=== PATIENT | female | born 1950 | race Caucasian/White ===

== ENCOUNTER 2021-09-09 12:19 | Inpatient (IN) | payer MEDICARE, SELFPAY ==
--- NOTE | 2021-09-09 | ECG_ITS ---
Test Reason : MED CLEARANCE Blood Pressure : / mmHG Vent. Rate : 082 BPM Atrial Rate : 082 BPM P-R Int : 132 ms QRS Dur : 092 ms QT Int : 386 ms P-R-T Axes : 053 055 029 degrees QTc Int : 450 ms Normal sinus rhythm Normal ECG No significant changes seen Referred By: Emmy Euceda Electronically Signed By:LÓPEZ NARVAEZ MD
--- NOTE | ~2021-09-09 | XR_ITS ---
EXAMINATION: XR CHEST CLINICAL INFORMATION: Leukocytosis. COMPARISON: None available. TECHNIQUE: PA view of the chest was obtained. FINDINGS: Normal appearance of the cardiomediastinal silhouette. Clear lungs. There is blunting of the right costophrenic angle which may be due to pleural thickening or trace pleural effusion. No pneumothorax. No acute osseous abnormalities. XR/XR chest 1V IMPRESSION: There is blunting of the right costophrenic angle which may be due to pleural thickening or trace pleural effusion with otherwise clear lungs.
--- NOTE | ~2021-09-09 | CT_ITS ---
EXAMINATION: CT SINUS WITHOUT CONTRAST CLINICAL INFORMATION: Sinus pain. Rule out infection. COMPARISON: None TECHNIQUE: Axial images through the paranasal sinuses. Sagittal and coronal reconstructions on the technologist workstation were performed. This CT examination was performed using dose optimization techniques as appropriate, variously including the following: *Automated exposure control *Adjustment of mA and/or kV according to patient size (this includes techniques or standardized protocols for targeted exams where dose is matched to indication/reason for exam; i.e. extremities or head) *Use of iterative reconstruction technique DLP: 94 mGy-cm FINDINGS: The paranasal sinuses are well aerated and clear. No soft tissue opacification or air-fluid level to suggest sinusitis is seen. The ostiomeatal complexes are patent bilaterally. The nasal septum is deviated to the left. There are mild degenerative changes at the temporomandibular joints. The mastoid air cells and middle ears are clear. The orbits are normal appearing. Visualized intracranial structures are normal. CT/CT sinus wo con IMPRESSION: Clear paranasal sinuses. No evidence of sinusitis.
[2021-09-09 12:23] VITALS: BP 186/106; PULSE 87; RESP 16; TEMP 36.6; O2SAT 100; BMI 23.6
--- NOTE | 2021-09-09 14:03 | ED_ITS ---
HPI - Psych General Chief Complaint: Psychiatric Symptoms Stated Complaint: Crisis Time Seen by Provider: 09/09/21 13:48 Source: patient Mode of arrival: ambulatory History of Present Illness HPI Narrative: 70-year-old female with a past medical history of bipolar, presenting to the ED with increased anxiety and depression with suicidal id eations, increasing thoughts of not wanting to live x1 month. Reports about 1 month ago psychiatrist decrease lithium, denies other medication changes. Last inpatient psychiatric admission 12 years ago. Denies suicidal plan or homicidal ideations. Reports diarrhea/shakiness and decreased appetite. Denies fever, chills, cough, chest pain, shortness of breath, abdominal pain, nausea/vomiting Related Data Home Medications Medication Instructions Recorded Confirmed diazepam 2 mg tablet 1 tab PO BID 09/09/21 estradiol 10 mcg vaginal tablet 1 tab VAGINAL 2XW 09/09/21 (Yuvafem) fluticasone propionate 50 2 spray INTRANASAL DAILY 09/09/21 mcg/actuation nasal spray,suspension lisinopril 10 mg tablet 1 tab PO DAILY 09/09/21 lithium carbonate 150 mg capsule 150 mg PO BEDTIME 09/09/21 lithium carbonate 300 mg capsule 300 mg PO BEDTIME 09/09/21 methylphenidate HCl 10 mg tablet 1 tab PO TID 09/09/21 quetiapine 25 mg tablet 1 tab PO BEDTIME 09/09/21 trazodone 50 mg tablet 1 tab PO BEDTIME 09/09/21 Allergies Allergy/AdvReac Type Severity Reaction Status Date / Time No Known Allergies Allergy Unverified 08/02/20 16:46 Review of Systems Review of Systems: Constitutional: No Fever, + Chills, No Night Sweats, No Fatigue, No Malaise ENT/Mouth: No Ear Pain, No Nasal Congestion, No sore throat, No Swallowing Difficulty Eyes: No Eye Pain Cardiovascular: No Chest Pain, No SOB Respiratory: No Cough, No Dyspnea Gastrointestinal: No Nausea, No Vomiting, + Diarrhea, No Constipation, No Abdominal pain Genitourinary: No Dysuria, No Urinary Frequency, No Hematuria Musculoskeletal: No joint pain, No Myalgias, No Joint Swelling Skin: No Skin Lesions, No rash Neuro: No Weakness, No Numbness, No Headache Psych: + Anxiety, + Depression, + SI, No HI/AH/VH, No Social Issues Yes all other systems are reviewed and are negative [facility] Past Medical History Attestation statement: The following information was validated with the patient. Social History Social History Advance Directives: No Advance Directives Information Provided: Yes Physical Exam Vital Signs: Vital Signs: Last Vital Signs Temp 98.6 F 09/09/21 17:24 Pulse 89 09/09/21 17:24 Resp 19 09/09/21 17:24 BP 198/110 H 09/09/21 17:24 Pulse Ox 96 09/09/21 17:24 Body Mass Index 23.6 Const: Other: Tearful General: cooperative, healthy appearing, no acute distress and anxious Orientation/consciousness: patient oriented x3 Limitations: no limitations HENMT: Head: Yes normal to inspection and Yes atraumatic Ears: hearing grossly normal bilaterally General nose exam: Normal external nose present Face and sinus: Yes normal facial exam Eyes: General: appearance normal, both eyes and all related structures EOM: EOMs intact bilaterally Neck: Neck: Yes normal visual inspection and Yes no meningeal signs Resp: Effort & Inspection: normal respiratory effort Auscultation: clear to auscultation bilaterally, no crackles, no rales, no rhonchi and no wheezes Cardio: Rate: regular rate Heart sounds: S1 normal heart sound present and S2 normal heart sound present GI: Inspection: Yes normal to inspection Palpation (GI): Soft to palpation, nontender, no guarding and not rigid Skin: Rashes: no rashes Wounds: no wounds Neuro: General: patient oriented x3, tone normal and no meningeal signs Gait exam (Neuro): Normal gait present Extrem: General: Yes normal to inspection Psych: Affect: Sad affect present Attitude: cooperative Thought content: Suicidality present and no homicidality Insight: Good insight present (Psych) Judgement: Good judgement present (Psych) Course Course Course Narrative: -1715--leukocytosis of 17.1 likely reactive. Labs otherwise unremarkable, COVID-19 negative > will obtain CXR/UA to rule out infectious etiology -1737--esterase and 5-9 wbc's, will give Ceftin p.o. and obtain lactic/blood c ultures. Low suspicion for severe sepsis. Patient notably hypertensive, med reconciliation to be completed, also reports history of white coat syndrome XR chest 1V IMPRESSION: There is blunting of the right costophrenic angle which may be due to pleural thickening or trace pleural effusion with otherwise clear lungs. > will obtain dry CT chest for further eval -1800--ED care transferred to [facility] pending lactic/blood cultures, BP monitoring and Care team evaluation MDM - Psych MDM Narrative Medical decision making narrative: 70-year-old female with a past medical his tory of bipolar, presenting to the ED with increased anxiety and depression with suicidal ideations, increasing thoughts of not wanting to live x1 month. Reports about 1 month ago psychiatrist decrease lithium, denies other medication changes. On exam hypertensive, anxious, tearful, expressing passive suicidal ideations, exam otherwise nonfocal. Plan: Labs, LINDA, Care Team consult, anticipated admission Medical Records Attestation: I reviewed the patient's medical records. Lab Data Attestation: I reviewed the patient's lab results. Result diagrams: 09/09/21 14:45 09/09/21 14:45 Labs: Lab Results 09/09/21 09/09/21 09/09/21 Range/Units 14:45 14:45 14:45 WBC 17.1 H (4.8-10.8) X10*3/uL RBC 5.42 (4.20-5.50) X10*6/uL Hgb 16.1 H (12.0-16.0) g/dl Hct 50.0 H (37-47) % MCV 92.3 (80-98) fL MCH 29.7 (27.0-33.0) pg MCHC 32.2 (31.0-35.0) g/dl RDW 12.7 (11.0-16.0) % Plt Count 355 (160-400) X10*3/uL MPV 9.8 (9.4-12.3) fL Immature Gran % (Auto) 0.5 H (0.0-0.4) % Neut % (Auto) 88.9 H (45-73) % Lymph % (Auto) 6.2 L (20-40) % [place]ner % (Auto) 4.0 (2-11) % Eos % (Auto) 0.2 (0-4) % Baso % (Auto) 0.2 (0-2) % Lymph # (Auto) 1.1 L (1.2-4.9) X10*3/uL Bonner # (Auto) 0.7 (0.1-1.2) X10*3/uL Eos # (Auto) 0.0 (0.0-0.4) X10*3/uL Baso # (Auto) 0.0 (0.0-0.2) X10*3/uL Abs Immat Gran (auto) 0.09 H (0.00-0.03) X10*3/uL Absolute Neuts (auto) 15.2 H (2.0-8.3) X10*3/uL Absolute Nucleated RBC 0.000 (0.0-0.012) X10*3/uL Nucleated RBC % (auto) 0.0 (0.0-0.2) /100WBC Sodium 141 (135-145) mmol/L Potassium 4.8 (3.3-5.1) mmol/L Chloride 107 (96-108) mmol/L Carbon Dioxide 26 (22-29) mmol/L Anion Gap 13 (12-20) BUN 12 (9-16) mg/dL Creatinine 0.83 (0.5-1.4) mg/dL Estim Creat Clear Calc 46.8 Estimated GFR > 60 Random Glucose 119 H (60-115) mg/dL Calcium 10.5 H (8.4-10.2) mg/dL Magnesium 2.4 (1.6-2.6) mg/dL Total Bilirubin 0.3 (0.0-1.0) mg/dL Direct Bilirubin < 0.2 (0.0-0.5) mg/dL AST 19 (5-31) U/L ALT 21 (0-31) U/L Alkaline Phosphatase 119 H (39-117) U/L Total Protein 6.9 (6.5-8.0) g/dL Albumin 4.3 (3.5-5.0) g/dL Urine Color Urine Appearance Urine pH (5.0-8.0) Ur Specific [place] (1.005-1.025) Urine Protein (NEG-TRACE) MG/DL Urine Glucose (UA) (NEG) MG/DL Urine Ketones (NEG) MG/DL Urine Blood (NEG) Urine Nitrite (NEG) Ur Leukocyte Esterase (NEG) Urine RBC (0) /HPF Urine WBC (0-4) /HPF Ur Squamous Epith Cells /LPF Urine Bacteria /LPF Urine Opiates Screen (Not Detect) Urine Fentanyl Screen (Not Detect) Ur Barbiturates Screen (Not Detect) Ur Phencyclidine Scrn (Not Detect) Ur Amphetamines Screen (Not Detect) U Benzodiazepines Scrn (Not Detect) [place] 0.52 L (0.60-1.20) mmol/L Urine Cocaine Screen (Not Detect) U Marijuana (THC) Screen (Not Detect) COVID-19 (REE) (Negative) COVID-19 Clin Com 09/09/21 09/09/21 09/09/21 Range/Units 14:45 16:56 16:56 WBC (4.8-10.8) X10*3/uL RBC (4.20-5.50) X10*6/uL Hgb (12.0-16.0) g/dl Hct (37-47) % MCV (80-98) fL MCH (27.0-33.0) pg MCHC (31.0-35.0) g/dl RDW (11.0-16.0) % Plt Count (160-400) X10*3/uL MPV (9.4-12.3) fL Immature Gran % (Auto) (0.0-0.4) % Neut % (Auto) (45-73) % Lymph % (Auto) (20-40) % [place]ner % (Auto) (2-11) % Eos % (Auto) (0-4) % Baso % (Auto) (0-2) % Lymph # (Auto) (1.2-4.9) X10*3/uL [place]ner # (Auto) (0.1-1.2) X10*3/uL Eos # (Auto) (0.0-0.4) X10*3/uL Baso # (Auto) (0.0-0.2) X10*3/uL Abs Immat Gran (auto) (0.00-0.03) X10*3/uL Absolute Neuts (auto) (2.0-8.3) X10*3/uL Absolute Nucleated RBC (0.0-0.012) X10*3/uL Nucleated RBC % (auto) (0.0-0.2) /100WBC Sodium (135-145) mmol/L Potassium (3.3-5.1) mmol/L Chloride (96-108) mmol/L Carbon Dioxide (22-29) mmol/L Anion Gap (12-20) BUN (9-16) mg/dL Creatinine (0.5-1.4) mg/dL Estim Creat Clear Calc Estimated GFR Random Glucose (60-115) mg/dL Calcium (8.4-10.2) mg/dL Magnesium (1.6-2.6) mg/dL Total Bilirubin (0.0-1.0) mg/dL Direct Bilirubin (0.0-0.5) mg/dL AST (5-31) U/L ALT (0-31) U/L Alkaline Phosphatase (39-117) U/L Total Protein (6.5-8.0) g/dL Albumin (3.5-5.0) g/dL Urine Color YELLOW Urine Appearance CLEAR Urine pH 6.0 (5.0-8.0) Ur Specific [place] 1.015 (1.005-1.025) Urine Protein NEG (NEG-TRACE) MG/DL Urine Glucose (UA) NEG (NEG) MG/DL Urine Ketones NEG (NEG) MG/DL Urine Blood NEG (NEG) Urine Nitrite NEG (NEG) Ur Leukocyte Esterase TRACE H (NEG) Urine RBC 1-4 (0) /HPF Urine WBC 5-9 H (0-4) /HPF Ur Squamous Epith Cells 1+ /LPF Urine Bacteria 1+ /LPF Urine Opiates Screen Not Detected (Not Detect) Urine Fentanyl Screen Not Detected (Not Detect) Ur Barbiturates Screen Not Detected (Not Detect) Ur Phencyclidine Scrn Not Detected (Not Detect) Ur Amphetamines Screen Not Detected (Not Detect) U Benzodiazepines Scrn POSITIVE H (Not Detect) [place] (0.60-1.20) mmol/L Urine Cocaine Screen Not Detected (Not Detect) U Marijuana (THC) Screen POSITIVE H (Not Detect) COVID-19 (REE) Negative (Negative) COVID-19 Clin Com See Note Discharge Plan Discharge Clinical Impression: Suicidal ideation, Acute anxiety Depression Qualifiers: Depression Type: unspecified Qualified Code(s): F32.A - Depression, unspecified Prescriptions: No Action quetiapine 25 mg tablet 1 tab PO BEDTIME RF: 0 trazodone 50 mg tablet 1 tab PO BEDTIME RF: 0 methylphenidate HCl 10 mg tablet 1 tab PO TID RF: 0 lithium carbonate 150 mg capsule 150 mg PO BEDTIME RF: 0 diazepam 2 mg tablet 1 tab PO BID RF: 0 lithium carbonate 300 mg capsule 300 mg PO BEDTIME RF: 0 lisinopril 10 mg tablet 1 tab PO DAILY RF: 0 fluticasone propionate 50 mcg/actuation spray,suspension 2 spray intranasal DAILY RF: 0 estradiol [Yuvafem] 10 mcg tablet 1 tab vaginal 2XW RF: 0
--- NOTE | 2021-09-09 14:19 | PC.NURSE ---
patient reports an agitated depression which she first encountered 12 years ago. states consistent on current meds, says this change occurred about a month ago when she also had her lithium decreased. reports poor sleep during that time. reports thoughts of passive SI (no plan/method) states uses [facility] on [facility] patient stated stopped/reduced taking ritalin. reports racing thoughts.
[2021-09-09 14:50] LABS: MANUAL DIFF FLAG NO
[2021-09-09 14:54] LABS: Basophils Percent Auto 0.2 % (0-2); Eosinophils Percent Auto 0.2 % (0-4); Hemoglobin 16.1 g/dl (12.0-16.0); Imm Gran Abs Auto 0.09 X10*3/uL (0.00-0.03); Imm Gran Pct Auto 0.5 % (0.0-0.4); Lymphocytes Absolute Auto 1.1 X10*3/uL (1.2-4.9); Lymphocytes Percent Auto 6.2 % (20-40); Mean Corpuscular HGB Conc 32.2 g/dl (31.0-35.0); Mean Corpuscular Hemoglobin 29.7 pg (27.0-33.0); Mean Corpuscular Volume 92.3 fL (80-98); Mean Platelet Volume 9.8 fL (9.4-12.3); Monocytes Absolute Auto 0.7 X10*3/uL (0.1-1.2); Neutrophils Absolute Auto 15.2 X10*3/uL (2.0-8.3); Neutrophils Percent Auto 88.9 % (45-73); Platelet Count 355 X10*3/uL (160-400); Red Blood Count 5.42 X10*6/uL (4.20-5.50); Red Cell Distribution Width 12.7 % (11.0-16.0); White Blood Count 17.1 X10*3/uL (4.8-10.8)
[2021-09-09 15:02] LABS: Lithium 0.52 mmol/L (0.60-1.20)
[2021-09-09 15:09] LABS: COVID-19 Test Negative (Negative); IDNOW Serial# 9DD0AD1C
[2021-09-09 15:10] LABS: Alanine Aminotransferase 21 U/L (0-31); Albumin Level 4.3 g/dL (3.5-5.0); Alkaline Phosphatase 119 U/L (39-117); Anion Gap 13 (12-20); Aspartate Amino Transferase 19 U/L (5-31); Bilirubin Direct < 0.2 mg/dL (0.0-0.5); Bilirubin Total 0.3 mg/dL (0.0-1.0); Blood Urea Nitrogen 12 mg/dL (9-16); Calcium 10.5 mg/dL (8.4-10.2); Carbon Dioxide 26 mmol/L (22-29); Chloride 107 mmol/L (96-108); Creatinine Clr Calc Pharmacy 46.8; Estimated Glomerular Filt Rate > 60; Glucose Random 119 mg/dL (60-115); Magnesium 2.4 mg/dL (1.6-2.6); Potassium 4.8 mmol/L (3.3-5.1); Sodium 141 mmol/L (135-145); Total Protein 6.9 g/dL (6.5-8.0)
[2021-09-09 17:17] LABS: Amphetamine Screen Urine Not Detected (Not Detect); Appearance Urine CLEAR; Barbiturates, Urine Not Detected (Not Detect); Benzodiazepines Screen Urine POSITIVE (Not Detect); Cannabinoid Screen Urine POSITIVE (Not Detect); Cocaine Screen Urine Not Detected (Not Detect); Color Urine YELLOW; Fentanyl, urine Not Detected (Not Detect); Glucose Urine UA NEG (NEG); Leukocyte Esterase Urine TRACE (NEG); Nitrite Urine NEG (NEG); Opiate Screen Urine Not Detected (Not Detect); Phencyclidine Screen Urine Not Detected (Not Detect); Specific Gravity - Urine 1.015 (1.005-1.025); UACC Culture Trigger YES; Urine Blood NEG (NEG); Urine Ketones NEG (NEG); Urine Protein NEG (NEG-TRACE)
[2021-09-09 17:24] VITALS: BP 198/110; PULSE 89; RESP 19; TEMP 37; O2SAT 96
[2021-09-09 17:25] LABS: UACC CULT YES
[2021-09-09 17:26] LABS: Bacteria Urine 1+ /LPF; Squamous Epithelial Cell Urine 1+ /LPF
--- NOTE | 2021-09-09 18:24 | PHA.MEDREC ---
Pharmacy Consult ? Medication Reconciliation Pharmacy has completed the medication reconciliation. Patient reports no longer taking methylphedinate because it was making her have anxiety depression. She reports she stopped taking trazodone because it caused bad dreams. Her dose of lithium was increase from 300 mg to 450 mg. She reports taking Prosac. It was last filled in 10/2020 for 3 tablets a day. If she was only take one tab it is possible for her to still have the medications therefore she is no aderent. Maggie Marrero, PharmD
[2021-09-09 18:26] VITALS: BP 198/110; PULSE 97
[2021-09-09] MEDS: lisinopriL 10 MG TABLET PO (18:26)
[2021-09-09] MEDS: Acetaminophen 325 MG TABLET 975 MG PO (18:35)
[2021-09-09] MEDS: diazePAM 2 MG TABLET PO (18:35)
[2021-09-09 18:40] LABS: Lactic Acid 1.1 mmol/L (0.5-2.0)
--- NOTE | 2021-09-09 21:16 | HO.PSYADMNOT ---
Documented by User: Aileen Villareal NP 09/10/21 05:53 HPI Date of Service: 09/09/21 Chief Complaint: Crisis Sources of Information: patient interviewed, chart reviewed and crisis/core team assessment reviewed HPI Subjective Notes: [place] Warning and Conditional Voluntary Healthcare Proxy: No Guardianship: No Medical Problems Affecting Mental Status: No Narrative: Pt is a 70 year old female who carries a diagnosis of bipolar II disorder, ADHD, presenting to the ED on 09/10/21 with increased anxiety and depression, SI x 1 month, low appetite, and hyposomnia. Precipitating factors include that her lithium was decreased about a month ago in context of CKD and HTN, on lisinopril (may increase blood levels of lithium). Per U/A, pt found to have UTI, started on ceftin. [place] level 0.52.? I evaluated the pt this evening and upon inquiry she reports poor sleep and increased anxiety, feels ?nick shaky.? Says she was recently started on seroquel, prior to that was using trazodone but reports it stopped working due to exacerbation in sx. She was also taking methylphenidate but says she felt agitated and ?I wasn?t feeling good, it was not holding me up,? felt jittery and stopped taking it.?Pt reports she currently feels safe on the unit and denies SI or urges to self harm upon inquiry. Past Psychiatric History: Past meds: trazodone, methylphenidate -Remote hx of IPLOC 12 yrs ago. Medical Evaluation Reviewed: Yes [facility] Narrative: -Pt reports hx of hypertension, chronic kidney disease Social History: -Lives with her . Volunteers at [employer]. Substance History: -Cannabis: uses 3-4 nights a week, uses edibles or vapes from dispensary. Diagnostics Vital Signs (24Hr): Vital Signs - 24 hr 09/09/21 12:23 09/09/21 17:24 09/09/21 18:26 Temperature 98 F 98.6 F Pulse Rate 87 89 97 Respiratory Rate 16 19 Blood Pressure 186/106 H 198/110 H 198/110 H Pulse Oximetry 100 96 Body Mass Index 23.6 Labs Results: 09/09/21 14:45 09/09/21 14:45 Labs: Laboratory Results - last 48 hr 09/09/21 09/09/21 09/09/21 14:45 14:45 14:45 WBC 17.1 H RBC 5.42 Hgb 16.1 H Hct 50.0 H MCV 92.3 MCH 29.7 MCHC 32.2 RDW 12.7 Plt Count 355 MPV 9.8 Immature Gran % (Auto) 0.5 H Neut % (Auto) 88.9 H Lymph % (Auto) 6.2 L [place] % (Auto) 4.0 Eos % (Auto) 0.2 Baso % (Auto) 0.2 Lymph # (Auto) 1.1 L [place] # (Auto) 0.7 Eos # (Auto) 0.0 Baso # (Auto) 0.0 Abs Immat Gran (auto) 0.09 H Absolute Neuts (auto) 15.2 H Absolute Nucleated RBC 0.000 Nucleated RBC % (auto) 0.0 Sodium 141 Potassium 4.8 Chloride 107 Carbon Dioxide 26 Anion Gap 13 BUN 12 Creatinine 0.83 Estim Creat Clear Calc 46.8 Estimated GFR > 60 Random Glucose 119 H Lactic Acid Calcium 10.5 H Magnesium 2.4 Total Bilirubin 0.3 Direct Bilirubin < 0.2 AST 19 ALT 21 Alkaline Phosphatase 119 H Total Protein 6.9 Albumin 4.3 Urine Color Urine Appearance Urine pH Ur Specific [place] Urine Protein Urine Glucose (UA) Urine Ketones Urine Blood Urine Nitrite Ur Leukocyte Esterase Urine RBC Urine WBC Ur Squamous Epith Cells Urine Bacteria Urine Opiates Screen Urine Fentanyl Screen Ur Barbiturates Screen Ur Phencyclidine Scrn Ur Amphetamines Screen U Benzodiazepines Scrn [place] 0.52 L Urine Cocaine Screen U Marijuana (THC) Screen COVID-19 (REE) COVID-19 Clin Com 09/09/21 09/09/21 09/09/21 14:45 16:56 16:56 WBC RBC Hgb Hct MCV MCH MCHC RDW Plt Count MPV Immature Gran % (Auto) Neut % (Auto) Lymph % (Auto) [place] % (Auto) Eos % (Auto) Baso % (Auto) Lymph # (Auto) [place] # (Auto) Eos # (Auto) Baso # (Auto) Abs Immat Gran (auto) Absolute Neuts (auto) Absolute Nucleated RBC Nucleated RBC % (auto) Sodium Potassium Chloride Carbon Dioxide Anion Gap BUN Creatinine Estim Creat Clear Calc Estimated GFR Random Glucose Lactic Acid Calcium Magnesium Total Bilirubin Direct Bilirubin AST ALT Alkaline Phosphatase Total Protein Albumin Urine Color YELLOW Urine Appearance CLEAR Urine pH 6.0 Ur Specific [place] 1.015 Urine Protein NEG Urine Glucose (UA) NEG Urine Ketones NEG Urine Blood NEG Urine Nitrite NEG Ur Leukocyte Esterase TRACE H Urine RBC 1-4 Urine WBC 5-9 H Ur Squamous Epith Cells 1+ Urine Bacteria 1+ Urine Opiates Screen Not Detected Urine Fentanyl Screen Not Detected Ur Barbiturates Screen Not Detected Ur Phencyclidine Scrn Not Detected Ur Amphetamines Screen Not Detected U Benzodiazepines Scrn POSITIVE H [place] Urine Cocaine Screen Not Detected U Marijuana (THC) Screen POSITIVE H COVID-19 (REE) Negative COVID-19 Clin Com See Note 09/09/21 18:23 WBC RBC Hgb Hct MCV MCH MCHC RDW Plt Count MPV Immature Gran % (Auto) Neut % (Auto) Lymph % (Auto) [place] % (Auto) Eos % (Auto) Baso % (Auto) Lymph # (Auto) [place] # (Auto) Eos # (Auto) Baso # (Auto) Abs Immat Gran (auto) Absolute Neuts (auto) Absolute Nucleated RBC Nucleated RBC % (auto) Sodium Potassium Chloride Carbon Dioxide Anion Gap BUN Creatinine Estim Creat Clear Calc Estimated GFR Random Glucose Lactic Acid 1.1 Calcium Magnesium Total Bilirubin Direct Bilirubin AST ALT Alkaline Phosphatase Total Protein Albumin Urine Color Urine Appearance Urine pH Ur Specific [place] Urine Protein Urine Glucose (UA) Urine Ketones Urine Blood Urine Nitrite Ur Leukocyte Esterase Urine RBC Urine WBC Ur Squamous Epith Cells Urine Bacteria Urine Opiates Screen Urine Fentanyl Screen Ur Barbiturates Screen Ur Phencyclidine Scrn Ur Amphetamines Screen U Benzodiazepines Scrn [place] Urine Cocaine Screen U Marijuana (THC) Screen COVID-19 (REE) COVID-19 Clin Com Imaging Radiology Impressions: ITS Impressions Chest X-Ray 09/09/21 17:15 IMPRESSION: There is blunting of the right costophrenic angle which may be due to pleural thickening or trace pleural effusion with otherwise clear lungs. Meds/Allergies Meds Home Medications Acetaminophen (Acetaminophen 325 Mg Tablet) 650 mg PO Q6H PRN PRN Reason: Headache/Pain Mild Scale (1-3) Al Hydroxide/Mg Hydroxide (Magnesium Hydrox/Alum Hydrox 30 Ml Oral.Susp) 30 ml PO Q6H PRN PRN Reason: Heartburn/Nausea Ascorbic Acid (Ascorbic Acid 500 Mg Tablet) 2,000 mg PO DAILY [facility] Last Admin: 09/10/21 08:30 Dose: 2,000 mg Documented by: Benzocaine (Throat Lozenge, Medicated Lozenge) 1 lozenge MUCOUS MEM Q2H PRN PRN Reason: Sore Throat Calcium Carbonate (Calcium Carbonate 500 Mg Tablet) 1,000 mg PO DAILY [facility] Last Admin: 09/10/21 08:31 Dose: 1,000 mg Documented by: Cefuroxime Axetil (Cefuroxime Axetil 250 Mg Tablet) 250 mg PO Q12H [facility] Stop: 09/16/21 17:59 Last Admin: 09/10/21 06:15 Dose: 250 mg Documented by: Diazepam (Diazepam 2 Mg Tablet) 2 mg PO Q6H PRN PRN Reason: anxiety Last Admin: 09/10/21 14:05 Dose: 2 mg Documented by: Diazepam (Diazepam 2 Mg Tablet) 2 mg PO BID PRN PRN Reason: Anxiety Last Admin: 09/10/21 08:29 Dose: 2 mg Documented by: Fluoxetine HCl (Fluoxetine Hcl 20 Mg Capsule) 40 mg PO DAILY [facility] Last Admin: 09/10/21 08:29 Dose: 40 mg Documented by: Fluticasone Propionate (Fluticasone Propionate Nasal 16 Gm [place]) 1 spray NOSTRIL-B BID [facility] Last Admin: 09/10/21 11:26 Dose: 1 spray Documented by: Hydroxyzine HCl (Hydroxyzine Hcl 25 Mg Tablet) 25 mg PO Q6H PRN PRN Reason: Anxiety Last Admin: 09/10/21 11:26 Dose: 25 mg Documented by: Lisinopril (Lisinopril 10 Mg Tablet) 10 mg PO DAILY [facility]; Protocol Last Admin: 09/10/21 08:31 Dose: 10 mg Documented by: [place] Carbonate ([place] Carbonate 300 Mg Tablet) 150 mg PO BEDTIME [facility] [place] Carbonate ([place] Carbonate 300 Mg Capsule) 300 mg PO BEDTIME [facility] Last Admin: 09/09/21 23:48 Dose: 300 mg Documented by: Magnesium Hydroxide (Milk Of Magnesia 30 Ml Oral.Susp) 30 ml PO DAILY PRN PRN Reason: Constipation Non-Formulary Medication (Estradiol [Yuvafem]) 1 tab VAGINAL WESA [facility] Quetiapine Fumarate (Quetiapine Fumarate 25 Mg Tablet) 25 mg PO BEDTIME [facility] Last Admin: 09/09/21 23:48 Dose: 25 mg Documented by: Trazodone HCl (Trazodone Hcl 50 Mg Tablet) 50 mg PO BEDTIME PRN PRN Reason: Insomnia Vitamin E (Vitamin E (Dl,Tocopheryl Acet) 180 Mg (400 Unit) Capsule) 180 mg PO DAILY [facility] Last Admin: 09/10/21 08:30 Dose: 180 mg Documented by: Allergies Allergies Allergy/AdvReac Type Severity Reaction Status Date / Time No Known Allergies Allergy Unverified 08/02/20 16:46 Mental Status Exam Mental Status Exam Narrative: A&O. Casual dress, good hygiene, normal body habitus. Good eye contact, attentive. No Tics or Tremors. No abnormal involuntary movements. Calm, somewhat guarded and difficulty engaging due to increased anxiety. Non-pressured speech, spontaneous with regular rate and rhythm, normal volume and prosody. No prolonged speech latency or dysarthria. Mood is ?anxious, tired,? affect is tired, nervous. Denies SI/SIB/HI upon inquiry. Denies A/VH or delusional thought content. Thoughts are coherent, organized. No known cognitive or memory impairment. Insight/ Judgment fair and adequate. Assessment & Plan Assessment & Plan (1) Bipolar II disorder: Status: Acute Code(s): F31.81 - Bipolar II disorder (2) ADHD (attention deficit hyperactivity disorder): Status: Acute Code(s): F90.9 - Attention-deficit hyperactivity disorder, unspecified type Assessment and Plan: Pt is a 70 year old female who carries a diagnosis of bipolar II disorder, ADHD, presenting to the ED on 09/10/21 with increased anxiety and depression, SI x 1 month, low appetite, and hyposomnia. Precipitating factors include that her lithium was decreased about a month ago. Pt is currently presenting with sx of hyposomnia, anxious affect, agitation, low appetite, perseverative thought content, and feelings of hopelessness. Plan: Pt does not want medication changes this evening, utilized her PRN diazepam and is hoping to fall asleep. She expressed interest in increasing lithium to target sx of agitated depression, will defer to primary psych team in the morning. Monitor response to medications. Monitor for safety in the milieu. Discharge on stabilization. Patient seen. Chart reviewed. Discussed with team. Obtain collateral contact info?as needed Reason for continued inpatient stay Substantial Risk for: harm to self, rapid decompensation and med/psych decompensation Documented by User: Yovany Shearer MD 09/10/21 15:26 HPI Chief Complaint: Crisis Diagnostics Labs Results: 09/09/21 14:45 09/09/21 14:45 Meds/Allergies Meds Home Medications Acetaminophen (Acetaminophen 325 Mg Tablet) 650 mg PO Q6H PRN PRN Reason: Headache/Pain Mild Scale (1-3) Al Hydroxide/Mg Hydroxide (Magnesium Hydrox/Alum Hydrox 30 Ml Oral.Susp) 30 ml PO Q6H PRN PRN Reason: Heartburn/Nausea Ascorbic Acid (Ascorbic Acid 500 Mg Tablet) 2,000 mg PO DAILY [facility] Last Admin: 09/10/21 08:30 Dose: 2,000 mg Documented by: Benzocaine (Throat Lozenge, Medicated Lozenge) 1 lozenge MUCOUS MEM Q2H PRN PRN Reason: Sore Throat Calcium Carbonate (Calcium Carbonate 500 Mg Tablet) 1,000 mg PO DAILY [facility] Last Admin: 09/10/21 08:31 Dose: 1,000 mg Documented by: Cefuroxime Axetil (Cefuroxime Axetil 250 Mg Tablet) 250 mg PO Q12H [facility] Stop: 09/16/21 17:59 Last Admin: 09/10/21 06:15 Dose: 250 mg Documented by: Diazepam (Diazepam 2 Mg Tablet) 2 mg PO Q6H PRN PRN Reason: anxiety Last Admin: 09/10/21 14:05 Dose: 2 mg Documented by: Diazepam (Diazepam 2 Mg Tablet) 2 mg PO BID PRN PRN Reason: Anxiety Last Admin: 09/10/21 08:29 Dose: 2 mg Documented by: Fluoxetine HCl (Fluoxetine Hcl 20 Mg Capsule) 40 mg PO DAILY [facility] Last Admin: 09/10/21 08:29 Dose: 40 mg Documented by: Fluticasone Propionate (Fluticasone Propionate Nasal 16 Gm [place]) 1 spray NOSTRIL-B BID [facility] Last Admin: 09/10/21 11:26 Dose: 1 spray Documented by: Hydroxyzine HCl (Hydroxyzine Hcl 25 Mg Tablet) 25 mg PO Q6H PRN PRN Reason: Anxiety Last Admin: 09/10/21 11:26 Dose: 25 mg Documented by: Lisinopril (Lisinopril 10 Mg Tablet) 10 mg PO DAILY [facility]; Protocol Last Admin: 09/10/21 08:31 Dose: 10 mg Documented by: [place] Carbonate ([place] Carbonate 300 Mg Tablet) 150 mg PO BEDTIME [facility] [place] Carbonate ([place] Carbonate 300 Mg Capsule) 300 mg PO BEDTIME [facility] Last Admin: 09/09/21 23:48 Dose: 300 mg Documented by: Magnesium Hydroxide (Milk Of Magnesia 30 Ml Oral.Susp) 30 ml PO DAILY PRN PRN Reason: Constipation Non-Formulary Medication (Estradiol [Yuvafem]) 1 tab VAGINAL WESA [facility] Quetiapine Fumarate (Quetiapine Fumarate 25 Mg Tablet) 25 mg PO BEDTIME [facility] Last Admin: 09/09/21 23:48 Dose: 25 mg Documented by: Trazodone HCl (Trazodone Hcl 50 Mg Tablet) 50 mg PO BEDTIME PRN PRN Reason: Insomnia Vitamin E (Vitamin E (Dl,Tocopheryl Acet) 180 Mg (400 Unit) Capsule) 180 mg PO DAILY [facility] Last Admin: 09/10/21 08:30 Dose: 180 mg Documented by: Allergies Allergies Allergy/AdvReac Type Severity Reaction Status Date / Time No Known Allergies Allergy Unverified 08/02/20 16:46 Assessment & Plan Assessment & Plan (1) Bipolar II disorder: Status: Acute Code(s): F31.81 - Bipolar II disorder (2) ADHD (attention deficit hyperactivity disorder): Status: Acute Code(s): F90.9 - Attention-deficit hyperactivity disorder, unspecified type Patient educated on: diagnosis and medication risk/benefits Informed Consent: understands
[2021-09-09 22:56] VITALS: BMI 21.3
[2021-09-09 23:44] VITALS: BP 227/105; PULSE 75; RESP 18; TEMP 37.3; O2SAT 93
[2021-09-09] MEDS: QUEtiapine Fumarate 25 MG TABLET PO (23:48)
[2021-09-09] MEDS: Lithium Carbonate 300 MG CAPSULE PO (23:48)
[2021-09-10 06:00] VITALS: BP 219/93; PULSE 92; RESP 14; TEMP 36.4; O2SAT 96
[2021-09-10] MEDS: FLUoxetine HCl 20 MG CAPSULE 40 MG PO (08:29)
[2021-09-10] MEDS: diazePAM 2 MG TABLET PO ×3 (08:29→19:06)
[2021-09-10] MEDS: Ascorbic Acid 500 MG TABLET 2000 MG PO (08:30)
[2021-09-10] MEDS: Vitamin E (Dl,Tocopheryl Acet) 180 MG (400 UNIT) CAPSULE PO (08:30)
[2021-09-10 08:31] VITALS: BP 219/93; PULSE 92
[2021-09-10] MEDS: lisinopriL 10 MG TABLET PO (08:31)
[2021-09-10] MEDS: Fluticasone Propionate Nasal 16 GM SPRAY 1 SPRAY NOSTRIL-B ×2 (11:26→21:28)
[2021-09-10] MEDS: hydrOXYzine HCL 25 MG TABLET PO (11:26)
--- NOTE | 2021-09-10 15:26 | HO.PSYCHPN ---
Subjective Subjective Date of Service: 09/10/21 Reason For Visit: severe depression and agitation Subjective Notes: Conditional Voluntary Guardianship: No Medical Problems Affecting Mental Status: Yes Interim History: pt with severe anxiety irritability and racing thoughts has been preoccupied with physical symptoms Medication Compliance: Yes Side effects from medications: No Review of Systems Review of Systems increase mucous throat clearing Constitutional: Reports as per HPI, Reports difficulty sleeping and Reports excessive sweating Comments: Endocrine: Reports excessive sweating Mental Status Exam Mental Status Exam Narrative: The patient is casually dressed somewhat diaphoretic anxious in appearance. She is ruminating that she cannot stand has she is feeling at times wishes she were denies plan or intent in this setting. No hallucinations or delusional material but constant feeling that something is wrong with her constant throat clearing and somatic preoccupation. Mood is severely depressed anxious periods of restlessness. Poor sleep impulse control intact in this setting but quite distraught impaired of not in lock setting periods of intense hopelessness and helplessness she is asking for help impaired concentration Diagnostics Vital Signs (24Hr): Vital Signs - 24 hr 09/09/21 17:24 09/09/21 18:26 09/09/21 23:44 Temperature 98.6 F 99.2 F Pulse Rate 89 97 75 Respiratory Rate 19 18 Blood Pressure 198/110 H 198/110 H 227/105 H Pulse Oximetry 96 93 09/10/21 06:00 09/10/21 08:31 Temperature 97.6 F Pulse Rate 92 92 Respiratory Rate 14 Blood Pressure 219/93 H 219/93 H Pulse Oximetry 96 Body Mass Index 21.3 Labs Results: 09/09/21 14:45 09/09/21 14:45 Labs: Laboratory Results - last 48 hr 09/09/21 09/09/21 09/09/21 14:45 14:45 14:45 WBC 17.1 H RBC 5.42 Hgb 16.1 H Hct 50.0 H MCV 92.3 MCH 29.7 MCHC 32.2 RDW 12.7 Plt Count 355 MPV 9.8 Immature Gran % (Auto) 0.5 H Neut % (Auto) 88.9 H Lymph % (Auto) 6.2 L [place] % (Auto) 4.0 Eos % (Auto) 0.2 Baso % (Auto) 0.2 Lymph # (Auto) 1.1 L [place] # (Auto) 0.7 Eos # (Auto) 0.0 Baso # (Auto) 0.0 Abs Immat Gran (auto) 0.09 H Absolute Neuts (auto) 15.2 H Absolute Nucleated RBC 0.000 Nucleated RBC % (auto) 0.0 Sodium 141 Potassium 4.8 Chloride 107 Carbon Dioxide 26 Anion Gap 13 BUN 12 Creatinine 0.83 Estim Creat Clear Calc 46.8 Estimated GFR > 60 Random Glucose 119 H Lactic Acid Calcium 10.5 H Magnesium 2.4 Total Bilirubin 0.3 Direct Bilirubin < 0.2 AST 19 ALT 21 Alkaline Phosphatase 119 H Total Protein 6.9 Albumin 4.3 Urine Color Urine Appearance Urine pH Ur Specific [place] Urine Protein Urine Glucose (UA) Urine Ketones Urine Blood Urine Nitrite Ur Leukocyte Esterase Urine RBC Urine WBC Ur Squamous Epith Cells Urine Bacteria Urine Opiates Screen Urine Fentanyl Screen Ur Barbiturates Screen Ur Phencyclidine Scrn Ur Amphetamines Screen U Benzodiazepines Scrn [place] 0.52 L Urine Cocaine Screen U Marijuana (THC) Screen COVID-19 (REE) COVID-19 [employer] Com 09/09/21 09/09/21 09/09/21 14:45 16:56 16:56 WBC RBC Hgb Hct MCV MCH MCHC RDW Plt Count MPV Immature Gran % (Auto) Neut % (Auto) Lymph % (Auto) [place] % (Auto) Eos % (Auto) Baso % (Auto) Lymph # (Auto) [place] # (Auto) Eos # (Auto) Baso # (Auto) Abs Immat Gran (auto) Absolute Neuts (auto) Absolute Nucleated RBC Nucleated RBC % (auto) Sodium Potassium Chloride Carbon Dioxide Anion Gap BUN Creatinine Estim Creat Clear Calc Estimated GFR Random Glucose Lactic Acid Calcium Magnesium Total Bilirubin Direct Bilirubin AST ALT Alkaline Phosphatase Total Protein Albumin Urine Color YELLOW Urine Appearance CLEAR Urine pH 6.0 Ur Specific [place] 1.015 Urine Protein NEG Urine Glucose (UA) NEG Urine Ketones NEG Urine Blood NEG Urine Nitrite NEG Ur Leukocyte Esterase TRACE H Urine RBC 1-4 Urine WBC 5-9 H Ur Squamous Epith Cells 1+ Urine Bacteria 1+ Urine Opiates Screen Not Detected Urine Fentanyl Screen Not Detected Ur Barbiturates Screen Not Detected Ur Phencyclidine Scrn Not Detected Ur Amphetamines Screen Not Detected U Benzodiazepines Scrn POSITIVE H [place] Urine Cocaine Screen Not Detected U Marijuana (THC) Screen POSITIVE H COVID-19 (REE) Negative COVID-19 Clin Com See Note 09/09/21 18:23 WBC RBC Hgb Hct MCV MCH MCHC RDW Plt Count MPV Immature Gran % (Auto) Neut % (Auto) Lymph % (Auto) [place] % (Auto) Eos % (Auto) Baso % (Auto) Lymph # (Auto) [place] # (Auto) Eos # (Auto) Baso # (Auto) Abs Immat Gran (auto) Absolute Neuts (auto) Absolute Nucleated RBC Nucleated RBC % (auto) Sodium Potassium Chloride Carbon Dioxide Anion Gap BUN Creatinine Estim Creat Clear Calc Estimated GFR Random Glucose Lactic Acid 1.1 Calcium Magnesium Total Bilirubin Direct Bilirubin AST ALT Alkaline Phosphatase Total Protein Albumin Urine Color Urine Appearance Urine pH Ur Specific [place] Urine Protein Urine Glucose (UA) Urine Ketones Urine Blood Urine Nitrite Ur Leukocyte Esterase Urine RBC Urine WBC Ur Squamous Epith Cells Urine Bacteria Urine Opiates Screen Urine Fentanyl Screen Ur Barbiturates Screen Ur Phencyclidine Scrn Ur Amphetamines Screen U Benzodiazepines Scrn [place] Urine Cocaine Screen U Marijuana (THC) Screen COVID-19 (REE) COVID-19 Clin Com Imaging Radiology Impressions: ITS Impressions Chest X-Ray 09/09/21 17:15 IMPRESSION: There is blunting of the right costophrenic angle which may be due to pleural thickening or trace pleural effusion with otherwise clear lungs. Medications Medications Current Medications Acetaminophen (Acetaminophen 325 Mg Tablet) 650 mg PO Q6H PRN PRN Reason: Headache/Pain Mild Scale (1-3) Al Hydroxide/Mg Hydroxide (Magnesium Hydrox/Alum Hydrox 30 Ml Oral.Susp) 30 ml PO Q6H PRN PRN Reason: Heartburn/Nausea Ascorbic Acid (Ascorbic Acid 500 Mg Tablet) 2,000 mg PO DAILY [facility] Last Admin: 09/10/21 08:30 Dose: 2,000 mg Documented by: Benzocaine (Throat Lozenge, Medicated Lozenge) 1 lozenge MUCOUS MEM Q2H PRN PRN Reason: Sore Throat Calcium Carbonate (Calcium Carbonate 500 Mg Tablet) 1,000 mg PO DAILY [facility] Last Admin: 09/10/21 08:31 Dose: 1,000 mg Documented by: Cefuroxime Axetil (Cefuroxime Axetil 250 Mg Tablet) 250 mg PO Q12H [facility] Stop: 09/16/21 17:59 Last Admin: 09/10/21 06:15 Dose: 250 mg Documented by: Diazepam (Diazepam 2 Mg Tablet) 2 mg PO Q6H PRN PRN Reason: anxiety Last Admin: 09/10/21 14:05 Dose: 2 mg Documented by: Diazepam (Diazepam 2 Mg Tablet) 2 mg PO BID PRN PRN Reason: Anxiety Last Admin: 09/10/21 08:29 Dose: 2 mg Documented by: Fluoxetine HCl (Fluoxetine Hcl 20 Mg Capsule) 40 mg PO DAILY [facility] Last Admin: 09/10/21 08:29 Dose: 40 mg Documented by: Fluticasone Propionate (Fluticasone Propionate Nasal 16 Gm [place]) 1 spray NOSTRIL-B BID [facility] Last Admin: 09/10/21 11:26 Dose: 1 spray Documented by: Hydroxyzine HCl (Hydroxyzine Hcl 25 Mg Tablet) 25 mg PO Q6H PRN PRN Reason: Anxiety Last Admin: 09/10/21 11:26 Dose: 25 mg Documented by: Lisinopril (Lisinopril 10 Mg Tablet) 10 mg PO DAILY [facility]; Protocol Last Admin: 09/10/21 08:31 Dose: 10 mg Documented by: [place] Carbonate ([place] Carbonate 300 Mg Tablet) 150 mg PO BEDTIME [facility] [place] Carbonate ([place] Carbonate 300 Mg Capsule) 300 mg PO BEDTIME [facility] Last Admin: 09/09/21 23:48 Dose: 300 mg Documented by: Magnesium Hydroxide (Milk Of Magnesia 30 Ml Oral.Susp) 30 ml PO DAILY PRN PRN Reason: Constipation Non-Formulary Medication (Estradiol [Yuvafem]) 1 tab VAGINAL WESA [facility] Quetiapine Fumarate (Quetiapine Fumarate 25 Mg Tablet) 25 mg PO BEDTIME [facility] Last Admin: 09/09/21 23:48 Dose: 25 mg Documented by: Trazodone HCl (Trazodone Hcl 50 Mg Tablet) 50 mg PO BEDTIME PRN PRN Reason: Insomnia Vitamin E (Vitamin E (Dl,Tocopheryl Acet) 180 Mg (400 Unit) Capsule) 180 mg PO DAILY [facility] Last Admin: 09/10/21 08:30 Dose: 180 mg Documented by: Allergies Allergies Allergy/AdvReac Type Severity Reaction Status Date / Time No Known Allergies Allergy Unverified 08/02/20 16:46 Assessment & Plan Assessment & Plan (1) Bipolar II disorder: Status: Acute Code(s): F31.81 - Bipolar II disorder (2) Hypertension: Status: Acute Code(s): I10 - Essential (primary) hypertension Assessment and Plan: Monitor blood pressure lisinopril increased given amlodipine monitor lithium on lisinopril (3) Leukocytosis: Status: Acute Code(s): D72.829 - Elevated white blood cell count, unspecified Assessment and Plan: Monitor white count medical consult chest CT scan ordered patient on antibiotics awaiting result of urine. Also check sinus CT patient has had ongoing mucus constant throat clearing patient's PCP has suggested sinus films Assessment and Plan: Pt is a 70 year old female who carries a diagnosis of bipolar II disorder, ADHD, presenting to the ED on 09/10/21 with increased anxiety and depression, SI x 1 month, low appetite, and hyposomnia. Precipitating factors include that her lithium was decreased about a month ago. Pt is currently presenting with sx of hyposomnia, anxious affect, agitation, low appetite, perseverative thought content, and feelings of hopelessness. Intense somatic preoccupation Plan: increase lithium but ck levels on increased lisinopril seromial inc as tolerated ritalin held I spent minutes with the patient and/or on the patient floor today, greater than?50% of which was spent counseling/coordinating care. Reason for contiued inpatient stay Substantial Risk for: harm to self and rapid decompensation
[2021-09-10 16:31] VITALS: BP 192/104; PULSE 82; RESP 14; TEMP 36.2; O2SAT 97
[2021-09-10 17:25] VITALS: BP 160/86
[2021-09-10] MEDS: QUEtiapine Fumarate 25 MG TABLET 12.5 MG PO (17:29)
[2021-09-10 17:57] VITALS: BP 192/104; PULSE 82
[2021-09-10] MEDS: amLODIPine Besylate 2.5 MG TABLET PO ×2 (17:57→18:41)
[2021-09-10 18:20] VITALS: BP 197/95; PULSE 89; TEMP 36.8; O2SAT 95
[2021-09-10] MEDS: Lithium Carbonate 300 MG TABLET 150 MG PO (21:29)
[2021-09-10] MEDS: Lithium Carbonate 300 MG CAPSULE PO (21:29)
[2021-09-10] MEDS: QUEtiapine Fumarate 50 MG TABLET PO (21:47)
[2021-09-11 07:27] LABS: Baso%MD 0.3 %; Eos%MD 2.2 %; Hematocrit 44.9 % (37-47); Hemoglobin 14.7 g/dl (12.0-16.0); IG%MD 0.4 %; Lymph%MD 12.8 %; Mean Corpuscular HGB Conc 32.7 g/dl (31.0-35.0); Mean Corpuscular Hemoglobin 30.1 pg (27.0-33.0); Mean Corpuscular Volume 91.8 fL (80-98); Mono%MD 6.5 %; Neut%MD 77.8 %; Platelet Count 315 X10*3/uL (160-400); Red Blood Count 4.89 X10*6/uL (4.20-5.50); Red Cell Distribution Width 13.1 % (11.0-16.0); White Blood Count 13.5 X10*3/uL (4.8-10.8)
[2021-09-11 07:36] LABS: Estimated Average Glucose 108 mg/dL; Hemoglobin A1c % 5.4 %
[2021-09-11 07:51] LABS: Alanine Aminotransferase 18 U/L (0-31); Albumin Level 3.7 g/dL (3.5-5.0); Alkaline Phosphatase 103 U/L (39-117); Anion Gap 10 (12-20); Aspartate Amino Transferase 17 U/L (5-31); Bilirubin Total 0.5 mg/dL (0.0-1.0); Blood Urea Nitrogen 19 mg/dL (9-16); Calcium 10.2 mg/dL (8.4-10.2); Carbon Dioxide 27 mmol/L (22-29); Chloride 107 mmol/L (96-108); Estimated Glomerular Filt Rate 58; Glucose Fasting 98 mg/dL (60-99); Potassium 4.7 mmol/L (3.3-5.1); Sodium 139 mmol/L (135-145)
[2021-09-11] MEDS: Ascorbic Acid 500 MG TABLET 2000 MG PO (08:05)
[2021-09-11 08:06] VITALS: BP 160/80; PULSE 100
[2021-09-11] MEDS: lisinopriL 10 MG TABLET PO (08:06)
[2021-09-11] MEDS: FLUoxetine HCl 20 MG CAPSULE 40 MG PO (08:06)
[2021-09-11] MEDS: Vitamin E (Dl,Tocopheryl Acet) 180 MG (400 UNIT) CAPSULE PO (08:08)
[2021-09-11] MEDS: Fluticasone Propionate Nasal 16 GM SPRAY 1 SPRAY NOSTRIL-B ×2 (08:11→20:42)
[2021-09-11] MEDS: diazePAM 2 MG TABLET PO ×3 (08:11→20:45)
[2021-09-11 08:15] LABS: Band Neutrophils Percent 0 % (3-5); Eosinophils Absolute Manual 0.3 X10*3/UL (0.0-0.8); Eosinophils Percent Manual 2 % (0-4); Lymphocytes Percent Manual 15 % (20-40); Monocytes Absolute Manual 1.4 X10*3/uL (0.0-1.2); Monocytes Percent Manual 10 % (2-11); Neutrophils Absolute Manual 9.9 X10*3/uL (2.2-7.9); Neutrophils Percent Manual 73 % (45-73); Platelet Estimate NORMAL (NORMAL); Platelet Morphology Comment NORMAL; RBC Morphology NORMAL
--- NOTE | 2021-09-11 08:56 | HO.PSYCHPN ---
Subjective Subjective Date of Service: 09/11/21 Reason For Visit: severe depression and agitation Subjective Notes: Conditional Voluntary Guardianship: No Medical Problems Affecting Mental Status: Yes Interim History: pt severely anxious depressed ruminating c/o ongoing throat clearing Medication Compliance: Yes Side effects from medications: No Mental Status Exam Mental Status Exam Narrative: The patient is casually dressed somewhat diaphoretic anxious in appearance. She is ruminating that she cannot stand has she is feeling at times wishes she were denies plan or intent in this setting. No hallucinations or delusional material but constant feeling that something is wrong with her constant throat clearing and somatic preoccupation. Mood is severely depressed anxious periods of restlessness perhaps some improvement no active si impaired concentration Diagnostics Vital Signs (24Hr): Vital Signs - 24 hr 09/10/21 16:31 09/10/21 17:25 09/10/21 17:57 Temperature 97.1 F Pulse Rate 82 82 Respiratory Rate 14 Blood Pressure 192/104 H 160/86 H 192/104 H Pulse Oximetry 97 09/10/21 18:20 09/11/21 08:06 Temperature 98.2 F Pulse Rate 89 100 Respiratory Rate Blood Pressure 197/95 H 160/80 H Pulse Oximetry 95 Body Mass Index 21.3 Labs Results: 09/11/21 07:15 09/11/21 07:15 Labs: Laboratory Results - last 48 hr 09/09/21 09/09/21 09/09/21 14:45 14:45 14:45 WBC 17.1 H RBC 5.42 Hgb 16.1 H Hct 50.0 H MCV 92.3 MCH 29.7 MCHC 32.2 RDW 12.7 Plt Count 355 MPV 9.8 Immature Gran % (Auto) 0.5 H Neut % (Auto) 88.9 H Lymph % (Auto) 6.2 L [place] % (Auto) 4.0 Eos % (Auto) 0.2 Baso % (Auto) 0.2 Lymph # (Auto) 1.1 L [place] # (Auto) 0.7 Eos # (Auto) 0.0 Baso # (Auto) 0.0 Abs Immat Gran (auto) 0.09 H Absolute Neuts (auto) 15.2 H Absolute Nucleated RBC 0.000 Nucleated RBC % (auto) 0.0 Neutrophils % (Manual) Band Neutrophils % Lymphocytes % (Manual) Monocytes % (Manual) Eosinophils % (Manual) Abs Neuts (Manual) Lymphocytes # (Manual) Monocytes # (Manual) Eosinophils # (Manual) Platelet Estimate Plt Morphology Comment RBC Morphology Sodium 141 Potassium 4.8 Chloride 107 Carbon Dioxide 26 Anion Gap 13 BUN 12 Creatinine 0.83 Estim Creat Clear Calc 46.8 Estimated GFR > 60 Random Glucose 119 H Fasting Glucose Estimat Average Glucose Hemoglobin A1c % Lactic Acid Calcium 10.5 H Magnesium 2.4 Total Bilirubin 0.3 Direct Bilirubin < 0.2 AST 19 ALT 21 Alkaline Phosphatase 119 H Total Protein 6.9 Albumin 4.3 Urine Color Urine Appearance Urine pH Ur Specific [place] Urine Protein Urine Glucose (UA) Urine Ketones Urine Blood Urine Nitrite Ur Leukocyte Esterase Urine RBC Urine WBC Ur Squamous Epith Cells Urine Bacteria Urine Opiates Screen Urine Fentanyl Screen Ur Barbiturates Screen Ur Phencyclidine Scrn Ur Amphetamines Screen U Benzodiazepines Scrn [place] 0.52 L Urine Cocaine Screen U Marijuana (THC) Screen COVID-19 (REE) COVID-19 Clin Com 09/09/21 09/09/21 09/09/21 14:45 16:56 16:56 WBC RBC Hgb Hct MCV MCH MCHC RDW Plt Count MPV Immature Gran % (Auto) Neut % (Auto) Lymph % (Auto) [place] % (Auto) Eos % (Auto) Baso % (Auto) Lymph # (Auto) [place] # (Auto) Eos # (Auto) Baso # (Auto) Abs Immat Gran (auto) Absolute Neuts (auto) Absolute Nucleated RBC Nucleated RBC % (auto) Neutrophils % (Manual) Band Neutrophils % Lymphocytes % (Manual) Monocytes % (Manual) Eosinophils % (Manual) Abs Neuts (Manual) Lymphocytes # (Manual) Monocytes # (Manual) Eosinophils # (Manual) Platelet Estimate Plt Morphology Comment RBC Morphology Sodium Potassium Chloride Carbon Dioxide Anion Gap BUN Creatinine Estim Creat Clear Calc Estimated GFR Random Glucose Fasting Glucose Estimat Average Glucose Hemoglobin A1c % Lactic Acid Calcium Magnesium Total Bilirubin Direct Bilirubin AST ALT Alkaline Phosphatase Total Protein Albumin Urine Color YELLOW Urine Appearance CLEAR Urine pH 6.0 Ur Specific [place] 1.015 Urine Protein NEG Urine Glucose (UA) NEG Urine Ketones NEG Urine Blood NEG Urine Nitrite NEG Ur Leukocyte Esterase TRACE H Urine RBC 1-4 Urine WBC 5-9 H Ur Squamous Epith Cells 1+ Urine Bacteria 1+ Urine Opiates Screen Not Detected Urine Fentanyl Screen Not Detected Ur Barbiturates Screen Not Detected Ur Phencyclidine Scrn Not Detected Ur Amphetamines Screen Not Detected U Benzodiazepines Scrn POSITIVE H [place] Urine Cocaine Screen Not Detected U Marijuana (THC) Screen POSITIVE H COVID-19 (REE) Negative COVID-19 Clin Com See Note 09/09/21 09/11/21 09/11/21 18:23 07:15 07:15 WBC 13.5 H RBC 4.89 Hgb 14.7 Hct 44.9 MCV 91.8 MCH 30.1 MCHC 32.7 RDW 13.1 Plt Count 315 MPV 10.0 Immature Gran % (Auto) Neut % (Auto) Lymph % (Auto) [place] % (Auto) Eos % (Auto) Baso % (Auto) Lymph # (Auto) [place] # (Auto) Eos # (Auto) Baso # (Auto) Abs Immat Gran (auto) Absolute Neuts (auto) Absolute Nucleated RBC 0.000 Nucleated RBC % (auto) 0.0 Neutrophils % (Manual) 73 Band Neutrophils % 0 L Lymphocytes % (Manual) 15 L Monocytes % (Manual) 10 Eosinophils % (Manual) 2 Abs Neuts (Manual) 9.9 H Lymphocytes # (Manual) 2.0 Monocytes # (Manual) 1.4 H Eosinophils # (Manual) 0.3 Platelet Estimate NORMAL Plt Morphology Comment NORMAL RBC Morphology NORMAL Sodium 139 Potassium 4.7 Chloride 107 Carbon Dioxide 27 Anion Gap 10 L BUN 19 H D Creatinine 0.95 Estim Creat Clear Calc 41.0 Estimated GFR 58 Random Glucose Fasting Glucose 98 Estimat Average Glucose Hemoglobin A1c % Lactic Acid 1.1 Calcium 10.2 Magnesium Total Bilirubin 0.5 Direct Bilirubin AST 17 ALT 18 Alkaline Phosphatase 103 Total Protein 6.0 L Albumin 3.7 Urine Color Urine Appearance Urine pH Ur Specific [place] Urine Protein Urine Glucose (UA) Urine Ketones Urine Blood Urine Nitrite Ur Leukocyte Esterase Urine RBC Urine WBC Ur Squamous Epith Cells Urine Bacteria Urine Opiates Screen Urine Fentanyl Screen Ur Barbiturates Screen Ur Phencyclidine Scrn Ur Amphetamines Screen U Benzodiazepines Scrn [place] Urine Cocaine Screen U Marijuana (THC) Screen COVID-19 (REE) COVID-19 Clin Com 09/11/21 09/11/21 07:15 07:15 WBC RBC Hgb Hct MCV MCH MCHC RDW Plt Count MPV Immature Gran % (Auto) Neut % (Auto) Lymph % (Auto) [place] % (Auto) Eos % (Auto) Baso % (Auto) Lymph # (Auto) [place] # (Auto) Eos # (Auto) Baso # (Auto) Abs Immat Gran (auto) Absolute Neuts (auto) Absolute Nucleated RBC Nucleated RBC % (auto) Neutrophils % (Manual) Band Neutrophils % Lymphocytes % (Manual) Monocytes % (Manual) Eosinophils % (Manual) Abs Neuts (Manual) Lymphocytes # (Manual) Monocytes # (Manual) Eosinophils # (Manual) Platelet Estimate Plt Morphology Comment RBC Morphology Sodium Potassium Chloride Carbon Dioxide Anion Gap BUN Creatinine Estim Creat Clear Calc Estimated GFR Random Glucose Fasting Glucose Estimat Average Glucose 108 Hemoglobin A1c % 5.4 Lactic Acid Calcium Magnesium Total Bilirubin Direct Bilirubin AST ALT Alkaline Phosphatase Total Protein Albumin Urine Color Urine Appearance Urine pH Ur Specific [place] Urine Protein Urine Glucose (UA) Urine Ketones Urine Blood Urine Nitrite Ur Leukocyte Esterase Urine RBC Urine WBC Ur Squamous Epith Cells Urine Bacteria Urine Opiates Screen Urine Fentanyl Screen Ur Barbiturates Screen Ur Phencyclidine Scrn Ur Amphetamines Screen U Benzodiazepines Scrn [place] 0.80 Urine Cocaine Screen U Marijuana (THC) Screen COVID-19 (REE) COVID-19 Clin Com Imaging Radiology Impressions: ITS Impressions Chest X-Ray 09/09/21 17:15 IMPRESSION: There is blunting of the right costophrenic angle which may be due to pleural thickening or trace pleural effusion with otherwise clear lungs. Medications Medications Current Medications Acetaminophen (Acetaminophen 325 Mg Tablet) 650 mg PO Q6H PRN PRN Reason: Headache/Pain Mild Scale (1-3) Al Hydroxide/Mg Hydroxide (Magnesium Hydrox/Alum Hydrox 30 Ml Oral.Susp) 30 ml PO Q6H PRN PRN Reason: Heartburn/Nausea Ascorbic Acid (Ascorbic Acid 500 Mg Tablet) 2,000 mg PO DAILY [facility] Last Admin: 09/11/21 08:05 Dose: 2,000 mg Documented by: Benzocaine (Throat Lozenge, Medicated Lozenge) 1 lozenge MUCOUS MEM Q2H PRN PRN Reason: Sore Throat Calcium Carbonate (Calcium Carbonate 500 Mg Tablet) 1,000 mg PO DAILY [facility] Last Admin: 09/11/21 08:05 Dose: 1,000 mg Documented by: Cefuroxime Axetil (Cefuroxime Axetil 250 Mg Tablet) 250 mg PO Q12H [facility] Stop: 09/16/21 17:59 Last Admin: 09/11/21 08:05 Dose: 250 mg Documented by: Diazepam (Diazepam 2 Mg Tablet) 2 mg PO Q6H PRN PRN Reason: anxiety Last Admin: 09/11/21 08:11 Dose: 2 mg Documented by: Fluoxetine HCl (Fluoxetine Hcl 20 Mg Capsule) 40 mg PO DAILY [facility] Last Admin: 09/11/21 08:06 Dose: 40 mg Documented by: Fluticasone Propionate (Fluticasone Propionate Nasal 16 Gm [place]) 1 spray NOSTRIL-B BID [facility] Last Admin: 09/11/21 08:11 Dose: 1 spray Documented by: Hydroxyzine HCl (Hydroxyzine Hcl 25 Mg Tablet) 25 mg PO Q6H PRN PRN Reason: Anxiety Last Admin: 09/10/21 11:26 Dose: 25 mg Documented by: Lisinopril (Lisinopril 10 Mg Tablet) 10 mg PO DAILY [facility]; Protocol Last Admin: 09/11/21 08:06 Dose: 10 mg Documented by: [place] Carbonate ([place] Carbonate 300 Mg Tablet) 150 mg PO BEDTIME [facility] Last Admin: 09/10/21 21:29 Dose: 150 mg Documented by: [place] Carbonate ([place] Carbonate 300 Mg Capsule) 300 mg PO BEDTIME [facility] Last Admin: 09/10/21 21:29 Dose: 300 mg Documented by: Magnesium Hydroxide (Milk Of Magnesia 30 Ml Oral.Susp) 30 ml PO DAILY PRN PRN Reason: Constipation Non-Formulary Medication (Estradiol [Yuvafem]) 1 tab VAGINAL WESA [facility] Quetiapine Fumarate (Quetiapine Fumarate 25 Mg Tablet) 12.5 mg PO Q4H PRN PRN Reason: anxiety/restlessness Last Admin: 09/10/21 17:29 Dose: 12.5 mg Documented by: Quetiapine Fumarate (Quetiapine Fumarate 50 Mg Tablet) 50 mg PO BEDTIME [facility] Last Admin: 09/10/21 21:47 Dose: 50 mg Documented by: Quetiapine Fumarate (Quetiapine Fumarate 25 Mg Tablet) 12.5 mg PO BID@0830,1330 [facility] Vitamin E (Vitamin E (Dl,Tocopheryl Acet) 180 Mg (400 Unit) Capsule) 180 mg PO DAILY [facility] Last Admin: 09/11/21 08:08 Dose: 180 mg Documented by: Allergies Allergies Allergy/AdvReac Type Severity Reaction Status Date / Time No Known Allergies Allergy Unverified 08/02/20 16:46 Assessment & Plan Assessment & Plan (1) Bipolar II disorder: Status: Acute Code(s): F31.81 - Bipolar II disorder (2) Hypertension: Status: Acute Code(s): I10 - Essential (primary) hypertension Assessment and Plan: Monitor blood pressure stop lisinopril given amlodipine 2.5 daily (3) Leukocytosis: Status: Acute Code(s): D72.829 - Elevated white blood cell count, unspecified Assessment and Plan: Monitor white count medical consult chest CT scan ordered patient on antibiotics awaiting result of urine. Also check sinus CT patient has had ongoing mucus constant throat clearing patient's PCP has suggested sinus films Assessment and Plan: Pt is a 70 year old female who carries a diagnosis of bipolar II disorder, ADHD, presenting to the ED on 09/10/21 with increased anxiety and depression, SI x 1 month, low appetite, and hyposomnia. Precipitating factors include that her lithium was decreased about a month ago. Pt is currently presenting with sx of hyposomnia, anxious affect, agitation, low appetite, perseverative thought content, and feelings of hopelessness. Intense somatic preoccupation Plan: increase lithium but ck levels on increased lisinopril [employer] as tolerated ritalin held I spent minutes with the patient and/or on the patient floor today, greater than?50% of which was spent counseling/coordinating care. Reason for contiued inpatient stay Substantial Risk for: harm to self, inability to function and med/psych decompensation
[2021-09-11 10:32] VITALS: BP 132/73; PULSE 72
[2021-09-11 10:33] VITALS: BP 132/73; PULSE 72
[2021-09-11] MEDS: amLODIPine Besylate 2.5 MG TABLET PO (10:33)
[2021-09-11] MEDS: QUEtiapine Fumarate 25 MG TABLET 12.5 MG PO ×3 (10:34→17:41)
[2021-09-11] MEDS: Acetaminophen 325 MG TABLET 650 MG PO (10:36)
--- NOTE | 2021-09-11 11:49 | PM.IMCN ---
History of Present Illness Data of Consult Service Date: 09/11/21 Primary Care Provider: Unknown Physician HPI Reason for consult: Elevated blood pressure. This is a 70 yo F with a PMH of HTN (on lisinopril 10mg for the last 1 year or so), Depression who is admitted to the inpatient psychiatric unit. Medical services consulted for management of her HTN. Patients chart reviwed and cause discussed with her attending psychiatrist. Patient seen and examined in her room. She reports that normally her blood pressure is well controlled and has been on the same dose of lisinopril for about 1 year. She reports that for the last two days she was extremely anxious because she could feel herself going into agitated depression and that is what was effecting her blood pressure. She was given 2.5mg of Norvasc x 2 yesterday and also medications for her mental health. Her blood pressure is now improved. Patient also complains of chronic sore throat / irritation. She has a difficult time explaining it but tells me that it feels as if there is something in the back. She then states that when she goes to bed, she can feel a sensation of it moving to the right side. She reports thick sputum production. She reports that she had seen an ENT about 3 years ago and was told that this was due to her meds and getting old. She reports this feeling since before she started her lisinopril. She denies any rhinorrhea or sinus tenderness. PMH HTN PSH no major surgery FH skin cancer - father mohter - htn SH no current tobacco, alcohol + for marijuana Review of Systems Review of Systems: negative except HPI [facility] Medical History (Updated 09/10/21 @ 21:14 by Yovany Shearer MD) Hypertension Pertinent family history: mother had depression and anxiety, htn father had skin cancer Social History Household Members: Spouse Household Members Other:: And two cats. Housing: House Do you presently have visiting nurse or other home services: No Patient Tobacco Use Status: Former Tobacco user Quit Date: 2013 Tobacco use type: Cigarette Smoked in Last 30 Days: No e-Cigarette/Vaping Use: Never Used Patient Interested in Nicotine Replacement: No Patient Given Instructions on How to Stop Smoking: No (not applicable, pt. quit smoking long time ago.) Second Hand Smoke Exposure: No Use of substances other than those prescribed or required for medical reasons: Yes Substance Use Type: Marijuana Substance Use Frequency: Weekly Last Used Substance Other:: mid Jul. Currently Displaying Signs/Symptoms of Drug Intoxication Withdrawal: No Any prior treatment program specific to substance use: No Have you been hit, kicked, punched, or otherwise hurt by someone within the past year? If so, by whom?: No Do you feel safe in your current relationship?: Yes Is there a partner from a previous relationship who is making you feel unsafe now?: No Are you made to feel afraid or neglected: No Advance Directives: No Advance Directives Information Provided: Yes Guardian: No Do you have thoughts of harming others: None Do you have a plan to hurt others: No Plan Recently lost weight without trying: Yes How much weight loss: 2-13 pounds Eating poorly because of decreased appetite: Yes Nutrition screen score: 4 Patient : No : No Poor oral hygiene: No service: No Sexual orientation: Straight/Heterosexual Meds Allergies Allergy/AdvReac Type Severity Reaction Status Date / Time No Known Allergies Allergy Unverified 08/02/20 16:46 Active Medications: Current Medications Acetaminophen (Acetaminophen 325 Mg Tablet) 650 mg PO Q6H PRN PRN Reason: Headache/Pain Mild Scale (1-3) Last Admin: 09/11/21 10:36 Dose: 650 mg Documented by: Al Hydroxide/Mg Hydroxide (Magnesium Hydrox/Alum Hydrox 30 Ml Oral.Susp) 30 ml PO Q6H PRN PRN Reason: Heartburn/Nausea Amlodipine Besylate (Amlodipine Besylate 2.5 Mg Tablet) 2.5 mg PO DAILY [facility]; Protocol Last Admin: 09/11/21 10:33 Dose: 2.5 mg Documented by: Artificial Tears (Artificial Tears 15 Ml Drops) 2 drop EYE-BOTH Q4H PRN PRN Reason: Dry Eyes Ascorbic Acid (Ascorbic Acid 500 Mg Tablet) 2,000 mg PO DAILY [place] Last Admin: 09/11/21 08:05 Dose: 2,000 mg Documented by: Benzocaine (Throat Lozenge, Medicated Lozenge) 1 lozenge MUCOUS MEM Q2H PRN PRN Reason: Sore Throat Calcium Carbonate (Calcium Carbonate 500 Mg Tablet) 1,000 mg PO DAILY [facility] Last Admin: 09/11/21 08:05 Dose: 1,000 mg Documented by: Cefuroxime Axetil (Cefuroxime Axetil 250 Mg Tablet) 250 mg PO Q12H [facility] Stop: 09/16/21 17:59 Last Admin: 09/11/21 08:05 Dose: 250 mg Documented by: Diazepam (Diazepam 2 Mg Tablet) 2 mg PO Q6H PRN PRN Reason: anxiety Last Admin: 09/11/21 08:11 Dose: 2 mg Documented by: Fluoxetine HCl (Fluoxetine Hcl 20 Mg Capsule) 40 mg PO DAILY [facility] Last Admin: 09/11/21 08:06 Dose: 40 mg Documented by: Fluticasone Propionate (Fluticasone Propionate Nasal 16 Gm [place]) 1 spray NOSTRIL-B BID [facility] Last Admin: 09/11/21 08:11 Dose: 1 spray Documented by: Hydroxyzine HCl (Hydroxyzine Hcl 25 Mg Tablet) 25 mg PO Q6H PRN PRN Reason: Anxiety Last Admin: 09/10/21 11:26 Dose: 25 mg Documented by: Lisinopril (Lisinopril 10 Mg Tablet) 10 mg PO DAILY [facility]; Protocol Last Admin: 09/11/21 08:06 Dose: 10 mg Documented by: [place] Carbonate ([place] Carbonate 300 Mg Tablet) 150 mg PO BEDTIME [facility] Last Admin: 09/10/21 21:29 Dose: 150 mg Documented by: [place] Carbonate ([place] Carbonate 300 Mg Capsule) 300 mg PO BEDTIME [facility] Last Admin: 09/10/21 21:29 Dose: 300 mg Documented by: Magnesium Hydroxide (Milk Of Magnesia 30 Ml Oral.Susp) 30 ml PO DAILY PRN PRN Reason: Constipation Quetiapine Fumarate (Quetiapine Fumarate 25 Mg Tablet) 12.5 mg PO Q4H PRN PRN Reason: anxiety/restlessness Last Admin: 09/10/21 17:29 Dose: 12.5 mg Documented by: Quetiapine Fumarate (Quetiapine Fumarate 50 Mg Tablet) 50 mg PO BEDTIME [facility] Last Admin: 09/10/21 21:47 Dose: 50 mg Documented by: Quetiapine Fumarate (Quetiapine Fumarate 25 Mg Tablet) 12.5 mg PO BID@0830,1330 [facility] Last Admin: 09/11/21 10:34 Dose: 12.5 mg Documented by: Vitamin E (Vitamin E (Dl,Tocopheryl Acet) 180 Mg (400 Unit) Capsule) 180 mg PO DAILY [facility] Last Admin: 09/11/21 08:08 Dose: 180 mg Documented by: Home Medications Medication Instructions Recorded Confirmed Last Taken Type ascorbic acid (vitamin C) 2,000 mg 2,000 mg PO DAILY 09/09/21 09/09/21 09/08/21 History tablet,extended release calcium carbonate 600 mg calcium 1,200 mg PO DAILY 09/09/21 09/09/21 09/09/21 History (1,500 mg) tablet (Calcium) diazepam 2 mg tablet 1 tab PO BID PRN 09/09/21 09/09/21 Unknown History estradiol 10 mcg vaginal tablet 1 tab VAGINAL WESA 09/09/21 09/09/21 08/31/21 History (Yuvafem) fluoxetine 40 mg capsule 40 mg PO DAILY 09/09/21 09/09/21 09/09/21 History fluticasone propionate 50 1 spray INTRANASAL BID 09/09/21 09/09/21 Unknown History mcg/actuation nasal spray,suspension lisinopril 10 mg tablet 1 tab PO DAILY 09/09/21 09/09/21 09/09/21 History lithium carbonate 150 mg capsule 150 mg PO BEDTIME 09/09/21 09/09/21 09/08/21 History lithium carbonate 300 mg capsule 300 mg PO BEDTIME 09/09/21 09/09/21 09/08/21 History menthol-herbal drugs lozenges 1 leonela MUCOUS MEMBRANE Q2H 09/09/21 09/09/21 Unknown History (Ricola) quetiapine 25 mg tablet 25 mg PO BEDTIME 09/09/21 09/09/21 09/08/21 History vitamin E 400 unit capsule 400 unit PO DAILY 09/09/21 09/09/21 09/09/21 History Physical Exam Vital Signs and Narrative: Vital Signs: Last Vital Signs Temp 98.2 F 09/10/21 18:20 Pulse 72 09/11/21 10:33 Resp 14 09/10/21 16:31 BP 132/73 09/11/21 10:33 Pulse Ox 95 09/10/21 18:20 Body Mass Index 21.3 Const: Other: General - no acute distress, appears comfortable HEENT - bilateral tonsillar hyperthrophy; no sinus tenderness, no palpable lymphadenopathy in the head / cervical region Cardiovascular - regular rate and rhythm, S1-S2 Lungs - normal respiratory effort, clear to auscultation bilaterally, no wheezing Abdomen - soft, nontender, no rebound or guarding Extremities - no edema bilaterally Neuro - awake and alert, no focal deficits Results Labs CBC and Chem 7: 09/11/21 07:15 09/11/21 07:15 Labs: Laboratory Results - last 24 hr 09/11/21 09/11/21 09/11/21 07:15 07:15 07:15 MCV 91.8 MCH 30.1 MCHC 32.7 RDW 13.1 Plt Count 315 MPV 10.0 Absolute Nucleated RBC 0.000 Nucleated RBC % (auto) 0.0 Neutrophils % (Manual) 73 Band Neutrophils % 0 L Lymphocytes % (Manual) 15 L Monocytes % (Manual) 10 Eosinophils % (Manual) 2 Abs Neuts (Manual) 9.9 H Lymphocytes # (Manual) 2.0 Monocytes # (Manual) 1.4 H Eosinophils # (Manual) 0.3 Platelet Estimate NORMAL Plt Morphology Comment NORMAL RBC Morphology NORMAL Anion Gap 10 L Estim Creat Clear Calc 41.0 Estimated GFR 58 Fasting Glucose 98 Estimat Average Glucose 108 Hemoglobin A1c % 5.4 Calcium 10.2 Total Bilirubin 0.5 AST 17 ALT 18 Alkaline Phosphatase 103 Total Protein 6.[address] [place] 09/11/21 07:15 MCV MCH MCHC RDW Plt Count MPV Absolute Nucleated RBC Nucleated RBC % (auto) Neutrophils % (Manual) Band Neutrophils % Lymphocytes % (Manual) Monocytes % (Manual) Eosinophils % (Manual) Abs Neuts (Manual) Lymphocytes # (Manual) Monocytes # (Manual) Eosinophils # (Manual) Platelet Estimate Plt Morphology Comment RBC Morphology Anion Gap Estim Creat Clear Calc Estimated GFR Fasting Glucose Estimat Average Glucose Hemoglobin A1c % Calcium Total Bilirubin AST ALT Alkaline Phosphatase Total Protein Albumin [place] 0.80 Assessment and Plan (1) Hypertension: Status: Acute 70 yo F admitted to the Geripsychiatric unit. Medical consult sought for management of HTN. 1. HTN d/w attending psychiatrist -- would like to give alternative to Lisinopril as this can have some interaction with her psychiatric medications. Furthermore, the patient feels that her throat symptoms (see details below) may be attributed this this. Patients Uncontrolled BP yesterday likely worsened by anxiety. She received her Lisinopril this AM, will d/c it starting tomorrow. Continue Norvasc 2.5mg tomorrow AM, but anticipate she will likely need at least 5mg. 2. ? sore throat / sensation of something there posterior pharynx visualization limited, but she does have bilateral tonsilar adenopathy -- without exudates it appears that these symptoms have been on going for sometime and she is quiet fixated about this. She does not have any sinus tenderness to suggest acute sinusitis. ENT eval (can be done as outpatient). 3. Leukocytosis Probably reactive, her CXR findings do no seem acute. She denies any respiratory symptoms. Additionally -- UA may suggest UTI, but she does not endorse any urinary symptoms. Urine C&S contminated. She probably does not need any antibiotics. Would discontinue Will check in on her BP tomorrow and adjust Norvasc as needed.
[2021-09-11 13:00] VITALS: BP 129/78; PULSE 72
[2021-09-11 20:00] VITALS: BP 134/77; PULSE 91; RESP 18; TEMP 36.8; O2SAT 95
[2021-09-11] MEDS: Lithium Carbonate 300 MG CAPSULE PO (20:40)
[2021-09-11] MEDS: Lithium Carbonate 300 MG TABLET 150 MG PO (20:41)
[2021-09-11] MEDS: QUEtiapine Fumarate 50 MG TABLET PO (20:42)
[2021-09-11 21:30] VITALS: BP 134/77; PULSE 91; RESP 17; TEMP 36.8; O2SAT 94
[2021-09-12 07:00] VITALS: BMI 21.5
[2021-09-12 08:23] VITALS: BP 142/79; PULSE 91; RESP 16; TEMP 37.2; O2SAT 92
[2021-09-12] MEDS: Ascorbic Acid 500 MG TABLET 2000 MG PO (08:34)
[2021-09-12] MEDS: QUEtiapine Fumarate 25 MG TABLET 12.5 MG PO ×2 (08:37→13:19)
[2021-09-12] MEDS: Vitamin E (Dl,Tocopheryl Acet) 180 MG (400 UNIT) CAPSULE PO (08:38)
[2021-09-12] MEDS: FLUoxetine HCl 20 MG CAPSULE 40 MG PO (08:39)
[2021-09-12 08:40] VITALS: BP 142/79; PULSE 91
[2021-09-12] MEDS: amLODIPine Besylate 2.5 MG TABLET PO (08:40)
[2021-09-12] MEDS: Fluticasone Propionate Nasal 16 GM SPRAY 1 SPRAY NOSTRIL-B ×2 (08:43→21:22)
[2021-09-12] MEDS: diazePAM 2 MG TABLET PO ×2 (10:06→17:39)
[2021-09-12 16:00] VITALS: BP 199/89; PULSE 83
[2021-09-12] MEDS: guaiFENesin LA 600 MG TAB.ER.12H PO ×2 (17:05→21:23)
[2021-09-12 20:00] VITALS: BP 156/82; PULSE 81; RESP 18; TEMP 37.2; O2SAT 95
[2021-09-12] MEDS: OLANZapine 2.5 MG TABLET PO (21:23)
[2021-09-12] MEDS: Lithium Carbonate 300 MG CAPSULE 600 MG PO (21:23)
[2021-09-12] MEDS: Famotidine 20 MG TABLET PO (21:23)
[2021-09-13] VITALS: BP 154/80; PULSE 87
[2021-09-13 08:31] VITALS: BP 146/76; PULSE 81; RESP 16; TEMP 36.5; O2SAT 94
[2021-09-13] MEDS: Ascorbic Acid 500 MG TABLET 2000 MG PO (08:32)
[2021-09-13] MEDS: Fluticasone Propionate Nasal 16 GM SPRAY 1 SPRAY NOSTRIL-B (08:32)
[2021-09-13] MEDS: FLUoxetine HCl 20 MG CAPSULE 40 MG PO (08:32)
[2021-09-13] MEDS: guaiFENesin LA 600 MG TAB.ER.12H PO ×2 (08:32→22:15)
[2021-09-13] MEDS: buPROPion HCL 75 MG TABLET PO (08:33)
[2021-09-13 08:36] VITALS: BP 146/76; PULSE 81
[2021-09-13] MEDS: Vitamin E (Dl,Tocopheryl Acet) 180 MG (400 UNIT) CAPSULE PO (08:36)
[2021-09-13] MEDS: amLODIPine Besylate 2.5 MG TABLET PO (08:36)
--- NOTE | 2021-09-13 08:51 | HO.PSYCHPN ---
Subjective Subjective Date of Service: 09/13/21 Reason For Visit: severe depression and agitation Subjective Notes: Conditional Voluntary Guardianship: No Medical Problems Affecting Mental Status: No Interim History: Pt with improved mood anxiety still severely depressed anxious seen by hospitatlist for htn tolerating lithium low dose wellbutrin seroquel d/c olanzapine 2.5 bedtime slept well Medication Compliance: Yes Mental Status Exam Mental Status Exam Narrative: pt casually dressed cooperative anxious and depressed with lability denies active si somewhat less somatically preoccupied denies active si but hopekless helpless easily agitated overwhelmed Diagnostics Vital Signs (24Hr): Vital Signs - 24 hr 09/12/21 16:00 09/12/21 20:00 09/13/21 00:00 Temperature 98.9 F Pulse Rate 83 81 87 Respiratory Rate 18 Blood Pressure 199/89 H 156/82 H 154/80 H Pulse Oximetry 95 09/13/21 08:31 09/13/21 08:36 Temperature 97.7 F Pulse Rate 81 81 Respiratory Rate 16 Blood Pressure 146/76 H 146/76 H Pulse Oximetry 94 Body Mass Index 21.5 Labs Results: 09/11/21 07:15 09/11/21 07:15 Imaging Radiology Impressions: ITS Impressions Chest X-Ray 09/09/21 17:15 IMPRESSION: There is blunting of the right costophrenic angle which may be due to pleural thickening or trace pleural effusion with otherwise clear lungs. Sinuses CT 09/12/21 09:52 IMPRESSION: Clear paranasal sinuses. No evidence of sinusitis. Medications Medications Current Medications Acetaminophen (Acetaminophen 325 Mg Tablet) 650 mg PO Q6H PRN PRN Reason: Headache/Pain Mild Scale (1-3) Last Admin: 09/11/21 10:36 Dose: 650 mg Documented by: Al Hydroxide/Mg Hydroxide (Magnesium Hydrox/Alum Hydrox 30 Ml Oral.Susp) 30 ml PO Q6H PRN PRN Reason: Heartburn/Nausea Amlodipine Besylate (Amlodipine Besylate 2.5 Mg Tablet) 2.5 mg PO DAILY [facility]; Protocol Last Admin: 09/13/21 08:36 Dose: 2.5 mg Documented by: Artificial Tears (Artificial Tears 15 Ml Drops) 2 drop EYE-BOTH Q4H PRN PRN Reason: Dry Eyes Ascorbic Acid (Ascorbic Acid 500 Mg Tablet) 2,000 mg PO DAILY [facility] Last Admin: 09/13/21 08:32 Dose: 2,000 mg Documented by: Benzocaine (Throat Lozenge, Medicated Lozenge) 1 lozenge MUCOUS MEM Q2H PRN PRN Reason: Sore Throat Bupropion HCl (Bupropion Hcl 75 Mg Tablet) 75 mg PO DAILY [facility] Last Admin: 09/13/21 08:33 Dose: 75 mg Documented by: Calcium Carbonate (Calcium Carbonate 500 Mg Tablet) 1,000 mg PO DAILY [facility] Last Admin: 09/13/21 08:32 Dose: 1,000 mg Documented by: Cefuroxime Axetil (Cefuroxime Axetil 250 Mg Tablet) 250 mg PO Q12H [facility] Stop: 09/16/21 17:59 Last Admin: 09/13/21 06:08 Dose: 250 mg Documented by: Diazepam (Diazepam 2 Mg Tablet) 2 mg PO Q6H PRN PRN Reason: anxiety Last Admin: 09/12/21 17:39 Dose: 2 mg Documented by: Famotidine (Famotidine 20 Mg Tablet) 20 mg PO BEDTIME [facility] Last Admin: 09/12/21 21:23 Dose: 20 mg Documented by: Fluoxetine HCl (Fluoxetine Hcl 20 Mg Capsule) 40 mg PO DAILY [facility] Last Admin: 09/13/21 08:32 Dose: 40 mg Documented by: Fluticasone Propionate (Fluticasone Propionate Nasal 16 Gm [place]) 1 spray NOSTRIL-B BID [facility] Last Admin: 09/13/21 08:32 Dose: 1 spray Documented by: Guaifenesin (Guaifenesin La 600 Mg Tab.Er.12h) 600 mg PO BID [facility] Last Admin: 09/13/21 08:32 Dose: 600 mg Documented by: Hydroxyzine HCl (Hydroxyzine Hcl 25 Mg Tablet) 25 mg PO Q6H PRN PRN Reason: Anxiety Last Admin: 09/10/21 11:26 Dose: 25 mg Documented by: [place] Carbonate ([place] Carbonate 300 Mg Capsule) 600 mg PO BEDTIME [facility] Last Admin: 09/12/21 21:23 Dose: 600 mg Documented by: Magnesium Hydroxide (Milk Of Magnesia 30 Ml Oral.Susp) 30 ml PO DAILY PRN PRN Reason: Constipation Olanzapine (Olanzapine 2.5 Mg Tablet) 2.5 mg PO BEDTIME [facility] Last Admin: 09/12/21 21:23 Dose: 2.5 mg Documented by: Olanzapine (Olanzapine 2.5 Mg Tablet) 2.5 mg PO BID PRN PRN Reason: anxiety/restlessness Vitamin E (Vitamin E (Dl,Tocopheryl Acet) 180 Mg (400 Unit) Capsule) 180 mg PO DAILY [facility] Last Admin: 09/13/21 08:36 Dose: 180 mg Documented by: Allergies Allergies Allergy/AdvReac Type Severity Reaction Status Date / Time No Known Allergies Allergy Unverified 08/02/20 16:46 Assessment & Plan Assessment & Plan (1) Bipolar II disorder: Status: Acute Code(s): F31.81 - Bipolar II disorder (2) Hypertension: Status: Acute Code(s): I10 - Essential (primary) hypertension Assessment and Plan: Monitor blood pressure stop lisinopril given amlodipine 2.5 daily (3) Leukocytosis: Status: Acute Code(s): D72.829 - Elevated white blood cell count, unspecified Assessment and Plan: sinus films neg staarted on mucinex Assessment and Plan: Pt is a 70 year old female who carries a diagnosis of bipolar II disorder, ADHD, presenting to the ED on 09/10/21 with increased anxiety and depression, SI x 1 month, low appetite, and hyposomnia. Precipitating factors include that her lithium was decreased about a month ago. Pt is currently presenting with sx of hyposomnia, anxious affect, agitation, low appetite, perseverative thought content, and feelings of hopelessness. Intense somatic preoccupation case reviewed with dr dukes and dr leary ent Plan: increase lithium but ck lev cont ssri wellbutrin added monitor lithium levels and adjust ck safety inc amlodipine for htn lisinopril d/c I spent minutes with the patient and/or on the patient floor today, greater than?50% of which was spent counseling/coordinating care. Reason for contiued inpatient stay Substantial Risk for: inability to function, rapid decompensation and med/psych decompensation
[2021-09-13 13:10] VITALS: BP 162/95; PULSE 78; RESP 16; O2SAT 96
[2021-09-13] MEDS: diazePAM 2 MG TABLET PO (13:16)
[2021-09-13] MEDS: Tetrahydrozoline HCl 0.05% Oph 15 ML DRPBTL 2 DROP EYE-BOTH (13:16)
[2021-09-13 13:28] VITALS: BP 173/77; PULSE 78
--- NOTE | 2021-09-13 15:38 | P.PNIM_ITS ---
Subjective Subjective Date of Service: 09/13/21 Interval History: Patient seen and examined in her room. She reports no dizziness. Denies orthostatic symptoms. She denies any urinary symptoms. Review of Systems negative except HPI Physical Exam Vital Signs: Vital Signs: Last Vital Signs Temp 97.7 F 09/13/21 08:31 Pulse 78 09/13/21 13:28 Resp 16 09/13/21 13:10 BP 173/77 H 09/13/21 13:28 Pulse Ox 96 09/13/21 13:10 Body Mass Index 21.5 Const: Other: Awake and Alert; NAD S1S2, RRR Lungs Clear Abd soft Ambulating in the [address] Objective Data Active Medications Acetaminophen (Acetaminophen 325 Mg Tablet) 650 mg PO Q6H PRN PRN Reason: Headache/Pain Mild Scale (1-3) Last Admin: 09/11/21 10:36 Dose: 650 mg Documented by: [place] Al Hydroxide/Mg Hydroxide (Magnesium Hydrox/Alum Hydrox 30 Ml Oral.Susp) 30 ml PO Q6H PRN PRN Reason: Heartburn/Nausea Amlodipine Besylate (Amlodipine Besylate 5 Mg Tablet) 5 mg PO DAILY [facility]; Protocol Artificial Tears (Artificial Tears 15 Ml Drops) 2 drop EYE-BOTH Q4H PRN PRN Reason: Dry Eyes Ascorbic Acid (Ascorbic Acid 500 Mg Tablet) 2,000 mg PO DAILY [facility] Last Admin: 09/13/21 08:32 Dose: 2,000 mg Documented by: [place] Benzocaine (Throat Lozenge, Medicated Lozenge) 1 lozenge MUCOUS MEM Q2H PRN PRN Reason: Sore Throat Bupropion HCl (Bupropion Hcl 75 Mg Tablet) 75 mg PO DAILY [facility] Last Admin: 09/13/21 08:33 Dose: 75 mg Documented by: [place] Calcium Carbonate (Calcium Carbonate 500 Mg Tablet) 1,000 mg PO DAILY [facility] Last Admin: 09/13/21 08:32 Dose: 1,000 mg Documented by: [place] Cefuroxime Axetil (Cefuroxime Axetil 250 Mg Tablet) 250 mg PO Q12H [facility] Stop: 09/16/21 17:59 Last Admin: 09/13/21 06:08 Dose: 250 mg Documented by: [place] Diazepam (Diazepam 2 Mg Tablet) 2 mg PO Q6H PRN PRN Reason: anxiety Last Admin: 09/13/21 13:16 Dose: 2 mg Documented by: [place] Famotidine (Famotidine 20 Mg Tablet) 20 mg PO BEDTIME [facility] Last Admin: 09/12/21 21:23 Dose: 20 mg Documented by: [place] Fluoxetine HCl (Fluoxetine Hcl 20 Mg Capsule) 40 mg PO DAILY [facility] Last Admin: 09/13/21 08:32 Dose: 40 mg Documented by: [place] Fluticasone Propionate (Fluticasone Propionate Nasal 16 Gm [place]) 1 spray NOSTRIL-B BID [facility] Last Admin: 09/13/21 08:32 Dose: 1 spray Documented by: [place] Guaifenesin (Guaifenesin [place] 600 Mg Tab.Er.12h) 600 mg PO BID [facility] Last Admin: 09/13/21 08:32 Dose: 600 mg Documented by: [place] Hydroxyzine HCl (Hydroxyzine Hcl 25 Mg Tablet) 25 mg PO Q6H PRN PRN Reason: Anxiety Last Admin: 09/10/21 11:26 Dose: 25 mg Documented by: [place] Ucon Carbonate (Ucon Carbonate 300 Mg Capsule) 600 mg PO BEDTIME [facility] Last Admin: 09/12/21 21:23 Dose: 600 mg Documented by: [place] Magnesium Hydroxide (Milk Of Magnesia 30 Ml Oral.Susp) 30 ml PO DAILY PRN PRN Reason: Constipation Olanzapine (Olanzapine 2.5 Mg Tablet) 2.5 mg PO BEDTIME [facility] Last Admin: 09/12/21 21:23 Dose: 2.5 mg Documented by: [place] Olanzapine (Olanzapine 2.5 Mg Tablet) 2.5 mg PO BID PRN PRN Reason: anxiety/restlessness Tetrahydrozoline HCl (Tetrahydrozoline Hcl 0.05% Oph 15 Ml Drpbtl) 2 drop EYE- BOTH QID PRN PRN Reason: Dry Eyes Last Admin: 09/13/21 13:16 Dose: 2 drop Documented by: [place] Vitamin E (Vitamin E (Dl,Tocopheryl Acet) 180 Mg (400 Unit) Capsule) 180 mg PO DAILY [facility] Last Admin: 09/13/21 08:36 Dose: 180 mg Documented by: [place] Labs CBC & Chem 7: 09/11/21 07:15 09/11/21 07:15 Assessment and Plan (1) Hypertension: Status: Acute Assessment and Plan: 70 yo F admitted to the [facility]. Patient seen in follow up for blood pressure issues. 1. HTN BP increasing slowly -- will increase norvasc to 5mg daily. Discontinue checking routine orthostatic vitals -- can check if patient symptomatic. Although she does have a drop in the BP from supine to standing, she has no symptoms and furthermore BP still remains elevated. This should not cause her to syncopize. Furthermore, this patient perseverates on her BP, which may elevated it further. Additionally will discontinue antibiotics (patient denies any symptoms of UTI) and her cultures are negative. Will sign off at this time. Please reconsult if any questions. Quality Stroke Does the patient have a stroke diagnosis?: No VTE Prior VTE?: No VTE Risk Level:: Medical - low (she ambulates on the psychatric unit) VTE Device Contraindication: Treatment Not Indicated VTE Drug Contraindication: Treatment Not Indicated
[2021-09-13 17:30] VITALS: BP 160/90; PULSE 80; RESP 16; TEMP 36.9; O2SAT 94
[2021-09-13] MEDS: Omeprazole 20 MG CAPSULE.DR PO (22:15)
[2021-09-13] MEDS: Lithium Carbonate 300 MG CAPSULE 600 MG PO (22:15)
[2021-09-13] MEDS: OLANZapine 2.5 MG TABLET PO (22:21)
[2021-09-14 10:43] VITALS: BP 164/81; PULSE 87; RESP 17; TEMP 36.7; O2SAT 95
[2021-09-14] MEDS: Tetrahydrozoline HCl 0.05% Oph 15 ML DRPBTL 2 DROP EYE-BOTH (10:43)
[2021-09-14] MEDS: Fluticasone Propionate Nasal 16 GM SPRAY 1 SPRAY NOSTRIL-B ×2 (10:43→21:57)
[2021-09-14] MEDS: FLUoxetine HCl 20 MG CAPSULE 40 MG PO (10:44)
[2021-09-14] MEDS: Vitamin E (Dl,Tocopheryl Acet) 180 MG (400 UNIT) CAPSULE PO (10:44)
[2021-09-14] MEDS: Ascorbic Acid 500 MG TABLET 2000 MG PO (10:44)
[2021-09-14 10:46] VITALS: BP 164/81; PULSE 87
[2021-09-14] MEDS: buPROPion HCL 75 MG TABLET PO (10:46)
[2021-09-14] MEDS: guaiFENesin LA 600 MG TAB.ER.12H PO ×2 (10:46→21:56)
[2021-09-14] MEDS: amLODIPine Besylate 5 MG TABLET PO (10:46)
--- NOTE | 2021-09-14 17:01 | P.PNPSI_ITS ---
Subjective Subjective Date of Service: 09/14/21 Reason For Visit: severe depression and agitation Interim History: pt reports she had a nightmare last night which has really thrown her off. she states she switched from seroquel to zyprexa last night. informs her zyprexa is not known for causing nightmares and to give the medication a few nights to get used to. she agrees. per staff, was hypertensive yesterday. c/o post-nasla drip and is now on mucinex. nightmares last night. no other notable events or behaviors. Mental Status Exam Mental Status Exam Narrative: The patient is casually dressed somewhat anxious in appearance. she expresses no SI/HI/AVH. cooperative with interview, PMA of frequent positional changes and gesticulations. speech incr in amount, rate, and loudness. thoughts linear and logical. affect full range normo-intense, min-labile. mood depressed. Diagnostics Vital Signs (24Hr): Vital Signs - 24 hr 09/13/21 17:30 09/14/21 10:43 09/14/21 10:46 Temperature 98.4 F 98.0 F Pulse Rate 80 87 87 Respiratory Rate 16 17 Blood Pressure 160/90 H 164/81 H 164/81 H Pulse Oximetry 94 95 Body Mass Index 21.5 Labs Results: 09/11/21 07:15 09/11/21 07:15 Imaging Radiology Impressions: ITS Impressions Chest X-Ray 09/09/21 17:15 IMPRESSION: There is blunting of the right costophrenic angle which may be due to pleural thickening or trace pleural effusion with otherwise clear lungs. Sinuses CT 09/12/21 09:52 IMPRESSION: Clear paranasal sinuses. No evidence of sinusitis. Medications Medications Current Medications Acetaminophen (Acetaminophen 325 Mg Tablet) 650 mg PO Q6H PRN PRN Reason: Headache/Pain Mild Scale (1-3) Last Admin: 09/11/21 10:36 Dose: 650 mg Documented by: Al Hydroxide/Mg Hydroxide (Magnesium Hydrox/Alum Hydrox 30 Ml Oral.Susp) 30 ml PO Q6H PRN PRN Reason: Heartburn/Nausea Amlodipine Besylate (Amlodipine Besylate 5 Mg Tablet) 5 mg PO DAILY [facility]; Protocol Last Admin: 09/14/21 10:46 Dose: 5 mg Documented by: Artificial Tears (Artificial Tears 15 Ml Drops) 2 drop EYE-BOTH Q4H PRN PRN Reason: Dry Eyes Ascorbic Acid (Ascorbic Acid 500 Mg Tablet) 2,000 mg PO DAILY [facility] Last Admin: 09/14/21 10:44 Dose: 2,000 mg Documented by: Benzocaine (Throat Lozenge, Medicated Lozenge) 1 lozenge MUCOUS MEM Q2H PRN PRN Reason: Sore Throat Bupropion HCl (Bupropion Hcl 75 Mg Tablet) 75 mg PO DAILY [facility] Last Admin: 09/14/21 10:46 Dose: 75 mg Documented by: Calcium Carbonate (Calcium Carbonate 500 Mg Tablet) 1,000 mg PO DAILY [facility] Last Admin: 09/14/21 10:46 Dose: 1,000 mg Documented by: Diazepam (Diazepam 2 Mg Tablet) 2 mg PO Q6H PRN PRN Reason: anxiety Last Admin: 09/13/21 13:16 Dose: 2 mg Documented by: Fluoxetine HCl (Fluoxetine Hcl 20 Mg Capsule) 40 mg PO DAILY [facility] Last Admin: 09/14/21 10:44 Dose: 40 mg Documented by: Fluticasone Propionate (Fluticasone Propionate Nasal 16 Gm [place]) 1 spray NOSTRIL-B BID [facility] Last Admin: 09/14/21 10:43 Dose: 1 spray Documented by: Guaifenesin (Guaifenesin La 600 Mg Tab.Er.12h) 600 mg PO BID [facility] Last Admin: 09/14/21 10:46 Dose: 600 mg Documented by: Hydroxyzine HCl (Hydroxyzine Hcl 25 Mg Tablet) 25 mg PO Q6H PRN PRN Reason: Anxiety Last Admin: 09/10/21 11:26 Dose: 25 mg Documented by: [place] Carbonate (Re[place]beck Carbonate 300 Mg Capsule) 600 mg PO BEDTIME [facility] Last Admin: 09/13/21 22:15 Dose: 600 mg Documented by: Magnesium Hydroxide (Milk Of Magnesia 30 Ml Oral.Susp) 30 ml PO DAILY PRN PRN Reason: Constipation Olanzapine (Olanzapine 2.5 Mg Tablet) 2.5 mg PO BEDTIME [facility] Last Admin: 09/13/21 22:21 Dose: 2.5 mg Documented by: Olanzapine (Olanzapine 2.5 Mg Tablet) 2.5 mg PO BID PRN PRN Reason: anxiety/restlessness Omeprazole (Omeprazole 20 Mg Capsule.Dr) 20 mg PO BEDTIME [facility] Last Admin: 09/13/21 22:15 Dose: 20 mg Documented by: Tetrahydrozoline HCl (Tetrahydrozoline Hcl 0.05% Oph 15 Ml Drpbtl) 2 drop EYE- BOTH QID PRN PRN Reason: Dry Eyes Last Admin: 09/14/21 10:43 Dose: 2 drop Documented by: Vitamin E (Vitamin E (Dl,Tocopheryl Acet) 180 Mg (400 Unit) Capsule) 180 mg PO DAILY [facility] Last Admin: 09/14/21 10:44 Dose: 180 mg Documented by: Allergies Allergies Allergy/AdvReac Type Severity Reaction Status Date / Time No Known Allergies Allergy Unverified 08/02/20 16:46 Assessment & Plan Assessment & Plan (1) Hypertension: Status: Acute Code(s): I10 - Essential (primary) hypertension Assessment and Plan: Pt is a 70 year old female who carries a diagnosis of bipolar II disorder, ADHD, presenting to the ED on 09/10/21 with increased anxiety and depression, SI x 1 month, low appetite, and hyposomnia. Precipitating factors include that her lithium was decreased about a month ago. Pt is currently presenting with sx of hyposomnia, anxious affect, agitation, low appetite, perseverative thought content, and feelings of hopelessness. Intense somatic preoccupation Plan: increase lithium but ck levels on increased lisinopril seroquel inc as tolerated ritalin held norvasc increased to 5 mg daily seroquel DCed in favor of zyprexa I spent minutes with the patient and/or on the patient floor today, greater than?50% of which was spent counseling/coordinating care. Reason for contiued inpatient stay Substantial Risk for: harm to self
[2021-09-14 18:00] VITALS: BP 141/70; PULSE 74; RESP 17; TEMP 36.9; O2SAT 95
[2021-09-14] MEDS: OLANZapine 2.5 MG TABLET PO (21:56)
[2021-09-14] MEDS: Omeprazole 20 MG CAPSULE.DR PO (21:56)
[2021-09-14] MEDS: Lithium Carbonate 300 MG CAPSULE 600 MG PO (21:56)
[2021-09-15 08:37] LABS: Lithium 1.18 mmol/L (0.60-1.20)
[2021-09-15 08:40] VITALS: BP 153/92; PULSE 85; RESP 16; TEMP 36.2; O2SAT 94
[2021-09-15 08:41] VITALS: BP 153/92; PULSE 85
[2021-09-15] MEDS: amLODIPine Besylate 5 MG TABLET PO (08:41)
[2021-09-15] MEDS: Vitamin E (Dl,Tocopheryl Acet) 180 MG (400 UNIT) CAPSULE PO (08:41)
[2021-09-15] MEDS: buPROPion HCL 75 MG TABLET PO (08:41)
[2021-09-15] MEDS: FLUoxetine HCl 20 MG CAPSULE 40 MG PO (08:42)
[2021-09-15] MEDS: guaiFENesin LA 600 MG TAB.ER.12H PO ×2 (08:42→20:49)
[2021-09-15] MEDS: Ascorbic Acid 500 MG TABLET 2000 MG PO (08:42)
[2021-09-15] MEDS: Fluticasone Propionate Nasal 16 GM SPRAY 1 SPRAY NOSTRIL-B ×2 (08:49→20:49)
--- NOTE | 2021-09-15 14:52 | HO.PSYCHPN ---
Subjective Subjective Date of Service: 09/15/21 Reason For Visit: severe depression and agitation Interim History: pt reports she did not have any nightmares last night and slept well. she had a visitor as well, which she appreciated. she feels a bit jittery today, which she attributes to her increased lithium dose. no complaints or requests. states she is through the worst of her depression and feels she is starting to come out the other side. per staff, pt is eating and sleeping well, med-compliant. Mental Status Exam Mental Status Exam Narrative: The patient is casually dressed and relaxed in appearance. she expresses no SI/HI/AVH. cooperative with interview, no PMA/PMR. speech nml in amount, incr in rate, and nml in loudness. thoughts linear and logical. affect full range normo-intense, non-labile. mood less depressed. Diagnostics Vital Signs (24Hr): Vital Signs - 24 hr 09/14/21 18:00 09/15/21 08:40 09/15/21 08:41 Temperature 98.4 F 97.2 F Pulse Rate 74 85 85 Respiratory Rate 17 16 Blood Pressure 141/70 H 153/92 H 153/92 H Pulse Oximetry 95 94 Body Mass Index 21.5 Labs Results: 09/11/21 07:15 09/11/21 07:15 Labs: Laboratory Results - last 48 hr 09/15/21 07:58 Gross 1.18 Imaging Radiology Impressions: ITS Impressions Chest X-Ray 09/09/21 17:15 IMPRESSION: There is blunting of the right costophrenic angle which may be due to pleural thickening or trace pleural effusion with otherwise clear lungs. Sinuses CT 09/12/21 09:52 IMPRESSION: Clear paranasal sinuses. No evidence of sinusitis. Medications Medications Current Medications Acetaminophen (Acetaminophen 325 Mg Tablet) 650 mg PO Q6H PRN PRN Reason: Headache/Pain Mild Scale (1-3) Last Admin: 09/11/21 10:36 Dose: 650 mg Documented by: Al Hydroxide/Mg Hydroxide (Magnesium Hydrox/Alum Hydrox 30 Ml Oral.Susp) 30 ml PO Q6H PRN PRN Reason: Heartburn/Nausea Amlodipine Besylate (Amlodipine Besylate 5 Mg Tablet) 5 mg PO DAILY [facility]; Protocol Last Admin: 09/15/21 08:41 Dose: 5 mg Documented by: Artificial Tears (Artificial Tears 15 Ml Drops) 2 drop EYE-BOTH Q4H PRN PRN Reason: Dry Eyes Ascorbic Acid (Ascorbic Acid 500 Mg Tablet) 2,000 mg PO DAILY [facility] Last Admin: 09/15/21 08:42 Dose: 2,000 mg Documented by: Benzocaine (Throat Lozenge, Medicated Lozenge) 1 lozenge MUCOUS MEM Q2H PRN PRN Reason: Sore Throat Bupropion HCl (Bupropion Hcl 75 Mg Tablet) 75 mg PO DAILY [facility] Last Admin: 09/15/21 08:41 Dose: 75 mg Documented by: Calcium Carbonate (Calcium Carbonate 500 Mg Tablet) 1,000 mg PO DAILY [facility] Last Admin: 09/15/21 08:42 Dose: 1,000 mg Documented by: Fluoxetine HCl (Fluoxetine Hcl 20 Mg Capsule) 40 mg PO DAILY [facility] Last Admin: 09/15/21 08:42 Dose: 40 mg Documented by: Fluticasone Propionate (Fluticasone Propionate Nasal 16 Gm [place]) 1 spray NOSTRIL-B BID [facility] Last Admin: 09/15/21 08:49 Dose: 1 spray Documented by: Guaifenesin (Guaifenesin La 600 Mg Tab.Er.12h) 600 mg PO BID [facility] Last Admin: 09/15/21 08:42 Dose: 600 mg Documented by: Hydroxyzine HCl (Hydroxyzine Hcl 25 Mg Tablet) 25 mg PO Q6H PRN PRN Reason: Anxiety Last Admin: 09/10/21 11:26 Dose: 25 mg Documented by: Gross Carbonate (Gross Carbonate 300 Mg Capsule) 600 mg PO BEDTIME [facility] Last Admin: 09/14/21 21:56 Dose: 600 mg Documented by: Magnesium Hydroxide (Milk Of Magnesia 30 Ml Oral.Susp) 30 ml PO DAILY PRN PRN Reason: Constipation Olanzapine (Olanzapine 2.5 Mg Tablet) 2.5 mg PO BEDTIME [facility] Last Admin: 09/14/21 21:56 Dose: 2.5 mg Documented by: Olanzapine (Olanzapine 2.5 Mg Tablet) 2.5 mg PO BID PRN PRN Reason: anxiety/restlessness Omeprazole (Omeprazole 20 Mg Capsule.Dr) 20 mg PO BEDTIME [facility] Last Admin: 09/14/21 21:56 Dose: 20 mg Documented by: Tetrahydrozoline HCl (Tetrahydrozoline Hcl 0.05% Oph 15 Ml Drpbtl) 2 drop EYE-BOTH QID PRN PRN Reason: Dry Eyes Last Admin: 09/14/21 10:43 Dose: 2 drop Documented by: Vitamin E (Vitamin E (Dl,Tocopheryl Acet) 180 Mg (400 Unit) Capsule) 180 mg PO DAILY [facility] Last Admin: 09/15/21 08:41 Dose: 180 mg Documented by: Allergies Allergies Allergy/AdvReac Type Severity Reaction Status Date / Time No Known Allergies Allergy Unverified 08/02/20 16:46 Assessment & Plan Assessment & Plan (1) Bipolar II disorder: Status: Acute Code(s): F31.81 - Bipolar II disorder (2) Hypertension: Status: Acute Code(s): I10 - Essential (primary) hypertension Assessment and Plan: Monitor blood pressure stop lisinopril given amlodipine 2.5 daily (3) Leukocytosis: Status: Acute Code(s): D72.829 - Elevated white blood cell count, unspecified Assessment and Plan: sinus films neg staarted on mucinex Assessment and Plan: Pt is a 70 year old female who carries a diagnosis of bipolar II disorder, ADHD, presenting to the ED on 09/10/21 with increased anxiety and depression, SI x 1 month, low appetite, and hyposomnia. Precipitating factors include that her lithium was decreased about a month ago. Pt is currently presenting with sx of hyposomnia, anxious affect, agitation, low appetite, perseverative thought content, and feelings of hopelessness. Intense somatic preoccupation case reviewed with dr dukes and dr leary ent Plan: increase lithium but ck lev cont ssri wellbutrin added monitor lithium levels and adjust ck safety inc amlodipine for htn lisinopril d/c seroqurl DCed in favor of zyprexa. I spent minutes with the patient and/or on the patient floor today, greater than?50% of which was spent counseling/coordinating care. Reason for contiued inpatient stay Substantial Risk for: harm to self
[2021-09-15 20:18] VITALS: BP 134/70; PULSE 77; RESP 19; TEMP 37.2; O2SAT 95
[2021-09-15] MEDS: Omeprazole 20 MG CAPSULE.DR PO (20:49)
[2021-09-15] MEDS: OLANZapine 2.5 MG TABLET PO (20:49)
[2021-09-15] MEDS: Lithium Carbonate 300 MG CAPSULE 600 MG PO (20:49)
[2021-09-16] MEDS: amLODIPine Besylate 5 MG TABLET PO (09:02)
[2021-09-16] MEDS: FLUoxetine HCl 20 MG CAPSULE 40 MG PO (09:02)
[2021-09-16] MEDS: buPROPion HCL 75 MG TABLET PO (09:02)
[2021-09-16] MEDS: guaiFENesin LA 600 MG TAB.ER.12H PO ×2 (09:02→21:10)
[2021-09-16] MEDS: Ascorbic Acid 500 MG TABLET 2000 MG PO (09:02)
[2021-09-16] MEDS: Fluticasone Propionate Nasal 16 GM SPRAY 1 SPRAY NOSTRIL-B ×2 (09:02→21:10)
[2021-09-16] MEDS: Vitamin E (Dl,Tocopheryl Acet) 180 MG (400 UNIT) CAPSULE PO (09:02)
[2021-09-16] MEDS: diazePAM 2 MG TABLET PO (09:24)
[2021-09-16] MEDS: Tetrahydrozoline HCl 0.05% Oph 15 ML DRPBTL 2 DROP EYE-BOTH (09:31)
[2021-09-16 10:02] LABS: Lithium 0.93 mmol/L (0.60-1.20)
--- NOTE | 2021-09-16 12:01 | HO.PSYCHPN ---
Subjective Subjective Date of Service: 09/16/21 Reason For Visit: severe depression and agitation Subjective Notes: Conditional Voluntary Guardianship: No Medical Problems Affecting Mental Status: No Interim History: Pt seen in f/u mood anxious still somatic but less so Medication Compliance: Yes Attending Groups: Yes Review of Systems Medical Review of Systems: unchanged Mental Status Exam Mental Status Exam Narrative: Pt anxious depressed some improvement logical goal directed denies active si no reyes anxious in appearance Diagnostics Vital Signs (24Hr): Vital Signs - 24 hr 09/15/21 20:18 Temperature 99.0 F Pulse Rate 77 Respiratory Rate 19 Blood Pressure 134/70 Pulse Oximetry 95 Body Mass Index 21.5 Labs Results: 09/11/21 07:15 09/11/21 07:15 Labs: Laboratory Results - last 48 hr 09/15/21 09/16/21 07:58 09:37 Ginger Blue 1.18 0.93 Imaging Radiology Impressions: ITS Impressions Chest X-Ray 09/09/21 17:15 IMPRESSION: There is blunting of the right costophrenic angle which may be due to pleural thickening or trace pleural effusion with otherwise clear lungs. Sinuses CT 09/12/21 09:52 IMPRESSION: Clear paranasal sinuses. No evidence of sinusitis. Medications Medications Current Medications Acetaminophen (Acetaminophen 325 Mg Tablet) 650 mg PO Q6H PRN PRN Reason: Headache/Pain Mild Scale (1-3) Last Admin: 09/11/21 10:36 Dose: 650 mg Documented by: Al Hydroxide/Mg Hydroxide (Magnesium Hydrox/Alum Hydrox 30 Ml Oral.Susp) 30 ml PO Q6H PRN PRN Reason: Heartburn/Nausea Amlodipine Besylate (Amlodipine Besylate 5 Mg Tablet) 5 mg PO DAILY [facility]; Protocol Last Admin: 09/16/21 09:02 Dose: 5 mg Documented by: Artificial Tears (Artificial Tears 15 Ml Drops) 2 drop EYE-BOTH Q4H PRN PRN Reason: Dry Eyes Ascorbic Acid (Ascorbic Acid 500 Mg Tablet) 2,000 mg PO DAILY [facility] Last Admin: 09/16/21 09:02 Dose: 2,000 mg Documented by: Benzocaine (Throat Lozenge, Medicated Lozenge) 1 lozenge MUCOUS MEM Q2H PRN PRN Reason: Sore Throat Bupropion HCl (Bupropion Hcl 75 Mg Tablet) 75 mg PO DAILY [facility] Last Admin: 09/16/21 09:02 Dose: 75 mg Documented by: Calcium Carbonate (Calcium Carbonate 500 Mg Tablet) 1,000 mg PO DAILY [facility] Last Admin: 09/16/21 09:02 Dose: 1,000 mg Documented by: Diazepam (Diazepam 2 Mg Tablet) 2 mg PO Q6H PRN PRN Reason: anxiety/restlessness Last Admin: 09/16/21 09:24 Dose: 1 mg Documented by: Fluoxetine HCl (Fluoxetine Hcl 20 Mg Capsule) 40 mg PO DAILY [facility] Last Admin: 09/16/21 09:02 Dose: 40 mg Documented by: Fluticasone Propionate (Fluticasone Propionate Nasal 16 Gm [place]) 1 spray NOSTRIL-B BID [facility] Last Admin: 09/16/21 09:02 Dose: 1 spray Documented by: Guaifenesin (Guaifenesin La 600 Mg Tab.Er.12h) 600 mg PO BID [facility] Last Admin: 09/16/21 09:02 Dose: 600 mg Documented by: Hydroxyzine HCl (Hydroxyzine Hcl 25 Mg Tablet) 25 mg PO Q6H PRN PRN Reason: Anxiety Last Admin: 09/10/21 11:26 Dose: 25 mg Documented by: Ginger Blue Carbonate (Ginger Blue Carbonate 300 Mg Capsule) 450 mg PO BEDTIME [facility] Magnesium Hydroxide (Milk Of Magnesia 30 Ml Oral.Susp) 30 ml PO DAILY PRN PRN Reason: Constipation Olanzapine (Olanzapine 2.5 Mg Tablet) 2.5 mg PO BID PRN PRN Reason: anxiety/restlessness Olanzapine (Olanzapine 5 Mg Tablet) 5 mg PO BEDTIME [facility] Omeprazole (Omeprazole 20 Mg Capsule.Dr) 20 mg PO BEDTIME [facility] Last Admin: 09/15/21 20:49 Dose: 20 mg Documented by: Tetrahydrozoline HCl (Tetrahydrozoline Hcl 0.05% Oph 15 Ml Drpbtl) 2 drop EYE-BOTH QID PRN PRN Reason: Dry Eyes Last Admin: 09/16/21 09:31 Dose: 2 drop Documented by: Vitamin E (Vitamin E (Dl,Tocopheryl Acet) 180 Mg (400 Unit) Capsule) 180 mg PO DAILY [facility] Last Admin: 09/16/21 09:02 Dose: 180 mg Documented by: Allergies Allergies Allergy/AdvReac Type Severity Reaction Status Date / Time No Known Allergies Allergy Unverified 08/02/20 16:46 Assessment & Plan Assessment & Plan (1) Bipolar II disorder: Status: Acute Code(s): F31.81 - Bipolar II disorder (2) Hypertension: Status: Acute Code(s): I10 - Essential (primary) hypertension Assessment and Plan: Monitor blood pressure stop lisinopril given amlodipine 5 mg daily (3) Leukocytosis: Status: Acute Code(s): D72.829 - Elevated white blood cell count, unspecified Assessment and Plan: sinus films neg staarted on mucinex Assessment and Plan: Pt is a 70 year old female who carries a diagnosis of bipolar II disorder, ADHD, presenting to the ED on 09/10/21 with increased anxiety and depression, SI x 1 month, low appetite, and hyposomnia. Precipitating factors include that her lithium was decreased about a month ago. Pt is currently presenting with sx of hyposomnia, anxious affect, agitation, low appetite, perseverative thought content, and feelings of hopelessness. Intense somatic preoccupation case reviewed with dr dukes and dr leary ent Plan: increase lithium but ck lev cont ssri wellbutrin added monitor lithium levels and adjust ck safety inc amlodipine for htn lisinopril d/c inc zyprexa 5 mg hs . I spent minutes with the patient and/or on the patient floor today, greater than?50% of which was spent counseling/coordinating care. Reason for contiued inpatient stay Substantial Risk for: inability to function, rapid decompensation and med/psych decompensation
[2021-09-16 17:56] VITALS: BP 168/89; PULSE 83; RESP 18; TEMP 37.2; O2SAT 97
[2021-09-16] MEDS: Lithium Carbonate 300 MG TABLET 450 MG PO (21:08)
[2021-09-16] MEDS: Omeprazole 20 MG CAPSULE.DR PO (21:10)
[2021-09-16] MEDS: OLANZapine 5 MG TABLET PO (21:10)
[2021-09-17] MEDS: Ascorbic Acid 500 MG TABLET 2000 MG PO (08:47)
[2021-09-17] MEDS: buPROPion HCL 75 MG TABLET PO (08:49)
[2021-09-17] MEDS: FLUoxetine HCl 20 MG CAPSULE 40 MG PO (08:49)
[2021-09-17 08:50] VITALS: BP 178/85; PULSE 87
[2021-09-17] MEDS: Vitamin E (Dl,Tocopheryl Acet) 180 MG (400 UNIT) CAPSULE PO (08:50)
[2021-09-17] MEDS: amLODIPine Besylate 5 MG TABLET PO (08:50)
[2021-09-17] MEDS: guaiFENesin LA 600 MG TAB.ER.12H PO ×2 (08:51→22:13)
[2021-09-17] MEDS: Fluticasone Propionate Nasal 16 GM SPRAY 1 SPRAY NOSTRIL-B ×2 (08:52→22:14)
[2021-09-17 09:00] VITALS: BP 178/85; PULSE 87; RESP 18; TEMP 37; O2SAT 94
--- NOTE | 2021-09-17 09:55 | P.PNPSI_ITS ---
Subjective Subjective Date of Service: 10/17/21 Reason For Visit: severe depression and agitation Subjective Notes: Conditional Voluntary Guardianship: No Medical Problems Affecting Mental Status: No Interim History: Patient remains anxious and depressed ruminating overwhelmed and fearful frequently. Able to take in information Medication Compliance: Yes Side effects from medications: Yes Attending Groups: Yes Review of Systems Acute medical concerns: Yes Hypertension Review of Systems: Improved throat congestion Mental Status Exam Mental Status Exam Narrative: Patient appropriately groomed sad and anxious looking in appearance with tremor noted. Speech clear thinking goal-directed and logical. Still with catastrophic thinking intermittent helplessness and hopelessness denies active self-harm no hallucinations or delusional thinking insight generally improving Diagnostics Vital Signs (24Hr): Vital Signs - 24 hr 09/16/21 17:56 09/17/21 08:50 Temperature 99.0 F Pulse Rate 83 87 Respiratory Rate 18 Blood Pressure 168/89 H 178/85 H Pulse Oximetry 97 Body Mass Index 21.5 Labs Results: 09/11/21 07:15 09/11/21 07:15 Labs: Laboratory Results - last 48 hr 09/16/21 09:37 Dat[place] 0.93 Imaging Radiology Impressions: ITS Impressions Chest X-Ray 09/09/21 17:15 IMPRESSION: There is blunting of the right costophrenic angle which may be due to pleural thickening or trace pleural effusion with otherwise clear lungs. Sinuses CT 09/12/21 09:52 IMPRESSION: Clear paranasal sinuses. No evidence of sinusitis. Medications Medications Current Medications Acetaminophen (Acetaminophen 325 Mg Tablet) 650 mg PO Q6H PRN PRN Reason: Headache/Pain Mild Scale (1-3) Last Admin: 09/11/21 10:36 Dose: 650 mg Documented by: Al Hydroxide/Mg Hydroxide (Magnesium Hydrox/Alum Hydrox 30 Ml Oral.Susp) 30 ml PO Q6H PRN PRN Reason: Heartburn/Nausea Amlodipine Besylate (Amlodipine Besylate 5 Mg Tablet) 5 mg PO DAILY [facility]; Protocol Last Admin: 09/17/21 08:50 Dose: 5 mg Documented by: Artificial Tears (Artificial Tears 15 Ml Drops) 2 drop EYE-BOTH Q4H PRN PRN Reason: Dry Eyes Ascorbic Acid (Ascorbic Acid 500 Mg Tablet) 2,000 mg PO DAILY [facility] Last Admin: 09/17/21 08:47 Dose: 2,000 mg Documented by: Benzocaine (Throat Lozenge, Medicated Lozenge) 1 lozenge MUCOUS MEM Q2H PRN PRN Reason: Sore Throat Bupropion HCl (Bupropion Hcl 75 Mg Tablet) 75 mg PO DAILY [facility] Last Admin: 09/17/21 08:49 Dose: 75 mg Documented by: Calcium Carbonate (Calcium Carbonate 500 Mg Tablet) 1,000 mg PO DAILY [facility] Last Admin: 09/17/21 08:48 Dose: 1,000 mg Documented by: Diazepam (Diazepam 2 Mg Tablet) 2 mg PO Q6H PRN PRN Reason: anxiety/restlessness Last Admin: 09/16/21 09:24 Dose: 1 mg Documented by: Fluoxetine HCl (Fluoxetine Hcl 20 Mg Capsule) 40 mg PO DAILY [facility] Last Admin: 09/17/21 08:49 Dose: 40 mg Documented by: Fluticasone Propionate (Fluticasone Propionate Nasal 16 Gm [place]) 1 spray NOSTRIL-B BID [facility] Last Admin: 09/17/21 08:52 Dose: 1 spray Documented by: Guaifenesin (Guaifenesin La 600 Mg Tab.Er.12h) 600 mg PO BID [facility] Last Admin: 09/17/21 08:51 Dose: 600 mg Documented by: Hydroxyzine HCl (Hydroxyzine Hcl 25 Mg Tablet) 25 mg PO Q6H PRN PRN Reason: Anxiety Last Admin: 09/10/21 11:26 Dose: 25 mg Documented by: Datil Carbonate (Datil Carbonate 300 Mg Tablet) 450 mg PO BEDTIME [facility] Last Admin: 09/16/21 21:08 Dose: 450 mg Documented by: Magnesium Hydroxide (Milk Of Magnesia 30 Ml Oral.Susp) 30 ml PO DAILY PRN PRN Reason: Constipation Olanzapine (Olanzapine 2.5 Mg Tablet) 2.5 mg PO BID PRN PRN Reason: anxiety/restlessness Olanzapine (Olanzapine 5 Mg Tablet) 5 mg PO BEDTIME [facility] Last Admin: 09/16/21 21:10 Dose: 5 mg Documented by: Omeprazole (Omeprazole 20 Mg Capsule.Dr) 20 mg PO BEDTIME [facility] Last Admin: 09/16/21 21:10 Dose: 20 mg Documented by: Tetrahydrozoline HCl (Tetrahydrozoline Hcl 0.05% Oph 15 Ml Drpbtl) 2 drop EYE- BOTH QID PRN PRN Reason: Dry Eyes Last Admin: 09/16/21 09:31 Dose: 2 drop Documented by: Vitamin E (Vitamin E (Dl,Tocopheryl Acet) 180 Mg (400 Unit) Capsule) 180 mg PO DAILY [facility] Last Admin: 09/17/21 08:50 Dose: 180 mg Documented by: Allergies Allergies Allergy/AdvReac Type Severity Reaction Status Date / Time No Known Allergies Allergy Unverified 08/02/20 16:46 Assessment & Plan Assessment & Plan (1) Bipolar II disorder: Status: Acute Code(s): F31.81 - Bipolar II disorder (2) Hypertension: Status: Acute Code(s): I10 - Essential (primary) hypertension Assessment and Plan: Monitor blood pressure stop lisinopril given amlodipine 5 mg daily (3) Leukocytosis: Status: Acute Code(s): D72.829 - Elevated white blood cell count, unspecified Assessment and Plan: sinus films neg staarted on mucinex Assessment and Plan: Pt is a 70 year old female who carries a diagnosis of bipolar II disorder, ADHD, presenting to the ED on 09/10/21 with increased anxiety and depression Patient showing some improvement but continued with significant tremor may not c ontinue to tolerate lithium level should be pending down with discontinuation of lisinopril patient agrees to start Lamictal risks benefits reviewed Plan: Continue Zyprexa Check lithium level Start Lamictal 25 at bedtime Increase amlodipine . I spent __30____ minutes with the patient and/or on the patient floor today, greater than?50% of which was spent counseling/coordinating care. Reason for contiued inpatient stay Substantial Risk for: inability to function and rapid decompensation
[2021-09-17 18:00] VITALS: BP 163/87; PULSE 72; RESP 16; TEMP 36.8; O2SAT 97
[2021-09-17] MEDS: lamoTRIgine 25 MG TABLET PO (22:13)
[2021-09-17] MEDS: OLANZapine 5 MG TABLET PO (22:13)
[2021-09-17] MEDS: Omeprazole 20 MG CAPSULE.DR PO (22:14)
[2021-09-17] MEDS: Lithium Carbonate 300 MG TABLET 450 MG PO (22:14)
[2021-09-18 07:51] LABS: Lithium 0.79 mmol/L (0.60-1.20)
[2021-09-18 07:58] LABS: Cholesterol 156 mg/dL; HDL Cholesterol 46 mg/dL; LDL Cholesterol Calculated 81 mg/dl; Triglycerides 149 mg/dL
[2021-09-18] MEDS: buPROPion HCL 100 MG TABLET PO (08:23)
[2021-09-18] MEDS: FLUoxetine HCl 20 MG CAPSULE 40 MG PO (08:23)
[2021-09-18] MEDS: Vitamin E (Dl,Tocopheryl Acet) 180 MG (400 UNIT) CAPSULE PO (08:23)
[2021-09-18] MEDS: Ascorbic Acid 500 MG TABLET 2000 MG PO (08:23)
[2021-09-18 08:24] VITALS: BP 205/93; PULSE 72
[2021-09-18] MEDS: guaiFENesin LA 600 MG TAB.ER.12H PO ×2 (08:24→21:57)
[2021-09-18] MEDS: amLODIPine Besylate 5 MG TABLET PO (08:24)
[2021-09-18] MEDS: Fluticasone Propionate Nasal 16 GM SPRAY 1 SPRAY NOSTRIL-B (08:58)
[2021-09-18 09:00] VITALS: BP 205/93; PULSE 72; TEMP 34.8; O2SAT 98
[2021-09-18 09:39] VITALS: BP 143/82; PULSE 94
--- NOTE | 2021-09-18 10:16 | P.PNPSI_ITS ---
Subjective Subjective Date of Service: 09/18/21 Reason For Visit: severe depression and agitation Subjective Notes: Conditional Voluntary Guardianship: No Medical Problems Affecting Mental Status: No Interim History: Pt has periods of severe anxiety dysphoria but continues to generally trend better sleep ok has periods severe overwhelming somatic anxiety Medication Compliance: Yes Mental Status Exam Mental Status Exam Narrative: Patient appropriately groomed sad and anxious looking in appearance with tremor noted. Speech clear thinking goal-directed and logical. Still with catastrophic thinking intermittent helplessness and hopelessness denies active self-harm no hallucinations or delusional thinking insight generally improving tremor noted but improved still quite ferarful she will not get better Diagnostics Vital Signs (24Hr): Vital Signs - 24 hr 09/17/21 18:00 09/18/21 08:24 09/18/21 09:00 Temperature 98.3 F 94.7 F L Pulse Rate 72 72 72 Respiratory Rate 16 Blood Pressure 163/87 H 205/93 H 205/93 H Pulse Oximetry 97 98 09/18/21 09:39 Temperature Pulse Rate 94 Respiratory Rate Blood Pressure 143/82 H Pulse Oximetry Body Mass Index 21.5 Labs Results: 09/11/21 07:15 09/11/21 07:15 Labs: Laboratory Results - last 48 hr 09/18/21 09/18/21 07:33 07:33 Triglycerides 149 Cholesterol 156 LDL Cholesterol, Calc 81 HDL Cholesterol 46 [place] 0.79 Imaging Radiology Impressions: ITS Impressions Chest X-Ray 09/09/21 17:15 IMPRESSION: There is blunting of the right costophrenic angle which may be due to pleural thickening or trace pleural effusion with otherwise clear lungs. Sinuses CT 09/12/21 09:52 IMPRESSION: Clear paranasal sinuses. No evidence of sinusitis. Medications Medications Current Medications Acetaminophen (Acetaminophen 325 Mg Tablet) 650 mg PO Q6H PRN PRN Reason: Headache/Pain Mild Scale (1-3) Last Admin: 09/11/21 10:36 Dose: 650 mg Documented by: Al Hydroxide/Mg Hydroxide (Magnesium Hydrox/Alum Hydrox 30 Ml Oral.Susp) 30 ml PO Q6H PRN PRN Reason: Heartburn/Nausea Amlodipine Besylate (Amlodipine Besylate 5 Mg Tablet) 5 mg PO DAILY [facility]; Protocol Last Admin: 09/18/21 08:24 Dose: 5 mg Documented by: Artificial Tears (Artificial Tears 15 Ml Drops) 2 drop EYE-BOTH Q4H PRN PRN Reason: Dry Eyes Ascorbic Acid (Ascorbic Acid 500 Mg Tablet) 2,000 mg PO DAILY [facility] Last Admin: 09/18/21 08:23 Dose: 2,000 mg Documented by: Benzocaine (Throat Lozenge, Medicated Lozenge) 1 lozenge MUCOUS MEM Q2H PRN PRN Reason: Sore Throat Bupropion HCl (Bupropion Hcl 100 Mg Tablet) 100 mg PO DAILY [facility] Last Admin: 09/18/21 08:23 Dose: 100 mg Documented by: Calcium Carbonate (Calcium Carbonate 500 Mg Tablet) 1,000 mg PO DAILY [facility] Last Admin: 09/18/21 08:23 Dose: 1,000 mg Documented by: Diazepam (Diazepam 2 Mg Tablet) 2 mg PO Q6H PRN PRN Reason: anxiety/restlessness Last Admin: 09/16/21 09:24 Dose: 1 mg Documented by: Fluoxetine HCl (Fluoxetine Hcl 20 Mg Capsule) 40 mg PO DAILY [facility] Last Admin: 09/18/21 08:23 Dose: 40 mg Documented by: Fluticasone Propionate (Fluticasone Propionate Nasal 16 Gm [place]) 1 spray NOSTRIL-B BID [facility] Last Admin: 09/18/21 08:58 Dose: 1 spray Documented by: Guaifenesin (Guaifenesin La 600 Mg Tab.Er.12h) 600 mg PO BID [facility] Last Admin: 09/18/21 08:24 Dose: 600 mg Documented by: Hydroxyzine HCl (Hydroxyzine Hcl 25 Mg Tablet) 25 mg PO Q6H PRN PRN Reason: Anxiety Last Admin: 09/10/21 11:26 Dose: 25 mg Documented by: Lamotrigine (Lamotrigine 25 Mg Tablet) 25 mg PO BEDTIME [facility] Last Admin: 09/17/21 22:13 Dose: 25 mg Documented by: [place] Carbonate ([place] Carbonate 300 Mg Tablet) 450 mg PO BEDTIME [facility] Last Admin: 09/17/21 22:14 Dose: 450 mg Documented by: Magnesium Hydroxide (Milk Of Magnesia 30 Ml Oral.Susp) 30 ml PO DAILY PRN PRN Reason: Constipation Olanzapine (Olanzapine 2.5 Mg Tablet) 2.5 mg PO BID PRN PRN Reason: anxiety/restlessness Olanzapine (Olanzapine 5 Mg Tablet) 5 mg PO BEDTIME [facility] Last Admin: 09/17/21 22:13 Dose: 5 mg Documented by: Omeprazole (Omeprazole 20 Mg Capsule.Dr) 20 mg PO BEDTIME [facility] Last Admin: 09/17/21 22:14 Dose: 20 mg Documented by: Tetrahydrozoline HCl (Tetrahydrozoline Hcl 0.05% Oph 15 Ml Drpbtl) 2 drop EYE- BOTH QID PRN PRN Reason: Dry Eyes Last Admin: 09/16/21 09:31 Dose: 2 drop Documented by: Vitamin E (Vitamin E (Dl,Tocopheryl Acet) 180 Mg (400 Unit) Capsule) 180 mg PO DAILY [facility] Last Admin: 09/18/21 08:23 Dose: 180 mg Documented by: Allergies Allergies Allergy/AdvReac Type Severity Reaction Status Date / Time No Known Allergies Allergy Unverified 08/02/20 16:46 Assessment & Plan Assessment & Plan (1) Bipolar II disorder: Status: Acute Code(s): F31.81 - Bipolar II disorder (2) Hypertension: Status: Acute Code(s): I10 - Essential (primary) hypertension Assessment and Plan: Monitor blood pressure inc amlodipine 7.5 am (3) Leukocytosis: Status: Acute Code(s): D72.829 - Elevated white blood cell count, unspecified Assessment and Plan: sinus films neg staarted on mucinex Assessment and Plan: Pt is a 70 year old female who carries a diagnosis of bipolar II disorder, ADHD, presenting to the ED on 09/10/21 with increased anxiety and depression Patient showing some improvement but continued with significant tremor may not continue to tolerate lithium level should be pending down with discontinuation of lisinopril patient agrees to start Lamictal risks benefits reviewed Plan: Continue Zyprexa lith level 0.78 cont Lamictal 25 at bedtime wellbutrin 100 daily . I spent minutes with the patient and/or on the patient floor today, gr eater than?50% of which was spent counseling/coordinating care. Reason for contiued inpatient stay Substantial Risk for: inability to function, rapid decompensation and med/psych decompensation
[2021-09-18 10:53] VITALS: BP 170/76; PULSE 80
[2021-09-18] MEDS: amLODIPine Besylate 2.5 MG TABLET PO (10:53)
[2021-09-18 13:00] VITALS: BP 162/82; PULSE 74; TEMP 35.5; O2SAT 97
[2021-09-18 18:00] VITALS: BP 166/78; PULSE 74; RESP 18; TEMP 36.9; O2SAT 98
[2021-09-18] MEDS: diazePAM 2 MG TABLET PO (20:29)
[2021-09-18] MEDS: Lithium Carbonate 300 MG TABLET 450 MG PO (21:55)
[2021-09-18] MEDS: OLANZapine 5 MG TABLET PO (21:55)
[2021-09-18] MEDS: lamoTRIgine 25 MG TABLET PO (21:57)
[2021-09-18] MEDS: Omeprazole 20 MG CAPSULE.DR PO (21:58)
[2021-09-19 09:00] VITALS: BP 164/83; PULSE 92; TEMP 36.9; O2SAT 94
[2021-09-19 09:22] VITALS: BP 164/83; PULSE 92
[2021-09-19] MEDS: amLODIPine Besylate 2.5 MG TABLET 7.5 MG PO (09:22)
[2021-09-19] MEDS: Vitamin E (Dl,Tocopheryl Acet) 180 MG (400 UNIT) CAPSULE PO (09:22)
[2021-09-19] MEDS: Ascorbic Acid 500 MG TABLET 2000 MG PO (09:23)
[2021-09-19] MEDS: buPROPion HCL 100 MG TABLET PO (09:23)
[2021-09-19] MEDS: guaiFENesin LA 600 MG TAB.ER.12H PO ×2 (09:23→20:53)
[2021-09-19] MEDS: FLUoxetine HCl 20 MG CAPSULE 40 MG PO (09:23)
[2021-09-19] MEDS: Fluticasone Propionate Nasal 16 GM SPRAY 1 SPRAY NOSTRIL-B ×2 (09:24→20:53)
[2021-09-19 13:00] VITALS: BP 162/84; PULSE 90; TEMP 36.9; O2SAT 94
--- NOTE | 2021-09-19 17:26 | HO.PSYCHPN ---
Subjective Subjective Date of Service: 09/19/21 Reason For Visit: severe depression and agitation Subjective Notes: Conditional Voluntary Guardianship: No Medical Problems Affecting Mental Status: No Interim History: Patient less ruminating future oriented much decrease somatic concerns and preoccupation. Patient feels stable for for discharge tomorrow patient feeling better and encouraged Medication Compliance: Yes Side effects from medications: Yes Attending Groups: Yes Mental Status Exam Mental Status Exam Narrative: Patient appropriately groomed sad and anxious looking in appearance with tremor noted. Speech clear thinking goal-directed and logical. improved thinking intermittent helplessness and hopelessness much improved no hallucinations or delusional thinking insight generally improving tremor noted but improved still quite ferarful she will not get better Diagnostics Vital Signs (24Hr): Vital Signs - 24 hr 09/18/21 18:00 09/19/21 09:00 09/19/21 09:22 Temperature 98.4 F 98.4 F Pulse Rate 74 92 92 Respiratory Rate 18 Blood Pressure 166/78 H 164/83 H 164/83 H Pulse Oximetry 98 94 09/19/21 13:00 Temperature 98.4 F Pulse Rate 90 Respiratory Rate Blood Pressure 162/84 H Pulse Oximetry 94 Body Mass Index 21.5 Labs Results: 09/11/21 07:15 09/11/21 07:15 Labs: Laboratory Results - last 48 hr 09/18/21 09/18/21 07:33 07:33 Triglycerides 149 Cholesterol 156 LDL Cholesterol, Calc 81 HDL Cholesterol 46 [place] 0.79 Imaging Radiology Impressions: ITS Impressions Chest X-Ray 09/09/21 17:15 IMPRESSION: There is blunting of the right costophrenic angle which may be due to pleural thickening or trace pleural effusion with otherwise clear lungs. Sinuses CT 09/12/21 09:52 IMPRESSION: Clear paranasal sinuses. No evidence of sinusitis. Medications Medications Current Medications Acetaminophen (Acetaminophen 325 Mg Tablet) 650 mg PO Q6H PRN PRN Reason: Headache/Pain Mild Scale (1-3) Last Admin: 09/11/21 10:36 Dose: 650 mg Documented by: Al Hydroxide/Mg Hydroxide (Magnesium Hydrox/Alum Hydrox 30 Ml Oral.Susp) 30 ml PO Q6H PRN PRN Reason: Heartburn/Nausea Amlodipine Besylate (Amlodipine Besylate 2.5 Mg Tablet) 7.5 mg PO DAILY [facility]; Protocol Last Admin: 09/19/21 09:22 Dose: 7.5 mg Documented by: Artificial Tears (Artificial Tears 15 Ml Drops) 2 drop EYE-BOTH Q4H PRN PRN Reason: Dry Eyes Ascorbic Acid (Ascorbic Acid 500 Mg Tablet) 2,000 mg PO DAILY [facility] Last Admin: 09/19/21 09:23 Dose: 2,000 mg Documented by: Benzocaine (Throat Lozenge, Medicated Lozenge) 1 lozenge MUCOUS MEM Q2H PRN PRN Reason: Sore Throat Bupropion HCl (Bupropion Hcl 100 Mg Tablet) 100 mg PO DAILY [facility] Last Admin: 09/19/21 09:23 Dose: 100 mg Documented by: Calcium Carbonate (Calcium Carbonate 500 Mg Tablet) 1,000 mg PO DAILY [facility] Last Admin: 09/19/21 09:23 Dose: 1,000 mg Documented by: Diazepam (Diazepam 2 Mg Tablet) 2 mg PO Q6H PRN PRN Reason: anxiety/restlessness Last Admin: 09/18/21 20:29 Dose: 2 mg Documented by: Fluoxetine HCl (Fluoxetine Hcl 20 Mg Capsule) 40 mg PO DAILY [facility] Last Admin: 09/19/21 09:23 Dose: 40 mg Documented by: Fluticasone Propionate (Fluticasone Propionate Nasal 16 Gm [employer]) 1 spray NOSTRIL-B BID [facility] Last Admin: 09/19/21 09:24 Dose: 1 spray Documented by: Guaifenesin (Guaifenesin La 600 Mg Tab.Er.12h) 600 mg PO BID [facility] Last Admin: 09/19/21 09:23 Dose: 600 mg Documented by: Hydroxyzine HCl (Hydroxyzine Hcl 25 Mg Tablet) 25 mg PO Q6H PRN PRN Reason: Anxiety Last Admin: 09/10/21 11:26 Dose: 25 mg Documented by: Lamotrigine (Lamotrigine 25 Mg Tablet) 25 mg PO BEDTIME [facility] Last Admin: 09/18/21 21:57 Dose: 25 mg Documented by: [place] Carbonate ([place] Carbonate 300 Mg Tablet) 450 mg PO BEDTIME [facility] Last Admin: 09/18/21 21:55 Dose: 450 mg Documented by: Magnesium Hydroxide (Milk Of Magnesia 30 Ml Oral.Susp) 30 ml PO DAILY PRN PRN Reason: Constipation Olanzapine (Olanzapine 2.5 Mg Tablet) 2.5 mg PO BID PRN PRN Reason: anxiety/restlessness Olanzapine (Olanzapine 5 Mg Tablet) 5 mg PO BEDTIME [facility] Last Admin: 09/18/21 21:55 Dose: 5 mg Documented by: Omeprazole (Omeprazole 20 Mg Capsule.Dr) 20 mg PO BEDTIME [facility] Last Admin: 09/18/21 21:58 Dose: 20 mg Documented by: Tetrahydrozoline HCl (Tetrahydrozoline Hcl 0.05% Oph 15 Ml Drpbtl) 2 drop EYE-BOTH QID PRN PRN Reason: Dry Eyes Last Admin: 09/16/21 09:31 Dose: 2 drop Documented by: Vitamin E (Vitamin E (Dl,Tocopheryl Acet) 180 Mg (400 Unit) Capsule) 180 mg PO DAILY [facility] Last Admin: 09/19/21 09:22 Dose: 180 mg Documented by: Allergies Allergies Allergy/AdvReac Type Severity Reaction Status Date / Time No Known Allergies Allergy Unverified 08/02/20 16:46 Assessment & Plan Assessment & Plan (1) Bipolar II disorder: Status: Acute Code(s): F31.81 - Bipolar II disorder (2) Hypertension: Status: Acute Code(s): I10 - Essential (primary) hypertension Assessment and Plan: Monitor blood pressure inc amlodipine 7.5 am (3) Leukocytosis: Status: Acute Code(s): D72.829 - Elevated white blood cell count, unspecified Assessment and Plan: sinus films neg staarted on mucinex Assessment and Plan: Pt is a 70 year old female who carries a diagnosis of bipolar II disorder, ADHD, presenting to the ED on 09/10/21 with increased anxiety and depression Patient showing some improvement but continued with significant tremor may not continue to tolerate lithium level should be pending down with discontinuation of lisinopril patient agrees to start Lamictal risks benefits reviewed Plan: Continue Zyprexa 5 mg bedtime Check lithium level in the morning cont Lamictal 25 at bedtime Increase wellbutrin 150 mg daily . I spent __25____ minutes with the patient and/or on the patient floor today, greater than?50% of which was spent counseling/coordinating care. Reason for contiued inpatient stay Substantial Risk for: inability to function and rapid decompensation
[2021-09-19] MEDS: Lithium Carbonate 300 MG TABLET 450 MG PO (20:54)
[2021-09-19] MEDS: lamoTRIgine 25 MG TABLET PO (20:54)
[2021-09-19] MEDS: OLANZapine 5 MG TABLET PO (20:55)
[2021-09-19] MEDS: Omeprazole 20 MG CAPSULE.DR PO (20:55)
[2021-09-19 21:33] VITALS: BP 168/93; PULSE 74; RESP 17; TEMP 36.8; O2SAT 97
[2021-09-20 07:07] LABS: Lithium 0.89 mmol/L (0.60-1.20)
[2021-09-20 08:20] VITALS: BP 158/79; PULSE 91
[2021-09-20] MEDS: FLUoxetine HCl 20 MG CAPSULE 40 MG PO (08:20)
[2021-09-20] MEDS: amLODIPine Besylate 2.5 MG TABLET 7.5 MG PO (08:20)
[2021-09-20] MEDS: Vitamin E (Dl,Tocopheryl Acet) 180 MG (400 UNIT) CAPSULE PO (08:20)
[2021-09-20] MEDS: buPROPion HCL 100 MG TABLET PO (08:21)
[2021-09-20] MEDS: Ascorbic Acid 500 MG TABLET 2000 MG PO (08:21)
[2021-09-20] MEDS: guaiFENesin LA 600 MG TAB.ER.12H PO (08:22)
[2021-09-20] MEDS: Fluticasone Propionate Nasal 16 GM SPRAY 1 SPRAY NOSTRIL-B (08:27)
[2021-09-20 08:48] VITALS: BP 158/79; PULSE 91; TEMP 35.2; O2SAT 97
--- NOTE | 2021-09-20 08:52 | P.DS_ITS ---
DS: Providers Provider Date of Service: 09/20/21 Date of admission: 09/09/21 21:14 Primary care physician: Unknown Physician Consults: 09/10/21 16:56 Consult to Hospitalist Routine Consulting Provider: Hospitalist Reason For Exam: hypertension inc cbc ? need chest ct DS: Diagnosis Discharge Diagnosis (1) Bipolar II disorder: Status: Acute (2) Hypertension: Status: Acute (3) Leukocytosis: Status: Acute DS: Medications Discharge Medications Home Medications: Home Medications Medication Instructions Recorded Confirmed ascorbic acid (vitamin C) 2,000 mg 2,000 mg PO DAILY 09/09/21 09/09/21 tablet,extended release calcium carbonate 600 mg calcium 1,200 mg PO DAILY 09/09/21 09/09/21 (1,500 mg) tablet (Calcium) estradiol 10 mcg vaginal tablet 1 tab VAGINAL WESA 09/09/21 09/09/21 (Yuvafem) fluticasone propionate 50 1 spray INTRANASAL BID 09/09/21 09/09/21 mcg/actuation nasal spray,suspension menthol-herbal drugs lozenges 1 leonela MUCOUS MEMBRANE Q2H 09/09/21 09/09/21 (Ricola) vitamin E 400 unit capsule 400 unit PO DAILY 09/09/21 09/09/21 Previous Rx's Medication Instructions Recorded amlodipine 2.5 mg tablet 7.5 mg PO DAILY 30 Days #90 tab 09/19/21 bupropion HCl 150 mg tablet,12 hr 150 mg PO QAM 30 Days #30 tab 09/19/21 sustained-release diazepam 2 mg tablet 1 tab PO BID PRN 30 Days #60 tab 09/19/21 fluoxetine 40 mg capsule 40 mg PO DAILY 30 Days #30 cap 09/19/21 guaifenesin 600 mg tablet, 600 mg PO BID 30 Days #60 tab 09/19/21 extended release 12 hr (Mucinex) lamotrigine 25 mg chewable 25 mg PO BID 30 Days #60 ea 09/19/21 dispersible tablet lithium carbonate 300 mg tablet 450 mg PO BEDTIME 30 Days #45 tab 09/19/21 olanzapine 5 mg tablet 5 mg PO BEDTIME 30 Days #30 tab 09/19/21 Mental Status Exam Mental Status Exam Narrative: Patient appropriately groomed mildly anxious looking in appearance with tremor noted. Speech clear thinking goal-directed and logical. improved thinking much improved no hallucinations or delusional thinking insight generally improving tremor noted but improved still needs much reassurance mood remains anxious and somewhat depressed restricted affect but significantly improved no self-harming thoughts feels stable for discharge Data Data Completed and Pending Completed studies during hospitalization [Text1]: 09/15/21 09/16/21 09/18/21 07:58 09:37 07:33 Triglycerides Cholesterol LDL Cholesterol, Calc HDL Cholesterol [place] 1.18 0.93 0.79 09/18/21 09/20/21 07:33 06:47 Triglycerides 149 Cholesterol 156 LDL Cholesterol, Calc 81 HDL Cholesterol 46 [place] 0.89 09/09/21 18:22 Blood - Venous Blood Culture - Final No growth after 5 days. 09/09/21 18:22 Blood - Venous Blood Culture - Final No growth after 5 days. 09/09/21 16:56 Urine clean catch - Clean Catch Midstream Urine Culture - Final Imaging Diagnostic Imaging Impressions Chest X-Ray 09/09/21 17:15 IMPRESSION: There is blunting of the right costophrenic angle which may be due to pleural thickening or trace pleural effusion with otherwise clear lungs. Sinuses CT 09/12/21 09:52 IMPRESSION: Clear paranasal sinuses. No evidence of sinusitis. DS: Summary Hospital Course Hospital Course: [place] [address] Psychiatry Admission Note (In)Signed Patient: Sheba Valencia#: [id number]: 9Acct:[id number]/Sex: 70 / FLoc:[id number]: Yovany Sheraer MD cc: ~ HPI Date of Service: 09/09/21 Chief Complaint: Crisis Sources of Information: patient interviewed, chart reviewed and crisis/core team assessment reviewed HPI Subjective Notes: [place] Warning and Conditional Voluntary Healthcare Proxy: No Guardianship: No Medical Problems Affecting Mental Status: No Narrative: Pt is a 70 year old female who carries a diagnosis of bipolar II disorder, ADHD, presenting to the ED on 09/10/21 with increased anxiety and depression, SI x 1 month, low appetite, and hyposomnia. Precipitating factors include that her lithium was decreased about a month ago in context of CKD and HTN, on lisinopril (may increase blood levels of lithium). Per U/A, pt found to have UTI, started on ceftin. [place] level 0.52. I evaluated the pt this evening and upon inquiry she reports poor sleep and increased anxiety, feels ?nick shaky.? Says she was recently started on seroquel, prior to that was using trazodone but reports it stopped working due to exacerbation in sx. She was also taking methylphenidate but says she felt agitated and ?I wasn?t feeling good, it was not holding me up,? felt jittery and stopped taking it. Pt reports she currently feels safe on the unit and denies SI or urges to self harm upon inquiry. Past Psychiatric History: Past meds: trazodone, methylphenidate -Remote hx of IPLOC 12 yrs ago. Medical Evaluation Reviewed: Yes PMF Narrative: -Pt reports hx of hypertension, chronic kidney disease Social History: -Lives with her . Volunteers at [employer] [place]. Substance History: -Cannabis: uses 3-4 nights a week, uses edibles or vapes from dispensary. Diagnostics Vital Signs (24Hr):Vital Signs - 24 hr 09/09/21 12:23 09/09/21 17:24 09/09/21 18:26 Temperature 98 F 98.6 F Pulse Rate 87 89 97 Respiratory Rate 16 19 Blood Pressure 186/106 H 198/110 H 198/110 H Pulse Oximetry 100 96 Body Mass Index 23.6 Labs Results: 09/09/21 14:45 document embedded image 09/09/21 14:45 document embedded image Labs:Laboratory Results - last 48 hr 09/09/21 09/09/21 09/09/21 14:45 14:45 14:45 WBC 17.1 H RBC 5.42 Hgb 16.1 H Hct 50.0 H MCV 92.3 MCH 29.7 MCHC 32.2 RDW 12.7 Plt Count 355 MPV 9.8 Immature Gran % (Auto) 0.5 H Neut % (Auto) 88.9 H Lymph % (Auto) 6.2 L [place] % (Auto) 4.0 Eos % (Auto) 0.2 Baso % (Auto) 0.2 Lymph # (Auto) 1.1 L [place] # (Auto) 0.7 Eos # (Auto) 0.0 Baso # (Auto) 0.0 Abs Immat Gran (auto) 0.09 H Absolute Neuts (auto) 15.2 H Absolute Nucleated RBC 0.000 Nucleated RBC % (auto) 0.0 Sodium 141 Potassium 4.8 Chloride 107 Carbon Dioxide 26 Anion Gap 13 BUN 12 Creatinine 0.83 Estim Creat Clear Calc 46.8 Estimated GFR > 60 Random Glucose 119 H Lactic Acid Calcium 10.5 H Magnesium 2.4 Total Bilirubin 0.3 Direct Bilirubin < 0.2 AST 19 ALT 21 Alkaline Phosphatase 119 H Total Protein 6.9 Albumin 4.3 Urine Color Urine Appearance Urine pH Ur Specific [place] Urine Protein Urine Glucose (UA) Urine Ketones Urine Blood Urine Nitrite Ur Leukocyte Esterase Urine RBC Urine WBC Ur Squamous Epith Cells Urine Bacteria Urine Opiates Screen Urine Fentanyl Screen Ur Barbiturates Screen Ur Phencyclidine Scrn Ur Amphetamines Screen U Benzodiazepines Scrn [place] 0.52 L Urine Cocaine Screen U Marijuana (THC) Screen COVID-19 (REE) COVID-[employer] 09/09/21 09/09/21 09/09/21 14:45 16:56 16:56 WBC RBC Hgb Hct MCV MCH MCHC RDW Plt Count MPV Immature Gran % (Auto) Neut % (Auto) Lymph % (Auto) [place] % (Auto) Eos % (Auto) Baso % (Auto) Lymph # (Auto) [place] # (Auto) Eos # (Auto) Baso # (Auto) Abs Immat Gran (auto) Absolute Neuts (auto) Absolute Nucleated RBC Nucleated RBC % (auto) Sodium Potassium Chloride Carbon Dioxide Anion Gap BUN Creatinine Estim Creat Clear Calc Estimated GFR Random Glucose Lactic Acid Calcium Magnesium Total Bilirubin Direct Bilirubin AST ALT Alkaline Phosphatase Total Protein Albumin Urine Color YELLOW Urine Appearance CLEAR Urine pH 6.0 Ur Specific [place] 1.015 Urine Protein NEG Urine Glucose (UA) NEG Urine Ketones NEG Urine Blood NEG Urine Nitrite NEG Ur Leukocyte Esterase TRACE H Urine RBC 1-4 Urine WBC 5-9 H Ur Squamous Epith Cells 1+ Urine Bacteria 1+ Urine Opiates Screen Not Detected Urine Fentanyl Screen Not Detected Ur Barbiturates Screen Not Detected Ur Phencyclidine Scrn Not Detected Ur Amphetamines Screen Not Detected U Benzodiazepines Scrn POSITIVE H [place] Urine Cocaine Screen Not Detected U Marijuana (THC) Screen POSITIVE H COVID-19 (REE) Negative COVID-[employer] See Note 09/09/21 18:23 WBC RBC Hgb Hct MCV MCH MCHC RDW Plt Count MPV Immature Gran % (Auto) Neut % (Auto) Lymph % (Auto) [place] % (Auto) Eos % (Auto) Baso % (Auto) Lymph # (Auto) [place] # (Auto) Eos # (Auto) Baso # (Auto) Abs Immat Gran (auto) Absolute Neuts (auto) Absolute Nucleated RBC Nucleated RBC % (auto) Sodium Potassium Chloride Carbon Dioxide Anion Gap BUN Creatinine Estim Creat Clear Calc Estimated GFR Random Glucose Lactic Acid 1.1 Calcium Magnesium Total Bilirubin Direct Bilirubin AST ALT Alkaline Phosphatase Total Protein Albumin Urine Color Urine Appearance Urine pH Ur Specific [place] Urine Protein Urine Glucose (UA) Urine Ketones Urine Blood Urine Nitrite Ur Leukocyte Esterase Urine RBC Urine WBC Ur Squamous Epith Cells Urine Bacteria Urine Opiates Screen Urine Fentanyl Screen Ur Barbiturates Screen Ur Phencyclidine Scrn Ur Amphetamines Screen U Benzodiazepines Scrn [place] Urine Cocaine Screen U Marijuana (THC) Screen COVID-19 (REE) COVID-19 Clin Com Imaging Radiology Impressions: ITS Impressions Chest X-Ray 09/09/21 17:15 IMPRESSION: There is blunting of the right costophrenic angle which may be due to pleural thickening or trace pleural effusion with otherwise clear lungs. Meds/Allergies Meds Home Medications Acetaminophen (Acetaminophen 325 Mg Tablet) 650 mg PO Q6H PRN PRN Reason: Headache/Pain Mild Scale (1-3) Al Hydroxide/Mg Hydroxide (Magnesium Hydrox/Alum Hydrox 30 Ml Oral.Susp) 30 ml PO Q6H PRN PRN Reason: Heartburn/Nausea Ascorbic Acid (Ascorbic Acid 500 Mg Tablet) 2,000 mg PO DAILY [facility] Last Admin: 09/10/21 08:30 Dose: 2,000 mg Documented by: Benzocaine (Throat Lozenge, Medicated Lozenge) 1 lozenge MUCOUS MEM Q2H PRN PRN Reason: Sore Throat Calcium Carbonate (Calcium Carbonate 500 Mg Tablet) 1,000 mg PO DAILY [facility] Last Admin: 09/10/21 08:31 Dose: 1,000 mg Documented by: Cefuroxime Axetil (Cefuroxime Axetil 250 Mg Tablet) 250 mg PO Q12H [facility] Stop: 09/16/21 17:59 Last Admin: 09/10/21 06:15 Dose: 250 mg Documented by: Diazepam (Diazepam 2 Mg Tablet) 2 mg PO Q6H PRN PRN Reason: anxiety Last Admin: 09/10/21 14:05 Dose: 2 mg Documented by: Diazepam (Diazepam 2 Mg Tablet) 2 mg PO BID PRN PRN Reason: Anxiety Last Admin: 09/10/21 08:29 Dose: 2 mg Documented by: Fluoxetine HCl (Fluoxetine Hcl 20 Mg Capsule) 40 mg PO DAILY [facility] Last Admin: 09/10/21 08:29 Dose: 40 mg Documented by: Fluticasone Propionate (Fluticasone Propionate Nasal 16 Gm [place]) 1 spray NOSTRIL-B BID [facility] Last Admin: 09/10/21 11:26 Dose: 1 spray Documented by: Hydroxyzine HCl (Hydroxyzine Hcl 25 Mg Tablet) 25 mg PO Q6H PRN PRN Reason: Anxiety Last Admin: 09/10/21 11:26 Dose: 25 mg Documented by: Lisinopril (Lisinopril 10 Mg Tablet) 10 mg PO DAILY [facility]; Protocol Last Admin: 09/10/21 08:31 Dose: 10 mg Documented by: [place] Carbonate ([place] Carbonate 300 Mg Tablet) 150 mg PO BEDTIME [facility] [place] Carbonate ([place] Carbonate 300 Mg Capsule) 300 mg PO BEDTIME [facility] Last Admin: 09/09/21 23:48 Dose: 300 mg Documented by: Magnesium Hydroxide (Milk Of Magnesia 30 Ml Oral.Susp) 30 ml PO DAILY PRN PRN Reason: Constipation Non-Formulary Medication (Estradiol [Yuvafem]) 1 tab VAGINAL WESA [facility] Quetiapine Fumarate (Quetiapine Fumarate 25 Mg Tablet) 25 mg PO BEDTIME [facility] Last Admin: 09/09/21 23:48 Dose: 25 mg Documented by: Trazodone HCl (Trazodone Hcl 50 Mg Tablet) 50 mg PO BEDTIME PRN PRN Reason: Insomnia Vitamin E (Vitamin E (Dl,Tocopheryl Acet) 180 Mg (400 Unit) Capsule) 180 mg PO DAILY [facility] Last Admin: 09/10/21 08:30 Dose: 180 mg Documented by: Allergies Allergies Allergy/AdvReac Type Severity Reaction Status Date / Time No Known Allergies Allergy Unverified 08/02/20 16:46 Mental Status Exam Mental Status Exam Narrative: A&O. Casual dress, good hygiene, normal body habitus. Good eye contact, attentive. No Tics or Tremors. No abnormal involuntary movements. Calm, somewhat guarded and difficulty engaging due to increased anxiety. Non- pressured speech, spontaneous with regular rate and rhythm, normal volume and prosody. No prolonged speech latency or dysarthria. Mood is ?anxious, tired,? affect is tired, nervous. Denies SI/SIB/HI upon inquiry. Denies A/VH or delusional thought content. Thoughts are coherent, organized. No known cognitive or memory impairment. Insight/ Judgment fair and adequate. Assessment & Plan Assessment & Plan (1) Bipolar II disorder: Status: Acute Code(s): F31.81 - Bipolar II disorder (2) ADHD (attention deficit hyperactivity disorder): Status: Acute Code(s): F90.9 - Attention-deficit hyperactivity disorder, unspecified type Assessment and Plan: Pt is a 70 year old female who carries a diagnosis of bipolar II disorder, ADHD, presenting to the ED on 09/10/21 with increased anxiety and depression, SI x 1 month, low appetite, and hyposomnia. Precipitating factors include that her lithium was decreased about a month ago. Pt is currently presenting with sx of hyposomnia, anxious affect, agitation, low appetite, perseverative thought content, and feelings of hopelessness. Plan: Pt does not want medication changes this evening, utilized her PRN diazepam and is hoping to fall asleep. She expressed interest in increasing lithium to target sx of agitated depression, will defer to primary psych team in the morning. Monitor response to medications. Monitor for safety in the milieu. Discharge on stabilization. Patient seen. Chart reviewed. Discussed with team. Obtain collateral contact info as needed HOSPITAL COURSE The [facility] in and anxious agitated state in either in agitated depression with sub syndrome will mixed depressive and manic features questionable history of bipolar 2 versus agitated depression. The patient was ruminating agitated passively suicidal hopeless helpless and despondent. She had significant insomnia. Patient did have significant hypertension lisinopril was increased to 10 mg initially her blood pressure could be be between 180 and 200 she is noted to have significant white coat syndrome. Lisinopril had been increased up to 10 mg a day but after consult with ENT doctor Devon He felt some of the patient's somatic concerns regarding her throat mucous an unsettling feeling in her throat could be contributed to inflammatory wasserman by lisinopril and recommended consideration of discontinuation. The patient was quite preoccupied regarding her throat and her blood pressure and physical concerns or an ongoing great fear for hers when she is ill with racing thoughts insomnia tearfulness hopelessness. The patient did have of visual exam by ENT and noted some mild inflammation and they recommended Mucinex and Prilosec . The patient had been on 300 mg of lithium as an outpatient initially because of a lisinopril lithium interaction lithium levels went up to 1.18 and patient stress tremor significantly increased in the patient does have an essential tremor ongoing. Lisinopril was discontinue the amlodipine was started and eventually increased to 7.5 mg in the morning. [place] was changed to 450 mg at bedtime after lisinopril was discontinued and Lamictal was started with individual consideration of tapering and discontinuing of lithium very gradually as an outpatient. Patient needed much reassurance and support she did use Valium 2 mg p.r.n. which was quite helpful and Seroquel was eventually changed to olanzapine 5 mg at bedtime which was quite helpful in reducing the level of racing thoughts agitation insomnia the patient was able to eventually feel more secure and stable. Wellbutrin was restarted added to fluoxetine 40 mg which the patient had been on as an outpatient but did breakthrough and Wellbutrin had been discontinued a number of months ago and this was also restarted. Patient had stabilized in the past on a combination of fluoxetine lithium and Wellbutrin. [place] level was 0.89Should be noted laboratory wasserman that the patient's white count which had been 17 on 09/09/2021 was 8.9 on the day of discharge hematocrit 44.2 her sodium was 139 potassium 4.7 estimated GFR range between greater than 60 and 58 this should be followed as an outpatient hemoglobin A1c was 5.4 calcium 10.2 LFTs within normal limits triglycerides 149 cholesterol 156 LDL 81 TSH should be followed patient was markedly more stable by the time of discharge on September 20 not ruminating still had some anxiety and depressive symptoms but much improved no self-harming thoughts. Lamictal a been increased to 25 b.i.d. patient was referred to the partial hospital program Status at Discharge Functional status at discharge: independent ambulation Time Spent with Patient Time attestation: Total time spent providing and/or coordinating discharge services: Discharge Plan Discharge Patient Disposition: Home, Self-Care Discharge Diagnosis: BIPOLAR 2 Referrals: [facility] Partial Hospitalization Program [Other] - 09/23/21 12:00 pm (PHP is virtual/telehealth at this time. Your intake for PHP is scheduled for 09/23/21 at 12PM. PHP will contact you prior to appointment. ) Yovany Shearer MD [Other] - 10/24/21 2:00 pm (You next appointment is scheduled in person for 10/24/21 at 2:00PM. If you need to schedule as virtual/telehealth please call office prior to appointment. ) Tami Francis [Other] - 1 Week Tami Francis. [Other] - 09/27/21 11:15 am Physician,Unknown J [Primary Care Provider] - 1 Week Discharge Medications: New guaifenesin [Mucinex] 600 mg Tablet Extended Release 12hr 600 mg PO BID 30 Days Qty: 60 RF: 0 lithium carbonate 300 mg Tablet 450 mg PO BEDTIME 30 Days Qty: 45 RF: 0 bupropion HCl 150 mg tablet sustained-release 12 hr 150 mg PO QAM 30 Days Qty: 30 RF: 2 olanzapine 5 mg Tablet 5 mg PO BEDTIME 30 Days Qty: 30 RF: 2 lamotrigine 25 mg tablet, chewable dispersible 25 mg PO BID 30 Days Qty: 60 RF: 1 amlodipine 2.5 mg tablet 7.5 mg PO DAILY 30 Days Qty: 90 RF: 0 Continued fluticasone propionate 50 mcg/actuation spray,suspension 1 spray intranasal BID RF: 0 estradiol [Yuvafem] 10 mcg tablet 1 tab vaginal WESA RF: 0 ascorbic acid (vitamin C) 2,000 mg Tablet Extended Release 2,000 mg PO DAILY RF: 0 calcium carbonate [Calcium 600] 600 mg calcium (1,500 mg) Tablet 1,200 mg PO DAILY RF: 0 vitamin E 400 unit Capsule 400 unit PO DAILY RF: 0 [place] Lozenge 1 leonela MUCOUS MEMBRANE Q2H RF: 0 fluoxetine 40 mg capsule 40 mg PO DAILY 30 Days Qty: 30 RF: 2 diazepam 2 mg tablet 1 tab PO BID PRN (Reason: Anxiety) 30 Days Qty: 60 RF: 1 Discontinued quetiapine 25 mg tablet 25 mg PO BEDTIME RF: 0 lithium carbonate 150 mg capsule 150 mg PO BEDTIME RF: 0 lithium carbonate 300 mg capsule 300 mg PO BEDTIME RF: 0 lisinopril 10 mg tablet 1 tab PO DAILY RF: 0 Discharge Orders: Discharge Order (Routine); Ordered 09/20/21 Ordered By: Yovany Shearer Diet: advance to usual diet Activity on Discharge: As tolerated Stand Alone Forms: Patient Portal Discharge page, Community Support Care Plan Goals: STABLE MOOD DECREASED ANXIETY NO SI LESS PREOCCUPATION WITH PHYSICAL HEALTH STABLE BP Health Concerns: DEPRESSION WITH ANXIETY HYPERTENSION Plan of Treatment: MEDICATION MEDICAL FOLLOW UP PCP PSYCH F/U PHP Assessment: MUCH IMPROVED Discharge Date/Time: 09/20/21 11:15
[2021-09-20 09:31] LABS: MANUAL DIFF FLAG NO
[2021-09-20 09:34] LABS: Basophils Absolute Auto 0.1 X10*3/uL (0.0-0.2); Basophils Percent Auto 0.6 % (0-2); Eosinophils Absolute Auto 0.3 X10*3/uL (0.0-0.4); Eosinophils Percent Auto 2.9 % (0-4); Hematocrit 44.2 % (37.0-47.0); Hemoglobin 14.2 g/dl (12.0-16.0); Imm Gran Abs Auto 0.04 X10*3/uL (0.00-0.03); Imm Gran Pct Auto 0.4 % (0.0-0.4); Lymphocytes Absolute Auto 1.3 X10*3/uL (1.2-4.9); Lymphocytes Percent Auto 14.4 % (20-40); Mean Corpuscular HGB Conc 32.1 g/dl (31.0-35.0); Mean Corpuscular Hemoglobin 29.8 pg (27.0-33.0); Mean Corpuscular Volume 92.9 fL (80.0-98.0); Mean Platelet Volume 10.3 fL (9.4-12.3); Monocytes Absolute Auto 0.7 X10*3/uL (0.1-1.2); Monocytes Percent Auto 7.3 % (2-11); Neutrophils Absolute Auto 6.6 x10*3/uL (2.0-8.3); Neutrophils Percent Auto 74.4 % (45-73); Platelet Count 333 X10*3/uL (160-400); Red Blood Count 4.76 X10*6/uL (4.20-5.50); White Blood Count 8.9 X10*3/uL (4.8-10.8)
[2021-09-20] MEDS: Tetrahydrozoline HCl 0.05% Oph 15 ML DRPBTL 2 DROP EYE-BOTH (10:07)
--- NOTE | 2021-09-20 11:35 | PC.NURSE ---
Patient well aware and was ready for discharge. Paperwork reviewed with patient .Appointment follow up and next dose Meds explained to patient. Patient verbalized understanding. Patient was pleasant , Denied SI/HI. Patient accompanied with belongings in front of the building per hospital policy.
[2021-09-20 16:56] LABS: TSH reflex Free T4 0.13 uIU/mL (0.32-4.0)
[2021-09-20 17:54] LABS: Free T4 (Free Thyroxine) 0.86 ng/dL (0.71-1.85)
== END 2021-09-20 11:15 | disposition home or self-care (01) | DRG 885 ==
LOC: HO.ED 21:23 → HO.PGERI 21:33
PROVIDERS: Physician Assistant; Admitting Provider Registered Nurse; Emergency Provider Emergency Medicine; Visit Provider Psychiatry & Neurology Psychiatry
DX: F31.81 Bipolar II disorder (principal); R45.851 Suicidal ideations; J31.2 Chronic pharyngitis; F90.9 Attention-deficit hyperactivity disorder, unspecified type; I10 Essential (primary) hypertension; D72.829 Elevated white blood cell count, unspecified; Z20.822 Contact with and (suspected) exposure to COVID-19; Z87.891 Personal history of nicotine dependence; Z79.51 Long term (current) use of inhaled steroids; Z79.899 Other long term (current) drug therapy
CPT/HCPCS: 36415; 70486; 71045; 80048; 80053; 80061; 80076; 80178; 80307; 81001; 83036; 83605; 83735; 84439; 84443; 85007; 85025; 85027; 87040; 87086; 87635; 93005; 99285

== ENCOUNTER 2021-10-07 09:30 | Outpatient (RCR) | payer MEDICARE, SELFPAY ==
--- NOTE | 2021-09-24 14:29 | P.HPPSP_ITS ---
HPI Date of Service: 09/24/21 Chief Complaint: Bipolar II, Depression, Anxiety Sources of Information: patient interviewed, chart reviewed and crisis/core team assessment reviewed HPI Narrative: Pt is a 70 year old female who carries a diagnosis of bipolar II disorder, ADHD. She is admitted to [facility] as a step-down from [place] [facility], discharged on 09/20/21. She was admitted to the unit due to increased anxiety and depression, SI x 1 month, low appetite, and hyposomnia. Precipitating factors included recent med adjustments and she was found to have UTI. Over the course of hospitalization, pt?s HTN was addressed with discontinuation of lisinopril, put on amlodipine 7.5 mg. She also had visual exam by ENT and noted some mild inflammation and they recommended Mucinex and Prilosec. [place] was changed to 450 mg at bedtime after lisinopril was discontinued and Lamictal was started at 25. Mg BID x 30 days. She continued on Valium 2 mg p.r.n. And olanzapine 5 mg QHS for anxiety, racing thoughts, agitation, and insomnia. Wellbutrin was restarted to adjunct fluoxetine 40 mg. On discharge, pt?s [place] level was 0.89. Of note, she had low TSH of 0.13, labs were faxed to OP PCP.?? I evaluated the pt this morning and upon interview she reports ?I actually feel like i have gotten my life back.? Her somatic sx have improved, no longer has a cough or mucus. Notes that she has a fine bilateral hand tremor, discussed that this is a SE of lithium but pt states her mother had a benign tremor, may be genetic. Says she feels she is ?in a good place,? doesnt want med changes. Says ?my sleep has been excellent,? getting 8-8.5 hours. Hasnt had to take diazepam s [place] [facility], feels her anxiety is at baseline. Appetite is better, no nausea.? Past Psychiatric History: Past meds: trazodone, methylphenidate -Remote hx of IPLOC 12 yrs ago. Medical Evaluation Reviewed: Yes [facility] Medical History (Updated 09/10/21 @ 21:14 by Yovany Shearer MD) Hypertension Narrative: Pt reports hx of hypertension, chronic kidney disease. Also has remote hx of multinodular goiter (benign). Social History: -Lives with her . 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 Substance History: -Cannabis: uses 3-4 nights a week, uses edibles or vapes from dispensary. Meds/Allergies Allergies Allergies Allergy/AdvReac Type Severity Reaction Status Date / Time No Known Allergies Allergy Verified 09/24/21 12:18 Mental Status Exam Mental Status Exam Narrative: Telehealth: A&O. Casual dress,well kempt, normal body habitus. Good eye contact, attentive. No Tics or Tremors. No abnormal involuntary movements. Calm, cooperative, engaged. Non-pressured speech, spontaneous with regular rate and rhythm, normal volume and prosody. No prolonged speech latency or dysarthria. Mood is ?better, affect is appropriate, congruent. Denies SI/SIB/HI upon inquiry. Denies A/VH or delusional thought content. Thoughts are coherent, organized. No known cognitive or memory impairment. Insight/ Judgment fair and adequate. Assessment & Plan Assessment & Plan (1) Bipolar II disorder: Status: Acute Code(s): F31.81 - Bipolar II disorder (2) ADHD (attention deficit hyperactivity disorder): Status: Acute Code(s): F90.9 - Attention-deficit hyperactivity disorder, unspecified type Assessment and Plan: Pt is a 70 year old female who carries a diagnosis of bipolar II disorder, ADHD, recently stepped down to [facility] from [facility] [place] due to agitated depression, anxiety, and hyposomnia. Plan: Pt does not want medication changes. Reviewed labs from [facility], TSH was 0.13, has hx of multinodular goiter. I called the PCP, discharge summary was faxed with labs and they agreed to f/u with pt for thyroid workup. Will continue on medications from discharge. Will f/u per program protocol. Patient educated on: medication risk/benefits and therapeutic strategies Certification I certify that partial hospital treatment is medically necessary due to the symptoms and problems resulting from the patient's mental illness and the failure to treat the patient at the partial hospital level of care would likely result in the patient requiring inpatient psychiatric care which could not be prevented at a less intensive level of care.
--- NOTE | 2021-09-26 14:16 | PC.NURSE ---
Case opened in tx team
--- NOTE | 2021-10-01 14:18 | P.PNPSP_ITS ---
Subjective Subjective Date of Service: 10/01/21 Reason For Visit: Bipolar II, Depression, Anxiety Interim History: Patient seen and discussed with team. Patient evaluated this morning and upon interview she reports Im actually doing quite well. Says I started feeling much better after I got out the hospital and its just been staying. Says she is so happy about the med change from trazodone to olanzapine, sleep is improved and overall anxiety sx are better. Says having better sleep has made a difference. Has appointment at the beginning of next week to follow up with PCP regarding thyroid (low TSH during prev admission). Says she notices if I get nervous about something she has a worse tremor, however no other complaints today. Does not need refills. Medication Compliance: Yes Side effects from medications: No Attending Groups: Yes Review of Systems Acute medical concerns: No Medical Review of Systems: unchanged Mental Status Exam Mental Status Exam Narrative: Telehealth: A&O. Casual dress,well kempt, normal body habitus. Good eye contact, attentive. No Tics or Tremors. No abnormal involuntary movements. Calm, cooperative, engaged. Non-pressured speech, spontaneous with regular rate and rhythm, normal volume and prosody. No prolonged speech latency or dysarthria. Mood is ?good, affect is appropriate, congruent. Denies SI/SIB/HI upon inquiry. Denies A/VH or delusional thought content. Thoughts are coherent, organized. No known cognitive or memory impairment. Insight/ Judgment fair and adequate. Assessment & Plan Assessment & Plan (1) Bipolar II disorder: Status: Acute Code(s): F31.81 - Bipolar II disorder Assessment and Plan: Pt is a 70 year old female who carries a diagnosis of bipolar II disorder, ADHD, recently stepped down to [facility] from [facility] due to agitated depression, anxiety, and hyposomnia. Pt is currently stable, denies SI/SIB upon inquiry today. Plan: Pt does not want medication changes. Reviewed labs from [facility], TSH was 0.13, has hx of multinodular goiter. Has PCP coming up for f/u. Will continue on medications from discharge. Will f/u per program protocol. Certification I certify that partial hospital treatment is medically necessary due to the symptoms and problems resulting from the patient's mental illness and the failure to treat the patient at the partial hospital level of care would likely result in the patient requiring inpatient psychiatric care which could not be prevented at a less intensive level of care. I spent minutes with the patient and/or on the patient floor today, greater than?50% of which was spent counseling/coordinating care. Discharge Plan Discharge Attending provider: Sean Hoffman Primary Care Provider: Tami Francis Medications: No Action fluticasone propionate 50 mcg/actuation spray,suspension 1 spray intranasal BID RF: 0 estradiol [Yuvafem] 10 mcg tablet 1 tab vaginal WESA RF: 0 ascorbic acid (vitamin C) 2,000 mg Tablet Extended Release 2,000 mg PO BEDTIME RF: 0 calcium carbonate [Calcium 600] 600 mg calcium (1,500 mg) Tablet 1,200 mg PO BEDTIME RF: 0 vitamin E 400 unit Capsule 400 unit PO DAILY RF: 0 Ricola Lozenge 1 leonela MUCOUS MEMBRANE Q2H RF: 0 guaifenesin [Mucinex] 600 mg Tablet Extended Release 12hr 600 mg PO BID 30 Days Qty: 60 RF: 0 lithium carbonate 300 mg Tablet 450 mg PO BEDTIME 30 Days Qty: 45 RF: 0 bupropion HCl 150 mg tablet sustained-release 12 hr 150 mg PO QAM 30 Days Qty: 30 RF: 2 olanzapine 5 mg Tablet 5 mg PO BEDTIME 30 Days Qty: 30 RF: 2 lamotrigine 25 mg tablet, chewable dispersible 25 mg PO BID 30 Days Qty: 60 RF: 1 amlodipine 2.5 mg tablet 7.5 mg PO DAILY 30 Days Qty: 90 RF: 0 fluoxetine 40 mg capsule 40 mg PO DAILY 30 Days Qty: 30 RF: 2 diazepam 2 mg tablet 1 tab PO BID PRN (Reason: Anxiety) 30 Days Qty: 60 RF: 1 Referrals: Tami Francis MD [Primary Care Provider] - 1 Week Stand Alone Forms: Patient Portal Discharge page
--- NOTE | 2021-10-02 12:36 | PC.NURSE ---
I called [facility] and [facility] to make a referral for a therapist. None would accept the clients medicare/ [employer] insurance.
--- NOTE | 2021-10-07 15:47 | HO.PHPPROGNO ---
Subjective Subjective Date of Service: 10/07/21 Reason For Visit: Bipolar II, Depression, Anxiety Guardianship: No Medical Problems Affecting Mental Status: No Interim History: Miriam reports that she feels she is doing ?quite well today ?. She reports that she has a much improved mood since beginning PHP. Today is her last day, and she feels ready to complete program. 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 She feels that these activities, helping her to stay out of the house and remain engaged, will help with her depressive symptoms, along with her medication change she had had recently. Medication Compliance: Yes Side effects from medications: No Attending Groups: Yes Review of Systems Acute medical concerns: No Medical Review of Systems: unchanged Mental Status Exam Mental Status Exam Narrative: Well-developed, well-nourished female, in NAD. Alert and oriented x4. Eye contact within normal limits. Grooming and appearance appropriate. No involuntary movements noted, motor activity calm, posture within normal limits. Manner and behavior calm, cooperative. Speech fluent, unimpaired, normal rate and volume. Mood and affect stable, full range. Thought process and associations linear, goal directed. Thought content normal, future oriented. Cognition and memory grossly intact. Attention appropriate to situation. No evidence of any type of delusional thoughts or hallucinations noted. No evidence of any type of SI, HI observed, and client denies. She reports feeling safe. Reliability good. Judgment and insight appear intact at this time. Ambulation not observed. Assessment & Plan Assessment & Plan (1) Bipolar II disorder: Status: Acute Code(s): F31.81 - Bipolar II disorder Assessment and Plan: Client presents with stable mood and affect. Denies any thought of harm to self or others, no safety concern at this time. that she feels safe to complete program at this time, and to resume her daily functions. 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 She reports that she feels stable with her current medication regimen. Denies any concerns at this time, appears stable for discharge. (2) Depression: Qualifiers: Depression Type: unspecified Qualified Code(s): F32.A - Depression, unspecified Status: Acute Code(s): F32.A - Depression, unspecified Assessment and Plan: 1. Client to continue medications as prescribed by outpatient psychiatrist. 2. Plan is to follow up with her outpatient provider going forward. 3. Appears stable for discharge from [facility] at this time. Patient educated on: diagnosis, medication risk/benefits and therapeutic strategies Informed Consent: understands Reason for contiued partial hosp. stay Substantial Risk for: stable for discharge Certification I certify that partial hospital treatment is medically necessary due to the symptoms and problems resulting from the patient's mental illness and the failure to treat the patient at the partial hospital level of care would likely result in the patient requiring inpatient psychiatric care which could not be prevented at a less intensive level of care. I spent minutes with the patient and/or on the patient floor today, greater than?50% of which was spent counseling/coordinating care. Discharge Plan Discharge Attending provider: Sean Hoffman Primary Care Provider: Tami Francis Medications: No Action fluticasone propionate 50 mcg/actuation spray,suspension 1 spray intranasal BID RF: 0 estradiol [Yuvafem] 10 mcg tablet 1 tab vaginal WESA RF: 0 ascorbic acid (vitamin C) 2,000 mg Tablet Extended Release 2,000 mg PO BEDTIME RF: 0 calcium carbonate [Calcium 600] 600 mg calcium (1,500 mg) Tablet 1,200 mg PO BEDTIME RF: 0 vitamin E 400 unit Capsule 400 unit PO DAILY RF: 0 Ricola Lozenge 1 leonela MUCOUS MEMBRANE Q2H RF: 0 guaifenesin [Mucinex] 600 mg Tablet Extended Release 12hr 600 mg PO BID 30 Days Qty: 60 RF: 0 lithium carbonate 300 mg Tablet 450 mg PO BEDTIME 30 Days Qty: 45 RF: 0 bupropion HCl 150 mg tablet sustained-release 12 hr 150 mg PO QAM 30 Days Qty: 30 RF: 2 olanzapine 5 mg Tablet 5 mg PO BEDTIME 30 Days Qty: 30 RF: 2 lamotrigine 25 mg tablet, chewable dispersible 25 mg PO BID 30 Days Qty: 60 RF: 1 amlodipine 2.5 mg tablet 7.5 mg PO DAILY 30 Days Qty: 90 RF: 0 fluoxetine 40 mg capsule 40 mg PO DAILY 30 Days Qty: 30 RF: 2 diazepam 2 mg tablet 1 tab PO BID PRN (Reason: Anxiety) 30 Days Qty: 60 RF: 1 Referrals: Tami Francis MD [Primary Care Provider] - 1 Week Stand Alone Forms: Patient Portal Discharge page Telehealth Telehealth Location of provider rendering services: practice address Location of patient: address on file Patient Identification confirmed using: Name, : Yes Telehealth method: video Patient verbally consented to treatment: Yes Patient verbally consented to billing insurance company: Yes Patient informed of any privacy concerns related to visit: Yes Time spent with patient (mins): 15
--- NOTE | 2021-10-08 11:31 | PC.NURSE ---
Discharge Note: Patient discharged from [facility] on 10/07/2021. Patient completed 9 days of treatment. Patient states understanding of discharge plan including discharge medications. This is a routine discharge . Patient denies SI. Patient states she is ready for discharge.
== END 2021-10-08 07:13 | disposition home or self-care (01) ==
LOC: HO.PHPA 09:30
PROVIDERS: PCP Internal Medicine; Visit Provider Psychiatry & Neurology Psychiatry
DX: F31.81 Bipolar II disorder (principal); F90.9 Attention-deficit hyperactivity disorder, unspecified type
CPT/HCPCS: 90791; 90853

== ENCOUNTER 2021-12-10 09:42 | Outpatient (REF) | payer MEDICARE, SELFPAY ==
[2021-12-10 10:38] LABS: Estimated Average Glucose 97 mg/dL
[2021-12-10 10:44] LABS: Lithium 0.75 mmol/L (0.60-1.20)
[2021-12-10 10:55] LABS: Alanine Aminotransferase 29 U/L (0-31); Alkaline Phosphatase 111 U/L (39-117); Anion Gap 10 (12-20); Aspartate Amino Transferase 28 U/L (5-31); Bilirubin Total 0.3 mg/dL (0.0-1.0); Blood Urea Nitrogen 13 mg/dL (9-16); Calcium 10.3 mg/dL (8.4-10.2); Carbon Dioxide 28 mmol/L (22-29); Chloride 109 mmol/L (96-108); Estimated Glomerular Filt Rate > 60; Glucose Random 97 mg/dL (60-115); Potassium 5.2 mmol/L (3.3-5.1); Sodium 142 mmol/L (135-145); Total Protein 6.9 g/dL (6.5-8.0)
[2021-12-10 11:12] LABS: Free T4 (Free Thyroxine) 0.81 ng/dL (0.71-1.85)
[2021-12-14 15:32] LABS: Lamotrigine Lamictal 1.2 mcg/mL (4.0-18.0)
[2021-12-16 15:36] LABS: Thyroid Stimulating Immunoglob <89 % baseline (<140)
== END 2021-12-10 09:43 | disposition home or self-care (01) ==
LOC: HO.LAB 09:42
PROVIDERS: PCP Internal Medicine; Visit Provider Psychiatry & Neurology Psychiatry
DX: F33.9 Major depressive disorder, recurrent, unspecified (principal); Z79.899 Other long term (current) drug therapy
CPT/HCPCS: 36415; 80053; 80175; 80178; 83036; 84439; 84445

== ENCOUNTER 2022-04-17 11:32 | Emergency (ER) | payer MEDICARE, SELFPAY ==
[2022-04-17 11:41] VITALS: BP 153/81; PULSE 86; RESP 16; TEMP 36.9; O2SAT 94; BMI 21.9
--- NOTE | 2022-04-17 11:45 | ECG_ITS ---
Test Reason : cp Blood Pressure : / mmHG Vent. Rate : 080 BPM Atrial Rate : 080 BPM P-R Int : 146 ms QRS Dur : 080 ms QT Int : 362 ms P-R-T Axes : 038 046 025 degrees QTc Int : 417 ms Normal sinus rhythm Normal ECG When compared with ECG of 09-SEP-2021 16:44, No significant change was found Referred By: Generic ED Physician Electronically Signed By:DAVION VUONG MD
[2022-04-17 12:09] LABS: Hematocrit 47.4 % (37.0-47.0); Mean Corpuscular HGB Conc 31.6 g/dl (31.0-35.0); Mean Corpuscular Hemoglobin 29.7 pg (27.0-33.0); Mean Corpuscular Volume 93.9 fL (80.0-98.0); Mean Platelet Volume 9.5 fL (9.4-12.3); Platelet Count 361 X10*3/uL (160-400); Red Blood Count 5.05 X10*6/uL (4.20-5.50); Red Cell Distribution Width 13.4 % (11.0-16.0); White Blood Count 11.9 X10*3/uL (4.8-10.8)
[2022-04-17 12:25] LABS: COVID-19 Test Negative (Negative); IDNOW Serial# 55D5AD1C
[2022-04-17 12:32] LABS: Anion Gap 12 (12-20); Blood Urea Nitrogen 12 mg/dL (9-16); Calcium 10.3 mg/dL (8.4-10.2); Carbon Dioxide 24 mmol/L (22-29); Chloride 109 mmol/L (96-108); Creatinine Clr Calc Pharmacy 37.9; Estimated Glomerular Filt Rate 54; Glucose Random 125 mg/dL (60-115); Potassium 4.4 mmol/L (3.3-5.1); Sodium 141 mmol/L (135-145)
--- NOTE | 2022-04-17 14:22 | ED.PSYCH ---
HPI - Psych General Chief Complaint: Psychiatric Symptoms Stated Complaint: aggitated depression Time Seen by Provider: 04/17/22 14:06 Source: patient Mode of arrival: ambulatory Limitations: no limitations History of Present Illness HPI Narrative: Patient presents emergency department for evaluation of increased agitation and depression. Patient reports that she was recently admitted inpatient, uncertain of exact dates. Today she was on the phone with her psychiatrist Dr. Shearer, and was discussing her symptoms. She has vague thoughts of wanting to ?end it all?. Denies any homicidal ideations. Has no specific plan. Patient was under the impression when speaking with Dr. Shearer that there was an inpatient bed available for her therefore she came to the emergency department. She states that she has been compliant with her medications. Denies any fevers, chills, headache, dizziness, lightheadedness, upper respiratory symptoms, chest pain, shortness of breath, difficulty breathing, vomiting, nausea, diarrhea, abdominal pain, dysuria, urinary frequency, generalized weakness, fatigue, falls. MD complaint: suicidal ideation and feels depressed Onset (ago): week(s) Related Data Home Medications Medication Instructions Recorded Confirmed ascorbic acid (vitamin C) 2,000 mg 2,000 mg PO BEDTIME 09/09/21 04/17/22 tablet,extended release calcium carbonate 600 mg calcium 1,200 mg PO BEDTIME 09/09/21 04/17/22 (1,500 mg) tablet (Calcium) estradiol 10 mcg vaginal tablet 1 tab VAGINAL MOTH@1000 09/09/21 04/17/22 (Yuvafem) menthol-herbal drugs lozenges 1 leonela MUCOUS MEMBRANE Q2H 09/09/21 04/17/22 (Ricola) vitamin E 400 unit capsule 400 unit PO DAILY 09/09/21 04/17/22 bupropion HCl 100 mg tablet,12 hr 100 mg PO DAILY 04/17/22 04/17/22 sustained-release dietary supplement 1 cap PO DAILY 04/17/22 04/17/22 lamotrigine 100 mg tablet 100 mg PO BEDTIME 04/17/22 04/17/22 (Lamictal) lithium carbonate 300 mg tablet 300 mg PO BEDTIME 04/17/22 04/17/22 methylphenidate HCl 5 mg tablet 5 mg PO BID PRN 04/17/22 04/17/22 Previous Rx's Medication Instructions Recorded amlodipine 2.5 mg tablet 7.5 mg PO DAILY 30 Days #90 tab 09/19/21 diazepam 2 mg tablet 1 tab PO BID PRN 30 Days #60 tab 09/19/21 fluoxetine 40 mg capsule 40 mg PO DAILY 30 Days #30 cap 09/19/21 guaifenesin 600 mg tablet, 600 mg PO BID 30 Days #60 tab 09/19/21 extended release 12 hr (Mucinex) olanzapine 5 mg tablet 5 mg PO BEDTIME 30 Days #30 tab 09/19/21 cefuroxime axetil 250 mg tablet 250 mg PO Q12H 7 Days #14 tab 04/17/22 Allergies Allergy/AdvReac Type Severity Reaction Status Date / Time No Known Allergies Allergy Verified 09/24/21 12:18 Review of Systems Review of Systems: Constitutional : No Fever, No Chills ENT/Mouth : No Ear Pain, No Nasal Congestion, No sore throat Eyes: No Eye Pain, No Swelling, No Redness Cardiovascular : No Chest Pain, No SOB Respiratory : No Cough, No Sputum, No Dyspnea Gastrointestinal : No Nausea, No Vomiting, No Diarrhea, No Hematochezia, No Melena Genitourinary : No Dysuria, No Urinary Frequency, No Hematuria Musculoskeletal : No Myalgias Skin : No Skin Lesions, No rash Neuro : No Weakness, No Numbness, No Paresthesias, No Dizziness, No Headache Psych : positive agitation, positive Depression, positive SI no HI Heme/Lymph: No Lymphadenopathy Endocrine : No Polyuria, No Polydipsia Yes all other systems are reviewed and are negative [facility] Past Medical History Attestation statement: The following information was validated with the patient. Source: old records reviewed Medical History Hypertension Social History Social History Household Members: Spouse Household Members Other:: And two cats. Housing: House Do you presently have visiting nurse or other home services: No Alcohol intake: never Patient Tobacco Use Status: Former Tobacco user Quit Date: 2013 Tobacco use type: Cigarette e-Cigarette/Vaping Use: Never Used Second Hand Smoke Exposure: No Use of substances other than those prescribed or required for medical reasons: Yes Substance Use Type: Marijuana Advance Directives: Yes Advance Directives Information Provided: No Advance Directives on File: No service: No Sexual orientation: Straight/Heterosexual Physical Exam Vital Signs: Vital Signs: Last Vital Signs Temp 98.4 F 04/17/22 11:41 Pulse 86 04/17/22 11:41 Resp 16 04/17/22 11:41 BP 153/81 H 04/17/22 11:41 Pulse Ox 94 04/17/22 11:41 BMI result Body Mass Index 21.9 Appearance: Alert.?Oriented to person, place and time. No acute distress.?Normal affect. Eyes: Pupils equal, round and reactive to light.? ENT: Pharynx normal.?? Neck: Normal inspection.? Neck supple.?? CVS: Heart sounds normal. Normal heart rate and rhythm.? Pulses normal.?? Respiratory: No respiratory distress.? Lung sounds clear to auscultation bilaterally?? Abdomen: Soft and non-tender. ? Skin: Skin warm and dry.? Normal skin color.? Extremities: No lower extremity edema.? Neuro: Moves all extremities spontaneously. Sensation intact bilaterally. CN II-XII intact. No focal neuro deficits. Ambulates with normal steady gait. Course Course Course Narrative: Patient is a 71-year-old female with a past medical history of hypertension, ADHD, bipolar disorder, depression. Presenting to the emergency department with increasing agitation depression and vague suicidal ideations. No specific plan. Basic labs ordered including CBC, BMP, COVID-19 testing, EKG, drug of abuse screen. Will refer patient for evaluation by care team. Reevaluation(s) Reevaluation #1: Spoke with patient as urinalysis is positive for esterase and nitrates. Denies any urinary frequency, dysuria, or urinary urgency. However given her age and presence of nitrates will treat for urinary tract infection at this time, discussed with patient, used shared decision making and she is agreeable, will treat with cefuroxime 250 mg PO b.i.d. for 7 days. Time: 17:06 Reevaluation #2: Dr. Shearer at bedside and spoke with patient. Patient is requesting to leave at this time. Dr. Shearer agrees with this plan of care, spoke with her and feels that she is safe for discharge. Patient is denying suicidal ideations. She states that earlier she just wants her depressive thoughts to stop but does not want to end her life. Patient's is at bedside who also feels safe with plan of care for her to be discharged home. She is actively engaged with Psychiatry, and is med compliant. Time: 17:15 [facility] - Psych Lab Data Result diagrams: 04/17/22 12:02 04/17/22 12:02 Labs: Lab Results 04/17/22 04/17/22 04/17/22 Range/Units 12:02 12:02 12:02 WBC 11.9 H (4.8-10.8) X10*3/uL RBC 5.05 (4.20-5.50) X10*6/uL Hgb 15.0 (12.0-16.0) g/dl Hct 47.4 H (37.0-47.0) % MCV 93.9 (80.0-98.0) fL MCH 29.7 (27.0-33.0) pg MCHC 31.6 (31.0-35.0) g/dl RDW 13.4 (11.0-16.0) % Plt Count 361 (160-400) X10*3/uL MPV 9.5 (9.4-12.3) fL Absolute Nucleated RBC 0.000 (0.0-0.012) X10*3/uL Nucleated RBC % (auto) 0.0 (0.0-0.2) /100WBC Sodium 141 (135-145) mmol/L Potassium 4.4 (3.3-5.1) mmol/L Chloride 109 H (96-108) mmol/L Carbon Dioxide 24 (22-29) mmol/L Anion Gap 12 (12-20) BUN 12 (9-16) mg/dL Creatinine 1.01 (0.5-1.4) mg/dL Estim Creat Clear Calc 37.9 Estimated GFR 54 Random Glucose 125 H (60-115) mg/dL Calcium 10.3 H (8.4-10.2) mg/dL Urine Color Urine Appearance Urine pH (5.0-8.0) Ur Specific [place] (1.005-1.025) Urine Protein (NEG-TRACE) MG/DL Urine Glucose (UA) (NEG) MG/DL Urine Ketones (NEG) MG/DL Urine Blood (NEG) Urine Nitrite (NEG) Ur Leukocyte Esterase (NEG) Urine RBC (0) /HPF Urine WBC (0-4) /HPF Ur Squamous Epith Cells /LPF Urine Bacteria /LPF Urine Opiates Screen (Not Detect) Urine Fentanyl Screen (Not Detect) Ur Barbiturates Screen (Not Detect) Ur Phencyclidine Scrn (Not Detect) Ur Amphetamines Screen (Not Detect) U Benzodiazepines Scrn (Not Detect) Urine Cocaine Screen (Not Detect) U Marijuana (THC) Screen (Not Detect) COVID-19 (REE) Negative (Negative) COVID-19 Clin Com See Note 04/17/22 04/17/22 Range/Units 15:10 15:11 WBC (4.8-10.8) X10*3/uL RBC (4.20-5.50) X10*6/uL Hgb (12.0-16.0) g/dl Hct (37.0-47.0) % MCV (80.0-98.0) fL MCH (27.0-33.0) pg MCHC (31.0-35.0) g/dl RDW (11.0-16.0) % Plt Count (160-400) X10*3/uL MPV (9.4-12.3) fL Absolute Nucleated RBC (0.0-0.012) X10*3/uL Nucleated RBC % (auto) (0.0-0.2) /100WBC Sodium (135-145) mmol/L Potassium (3.3-5.1) mmol/L Chloride (96-108) mmol/L Carbon Dioxide (22-29) mmol/L Anion Gap (12-20) BUN (9-16) mg/dL Creatinine (0.5-1.4) mg/dL Estim Creat Clear Calc Estimated GFR Random Glucose (60-115) mg/dL Calcium (8.4-10.2) mg/dL Urine Color YELLOW Urine Appearance HAZY Urine pH 6.0 (5.0-8.0) Ur Specific [place] 1.025 (1.005-1.025) Urine Protein NEG (NEG-TRACE) MG/DL Urine Glucose (UA) NEG (NEG) MG/DL Urine Ketones 5 (NEG) MG/DL Urine Blood NEG (NEG) Urine Nitrite POS H (NEG) Ur Leukocyte Esterase TRACE H (NEG) Urine RBC 0 (0) /HPF Urine WBC 1-4 (0-4) /HPF Ur Squamous Epith Cells 1+ /LPF Urine Bacteria 2+ /LPF Urine Opiates Screen Not Detected (Not Detect) Urine Fentanyl Screen Not Detected (Not Detect) Ur Barbiturates Screen Not Detected (Not Detect) Ur Phencyclidine Scrn Not Detected (Not Detect) Ur Amphetamines Screen Not Detected (Not Detect) U Benzodiazepines Scrn POSITIVE H (Not Detect) Urine Cocaine Screen Not Detected (Not Detect) U Marijuana (THC) Screen POSITIVE H (Not Detect) COVID-19 (REE) (Negative) COVID-19 Clin Com Discharge Plan Discharge Clinical Impression: Depression, Urinary tract infection Patient Disposition: Home, Self-Care Instructions: Depression (ED), Urinary Tract Infection in Older Adults (ED) Additional Instructions: Please continue taking all your medications as prescribed. Follow-up with psychiatry. You may return to the emergency department with any new or worsening symptoms or concerns. As we discussed your urine sample is concerning for an infection, you have been given a new prescription for an antibiotic to take twice a day for 7 days, please complete this entire course. Should you develop any fevers, chills, nausea, vomiting, abdominal pain, back pain, blood in your urine, significant pain with urination, or any additional concerning symptoms please return back to the emergency department for evaluation. Additionally should follow-up with your primary care provider within 1 week. Prescriptions: New cefuroxime axetil 250 mg tablet 250 mg PO Q12H 7 Days Qty: 14 0RF No Action Mature Women's Capsule 1 cap PO DAILY 0RF lithium carbonate 300 mg tablet 300 mg PO BEDTIME 0RF lamotrigine [Lamictal] 100 mg Tablet 100 mg PO BEDTIME 0RF methylphenidate HCl 5 mg Tablet 5 mg PO BID PRN (Reason: focus) 0RF bupropion HCl 100 mg Tablet Sustained-Release 12 Hr 100 mg PO DAILY 0RF estradiol [Yuvafem] 10 mcg tablet 1 tab vaginal MOTH@1000 0RF ascorbic acid (vitamin C) 2,000 mg Tablet Extended Release 2,000 mg PO BEDTIME 0RF calcium carbonate [Calcium 600] 600 mg calcium (1,500 mg) Tablet 1,200 mg PO BEDTIME 0RF vitamin E 400 unit Capsule 400 unit PO DAILY 0RF Ricola Lozenge 1 leonela MUCOUS MEMBRANE Q2H 0RF guaifenesin [Mucinex] 600 mg Tablet Extended Release 12hr 600 mg PO BID 30 Days Qty: 60 0RF olanzapine 5 mg Tablet 5 mg PO BEDTIME 30 Days Qty: 30 2RF amlodipine 2.5 mg tablet 7.5 mg PO DAILY 30 Days Qty: 90 0RF fluoxetine 40 mg capsule 40 mg PO DAILY 30 Days Qty: 30 2RF diazepam 2 mg tablet 1 tab PO BID PRN (Reason: Anxiety) 30 Days Qty: 60 1RF
[2022-04-17] MEDS: diazePAM 2 MG TABLET PO (14:40)
[2022-04-17 15:22] LABS: Appearance Urine HAZY; Color Urine YELLOW; Glucose Urine UA NEG (NEG); Leukocyte Esterase Urine TRACE (NEG); Nitrite Urine POS (NEG); Specific Gravity - Urine 1.025 (1.005-1.025); UACC Culture Trigger YES; Urine Blood NEG (NEG); Urine Ketones 5 MG/DL (NEG); Urine Protein NEG (NEG-TRACE)
[2022-04-17 15:31] LABS: Bacteria Urine 2+ /LPF; RBC Urine 0 /HPF (0); Squamous Epithelial Cell Urine 1+ /LPF
[2022-04-17 15:35] LABS: Amphetamine Screen Urine Not Detected (Not Detect); Barbiturates, Urine Not Detected (Not Detect); Benzodiazepines Screen Urine POSITIVE (Not Detect); Cannabinoid Screen Urine POSITIVE (Not Detect); Cocaine Screen Urine Not Detected (Not Detect); Fentanyl, urine Not Detected (Not Detect); Opiate Screen Urine Not Detected (Not Detect); Phencyclidine Screen Urine Not Detected (Not Detect)
--- NOTE | 2022-04-17 16:27 | PHA.MEDREC ---
med rec complete, no issues Pharmacy Consult ? Medication Reconciliation Pharmacy has completed the medication reconciliation.
--- NOTE | 2022-04-17 17:28 | PM.EVENT ---
Event Note Date of Service: 04/17/22 Event Note: The patient is a 71-year-old female who is an outpatient of this policy writer sales has a history of agitated depression, generalized anxiety reported history of ADD who came to the emergency room with the hope of being admitted to the psychiatric unit and being treated by this policy writer sales. Patient had been hospitalized on the Geriatric Psychiatry Unit on number of months ago. She has been quite stable most recently but unfortunately recently her son who has bipolar disorder recently broke his femur and required care at their house and he was being a somewhat D stabilizing influence. 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 The patient is on a combination Lamictal lithium Wellbutrin fluoxetine olanzapine was recently increased back to 5 mg at bedtime I recommend the patient take 2.5 mg in the morning and an extra 2.5 mg in addition as needed. We discussed the patient's having primary response ability for care taking their son at this time who does have the traumatic femoral injury Above plan reviewed with patient and her they are both in agreement and I do not believe it is in the patient's best interest to remain in the psychiatric pod but can be treated at home
--- NOTE | 2022-04-17 17:47 | MHC.CARE ---
CARE Team was going to meet with pt for evaluation, however, pt tested positive for a UTI and pt's outpatient psychiatric provider, Dr. Shearer, checked in with pt and feels that she should be discharged at this time. If pt re-presents to the ED with similar symptoms, CARE Team will evaluated her when she is medically cleared.
== END 2022-04-17 17:34 | disposition home or self-care (01) ==
PROVIDERS: Nurse Practitioner Family; Emergency Provider Emergency Medicine; PCP Internal Medicine
DX: F33.9 Major depressive disorder, recurrent, unspecified (principal); N39.0 Urinary tract infection, site not specified; F90.9 Attention-deficit hyperactivity disorder, unspecified type; F31.9 Bipolar disorder, unspecified; I10 Essential (primary) hypertension; Z79.899 Other long term (current) drug therapy; Z20.822 Contact with and (suspected) exposure to COVID-19
CPT/HCPCS: 80048; 80307; 81001; 85027; 87086; 87088; 87186; 87635; 93005; 99284

== ENCOUNTER 2022-04-29 10:59 | Inpatient (IN) | payer MEDICARE, SELFPAY ==
--- NOTE | 2022-04-29 | ECG_ITS ---
Test Reason : MED CLEARANCE Blood Pressure : / mmHG Vent. Rate : 076 BPM Atrial Rate : 076 BPM P-R Int : 138 ms QRS Dur : 080 ms QT Int : 382 ms P-R-T Axes : 054 052 030 degrees QTc Int : 429 ms + Normal sinus rhythm Normal ECG When compared with ECG of 17-APR-2022 11:51, No significant change was found Referred By: Kaycee Salazar Electronically Signed By:DAVION VUONG MD
[2022-04-29 11:28] VITALS: BP 142/91; PULSE 98; RESP 18; TEMP 37.3; O2SAT 98; BMI 21.7
--- NOTE | 2022-04-29 11:42 | ED_ITS ---
HPI - General Adult General Chief complaint: Psychiatric Symptoms <NEMO Montague - Last Filed: 04/29/22 17:10> Stated complaint: agitated depression, anxiety <NEMO Montague - Last Filed: 04/29/22 17:10> Time Seen by Provider: 04/29/22 11:42 <NEMO Montague Last Filed: 04/29/22 17:10> Source: patient <NEMO Montague - Last Filed: 04/29/22 17:10> Mode of arrival: ambulatory <NEMO Montague - Last Filed: 04/29/22 17:10> Limitations: no limitations <NEMO Montague - Last Filed: 04/29/22 17:10> History of Present Illness HPI narrative: Patient is a 71 year old male presenting to the emergency department today with depression and racing thoughts. Patient declines any SI or HI. Patient denies any dizziness, lightheadedness, abdominal pain, nausea, vomiting, fever, chills, blurry vision, double vision, loss of vision, chest pain, difficulty breathing, shortness of breath, back pain, night sweats, pain with urination, increased urinary frequency, increased urinary urgency, blood in her urine or stool, sy ncope or a near syncopal episode, recent trauma or falls, bowel incontinence, bladder incontinence, bowel retention, bladder retention, or any other complaints at this time. <NEMO Montague - Last Filed: 04/29/22 17:10> Onset (ago): day(s) <NEMO Montague - Last Filed: 04/29/22 17:10> Severity: mild <NEMO Montague - Last Filed: 04/29/22 17:10> Severity scale (1-10): 2 <NEMO Montague - Last Filed: 04/29/22 17:10> Relieving factors: none <NEMO Montague - Last Filed: 04/29/22 17:10> Exacerbating factors: none <NEMO Montague Last Filed: 04/29/22 17:10> Associated symptoms: denies other symptoms <NEMO Montague - Last Filed: 04/29/22 17:10> Treatments prior to arrival: none <NEMO Montague - Last Filed: 04/29/22 17:10> Related Data Home medications: Home Medications Medication Instructions Recorded Confirmed ascorbic acid (vitamin C) 2,000 mg 2,000 mg PO BEDTIME 09/09/21 04/29/22 tablet,extended release calcium carbonate 600 mg calcium 1,200 mg PO BEDTIME 09/09/21 04/29/22 (1,500 mg) tablet (Calcium) estradiol 10 mcg vaginal tablet 1 tab vaginal MOTH@1000 09/09/21 04/29/22 (Yuvafem) menthol-herbal drugs lozenges 1 leonela mucous membrane Q2H 09/09/21 04/29/22 (Ricola) bupropion HCl 100 mg tablet,12 hr 100 mg PO DAILY 04/17/22 04/29/22 sustained-release dietary supplement 1 cap PO DAILY 04/17/22 04/29/22 lamotrigine 100 mg tablet 100 mg PO BEDTIME 04/17/22 04/29/22 (Lamictal) lithium carbonate 300 mg tablet 300 mg PO BEDTIME 04/17/22 04/29/22 methylphenidate HCl 5 mg tablet 5 mg PO BID PRN focus 04/17/22 04/29/22 Previous Rx's Medication Instructions Recorded amlodipine 2.5 mg tablet 7.5 mg PO DAILY 30 days #90 tabs 09/19/21 diazepam 2 mg tablet 1 tab PO BID PRN Anxiety 30 days 09/19/21 #60 tabs fluoxetine 40 mg capsule 40 mg PO DAILY 30 days #30 caps 09/19/21 olanzapine 5 mg tablet 5 mg PO BEDTIME 30 days #30 tabs 09/19/21 <NEMO Montague - Last Filed: 04/29/22 17:10> Allergies/adverse reactions: Allergies Allergy/AdvReac Type Severity Reaction Status Date / Time No Known Allergies Allergy Verified 09/24/21 12:18 <NEMO Montague - Last Filed: 04/29/22 17:10> Review of Systems Constitutional: Constitutional: Reports no additional constitutional complaints, Denies chills, Denies fever(s) and Denies night sweats <NEMO Montague - Last Filed: 04/29/22 17:10> Eyes: Eyes: Reports no additional eye complaints, Denies blurry vision, Denies change in vision, Denies diplopia, Denies eye discharge, Denies loss of vision and Denies eye pain <NEMO Montague - Last Filed: 04/29/22 17:10> ENT: Denies dizziness <NEMO Montague - Last Filed: 04/29/22 17:10> Cardiovascular: Cardiovascular: Reports no additional cardiovascular complaints, Denies chest pain, Denies lightheadedness, Denies Loss of Consciousness and Denies dyspnea <NEMO Montague - Last Filed: 04/29/22 17:10> Respiratory: Respiratory: Reports no additional respiratory complaints and Denies dyspnea <NEMO Montague - Last Filed: 04/29/22 17:10> Gastrointestinal: Gastrointestinal: Reports no additional gastrointestinal complaints, Denies abdominal pain, Denies melena, Denies hematochezia, Denies change in bowel habits and Denies change in stool character <NEMO Montague - Last Filed: 04/29/22 17:10> Genitourinary: Genitourinary: Denies hematuria, Denies urinary frequency, Denies dysuria, Denies urinary incontinence, Denies urinary hesitancy and Denies urinary urgency <NEMO Montague - Last Filed: 04/29/22 17:10> Musculoskeletal: Musculoskeletal: Reports no additional musculoskeletal complaints, Denies numbness and Denies tingling <NEMO Montague - Last Filed: 04/29/22 17:10> Neurologic: Denies dizziness, Denies loss of vision, Denies numbness and Denies tingling <NEMO Montague - Last Filed: 04/29/22 17:10> Psychiatric: Psychiatric: Reports no additional psychiatric complaints, Reports depression and Denies suicidal ideation <NEMO Montague - Last Filed: 04/29/22 17:10> Endocrine: Endocrine: Reports no additional endocrine complaints <NEMO Montague - Last Filed: 04/29/22 17:10> Hematologic/Lymphatic: Hematologic/Lymphatic: Reports no additional hematologic/lymphatic complaints <NEMO Montague - Last Filed: 04/29/22 17:10> Allergic/Immunologic: Allergic/Immunologic: Reports no additional allergic/im munologic complaints <NEMO Montague - Last Filed: 04/29/22 17:10> [facility] Past Medical History Attestation statement: The following information was validated with the patient. <NEMO Montague - Last Filed: 04/29/22 17:10> Source: old records reviewed <NEMO Montague - Last Filed: 04/29/22 17:10> Social History Social History: Social History Household Members: Spouse Household Members Other:: And two cats. Housing: House Do you presently have visiting nurse or other home services: No Alcohol intake: never Patient Tobacco Use Status: Former Tobacco user Quit Date: 2013 Tobacco use type: Cigarette e-Cigarette/Vaping Use: Never Used Second Hand Smoke Exposure: No Substance Use Type: Marijuana Advance Directives: Yes Advance Directives Information Provided: No Advance Directives on File: No Healthcare Proxy: No Guardian: No service: No Sexual orientation: Straight/Heterosexual <NEMO Montague - Last Filed: 04/29/22 17:10> Physical Exam ED Vital Signs: Vital Signs - 24 hr 04/29/22 11:28 04/29/22 17:25 Temperature 99.1 F 98.9 F Pulse Rate 98 82 Respiratory Rate 18 20 Blood Pressure 142/91 H 141/80 H Pulse Oximetry 98 95 Oxygen Delivery Method Room Air Room Air BMI result Body Mass Index 21.7 <NEMO Montague - Last Filed: 04/29/22 17:10> Vital Signs - 24 hr 04/29/22 11:28 04/29/22 17:25 Temperature 99.1 F 98.9 F Pulse Rate 98 82 Respiratory Rate 18 20 Blood Pressure 142/91 H 141/80 H Pulse Oximetry 98 95 Oxygen Delivery Method Room Air Room Air BMI result Body Mass Index 21.7 <NEMO Knox - Last Filed: 04/29/22 17:53> Const General: cooperative, no acute distress, alert and awake <NEMO Montague - Last Filed: 04/29/22 17:10> Nutritional Appearance: well nourished <NEMO Montague - Last Filed: 04/29/22 17:10> Orientation/consciousness: patient oriented x3 <NEMO Montague - Last Filed: 04/29/22 17:10> Limitations: no limitations <Kaycee Martin PA - Last Filed: 04/29/22 17:10> HENMT Head: Yes normal to inspection and Yes atraumatic <Kaycee Martin PA - Last Filed: 04/29/22 17:10> Ears: hearing grossly normal bilaterally and external ears normal <Kaycee Martin PA - Last Filed: 04/29/22 17:10> General nose exam: Normal external nose present, no nasal discharge noted and no epistaxis <Kaycee Salazar PA - Last Filed: 04/29/22 17:10> Face and sinus: Yes normal facial exam, No abrasion and No laceration <Hetal Montague A - Last Filed: 04/29/22 17:10> Mouth: Normal oral and palatal mucosa present, no drooling and no muffled voice <Kaycee Salazar PA - Last Filed: 04/29/22 17:10> Eyes General: appearance normal, both eyes and all related structures <Kaycee Salazar PA - Last Filed: 04/29/22 17:10> Periorbital: periorbital findings normal <Kaycee Salazar PA - Last Filed: 04/29/22 17:10> Eyelids: Yes eyelids normal <Kaycee Salazar PA - Last Filed: 04/29/22 17:10> Conjunctivae: conjunctivae normal <Kaycee Martin PA - Last Filed: 04/29/22 17:10> Pupils: Equal, round and reactive pupils present <NEMO Montague - Last Filed: 04/29/22 17:10> EOM: EOMs intact bilaterally <Kaycee Salazar PA - Last Filed: 04/29/22 17:10> Neck Neck: Yes normal visual inspection, Yes full ROM and Yes no lymphadenopathy <Kaycee Salazar PA - Last Filed: 04/29/22 17:10> Chest Chest palpation & inspection: normal inspection of the chest <NEMO Montague - Last Filed: 04/29/22 17:10> Resp Effort & Inspection: normal respiratory effort and able to speak in complete sentences <NEMO Montague - Last Filed: 04/29/22 17:10> Auscultation: clear to auscultation bilaterally <Kaycee Salazar PA - Last Filed: 04/29/22 17:10> Cardio Rate: regular rate <Kaycee Salazar PA - Last Filed: 04/29/22 17:10> Rhythm: regular rhythm <Kaycee Salazar PA - Last Filed: 04/29/22 17:10> GI Inspection: Yes normal to inspection <Kaycee Salazar PA - Last Filed: 04/29/22 17:10> Neuro General: patient oriented x3 and moves all extremities <Kaycee Salazar PA - Last Filed: 04/29/22 17:10> Cranial nerves: Yes Equal, round and reactive pupils present <Kaycee Salazar PA - Last Filed: 04/29/22 17:10> Cognition (Neuro): normal cognition <Kaycee Salazar PA - Last Filed: 04/29/22 17:10> Motor exam (neuro): 5/5 motor strength present throughout <Kaycee Burlesonjorge PA - Last Filed: 04/29/22 17:10> Sensory Exam: Normal double simultaneous stimulation for sensation <Kaycee Salazar PA - Last Filed: 04/29/22 17:10> Coordination: iduklo-gt-syho test normal <Kaycee Burlesonjorge PA - Last Filed: 04/29/22 17:10> Extrem General: Yes normal to inspection, Yes full ROM and Yes capillary refill normal <Kaycee Salazar PA - Last Filed: 04/29/22 17:10> Psych Appearance: grossly normal <Kaycee Burlesonjorge PA - Last Filed: 04/29/22 17:10> Mental Status: mental status grossly normal <Kaycee Burlesonjorge PA - Last Filed: 04/29/22 17:10> Affect: normal affect <Kaycee Burlesonjorge PA - Last Filed: 04/29/22 17:10> Attitude: cooperative <Kaycee Martin PA - Last Filed: 04/29/22 17:10> Thought process: Racing thoughts present <Kayceekash BurlesonNEMO patel - Last Filed: 04/29/22 17:10> Thought content: Normal thought content present <Kaycee NEMO Salazar - Last Filed: 04/29/22 17:10> Insight: Good insight present (Psych) <Kaycee Salazar, PA - Last Filed: 04/29/22 17:10> Course Reevaluation(s) Reevaluation #1: Patient will go to [facility], major depression. <NEMO Knox - Last Filed: 04/29/22 17:53> Medical Decision Making MDM Narrative Medical decision making narrative: Patient is a 71 year old female presenting to the emergency department today with racing thoughts and depression. Patient's physical exam was unremarkable. Patient's blood work showed an elevated white blood cell count but was otherwise unremarkable. 1245 patient determined not to have sepsis or to be in septic shock. I explained my physical exam findings as well as all test results to the patient. I answered all questions asked by the patient. Patient is awaiting behavioral health evaluation. Physician observation began at 1708. <NEMO Montague - Last Filed: 04/29/22 17:10> Differential Diagnosis Differential Diagnosis: depression, agitation <NEMO Montague - Last Filed: 04/29/22 17:10> Medical Records Medical records reviewed: Yes I reviewed the patient's medical records. <NEMO Montague - Last Filed: 04/29/22 17:10> Lab Data Lab results reviewed: Yes I reviewed the patient's lab results. <NEMO Montague - Last Filed: 04/29/22 17:10> Result diagrams: : 04/29/22 12:18 04/29/22 12:18 <NEMO Montague - Last Filed: 04/29/22 17:10> Labs: Lab Results 04/29/22 04/29/22 04/29/22 Range/Units 12:13 12:13 12:14 WBC (4.8-10.8) X10*3/uL RBC (4.20-5.50) X10*6/uL Hgb (12.0-16.0) g/dl Hct (37.0-47.0) % MCV (80.0-98.0) fL MCH (27.0-33.0) pg MCHC (31.0-35.0) g/dl RDW (11.0-16.0) % Plt Count (160-400) X10*3/uL MPV (9.4-12.3) fL Immature Gran % (Auto) (0.0-0.4) % Neut % (Auto) (45-73) % Lymph % (Auto) (20-40) % [place] % (Auto) (2-11) % Eos % (Auto) (0-4) % Baso % (Auto) (0-2) % Lymph # (Auto) (1.2-4.9) X10*3/uL [place] # (Auto) (0.1-1.2) X10*3/uL Eos # (Auto) (0.0-0.4) X10*3/uL Baso # (Auto) (0.0-0.2) X10*3/uL Abs Immat Gran (auto) (0.00-0.03) X10*3/uL Absolute Neuts (auto) (2.0-8.3) x10*3/uL Absolute Nucleated RBC (0.0-0.012) X10*3/uL Nucleated RBC % (auto) (0.0-0.2) /100WBC Sodium (135-145) mmol/L Potassium (3.3-5.1) mmol/L Chloride (96-108) mmol/L Carbon Dioxide (22-29) mmol/L Anion Gap (12-20) BUN (9-16) mg/dL Creatinine (0.5-1.4) mg/dL Estim Creat Clear Calc Estimated GFR Random Glucose (60-115) mg/dL Calcium (8.4-10.2) mg/dL Total Bilirubin (0.0-1.0) mg/dL AST (5-31) U/L ALT (0-31) U/L Alkaline Phosphatase (39-117) U/L Total Protein (6.5-8.0) g/dL Albumin (3.5-5.0) g/dL Urine Color YELLOW Urine Appearance CLEAR Urine pH 6.5 (5.0-8.0) Ur Specific [place] <= 1.005 (1.005-1.025) Urine Protein NEG (NEG-TRACE) MG/DL Urine Glucose (UA) NEG (NEG) MG/DL Urine Ketones NEG (NEG) MG/DL Urine Blood NEG (NEG) Urine Nitrite NEG (NEG) Ur Leukocyte Esterase NEG (NEG) Urine Opiates Screen Not Detected (Not Detect) Urine Fentanyl Screen Not Detected (Not Detect) Ur Barbiturates Screen Not Detected (Not Detect) Ur Phencyclidine Scrn Not Detected (Not Detect) Ur Amphetamines Screen Not Detected (Not Detect) U Benzodiazepines Scrn POSITIVE H (Not Detect) [place] (0.60-1.20) mmol/L Urine Cocaine Screen Not Detected (Not Detect) U Marijuana (THC) Screen POSITIVE H (Not Detect) COVID-19 (REE) Negative (Negative) COVID-19 Clin Com See Note 04/29/22 04/29/22 04/29/22 Range/Units 12:18 12:18 12:18 WBC 13.0 H (4.8-10.8) X10*3/uL RBC 5.22 (4.20-5.50) X10*6/uL Hgb 15.5 (12.0-16.0) g/dl Hct 48.3 H (37.0-47.0) % MCV 92.5 (80.0-98.0) fL MCH 29.7 (27.0-33.0) pg MCHC 32.1 (31.0-35.0) g/dl RDW 13.1 (11.0-16.0) % Plt Count 362 (160-400) X10*3/uL MPV 10.0 (9.4-12.3) fL Immature Gran % (Auto) 0.6 H (0.0-0.4) % Neut % (Auto) 86.8 H (45-73) % Lymph % (Auto) 5.4 L (20-40) % [place] % (Auto) 5.7 (2-11) % Eos % (Auto) 1.2 (0-4) % Baso % (Auto) 0.3 (0-2) % Lymph # (Auto) 0.7 L (1.2-4.9) X10*3/uL [place] # (Auto) 0.7 (0.1-1.2) X10*3/uL Eos # (Auto) 0.2 (0.0-0.4) X10*3/uL Baso # (Auto) 0.0 (0.0-0.2) X10*3/uL Abs Immat Gran (auto) 0.08 H (0.00-0.03) X10*3/uL Absolute Neuts (auto) 11.3 H (2.0-8.3) x10*3/uL Absolute Nucleated RBC 0.000 (0.0-0.012) X10*3/uL Nucleated RBC % (auto) 0.0 (0.0-0.2) /100WBC Sodium 141 (135-145) mmol/L Potassium 4.6 (3.3-5.1) mmol/L Chloride 107 (96-108) mmol/L Carbon Dioxide 25 (22-29) mmol/L Anion Gap 14 (12-20) BUN 13 (9-16) mg/dL Creatinine 0.94 (0.5-1.4) mg/dL Estim Creat Clear Calc 40.8 Estimated GFR 59 Random Glucose 94 (60-115) mg/dL Calcium 10.2 (8.4-10.2) mg/dL Total Bilirubin 0.2 (0.0-1.0) mg/dL AST 20 (5-31) U/L ALT 30 (0-31) U/L Alkaline Phosphatase 128 H (39-117) U/L Total Protein 6.9 (6.5-8.0) g/dL Albumin 4.3 (3.5-5.0) g/dL Urine Color Urine Appearance Urine pH (5.0-8.0) Ur Specific [place] (1.005-1.025) Urine Protein (NEG-TRACE) MG/DL Urine Glucose (UA) (NEG) MG/DL Urine Ketones (NEG) MG/DL Urine Blood (NEG) Urine Nitrite (NEG) Ur Leukocyte Esterase (NEG) Urine Opiates Screen (Not Detect) Urine Fentanyl Screen (Not Detect) Ur Barbiturates Screen (Not Detect) Ur Phencyclidine Scrn (Not Detect) Ur Amphetamines Screen (Not Detect) U Benzodiazepines Scrn (Not Detect) [place] < 0.10 L (0.60-1.20) mmol/L Urine Cocaine Screen (Not Detect) U Marijuana (THC) Screen (Not Detect) COVID-19 (REE) (Negative) COVID-19 Clin Com <NEMO Montague - Last Filed: 04/29/22 17:10> Lab Results 04/29/22 04/29/22 04/29/22 Range/Units 12:13 12:13 12:14 WBC (4.8-10.8) X10*3/uL RBC (4.20-5.50) X10*6/uL Hgb (12.0-16.0) g/dl Hct (37.0-47.0) % MCV (80.0-98.0) fL MCH (27.0-33.0) pg MCHC (31.0-35.0) g/dl RDW (11.0-16.0) % Plt Count (160-400) X10*3/uL MPV (9.4-12.3) fL Immature Gran % (Auto) (0.0-0.4) % Neut % (Auto) (45-73) % Lymph % (Auto) (20-40) % [place] % (Auto) (2-11) % Eos % (Auto) (0-4) % Baso % (Auto) (0-2) % Lymph # (Auto) (1.2-4.9) X10*3/uL [place] # (Auto) (0.1-1.2) X10*3/uL Eos # (Auto) (0.0-0.4) X10*3/uL Baso # (Auto) (0.0-0.2) X10*3/uL Abs Immat Gran (auto) (0.00-0.03) X10*3/uL Absolute Neuts (auto) (2.0-8.3) x10*3/uL Absolute Nucleated RBC (0.0-0.012) X10*3/uL Nucleated RBC % (auto) (0.0-0.2) /100WBC Sodium (135-145) mmol/L Potassium (3.3-5.1) mmol/L Chloride (96-108) mmol/L Carbon Dioxide (22-29) mmol/L Anion Gap (12-20) BUN (9-16) mg/dL Creatinine (0.5-1.4) mg/dL Estim Creat Clear Calc Estimated GFR Random Glucose (60-115) mg/dL Calcium (8.4-10.2) mg/dL Total Bilirubin (0.0-1.0) mg/dL AST (5-31) U/L ALT (0-31) U/L Alkaline Phosphatase (39-117) U/L Total Protein (6.5-8.0) g/dL Albumin (3.5-5.0) g/dL Urine Color YELLOW Urine Appearance CLEAR Urine pH 6.5 (5.0-8.0) Ur Specific [place] <= 1.005 (1.005-1.025) Urine Protein NEG (NEG-TRACE) MG/DL Urine Glucose (UA) NEG (NEG) MG/DL Urine Ketones NEG (NEG) MG/DL Urine Blood NEG (NEG) Urine Nitrite NEG (NEG) Ur Leukocyte Esterase NEG (NEG) Urine Opiates Screen Not Detected (Not Detect) Urine Fentanyl Screen Not Detected (Not Detect) Ur Barbiturates Screen Not Detected (Not Detect) Ur Phencyclidine Scrn Not Detected (Not Detect) Ur Amphetamines Screen Not Detected (Not Detect) U Benzodiazepines Scrn POSITIVE H (Not Detect) [place] (0.60-1.20) mmol/L Urine Cocaine Screen Not Detected (Not Detect) U Marijuana (THC) Screen POSITIVE H (Not Detect) COVID-19 (REE) Negative (Negative) COVID-19 Clin Com See Note 04/29/22 04/29/22 04/29/22 Range/Units 12:18 12:18 12:18 WBC 13.0 H (4.8-10.8) X10*3/uL RBC 5.22 (4.20-5.50) X10*6/uL Hgb 15.5 (12.0-16.0) g/dl Hct 48.3 H (37.0-47.0) % MCV 92.5 (80.0-98.0) fL MCH 29.7 (27.0-33.0) pg MCHC 32.1 (31.0-35.0) g/dl RDW 13.1 (11.0-16.0) % Plt Count 362 (160-400) X10*3/uL MPV 10.0 (9.4-12.3) fL Immature Gran % (Auto) 0.6 H (0.0-0.4) % Neut % (Auto) 86.8 H (45-73) % Lymph % (Auto) 5.4 L (20-40) % [place] % (Auto) 5.7 (2-11) % Eos % (Auto) 1.2 (0-4) % Baso % (Auto) 0.3 (0-2) % Lymph # (Auto) 0.7 L (1.2-4.9) X10*3/uL [place] # (Auto) 0.7 (0.1-1.2) X10*3/uL Eos # (Auto) 0.2 (0.0-0.4) X10*3/uL Baso # (Auto) 0.0 (0.0-0.2) X10*3/uL Abs Immat Gran (auto) 0.08 H (0.00-0.03) X10*3/uL Absolute Neuts (auto) 11.3 H (2.0-8.3) x10*3/uL Absolute Nucleated RBC 0.000 (0.0-0.012) X10*3/uL Nucleated RBC % (auto) 0.0 (0.0-0.2) /100WBC Sodium 141 (135-145) mmol/L Potassium 4.6 (3.3-5.1) mmol/L Chloride 107 (96-108) mmol/L Carbon Dioxide 25 (22-29) mmol/L Anion Gap 14 (12-20) BUN 13 (9-16) mg/dL Creatinine 0.94 (0.5-1.4) mg/dL Estim Creat Clear Calc 40.8 Estimated GFR 59 Random Glucose 94 (60-115) mg/dL Calcium 10.2 (8.4-10.2) mg/dL Total Bilirubin 0.2 (0.0-1.0) mg/dL AST 20 (5-31) U/L ALT 30 (0-31) U/L Alkaline Phosphatase 128 H (39-117) U/L Total Protein 6.9 (6.5-8.0) g/dL Albumin 4.3 (3.5-5.0) g/dL Urine Color Urine Appearance Urine pH (5.0-8.0) Ur Specific [place] (1.005-1.025) Urine Protein (NEG-TRACE) MG/DL Urine Glucose (UA) (NEG) MG/DL Urine Ketones (NEG) MG/DL Urine Blood (NEG) Urine Nitrite (NEG) Ur Leukocyte Esterase (NEG) Urine Opiates Screen (Not Detect) Urine Fentanyl Screen (Not Detect) Ur Barbiturates Screen (Not Detect) Ur Phencyclidine Scrn (Not Detect) Ur Amphetamines Screen (Not Detect) U Benzodiazepines Scrn (Not Detect) [place] < 0.10 L (0.60-1.20) mmol/L Urine Cocaine Screen (Not Detect) U Marijuana (THC) Screen (Not Detect) COVID-19 (REE) (Negative) COVID-19 Clin Com <NEMO Knox - Last Filed: 04/29/22 17:53> Discharge Plan Discharge Clinical Impression: Depression <NEMO Montague - Last Filed: 04/29/22 17:10> Patient Disposition: Still a Patient <NEMO Montague - Last Filed: 04/29/22 17:10> Prescriptions: No Action Mature Women's Capsule 1 cap PO DAILY lithium carbonate 300 mg tablet 300 mg PO BEDTIME lamotrigine [Lamictal] 100 mg Tablet 100 mg PO BEDTIME methylphenidate HCl 5 mg Tablet 5 mg PO BID PRN (Reason: focus) bupropion HCl 100 mg Tablet Sustained-Release 12 Hr 100 mg PO DAILY estradiol [Yuvafem] 10 mcg tablet 1 tab vaginal MOTH@1000 ascorbic acid (vitamin C) 2,000 mg Tablet Extended Release 2,000 mg PO BEDTIME calcium carbonate [Calcium 600] 600 mg calcium (1,500 mg) Tablet 1,200 mg PO BEDTIME Ricola Lozenge 1 leonela MUCOUS MEMBRANE Q2H olanzapine 5 mg Tablet 5 mg PO BEDTIME 30 Days Qty: 30 2RF amlodipine 2.5 mg tablet 7.5 mg PO DAILY 30 Days Qty: 90 0RF fluoxetine 40 mg capsule 40 mg PO DAILY 30 Days Qty: 30 2RF diazepam 2 mg tablet 1 tab PO BID PRN (Reason: Anxiety) 30 Days Qty: 60 1RF <NEMO Montague - Last Filed: 04/29/22 17:10> Print Language: Belarusian <NEMO Montague - Last Filed: 04/29/22 17:10>
[2022-04-29 12:34] LABS: MANUAL DIFF FLAG NO
[2022-04-29 12:39] LABS: Basophils Percent Auto 0.3 % (0-2); Eosinophils Absolute Auto 0.2 X10*3/uL (0.0-0.4); Eosinophils Percent Auto 1.2 % (0-4); Hematocrit 48.3 % (37.0-47.0); Hemoglobin 15.5 g/dl (12.0-16.0); Imm Gran Abs Auto 0.08 X10*3/uL (0.00-0.03); Imm Gran Pct Auto 0.6 % (0.0-0.4); Lymphocytes Absolute Auto 0.7 X10*3/uL (1.2-4.9); Lymphocytes Percent Auto 5.4 % (20-40); Mean Corpuscular HGB Conc 32.1 g/dl (31.0-35.0); Mean Corpuscular Hemoglobin 29.7 pg (27.0-33.0); Mean Corpuscular Volume 92.5 fL (80.0-98.0); Monocytes Absolute Auto 0.7 X10*3/uL (0.1-1.2); Monocytes Percent Auto 5.7 % (2-11); Neutrophils Absolute Auto 11.3 x10*3/uL (2.0-8.3); Neutrophils Percent Auto 86.8 % (45-73); Platelet Count 362 X10*3/uL (160-400); Red Blood Count 5.22 X10*6/uL (4.20-5.50); Red Cell Distribution Width 13.1 % (11.0-16.0)
[2022-04-29 12:44] LABS: Appearance Urine CLEAR; Color Urine YELLOW; Glucose Urine UA NEG (NEG); Leukocyte Esterase Urine NEG (NEG); Nitrite Urine NEG (NEG); PH 6.5 (5.0-8.0); Specific Gravity - Urine <= 1.005 (1.005-1.025); Urine Blood NEG (NEG); Urine Ketones NEG (NEG); Urine Protein NEG (NEG-TRACE)
[2022-04-29 12:56] LABS: Alanine Aminotransferase 30 U/L (0-31); Albumin Level 4.3 g/dL (3.5-5.0); Alkaline Phosphatase 128 U/L (39-117); Anion Gap 14 (12-20); Aspartate Amino Transferase 20 U/L (5-31); Bilirubin Total 0.2 mg/dL (0.0-1.0); Blood Urea Nitrogen 13 mg/dL (9-16); Calcium 10.2 mg/dL (8.4-10.2); Carbon Dioxide 25 mmol/L (22-29); Chloride 107 mmol/L (96-108); Creatinine Clr Calc Pharmacy 40.8; Estimated Glomerular Filt Rate 59; Glucose Random 94 mg/dL (60-115); Potassium 4.6 mmol/L (3.3-5.1); Sodium 141 mmol/L (135-145); Total Protein 6.9 g/dL (6.5-8.0)
[2022-04-29 13:00] LABS: Amphetamine Screen Urine Not Detected (Not Detect); Barbiturates, Urine Not Detected (Not Detect); Benzodiazepines Screen Urine POSITIVE (Not Detect); Cannabinoid Screen Urine POSITIVE (Not Detect); Cocaine Screen Urine Not Detected (Not Detect); Fentanyl, urine Not Detected (Not Detect); Opiate Screen Urine Not Detected (Not Detect); Phencyclidine Screen Urine Not Detected (Not Detect)
[2022-04-29 13:05] LABS: COVID-19 Test Negative (Negative)
--- NOTE | 2022-04-29 13:28 | PC.NURSE ---
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
[2022-04-29] MEDS: diazePAM 2 MG TABLET PO (14:57)
[2022-04-29 17:25] VITALS: BP 141/80; PULSE 82; RESP 20; TEMP 37.2; O2SAT 95
[2022-04-29 19:01] VITALS: BP 174/82; PULSE 85; RESP 16; O2SAT 95
--- NOTE | 2022-04-29 19:53 | HO.PSYADMNOT ---
HPI Date of Service: 04/29/22 Chief Complaint: agitated depression, anxiety Sources of Information: patient interviewed, chart reviewed and crisis/core team assessment reviewed HPI Subjective Notes: Pollack Warning and Conditional Voluntary Healthcare Proxy: No Guardianship: No Medical Problems Affecting Mental Status: No Narrative: Miriam is a 71 y.o. Female who carries a dx of ZAC, Bipolar II DO, and ADHD. She presented to [facility] ED on 04/29/22 due to worsening depression and anxiety x 3-4 weeks, agitated mood, and feeling out of control.? 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 Recent CARE team eval at [facility] ED on 04/17/22 for similar presentation but dispo was to follow up with OP providers. Pt reports she has been adherent with her medications, sees Dr. Shearer in the OP setting. However, Li level <0.10 on admission. Utox positive for benzodiazepines, cannabis. Denies alcohol abuse. I evaluated the pt this evening and upon interview she reports she is ?anxious.? She is very adamant that she wants placement on the [facility] psych floor. She is shaking, tearful, declined to participate in interview.? Past Psychiatric History: -Pt sees Dr. Shearer in OP setting -Remote hx of [facility] 12 yrs ago, recent admission at [facility] S1 08/2021. 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 She and her live in their home in [place]. Substance History: -Cannabis: uses three times a week Diagnostics Vital Signs (24Hr): Vital Signs - 24 hr 04/29/22 11:28 04/29/22 17:25 04/29/22 19:01 Temperature 99.1 F 98.9 F Pulse Rate 98 82 85 Respiratory Rate 18 20 16 Blood Pressure 142/91 H 141/80 H 174/82 H Pulse Oximetry 98 95 95 Oxygen Delivery Method Room Air Room Air Room Air BMI result Body Mass Index 21.7 Labs Results: 04/29/22 12:18 05/05/22 07:00 Labs: Laboratory Results - last 48 hr 04/29/22 04/29/22 04/29/22 12:13 12:13 12:14 WBC RBC Hgb Hct MCV MCH MCHC RDW Plt Count MPV Immature Gran % (Auto) Neut % (Auto) Lymph % (Auto) [place] % (Auto) Eos % (Auto) Baso % (Auto) Lymph # (Auto) [place] # (Auto) Eos # (Auto) Baso # (Auto) Abs Immat Gran (auto) Absolute Neuts (auto) Absolute Nucleated RBC Nucleated RBC % (auto) Sodium Potassium Chloride Carbon Dioxide Anion Gap BUN Creatinine Estim Creat Clear Calc Estimated GFR Random Glucose Calcium Total Bilirubin AST ALT Alkaline Phosphatase Total Protein Albumin Urine Color YELLOW Urine Appearance CLEAR Urine pH 6.5 Ur Specific [place] <= 1.005 Urine Protein NEG Urine Glucose (UA) NEG Urine Ketones NEG Urine Blood NEG Urine Nitrite NEG Ur Leukocyte Esterase NEG Urine Opiates Screen Not Detected Urine Fentanyl Screen Not Detected Ur Barbiturates Screen Not Detected Ur Phencyclidine Scrn Not Detected Ur Amphetamines Screen Not Detected U Benzodiazepines Scrn POSITIVE H [place] Urine Cocaine Screen Not Detected U Marijuana (THC) Screen POSITIVE H COVID-19 (REE) Negative COVID-19 Clin Com See Note 04/29/22 04/29/22 04/29/22 12:18 12:18 12:18 WBC 13.0 H RBC 5.22 Hgb 15.5 Hct 48.3 H MCV 92.5 MCH 29.7 MCHC 32.1 RDW 13.1 Plt Count 362 MPV 10.0 Immature Gran % (Auto) 0.6 H Neut % (Auto) 86.8 H Lymph % (Auto) 5.4 L [place] % (Auto) 5.7 Eos % (Auto) 1.2 Baso % (Auto) 0.3 Lymph # (Auto) 0.7 L [place] # (Auto) 0.7 Eos # (Auto) 0.2 Baso # (Auto) 0.0 Abs Immat Gran (auto) 0.08 H Absolute Neuts (auto) 11.3 H Absolute Nucleated RBC 0.000 Nucleated RBC % (auto) 0.0 Sodium 141 Potassium 4.6 Chloride 107 Carbon Dioxide 25 Anion Gap 14 BUN 13 Creatinine 0.94 Estim Creat Clear Calc 40.8 Estimated GFR 59 Random Glucose 94 Calcium 10.2 Total Bilirubin 0.2 AST 20 ALT 30 Alkaline Phosphatase 128 H Total Protein 6.9 Albumin 4.3 Urine Color Urine Appearance Urine pH Ur Specific [place] Urine Protein Urine Glucose (UA) Urine Ketones Urine Blood Urine Nitrite Ur Leukocyte Esterase Urine Opiates Screen Urine Fentanyl Screen Ur Barbiturates Screen Ur Phencyclidine Scrn Ur Amphetamines Screen U Benzodiazepines Scrn [place] < 0.10 L Urine Cocaine Screen U Marijuana (THC) Screen COVID-19 (ERE) COVID-19 Clin Com Meds/Allergies Meds Home Medications Medication Instructions Recorded Confirmed Type ascorbic acid (vitamin C) 2,000 mg 2,000 mg PO BEDTIME 09/09/21 04/29/22 History tablet,extended release calcium carbonate 600 mg calcium 1,200 mg PO BEDTIME 09/09/21 04/29/22 History (1,500 mg) tablet (Calcium) estradiol 10 mcg vaginal tablet 1 tab vaginal MOTH@1000 09/09/21 04/29/22 History (Yuvafem) menthol-herbal drugs lozenges 1 leonela mucous membrane Q2H 09/09/21 04/29/22 History (Ricola) bupropion HCl 100 mg tablet,12 hr 100 mg PO DAILY 04/17/22 04/29/22 History sustained-release dietary supplement 1 cap PO DAILY 04/17/22 04/29/22 History lamotrigine 100 mg tablet 100 mg PO BEDTIME 04/17/22 04/29/22 History (Lamictal) lithium carbonate 300 mg tablet 300 mg PO BEDTIME 04/17/22 04/29/22 History methylphenidate HCl 5 mg tablet 5 mg PO BID PRN focus 04/17/22 04/29/22 History Allergies Allergies Allergy/AdvReac Type Severity Reaction Status Date / Time No Known Allergies Allergy Verified 09/24/21 12:18 Mental Status Exam Mental Status Exam Narrative: A&O. In hospital attire, good hygiene, normal body habitus. Good eye contact, attentive. No Tics or Tremors. No abnormal involuntary movements. Anxious, guarded and difficulty engaging due to increased anxiety. Non-pressured speech, spontaneous with regular rate and rhythm, normal volume and prosody. No prolonged speech latency or dysarthria. Mood is ?anxious, affect is nervous. Denies SI/SIB/HI upon inquiry. Denies A/VH or delusional thought content. Thoughts are coherent, organized. No known cognitive or memory impairment. Insight/ Judgment fair and adequate. Assessment & Plan Assessment & Plan (1) Bipolar II disorder: Status: Acute Code(s): F31.81 - Bipolar II disorder (2) ADHD (attention deficit hyperactivity disorder): Status: Acute Code(s): F90.9 - Attention-deficit hyperactivity disorder, unspecified type (3) ZAC (generalized anxiety disorder): Status: Acute Code(s): F41.1 - Generalized anxiety disorder Plan Miriam is a 71 y.o. Female who carries a dx of ZAC, Bipolar II DO, and ADHD. She presented to [facility] ED on 04/29/22 due to worsening depression and anxiety x 3-4 weeks, agitated mood, and feeling out of control.? 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 Recent CARE team eval at [facility] ED on 04/17/22 for similar presentation but dispo was to follow up with OP providers. Pt reports she has been adherent with her medications, sees Dr. Shearer in the OP setting. However, Li level <0.10 on admission. Utox positive for benzodiazepines, cannabis. Denies alcohol abuse. Plan: Pt reports she has been med-adherent, however Li level <0.10. She is adamant that she does not want med changes, willing to trial clonidine 0.1 mg TID PRN for hyperarousal and anxiety. Q15 min safety checks, CV Monitor response to medications. Monitor for safety in the milieu. Discharge on stabilization. Patient seen. Chart reviewed. Discussed with team. Obtain collateral contact info?as needed Patient educated on: medication risk/benefits Reason for continued inpatient stay Substantial Risk for: med/psych decompensation
[2022-04-29] MEDS: Ascorbic Acid 500 MG TABLET 2000 MG PO (20:13)
[2022-04-29] MEDS: Lithium Carbonate 300 MG CAPSULE PO (20:14)
[2022-04-29] MEDS: OLANZapine 5 MG TABLET PO (20:14)
[2022-04-29] MEDS: cloNIDine HCL 0.1 MG TABLET PO (20:15)
[2022-04-29] MEDS: lamoTRIgine 100 MG TABLET PO (20:15)
[2022-04-29 20:57] VITALS: BP 165/83; PULSE 83; RESP 18; TEMP 36.8; O2SAT 98
[2022-04-29] MEDS: guaiFENesin DM 600/30 1 TAB TAB.ER.12H PO (21:08)
--- NOTE | 2022-04-29 21:46 | PC.ADMIT ---
71 y.o female with a hx of MDD recurrent, unspecified, by hx of ADHD and Bipolar II, self presented to [facility] seeking inpatient psych admission. The Pt reported that she had come to the ED the previous week looking to be admitted on S1 but decided to D/C when no bed was available. She presented with increasing agitation, anxiety and depressive symptoms, no psychosis. Pt currently denies SI/HI/AH/VH. She reported appetite and sleep disturbances. She arrived on the unit via wheelchair at approx. 1915. Vital signs WNL except BP at 165/83. Pt appeared with an anxious affect and mood. Anxiety level at 10/10 on arrival to unit, kept asking whether there was a possibility of transfer to S1, she reported that she did not feel safe on the M5. Pt was cooperative with the admission process, HS medications plus prn Clonidine received with good effect- Pt's anxiety decreased. Pt signed a CV, admitted to feeling safe after reassurance of safety. Prior to arrival on unit,Nurse to nurse was done, was notified and admission orders were entered.
[2022-04-30 09:00] VITALS: BP 127/86; PULSE 87; TEMP 37.1
[2022-04-30] MEDS: FLUoxetine HCl 20 MG CAPSULE 40 MG PO (09:10)
[2022-04-30] MEDS: amLODIPine Besylate 2.5 MG TABLET 7.5 MG PO (09:10)
[2022-04-30] MEDS: diazePAM 2 MG TABLET PO ×2 (10:27→19:50)
[2022-04-30] MEDS: guaiFENesin DM 600/30 1 TAB TAB.ER.12H PO ×2 (11:15→21:17)
--- NOTE | 2022-04-30 13:37 | HO.PSYADMNOT ---
HPI Date of Service: 04/30/22 Chief Complaint: agitated depression, anxiety Sources of Information: patient interviewed, chart reviewed and crisis/core team assessment reviewed HPI Subjective Notes: Pollack Warning and Conditional Voluntary Healthcare Proxy: No Guardianship: No Medical Problems Affecting Mental Status: No Narrative: 71 yo female, reported history of Bipolar disorder, type 2; ZAC, ADHD presents with reports of symptom exacerbation in the context of several stressors. 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 The responsibility was greater than she expected, there were many more plants to manage than expected and she became overwhelmed. Simultaneously, her 36 yo son fractured his femur at the [facility], requiring rods, mesh and his return to the family home with pt and . He is healing very well, but she reports is irritable. Along with that pt and out patient psychiatrist decided to make some changes in her regime and tapered Olanzapine. I think it was the entire cluster of these issues that had effect. States the combination of the above made her feel out of control, with an increase in depressive and anxious sx. Her son's needs and the intensity of his personality over the past several weeks was too much for her. Past Psychiatric History: -Pt sees Dr. Shearer in OP setting -Remote hx of [facility] 12 yrs ago, recent admission at [facility] S1 08/2021. 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 She and her live in their home in [place]. Substance History: Cannabis ~2-3 times per week Diagnostics Vital Signs (24Hr): Vital Signs - 24 hr 04/29/22 17:25 04/29/22 19:01 04/29/22 20:57 Temperature 98.9 F 98.2 F Pulse Rate 82 85 83 Respiratory Rate 20 16 18 Blood Pressure 141/80 H 174/82 H 165/83 H Pulse Oximetry 95 95 98 Oxygen Delivery Method Room Air Room Air Room Air BMI result Body Mass Index 21.7 Labs Results: 04/29/22 12:18 05/05/22 07:00 Labs: Laboratory Results - last 48 hr 04/29/22 04/29/22 04/29/22 12:13 12:13 12:14 WBC RBC Hgb Hct MCV MCH MCHC RDW Plt Count MPV Immature Gran % (Auto) Neut % (Auto) Lymph % (Auto) [place] % (Auto) Eos % (Auto) Baso % (Auto) Lymph # (Auto) [place] # (Auto) Eos # (Auto) Baso # (Auto) Abs Immat Gran (auto) Absolute Neuts (auto) Absolute Nucleated RBC Nucleated RBC % (auto) Sodium Potassium Chloride Carbon Dioxide Anion Gap BUN Creatinine Estim Creat Clear Calc Estimated GFR Random Glucose Calcium Total Bilirubin AST ALT Alkaline Phosphatase Total Protein Albumin Urine Color YELLOW Urine Appearance CLEAR Urine pH 6.5 Ur Specific [place] <= 1.005 Urine Protein NEG Urine Glucose (UA) NEG Urine Ketones NEG Urine Blood NEG Urine Nitrite NEG Ur Leukocyte Esterase NEG Urine Opiates Screen Not Detected Urine Fentanyl Screen Not Detected Ur Barbiturates Screen Not Detected Ur Phencyclidine Scrn Not Detected Ur Amphetamines Screen Not Detected U Benzodiazepines Scrn POSITIVE H [place] Urine Cocaine Screen Not Detected U Marijuana (THC) Screen POSITIVE H COVID-19 (REE) Negative COVID-19 Clin Com See Note 04/29/22 04/29/22 04/29/22 12:18 12:18 12:18 WBC 13.0 H RBC 5.22 Hgb 15.5 Hct 48.3 H MCV 92.5 MCH 29.7 MCHC 32.1 RDW 13.1 Plt Count 362 MPV 10.0 Immature Gran % (Auto) 0.6 H Neut % (Auto) 86.8 H Lymph % (Auto) 5.4 L [place] % (Auto) 5.7 Eos % (Auto) 1.2 Baso % (Auto) 0.3 Lymph # (Auto) 0.7 L [place] # (Auto) 0.7 Eos # (Auto) 0.2 Baso # (Auto) 0.0 Abs Immat Gran (auto) 0.08 H Absolute Neuts (auto) 11.3 H Absolute Nucleated RBC 0.000 Nucleated RBC % (auto) 0.0 Sodium 141 Potassium 4.6 Chloride 107 Carbon Dioxide 25 Anion Gap 14 BUN 13 Creatinine 0.94 Estim Creat Clear Calc 40.8 Estimated GFR 59 Random Glucose 94 Calcium 10.2 Total Bilirubin 0.2 AST 20 ALT 30 Alkaline Phosphatase 128 H Total Protein 6.9 Albumin 4.3 Urine Color Urine Appearance Urine pH Ur Specific [place] Urine Protein Urine Glucose (UA) Urine Ketones Urine Blood Urine Nitrite Ur Leukocyte Esterase Urine Opiates Screen Urine Fentanyl Screen Ur Barbiturates Screen Ur Phencyclidine Scrn Ur Amphetamines Screen U Benzodiazepines Scrn [place] < 0.10 L Urine Cocaine Screen U Marijuana (THC) Screen COVID-19 (REE) COVID-19 Clin Com Meds/Allergies Meds Home Medications Medication Instructions Recorded Confirmed Type ascorbic acid (vitamin C) 2,000 mg 2,000 mg PO BEDTIME 09/09/21 04/29/22 History tablet,extended release calcium carbonate 600 mg calcium 1,200 mg PO BEDTIME 09/09/21 04/29/22 History (1,500 mg) tablet (Calcium) estradiol 10 mcg vaginal tablet 1 tab vaginal MOTH@1000 09/09/21 04/29/22 History (Yuvafem) menthol-herbal drugs lozenges 1 leonela mucous membrane Q2H 09/09/21 04/29/22 History (Ricola) bupropion HCl 100 mg tablet,12 hr 100 mg PO DAILY 04/17/22 04/29/22 History sustained-release dietary supplement 1 cap PO DAILY 04/17/22 04/29/22 History lamotrigine 100 mg tablet 100 mg PO BEDTIME 04/17/22 04/29/22 History (Lamictal) lithium carbonate 300 mg tablet 300 mg PO BEDTIME 04/17/22 04/29/22 History methylphenidate HCl 5 mg tablet 5 mg PO BID PRN focus 04/17/22 04/29/22 History Allergies Allergies Allergy/AdvReac Type Severity Reaction Status Date / Time No Known Allergies Allergy Verified 09/24/21 12:18 Mental Status Exam Mental Status Exam Patient Appearance: Appropriate Patient Orientation: Person, Place, Time and Situation Level of Consciousness: Alert Patient Behavior: Talkative, Cooperative, Anxious and Good Eye Contact Mood Description: Anxious Affect Description: Anxious Patient Cognition Impaired: No Ability to Follow Directions: Good Speech Pattern: Spontaneous Speech Memory Description: Intact Hallucinations: None Delusions: Not Present Thought Process: Distracted and Goal Oriented Thought Content: positive for Goal Oriented Depressive Symptoms: Increased Anxiety, Hopelessness, Unhappiness and Thoughts of /Suicide (denies) Abnormal Motor Activity Signs and Symptoms: Restlessness Judgement: Fair Assessment & Plan Assessment & Plan (1) Bipolar II disorder: Status: Acute Code(s): F31.81 - Bipolar II disorder (2) ZAC (generalized anxiety disorder): Status: Acute Code(s): F41.1 - Generalized anxiety disorder (3) ADHD (attention deficit hyperactivity disorder): Status: Acute Code(s): F90.9 - Attention-deficit hyperactivity disorder, unspecified type Plan 71 yo female, hx of bipolar II, ZAC, ADHD with several recent stressors precipitating sx exacerbation. Pt to be transferred to [facility] today. Olanzapine restarted Stimulant to be held. Patient educated on: medication risk/benefits and therapeutic strategies Informed Consent: understands and further education needed Reason for continued inpatient stay Substantial Risk for: inability to function and rapid decompensation
--- NOTE | 2022-04-30 16:49 | PC.ADMIT ---
Addendum entered by Amy Fraire RN 04/30/22 16:52: as she felt unsafe on . Original Note: Patient transferred to unit from at approximately 1500. Patient presented as pleasant and cooperative. Anxiety/depression were rated at 6-7/10. Patient declined prn Valium. Oriented to unit and shown to room. Observed in the tv area with other patients and states she is starting to relax a little bit as she felt [id number]
[2022-04-30 18:00] VITALS: BP 164/78; PULSE 74; RESP 14; TEMP 36.3; O2SAT 97
[2022-04-30] MEDS: Ascorbic Acid 500 MG TABLET 2000 MG PO (21:13)
[2022-04-30] MEDS: buPROPion HCL 100 MG TABLET 50 MG PO (21:15)
[2022-04-30] MEDS: lamoTRIgine 100 MG TABLET PO (21:18)
[2022-04-30] MEDS: Lithium Carbonate 300 MG CAPSULE PO (21:19)
[2022-04-30] MEDS: OLANZapine 5 MG TABLET PO (21:22)
[2022-05-01 07:00] VITALS: BMI 21.9
[2022-05-01 07:30] VITALS: BP 144/69; PULSE 71; RESP 14; TEMP 36.2; O2SAT 95
[2022-05-01] MEDS: amLODIPine Besylate 2.5 MG TABLET 7.5 MG PO (08:30)
[2022-05-01] MEDS: FLUoxetine HCl 20 MG CAPSULE 40 MG PO (08:31)
[2022-05-01] MEDS: guaiFENesin DM 600/30 1 TAB TAB.ER.12H PO ×2 (08:31→21:06)
[2022-05-01] MEDS: buPROPion HCL 100 MG TABLET 50 MG PO ×2 (08:31→21:05)
[2022-05-01] MEDS: cloNIDine HCL 0.1 MG TABLET PO ×2 (08:37→19:33)
[2022-05-01] MEDS: Milk of Magnesia 30 ML ORAL.SUSP PO (10:35)
[2022-05-01] MEDS: diazePAM 2 MG TABLET PO (12:42)
--- NOTE | 2022-05-01 15:13 | HO.PSYCHPN ---
Subjective Subjective Date of Service: 05/01/22 Reason For Visit: agitated depression, anxiety Subjective Notes: Conditional Voluntary Interim History: The nursing staff reported the patient has been pleasant and cooperative, fully compliant with her treatment. She took Valium last night as a p.r.n. and she slept well last night. On interview the patient reports that she has been overwhelmed several stressors but she is able to contract for safety in this facility. She was very anxious since her came to visit her and she did not feel supported by him. We discussed about treatment options and she agreed to continue on her medications. Mental Status Exam Mental Status Exam Patient Appearance: Well Grooomed Patient Orientation: Person and Situation Level of Consciousness: Awake Patient Behavior: Cooperative Mood Description: Labile Affect Description: Calm Patient Cognition Impaired: No Ability to Follow Directions: Good Speech Pattern: Clear Hallucinations: None Delusions: Not Present Thought Content: positive for Circumstantial and positive for Poverty of Content Judgement: Fair Diagnostics Vital Signs (24Hr): Vital Signs - 24 hr 04/30/22 18:00 05/01/22 07:30 Temperature 97.3 F 97.1 F Pulse Rate 74 71 Respiratory Rate 14 14 Blood Pressure 164/78 H 144/69 H Pulse Oximetry 97 95 Oxygen Delivery Method Room Air Room Air BMI result Body Mass Index 21.9 Labs Results: 04/29/22 12:18 04/29/22 12:18 Medications Medications Current Medications Acetaminophen (Acetaminophen 325 Mg Tablet) 650 mg PO Q6H PRN PRN Reason: Headache/Pain Mild Scale (1-3) Al Hydroxide/Mg Hydroxide (Magnesium Hydrox/Alum Hydrox 30 Ml Oral.Susp) 30 ml PO Q6H PRN PRN Reason: Heartburn/Nausea Amlodipine Besylate (Amlodipine Besylate 2.5 Mg Tablet) 7.5 mg PO DAILY NORBERTO; Protocol Last Admin: 05/01/22 08:30 Dose: 7.5 mg Ascorbic Acid (Ascorbic Acid 500 Mg Tablet) 2,000 mg PO BEDTIME [facility] Last Admin: 04/30/22 21:13 Dose: 2,000 mg Benzocaine (Throat Lozenge, Medicated Lozenge) 1 lozenge MUCOUS MEM Q2H PRN PRN Reason: Sore Throat Bupropion HCl (Bupropion Hcl 100 Mg Tablet) 50 mg PO BID [facility] Last Admin: 05/01/22 08:31 Dose: 50 mg Calcium Carbonate (Calcium Carbonate 500 Mg Tablet) 1,000 mg PO BEDTIME NORBERTO Last Admin: 04/30/22 21:20 Dose: 1,000 mg Clonidine HCl (Clonidine Hcl 0.1 Mg Tablet) 0.1 mg PO TID PRN; Protocol PRN Reason: anxiety, hyperarousal Last Admin: 05/01/22 08:37 Dose: 0.1 mg Diazepam (Diazepam 2 Mg Tablet) 2 mg PO BID PRN PRN Reason: Anxiety Last Admin: 05/01/22 12:42 Dose: 2 mg Fluoxetine HCl (Fluoxetine Hcl 20 Mg Capsule) 40 mg PO DAILY NORBERTO Last Admin: 05/01/22 08:31 Dose: 40 mg Guaifenesin/Dextromethorphan (Guaifenesin Dm 600/30 1 Tab Tab.Er.12h) 1 tab PO BID NORBERTO Last Admin: 05/01/22 08:31 Dose: 1 tab Lamotrigine (Lamotrigine 100 Mg Tablet) 100 mg PO BEDTIME NORBERTO Last Admin: 04/30/22 21:18 Dose: 100 mg [place] Carbonate ([place] Carbonate 300 Mg Capsule) 300 mg PO BEDTIME NORBERTO Last Admin: 04/30/22 21:19 Dose: 300 mg Magnesium Hydroxide (Milk Of Magnesia 30 Ml Oral.Susp) 30 ml PO DAILY PRN PRN Reason: Constipation Last Admin: 05/01/22 10:35 Dose: 30 ml Olanzapine (Olanzapine 5 Mg Tablet) 5 mg PO BEDTIME NORBERTO Last Admin: 04/30/22 21:22 Dose: 5 mg Allergies Allergies Allergy/AdvReac Type Severity Reaction Status Date / Time No Known Allergies Allergy Verified 09/24/21 12:18 Assessment & Plan Assessment & Plan (1) Bipolar II disorder: Status: Acute Code(s): F31.81 - Bipolar II disorder (2) ZAC (generalized anxiety disorder): Status: Acute Code(s): F41.1 - Generalized anxiety disorder (3) ADHD (attention deficit hyperactivity disorder): Status: Acute Code(s): F90.9 - Attention-deficit hyperactivity disorder, unspecified type Plan 71 yo female, hx of bipolar II, ZAC, ADHD with several recent stressors precipitating sx exacerbation. Pt to be transferred to [facility] today. Olanzapine restarted Stimulant to be held. I spent __20____ minutes with the patient and/or on the patient floor today, greater than?50% of which was spent counseling/coordinating care. Reason for contiued inpatient stay Substantial Risk for: inability to function, rapid decompensation and med/psych decompensation
[2022-05-01 18:00] VITALS: BP 153/71; PULSE 68; TEMP 36.3; O2SAT 97
[2022-05-01] MEDS: lamoTRIgine 100 MG TABLET PO (21:05)
[2022-05-01] MEDS: OLANZapine 5 MG TABLET PO (21:06)
[2022-05-01] MEDS: Lithium Carbonate 300 MG CAPSULE PO (21:08)
[2022-05-01] MEDS: Ascorbic Acid 500 MG TABLET 2000 MG PO (21:08)
[2022-05-02 06:00] VITALS: BP 141/71; RESP 17; TEMP 36.3; O2SAT 95
[2022-05-02] MEDS: guaiFENesin DM 600/30 1 TAB TAB.ER.12H PO ×2 (09:17→20:46)
[2022-05-02] MEDS: FLUoxetine HCl 20 MG CAPSULE 40 MG PO (09:17)
[2022-05-02] MEDS: amLODIPine Besylate 2.5 MG TABLET 7.5 MG PO (09:17)
[2022-05-02] MEDS: buPROPion HCL 100 MG TABLET 50 MG PO ×2 (09:17→20:45)
--- NOTE | 2022-05-02 13:20 | HO.PSYCHPN ---
Subjective Subjective Date of Service: 05/02/22 Reason For Visit: agitated depression, anxiety Subjective Notes: Conditional Voluntary Interim History: the nursing staff reported the patient has been compliant with treatment, anxious at times she took her p.r.n. Valium with some activity. On interview the patient denies psychotic symptoms but she reports that she is anxious and dysphoric, overwhelmed with stressors outside. She still upset with her and stated that there was no recent for her to be here. We will have a family meeting next week. Mental Status Exam Mental Status Exam Patient Appearance: Well Grooomed Patient Orientation: Person, Place and Situation Level of Consciousness: Awake Patient Behavior: Cooperative Mood Description: Constricted Affect Description: Labile Patient Cognition Impaired: No Ability to Follow Directions: Good Speech Pattern: Clear Hallucinations: None Delusions: Not Present Thought Process: Linear Thought Content: positive for [place] and positive for Circumstantial Judgement: Fair Diagnostics Vital Signs (24Hr): Vital Signs - 24 hr 05/01/22 18:00 05/02/22 06:00 Temperature 97.3 F 97.4 F Pulse Rate 68 Respiratory Rate 17 Blood Pressure 153/71 H 141/71 H Pulse Oximetry 97 95 Oxygen Delivery Method Room Air Room Air BMI result Body Mass Index 21.9 Labs Results: 04/29/22 12:18 04/29/22 12:18 Medications Medications Current Medications Acetaminophen (Acetaminophen 325 Mg Tablet) 650 mg PO Q6H PRN PRN Reason: Headache/Pain Mild Scale (1-3) Al Hydroxide/Mg Hydroxide (Magnesium Hydrox/Alum Hydrox 30 Ml Oral.Susp) 30 ml PO Q6H PRN PRN Reason: Heartburn/Nausea Amlodipine Besylate (Amlodipine Besylate 2.5 Mg Tablet) 7.5 mg PO DAILY [facility]; Protocol Last Admin: 05/02/22 09:17 Dose: 7.5 mg Ascorbic Acid (Ascorbic Acid 500 Mg Tablet) 2,000 mg PO BEDTIME [facility] Last Admin: 05/01/22 21:08 Dose: 2,000 mg Benzocaine (Throat Lozenge, Medicated Lozenge) 1 lozenge MUCOUS MEM Q2H PRN PRN Reason: Sore Throat Bupropion HCl (Bupropion Hcl 100 Mg Tablet) 50 mg PO BID [facility] Last Admin: 05/02/22 09:17 Dose: 50 mg Calcium Carbonate (Calcium Carbonate 500 Mg Tablet) 1,000 mg PO BEDTIME [facility] Last Admin: 05/01/22 21:08 Dose: 1,000 mg Clonidine HCl (Clonidine Hcl 0.1 Mg Tablet) 0.1 mg PO TID PRN; Protocol PRN Reason: anxiety, hyperarousal Last Admin: 05/01/22 19:33 Dose: 0.1 mg Diazepam (Diazepam 2 Mg Tablet) 2 mg PO BID PRN PRN Reason: Anxiety Last Admin: 05/01/22 12:42 Dose: 2 mg Fluoxetine HCl (Fluoxetine Hcl 20 Mg Capsule) 40 mg PO DAILY [facility] Last Admin: 05/02/22 09:17 Dose: 40 mg Guaifenesin/Dextromethorphan (Guaifenesin Dm 600/30 1 Tab Tab.Er.12h) 1 tab PO BID [facility] Last Admin: 05/02/22 09:17 Dose: 1 tab Lamotrigine (Lamotrigine 100 Mg Tablet) 100 mg PO BEDTIME [facility] Last Admin: 05/01/22 21:05 Dose: 100 mg [place] Carbonate ([place] Carbonate 300 Mg Capsule) 300 mg PO BEDTIME [facility] Last Admin: 05/01/22 21:08 Dose: 300 mg Magnesium Hydroxide (Milk Of Magnesia 30 Ml Oral.Susp) 30 ml PO DAILY PRN PRN Reason: Constipation Last Admin: 05/01/22 10:35 Dose: 30 ml Olanzapine (Olanzapine 5 Mg Tablet) 5 mg PO BEDTIME [facility] Last Admin: 05/01/22 21:06 Dose: 5 mg Allergies Allergies Allergy/AdvReac Type Severity Reaction Status Date / Time No Known Allergies Allergy Verified 09/24/21 12:18 Assessment & Plan Assessment & Plan (1) Bipolar II disorder: Status: Acute Code(s): F31.81 - Bipolar II disorder (2) ZAC (generalized anxiety disorder): Status: Acute Code(s): F41.1 - Generalized anxiety disorder (3) ADHD (attention deficit hyperactivity disorder): Status: Acute Code(s): F90.9 - Attention-deficit hyperactivity disorder, unspecified type Plan 71 yo female, hx of bipolar II, ZAC, ADHD with several recent stressors precipitating sx exacerbation. Pt to be transferred to [facility] today. Olanzapine restarted Stimulant to be held. Blood work for Thursday I spent ___20___ minutes with the patient and/or on the patient floor today, greater than?50% of which was spent counseling/coordinating care. Reason for contiued inpatient stay Substantial Risk for: inability to function, rapid decompensation and med/psych decompensation
[2022-05-02 18:00] VITALS: BP 148/73; PULSE 82; RESP 18; TEMP 37; O2SAT 96
[2022-05-02] MEDS: Ascorbic Acid 500 MG TABLET 2000 MG PO (20:44)
[2022-05-02] MEDS: lamoTRIgine 100 MG TABLET PO (20:47)
[2022-05-02] MEDS: Lithium Carbonate 300 MG CAPSULE PO (20:47)
[2022-05-02] MEDS: OLANZapine 5 MG TABLET PO (20:48)
[2022-05-02] MEDS: diazePAM 2 MG TABLET PO (23:32)
[2022-05-03 08:00] VITALS: BP 165/72; PULSE 82; RESP 16; TEMP 36.2; O2SAT 95
[2022-05-03] MEDS: buPROPion HCL 100 MG TABLET 50 MG PO ×2 (08:06→20:14)
[2022-05-03] MEDS: FLUoxetine HCl 20 MG CAPSULE 40 MG PO (08:06)
[2022-05-03] MEDS: guaiFENesin DM 600/30 1 TAB TAB.ER.12H PO ×2 (08:06→20:16)
[2022-05-03] MEDS: amLODIPine Besylate 2.5 MG TABLET 7.5 MG PO (08:07)
[2022-05-03 18:00] VITALS: BP 143/70; PULSE 69; RESP 18; TEMP 37.2; O2SAT 96
--- NOTE | 2022-05-03 18:02 | P.PNPSI_ITS ---
Subjective Subjective Date of Service: 05/03/22 Reason For Visit: agitated depression, anxiety Interim History: met with patient and discussed with Nursing. Overall reports that she was over exerting herself outside trying to do things for other people at the expense of her own well-being. Reports the tipping point was her son fracturing his femur and therefore having to live with her and the environment being claustrophobic emotionally due to his bipolar disorder. Reports not getting as much benefit from the hospital this time regarding mood and anxiety and coping skills and has therefore been spending more time in her room and reading. Would like the to be more groups and advocating for same. Denies medication concerns. Sleep okay. Energy and appetite okay. No SI. No psychosis Medication Compliance: Yes Side effects from medications: No Attending Groups: Yes Review of Systems Acute medical concerns: No Review of Systems Review of Systems unremarkable Mental Status Exam Mental Status Exam Narrative: pleasant. Engaged. Organized. No cognitive issues. Some depression and affect some irritability. No SI. No HI. No psychosis. Insight and judgment okay Diagnostics Vital Signs (24Hr): Vital Signs - 24 hr 05/03/22 08:00 Temperature 97.1 F Pulse Rate 82 Respiratory Rate 16 Blood Pressure 165/72 H Pulse Oximetry 95 Oxygen Delivery Method Room Air BMI result Body Mass Index 21.9 Labs Results: 04/29/22 12:18 04/29/22 12:18 Medications Medications Current Medications Acetaminophen (Acetaminophen 325 Mg Tablet) 650 mg PO Q6H PRN PRN Reason: Headache/Pain Mild Scale (1-3) Al Hydroxide/Mg Hydroxide (Magnesium Hydrox/Alum Hydrox 30 Ml Oral.Susp) 30 ml PO Q6H PRN PRN Reason: Heartburn/Nausea Amlodipine Besylate (Amlodipine Besylate 2.5 Mg Tablet) 7.5 mg PO DAILY [facility]; Protocol Last Admin: 05/03/22 08:07 Dose: 7.5 mg Ascorbic Acid (Ascorbic Acid 500 Mg Tablet) 2,000 mg PO BEDTIME [facility] Last Admin: 05/02/22 20:44 Dose: 2,000 mg Benzocaine (Throat Lozenge, Medicated Lozenge) 1 lozenge MUCOUS MEM Q2H PRN PRN Reason: Sore Throat Bupropion HCl (Bupropion Hcl 100 Mg Tablet) 50 mg PO BID [facility] Last Admin: 05/03/22 08:06 Dose: 50 mg Calcium Carbonate (Calcium Carbonate 500 Mg Tablet) 1,000 mg PO BEDTIME [facility] Last Admin: 05/02/22 20:46 Dose: 1,000 mg Clonidine HCl (Clonidine Hcl 0.1 Mg Tablet) 0.1 mg PO TID PRN; Protocol PRN Reason: anxiety, hyperarousal Last Admin: 05/01/22 19:33 Dose: 0.1 mg Diazepam (Diazepam 2 Mg Tablet) 2 mg PO BID PRN PRN Reason: Anxiety Last Admin: 05/02/22 23:32 Dose: 2 mg Fluoxetine HCl (Fluoxetine Hcl 20 Mg Capsule) 40 mg PO DAILY [facility] Last Admin: 05/03/22 08:06 Dose: 40 mg Guaifenesin/Dextromethorphan (Guaifenesin Dm 600/30 1 Tab Tab.Er.12h) 1 tab PO BID [facility] Last Admin: 05/03/22 08:06 Dose: 1 tab Lamotrigine (Lamotrigine 100 Mg Tablet) 100 mg PO BEDTIME [facility] Last Admin: 05/02/22 20:47 Dose: 100 mg [place] Carbonate ([place] Carbonate 300 Mg Capsule) 300 mg PO BEDTIME [facility] Last Admin: 05/02/22 20:47 Dose: 300 mg Magnesium Hydroxide (Milk Of Magnesia 30 Ml Oral.Susp) 30 ml PO DAILY PRN PRN Reason: Constipation Last Admin: 05/01/22 10:35 Dose: 30 ml Olanzapine (Olanzapine 5 Mg Tablet) 5 mg PO BEDTIME [facility] Last Admin: 05/02/22 20:48 Dose: 5 mg Allergies Allergies Allergy/AdvReac Type Severity Reaction Status Date / Time No Known Allergies Allergy Verified 09/24/21 12:18 Assessment & Plan Assessment & Plan (1) Bipolar II disorder: Status: Acute Code(s): F31.81 - Bipolar II disorder (2) ZAC (generalized anxiety disorder): Status: Acute Code(s): F41.1 - Generalized anxiety disorder (3) ADHD (attention deficit hyperactivity disorder): Status: Acute Code(s): F90.9 - Attention-deficit hyperactivity disorder, unspecified type Plan 71 yo female, hx of bipolar II, ZAC, ADHD with several recent stressors precipitating sx exacerbation. Pt to be transferred to [facility] today. Olanzapine restarted Stimulant to be held. Blood work for Thursday05/03/2022: No changes to treatment plan I spent minutes with the patient and/or on the patient floor today, greater than?50% of which was spent counseling/coordinating care. Reason for contiued inpatient stay Substantial Risk for: inability to function
[2022-05-03] MEDS: diazePAM 2 MG TABLET PO (19:38)
[2022-05-03] MEDS: Ascorbic Acid 500 MG TABLET 2000 MG PO (20:14)
[2022-05-03] MEDS: lamoTRIgine 100 MG TABLET PO (20:16)
[2022-05-03] MEDS: Lithium Carbonate 300 MG CAPSULE PO (20:17)
[2022-05-03] MEDS: OLANZapine 5 MG TABLET PO (20:17)
[2022-05-04 08:45] VITALS: BP 161/77; PULSE 82; RESP 16; TEMP 36.2; O2SAT 95
[2022-05-04] MEDS: amLODIPine Besylate 2.5 MG TABLET 7.5 MG PO (09:02)
[2022-05-04] MEDS: guaiFENesin DM 600/30 1 TAB TAB.ER.12H PO ×2 (09:02→21:02)
[2022-05-04] MEDS: FLUoxetine HCl 20 MG CAPSULE 40 MG PO (09:05)
[2022-05-04] MEDS: buPROPion HCL 100 MG TABLET 50 MG PO ×2 (09:05→20:56)
[2022-05-04] MEDS: cloNIDine HCL 0.1 MG TABLET PO (09:05)
--- NOTE | 2022-05-04 11:10 | HO.PSYCHPN ---
Subjective Subjective Date of Service: 05/04/22 Reason For Visit: agitated depression, anxiety Interim History: Patient seen and discussed with team. Patient evaluated today and upon interview she reports she feels less shaky, less depressed. However says she feels more isolated and dismayed as there are few people I can carry a conversation with. Her visited. Discussed PHP, OP therapy. Says her lithium is ultimately supposed to be titrated down and she was recently started on lamictal. Denies SE, no rash. Discusses situational stress. In the milieu, patient is safe and appropriate in behavior. Denies SI/SIB/HI upon inquiry. Denies irritability or assaultive ideation. Says she feels safe. Medication Compliance: Yes Side effects from medications: No Attending Groups: Yes Review of Systems Acute medical concerns: No Medical Review of Systems: unchanged Mental Status Exam Mental Status Exam Narrative: Patient Appearance: Well Groomed Patient Orientation: Person, Place and Situation Level of Consciousness: Awake Patient Behavior: Cooperative Mood Description: Constricted Affect Description: Labile Patient Cognition Impaired: No Ability to Follow Directions: Good Speech Pattern: Clear Hallucinations: None Delusions: Not Present Thought Process: Linear Thought Content: positive for [place] and positive for Circumstantial Judgment: Fair Diagnostics Vital Signs (24Hr): Vital Signs - 24 hr 05/03/22 18:00 05/04/22 08:45 Temperature 98.9 F 97.1 F Pulse Rate 69 82 Respiratory Rate 18 16 Blood Pressure 143/70 H 161/77 H Pulse Oximetry 96 95 Oxygen Delivery Method Room Air Room Air BMI result Body Mass Index 21.9 Labs Results: 04/29/22 12:18 05/05/22 07:00 Medications Medications Current Medications Acetaminophen (Acetaminophen 325 Mg Tablet) 650 mg PO Q6H PRN PRN Reason: Headache/Pain Mild Scale (1-3) Al Hydroxide/Mg Hydroxide (Magnesium Hydrox/Alum Hydrox 30 Ml Oral.Susp) 30 ml PO Q6H PRN PRN Reason: Heartburn/Nausea Amlodipine Besylate (Amlodipine Besylate 2.5 Mg Tablet) 7.5 mg PO DAILY [facility]O; Protocol Last Admin: 05/04/22 09:02 Dose: 7.5 mg Ascorbic Acid (Ascorbic Acid 500 Mg Tablet) 2,000 mg PO BEDTIME [facility] Last Admin: 05/03/22 20:14 Dose: 2,000 mg Benzocaine (Throat Lozenge, Medicated Lozenge) 1 lozenge MUCOUS MEM Q2H PRN PRN Reason: Sore Throat Bupropion HCl (Bupropion Hcl 100 Mg Tablet) 50 mg PO BID [facility] Last Admin: 05/04/22 09:05 Dose: 50 mg Calcium Carbonate (Calcium Carbonate 500 Mg Tablet) 1,000 mg PO BEDTIME [facility] Last Admin: 05/03/22 20:16 Dose: 1,000 mg Clonidine HCl (Clonidine Hcl 0.1 Mg Tablet) 0.1 mg PO TID PRN; Protocol PRN Reason: anxiety, hyperarousal Last Admin: 05/04/22 09:05 Dose: 0.1 mg Diazepam (Diazepam 2 Mg Tablet) 2 mg PO BID PRN PRN Reason: Anxiety Last Admin: 05/03/22 19:38 Dose: 2 mg Fluoxetine HCl (Fluoxetine Hcl 20 Mg Capsule) 40 mg PO DAILY [facility] Last Admin: 05/04/22 09:05 Dose: 40 mg Guaifenesin/Dextromethorphan (Guaifenesin Dm 600/30 1 Tab Tab.Er.12h) 1 tab PO BID [facility] Last Admin: 05/04/22 09:02 Dose: 1 tab Lamotrigine (Lamotrigine 100 Mg Tablet) 100 mg PO BEDTIME [facility] Last Admin: 05/03/22 20:16 Dose: 100 mg [place] Carbonate ([place] Carbonate 300 Mg Capsule) 300 mg PO BEDTIME [facility] Last Admin: 05/03/22 20:17 Dose: 300 mg Magnesium Hydroxide (Milk Of Magnesia 30 Ml Oral.Susp) 30 ml PO DAILY PRN PRN Reason: Constipation Last Admin: 05/01/22 10:35 Dose: 30 ml Olanzapine (Olanzapine 5 Mg Tablet) 5 mg PO BEDTIME [facility] Last Admin: 05/03/22 20:17 Dose: 5 mg Allergies Allergies Allergy/AdvReac Type Severity Reaction Status Date / Time No Known Allergies Allergy Verified 09/24/21 12:18 Assessment & Plan Assessment & Plan (1) Bipolar II disorder: Status: Acute Code(s): F31.81 - Bipolar II disorder (2) ZAC (generalized anxiety disorder): Status: Acute Code(s): F41.1 - Generalized anxiety disorder (3) ADHD (attention deficit hyperactivity disorder): Status: Acute Code(s): F90.9 - Attention-deficit hyperactivity disorder, unspecified type Plan 71 yo female, hx of bipolar II, ZAC, ADHD with several recent stressors precipitating sx exacerbation. Pt to be transferred to [facility] today. Olanzapine restarted Stimulant to be held. Blood work for Thursday05/03/2022: No changes to treatment plan 05/04/2022: No changes I spent minutes with the patient and/or on the patient floor today, greater than?50% of which was spent counseling/coordinating care. Patient educated on: medication risk/benefits and therapeutic strategies Reason for contiued inpatient stay Substantial Risk for: rapid decompensation and med/psych decompensation
[2022-05-04 18:00] VITALS: BP 154/72; PULSE 60; RESP 16; TEMP 36.9; O2SAT 97
[2022-05-04] MEDS: diazePAM 2 MG TABLET PO (19:56)
[2022-05-04] MEDS: Ascorbic Acid 500 MG TABLET 2000 MG PO (20:58)
[2022-05-04] MEDS: OLANZapine 5 MG TABLET PO (20:58)
[2022-05-04] MEDS: lamoTRIgine 100 MG TABLET PO (21:01)
[2022-05-04] MEDS: Lithium Carbonate 300 MG CAPSULE PO (21:03)
[2022-05-05 06:00] VITALS: BP 151/77; PULSE 74; RESP 17; TEMP 36.4; O2SAT 96
[2022-05-05 07:54] LABS: Anion Gap 9 (12-20); Blood Urea Nitrogen 17 mg/dL (9-16); Carbon Dioxide 28 mmol/L (22-29); Chloride 110 mmol/L (96-108); Cholesterol 176 mg/dL; Creatinine Clr Calc Pharmacy 37.2; Estimated Glomerular Filt Rate 53; Glucose Random 94 mg/dL (60-115); HDL Cholesterol 52 mg/dL; LDL Cholesterol Calculated 96 mg/dl; Potassium 5.2 mmol/L (3.3-5.1); Sodium 142 mmol/L (135-145); Triglycerides 144 mg/dL
[2022-05-05 07:58] LABS: Thyroid Stimulating Hormone 0.29 uIU/mL (0.32-4.0)
[2022-05-05 08:22] LABS: Estimated Average Glucose 105 mg/dL; Hemoglobin A1c % 5.3 %
[2022-05-05] MEDS: amLODIPine Besylate 2.5 MG TABLET 7.5 MG PO (08:43)
[2022-05-05] MEDS: guaiFENesin DM 600/30 1 TAB TAB.ER.12H PO ×2 (08:44→21:20)
[2022-05-05] MEDS: FLUoxetine HCl 20 MG CAPSULE 40 MG PO (08:44)
[2022-05-05] MEDS: buPROPion HCL 100 MG TABLET 50 MG PO ×2 (08:44→21:19)
--- NOTE | 2022-05-05 09:11 | PC.NURSE ---
Lab called to advise that pt's lithium drawn on 04-29 was never run and mistakenly (due to system error) auto entered as a low level. CC Lela advised of situation.
[2022-05-05] MEDS: diazePAM 2 MG TABLET PO (17:32)
[2022-05-05 18:00] VITALS: BP 151/86; PULSE 73; RESP 18; TEMP 37; O2SAT 95
[2022-05-05] MEDS: Ascorbic Acid 500 MG TABLET 2000 MG PO (21:19)
[2022-05-05] MEDS: lamoTRIgine 100 MG TABLET PO (21:21)
[2022-05-05] MEDS: OLANZapine 7.5 MG TABLET PO (21:21)
[2022-05-05] MEDS: Lithium Carbonate 300 MG CAPSULE PO (21:21)
--- NOTE | 2022-05-05 22:40 | P.PNPSI_ITS ---
Subjective Subjective Date of Service: 05/05/22 Reason For Visit: agitated depression, anxiety Subjective Notes: Conditional Voluntary Guardianship: No Interim History: pt depressed anxious agitated Mental Status Exam Mental Status Exam Patient Orientation: Person, Place, Time and Situation Patient Behavior: Anxious Mood Description: Anxious, Labile, Sad, Nervous and Apprehensive Affect Description: Depressed, Labile, Nervous and Apprehensive Delusions: Not Present Thought Process: Racing and Rumination Depressive Symptoms: Increased Anxiety, Insomnia, Crying Spells, Hopelessness and Difficulty Concentrating Judgement: Fair Diagnostics Vital Signs (24Hr): Vital Signs - 24 hr 05/05/22 06:00 05/05/22 18:00 Temperature 97.6 F 98.6 F Pulse Rate 74 73 Respiratory Rate 17 18 Blood Pressure 151/77 H 151/86 H Pulse Oximetry 96 95 Oxygen Delivery Method Room Air Room Air BMI result Body Mass Index 21.9 Labs Results: 04/29/22 12:18 05/05/22 07:00 Labs: Laboratory Results - last 48 hr 04/29/22 05/05/22 05/05/22 12:18 07:00 07:00 Sodium 142 Potassium 5.2 H Chloride 110 H Carbon Dioxide 28 Anion Gap 9 L BUN 17 H Creatinine 1.03 Estim Creat Clear Calc 37.2 Estimated GFR 53 Random Glucose 94 Estimat Average Glucose 105 Hemoglobin A1c % 5.3 Calcium 10.0 Triglycerides 144 Cholesterol 176 LDL Cholesterol, Calc 96 HDL Cholesterol 52 TSH 0.29 L [place] TNP Medications Medications Current Medications Acetaminophen (Acetaminophen 325 Mg Tablet) 650 mg PO Q6H PRN PRN Reason: Headache/Pain Mild Scale (1-3) Al Hydroxide/Mg Hydroxide (Magnesium Hydrox/Alum Hydrox 30 Ml Oral.Susp) 30 ml PO Q6H PRN PRN Reason: Heartburn/Nausea Amlodipine Besylate (Amlodipine Besylate 2.5 Mg Tablet) 7.5 mg PO DAILY [facility]; Protocol Last Admin: 05/05/22 08:43 Dose: 7.5 mg Ascorbic Acid (Ascorbic Acid 500 Mg Tablet) 2,000 mg PO BEDTIME [facility] Last Admin: 05/05/22 21:19 Dose: 2,000 mg Benzocaine (Throat Lozenge, Medicated Lozenge) 1 lozenge MUCOUS MEM Q2H PRN PRN Reason: Sore Throat Bupropion HCl (Bupropion Hcl 100 Mg Tablet) 50 mg PO BID [facility] Last Admin: 05/05/22 21:19 Dose: 50 mg Calcium Carbonate (Calcium Carbonate 500 Mg Tablet) 1,000 mg PO BEDTIME [facility] Last Admin: 05/05/22 21:20 Dose: 1,000 mg Clonidine HCl (Clonidine Hcl 0.1 Mg Tablet) 0.1 mg PO TID PRN; Protocol PRN Reason: anxiety, hyperarousal Last Admin: 05/04/22 09:05 Dose: 0.1 mg Diazepam (Diazepam 2 Mg Tablet) 2 mg PO BID PRN PRN Reason: Anxiety Last Admin: 05/05/22 17:32 Dose: 2 mg Fluoxetine HCl (Fluoxetine Hcl 20 Mg Capsule) 40 mg PO DAILY [facility] Last Admin: 05/05/22 08:44 Dose: 40 mg Guaifenesin/Dextromethorphan (Guaifenesin Dm 600/30 1 Tab Tab.Er.12h) 1 tab PO BID [facility] Last Admin: 05/05/22 21:20 Dose: 1 tab Lamotrigine (Lamotrigine 25 Mg Tablet) 150 mg PO BEDTIME [facility]ERTO [place] Carbonate ([place] Carbonate 300 Mg Capsule) 450 mg PO BEDTIME [facility]ERTO [place] Carbonate ([place] Carbonate 300 Mg Tablet) 150 mg PO ONCE ONE Stop: 05/05/22 22:35 Magnesium Hydroxide (Milk Of Magnesia 30 Ml Oral.Susp) 30 ml PO DAILY PRN PRN Reason: Constipation Last Admin: 05/01/22 10:35 Dose: 30 ml Olanzapine (Olanzapine 2.5 Mg Tablet) 2.5 mg PO Q6H PRN PRN Reason: anxiety/restlessness Olanzapine (Olanzapine 7.5 Mg Tablet) 7.5 mg PO BEDTIME [facility] Last Admin: 05/05/22 21:21 Dose: 7.5 mg Allergies Allergies Allergy/AdvReac Type Severity Reaction Status Date / Time No Known Allergies Allergy Verified 09/24/21 12:18 Assessment & Plan Assessment & Plan (1) Bipolar II disorder: Status: Acute Code(s): F31.81 - Bipolar II disorder (2) ADHD (attention deficit hyperactivity disorder): Status: Acute Code(s): F90.9 - Attention-deficit hyperactivity disorder, unspecified type (3) ZAC (generalized anxiety disorder): Status: Acute Code(s): F41.1 - Generalized anxiety disorder Plan Miriam is a 71 y.o. Female who carries a dx of ZAC, Bipolar II DO, and ADHD. She presented to [facility] on 04/29/22 due to worsening depression and anxiety x 3- 4 weeks, agitated mood, and feeling out of control.? 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 Recent CARE team eval at [facility] on 04/17/22 for similar presentation but dispo was to follow up with OP providers. Pt reports she has been adherent with her medications, sees Dr. Shearer in the OP setting. However, Li level <0.10 on admission. Utox positive for benzodiazepines, cannabis. Denies alcohol abuse. Patient agitated with racing thoughts depressed hopeless helpless overwhelmed that she is not feeling better. Triggered by the hospital yet be a full she is not stable to tolerate being at home low lithium level was reportedly a false negative check lithium level in Lamictal level in the morning increase olanzapine agitated depression needs much reassurance and support recheck potassium Obtain collateral contact info?as needed I spent minutes with the patient and/or on the patient floor today, greater than?50% of which was spent counseling/coordinating care. Patient educated on: diagnosis, medication risk/benefits and therapeutic strategies Reason for contiued inpatient stay Substantial Risk for: inability to function and rapid decompensation
[2022-05-05] MEDS: Lithium Carbonate 300 MG TABLET 150 MG PO (23:17)
[2022-05-06 07:34] LABS: Lithium 0.66 mmol/L (0.60-1.20)
[2022-05-06 07:35] LABS: Potassium 4.6 mmol/L (3.3-5.1)
[2022-05-06 08:00] VITALS: BP 149/65; PULSE 79; RESP 18; TEMP 37; O2SAT 96
[2022-05-06] MEDS: FLUoxetine HCl 20 MG CAPSULE 40 MG PO (08:02)
[2022-05-06] MEDS: amLODIPine Besylate 2.5 MG TABLET 7.5 MG PO (08:04)
[2022-05-06] MEDS: buPROPion HCL 100 MG TABLET 50 MG PO ×2 (08:05→21:28)
[2022-05-06] MEDS: guaiFENesin DM 600/30 1 TAB TAB.ER.12H PO ×2 (08:06→21:25)
--- NOTE | 2022-05-06 17:35 | HO.PSYCHPN ---
Subjective Subjective Date of Service: 05/06/22 Reason For Visit: agitated depression, anxiety Subjective Notes: Conditional Voluntary Guardianship: No Medication Compliance: Yes Attending Groups: Yes Review of Systems Medical Review of Systems: unchanged Mental Status Exam Mental Status Exam Patient Appearance: Well Grooomed Patient Orientation: Person, Place, Time and Situation Patient Behavior: Appropriate and Anxious Behavior Comments: Resting tremors noted Mood Description: Anxious, Labile, Sad, Nervous and Apprehensive Affect Description: Depressed, Labile, Nervous and Apprehensive Delusions: Not Present Thought Process: Racing and Rumination Depressive Symptoms: Increased Anxiety, Insomnia, Crying Spells, Hopelessness and Difficulty Concentrating Judgement: Fair Diagnostics Vital Signs (24Hr): Vital Signs - 24 hr 05/05/22 18:00 05/06/22 08:00 Temperature 98.6 F 98.6 F Pulse Rate 73 79 Respiratory Rate 18 18 Blood Pressure 151/86 H 149/65 H Pulse Oximetry 95 96 Oxygen Delivery Method Room Air Room Air BMI result Body Mass Index 21.9 Labs Results: 04/29/22 12:18 05/06/22 07:12 Labs: Laboratory Results - last 48 hr 04/29/22 05/05/22 05/05/22 12:18 07:00 07:00 Sodium 142 Potassium 5.2 H Chloride 110 H Carbon Dioxide 28 Anion Gap 9 L BUN 17 H Creatinine 1.03 Estim Creat Clear Calc 37.2 Estimated GFR 53 Random Glucose 94 Estimat Average Glucose 105 Hemoglobin A1c % 5.3 Calcium 10.0 Triglycerides 144 Cholesterol 176 LDL Cholesterol, Calc 96 HDL Cholesterol 52 TSH 0.29 L [place] TNP 05/06/22 05/06/22 07:12 07:12 Sodium Potassium 4.6 Chloride Carbon Dioxide Anion Gap BUN Creatinine Estim Creat Clear Calc Estimated GFR Random Glucose Estimat Average Glucose Hemoglobin A1c % Calcium Triglycerides Cholesterol LDL Cholesterol, Calc HDL Cholesterol TSH [place] 0.66 Medications Medications Current Medications Acetaminophen (Acetaminophen 325 Mg Tablet) 650 mg PO Q6H PRN PRN Reason: Headache/Pain Mild Scale (1-3) Al Hydroxide/Mg Hydroxide (Magnesium Hydrox/Alum Hydrox 30 Ml Oral.Susp) 30 ml PO Q6H PRN PRN Reason: Heartburn/Nausea Amlodipine Besylate (Amlodipine Besylate 2.5 Mg Tablet) 7.5 mg PO DAILY NORBERTO; Protocol Last Admin: 05/06/22 08:04 Dose: 7.5 mg Ascorbic Acid (Ascorbic Acid 500 Mg Tablet) 2,000 mg PO BEDTIME NORBERTO Last Admin: 05/05/22 21:19 Dose: 2,000 mg Benzocaine (Throat Lozenge, Medicated Lozenge) 1 lozenge MUCOUS MEM Q2H PRN PRN Reason: Sore Throat Bupropion HCl (Bupropion Hcl 100 Mg Tablet) 50 mg PO BID REPLACED BY [facility] Last Admin: 05/06/22 08:05 Dose: 50 mg Calcium Carbonate (Calcium Carbonate 500 Mg Tablet) 1,000 mg PO BEDTIME NORBERTO Last Admin: 05/05/22 21:20 Dose: 1,000 mg Clonidine HCl (Clonidine Hcl 0.1 Mg Tablet) 0.1 mg PO TID PRN; Protocol PRN Reason: anxiety, hyperarousal Last Admin: 05/04/22 09:05 Dose: 0.1 mg Fluoxetine HCl (Fluoxetine Hcl 20 Mg Capsule) 40 mg PO DAILY REPLACED BY [facility] Last Admin: 05/06/22 08:02 Dose: 40 mg Guaifenesin/Dextromethorphan (Guaifenesin Dm 600/30 1 Tab Tab.Er.12h) 1 tab PO BID REPLACED BY [facility] Last Admin: 05/06/22 08:06 Dose: 1 tab Lamotrigine (Lamotrigine 100 Mg Tablet) 150 mg PO BEDTIME NORBERTO [place] Carbonate ([place] Carbonate 300 Mg Tablet) 450 mg PO BEDTIME NORBERTO Magnesium Hydroxide (Milk Of Magnesia 30 Ml Oral.Susp) 30 ml PO DAILY PRN PRN Reason: Constipation Last Admin: 05/01/22 10:35 Dose: 30 ml Olanzapine (Olanzapine 2.5 Mg Tablet) 2.5 mg PO Q6H PRN PRN Reason: anxiety/restlessness Olanzapine (Olanzapine 7.5 Mg Tablet) 7.5 mg PO BEDTIME REPLACED BY [facility] Last Admin: 05/05/22 21:21 Dose: 7.5 mg Allergies Allergies Allergy/AdvReac Type Severity Reaction Status Date / Time No Known Allergies Allergy Verified 09/24/21 12:18 Assessment & Plan Assessment & Plan (1) Bipolar II disorder: Status: Acute Code(s): F31.81 - Bipolar II disorder (2) ZAC (generalized anxiety disorder): Status: Acute Code(s): F41.1 - Generalized anxiety disorder (3) ADHD (attention deficit hyperactivity disorder): Status: Acute Code(s): F90.9 - Attention-deficit hyperactivity disorder, unspecified type Plan Patient seen with her current treatment plan diagnosis reviewed. Patient anxious depression responded previously to lithium and olanzapine. Olanzapine increased to 7.5 bedtime 2.5 p.r.n. monitor blood sugar. [place] increased to 450 mg at bedtime patient does have some degree of renal dysfunction we had been tapering off on lithium and trying to replace with Lamictal. Given patient's current agitated depression will temporarily increase lithium back to 450 mg lithium level today 0.66 increase lamotrigine to 150 mg consider Trileptal. Patient needs much reassurance and support overwhelmed with anxiety hopelessness helplessness needs much help with perspective and reassurance. Step down to partial hospital when more stable I spent minutes with the patient and/or on the patient floor today, greater than?50% of which was spent counseling/coordinating care. Reason for contiued inpatient stay Substantial Risk for: inability to function and rapid decompensation
[2022-05-06] MEDS: Ascorbic Acid 500 MG TABLET 2000 MG PO (21:25)
[2022-05-06] MEDS: OLANZapine 7.5 MG TABLET PO (21:25)
[2022-05-06] MEDS: Lithium Carbonate 300 MG TABLET 450 MG PO (21:26)
[2022-05-06] MEDS: lamoTRIgine 100 MG TABLET 150 MG PO (21:28)
[2022-05-06 21:41] VITALS: BP 142/78; PULSE 69; RESP 18; TEMP 36.2; O2SAT 98
[2022-05-07 07:30] VITALS: BP 182/84; PULSE 73; RESP 16; TEMP 36.8; O2SAT 96
[2022-05-07] MEDS: FLUoxetine HCl 20 MG CAPSULE 40 MG PO (08:38)
[2022-05-07] MEDS: amLODIPine Besylate 2.5 MG TABLET 7.5 MG PO (08:38)
[2022-05-07] MEDS: buPROPion HCL 100 MG TABLET 50 MG PO ×2 (08:39→20:38)
[2022-05-07] MEDS: guaiFENesin DM 600/30 1 TAB TAB.ER.12H PO ×2 (08:44→20:39)
[2022-05-07] MEDS: Acetaminophen 325 MG TABLET 650 MG PO (11:05)
[2022-05-07] MEDS: LORazepam 0.5 MG TABLET PO (15:34)
[2022-05-07 18:00] VITALS: BP 148/74; PULSE 71; RESP 14; TEMP 36.2; O2SAT 94
[2022-05-07] MEDS: Ascorbic Acid 500 MG TABLET 2000 MG PO (20:37)
[2022-05-07] MEDS: lamoTRIgine 100 MG TABLET 150 MG PO (20:39)
[2022-05-07] MEDS: Lithium Carbonate 300 MG TABLET 450 MG PO (20:40)
[2022-05-07] MEDS: OLANZapine 7.5 MG TABLET PO (20:42)
--- NOTE | 2022-05-07 23:21 | HO.PSYCHPN ---
Subjective Subjective Date of Service: 05/07/22 Reason For Visit: agitated depression, anxiety Subjective Notes: Conditional Voluntary Interim History: Patient less agitated less depressed with increase lithium and olanzapine. Somewhat better able to put things in perspective reviewed long-term issues with medication patient states she is feeling safe for discharge xin Mental Status Exam Mental Status Exam Patient Appearance: Well Grooomed Patient Orientation: Person, Place, Time and Situation Patient Behavior: Appropriate Behavior Comments: Resting tremors noted Mood Description: Anxious and Blunted Affect Description: Labile, Nervous and Apprehensive Speech Pattern: Clear Hallucinations: None Delusions: Not Present Thought Process: Racing and Rumination Depressive Symptoms: Increased Anxiety, Insomnia, Crying Spells, Hopelessness and Difficulty Concentrating Judgement: Good Diagnostics Vital Signs (24Hr): Vital Signs - 24 hr 05/07/22 07:30 05/07/22 18:00 Temperature 98.2 F 97.1 F Pulse Rate 73 71 Respiratory Rate 16 14 Blood Pressure 182/84 H 148/74 H Pulse Oximetry 96 94 Oxygen Delivery Method Room Air Room Air BMI result Body Mass Index 21.9 Labs Results: 04/29/22 12:18 05/06/22 07:12 Labs: Laboratory Results - last 48 hr 05/06/22 05/06/22 07:12 07:12 Potassium 4.6 [place] 0.66 Medications Medications Current Medications Acetaminophen (Acetaminophen 325 Mg Tablet) 650 mg PO Q6H PRN PRN Reason: Headache/Pain Mild Scale (1-3) Last Admin: 05/07/22 11:05 Dose: 650 mg Al Hydroxide/Mg Hydroxide (Magnesium Hydrox/Alum Hydrox 30 Ml Oral.Susp) 30 ml PO Q6H PRN PRN Reason: Heartburn/Nausea Amlodipine Besylate (Amlodipine Besylate 2.5 Mg Tablet) 7.5 mg PO DAILY NORBERTO; Protocol Last Admin: 05/07/22 08:38 Dose: 7.5 mg Ascorbic Acid (Ascorbic Acid 500 Mg Tablet) 2,000 mg PO BEDTIME [facility] Last Admin: 05/07/22 20:37 Dose: 2,000 mg Benzocaine (Throat Lozenge, Medicated Lozenge) 1 lozenge MUCOUS MEM Q2H PRN PRN Reason: Sore Throat Bupropion HCl (Bupropion Hcl 100 Mg Tablet) 50 mg PO BID [facility] Last Admin: 05/07/22 20:38 Dose: 50 mg Calcium Carbonate (Calcium Carbonate 500 Mg Tablet) 1,000 mg PO BEDTIME ONRBERTO Last Admin: 05/07/22 20:38 Dose: 1,000 mg Clonidine HCl (Clonidine Hcl 0.1 Mg Tablet) 0.1 mg PO TID PRN; Protocol PRN Reason: anxiety, hyperarousal Last Admin: 05/04/22 09:05 Dose: 0.1 mg Fluoxetine HCl (Fluoxetine Hcl 20 Mg Capsule) 40 mg PO DAILY [facility] Last Admin: 05/07/22 08:38 Dose: 40 mg Guaifenesin/Dextromethorphan (Guaifenesin Dm 600/30 1 Tab Tab.Er.12h) 1 tab PO BID NORBERTO Last Admin: 05/07/22 20:39 Dose: 1 tab Lamotrigine (Lamotrigine 100 Mg Tablet) 150 mg PO BEDTIME NORBERTO Last Admin: 05/07/22 20:39 Dose: 150 mg [place] Carbonate ([place] Carbonate 300 Mg Tablet) 450 mg PO BEDTIME NORBERTO Last Admin: 05/07/22 20:40 Dose: 450 mg Lorazepam (Lorazepam 0.5 Mg Tablet) 0.5 mg PO Q6H PRN PRN Reason: anxiety/restlessness Last Admin: 05/07/22 15:34 Dose: 0.5 mg Magnesium Hydroxide (Milk Of Magnesia 30 Ml Oral.Susp) 30 ml PO DAILY PRN PRN Reason: Constipation Last Admin: 05/01/22 10:35 Dose: 30 ml Olanzapine (Olanzapine 2.5 Mg Tablet) 2.5 mg PO Q6H PRN PRN Reason: anxiety/restlessness Olanzapine (Olanzapine 7.5 Mg Tablet) 7.5 mg PO BEDTIME [facility] Last Admin: 05/07/22 20:42 Dose: 7.5 mg Allergies Allergies Allergy/AdvReac Type Severity Reaction Status Date / Time No Known Allergies Allergy Verified 09/24/21 12:18 Assessment & Plan Assessment & Plan (1) Bipolar II disorder: Status: Acute Code(s): F31.81 - Bipolar II disorder (2) ZAC (generalized anxiety disorder): Status: Acute Code(s): F41.1 - Generalized anxiety disorder (3) ADHD (attention deficit hyperactivity disorder): Status: Acute Code(s): F90.9 - Attention-deficit hyperactivity disorder, unspecified type Plan The patient appears to be improving from the acute mixed agitated depressive state. Temporarily on increase lithium and olanzapine patient will continue to see Nephrology on an outpatient basis. Lamictal increased to 150 mg Valium changed to Ativan seems safe for discharge tomorrow referral to PHP Discussed therapeutic strategies to deal with stressors prior to returning home lithium electrolytes for the morning I spent minutes with the patient and/or on the patient floor today, greater than?50% of which was spent counseling/coordinating care. Patient educated on: medication risk/benefits and therapeutic strategies Reason for contiued inpatient stay Substantial Risk for: inability to function and rapid decompensation
[2022-05-08] MEDS: buPROPion HCL 100 MG TABLET 50 MG PO (08:24)
[2022-05-08] MEDS: amLODIPine Besylate 2.5 MG TABLET 7.5 MG PO (08:24)
[2022-05-08] MEDS: FLUoxetine HCl 20 MG CAPSULE 40 MG PO (08:24)
[2022-05-08] MEDS: guaiFENesin DM 600/30 1 TAB TAB.ER.12H PO (08:24)
[2022-05-08 08:46] LABS: Lithium 0.67 mmol/L (0.60-1.20)
[2022-05-08 08:47] LABS: Anion Gap 13 (12-20); Carbon Dioxide 28 mmol/L (22-29); Chloride 105 mmol/L (96-108); Potassium 4.5 mmol/L (3.3-5.1); Sodium 141 mmol/L (135-145)
--- NOTE | 2022-05-08 22:36 | P.DS_ITS ---
DS: Providers Provider Date of Service: 05/08/22 Date of admission: 04/29/22 18:36 Date of discharge: 05/08/22 Primary care physician: Tami Francis MD Admitting clinician: Aileen Villareal Attending physician on discharge: Yovany Shearer DS: Diagnosis Discharge Diagnosis (1) Bipolar II disorder: Status: Acute (2) ZAC (generalized anxiety disorder): Status: Acute (3) ADHD (attention deficit hyperactivity disorder): Status: Acute DS: Medications Discharge Medications Home Medications: Home Medications Medication Instructions Recorded Confirmed ascorbic acid (vitamin C) 2,000 mg 2,000 mg PO BEDTIME 09/09/21 04/29/22 tablet,extended release calcium carbonate 600 mg calcium 1,200 mg PO BEDTIME 09/09/21 04/29/22 (1,500 mg) tablet (Calcium) estradiol 10 mcg vaginal tablet 1 tab vaginal MOTH@1000 09/09/21 04/29/22 (Yuvafem) menthol-herbal drugs lozenges 1 leonela mucous membrane Q2H 09/09/21 04/29/22 (Ricola) bupropion HCl 100 mg tablet,12 hr 100 mg PO DAILY 04/17/22 04/29/22 sustained-release dietary supplement 1 cap PO DAILY 04/17/22 04/29/22 methylphenidate HCl 5 mg tablet 5 mg PO BID PRN focus 04/17/22 04/29/22 Previous Rx's Medication Instructions Recorded amlodipine 2.5 mg tablet 7.5 mg PO DAILY 30 days #90 tabs 09/19/21 fluoxetine 40 mg capsule 40 mg PO DAILY 30 days #30 caps 09/19/21 lamotrigine 100 mg tablet 150 mg PO BEDTIME 30 days #45 tabs 05/08/22 lithium carbonate 300 mg tablet 450 mg PO BEDTIME 30 days #45 tabs 05/08/22 lorazepam 0.5 mg tablet 0.5 mg PO Q6H PRN 05/08/22 Anxiety/Restlessness 30 days #60 tabs olanzapine 5 mg tablet 2.5 mg PO BID PRN Anxiety 30 days 05/08/22 #30 tabs olanzapine 7.5 mg tablet 7.5 mg PO BEDTIME 30 days #30 tabs 05/08/22 Mental Status Exam Mental Status Exam Patient Appearance: Well Grooomed Patient Orientation: Person, Place, Time and Situation Patient Behavior: Appropriate Behavior Comments: Resting tremors noted Mood Description: Anxious and Blunted Affect Description: Apprehensive Speech Pattern: Clear Memory Description: Intact Hallucinations: None Delusions: Not Present Thought Process: Rumination Depressive Symptoms: Increased Anxiety and Difficulty Concentrating Judgement: Good Judgement and Insight: Improved concentration and judgment much less emotionally labile Data Data Completed and Pending Completed studies during hospitalization [Text1]: 04/29/22 05/05/22 05/05/22 12:18 07:00 07:00 Sodium 142 Potassium 5.2 H Chloride 110 H Carbon Dioxide 28 Anion Gap 9 L BUN 17 H Creatinine 1.03 Estim Creat Clear Calc 37.2 Estimated GFR 53 Random Glucose 94 Estimat Average Glucose 105 Hemoglobin A1c % 5.3 Calcium 10.0 Triglycerides 144 Cholesterol 176 LDL Cholesterol, Calc 96 HDL Cholesterol 52 TSH 0.29 L Lamotrigine [place] TNP 05/06/22 05/06/22 05/06/22 07:12 07:12 07:12 Sodium Potassium 4.6 Chloride Carbon Dioxide Anion Gap BUN Creatinine Estim Creat Clear Calc Estimated GFR Random Glucose Estimat Average Glucose Hemoglobin A1c % Calcium Triglycerides Cholesterol LDL Cholesterol, Calc HDL Cholesterol TSH Lamotrigine Pending [place] 0.66 05/08/22 05/08/22 07:57 07:57 Sodium 141 Potassium 4.5 Chloride 105 Carbon Dioxide 28 Anion Gap 13 BUN Creatinine Estim Creat Clear Calc Estimated GFR Random Glucose Estimat Average Glucose Hemoglobin A1c % Calcium Triglycerides Cholesterol LDL Cholesterol, Calc HDL Cholesterol TSH Lamotrigine [place] 0.67 DS: Summary Hospital Course Hospital Course: [place] [address] Psychiatry Admission Note (In)Signed Patient: Sheba Valencia#: [id number]: 9Acct:[id number]/Sex: 71 / FLoc:[id number]: Yovany Shearer MD cc: ~ HPI Date of Service: 04/29/22 Chief Complaint: agitated depression, anxiety Sources of Information: patient interviewed, chart reviewed and crisis/core team assessment reviewed HPI Subjective Notes: [place] Warning and Conditional Voluntary Healthcare Proxy: No Guardianship: No Medical Problems Affecting Mental Status: No Narrative: Miriam is a 71 y.o. Female who carries a dx of ZAC, Bipolar II DO, and ADHD. She presented to [facility] on 04/29/22 due to worsening depression and anxiety x 3- 4 weeks, agitated mood, and feeling out of control.? 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 Recent CARE team eval at [facility] on 04/17/22 for similar present ation but dispo was to follow up with OP providers. Pt reports she has been adherent with her medications, sees Dr. Shearer in the OP setting. However, Li level <0.10 on admission. Utox positive for benzodiazepines, cannabis. Denies alcohol abuse. I evaluated the pt this evening and upon interview she reports she is ?anxious.? She is very adamant that she wants placement on the [facility] floor. She is shaking, tearful, declined to participate in interview. Past Psychiatric History: -Pt sees Dr. Shearer in OP setting -Remote hx of IPL 12 yrs ago, recent admission at [facility] S1 08/2021. 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 -Pt is , and her is a Clinical [employer] Body Repair Chief, and they have a 36 yro son. She and her live in their home in [place]. Substance History: -Cannabis: uses three times a week Diagnostics Vital Signs (24Hr): Vital Signs - 24 hr 04/29/22 11:28 04/29/22 17:25 04/29/22 19:01 Temperature 99.1 F 98.9 F Pulse Rate 98 82 85 Respiratory Rate 18 20 16 Blood Pressure 142/91 H 141/80 H 174/82 H Pulse Oximetry 98 95 95 Oxygen Delivery Method Room Air Room Air Room Air BMI result Body Mass Index 21.7 Labs Results: 04/29/22 12:18 document embedded image 05/05/22 07:00 document embedded image Labs: Laboratory Results - last 48 hr 04/29/22 04/29/22 04/29/22 12:13 12:13 12:14 WBC RBC Hgb Hct MCV MCH MCHC RDW Plt Count MPV Immature Gran % (Auto) Neut % (Auto) Lymph % (Auto) [place] % (Auto) Eos % (Auto) Baso % (Auto) Lymph # (Auto) [place] # (Auto) Eos # (Auto) Baso # (Auto) Abs Immat Gran (auto) Absolute Neuts (auto) Absolute Nucleated RBC Nucleated RBC % (auto) Sodium Potassium Chloride Carbon Dioxide Anion Gap BUN Creatinine Estim Creat Clear Calc Estimated GFR Random Glucose Calcium Total Bilirubin AST ALT Alkaline Phosphatase Total Protein Albumin Urine Color YELLOW Urine Appearance CLEAR Urine pH 6.5 Ur Specific Desha <= 1.005 Urine Protein NEG Urine Glucose (UA) NEG Urine Ketones NEG Urine Blood NEG Urine Nitrite NEG Ur Leukocyte Esterase NEG Urine Opiates Screen Not Detected Urine Fentanyl Screen Not Detected Ur Barbiturates Screen Not Detected Ur Phencyclidine Scrn Not Detected Ur Amphetamines Screen Not Detected U Benzodiazepines Scrn POSITIVE H [place] Urine Cocaine Screen Not Detected U Marijuana (THC) Screen POSITIVE H COVID-19 (REE) Negative COVID-19 Clin Com See Note 04/29/22 04/29/22 04/29/22 12:18 12:18 12:18 WBC 13.0 H RBC 5.22 Hgb 15.5 Hct 48.3 H MCV 92.5 MCH 29.7 MCHC 32.1 RDW 13.1 Plt Count 362 MPV 10.0 Immature Gran % (Auto) 0.6 H Neut % (Auto) 86.8 H Lymph % (Auto) 5.4 L [place] % (Auto) 5.7 Eos % (Auto) 1.2 Baso % (Auto) 0.3 Lymph # (Auto) 0.7 L [place] # (Auto) 0.7 Eos # (Auto) 0.2 Baso # (Auto) 0.0 Abs Immat Gran (auto) 0.08 H Absolute Neuts (auto) 11.3 H Absolute Nucleated RBC 0.000 Nucleated RBC % (auto) 0.0 Sodium 141 Potassium 4.6 Chloride 107 Carbon Dioxide 25 Anion Gap 14 BUN 13 Creatinine 0.94 Estim Creat Clear Calc 40.8 Estimated GFR 59 Random Glucose 94 Calcium 10.2 Total Bilirubin 0.2 AST 20 ALT 30 Alkaline Phosphatase 128 H Total Protein 6.9 Albumin 4.3 Urine Color Urine Appearance Urine pH Ur Specific Desha Urine Protein Urine Glucose (UA) Urine Ketones Urine Blood Urine Nitrite Ur Leukocyte Esterase Urine Opiates Screen Urine Fentanyl Screen Ur Barbiturates Screen Ur Phencyclidine Scrn Ur Amphetamines Screen U Benzodiazepines Scrn [place] < 0.10 L Urine Cocaine Screen U Marijuana (THC) Screen COVID-19 (REE) COVID-19 Clin Com Meds/Allergies Meds Home Medications Medication Instructions Recorded Confirmed Type ascorbic acid (vitamin C) 2,000 mg 2,000 mg PO BEDTIME 09/09/21 04/29/22 History tablet,extended release calcium carbonate 600 mg calcium 1,200 mg PO BEDTIME 09/09/21 04/29/22 History (1,500 mg) tablet (Calcium) estradiol 10 mcg vaginal tablet 1 tab vaginal MOTH@1000 09/09/21 04/29/22 History (Yuvafem) menthol-herbal drugs lozenges 1 leonela mucous membrane Q2H 09/09/21 04/29/22 History (Ricola) bupropion HCl 100 mg tablet,12 hr 100 mg PO DAILY 04/17/22 04/29/22 History sustained-release dietary supplement 1 cap PO DAILY 04/17/22 04/29/22 History lamotrigine 100 mg tablet 100 mg PO BEDTIME 04/17/22 04/29/22 History (Lamictal) lithium carbonate 300 mg tablet 300 mg PO BEDTIME 04/17/22 04/29/22 History methylphenidate HCl 5 mg tablet 5 mg PO BID PRN focus 04/17/22 04/29/22 History Allergies Allergies Allergy/AdvReac Type Severity Reaction Status Date / Time No Known Allergies Allergy Verified 09/24/21 12:18 Mental Status Exam Mental Status Exam Narrative: A&O. In hospital attire, good hygiene, normal body habitus. Good eye contact, attentive. No Tics or Tremors. No abnormal involuntary movements. Anxious, guarded and difficulty engaging due to increased anxiety. Non-pressured speech, spontaneous with regular rate and rhythm, normal volume and prosody. No prolonged speech latency or dysarthria. Mood is ?anxious, affect is nervous. Denies SI/SIB/HI upon inquiry. Denies A/VH or delusional thought content. Thoughts are coherent, organized. No known cognitive or memory impairment. Insight/ Judgment fair and adequate. Assessment & Plan Assessment & Plan (1) Bipolar II disorder: Status: Acute Code(s): F31.81 - Bipolar II disorder (2) ADHD (attention deficit hyperactivity disorder): Status: Acute Code(s): F90.9 - Attention-deficit hyperactivity disorder, unspecified type (3) ZAC (generalized anxiety disorder): Status: Acute Code(s): F41.1 - Generalized anxiety disorder Plan Miriam is a 71 y.o. Female who carries a dx of ZAC, Bipolar II DO, and ADHD. She presented to [facility] ED on 04/29/22 due to worsening depression and anxiety x 3- 4 weeks, agitated mood, and feeling out of control.? 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 Recent CARE team eval at [facility] on 04/17/22 for similar presentation but dispo was to follow up with OP providers. Pt reports she has been adherent with her medications, sees Dr. Shearer in the OP setting. However, Li level <0.10 on admission. Utox positive for benzodiazepines, cannabis. Denies alcohol abuse. Plan: Pt reports she has been med-adherent, however Li level <0.10. She is adamant that she does not want med changes, willing to trial clonidine 0.1 mg TID PRN for hyperarousal and anxiety. Q15 min safety checks, CV Monitor response to medications. Monitor for safety in the milieu. Discharge on stabilization. Patient seen. Chart reviewed. Discussed with team. Obtain collateral contact info as needed Patient educated on: medication risk/benefits Reason for continued inpatient stay Substantial Risk for: med/psych decompensation Hospital course Patient was admitted to [facility] on a conditional voluntary initially she was admitted to the adult psychiatric unit and transferred to the [facility] patient had racing thoughts irritability agitation depression despair when admitted. [place] had recently been lowered and olanzapine. Patient does have a history of agitated depression generalized anxiety mixed bipolar state. She was stable for many years. Recent trigger was her son staying at home with her who has bipolar disorder he had recently injured himself and needed nursing care. She had also become overwhelmed with volunteer job she was doing. The patient had a lot of anxiety rumination during the hospital stay worried how she was going to manage feeling triggered by her son at home had recently been involved in an accident and had a leg repair that required family care at home while he was recuperating. For patient had racing thoughts intermittently hopeless helpless despondent agitated which she ever get better. [place] had been lower dose in the outpatient 300 mg S was increased back to 450 mg during her hospital stay this will need to most likely be tapered over time Lamictal was increased to 100 mg during the hospitalization olanzapine was also increased in seem to be quite helpful and moderating the patient's mood anxiety periods of despair. She gradually became more thoughtful logical able to think things through in a less catastrophic manner. Although the patient is normally a worrier she is normally quite highly functioning capacity for organization and engagement. Treatment was reviewed with the patient and her she was referred to [facility] prior to discharge with intention of individual therapy. Patient normally is quite stable but there has been some degree of family discord and patient's son has bipolar and has been a trigger for de stabilization at times Time Spent with Patient Time attestation: Total time spent providing and/or coordinating discharge services: Discharge Plan Discharge Patient Disposition: Home, Self-Care Discharge Diagnosis: bipolar 2 generalized anxiety hypertension chronic kidney disease Referrals: Dr. Ben Shearer (psychiatrist) [Other] - 05/29/22 11:30 am (Appointment scheduled for , May 29, 2022 @ 11:30 AM IN-OFFICE.) [facility] [Other] - 05/20/22 8:00 am (Referral made to [facility] on 05/07/22, appt scheduled for May 20, 2022 @ 8 AM.) [facility] - [facility] (Walk IN. call your pcp to schedule follow up) Tami Francis MD [Primary Care Provider] - 1 Week Discharge Medications: New olanzapine 7.5 mg Tablet 7.5 mg PO BEDTIME 30 Days Qty: 30 0RF lorazepam 0.5 mg Tablet 0.5 mg PO Q6H PRN (Reason: Anxiety/Restlessness) 30 Days Qty: 60 0RF lamotrigine 100 mg Tablet 150 mg PO BEDTIME 30 Days Qty: 45 0RF lithium carbonate 300 mg Tablet 450 mg PO BEDTIME 30 Days Qty: 45 0RF Continued dietary supplement Capsule 1 cap PO DAILY methylphenidate HCl 5 mg Tablet 5 mg PO BID PRN (Reason: focus) bupropion HCl 100 mg Tablet Sustained-Release 12 Hr 100 mg PO DAILY estradiol [Yuvafem] 10 mcg tablet 1 tab vaginal MOTH@1000 ascorbic acid (vitamin C) 2,000 mg Tablet Extended Release 2,000 mg PO BEDTIME calcium carbonate [Calcium 600] 600 mg calcium (1,500 mg) Tablet 1,200 mg PO BEDTIME Ricola Lozenge 1 leonela MUCOUS MEMBRANE Q2H amlodipine 2.5 mg tablet 7.5 mg PO DAILY 30 Days Qty: 90 0RF fluoxetine 40 mg capsule 40 mg PO DAILY 30 Days Qty: 30 2RF Changed olanzapine 5 mg Tablet 2.5 mg PO BID PRN (Reason: Anxiety) 30 Days Qty: 30 2RF Discontinued lithium carbonate 300 mg tablet 300 mg PO BEDTIME lamotrigine [Lamictal] 100 mg Tablet 100 mg PO BEDTIME diazepam 2 mg tablet 1 tab PO BID PRN (Reason: Anxiety) 30 Days Qty: 60 1RF Discharge Orders: Discharge Order (Routine); Ordered 05/08/22 Ordered By: Yovany Shearer Diet: advance to usual diet and low salt diet Activity on Discharge: As tolerated Stand Alone Forms: Patient Portal Discharge page Print Language: Taiwanese Other Ambulatory Orders: Comprehensive Lee. Panel Fast (Routine) Timeframe: 1 Week Facility: [facility] - Location: Laboratory Ordered By: Yovany Shearer [place] (Routine) Timeframe: 1 Week Facility: [facility] - Location: Laboratory Ordered By: Yovany Shearer Activity Restrictions/Additional Instructions: Pt and ready for discharge instructions. All medications reviewed with prescription awareness. Pt's belongings received and given to her and her . FU appts reviewed-pt may walkin to [facility] or they can call her own pcp due to no phone calls taken till this afternoon. pt states will call to make her own appt. Pt calm, receptive, in good spirits although states a little nervous. Pt walked to door with and belongings in hand. states no further questions Care Plan Goals: stable mood no self harm better strtess tolerance Health Concerns: depression severe anxiety mood instability bipolar 2 htn medication renal insufficiencey follow up nephrology avoid aspirion eleazar family of meds stay hydrated Plan of Treatment: php medication Assessment: pt much more stable less agitated Discharge Date/Time: 05/08/22 11:35
[2022-05-12 06:07] LABS: Lamotrigine Lamictal 3.2 mcg/mL (4.0-18.0)
== END 2022-05-08 11:35 | disposition home or self-care (01) | DRG 885 ==
LOC: HO.ED 17:10 → HO.PM5 18:45 → HO.PGERI 04-30 14:13
PROVIDERS: Physician Assistant Medical; Psychiatry & Neurology Psychiatry; Admitting Provider Psychiatry & Neurology Psychiatry; Emergency Provider Emergency Medicine; PCP Internal Medicine; Visit Provider Psychiatry & Neurology Psychiatry
DX: F31.81 Bipolar II disorder (principal); I10 Essential (primary) hypertension; F41.1 Generalized anxiety disorder; F90.9 Attention-deficit hyperactivity disorder, unspecified type; Z20.822 Contact with and (suspected) exposure to COVID-19; Z87.891 Personal history of nicotine dependence; Z79.899 Other long term (current) drug therapy
CPT/HCPCS: 36415; 80048; 80051; 80053; 80061; 80175; 80178; 80307; 81003; 83036; 84132; 84443; 85025; 87635; 93005; 99285

== ENCOUNTER 2022-08-14 12:15 | Outpatient (REF) | payer MEDICARE, SELFPAY ==
[2022-08-14 12:55] LABS: Lithium 0.55 mmol/L (0.60-1.20)
--- NOTE | 2022-08-14 13:15 | ECG_ITS ---
Test Reason : bipolar Blood Pressure : / mmHG Vent. Rate : 073 BPM Atrial Rate : 073 BPM P-R Int : 146 ms QRS Dur : 080 ms QT Int : 394 ms P-R-T Axes : 044 050 033 degrees QTc Int : 434 ms Normal sinus rhythm Normal ECG When compared with ECG of 29-APR-2022 17:15, No significant change was found Referred By: Yovany Shearer Electronically Signed By:MARQUISE AGUILERA
[2022-08-14 13:16] LABS: TSH reflex Free T4 0.87 uIU/mL (0.32-4.0)
[2022-08-14 13:25] LABS: Alanine Aminotransferase 20 U/L (0-31); Albumin Level 4.6 g/dL (3.5-5.0); Alkaline Phosphatase 110 U/L (39-117); Anion Gap 12 (12-20); Aspartate Amino Transferase 16 U/L (5-31); Bilirubin Total 0.2 mg/dL (0.0-1.0); Blood Urea Nitrogen 17 mg/dL (9-16); Carbon Dioxide 26 mmol/L (22-29); Chloride 108 mmol/L (96-108); Estimated Glomerular Filt Rate 52; Glucose Random 66 mg/dL (60-115); Potassium 4.4 mmol/L (3.3-5.1); Sodium 142 mmol/L (135-145)
[2022-08-14 14:03] LABS: Calcium 10.9 mg/dL (8.4-10.2)
[2022-08-19 07:13] LABS: Lamotrigine Lamictal 4.5 mcg/mL (4.0-18.0)
== END 2022-08-14 12:16 | disposition home or self-care (01) ==
LOC: HO.LAB 12:15
PROVIDERS: Visit Provider Psychiatry & Neurology Psychiatry
DX: F31.81 Bipolar II disorder (principal); F90.9 Attention-deficit hyperactivity disorder, unspecified type; F41.1 Generalized anxiety disorder; I10 Essential (primary) hypertension; E03.9 Hypothyroidism, unspecified; Z13.30 Encounter for screening examination for mental health and behavioral disorders, unspecified; Z71.89 Other specified counseling; Z79.899 Other long term (current) drug therapy
CPT/HCPCS: 36415; 80053; 80175; 80178; 84443; 90833; 93005; 99212

== ENCOUNTER 2022-08-18 12:02 | Outpatient (REF) | payer MEDICARE, SELFPAY ==
[2022-08-18 12:46] LABS: Estimated Average Glucose 97 mg/dL
[2022-08-18 12:49] LABS: Calcium 10.9 mg/dL (8.4-10.2); Magnesium 2.2 mg/dL (1.6-2.6)
[2022-08-21 16:02] LABS: Calcium, Ionized 5.6 mg/dL (4.8-5.6)
[2022-08-22 17:36] LABS: Parathyroid Hormone Related Pr 13 pg/mL (11-20)
== END 2022-08-18 12:03 | disposition home or self-care (01) ==
LOC: HO.LAB 12:02
PROVIDERS: PCP Internal Medicine; Visit Provider Psychiatry & Neurology Psychiatry
DX: F31.81 Bipolar II disorder (principal); E83.52 Hypercalcemia
CPT/HCPCS: 36415; 82310; 82330; 83036; 83519; 83735; 90833; 99212

== ENCOUNTER 2022-08-20 11:29 | Inpatient (IN) | payer MEDICARE, SELFPAY ==
[2022-08-20 12:00] VITALS: BP 164/86; PULSE 116; RESP 20; TEMP 36.7; O2SAT 98; BMI 21.9
--- NOTE | 2022-08-20 12:07 | ED_ITS ---
HPI - Psych General Chief Complaint: Psychiatric Symptoms Stated Complaint: DEPRESSION CRISIS Time Seen by Provider: 08/20/22 11:49 Source: patient Mode of arrival: ambulatory Limitations: no limitations History of Present Illness HPI Narrative: 71-year-old female history of depression presents to ED for worsening depression. Patient denies any suicidal or homicidal thoughts. Patient denies any auditory/visual hallucinations. Patient states her psychiatrist decrease the dosage over prozac and since than She has been feeling sad. Patient denies any new traumatic events or memory. Patient denies any physical complaints. Patient will likely be evaluated by crisis. Related Data Home Medications Medication Instructions Recorded Confirmed ascorbic acid (vitamin C) 2,000 mg 2,000 mg PO BEDTIME 09/09/21 08/14/22 tablet,extended release calcium carbonate 600 mg calcium 1,200 mg PO BEDTIME 09/09/21 04/29/22 (1,500 mg) tablet (Calcium) estradiol 10 mcg vaginal tablet 1 tab vaginal MOTH@1000 09/09/21 04/29/22 (Yuvafem) menthol-herbal drugs lozenges 1 leonela mucous membrane Q2H 09/09/21 04/29/22 (Ricola lozenges) dietary supplement 1 cap PO DAILY 04/17/22 04/29/22 methylphenidate HCl 5 mg tablet 5 mg PO BID PRN focus 04/17/22 04/29/22 Previous Rx's Medication Instructions Recorded amlodipine 2.5 mg tablet 7.5 mg PO DAILY 30 days #90 tabs 09/19/21 lithium carbonate 300 mg tablet 450 mg PO BEDTIME 30 days #45 tabs 05/08/22 olanzapine 5 mg tablet 2.5 mg PO BID PRN Anxiety 30 days 05/08/22 #30 tabs olanzapine 7.5 mg tablet 7.5 mg PO BEDTIME 30 days #30 tabs 05/08/22 lorazepam 0.5 mg tablet 0.5 mg PO Q6H PRN 08/12/22 Anxiety/Restlessness 30 days #60 tabs fluoxetine 20 mg capsule 20 mg PO DAILY 30 days #30 caps 08/14/22 lamotrigine 200 mg tablet 200 mg PO DAILY #30 tabs 08/18/22 mirtazapine 15 mg tablet 22.5 mg PO BEDTIME #30 tabs 08/18/22 Allergies Allergy/AdvReac Type Severity Reaction Status Date / Time No Known Allergies Allergy Verified 09/24/21 12:18 Review of Systems Review of Systems: Depression Yes all other systems are reviewed and are negative [facility] Past Medical History Medical History (Updated 08/20/22 @ 17:25 by NEMO Ma) Hypertension Hypothyroidism Social History Social History Household Members: Spouse Household Members Other:: And two cats. Housing: House Do you presently have visiting nurse or other home services: No Unable to assess alcohol history related to: Unknown Alcohol intake: never Patient Tobacco Use Status: Former Tobacco user Quit Date: 2013 Tobacco use type: Cigarette e-Cigarette/Vaping Use: Never Used Second Hand Smoke Exposure: No Use of substances other than those prescribed or required for medical reasons: Yes Substance Use Type: Marijuana Substance Use Frequency: Occasionally Last Used Substance: Days (ago) Advance Directives: No Advance Directives Information Provided: Yes Guardian: No service: No Sexual orientation: Straight/Heterosexual Physical Exam Vital Signs: Vital Signs: Last Vital Signs Temp 98.1 F 08/20/22 12:00 Pulse 116 H 08/20/22 12:00 Resp 20 08/20/22 12:00 BP 164/86 H 08/20/22 12:00 Pulse Ox 98 08/20/22 12:00 O2 Del Method 08/20/22 12:00 BMI result Body Mass Index 21.9 Const: General: cooperative, healthy appearing, comfortable, no acute distress, well developed, alert, awake and Physically active Orientation/consciousness: oriented to person, oriented to place, oriented to time and patient oriented x3 HEENT: Head: Yes normal to inspection, Yes No palpable skull fracture present, Yes normocephalic, Yes atraumatic and No abrasion Eyes: General: appearance normal, both eyes and all related structures Neck: Neck: Yes normal visual inspection, Yes full ROM, Yes no lymphadenopathy, Yes no meningeal signs, Yes trachea midline, Yes supple, No anterior neck swelling and No tender Chest: Chest palpation & inspection: normal inspection of the chest and normal palpation of entire chest wall Resp: Effort & Inspection: normal respiratory effort and able to speak in complete sentences Auscultation: clear to auscultation bilaterally Cardio: Jugular venous distension: no JVD Heart sounds: S1 normal heart sound present and S2 normal heart sound present GI: Inspection: Yes normal to inspection and No abdominal wall ecchymosis Palpation (GI): Soft to palpation, not firm, nontender, no guarding and not rigid : General: No CVA tenderness and Yes no CVA tenderness Back/Spine/Pelvis: Back: no CVA tenderness, No CVA tenderness and No back tenderness Skin: General skin exam: no rashes or lesions noted and elasticity normal Neuro: General: oriented to person, oriented to place, oriented to time, patient oriented x3, gait normal, tone normal, no meningeal signs and CN's II-XI intact bilaterally Cranial nerves: Yes CN's II-XII intact bilaterally Extrem: General: Yes normal to inspection and Yes full ROM Psych: Appearance: grossly normal, well kempt and not disheveled Course Course Course Narrative: Will do labs and crisis evaluation Reevaluation(s) Reevaluation #1: Labs are normal. EKG pending for possible admission. Crisis consult placed. Time: 17:21 MDM - Psych MDM Narrative Medical decision making narrative: Depression Lab Data Result diagrams: 08/20/22 12:30 08/20/22 12:30 Labs: Lab Results 08/20/22 08/20/22 08/20/22 Range/Units 12:30 12:30 13:50 WBC 12.4 H (4.8-10.8) X10*3/uL RBC 4.78 (4.20-5.50) X10*6/uL Hgb 14.2 (12.0-16.0) g/dl Hct 44.4 (37.0-47.0) % MCV 92.9 (80.0-98.0) fL MCH 29.7 (27.0-33.0) pg MCHC 32.0 (31.0-35.0) g/dl RDW 12.8 (11.0-16.0) % Plt Count 373 (160-400) X10*3/uL MPV 9.6 (9.4-12.3) fL Immature Gran % (Auto) 0.6 H (0.0-0.4) % Neut % (Auto) 83.3 H (45-73) % Lymph % (Auto) 8.3 L (20-40) % [place] % (Auto) 6.7 (2-11) % Eos % (Auto) 0.7 (0-4) % Baso % (Auto) 0.4 (0-2) % Lymph # (Auto) 1.0 L (1.2-4.9) X10*3/uL [place] # (Auto) 0.8 (0.1-1.2) X10*3/uL Eos # (Auto) 0.1 (0.0-0.4) X10*3/uL Baso # (Auto) 0.1 (0.0-0.2) X10*3/uL Abs Immat Gran (auto) 0.07 H (0.00-0.03) X10*3/uL Absolute Neuts (auto) 10.4 H (2.0-8.3) x10*3/uL Absolute Nucleated RBC 0.000 (0.0-0.012) X10*3/uL Nucleated RBC % (auto) 0.0 (0.0-0.2) /100WBC Sodium 139 (135-145) mmol/L Potassium 4.8 (3.3-5.1) mmol/L Chloride 107 (96-108) mmol/L Carbon Dioxide 26 (22-29) mmol/L Anion Gap 11 L (12-20) BUN 20 H (9-16) mg/dL Creatinine 0.94 (0.5-1.4) mg/dL Estim Creat Clear Calc 40.8 Estimated GFR 59 Random Glucose 106 (60-115) mg/dL Calcium 10.4 H (8.4-10.2) mg/dL Total Bilirubin 0.2 (0.0-1.0) mg/dL AST 16 (5-31) U/L ALT 15 (0-31) U/L Alkaline Phosphatase 102 (39-117) U/L Total Protein 6.8 (6.5-8.0) g/dL Albumin 4.3 (3.5-5.0) g/dL Urine Color Yellow Urine Appearance Clear Urine pH 6.5 (5.0-9.0) Ur Specific [place] 1.010 (1.005-1.025) Urine Protein Negative (Neg-Trace) mg/dL Urine Glucose (UA) Negative (Negative) mg/dL Urine Ketones Negative (Negative) mg/dL Urine Blood Negative (Negative) Urine Nitrite Negative (Negative) Ur Leukocyte Esterase Trace H (Negative) Urine RBC 0-2 (0-2) /HPF Urine WBC 0-5 (0-5) /HPF Ur Squamous Epith Cells 3-5 (0-2) /HPF Urine Bacteria None Seen (None Seen) Hyaline Casts 0-2 (0-2) /LPF Urine Opiates Screen (Not Detect) Urine Fentanyl Screen (Not Detect) Ur Barbiturates Screen (Not Detect) Ur Phencyclidine Scrn (Not Detect) Ur Amphetamines Screen (Not Detect) U Benzodiazepines Scrn (Not Detect) Urine Cocaine Screen (Not Detect) U Marijuana (THC) Screen (Not Detect) Ethyl Alcohol < 10 mg/dL 08/20/22 Range/Units 13:50 WBC (4.8-10.8) X10*3/uL RBC (4.20-5.50) X10*6/uL Hgb (12.0-16.0) g/dl Hct (37.0-47.0) % MCV (80.0-98.0) fL MCH (27.0-33.0) pg MCHC (31.0-35.0) g/dl RDW (11.0-16.0) % Plt Count (160-400) X10*3/uL MPV (9.4-12.3) fL Immature Gran % (Auto) (0.0-0.4) % Neut % (Auto) (45-73) % Lymph % (Auto) (20-40) % [place] % (Auto) (2-11) % Eos % (Auto) (0-4) % Baso % (Auto) (0-2) % Lymph # (Auto) (1.2-4.9) X10*3/uL [place] # (Auto) (0.1-1.2) X10*3/uL Eos # (Auto) (0.0-0.4) X10*3/uL Baso # (Auto) (0.0-0.2) X10*3/uL Abs Immat Gran (auto) (0.00-0.03) X10*3/uL Absolute Neuts (auto) (2.0-8.3) x10*3/uL Absolute Nucleated RBC (0.0-0.012) X10*3/uL Nucleated RBC % (auto) (0.0-0.2) /100WBC Sodium (135-145) mmol/L Potassium (3.3-5.1) mmol/L Chloride (96-108) mmol/L Carbon Dioxide (22-29) mmol/L Anion Gap (12-20) BUN (9-16) mg/dL Creatinine (0.5-1.4) mg/dL Estim Creat Clear Calc Estimated GFR Random Glucose (60-115) mg/dL Calcium (8.4-10.2) mg/dL Total Bilirubin (0.0-1.0) mg/dL AST (5-31) U/L ALT (0-31) U/L Alkaline Phosphatase (39-117) U/L Total Protein (6.5-8.0) g/dL Albumin (3.5-5.0) g/dL Urine Color Urine Appearance Urine pH (5.0-9.0) Ur Specific [place] (1.005-1.025) Urine Protein (Neg-Trace) mg/dL Urine Glucose (UA) (Negative) mg/dL Urine Ketones (Negative) mg/dL Urine Blood (Negative) Urine Nitrite (Negative) Ur Leukocyte Esterase (Negative) Urine RBC (0-2) /HPF Urine WBC (0-5) /HPF Ur Squamous Epith Cells (0-2) /HPF Urine Bacteria (None Seen) Hyaline Casts (0-2) /LPF Urine Opiates Screen Not Detected (Not Detect) Urine Fentanyl Screen Not Detected (Not Detect) Ur Barbiturates Screen Not Detected (Not Detect) Ur Phencyclidine Scrn Not Detected (Not Detect) Ur Amphetamines Screen Not Detected (Not Detect) U Benzodiazepines Scrn POSITIVE H (Not Detect) Urine Cocaine Screen Not Detected (Not Detect) U Marijuana (THC) Screen POSITIVE H (Not Detect) Ethyl Alcohol mg/dL Discharge Plan Discharge Clinical Impression: Depression Patient Disposition: Still a Patient Prescriptions: No Action lorazepam 0.5 mg tablet 0.5 mg PO Q6H PRN (Reason: Anxiety/Restlessness) 30 Days Qty: 60 2RF dietary supplement Capsule 1 cap PO DAILY methylphenidate HCl 5 mg Tablet 5 mg PO BID PRN (Reason: focus) olanzapine 7.5 mg Tablet 7.5 mg PO BEDTIME 30 Days Qty: 30 0RF olanzapine 5 mg Tablet 2.5 mg PO BID PRN (Reason: Anxiety) 30 Days Qty: 30 2RF lithium carbonate 300 mg Tablet 450 mg PO BEDTIME 30 Days Qty: 45 0RF estradiol [Yuvafem] 10 mcg tablet 1 tab vaginal MOTH@1000 ascorbic acid (vitamin C) 2,000 mg Tablet Extended Release 2,000 mg PO BEDTIME calcium carbonate [Calcium 600] 600 mg calcium (1,500 mg) Tablet 1,200 mg PO BEDTIME Ricola Lozenge 1 leonela MUCOUS MEMBRANE Q2H amlodipine 2.5 mg tablet 7.5 mg PO DAILY 30 Days Qty: 90 0RF lamotrigine 200 mg tablet 200 mg PO DAILY Qty: 30 2RF mirtazapine 15 mg tablet 22.5 mg PO BEDTIME Qty: 30 2RF fluoxetine 20 mg capsule 20 mg PO DAILY 30 Days Qty: 30 2RF
[2022-08-20 12:35] LABS: MANUAL DIFF FLAG NO
[2022-08-20 12:43] LABS: Basophils Absolute Auto 0.1 X10*3/uL (0.0-0.2); Basophils Percent Auto 0.4 % (0-2); Eosinophils Absolute Auto 0.1 X10*3/uL (0.0-0.4); Eosinophils Percent Auto 0.7 % (0-4); Hematocrit 44.4 % (37.0-47.0); Hemoglobin 14.2 g/dl (12.0-16.0); Imm Gran Abs Auto 0.07 X10*3/uL (0.00-0.03); Imm Gran Pct Auto 0.6 % (0.0-0.4); Lymphocytes Percent Auto 8.3 % (20-40); Mean Corpuscular Hemoglobin 29.7 pg (27.0-33.0); Mean Corpuscular Volume 92.9 fL (80.0-98.0); Mean Platelet Volume 9.6 fL (9.4-12.3); Monocytes Absolute Auto 0.8 X10*3/uL (0.1-1.2); Monocytes Percent Auto 6.7 % (2-11); Neutrophils Absolute Auto 10.4 x10*3/uL (2.0-8.3); Neutrophils Percent Auto 83.3 % (45-73); Platelet Count 373 X10*3/uL (160-400); Red Blood Count 4.78 X10*6/uL (4.20-5.50); Red Cell Distribution Width 12.8 % (11.0-16.0); White Blood Count 12.4 X10*3/uL (4.8-10.8)
[2022-08-20 12:56] LABS: Alanine Aminotransferase 15 U/L (0-31); Albumin Level 4.3 g/dL (3.5-5.0); Alkaline Phosphatase 102 U/L (39-117); Anion Gap 11 (12-20); Aspartate Amino Transferase 16 U/L (5-31); Bilirubin Total 0.2 mg/dL (0.0-1.0); Blood Urea Nitrogen 20 mg/dL (9-16); Calcium 10.4 mg/dL (8.4-10.2); Carbon Dioxide 26 mmol/L (22-29); Chloride 107 mmol/L (96-108); Creatinine Clr Calc Pharmacy 40.8; Estimated Glomerular Filt Rate 59; Ethanol < 10 mg/dL; Glucose Random 106 mg/dL (60-115); Potassium 4.8 mmol/L (3.3-5.1); Sodium 139 mmol/L (135-145); Total Protein 6.8 g/dL (6.5-8.0)
[2022-08-20 13:58] LABS: Appearance Urine Clear; Color Urine Yellow; Glucose Urine UA Negative (Negative); Leukocyte Esterase Urine Trace (Negative); Nitrite Urine Negative (Negative); PH 6.5 (5.0-9.0); UMIC TRIGGER UACC YES; Urine Blood Negative (Negative); Urine Ketones Negative (Negative); Urine Protein Negative (Neg-Trace)
[2022-08-20 14:02] LABS: Bacteria Urine None Seen (None Seen); Hyaline Casts Urine 0-2 /LPF (0-2); RBC Urine 0-2 /HPF (0-2); WBC Urine 0-5 /HPF (0-5)
--- OUTSIDE RECORDS SUMMARY | 2022-08-20 14:06 | XMS_ITS | Continuity of Care Document ---
:1950 Author Organization [facility] Address [address], [address] [place] [address]- Care Team Providers Name Role Phone Tami Francis MD Primary Care Physician Encounter 07/04/22 - 07/11/22 [facility] [address], [address] [place] [address]- us Attending Physician: Valorie Luu MD Admitting Physician: Valorie Luu MD Referring Physician: Valorie Luu MD Allergies, Adverse Reactions, Alerts No Known Allergies Care Team PersonnelName: Tami Francis MD Address: [address] [place] [address] [address] [place], [place] [address]
--- OUTSIDE RECORDS SUMMARY | 2022-08-20 14:06 | XMS_ITS | Continuity of Care Document ---
:1950 Author Organization [facility] Address [address] [place] [address], [address] [address]- Care Team Providers Name Role Phone Tray FONSECA, Janiya White Primary Care Physician Encounter 09/13/20 - 09/20/20 [facility] [address], [address] [place] [address]- Attending Physician: Valorie Luu MD Admitting Physician: Valorie Luu MD Referring Physician: Valorie Luu MD Allergies, Adverse Reactions, Alerts Substance Reaction Severity Status NKA Active
--- OUTSIDE RECORDS SUMMARY | 2022-08-20 14:06 | XMS_ITS | Continuity of Care Document ---
:1950 Author Organization [facility] Address [address] [place] [id number]- Care Team Providers Name Role Phone Tray FONSECA, Janiya White Primary Care Physician Encounter [facility] Date(s): 12/17/20 - 03/11/21 [facility] [address] [id number] Discharge Disposition: A-D/C Home Attending Physician: Cinthya Baker MD Admitting Physician: Cinthya Baker MD Referring Physician: Tami Francis MD Allergies, Adverse Reactions, Alerts Substance Reaction Severity Status NKA Active
--- OUTSIDE RECORDS SUMMARY | 2022-08-20 14:06 | XMS_ITS | Continuity of Care Document ---
:1950 Author Organization [facility] Address [address] [place] [address], [address] [address]- Care Team Providers Name Role Phone Tray FONSECA, Janiya White Primary Care Physician Encounter 07/08/21 - 10/16/21 [facility] [address], [address] [place] [id number]- Attending Physician: Valorie Luu MD Admitting Physician: Valorie Luu MD Referring Physician: Valorie Luu MD Allergies, Adverse Reactions, Alerts Substance Reaction Severity Status NKA Active
--- OUTSIDE RECORDS SUMMARY | 2022-08-20 14:06 | XMS_ITS | Continuity of Care Document ---
:1950 Author Organization [facility] Address [address] [place] [phone]- Care Team Providers Name Role Phone Tray FONSECA, Janiya White Primary Care Physician Encounter [facility] Date(s): 12/17/20 - 01/16/21 [facility] [address] [address] Attending Physician: Admtr, Ar8 Admitting Physician: Admtr, Ar8 Referring Physician: Admtr, Ar8 Allergies, Adverse Reactions, Alerts Substance Reaction Severity Status NKA Active
[2022-08-20 14:23] LABS: Amphetamine Screen Urine Not Detected (Not Detect); Barbiturates, Urine Not Detected (Not Detect); Benzodiazepines Screen Urine POSITIVE (Not Detect); Cannabinoid Screen Urine POSITIVE (Not Detect); Cocaine Screen Urine Not Detected (Not Detect); Fentanyl, urine Not Detected (Not Detect); Opiate Screen Urine Not Detected (Not Detect); Phencyclidine Screen Urine Not Detected (Not Detect)
--- NOTE | 2022-08-20 16:51 | ECG_ITS ---
Test Reason : MED CLEARANCE Blood Pressure : / mmHG Vent. Rate : 073 BPM Atrial Rate : 073 BPM P-R Int : 140 ms QRS Dur : 082 ms QT Int : 388 ms P-R-T Axes : 067 062 047 degrees QTc Int : 427 ms Normal sinus rhythm Normal ECG When compared with ECG of 14-AUG-2022 13:12, No significant change was found Referred By: Randall Acosta Electronically Signed By:MARQUISE AGUILERA
[2022-08-20 17:58] LABS: COVID-19 Test Negative (Negative)
--- NOTE | 2022-08-20 18:45 | PHA.MEDREC ---
Pharmacy Consult ? Medication Reconciliation Pharmacy has completed the medication reconciliation. PATIENT STATES PRN ORDER OF OLANZAPINE REPLACED WES Urena
[2022-08-20 19:21] VITALS: BP 150/77; PULSE 87; RESP 16; TEMP 36.8; O2SAT 96
[2022-08-20] MEDS: Ascorbic Acid 500 MG TABLET 2000 MG PO (23:00)
[2022-08-20] MEDS: Mirtazapine 7.5 MG TABLET 22.5 MG PO (23:02)
[2022-08-20] MEDS: lamoTRIgine 100 MG TABLET 200 MG PO (23:05)
[2022-08-20] MEDS: OLANZapine 7.5 MG TABLET PO (23:06)
[2022-08-20 23:07] VITALS: BP 128/79; PULSE 88; RESP 16; TEMP 36.8; O2SAT 96; BMI 22.1
[2022-08-20] MEDS: Lithium Carbonate 300 MG CAPSULE 450 MG PO (23:07)
--- NOTE | 2022-08-20 23:42 | PC.ADMIT ---
Admitted these 71 yrs. old Faroese speaking female per wheelchair accompanied by the security checker from ED with presenting problem of debilitating anxiety, agitation, hopelessness and impaired functioning on the recommendation of her long time psychiatrist. Patient is well known to [facility] through prior admissions, of which she has three in the last year. Patient reported that she has been having severe symptoms for the last 3 weeks and medications adjustments have not been effective. Patient arrived in the unit at 20:10h, oriented to the unit,room, staff and roommate. Patient is alert and oriented x4, memory appears to be intact. skin intact, w/ a small fading bruise on the Left AC from post blood draws,No edema noted.Pt. wears eyeglasses for reading,independent w/ care and ambulation w/ steady gait.Patient pleasant and cooperative w/ admission process.Patient said she is depressed but denies SI/HI/AVH/Anxiety/Pain and feels safe in the unit.Pt. said she is using a R.knee brace at times at home.Patient signed the CV and all papers to release information. Patient denies any medical history.
[2022-08-21 06:00] VITALS: BP 159/78; PULSE 93; RESP 18; TEMP 36.3; O2SAT 96
[2022-08-21 07:00] VITALS: BMI 22.1
[2022-08-21 08:12] LABS: Alanine Aminotransferase 14 U/L (0-31); Alkaline Phosphatase 93 U/L (39-117); Anion Gap 11 (12-20); Aspartate Amino Transferase 16 U/L (5-31); Bilirubin Total 0.3 mg/dL (0.0-1.0); Blood Urea Nitrogen 20 mg/dL (9-16); Calcium 10.5 mg/dL (8.4-10.2); Carbon Dioxide 27 mmol/L (22-29); Chloride 108 mmol/L (96-108); Cholesterol 169 mg/dL; Creatinine Clr Calc Pharmacy 37.9; Estimated Glomerular Filt Rate 54; Glucose Fasting 95 mg/dL (60-99); HDL Cholesterol 53 mg/dL; LDL Cholesterol Calculated 89 mg/dl; Potassium 4.7 mmol/L (3.3-5.1); Sodium 141 mmol/L (135-145); Total Protein 6.1 g/dL (6.5-8.0); Triglycerides 137 mg/dL
[2022-08-21] MEDS: amLODIPine Besylate 2.5 MG TABLET 7.5 MG PO (10:17)
[2022-08-21] MEDS: Multivitamin TABLET 1 TAB PO (10:17)
[2022-08-21] MEDS: FLUoxetine HCl 20 MG CAPSULE PO (10:17)
--- NOTE | 2022-08-21 15:47 | P.HPPS_ITS ---
HPI Date of Service: 08/21/22 Chief Complaint: Mood Sources of Information: patient interviewed, chart reviewed and crisis/core team assessment reviewed HPI Subjective Notes: [place] Warning and Conditional Voluntary Narrative: The patient is a 71-year-old female, with adult children, with good social support diagnosed with bipolar type 2 admitted from outpatient services since she reported exacerbation of depression in the last 3 weeks elicited by depressed mood, anhedonia, lack of energy increased anxiety and poor sleep. She was assessed by crisis sings her functionality worsen it dramatically in the last days and she was unable to take care of herself. On interview the patient reported that recently there were medication changes in order to avoid admission but she felt overwhelmed and unsafe so she agreed to get admitted into the unit for stabilization. We discussed options and she agreed to increase Prozac up to 30 mg po qhs. She was able to contract for safety. Past Psychiatric History: -Pt sees Dr. Shearer in OP setting -Remote hx of [facility] 12 yrs ago, recent admissions at [facility] since 2020 with at least 4 admissions in the last 2 years Medical Evaluation Reviewed: Yes [facility] Medical History Hypertension Hypothyroidism Family History: Bipolar disorder Social History: Patient is retired she and her have a stable relationship. She has 1 son who has bipolar disorder the paper patient is active social enjoys being physically active Substance History: Denies Trauma History: NA Diagnostics Vital Signs (24Hr): Vital Signs - 24 hr 08/20/22 19:21 08/20/22 23:07 08/21/22 06:00 Temperature 98.3 F 98.2 F 97.3 F Pulse Rate 87 88 93 Respiratory Rate 16 16 18 Blood Pressure 150/77 H 128/79 159/78 H Pulse Oximetry 96 96 96 Oxygen Delivery Method Room Air Room Air Room Air BMI result Body Mass Index 22.1 Labs Results: 08/20/22 12:30 08/21/22 07:42 Labs: Laboratory Results - last 48 hr 08/20/22 08/20/22 08/20/22 12:30 12:30 13:50 WBC 12.4 H RBC 4.78 Hgb 14.2 Hct 44.4 MCV 92.9 MCH 29.7 MCHC 32.0 RDW 12.8 Plt Count 373 MPV 9.6 Immature Gran % (Auto) 0.6 H Neut % (Auto) 83.3 H Lymph % (Auto) 8.3 L [place] % (Auto) 6.7 Eos % (Auto) 0.7 Baso % (Auto) 0.4 Lymph # (Auto) 1.0 L [place] # (Auto) 0.8 Eos # (Auto) 0.1 Baso # (Auto) 0.1 Abs Immat Gran (auto) 0.07 H Absolute Neuts (auto) 10.4 H Absolute Nucleated RBC 0.000 Nucleated RBC % (auto) 0.0 Sodium 139 Potassium 4.8 Chloride 107 Carbon Dioxide 26 Anion Gap 11 L BUN 20 H Creatinine 0.94 Estim Creat Clear Calc 40.8 Estimated GFR 59 Random Glucose 106 Fasting Glucose Calcium 10.4 H Total Bilirubin 0.2 AST 16 ALT 15 Alkaline Phosphatase 102 Total Protein 6.8 Albumin 4.3 Triglycerides Cholesterol LDL Cholesterol, Calc HDL Cholesterol Urine Color Yellow Urine Appearance Clear Urine pH 6.5 Ur Specific [place] 1.010 Urine Protein Negative Urine Glucose (UA) Negative Urine Ketones Negative Urine Blood Negative Urine Nitrite Negative Ur Leukocyte Esterase Trace H Urine RBC 0-2 Urine WBC 0-5 Ur Squamous Epith Cells 3-5 Urine Bacteria None Seen Hyaline Casts 0-2 Urine Opiates Screen Urine Fentanyl Screen Ur Barbiturates Screen Ur Phencyclidine Scrn Ur Amphetamines Screen U Benzodiazepines Scrn Urine Cocaine Screen U Marijuana (THC) Screen Ethyl Alcohol < 10 COVID-19 (REE) COVID-19 Clin Com 08/20/22 08/20/22 08/21/22 13:50 17:29 07:42 WBC RBC Hgb Hct MCV MCH MCHC RDW Plt Count MPV Immature Gran % (Auto) Neut % (Auto) Lymph % (Auto) [place] % (Auto) Eos % (Auto) Baso % (Auto) Lymph # (Auto) [place] # (Auto) Eos # (Auto) Baso # (Auto) Abs Immat Gran (auto) Absolute Neuts (auto) Absolute Nucleated RBC Nucleated RBC % (auto) Sodium 141 Potassium 4.7 Chloride 108 Carbon Dioxide 27 Anion Gap 11 L BUN 20 H Creatinine 1.01 Estim Creat Clear Calc 37.9 Estimated GFR 54 Random Glucose Fasting Glucose 95 Calcium 10.5 H Total Bilirubin 0.3 AST 16 ALT 14 Alkaline Phosphatase 93 Total Protein 6.1 L Albumin 4.0 Triglycerides 137 Cholesterol 169 LDL Cholesterol, Calc 89 HDL Cholesterol 53 Urine Color Urine Appearance Urine pH Ur Specific [place] Urine Protein Urine Glucose (UA) Urine Ketones Urine Blood Urine Nitrite Ur Leukocyte Esterase Urine RBC Urine WBC Ur Squamous Epith Cells Urine Bacteria Hyaline Casts Urine Opiates Screen Not Detected Urine Fentanyl Screen Not Detected Ur Barbiturates Screen Not Detected Ur Phencyclidine Scrn Not Detected Ur Amphetamines Screen Not Detected U Benzodiazepines Scrn POSITIVE H Urine Cocaine Screen Not Detected U Marijuana (THC) Screen POSITIVE H Ethyl Alcohol COVID-19 (REE) Negative COVID-19 Clin Com See Note Meds/Allergies Meds Home Medications Medication Instructions Recorded Confirmed Type ascorbic acid (vitamin C) 2,000 mg 2,000 mg PO BEDTIME 09/09/21 08/20/22 History tablet,extended release calcium carbonate 600 mg calcium 1,200 mg PO BEDTIME 09/09/21 08/20/22 History (1,500 mg) tablet (Calcium) estradiol 10 mcg vaginal tablet 1 tab vaginal MOTH@1000 09/09/21 08/20/22 History (Yuvafem) dietary supplement 1 cap PO DAILY 04/17/22 08/20/22 History methylphenidate HCl 5 mg tablet 5 mg PO BID PRN focus 04/17/22 08/20/22 History lamotrigine 200 mg tablet 200 mg PO BEDTIME 08/20/22 08/20/22 History Allergies Allergies Allergy/AdvReac Type Severity Reaction Status Date / Time No Known Allergies Allergy Verified 09/24/21 12:18 Mental Status Exam Mental Status Exam Patient Appearance: Well Grooomed Patient Orientation: Person and Situation Level of Consciousness: Awake Patient Behavior: Cooperative Mood Description: Withdrawn and Constricted Affect Description: Labile Patient Cognition Impaired: No Ability to Follow Directions: Good Speech Pattern: Clear Hallucinations: None Delusions: Not Present Thought Process: Distracted Thought Content: positive for [place] and positive for Poverty of Content Judgement: Fair Assessment & Plan Assessment & Plan (1) Bipolar II disorder: Status: Acute Code(s): F31.81 - Bipolar II disorder (2) ADHD (attention deficit hyperactivity disorder): Status: Acute Code(s): F90.9 - Attention-deficit hyperactivity disorder, unspecified type (3) Hypertension: Status: Chronic Code(s): I10 - Essential (primary) hypertension (4) Hypothyroidism: Status: Acute Code(s): E03.9 - Hypothyroidism, unspecified Plan The patient is a 71-year-old female with bipolar type 2 admitted several times for exacerbation of depression, currently with more depressive symptoms for the last 3 weeks even though that as an outpatient we tried to increase her antidepressants. Plan 1. Gather collateral information. 2. Increased Prozac up to 30 mg p.o. q.h.s.. 3. Keep all other mood stabilizers and Remeron Patient educated on: diagnosis and therapeutic strategies Informed Consent: understands Reason for continued inpatient stay Substantial Risk for: harm to self, inability to function, rapid decompensation and med/psych decompensation
[2022-08-21 19:30] VITALS: BP 164/72; PULSE 69; RESP 16; TEMP 36.8; O2SAT 95
[2022-08-21 20:53] LABS: Glucose, Whole Blood 147 mg/dL (60-115)
[2022-08-21] MEDS: Mirtazapine 7.5 MG TABLET 22.5 MG PO (22:08)
[2022-08-21] MEDS: lamoTRIgine 100 MG TABLET 200 MG PO (22:08)
[2022-08-21] MEDS: OLANZapine 7.5 MG TABLET PO (22:08)
[2022-08-21] MEDS: Lithium Carbonate 300 MG TABLET 450 MG PO (22:08)
[2022-08-21] MEDS: Ascorbic Acid 500 MG TABLET 2000 MG PO (22:10)
[2022-08-22 06:00] VITALS: PULSE 70; RESP 16; TEMP 36.9
[2022-08-22] MEDS: Multivitamin TABLET 1 TAB PO (09:32)
[2022-08-22] MEDS: FLUoxetine HCl 10 MG CAPSULE 30 MG PO (09:32)
[2022-08-22] MEDS: amLODIPine Besylate 2.5 MG TABLET 7.5 MG PO (09:32)
--- NOTE | 2022-08-22 11:27 | HO.PSYCHPN ---
Subjective Subjective Date of Service: 08/22/22 Reason For Visit: Mood Subjective Notes: Conditional Voluntary Interim History: Pt presents as tremoulous. She reports feeling less anxious, less depressed. She reports sleep is good, which is confirmed by nuring. Pt denies SI/HI. Pt reports congestion- s/s to chronic dryness and medication which she states ENT doc has recommended musinex- ordered 600mg po BID. Seen by hospitalist for pink eye- ordered tobramycin. Medication Compliance: Yes Side effects from medications: No Diagnostics Vital Signs (24Hr): Vital Signs - 24 hr 08/22/22 18:00 Temperature 98.3 F Pulse Rate 72 Respiratory Rate 18 Blood Pressure 139/69 Pulse Oximetry 95 Oxygen Delivery Method Room Air BMI result Body Mass Index 22.1 Labs Results: 08/20/22 12:30 08/21/22 07:42 Labs: Laboratory Results - last 48 hr 08/21/22 20:48 POC Glucose 147 H Medications Medications Current Medications Acetaminophen (Acetaminophen 325 Mg Tablet) 650 mg PO Q6H PRN PRN Reason: Headache/Pain Mild Scale (1-3) Al Hydroxide/Mg Hydroxide (Magnesium Hydrox/Alum Hydrox 30 Ml Oral.Susp) 30 ml PO Q6H PRN PRN Reason: Heartburn/Nausea Amlodipine Besylate (Amlodipine Besylate 2.5 Mg Tablet) 7.5 mg PO DAILY [facility]; Protocol Last Admin: 08/22/22 09:32 Dose: 7.5 mg Ascorbic Acid (Ascorbic Acid 500 Mg Tablet) 2,000 mg PO BEDTIME [facility] Last Admin: 08/22/22 21:37 Dose: 2,000 mg Calcium Carbonate (Calcium Carbonate 500 Mg Tablet) 1,000 mg PO BEDTIME [facility] Last Admin: 08/22/22 21:37 Dose: 1,000 mg Fluoxetine HCl (Fluoxetine Hcl 10 Mg Capsule) 30 mg PO DAILY [facility] Last Admin: 08/22/22 09:32 Dose: 30 mg Guaifenesin (Guaifenesin La 600 Mg Tab.Er.12h) 600 mg PO BID [facility] Last Admin: 08/22/22 21:37 Dose: 600 mg Hydroxyzine HCl (Hydroxyzine Hcl 25 Mg Tablet) 25 mg PO Q6H PRN PRN Reason: Anxiety Lamotrigine (Lamotrigine 100 Mg Tablet) 200 mg PO BEDTIME [facility] Last Admin: 08/22/22 21:38 Dose: 200 mg [place] Carbonate ([place] Carbonate 300 Mg Tablet) 450 mg PO BEDTIME [facility] Last Admin: 08/22/22 21:37 Dose: 450 mg Magnesium Hydroxide (Milk Of Magnesia 30 Ml Oral.Susp) 30 ml PO DAILY PRN PRN Reason: Constipation Methylphenidate HCl (Methylphenidate Hcl 5 Mg Tablet) 5 mg PO BID PRN PRN Reason: focus Mirtazapine (Mirtazapine 7.5 Mg Tablet) 22.5 mg PO BEDTIME [facility] Last Admin: 08/22/22 21:37 Dose: 22.5 mg Multivitamins/Vitamin C (Multivitamin Tablet) 1 tab PO DAILY [facility] Last Admin: 08/22/22 09:32 Dose: 1 tab Non-Formulary Medication (Estradiol [Yuvafem]) 1 tab VAGINAL MOTH@1000 [facility] Olanzapine (Olanzapine 2.5 Mg Tablet) 2.5 mg PO BID PRN PRN Reason: Anxiety Olanzapine (Olanzapine 7.5 Mg Tablet) 7.5 mg PO BEDTIME [facility] Last Admin: 08/22/22 21:37 Dose: 7.5 mg Pharmacy Consult (Consult Rx Perform Med Rec) 1 each MISCELLANE ONCE PRN PRN Reason: Consult order Tobramycin Sulfate (Tobramycin Sulfate 0.3% Reina Op 5 Ml Btl) 1 drop EYE-BOTH RQ4H WHILE AWAKE [facility] Last Admin: 08/22/22 21:50 Dose: 1 drop Trazodone HCl (Trazodone Hcl 50 Mg Tablet) 50 mg PO BEDTIME PRN PRN Reason: Insomnia Allergies Allergies Allergy/AdvReac Type Severity Reaction Status Date / Time No Known Allergies Allergy Verified 09/24/21 12:18 Assessment & Plan Assessment & Plan (1) Depression: Status: Acute Code(s): F32.A - Depression, unspecified (2) Acute bacterial conjunctivitis of both eyes: Status: Acute Code(s): H10.33 - Unspecified acute conjunctivitis, bilateral Plan 08/22 continue current meds, only added musinex 600mg po BID. I spent minutes with the patient and/or on the patient floor today, greater than?50% of which was spent counseling/coordinating care. Reason for contiued inpatient stay Substantial Risk for: inability to function
--- NOTE | 2022-08-22 14:05 | HO.PM.IMCN ---
History of Present Illness Data of Consult Service Date: 08/22/22 Requesting physician: Sean Hoffman Primary Care Provider: Tami Francis MD [facility] Reason for consult: pink eye 71 year female admitted to psychiatry complaining of redness and drainage from the eyes b/l x 1 week. States this started in the left, now present b/l. Reports eyes stuck shut and crusty upon waking. Draining sticky clear/yellow discharge bilaterally. Does not wear contacts. No blurred vision, eye pain, or diplopia. Review of Systems Review of Systems: General: No fevers, malaise, unintentional weight loss HEENT: +eye redness and drainage. No blurred vision, diplopia Skin: No rashes or lesions PMFSH Medical History Hypertension Hypothyroidism Family History Other No pertinent family history Social History Household Members: Spouse Household Members Other:: And two cats. Housing: House Do you presently have visiting nurse or other home services: No Unable to assess alcohol history related to: Unknown Alcohol intake: never Patient Tobacco Use Status: Former Tobacco user Quit Date: 2013 Tobacco use type: Cigarette Smoked in Last 30 Days: No e-Cigarette/Vaping Use: Never Used Patient Interested in Nicotine Replacement: No (Pt have not been smoking for more than 15 yrs.) Second Hand Smoke Exposure: No Use of substances other than those prescribed or required for medical reasons: No Substance Use Type: Marijuana Substance Use Frequency: Occasionally Last Used Substance: Days (ago) Currently Displaying Signs/Symptoms of Drug Intoxication Withdrawal: No Any prior treatment program specific to substance use: No Have you been hit, kicked, punched, or otherwise hurt by someone within the past year? If so, by whom?: No Do you feel safe in your current relationship?: Yes Is there a partner from a previous relationship who is making you feel unsafe now?: No Are you made to feel afraid or neglected: No Advance Directives: No Advance Directives Information Provided: Yes Guardian: No Do you have thoughts of harming others: None Do you have a plan to hurt others: No Plan Recently lost weight without trying: No Eating poorly because of decreased appetite: No Nutrition Risks: No Nutritional Risk Patient : No : No Poor oral hygiene: No service: No Sexual orientation: Straight/Heterosexual Meds Allergies Allergy/AdvReac Type Severity Reaction Status Date / Time No Known Allergies Allergy Verified 09/24/21 12:18 Active Medications: Current Medications Acetaminophen (Acetaminophen 325 Mg Tablet) 650 mg PO Q6H PRN PRN Reason: Headache/Pain Mild Scale (1-3) Al Hydroxide/Mg Hydroxide (Magnesium Hydrox/Alum Hydrox 30 Ml Oral.Susp) 30 ml PO Q6H PRN PRN Reason: Heartburn/Nausea Amlodipine Besylate (Amlodipine Besylate 2.5 Mg Tablet) 7.5 mg PO DAILY [facility]; Protocol Last Admin: 08/22/22 09:32 Dose: 7.5 mg Ascorbic Acid (Ascorbic Acid 500 Mg Tablet) 2,000 mg PO BEDTIME [facility] Last Admin: 08/21/22 22:10 Dose: 2,000 mg Calcium Carbonate (Calcium Carbonate 500 Mg Tablet) 1,000 mg PO BEDTIME [facility] Last Admin: 08/21/22 22:10 Dose: 1,000 mg Fluoxetine HCl (Fluoxetine Hcl 10 Mg Capsule) 30 mg PO DAILY [facility] Last Admin: 08/22/22 09:32 Dose: 30 mg Guaifenesin (Guaifenesin La 600 Mg Tab.Er.12h) 600 mg PO BID [facility] Hydroxyzine HCl (Hydroxyzine Hcl 25 Mg Tablet) 25 mg PO Q6H PRN PRN Reason: Anxiety Lamotrigine (Lamotrigine 100 Mg Tablet) 200 mg PO BEDTIME [facility] Last Admin: 08/21/22 22:08 Dose: 200 mg [place] Carbonate ([place] Carbonate 300 Mg Tablet) 450 mg PO BEDTIME [facility] Last Admin: 08/21/22 22:08 Dose: 450 mg Magnesium Hydroxide (Milk Of Magnesia 30 Ml Oral.Susp) 30 ml PO DAILY PRN PRN Reason: Constipation Methylphenidate HCl (Methylphenidate Hcl 5 Mg Tablet) 5 mg PO BID PRN PRN Reason: focus Mirtazapine (Mirtazapine 7.5 Mg Tablet) 22.5 mg PO BEDTIME [facility] Last Admin: 08/21/22 22:08 Dose: 22.5 mg Multivitamins/Vitamin C (Multivitamin Tablet) 1 tab PO DAILY [facility] Last Admin: 08/22/22 09:32 Dose: 1 tab Non-Formulary Medication (Estradiol [Yuvafem]) 1 tab VAGINAL MOTH@1000 [facility] Olanzapine (Olanzapine 2.5 Mg Tablet) 2.5 mg PO BID PRN PRN Reason: Anxiety Olanzapine (Olanzapine 7.5 Mg Tablet) 7.5 mg PO BEDTIME [facility] Last Admin: 08/21/22 22:08 Dose: 7.5 mg Pharmacy Consult (Consult Rx Perform Med Rec) 1 each MISCELLANE ONCE PRN PRN Reason: Consult order Trazodone HCl (Trazodone Hcl 50 Mg Tablet) 50 mg PO BEDTIME PRN PRN Reason: Insomnia Home Medications Medication Instructions Recorded Confirmed Last Taken Type ascorbic acid (vitamin C) 2,000 mg 2,000 mg PO BEDTIME 09/09/21 08/20/22 08/19/22 History tablet,extended release calcium carbonate 600 mg calcium 1,200 mg PO BEDTIME 09/09/21 08/20/22 08/19/22 History (1,500 mg) tablet (Calcium) estradiol 10 mcg vaginal tablet 1 tab vaginal MOTH@1000 09/09/21 08/20/22 08/18/22 History (Yuvafem) dietary supplement 1 cap PO DAILY 04/17/22 08/20/22 08/20/22 History methylphenidate HCl 5 mg tablet 5 mg PO BID PRN focus 04/17/22 08/20/22 Unknown History lamotrigine 200 mg tablet 200 mg PO BEDTIME 08/20/22 08/20/22 08/19/22 History Physical Exam Vital Signs and Narrative: Vital Signs: Last Vital Signs Temp 98.3 F 08/21/22 19:30 Pulse 69 08/21/22 19:30 Resp 16 08/21/22 19:30 BP 164/72 H 08/21/22 19:30 Pulse Ox 95 08/21/22 19:30 O2 Del Method 08/21/22 19:30 BMI result Body Mass Index 22.1 Constitutional - Awake and Alert, No apparent distress Eyes - PERRLA, EOMI, scleara and conjunictiva injected b/l with thick clear/white drainage Cardiovascular - S1S2, RRR, No edema Respiratory - Normal lung expansion, Normal respiratory effort, No respiratory distress, CTA bilaterally Skin - Warm/Dry Neurological - Alert & oriented x3, CN II-XII in tact Results Labs CBC and Chem 7: 10/05/22 12:30 08/21/22 07:42 Labs: Laboratory Results - last 24 hr 08/21/22 20:48 POC Glucose 147 H Assessment and Plan (1) Depression: Status: Acute (2) Acute bacterial conjunctivitis of both eyes: Status: Acute Plan 71 year old female admitted to psychiatry with consult placed for b/l eye redness and drainage 1-Acute bilateral bacterial conjunctivitis -Tobramycin drops ordered 1-2 drops b/l q4h while awake. To complete 7 day course (discharge on medication if needed) -Recommend disposable warm compresses throughout the day (eg paper towels that can be discarded) -Pt educated on contagious nature of conjunctivitis. Advised to wash hands frequently and avoid touching eyes -No visual disturbance and does not wear contacts. Thank you for allowing me to participate in this consult. Signing off at this time. Please do not hesitate to call for further questions.
[2022-08-22 18:00] VITALS: BP 139/69; PULSE 72; RESP 18; TEMP 36.8; O2SAT 95
[2022-08-22] MEDS: Mirtazapine 7.5 MG TABLET 22.5 MG PO (21:37)
[2022-08-22] MEDS: Lithium Carbonate 300 MG TABLET 450 MG PO (21:37)
[2022-08-22] MEDS: OLANZapine 7.5 MG TABLET PO (21:37)
[2022-08-22] MEDS: Ascorbic Acid 500 MG TABLET 2000 MG PO (21:37)
[2022-08-22] MEDS: guaiFENesin LA 600 MG TAB.ER.12H PO (21:37)
[2022-08-22] MEDS: lamoTRIgine 100 MG TABLET 200 MG PO (21:38)
[2022-08-22] MEDS: Tobramycin Sulfate 0.3% Sol Op 5 ML BTL 1 DROP EYE-BOTH (21:50)
[2022-08-23] MEDS: FLUoxetine HCl 10 MG CAPSULE 30 MG PO (09:01)
[2022-08-23] MEDS: guaiFENesin LA 600 MG TAB.ER.12H PO ×2 (09:02→20:37)
[2022-08-23] MEDS: Multivitamin TABLET 1 TAB PO (09:02)
[2022-08-23] MEDS: amLODIPine Besylate 2.5 MG TABLET 7.5 MG PO (09:02)
[2022-08-23] MEDS: Tobramycin Sulfate 0.3% Sol Op 5 ML BTL 1 DROP EYE-BOTH ×4 (09:45→20:36)
[2022-08-23 18:00] VITALS: BP 139/65; PULSE 76; RESP 18; TEMP 37.2; O2SAT 93
[2022-08-23] MEDS: Mirtazapine 7.5 MG TABLET 22.5 MG PO (20:37)
[2022-08-23] MEDS: Lithium Carbonate 300 MG TABLET 450 MG PO (20:37)
[2022-08-23] MEDS: lamoTRIgine 100 MG TABLET 200 MG PO (20:38)
[2022-08-23] MEDS: Ascorbic Acid 500 MG TABLET 2000 MG PO (20:38)
[2022-08-23] MEDS: OLANZapine 7.5 MG TABLET PO (20:38)
--- NOTE | 2022-08-23 22:53 | HO.PSYCHPN ---
Subjective Subjective Date of Service: 08/23/22 Reason For Visit: Mood Interim History: Patient reports that she is feeling much better. She reports that depression and panic have resolved. Patient reports intermittent bilateral hand tremor which she says is chronic for her and comes and goes. Says it is familial and her mother had it as well. Patient denies any SI. Says that she was recently started on some new medications which she thinks is helping. Eating and sleeping well Mental Status Exam Mental Status Exam Patient Appearance: Well Grooomed Patient Orientation: Person and Situation Level of Consciousness: Awake and Appropriate Patient Behavior: Appropriate and Cooperative Mood Description: Calm ( better ) Affect Description: Calm and Appropriate Patient Cognition Impaired: No Ability to Follow Directions: Good Speech Pattern: Clear Hallucinations: None Delusions: Not Present Thought Process: Goal Oriented and Linear Thought Content: positive for [place], positive for Suicidal Ideation (DENIES) and positive for Homicidal Ideation (DENIES) Judgement: Fair Judgement and Insight: fair Diagnostics Vital Signs (24Hr): Vital Signs - 24 hr 08/23/22 18:00 Temperature 99 F Pulse Rate 76 Respiratory Rate 18 Blood Pressure 139/65 Pulse Oximetry 93 Oxygen Delivery Method Room Air BMI result Body Mass Index 22.1 Labs Results: 08/20/22 12:30 08/21/22 07:42 Medications Medications Current Medications Acetaminophen (Acetaminophen 325 Mg Tablet) 650 mg PO Q6H PRN PRN Reason: Headache/Pain Mild Scale (1-3) Al Hydroxide/Mg Hydroxide (Magnesium Hydrox/Alum Hydrox 30 Ml Oral.Susp) 30 ml PO Q6H PRN PRN Reason: Heartburn/Nausea Amlodipine Besylate (Amlodipine Besylate 2.5 Mg Tablet) 7.5 mg PO DAILY [facility]; Protocol Last Admin: 08/23/22 09:02 Dose: 7.5 mg Ascorbic Acid (Ascorbic Acid 500 Mg Tablet) 2,000 mg PO BEDTIME [facility] Last Admin: 08/23/22 20:38 Dose: 2,000 mg Calcium Carbonate (Calcium Carbonate 500 Mg Tablet) 1,000 mg PO BEDTIME [facility] Last Admin: 08/23/22 20:39 Dose: 1,000 mg Fluoxetine HCl (Fluoxetine Hcl 10 Mg Capsule) 30 mg PO DAILY [facility] Last Admin: 08/23/22 09:01 Dose: 30 mg Guaifenesin (Guaifenesin La 600 Mg Tab.Er.12h) 600 mg PO BID [facility] Last Admin: 10/08/22 20:37 Dose: 600 mg Hydroxyzine HCl (Hydroxyzine Hcl 25 Mg Tablet) 25 mg PO Q6H PRN PRN Reason: Anxiety Lamotrigine (Lamotrigine 100 Mg Tablet) 200 mg PO BEDTIME [facility] Last Admin: 08/23/22 20:38 Dose: 200 mg [place] Carbonate ([place] Carbonate 300 Mg Tablet) 450 mg PO BEDTIME [facility] Last Admin: 08/23/22 20:37 Dose: 450 mg Magnesium Hydroxide (Milk Of Magnesia 30 Ml Oral.Susp) 30 ml PO DAILY PRN PRN Reason: Constipation Methylphenidate HCl (Methylphenidate Hcl 5 Mg Tablet) 5 mg PO BID PRN PRN Reason: focus Mirtazapine (Mirtazapine 7.5 Mg Tablet) 22.5 mg PO BEDTIME [facility] Last Admin: 08/23/22 20:37 Dose: 22.5 mg Multivitamins/Vitamin C (Multivitamin Tablet) 1 tab PO DAILY [facility] Last Admin: 08/23/22 09:02 Dose: 1 tab Non-Formulary Medication (Estradiol [Yuvafem]) 1 tab VAGINAL MOTH@1000 [facility] Olanzapine (Olanzapine 2.5 Mg Tablet) 2.5 mg PO BID PRN PRN Reason: Anxiety Olanzapine (Olanzapine 7.5 Mg Tablet) 7.5 mg PO BEDTIME [facility] Last Admin: 08/23/22 20:38 Dose: 7.5 mg Pharmacy Consult (Consult Rx Perform Med Rec) 1 each MISCELLANE ONCE PRN PRN Reason: Consult order Tobramycin Sulfate (Tobramycin Sulfate 0.3% Reina Op 5 Ml Btl) 1 drop EYE-BOTH RQ4H WHILE AWAKE [facility] Last Admin: 08/23/22 20:36 Dose: 1 drop Trazodone HCl (Trazodone Hcl 50 Mg Tablet) 50 mg PO BEDTIME PRN PRN Reason: Insomnia Allergies Allergies Allergy/AdvReac Type Severity Reaction Status Date / Time No Known Allergies Allergy Verified 09/24/21 12:18 Assessment & Plan Assessment & Plan (1) Depression: Status: Acute Code(s): F32.A - Depression, unspecified (2) Acute bacterial conjunctivitis of both eyes: Status: Acute Code(s): H10.33 - Unspecified acute conjunctivitis, bilateral Plan 08/22 continue current meds, only added musinex 600mg po BID. 08/23 continue current treatment regimen I spent minutes with the patient and/or on the patient floor today, greater than?50% of which was spent counseling/coordinating care. Patient educated on: diagnosis and medication risk/benefits Informed Consent: understands Reason for contiued inpatient stay Substantial Risk for: stable for discharge
[2022-08-24 07:30] VITALS: BP 150/78; PULSE 87; RESP 16; TEMP 37.1; O2SAT 93
[2022-08-24] MEDS: guaiFENesin LA 600 MG TAB.ER.12H PO ×2 (09:10→20:08)
[2022-08-24] MEDS: FLUoxetine HCl 10 MG CAPSULE 30 MG PO (09:10)
[2022-08-24] MEDS: Multivitamin TABLET 1 TAB PO (09:10)
[2022-08-24] MEDS: amLODIPine Besylate 2.5 MG TABLET 7.5 MG PO (09:11)
[2022-08-24] MEDS: Tobramycin Sulfate 0.3% Sol Op 5 ML BTL 1 DROP EYE-BOTH ×4 (09:14→20:54)
[2022-08-24 18:00] VITALS: BP 152/76; PULSE 74; RESP 16; TEMP 37.1; O2SAT 16
--- NOTE | 2022-08-24 18:39 | HO.PSYCHPN ---
Subjective Subjective Date of Service: 08/24/22 Reason For Visit: Mood Interim History: Patient reports that she remains doing very well. No complaints, no requests. Staff concurs patient is in good mood appropriate with peers and staff Mental Status Exam Mental Status Exam Patient Appearance: Well Grooomed Patient Orientation: Person and Situation Level of Consciousness: Awake and Appropriate Patient Behavior: Appropriate and Cooperative Mood Description: Calm ( well ) Affect Description: Calm and Appropriate Patient Cognition Impaired: No Ability to Follow Directions: Good Speech Pattern: Clear Hallucinations: None Delusions: Not Present Thought Process: Goal Oriented and Linear Thought Content: positive for [place], positive for Suicidal Ideation (DENIES) and positive for Homicidal Ideation (DENIES) Judgement: Fair Judgement and Insight: fair Diagnostics Vital Signs (24Hr): Vital Signs - 24 hr 08/24/22 07:30 Temperature 98.7 F Pulse Rate 87 Respiratory Rate 16 Blood Pressure 150/78 H Pulse Oximetry 93 Oxygen Delivery Method Room Air BMI result Body Mass Index 22.1 Labs Results: 08/20/22 12:30 08/21/22 07:42 Medications Medications Current Medications Acetaminophen (Acetaminophen 325 Mg Tablet) 650 mg PO Q6H PRN PRN Reason: Headache/Pain Mild Scale (1-3) Al Hydroxide/Mg Hydroxide (Magnesium Hydrox/Alum Hydrox 30 Ml Oral.Susp) 30 ml PO Q6H PRN PRN Reason: Heartburn/Nausea Amlodipine Besylate (Amlodipine Besylate 2.5 Mg Tablet) 7.5 mg PO DAILY [facility]; Protocol Last Admin: 08/24/22 09:11 Dose: 7.5 mg Ascorbic Acid (Ascorbic Acid 500 Mg Tablet) 2,000 mg PO BEDTIME [facility] Last Admin: 08/23/22 20:38 Dose: 2,000 mg Calcium Carbonate (Calcium Carbonate 500 Mg Tablet) 1,000 mg PO BEDTIME [facility] Last Admin: 08/23/22 20:39 Dose: 1,000 mg Fluoxetine HCl (Fluoxetine Hcl 10 Mg Capsule) 30 mg PO DAILY [facility] Last Admin: 08/24/22 09:10 Dose: 30 mg Guaifenesin (Guaifenesin La 600 Mg Tab.Er.12h) 600 mg PO BID [facility] Last Admin: 08/24/22 09:10 Dose: 600 mg Hydroxyzine HCl (Hydroxyzine Hcl 25 Mg Tablet) 25 mg PO Q6H PRN PRN Reason: Anxiety Lamotrigine (Lamotrigine 100 Mg Tablet) 200 mg PO BEDTIME [facility] Last Admin: 08/23/22 20:38 Dose: 200 mg [place] Carbonate ([place] Carbonate 300 Mg Tablet) 450 mg PO BEDTIME [facility] Last Admin: 08/23/22 20:37 Dose: 450 mg Magnesium Hydroxide (Milk Of Magnesia 30 Ml Oral.Susp) 30 ml PO DAILY PRN PRN Reason: Constipation Methylphenidate HCl (Methylphenidate Hcl 5 Mg Tablet) 5 mg PO BID PRN PRN Reason: focus Mirtazapine (Mirtazapine 7.5 Mg Tablet) 22.5 mg PO BEDTIME [facility] Last Admin: 08/23/22 20:37 Dose: 22.5 mg Multivitamins/Vitamin C (Multivitamin Tablet) 1 tab PO DAILY [facility] Last Admin: 08/24/22 09:10 Dose: 1 tab Non-Formulary Medication (Estradiol [Yuvafem]) 1 tab VAGINAL MOTH@1000 [facility] Olanzapine (Olanzapine 2.5 Mg Tablet) 2.5 mg PO BID PRN PRN Reason: Anxiety Olanzapine (Olanzapine 7.5 Mg Tablet) 7.5 mg PO BEDTIME [facility] Last Admin: 08/23/22 20:38 Dose: 7.5 mg Pharmacy Consult (Consult Rx Perform Med Rec) 1 each MISCELLANE ONCE PRN PRN Reason: Consult order Tobramycin Sulfate (Tobramycin Sulfate 0.3% Reina Op 5 Ml Btl) 1 drop EYE-BOTH RQ4H WHILE AWAKE [facility] Last Admin: 08/24/22 17:12 Dose: 1 drop Trazodone HCl (Trazodone Hcl 50 Mg Tablet) 50 mg PO BEDTIME PRN PRN Reason: Insomnia Allergies Allergies Allergy/AdvReac Type Severity Reaction Status Date / Time No Known Allergies Allergy Verified 09/24/21 12:18 Assessment & Plan Assessment & Plan (1) Depression: Status: Acute Code(s): F32.A - Depression, unspecified (2) Acute bacterial conjunctivitis of both eyes: Status: Acute Code(s): H10.33 - Unspecified acute conjunctivitis, bilateral Plan 08/22 continue current meds, only added musinex 600mg po BID. 08/23 continue current treatment regimen 08/24 continue current treatment regimen I spent minutes with the patient and/or on the patient floor today, greater than?50% of which was spent counseling/coordinating care. Patient educated on: diagnosis Informed Consent: understands Reason for contiued inpatient stay Substantial Risk for: stable for discharge
[2022-08-24] MEDS: Ascorbic Acid 500 MG TABLET 2000 MG PO (20:08)
[2022-08-24] MEDS: Mirtazapine 7.5 MG TABLET 22.5 MG PO (20:09)
[2022-08-24] MEDS: lamoTRIgine 100 MG TABLET 200 MG PO (20:11)
[2022-08-24] MEDS: Lithium Carbonate 300 MG TABLET 450 MG PO (20:11)
[2022-08-24] MEDS: OLANZapine 7.5 MG TABLET PO (20:55)
[2022-08-25 07:30] VITALS: BP 184/88; PULSE 76; RESP 15; TEMP 36.8; O2SAT 96
[2022-08-25] MEDS: Tobramycin Sulfate 0.3% Sol Op 5 ML BTL 1 DROP EYE-BOTH ×4 (08:36→19:44)
[2022-08-25] MEDS: guaiFENesin LA 600 MG TAB.ER.12H PO ×2 (08:36→19:51)
[2022-08-25] MEDS: FLUoxetine HCl 10 MG CAPSULE 30 MG PO (08:36)
[2022-08-25] MEDS: Multivitamin TABLET 1 TAB PO (08:36)
[2022-08-25] MEDS: amLODIPine Besylate 2.5 MG TABLET 7.5 MG PO (08:36)
[2022-08-25 18:00] VITALS: BP 105/60; PULSE 66; RESP 12; TEMP 36.6; O2SAT 93
--- NOTE | 2022-08-25 18:36 | P.PNPSI_ITS ---
Subjective Subjective Date of Service: 08/25/22 Reason For Visit: Mood Interim History: Patient doing well, good mood, no complaints, no requests looking forward to going home Mental Status Exam Mental Status Exam Patient Appearance: Well Grooomed Patient Orientation: Person and Situation Level of Consciousness: Awake and Appropriate Patient Behavior: Appropriate and Cooperative Mood Description: Calm ( well ) Affect Description: Calm and Appropriate Patient Cognition Impaired: No Ability to Follow Directions: Good Speech Pattern: Clear Hallucinations: None Delusions: Not Present Thought Process: Goal Oriented and Linear Thought Content: positive for [place], positive for Suicidal Ideation (DENIES) and positive for Homicidal Ideation (DENIES) Judgement: Fair Judgement and Insight: fair Diagnostics Vital Signs (24Hr): Vital Signs - 24 hr 08/25/22 07:30 Temperature 98.3 F Pulse Rate 76 Respiratory Rate 15 Blood Pressure 184/88 H Pulse Oximetry 96 Oxygen Delivery Method Room Air BMI result Body Mass Index 22.1 Labs Results: 08/20/22 12:30 08/21/22 07:42 Medications Medications Current Medications Acetaminophen (Acetaminophen 325 Mg Tablet) 650 mg PO Q6H PRN PRN Reason: Headache/Pain Mild Scale (1-3) Al Hydroxide/Mg Hydroxide (Magnesium Hydrox/Alum Hydrox 30 Ml Oral.Susp) 30 ml PO Q6H PRN PRN Reason: Heartburn/Nausea Amlodipine Besylate (Amlodipine Besylate 2.5 Mg Tablet) 7.5 mg PO DAILY [facility]; Protocol Last Admin: 08/25/22 08:36 Dose: 7.5 mg Ascorbic Acid (Ascorbic Acid 500 Mg Tablet) 2,000 mg PO BEDTIME [facility] Last Admin: 08/24/22 20:08 Dose: 2,000 mg Calcium Carbonate (Calcium Carbonate 500 Mg Tablet) 1,000 mg PO BEDTIME [facility] Last Admin: 08/24/22 20:08 Dose: 1,000 mg Fluoxetine HCl (Fluoxetine Hcl 10 Mg Capsule) 30 mg PO DAILY [facility] Last Admin: 08/25/22 08:36 Dose: 30 mg Guaifenesin (Guaifenesin [place] 600 Mg Tab.Er.12h) 600 mg PO BID [facility] Last Admin: 08/25/22 08:36 Dose: 600 mg Hydroxyzine HCl (Hydroxyzine Hcl 25 Mg Tablet) 25 mg PO Q6H PRN PRN Reason: Anxiety Lamotrigine (Lamotrigine 100 Mg Tablet) 200 mg PO BEDTIME [facility] Last Admin: 08/24/22 20:11 Dose: 200 mg [place] Carbonate ([place] Carbonate 300 Mg Tablet) 450 mg PO BEDTIME [facility] Last Admin: 08/24/22 20:11 Dose: 450 mg Magnesium Hydroxide (Milk Of Magnesia 30 Ml Oral.Susp) 30 ml PO DAILY PRN PRN Reason: Constipation Methylphenidate HCl (Methylphenidate Hcl 5 Mg Tablet) 5 mg PO BID PRN PRN Reason: focus Mirtazapine (Mirtazapine 7.5 Mg Tablet) 22.5 mg PO BEDTIME [facility] Last Admin: 08/24/22 20:09 Dose: 22.5 mg Multivitamins/Vitamin C (Multivitamin Tablet) 1 tab PO DAILY [facility] Last Admin: 08/25/22 08:36 Dose: 1 tab Non-Formulary Medication (Estradiol [Yuvafem]) 1 tab VAGINAL MOTH@1000 [facility] Olanzapine (Olanzapine 2.5 Mg Tablet) 2.5 mg PO BID PRN PRN Reason: Anxiety Olanzapine (Olanzapine 7.5 Mg Tablet) 7.5 mg PO BEDTIME [facility] Last Admin: 08/24/22 20:55 Dose: 7.5 mg Pharmacy Consult (Consult Rx Perform Med Rec) 1 each MISCELLANE ONCE PRN PRN Reason: Consult order Tobramycin Sulfate (Tobramycin Sulfate 0.3% Reina Op 5 Ml Btl) 1 drop EYE-BOTH R Q4H WHILE AWAKE [facility] Last Admin: 08/25/22 15:37 Dose: 1 drop Trazodone HCl (Trazodone Hcl 50 Mg Tablet) 50 mg PO BEDTIME PRN PRN Reason: Insomnia Allergies Allergies Allergy/AdvReac Type Severity Reaction Status Date / Time No Known Allergies Allergy Verified 09/24/21 12:18 Assessment & Plan Assessment & Plan (1) Depression: Status: Acute Code(s): F32.A - Depression, unspecified (2) Acute bacterial conjunctivitis of both eyes: Status: Acute Code(s): H10.33 - Unspecified acute conjunctivitis, bilateral Plan 08/22 continue current meds, only added musinex 600mg po BID. 08/23 continue current treatment regimen 08/24 continue current treatment regimen 08/25 continue current treatment regimen; patient looking forward to discharge I spent minutes with the patient and/or on the patient floor today, greater than?50% of which was spent counseling/coordinating care. Patient educated on: diagnosis Informed Consent: understands Reason for contiued inpatient stay Substantial Risk for: stable for discharge
[2022-08-25] MEDS: Milk of Magnesia 30 ML ORAL.SUSP PO (19:43)
[2022-08-25] MEDS: Mirtazapine 7.5 MG TABLET 22.5 MG PO (19:45)
[2022-08-25] MEDS: Ascorbic Acid 500 MG TABLET 2000 MG PO (19:48)
[2022-08-25] MEDS: lamoTRIgine 100 MG TABLET 200 MG PO (19:50)
[2022-08-25] MEDS: Lithium Carbonate 300 MG TABLET 450 MG PO (19:51)
[2022-08-25] MEDS: OLANZapine 7.5 MG TABLET PO (22:55)
[2022-08-26 06:00] VITALS: BP 143/66; PULSE 75; RESP 17; TEMP 36.3; O2SAT 94
[2022-08-26] MEDS: guaiFENesin LA 600 MG TAB.ER.12H PO (08:24)
[2022-08-26] MEDS: amLODIPine Besylate 2.5 MG TABLET 7.5 MG PO (08:24)
[2022-08-26] MEDS: Multivitamin TABLET 1 TAB PO (08:24)
[2022-08-26] MEDS: FLUoxetine HCl 10 MG CAPSULE 30 MG PO (08:24)
[2022-08-26] MEDS: Tobramycin Sulfate 0.3% Sol Op 5 ML BTL 1 DROP EYE-BOTH (10:16)
--- NOTE | 2022-08-26 11:05 | PM.PSYDC ---
DS: Providers Provider Date of Service: 08/26/22 Date of admission: 08/20/22 19:22 Date of discharge: 08/26/22 Primary care physician: Tami Francis MD Consults: 08/21/22 10:58 Consult to Hospitalist Routine Consulting Provider: Hospitalist Reason For Exam: R/O pink eye? DS: Diagnosis Discharge Diagnosis (1) Depression: Status: Acute (2) Acute bacterial conjunctivitis of both eyes: Status: Acute DS: Medications Discharge Medications Home Medications: Home Medications Medication Instructions Recorded Confirmed ascorbic acid (vitamin C) 2,000 mg 2,000 mg PO BEDTIME 09/09/21 08/20/22 tablet,extended release calcium carbonate 600 mg calcium 1,200 mg PO BEDTIME 09/09/21 08/20/22 (1,500 mg) tablet (Calcium) estradiol 10 mcg vaginal tablet 1 tab vaginal MOTH@1000 09/09/21 08/20/22 (Yuvafem) dietary supplement 1 cap PO DAILY 04/17/22 08/20/22 methylphenidate HCl 5 mg tablet 5 mg PO BID PRN focus 04/17/22 08/20/22 lamotrigine 200 mg tablet 200 mg PO BEDTIME 08/20/22 08/20/22 Previous Rx's Medication Instructions Recorded amlodipine 2.5 mg tablet 7.5 mg PO DAILY 30 days #90 tabs 09/19/21 lithium carbonate 300 mg tablet 450 mg PO BEDTIME 30 days #45 tabs 05/08/22 olanzapine 5 mg tablet 2.5 mg PO BID PRN Anxiety 30 days 05/08/22 #30 tabs olanzapine 7.5 mg tablet 7.5 mg PO BEDTIME 30 days #30 tabs 05/08/22 fluoxetine 20 mg capsule 20 mg PO DAILY 30 days #30 caps 08/14/22 mirtazapine 15 mg tablet 22.5 mg PO BEDTIME #30 tabs 08/18/22 Mental Status Exam Mental Status Exam Patient Appearance: Well Grooomed Patient Orientation: Person, Place, Time and Situation Level of Consciousness: Awake Patient Behavior: Cooperative Mood Description: Calm Affect Description: Constricted Patient Cognition Impaired: No Ability to Follow Directions: Good Speech Pattern: Clear Memory Description: Intact Hallucinations: None Delusions: Not Present Thought Process: Linear Thought Content: positive for Circumstantial Judgement: Fair Data Data Completed and Pending Completed studies during hospitalization [Text1]: 10/05/22 10/05/22 10/05/22 12:30 12:30 13:50 WBC 12.4 H RBC 4.78 Hgb 14.2 Hct 44.4 MCV 92.9 MCH 29.7 MCHC 32.0 RDW 12.8 Plt Count 373 MPV 9.6 Immature Gran % (Auto) 0.6 H Neut % (Auto) 83.3 H Lymph % (Auto) 8.3 L Jackson % (Auto) 6.7 Eos % (Auto) 0.7 Baso % (Auto) 0.4 Lymph # (Auto) 1.0 L Jackson # (Auto) 0.8 Eos # (Auto) 0.1 Baso # (Auto) 0.1 Abs Immat Gran (auto) 0.07 H Absolute Neuts (auto) 10.4 H Absolute Nucleated RBC 0.000 Nucleated RBC % (auto) 0.0 Sodium 139 Potassium 4.8 Chloride 107 Carbon Dioxide 26 Anion Gap 11 L BUN 20 H Creatinine 0.94 Estim Creat Clear Calc 40.8 Estimated GFR 59 POC Glucose Random Glucose 106 Fasting Glucose Calcium 10.4 H Total Bilirubin 0.2 AST 16 ALT 15 Alkaline Phosphatase 102 Total Protein 6.8 Albumin 4.3 Triglycerides Cholesterol LDL Cholesterol, Calc HDL Cholesterol Urine Color Yellow Urine Appearance Clear Urine pH 6.5 Ur Specific Empire 1.010 Urine Protein Negative Urine Glucose (UA) Negative Urine Ketones Negative Urine Blood Negative Urine Nitrite Negative Ur Leukocyte Esterase Trace H Urine RBC 0-2 Urine WBC 0-5 Ur Squamous Epith Cells 3-5 Urine Bacteria None Seen Hyaline Casts 0-2 Urine Opiates Screen Urine Fentanyl Screen Ur Barbiturates Screen Ur Phencyclidine Scrn Ur Amphetamines Screen U Benzodiazepines Scrn Urine Cocaine Screen U Marijuana (THC) Screen Ethyl Alcohol < 10 COVID-19 (REE) COVID-19 Clin Com 08/20/22 08/20/22 08/21/22 13:50 17:29 07:42 WBC RBC Hgb Hct MCV MCH MCHC RDW Plt Count MPV Immature Gran % (Auto) Neut % (Auto) Lymph % (Auto) Jackson % (Auto) Eos % (Auto) Baso % (Auto) Lymph # (Auto) Jackson # (Auto) Eos # (Auto) Baso # (Auto) Abs Immat Gran (auto) Absolute Neuts (auto) Absolute Nucleated RBC Nucleated RBC % (auto) Sodium 141 Potassium 4.7 Chloride 108 Carbon Dioxide 27 Anion Gap 11 L BUN 20 H Creatinine 1.01 Estim Creat Clear Calc 37.9 Estimated GFR 54 POC Glucose Random Glucose Fasting Glucose 95 Calcium 10.5 H Total Bilirubin 0.3 AST 16 ALT 14 Alkaline Phosphatase 93 Total Protein 6.1 L Albumin 4.0 Triglycerides 137 Cholesterol 169 LDL Cholesterol, Calc 89 HDL Cholesterol 53 Urine Color Urine Appearance Urine pH Ur Specific Empire Urine Protein Urine Glucose (UA) Urine Ketones Urine Blood Urine Nitrite Ur Leukocyte Esterase Urine RBC Urine WBC Ur Squamous Epith Cells Urine Bacteria Hyaline Casts Urine Opiates Screen Not Detected Urine Fentanyl Screen Not Detected Ur Barbiturates Screen Not Detected Ur Phencyclidine Scrn Not Detected Ur Amphetamines Screen Not Detected U Benzodiazepines Scrn POSITIVE H Urine Cocaine Screen Not Detected U Marijuana (THC) Screen POSITIVE H Ethyl Alcohol COVID-19 (REE) Negative COVID-19 [facility] Com See Note 08/21/22 20:48 WBC RBC Hgb Hct MCV MCH MCHC RDW Plt Count MPV Immature Gran % (Auto) Neut % (Auto) Lymph % (Auto) Jackson % (Auto) Eos % (Auto) Baso % (Auto) Lymph # (Auto) Jackson # (Auto) Eos # (Auto) Baso # (Auto) Abs Immat Gran (auto) Absolute Neuts (auto) Absolute Nucleated RBC Nucleated RBC % (auto) Sodium Potassium Chloride Carbon Dioxide Anion Gap BUN Creatinine Estim Creat Clear Calc Estimated GFR POC Glucose 147 H Random Glucose Fasting Glucose Calcium Total Bilirubin AST ALT Alkaline Phosphatase Total Protein Albumin Triglycerides Cholesterol LDL Cholesterol, Calc HDL Cholesterol Urine Color Urine Appearance Urine pH Ur Specific Empire Urine Protein Urine Glucose (UA) Urine Ketones Urine Blood Urine Nitrite Ur Leukocyte Esterase Urine RBC Urine WBC Ur Squamous Epith Cells Urine Bacteria Hyaline Casts Urine Opiates Screen Urine Fentanyl Screen Ur Barbiturates Screen Ur Phencyclidine Scrn Ur Amphetamines Screen U Benzodiazepines Scrn Urine Cocaine Screen U Marijuana (THC) Screen Ethyl Alcohol COVID-19 (REE) COVID-19 [facility] [place] Com DS: Summary Hospital Course Hospital Course: The patient is a 71-year-old female very well known by the service who carries a diagnosis of mood disorder, with several admissions into the facility for exacerbation of depression in the context of social stressors. Please see the HPI of the current admission for further details. On admission, we assessed her medications and we discussed risks, benefits, side-effects and alternatives and she agreed to increase Prozac up to 30 mg p.o. daily to target depression. The patient tolerated fairly well the medication, she was future oriented that she participate in all the therapeutic activities in the facility. Since there were no safety concerns discharge planning was discussed. Time spent discussing smoking cessation with patient: 3 to 10 minutes Status at Discharge Cognitive/behavioral status at discharge: At baseline Functional status at discharge: independent ambulation Overall status at discharge: patient is back to baseline Time Spent with Patient Time attestation: Total time spent providing and/or coordinating discharge services: Time spent: Less than 30 minutes Discharge Plan Discharge Anticipated Discharge Date/Time: 08/26/22 11:07 Patient Disposition: Home, Self-Care Discharge Diagnosis: Bipolar disorder most recent episode depressed Referrals: DAMON Ndiaye [Other] - 08/26/22 Dr Yovany Shearer [Other] - 09/01/22 3:30 pm (Your next psychiatry appointment is scheduled for 09/01/22 at 3:30pm) Tami Francis MD [Primary Care Provider] - 09/08/22 2:45 pm Discharge Medications: New tobramycin 0.3 % Drops 1 drp ophthalmic (eye) RQ4H WHILE AWAKE 15 Days Qty: 5 0RF fluoxetine 10 mg Capsule 30 mg PO DAILY 30 Days Qty: 90 0RF multivitamin [Daily-Dara] Tablet 1 tab PO DAILY 30 Days Qty: 30 0RF ascorbic acid (vitamin C) [Vitamin C] 500 mg Tablet 2,000 mg PO BEDTIME 30 Days Qty: 120 0RF Continued methylphenidate HCl 5 mg Tablet 5 mg PO BID PRN (Reason: focus) 30 Days Qty: 60 0RF olanzapine 5 mg Tablet 2.5 mg PO BID PRN (Reason: Anxiety) 30 Days Qty: 30 2RF amlodipine 2.5 mg tablet 7.5 mg PO DAILY 30 Days Qty: 90 0RF olanzapine 7.5 mg Tablet 7.5 mg PO BEDTIME 30 Days Qty: 30 0RF calcium carbonate [Calcium 600] 600 mg calcium (1,500 mg) Tablet 1,200 mg PO BEDTIME Qty: 30 0RF mirtazapine 15 mg tablet 22.5 mg PO BEDTIME 30 Days Qty: 45 2RF lithium carbonate 300 mg Tablet 450 mg PO BEDTIME 30 Days Qty: 45 0RF Changed lamotrigine 200 mg tablet 200 mg PO BEDTIME 30 Days Qty: 30 0RF estradiol [Yuvafem] 10 mcg tablet 10 mcg vaginal MOTH@1000 Qty: 30 0RF Discontinued dietary supplement Capsule 1 cap PO DAILY ascorbic acid (vitamin C) 2,000 mg Tablet Extended Release 2,000 mg PO BEDTIME fluoxetine 20 mg capsule 20 mg PO DAILY 30 Days Qty: 30 2RF Discharge Orders: Discharge Order (Routine); Ordered 08/26/22 Ordered By: Sean Hoffman Diet: Advance to usual diet Activity on Discharge: As tolerated Stand Alone Forms: Patient Portal Discharge page Care Plan Goals: Care plan goals achieved in this admission Health Concerns: Continue treatment with primary care physician Plan of Treatment: Continue medication management as an outpatient Assessment: Elderly female with a diagnosis of bipolar readmitted for exacerbation of depression in the context of social stressors. Currently safe to be discharged
--- NOTE | 2022-08-26 11:16 | PC.NURSE ---
Patient alert and oriented in all spheres. Expresses readiness for d/c. Denies Anxiety/Depression. No SI/HI. all instructions reviewed with patient. Patient verbalizes understanding. Escorted to front of hospital by staff and .
== END 2022-08-26 11:30 | disposition home or self-care (01) | DRG 885 ==
LOC: HO.ED 17:27 → HO.PGERI 19:38
PROVIDERS: Physician Assistant; Admitting Provider Psychiatry & Neurology Psychiatry; Emergency Provider Emergency Medicine; PCP Internal Medicine; Visit Provider Psychiatry & Neurology Psychiatry
DX: F31.30 Bipolar disorder, current episode depressed, mild or moderate severity, unspecified (principal); E03.9 Hypothyroidism, unspecified; F90.9 Attention-deficit hyperactivity disorder, unspecified type; H10.33 Unspecified acute conjunctivitis, bilateral; I10 Essential (primary) hypertension; Z20.822 Contact with and (suspected) exposure to COVID-19; Z87.891 Personal history of nicotine dependence; Z79.899 Other long term (current) drug therapy
CPT/HCPCS: 36415; 80053; 80061; 80307; 81001; 81003; 82077; 82310; 82330; 82947; 83036; 83519; 83735; 85025; 87635; 90833; 93005; 99212; 99285

== ENCOUNTER → 2022-09-01 15:42 | Outpatient (BNVA) | payer MEDICARE, SELFPAY | PROVIDERS: PCP Internal Medicine; Visit Provider Psychiatry & Neurology Psychiatry | DX: F41.1 Generalized anxiety disorder (principal); F31.81 Bipolar II disorder; Z79.899 Other long term (current) drug therapy | CPT/HCPCS: 90833; 99212 ==

== ENCOUNTER → 2022-09-11 12:46 | Outpatient (BNVA) | payer MEDICARE, SELFPAY | PROVIDERS: PCP Internal Medicine; Visit Provider Psychiatry & Neurology Psychiatry | DX: F31.81 Bipolar II disorder (principal); F41.1 Generalized anxiety disorder; Z79.899 Other long term (current) drug therapy | CPT/HCPCS: 90833; 99212 ==

== ENCOUNTER → 2022-09-19 12:08 | Outpatient (BNVA) | payer MEDICARE, SELFPAY | PROVIDERS: PCP Internal Medicine; Visit Provider Psychiatry & Neurology Psychiatry | DX: F32.A Depression, unspecified (principal) | CPT/HCPCS: 90833; 99212 ==

== ENCOUNTER → 2022-09-25 15:46 | Outpatient (BNVA) | payer MEDICARE, SELFPAY | PROVIDERS: PCP Internal Medicine; Visit Provider Psychiatry & Neurology Psychiatry | DX: F31.81 Bipolar II disorder (principal); F90.9 Attention-deficit hyperactivity disorder, unspecified type | CPT/HCPCS: 99212 ==

== ENCOUNTER 2022-09-26 10:30 | Outpatient (REF) | payer MEDICARE, SELFPAY ==
--- NOTE | 2022-09-26 10:37 | ECG_ITS ---
Test Reason : preop Blood Pressure : / mmHG Vent. Rate : 089 BPM Atrial Rate : 089 BPM P-R Int : 144 ms QRS Dur : 086 ms QT Int : 358 ms P-R-T Axes : 057 061 053 degrees QTc Int : 435 ms Normal sinus rhythm Normal ECG When compared with ECG of 20-AUG-2022 17:17, No significant change was found Referred By: Yovany Shearer Electronically Signed By:LÓPEZ NARVAEZ MD
[2022-09-26 11:06] LABS: MANUAL DIFF FLAG NO
[2022-09-26 11:53] LABS: Basophils Absolute Auto 0.1 X10*3/uL (0.0-0.2); Basophils Percent Auto 0.6 % (0-2); Eosinophils Absolute Auto 0.2 X10*3/uL (0.0-0.4); Eosinophils Percent Auto 1.9 % (0-4); Hematocrit 44.1 % (37.0-47.0); Hemoglobin 13.9 g/dl (12.0-16.0); Imm Gran Abs Auto 0.02 X10*3/uL (0.00-0.03); Imm Gran Pct Auto 0.3 % (0.0-0.4); Lymphocytes Absolute Auto 0.9 X10*3/uL (1.2-4.9); Lymphocytes Percent Auto 11.5 % (20-40); Mean Corpuscular HGB Conc 31.5 g/dl (31.0-35.0); Mean Corpuscular Hemoglobin 29.7 pg (27.0-33.0); Mean Corpuscular Volume 94.2 fL (80.0-98.0); Monocytes Absolute Auto 0.4 X10*3/uL (0.1-1.2); Monocytes Percent Auto 5.3 % (2-11); Neutrophils Absolute Auto 6.4 x10*3/uL (2.0-8.3); Neutrophils Percent Auto 80.4 % (45-73); Platelet Count 357 X10*3/uL (160-400); Red Blood Count 4.68 X10*6/uL (4.20-5.50); Red Cell Distribution Width 13.1 % (11.0-16.0)
[2022-09-26 12:19] LABS: Alanine Aminotransferase 17 U/L (0-31); Alkaline Phosphatase 93 U/L (39-117); Anion Gap 16 (12-20); Aspartate Amino Transferase 16 U/L (5-31); Bilirubin Total 0.3 mg/dL (0.0-1.0); Blood Urea Nitrogen 13 mg/dL (9-16); Calcium 9.7 mg/dL (8.4-10.2); Carbon Dioxide 20 mmol/L (22-29); Chloride 108 mmol/L (96-108); Estimated Glomerular Filt Rate 56; Glucose Fasting 188 mg/dL (60-99); Potassium 4.4 mmol/L (3.3-5.1); Sodium 140 mmol/L (135-145); Total Protein 6.3 g/dL (6.5-8.0)
== END 2022-09-26 10:31 | disposition home or self-care (01) ==
LOC: HO.LAB 10:30
PROVIDERS: PCP Radiology Diagnostic Radiology; Visit Provider Psychiatry & Neurology Psychiatry
DX: Z01.818 Encounter for other preprocedural examination (principal); F31.81 Bipolar II disorder
CPT/HCPCS: 36415; 80053; 85025; 93005

== ENCOUNTER → 2022-10-17 13:48 | Outpatient (BNVA) | payer MEDICARE, SELFPAY | PROVIDERS: PCP Internal Medicine; Visit Provider Psychiatry & Neurology Psychiatry | DX: F31.81 Bipolar II disorder (principal); E03.9 Hypothyroidism, unspecified; Z79.899 Other long term (current) drug therapy | CPT/HCPCS: 90833; 99212 ==

== ENCOUNTER → 2022-10-23 11:30 | Outpatient (BNVA) | payer MEDICARE, SELFPAY | PROVIDERS: PCP Internal Medicine; Visit Provider Psychiatry & Neurology Psychiatry | DX: F31.81 Bipolar II disorder (principal); I10 Essential (primary) hypertension; E03.9 Hypothyroidism, unspecified | CPT/HCPCS: 99212 ==

== ENCOUNTER 2022-10-24 05:56 | Day surgery (SDC) | payer MEDICARE, SELFPAY ==
--- NOTE | 2022-10-23 13:04 | PM.ANESCN ---
History of Present Illness Consult details Consult date: 10/23/22 Requesting physician: Yovany Shearer Narrative: Patient presents for medical clearance for ECT. She has not had ECT before. Patient reports increased depressive symptoms, but otherwise no change in health status. Review of Systems Review of Systems: Denies any changes to health except for psychiatric issues as mentioned in HPI. Right knee limited mobility. Yes all other systems are reviewed and are negative Psychiatric: Psychiatric: Reports as per HPI [facility] Past Medical History Medical History (Updated 10/23/22 @ 13:09 by Marilyn Barriga NP) ADHD (attention deficit hyperactivity disorder) Bipolar II disorder Depression ZAC (generalized anxiety disorder) Hypertension Hypothyroidism Family History Family History Other No pertinent family history Surgical History Surgical History (Updated 10/23/22 @ 13:09 by Marilyn Barriga NP) H/O cone biopsy of cervix H/O thumb surgery History of Problems with Anesthesia: No Social History Social History Household Members: Spouse Household Members Other:: And two cats. Housing: House Do you presently have visiting nurse or other home services: No Unable to assess alcohol history related to: Unknown Alcohol intake: never Patient Tobacco Use Status: Former Tobacco user Quit Date: 2013 Tobacco use type: Cigarette e-Cigarette/Vaping Use: Never Used Second Hand Smoke Exposure: No Substance Use Type: Marijuana Advance Directives: No Advance Directives Information Provided: Yes service: No Sexual orientation: Straight/Heterosexual Meds Allergies Allergy/AdvReac Type Severity Reaction Status Date / Time No Known Allergies Allergy Verified 09/24/21 12:18 Home Medications Medication Instructions Recorded Confirmed Last Taken Type amlodipine 5 mg tablet 1.5 tab PO DAILY 10/23/22 10/23/22 10/23/22 History bupropion HCl 150 mg 24 hr tablet, 1 tab PO DAILY 10/23/22 10/23/22 Unknown History extended release fluoxetine 10 mg capsule 40 mg PO DAILY 10/23/22 10/23/22 History mirtazapine 30 mg tablet 1 tab PO BEDTIME 10/23/22 10/23/22 10/23/22 History olanzapine 5 mg tablet 1 tab PO BEDTIME 10/23/22 10/23/22 10/23/22 History Physical Exam Vital Signs: Vital Signs: 149/76 88bpm 96% RA Resp 20 Const: General: cooperative, healthy appearing, no acute distress, well developed, alert and awake Nutritional Appearance: thin Orientation/consciousness: patient oriented x3 HEENT: Head: Yes normal to inspection Eyes: General: appearance normal, both eyes and all related structures Pupils: Equal, round and reactive pupils present Neck: Neck: Yes normal visual inspection and Yes full ROM Resp: Effort & Inspection: normal respiratory effort and able to speak in complete sentences Auscultation: clear to auscultation bilaterally Cardio: Palpation: normal PMI Rate: regular rate Rhythm: regular rhythm Neuro: General: patient oriented x3 and moves all extremities Cranial nerves: Yes Equal, round and reactive pupils present Extrem: General: Yes normal to inspection and Yes no pedal edema Results Labs Labs: All other labs normal. Imaging EKG: report reviewed (NSR) Additional studies: CBC and BMP reviewed and WNL Assessment and Plan (1) Depression: Status: Acute Plan ROS and Exam grossly nml. Labs and EKG reviewed and WNL. No contraindication to ECT. Patient will f/u with PCP ThursdayOct 28. Procedures Date of Service Date of Service: 10/23/22
[2022-10-23 14:35] VITALS: BMI 22.1
[2022-10-24] VITALS (7 sets, daily range): BP systolic 134–161; BP diastolic 61–81; PULSE 64–78; RESP 12–24; TEMP 36.7–37.2; O2SAT 93–96; BMI 21.9
[2022-10-24 06:54] LABS: COVID-19 Test Negative (Negative); IDNOW Serial# BCCEAD1C
--- NOTE | 2022-10-24 07:05 | P.CONAN_ITS ---
[facility] Active Problems Active Problems: All Active Problems (Updated 10/23/22 @ 13:09 by Marilyn Barriga NP) Bipolar II disorder (Acute) ADHD (attention deficit hyperactivity disorder) (Acute) ZAC (generalized anxiety disorder) (Acute) Depression (Acute) Pre-op evaluation (Acute) Acute bacterial conjunctivitis of both eyes (Acute) Hypercalcemia (Acute) Hypothyroidism (Acute) Leukocytosis (Acute) Hypertension (Chronic) Past Medical History Medical History (Updated 10/23/22 @ 13:09 by Marilyn Barriga NP) ADHD (attention deficit hyperactivity disorder) Bipolar II disorder Depression ZAC (generalized anxiety disorder) Hypertension Hypothyroidism Family History Family History Other No pertinent family history Family history of problems with anesthesia: No Surgical History Surgical History (Updated 10/23/22 @ 13:09 by Marilyn Barriga NP) H/O cone biopsy of cervix H/O thumb surgery History of Problems with Anesthesia: No Social History Social History Household Members: Spouse Household Members Other:: And two cats. Housing: House Do you presently have visiting nurse or other home services: No Unable to assess alcohol history related to: Unknown Alcohol intake: never Patient Tobacco Use Status: Former Tobacco user Quit Date: 2013 Tobacco use type: Cigarette e-Cigarette/Vaping Use: Never Used Second Hand Smoke Exposure: No Substance Use Type: Marijuana Advance Directives: No Advance Directives Information Provided: Yes service: No Sexual orientation: Straight/Heterosexual Meds Allergies Allergy/AdvReac Type Severity Reaction Status Date / Time No Known Allergies Allergy Verified 09/24/21 12:18 Active Medications: Current Medications Lactated Ringer's (Lr) 1,000 mls @ 50 mls/hr IVCONT .Q20H [facility] Home Medications Medication Instructions Recorded Confirmed Last Taken Type amlodipine 5 mg tablet 1.5 tab PO DAILY 10/23/22 10/23/22 10/23/22 History bupropion HCl 150 mg 24 hr tablet, 1 tab PO DAILY 10/23/22 10/23/22 Unknown History extended release fluoxetine 10 mg capsule 40 mg PO DAILY 10/23/22 10/23/22 History mirtazapine 30 mg tablet 1 tab PO BEDTIME 10/23/22 10/23/22 10/23/22 History olanzapine 5 mg tablet 1 tab PO BEDTIME 10/23/22 10/23/22 10/23/22 History Exam Exam Date and Time: October 24, 2022704 Height,Weight and Vital Signs: Height 5 ft 1 in Weight 52.617 kg Last Vital Signs Temp 99 F 10/24/22 06:45 Pulse 70 10/24/22 06:45 Resp 18 10/24/22 06:45 BP 151/62 H 10/24/22 06:45 Pulse Ox 93 10/24/22 06:45 O2 Del Method 10/24/22 06:45 Pertinent Lab Results Pertinent Lab Results: Laboratory Tests 10/24/22 06:14 COVID-19 (REE) Negative COVID-19 Clin Com See Note Airway Mallampati Class: II (One cap bottom lateral) TM Dist: >3cm Neck ROM: Full Heart: rrr Lungs: cta Assessment and Plan Assessment Anesthesia Assessment: Anesthesia Plan Discussed and Chart Reviewed Final Anesthetic Review Family History of Problems with Anesthesia: No History of Problems with Anesthesia: No NPO: Yes ASA Class: III Final Preanesthetic Review: No Changes in Pt Med Stat, Meds/Allgs Chart Reviewed and Consent Obtained/Reviewed Patient Risk: Intermediate Procedure Risk: Intermediate Anesthetic Plan Anesthetic Plan: GA Disposition: Standard PACU
--- NOTE | 2022-10-24 07:53 | MHC.SHP ---
Pre-Procedural Eval Section A Date of Service: 10/24/22 The patient is an INPATIENT: No Changes since office visit: Yes Changes in Medication and Yes Patient answered all questions; No Cold of Flu in the past 2 weeks and No New Medical Problems The History & Physical has been completed within 30 days and I have reviewed it.: Yes Section B Chief Complaint: Major depressive disorder, recurrent, Allergies: Allergies Allergy/AdvReac Type Severity Reaction Status Date / Time No Known Allergies Allergy Verified 09/24/21 12:18 Plan I have reviewed the history and physical and performed a pertinent physical examination on my patient. No changes have occurred unless specified.
--- NOTE | 2022-10-24 07:53 | HO.ECTPROC ---
ECT Procedure Note Diagnosis/Treatment Date of Service: 10/24/22 Diagnosis: Bipolar disorder Current Treatment Number: 1 Treatment: Series Interval Clinical Notes: pt depressed withdrawn ECT Settings Device: THYMATRON DGx Electrode Placement: Right Unilateral Program/Pulse Width: 0.25 Energy Percent: 75 Seizure Duration By EEG (in seconds): 22 Medications Administration General Anesthetic: Etomidate (14) Muscle Relaxant: Succinylcholine (80) Ancillary Medications Anti-emetics: Zofran - Pre ECT Miscillaneous Medications: Propofol (30) Airway Management Airway Management: Bag Mask Ventilation Treatment Recommendations Electrode Placement: Right Unilateral Program/Pulse Width: 0.50 Notes: pt sedated post ect avoid propofol change to 0.5 pukse width rul
== END 2022-10-24 09:12 | disposition home or self-care (01) ==
PROVIDERS: PCP Internal Medicine; Visit Provider Psychiatry & Neurology Psychiatry
PROC: (CPT 90870; principal; 2022-10-24 08:00)
DX: F31.81 Bipolar II disorder (principal); I10 Essential (primary) hypertension; Z79.899 Other long term (current) drug therapy; Z20.822 Contact with and (suspected) exposure to COVID-19
CPT/HCPCS: 87635; 90870; J0330; J1885; J2250; J2405

== ENCOUNTER 2022-10-27 05:54 | Day surgery (SDC) | payer MEDICARE, SELFPAY ==
[2022-10-27] VITALS (8 sets, daily range): BP systolic 121–177; BP diastolic 56–78; PULSE 65–75; RESP 17–23; TEMP 36.3–37.2; O2SAT 92–99; BMI 21.9
[2022-10-27 06:47] LABS: COVID-19 Test Negative (Negative); IDNOW Serial# 16C4AD1C
--- NOTE | 2022-10-27 07:07 | MHC.SHP ---
Pre-Procedural Eval Section A Date of Service: 10/27/22 The patient is an INPATIENT: No Changes since office visit: No Cold of Flu in the past 2 weeks, No New Medical Problems, No Changes in Medication and No Patient answered all questions The History & Physical has been completed within 30 days and I have reviewed it.: Yes Section B Chief Complaint: Major depressive disorder, recurrent, severe with Allergies: Allergies Allergy/AdvReac Type Severity Reaction Status Date / Time No Known Allergies Allergy Verified 09/24/21 12:18 Plan I have reviewed the history and physical and performed a pertinent physical examination on my patient. No changes have occurred unless specified.
--- NOTE | 2022-10-27 07:08 | HO.ECTPROC ---
ECT Procedure Note Diagnosis/Treatment Date of Service: 10/27/22 Diagnosis: Major Depressive Disorder Previous ECT Date: 10/24/22 Current Treatment Number: 2 Treatment: Series Interval Clinical Notes: Still dysphoric, no evidence of improvement with the first ECT. She complained of nausea and headaches after first treatment. Changed parameters as per suggestion, still short seizure of 20 s motor and EEG. Time: Total time managing care of this patient today _30___ minutes. ECT Settings Device: THYMATRON DGx Electrode Placement: Right Unilateral Program/Pulse Width: 0.50 Energy Percent: 75 Seizure Duration By EEG (in seconds): 20 By Motor Observation (in seconds): 20 Medications Administration General Anesthetic: Etomidate (15) Muscle Relaxant: Succinylcholine (80) Ancillary Medications Anti-emetics: Zofran - Pre ECT Miscillaneous Medications: Propofol (15 and later 15 more) Airway Management Airway Management: Bag Mask Ventilation Treatment Recommendations Electrode Placement: Right Unilateral Program/Pulse Width: 0.50 Energy Percent: 80 Pt Tolerated Procedure w/o Issue: Yes
--- NOTE | 2022-10-27 07:30 | HO.ANESPROP2 ---
[facility] Active Problems Active Problems: All Active Problems (Updated 10/23/22 @ 13:09 by Marilyn Barriga NP) Bipolar II disorder (Acute) ADHD (attention deficit hyperactivity disorder) (Acute) ZAC (generalized anxiety disorder) (Acute) Depression (Acute) Pre-op evaluation (Acute) Acute bacterial conjunctivitis of both eyes (Acute) Hypercalcemia (Acute) Hypothyroidism (Acute) Leukocytosis (Acute) Hypertension (Chronic) Past Medical History Medical History (Updated 10/23/22 @ 13:09 by Marilyn Barriga NP) ADHD (attention deficit hyperactivity disorder) Bipolar II disorder Depression ZAC (generalized anxiety disorder) Hypertension Hypothyroidism Family History Family History Other No pertinent family history Family history of problems with anesthesia: No Surgical History Surgical History (Updated 10/23/22 @ 13:09 by Marilyn Barriga NP) H/O cone biopsy of cervix H/O thumb surgery History of Problems with Anesthesia: No Social History Social History Household Members: Spouse Household Members Other:: And two cats. Housing: House Do you presently have visiting nurse or other home services: No Unable to assess alcohol history related to: Unknown Alcohol intake: never Patient Tobacco Use Status: Former Tobacco user Quit Date: 2013 Tobacco use type: Cigarette e-Cigarette/Vaping Use: Never Used Second Hand Smoke Exposure: No Substance Use Type: Marijuana Advance Directives: No Advance Directives Information Provided: Yes service: No Sexual orientation: Straight/Heterosexual Meds Allergies Allergy/AdvReac Type Severity Reaction Status Date / Time No Known Allergies Allergy Verified 09/24/21 12:18 Home Medications Medication Instructions Recorded Confirmed Last Taken Type amlodipine 5 mg tablet 1.5 tab PO DAILY 10/23/22 10/23/22 10/23/22 History bupropion HCl 150 mg 24 hr tablet, 1 tab PO DAILY 10/23/22 10/23/22 Unknown History extended release fluoxetine 10 mg capsule 40 mg PO DAILY 10/23/22 10/23/22 History mirtazapine 30 mg tablet 1 tab PO BEDTIME 10/23/22 10/23/22 10/23/22 History olanzapine 5 mg tablet 1 tab PO BEDTIME 10/23/22 10/23/22 10/23/22 History Exam Exam Date and Time: October 27, 2022 0730 Height,Weight and Vital Signs: Height 5 ft 1 in Weight 52.617 kg Last Vital Signs Temp 98.9 F 10/27/22 06:37 Pulse 69 10/27/22 06:37 Resp 18 10/27/22 06:37 BP 150/73 H 10/27/22 06:37 Pulse Ox 94 10/27/22 06:37 O2 Del Method 10/27/22 06:37 Pertinent Lab Results Pertinent Lab Results: Laboratory Tests 10/27/22 06:17 COVID-19 (REE) Negative COVID-19 Clin Com See Note Airway Mallampati Class: III TM Dist: >3cm Neck ROM: Full Assessment and Plan Assessment Anesthesia Assessment: Anesthesia Plan Discussed and Chart Reviewed Final Anesthetic Review Family History of Problems with Anesthesia: No History of Problems with Anesthesia: No NPO: Yes ASA Class: III Final Preanesthetic Review: No Changes in Pt Med Stat, Meds/Allgs Chart Reviewed, Consent Obtained/Reviewed and Anes Risks/Benef Reviewed Patient Risk: Intermediate Procedure Risk: Low Anesthetic Plan Anesthetic Plan: GA Disposition: Standard PACU
== END 2022-10-27 08:56 | disposition home or self-care (01) ==
PROVIDERS: PCP Internal Medicine; Visit Provider Psychiatry & Neurology Psychiatry
PROC: (CPT 90870; principal; 2022-10-27 08:00)
DX: F33.3 Major depressive disorder, recurrent, severe with psychotic symptoms (principal); I10 Essential (primary) hypertension; Z79.899 Other long term (current) drug therapy; Z20.822 Contact with and (suspected) exposure to COVID-19
CPT/HCPCS: 87635; 90870; J0330; J2405

== ENCOUNTER 2022-10-29 05:51 | Day surgery (SDC) | payer MEDICARE, SELFPAY ==
[2022-10-29] VITALS (8 sets, daily range): BP systolic 138–186; BP diastolic 80–95; PULSE 68–101; RESP 16–24; TEMP 36.6–37.3; O2SAT 92–98; BMI 21.9
[2022-10-29 06:33] LABS: COVID-19 Test Negative (Negative); IDNOW Serial# BCCEAD1C
--- NOTE | 2022-10-29 07:30 | MHC.SHP ---
Pre-Procedural Eval Section A Date of Service: 10/29/22 The patient is an INPATIENT: No Changes since office visit: Yes Patient answered all questions; No Cold of Flu in the past 2 weeks, No New Medical Problems and No Changes in Medication The History & Physical has been completed within 30 days and I have reviewed it.: Yes Section B Chief Complaint: Major depressive disorder, recurrent, Allergies: Allergies Allergy/AdvReac Type Severity Reaction Status Date / Time No Known Allergies Allergy Verified 09/24/21 12:18 Plan I have reviewed the history and physical and performed a pertinent physical examination on my patient. No changes have occurred unless specified. Time Spent With Patient Time: Total time managing care of this patient today ____ minutes.
--- NOTE | 2022-10-29 07:31 | HO.PSYCHPN ---
Subjective Subjective Reason For Visit: Major depressive disorder, recurrent, Diagnostics Vital Signs (24Hr): Vital Signs - 24 hr 10/29/22 06:40 Temperature 98.7 F Pulse Rate 74 Respiratory Rate 16 Blood Pressure 181/83 H Pulse Oximetry 94 Oxygen Delivery Method Room Air BMI result Body Mass Index 21.9 Labs Labs: Laboratory Results - last 48 hr 10/29/22 06:12 COVID-19 (REE) Negative COVID-19 Clin Com See Note Medications Allergies Allergies Allergy/AdvReac Type Severity Reaction Status Date / Time No Known Allergies Allergy Verified 09/24/21 12:18 Assessment & Plan I spent minutes with the patient and/or on the patient floor today, greater than?50% of which was spent counseling/coordinating care. Time Spent With Patient Time: Total time managing care of this patient today ____ minutes.
--- NOTE | 2022-10-29 07:39 | HO.ECTPROC ---
ECT Procedure Note Diagnosis/Treatment Date of Service: 10/29/22 Diagnosis: Bipolar disorder Previous ECT Date: 10/27/22 Current Treatment Number: 3 Treatment: Series Interval Clinical Notes: ? some improvement no cognitivbe side effects Time: Total time managing care of this patient today ____ minutes. ECT Settings Device: THYMATRON DGx Electrode Placement: Right Unilateral Program/Pulse Width: 0.50 Energy Percent: 100 Seizure Duration By EEG (in seconds): 26 Medications Administration General Anesthetic: Etomidate (14) Muscle Relaxant: Succinylcholine (80) Ancillary Medications Anti-emetics: Zofran - Pre ECT Miscillaneous Medications: Propofol Airway Management Airway Management: Bag Mask Ventilation Treatment Recommendations Program/Pulse Width: 0.50 Notes: consider bifrontal lower etomidate zofran sent to pharmacy Pt Tolerated Procedure w/o Issue: Yes
--- NOTE | 2022-10-29 08:19 | HO.ANESPROP2 ---
[facility] Active Problems Active Problems: All Active Problems (Updated 10/23/22 @ 13:09 by Marilyn Barriga NP) Bipolar II disorder (Acute) ADHD (attention deficit hyperactivity disorder) (Acute) ZAC (generalized anxiety disorder) (Acute) Depression (Acute) Pre-op evaluation (Acute) Acute bacterial conjunctivitis of both eyes (Acute) Hypercalcemia (Acute) Hypothyroidism (Acute) Leukocytosis (Acute) Hypertension (Chronic) Past Medical History Medical History ADHD (attention deficit hyperactivity disorder) Bipolar II disorder Depression ZAC (generalized anxiety disorder) Hypertension Hypothyroidism Functional capacity: independent ambulation Patient : No Family History Family History Other No pertinent family history Family history of problems with anesthesia: No Surgical History Surgical History H/O cone biopsy of cervix H/O thumb surgery History of Problems with Anesthesia: No Social History Social History Household Members: Spouse Household Members Other:: And two cats. Housing: House Do you presently have visiting nurse or other home services: No Unable to assess alcohol history related to: Unknown Alcohol intake: never Patient Tobacco Use Status: Former Tobacco user Quit Date: 2013 Tobacco use type: Cigarette e-Cigarette/Vaping Use: Never Used Second Hand Smoke Exposure: No Substance Use Type: Marijuana Advance Directives: No Advance Directives Information Provided: Yes service: No Sexual orientation: Straight/Heterosexual Meds Allergies Allergy/AdvReac Type Severity Reaction Status Date / Time No Known Allergies Allergy Verified 09/24/21 12:18 Home Medications Medication Instructions Recorded Confirmed Last Taken Type amlodipine 5 mg tablet 1.5 tab PO DAILY 10/23/22 10/23/22 10/23/22 History bupropion HCl 150 mg 24 hr tablet, 1 tab PO DAILY 10/23/22 10/23/22 Unknown History extended release fluoxetine 10 mg capsule 40 mg PO DAILY 10/23/22 10/23/22 History mirtazapine 30 mg tablet 1 tab PO BEDTIME 10/23/22 10/23/22 10/23/22 History olanzapine 5 mg tablet 1 tab PO BEDTIME 10/23/22 10/23/22 10/23/22 History Exam Exam Date and Time: October 29, 2022818 Height,Weight and Vital Signs: Height 5 ft 1 in Weight 52.617 kg Last Vital Signs Temp 97.9 F 10/29/22 07:55 Pulse 92 10/29/22 08:10 Resp 22 H 10/29/22 08:10 BP 185/90 H 10/29/22 08:10 Pulse Ox 96 10/29/22 08:10 O2 Del Method 10/29/22 08:10 O2 Flow Rate 2 10/29/22 08:10 Pertinent Lab Results Pertinent Lab Results: Laboratory Tests 10/29/22 06:12 COVID-19 (REE) Negative COVID-19 Clin Com See Note Airway Mallampati Class: II TM Dist: >3cm Neck ROM: Full Heart: RRR Lungs: CTA Assessment and Plan Final Anesthetic Review Family History of Problems with Anesthesia: No History of Problems with Anesthesia: No ASA Class: III Final Preanesthetic Review: No Changes in Pt Med Stat, Meds/Allgs Chart Reviewed, Consent Obtained/Reviewed and Anes Risks/Benef Reviewed Patient Risk: Low Anesthetic Plan Anesthetic Plan: GA Disposition: Standard PACU
--- NOTE | 2022-10-29 08:20 | HO.POSTANES ---
Post Anesthesia Evaluation Post Anesthesia Evaluation Vital Signs: Vital Signs Temp Pulse Resp BP Pulse Ox O2 Del Method O2 Flow Rate 10/29/22 08:10 92 22 H 185/90 H 96 Nasal Cannula with ETCO2 2 10/29/22 08:05 90 24 H 186/95 H 96 Nasal Cannula with ETCO2 2 10/29/22 08:00 85 22 H 138/80 96 Nasal Cannula with ETCO2 2 10/29/22 07:55 97.9 F 68 17 160/80 H 98 Nasal Cannula with ETCO2 3 10/29/22 06:40 98.7 F 74 16 181/83 H 94 Room Air Anesthesia: General Mental Status: Awake Pain Control: Satisfactory Nausea/Vomiting: None Hydration: Adequate Anesthesia-Related Issues: No Anes. Related Issues
--- NOTE | 2022-10-29 09:34 | PC.NURSE ---
PATIENT CONFUSED AFTER PROCEDURE. DR. KELLY ASSESSED PATIENT PRIOR TO DISCHARGE. AFTER DR. KELLY LEFT PATIENT REPORTED NAUSEA. REQUESTED ORDER FOR ZOFRAN PRIOR TO PATIENT'S DISCHARGE.
[2022-10-29] MEDS: Ondansetron ODT 4 MG TAB.RAPDIS TRANSLINGU (09:43)
--- NOTE | 2022-10-29 09:44 | PC.NURSE ---
PT GIVEN ZOFRAN PER ORDER PRIOR TO DISCHARGE FOR COMPLAINT OF NAUSEA.
--- NOTE | 2022-10-29 10:08 | PC.NURSE ---
PATIENT REPORTS NO NAUSEA AFTER ZOFRAN GIVEN. PATIENT DISCHARGED.
== END 2022-10-29 10:10 | disposition home or self-care (01) ==
PROVIDERS: PCP Internal Medicine; Visit Provider Psychiatry & Neurology Psychiatry
PROC: (CPT 90870; principal; 2022-10-29 07:30)
DX: F31.81 Bipolar II disorder (principal); F90.9 Attention-deficit hyperactivity disorder, unspecified type; F41.1 Generalized anxiety disorder; I10 Essential (primary) hypertension; E03.9 Hypothyroidism, unspecified; Z20.822 Contact with and (suspected) exposure to COVID-19; F12.90 Cannabis use, unspecified, uncomplicated; Z87.891 Personal history of nicotine dependence
CPT/HCPCS: 87635; 90870; J0330; J2405

== ENCOUNTER 2022-11-03 | Outpatient (REF) | payer MEDICARE, SELFPAY ==
--- NOTE | 2022-11-03 14:03 | HO.PSYCHPN ---
Subjective Subjective Reason For Visit: Major depressive disorder, recurrent, Medications Allergies Allergies Allergy/AdvReac Type Severity Reaction Status Date / Time No Known Allergies Allergy Verified 09/24/21 12:18 Assessment & Plan I spent minutes with the patient and/or on the patient floor today, greater than?50% of which was spent counseling/coordinating care. Time Spent With Patient Time: Total time managing care of this patient today ____ minutes.
== END 2022-11-03 00:01 | disposition home or self-care (01) ==
LOC: CF
PROVIDERS: PCP Internal Medicine; Visit Provider Psychiatry & Neurology Psychiatry
DX: F33.3 Major depressive disorder, recurrent, severe with psychotic symptoms (principal); F41.1 Generalized anxiety disorder; R41.3 Other amnesia
CPT/HCPCS: 90833; 99212

== ENCOUNTER 2022-11-07 | Outpatient (REF) | payer MEDICARE, SELFPAY | END 2022-11-07 00:01 | disposition home or self-care (01) | LOC: CF | PROVIDERS: PCP Internal Medicine; Visit Provider Psychiatry & Neurology Psychiatry | DX: F33.3 Major depressive disorder, recurrent, severe with psychotic symptoms (principal); F90.9 Attention-deficit hyperactivity disorder, unspecified type; F41.1 Generalized anxiety disorder | CPT/HCPCS: 99212 ==

== ENCOUNTER → 2022-11-18 15:58 | Outpatient (BNVA) | payer MEDICARE, SELFPAY | PROVIDERS: PCP Internal Medicine; Visit Provider Psychiatry & Neurology Psychiatry | DX: F31.81 Bipolar II disorder (principal); F90.9 Attention-deficit hyperactivity disorder, unspecified type; F41.1 Generalized anxiety disorder; I10 Essential (primary) hypertension; E03.9 Hypothyroidism, unspecified | CPT/HCPCS: 99212 ==

== ENCOUNTER → 2022-12-02 13:47 | Outpatient (BNVA) | payer MEDICARE, SELFPAY | PROVIDERS: PCP Internal Medicine; Visit Provider Psychiatry & Neurology Psychiatry | DX: F31.81 Bipolar II disorder (principal); E03.9 Hypothyroidism, unspecified; I10 Essential (primary) hypertension | CPT/HCPCS: 99212 ==

== ENCOUNTER → 2022-12-25 14:17 | Outpatient (REF) | payer MEDICARE, SELFPAY ==
--- NOTE | 2022-12-25 15:34 | ECG_ITS ---
Test Reason : gen. anxiety dis Blood Pressure : / mmHG Vent. Rate : 091 BPM Atrial Rate : 091 BPM P-R Int : 130 ms QRS Dur : 082 ms QT Int : 364 ms P-R-T Axes : 063 056 050 degrees QTc Int : 447 ms Normal sinus rhythm Normal ECG When compared with ECG of 26-SEP-2022 10:44, No significant change was found Referred By: Yovany Shearer Electronically Signed By:DAVION VUONG MD
== END ==
LOC: HO.CARD 14:17
PROVIDERS: PCP Internal Medicine; Visit Provider Psychiatry & Neurology Psychiatry
DX: F41.1 Generalized anxiety disorder (principal); I10 Essential (primary) hypertension
CPT/HCPCS: 93005

== ENCOUNTER → 2022-12-31 12:52 | Outpatient (BNVA) | payer MEDICARE, SELFPAY | PROVIDERS: PCP Internal Medicine; Visit Provider Psychiatry & Neurology Psychiatry | DX: F32.A Depression, unspecified (principal); F41.1 Generalized anxiety disorder; Z79.899 Other long term (current) drug therapy | CPT/HCPCS: 90833; 99212 ==

== ENCOUNTER 2023-01-12 11:29 | Outpatient (REF) | payer MEDICARE, SELFPAY ==
[2023-01-12 13:06] LABS: Estimated Average Glucose 114 mg/dL; Hemoglobin A1c % 5.6 %
[2023-01-12 13:28] LABS: Alanine Aminotransferase 20 U/L (0-31); Albumin Level 4.1 g/dL (3.5-5.0); Alkaline Phosphatase 104 U/L (39-117); Anion Gap 12 (12-20); Aspartate Amino Transferase 21 U/L (5-31); Bilirubin Total 0.2 mg/dL (0.0-1.0); Blood Urea Nitrogen 13 mg/dL (9-16); Carbon Dioxide 25 mmol/L (22-29); Chloride 108 mmol/L (96-108); Estimated Glomerular Filt Rate > 60; Glucose Fasting 78 mg/dL (60-99); Potassium 4.3 mmol/L (3.3-5.1); Sodium 141 mmol/L (135-145); Total Protein 6.5 g/dL (6.5-8.0)
[2023-01-12 13:37] LABS: TSH reflex Free T4 0.34 uIU/mL (0.32-4.0)
[2023-01-12 14:06] LABS: Appearance Urine Cloudy; Color Urine Yellow; Glucose Urine UA Negative (Negative); Leukocyte Esterase Urine Large (3+) (Negative); Nitrite Urine Negative (Negative); PH 6.5 (5.0-9.0); UMIC TRIGGER UA YES; Urine Blood Negative (Negative); Urine Ketones Negative (Negative); Urine Protein Negative (Neg-Trace)
[2023-01-12 14:22] LABS: Bacteria Urine 2+ (None Seen); Hyaline Casts Urine 0-2 /LPF (0-2); RBC Urine 0-2 /HPF (0-2); WBC Urine 21-50 /HPF (0-5)
[2023-01-16 23:15] LABS: Nortriptyline 140 mcg/L (50-150)
== END 2023-01-12 11:30 | disposition home or self-care (01) ==
LOC: HO.LAB 11:29
PROVIDERS: PCP Internal Medicine; Visit Provider Psychiatry & Neurology Psychiatry
DX: F31.81 Bipolar II disorder (principal); F90.9 Attention-deficit hyperactivity disorder, unspecified type; F41.1 Generalized anxiety disorder; E03.9 Hypothyroidism, unspecified; I10 Essential (primary) hypertension; Z79.899 Other long term (current) drug therapy
CPT/HCPCS: 36415; 80053; 80178; 80335; 81001; 81003; 83036; 84443; 90833; 99212

== ENCOUNTER → 2023-01-22 13:47 | Outpatient (BNVA) | payer MEDICARE, SELFPAY | PROVIDERS: PCP Internal Medicine; Visit Provider Psychiatry & Neurology Psychiatry ==

== ENCOUNTER → 2023-02-05 14:21 | Outpatient (BNVA) | payer MEDICARE, SELFPAY | PROVIDERS: PCP Internal Medicine; Visit Provider Psychiatry & Neurology Psychiatry | DX: F33.2 Major depressive disorder, recurrent severe without psychotic features (principal); R41.3 Other amnesia; F90.9 Attention-deficit hyperactivity disorder, unspecified type | CPT/HCPCS: 90833; 99212 ==

== ENCOUNTER → 2023-03-26 16:41 | Outpatient (BNVA) | payer MEDICARE, SELFPAY | PROVIDERS: PCP Internal Medicine; Visit Provider Psychiatry & Neurology Psychiatry | DX: F32.5 Major depressive disorder, single episode, in full remission (principal); F41.1 Generalized anxiety disorder | CPT/HCPCS: 99212 ==

== ENCOUNTER 2023-06-15 13:43 | Outpatient (REF) | payer MEDICARE, SELFPAY ==
[2023-06-15 15:03] LABS: Alanine Aminotransferase 26 U/L (0-31); Albumin Level 3.9 g/dL (3.5-5.0); Alkaline Phosphatase 113 U/L (39-117); Anion Gap 14 (12-20); Aspartate Amino Transferase 19 U/L (5-31); Bilirubin Total 0.1 mg/dL (0.0-1.0); Blood Urea Nitrogen 16 mg/dL (9-16); Calcium 9.6 mg/dL (8.4-10.2); Carbon Dioxide 24 mmol/L (22-29); Chloride 106 mmol/L (96-108); Estimated Glomerular Filt Rate > 60; Glucose Random 98 mg/dL (60-115); Potassium 3.9 mmol/L (3.3-5.1); Sodium 140 mmol/L (135-145); Total Protein 6.7 g/dL (6.5-8.0)
== END 2023-06-15 13:44 | disposition home or self-care (01) ==
LOC: HO.LAB 13:43
PROVIDERS: Visit Provider Psychiatry & Neurology Psychiatry
DX: F32.5 Major depressive disorder, single episode, in full remission (principal); F41.1 Generalized anxiety disorder; F90.9 Attention-deficit hyperactivity disorder, unspecified type; Z79.899 Other long term (current) drug therapy
CPT/HCPCS: 36415; 80053; 80178; 84443; 99212

== ENCOUNTER 2023-06-15 21:04 | Outpatient (AMB) | payer MEDICARE, SELFPAY ==
--- NOTE | 2023-06-15 13:49 | A.OFFPSYCH_ITS ---
Intake Intake Visit Reasons: Depression Allergies No Known Allergies Allergy (Verified 09/24/21 12:18) Medication List - Last Reconciled 06/15/23 by Yovany Shearer MD amlodipine 1.5 tabs PO DAILY ascorbic acid (vitamin C) (Vitamin C) 2,000 mg (4 x 500 mg) PO BEDTIME 30 days brexpiprazole (Rexulti) 0.5 mg PO DAILY estradiol (Yuvafem) 10 mcg vaginal MOTH@1000 fluoxetine 80 mg (2 x 40 mg) PO DAILY 90 days lithium carbonate 300 mg PO BEDTIME 90 days lorazepam 0.5 mg PO TID-QID PRN multivitamin (Daily-Dara tablet) 1 tab PO DAILY 30 days nortriptyline 30 mg (3 x 10 mg) PO BEDTIME ondansetron HCl 4 mg PO BID PRN 5 days propranolol 20 mg PO BID 90 days HPI- Psychiatric Chief Complaint: Depression Intake Note: Patient seen with her has been doing quite well HPI Narrative: Patient status post knee replacement has been doing quite well has been on nortriptyline 30 mg Rexulti 0.5 mg fluoxetine 80 mg and has been quite stable. Patient feeling back to herself no breakthrough symptoms generally except recently had some anxiety regarding the condition of her teeth and fears that she was going to require a large amount of oral surgery that would cost a lot of money . Patient's sleep appetite concentration ability to tolerate stress generally good. Has been again running car came at the [employer] feels much more like herself. Past Psychiatric History: -Pt sees Dr. Shearer in OP setting recent hospitalization at [facility] Has had often on relapses over the past year and half -Remote hx of [facility] 12 yrs ago, [place] [facility] [place] with at least 4 admissions in the last 2 years Mental Status Exam Mental Status Exam Narrative: Mental Status Exam Narrative: Appearance: Casually dressed Behavior: Cooperative appropriate psychomotor: Within normal limits Speech: Normal volume and prosody Thought proccess logical and goal-directed Thought content: Future oriented no self-harming thoughts some mild preoccupation with potential need for oral surgery and condition of her mouth Mood: Euthymic generally minimal anxiety Affect: Appropriate to mood full affect some anxiety SI:denies HI:denies VH/AH:none Delusions: None Insight/judgment: Good insight and judgment cannot really explain why relatively small triggers can have her become obsessional E ruminating Memory/cog: Intact Assessment and Plan Assessment & Plan (1) Major depression in full remission: Status: Acute Code(s): F32.5 - Major depressive disorder, single episode, in full remission (2) ADHD (attention deficit hyperactivity disorder): Status: Acute Code(s): F90.9 - Attention-deficit hyperactivity disorder, unspecified type (3) ZAC (generalized anxiety disorder): Status: Acute Code(s): F41.1 - Generalized anxiety disorder Plan Patient quite stable some minimal anxiety rumination have asked her to work with her therapist to try to keep her small periods of anxiety from accelerating continue current medications appear to be stabilizing check labs lithium TSH Orders: Orders Comprehensive Met. Panel 06/15/23 F32.5 - Major depressive disorder, single episode, in full remission, F90.9 - Attention-deficit hyperactivity disorder, unspecified type, F41.1 - Generalized anxiety disorder TSH reflex Free T4 06/15/23 F32.5 - Major depressive disorder, single episode, in full remission, F90.9 - Attention-deficit hyperactivity disorder, unspecified type, F41.1 - Generalized anxiety disorder Claude 06/15/23 F32.5 - Major depressive disorder, single episode, in full remission, F90.9 - Attention-deficit hyperactivity disorder, unspecified type, F41.1 - Generalized anxiety disorder Counseling and coordination of Care Pt. Self Management counseling: Cognitive restructuring Medication management counseling: Effectiveness Diagnosis and Prognosis Counseling: Problematic behaviors secondary to diagnosis and Adequacy of current interventions Details: I spent [30] minutes reviewing the record, seeing the patient and documenting in the medical record. Counseling provided to the patient/caregiver as outlined below. Addressed patient/caregiver concerns regarding current medication regime including effective adherence. Addressed patient/caregiver concerns regarding diagnosis and prognosis including accuracy of diagnosis, prognosis over time, impact of diagnosis. Addressed patient/caregiver concerns regarding impact of recent stressors. [facility] Medical History (Updated 05/18/23 @ 23:07 by Yovany Shearer MD) ADHD (attention deficit hyperactivity disorder) Depression ZAC (generalized anxiety disorder) Hypertension Hypothyroidism Surgical History H/O cone biopsy of cervix H/O thumb surgery Family History Other No pertinent family history Social History Household Members: Spouse Household Members Other:: And two cats. 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
== END 2023-06-15 21:04 | disposition home or self-care (01) ==
LOC: HO.HOP 21:04
PROVIDERS: PCP Internal Medicine; Visit Provider Psychiatry & Neurology Psychiatry
DX: F32.5 Major depressive disorder, single episode, in full remission (principal); F90.9 Attention-deficit hyperactivity disorder, unspecified type; F41.1 Generalized anxiety disorder
CPT/HCPCS: 99214

== ENCOUNTER 2023-07-01 11:25 | Outpatient (AMB) | payer MEDICARE, SELFPAY ==
--- NOTE | 2023-07-13 03:42 | A.OFFPSYCH_ITS ---
Intake Intake Visit Reasons: depression Allergies No Known Allergies Allergy (Verified 09/24/21 12:18) Medication List - Last Reconciled 07/13/23 by Yovany Shearer MD alprazolam 0.25 mg PO TID PRN amlodipine 1.5 tabs PO DAILY ascorbic acid (vitamin C) (Vitamin C) 2,000 mg (4 x 500 mg) PO BEDTIME 30 days brexpiprazole 1 mg PO BID estradiol (Yuvafem) 10 mcg vaginal MOTH@1000 fluoxetine 80 mg (2 x 40 mg) PO DAILY 90 days lithium carbonate 300 mg PO BEDTIME 90 days lorazepam 0.5 mg PO TID-QID PRN multivitamin (Daily-Dara tablet) 1 tab PO DAILY 30 days nortriptyline 30 mg (3 x 10 mg) PO BEDTIME ondansetron HCl 4 mg PO BID PRN 5 days propranolol 20 mg PO BID 90 days HPI- Psychiatric Chief Complaint: depression Intake Note: 07/01/23 Patient has relapsed with depressive symptoms and anxiety HPI Narrative: The patient was recently seen and appear to have stabilized for an extended period of time unfortunately had been obsessing about dental work that she needed done fearful that it would require extensive work throughout her home male with and costs large sums of money and this apparently was enough to trigger a new episode with significant symptoms . Patient has been depressed ruminating often spending time in bed having difficulty with sleep at night. No psychotic symptoms no nallely no longer ruminating about the dentist able to put that in perspective but feels like she has suffered a full-blown sudden relapse with lethargy poor concentration attention motivation significant depressed and anxious mood and has stopped her regular functioning PHQ-9 22 no SI no psychosis she ADD significantly elevated. Past Psychiatric History: -Pt sees Dr. Shearer in OP setting recent hospitalization at the [facility] Has had often on relapses over the past year and half -Remote hx of [facility] 12 yrs ago, recent admissions at [facility] since 2020 with at least 4 admissions in the last 2 years Mental Status Exam Mental Status Exam Narrative: Sad looking Patient Appearance: Appropriate Patient Orientation: Person, Place, Time and Situation Level of Consciousness: Awake and Appropriate Mood Description: Depressed and Blunted Affect Description: Constricted, Anxious and Apprehensive Patient Cognition Impaired: No Ability to Follow Directions: Fair (Difficulty with concentration) Speech Pattern: Clear Memory Description: Working Impaired Hallucinations: None Delusions: Not Present Thought Process: Intact and Rumination Thought Content: positive for Goal Oriented, positive for Preoccupation, negative for Suicidal Ideation or negative for Homicidal Ideation Depressive Symptoms: Increased Anxiety, Increased Irritability, Hopelessness, Increased Fatigue, Loss of Energy and Difficulty Concentrating Judgement: Fair Assessment and Plan Assessment & Plan (1) Depression, major, severe recurrence: Status: Acute Code(s): F33.2 - Major depressive disorder, recurrent severe without psychotic features Plan The patient has again suffered a fairly sudden relapse with minimal stressors unfortunately. We discussed increasing Rexulti up to 2 mg as tolerated had been up to 1 mg increased to 1.5 mg then 2 mg as tolerated. Severe anxiety hopelessness helplessness and despair no SI. Discussed with patient and her and call placed to Dr. Bustillo to see if patient can get in fairly quickly for spravato she had had a previous consultation and she and her had reviewed literature nortriptyline is at the high end of normal with not be able to increase Prozac 80 mg Medications: Changed From brexpiprazole 0.5 mg PO DAILY 90 tabs 1RF To brexpiprazole 1 mg PO BID 60 tabs 2RF Counseling and coordination of Care Pt. Self Management counseling: Breathing, Mindfulness, Sleep hygiene, Behavior activation and Cognitive restructuring Details-Self Mgmt counseling: Encourage staying out of bed during the day daily walk reviewed option of hospitalization if needed Medication management counseling: Effectiveness and Side effects Diagnosis and Prognosis Counseling: Impact of family relationship, Problematic behaviors secondary to diagnosis and Adequacy of current interventions Details-Diagnosis/Prognosis counseling: Reviewed treatment options had responded previously it seems the combination of Prozac nortriptyline and Rexulti. Increase Rexulti as tolerated. Also reviewed risks of orthostatic changes stay hydrated get up slowly Referral for spravato consider inpatient if needed Details: I spent [40] minutes reviewing the record, seeing the patient and documenting in the medical record. Counseling provided to the patient/caregiver as outlined below. Addressed patient/caregiver concerns regarding current medication regime including effective adherence. Addressed patient/caregiver concerns regarding diagnosis and prognosis including accuracy of diagnosis, prognosis over time, impact of diagnosis. Addressed patient/caregiver concerns regarding impact of recent stressors. [facility] Medical History (Updated 05/18/23 @ 23:07 by Yovany Shearer MD) ADHD (attention deficit hyperactivity disorder) Depression ZAC (generalized anxiety disorder) Hypertension Hypothyroidism Surgical History H/O cone biopsy of cervix H/O thumb surgery Family History Other No pertinent family history Social History Household Members: Spouse Household Members Other:: And two cats. 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
== END 2023-07-01 16:19 | disposition home or self-care (01) ==
LOC: HO.HOP 11:25
PROVIDERS: PCP Internal Medicine; Visit Provider Psychiatry & Neurology Psychiatry
DX: F33.2 Major depressive disorder, recurrent severe without psychotic features (principal)
CPT/HCPCS: 90833; 99213

== ENCOUNTER → 2023-07-01 11:25 | Outpatient (BNVA) | payer MEDICARE, SELFPAY | PROVIDERS: PCP Internal Medicine; Visit Provider Psychiatry & Neurology Psychiatry | DX: F33.2 Major depressive disorder, recurrent severe without psychotic features (principal); F41.9 Anxiety disorder, unspecified | CPT/HCPCS: 90833; 99212 ==

== ENCOUNTER 2023-07-14 15:17 | Outpatient (AMB) | payer MEDICARE, SELFPAY ==
--- NOTE | 2023-07-14 15:49 | A.OFFPSYCH_ITS ---
Intake Intake Visit Reasons: depression Intake Note: Pt seen with her Allergies No Known Allergies Allergy (Verified 09/24/21 12:18) HPI- Psychiatric Chief Complaint: depression HPI Narrative: The patient is a 72-year-old female history of recurrent depression seen with her . Patient's mood continues to be depressed anxious ruminating only getting out of bed as for periods of time. The patient has not responded to combination nortriptyline Rexulti fluoxetine 80 mg. Patient is tremulous with rigidity bradykinesia Past Psychiatric History: -Pt sees Dr. Shearer in OP setting recent hospitalization at the [facility] Has had often on relapses over the past year and half -Remote hx of [facility] 12 yrs ago, recent admissions at [facility] since 2020 with at least 4 admissions in the last 2 years Mental Status Exam Mental Status Exam Narrative: Sad looking tremulous Patient Appearance: Appropriate Patient Orientation: Person, Place, Time and Situation Level of Consciousness: Awake and Restless Patient Behavior: Passive Mood Description: Depressed and Blunted Affect Description: Constricted, Anxious and Apprehensive Patient Cognition Impaired: No Ability to Follow Directions: Fair (Difficulty with concentration) Speech Pattern: Clear Memory Description: Working Impaired Hallucinations: None Delusions: Not Present Thought Process: Intact, Rumination and Slowed Thinking Thought Content: negative for Flight of Ideas, positive for Goal Oriented, positive for Preoccupation, negative for Suicidal Ideation or negative for Homicidal Ideation Depressive Symptoms: Increased Anxiety, Increased Irritability, Hopelessness, Increased Fatigue, Loss of Energy and Difficulty Concentrating Judgement: Fair Judgement and Insight: Tremulous low energy some orthostasis on exam Assessment and Plan Assessment & Plan (1) Depression, major, severe recurrence: Status: Acute Code(s): F33.2 - Major depressive disorder, recurrent severe without psychotic features (2) ADHD (attention deficit hyperactivity disorder): Status: Acute Code(s): F90.9 - Attention-deficit hyperactivity disorder, unspecified type (3) ZAC (generalized anxiety disorder): Status: Acute Code(s): F41.1 - Generalized anxiety disorder Plan Patient tremulous mild rigidity no improvement on 2 mg of Rexulti having some significant side effects will decrease to 0.5 mg twice a day lower nortriptyline to 20 mg a day. Encourage staying out of bed as much as possible time in the garden daily walk as safe in possible. Patient was referred to [facility] and [place] Medications: Changed From brexpiprazole 1 mg PO BID 60 tabs 2RF To brexpiprazole 0.5 mg (1/2 x 1 mg) PO BID 60 tabs 2RF Counseling and coordination of Care Pt. Self Management counseling: Breathing and Behavior activation Medication management counseling: Effectiveness Diagnosis and Prognosis Counseling: Problematic behaviors secondary to diagnosis and Adequacy of current interventions Details: I spent [39] minutes reviewing the record, seeing the patient and documenting in the medical record. Counseling provided to the patient/caregiver as outlined below. Addressed patient/caregiver concerns regarding current medication regime including effective adherence. Addressed patient/caregiver concerns regarding diagnosis and prognosis including accuracy of diagnosis, prognosis over time, impact of diagnosis. Addressed patient/caregiver concerns regarding impact of recent stressors. [facility] Medical History (Updated 05/18/23 @ 23:07 by Yovany Shearer MD) Depression Hypothyroidism ZAC (generalized anxiety disorder) Hypertension ADHD (attention deficit hyperactivity disorder) Surgical History H/O thumb surgery H/O cone biopsy of cervix Family History Other No pertinent family history Social History Household Members: Spouse Household Members Other:: And two cats. 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
== END 2023-07-14 16:29 | disposition home or self-care (01) ==
LOC: HO.HOP 15:17
PROVIDERS: PCP Internal Medicine; Visit Provider Psychiatry & Neurology Psychiatry
DX: F33.2 Major depressive disorder, recurrent severe without psychotic features (principal); F90.9 Attention-deficit hyperactivity disorder, unspecified type; F41.1 Generalized anxiety disorder
CPT/HCPCS: 90833; 99213

== ENCOUNTER → 2023-07-14 15:17 | Outpatient (BNVA) | payer MEDICARE, SELFPAY | PROVIDERS: PCP Internal Medicine; Visit Provider Psychiatry & Neurology Psychiatry | DX: F33.2 Major depressive disorder, recurrent severe without psychotic features (principal); F90.9 Attention-deficit hyperactivity disorder, unspecified type; F41.1 Generalized anxiety disorder; Z79.899 Other long term (current) drug therapy | CPT/HCPCS: 90833; 99212 ==

== ENCOUNTER 2023-07-22 17:32 | Outpatient (AMB) | payer MEDICARE, SELFPAY ==
--- NOTE | 2023-07-22 17:15 | A.OFFPSYCH_ITS ---
Intake Intake Visit Reasons: depression Allergies No Known Allergies Allergy (Verified 09/24/21 12:18) HPI- Psychiatric Chief Complaint: depression HPI Narrative: Patient seen with her no clear improvement with clomipramine hopefully will be starting spravato with Dr. Rodríguez referral to [facility]. Pt remains quite anxious and ddepressed lethargic amotivational Past Psychiatric History: -Pt sees Dr. Shearer in OP setting recent Assessment and Plan Assessment & Plan Mental Status Exam Mental Status Exam Narrative: Sad looking anxipous tremor noted Patient Appearance: Appropriate Level of Consciousness: Awake and Restless Patient Behavior: Passive Mood Description: Depressed, Blunted and Apprehensive Affect Description: Constricted, Anxious and Apprehensive Counseling and coordination of Care Speech Pattern: Clear Memory Description: Working Impaired Hallucinations: None Delusions: Not Present Thought Process: Intact, Rumination and Slowed Thinking Thought Content: negative for Flight of Ideas, positive for Goal Oriented, positive for Preoccupation, negative for Suicidal Ideation or negative for Homicidal Ideation Depressive Symptoms: Increased Anxiety, Increased Irritability, Hopelessness, Increased Fatigue, Loss of Energy and Difficulty Concentrating Judgement: Fair Judgement and Insight: [facility] Assessment and Plan Assessment & Plan (1) Depression, major, severe recurrence: Status: Acute Code(s): ADHD (attention deficit hyperactivity disorder) Status: Acute Code(s): (3) ZAC (generalized anxiety disorder): Status: Acute Code(s): Plan Taper nortriptyline not effective clomipramine 25 mg at bedtime fluoxetine 80 mg daily low-dose Rexulti Medications: New clomipramine 25 mg PO BEDTIME 30 caps 1RF F33.2 - Major depressive disorder, recurrent severe without psychotic features, F41.1 - Generalized anxiety disorder Counseling and coordination of Care Pt. Self Management counseling: Sleep hygiene and Behavior activation Diagnosis and Prognosis Counseling: Impact of diagnosis on life functions, Problematic behaviors secondary to diagnosis and Adequacy of current interventions Details: I spent [38] minutes reviewing the record, seeing the patient and documenting in the medical record. Counseling provided to the patient/caregiver as outlined below. Addressed patient/caregiver concerns regarding current medication regime including effective adherence. Addressed patient/caregiver concerns regarding diagnosis and prognosis including accuracy of diagnosis, prognosis over time, impact of diagnosis. Addressed patient/caregiver concerns regarding impact of recent stressors. [facility] Medical History (Updated 07/03/23 @ 23:07 by Yovany Shearer MD) Depression Hypothyroidism ZAC (generalized anxiety disorder) Hypertension
--- NOTE | 2023-07-22 17:15 | MHC.OFFVISPS ---
Intake Intake Visit Reasons: depression Allergies No Known Allergies Allergy (Verified 09/24/21 12:18) HPI- Psychiatric Chief Complaint: depression HPI Narrative: Patient seen with her no clear improvement with clomipramine hopefully will be starting spravato with Dr. Rodríguez referral to [facility]. Pt remains quite anxious and ddepressed lethargic amotivational Past Psychiatric History: -Pt sees Dr. Shearer in OP setting recent hospitalization at the [place] [facility] Has had often on relapses over the past year and half -Remote hx of IPLOC 12 yrs ago, recent admissions at [facility] [place] since 2020 with at least 4 admissions in the last 2 years Mental Status Exam Mental Status Exam Narrative: Sad looking anxipous tremor noted Patient Appearance: Appropriate Patient Orientation: Person, Place, Time and Situation Level of Consciousness: Awake and Restless Patient Behavior: Passive Mood Description: Depressed, Blunted and Apprehensive Affect Description: Constricted, Anxious and Apprehensive Patient Cognition Impaired: No Ability to Follow Directions: Fair (Difficulty with concentration) Speech Pattern: Clear Memory Description: Working Impaired Hallucinations: None Delusions: Not Present Thought Process: Intact, Rumination and Slowed Thinking Thought Content: negative for Flight of Ideas, positive for Goal Oriented, positive for Preoccupation, negative for Suicidal Ideation or negative for Homicidal Ideation Depressive Symptoms: Increased Anxiety, Increased Irritability, Hopelessness, Increased Fatigue, Loss of Energy and Difficulty Concentrating Judgement: Fair Judgement and Insight: Tremulous low energy some orthostasis on exam Assessment and Plan Assessment & Plan (1) Depression, major, severe recurrence: Status: Acute Code(s): F33.2 - Major depressive disorder, recurrent severe without psychotic features (2) ADHD (attention deficit hyperactivity disorder): Status: Acute Code(s): F90.9 - Attention-deficit hyperactivity disorder, unspecified type (3) ZAC (generalized anxiety disorder): Status: Acute Code(s): F41.1 - Generalized anxiety disorder Plan Taper nortriptyline not effective clomipramine 25 mg at bedtime fluoxetine 80 mg daily low-dose Rexulti Medications: New clomipramine 25 mg PO BEDTIME 30 caps 1RF F33.2 - Major depressive disorder, recurrent severe without psychotic features, F41.1 - Generalized anxiety disorder Counseling and coordination of Care Pt. Self Management counseling: Sleep hygiene and Behavior activation Diagnosis and Prognosis Counseling: Impact of diagnosis on life functions, Problematic behaviors secondary to diagnosis and Adequacy of current interventions Details: I spent [38] minutes reviewing the record, seeing the patient and documenting in the medical record. Counseling provided to the patient/caregiver as outlined below. Addressed patient/caregiver concerns regarding current medication regime including effective adherence. Addressed patient/caregiver concerns regarding diagnosis and prognosis including accuracy of diagnosis, prognosis over time, impact of diagnosis. Addressed patient/caregiver concerns regarding impact of recent stressors. [facility] Medical History (Updated 05/18/23 @ 23:07 by Yovany Shearer MD) Depression Hypothyroidism ZAC (generalized anxiety disorder) Hypertension ADHD (attention deficit hyperactivity disorder) Surgical History H/O thumb surgery H/O cone biopsy of cervix Family History Other No pertinent family history Social History Household Members: Spouse Household Members Other:: And two cats. 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
== END 2023-07-22 17:32 | disposition home or self-care (01) ==
LOC: HO.HOP 17:32
PROVIDERS: PCP Internal Medicine; Visit Provider Psychiatry & Neurology Psychiatry
DX: F33.2 Major depressive disorder, recurrent severe without psychotic features (principal); F90.9 Attention-deficit hyperactivity disorder, unspecified type; F41.1 Generalized anxiety disorder
CPT/HCPCS: 99214

== ENCOUNTER → 2023-07-22 17:32 | Outpatient (BNVA) | payer MEDICARE, SELFPAY | PROVIDERS: PCP Internal Medicine; Visit Provider Psychiatry & Neurology Psychiatry | DX: F33.2 Major depressive disorder, recurrent severe without psychotic features (principal); F41.1 Generalized anxiety disorder; F90.9 Attention-deficit hyperactivity disorder, unspecified type | CPT/HCPCS: 99212 ==

== ENCOUNTER 2023-08-07 11:59 | Outpatient (AMB) | payer MEDICARE, SELFPAY ==
--- NOTE | 2023-08-07 12:22 | MHC.OFFVISPS ---
Intake Intake Visit Reasons: depression Allergies No Known Allergies Allergy (Verified 09/24/21 12:18) HPI- Psychiatric Chief Complaint: depression HPI Narrative: Patient seen psychiatric follow-up with her telehealth appointment patient has started spravato case reviewed with Dr. Snyder treating provider for spravato in [place]. Patient remains significantly depressed and anxious ruminating. Has difficulty with balance tremor continues worsened Clomipramine was not helpful at 25mg denies active suicidal thoughts Past Psychiatric History: -Pt sees Dr. Shearer in OP setting recent hospitalization at the [place] [facility] Has had often on relapses over the past year and half -Remote hx of IPLOC 12 yrs ago, recent admissions at [facility] since 2020 with at least 4 admissions in the last 2 years Mental Status Exam Mental Status Exam Narrative: Sad looking anxipous tremor noted Patient Appearance: Appropriate Patient Orientation: Person, Place, Time and Situation Level of Consciousness: Awake and Lethargic Patient Behavior: Passive and Fatigued Mood Description: Depressed, Blunted and Apprehensive Affect Description: Constricted, Anxious and Apprehensive Patient Cognition Impaired: No Ability to Follow Directions: Fair (Difficulty with concentration) Speech Pattern: Clear Memory Description: Working Impaired Hallucinations: None Delusions: Not Present Thought Process: Intact, Rumination and Slowed Thinking Thought Content: positive for Goal Oriented, positive for Preoccupation, positive for Slowed Thinking, negative for Suicidal Ideation or negative for Homicidal Ideation Depressive Symptoms: Increased Anxiety, Increased Irritability, Hopelessness, Increased Fatigue, Loss of Energy and Difficulty Concentrating Judgement: Fair Judgement and Insight: Tremulous low energy continues Assessment and Plan Assessment & Plan (1) Depression, major, severe recurrence: Status: Acute Code(s): F33.2 - Major depressive disorder, recurrent severe without psychotic features (2) ZAC (generalized anxiety disorder): Status: Acute Code(s): F41.1 - Generalized anxiety disorder Plan Patient has not responded 25 mg dosing increased to 50 mg 1 regarding side effects over sedation orthostasis patient is on spravato initially at the lowest dose did not tolerated initially continue Edgarulti had a half a mg patient to call if problematic side effects again urged light exposure daily walk as tolerated Medications: Changed From brexpiprazole 0.5 mg (1/2 x 1 mg) PO BID 60 tabs 2RF To brexpiprazole 0.5 mg (1/2 x 1 mg) PO DAILY 30 tabs 2RF From clomipramine 25 mg PO BEDTIME 30 caps 1RF F33.2 - Major depressive disorder, recurrent severe without psychotic features, F41.1 - Generalized anxiety disorder To clomipramine 50 mg (2 x 25 mg) PO BEDTIME 30 caps 1RF F33.2 - Major depressive disorder, recurrent severe without psychotic features, F41.1 - Generalized anxiety disorder Counseling and coordination of Care Medication management counseling: Effectiveness, Side effects and Dosing range Diagnosis and Prognosis Counseling: Impact of diagnosis on life functions, Problematic behaviors secondary to diagnosis and Adequacy of current interventions Details: I spent [27] minutes reviewing the record, seeing the patient and documenting in the medical record. Counseling provided to the patient/caregiver as outlined below. Addressed patient/caregiver concerns regarding current medication regime including effective adherence. Addressed patient/caregiver concerns regarding diagnosis and prognosis including accuracy of diagnosis, prognosis over time, impact of diagnosis. Addressed patient/caregiver concerns regarding impact of recent stressors. [facility] Medical History (Updated 05/18/23 @ 23:07 by Yovany Shearer MD) Depression Hypothyroidism ZAC (generalized anxiety disorder) Hypertension ADHD (attention deficit hyperactivity disorder) Surgical History H/O thumb surgery H/O cone biopsy of cervix Family History Other No pertinent family history Social History Household Members: Spouse Household Members Other:: And two cats. 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
== END 2023-08-07 12:52 | disposition home or self-care (01) ==
LOC: HO.HOP 11:59
PROVIDERS: PCP Internal Medicine; Visit Provider Psychiatry & Neurology Psychiatry
DX: F33.2 Major depressive disorder, recurrent severe without psychotic features (principal); F41.1 Generalized anxiety disorder
CPT/HCPCS: 99214

== ENCOUNTER → 2023-08-07 11:59 | Outpatient (BNVA) | payer MEDICARE, SELFPAY | PROVIDERS: PCP Internal Medicine; Visit Provider Psychiatry & Neurology Psychiatry ==

== ENCOUNTER 2023-08-27 09:58 | Inpatient (IN) | payer MEDICARE, SELFPAY ==
--- NOTE | ~2023-08-27 | CT_ITS ---
EXAMINATION: CT HEAD WITHOUT CONTRAST CLINICAL INFORMATION: Acute mental status change COMPARISON: None available. TECHNIQUE: Contiguous axial imaging was performed from the skull base to vertex without intravenous administration of contrast. This CT examination was performed using dose optimization techniques as appropriate, variously including the following: *Automated exposure control *Adjustment of mA and/or kV according to patient size (this includes techniques or standardized protocols for targeted exams where dose is matched to indication/reason for exam; i.e. extremities or head) *Use of iterative reconstruction technique DLP: 692 mGy-cm FINDINGS: There is no evidence of acute intracranial hemorrhage masses or ischemic or hemorrhagic stroke. Ventricles are appropriate for age. Sulci nondilated. There are mild patchy periventricular white matter changes as a sequela of microangiopathy. Osseous structures unremarkable. Visualized paranasal sinuses and mastoids are well aerated. CT/CT head/brain wo IV con IMPRESSION : No acute intracranial pathology.
--- NOTE | ~2023-08-27 | MR_ITS ---
EXAMINATION: MR BRAIN WITHOUT CONTRAST CLINICAL INFORMATION: Ataxia COMPARISON: None TECHNIQUE: Multiplanar multisequence MR imaging of the brain was obtained without intravenous contrast. FINDINGS: There is no acute infarct on diffusion-weighted imaging. There is no intracranial hemorrhage on iron-sensitive imaging. No extra-axial collection or mass effect/herniation. Patchy periventricular and deep white matter T2 FLAIR hyperintensities consistent with moderate underlying microangiopathy. No hydrocephalus. The ventricles are normal in morphology and size. The major flow voids at the skull base are preserved. The midline structures are normal. The cerebellar tonsils are normally positioned. The craniocervical junction is normal. Marrow signal is within normal limits. The visualized soft tissues are without significant abnormality. No signal abnormality within the paranasal sinuses or within the mastoid air cells. MR/MR head/brain wo con IMPRESSION: 1. No acute infarct or other acute intracranial abnormality 2. Moderate chronic microangiopathy
--- NOTE | ~2023-08-27 | XR_ITS ---
EXAMINATION: XR CHEST CLINICAL INFORMATION: Tube placement COMPARISON: None available. TECHNIQUE: Frontal view of the chest was obtained. FINDINGS: NGT tip project in left upper quadrant of abdomen with sideport at or just below expected level of GE junction. No pneumothorax. Heart size is normal. Left basilar opacity may represent atelectasis and/or pneumonia. XR/XR chest 1V IMPRESSION: NGT tip project in left upper quadrant of abdomen with sideport at or just below expected level of GE junction. Left basilar opacity may represent atelectasis and/or pneumonia.
--- NOTE | ~2023-08-27 | FL_ITS ---
EXAMINATION: XR BARIUM SWALLOW CLINICAL INFORMATION: Dysphagia. COMPARISON: None available. TECHNIQUE: Modified barium swallow was performed in lateral fluoroscopy projection with patient sitting on a wheelchair. FINDINGS: On oral administration of thin barium, thick barium, nectar consistency barium and solid food-coated barium there is normal propagation of bolus from the oral cavity through the pharynx into the esophagus without laryngeal penetration or aspiration. No retention of barium seen in the valleculae or piriform sinuses. FLUOROSCOPY TIME: 2 minutes and 5 seconds. Dose area product: 1240 uGy-m2 (microgray-meter squared). FL/FL barium swallow modified IMPRESSION: Unremarkable modified barium swallow. Correlate with speech therapy report.
--- NOTE | ~2023-08-27 | XR_ITS ---
EXAMINATION: XR CHEST CLINICAL INFORMATION: Hypoxia COMPARISON: 09/07/2023 TECHNIQUE: Frontal view of the chest was obtained. FINDINGS: Again seen is a left basilar opacity consistent with atelectasis/infiltrate. There is been no interval change when compared to 09/07/2023. Degenerative changes present in the spine with scoliosis. Dense barium is present in the colon. No other abnormality is noted involving the heart, lungs, mediastinum, bony thorax or soft tissues. XR/XR chest 1V IMPRESSION: Left basilar atelectasis/infiltrate.
--- NOTE | ~2023-08-27 | FL_ITS ---
EXAMINATION: FLUOROSCOPY BARIUM SWALLOW CLINICAL INFORMATION: Dysphasia COMPARISON: None TECHNIQUE: Fluoroscopic air contrast upper GI examination was performed utilizing standard techniques with thin and thick barium and effervescent granules. Numerous spot images were obtained, as well as fluoroscopic image hold runs. FINDINGS: Examination is significantly limited due to patient inability to tolerate positioning for the examination and also follow instructions. The lateral cine of the hypopharynx was significantly obliqued. The patient could not position for optimal visualization of the stomach and duodenum. 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 A small amount of tracheal penetration, and ultimately subglottic aspiration is identified with thick barium. Cannot well evaluate the hypopharyngeal structures due to the obliquity. No obvious large mass. Consistent consistently pooling in the piriform sinuses and vallecula noted. Dual and single contrast images of the superior esophagus demonstrate a dilated esophagus with irregular mucosal patterns with small ulcerations, suggesting erosive esophagitis. No evidence of stricture or mass. Marked esophageal dysmotility was evident with abundant tertiary nonpropulsive contractions. The lower esophageal sphincter was delayed in opening, and a component of achalasia cannot be excluded. The bolus of contrast in the esophagus demonstrated to-and-fro movement, with eventual progression into the stomach through a mildly narrowed LES. A small hiatus hernia identified. No significant gastroesophageal reflux was seen during the course of the examination, however the examination was attenuated and limited due to patient condition. FLUOROSCOPY TIME: 2 minutes 59 seconds Number of Spot Images: 4 Number of Cine captures: 7 DOSE AREA PRODUCT: 877.9 uGy-m2 (microgray-meter squared) FL/FL barium swallow with air IMPRESSION: Somewhat limited exam as discussed. 1) Small amount of subglottic aspiration of thick barium noted on first swallow. 2) Irregular mucosal pattern of the superior esophagus suggestive of erosive esophagitis. Given preference of the superior one third of the esophagus, Ann esophagitis (thrush) should be strongly considered. Direct visualization with endoscopy is recommended. Would also recommend direct visualization of the posterior oropharynx to assess for classic plaques of Ann. 3) Marked esophageal dysmotility. Small type I hiatus hernia. Cannot well assess for reflux. 4. Somewhat delayed opening of the LES, suggesting a mild component of achalasia. This procedures performed by French Wheeler PA-C, and supervised by Dr. Webster. The care team was made aware of the findings by French Wheeler PA-C.
--- NOTE | ~2023-08-27 | US_ITS ---
EXAMINATION: US ABDOMEN COMPLETE CLINICAL INFORMATION: Increased liver function tests. COMPARISON: None available. TECHNIQUE: Real-time imaging of the abdominal viscera. FINDINGS: PANCREAS: Normal. ABDOMINAL AORTA: The proximal, mid, and distal segments are normal in caliber. There is mild atherosclerotic INFERIOR VENA CAVA: Visualized portions are normal. LIVER: Normal. The liver is normal in size. The liver contour is normal. Parenchymal echogenicity is normal. No focal hepatic lesion. There is no intrahepatic biliary duct dilatation seen. GALLBLADDER: Gallbladder is contracted. There are 2 echogenic against the gallbladder wall but do not or shadow suggestive of gallbladder wall polyps. These measure 5 x 4 x 4 mm and 2 x 2 x 2 mm. No definite gallstones. COMMON BILE DUCT: Normal in caliber measuring 0.3, 0.5 cm in diameter. RIGHT KIDNEY: 2 cysts measuring 1.2 x 0.9 x 1.1 cm 9 x 3.8 x 1 cm. No imaging follow-up recommended. No hydronephrosis. No renal calculi. The kidney measures 10 cm in maximum dimension. LEFT KIDNEY: 1 cm cyst in the midpole. No imaging follow-up recommended. No hydronephrosis. No renal calculi. The kidney measures 10 cm in maximum dimension. SPLEEN: Normal. The spleen measures 8 cm in maximum dimension. FREE FLUID: None. US/US abdomen complete IMPRESSION: Normal-appearing liver. Contracted gallbladder and probable small gallbladder wall polyps.
--- NOTE | ~2023-08-27 | XR_ITS ---
EXAMINATION: XR CHEST CLINICAL INFORMATION: Shortness of breath COMPARISON: Previous chest x-ray August 2021 TECHNIQUE: Frontal view of the chest was obtained. FINDINGS: No significant abnormality is noted involving the heart, lungs, mediastinum, bony thorax or soft tissues. XR/XR chest 1V IMPRESSION: Unremarkable examination.
[2023-08-27 10:27] VITALS: BP 136/79; PULSE 100; RESP 19; TEMP 36.1; O2SAT 100; BMI 20.8
[2023-08-27 10:47] LABS: Glucose, Whole Blood 182 mg/dL (60-115)
[2023-08-27 10:48] LABS: MANUAL DIFF FLAG NO
[2023-08-27 10:50] LABS: Basophils Absolute Auto 0.1 X10*3/uL (0.0-0.2); Basophils Percent Auto 0.4 % (0-2); Eosinophils Absolute Auto 0.2 X10*3/uL (0.0-0.4); Eosinophils Percent Auto 1.7 % (0-4); Hematocrit 49.1 % (37.0-47.0); Hemoglobin 16.3 g/dl (12.0-16.0); Imm Gran Abs Auto 0.08 X10*3/uL (0.00-0.03); Imm Gran Pct Auto 0.6 % (0.0-0.4); Lymphocytes Absolute Auto 0.7 X10*3/uL (1.2-4.9); Lymphocytes Percent Auto 5.3 % (20-40); Mean Corpuscular HGB Conc 33.2 g/dl (31.0-35.0); Mean Corpuscular Hemoglobin 29.5 pg (27.0-33.0); Mean Corpuscular Volume 88.9 fL (80.0-98.0); Mean Platelet Volume 9.6 fL (9.4-12.3); Monocytes Percent Auto 6.9 % (2-11); Neutrophils Absolute Auto 11.8 x10*3/uL (2.0-8.3); Neutrophils Percent Auto 85.1 % (45-73); Platelet Count 398 X10*3/uL (160-400); Red Blood Count 5.52 X10*6/uL (4.20-5.50); Red Cell Distribution Width 13.1 % (11.0-16.0); White Blood Count 13.9 X10*3/uL (4.8-10.8)
[2023-08-27 11:07] LABS: Alanine Aminotransferase 179 U/L (0-31); Albumin Level 4.3 g/dL (3.5-5.0); Alkaline Phosphatase 108 U/L (39-117); Anion Gap 14 (12-20); Aspartate Amino Transferase 66 U/L (5-31); Bilirubin Direct 0.1 mg/dL (0.0-0.5); Bilirubin Total 0.4 mg/dL (0.0-1.0); Blood Urea Nitrogen 18 mg/dL (9-16); Calcium 11.2 mg/dL (8.4-10.2); Carbon Dioxide 24 mmol/L (22-29); Chloride 100 mmol/L (96-108); Creatinine Clr Calc Pharmacy 39.8; Estimated Glomerular Filt Rate 58; Glucose Random 179 mg/dL (60-115); Lipase 19 U/L (8-78); Magnesium 2.3 mg/dL (1.6-2.6); Potassium 4.4 mmol/L (3.3-5.1); Sodium 134 mmol/L (135-145); Total Protein 7.3 g/dL (6.5-8.0)
[2023-08-27 11:27] LABS: Lithium 0.36 mmol/L (0.60-1.20)
--- NOTE | 2023-08-27 18:12 | ECG_ITS ---
Test Reason : drug monitoring Blood Pressure : / mmHG Vent. Rate : 098 BPM Atrial Rate : 098 BPM P-R Int : 116 ms QRS Dur : 080 ms QT Int : 372 ms P-R-T Axes : 040 055 042 degrees QTc Int : 474 ms Normal sinus rhythm Normal ECG When compared with ECG of 25-DEC-2022 15:38, No significant change was found Referred By: Therese Palomino Electronically Signed By:LÓPEZ NARVAEZ MD
--- NOTE | 2023-08-27 18:34 | ED_ITS ---
HPI - General Adult General Chief complaint: General Medical Stated complaint: not eating, can't walk, suffering depression Time Seen by Provider: 08/27/23 18:33 Source: patient, family (), RN notes reviewed and old records reviewed Mode of arrival: ambulatory Limitations: no limitations History of Present Illness HPI narrative: 72 year old female with pmhx significant for depression, ZAC, ADHD, HTN, hypothyroidism presents to the ED today with increased agitation and depression x days. Patient has significant psychiatric history followed by Dr. Shearer who recently adjusted her medications including the addition of rexulti and clomipramine. She also recently completed 7 doses of spravato (last dose 2 days ago). Patient endorses chronic resting tremor to her UE however this has worsened over the last week, now extending to her b/l hands and LE making it difficult for her to walk. She admits to agitation, depressive thoughts, and decreased PO intake over the last few days. Patient sent to ED this afternoon by Dr. Shearer for further evaluation. Patient's at bedside states she is not at her baseline. Related Data Home Medications Medication Instructions Recorded Confirmed amlodipine 5 mg tablet 10 mg PO DAILY 10/23/22 08/27/23 alprazolam 0.25 mg tablet 0.5 mg PO TID PRN anxiety 08/27/23 08/27/23 esketamine 56 mg (28 mg x 2) nasal 84 mg intranasal TUTH 08/27/23 08/27/23 spray (Spravato) fluticasone propionate 50 1 spray intranasal BID 08/27/23 08/27/23 mcg/actuation nasal spray,suspension propranolol 20 mg tablet 20 mg PO BID 08/27/23 08/27/23 Previous Rx's Medication Instructions Recorded ascorbic acid (vitamin C) 500 mg 2,000 mg (4 x 500 mg) PO BEDTIME 08/26/22 tablet (Vitamin C) 30 days #120 tabs multivitamin (Daily-Dara tablet) 1 tab PO DAILY 30 days #30 tabs 08/26/22 fluoxetine 40 mg capsule 80 mg (2 x 40 mg) PO DAILY 90 days 03/27/23 #180 caps lithium carbonate 300 mg tablet 300 mg PO BEDTIME 90 days #90 tabs 06/12/23 brexpiprazole 1 mg tablet 0.5 mg (1/2 x 1 mg) PO DAILY #30 08/07/23 tabs clomipramine 25 mg capsule 50 mg (2 x 25 mg) PO BEDTIME #60 08/15/23 caps Allergies Allergy/AdvReac Type Severity Reaction Status Date / Time No Known Allergies Allergy Verified 08/27/23 10:27 Review of Systems 2 Review of Systems: Constitutional: No fever, chills, fatigue, night sweats, weight changes, +dec PO intake ENT/Mouth: No ear pain, hearing loss, nasal congestion, sinus pain, rhinorrhea, sore throat Eyes: No eye pain, swelling, redness, vision changes, discharge Cardio: No chest pain, palpitations, SAUER, orthopnea, peripheral edema Pulm: No SOB, cough, sputum, wheezing, dyspnea, hemoptysis GI: No nausea, vomiting, hematemesis, abdominal pain, diarrhea, constipation, hematochezia, melena : No irregular bleeding, dysuria, frequency, urgency, hesitancy, hematuria, flank pain, urinary flow changes, urinary incontinence or retention MSK: No back pain, neck pain, joint pain, +myalgias Skin: No lesions, rashes Neuro: No weakness, numbness, paresthesias, LOC, dizziness, headache, +tremor Psych: No anxiety/panic, depression, SI/HI, AH/VH, +agitation All other systems reviewed and are negative. Neurologic: Reports confusion Psychiatric: Psychiatric: Reports confusion PMFSH Past Medical History Attestation statement: The following information was validated with the patient. Source: old records reviewed and nursing notes reviewed Medical History Depression Hypothyroidism ZAC (generalized anxiety disorder) Hypertension ADHD (attention deficit hyperactivity disorder) Surgical History H/O thumb surgery H/O cone biopsy of cervix Family History Family History Other No pertinent family history Social History Social History Household Members: Spouse Household Members Other:: And two cats. Housing: House Do you presently have visiting nurse or other home services: No Unable to assess alcohol history related to: Unknown Alcohol intake: never Patient Tobacco Use Status: Tobacco use Unknown Tobacco use type: Cigarette Smoked in Last 30 Days: No e-Cigarette/Vaping Use: Never Used Second Hand Smoke Exposure: No Use of substances other than those prescribed or required for medical reasons: No Substance Use Type: Marijuana Currently Displaying Signs/Symptoms of Drug Intoxication Withdrawal: No Advance Directives: No Advance Directives Information Provided: Yes Do you have thoughts of harming others: None Do you have a plan to hurt others: No Plan Recently lost weight without trying: Unsure Nutrition Risks: No Nutritional Risk Patient : No service: No Sexual orientation: Straight/Heterosexual Physical Exam ED Vital Signs: Vital Signs - 24 hr 08/28/23 15:35 08/28/23 18:53 08/28/23 23:45 Temperature 97.7 F 97.8 F Pulse Rate 83 99 Respiratory Rate 18 20 Blood Pressure 149/72 H 162/74 H 148/62 H Pulse Oximetry 94 96 Oxygen Delivery Method Room Air Room Air 08/29/23 00:00 08/29/23 04:00 08/29/23 07:10 Temperature 98.7 F 98.2 F 97.7 F Pulse Rate 85 104 H 93 Respiratory Rate 18 20 18 Blood Pressure 148/62 H 128/83 153/75 H Pulse Oximetry 93 93 95 Oxygen Delivery Method Room Air Room Air Room Air 08/29/23 10:49 Temperature 97.6 F Pulse Rate 92 Respiratory Rate 17 Blood Pressure 152/74 H Pulse Oximetry 95 Oxygen Delivery Method Room Air BMI result Body Mass Index 20.8 VS notable for tachycardia, otherwise within normal limits. Const Other: + significant resting tremor General: cooperative, alert, awake and confusion Orientation/consciousness: confusion Limitations: no limitations [facility] Head: Yes normal to inspection Ears: hearing grossly normal bilaterally General nose exam: Normal external nose present Eyes General: appearance normal, both eyes and all related structures Neck Neck: Yes normal visual inspection Chest Chest palpation & inspection: normal inspection of the chest Resp Effort & Inspection: normal respiratory effort Auscultation: clear to auscultation bilaterally Cardio Rate: regular rate Rhythm: regular rhythm Heart sounds: S1 normal heart sound present and S2 normal heart sound present Peripheral pulses: Peripheral pulses 2+ throughout GI Inspection: Yes normal to inspection Palpation (GI): Soft to palpation, nontender, no guarding and hepatosplenomegaly present General: Yes no CVA tenderness Back/Spine/Pelvis Back: no CVA tenderness Skin General skin exam: no rashes or lesions noted Neuro Other: + Tongue fasciculations. Patellar tendon reflexes hyperreflexive b/l. Bilateral clonus. Rigid muscle tone throughout. General: confusion and Unable to assess gait Gait exam (Neuro): Unable to assess gait Motor exam (neuro): Tremors during motor activity present, Abnormal muscle tone present and Motor abnormalites present Deep tendon reflexes (DTR's): Right patellar reflex intensity grade: 4+ and Left patellar reflex intensity grade: 4+ Course Course Course Narrative: [facility] > advised that the patient's current treatment of Ativan and IVF is sufficient for treatment of serotonin syndrome. Initiation of Ciproheptadine not warranted at this time. They will call back later to re-evaluate patient's status. CBC with leukocytosis to 13.9 with left shift. There is no anion gap. BUN elevated to 18, sodium 134 > IVF running. Calcium 11.2 [place] 0.36. EKG with NSR, QT 372, QRS 80, no ischemic changes. 2026-- on repeat vital signs, patient is now normotensive, no longer tachycardic, still afebrile. > Will present to hospital for admission for observation and continued treatment/ observation 2044-- discussed admission with the hospitalist (Dr. Field) who accepts and will put in admission orders. Medications Administered Generic Name Dose Route Start Last Admin Trade Name Freq PRN Reason Stop Dose Admin Amlodipine Besylate 10 mg 08/28/23 09:00 08/29/23 08:25 Amlodipine Besylate 10 Mg Tablet PO 10 mg DAILY NORBERTO Administration Protocol Ascorbic Acid 2,000 mg 08/28/23 21:00 08/28/23 19:55 Ascorbic Acid 500 Mg Tablet PO 2,000 mg BEDTIME NORBERTO Administration Cyproheptadine HCl 2 mg 08/28/23 10:55 08/29/23 08:19 Cyproheptadine Hcl 4 Mg Tablet PO 2 mg TID NORBERTO Administration Enoxaparin Sodium 40 mg 08/27/23 21:00 08/28/23 19:55 Enoxaparin Sodium 40 Mg/0.4 Ml Syringe SUBCUT 40 mg Q24H NORBERTO Administration Fluticasone Propionate 1 spray 08/28/23 09:00 08/29/23 08:27 Fluticasone Propionate Nasal 16 Gm [place] NOSTRIL-B 1 spray BID NORBERTO Administration Sodium Chloride 1,000 mls @ 100 mls/hr 08/27/23 22:15 08/29/23 05:05 Ns IVCONT 100 mls/hr .Q10H NORBERTO Administration Lorazepam 2 mg 08/27/23 22:12 08/29/23 11:13 Lorazepam 2 Mg/Ml Vial IVPUSH 2 mg Q2H PRN Administration Anxiety Multivitamins/Vitamin C 1 tab 08/28/23 09:00 08/29/23 08:19 Multivitamin Tablet PO 1 tab DAILY NORBERTO Administration Primidone 25 mg 08/29/23 10:30 08/29/23 11:13 Primidone 50 Mg Tablet PO 25 mg BID NORBERTO Administration Propranolol HCl 20 mg 08/27/23 22:15 08/29/23 08:19 Propranolol Hcl 20 Mg Tablet PO 20 mg BID NORBERTO Administration Protocol Sodium Chloride 3 ml 08/28/23 00:00 08/29/23 08:21 0.9 % Sodium Chloride Flush 3 Ml Syringe IVFLUSH Not Given QSHIFT NORBERTO Discontinued Medications Generic Name Dose Route Start Last Admin Trade Name Freq PRN Reason Stop Dose Admin Sodium Chloride 1,000 mls @ 999 mls/hr 08/27/23 19:00 08/27/23 21:22 Ns IV 08/27/23 20:00 Infused .Q1H1M NORBERTO Infusion Lorazepam 2 mg 08/27/23 18:50 08/27/23 19:00 Lorazepam 2 Mg/Ml Vial IVPUSH 08/27/23 18:51 2 mg STAT STA Administration Medical Decision Making Medical Decision Making [facility] Narrative: 72 year old female with pmhx significant for depression, ZAC, ADHD, HTN, hypothyroidism presents to the ED today with increased agitation and depression x days. VS initially notable for hypertension and tachycardia, now normalized. She has a flat affect. AOX3. PERRLA. There is tongue fasciculation. There is resting tremor noted to upper and lower extremities b/l. Patellar DTRs are hyperreflexive b/l. Clonus b/l. Increased muscle rigidity throughout. Lungs are CTA b/l. RRR. Exam otherwise unremarkable. Given that the patient meets [place] Criteria, serotonin syndrome is suspected. Plan at this time is to obtain basic labs, toxicology, poison control consultation, 2g ativan, IVF, hospitalist consultation, and re-evaluation. Differential Diagnosis Differential Diagnoses: The differential diagnosis associated with the presentation includes As above. Admission/Observation Consideration of admission/observation: Escalation of care including admission/observation considered Patient to be admitted to medicine for treatment and further evaluation of serotonin syndrome. Consult Healthcare Provider Management of the patient was discussed with: Hospitalist (Dr. Field), Continuing Education Instructor ([place] poison control) and Behavioral Health Provider (Dr. Shearer) Lab Data MDM Lab Attestation statement: I reviewed the patient's lab results. As above. 08/29/23 06:55 08/29/23 06:55 Labs: Lab Results 08/27/23 08/27/23 08/27/23 Range/Units 10:39 10:43 19:18 WBC 13.9 H (4.8-10.8) X10*3/uL RBC 5.52 H (4.20-5.50) X10*6/uL Hgb 16.3 H (12.0-16.0) g/dl Hct 49.1 H (37.0-47.0) % MCV 88.9 (80.0-98.0) fL MCH 29.5 (27.0-33.0) pg MCHC 33.2 (31.0-35.0) g/dl RDW 13.1 (11.0-16.0) % Plt Count 398 (160-400) X10*3/uL MPV 9.6 (9.4-12.3) fL Immature Gran % (Auto) 0.6 H (0.0-0.4) % Neut % (Auto) 85.1 H (45-73) % Lymph % (Auto) 5.3 L (20-40) % [place] % (Auto) 6.9 (2-11) % Eos % (Auto) 1.7 (0-4) % Baso % (Auto) 0.4 (0-2) % Lymph # (Auto) 0.7 L (1.2-4.9) X10*3/uL [place] # (Auto) 1.0 (0.1-1.2) X10*3/uL Eos # (Auto) 0.2 (0.0-0.4) X10*3/uL Baso # (Auto) 0.1 (0.0-0.2) X10*3/uL Abs Immat Gran (auto) 0.08 H (0.00-0.03) X10*3/uL Absolute Neuts (auto) 11.8 H (2.0-8.3) x10*3/uL Absolute Nucleated RBC 0.000 (0.0-0.012) X10*3/uL Nucleated RBC % (auto) 0.0 (0.0-0.2) /100WBC PT (11.1-13.3) SEC INR (0.9-1.1) Sodium 134 L (135-145) mmol/L Potassium 4.4 (3.3-5.1) mmol/L Chloride 100 (96-108) mmol/L Carbon Dioxide 24 (22-29) mmol/L Anion Gap 14 (12-20) BUN 18 H (9-16) mg/dL Creatinine 0.95 (0.5-1.4) mg/dL Estim Creat Clear Calc 39.8 Estimated GFR 58 POC Glucose 182 H 111 (60-115) mg/dL Random Glucose 179 H (60-115) mg/dL Fasting Glucose (60-99) mg/dL Calcium 11.2 H D (8.4-10.2) mg/dL Magnesium 2.3 (1.6-2.6) mg/dL Total Bilirubin 0.4 (0.0-1.0) mg/dL Direct Bilirubin 0.1 (0.0-0.5) mg/dL AST 66 H (5-31) U/L ALT 179 H (0-31) U/L Alkaline Phosphatase 108 (39-117) U/L Total Protein 7.3 (6.5-8.0) g/dL Albumin 4.3 (3.5-5.0) g/dL Lipase 19 (8-78) U/L Hold Yellow Top Urine Color Urine Appearance Urine pH (5.0-9.0) Ur Specific [place] (1.005-1.025) Urine Protein (Neg-Trace) mg/dL Urine Glucose (UA) (Negative) mg/dL Urine Ketones (Negative) mg/dL Urine Blood (Negative) Urine Nitrite (Negative) Ur Leukocyte Esterase (Negative) Urine RBC (0-2) /HPF Urine WBC (0-5) /HPF Ur Squamous Epith Cells (0-2) /HPF Urine Bacteria (None Seen) Hyaline Casts (0-2) /LPF Salicylates (15-30) mg/dL Acetaminophen (<30) mcg/mL [place] 0.36 L (0.60-1.20) mmol/L 08/28/23 08/28/23 08/28/23 Range/Units 00:29 05:27 18:55 WBC 10.5 (4.8-10.8) X10*3/uL RBC 4.67 (4.20-5.50) X10*6/uL Hgb 13.6 (12.0-16.0) g/dl Hct 41.6 (37.0-47.0) % MCV 89.1 (80.0-98.0) fL MCH 29.1 (27.0-33.0) pg MCHC 32.7 (31.0-35.0) g/dl RDW 13.2 (11.0-16.0) % Plt Count 334 (160-400) X10*3/uL MPV 9.5 (9.4-12.3) fL Immature Gran % (Auto) 0.7 H (0.0-0.4) % Neut % (Auto) 78.6 H (45-73) % Lymph % (Auto) 8.7 L (20-40) % [place] % (Auto) 9.8 (2-11) % Eos % (Auto) 1.7 (0-4) % Baso % (Auto) 0.5 (0-2) % Lymph # (Auto) 0.9 L (1.2-4.9) X10*3/uL [place] # (Auto) 1.0 (0.1-1.2) X10*3/uL Eos # (Auto) 0.2 (0.0-0.4) X10*3/uL Baso # (Auto) 0.1 (0.0-0.2) X10*3/uL Abs Immat Gran (auto) 0.07 H (0.00-0.03) X10*3/uL Absolute Neuts (auto) 8.3 (2.0-8.3) x10*3/uL Absolute Nucleated RBC 0.000 (0.0-0.012) X10*3/uL Nucleated RBC % (auto) 0.0 (0.0-0.2) /100WBC PT 12.3 (11.1-13.3) SEC INR 1.0 (0.9-1.1) Sodium 139 (135-145) mmol/L Potassium 4.0 (3.3-5.1) mmol/L Chloride 108 (96-108) mmol/L Carbon Dioxide 20 L (22-29) mmol/L Anion Gap 15 (12-20) BUN 19 H (9-16) mg/dL Creatinine 0.81 (0.5-1.4) mg/dL Estim Creat Clear Calc 46.7 Estimated GFR > 60 POC Glucose (60-115) mg/dL Random Glucose 79 (60-115) mg/dL Fasting Glucose (60-99) mg/dL Calcium 9.5 D (8.4-10.2) mg/dL Magnesium (1.6-2.6) mg/dL Total Bilirubin 0.3 (0.0-1.0) mg/dL Direct Bilirubin 0.1 (0.0-0.5) mg/dL AST 60 H (5-31) U/L ALT 148 H (0-31) U/L Alkaline Phosphatase 87 (39-117) U/L Total Protein 5.5 L (6.5-8.0) g/dL Albumin 3.3 L (3.5-5.0) g/dL Lipase (8-78) U/L Hold Yellow Top Urine Color Yellow Urine Appearance Clear Urine pH 5.5 (5.0-9.0) Ur Specific [place] 1.010 (1.005-1.025) Urine Protein Negative (Neg-Trace) mg/dL Urine Glucose (UA) Negative (Negative) mg/dL Urine Ketones Trace (Negative) mg/dL Urine Blood Negative (Negative) Urine Nitrite Negative (Negative) Ur Leukocyte Esterase Moderate (2+) H (Negative) Urine RBC 0-2 (0-2) /HPF Urine WBC 6-10 H (0-5) /HPF Ur Squamous Epith Cells 3-5 (0-2) /HPF Urine Bacteria None Seen (None Seen) Hyaline Casts 3-5 (0-2) /LPF Salicylates < 5.0 L (15-30) mg/dL Acetaminophen < 17 (<30) mcg/mL [place] (0.60-1.20) mmol/L 08/29/23 Range/Units 06:55 WBC 9.0 (4.8-10.8) X10*3/uL RBC 4.48 (4.20-5.50) X10*6/uL Hgb 12.9 (12.0-16.0) g/dl Hct 39.6 (37.0-47.0) % MCV 88.4 (80.0-98.0) fL MCH 28.8 (27.0-33.0) pg MCHC 32.6 (31.0-35.0) g/dl RDW 13.1 (11.0-16.0) % Plt Count 314 (160-400) X10*3/uL MPV 9.9 (9.4-12.3) fL Immature Gran % (Auto) (0.0-0.4) % Neut % (Auto) (45-73) % Lymph % (Auto) (20-40) % [place] % (Auto) (2-11) % Eos % (Auto) (0-4) % Baso % (Auto) (0-2) % Lymph # (Auto) (1.2-4.9) X10*3/uL [place] # (Auto) (0.1-1.2) X10*3/uL Eos # (Auto) (0.0-0.4) X10*3/uL Baso # (Auto) (0.0-0.2) X10*3/uL Abs Immat Gran (auto) (0.00-0.03) X10*3/uL Absolute Neuts (auto) (2.0-8.3) x10*3/uL Absolute Nucleated RBC 0.000 (0.0-0.012) X10*3/uL Nucleated RBC % (auto) 0.0 (0.0-0.2) /100WBC PT (11.1-13.3) SEC INR (0.9-1.1) Sodium 140 (135-145) mmol/L Potassium 3.6 (3.3-5.1) mmol/L Chloride 109 H (96-108) mmol/L Carbon Dioxide 20 L (22-29) mmol/L Anion Gap 15 (12-20) BUN 11 (9-16) mg/dL Creatinine 0.69 (0.5-1.4) mg/dL Estim Creat Clear Calc 54.7 Estimated GFR > 60 POC Glucose (60-115) mg/dL Random Glucose (60-115) mg/dL Fasting Glucose 79 (60-99) mg/dL Calcium 9.6 (8.4-10.2) mg/dL Magnesium (1.6-2.6) mg/dL Total Bilirubin 0.4 (0.0-1.0) mg/dL Direct Bilirubin 0.2 (0.0-0.5) mg/dL AST 59 H (5-31) U/L ALT 143 H (0-31) U/L Alkaline Phosphatase 89 (39-117) U/L Total Protein 5.7 L (6.5-8.0) g/dL Albumin 3.4 L (3.5-5.0) g/dL Lipase (8-78) U/L Hold Yellow Top See Note Urine Color Urine Appearance Urine pH (5.0-9.0) Ur Specific [place] (1.005-1.025) Urine Protein (Neg-Trace) mg/dL Urine Glucose (UA) (Negative) mg/dL Urine Ketones (Negative) mg/dL Urine Blood (Negative) Urine Nitrite (Negative) Ur Leukocyte Esterase (Negative) Urine RBC (0-2) /HPF Urine WBC (0-5) /HPF Ur Squamous Epith Cells (0-2) /HPF Urine Bacteria (None Seen) Hyaline Casts (0-2) /LPF Salicylates (15-30) mg/dL Acetaminophen (<30) mcg/mL [place] (0.60-1.20) mmol/L Independent Interpretation I performed an independent interpretation of an: EKG Interpretation: EKG with NSR, QT 372, QRS 80, no ischemic changes. Independent Historian Clinical information obtained from an independent historian. History obtained from or confirmed by: Spouse and Other (Dr. Shearer) External Record Review External record reviewed: Inpatient record, Office record, Outpatient record, Prior outpatient labs, Prior outpatient radiology, Primary care record and Outside ED record Prescription Management I considered prescription management with: Other (benzo) Chronic Conditions Patient?s care impacted by: Other (Severe MDD, ZAC) Social Determinants Patient?s care significantly limited by Social Determinants of Health including: Other Social Determinant of Health Critical Care Time Critical Care Time Critical Care Time: Yes Total Critical Care Time: 45 Attestation: Critical care time in the amount of 45 minutes has been provided to the patient in terms of direct patient care, frequent reevaluation, consultation with poison control, psych provider, and hospitalist, review and interpretation of medical data and results, and management of potentially life-threatening conditions. This is all outside of any medical procedures. Discharge Plan Discharge Clinical Impression: Serotonin syndrome Patient Disposition: Admitted As Inpatient Interventions: Admission Worksheet (ED) Last Done: 08/28/23 06:45 Discharge Date/Time: 08/28/23 07:26
[2023-08-27 18:45] VITALS: BP 170/122; PULSE 111; RESP 18; O2SAT 100
[2023-08-27] MEDS: LORazepam 2 MG/ML VIAL IVPUSH (19:00)
[2023-08-27] MEDS: 0.9 % Sodium Chloride 1,000 ML 999 ML IV (19:09)
[2023-08-27 19:29] LABS: Glucose, Whole Blood 111 mg/dL (60-115)
--- NOTE | 2023-08-27 19:30 | PC.NURSE ---
Spoke with [place] [facility], advised that pt was given ativan and fluids for treatment. States that would be the treatment for serotonin syndrome and will call back with further recommendations is needed.
[2023-08-27 19:32] VITALS: BP 131/95; PULSE 97; RESP 15; O2SAT 95
[2023-08-27 19:56] VITALS: BP 125/75; PULSE 93; RESP 16; TEMP 36.5; O2SAT 95
[2023-08-27] MEDS: Enoxaparin Sodium 40 MG/0.4 ML SYRINGE SUBCUT (21:20)
--- NOTE | 2023-08-27 21:28 | PM.IMHP ---
History of Present Illness Date of Service: 08/27/23 Attending physician on admission: Donny Field Chief Complaint: Ataxia, tremors, agitation Pt is a 72-year-old female with a PMH significant for?HTN, ADHD, GED, and depression who presents to the ED for evaluation of increased agitation, depression, tremors, and inability to walk. Patient with extensive psychiatric history and admissions for inpatient psychiatric care, followed by Dr. Shearer who has made recent changes to her psychiatric medications including addition of brexpiprazole and clomipramine. Patient reports a previous history of upper extremity tremors, but states that over the past week has noticed worsening tremors in her hands and the development of tremors in her feet which has made it difficult to walk. Has also been experiencing difficulty speaking, and increased agitation and depression over the past few days. States she has not been eating or drinking adequately. Denies any SI. Patient also denies any other acute medical complaints. No chest pain/pressure, palpitations. Denies fever, chills, nausea, vomiting, abdominal pain. No difficulty breathing, shortness of breath. In the ED patient was afebrile, but tachycardic to 111 and initially hypertensive up to 170/122. Labs were significant for leukocytosis of 13.9, H&H 16.3/49.1, sodium 134, AST 66, ALT 179, otherwise grossly unremarkable. EKG demonstrated normal sinus rhythm without ST elevations or depressions. Pt was treated with IV Ativan and IVF. Pt will be admitted to the hospital for treatment and further evaluation of increased agitation, tremors, and ataxia concerning for serotonin syndrome. Review of Systems Review of Systems: Agitation Resting tremors of upper and lower extremities Difficulty speaking Ataxia Depression Reduced p.o. intake No chest pain/pressure, palpitations Denies fever, chills, nausea, vomiting [facility] Medical History Depression Hypothyroidism ZAC (generalized anxiety disorder) Hypertension ADHD (attention deficit hyperactivity disorder) Family History Other No pertinent family history Surgical History H/O thumb surgery H/O cone biopsy of cervix Social History Household Members: Spouse Household Members Other:: And two cats. Housing: House Do you presently have visiting nurse or other home services: No Unable to assess alcohol history related to: Unknown Alcohol intake: never Patient Tobacco Use Status: Former Tobacco user Quit Date: 2013 Tobacco use type: Cigarette e-Cigarette/Vaping Use: Never Used Second Hand Smoke Exposure: No Substance Use Type: Marijuana Advance Directives: No Advance Directives Information Provided: Yes service: No Sexual orientation: Straight/Heterosexual Meds Allergies Allergy/AdvReac Type Severity Reaction Status Date / Time No Known Allergies Allergy Verified 08/27/23 10:27 Active Medications: Current Medications Acetaminophen (Acetaminophen 325 Mg Tablet) 650 mg PO Q6H PRN PRN Reason: Pain, Mild (Pain Scale 1-3) Acetaminophen (Acetaminophen Supp 650 Mg Supp.Rect) 650 mg [place] Q6H PRN PRN Reason: Pain, Mild (Pain Scale 1-3) Enoxaparin Sodium (Enoxaparin Sodium 40 Mg/0.4 Ml Syringe) 40 mg SUBCUT Q24H [facility] Last Admin: 08/27/23 21:20 Dose: 40 mg Melatonin (Melatonin 3 Mg Tablet) 6 mg PO BEDTIME PRN PRN Reason: Insomnia Ondansetron HCl (Ondansetron Hcl 4 Mg/2 Ml Vial) 4 mg IVPUSH Q8H PRN PRN Reason: Nausea and Vomiting Sodium Chloride (0.9 % Sodium Chloride Flush 3 Ml Syringe) 3 ml IVFLUSH QSHIFT [facility] Home Medications Medication Instructions Recorded Confirmed Last Taken Type amlodipine 5 mg tablet 10 mg PO DAILY 10/23/22 08/27/23 10/23/22 History alprazolam 0.25 mg tablet 0.5 mg PO TID PRN anxiety 08/27/23 08/27/23 Unknown History esketamine 56 mg (28 mg x 2) nasal 84 mg intranasal TUTH 08/27/23 08/27/23 08/27/23 History spray (Spravato) fluticasone propionate 50 1 spray intranasal BID 08/27/23 08/27/23 Unknown History mcg/actuation nasal spray,suspension propranolol 20 mg tablet 20 mg PO BID 08/27/23 08/27/23 Unknown History Physical Exam Vital Signs and Narrative: Vital Signs: Last Vital Signs Temp 97.7 F 08/27/23 19:56 Pulse 93 08/27/23 19:56 Resp 16 08/27/23 19:56 BP 125/75 08/27/23 19:56 Pulse Ox 95 08/27/23 19:56 O2 Del Method Room Air 08/27/23 19:32 BMI result Body Mass Index 20.8 Constitutional: Alert, in no acute distress. Mental Status: Oriented to person, place and time. Eyes: Pupils are equal, round, and reactive to light. Ear, Nose, and Throat: Oropharynx clear, mucous membranes moist. Ears and nose without deformities. Trachea midline. Tongue fasciculations Respiratory: Clear to auscultation bilaterally. No wheezing, rales, or rhonchi. Cardiovascular: S1, S2 regular. No murmurs, rubs, or gallops. Gastrointestinal: Abdomen soft, non-tender, non-distended. Normal bowel sounds. Neurologic: Cranial nerves II-XII are grossly intact bilaterally. Moves all extremities spontaneously. Resting tremor of upper and lower extremities. Clonus bilaterally. Tongue fasciculations. Increased muscle rigidity throughout. Skin: No rashes or lesions noted. Musculoskeletal: No cyanosis or clubbing. Extremities: No edema. Psychiatric: Flat affect Results Labs 08/27/23 10:43 08/27/23 10:43 Labs: Laboratory Results - last 24 hr 08/27/23 08/27/23 08/27/23 10:39 10:43 19:18 MCV 88.9 MCH 29.5 MCHC 33.2 RDW 13.1 Plt Count 398 MPV 9.6 Immature Gran % (Auto) 0.6 H Neut % (Auto) 85.1 H Lymph % (Auto) 5.3 L [place] % (Auto) 6.9 Eos % (Auto) 1.7 Baso % (Auto) 0.4 Lymph # (Auto) 0.7 L [place] # (Auto) 1.0 Eos # (Auto) 0.2 Baso # (Auto) 0.1 Abs Immat Gran (auto) 0.08 H Absolute Neuts (auto) 11.8 H Absolute Nucleated RBC 0.000 Nucleated RBC % (auto) 0.0 Anion Gap 14 Estim Creat Clear Calc 39.8 Estimated GFR 58 POC Glucose 182 H 111 Random Glucose 179 H Calcium 11.2 H D Magnesium 2.3 Total Bilirubin 0.4 Direct Bilirubin 0.1 AST 66 H ALT 179 H Alkaline Phosphatase 108 Total Protein 7.3 Albumin 4.3 Lipase 19 [place] 0.36 L Assessment and Plan (1) Tremors of nervous system: Status: Acute (2) Ataxia: Status: Acute Plan Pt is a 72-year-old female with a PMH significant for?HTN, ADHD, GED, and depression who presents to the ED for evaluation of increased agitation, depression, tremors, and inability to walk. Pt will be admitted to the hospital for treatment and further evaluation of increased agitation, tremors, and ataxia concerning for serotonin syndrome. Agitation, tremors Pt with increased upper extremity tremors, clonus, ataxia, difficulty speaking, tongue fasciculations Concerning for serotonin syndrome Patient with recent changes to psychiatric medications Will treat with supportive care: Ativan p.r.n. and IVF Will hold clomipramine, esketamine, fluoxetine, brexpiprazole, and lithium If symptoms persist will consider cyproheptadine Psychiatry consult Mild transaminitis AST 66, ALT 179 Patient asymptomatic: denies abdominal pain Possibly secondary to serotonin syndrome Treat as above HTN Continue amlodipine, propanolol Full Code Attending:?Dr. Field DVT Prophylaxis: Lovenox Pt will require a hospitalization of at least two nights for treatment and further evaluation of increased agitation, tremors, and ataxia concerning for serotonin syndrome. Time Spent With Patient Time: Total time managing care of this patient today ____ minutes. Quality Stroke Does the patient have a stroke diagnosis?: No VTE Prior VTE?: No VTE Risk Level:: Medical - moderate - high VTE Device Contraindication: Treatment Not Indicated VTE Drug Contraindication: N/A - Med Ordered
--- NOTE | 2023-08-27 21:50 | PC.NURSE ---
Marilyn with Poison control given update on pt.
--- NOTE | 2023-08-27 21:50 | PHA.MEDREC ---
Pharmacy Consult ? Medication Reconciliation Pharmacy has completed the medication reconciliation. Patient reports taking propranolol BID instead of q8h. Patient reported no longer taking nortriptyline. Patient said that she does not have anyone to bring in the [place]rav[place] nasal spray. Maggie Marrero, PharmD
[2023-08-27 22:31] VITALS: BP 147/71; PULSE 99; RESP 16; TEMP 36.5; O2SAT 95
[2023-08-27] MEDS: Propranolol HCL 20 MG TABLET PO (23:09)
[2023-08-27] MEDS: 0.9 % Sodium Chloride Flush 3 ML SYRINGE IVFLUSH (23:10)
[2023-08-27] MEDS: 0.9 % Sodium Chloride 1,000 ML 100 ML IVCONT (23:10)
--- NOTE | 2023-08-27 23:46 | PC.NURSE ---
Addendum entered by Norma Moran 08/27/23 23:47: *plan for straight cath if unable to urinate. Original Note: Pt with bladder scan of >605 ml. Placed on bedpan at this time. Plan for bladder scan if unable to urinate. Dr. Field made aware and agrees with plan.
[2023-08-28] VITALS (8 sets, daily range): BP systolic 135–162; BP diastolic 62–79; PULSE 83–99; RESP 17–24; TEMP 36.3–37; O2SAT 94–98
[2023-08-28 00:34] LABS: Appearance Urine Clear; Color Urine Yellow; Glucose Urine UA Negative (Negative); Leukocyte Esterase Urine Moderate (2+) (Negative); Nitrite Urine Negative (Negative); PH 5.5 (5.0-9.0); UMIC TRIGGER UACC YES; Urine Blood Negative (Negative); Urine Ketones Trace mg/dL (Negative); Urine Protein Negative (Neg-Trace)
[2023-08-28 00:38] LABS: Bacteria Urine None Seen (None Seen); RBC Urine 0-2 /HPF (0-2); UACC Culture Trigger YES
[2023-08-28 05:44] LABS: MANUAL DIFF FLAG NO
[2023-08-28 05:48] LABS: Basophils Absolute Auto 0.1 X10*3/uL (0.0-0.2); Basophils Percent Auto 0.5 % (0-2); Eosinophils Absolute Auto 0.2 X10*3/uL (0.0-0.4); Eosinophils Percent Auto 1.7 % (0-4); Hematocrit 41.6 % (37.0-47.0); Hemoglobin 13.6 g/dl (12.0-16.0); Imm Gran Abs Auto 0.07 X10*3/uL (0.00-0.03); Imm Gran Pct Auto 0.7 % (0.0-0.4); Lymphocytes Absolute Auto 0.9 X10*3/uL (1.2-4.9); Lymphocytes Percent Auto 8.7 % (20-40); Mean Corpuscular HGB Conc 32.7 g/dl (31.0-35.0); Mean Corpuscular Hemoglobin 29.1 pg (27.0-33.0); Mean Corpuscular Volume 89.1 fL (80.0-98.0); Mean Platelet Volume 9.5 fL (9.4-12.3); Monocytes Percent Auto 9.8 % (2-11); Neutrophils Absolute Auto 8.3 x10*3/uL (2.0-8.3); Neutrophils Percent Auto 78.6 % (45-73); Platelet Count 334 X10*3/uL (160-400); Red Blood Count 4.67 X10*6/uL (4.20-5.50); Red Cell Distribution Width 13.2 % (11.0-16.0); White Blood Count 10.5 X10*3/uL (4.8-10.8)
[2023-08-28 06:09] LABS: Anion Gap 15 (12-20); Blood Urea Nitrogen 19 mg/dL (9-16); Calcium 9.5 mg/dL (8.4-10.2); Carbon Dioxide 20 mmol/L (22-29); Chloride 108 mmol/L (96-108); Creatinine Clr Calc Pharmacy 46.7; Estimated Glomerular Filt Rate > 60; Glucose Random 79 mg/dL (60-115); Sodium 139 mmol/L (135-145)
--- NOTE | 2023-08-28 06:14 | PC.NURSE ---
16 [place] placed, notified KATHRINE Green
--- NOTE | 2023-08-28 06:20 | PC.NURSE ---
Pt stating she needs to use the restroom, assisted to try and use bedside commode and still unable to void. Bladder scan brought to bedside and shows 812 ml. South catheter inserted per Dr. Field verbal order and 750 ml initial output removed from collection bag. Pt reports relief.
[2023-08-28] MEDS: Multivitamin TABLET 1 TAB PO (08:55)
[2023-08-28] MEDS: amLODIPine Besylate 10 MG TABLET PO (08:55)
[2023-08-28] MEDS: Propranolol HCL 20 MG TABLET PO ×2 (08:55→19:56)
[2023-08-28] MEDS: 0.9 % Sodium Chloride 1,000 ML 100 ML IVCONT ×2 (08:57→19:56)
--- NOTE | 2023-08-28 10:25 | MHC.CM.PN ---
CM met with Patient at bedside and addressed CARRILLO with her, providing Patient with the original and placing a copy on the chart. Patient lives in a house with her /HCP and per ROUNDS discussion, dc plan is pending Psych & Neuro clearance. CM has initiated and will follow for dc planning. PCP is Dr. Tami Francis.
--- NOTE | 2023-08-28 10:30 | PM.NEUROCN ---
History of Present Illness Data of Consult Service Date: 08/28/23 Primary Care Provider: Tami Francis MD [facility] Reason for consult: Tremor 72 years old woman with significant past psychiatric history taking antipsychotic medicines came to hospital with worsening of tremor unsteadiness and problem with balance. She said that she had tremor all her life and her mother also had tremor. There was no recent cold or flu-like illness. Some adjustment to her medications have been made recently with addition of some psychiatric medicines. Review of Systems Review of Systems: No recent cold or flu-like illness PMFSH Past Medical History Medical History Depression Hypothyroidism ZAC (generalized anxiety disorder) Hypertension ADHD (attention deficit hyperactivity disorder) Family History Family History Other No pertinent family history Surgical History Surgical History H/O thumb surgery H/O cone biopsy of cervix Social History Social History Household Members: Spouse Household Members Other:: And two cats. Housing: House Do you presently have visiting nurse or other home services: No Unable to assess alcohol history related to: Unknown Alcohol intake: never Patient Tobacco Use Status: Tobacco use Unknown Tobacco use type: Cigarette e-Cigarette/Vaping Use: Never Used Second Hand Smoke Exposure: No Substance Use Type: Marijuana service: No Sexual orientation: Straight/Heterosexual Meds Allergies Allergy/AdvReac Type Severity Reaction Status Date / Time No Known Allergies Allergy Verified 08/27/23 10:27 Active Medications: Current Medications Acetaminophen (Acetaminophen 325 Mg Tablet) 650 mg PO Q6H PRN PRN Reason: Pain, Mild (Pain Scale 1-3) Acetaminophen (Acetaminophen Supp 650 Mg Supp.Rect) 650 mg [place] Q6H PRN PRN Reason: Pain, Mild (Pain Scale 1-3) Amlodipine Besylate (Amlodipine Besylate 10 Mg Tablet) 10 mg PO DAILY [facility]; Protocol Last Admin: 08/28/23 08:55 Dose: 10 mg Ascorbic Acid (Ascorbic Acid 500 Mg Tablet) 2,000 mg PO BEDTIME [facility] Enoxaparin Sodium (Enoxaparin Sodium 40 Mg/0.4 Ml Syringe) 40 mg SUBCUT Q24H [facility] Last Admin: 08/27/23 21:20 Dose: 40 mg Fluticasone Propionate (Fluticasone Propionate Nasal 16 Gm [place]) 1 spray NOSTRIL-B BID [facility] Last Admin: 08/28/23 10:17 Dose: Not Given Sodium Chloride (Ns) 1,000 mls @ 100 mls/hr IVCONT .Q10H [facility] Last Admin: 08/28/23 08:57 Dose: 100 mls/hr Lorazepam (Lorazepam 2 Mg/Ml Vial) 2 mg IVPUSH Q2H PRN PRN Reason: Anxiety Melatonin (Melatonin 3 Mg Tablet) 6 mg PO BEDTIME PRN PRN Reason: Insomnia Multivitamins/Vitamin C (Multivitamin Tablet) 1 tab PO DAILY [facility] Last Admin: 08/28/23 08:55 Dose: 1 tab Ondansetron HCl (Ondansetron Hcl 4 Mg/2 Ml Vial) 4 mg IVPUSH Q8H PRN PRN Reason: Nausea and Vomiting Propranolol HCl (Propranolol Hcl 20 Mg Tablet) 20 mg PO BID [facility]; Protocol Last Admin: 08/28/23 08:55 Dose: 20 mg Sodium Chloride (0.9 % Sodium Chloride Flush 3 Ml Syringe) 3 ml IVFLUSH QSHIFT [facility] Last Admin: 08/28/23 07:24 Dose: Not Given Home Medications Medication Instructions Recorded Confirmed Last Taken Type amlodipine 5 mg tablet 10 mg PO DAILY 10/23/22 08/27/23 10/23/22 History alprazolam 0.25 mg tablet 0.5 mg PO TID PRN anxiety 08/27/23 08/27/23 Unknown History esketamine 56 mg (28 mg x 2) nasal 84 mg intranasal TUTH 08/27/23 08/27/23 08/27/23 History spray ([place]) fluticasone propionate 50 1 spray intranasal BID 08/27/23 08/27/23 Unknown History mcg/actuation nasal spray,suspension propranolol 20 mg tablet 20 mg PO BID 08/27/23 08/27/23 Unknown History Physical Exam Vital Signs: Vital Signs: Last Vital Signs Temp 97.4 F 08/28/23 07:50 Pulse 86 08/28/23 07:50 Resp 20 08/28/23 07:50 BP 147/71 H 08/28/23 07:50 Pulse Ox 96 08/28/23 07:50 O2 Del Method Room Air 10/13/23 07:50 BMI result Body Mass Index 20.8 Neuro: Other: She is alert and awake with normal spontaneity of speech fluency comprehension and anxious affect. Face is symmetrical. Visual damian are full. There is moderate mixed tremor in both upper extremities. Deep tendon reflexes are absent with flexor plantars. Speech is normal. No definite dyskinesia as noted. Results Labs 08/28/23 05:27 08/28/23 05:27 Labs: Short CBC 08/27/23 08/28/23 Range/Units 10:43 05:27 WBC 13.9 H 10.5 (4.8-10.8) X10*3/uL Hgb 16.3 H 13.6 (12.0-16.0) g/dl Hct 49.1 H 41.6 (37.0-47.0) % Plt Count 398 334 (160-400) X10*3/uL BMP 08/27/23 08/28/23 10:43 05:27 Sodium 134 L 139 Potassium 4.4 4.0 Chloride 100 108 Carbon Dioxide 24 20 L BUN 18 H 19 H Creatinine 0.95 0.81 Calcium 11.2 H D 9.5 D Liver Function 08/27/23 Range/Units 10:43 Total Bilirubin 0.4 (0.0-1.0) mg/dL Direct Bilirubin 0.1 (0.0-0.5) mg/dL AST 66 H (5-31) U/L ALT 179 H (0-31) U/L Alkaline Phosphatase 108 (39-117) U/L Albumin 4.3 (3.5-5.0) g/dL Urine 08/28/23 Range/Units 00:29 Urine Color Yellow Urine Appearance Clear Urine pH 5.5 (5.0-9.0) Ur Specific [place] 1.010 (1.005-1.025) Urine Protein Negative (Neg-Trace) mg/dL Urine Glucose (UA) Negative (Negative) mg/dL Assessment and Plan (1) Tremors of nervous system: Status: Acute 72 years old woman with underlying complicated depression manage with multiple meds including antipsychotics. She also reported having tremor most of her life and stating that her mother also suffered from tremor. Tremor might have gotten worse due to exposure to some medications but I do not see any overt signs of tardive dyskinesia. Serotonin syndrome is a possibility. In any case, adjustment of medications is recommended. As far as tremor is concerned, I had noticed that she is taking propanolol, which might have been given to her for tremor or anxiety or both. If feasible, try primidone 50 mg half twice a day or 1 twice a day to see if that would help with tremor. Time Spent With Patient Time: Total time managing care of this patient today ____ minutes. Procedures Date of Service Date of Service: 08/28/23
--- NOTE | 2023-08-28 10:58 | P.PNIM_ITS ---
Subjective Subjective Date of Service: 08/28/23 Interval History: tremor improving Physical Exam 2 Vital Signs: Vital Signs: Last Vital Signs Temp 97.4 F 08/28/23 10:46 Pulse 83 08/28/23 10:46 Resp 20 08/28/23 10:46 BP 147/77 H 08/28/23 10:46 Pulse Ox 94 08/28/23 10:46 O2 Del Method Room Air 08/28/23 10:46 BMI result Body Mass Index 20.8 resting tremor, diffuse Objective Data Active Medications Acetaminophen (Acetaminophen 325 Mg Tablet) 650 mg PO Q6H PRN PRN Reason: Pain, Mild (Pain Scale 1-3) Acetaminophen (Acetaminophen Supp 650 Mg Supp.Rect) 650 mg [place] Q6H PRN PRN Reason: Pain, Mild (Pain Scale 1-3) Amlodipine Besylate (Amlodipine Besylate 10 Mg Tablet) 10 mg PO DAILY [facility]; Protocol Last Admin: 08/28/23 08:55 Dose: 10 mg Documented By: MIGUELINA Ascorbic Acid (Ascorbic Acid 500 Mg Tablet) 2,000 mg PO BEDTIME [facility] Cyproheptadine HCl (Cyproheptadine Hcl 4 Mg Tablet) 2 mg PO TID [facility] Enoxaparin Sodium (Enoxaparin Sodium 40 Mg/0.4 Ml Syringe) 40 mg SUBCUT Q24H [facility] Last Admin: 08/27/23 21:20 Dose: 40 mg Documented By: ADIN Fluticasone Propionate (Fluticasone Propionate Nasal 16 Gm [place]) 1 spray NOSTRIL-B BID [facility] Last Admin: 08/28/23 10:17 Dose: Not Given Documented By: MIGUELINA Non-Admin Reason: Med Not Available Sodium Chloride (Ns) 1,000 mls @ 100 mls/hr IVCONT .Q10H [facility] Last Admin: 08/28/23 08:57 Dose: 100 mls/hr Documented By: MIGUELINA Lorazepam (Lorazepam 2 Mg/Ml Vial) 2 mg IVPUSH Q2H PRN PRN Reason: Anxiety Melatonin (Melatonin 3 Mg Tablet) 6 mg PO BEDTIME PRN PRN Reason: Insomnia Multivitamins/Vitamin C (Multivitamin Tablet) 1 tab PO DAILY [facility] Last Admin: 08/28/23 08:55 Dose: 1 tab Documented By: MIGUELINA Ondansetron HCl (Ondansetron Hcl 4 Mg/2 Ml Vial) 4 mg IVPUSH Q8H PRN PRN Reason: Nausea and Vomiting Propranolol HCl (Propranolol Hcl 20 Mg Tablet) 20 mg PO BID [facility]; Protocol Last Admin: 08/28/23 08:55 Dose: 20 mg Documented By: MIGUELINA Sodium Chloride (0.9 % Sodium Chloride Flush 3 Ml Syringe) 3 ml IVFLUSH QSHIFT [facility] Last Admin: 08/28/23 07:24 Dose: Not Given Documented By: MIGUELINA Non-Admin Reason: See Note Labs 08/28/23 05:27 08/28/23 05:27 Labs: Laboratory Results - last 24 hr 08/27/23 08/27/23 08/27/23 10:39 10:43 19:18 MCV MCH MCHC RDW Plt Count MPV Immature Gran % (Auto) Neut % (Auto) Lymph % (Auto) [place] % (Auto) Eos % (Auto) Baso % (Auto) Lymph # (Auto) [place] # (Auto) Eos # (Auto) Baso # (Auto) Abs Immat Gran (auto) Absolute Neuts (auto) Absolute Nucleated RBC Nucleated RBC % (auto) Anion Gap 14 Estim Creat Clear Calc 39.8 Estimated GFR 58 POC Glucose 182 H 111 Random Glucose 179 H Calcium 11.2 H D Magnesium 2.3 Total Bilirubin 0.4 Direct Bilirubin 0.1 AST 66 H ALT 179 H Alkaline Phosphatase 108 Total Protein 7.3 Albumin 4.3 Lipase 19 Urine Color Urine Appearance Urine pH Ur Specific [place] Urine Protein Urine Glucose (UA) Urine Ketones Urine Blood Urine Nitrite Ur Leukocyte Esterase Urine RBC Urine WBC Ur Squamous Epith Cells Urine Bacteria Hyaline Casts [place] 0.36 L 08/28/23 08/28/23 00:29 05:27 MCV 89.1 MCH 29.1 MCHC 32.7 RDW 13.2 Plt Count 334 MPV 9.5 Immature Gran % (Auto) 0.7 H Neut % (Auto) 78.6 H Lymph % (Auto) 8.7 L [place] % (Auto) 9.8 Eos % (Auto) 1.7 Baso % (Auto) 0.5 Lymph # (Auto) 0.9 L [place] # (Auto) 1.0 Eos # (Auto) 0.2 Baso # (Auto) 0.1 Abs Immat Gran (auto) 0.07 H Absolute Neuts (auto) 8.3 Absolute Nucleated RBC 0.000 Nucleated RBC % (auto) 0.0 Anion Gap 15 Estim Creat Clear Calc 46.7 Estimated GFR > 60 POC Glucose Random Glucose 79 Calcium 9.5 D Magnesium Total Bilirubin Direct Bilirubin AST ALT Alkaline Phosphatase Total Protein Albumin Lipase Urine Color Yellow Urine Appearance Clear Urine pH 5.5 Ur Specific [place] 1.010 Urine Protein Negative Urine Glucose (UA) Negative Urine Ketones Trace Urine Blood Negative Urine Nitrite Negative Ur Leukocyte Esterase Moderate (2+) H Urine RBC 0-2 Urine WBC 6-10 H Ur Squamous Epith Cells 3-5 Urine Bacteria None Seen Hyaline Casts 3-5 [place] Assessment and Plan (1) Ataxia: Status: Acute Plan 72F PMH htn, adhd, anxiety, depression, presented with afitation, tremors, ataxia agitation and tremors, concern for seritonin syndrome will start periactin and hold other meds psych and neuro following htn propanolo, amlodipine dvt prophlyaxis - lovenox full cdoe reason for continued hospitalization:still with tremor and ataxia Time Spent With Patient Time: Total time managing care of this patient today ____ minutes. Quality Stroke Does the patient have a stroke diagnosis?: No VTE Prior VTE?: No VTE Risk Level:: Medical - moderate - high VTE Device Contraindication: Treatment Not Indicated VTE Drug Contraindication: N/A - Med Ordered
[2023-08-28] MEDS: Cyproheptadine HCl 4 MG TABLET 2 MG PO ×3 (11:13→19:55)
--- NOTE | 2023-08-28 13:11 | PC.NURSE ---
Poison control called and spoke with RN. information was given and all recommendations were sent to MD Yanes.
[2023-08-28 19:50] LABS: Prothrombin Time 12.3 SEC (11.1-13.3)
[2023-08-28 19:55] LABS: Alanine Aminotransferase 148 U/L (0-31); Albumin Level 3.3 g/dL (3.5-5.0); Alkaline Phosphatase 87 U/L (39-117); Aspartate Amino Transferase 60 U/L (5-31); Bilirubin Direct 0.1 mg/dL (0.0-0.5); Bilirubin Total 0.3 mg/dL (0.0-1.0); Total Protein 5.5 g/dL (6.5-8.0)
[2023-08-28] MEDS: Enoxaparin Sodium 40 MG/0.4 ML SYRINGE SUBCUT (19:55)
[2023-08-28] MEDS: Ascorbic Acid 500 MG TABLET 2000 MG PO (19:55)
[2023-08-28 19:56] LABS: Acetaminophen LAB < 17 mcg/mL (<30); Salicylate < 5.0 mg/dL (15-30)
[2023-08-28] MEDS: 0.9 % Sodium Chloride Flush 3 ML SYRINGE IVFLUSH (19:56)
[2023-08-28] MEDS: Fluticasone Propionate Nasal 16 GM SPRAY 1 SPRAY NOSTRIL-B (19:56)
[2023-08-29] VITALS: BP 148/62; PULSE 85; RESP 18; TEMP 37.1; O2SAT 93
[2023-08-29 04:00] VITALS: BP 128/83; PULSE 104; RESP 20; TEMP 36.8; O2SAT 93
[2023-08-29] MEDS: 0.9 % Sodium Chloride 1,000 ML 100 ML IVCONT ×2 (05:05→15:20)
[2023-08-29 07:10] VITALS: BP 153/75; PULSE 93; RESP 18; TEMP 36.5; O2SAT 95
[2023-08-29 07:33] LABS: Hematocrit 39.6 % (37.0-47.0); Hemoglobin 12.9 g/dl (12.0-16.0); Mean Corpuscular HGB Conc 32.6 g/dl (31.0-35.0); Mean Corpuscular Hemoglobin 28.8 pg (27.0-33.0); Mean Corpuscular Volume 88.4 fL (80.0-98.0); Mean Platelet Volume 9.9 fL (9.4-12.3); Platelet Count 314 X10*3/uL (160-400); Red Blood Count 4.48 X10*6/uL (4.20-5.50); Red Cell Distribution Width 13.1 % (11.0-16.0)
[2023-08-29 07:52] LABS: Alanine Aminotransferase 143 U/L (0-31); Albumin Level 3.4 g/dL (3.5-5.0); Alkaline Phosphatase 89 U/L (39-117); Anion Gap 15 (12-20); Aspartate Amino Transferase 59 U/L (5-31); Bilirubin Direct 0.2 mg/dL (0.0-0.5); Bilirubin Total 0.4 mg/dL (0.0-1.0); Blood Urea Nitrogen 11 mg/dL (9-16); Calcium 9.6 mg/dL (8.4-10.2); Carbon Dioxide 20 mmol/L (22-29); Chloride 109 mmol/L (96-108); Creatinine Clr Calc Pharmacy 54.7; Estimated Glomerular Filt Rate > 60; Glucose Fasting 79 mg/dL (60-99); Potassium 3.6 mmol/L (3.3-5.1); Sodium 140 mmol/L (135-145); Total Protein 5.7 g/dL (6.5-8.0)
[2023-08-29] MEDS: Cyproheptadine HCl 4 MG TABLET 2 MG PO ×2 (08:19→21:28)
[2023-08-29] MEDS: Multivitamin TABLET 1 TAB PO (08:19)
[2023-08-29] MEDS: Propranolol HCL 20 MG TABLET PO ×2 (08:19→21:31)
[2023-08-29] MEDS: LORazepam 2 MG/ML VIAL IVPUSH ×2 (08:23→11:13)
[2023-08-29] MEDS: amLODIPine Besylate 10 MG TABLET PO (08:25)
[2023-08-29] MEDS: Fluticasone Propionate Nasal 16 GM SPRAY 1 SPRAY NOSTRIL-B (08:27)
[2023-08-29 10:49] VITALS: BP 152/74; PULSE 92; RESP 17; TEMP 36.4; O2SAT 95
[2023-08-29] MEDS: Primidone 50 MG TABLET 25 MG PO ×2 (11:13→21:30)
--- NOTE | 2023-08-29 12:15 | MHC.CM.PN ---
IMM given 08/29.
--- NOTE | 2023-08-29 13:14 | HO.PM.IMPN ---
Subjective Subjective Date of Service: 08/29/23 Interval History: tremor improving Physical Exam Vital Signs: Vital Signs: Last Vital Signs Temp 97.6 F 08/29/23 10:49 Pulse 92 08/29/23 10:49 Resp 17 08/29/23 10:49 BP 152/74 H 08/29/23 10:49 Pulse Ox 95 08/29/23 10:49 O2 Del Method Room Air 08/29/23 10:49 BMI result Body Mass Index 20.8 resting tremor, diffuse Objective Data Active Medications Acetaminophen (Acetaminophen 325 Mg Tablet) 650 mg PO Q6H PRN PRN Reason: Pain, Mild (Pain Scale 1-3) Acetaminophen (Acetaminophen Supp 650 Mg Supp.Rect) 650 mg [place] Q6H PRN PRN Reason: Pain, Mild (Pain Scale 1-3) Amlodipine Besylate (Amlodipine Besylate 10 Mg Tablet) 10 mg PO DAILY [facility]; Protocol Last Admin: 08/29/23 08:25 Dose: 10 mg Documented By: ASHWINI Ascorbic Acid (Ascorbic Acid 500 Mg Tablet) 2,000 mg PO BEDTIME ON [facility] OF [facility] Last Admin: 08/28/23 19:55 Dose: 2,000 mg Documented By: BERENICE Cyproheptadine HCl (Cyproheptadine Hcl 4 Mg Tablet) 2 mg PO TID ON [facility] OF [facility] Last Admin: 08/29/23 08:19 Dose: 2 mg Documented By: ASHWINI Enoxaparin Sodium (Enoxaparin Sodium 40 Mg/0.4 Ml Syringe) 40 mg SUBCUT Q24H ON [facility] Last Admin: 08/28/23 19:55 Dose: 40 mg Documented By: BERENICE Fluticasone Propionate (Fluticasone Propionate Nasal 16 Gm [place]) 1 spray NOSTRIL-B BID ON [facility] OF [facility] Last Admin: 08/29/23 08:27 Dose: 1 spray Documented By: ASHWINI Sodium Chloride (Ns) 1,000 mls @ 100 mls/hr IVCONT .Q10H ON [facility] OF [facility] Last Admin: 08/29/23 05:05 Dose: 100 mls/hr Documented By: BERENICE Lorazepam (Lorazepam 2 Mg/Ml Vial) 2 mg IVPUSH Q2H PRN PRN Reason: Anxiety Last Admin: 08/29/23 11:13 Dose: 2 mg Documented By: ASHWINI Melatonin (Melatonin 3 Mg Tablet) 6 mg PO BEDTIME PRN PRN Reason: Insomnia Multivitamins/Vitamin C (Multivitamin Tablet) 1 tab PO DAILY [facility] Last Admin: 08/29/23 08:19 Dose: 1 tab Documented By: ASHWINI Ondansetron HCl (Ondansetron Hcl 4 Mg/2 Ml Vial) 4 mg IVPUSH Q8H PRN PRN Reason: Nausea and Vomiting Primidone (Primidone 50 Mg Tablet) 25 mg PO BID [facility] Last Admin: 08/29/23 11:13 Dose: 25 mg Documented By: ASHWINI Propranolol HCl (Propranolol Hcl 20 Mg Tablet) 20 mg PO BID [facility]; Protocol Last Admin: 08/29/23 08:19 Dose: 20 mg Documented By: ASHWINI Sodium Chloride (0.9 % Sodium Chloride Flush 3 Ml Syringe) 3 ml IVFLUSH QSHIFT ON [facility] Last Admin: 08/29/23 08:21 Dose: Not Given Documented By: ASHWINI Non-Admin Reason: IV Running Labs 08/29/23 06:55 08/29/23 06:55 Labs: Laboratory Results - last 24 hr 08/28/23 08/29/23 18:55 06:55 MCV 88.4 MCH 28.8 MCHC 32.6 RDW 13.1 Plt Count 314 MPV 9.9 Absolute Nucleated RBC 0.000 Nucleated RBC % (auto) 0.0 PT 12.3 INR 1.0 Anion Gap 15 Estim Creat Clear Calc 54.7 Estimated GFR > 60 Fasting Glucose 79 Calcium 9.6 Total Bilirubin 0.3 0.4 Direct Bilirubin 0.1 0.2 AST 60 H 59 H ALT 148 H 143 H Alkaline Phosphatase 87 89 Total Protein 5.5 L 5.7 L Albumin 3.3 L 3.4 L Hold Yellow Top See Note Salicylates < 5.0 L Acetaminophen < 17 Microbiology Microbiology Results: Microbiology 08/28/23 Unknown Urine Culture - Final Urine Catheterized - Straight Catheter Assessment and Plan (1) Ataxia: Status: Acute Plan 72F PMH htn, adhd, anxiety, depression, presented with afitation, tremors, ataxia agitation and tremors, concern for seritonin syndrome will start periactin and hold other meds psych and neuro following will start primidone 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 Quality Stroke Does the patient have a stroke diagnosis?: No VTE Prior VTE?: No VTE Risk Level:: Medical - moderate - high VTE Device Contraindication: Treatment Not Indicated VTE Drug Contraindication: N/A - Med Ordered
[2023-08-29 16:00] VITALS: BP 143/70; PULSE 86; RESP 18; TEMP 36.1; O2SAT 92
--- NOTE | 2023-08-29 17:18 | PC.NURSE ---
Patient is A&OX3 soft spoken. Very anxious this am 2MG IV Ativan given this am with some effect although continues to pull at lines and tubes and trying to get out of bed second dose given at lunchtime with effect. Per pt did not sleep last night resting in bed in afternoon. Camera placed in room for safety. South cath with clear yellow urine. Denies pain/discomfort. Repos in bed for comfort. Refuses breakfast per pt doesn't have appetite. IV fluids infusing per order. at bedside in afternoon updated by Dr Yanes. Will continue to monitor and report changes
[2023-08-29 19:17] VITALS: BP 151/74; PULSE 81; RESP 19; TEMP 36.8; O2SAT 93
[2023-08-29] MEDS: Enoxaparin Sodium 40 MG/0.4 ML SYRINGE SUBCUT (21:27)
[2023-08-29] MEDS: Ascorbic Acid 500 MG TABLET 2000 MG PO (21:29)
[2023-08-29] MEDS: Acetaminophen 325 MG TABLET 650 MG PO (21:42)
[2023-08-29] MEDS: 0.9 % Sodium Chloride Flush 3 ML SYRINGE IVFLUSH (21:45)
[2023-08-30] VITALS (7 sets, daily range): BP systolic 149–186; BP diastolic 70–91; PULSE 78–97; RESP 17–20; TEMP 36.1–36.8; O2SAT 94–96
[2023-08-30] MEDS: Cyproheptadine HCl 4 MG TABLET 2 MG PO ×3 (09:50→20:41)
[2023-08-30] MEDS: Propranolol HCL 20 MG TABLET PO ×2 (09:50→20:30)
[2023-08-30] MEDS: amLODIPine Besylate 10 MG TABLET PO (09:50)
[2023-08-30] MEDS: Primidone 50 MG TABLET 25 MG PO ×2 (09:51→20:30)
[2023-08-30] MEDS: 0.9 % Sodium Chloride Flush 3 ML SYRINGE IVFLUSH ×3 (09:52→20:42)
[2023-08-30] MEDS: Fluticasone Propionate Nasal 16 GM SPRAY 1 SPRAY NOSTRIL-B (09:52)
--- NOTE | 2023-08-30 11:20 | HO.PM.IMPN ---
Subjective Subjective Date of Service: 08/30/23 Interval History: tremor imprvoed but very confused Physical Exam Vital Signs: Vital Signs: Last Vital Signs Temp 97.2 F 08/30/23 07:33 Pulse 87 08/30/23 07:33 Resp 18 08/30/23 07:33 BP 180/88 H 08/30/23 07:33 Pulse Ox 94 08/30/23 07:33 O2 Del Method Room Air 08/30/23 07:33 BMI result Body Mass Index 20.8 very confused today, but less tremor Objective Data Active Medications Acetaminophen (Acetaminophen 325 Mg Tablet) 650 mg PO Q6H PRN PRN Reason: Pain, Mild (Pain Scale 1-3) Last Admin: 08/29/23 21:42 Dose: 650 mg Documented By: FRANCOIS Acetaminophen (Acetaminophen Supp 650 Mg Supp.Rect) 650 mg [place] Q6H PRN PRN Reason: Pain, Mild (Pain Scale 1-3) Amlodipine Besylate (Amlodipine Besylate 10 Mg Tablet) 10 mg PO DAILY [facility]; Protocol Last Admin: 08/30/23 09:50 Dose: 10 mg Documented By: ZAN Ascorbic Acid (Ascorbic Acid 500 Mg Tablet) 2,000 mg PO BEDTIME [facility] Last Admin: 08/29/23 21:29 Dose: 2,000 mg Documented By: FRANCOIS Cyproheptadine HCl (Cyproheptadine Hcl 4 Mg Tablet) 2 mg PO TID [facility] Last Admin: 08/30/23 09:50 Dose: 2 mg Documented By: ZAN Enoxaparin Sodium (Enoxaparin Sodium 40 Mg/0.4 Ml Syringe) 40 mg SUBCUT Q24H [facility] Last Admin: 08/29/23 21:27 Dose: 40 mg Documented By: FRANCOIS Fluticasone Propionate (Fluticasone Propionate Nasal 16 Gm [place]) 1 spray NOSTRIL-B BID [facility] Last Admin: 08/30/23 09:52 Dose: 1 spray Documented By: ZAN Lorazepam (Lorazepam 2 Mg/Ml Vial) 2 mg IVPUSH Q2H PRN PRN Reason: Anxiety Last Admin: 08/29/23 11:13 Dose: 2 mg Documented By: ASHWINI Melatonin (Melatonin 3 Mg Tablet) 6 mg PO BEDTIME PRN PRN Reason: Insomnia Multivitamins/Vitamin C (Multivitamin Tablet) 1 tab PO DAILY [facility] Last Admin: 08/30/23 10:02 Dose: Not Given Documented By: ZAN Non-Admin Reason: Patient Refused Ondansetron HCl (Ondansetron Hcl 4 Mg/2 Ml Vial) 4 mg IVPUSH Q8H PRN PRN Reason: Nausea and Vomiting Primidone (Primidone 50 Mg Tablet) 25 mg PO BID [facility] Last Admin: 08/30/23 09:51 Dose: 25 mg Documented By: ZAN Propranolol HCl (Propranolol Hcl 20 Mg Tablet) 20 mg PO BID [facility]; Protocol Last Admin: 08/30/23 09:50 Dose: 20 mg Documented By: ZAN Sodium Chloride (0.9 % Sodium Chloride Flush 3 Ml Syringe) 3 ml IVFLUSH QSHIFT [facility] Last Admin: 08/30/23 09:52 Dose: 3 ml Documented By: ZAN Labs 08/29/23 06:55 08/29/23 06:55 Microbiology Microbiology Results: Microbiology 08/28/23 Unknown Urine Culture - Final Urine Catheterized - Straight Catheter Assessment and Plan (1) Ataxia: Status: Acute Plan 72F PMH htn, adhd, anxiety, depression, presented with afitation, tremors, ataxia agitation and tremors, concern for seritonin syndrome periactin and hold other meds psych and neuro following started primidone with improvement in essential tremor dysphagia 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 Quality Stroke Does the patient have a stroke diagnosis?: No VTE Prior VTE?: No VTE Risk Level:: Medical - moderate - high VTE Device Contraindication: Treatment Not Indicated VTE Drug Contraindication: N/A - Med Ordered
[2023-08-30] MEDS: Enoxaparin Sodium 40 MG/0.4 ML SYRINGE SUBCUT (20:30)
[2023-08-30] MEDS: Ascorbic Acid 500 MG TABLET 2000 MG PO (20:41)
[2023-08-31] VITALS (7 sets, daily range): BP systolic 152–172; BP diastolic 70–92; PULSE 80–103; RESP 17–18; TEMP 36–37.3; O2SAT 93–96
[2023-08-31 06:34] LABS: Hematocrit 40.6 % (37.0-47.0); Hemoglobin 13.6 g/dl (12.0-16.0); Mean Corpuscular HGB Conc 33.5 g/dl (31.0-35.0); Mean Corpuscular Hemoglobin 29.4 pg (27.0-33.0); Mean Corpuscular Volume 87.9 fL (80.0-98.0); Mean Platelet Volume 9.9 fL (9.4-12.3); Platelet Count 328 X10*3/uL (160-400); Red Blood Count 4.62 X10*6/uL (4.20-5.50); Red Cell Distribution Width 12.7 % (11.0-16.0); White Blood Count 8.8 X10*3/uL (4.8-10.8)
[2023-08-31 06:51] LABS: Alanine Aminotransferase 144 U/L (0-31); Albumin Level 3.5 g/dL (3.5-5.0); Alkaline Phosphatase 91 U/L (39-117); Anion Gap 19 (12-20); Aspartate Amino Transferase 59 U/L (5-31); Bilirubin Direct 0.2 mg/dL (0.0-0.5); Bilirubin Total 0.3 mg/dL (0.0-1.0); Blood Urea Nitrogen 9 mg/dL (9-16); Calcium 9.6 mg/dL (8.4-10.2); Carbon Dioxide 20 mmol/L (22-29); Chloride 101 mmol/L (96-108); Estimated Glomerular Filt Rate > 60; Glucose Fasting 67 mg/dL (60-99); Potassium 3.6 mmol/L (3.3-5.1); Sodium 136 mmol/L (135-145); Total Protein 6.1 g/dL (6.5-8.0)
[2023-08-31] MEDS: Cyproheptadine HCl 4 MG TABLET 2 MG PO ×2 (08:06→22:05)
[2023-08-31] MEDS: amLODIPine Besylate 10 MG TABLET PO (08:06)
[2023-08-31] MEDS: Propranolol HCL 20 MG TABLET PO ×2 (08:06→22:04)
[2023-08-31] MEDS: Multivitamin TABLET 1 TAB PO (08:06)
[2023-08-31] MEDS: Primidone 50 MG TABLET 25 MG PO ×2 (08:07→22:04)
[2023-08-31] MEDS: 0.9 % Sodium Chloride Flush 3 ML SYRINGE IVFLUSH ×2 (08:10→22:07)
--- NOTE | 2023-08-31 08:53 | HO.PM.IMPN ---
Subjective Subjective Date of Service: 08/31/23 Interval History: less confused, tremor improved Physical Exam Vital Signs: Vital Signs: Last Vital Signs Temp 96.8 F 08/31/23 07:01 Pulse 101 H 08/31/23 07:01 Resp 18 08/31/23 07:01 BP 152/70 H 08/31/23 07:03 Pulse Ox 94 08/31/23 03:33 O2 Del Method Room Air 08/31/23 03:33 BMI result Body Mass Index 20.8 resting tremor Objective Data Active Medications Acetaminophen (Acetaminophen 325 Mg Tablet) 650 mg PO Q6H PRN PRN Reason: Pain, Mild (Pain Scale 1-3) Last Admin: 08/29/23 21:42 Dose: 650 mg Documented By: FRANCOIS Acetaminophen (Acetaminophen Supp 650 Mg Supp.Rect) 650 mg [place] Q6H PRN PRN Reason: Pain, Mild (Pain Scale 1-3) Amlodipine Besylate (Amlodipine Besylate 10 Mg Tablet) 10 mg PO DAILY [facility]; Protocol Last Admin: 08/31/23 08:06 Dose: 10 mg Documented By: FANNIE Ascorbic Acid (Ascorbic Acid 500 Mg Tablet) 2,000 mg PO BEDTIME [facility] Last Admin: 08/30/23 20:41 Dose: 1,000 mg Documented By: BETH Comments: pt refuses to take the rest of the medication Cyproheptadine HCl (Cyproheptadine Hcl 4 Mg Tablet) 2 mg PO TID [facility] Last Admin: 08/31/23 08:06 Dose: 2 mg Documented By: FANNIE Enoxaparin Sodium (Enoxaparin Sodium 40 Mg/0.4 Ml Syringe) 40 mg SUBCUT Q24H [facility] Last Admin: 08/30/23 20:30 Dose: 40 mg Documented By: BETH Fluticasone Propionate (Fluticasone Propionate Nasal 16 Gm [place]) 1 spray NOSTRIL-B BID [facility] Last Admin: 08/31/23 08:15 Dose: Not Given Documented By: FANNIE Non-Admin Reason: Patient Refused Lorazepam (Lorazepam 2 Mg/Ml Vial) 2 mg IVPUSH Q2H PRN PRN Reason: Anxiety Last Admin: 08/29/23 11:13 Dose: 2 mg Documented By: ASHWINI Melatonin (Melatonin 3 Mg Tablet) 6 mg PO BEDTIME PRN PRN Reason: Insomnia Multivitamins/Vitamin C (Multivitamin Tablet) 1 tab PO DAILY [facility] Last Admin: 08/31/23 08:06 Dose: 1 tab Documented By: FANNIE Ondansetron HCl (Ondansetron Hcl 4 Mg/2 Ml Vial) 4 mg IVPUSH Q8H PRN PRN Reason: Nausea and Vomiting Primidone (Primidone 50 Mg Tablet) 25 mg PO BID [facility] Last Admin: 08/31/23 08:07 Dose: 25 mg Documented By: FANNIE Propranolol HCl (Propranolol Hcl 20 Mg Tablet) 20 mg PO BID [facility]; Protocol Last Admin: 08/31/23 08:06 Dose: 20 mg Documented By: FANNIE Sodium Chloride (0.9 % Sodium Chloride Flush 3 Ml Syringe) 3 ml IVFLUSH QSHIFT [facility] Last Admin: 08/31/23 08:10 Dose: 3 ml Documented By: FANNIE Labs 08/31/23 05:50 08/31/23 05:50 Labs: Laboratory Results - last 24 hr 08/31/23 05:50 MCV 87.9 MCH 29.4 MCHC 33.5 RDW 12.7 Plt Count 328 MPV 9.9 Absolute Nucleated RBC 0.000 Nucleated RBC % (auto) 0.0 Anion Gap 19 Estim Creat Clear Calc 62.0 Estimated GFR > 60 Fasting Glucose 67 Calcium 9.6 Total Bilirubin 0.3 Direct Bilirubin 0.2 AST 59 H ALT 144 H Alkaline Phosphatase 91 Total Protein 6.1 L Albumin 3.5 Assessment and Plan (1) Ataxia: Status: Acute Plan 72F PMH htn, adhd, anxiety, depression, presented with agitation, tremors, ataxia agitation and tremors, concern for seritonin syndrome periactin and hold other meds psych and neuro following started primidone with improvement in essential tremor 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 Quality Stroke Does the patient have a stroke diagnosis?: No VTE Prior VTE?: No VTE Risk Level:: Medical - moderate - high VTE Device Contraindication: Treatment Not Indicated VTE Drug Contraindication: N/A - Med Ordered
--- NOTE | 2023-08-31 12:02 | MHC.CLN ---
NUTRITION PER [employer] MACHINE OPERATOR COMMUNICATION, DIET CHANGED TO PUREE CONSISTENCY PER PATIENT PREFERENCE. ADDING FORTIFIED ICE CREAM TID TO INCREASE NUTRITIONAL INTAKE. PROVIDES [address], [address] TO MONITOR WEEKLY.
--- NOTE | 2023-08-31 15:12 | MHC.SL.SWA ---
Risk of Aspiration Due to: Neurological Condition Poor PO Intake Weak Cough Weak Voice Dysphasia Diet Status: DOWNGRADE to NDD1 d/t patient preference Liquid Consistency and Strategies for Safe Swallow: Liquid Intake Recommendation: Thin Solid Food Consistency: Dietary Recommendations: NDD1 per patient request Additional Modifications to Solid Foods: Foods to be moistened in sauce/gravy Oral Medication Intake: Crushed with Puree Please contact the pharmacy regarding appropriate crushable or liquid drug formulations that are available whenever modified delivery is recommended. Compensatory Strategies and Precautions to be Taken for Safe Swallow: Sitting Upright (90 deg) Small Bites and Sips Alternate Liquids/Solids Oral Check Supervision While Eating and Drinking for Safe Swallow: Intermittent Supervision Recommendation for Speech: Further Testing Needed Inpatient Speech Therapy Comment: Patient presents w/ lingual tremor and reduced speed/ control of tongue. Patient seemingly describing congestion & thick phlegm production exacerbated by sensation of PO intake. Reported symptoms may be characteristic of post-nasal drip. Pt's reports hx of benign nodules. Recommend ENT referral; patient reports upcoming ENT appointment on September 29. Recommend PUREE solids (NDD1) d/t patient's reported preference and refusal to trial more advanced solids. Recommend thin liquids and pills crushed in puree. Recommend supplemental nutrition (Ensure/Thrive/Magic Cup) d/t limited PO intake and preference for puree solids. MD, RD, RN notified via [place]. FACULTY NEUROPSYCHOLOGIST to continue to follow. Photoengraving Sketch Maker Clinican/Clinical Fellow: No Supervisory Statement: I have reviewed and agree with the student/clinical fellow's documentation: N/A Speech Language Pathologist: Keiko Powell M.A., CCC-FACULTY NEUROPSYCHOLOGIST
--- NOTE | 2023-08-31 15:17 | PC.NURSE ---
Savage dcd this am at 0800. Pt assisted to BR but unable to void. Bladder scanned for [address] Yanes notified, order to replace savage. #16F placed with 500ml pale yellow urine out
--- NOTE | 2023-08-31 18:35 | PC.NURSE ---
Pt with increasing suspicion of care as the shift progresses. Dr Shearer in to see pt. this evening. No new orders at this time
[2023-08-31] MEDS: Melatonin 3 MG TABLET 6 MG PO (22:04)
[2023-08-31] MEDS: Enoxaparin Sodium 40 MG/0.4 ML SYRINGE SUBCUT (22:04)
[2023-08-31] MEDS: Ascorbic Acid 500 MG TABLET 2000 MG PO (22:04)
--- NOTE | 2023-08-31 22:46 | P.CNPS_ITS ---
History of Present Illness Date of Service: 08/31/23 Chief Complaint: agitation Reason for Consult: Pt adm from er secondary to serotonin syndrome Requesting physician: Nam Yanes Sources of Information: patient interviewed and chart reviewed HPI Narrative: Pt is a 72 yo female with a hx of depression tx resistant. She was referred to er secondary to weakness tremor dec appetite worsening confusion . Pt has had multiple medication trials, short course of ect , has most recently been on proxac 60,clomipramine 50 hs , rexulti propranolol 20 bid. pt has hx htn , and essential tremor. Hx psych hosp IOL rocío psych No clear trigger to dep episodes . Had recently had tx with spravato x 7 tx Past Psychiatric History: -Pt sees Dr. Shearer in OP setting recent hospitalization at the [facility] Has had often on relapses over the past year and half -Remote hx of IPLOC 12 yrs ago, recent admissions at [facility] since [place] with at least 4 admissions in the last 2 years [facility] Medical History Depression Hypothyroidism ZAC (generalized anxiety disorder) Hypertension ADHD (attention deficit hyperactivity disorder) Surgical History H/O thumb surgery H/O cone biopsy of cervix Family History: Bipolar disorder Social History: The patient is 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 she does occasionally smoke marijuana Trauma History: NA Diagnostics Vital Signs (24Hr): Vital Signs - 24 hr 08/30/23 23:16 08/31/23 03:33 08/31/23 03:56 Temperature 97.8 F 97.6 F Pulse Rate 89 80 Respiratory Rate 18 18 Blood Pressure 172/70 H 162/84 H Pulse Oximetry 94 94 Oxygen Delivery Method Room Air Room Air 08/31/23 07:01 08/31/23 07:03 08/31/23 11:23 Temperature 96.8 F 98 F Pulse Rate 101 H 89 Respiratory Rate 18 17 Blood Pressure 172/79 H 152/70 H 168/92 H Pulse Oximetry 96 Oxygen Delivery Method Room Air 08/31/23 15:24 08/31/23 19:46 Temperature 99.2 F 97.7 F Pulse Rate 103 H 101 H Respiratory Rate 18 18 Blood Pressure 158/78 H 172/82 H Pulse Oximetry 93 93 Oxygen Delivery Method Room Air Room Air BMI result Body Mass Index 20.8 Labs 08/31/23 05:50 08/31/23 05:50 Labs: Laboratory Results - last 48 hr 08/31/23 05:50 WBC 8.8 RBC 4.62 Hgb 13.6 Hct 40.6 MCV 87.9 MCH 29.4 MCHC 33.5 RDW 12.7 Plt Count 328 MPV 9.9 Absolute Nucleated RBC 0.000 Nucleated RBC % (auto) 0.0 Sodium 136 Potassium 3.6 Chloride 101 Carbon Dioxide 20 L Anion Gap 19 BUN 9 Creatinine 0.61 Estim Creat Clear Calc 62.0 Estimated GFR > 60 Fasting Glucose 67 Calcium 9.6 Total Bilirubin 0.3 Direct Bilirubin 0.2 AST 59 H ALT 144 H Alkaline Phosphatase 91 Total Protein 6.1 L Albumin 3.5 Mental Status Exam Mental Status Exam Narrative: Sad looking anxipous tremor noted Patient Appearance: Fatigued and Disheveled Patient Orientation: Person, Place and Situation Level of Consciousness: Disoriented and Lethargic Patient Behavior: Passive and Fatigued Mood Description: Suspicious, Depressed, Blunted and Apprehensive Affect Description: Constricted, Anxious and Apprehensive Patient Cognition Impaired: No Ability to Follow Directions: Fair (Difficulty with concentration) Speech Pattern: Slurred and Rambling Memory Description: Recent Impaired and Working Impaired Hallucinations: None Delusions: Not Present Thought Process: Slowed Thinking Thought Content: positive for Preoccupation, positive for Slowed Thinking, negative for Suicidal Ideation or negative for Homicidal Ideation Depressive Symptoms: Increased Anxiety, Increased Irritability, Hopelessness, Increased Fatigue, Loss of Energy and Difficulty Concentrating Judgement: Fair Judgement and Insight: Tremulous distracted variable attention Medications Medications Current Medications Acetaminophen (Acetaminophen 325 Mg Tablet) 650 mg PO Q6H PRN PRN Reason: Pain, Mild (Pain Scale 1-3) Last Admin: 08/29/23 21:42 Dose: 650 mg Acetaminophen (Acetaminophen Supp 650 Mg Supp.Rect) 650 mg PA Q6H PRN PRN Reason: Pain, Mild (Pain Scale 1-3) Amlodipine Besylate (Amlodipine Besylate 10 Mg Tablet) 10 mg PO DAILY [facility]; Protocol Last Admin: 08/31/23 08:06 Dose: 10 mg Ascorbic Acid (Ascorbic Acid 500 Mg Tablet) 2,000 mg PO BEDTIME [facility] Last Admin: 08/31/23 22:04 Dose: 2,000 mg Cyproheptadine HCl (Cyproheptadine Hcl 4 Mg Tablet) 2 mg PO TID [facility] Last Admin: 08/31/23 22:05 Dose: 2 mg Enoxaparin Sodium (Enoxaparin Sodium 40 Mg/0.4 Ml Syringe) 40 mg SUBCUT Q24H [facility] Last Admin: 08/31/23 22:04 Dose: 40 mg Fluticasone Propionate (Fluticasone Propionate Nasal 16 Gm [place]) 1 spray NOSTRIL-B BID [facility] Last Admin: 08/31/23 22:15 Dose: Not Given Lorazepam (Lorazepam 2 Mg/Ml Vial) 2 mg IVPUSH Q2H PRN PRN Reason: Anxiety Last Admin: 08/29/23 11:13 Dose: 2 mg Melatonin (Melatonin 3 Mg Tablet) 6 mg PO BEDTIME PRN PRN Reason: Insomnia Last Admin: 08/31/23 22:04 Dose: 6 mg Multivitamins/Vitamin C (Multivitamin Tablet) 1 tab PO DAILY [facility] Last Admin: 08/31/23 08:06 Dose: 1 tab Ondansetron HCl (Ondansetron Hcl 4 Mg/2 Ml Vial) 4 mg IVPUSH Q8H PRN PRN Reason: Nausea and Vomiting Primidone (Primidone 50 Mg Tablet) 25 mg PO BID [facility] Last Admin: 08/31/23 22:04 Dose: 25 mg Propranolol HCl (Propranolol Hcl 20 Mg Tablet) 20 mg PO BID [facility]; Protocol Last Admin: 08/31/23 22:04 Dose: 20 mg Sodium Chloride (0.9 % Sodium Chloride Flush 3 Ml Syringe) 3 ml IVFLUSH QSHIFT [facility] Last Admin: 08/31/23 22:07 Dose: 3 ml Allergies Allergies Allergy/AdvReac Type Severity Reaction Status Date / Time No Known Allergies Allergy Verified 08/27/23 10:27 Assessment & Plan Assessment & Plan (1) Serotonin syndrome: Status: Acute Code(s): G25.79 - Other drug induced movement disorders (2) Depression, major, severe recurrence: Status: Acute Code(s): F33.2 - Major depressive disorder, recurrent severe without psychotic features Assessment and Plan: pt has been adm with serotonin syndrome hold psych meds periactin for tx lorazepam prn some PI case reviewed with hospitalist and will need psych adm post Plan periactin Total time managing care of this patient today ____ minutes.
[2023-08-31] MEDS: LORazepam 2 MG/ML VIAL IVPUSH (23:56)
[2023-09-01] VITALS (7 sets, daily range): BP systolic 114–134; BP diastolic 59–78; PULSE 89–106; RESP 16–20; TEMP 36–36.7; O2SAT 91–96
[2023-09-01] MEDS: Cyproheptadine HCl 4 MG TABLET 2 MG PO ×3 (07:40→20:56)
[2023-09-01] MEDS: Multivitamin TABLET 1 TAB PO (07:40)
[2023-09-01] MEDS: Propranolol HCL 20 MG TABLET PO ×2 (07:41→20:57)
[2023-09-01] MEDS: amLODIPine Besylate 10 MG TABLET PO (07:41)
[2023-09-01] MEDS: Primidone 50 MG TABLET 25 MG PO ×2 (07:41→20:55)
[2023-09-01] MEDS: 0.9 % Sodium Chloride Flush 3 ML SYRINGE IVFLUSH (07:42)
[2023-09-01] MEDS: Fluticasone Propionate Nasal 16 GM SPRAY 1 SPRAY NOSTRIL-B ×2 (08:56→20:58)
--- NOTE | 2023-09-01 09:31 | P.PNIM_ITS ---
Subjective Subjective Date of Service: 09/01/23 Interval History: feel lousy tremor back to baseline Physical Exam 2 Vital Signs: Vital Signs: Last Vital Signs Temp 97.9 F 09/01/23 07:22 Pulse 93 09/01/23 07:22 Resp 16 09/01/23 07:22 BP 131/73 09/01/23 07:22 Pulse Ox 92 09/01/23 07:22 O2 Del Method Room Air 09/01/23 07:22 BMI result Body Mass Index 20.8 resting tremor Objective Data Active Medications Acetaminophen (Acetaminophen 325 Mg Tablet) 650 mg PO Q6H PRN PRN Reason: Pain, Mild (Pain Scale 1-3) Last Admin: 08/29/23 21:42 Dose: 650 mg Documented By: FRANCOIS Acetaminophen (Acetaminophen Supp 650 Mg Supp.Rect) 650 mg RI Q6H PRN PRN Reason: Pain, Mild (Pain Scale 1-3) Amlodipine Besylate (Amlodipine Besylate 10 Mg Tablet) 10 mg PO DAILY [facility]; Protocol Last Admin: 09/01/23 07:41 Dose: 10 mg Documented By: FANNIE Ascorbic Acid (Ascorbic Acid 500 Mg Tablet) 2,000 mg PO BEDTIME [facility] Last Admin: 08/31/23 22:04 Dose: 2,000 mg Documented By: THUY Cyproheptadine HCl (Cyproheptadine Hcl 4 Mg Tablet) 2 mg PO TID [facility] Last Admin: 09/01/23 07:40 Dose: 2 mg Documented By: FANNIE Enoxaparin Sodium (Enoxaparin Sodium 40 Mg/0.4 Ml Syringe) 40 mg SUBCUT Q24H [facility] Last Admin: 08/31/23 22:04 Dose: 40 mg Documented By: THUY Fluticasone Propionate (Fluticasone Propionate Nasal 16 Gm [place]) 1 spray NOSTRIL-B BID [facility] Last Admin: 09/01/23 08:56 Dose: 1 spray Documented By: FANNIE Lorazepam (Lorazepam 2 Mg/Ml Vial) 2 mg IVPUSH Q2H PRN PRN Reason: Anxiety Last Admin: 08/31/23 23:56 Dose: 2 mg Documented By: THUY Melatonin (Melatonin 3 Mg Tablet) 6 mg PO BEDTIME PRN PRN Reason: Insomnia Last Admin: 08/31/23 22:04 Dose: 6 mg Documented By: THUY Multivitamins/Vitamin C (Multivitamin Tablet) 1 tab PO DAILY [facility] Last Admin: 09/01/23 07:40 Dose: 1 tab Documented By: FANNIE Ondansetron HCl (Ondansetron Hcl 4 Mg/2 Ml Vial) 4 mg IVPUSH Q8H PRN PRN Reason: Nausea and Vomiting Primidone (Primidone 50 Mg Tablet) 25 mg PO BID [facility] Last Admin: 09/01/23 07:41 Dose: 25 mg Documented By: FANNIE Propranolol HCl (Propranolol Hcl 20 Mg Tablet) 20 mg PO BID [facility]; Protocol Last Admin: 09/01/23 07:41 Dose: 20 mg Documented By: FANNIE Sodium Chloride (0.9 % Sodium Chloride Flush 3 Ml Syringe) 3 ml IVFLUSH QSHIFT [facility] Last Admin: 09/01/23 07:42 Dose: 3 ml Documented By: FANNIE Labs 08/31/23 05:50 08/31/23 05:50 Assessment and Plan (1) Ataxia: Status: Acute Plan 72F PMH htn, adhd, anxiety, depression, presented with agitation, tremors, ataxia agitation and tremors, concern for seritonin syndrome periactin and hold other meds psych and neuro following started primidone with improvement in essential tremor appears to be close to baseline mentally and in regards to tremor, still much less ambulatory, plan for sTR at SNF dysphagia store person appreciated - pureed with thins urinary retention failed voiding trial 08/31/23 savage replaced, repeat trial when more ambulatory htn propanolol, amlodipine dvt prophlyaxis - lovenox full cdoe reason for continued hospitalization: snf bed Time Spent With Patient Time: Total time managing care of this patient today ____ minutes. Quality Stroke Does the patient have a stroke diagnosis?: No VTE Prior VTE?: No VTE Risk Level:: Medical - moderate - high VTE Device Contraindication: Treatment Not Indicated VTE Drug Contraindication: N/A - Med Ordered
[2023-09-01 13:50] LABS: Ammonia 46 umol/L (13-55)
--- NOTE | 2023-09-01 14:42 | MHC.SL.SWA ---
Speech Pathologist Impression: Risk of aspiration, oral phase dysphagia Risk of Aspiration Due to: Neurological Condition Poor PO Intake Weak Cough Weak Voice Dysphasia Diet Status: Recommend UPGRADE to GROUND SOLIDS (NDD2), continue w/ THIN liquids Liquid Consistency and Strategies for Safe Swallow: Liquid Intake Recommendation: Thin Liquid Intake Strategies: Small Sips Solid Food Consistency: Dietary Recommendations: Grnd/Mech Altered (NDD2) Additional Modifications to Solid Foods: Foods to be moistened in sauce/gravy Oral Medication Intake: Crushed with Puree Please contact the pharmacy regarding appropriate crushable or liquid drug formulations that are available whenever modified delivery is recommended. Compensatory Strategies and Precautions to be Taken for Safe Swallow: Sitting Upright (90 deg) Double Swallow Small Bites and Sips Alternate Liquids/Solids Rate of Ingestion Change Oral Check Supervision While Eating and Drinking for Safe Swallow: Intermittent Supervision Swallowing Recommended Treatments: Compens. Strategy Educat. Recommendation for Speech: Inpatient Speech Therapy Communication And Outreach Manager Clinican/Clinical Fellow: Yes: Brielle Kong Supervisory Statement: I have reviewed and agree with the student/clinical fellow's documentation: Yes Speech Language Pathologist: Jeannine Almaguer M.A., CCC-LEAF TINNER
[2023-09-01] MEDS: 0.9 % Sodium Chloride 1,000 ML 75 ML IVCONT (16:03)
[2023-09-01] MEDS: Enoxaparin Sodium 40 MG/0.4 ML SYRINGE SUBCUT (20:55)
[2023-09-01] MEDS: Ascorbic Acid 500 MG TABLET 2000 MG PO (20:55)
[2023-09-02] MEDS: Acetaminophen 325 MG TABLET 650 MG PO (02:03)
[2023-09-02] MEDS: Melatonin 3 MG TABLET 6 MG PO (02:03)
[2023-09-02 04:00] VITALS: BP 150/72; PULSE 90; RESP 16; TEMP 36.3; O2SAT 94
[2023-09-02] MEDS: 0.9 % Sodium Chloride 1,000 ML 75 ML IVCONT ×2 (06:12→14:20)
[2023-09-02 07:38] VITALS: BP 135/76; PULSE 91; RESP 18; TEMP 36.1; O2SAT 94
[2023-09-02] MEDS: Cyproheptadine HCl 4 MG TABLET 2 MG PO ×3 (08:12→20:23)
[2023-09-02] MEDS: Multivitamin TABLET 1 TAB PO (08:12)
[2023-09-02] MEDS: Primidone 50 MG TABLET 25 MG PO ×2 (08:13→20:25)
[2023-09-02] MEDS: Propranolol HCL 20 MG TABLET PO ×2 (08:13→20:25)
[2023-09-02] MEDS: amLODIPine Besylate 10 MG TABLET PO (08:13)
[2023-09-02] MEDS: Fluticasone Propionate Nasal 16 GM SPRAY 1 SPRAY NOSTRIL-B ×2 (08:17→22:55)
--- NOTE | 2023-09-02 09:45 | HO.PM.IMPN ---
Subjective Subjective Date of Service: 09/02/23 Interval History: feeling lousy, sob Physical Exam Vital Signs: Vital Signs: Last Vital Signs Temp 96.9 F 09/02/23 07:38 Pulse 91 09/02/23 07:38 Resp 18 09/02/23 07:38 BP 135/76 09/02/23 07:38 Pulse Ox 94 09/02/23 07:38 O2 Del Method Room Air 09/02/23 07:38 BMI result Body Mass Index 20.8 resting tremor improved flat affect lungs clear, no accessory msucles or resp distress Objective Data Active Medications Acetaminophen (Acetaminophen 325 Mg Tablet) 650 mg PO Q6H PRN PRN Reason: Pain, Mild (Pain Scale 1-3) Last Admin: 09/02/23 02:03 Dose: 650 mg Documented By: MARQUIS Acetaminophen (Acetaminophen Supp 650 Mg Supp.Rect) 650 mg NM Q6H PRN PRN Reason: Pain, Mild (Pain Scale 1-3) Amlodipine Besylate (Amlodipine Besylate 10 Mg Tablet) 10 mg PO DAILY [facility]; Protocol Last Admin: 09/02/23 08:13 Dose: 10 mg Documented By: IRON Ascorbic Acid (Ascorbic Acid 500 Mg Tablet) 2,000 mg PO BEDTIME [facility] Last Admin: 09/01/23 20:55 Dose: 2,000 mg Documented By: MARQUIS Cyproheptadine HCl (Cyproheptadine Hcl 4 Mg Tablet) 2 mg PO TID [facility] Last Admin: 09/02/23 08:12 Dose: 2 mg Documented By: IRON Enoxaparin Sodium (Enoxaparin Sodium 40 Mg/0.4 Ml Syringe) 40 mg SUBCUT Q24H [facility] Last Admin: 09/01/23 20:55 Dose: 40 mg Documented By: MARQUIS Fluticasone Propionate (Fluticasone Propionate Nasal 16 Gm [place]) 1 spray NOSTRIL-B BID [facility] Last Admin: 09/02/23 08:17 Dose: 1 spray Documented By: IRON Sodium Chloride (Ns) 1,000 mls @ 75 mls/hr IVCONT .[id number] [facility] Last Admin: 09/02/23 06:12 Dose: 75 mls/hr Documented By: MARQUIS Melatonin (Melatonin 3 Mg Tablet) 6 mg PO BEDTIME PRN PRN Reason: Insomnia Last Admin: 09/02/23 02:03 Dose: 6 mg Documented By: MARQUIS Multivitamins/Vitamin C (Multivitamin Tablet) 1 tab PO DAILY [facility] Last Admin: 09/02/23 08:12 Dose: 1 tab Documented By: IRON Ondansetron HCl (Ondansetron Hcl 4 Mg/2 Ml Vial) 4 mg IVPUSH Q8H PRN PRN Reason: Nausea and Vomiting Primidone (Primidone 50 Mg Tablet) 25 mg PO BID [facility] Last Admin: 09/02/23 08:13 Dose: 25 mg Documented By: IRON Propranolol HCl (Propranolol Hcl 20 Mg Tablet) 20 mg PO BID [facility]; Protocol Last Admin: 09/02/23 08:13 Dose: 20 mg Documented By: IRON Sodium Chloride (0.9 % Sodium Chloride Flush 3 Ml Syringe) 3 ml IVFLUSH QSHIFT [facility] Last Admin: 09/02/23 07:17 Dose: Not Given Documented By: IRON Non-Admin Reason: IV Running Labs 08/31/23 05:50 08/31/23 05:50 Labs: Laboratory Results - last 24 hr 09/01/23 13:37 Ammonia 46 Assessment and Plan (1) Ataxia: Status: Acute Plan 72F PMH htn, adhd, anxiety, depression, presented with agitation, tremors, ataxia agitation and tremors, concern for seritonin syndrome periactin and hold other meds psych and neuro following started primidone with improvement in essential tremor appears to be close to baseline mentally and in regards to tremor, still much less ambulatory, plan for sTR at SNF dysphagia service desk director appreciated - NDD2 with thins SOB saturation 94% on room air, check CXR urinary retention failed voiding trial 08/31/23 savage replaced, repeat trial when more ambulatory htn propanolol, amlodipine dvt prophlyaxis - lovenox full cdoe reason for continued hospitalization: sob Time Spent With Patient Time: Total time managing care of this patient today ____ minutes. Quality Stroke Does the patient have a stroke diagnosis?: No VTE Prior VTE?: No VTE Risk Level:: Medical - moderate - high VTE Device Contraindication: Treatment Not Indicated VTE Drug Contraindication: N/A - Med Ordered
[2023-09-02 11:41] VITALS: BP 134/67; PULSE 87; RESP 16; TEMP 36.9; O2SAT 94
--- NOTE | 2023-09-02 12:47 | MHC.SL.SWA ---
Risk of Aspiration Due to: Neurological Condition Poor PO Intake Weak Cough Weak Voice Dysphasia Diet Status: Recommend DOWNGRADE to PUREE SOLIDS (NDD1) d/t patient preference. Patient OK to have more advanced ground solids if desired. Continue w/ THIN liquids and pills CRUSHED in PUREE. Liquid Consistency and Strategies for Safe Swallow: Liquid Intake Recommendation: Thin Liquid Intake Strategies: Small Sips Solid Food Consistency: Dietary Recommendations: NDD1 Additional Modifications to Solid Foods: Foods to be moistened in sauce/gravy Oral Medication Intake: Crushed with Puree Please contact the pharmacy regarding appropriate crushable or liquid drug formulations that are available whenever modified delivery is recommended. Compensatory Strategies and Precautions to be Taken for Safe Swallow: Sitting Upright (90 deg) Double Swallow Small Bites and Sips Alternate Liquids/Solids Rate of Ingestion Change Oral Check Supervision While Eating and Drinking for Safe Swallow: Intermittent Supervision Swallowing Recommended Treatments: Compens. Strategy Educat. Recommendation for Speech: Further Testing Needed Inpatient Speech Therapy Comment: Patient presents w/ lingual tremor and reduced speed/ control of tongue. Patient seemingly describing congestion & thick phlegm production exacerbated by sensation of PO intake. Reported symptoms may be characteristic of post-nasal drip. Pt's reports hx of benign nodules. Recommend ENT referral; patient reports upcoming ENT appointment on September 29. Nutrition Professor Clinican/Clinical Fellow: No Supervisory Statement: I have reviewed and agree with the student/clinical fellow's documentation: N/A Speech Language Pathologist: Keiko Powell M.A., CCC-BUSINESS SYSTEMS ADVISOR
--- NOTE | 2023-09-02 15:21 | MHC.CM.PN ---
per rounds pt not ready for dc but will need rehab when stable
[2023-09-02 15:30] VITALS: BP 118/73; PULSE 93; RESP 16; TEMP 36.1; O2SAT 94
[2023-09-02 20:00] VITALS: BP 152/74; PULSE 101; RESP 18; TEMP 36.4; O2SAT 95
[2023-09-02] MEDS: Enoxaparin Sodium 40 MG/0.4 ML SYRINGE SUBCUT (20:23)
[2023-09-02] MEDS: Ascorbic Acid 500 MG TABLET 2000 MG PO (20:24)
[2023-09-02] MEDS: HaloperidoL 0.5 MG TABLET 0.25 MG PO (22:52)
[2023-09-02 23:28] VITALS: BP 146/70; PULSE 80; RESP 17; TEMP 36.6; O2SAT 95
[2023-09-03] MEDS: 0.9 % Sodium Chloride 1,000 ML 75 ML IVCONT ×2 (02:07→17:29)
[2023-09-03 03:04] VITALS: BP 135/70; PULSE 84; RESP 17; TEMP 36.7; O2SAT 95
[2023-09-03 05:53] LABS: Hematocrit 35.8 % (37.0-47.0); Hemoglobin 11.8 g/dl (12.0-16.0); Mean Corpuscular Hemoglobin 29.3 pg (27.0-33.0); Mean Corpuscular Volume 88.8 fL (80.0-98.0); Mean Platelet Volume 10.3 fL (9.4-12.3); Platelet Count 261 X10*3/uL (160-400); Red Blood Count 4.03 X10*6/uL (4.20-5.50); Red Cell Distribution Width 13.2 % (11.0-16.0); White Blood Count 8.7 X10*3/uL (4.8-10.8)
[2023-09-03 06:09] LABS: Anion Gap 10 (12-20); Blood Urea Nitrogen 11 mg/dL (9-16); Calcium 9.2 mg/dL (8.4-10.2); Carbon Dioxide 23 mmol/L (22-29); Chloride 107 mmol/L (96-108); Estimated Glomerular Filt Rate > 60; Glucose Fasting 99 mg/dL (60-99); Potassium 3.1 mmol/L (3.3-5.1); Sodium 137 mmol/L (135-145)
[2023-09-03 07:41] VITALS: BP 189/86; PULSE 93; RESP 21; TEMP 36.7; O2SAT 98
[2023-09-03] MEDS: HaloperidoL 0.5 MG TABLET 0.25 MG PO (07:49)
[2023-09-03] MEDS: Cyproheptadine HCl 4 MG TABLET 2 MG PO ×2 (07:49→14:27)
[2023-09-03] MEDS: amLODIPine Besylate 10 MG TABLET PO (07:49)
[2023-09-03] MEDS: Multivitamin TABLET 1 TAB PO (07:49)
[2023-09-03] MEDS: Primidone 50 MG TABLET 25 MG PO (07:50)
[2023-09-03] MEDS: Propranolol HCL 20 MG TABLET PO ×2 (07:50→14:28)
--- NOTE | 2023-09-03 12:59 | MHC.SPEECHCO ---
Pt NPO for Barium Swallow today. MBS ordered, pending scheduling with Radiology.
[2023-09-03] MEDS: Potassium Chloride ER 20 MEQ TAB.ER.PRT 40 MEQ PO (14:27)
[2023-09-03 14:35] VITALS: BP 179/95; PULSE 76; RESP 18; TEMP 36.4; O2SAT 93
--- NOTE | 2023-09-03 16:21 | P.PNIM_ITS ---
Subjective Subjective Date of Service: 09/03/23 Interval History: seen and examined this morning follow up for suspected serotonin syndrome minimal answers to questions, defers physical exam states tremor is improving Review of Systems Review of Systems: Yes all other systems are reviewed and are negative Cardiovascular Cardiovascular: Denies chest pain Gastrointestinal Gastrointestinal: Denies abdominal pain Physical Exam 2 Vital Signs: Vital Signs: Last Vital Signs Temp 97.6 F 09/03/23 14:35 Pulse 76 09/03/23 14:35 Resp 18 09/03/23 14:35 BP 179/95 H 09/03/23 14:35 Pulse Ox 93 09/03/23 14:35 O2 Del Method Room Air 09/03/23 14:35 BMI result Body Mass Index 20.8 Const: Other: resting in bed appears comfortable breathing easy and without distress mild b/l upper extremity present moving all extremities remainder of exam declined by patient Objective Data Active Medications Acetaminophen (Acetaminophen 325 Mg Tablet) 650 mg PO Q6H PRN PRN Reason: Pain, Mild (Pain Scale 1-3) Last Admin: 09/02/23 02:03 Dose: 650 mg Documented By: MARQUIS Acetaminophen (Acetaminophen Supp 650 Mg Supp.Rect) 650 mg [place] Q6H PRN PRN Reason: Pain, Mild (Pain Scale 1-3) Amlodipine Besylate (Amlodipine Besylate 10 Mg Tablet) 10 mg PO DAILY [facility]; Protocol Last Admin: 09/03/23 07:49 Dose: 10 mg Documented By: DAGMAR Ascorbic Acid (Ascorbic Acid 500 Mg Tablet) 2,000 mg PO BEDTIME [facility] Last Admin: 09/02/23 20:24 Dose: 2,000 mg Documented By: PENELOPE Cyproheptadine HCl (Cyproheptadine Hcl 4 Mg Tablet) 2 mg PO TID [facility] Last Admin: 09/03/23 14:27 Dose: 2 mg Documented By: DAGMAR Enoxaparin Sodium (Enoxaparin Sodium 40 Mg/0.4 Ml Syringe) 40 mg SUBCUT Q24H [facility] Last Admin: 09/02/23 20:23 Dose: 40 mg Documented By: PENELOPE Fluticasone Propionate (Fluticasone Propionate Nasal 16 Gm [place]) 1 spray NOSTRIL-B BID [facility] Last Admin: 09/03/23 08:35 Dose: Not Given Documented By: DAGMAR Non-Admin Reason: Patient Refused Haloperidol (Haloperidol 0.5 Mg Tablet) 0.25 mg PO BID [facility] Last Admin: 09/03/23 07:49 Dose: 0.25 mg Documented By: DAGMAR Sodium Chloride (Ns) 1,000 mls @ 75 mls/hr IVCONT .[id number] [facility] Lorazepam (Lorazepam 1 Mg Tablet) 1 mg PO BEDTIME [facility] Melatonin (Melatonin 3 Mg Tablet) 6 mg PO BEDTIME PRN PRN Reason: Insomnia Last Admin: 09/02/23 02:03 Dose: 6 mg Documented By: MARQUIS Multivitamins/Vitamin C (Multivitamin Tablet) 1 tab PO DAILY [facility] Last Admin: 09/03/23 07:49 Dose: 1 tab Documented By: DAGMAR Ondansetron HCl (Ondansetron Hcl 4 Mg/2 Ml Vial) 4 mg IVPUSH Q8H PRN PRN Reason: Nausea and Vomiting Primidone (Primidone 50 Mg Tablet) 25 mg PO BID [facility] Last Admin: 09/03/23 07:50 Dose: 25 mg Documented By: DAGMAR Propranolol HCl (Propranolol Hcl 20 Mg Tablet) 20 mg PO TID [facility]; Protocol Last Admin: 09/03/23 14:28 Dose: 20 mg Documented By: DAGMAR Sodium Chloride (0.9 % Sodium Chloride Flush 3 Ml Syringe) 3 ml IVFLUSH QSHIFT [facility] Last Admin: 09/03/23 07:48 Dose: Not Given Documented By: DAGMAR Non-Admin Reason: IV Running Labs 09/03/23 05:10 09/03/23 05:10 Labs: Laboratory Results - last 24 hr 09/03/23 05:10 MCV 88.8 MCH 29.3 MCHC 33.0 RDW 13.2 Plt Count 261 MPV 10.3 Absolute Nucleated RBC 0.000 Nucleated RBC % (auto) 0.0 Anion Gap 10 L Estim Creat Clear Calc 63.0 Estimated GFR > 60 Fasting Glucose 99 Calcium 9.2 Assessment and Plan (1) Serotonin syndrome: Status: Acute Plan 72F PMH htn, adhd, anxiety, depression, presented with agitation, tremors, ataxia agitation and tremors, concern for seritonin syndrome continue periactin and hold other meds psych following seen by neuro, agree with med adjustment, no further recs started primidone with improvement in essential tremor plan for inpatient psych when medically cleared dysphagia enrichment assistant appreciated - due to patient preference changed to NDD1 diet s/p barium swallow today MBSS planned for tomorrow hypokalemia k 3.1 replace and follow levels SOB saturation 94% on room air, CXR negative urinary retention failed voiding trial 08/31/23 savage replaced, repeat trial when more ambulatory htn propanolol, amlodipine dvt prophlyaxis - lovenox full code attending - dr. dkues reason for continued hospitalization: dysphagia, electrolyte replacement/monitoring Time Spent With Patient Time: Total time managing care of this patient today ____ minutes. Quality Stroke Does the patient have a stroke diagnosis?: No VTE Prior VTE?: No VTE Risk Level:: Medical - moderate - high VTE Device Contraindication: Treatment Not Indicated VTE Drug Contraindication: N/A - Med Ordered
[2023-09-03] MEDS: 0.9 % Sodium Chloride Flush 3 ML SYRINGE IVFLUSH ×2 (17:32→21:04)
[2023-09-03 19:56] VITALS: BP 160/75; PULSE 70; RESP 17; TEMP 36.3; O2SAT 95
--- NOTE | 2023-09-03 22:46 | P.CNPS_ITS ---
History of Present Illness Date of Service: 09/03/23 Chief Complaint: agitation Reason for Consult: follow up Depression, ond delirium, status post question serotonin syndrome Requesting physician: Nam Yanes Sources of Information: patient interviewed and chart reviewed HPI Narrative: Patient seen chart reviewed case reviewed with hospitalist staff. Patient alert depressed constricted nose place year date very preoccupied with [place] catheter denies any self-harming thoughts has paranoid preoccupation to some degree regarding nursing staff continue low-dose Haldol Past Psychiatric History: -Pt sees Dr. Shearer in OP setting recent hospitalization at the [facility] Has had often on relapses over the past year and half -Remote hx of IPLOC 12 yrs ago, recent admissions at [facility] since 2020 with at least 4 admissions in the last 2 years Medical Evaluation Reviewed: Yes Personal & Social History: Patient lives with the has 1 son with bipolar disorder [facility] Medical History Depression Hypothyroidism ZAC (generalized anxiety disorder) Hypertension ADHD (attention deficit hyperactivity disorder) Surgical History H/O thumb surgery H/O cone biopsy of cervix Family History: Bipolar disorder Social History: The patient is 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 she does occasionally smoke marijuana Substance History: Occasional marijuana use Trauma History: NA Diagnostics Vital Signs (24Hr): Vital Signs - 24 hr 09/02/23 23:28 09/03/23 03:04 09/03/23 07:41 Temperature 98 F 98.1 F 98.1 F Pulse Rate 80 84 93 Respiratory Rate 17 17 21 H Blood Pressure 146/70 H 135/70 189/86 H Pulse Oximetry 95 95 98 Oxygen Delivery Method Room Air Room Air Room Air 09/03/23 14:35 09/03/23 19:56 Temperature 97.6 F 97.3 F Pulse Rate 76 70 Respiratory Rate 18 17 Blood Pressure 179/95 H 160/75 H Pulse Oximetry 93 95 Oxygen Delivery Method Room Air Room Air BMI result Body Mass Index 20.8 Labs 09/03/23 05:10 09/03/23 05:10 Labs: Laboratory Results - last 48 hr 09/03/23 05:10 WBC 8.7 RBC 4.03 L Hgb 11.8 L Hct 35.8 L MCV 88.8 MCH 29.3 MCHC 33.0 RDW 13.2 Plt Count 261 MPV 10.3 Absolute Nucleated RBC 0.000 Nucleated RBC % (auto) 0.0 Sodium 137 Potassium 3.1 L Chloride 107 Carbon Dioxide 23 Anion Gap 10 L BUN 11 Creatinine 0.60 Estim Creat Clear Calc 63.0 Estimated GFR > 60 Fasting Glucose 99 Calcium 9.2 Imaging Radiology Impressions: ITS Impressions Brain MRI 09/01/23 12:35 IMPRESSION: 1. No acute infarct or other acute intracranial abnormality 2. Moderate chronic microangiopathy Chest X-Ray 09/02/23 10:20 IMPRESSION: Unremarkable examination. Mental Status Exam Mental Status Exam Narrative: Sad looking anxipous tremor noted Patient Appearance: Fatigued and Disheveled Patient Orientation: Person, Place and Situation Level of Consciousness: Lethargic Patient Behavior: Guarded, Passive, Anxious, Fearful and Distractible Mood Description: Suspicious, Depressed, Blunted and Apprehensive Affect Description: Constricted, Anxious and Apprehensive Patient Cognition Impaired: No Ability to Follow Directions: Fair (Difficulty with concentration) Speech Pattern: Slurred and Rambling Memory Description: Recent Impaired and Working Impaired Hallucinations: None Delusions: Not Present Thought Process: Slowed Thinking Thought Content: positive for Preoccupation, positive for Slowed Thinking, negative for Suicidal Ideation or negative for Homicidal Ideation Depressive Symptoms: Increased Anxiety, Increased Irritability, Hopelessness, Increased Fatigue, Loss of Energy and Difficulty Concentrating Judgement: Fair Judgement and Insight: Tremulous distracted variable attention Medications Medications Current Medications Acetaminophen (Acetaminophen 325 Mg Tablet) 650 mg PO Q6H PRN PRN Reason: Pain, Mild (Pain Scale 1-3) Last Admin: 09/02/23 02:03 Dose: 650 mg Acetaminophen (Acetaminophen Supp 650 Mg Supp.Rect) 650 mg [place] Q6H PRN PRN Reason: Pain, Mild (Pain Scale 1-3) Amlodipine Besylate (Amlodipine Besylate 10 Mg Tablet) 10 mg PO DAILY [facility]; Protocol Last Admin: 09/03/23 07:49 Dose: 10 mg Ascorbic Acid (Ascorbic Acid 500 Mg Tablet) 2,000 mg PO BEDTIME [facility] Last Admin: 09/03/23 21:01 Dose: Not Given Cyproheptadine HCl (Cyproheptadine Hcl 4 Mg Tablet) 2 mg PO TID [facility] Last Admin: 09/03/23 21:03 Dose: Not Given Enoxaparin Sodium (Enoxaparin Sodium 40 Mg/0.4 Ml Syringe) 40 mg SUBCUT Q24H [facility] Last Admin: 09/03/23 21:02 Dose: Not Given Fluticasone Propionate (Fluticasone Propionate Nasal 16 Gm [place]) 1 spray NOSTRIL-B BID [facility] Last Admin: 09/03/23 21:02 Dose: Not Given Haloperidol (Haloperidol 0.5 Mg Tablet) 0.25 mg PO BID [facility] Last Admin: 09/03/23 21:03 Dose: Not Given Sodium Chloride (Ns) 1,000 mls @ 75 mls/hr IVCONT .[id number] [facility] Last Admin: 09/03/23 17:29 Dose: 75 mls/hr Lorazepam (Lorazepam 1 Mg Tablet) 1 mg PO BEDTIME [facility] Last Admin: 09/03/23 21:02 Dose: Not Given Melatonin (Melatonin 3 Mg Tablet) 6 mg PO BEDTIME PRN PRN Reason: Insomnia Last Admin: 09/02/23 02:03 Dose: 6 mg Multivitamins/Vitamin C (Multivitamin Tablet) 1 tab PO DAILY [facility] Last Admin: 09/03/23 07:49 Dose: 1 tab Ondansetron HCl (Ondansetron Hcl 4 Mg/2 Ml Vial) 4 mg IVPUSH Q8H PRN PRN Reason: Nausea and Vomiting Primidone (Primidone 50 Mg Tablet) 25 mg PO BID [facility] Last Admin: 09/03/23 21:02 Dose: Not Given Propranolol HCl (Propranolol Hcl 20 Mg Tablet) 20 mg PO TID [facility]; Protocol Last Admin: 09/03/23 21:02 Dose: Not Given Sodium Chloride (0.9 % Sodium Chloride Flush 3 Ml Syringe) 3 ml IVFLUSH QSHIFT [facility] Last Admin: 09/03/23 21:04 Dose: 3 ml Allergies Allergies Allergy/AdvReac Type Severity Reaction Status Date / Time No Known Allergies Allergy Verified 08/27/23 10:27 Assessment & Plan Assessment & Plan (1) Serotonin syndrome: Status: Acute Code(s): G25.79 - Other drug induced movement disorders (2) Depression, major, severe recurrence: Status: Acute Code(s): F33.2 - Major depressive disorder, recurrent severe without psychotic features (3) ZAC (generalized anxiety disorder): Status: Acute Code(s): F41.1 - Generalized anxiety disorder Plan Case reviewed with hospitalist staff some elevated blood pressure patient flat dysphoric with denies self-harming thoughts some suspiciousness and guardedness low-dose Haldol which has minimal serotonergic properties continue Periactin trying to transfer to [facility] psych as appropriate Total time managing care of this patient today ____ minutes. Patient educated on: diagnosis, medication risk/benefits and medical condition Informed Consent: further education needed
[2023-09-03 23:42] VITALS: BP 150/71; PULSE 96; RESP 16; TEMP 36.6; O2SAT 94
--- NOTE | 2023-09-04 | ECG_ITS ---
Test Reason : check qtc Blood Pressure : / mmHG Vent. Rate : 091 BPM Atrial Rate : 091 BPM P-R Int : 120 ms QRS Dur : 084 ms QT Int : 366 ms P-R-T Axes : 040 047 204 degrees QTc Int : 450 ms Normal sinus rhythm RSR' or QR pattern in V1 suggests right ventricular conduction delay T-wave inversion in Inferior leads Lateral leads Abnormal ECG When compared with ECG of 27-AUG-2023 19:22, T wave inversion now evident in Inferior leads T wave inversion now evident in Anterolateral leads Referred By: Nae Pinon Electronically Signed By:LÓPEZ NARVAEZ MD
[2023-09-04 03:27] VITALS: BP 167/76; PULSE 97; RESP 17; TEMP 36.4; O2SAT 94
[2023-09-04 06:12] LABS: Anion Gap 16 (12-20); Blood Urea Nitrogen 9 mg/dL (9-16); Calcium 10.1 mg/dL (8.4-10.2); Carbon Dioxide 24 mmol/L (22-29); Chloride 102 mmol/L (96-108); Creatinine Clr Calc Pharmacy 65.1; Estimated Glomerular Filt Rate > 60; Glucose Random 95 mg/dL (60-115); Potassium 3.8 mmol/L (3.3-5.1); Sodium 138 mmol/L (135-145)
[2023-09-04 08:00] VITALS: BP 159/73; PULSE 107; RESP 18; TEMP 36.9; O2SAT 95
[2023-09-04 10:50] VITALS: BP 159/73; PULSE 107; O2SAT 95
[2023-09-04 12:00] VITALS: BP 142/81; PULSE 100; RESP 18; TEMP 36.9; O2SAT 95
[2023-09-04] MEDS: HaloperidoL 0.5 MG TABLET 0.25 MG PO ×2 (12:11→20:12)
[2023-09-04] MEDS: Omeprazole 20 MG CAPSULE.DR PO (12:11)
[2023-09-04] MEDS: Primidone 50 MG TABLET 25 MG PO ×2 (12:12→20:10)
[2023-09-04] MEDS: amLODIPine Besylate 10 MG TABLET PO (12:12)
[2023-09-04] MEDS: Multivitamin TABLET 1 TAB PO (12:12)
[2023-09-04] MEDS: Propranolol HCL 20 MG TABLET PO ×3 (12:12→20:09)
[2023-09-04] MEDS: Cyproheptadine HCl 4 MG TABLET 2 MG PO ×3 (12:12→20:11)
--- NOTE | 2023-09-04 12:43 | HO.PM.IMPN ---
Subjective Subjective Date of Service: 09/04/23 Interval History: seen and examined this morning follow up for suspected serotonin syndrome, dysphagia difficult to obtain history; patient closes her eyes shut and pretends to be asleep seen again early afternoon with present, patient more engaged Review of Systems Review of Systems: Yes all other systems are reviewed and are negative Constitutional Constitutional: Denies chills and Denies fever(s) Cardiovascular Cardiovascular: Denies chest pain, Denies palpitations and Denies dyspnea Respiratory Respiratory: Denies dyspnea Gastrointestinal Gastrointestinal: Denies abdominal pain Endocrine Endocrine: Denies palpitations Physical Exam Vital Signs: Vital Signs: Last Vital Signs Temp 98.4 F 09/04/23 12:00 Pulse 100 09/04/23 12:00 Resp 18 09/04/23 12:00 BP 142/81 H 09/04/23 12:00 Pulse Ox 95 09/04/23 12:00 O2 Del Method Room Air 09/04/23 12:00 BMI result Body Mass Index 20.8 Const: General: no acute distress, alert and awake Nutritional Appearance: thin Resp: Effort & Inspection: normal respiratory effort, able to speak in complete sentences, no respiratory distress and no use of accessory muscles Cardio: Rate: tachycardic GI: Inspection: No distended Palpation (GI): Soft to palpation Neuro: Other: mild tremor b/l upper extremities; grossly nonfocal Extrem: General: Yes no pedal edema Psych: Other: flat affect Objective Data Active Medications Acetaminophen (Acetaminophen 325 Mg Tablet) 650 mg PO Q6H PRN PRN Reason: Pain, Mild (Pain Scale 1-3) Last Admin: 09/02/23 02:03 Dose: 650 mg Documented By: MARQUIS Acetaminophen (Acetaminophen Supp 650 Mg Supp.Rect) 650 mg [place] Q6H PRN PRN Reason: Pain, Mild (Pain Scale 1-3) Amlodipine Besylate (Amlodipine Besylate 10 Mg Tablet) 10 mg PO DAILY [facility]; Protocol Last Admin: 09/04/23 12:12 Dose: 10 mg Documented By: DAGMAR Ascorbic Acid (Ascorbic Acid 500 Mg Tablet) 2,000 mg PO BEDTIME [facility] Last Admin: 09/03/23 21:01 Dose: Not Given Documented By: PENELOPE Non-Admin Reason: Patient Refused Cyproheptadine HCl (Cyproheptadine Hcl 4 Mg Tablet) 2 mg PO TID [facility] Last Admin: 09/04/23 12:12 Dose: 2 mg Documented By: DAGMAR Enoxaparin Sodium (Enoxaparin Sodium 40 Mg/0.4 Ml Syringe) 40 mg SUBCUT Q24H [facility] Last Admin: 09/03/23 21:02 Dose: Not Given Documented By: PENELOPE Non-Admin Reason: Patient Refused Fluticasone Propionate (Fluticasone Propionate Nasal 16 Gm [place]) 1 spray NOSTRIL-B BID [facility] Last Admin: 09/04/23 12:20 Dose: Not Given Documented By: DAGMAR Non-Admin Reason: Patient Refused Haloperidol (Haloperidol 0.5 Mg Tablet) 0.25 mg PO BID [facility] Last Admin: 09/04/23 12:11 Dose: 0.25 mg Documented By: DAGMAR Lorazepam (Lorazepam 1 Mg Tablet) 1 mg PO BEDTIME [facility] Last Admin: 09/03/23 21:02 Dose: Not Given Documented By: PENELOPE Non-Admin Reason: Patient Refused Melatonin (Melatonin 3 Mg Tablet) 6 mg PO BEDTIME PRN PRN Reason: Insomnia Last Admin: 09/02/23 02:03 Dose: 6 mg Documented By: MARQUIS Multivitamins/Vitamin C (Multivitamin Tablet) 1 tab PO DAILY [facility] Last Admin: 09/04/23 12:12 Dose: 1 tab Documented By: DAGMAR Omeprazole (Omeprazole 20 Mg Capsule.Dr) 20 mg PO DAILY@0630 [facility] Last Admin: 09/04/23 12:11 Dose: 20 mg Documented By: DAGMAR Ondansetron HCl (Ondansetron Hcl 4 Mg/2 Ml Vial) 4 mg IVPUSH Q8H PRN PRN Reason: Nausea and Vomiting Primidone (Primidone 50 Mg Tablet) 25 mg PO BID [facility] Last Admin: 09/04/23 12:12 Dose: 25 mg Documented By: DAGMAR Propranolol HCl (Propranolol Hcl 20 Mg Tablet) 20 mg PO TID [facility]; Protocol Last Admin: 09/04/23 12:12 Dose: 20 mg Documented By: DAGMAR Sodium Chloride (0.9 % Sodium Chloride Flush 3 Ml Syringe) 3 ml IVFLUSH QSHIFT [facility] Last Admin: 09/04/23 12:05 Dose: Not Given Documented By: DAGMAR Non-Admin Reason: Patient Refused Labs 09/03/23 05:10 09/04/23 05:19 Labs: Laboratory Results - last 24 hr 09/04/23 05:19 Anion Gap 16 Estim Creat Clear Calc 65.1 Estimated GFR > 60 Random Glucose 95 Calcium 10.1 D Assessment and Plan (1) Dysphagia: Status: Acute Plan 72F PMH htn, adhd, anxiety, depression, presented with agitation, tremors, ataxia agitation and tremors, concern for seritonin syndrome continue periactin and hold other meds psych following seen by neuro, agree with med adjustment, no further recs started primidone with improvement in essential tremor plan for inpatient psych when medically cleared dysphagia scrubber 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 Goss reason for continued hospitalization: dysphagia, electrolyte replacement/monitoring Time Spent With Patient Time: Total time managing care of this patient today ____ minutes. Quality Stroke Does the patient have a stroke diagnosis?: No VTE Prior VTE?: No VTE Risk Level:: Medical - moderate - high VTE Device Contraindication: Treatment Not Indicated VTE Drug Contraindication: N/A - Med Ordered
--- NOTE | 2023-09-04 15:24 | MHC.SL.IMP ---
Date of Plan of Treatment: 09/04/23 Onset of Symptoms/Illness: 09/03/23 Date Treatment Started: 09/04/23 Admitting Diagnosis: Oropharyngeal dysphagia Primary Speech & Language Diagnosis: R13.12 Oropharyngeal Phase Dysphagia Reason for Today's Visit: 14296 Modified Barium Swallow Study Comments: Patient's reports patient presenting w/ voice weaker than typical baseline. Pre-evaluation Dietary Consistencies: Pureed (NDD1) Pre-evaluation Liquid Consistency: Thin [facility] Fall Risk Assessment Score: Oral Motor Exam Facial Symmetry: Normal for Patient Symmetrical Facial Movement: Controlled Oral-Facial Facial Miscellaneous Observations: Mouth Occlusion: Normal Oral-Facial Teeth Characteristics: Intact/Normal Broken Spaces Oral-Facial Teeth Miscellaneous Observation: Oral-Facial Lip Pucker Description: Oral-Facial Smile (Lips) Description: Normal Oral-Facial Puff Cheeks Description: Normal Oral-Facial Lip Miscellaneous Comment: Tongue Size: Normal Tongue Frenum Length: Tongue Excursion Description: Incomplete w/o max prompting Tongue Range of Movement Description: Normal Tongue Speed of Movement Description: Reduced Tongue Strength of Movement (against opposing pressure): Normal Tongue Movement Characteristics: Tongue Movement Miscellaneous Observation: Oral Expression Ability: Mild Impairment Is patient able to manage secretions?: Yes Is patient able to produce volitional cough?: Yes Food and Liquid Trials: Oral Impairment: Lip Closure: 1=Interlabial escape; no progression to anterior tip Oral Impairment: Tongue Control During Bolus Hold: 0=Cohesive bolus between tongue to palatal seal Oral Impairment: Bolus Preparation/Mastication: 3=Minimal chewing/mashing with majority of bolus unchewed Oral Impairment: Bolus Transport/Lingual Motion: 0=Brisk tongue motion Oral Impairment: Oral Residue: 2=Residue collection on oral structures Oral Impairment:Initiation of Pharyngeal Swallow: 1=Bolus head in valleculae Pharyngeal Impairment: Soft Palate Elevation: 0=No bolus between soft palate (SP)/pharyngeal wall (PW) Pharyngeal Impairment: Laryngeal Elevation: 1=Partial thyroid cartilage/arytenoids to epiglottic petiole movement Pharyngeal Impairment: Anterior Hyoid Excursion: 1=Partial anterior movement Pharyngeal Impairment: Epiglottic Movement: 1=Partial inversion Pharyngeal Impairment: Laryngeal Vestibular Closure:: 1=Incomplete: narrow column air/contrast in laryngeal vestibule Pharyngeal Impairment: Pharyngeal Stripping Wave: 0=Present: complete Pharyngeal Impairment: Pharyngeal Contraction: Did not test Pharyngeal Impairment: Pharyngoesophageal Segment Openin=Complete distension and complete duration: no obstruction of flow Pharyngeal Impairment: Tongue Base (TB) Retraction: 1=Trace column of contrast/air between TB and posterior PW Pharyngeal Impairment: Pharyngeal Residue: 1=Trace residue within or on pharyngeal structures Pharyngeal Impairment: Esophageal Clearance Upright Position: Did not test Impressions and Recommendations Clinical Observations: MBSImP Results: Lip closure for intraoral bolus containment resulted in interlabial escape, without progression to the anterior lip. Tongue control during bolus hold maintained a cohesive bolus held between tongue to palate seal. Bolus preparation and mastication received the highest impairment score; solid not given due to patient safety concerns related to oral impairment. Bolus transport/lingual motion was with brisk tongue motion. Oral residue was a collection on oral structures. Initiation of the pharyngeal swallow occurred when the bolus head was in the valleculae. Soft palate elevation resulted in no bolus between the soft palate and the pharyngeal wall. Laryngeal elevation was decreased, with partial superior movement of the thyroid cartilage/partial approximation of the arytenoids to the epiglottic petiole. Anterior hyoid excursion demonstrated partial anterior movement. Epiglottic movement resulted in partial inversion. Laryngeal vestibular closure was incomplete, with a narrow column of air/contrast noted within the laryngeal vestibule at the height of the swallow. Pharyngeal stripping wave was present and complete. Pharyngeal contraction could not be determined due to logistical reasons not related to physiologic impairment. Pharyngoesophageal segment opening was completely distended for complete duration with no obstruction of bolus flow. Tongue base retraction allowed a trace column of contrast or air between the retracted tongue base and the posterior pharyngeal wall. Pharyngeal residue was a trace within or on pharyngeal structures. Esophageal clearance in the upright position could not be assessed due to logistical reasons not related to physiologic impairment. Oral Impairment Score: 6 Pharyngeal Impairment Score: 4 (absence of score, component 13) Esophageal Impairment Score: --- (absence of score, component 17) Laryngeal Penetration and Aspiration: Penetration was observed in today's study. Thin Contrast entered the airway, remained above the vocal folds, and was ejected from the airway. Summary: Pt was administered Thin, Puree and Regular Solids coated in barium. Flash penetration that was spontaneously ejected with large uncontrolled sips of Thin Liquids. Puree medium resulted in oral and pharyngeal residue on the base of the tongue and in the vallecular space. No significant contrast present on the posterior pharyngeal wall or pyriforms. She was cue to swallow again, but stated that she physiologically could not. She was then given thin liquids which greatly reduced the residue. She initially declined a Regular Solid (Turner Cracker) coated in Barium, but agreed when she accepted it was for the test. She had disorganized chewing patterns with a large piece ending up in the valecular space. Cues for a double swallow were once again unsuccessful, however the remainder of the bolus was removed with a thin liquid wash. Liquid Intake Recommendation: Thin Liquid Intake Strategies: Small Sips Dietary Recommendations: Pureed (NDD1) Medication Administration: Crushed with Puree Please contact the pharmacy regarding appropriate crushable or liquid drug formulations that are available whenever modified delivery is recommended. Compensatory Strategies Recommended: Sitting Upright (90 deg) Double Swallow Small Bites and Sips Alternate Liquids/Solids Supervision during eating and or drinking: Intermittent Supervision Recommended Treatments: Compens. Strategy Educat. Recommendation for Speech Therapy: Speech Therapy through Rehab Facility Text Comment: ADVISOR CONSULTANT reviewed results with Pt and present. ADVISOR CONSULTANT recommended diet upgrade, however they are not ready at this time. If amenable I would recommend up to a Chopped/Advanced Solid (NDD3) and Thin Liquid diet. In the meantime, cues to alternate bites with sips may provide symptom relief. Results conferred to NEMO, RN, and MD. Frequency/Duration: Date Range for Service Requested: Timeline to reassess: PRN Apiarist Clinician/Clinical Fellow: No Supervisory Statement: N/A Speech Language Pathologist: Abelardo Stevens M.A., [facility]-ADVISOR CONSULTANT
[2023-09-04 15:36] VITALS: BP 154/95; PULSE 92; RESP 18; TEMP 36.9; O2SAT 92
--- NOTE | 2023-09-04 15:58 | P.CNGI_ITS ---
History of Present Illness Data of Consult Service Date: 09/04/23 Requesting physician: Nae Pinon Primary Care Provider: Tami Francis MD [facility] Reason for consult: Abnormal barium esophagogram This is a 72y.o F with PMH of depression, anxiety, ADHD who is currently admitted to the hospital for possible serotonin syndrome which gastroenterology has been consulted for abnormal barium swallow. Pt initially admitted on 08/27 with confusion and increased tremors. Also noted to have difficulty tolerating solid foods during the course of admission for which speech therapy evaluated her. Pt was noted to have slow movement of her tongue and reported sensation of thick phlegm in the back of her tongue while swallowing. This prompted barium swallow and MBS. Barium swallow completed yest that showed possible mucosa irregularity of upper esophagus as well esophageal dysmotility. On bedside evaluation of the pt, she does report difficulty swallowing and attributes it mostly to discomfort and pain on swallowing dana with solid foods. Does not report any choking or sensation of food getting stuck. However, pt unable to report when this started and could not recall if she has been evaluated for this in the past. Also unable to verbalise why shes in the hospital. Review of Systems 2 Review of Systems: Limited ROS obtained due to mental status PMFSH Past Medical History Medical History Depression Hypothyroidism ZAC (generalized anxiety disorder) Hypertension ADHD (attention deficit hyperactivity disorder) Family History Family History Other No pertinent family history Surgical History Surgical History H/O thumb surgery H/O cone biopsy of cervix Social History Social History Household Members: Spouse Household Members Other:: And two cats. Housing: House Do you presently have visiting nurse or other home services: No Unable to assess alcohol history related to: Unknown Alcohol intake: never Patient Tobacco Use Status: Tobacco use Unknown Tobacco use type: Cigarette Smoked in Last 30 Days: No e-Cigarette/Vaping Use: Never Used Second Hand Smoke Exposure: No Use of substances other than those prescribed or required for medical reasons: No Substance Use Type: Marijuana Currently Displaying Signs/Symptoms of Drug Intoxication Withdrawal: No Advance Directives: No Advance Directives Information Provided: Yes Do you have thoughts of harming others: None Do you have a plan to hurt others: No Plan Recently lost weight without trying: Unsure Nutrition Risks: No Nutritional Risk Patient : No service: No Sexual orientation: Straight/Heterosexual Meds Allergies Allergy/AdvReac Type Severity Reaction Status Date / Time No Known Allergies Allergy Verified 08/27/23 10:27 Active Medications: Current Medications Acetaminophen (Acetaminophen 325 Mg Tablet) 650 mg PO Q6H PRN PRN Reason: Pain, Mild (Pain Scale 1-3) Last Admin: 09/04/23 20:09 Dose: 650 mg Acetaminophen (Acetaminophen Supp 650 Mg Supp.Rect) [address] Q6H PRN PRN Reason: Pain, Mild (Pain Scale 1-3) Amlodipine Besylate (Amlodipine Besylate 10 Mg Tablet) 10 mg PO DAILY [facility]; Protocol Last Admin: 09/04/23 12:12 Dose: 10 mg Ascorbic Acid (Ascorbic Acid 500 Mg Tablet) 2,000 mg PO BEDTIME [facility] Last Admin: 09/04/23 20:09 Dose: 2,000 mg Cyproheptadine HCl (Cyproheptadine Hcl 4 Mg Tablet) 2 mg PO TID [facility] Last Admin: 09/04/23 20:11 Dose: 2 mg Enoxaparin Sodium (Enoxaparin Sodium 40 Mg/0.4 Ml Syringe) 40 mg SUBCUT Q24H [facility] Last Admin: 09/04/23 20:08 Dose: 40 mg Fluticasone Propionate (Fluticasone Propionate Nasal 16 Gm [place]) 1 spray NOSTRIL-B BID [facility] Last Admin: 09/04/23 20:15 Dose: 1 spray Haloperidol (Haloperidol 0.5 Mg Tablet) 0.25 mg PO BID [facility] Last Admin: 09/04/23 20:12 Dose: 0.25 mg Lorazepam (Lorazepam 1 Mg Tablet) 1 mg PO BEDTIME [facility] Last Admin: 09/04/23 20:09 Dose: 1 mg Melatonin (Melatonin 3 Mg Tablet) 6 mg PO BEDTIME PRN PRN Reason: Insomnia Last Admin: 09/04/23 20:09 Dose: 6 mg Multivitamins/Vitamin C (Multivitamin Tablet) 1 tab PO DAILY [facility] Last Admin: 09/04/23 12:12 Dose: 1 tab Omeprazole (Omeprazole 20 Mg Capsule.Dr) 20 mg PO DAILY@0630 [facility] Last Admin: 09/04/23 12:11 Dose: 20 mg Primidone (Primidone 50 Mg Tablet) 25 mg PO BID [facility] Last Admin: 09/04/23 20:10 Dose: 25 mg Propranolol HCl (Propranolol Hcl 20 Mg Tablet) 20 mg PO TID [facility]; Protocol Last Admin: 09/04/23 20:09 Dose: 20 mg Sodium Chloride (0.9 % Sodium Chloride Flush 3 Ml Syringe) 3 ml IVFLUSH QSHIFT [facility] Last Admin: 09/04/23 20:13 Dose: 3 ml Home Medications Medication Instructions Recorded Confirmed Last Taken Type amlodipine 5 mg tablet 10 mg PO DAILY 10/23/22 08/27/23 10/23/22 History alprazolam 0.25 mg tablet 0.5 mg PO TID PRN anxiety 08/27/23 08/27/23 Unknown History esketamine 56 mg (28 mg x 2) nasal 84 mg intranasal TUTH 08/27/23 08/27/23 08/27/23 History spray ([place]) fluticasone propionate 50 1 spray intranasal BID 08/27/23 08/27/23 Unknown History mcg/actuation nasal spray,suspension propranolol 20 mg tablet 20 mg PO BID 08/27/23 08/27/23 Unknown History Physical Exam 2 Vital Signs: Vital Signs: Last Vital Signs Temp 98.1 F 09/04/23 19:33 Pulse 90 09/04/23 19:33 Resp 18 09/04/23 19:33 BP 157/81 H 09/04/23 19:33 Pulse Ox 95 09/04/23 19:33 O2 Del Method Room Air 09/04/23 19:33 BMI result Body Mass Index 20.8 Frail elderly female Tongue with marked edema, erythema and fissuring No cervical lymphadenopathy No abd distention or tenderness minimal ABENA Awake Ox1, no focal deficits Results Labs 09/03/23 05:10 09/04/23 05:19 Labs: BMP 09/04/23 05:19 Sodium 138 Potassium 3.8 D Chloride 102 Carbon Dioxide 24 BUN 9 Creatinine 0.58 Calcium 10.1 D Microbiology Microbiology Results: Microbiology 08/28/23 Unknown Urine Catheterized - Straight Catheter Urine Culture - Final Assessment and Plan (1) Dysphagia: Status: Acute (2) Odynophagia: Status: Acute Plan Likely due to candidiasis as noted on exam, although no plaques or pseudomembranes noted in the posterior oropharynx, strong suspicion for esophageal candidiasis as well. Risk factors include poor oral hygiene and inh steroid use. Recommendations: - Start fluconazole 400 PO today followed by 200mg PO daily for total 14 days. - EGD for luminal evaluation tentatively jeremie for Thursday - Consider cueing for gargling and rinsing mouth after using fluticasone spray - Diet as per INFORMATION SYSTEMS MANAGER recommendations Thank you for allowing me to participate in her care. Please do not hesitate to reach out for questions or concerns. Time Spent With Patient Time: Total time managing care of this patient today ____ minutes. Procedures Date of Service Date of Service: 09/04/23
[2023-09-04] MEDS: 0.9 % Sodium Chloride Flush 3 ML SYRINGE IVFLUSH ×2 (16:01→20:13)
[2023-09-04] MEDS: Fluconazole 100 MG TABLET 400 MG PO (17:17)
[2023-09-04 19:33] VITALS: BP 157/81; PULSE 90; RESP 18; TEMP 36.7; O2SAT 95
[2023-09-04 19:40] LABS: Troponin-I High Sensitivity < 2.7 ng/L (<3.5-17.0)
[2023-09-04] MEDS: Enoxaparin Sodium 40 MG/0.4 ML SYRINGE SUBCUT (20:08)
[2023-09-04] MEDS: LORazepam 1 MG TABLET PO (20:09)
[2023-09-04] MEDS: Melatonin 3 MG TABLET 6 MG PO (20:09)
[2023-09-04] MEDS: Acetaminophen 325 MG TABLET 650 MG PO (20:09)
[2023-09-04] MEDS: Ascorbic Acid 500 MG TABLET 2000 MG PO (20:09)
[2023-09-04] MEDS: Fluticasone Propionate Nasal 16 GM SPRAY 1 SPRAY NOSTRIL-B (20:15)
--- NOTE | 2023-09-04 21:42 | P.CNPS_ITS ---
History of Present Illness Date of Service: 09/04/2023 Chief Complaint: agitation HPI Narrative: Patient seen psychiatric follow-up case reviewed extensively with hospitalist service. Patient noted to have esophagitis after barium swallow question Ann. The patient seemed to be eating better remains flat constricted withdrawn depressed. Patient with noted esophagitis has GI consult. At times withdrawn paranoid suspicious noted to have a olivo affect somewhat better able to concentrate Past Psychiatric History: -Pt sees Dr. Shearer in OP setting recent hospitalization at the [place] [facility] Has had often on relapses over the past year and half -Remote hx of IPLOC 12 yrs ago, recent admissions at [facility] since 2020 with at least 4 admissions in the last 2 years Esophagitis noted [facility] Medical History Depression Hypothyroidism ZAC (generalized anxiety disorder) Hypertension ADHD (attention deficit hyperactivity disorder) Surgical History H/O thumb surgery H/O cone biopsy of cervix Family History: Bipolar disorder Social History: The patient is 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 she does occasionally smoke marijuana Trauma History: NA Diagnostics Vital Signs (24Hr): Vital Signs - 24 hr 09/03/23 23:42 09/04/23 03:27 09/04/23 08:00 Temperature 98 F 97.5 F 98.5 F Pulse Rate 96 97 107 H Respiratory Rate 16 17 18 Blood Pressure 150/71 H 167/76 H 159/73 H Pulse Oximetry 94 94 95 Oxygen Delivery Method Room Air Room Air Room Air 09/04/23 10:50 09/04/23 12:00 09/04/23 15:36 Temperature 98.4 F 98.4 F Pulse Rate 107 H 100 92 Respiratory Rate 18 18 Blood Pressure 159/73 H 142/81 H 154/95 H Pulse Oximetry 95 95 92 Oxygen Delivery Method Room Air Room Air 09/04/23 19:33 Temperature 98.1 F Pulse Rate 90 Respiratory Rate 18 Blood Pressure 157/81 H Pulse Oximetry 95 Oxygen Delivery Method Room Air BMI result Body Mass Index 20.8 Labs 09/03/23 05:10 09/04/23 05:19 Labs: Laboratory Results - last 48 hr 09/03/23 09/04/23 09/04/23 05:10 05:19 18:50 WBC 8.7 RBC 4.03 L Hgb 11.8 L Hct 35.8 L MCV 88.8 MCH 29.3 MCHC 33.0 RDW 13.2 Plt Count 261 MPV 10.3 Absolute Nucleated RBC 0.000 Nucleated RBC % (auto) 0.0 Sodium 137 138 Potassium 3.1 L 3.8 D Chloride 107 102 Carbon Dioxide 23 24 Anion Gap 10 L 16 BUN 11 9 Creatinine 0.60 0.58 Estim Creat Clear Calc 63.0 65.1 Estimated GFR > 60 > 60 Random Glucose 95 Fasting Glucose 99 Calcium 9.2 10.1 D Troponin I High Sens < 2.7 Imaging Radiology Impressions: ITS Impressions Brain MRI 09/01/23 12:35 IMPRESSION: 1. No acute infarct or other acute intracranial abnormality 2. Moderate chronic microangiopathy Chest X-Ray 09/02/23 10:20 IMPRESSION: Unremarkable examination. Barium Swallow X-Ray 09/03/23 13:56 IMPRESSION: Somewhat limited exam as discussed. 1) Small amount of subglottic aspiration of thick barium noted on first swallow. 2) Irregular mucosal pattern of the superior esophagus suggestive of erosive esophagitis. Given preference of the superior one third of the esophagus, Ann esophagitis (thrush) should be strongly considered. Direct visualization with endoscopy is recommended. Would also recommend direct visualization of the posterior oropharynx to assess for classic plaques of Ann. 3) Marked esophageal dysmotility. Small type I hiatus hernia. Cannot well assess for reflux. 4. Somewhat delayed opening of the LES, suggesting a mild component of achalasia. This procedures performed by French Wheeler PA-C, and supervised by Dr. Webster. The care team was made aware of the findings by French Wheeler PA-C. Mental Status Exam Mental Status Exam Narrative: Sad looking anxipous tremor noted Patient Appearance: Fatigued and Disheveled Patient Orientation: Person, Place and Situation Level of Consciousness: Lethargic Patient Behavior: Guarded, Passive, Anxious, Fearful and Distractible Mood Description: Suspicious, Depressed, Blunted and Apprehensive Affect Description: Constricted, Anxious and Apprehensive Patient Cognition Impaired: No Ability to Follow Directions: Fair (Difficulty with concentration) Speech Pattern: Slurred and Rambling Memory Description: Recent Impaired and Working Impaired Hallucinations: None Delusions: Not Present Thought Process: Slowed Thinking Thought Content: positive for Preoccupation, positive for Slowed Thinking, negative for Suicidal Ideation or negative for Homicidal Ideation Depressive Symptoms: Increased Anxiety, Increased Irritability, Hopelessness, Increased Fatigue, Loss of Energy and Difficulty Concentrating Judgement: Fair Judgement and Insight: Tremulous distracted variable attention Medications Medications Current Medications Acetaminophen (Acetaminophen 325 Mg Tablet) 650 mg PO Q6H PRN PRN Reason: Pain, Mild (Pain Scale 1-3) Last Admin: 09/04/23 20:09 Dose: 650 mg Acetaminophen (Acetaminophen Supp 650 Mg Supp.Rect) 650 mg [place] Q6H PRN PRN Reason: Pain, Mild (Pain Scale 1-3) Amlodipine Besylate (Amlodipine Besylate 10 Mg Tablet) 10 mg PO DAILY [facility]; Protocol Last Admin: 09/04/23 12:12 Dose: 10 mg Ascorbic Acid (Ascorbic Acid 500 Mg Tablet) 2,000 mg PO BEDTIME [facility] Last Admin: 09/04/23 20:09 Dose: 2,000 mg Cyproheptadine HCl (Cyproheptadine Hcl 4 Mg Tablet) 2 mg PO TID [facility] Last Admin: 09/04/23 20:11 Dose: 2 mg Enoxaparin Sodium (Enoxaparin Sodium 40 Mg/0.4 Ml Syringe) 40 mg SUBCUT Q24H [facility] Last Admin: 09/04/23 20:08 Dose: 40 mg Fluticasone Propionate (Fluticasone Propionate Nasal 16 Gm [place]) 1 spray NOSTRIL-B BID [facility] Last Admin: 09/04/23 20:15 Dose: 1 spray Haloperidol (Haloperidol 0.5 Mg Tablet) 0.25 mg PO BID [facility] Last Admin: 09/04/23 20:12 Dose: 0.25 mg Lorazepam (Lorazepam 1 Mg Tablet) 1 mg PO BEDTIME [facility] Last Admin: 09/04/23 20:09 Dose: 1 mg Melatonin (Melatonin 3 Mg Tablet) 6 mg PO BEDTIME PRN PRN Reason: Insomnia Last Admin: 09/04/23 20:09 Dose: 6 mg Multivitamins/Vitamin C (Multivitamin Tablet) 1 tab PO DAILY [facility] Last Admin: 09/04/23 12:12 Dose: 1 tab Omeprazole (Omeprazole 20 Mg Capsule.Dr) 20 mg PO DAILY@0630 [facility] Last Admin: 09/04/23 12:11 Dose: 20 mg Primidone (Primidone 50 Mg Tablet) 25 mg PO BID [facility] Last Admin: 09/04/23 20:10 Dose: 25 mg Propranolol HCl (Propranolol Hcl 20 Mg Tablet) 20 mg PO TID [facility]; Protocol Last Admin: 09/04/23 20:09 Dose: 20 mg Sodium Chloride (0.9 % Sodium Chloride Flush 3 Ml Syringe) 3 ml IVFLUSH QSHIFT [facility] Last Admin: 09/04/23 20:13 Dose: 3 ml Allergies Allergies Allergy/AdvReac Type Severity Reaction Status Date / Time No Known Allergies Allergy Verified 08/27/23 10:27 Assessment & Plan Assessment & Plan (1) Dysphagia: Status: Acute Code(s): R13.10 - Dysphagia, unspecified (2) Serotonin syndrome: Status: Acute Code(s): G25.79 - Other drug induced movement disorders (3) Depression, major, severe recurrence: Status: Acute Code(s): F33.2 - Major depressive disorder, recurrent severe without psychotic features (4) Paranoia: Status: Acute Code(s): F22 - Delusional disorders Plan Continue Haldo very low-dose lorazepam as needed encourage food and fluid transfer to Psychiatry min medically stable l Total time managing care of this patient today ____ minutes. Patient educated on: diagnosis and medical condition Informed Consent: further education needed
[2023-09-05] VITALS (7 sets, daily range): BP systolic 107–167; BP diastolic 56–84; PULSE 78–94; RESP 15–18; TEMP 36.1–36.7; O2SAT 92–94
--- NOTE | 2023-09-05 | ECG_ITS ---
Test Reason : dr khan Blood Pressure : / mmHG Vent. Rate : 080 BPM Atrial Rate : 080 BPM P-R Int : 122 ms QRS Dur : 084 ms QT Int : 408 ms P-R-T Axes : 022 044 037 degrees QTc Int : 470 ms Poor data quality, interpretation may be adversely affected Normal sinus rhythm Normal ECG When compared with ECG of 04-SEP-2023 16:41, Criteria for Anterolateral infarct are no longer Present Criteria for Inferior infarct are no longer Present T wave inversion no longer evident in Inferior leads T wave inversion no longer evident in Anterolateral leads Referred By: Nae Pinon Electronically Signed By:
[2023-09-05] MEDS: LORazepam 2 MG/ML VIAL 1 MG IVPUSH (01:48)
--- NOTE | 2023-09-05 07:00 | ECG_ITS ---
Test Reason : follow QTc Blood Pressure : / mmHG Vent. Rate : 092 BPM Atrial Rate : 092 BPM P-R Int : 118 ms QRS Dur : 082 ms QT Int : 374 ms P-R-T Axes : 023 046 209 degrees QTc Int : 462 ms Normal sinus rhythm RSR' or QR pattern in V1 suggests right ventricular conduction delay T-wave inversion in Inferior leads Lateral leads Abnormal ECG When compared with ECG of 04-SEP-2023 16:39, No significant changes seen Referred By: Nae Pinon Electronically Signed By:LÓPEZ NARVAEZ MD
[2023-09-05] MEDS: Multivitamin TABLET 1 TAB PO (07:51)
[2023-09-05] MEDS: Propranolol HCL 20 MG TABLET PO ×2 (07:51→15:39)
[2023-09-05] MEDS: Primidone 50 MG TABLET 25 MG PO (07:52)
[2023-09-05] MEDS: HaloperidoL 0.5 MG TABLET 0.25 MG PO (07:52)
[2023-09-05] MEDS: amLODIPine Besylate 10 MG TABLET PO (07:52)
[2023-09-05] MEDS: Cyproheptadine HCl 4 MG TABLET 2 MG PO ×2 (07:53→15:38)
[2023-09-05] MEDS: Fluticasone Propionate Nasal 16 GM SPRAY 1 SPRAY NOSTRIL-B (07:53)
[2023-09-05] MEDS: 0.9 % Sodium Chloride Flush 3 ML SYRINGE IVFLUSH (07:54)
--- NOTE | 2023-09-05 09:35 | CA_ITS ---
Transthoracic Echocardiogram Patient (Last, First, Middle): Miriam Valencia, Gender: Female Date of : 1950 Age: 72 Procedure Date: 09/05/2023 Procedure Type: Transthoracic Echocardiogram Location: S3E Height: 154.94 cm Weight: 49.9 kg BSA: 1.47 m2 Heart Rate: bpm BP: 167 / 84 mmHg [employer] Lecturer: GUILLE Referring MD: Marshall Grewal MD Symptoms: abnormal EKG Study Quality: Adequate ECG Rhythm: Sinus Conclusions: - The left ventricular systolic function is normal. The calculated ejection fraction is 62% by biplane method. - No obvious valvular pathology seen on this study. Findings Left Ventricle Normal left ventricular cavity size. There is normal left ventricular wall thickness. The left ventricular systolic function is normal. The calculated ejection fraction is 62% by biplane method. There is no evidence of regional wall motion abnormalities. Evidence suggests grade I (mild) diastolic dysfunction. Right Ventricle Normal right ventricular cavity size. There is low normal right ventricular systolic function. Atria Both atria are normal in size. Aortic Valve There is a normal trileaflet aortic valve. There is no aortic valve stenosis. There is trace (trivial) aortic valve regurgitation. Mitral Valve The mitral valve appears normal. There is no mitral valve regurgitation. There is no mitral valve stenosis. Pulmonic Valve The pulmonic valve is likely normal. Tricuspid Valve There is trace tricuspid valve regurgitation. There is no evidence of pulmonary hypertension. Great Vessels The asc aorta is normal in size. Venous The inferior vena cava is normal in size and collapses greater than 50% with inspiration. Pericardium/Pleural There is no evidence of pericardial effusion. Prior Study Comparison No prior study available for comparison. Recommendations, Care & Conclusions No obvious valvular pathology seen on this study. Measurements 2D Linear Measurements IVSd: 1.00 0.6-0.9/0.6-1.0 cm LVIDd: 3.76 3.9-5.3/4.2-5.9 cm LVIDd Index: 2.56 2.4-3.2/2.2-3.1 cm/m2 LVIDs: 2.41 2.0-3.6 cm LVPWd: 1.11 0.7-1.1 cm LA Diam: 2.80 2.7-3.8/3.0-4.0 cm LAIDs Index: 1.90 1.5-2.3 cm/m2 LV Mass: 155.07 67-162/88-224 g LV Mass Index: 105.49 43-95/49-115 g/m2 LVOT Diam: 2.00 3.0+(-)1.3 cm 2D Systolic Function EF 4C: 59.00 >55% EF 2C: 63.40 >55% EF BiP: 62.30 >55% Mitral Valve MV Pk E: 0.34 MV PK A: 0.69 MV Decel Time: 289.00 E/A: 0.50 E'Lateral: 7.40 E'Medial: 5.11 E/E' Med: 6.70 E/E' Lat: 4.60 PHT: 85.00 MVA PHT: 2.59 Decel Pine: 1.19 Aortic Valve AoV Pk Brian: 0.87 AoV Mn Brian: 0.60 AoV VTI: 0.15 AoV Pk Grad: 3.00 Aov Mn Grad: 2.00 MARISA Cont.VTI: 2.40 LVOT LVOT Pk Brian: 0.76 LVOT Mn Brian: 0.43 LVOT VTI: 0.12 LVOT Pk Grad: 2.00 LVOT Mn Grad: 1.00 LVOT Diam: 2.00 LVOT Area: 3.14 Diastolic Function MV Pk E: 0.34 MV Pk A: 0.69 E/A: 0.50 E'Medial: 5.11 E/E' Med: 6.70 E' Laterial: 7.40 E/E' Lat: 4.60 Right Ventricle TAPSE (mm): 16.70 TVS' Brian: 10.40 Tricuspid Valve TR Pk Brian: 1.94 TR Pk Grad: 15.00 RA Press: 3.00 RVSP: 18.00 Great Vessels Aorta Sinus of Valsalva: 3.13 2.0-3.[address] [place]: 2.51 1.7-3.4 cm Ao Asc: 3.00 2.1-3.4 cm Updated in Other Vendor System with Status of Final Marshall Grewal MD electronically signed on 09/06/2023 8:58:09 AM with status of Final
--- NOTE | 2023-09-05 10:47 | P.CONCA_ITS ---
History of Present Illness History of Present Illness Date of Service: 09/05/23 Chief complaint: agitation Narrative: This is a cardiology consultation regarding elevated troponins. Discussed with Nae Pinon. According to her, patient was admitted for agitation and tremors and there was a concern for serotonin syndrome. In that context, it seems that meds have been adjusted. EKG was routinely done to evaluate for QT and in that context, found to have T inversions in the precordial leads and hence we have been asked to see her. Patient herself does not have any cardiac symptoms. She denies any chest pain. No history of any coronary disease. Review of Systems 2 Review of Systems: Yes all other systems are reviewed and are negative Constitutional: Constitutional: Reports as per HPI and Reports no additional constitutional complaints Eyes: Eyes: Reports as per HPI and Denies no additional eye complaints ENT: Denies system reviewed and no additional complaints, except as documented and Reports as per HPI Cardiovascular: Cardiovascular: Reports as per HPI, Reports no additional cardiovascular complaints, Denies acrocyanosis, Denies cool extremities, Denies chest pain, Denies leg edema, Denies lightheadedness, Denies palpitations and Denies dyspnea Respiratory: Respiratory: Reports as per HPI, Denies no additional respiratory complaints and Denies dyspnea Gastrointestinal: Gastrointestinal: Reports as per HPI and Denies no additional gastrointestinal complaints Genitourinary: Genitourinary: Reports as per HPI Musculoskeletal: Musculoskeletal: Reports no additional musculoskeletal complaints and Reports as per HPI Integumentary/Breasts: Skin/Breast: Reports system reviewed and no additional complaints, except as docu Neurologic: Reports system reviewed and no additional complaints, except as documented and Reports as per HPI Psychiatric: Psychiatric: Reports no additional psychiatric complaints and Reports as per HPI Endocrine: Endocrine: Reports no additional endocrine complaints, Reports as per HPI and Denies palpitations Hematologic/Lymphatic: Hematologic/Lymphatic: Reports no additional hematologic/lymphatic complaints and Reports as per HPI Allergic/Immunologic: Allergic/Immunologic: Reports no additional allergic/immunologic complaints and Reports as per HPI PMF Past Medical History Medical History Depression Hypothyroidism ZAC (generalized anxiety disorder) Hypertension ADHD (attention deficit hyperactivity disorder) Family History Family History Other No pertinent family history Surgical History Surgical History H/O thumb surgery H/O cone biopsy of cervix Social History Social History Household Members: Spouse Household Members Other:: And two cats. Housing: House Do you presently have visiting nurse or other home services: No Unable to assess alcohol history related to: Unknown Alcohol intake: never Patient Tobacco Use Status: Tobacco use Unknown Tobacco use type: Cigarette Smoked in Last 30 Days: No e-Cigarette/Vaping Use: Never Used Second Hand Smoke Exposure: No Use of substances other than those prescribed or required for medical reasons: No Substance Use Type: Marijuana Currently Displaying Signs/Symptoms of Drug Intoxication Withdrawal: No Advance Directives: No Advance Directives Information Provided: Yes Do you have thoughts of harming others: None Do you have a plan to hurt others: No Plan Recently lost weight without trying: Unsure Nutrition Risks: No Nutritional Risk Patient : No service: No Sexual orientation: Straight/Heterosexual Meds Allergies Allergy/AdvReac Type Severity Reaction Status Date / Time No Known Allergies Allergy Verified 08/27/23 10:27 Active Medications: Current Medications Acetaminophen (Acetaminophen 325 Mg Tablet) 650 mg PO Q6H PRN PRN Reason: Pain, Mild (Pain Scale 1-3) Last Admin: 09/04/23 20:09 Dose: 650 mg Acetaminophen (Acetaminophen Supp 650 Mg Supp.Rect) 650 mg DE Q6H PRN PRN Reason: Pain, Mild (Pain Scale 1-3) Amlodipine Besylate (Amlodipine Besylate 10 Mg Tablet) 10 mg PO DAILY [facility]; Protocol Last Admin: 09/05/23 07:52 Dose: 10 mg Ascorbic Acid (Ascorbic Acid 500 Mg Tablet) 2,000 mg PO BEDTIME [facility] Last Admin: 09/04/23 20:09 Dose: 2,000 mg Cyproheptadine HCl (Cyproheptadine Hcl 4 Mg Tablet) 2 mg PO TID [facility] Last Admin: 09/05/23 07:53 Dose: 2 mg Enoxaparin Sodium (Enoxaparin Sodium 40 Mg/0.4 Ml Syringe) 40 mg SUBCUT Q24H [facility] Last Admin: 09/04/23 20:08 Dose: 40 mg Fluticasone Propionate (Fluticasone Propionate Nasal 16 Gm [place]) 1 spray NOSTRIL-B BID REPLACED BY [facility] Last Admin: 09/05/23 07:53 Dose: 1 spray Haloperidol (Haloperidol 0.5 Mg Tablet) 0.25 mg PO BID REPLACED BY [facility] Last Admin: 09/05/23 07:52 Dose: 0.25 mg Lorazepam (Lorazepam 1 Mg Tablet) 1 mg PO BEDTIME REPLACED BY [facility] Last Admin: 09/04/23 20:09 Dose: 1 mg Melatonin (Melatonin 3 Mg Tablet) 6 mg PO BEDTIME PRN PRN Reason: Insomnia Last Admin: 09/04/23 20:09 Dose: 6 mg Multivitamins/Vitamin C (Multivitamin Tablet) 1 tab PO DAILY [facility]PLACED BY [facility] Last Admin: 09/05/23 07:51 Dose: 1 tab Omeprazole (Omeprazole 20 Mg Capsule.Dr) 20 mg PO DAILY@0630 REPLACED BY [facility] Last Admin: 09/05/23 06:19 Dose: Not Given Primidone (Primidone 50 Mg Tablet) 25 mg PO BID REPLACED BY [facility] Last Admin: 09/05/23 07:52 Dose: 25 mg Propranolol HCl (Propranolol Hcl 20 Mg Tablet) 20 mg PO TID [facility]PLACED BY [facility]; Protocol Last Admin: 09/05/23 07:51 Dose: 20 mg Sodium Chloride (0.9 % Sodium Chloride Flush 3 Ml Syringe) 3 ml IVFLUSH QSHIFT REPLACED BY [facility] Last Admin: 09/05/23 07:54 Dose: 3 ml Home Medications Medication Instructions Recorded Confirmed Last Taken Type amlodipine 5 mg tablet 10 mg PO DAILY 10/23/22 08/27/23 10/23/22 History alprazolam 0.25 mg tablet 0.5 mg PO TID PRN anxiety 08/27/23 08/27/23 Unknown History esketamine 56 mg (28 mg x 2) nasal 84 mg intranasal TUTH 08/27/23 08/27/23 08/27/23 History spray ([place]) fluticasone propionate 50 1 spray intranasal BID 08/27/23 08/27/23 Unknown History mcg/actuation nasal spray,suspension propranolol 20 mg tablet 20 mg PO BID 08/27/23 08/27/23 Unknown History Physical Exam 2 Vital Signs: Vital Signs: Last Vital Signs Temp 97.7 F 09/05/23 07:38 Pulse 94 09/05/23 07:38 Resp 18 09/05/23 07:38 BP 167/84 H 09/05/23 07:38 Pulse Ox 93 09/05/23 07:38 O2 Del Method Room Air 09/05/23 07:38 BMI result Body Mass Index 20.8 Const: General: comfortable and no acute distress O rientation/consciousness: patient oriented x3 HEENT: Other: Unremarkable Head: Yes normal to inspection Neck: Neck: Yes normal visual inspection Chest: Chest palpation & inspection: normal inspection of the chest Resp: Auscultation: clear to auscultation bilaterally Cardio: Palpation: normal PMI Heart sounds: S1 normal heart sound present, S2 normal heart sound present, no gallops, no murmurs and no rubs GI: Palpation (GI): Soft to palpation Back/Spine/Pelvis: Other: unremarkable Skin: General skin exam: no rashes or lesions noted Neuro: General: patient oriented x3 Extrem: General: Yes normal to inspection Psych: Mental Status: mental status grossly normal Objective Labs and Meds 09/03/23 05:10 09/04/23 05:19 Lab results: Laboratory Results - last 24 hr 09/04/23 18:50 Troponin I High Sens < 2.7 ECG Interpretation: EKG was repeated today and that is completely normal. No T inversions. In the EKG from yesterday, there is 2 inversions in the anterior leads as well as lead 1, aVL and in the inferior leads. Going back to the 27 of August, EKG was normal. Imaging Radiologist's impression: Impressions Barium Swallow X-Ray 09/03/23 13:56 IMPRESSION: Somewhat limited exam as discussed. 1) Small amount of subglottic aspiration of thick barium noted on first swallow. 2) Irregular mucosal pattern of the superior esophagus suggestive of erosive esophagitis. Given preference of the superior one third of the esophagus, Ann esophagitis (thrush) should be strongly considered. Direct visualization with endoscopy is recommended. Would also recommend direct visualization of the posterior oropharynx to assess for classic plaques of Ann. 3) Marked esophageal dysmotility. Small type I hiatus hernia. Cannot well assess for reflux. 4. Somewhat delayed opening of the LES, suggesting a mild component of achalasia. This procedures performed by French Wheeler PA-C, and supervised by Dr. Webster. The care team was made aware of the findings by French Wheeler PA-C. Assessment and Plan (1) Abnormal EKG: Status: Acute Plan Troponin level was unremarkable yesterday. Repeat level is pending. As above, inverted T-waves seen in EKG yesterday but resolved back to normal today. Seems to be a nonspecific finding. Patient has no chest pain or cardiac symptoms. Will evaluate for any wall motion on the echocardiogram. Discussed with hospitalist. Time Spent With Patient Time: Total time managing care of this patient today ____ minutes. Procedures Date of Service Date of Service: 09/05/23
[2023-09-05 11:27] LABS: Troponin-I High Sensitivity 2.8 ng/L (<3.5-17.0)
[2023-09-05] MEDS: Fluconazole 100 MG TABLET PO (14:39)
--- NOTE | 2023-09-05 14:45 | HO.PM.IMPN ---
Subjective Subjective Date of Service: 09/05/23 Interval History: seen and examined this morning more talkative no overnight events noted no chest pain or sob Review of Systems Review of Systems: Yes all other systems are reviewed and are negative Constitutional Constitutional: Denies chills and Denies fever(s) Cardiovascular Cardiovascular: Denies chest pain and Denies dyspnea Respiratory Respiratory: Denies dyspnea Gastrointestinal Gastrointestinal: Denies abdominal pain Physical Exam Vital Signs: Vital Signs: Last Vital Signs Temp 97.9 F 09/05/23 11:51 Pulse 82 09/05/23 11:51 Resp 16 09/05/23 11:51 BP 127/69 09/05/23 11:51 Pulse Ox 94 09/05/23 11:51 O2 Del Method Room Air 09/05/23 11:51 BMI result Body Mass Index 20.8 Const: General: comfortable, no acute distress, alert and awake Nutritional Appearance: thin Resp: Effort & Inspection: normal respiratory effort, able to speak in complete sentences, no respiratory distress and no use of accessory muscles Cardio: Rate: regular rate GI: Inspection: No distended Palpation (GI): Soft to palpation Neuro: Other: mild tremor b/l upper extremities; grossly nonfocal General: moves all extremities Extrem: General: Yes no pedal edema Psych: Other: flat affect Objective Data Active Medications Acetaminophen (Acetaminophen 325 Mg Tablet) 650 mg PO Q6H PRN PRN Reason: Pain, Mild (Pain Scale 1-3) Last Admin: 09/04/23 20:09 Dose: 650 mg Documented By: LACEY Acetaminophen (Acetaminophen Supp 650 Mg Supp.Rect) 650 mg [place] Q6H PRN PRN Reason: Pain, Mild (Pain Scale 1-3) Amlodipine Besylate (Amlodipine Besylate 10 Mg Tablet) 10 mg PO DAILY [facility]; Protocol Last Admin: 09/05/23 07:52 Dose: 10 mg Documented By: HARIKA Ascorbic Acid (Ascorbic Acid 500 Mg Tablet) 2,000 mg PO BEDTIME [facility] Last Admin: 09/04/23 20:09 Dose: 2,000 mg Documented By: LACEY Cyproheptadine HCl (Cyproheptadine Hcl 4 Mg Tablet) 2 mg PO TID [facility] Last Admin: 09/05/23 07:53 Dose: 2 mg Documented By: HARIKA Enoxaparin Sodium (Enoxaparin Sodium 40 Mg/0.4 Ml Syringe) 40 mg SUBCUT Q24H [facility] Last Admin: 09/04/23 20:08 Dose: 40 mg Documented By: LACEY Fluconazole (Fluconazole 100 Mg Tablet) 100 mg PO DAILY [facility] Stop: 09/18/23 13:29 Last Admin: 09/05/23 14:39 Dose: 100 mg Documented By: HARIKA Fluticasone Propionate (Fluticasone Propionate Nasal 16 Gm [place]) 1 spray NOSTRIL-B BID [facility] Last Admin: 09/05/23 07:53 Dose: 1 spray Documented By: HARIKA Haloperidol (Haloperidol 0.5 Mg Tablet) 0.25 mg PO BID [facility] Last Admin: 09/05/23 07:52 Dose: 0.25 mg Documented By: HARIKA Lorazepam (Lorazepam 1 Mg Tablet) 1 mg PO BEDTIME [facility] Last Admin: 09/04/23 20:09 Dose: 1 mg Documented By: LACEY Melatonin (Melatonin 3 Mg Tablet) 6 mg PO BEDTIME PRN PRN Reason: Insomnia Last Admin: 09/04/23 20:09 Dose: 6 mg Documented By: LACEY Multivitamins/Vitamin C (Multivitamin Tablet) 1 tab PO DAILY [facility] Last Admin: 09/05/23 07:51 Dose: 1 tab Documented By: HARIKA Omeprazole (Omeprazole 20 Mg Capsule.Dr) 20 mg PO DAILY@0630 [facility] Last Admin: 09/05/23 06:19 Dose: Not Given Documented By: LACEY Non-Admin Reason: Patient Refused Primidone (Primidone 50 Mg Tablet) 25 mg PO BID [facility] Last Admin: 09/05/23 07:52 Dose: 25 mg Documented By: HARIKA Propranolol HCl (Propranolol Hcl 20 Mg Tablet) 20 mg PO TID [facility]; Protocol Last Admin: 09/05/23 07:51 Dose: 20 mg Documented By: HARIKA Sodium Chloride (0.9 % Sodium Chloride Flush 3 Ml Syringe) 3 ml IVFLUSH QSHIFT [facility] Last Admin: 09/05/23 07:54 Dose: 3 ml Documented By: HARIKA Labs 09/03/23 05:10 09/04/23 05:19 Assessment and Plan (1) Odynophagia: Status: Acute (2) Abnormal EKG: Status: Acute Plan 72F PMH htn, adhd, anxiety, depression, presented with agitation, tremors, ataxia agitation and tremors, concern for seritonin syndrome continue periactin and hold other meds psych following seen by neuro, agree with med adjustment, no further recs started primidone with improvement in essential tremor plan for inpatient psych when medically cleared dysphagia micromatic hone operator appreciated - due to patient preference diet changed to NDD1 s/p barium swallow 09/03 showing changes concerning for erosive esophagitis seen by GI, plan to treat with po fluconazole (Qtc checked and under 500) and tentative EGD scheduled for Thursday po PPI MBSS with no overt signs of aspiration but pt does not want diet advanced EKG changes EKG obtained to assess Qtc, incidentally noted to have new twave inversions trop negative x 2 no chest pain seen by cardiology, plan for echo hypokalemia improved with replacement SOB saturation 94% on room air, CXR negative urinary retention failed voiding trial 08/31/23 savage replaced, repeat trial today htn some high readings - will d/c IVF continue propanolol, amlodipine dvt prophlyaxis - lovenox code status - full code attending - Dr. Field reason for continued hospitalization: dysphagia, electrolyte replacement/monitoring Time Spent With Patient Time: Total time managing care of this patient today ____ minutes. Quality Stroke Does the patient have a stroke diagnosis?: No VTE Prior VTE?: No VTE Risk Level:: Medical - moderate - high VTE Device Contraindication: Treatment Not Indicated VTE Drug Contraindication: N/A - Med Ordered
[2023-09-06] MEDS: 0.9 % Sodium Chloride Flush 3 ML SYRINGE IVFLUSH ×3 (00:27→19:58)
[2023-09-06 04:00] VITALS: BP 133/67; PULSE 91; RESP 18; TEMP 36.4; O2SAT 92
[2023-09-06 05:59] LABS: Alanine Aminotransferase 471 U/L (0-31); Albumin Level 3.3 g/dL (3.5-5.0); Alkaline Phosphatase 111 U/L (39-117); Anion Gap 15 (12-20); Aspartate Amino Transferase 172 U/L (5-31); Bilirubin Direct < 0.2 mg/dL (0.0-0.5); Bilirubin Total 0.2 mg/dL (0.0-1.0); Blood Urea Nitrogen 22 mg/dL (9-16); Calcium 9.8 mg/dL (8.4-10.2); Carbon Dioxide 25 mmol/L (22-29); Chloride 103 mmol/L (96-108); Creatinine Clr Calc Pharmacy 51.1; Estimated Glomerular Filt Rate > 60; Glucose Random 97 mg/dL (60-115); Potassium 3.7 mmol/L (3.3-5.1); Sodium 139 mmol/L (135-145); Total Protein 5.8 g/dL (6.5-8.0)
[2023-09-06 07:48] VITALS: BP 136/70; PULSE 74; RESP 16; TEMP 36.6; O2SAT 96
--- NOTE | 2023-09-06 08:26 | HO.PM.IMPN ---
Subjective Subjective Date of Service: 09/06/23 Interval History: Seem comfortable, not saying anything, no agiation Physical Exam Vital Signs: Vital Signs: Last Vital Signs Temp 97.8 F 09/06/23 07:48 Pulse 74 09/06/23 07:48 Resp 16 09/06/23 07:48 BP 136/70 09/06/23 07:48 Pulse Ox 96 09/06/23 07:48 O2 Del Method Room Air 09/06/23 07:48 BMI result Body Mass Index 20.8 Const: Other: resting in bed appears comfortable breathing easy and without distress mild b/l upper extremity present moving all extremities remainder of exam declined by patient Objective Data Active Medications Acetaminophen (Acetaminophen 325 Mg Tablet) 650 mg PO Q6H PRN PRN Reason: Pain, Mild (Pain Scale 1-3) Last Admin: 09/04/23 20:09 Dose: 650 mg Documented By: LACEY Acetaminophen (Acetaminophen Supp 650 Mg Supp.Rect) 650 mg ID Q6H PRN PRN Reason: Pain, Mild (Pain Scale 1-3) Amlodipine Besylate (Amlodipine Besylate 10 Mg Tablet) 10 mg PO DAILY [facility]; Protocol Last Admin: 09/05/23 07:52 Dose: 10 mg Documented By: HARIKA Ascorbic Acid (Ascorbic Acid 500 Mg Tablet) 2,000 mg PO BEDTIME [facility] Last Admin: 09/05/23 22:03 Dose: Not Given Documented By: LACEY Non-Admin Reason: Patient Refused Cyproheptadine HCl (Cyproheptadine Hcl 4 Mg Tablet) 2 mg PO TID [facility] Last Admin: 09/05/23 22:03 Dose: Not Given Documented By: LACEY Non-Admin Reason: Patient Refused Enoxaparin Sodium (Enoxaparin Sodium 40 Mg/0.4 Ml Syringe) 40 mg SUBCUT Q24H [facility] Last Admin: 09/05/23 22:04 Dose: Not Given Documented By: LACEY Non-Admin Reason: Patient Refused Fluconazole (Fluconazole 100 Mg Tablet) 100 mg PO DAILY [facility] Stop: 09/18/23 13:29 Last Admin: 09/05/23 14:39 Dose: 100 mg Documented By: HARIKA Fluticasone Propionate (Fluticasone Propionate Nasal 16 Gm [place]) 1 spray NOSTRIL-B BID [facility] Last Admin: 09/05/23 22:04 Dose: Not Given Documented By: LACEY Non-Admin Reason: Patient Refused Haloperidol (Haloperidol 0.5 Mg Tablet) 0.25 mg PO BID [facility] Last Admin: 09/05/23 22:04 Dose: Not Given Documented By: LACEY Non-Admin Reason: Patient Refused Lorazepam (Lorazepam 1 Mg Tablet) 1 mg PO BEDTIME [facility] Last Admin: 09/05/23 22:04 Dose: Not Given Documented By: LACEY Non-Admin Reason: Patient Refused Melatonin (Melatonin 3 Mg Tablet) 6 mg PO BEDTIME PRN PRN Reason: Insomnia Last Admin: 09/04/23 20:09 Dose: 6 mg Documented By: LACEY Multivitamins/Vitamin C (Multivitamin Tablet) 1 tab PO DAILY [facility] Last Admin: 09/05/23 07:51 Dose: 1 tab Documented By: HARIKA Omeprazole (Omeprazole 20 Mg Capsule.) 20 mg PO DAILY@0630 [facility] Last Admin: 09/06/23 05:49 Dose: Not Given Documented By: LACEY Non-Admin Reason: Patient Refused Primidone (Primidone 50 Mg Tablet) 25 mg PO BID [facility] Last Admin: 09/05/23 22:04 Dose: Not Given Documented By: LACEY Non-Admin Reason: Patient Refused Propranolol HCl (Propranolol Hcl 20 Mg Tablet) 20 mg PO TID [facility]; Protocol Last Admin: 09/05/23 22:16 Dose: Not Given Documented By: LACEY Non-Admin Reason: Patient Refused Sodium Chloride (0.9 % Sodium Chloride Flush 3 Ml Syringe) 3 ml IVFLUSH QSHIFT [facility] Last Admin: 09/06/23 08:23 Dose: 3 ml Documented By: COTEMA Labs 09/03/23 05:10 09/06/23 05:10 Labs: Laboratory Results - last 24 hr 09/06/23 05:10 Hold Purple Top SEE NOTE Anion Gap 15 Estim Creat Clear Calc 51.1 Estimated GFR > 60 Random Glucose 97 Calcium 9.8 Total Bilirubin 0.2 Direct Bilirubin < 0.2 AST 172 H ALT 471 H Alkaline Phosphatase 111 Total Protein 5.8 L Albumin 3.3 L Assessment and Plan (1) Odynophagia: Status: Acute (2) Abnormal EKG: Status: Acute Plan 72F PMH htn, adhd, anxiety, depression, presented with agitation, tremors, ataxia agitation and tremors, concern for seritonin syndrome continue periactin and hold other meds psych following seen by neuro, agree with med adjustment, no further recs started primidone with improvement in essential tremor plan for inpatient psych when medically cleared dysphagia teacher instrumental appreciated - due to patient preference diet changed to NDD1 s/p barium swallow 09/03 showing changes concerning for erosive esophagitis seen by GI, plan to treat with po fluconazole (Qtc checked and under 500) and tentative EGD scheduled for Thursday po PPI MBSS with no overt signs of aspiration but pt does not want diet advanced EKG changes EKG obtained to assess Qtc, incidentally noted to have new twave inversions trop negative x 2 no chest pain seen by cardiology, plan for echo tomorrow. No further testing at this time hypOkalemia, corrected w/ supplement SOB saturation 94% on room air, CXR negative--resolved urinary retention failed voiding trial 08/31/23 savage replaced, voding trial and remove savage htn--controlled on proparanolol and Norvasc dvt prophlyaxis - lovenox code status - full code reason for continued hospitalization: dysphagia, electrolyte replacement/monitoring and awaiting Psych placement Time Spent With Patient Time: Total time managing care of this patient today ____ minutes. Quality Stroke Does the patient have a stroke diagnosis?: No VTE Prior VTE?: No VTE Risk Level:: Medical - moderate - high VTE Device Contraindication: Treatment Not Indicated VTE Drug Contraindication: N/A - Med Ordered
[2023-09-06 12:00] VITALS: BP 123/67; PULSE 100; RESP 16; TEMP 36.2; O2SAT 92
[2023-09-06] MEDS: LORazepam 2 MG/ML VIAL 1 MG IVPUSH ×3 (13:24→19:57)
[2023-09-06] MEDS: Lactated Ringers 1,000 ML 100 ML IVCONT ×2 (13:24→23:40)
[2023-09-06 15:43] VITALS: BP 136/75; PULSE 100; RESP 16; TEMP 36.3; O2SAT 92
--- NOTE | 2023-09-06 18:37 | PC.NURSE ---
pt bladder scan 412mls. order to straight cath if bladder scan greater than 400mls. pt straight cathed at 1830 for 400mls. patient due to void at 0030.
[2023-09-06 19:38] VITALS: BP 120/70; PULSE 100; RESP 16; TEMP 36.1; O2SAT 93
--- NOTE | 2023-09-06 23:53 | PM.PSYCN ---
History of Present Illness Date of Service: 09/06/2023 Chief Complaint: agitation Reason for Consult: Ongoing management history of recurrent depression now with eyes closed mute not taking in fluids HPI Narrative: Patient's case reviewed extensively with Dr. Jj patient seen on multiple occasions throughout the day. Patient has been lying mostly with her eyes closed generally not responding not febrile electrolytes unremarkable white count not elevated recent MRI unremarkable there has been LFT increase Discussed with Dr. Jj above concerns regarding catatonia and to consider IV Ativan trial patient tremulous no rigidity Past Psychiatric History: -Pt sees Dr. 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 she does occasionally smoke marijuana Substance History: Occasional marijuana use Trauma History: NA Diagnostics Vital Signs (24Hr): Vital Signs - 24 hr 09/06/23 04:00 09/06/23 07:48 09/06/23 12:00 Temperature 97.6 F 97.8 F 97.2 F Pulse Rate 91 74 100 Respiratory Rate 18 16 16 Blood Pressure 133/67 136/70 123/67 Pulse Oximetry 92 96 92 Oxygen Delivery Method Room Air Room Air Room Air 09/06/23 15:43 09/06/23 19:38 Temperature 97.4 F 97.0 F Pulse Rate 100 100 Respiratory Rate 16 16 Blood Pressure 136/75 120/70 Pulse Oximetry 92 93 Oxygen Delivery Method Room Air BMI result Body Mass Index 20.8 Labs 09/03/23 05:10 09/06/23 05:10 Labs: Laboratory Results - last 48 hr 09/05/23 09/06/23 10:29 05:10 Hold Purple Top SEE NOTE Sodium 139 Potassium 3.7 Chloride 103 Carbon Dioxide 25 Anion Gap 15 BUN 22 H Creatinine 0.74 Estim Creat Clear Calc 51.1 Estimated GFR > 60 Random Glucose 97 Calcium 9.8 Total Bilirubin 0.2 Direct Bilirubin < 0.2 AST 172 H ALT 471 H Alkaline Phosphatase 111 Troponin I High Sens 2.8 Total Protein 5.8 L Albumin 3.3 L Imaging Radiology Impressions: ITS Impressions Brain MRI 09/01/23 12:35 IMPRESSION: 1. No acute infarct or other acute intracranial abnormality 2. Moderate chronic microangiopathy Chest X-Ray 09/02/23 10:20 IMPRESSION: Unremarkable examination. Barium Swallow X-Ray 09/03/23 13:56 IMPRESSION: Somewhat limited exam as discussed. 1) Small amount of subglottic aspiration of thick barium noted on first swallow. 2) Irregular mucosal pattern of the superior esophagus suggestive of erosive esophagitis. Given preference of the superior one third of the esophagus, Ann esophagitis (thrush) should be strongly considered. Direct visualization with endoscopy is recommended. Would also recommend direct visualization of the posterior oropharynx to assess for classic plaques of Ann. 3) Marked esophageal dysmotility. Small type I hiatus hernia. Cannot well assess for reflux. 4. Somewhat delayed opening of the LES, suggesting a mild component of achalasia. This procedures performed by French Wheeler PA-C, and supervised by Dr. Webster. The care team was made aware of the findings by French Wheeler PA-C. Mental Status Exam Mental Status Exam Narrative: Patient seen lying in bed in hospital garb. Patient generally not responding to verbal questioning will occasionally open her I have very [place] minimally for brief period of time bilateral tremors noted no rigidity afebrile not speaking patient appears to be in no respiratory distress no waxy flexibility noted Medications Medications Current Medications Acetaminophen (Acetaminophen 325 Mg Tablet) 650 mg PO Q6H PRN PRN Reason: Pain, Mild (Pain Scale 1-3) Last Admin: 09/04/23 20:09 Dose: 650 mg Acetaminophen (Acetaminophen Supp 650 Mg Supp.Rect) 650 mg [place] Q6H PRN PRN Reason: Pain, Mild (Pain Scale 1-3) Amlodipine Besylate (Amlodipine Besylate 10 Mg Tablet) 10 mg PO DAILY [facility]; Protocol Last Admin: 09/06/23 09:59 Dose: Not Given Ascorbic Acid (Ascorbic Acid 500 Mg Tablet) 2,000 mg PO BEDTIME [facility] Last Admin: 09/06/23 20:01 Dose: Not Given Cyproheptadine HCl (Cyproheptadine Hcl 4 Mg Tablet) 2 mg PO TID [facility] Last Admin: 09/06/23 20:01 Dose: Not Given Enoxaparin Sodium (Enoxaparin Sodium 40 Mg/0.4 Ml Syringe) 40 mg SUBCUT Q24H [facility] Last Admin: 09/06/23 20:02 Dose: Not Given Fluconazole (Fluconazole 100 Mg Tablet) 100 mg PO DAILY [facility] Stop: 09/18/23 13:29 Last Admin: 09/06/23 09:59 Dose: Not Given Fluticasone Propionate (Fluticasone Propionate Nasal 16 Gm [place]) 1 spray NOSTRIL-B BID [facility] Last Admin: 09/06/23 20:01 Dose: Not Given Haloperidol (Haloperidol 0.5 Mg Tablet) 0.25 mg PO BID [facility] Last Admin: 09/06/23 20:01 Dose: Not Given Lactated Ringer's (Lr) 1,000 mls @ 100 mls/hr IVCONT .Q10H [facility] Last Admin: 09/06/23 23:40 Dose: 100 mls/hr Lorazepam (Lorazepam 1 Mg Tablet) 1 mg PO BEDTIME [facility] Last Admin: 09/06/23 20:01 Dose: Not Given Lorazepam (Lorazepam 2 Mg/Ml Vial) 1 mg IVPUSH Q6H [facility] Stop: 09/07/23 02:01 Last Admin: 09/06/23 19:57 Dose: 1 mg Melatonin (Melatonin 3 Mg Tablet) 6 mg PO BEDTIME PRN PRN Reason: Insomnia Last Admin: 09/04/23 20:09 Dose: 6 mg Multivitamins/Vitamin C (Multivitamin Tablet) 1 tab PO DAILY [facility] Last Admin: 09/06/23 10:00 Dose: Not Given Omeprazole (Omeprazole 20 Mg Capsule.Dr) 20 mg PO DAILY@0630 [facility] Last Admin: 09/06/23 05:49 Dose: Not Given Primidone (Primidone 50 Mg Tablet) 25 mg PO BID [facility] Last Admin: 09/06/23 20:02 Dose: Not Given Propranolol HCl (Propranolol Hcl 20 Mg Tablet) 20 mg PO TID [facility]; Protocol Last Admin: 09/06/23 20:02 Dose: Not Given Sodium Chloride (0.9 % Sodium Chloride Flush 3 Ml Syringe) 3 ml IVFLUSH QSHIFT [facility] Last Admin: 09/06/23 19:58 Dose: 3 ml Allergies Allergies Allergy/AdvReac Type Severity Reaction Status Date / Time No Known Allergies Allergy Verified 08/27/23 10:27 Assessment & Plan Assessment & Plan (1) Organic catatonia: Status: Acute Code(s): F06.1 - Catatonic disorder due to known physiological condition (2) Odynophagia: Status: Acute Code(s): R13.10 - Dysphagia, unspecified (3) Serotonin syndrome: Status: Acute Code(s): G25.79 - Other drug induced movement disorders (4) Tremors of nervous system: Status: Acute Code(s): R25.1 - Tremor, unspecified (5) Depression, major, severe recurrence: Status: Acute Code(s): F33.2 - Major depressive disorder, recurrent severe without psychotic features Plan Patient appears to be in their hypoactive delirium question catatonia case reviewed extensively with Internal Medicine we discussed a trial of IV push Ativan discussed need to maintain hydration patient on IV fluid white count unremarkable LFTs some increase chemistries unremarkable Patient not verbal outside of opening her eye minimally no involuntary movement noted does appear to be responding to voices at times when people were speaking will trying get additional inferred input from Dr. alvarez also discussed need for questionable ways to maintain nutrition rule out other causes for current symptoms Patient does not have history of catatonia Total time managing care of this patient today ____ minutes. Informed Consent: does not understand
[2023-09-07] MEDS: LORazepam 2 MG/ML VIAL 1 MG IVPUSH ×2 (02:39→10:16)
[2023-09-07 03:35] VITALS: BP 124/74; PULSE 84; RESP 18; TEMP 37.1; O2SAT 96
[2023-09-07 07:38] VITALS: BP 137/66; PULSE 99; RESP 16; TEMP 36.2; O2SAT 93
[2023-09-07] MEDS: Lactated Ringers 1,000 ML 100 ML IVCONT ×2 (10:16→20:19)
--- NOTE | 2023-09-07 10:35 | MHC.SLORD ---
Speech Language Pathology Order Status: Pt's reports pt was supposed to have EGD, but he's not sure if that's still going to happen today because pt has been out of it and catatonic. 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 No PO trials administered. Pt is currently on a pureed diet and thin liquids, had MBSS 10/20 showing flash penetration, but no aspiration.
--- NOTE | 2023-09-07 11:18 | HO.PM.IMPN ---
Subjective Subjective Date of Service: 09/07/23 Interval History: She is catatonic Physical Exam Vital Signs: Vital Signs: Last Vital Signs Temp 97.1 F 09/07/23 07:38 Pulse 99 09/07/23 07:38 Resp 16 09/07/23 07:38 BP 137/66 09/07/23 07:38 Pulse Ox 93 09/07/23 07:38 O2 Del Method Room Air 09/07/23 07:38 BMI result Body Mass Index 20.8 Const: Other: General: Catatonic, not saying anything Resp: CTA bilateral CVS: S1,S2,RRR GI: +BS, NT, no distention Skin: No rash Neuro: motor grossly intact Psych: appropriate affect Objective Data Active Medications Acetaminophen (Acetaminophen 325 Mg Tablet) 650 mg PO Q6H PRN PRN Reason: Pain, Mild (Pain Scale 1-3) Last Admin: 09/04/23 20:09 Dose: 650 mg Documented By: LACEY Acetaminophen (Acetaminophen Supp 650 Mg Supp.Rect) 650 mg [place] Q6H PRN PRN Reason: Pain, Mild (Pain Scale 1-3) Amlodipine Besylate (Amlodipine Besylate 10 Mg Tablet) 10 mg PO DAILY [facility]; Protocol Last Admin: 09/07/23 09:53 Dose: Not Given Documented By: RAMBO Non-Admin Reason: patient unable to swallow Ascorbic Acid (Ascorbic Acid 500 Mg Tablet) 2,000 mg PO BEDTIME [facility] Last Admin: 09/06/23 20:01 Dose: Not Given Documented By: MADELINE Non-Admin Reason: Patient Refused Cyproheptadine HCl (Cyproheptadine Hcl 4 Mg Tablet) 2 mg PO TID [facility] Last Admin: 09/07/23 09:54 Dose: Not Given Documented By: RAMBO Non-Admin Reason: patient unable to swallow Enoxaparin Sodium (Enoxaparin Sodium 40 Mg/0.4 Ml Syringe) 40 mg SUBCUT Q24H [facility] Last Admin: 09/06/23 20:02 Dose: Not Given Documented By: MADELINE Non-Admin Reason: Patient Refused Fluconazole (Fluconazole 100 Mg Tablet) 100 mg PO DAILY [facility] Stop: 09/18/23 13:29 Last Admin: 09/07/23 09:54 Dose: Not Given Documented By: RAMBO Non-Admin Reason: patient unable to swallow Fluticasone Propionate (Fluticasone Propionate Nasal 16 Gm [place]) 1 spray NOSTRIL-B BID [facility] Last Admin: 09/07/23 10:19 Dose: Not Given Documented By: RAMBO Non-Admin Reason: Patient Asleep Haloperidol (Haloperidol 0.5 Mg Tablet) 0.25 mg PO BID [facility] Last Admin: 09/07/23 09:54 Dose: Not Given Documented By: RAMBO Non-Admin Reason: patient unable to swallow Lactated Ringer's (Lr) 1,000 mls @ 100 mls/hr IVCONT .Q10H [facility] Last Admin: 09/07/23 10:16 Dose: 100 mls/hr Documented By: RAMBO Lorazepam (Lorazepam 1 Mg Tablet) 1 mg PO BEDTIME [facility] Last Admin: 09/06/23 20:01 Dose: Not Given Documented By: MADELINE Non-Admin Reason: Patient Refused Melatonin (Melatonin 3 Mg Tablet) 6 mg PO BEDTIME PRN PRN Reason: Insomnia Last Admin: 09/04/23 20:09 Dose: 6 mg Documented By: LACEY Multivitamins/Vitamin C (Multivitamin Tablet) 1 tab PO DAILY [facility] Last Admin: 09/07/23 09:55 Dose: Not Given Documented By: RAMBO Non-Admin Reason: patient unable to swallow Omeprazole (Omeprazole 20 Mg Capsule.Dr) 20 mg PO DAILY@0630 [facility] Last Admin: 09/07/23 05:51 Dose: Not Given Documented By: MADELINE Non-Admin Reason: Patient Refused Primidone (Primidone 50 Mg Tablet) 25 mg PO BID [facility] Last Admin: 09/07/23 09:55 Dose: Not Given Documented By: RAMBO Non-Admin Reason: patient unable to swallow Propranolol HCl (Propranolol Hcl 20 Mg Tablet) 20 mg PO TID [facility]; Protocol Last Admin: 09/07/23 09:55 Dose: Not Given Documented By: RAMBO Non-Admin Reason: patient unable to swallow Sodium Chloride (0.9 % Sodium Chloride Flush 3 Ml Syringe) 3 ml IVFLUSH QSHIFT [facility] Last Admin: 09/07/23 09:49 Dose: Not Given Documented By: RAMBO Non-Admin Reason: IV Running Labs 09/03/23 05:10 09/06/23 05:10 Assessment and Plan (1) Odynophagia: Status: Acute (2) Abnormal EKG: Status: Acute Plan 72F PMH htn, adhd, anxiety, depression, presented with agitation, tremors, ataxia agitation and tremors, concern for seritonin syndrome intialy but seems to have resolved. She is now catatonic which is being managed by [facility] continue periactin and hold other meds psych following seen by neuro, agree with med adjustment, no further recs started primidone with improvement in essential tremor plan for inpatient psych when medically cleared dysphagia profile trimmer appreciated - due to patient preference diet changed to NDD1 s/p barium swallow 09/03 showing changes concerning for erosive esophagitis seen by GI, plan to treat with po fluconazole (Qtc checked and under 500) and tentative EGD scheduled for Thursday po PPI MBSS with no overt signs of aspiration but pt does not want diet advanced EKG changes EKG obtained to assess Qtc, incidentally noted to have new twave inversions trop negative x 2 no chest pain seen by cardiology, plan for echo tomorrow. No further testing at this time hypOkalemia, corrected w/ supplement SOB saturation 94% on room air, CXR negative--resolved urinary retention failed voiding trial 08/31/23 savage replaced, voding trial and remove savage htn--controlled on proparanolol and Norvasc dvt prophlyaxis - lovenox code status - full code reason for continued hospitalization: dysphagia, electrolyte replacement/monitoring and awaiting Psych placement Time Spent With Patient Time: Total time managing care of this patient today ____ minutes. Quality Stroke Does the patient have a stroke diagnosis?: No VTE Prior VTE?: No VTE Risk Level:: Medical - moderate - high VTE Device Contraindication: Treatment Not Indicated VTE Drug Contraindication: N/A - Med Ordered
[2023-09-07 12:00] VITALS: BP 119/64; PULSE 107; RESP 18; TEMP 36.8; O2SAT 91
--- NOTE | 2023-09-07 13:25 | MHC.CM.PN ---
per rounds pt awaitmg [facility] annalise
--- NOTE | 2023-09-07 13:26 | MHC.CM.PN ---
per rounds pt awaitng psyh placement
[2023-09-07 15:01] VITALS: BP 139/66; PULSE 108; RESP 20; TEMP 37.3; O2SAT 92
[2023-09-07] MEDS: LORazepam 2 MG/ML VIAL IVPUSH (15:35)
[2023-09-07 16:15] LABS: Ammonia 21 umol/L (13-55)
[2023-09-07 16:22] LABS: Alanine Aminotransferase 356 U/L (0-31); Albumin Level 2.9 g/dL (3.5-5.0); Alkaline Phosphatase 105 U/L (39-117); Aspartate Amino Transferase 136 U/L (5-31); Bilirubin Direct < 0.2 mg/dL (0.0-0.5); Bilirubin Total 0.2 mg/dL (0.0-1.0); Total Protein 5.2 g/dL (6.5-8.0)
--- NOTE | 2023-09-07 16:34 | P.PNGI_ITS ---
Subjective Subjective Date of Service: 09/07/23 Interval History: Seen at bedside. Laying down with eyes shut. Occasionally opens to name but does not engage in conversation. Critical Care Time (minutes): 0 Physical Exam 2 Vital Signs: Vital Signs: Last Vital Signs Temp 99.1 F 09/07/23 15:01 Pulse 108 H 09/07/23 15:01 Resp 20 09/07/23 15:01 BP 139/66 09/07/23 15:01 Pulse Ox 92 09/07/23 15:01 O2 Del Method Room Air 09/07/23 15:01 BMI result Body Mass Index 20.8 Gen appear: somnolent HEENT: Greenish discharge from both conjunctiva Abd: no wincing to palpation Objective Data Labs 09/03/23 05:10 09/06/23 05:10 Labs: Laboratory Results - last 24 hr 09/07/23 09/07/23 15:56 15:57 Total Bilirubin 0.2 Direct Bilirubin < 0.2 AST 136 H ALT 356 H Alkaline Phosphatase 105 Ammonia 21 Total Creatine Kinase 33 Total Protein 5.2 L Albumin 2.9 L Microbiology Microbiology Results: Microbiology 08/28/23 Unknown Urine Catheterized - Straight Catheter Urine Culture - Final Procedures Date of Service Date of Service: 09/07/23 Progress Note: A&P Assessment and plan (1) Odynophagia: Status: Acute (2) Dysphagia: Status: Acute Plan Unable to clinically assess pt's response to fluconazole given significant decline in mental/behavorial status. EGD initially planned for today which is also being deferred in favor of management of her psych illness which seems to have progressed significantly since pt was last seen on 09/04. Time Spent With Patient Time: Total time managing care of this patient today ____ minutes. Quality Stroke Does the patient have a stroke diagnosis?: No VTE Prior VTE?: No VTE Risk Level:: Medical - moderate - high VTE Device Contraindication: Treatment Not Indicated VTE Drug Contraindication: N/A - Med Ordered
[2023-09-07 19:57] VITALS: BP 141/71; PULSE 104; RESP 20; TEMP 36.6; O2SAT 94
[2023-09-07] MEDS: Propranolol HCL 20 MG TABLET PO (20:19)
[2023-09-07] MEDS: Cyproheptadine HCl 4 MG TABLET 2 MG PO (20:20)
[2023-09-07] MEDS: Ascorbic Acid 500 MG TABLET 2000 MG PO (20:20)
[2023-09-07] MEDS: Enoxaparin Sodium 40 MG/0.4 ML SYRINGE SUBCUT (20:20)
[2023-09-07] MEDS: LORazepam 1 MG TABLET PO (20:21)
[2023-09-07 23:44] VITALS: BP 161/69; PULSE 93; RESP 18; TEMP 36.3; O2SAT 90
--- NOTE | 2023-09-08 | EEG_ITS ---
FINDINGS: Awaking background activity consists of a moderate voltage diffuse beta of 18 to 20 hertz, superimposed on a background of low-voltage theta of 6 to 7 hertz, sometimes getting up to 8 hertz. Photic stimulation is without activation. Hyperventilation was omitted. IMPRESSION: This EEG is considered mildly abnormal due to mild background slowing. Excessive beta could be a medication effect. No paroxysmal discharges are seen, and there are no focal abnormalities. MD TILA Juan/JOSETTE / [phone]
--- NOTE | 2023-09-08 00:39 | PC.NURSE ---
0040, BLADDER SCAN AMOUNT =241ML, NO ST CATH NEEDED AT THIS TIME, MD ORDERS FOR ST CATHERIZATION > 400ML, WILL CONTINUE TO MONITOR. PT DENIES PAIN OR PRESSURE.
[2023-09-08 03:34] VITALS: BP 177/79; PULSE 99; RESP 18; TEMP 36.7; O2SAT 97
[2023-09-08] MEDS: Lactated Ringers 1,000 ML 100 ML IVCONT (05:58)
[2023-09-08 08:01] VITALS: BP 150/71; PULSE 92; RESP 20; TEMP 36.6; O2SAT 92
[2023-09-08] MEDS: Propranolol HCL 20 MG TABLET PO ×3 (08:04→21:30)
[2023-09-08] MEDS: Cyproheptadine HCl 4 MG TABLET 2 MG PO ×3 (08:04→21:30)
[2023-09-08] MEDS: Multivitamin TABLET 1 TAB PO (08:04)
[2023-09-08] MEDS: Fluconazole 100 MG TABLET PO (08:04)
[2023-09-08] MEDS: amLODIPine Besylate 10 MG TABLET PO (08:06)
--- NOTE | 2023-09-08 10:08 | MHC.SL.DTX ---
Dysphagia Diet modifications: Last documented Solid diet consistencies: Pureed (NDD1) Last documented Liquid consistency: Thin Last documented Medication Administration: Changes made to current diet?: Yes Liquid Consistency and Strategies: Liquid Intake Recommendation: Thin Compensatory Strategies for Safe Swallow: Small Sips Compensatory Strategies for Safe Swallow(b): Sitting Upright (90 deg) Double Swallow Small Bites and Sips Alternate Liquids/Solids Solid Food Consistency: Dietary Recommendations: Pureed (NDD1) Additional Modifications to Solids: Foods to be moistened in sauce/gravy Oral Medication Intake: Crushed with Puree Strategies and Precautions to be Taken for Safe Swallow: Sitting Upright (90 deg) Double Swallow Small Bites and Sips Alternate Liquids/Solids Supervision While Eating and/Drinking: Intermittent Supervision Foods to Avoid: Swallowing Recommended Treatments: Compens. Strategy Educat. Level of Impact on: Daily activities: Interpersonal interactions: Education: Employment: Community: Prognosis for Improvement: Recommendation for Speech: Speech Therapy through Rehab Facility Comment: DIRECTOR INSTRUMENTATION reviewed results with Pt and present. DIRECTOR INSTRUMENTATION recommended diet upgrade, however they are not ready at this time. If amenable I would recommend up to a Chopped/Advanced Solid (NDD3) and Thin Liquid diet. In the meantime, cues to alternate bites with sips may provide symptom relief. Results conferred to NEMO, RN, and MD. Frequency/Duration: Date Range for Service Req: Timeline to reassess: PRN Additional Comments: Brain MRI 09/01 w/ no acute infarct or other acute intracranial abnormality. MD also documented pt's tremor was back to baseline. Oral mech exam performed, generally weakness noted on all tasks with reduced ROM on lateral tongue movement. DIRECTOR INSTRUMENTATION recommended NDD1 d/t patient preference on 08/31, patient agreeable to upgrade to NDD2 on 09/01, downgraded to NDD1 d/t patient reported difficulty with NDD2. Treatment: Pt was catatonic yesterday. Today she is alert in bed and eating Puree Solids and Thin Liquids. This can go down . When asked if she would like bread or crackers, she declined, I can't eat that stuff . She passed her MBSS demonstrating ability swallow up to advanced solids with adequate oral and pharyngeal clearance. She declines further upgrade due to Pt preference. She is scheduled for EGD which she was not able to participate in yesterday and awaiting psych placement. No further DIRECTOR INSTRUMENTATION intervention required at this time. Pt is stable on her current diet and is taking Ensure supplements. Please re-refer if status changes, or Pt would prefer further upgrade. Assessment: Front Desk Team Member Clinican/Clinical Fellow: No Supervisory Statement: I have reviewed and agree with the student/clinical fellow's documentation: N/A Speech Language Pathologist: Abelardo Stevens M.A., CCC-DIRECTOR INSTRUMENTATION
--- NOTE | 2023-09-08 11:14 | HO.PM.IMPN ---
Subjective Subjective Date of Service: 09/08/23 Interval History: Patient is more awake and alert today, answering question apropriately Physical Exam Vital Signs: Vital Signs: Last Vital Signs Temp 97.8 F 09/08/23 08:01 Pulse 92 09/08/23 08:01 Resp 20 09/08/23 08:01 BP 150/71 H 09/08/23 08:01 Pulse Ox 92 09/08/23 08:01 O2 Del Method Room Air 09/08/23 08:01 BMI result Body Mass Index 20.8 Const: Other: General: oriented to self and place Resp: CTA bilateral CVS: S1,S2,RRR GI: +BS, NT, no distention Skin: No rash Neuro: motor grossly intact Psych: appropriate affect Objective Data Active Medications Amlodipine Besylate (Amlodipine Besylate 10 Mg Tablet) 10 mg PO DAILY [facility]; Protocol Last Admin: 09/08/23 08:06 Dose: 10 mg Documented By: RAMBO Ascorbic Acid (Ascorbic Acid 500 Mg Tablet) 2,000 mg PO BEDTIME [facility] Last Admin: 09/07/23 20:20 Dose: 2,000 mg Documented By: JANETT Cyproheptadine HCl (Cyproheptadine Hcl 4 Mg Tablet) 2 mg PO TID [facility] Last Admin: 09/08/23 08:04 Dose: 2 mg Documented By: RAMBO Enoxaparin Sodium (Enoxaparin Sodium 40 Mg/0.4 Ml Syringe) 40 mg SUBCUT Q24H [facility] Last Admin: 09/07/23 20:20 Dose: 40 mg Documented By: JANETT Fluconazole (Fluconazole 100 Mg Tablet) 100 mg PO DAILY [facility] Stop: 09/18/23 13:29 Last Admin: 09/08/23 08:04 Dose: 100 mg Documented By: RAMBO Fluticasone Propionate (Fluticasone Propionate Nasal 16 Gm [place]) 1 spray NOSTRIL-B BID [facility] Last Admin: 09/08/23 08:15 Dose: Not Given Documented By: RAMBO Non-Admin Reason: NG tube on nares Lactated Ringer's (Lr) 1,000 mls @ 100 mls/hr IVCONT .Q10H [facility] Last Infusion: 09/08/23 09:57 Dose: 0 mls/hr Documented By: RAMBO Lorazepam (Lorazepam 1 Mg Tablet) 1 mg PO BEDTIME [facility] Last Admin: 09/07/23 20:21 Dose: 1 mg Documented By: JANETT Melatonin (Melatonin 3 Mg Tablet) 6 mg PO BEDTIME PRN PRN Reason: Insomnia Last Admin: 09/04/23 20:09 Dose: 6 mg Documented By: KARMAORALB Multivitamins/Vitamin C (Multivitamin Tablet) 1 tab PO DAILY [facility] Last Admin: 09/08/23 08:04 Dose: 1 tab Documented By: RAMBO Omeprazole (Omeprazole 20 Mg Capsule.) 20 mg PO DAILY@0630 [facility] Last Admin: 09/08/23 05:57 Dose: Not Given Documented By: ABDELRAHMAN Non-Admin Reason: Patient Refused Propranolol HCl (Propranolol Hcl 20 Mg Tablet) 20 mg PO TID [facility]; Protocol Last Admin: 09/08/23 08:04 Dose: 20 mg Documented By: RAMBO Sodium Chloride (0.9 % Sodium Chloride Flush 3 Ml Syringe) 3 ml IVFLUSH QSHIFT [facility] Last Admin: 09/08/23 08:06 Dose: Not Given Documented By: RAMBO Non-Admin Reason: No Access Labs 09/03/23 05:10 09/06/23 05:10 Labs: Laboratory Results - last 24 hr 09/07/23 09/07/23 15:56 15:57 Total Bilirubin 0.2 Direct Bilirubin < 0.2 AST 136 H ALT 356 H Alkaline Phosphatase 105 Ammonia 21 Total Creatine Kinase 33 Total Protein 5.2 L Albumin 2.9 L Assessment and Plan (1) Odynophagia: Status: Acute (2) Abnormal EKG: Status: Acute Plan 72F PMH htn, adhd, anxiety, depression, presented with agitation, tremors, ataxia agitation and tremors, concern for seritonin syndrome intialy but seems to have resolved. She has been subsequently appear to be in catatonic state which was treated with Ativan and appears better now. Psych is being following her continue periactin, primidone, and Ativan PRN, on ce medically clear should be assess for inpatient geripsych dysphagia systems designer appreciated - due to patient preference diet changed to NDD1 s/p barium swallow 09/03 showing changes concerning for erosive esophagitis seen by GI, plan to treat with po fluconazole (Qtc checked and under 500) and tentative EGD scheduled sheduled for later MBSS with no overt signs of aspiration but pt does not want diet advanced EKG changes EKG obtained to assess Qtc, incidentally noted to have new twave inversions trop negative x 2 no chest pain seen by cardiology, echo not yet available hypOkalemia, corrected w/ supplement SOB saturation ok on room air, CXR negative, presently resolved. urinary retention, streaight cath PRN htn--controlled on proparanolol and Norvasc dvt prophlyaxis - lovenox code status - full code reason for continued hospitalization: dysphagia, electrolyte replacement/monitoring and awaiting Psych placement Time Spent With Patient Time: Total time managing care of this patient today ____ minutes. Quality Stroke Does the patient have a stroke diagnosis?: No VTE Prior VTE?: No VTE Risk Level:: Medical - moderate - high VTE Device Contraindication: Treatment Not Indicated VTE Drug Contraindication: N/A - Med Ordered
[2023-09-08 12:58] VITALS: BP 137/64; PULSE 94; RESP 20; TEMP 36.2; O2SAT 94
[2023-09-08 16:00] VITALS: BP 148/69; PULSE 94; RESP 20; TEMP 37.2; O2SAT 94
[2023-09-08 19:19] VITALS: BP 135/61; PULSE 83; RESP 15; TEMP 36.5; O2SAT 92
[2023-09-08] MEDS: Ascorbic Acid 500 MG TABLET 2000 MG PO (21:29)
[2023-09-08] MEDS: Enoxaparin Sodium 40 MG/0.4 ML SYRINGE SUBCUT (21:30)
[2023-09-08] MEDS: Fluticasone Propionate Nasal 16 GM SPRAY 1 SPRAY NOSTRIL-B (21:32)
--- NOTE | 2023-09-08 22:05 | PM.PSYCN ---
History of Present Illness Date of Service: 09/08/23 Chief Complaint: agitation Discussed with referring provider: Yes Sources of Information: patient interviewed HPI Narrative: Patient had shown clear response consistent with catatonia seems to be more withdrawn case reviewed with Dr. Lopez by and with . Discussed options of potential for physical rehab versus psychiatric admission. Haldol discontinued which was at only 0.25 b.i.d. continue lorazepam try to change to p.o. monitor response trying to avoid over sedation and fall risk maintain hydration patient quite physically deconditioned Past Psychiatric History: -Pt sees Dr. Shearer in OP setting recent hospitalization at the [place] [facility] Has had often on relapses over the past year and half -Remote hx of IPLOC 12 yrs ago, recent admissions at [facility] since 2020 with at least 4 admissions in the last 2 years Medical Evaluation Reviewed: Yes [facility] Medical History Depression Hypothyroidism ZAC (generalized anxiety disorder) Hypertension ADHD (attention deficit hyperactivity disorder) Surgical History H/O thumb surgery H/O cone biopsy of cervix Family History: Bipolar disorder Social History: The patient is 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 she does occasionally smoke marijuana Trauma History: NA Diagnostics Vital Signs (24Hr): Vital Signs - 24 hr 09/07/23 23:44 09/08/23 03:34 09/08/23 08:01 Temperature 97.4 F 98.1 F 97.8 F Pulse Rate 93 99 92 Respiratory Rate 18 18 20 Blood Pressure 161/69 H 177/79 H 150/71 H Pulse Oximetry 90 L 97 92 Oxygen Delivery Method Room Air Room Air Room Air 09/08/23 12:58 09/08/23 16:00 09/08/23 19:19 Temperature 97.2 F 98.9 F 97.7 F Pulse Rate 94 94 83 Respiratory Rate 20 20 15 Blood Pressure 137/64 148/69 H 135/61 Pulse Oximetry 94 94 92 Oxygen Delivery Method Room Air Room Air Room Air BMI result Body Mass Index 20.8 Labs 09/03/23 05:10 09/06/23 05:10 Labs: Laboratory Results - last 48 hr 09/07/23 09/07/23 15:56 15:57 Total Bilirubin 0.2 Direct Bilirubin < 0.2 AST 136 H ALT 356 H Alkaline Phosphatase 105 Ammonia 21 Total Creatine Kinase 33 Total Protein 5.2 L Albumin 2.9 L Imaging Radiology Impressions: ITS Impressions Brain MRI 09/01/23 12:35 IMPRESSION: 1. No acute infarct or other acute intracranial abnormality 2. Moderate chronic microangiopathy Chest X-Ray 09/02/23 10:20 IMPRESSION: Unremarkable examination. Barium Swallow X-Ray 09/03/23 13:56 IMPRESSION: Somewhat limited exam as discussed. 1) Small amount of subglottic aspiration of thick barium noted on first swallow. 2) Irregular mucosal pattern of the superior esophagus suggestive of erosive esophagitis. Given preference of the superior one third of the esophagus, Ann esophagitis (thrush) should be strongly considered. Direct visualization with endoscopy is recommended. Would also recommend direct visualization of the posterior oropharynx to assess for classic plaques of Ann. 3) Marked esophageal dysmotility. Small type I hiatus hernia. Cannot well assess for reflux. 4. Somewhat delayed opening of the LES, suggesting a mild component of achalasia. This procedures performed by French Wheeler PA-C, and supervised by Dr. Webster. The care team was made aware of the findings by French Wheeler PA-C. Modified Barium Swallow 09/04/23 14:25 IMPRESSION: Unremarkable modified barium swallow. Correlate with speech therapy report. Mental Status Exam Mental Status Exam Narrative: Patient seen sitting in chair seems more withdrawn and internally preoccupied less spontaneous poverty of content slowed meditate mentation no hallucinations or delusional material flat dysphoric Medications Medications Current Medications Amlodipine Besylate (Amlodipine Besylate 10 Mg Tablet) 10 mg PO DAILY [facility]; Protocol Last Admin: 09/08/23 08:06 Dose: 10 mg Ascorbic Acid (Ascorbic Acid 500 Mg Tablet) 2,000 mg PO BEDTIME [facility] Last Admin: 09/08/23 21:29 Dose: 2,000 mg Cyproheptadine HCl (Cyproheptadine Hcl 4 Mg Tablet) 2 mg PO TID [facility] Last Admin: 09/08/23 21:30 Dose: 2 mg Enoxaparin Sodium (Enoxaparin Sodium 40 Mg/0.4 Ml Syringe) 40 mg SUBCUT Q24H [facility] Last Admin: 09/08/23 21:30 Dose: 40 mg Fluconazole (Fluconazole 100 Mg Tablet) 100 mg PO DAILY [facility] Stop: 09/18/23 13:29 Last Admin: 09/08/23 08:04 Dose: 100 mg Fluticasone Propionate (Fluticasone Propionate Nasal 16 Gm [place]) 1 spray NOSTRIL-B BID [facility] Last Admin: 09/08/23 21:32 Dose: 1 spray Melatonin (Melatonin 3 Mg Tablet) 6 mg PO BEDTIME PRN PRN Reason: Insomnia Last Admin: 09/04/23 20:09 Dose: 6 mg Multivitamins/Vitamin C (Multivitamin Tablet) 1 tab PO DAILY [facility] Last Admin: 09/08/23 08:04 Dose: 1 tab Omeprazole (Omeprazole 20 Mg Capsule.Dr) 20 mg PO DAILY@0630 [facility] Last Admin: 09/08/23 05:57 Dose: Not Given Propranolol HCl (Propranolol Hcl 20 Mg Tablet) 20 mg PO TID [facility]; Protocol Last Admin: 09/08/23 21:30 Dose: 20 mg Sodium Chloride (0.9 % Sodium Chloride Flush 3 Ml Syringe) 3 ml IVFLUSH QSHIFT [facility] Last Admin: 09/08/23 16:29 Dose: Not Given Allergies Allergies Allergy/AdvReac Type Severity Reaction Status Date / Time No Known Allergies Allergy Verified 08/27/23 10:27 Assessment & Plan Assessment & Plan (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 Continue lorazepam Periactin trying to figure out discharge plan between psychiatric unit and rehab setting Case reviewed extensively with Dr. Jj patient seen on multiple occasions Total time managing care of this patient today ____ minutes. Patient educated on: diagnosis and medical condition Guardian/Caregiver educated on: diagnosis and medical condition
[2023-09-08] MEDS: LORazepam 1 MG TABLET PO (22:19)
[2023-09-08 23:08] VITALS: BP 139/67; PULSE 91; RESP 18; TEMP 36.4; O2SAT 96
[2023-09-08] MEDS: 0.9 % Sodium Chloride Flush 3 ML SYRINGE IVFLUSH (23:52)
[2023-09-09] VITALS (8 sets, daily range): BP systolic 117–154; BP diastolic 65–78; PULSE 74–93; RESP 17–20; TEMP 36.1–36.8; O2SAT 91–97
--- NOTE | 2023-09-09 08:34 | HO.PM.IMPN ---
Subjective Subjective Date of Service: 09/10/23 Interval History: She is awake this morning, c/o thirst, I agave her some water Physical Exam Vital Signs: Vital Signs: Last Vital Signs Temp 97 F 09/09/23 06:53 Pulse 92 09/09/23 06:53 Resp 18 09/09/23 06:53 BP 154/72 H 09/09/23 06:53 Pulse Ox 91 L 09/09/23 06:53 O2 Del Method Room Air 09/09/23 06:53 O2 Flow Rate 96 09/08/23 23:08 BMI result Body Mass Index 20.8 Const: Other: General: oriented to self and place Resp: CTA bilateral CVS: S1,S2,RRR GI: +BS, NT, no distention Skin: No rash Neuro: motor grossly intact Psych: appropriate affect Objective Data Active Medications Amlodipine Besylate (Amlodipine Besylate 10 Mg Tablet) 10 mg PO DAILY [facility]; Protocol Last Admin: 09/08/23 08:06 Dose: 10 mg Documented By: RAMBO Ascorbic Acid (Ascorbic Acid 500 Mg Tablet) 2,000 mg PO BEDTIME [facility] Last Admin: 09/08/23 21:29 Dose: 2,000 mg Documented By: KASANDRA Cyproheptadine HCl (Cyproheptadine Hcl 4 Mg Tablet) 2 mg PO TID [facility] Last Admin: 09/08/23 21:30 Dose: 2 mg Documented By: KASANDRA Enoxaparin Sodium (Enoxaparin Sodium 40 Mg/0.4 Ml Syringe) 40 mg SUBCUT Q24H [facility] Last Admin: 09/08/23 21:30 Dose: 40 mg Documented By: KASANDRA Fluconazole (Fluconazole 100 Mg Tablet) 100 mg PO DAILY [facility] Stop: 09/18/23 13:29 Last Admin: 09/08/23 08:04 Dose: 100 mg Documented By: RAMBO Fluticasone Propionate (Fluticasone Propionate Nasal 16 Gm [place]) 1 spray NOSTRIL-B BID [facility] Last Admin: 09/08/23 21:32 Dose: 1 spray Documented By: KASANDRA Lorazepam (Lorazepam 1 Mg Tablet) 1 mg PO TID [facility] Last Admin: 09/08/23 22:19 Dose: 1 mg Documented By: KASANDRA Melatonin (Melatonin 3 Mg Tablet) 6 mg PO BEDTIME PRN PRN Reason: Insomnia Last Admin: 09/04/23 20:09 Dose: 6 mg Documented By: LACEY Multivitamins/Vitamin C (Multivitamin Tablet) 1 tab PO DAILY [facility] Last Admin: 09/08/23 08:04 Dose: 1 tab Documented By: RAMBO Omeprazole (Omeprazole 20 Mg Capsule.) 20 mg PO DAILY@0630 [facility] Last Admin: 09/09/23 05:53 Dose: Not Given Documented By: ABDELRAHMAN Non-Admin Reason: Patient Refused Propranolol HCl (Propranolol Hcl 20 Mg Tablet) 20 mg PO TID [facility]; Protocol Last Admin: 09/08/23 21:30 Dose: 20 mg Documented By: TUMASY Sodium Chloride (0.9 % Sodium Chloride Flush 3 Ml Syringe) 3 ml IVFLUSH QSHIFT [facility] Last Admin: 09/08/23 23:52 Dose: 3 ml Documented By: ABDELRAHMAN Labs 09/03/23 05:10 09/06/23 05:10 Assessment and Plan (1) Odynophagia: Status: Acute (2) Abnormal EKG: Status: Acute Plan 72F PMH htn, adhd, anxiety, depression, presented with agitation, tremors, ataxia agitation and tremors, concern for seritonin syndrome intialy but seems to have resolved. She has been subsequently appear to be in catatonic state which is being treated with Ativan with help Psych, continue periactin, primidone, and Ativan PRN, on ce medically clear should be assess for inpatient geripsych. continue ativan dysphagia speech recommends NND1 + thin liquid GI to reschedule EGD EKG changes EKG obtained to assess Qtc, incidentally noted to have new twave inversions trop negative x 2 no chest pain seen by cardiology, echo not yet available hypOkalemia, corrected w/ supplement SOB saturation ok on room air, CXR negative, presently resolved. urinary retention, streaight cath PRN Elevated LFTs, etiology unclear ? meds, trending down htn--controlled on proparanolol and Norvasc dvt prophlyaxis - lovenox code status - full code PT is recommending short term rehab reason for continued hospitalization: dysphagia, electrolyte replacement/monitoring and awaiting Psych placement Time Spent With Patient Time: Total time managing care of this patient today ____ minutes. Quality Stroke Does the patient have a stroke diagnosis?: No VTE Prior VTE?: No VTE Risk Level:: Medical - moderate - high VTE Device Contraindication: Treatment Not Indicated VTE Drug Contraindication: N/A - Med Ordered
[2023-09-09] MEDS: Propranolol HCL 20 MG TABLET PO ×3 (09:00→22:10)
[2023-09-09] MEDS: Cyproheptadine HCl 4 MG TABLET 2 MG PO ×3 (09:00→22:10)
[2023-09-09] MEDS: Omeprazole 20 MG CAPSULE.DR PO (09:00)
[2023-09-09] MEDS: amLODIPine Besylate 10 MG TABLET PO (09:01)
[2023-09-09] MEDS: Multivitamin TABLET 1 TAB PO (09:01)
[2023-09-09] MEDS: 0.9 % Sodium Chloride Flush 3 ML SYRINGE IVFLUSH ×2 (09:01→15:07)
[2023-09-09] MEDS: Fluconazole 100 MG TABLET PO (09:01)
[2023-09-09] MEDS: LORazepam 1 MG TABLET PO ×2 (09:01→22:10)
[2023-09-09] MEDS: Fluticasone Propionate Nasal 16 GM SPRAY 1 SPRAY NOSTRIL-B ×2 (09:04→22:12)
--- NOTE | 2023-09-09 14:00 | MHC.CM.PN ---
per dc plan remains rehab
[2023-09-09] MEDS: LORazepam 2 MG/ML VIAL 1 MG IVPUSH ×2 (14:01→17:25)
--- NOTE | 2023-09-09 17:07 | PC.NURSE ---
Sat 92% on RA,dose of IV Lorazepam is ordered for catatonia,Dr. Jj notifed ,questioned need for Oxygen
--- NOTE | 2023-09-09 19:02 | PC.NURSE ---
Patient woke up,alert and oriented to name and place,had cranberry juice
[2023-09-09] MEDS: Enoxaparin Sodium 40 MG/0.4 ML SYRINGE SUBCUT (22:11)
[2023-09-09] MEDS: Ascorbic Acid 500 MG TABLET 2000 MG PO (22:11)
--- NOTE | 2023-09-09 22:45 | PC.NURSE ---
Patient voided this shift 400 ml ,bladder scanned at 2245 for 302 ml,will monitor
[2023-09-10] MEDS: 0.9 % Sodium Chloride Flush 3 ML SYRINGE IVFLUSH ×4 (01:14→23:42)
[2023-09-10 04:00] VITALS: BP 129/67; PULSE 84; RESP 17; TEMP 36.7; O2SAT 93
--- NOTE | 2023-09-10 05:21 | MHC.EVENTN ---
Patient incontinent of large amount of urine at 0500; cleansed and skin care provided, repositioned. pt offers no complaints of pain or discomforts, quiet and only responding softly with one word or a nod. Bladder scan revealed 306ml shortly after, bed [place] and commode offered and pt declined. stated no to bladder pressure and will continue to monitor. orders st cath >400ml.
[2023-09-10 06:53] VITALS: BP 130/64; PULSE 85; RESP 17; TEMP 36.6; O2SAT 98
[2023-09-10] MEDS: Cyproheptadine HCl 4 MG TABLET 2 MG PO ×3 (08:26→20:14)
[2023-09-10] MEDS: Omeprazole 20 MG CAPSULE.DR PO (08:26)
[2023-09-10] MEDS: Propranolol HCL 20 MG TABLET PO ×3 (08:27→20:14)
[2023-09-10] MEDS: Multivitamin TABLET 1 TAB PO (08:27)
[2023-09-10] MEDS: amLODIPine Besylate 10 MG TABLET PO (08:27)
[2023-09-10] MEDS: LORazepam 1 MG TABLET PO (08:28)
[2023-09-10] MEDS: Fluconazole 100 MG TABLET PO (08:28)
[2023-09-10] MEDS: Fluticasone Propionate Nasal 16 GM SPRAY 1 SPRAY NOSTRIL-B ×2 (08:28→20:15)
[2023-09-10 09:59] LABS: Alanine Aminotransferase 244 U/L (0-31); Alkaline Phosphatase 122 U/L (39-117); Anion Gap 12 (12-20); Aspartate Amino Transferase 101 U/L (5-31); Bilirubin Direct < 0.2 mg/dL (0.0-0.5); Bilirubin Total 0.2 mg/dL (0.0-1.0); Blood Urea Nitrogen 14 mg/dL (9-16); Calcium 9.5 mg/dL (8.4-10.2); Carbon Dioxide 26 mmol/L (22-29); Chloride 105 mmol/L (96-108); Creatinine Clr Calc Pharmacy 55.6; Estimated Glomerular Filt Rate > 60; Glucose Random 139 mg/dL (60-115); Potassium 3.9 mmol/L (3.3-5.1); Sodium 139 mmol/L (135-145); Total Protein 5.6 g/dL (6.5-8.0)
--- NOTE | 2023-09-10 13:01 | P.CNPS_ITS ---
History of Present Illness Date of Service: 09/10/23 Chief Complaint: agitation Sources of Information: patient interviewed HPI Narrative: Patient seen this morning with her . She was awake and eating but flat dysphoric slowed mentation. The patient is somewhat hopeless helpless despondent and appears to grossly fluctuated in her energy level. Was given to test doses of intravenous lorazepam and did not seem energized but seem more lethargic EEG reviewed which showed some slowing no seizure activity Patient walking for limited distances with assistintermittent straight catheterization Past Psychiatric History: -Pt sees Dr. Shearer in OP setting recent hospitalization at the [facility] Has had often on relapses over the past year and half -Remote hx of IPLOC 12 yrs ago, recent admissions at [facility] since 2020 with at least 4 admissions in the last 2 years Case reviewed with hospitalist service Personal & Social History: Patient and has 1 son with bipolar disorder [facility] Medical History Depression Hypothyroidism ZAC (generalized anxiety disorder) Hypertension ADHD (attention deficit hyperactivity disorder) Surgical History H/O thumb surgery H/O cone biopsy of cervix Family History: Bipolar disorder Social History: 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1 F 98 F Pulse Rate 84 85 Respiratory Rate 17 17 Blood Pressure 129/67 130/64 Pulse Oximetry 93 98 Oxygen Delivery Method Room Air Room Air BMI result Body Mass Index 20.8 Labs 09/03/23 05:10 09/10/23 09:01 Labs: Laboratory Results - last 48 hr 09/10/23 09:01 Sodium 139 Potassium 3.9 Chloride 105 Carbon Dioxide 26 Anion Gap 12 BUN 14 Creatinine 0.68 Estim Creat Clear Calc 55.6 Estimated GFR > 60 Random Glucose 139 H Calcium 9.5 Total Bilirubin 0.2 Direct Bilirubin < 0.2 AST 101 H ALT 244 H Alkaline Phosphatase 122 H Total Protein 5.6 L Albumin 3.0 L Imaging Radiology Impressions: ITS Impressions Brain MRI 09/01/23 12:35 IMPRESSION: 1. No acute infarct or other acute intracranial abnormality 2. Moderate chronic microangiopathy Chest X-Ray 09/02/23 10:20 IMPRESSION: Unremarkable examination. Barium Swallow X-Ray 09/03/23 13:56 IMPRESSION: Somewhat limited exam as discussed. 1) Small amount of subglottic aspiration of thick barium noted on first swallow. 2) Irregular mucosal pattern of the superior esophagus suggestive of erosive esophagitis. Given preference of the superior one third of the esophagus, Ann esophagitis (thrush) should be strongly considered. Direct visualization with endoscopy is recommended. Would also recommend direct visualization of the posterior oropharynx to assess for classic plaques of Ann. 3) Marked esophageal dysmotility. Small type I hiatus hernia. Cannot well assess for reflux. 4. Somewhat delayed opening of the LES, suggesting a mild component of achalasia. This procedures performed by French Wheeler PA-C, and supervised by Dr. Webster. The care team was made aware of the findings by French Wheeler PA-C. Modified Barium Swallow 09/04/23 14:25 IMPRESSION: Unremarkable modified barium swallow. Correlate with speech therapy report. Chest X-Ray 09/07/23 18:32 IMPRESSION: NGT tip project in left upper quadrant of abdomen with sideport at or just below expected level of GE junction. Left basilar opacity may represent atelectasis and/or pneumonia. Mental Status Exam Mental Status Exam Narrative: Patient seen sitting chair wearing hospital garb not overly tremulous when seen or rigid. She looks said and voices soft and hoarse difficulty with articulation. Her mood is depressed she does describe hopelessness helplessness who also describes paranoia and that somehow staff is doing something against her shoe she is fearful that she will not get out of this Medications Medications Current Medications Amlodipine Besylate (Amlodipine Besylate 10 Mg Tablet) 10 mg PO DAILY [facility]; Protocol Last Admin: 09/10/23 08:27 Dose: 10 mg Ascorbic Acid (Ascorbic Acid 500 Mg Tablet) 2,000 mg PO BEDTIME [facility] Last Admin: 09/09/23 22:11 Dose: 2,000 mg Cyproheptadine HCl (Cyproheptadine Hcl 4 Mg Tablet) 2 mg PO TID [facility] Last Admin: 09/10/23 08:26 Dose: 2 mg Enoxaparin Sodium (Enoxaparin Sodium 40 Mg/0.4 Ml Syringe) 40 mg SUBCUT Q24H [facility] Last Admin: 09/09/23 22:11 Dose: 40 mg Fluconazole (Fluconazole 100 Mg Tablet) 100 mg PO DAILY [facility] Stop: 09/18/23 13:29 Last Admin: 09/10/23 08:28 Dose: 100 mg Fluticasone Propionate (Fluticasone Propionate Nasal 16 Gm [place]) 1 spray NOSTRIL-B BID [facility] Last Admin: 09/10/23 08:28 Dose: 1 spray Lorazepam (Lorazepam 2 Mg/Ml Vial) 1 mg IVPUSH ONCE ONE Stop: 09/10/23 13:00 Melatonin (Melatonin 3 Mg Tablet) 6 mg PO BEDTIME PRN PRN Reason: Insomnia Last Admin: 09/04/23 20:09 Dose: 6 mg Multivitamins/Vitamin C (Multivitamin Tablet) 1 tab PO DAILY [facility] Last Admin: 09/10/23 08:27 Dose: 1 tab Omeprazole (Omeprazole 20 Mg Capsule.Dr) 20 mg PO DAILY@0630 [facility] Last Admin: 09/10/23 08:26 Dose: 20 mg Propranolol HCl (Propranolol Hcl 20 Mg Tablet) 20 mg PO TID [facility]; Protocol Last Admin: 09/10/23 08:27 Dose: 20 mg Sodium Chloride (0.9 % Sodium Chloride Flush 3 Ml Syringe) 3 ml IVFLUSH QSHIFT [facility] Last Admin: 09/10/23 08:52 Dose: 3 ml Allergies Allergies Allergy/AdvReac Type Severity Reaction Status Date / Time No Known Allergies Allergy Verified 08/27/23 10:27 Assessment & Plan Assessment & Plan (1) Depression, major, severe recurrence: Status: Acute Code(s): F33.2 - Major depressive disorder, recurrent severe without psychotic features (2) Odynophagia: Status: Acute Code(s): R13.10 - Dysphagia, unspecified (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 consider start Effexor 37.5 mg vs low-dose Wellbutrin Will recheck CBC patient complicated well require treatment for significant depression and rehabilitation Have asked dr alvarez to see the pt Total time managing care of this patient today ____ minutes. Guardian/Caregiver educated on: diagnosis and medical condition Informed Consent: further education needed
[2023-09-10 13:36] VITALS: BP 122/67; PULSE 72; RESP 16; TEMP 36.6; O2SAT 98
[2023-09-10] MEDS: LORazepam 2 MG/ML VIAL 1 MG IVPUSH (13:42)
[2023-09-10 16:00] VITALS: BP 124/86; PULSE 91; RESP 18; TEMP 36.4; O2SAT 95
[2023-09-10 20:00] VITALS: BP 134/86; PULSE 89; RESP 18; TEMP 36.2; O2SAT 93
[2023-09-10] MEDS: Enoxaparin Sodium 40 MG/0.4 ML SYRINGE SUBCUT (20:13)
[2023-09-10] MEDS: Ascorbic Acid 500 MG TABLET 2000 MG PO (20:15)
--- NOTE | 2023-09-10 20:58 | PC.NURSE ---
OOB to commode ,unable to urinate,bladder scanned for 540 ml,str cath at 2100 for 500 ml
[2023-09-10 23:36] VITALS: BP 133/74; PULSE 88; RESP 18; TEMP 36.4; O2SAT 94
[2023-09-11 03:29] VITALS: BP 130/64; PULSE 90; RESP 18; TEMP 36.7; O2SAT 91
--- NOTE | 2023-09-11 04:21 | PC.NURSE ---
0350, PATIENT CONTINUES TO REST WELL WITH NO S/SX RESP DISTRESS, NO STATED PAIN, CARDIAC RHYTHM SR, VSS. PT DECLINED OOB TO COMMODE OR BEDPAN USE, BLADDER SCANNED ORDERED AND RESULTS 293ML. NO ST CATHERIZATION AT THIS TIME PER MD PARAMETERS, WILL CONTINUE TO MONITOR.
[2023-09-11 07:01] VITALS: BP 131/74; PULSE 89; RESP 16; TEMP 36.4; O2SAT 91
[2023-09-11] MEDS: Multivitamin TABLET 1 TAB PO (07:46)
[2023-09-11] MEDS: Propranolol HCL 20 MG TABLET PO (07:46)
[2023-09-11] MEDS: amLODIPine Besylate 10 MG TABLET PO (07:46)
[2023-09-11] MEDS: Fluticasone Propionate Nasal 16 GM SPRAY 1 SPRAY NOSTRIL-B ×2 (07:47→20:43)
[2023-09-11] MEDS: 0.9 % Sodium Chloride Flush 3 ML SYRINGE IVFLUSH ×2 (07:47→20:42)
[2023-09-11] MEDS: Fluconazole 100 MG TABLET PO (07:47)
--- NOTE | 2023-09-11 08:59 | P.PNIM_ITS ---
Subjective Subjective Date of Service: 09/11/23 Interval History: Her state continues to be very labile, Awake and sleeping and not specific corelation with Ativan She just seems very depressed right now, teary and sometimes stating I am sick and i am dying Physical Exam 2 Vital Signs: Vital Signs: Last Vital Signs Temp 97.6 F 09/11/23 07:01 Pulse 89 09/11/23 07:01 Resp 16 09/11/23 07:01 BP 131/74 09/11/23 07:01 Pulse Ox 91 L 09/11/23 07:01 O2 Del Method Room Air 09/11/23 07:01 O2 Flow Rate 96 09/08/23 23:08 BMI result Body Mass Index 20.8 Const: Other: General: awake and alert, stoic not saying much, very low voice Resp: CTA bilateral CVS: S1,S2,RRR GI: +BS, NT, no distention Skin: No rash Neuro: motor grossly intact Psych: appropriate affect Objective Data Active Medications Amlodipine Besylate (Amlodipine Besylate 10 Mg Tablet) 10 mg PO DAILY [facility]; Protocol Last Admin: 09/11/23 07:46 Dose: 10 mg Documented By: YENNY Ascorbic Acid (Ascorbic Acid 500 Mg Tablet) 2,000 mg PO BEDTIME [facility] Last Admin: 09/10/23 20:15 Dose: 2,000 mg Documented By: ANDREA Enoxaparin Sodium (Enoxaparin Sodium 40 Mg/0.4 Ml Syringe) 40 mg SUBCUT Q24H [facility] Last Admin: 09/10/23 20:13 Dose: 40 mg Documented By: ANDREA Fluconazole (Fluconazole 100 Mg Tablet) 100 mg PO DAILY [facility] Stop: 09/18/23 13:29 Last Admin: 09/11/23 07:47 Dose: 100 mg Documented By: YENNY Fluticasone Propionate (Fluticasone Propionate Nasal 16 Gm [place]) 1 spray NOSTRIL-B BID [facility] Last Admin: 09/11/23 07:47 Dose: 1 spray Documented By: YENNY Melatonin (Melatonin 3 Mg Tablet) 6 mg PO BEDTIME PRN PRN Reason: Insomnia Last Admin: 09/04/23 20:09 Dose: 6 mg Documented By: LACEY Multivitamins/Vitamin C (Multivitamin Tablet) 1 tab PO DAILY [facility] Last Admin: 09/11/23 07:46 Dose: 1 tab Documented By: YENNY Omeprazole (Omeprazole 20 Mg Capsule.) 20 mg PO DAILY@0630 [facility] Last Admin: 09/10/23 08:26 Dose: 20 mg Documented By: YENNY Propranolol HCl (Propranolol Hcl 20 Mg Tablet) 20 mg PO TID [facility]; Protocol Last Admin: 09/11/23 07:46 Dose: 20 mg Documented By: YENNY Sodium Chloride (0.9 % Sodium Chloride Flush 3 Ml Syringe) 3 ml IVFLUSH QSHIFT [facility] Last Admin: 09/11/23 07:47 Dose: 3 ml Documented By: YENNY Labs 09/03/23 05:10 09/10/23 09:01 Labs: Laboratory Results - last 24 hr 09/10/23 09:01 Anion Gap 12 Estim Creat Clear Calc 55.6 Estimated GFR > 60 Random Glucose 139 H Calcium 9.5 Total Bilirubin 0.2 Direct Bilirubin < 0.2 AST 101 H ALT 244 H Alkaline Phosphatase 122 H Total Protein 5.6 L Albumin 3.0 L Assessment and Plan (1) Odynophagia: Status: Acute (2) Abnormal EKG: Status: Acute Plan 72F PMH htn, adhd, anxiety, depression, presented with agitation, tremors, ataxia agitation and tremors, initial concern for seritonin syndrome, has resolved. Periods of unresponsivenesss not very characteristic of catatonia, with variable response to Ativan, in fact Ativan maybe causing over sedation at this point; i will discus it with Psych dysphagia speech recommends NND1 + thin liquid GI to reschedule EGD EKG changes EKG obtained to assess Qtc, incidentally noted to have new twave inversions trop negative x 2 no chest pain seen by cardiology, echo not yet available hypOkalemia, corrected w/ supplement SOB saturation ok on room air, CXR negative, presently resolved. urinary retention, streaight cath PRN Elevated LFTs, etiology unclear ? meds, trending down htn--controlled on proparanolol and Norvasc dvt prophlyaxis - lovenox code status - full code PT is recommending short term rehab reason for continued hospitalization: dysphagia, electrolyte replacement/monitoring and awaiting Psych placement Time Spent With Patient Time: Total time managing care of this patient today ____ minutes. Quality Stroke Does the patient have a stroke diagnosis?: No VTE Prior VTE?: No VTE Risk Level:: Medical - moderate - high VTE Device Contraindication: Treatment Not Indicated VTE Drug Contraindication: N/A - Med Ordered
[2023-09-11 09:14] LABS: MANUAL DIFF FLAG NO
[2023-09-11 09:20] LABS: Basophils Percent Auto 0.4 % (0-2); Eosinophils Absolute Auto 0.1 X10*3/uL (0.0-0.4); Eosinophils Percent Auto 1.9 % (0-4); Hematocrit 40.6 % (37.0-47.0); Hemoglobin 13.3 g/dl (12.0-16.0); Imm Gran Abs Auto 0.03 X10*3/uL (0.00-0.03); Imm Gran Pct Auto 0.4 % (0.0-0.4); Lymphocytes Absolute Auto 1.8 X10*3/uL (1.2-4.9); Lymphocytes Percent Auto 24.9 % (20-40); Mean Corpuscular HGB Conc 32.8 g/dl (31.0-35.0); Mean Corpuscular Hemoglobin 28.9 pg (27.0-33.0); Mean Corpuscular Volume 88.1 fL (80.0-98.0); Mean Platelet Volume 9.7 fL (9.4-12.3); Monocytes Absolute Auto 0.7 X10*3/uL (0.1-1.2); Neutrophils Absolute Auto 4.6 x10*3/uL (2.0-8.3); Neutrophils Percent Auto 62.4 % (45-73); Platelet Count 390 X10*3/uL (160-400); Red Blood Count 4.61 X10*6/uL (4.20-5.50); Red Cell Distribution Width 13.6 % (11.0-16.0); White Blood Count 7.3 X10*3/uL (4.8-10.8)
[2023-09-11 10:22] LABS: Folate 14.8 ng/mL (> or = 4.0); Vitamin B12 > 2000 pg/mL (200-900)
[2023-09-11 11:13] VITALS: BP 136/74; PULSE 98; RESP 17; TEMP 36.6; O2SAT 92
[2023-09-11] MEDS: Acetaminophen 325 MG TABLET 650 MG PO (13:14)
[2023-09-11 15:05] VITALS: BP 121/69; PULSE 85; RESP 18; TEMP 36.2; O2SAT 91
--- NOTE | 2023-09-11 15:24 | MHC.CM.PN ---
Pt not yet ready for DC, psych to be involved. CM to follow and assist with DC plan.
--- NOTE | 2023-09-11 15:56 | HO.HSGERICON ---
History of Present Illness Data of Consult Service Date: 09/11/23 Primary Care Provider: Tami Francis MD [facility] Reason for consult: Reassessment of mental status The patient is a 72-year-old female, very well known by this provider since she was been admitted into the hospital for exacerbation of depression, she carries a diagnosis of bipolar type 2 and personality disorder. She was initially admitted into the medical floor due to serotonergic syndrome and altered mental status. A few days ago, she presented with altered mental status and initially was suspected that she was having CAD a Shelly but she has never responded to IV Ativan. At this moment she is off Ativan. The present consult was requested to follow-up her mental status. The patient was assessed at bedside, the chart was review, the case was discussed with the regular medical team and her nurse reported some information. Apparently the patient had been hypoactive, awake and alert, aware that she is in the hospital, unable to perform her ADL less, she needs help with feeding and going to the bathroom. On interview, the patient was minimally engaged, I explained her that she was medically sick and she is getting better, her vital signs have been stable. She stated that she slept poorly and she does not have appetite. She adamantly denies psychotic symptoms at this moment. We discussed the case with Dr. Zaidi and I agree that she should not be on more benzodiazepine since it is unlikely that she had had catatonia, she never had an improvement of her mental status with IV push of Ativan.. The change in mental status is more on correlation with the delirium that she was coming off. At this moment, now that the patient is coming off serotonergic syndrome and washing out of Prozac and other antidepressants and neuroleptics, I do not advised to start any medications. We will reassess next Thursday for a possible transfer to the geriatric psychiatric unit. Review of Systems Review of Systems: Yes Unobtainable due to mental condition PMFSH Medical History Depression Hypothyroidism ZAC (generalized anxiety disorder) Hypertension ADHD (attention deficit hyperactivity disorder) Functional capacity: independent ambulation (With help) Family History Other No pertinent family history Surgical History H/O thumb surgery H/O cone biopsy of cervix Social History Household Members: Spouse Household Members Other:: And two cats. Housing: House Do you presently have visiting nurse or other home services: No Unable to assess alcohol history related to: Unknown Alcohol intake: never Patient Tobacco Use Status: Tobacco use Unknown Tobacco use type: Cigarette Smoked in Last 30 Days: No e-Cigarette/Vaping Use: Never Used Second Hand Smoke Exposure: No Use of substances other than those prescribed or required for medical reasons: No Substance Use Type: Marijuana Currently Displaying Signs/Symptoms of Drug Intoxication Withdrawal: No Advance Directives: No Advance Directives Information Provided: Yes Do you have thoughts of harming others: None Do you have a plan to hurt others: No Plan Recently lost weight without trying: Unsure Nutrition Risks: No Nutritional Risk Patient : No service: No Sexual orientation: Straight/Heterosexual Meds Allergies Allergy/AdvReac Type Severity Reaction Status Date / Time No Known Allergies Allergy Verified 08/27/23 10:27 Active Medications: Current Medications Acetaminophen (Acetaminophen 325 Mg Tablet) 650 mg PO Q4H PRN PRN Reason: Pain, Severe (Pain Scale 7-10) Last Admin: 09/11/23 13:14 Dose: 650 mg Amlodipine Besylate (Amlodipine Besylate 10 Mg Tablet) 10 mg PO DAILY [facility]; Protocol Last Admin: 09/11/23 07:46 Dose: 10 mg Ascorbic Acid (Ascorbic Acid 500 Mg Tablet) 2,000 mg PO BEDTIME [facility] Last Admin: 09/10/23 20:15 Dose: 2,000 mg Enoxaparin Sodium (Enoxaparin Sodium 40 Mg/0.4 Ml Syringe) 40 mg SUBCUT Q24H [facility] Last Admin: 09/10/23 20:13 Dose: 40 mg Fluconazole (Fluconazole 100 Mg Tablet) 100 mg PO DAILY [facility] Stop: 09/18/23 13:29 Last Admin: 09/11/23 07:47 Dose: 100 mg Fluticasone Propionate (Fluticasone Propionate Nasal 16 Gm [place]) 1 spray NOSTRIL-B BID [facility] Last Admin: 09/11/23 07:47 Dose: 1 spray Melatonin (Melatonin 3 Mg Tablet) 6 mg PO BEDTIME PRN PRN Reason: Insomnia Last Admin: 09/04/23 20:09 Dose: 6 mg Multivitamins/Vitamin C (Multivitamin Tablet) 1 tab PO DAILY [facility] Last Admin: 09/11/23 07:46 Dose: 1 tab Omeprazole (Omeprazole 20 Mg Capsule.Dr) 20 mg PO DAILY@0630 [facility] Last Admin: 09/10/23 08:26 Dose: 20 mg Propranolol HCl (Propranolol Hcl 20 Mg Tablet) 20 mg PO TID [facility]; Protocol Last Admin: 09/11/23 15:12 Dose: Not Given Sodium Chloride (0.9 % Sodium Chloride Flush 3 Ml Syringe) 3 ml IVFLUSH QSHIFT [facility] Last Admin: 09/11/23 07:47 Dose: 3 ml Home Medications Medication Instructions Recorded Confirmed Last Taken Type amlodipine 5 mg tablet 10 mg PO DAILY 10/23/22 08/27/23 10/23/22 History alprazolam 0.25 mg tablet 0.5 mg PO TID PRN anxiety 08/27/23 08/27/23 Unknown History esketamine 56 mg (28 mg x 2) nasal 84 mg intranasal TUTH 08/27/23 08/27/23 08/27/23 History spray ([place]) fluticasone propionate 50 1 spray intranasal BID 08/27/23 08/27/23 Unknown History mcg/actuation nasal spray,suspension propranolol 20 mg tablet 20 mg PO BID 08/27/23 08/27/23 Unknown History Results Labs 09/11/23 08:43 09/10/23 09:01 Labs: Laboratory Results - last 24 hr 09/11/23 09/11/23 08:43 08:44 MCV 88.1 MCH 28.9 MCHC 32.8 RDW 13.6 Plt Count 390 D MPV 9.7 Immature Gran % (Auto) 0.4 Neut % (Auto) 62.4 Lymph % (Auto) 24.9 [place] % (Auto) 10.0 Eos % (Auto) 1.9 Baso % (Auto) 0.4 Lymph # (Auto) 1.8 [place] # (Auto) 0.7 Eos # (Auto) 0.1 Baso # (Auto) 0.0 Abs Immat Gran (auto) 0.03 Absolute Neuts (auto) 4.6 Absolute Nucleated RBC 0.000 Nucleated RBC % (auto) 0.0 Vitamin B12 > 2000 H Folate 14.8 Assessment and Plan (1) Serotonin syndrome: Status: Acute (2) Bipolar II disorder: Status: Inactive (3) Personality disorder: Status: Acute Plan The patient is an elderly female with a past history of bipolar day 2, personality disorder NOS and other several medical comorbidities admitted initially for altered mental status in the context of serotonergic syndrome. The patient before being admitted, she had a short course of S provide of for depression and she become delirious. She developed serotonergic syndrome that needed inpatient level of care. She had a change in her mental status initially suspected of catatonic but it was clear that he was delirium clearing up. Plan 1. At this moment we do not advise to start any antidepressants or neuroleptics. 2. Continue discontinuation of lorazepam. 3. We will reassess the case early next week for transfer to the psychiatric unit. 4. Reassessment as demand Time Spent With Patient Time: Total time managing care of this patient today __30__ minutes. Physical Exam Vital Signs: Last Vital Signs Temp 97.1 F 09/11/23 15:05 Pulse 85 09/11/23 15:05 Resp 18 09/11/23 15:05 BP 121/69 09/11/23 15:05 Pulse Ox 91 L 09/11/23 15:05 O2 Del Method Room Air 09/11/23 15:05 O2 Flow Rate 96 09/08/23 23:08 BMI result Body Mass Index 20.8 Neuro Cranial nerves: Yes CN's II-XII intact bilaterally Psych Appearance: disheveled Speech and movement: Slowed speech present (Psych) Affect: Anxious affect present and Blunted affect present Attitude: Guarded attititude/behavior present and Avoids eye contact (attititude/behavior) Thought process: Impoverished thought process present Thought content: Ideas of reference present (thought content) (Poverty of content) Insight: Limited insight present (Psych) Judgement: Poor judgement present (Psych)
[2023-09-11 19:24] VITALS: BP 154/81; PULSE 100; RESP 18; TEMP 37.1; O2SAT 92
[2023-09-11] MEDS: Enoxaparin Sodium 40 MG/0.4 ML SYRINGE SUBCUT (20:42)
[2023-09-11 23:44] VITALS: BP 159/87; PULSE 106; RESP 19; TEMP 36.2; O2SAT 94
--- NOTE | 2023-09-12 00:49 | PC.NURSE ---
Pt oob to commode with 2 assist unable to void bladder scanned for 492ml st.cath for 400 ml cloudy yellow urine.DTV #1 at [id number].
[2023-09-12 03:22] VITALS: BP 152/82; PULSE 113; RESP 18; TEMP 36.3; O2SAT 93
[2023-09-12 07:23] VITALS: BP 144/83; PULSE 112; RESP 20; TEMP 36.4; O2SAT 93
--- NOTE | 2023-09-12 08:17 | HO.PM.IMPN ---
Subjective Subjective Date of Service: 09/12/23 Interval History: Awake but not interacting this morning Physical Exam Vital Signs: Vital Signs: Last Vital Signs Temp 97.6 F 09/12/23 07:23 Pulse 112 H 09/12/23 07:23 Resp 20 09/12/23 07:23 BP 144/83 H 09/12/23 07:23 Pulse Ox 93 09/12/23 07:23 O2 Del Method Room Air 09/12/23 07:23 O2 Flow Rate 96 09/08/23 23:08 BMI result Body Mass Index 20.8 Const: Other: General:awake, not interacting at all Resp: CTA bilateral CVS: S1,S2,RRR GI: +BS, NT, no distention Skin: No rash Neuro: motor grossly intact Psych: appropriate affect Objective Data Active Medications Acetaminophen (Acetaminophen 325 Mg Tablet) 650 mg PO Q4H PRN PRN Reason: Pain, Severe (Pain Scale 7-10) Last Admin: 09/11/23 13:14 Dose: 650 mg Documented By: YENNY Amlodipine Besylate (Amlodipine Besylate 10 Mg Tablet) 10 mg PO DAILY [facility]; Protocol Last Admin: 09/11/23 07:46 Dose: 10 mg Documented By: YENNY Ascorbic Acid (Ascorbic Acid 500 Mg Tablet) 2,000 mg PO BEDTIME [facility] Last Admin: 09/11/23 20:49 Dose: Not Given Documented By: SANJEEV Non-Admin Reason: Patient Refused Enoxaparin Sodium (Enoxaparin Sodium 40 Mg/0.4 Ml Syringe) 40 mg SUBCUT Q24H [facility] Last Admin: 09/11/23 20:42 Dose: 40 mg Documented By: SANJEEV Fluconazole (Fluconazole 100 Mg Tablet) 100 mg PO DAILY [facility] Stop: 09/18/23 13:29 Last Admin: 09/11/23 07:47 Dose: 100 mg Documented By: YENNY Fluticasone Propionate (Fluticasone Propionate Nasal 16 Gm [place]) 1 spray NOSTRIL-B BID [facility] Last Admin: 09/11/23 20:43 Dose: 1 spray Documented By: SANJEEV Melatonin (Melatonin 3 Mg Tablet) 6 mg PO BEDTIME PRN PRN Reason: Insomnia Last Admin: 09/04/23 20:09 Dose: 6 mg Documented By: LACEY Multivitamins/Vitamin C (Multivitamin Tablet) 1 tab PO DAILY [facility] Last Admin: 09/11/23 07:46 Dose: 1 tab Documented By: YENNY Omeprazole (Omeprazole 20 Mg Capsule.) 20 mg PO DAILY@0630 [facility] Last Admin: 09/12/23 05:49 Dose: Not Given Documented By: SANJEEV Non-Admin Reason: Patient Refused Propranolol HCl (Propranolol Hcl 20 Mg Tablet) 20 mg PO TID [facility]; Protocol Last Admin: 09/11/23 20:49 Dose: Not Given Documented By: SANJEEV Non-Admin Reason: Patient Refused Sodium Chloride (0.9 % Sodium Chloride Flush 3 Ml Syringe) 3 ml IVFLUSH QSHIFT [facility] Last Admin: 09/11/23 20:42 Dose: 3 ml Documented By: SANJEEV Labs 09/11/23 08:43 09/10/23 09:01 Labs: Laboratory Results - last 24 hr 09/11/23 09/11/23 08:43 08:44 MCV 88.1 MCH 28.9 MCHC 32.8 RDW 13.6 Plt Count 390 D MPV 9.7 Immature Gran % (Auto) 0.4 Neut % (Auto) 62.4 Lymph % (Auto) 24.9 [place] % (Auto) 10.0 Eos % (Auto) 1.9 Baso % (Auto) 0.4 Lymph # (Auto) 1.8 [place] # (Auto) 0.7 Eos # (Auto) 0.1 Baso # (Auto) 0.0 Abs Immat Gran (auto) 0.03 Absolute Neuts (auto) 4.6 Absolute Nucleated RBC 0.000 Nucleated RBC % (auto) 0.0 Vitamin B12 > 2000 H Folate 14.8 Assessment and Plan (1) Odynophagia: Status: Acute (2) Abnormal EKG: Status: Acute Plan 72F PMH htn, adhd, anxiety, depression, presented with agitation, tremors, ataxia agitation and tremors, initial concern for seritonin syndrome, has resolved. Periods of unresponsivenesss not characteristic of catatonia, with variable response to Ativan, in fact Ativan maybe causing over sedation at this point; I rather think this is all a manifestation of depression. Psych to continue to advise dysphagia speech recommends NND1 + thin liquid GI to reschedule EGD when medically stable TWI noted on ECG to check for QTC, no other symptoms, trops negative x 2, seen by cardioloty Echo nl LVEF, no WMA. No further testing at this time hypOkalemia, corrected w/ supplement SOB saturation ok on room air, CXR negative, presently resolved. urinary retention, streaight cath PRN Elevated LFTs, etiology unclear ? meds, trending down htn--controlled on proparanolol and Norvasc dvt prophlyaxis - lovenox code status - full code PT is recommending short term rehab reason for continued hospitalization: dysphagia, electrolyte replacement/monitoring and awaiting Psych placement Time Spent With Patient Time: Total time managing care of this patient today ____ minutes. Quality Stroke Does the patient have a stroke diagnosis?: No VTE Prior VTE?: No VTE Risk Level:: Medical - moderate - high VTE Device Contraindication: Treatment Not Indicated VTE Drug Contraindication: N/A - Med Ordered
--- NOTE | 2023-09-12 08:43 | ECG_ITS ---
Test Reason : sustained tachycardia Blood Pressure : / mmHG Vent. Rate : 122 BPM Atrial Rate : 122 BPM P-R Int : 122 ms QRS Dur : 080 ms QT Int : 326 ms P-R-T Axes : 055 042 022 degrees QTc Int : 464 ms Poor data quality Sinus tachycardia RSR' or QR pattern in V1 suggests right ventricular conduction delay Nonspecific ST abnormality Abnormal ECG When compared with ECG of 05-SEP-2023 10:03, Vent. rate has increased BY 42 BPM Referred By: Jb Jj Electronically Signed By:LÓPEZ NARVAEZ MD
--- NOTE | 2023-09-12 10:45 | PC.NURSE ---
pt refusing all medications. Laying in bed with eyes closed, breathing even and unlabored. Refusing to respond. Dr. Jj aware
[2023-09-12 11:56] VITALS: BP 137/78; PULSE 116; RESP 20; TEMP 36.6; O2SAT 92
--- NOTE | 2023-09-12 13:00 | PC.NURSE ---
Pt retaining urine overnight. Bladder scanned at 0743 for 159. Rechecked at 1203, 250mL. Dr Jj made aware, per MD no straight cath until over 400mL.
[2023-09-12] MEDS: Lactated Ringers 1,000 ML 100 ML IVCONT ×2 (14:21→23:46)
[2023-09-12 15:06] VITALS: BP 140/80; PULSE 118; RESP 20; TEMP 36.6; O2SAT 94
[2023-09-12 19:20] VITALS: BP 134/85; PULSE 111; RESP 16; TEMP 36.1; O2SAT 92
[2023-09-12] MEDS: Enoxaparin Sodium 40 MG/0.4 ML SYRINGE SUBCUT (20:21)
[2023-09-12] MEDS: Fluticasone Propionate Nasal 16 GM SPRAY 1 SPRAY NOSTRIL-B (20:23)
[2023-09-12 23:46] VITALS: BP 120/65; PULSE 110; RESP 17; TEMP 36.6; O2SAT 95
--- NOTE | 2023-09-13 00:53 | PC.NURSE ---
Pt has not voided bladder scanned for 217 ml.
--- NOTE | 2023-09-13 02:14 | PC.NURSE ---
Heart rate running in the 120's notified.No new orders at this time.
[2023-09-13 02:40] VITALS: BP 130/75; PULSE 122; RESP 17; TEMP 36.1; O2SAT 95
--- NOTE | 2023-09-13 05:57 | PC.NURSE ---
Pt inc of large amt of urine bladder scanned for 263 ml.
[2023-09-13 07:23] VITALS: BP 146/76; PULSE 120; RESP 20; TEMP 36.8; O2SAT 89
--- NOTE | 2023-09-13 07:52 | P.PNIM_ITS ---
Subjective Subjective Date of Service: 09/13/23 Interval History: Patient remains unresponsive, tachycardia, O2 sat trending down Physical Exam 2 Vital Signs: Vital Signs: Last Vital Signs Temp 98.2 F 09/13/23 07:23 Pulse 120 H 09/13/23 07:23 Resp 20 09/13/23 07:23 BP 146/76 H 09/13/23 07:23 Pulse Ox 89 L 09/13/23 07:23 O2 Del Method Room Air 09/13/23 07:23 O2 Flow Rate 96 09/08/23 23:08 BMI result Body Mass Index 20.8 Const: Other: General:Not responding at all, won't open eye or follow any commands Resp: CTA bilateral CVS: S1,S2,RRR (tachcy) GI: +BS, NT, no distention Skin: No rash Neuro: motor grossly intact Psych: appropriate affect Objective Data Active Medications Acetaminophen (Acetaminophen 325 Mg Tablet) 650 mg PO Q4H PRN PRN Reason: Pain, Severe (Pain Scale 7-10) Last Admin: 09/11/23 13:14 Dose: 650 mg Documented By: YENNY Amlodipine Besylate (Amlodipine Besylate 10 Mg Tablet) 10 mg PO DAILY [facility]; Protocol Last Admin: 09/12/23 10:46 Dose: Not Given Documented By: DAGMAR Non-Admin Reason: Patient Refused Ascorbic Acid (Ascorbic Acid 500 Mg Tablet) 2,000 mg PO BEDTIME [facility] Last Admin: 09/12/23 20:23 Dose: Not Given Documented By: SANJEEV Non-Admin Reason: Patient Refused Enoxaparin Sodium (Enoxaparin Sodium 40 Mg/0.4 Ml Syringe) 40 mg SUBCUT Q24H [facility] Last Admin: 09/12/23 20:21 Dose: 40 mg Documented By: SANJEEV Fluconazole (Fluconazole 100 Mg Tablet) 100 mg PO DAILY [facility] Stop: 09/18/23 13:29 Last Admin: 09/12/23 10:46 Dose: Not Given Documented By: DAGMAR Non-Admin Reason: Patient Refused Fluticasone Propionate (Fluticasone Propionate Nasal 16 Gm [place]) 1 spray NOSTRIL-B BID [facility] Last Admin: 09/12/23 20:23 Dose: 1 spray Documented By: SANJEEV Lactated Ringer's (Lr) 1,000 mls @ 100 mls/hr IVCONT .Q10H [facility] Last Admin: 09/12/23 23:46 Dose: 100 mls/hr Documented By: SANJEEV Metoprolol Tartrate 2.5 mg/ (Sodium Chloride) 52.5 mls @ 210 mls/hr IV Q6H [facility] Melatonin (Melatonin 3 Mg Tablet) 6 mg PO BEDTIME PRN PRN Reason: Insomnia Last Admin: 09/04/23 20:09 Dose: 6 mg Documented By: KARMAORALB Multivitamins/Vitamin C (Multivitamin Tablet) 1 tab PO DAILY [facility] Last Admin: 09/12/23 10:46 Dose: Not Given Documented By: DAGMAR Non-Admin Reason: Patient Refused Omeprazole (Omeprazole 20 Mg Capsule.) 20 mg PO DAILY@0630 [facility] Last Admin: 09/13/23 05:26 Dose: Not Given Documented By: SANJEEV Non-Admin Reason: Patient Refused Propranolol HCl (Propranolol Hcl 20 Mg Tablet) 20 mg PO TID [facility]; Protocol Last Admin: 09/12/23 20:23 Dose: Not Given Documented By: SANJEEV Non-Admin Reason: Patient Refused Sodium Chloride (0.9 % Sodium Chloride Flush 3 Ml Syringe) 3 ml IVFLUSH QSHIFT [facility] Last Admin: 09/12/23 20:31 Dose: Not Given Documented By: SANJEEV Non-Admin Reason: IV Running Labs 09/11/23 08:43 09/10/23 09:01 Assessment and Plan (1) Odynophagia: Status: Acute (2) Abnormal EKG: Status: Acute Plan 72F PMH htn, adhd, anxiety, depression, presented with agitation, tremors, ataxia agitation and tremors, initial concern for seritonin syndrome but probably just delirium. Agitation resolved Periods of unresponsivenesss not characteristic of catatonia, with variable response to Ativan, in fact Ativan maybe causing over sedation at this point; I rather think this is all a manifestation of depression and likely delirium. Psych to continue to advise dysphagia speech recommends NND1 + thin liquid. Presently NPO as she won' take anything by mouth, so IVF hydration GI to reschedule EGD when medically stable TWI noted on ECG to check for QTC, no other symptoms, trops negative x 2, seen by cardioloty Echo nl LVEF, no WMA. No further testing at this time hypOkalemia, corrected w/ supplement, check labs today Decrease O2, no fever, CXR to further assess urinary retention, streaight cath PRN Elevated LFTs, etiology unclear ? meds, trending down htn--controlled on proparanolol and Norvasc, but presently not taking meds by mouth. Adding IV Metoprolol Tachycardia--d/t withdrawal from Propranolol, IV Metoprolol as above dvt prophlyaxis - lovenox code status - full code PT is recommending short term rehab reason for continued hospitalization: dysphagia, electrolyte replacement/monitoring and awaiting Psych placement Time Spent With Patient Time: Total time managing care of this patient today ____ minutes. Quality Stroke Does the patient have a stroke diagnosis?: No VTE Prior VTE?: No VTE Risk Level:: Medical - moderate - high VTE Device Contraindication: Treatment Not Indicated VTE Drug Contraindication: N/A - Med Ordered
[2023-09-13] MEDS: Metoprolol Tartrate 2.5 MG in 0.9 % Sodium Chloride 50 ML 210 MG IV ×3 (08:03→20:26)
[2023-09-13 08:38] LABS: Hemoglobin 13.8 g/dl (12.0-16.0); Mean Corpuscular HGB Conc 32.1 g/dl (31.0-35.0); Mean Corpuscular Hemoglobin 29.1 pg (27.0-33.0); Mean Corpuscular Volume 90.5 fL (80.0-98.0); Mean Platelet Volume 9.8 fL (9.4-12.3); Platelet Count 455 X10*3/uL (160-400); Red Blood Count 4.75 X10*6/uL (4.20-5.50); Red Cell Distribution Width 13.7 % (11.0-16.0); White Blood Count 17.9 X10*3/uL (4.8-10.8)
[2023-09-13 08:43] LABS: Ammonia 31 umol/L (13-55)
[2023-09-13 08:56] LABS: Alanine Aminotransferase 251 U/L (0-31); Albumin Level 3.3 g/dL (3.5-5.0); Alkaline Phosphatase 130 U/L (39-117); Anion Gap 19 (12-20); Aspartate Amino Transferase 118 U/L (5-31); Bilirubin Direct < 0.2 mg/dL (0.0-0.5); Bilirubin Total 0.1 mg/dL (0.0-1.0); Blood Urea Nitrogen 27 mg/dL (9-16); Calcium 10.1 mg/dL (8.4-10.2); Carbon Dioxide 18 mmol/L (22-29); Chloride 112 mmol/L (96-108); Creatinine Clr Calc Pharmacy 52.4; Estimated Glomerular Filt Rate > 60; Glucose Random 133 mg/dL (60-115); Potassium 4.3 mmol/L (3.3-5.1); Sodium 145 mmol/L (135-145); Total Protein 6.1 g/dL (6.5-8.0)
[2023-09-13] MEDS: Lactated Ringers 1,000 ML 100 ML IVCONT ×2 (09:53→20:30)
[2023-09-13 11:42] VITALS: BP 148/74; PULSE 116; RESP 20; TEMP 36.6; O2SAT 93
[2023-09-13 13:50] LABS: Appearance Urine Cloudy; Color Urine Yellow; Glucose Urine UA Negative (Negative); Leukocyte Esterase Urine Large (3+) (Negative); Nitrite Urine Positive (Negative); PH 5.5 (5.0-9.0); Specific Gravity - Urine 1.015 (1.005-1.025); UMIC TRIGGER UACC YES; Urine Blood Negative (Negative); Urine Ketones 80 mg/dL (Negative); Urine Protein Trace mg/dL (Neg-Trace)
[2023-09-13 14:02] LABS: Bacteria Urine 4+ (None Seen); RBC Urine 0-2 /HPF (0-2); Squamous Epithelial Cell Urine 0-2 /HPF (0-2); UACC Culture Trigger YES; WBC Urine >50 /HPF (0-5)
[2023-09-13 14:49] VITALS: BP 148/76; PULSE 110; RESP 20; TEMP 36.6; O2SAT 92
[2023-09-13 19:37] VITALS: BP 163/84; PULSE 115; RESP 14; TEMP 36.8; O2SAT 92
[2023-09-13] MEDS: Enoxaparin Sodium 40 MG/0.4 ML SYRINGE SUBCUT (20:31)
[2023-09-13 23:23] VITALS: BP 178/64; PULSE 102; RESP 18; TEMP 36.7; O2SAT 92
[2023-09-14 03:07] VITALS: BP 163/76; PULSE 101; RESP 18; TEMP 36.8; O2SAT 92
[2023-09-14] MEDS: Metoprolol Tartrate 2.5 MG in 0.9 % Sodium Chloride 50 ML 210 MG IV (03:07)
[2023-09-14] MEDS: Propranolol HCL 20 MG TABLET PO ×3 (08:06→21:36)
[2023-09-14] MEDS: Fluconazole 100 MG TABLET PO (08:06)
[2023-09-14] MEDS: cefTRIAXone sodium 1 GM in 0.9 % Sodium Chloride 50 ML IV (08:06)
[2023-09-14] MEDS: Multivitamin TABLET 1 TAB PO (08:06)
[2023-09-14] MEDS: amLODIPine Besylate 10 MG TABLET PO (08:06)
[2023-09-14 08:15] VITALS: BP 180/80; PULSE 101; RESP 19; TEMP 36.6; O2SAT 92
--- NOTE | 2023-09-14 08:33 | P.PNIM_ITS ---
Subjective Subjective Date of Service: 09/14/23 Interval History: She is more alert this morning, awake, talking in low voice and responding apropriate Physical Exam 2 Vital Signs: Vital Signs: Last Vital Signs Temp 97.9 F 09/14/23 08:15 Pulse 101 H 09/14/23 08:15 Resp 19 09/14/23 08:15 BP 180/80 H 09/14/23 08:15 Pulse Ox 92 09/14/23 08:15 O2 Del Method Nasal Cannula 09/14/23 08:15 O2 Flow Rate 2 09/14/23 08:15 BMI result Body Mass Index 20.8 Const: Other: General:Awake this morning, responding to question Resp: CTA bilateral CVS: S1,S2,RRR (tachcy) GI: +BS, NT, no distention Skin: No rash Neuro: motor grossly intact Psych: appropriate affect Objective Data Active Medications Acetaminophen (Acetaminophen 325 Mg Tablet) 650 mg PO Q4H PRN PRN Reason: Pain, Severe (Pain Scale 7-10) Last Admin: 09/11/23 13:14 Dose: 650 mg Documented By: YENNY Amlodipine Besylate (Amlodipine Besylate 10 Mg Tablet) 10 mg PO DAILY [facility]; Protocol Last Admin: 09/14/23 08:06 Dose: 10 mg Documented By: YARITZA Ascorbic Acid (Ascorbic Acid 500 Mg Tablet) 2,000 mg PO BEDTIME [facility] Last Admin: 09/13/23 20:31 Dose: Not Given Documented By: THUY Non-Admin Reason: Patient Refused Enoxaparin Sodium (Enoxaparin Sodium 40 Mg/0.4 Ml Syringe) 40 mg SUBCUT Q24H [facility] Last Admin: 09/13/23 20:31 Dose: 40 mg Documented By: THUY Fluconazole (Fluconazole 100 Mg Tablet) 100 mg PO DAILY [facility] Stop: 09/18/23 13:29 Last Admin: 09/14/23 08:06 Dose: 100 mg Documented By: YARITZA Fluticasone Propionate (Fluticasone Propionate Nasal 16 Gm [place]) 1 spray NOSTRIL-B BID [facility] Last Admin: 09/14/23 08:26 Dose: Not Given Documented By: YARITZA Non-Admin Reason: Patient Refused Lactated Ringer's (Lr) 1,000 mls @ 100 mls/hr IVCONT .Q10H [facility] Last Admin: 09/14/23 05:57 Dose: Not Given Documented By: KASANDRA Non-Admin Reason: IV Running Metoprolol Tartrate 2.5 mg/ (Sodium Chloride) 52.5 mls @ 210 mls/hr IV Q6H [facility] Last Admin: 09/14/23 08:14 Dose: Not Given Documented By: COTEMA Non-Admin Reason: Physician Held Med Ceftriaxone Sodium 1 gm/ (Sodium Chloride) 50 mls @ 100 mls/hr IV Q24H [facility] Last Admin: 09/14/23 08:06 Dose: 100 mls/hr Documented By: YARITZA Melatonin (Melatonin 3 Mg Tablet) 6 mg PO BEDTIME PRN PRN Reason: Insomnia Last Admin: 09/04/23 20:09 Dose: 6 mg Documented By: OZORALB Multivitamins/Vitamin C (Multivitamin Tablet) 1 tab PO DAILY [facility] Last Admin: 09/14/23 08:06 Dose: 1 tab Documented By: YARITZA Omeprazole (Omeprazole 20 Mg Capsule.Dr) 20 mg PO DAILY@0630 [facility] Last Admin: 09/14/23 05:58 Dose: Not Given Documented By: KASANDRA Non-Admin Reason: cannot follow commands; cannot swallow safely Propranolol HCl (Propranolol Hcl 20 Mg Tablet) 20 mg PO TID [facility]; Protocol Last Admin: 09/14/23 08:06 Dose: 20 mg Documented By: YARITZA Sodium Chloride (0.9 % Sodium Chloride Flush 3 Ml Syringe) 3 ml IVFLUSH QSHIFT [facility] Last Admin: 09/14/23 07:35 Dose: Not Given Documented By: YARITZA Non-Admin Reason: IV Running Labs 09/13/23 08:27 09/13/23 08:27 Labs: Laboratory Results - last 24 hr 09/13/23 09/13/23 08:27 13:36 MCV 90.5 MCH 29.1 MCHC 32.1 RDW 13.7 Plt Count 455 H MPV 9.8 Absolute Nucleated RBC 0.000 Nucleated RBC % (auto) 0.0 Anion Gap 19 Estim Creat Clear Calc 52.4 Estimated GFR > 60 Random Glucose 133 H Calcium 10.1 D Total Bilirubin 0.1 Direct Bilirubin < 0.2 AST 118 H ALT 251 H Alkaline Phosphatase 130 H Ammonia 31 Total Protein 6.1 L Albumin 3.3 L Urine Color Yellow Urine Appearance Cloudy Urine pH 5.5 Ur Specific [place] 1.015 Urine Protein Trace Urine Glucose (UA) Negative Urine Ketones 80 Urine Blood Negative Urine Nitrite Positive H Ur Leukocyte Esterase Large (3+) H Urine RBC 0-2 Urine WBC >50 H Ur Squamous Epith Cells 0-2 Urine Bacteria 4+ Hyaline Casts 3-5 Assessment and Plan (1) Odynophagia: Status: Acute (2) Abnormal EKG: Status: Acute Plan 72F PMH htn, adhd, anxiety, depression, presented with agitation, tremors, ataxia Agitation and tremors, initial concern for seritonin syndrome but probably was just delirium. Agitation resolved Periods of unresponsivenesss/Hypoactive state not characteristic of catatonia, with variable response to Ativan, in fact Ativan maybe causing over sedation at this poin. She probably has hypoactive delirium, she's more awake this morning. Psych to follow up dysphagia speech recommends NND1 + thin liquid. Presently NPO as she won' take anything by mouth, so IVF hydration GI to reschedule EGD when medically stable TWI noted on ECG to check for QTC, no other symptoms, trops negative x 2, seen by cardioloty Echo nl LVEF, no WMA. No further testing at this time hypOkalemia, corrected w/ supplement, check labs today Decrease O2, no fever, CXR per my review atelectatis urinary retention, streaight cath PRN UTI--started Ceftriaxone 09/14 Elevated LFTs, etiology unclear ? meds, trending down htn--controlled on proparanolol and Norvasc, but presently not taking meds by mouth. Adding IV Metoprolol Tachycardia--d/t withdrawal from Propranolol while NPO, IV Metoprolol if not taking things by mouth Purulent discharge from right eye and redness--Abx drop dvt prophlyaxis - lovenox code status - full code PT is recommending short term rehab reason for continued hospitalization: dysphagia, electrolyte replacement/monitoring and awaiting Psych placement Time Spent With Patient Time: Total time managing care of this patient today ____ minutes. Quality Stroke Does the patient have a stroke diagnosis?: No VTE Prior VTE?: No VTE Risk Level:: Medical - moderate - high VTE Device Contraindication: Treatment Not Indicated VTE Drug Contraindication: N/A - Med Ordered
[2023-09-14] MEDS: Lactated Ringers 1,000 ML 100 ML IVCONT ×2 (08:59→18:28)
[2023-09-14] MEDS: Acetaminophen 325 MG TABLET 650 MG PO (09:10)
[2023-09-14 11:51] VITALS: BP 147/73; PULSE 85; RESP 19; TEMP 36.3; O2SAT 95
[2023-09-14] MEDS: Moxifloxacin HCl 0.5 % Oph Sol 3 ML DRPBTL 1 DROP EYE-BOTH (12:23)
[2023-09-14 15:07] VITALS: BP 169/79; PULSE 88; RESP 20; TEMP 36.5; O2SAT 92
--- NOTE | 2023-09-14 16:02 | MHC.CM.PN ---
EMR reviewed and per MD rounds, pt is not medically cleared for D/C due to awaiting rocío-psych placement. CM will continue to follow.
[2023-09-14 19:14] VITALS: BP 134/79; PULSE 94; RESP 20; TEMP 36.1; O2SAT 92
[2023-09-14] MEDS: Ascorbic Acid 500 MG TABLET 2000 MG PO (21:35)
[2023-09-14] MEDS: Melatonin 3 MG TABLET 6 MG PO (21:35)
[2023-09-14] MEDS: Enoxaparin Sodium 40 MG/0.4 ML SYRINGE SUBCUT (21:36)
[2023-09-14 23:13] VITALS: BP 133/72; PULSE 85; RESP 18; TEMP 37.5; O2SAT 92
[2023-09-15 03:24] VITALS: BP 146/72; PULSE 79; RESP 16; TEMP 37.1; O2SAT 94
[2023-09-15] MEDS: Omeprazole 20 MG CAPSULE.DR PO (06:51)
[2023-09-15] MEDS: cefTRIAXone sodium 1 GM in 0.9 % Sodium Chloride 50 ML IV (06:52)
[2023-09-15 07:03] VITALS: BP 175/79; PULSE 84; RESP 19; TEMP 36.7; O2SAT 93
[2023-09-15] MEDS: Multivitamin TABLET 1 TAB PO (08:21)
[2023-09-15] MEDS: Moxifloxacin HCl 0.5 % Oph Sol 3 ML DRPBTL 1 DROP EYE-BOTH ×2 (08:21→20:58)
[2023-09-15] MEDS: Fluconazole 100 MG TABLET PO (08:21)
[2023-09-15] MEDS: Propranolol HCL 20 MG TABLET PO ×3 (08:21→20:56)
[2023-09-15] MEDS: amLODIPine Besylate 10 MG TABLET PO (08:21)
[2023-09-15] MEDS: 0.9 % Sodium Chloride Flush 3 ML SYRINGE IVFLUSH ×3 (08:21→20:57)
[2023-09-15] MEDS: Lactated Ringers 1,000 ML 100 ML IVCONT (08:23)
[2023-09-15 11:46] VITALS: BP 136/75; PULSE 85; TEMP 36.7; O2SAT 96
[2023-09-15] MEDS: buPROPion HCL 75 MG TABLET PO (13:54)
[2023-09-15 15:06] VITALS: BP 153/70; PULSE 90; RESP 18; TEMP 36.1; O2SAT 93
--- NOTE | 2023-09-15 17:03 | HO.PM.IMPN ---
Subjective Subjective Date of Service: 09/15/23 Interval History: follow up Review of Systems She is more alert this morning, awake, talking in low voice and responding apropriate no fevers as per she ate in morning Physical Exam Vital Signs: Vital Signs: Last Vital Signs Temp 97.0 F 09/15/23 15:06 Pulse 90 09/15/23 15:06 Resp 18 09/15/23 15:06 BP 153/70 H 09/15/23 15:06 Pulse Ox 93 09/15/23 15:06 O2 Del Method Room Air 09/15/23 15:06 O2 Flow Rate 2 09/14/23 11:51 BMI result Body Mass Index 20.8 General:Awake this morning, responding to question Resp: CTA bilateral CVS: S1,S2,RRR GI: +BS, NT, no distention Skin: No rash Neuro: motor grossly intact Psych: appropriate affect Objective Data Active Medications Acetaminophen (Acetaminophen 325 Mg Tablet) 650 mg PO Q4H PRN PRN Reason: Pain, Severe (Pain Scale 7-10) Last Admin: 09/14/23 09:10 Dose: 650 mg Documented By: YARITZA Amlodipine Besylate (Amlodipine Besylate 10 Mg Tablet) 10 mg PO DAILY [facility]; Protocol Last Admin: 09/15/23 08:21 Dose: 10 mg Documented By: SHENG Ascorbic Acid (Ascorbic Acid 500 Mg Tablet) 2,000 mg PO BEDTIME [facility] Last Admin: 09/14/23 21:35 Dose: 2,000 mg Documented By: KEITH Enoxaparin Sodium (Enoxaparin Sodium 40 Mg/0.4 Ml Syringe) 40 mg SUBCUT Q24H [facility] Last Admin: 09/14/23 21:36 Dose: 40 mg Documented By: KEITH Fluticasone Propionate (Fluticasone Propionate Nasal 16 Gm [place]) 1 spray NOSTRIL-B BID [facility] Last Admin: 09/15/23 08:22 Dose: Not Given Documented By: SHENG Non-Admin Reason: Patient Refused Ceftriaxone Sodium 1 gm/ (Sodium Chloride) 50 mls @ 100 mls/hr IV Q24H [facility] Last Infusion: 09/15/23 08:29 Dose: Infused Documented By: SHENG Melatonin (Melatonin 3 Mg Tablet) 6 mg PO BEDTIME PRN PRN Reason: Insomnia Last Admin: 09/14/23 21:35 Dose: 6 mg Documented By: KEITH Moxifloxacin HCl (Moxifloxacin Hcl 0.5 % Oph Reina 3 Ml Drpbtl) 1 drop EYE-BOTH BID [facility] Stop: 09/19/23 08:59 Last Admin: 09/15/23 08:21 Dose: 1 drop Documented By: SHENG Multivitamins/Vitamin C (Multivitamin Tablet) 1 tab PO DAILY [facility] Last Admin: 09/15/23 08:21 Dose: 1 tab Documented By: SHENG Omeprazole (Omeprazole 20 Mg Capsule.Dr) 20 mg PO DAILY@0630 [facility] Last Admin: 09/15/23 06:51 Dose: 20 mg Documented By: KEITH Propranolol HCl (Propranolol Hcl 20 Mg Tablet) 20 mg PO TID [facility]; Protocol Last Admin: 09/15/23 16:49 Dose: 20 mg Documented By: SHENG Sodium Chloride (0.9 % Sodium Chloride Flush 3 Ml Syringe) 3 ml IVFLUSH QSHIFT [facility] Last Admin: 09/15/23 16:50 Dose: 3 ml Documented By: SHENG Labs 09/13/23 08:27 09/13/23 08:27 Microbiology Microbiology Results: Microbiology 09/13/23 Unknown Urine Culture - Preliminary Urine Catheterized - Straight Catheter Escherichia coli Assessment and Plan (1) Odynophagia: Status: Acute Assessment and Plan: 72F PMH htn, adhd, anxiety, depression, presented with agitation, tremors, ataxia Agitation and tremors, initial concern for seritonin syndrome but probably was just delirium. Agitation resolved Periods of unresponsivenesss/Hypoactive state not characteristic of catatonia, with variable response to Ativan, in fact Ativan maybe causing over sedation at this poin. She probably has hypoactive delirium, she's more awake this morning. Psych to follow up dysphagia speech recommends NND1 + thin liquid. Presently NPO as she won' take anything by mouth, so IVF hydration GI to reschedule EGD when medically stable TWI noted on ECG to check for QTC, no other symptoms, trops negative x 2, seen by cardioloty Echo nl LVEF, no WMA. No further testing at this time hypOkalemia, corrected w/ supplement, check labs today Decrease O2, no fever, CXR per my review atelectatis urinary retention, streaight cath PRN UTI--started Ceftriaxone 09/14 Elevated LFTs, etiology unclear ? meds, trending down htn--controlled on proparanolol and Norvasc, but presently not taking meds by mouth. Adding IV Metoprolol Tachycardia--d/t withdrawal from Propranolol while NPO, IV Metoprolol if not taking things by mouth Purulent discharge from right eye and redness--Abx drop dvt prophlyaxis - lovenox code status - full code PT is recommending short term rehab reason for continued hospitalization: awaiting Psych placement Time Spent With Patient Time: Total time managing care of this patient today ____ minutes. Quality Stroke Does the patient have a stroke diagnosis?: No VTE Prior VTE?: No VTE Risk Level:: Medical - moderate - high VTE Device Contraindication: Treatment Not Indicated VTE Drug Contraindication: N/A - Med Ordered
[2023-09-15 19:45] VITALS: BP 144/70; PULSE 85; RESP 18; TEMP 36.3; O2SAT 95
[2023-09-15] MEDS: Ascorbic Acid 500 MG TABLET 2000 MG PO (20:57)
[2023-09-15] MEDS: Enoxaparin Sodium 40 MG/0.4 ML SYRINGE SUBCUT (20:57)
[2023-09-15] MEDS: Fluticasone Propionate Nasal 16 GM SPRAY 1 SPRAY NOSTRIL-B (20:58)
[2023-09-15 23:20] VITALS: BP 134/74; PULSE 74; RESP 18; TEMP 36.4; O2SAT 94
[2023-09-16 04:00] VITALS: BP 156/76; PULSE 80; RESP 18; TEMP 36.4; O2SAT 94
[2023-09-16] MEDS: Omeprazole 20 MG CAPSULE.DR PO (05:54)
[2023-09-16] MEDS: cefTRIAXone sodium 1 GM in 0.9 % Sodium Chloride 50 ML IV (06:00)
[2023-09-16 07:17] VITALS: BP 165/76; PULSE 85; RESP 20; TEMP 36.9; O2SAT 92
[2023-09-16] MEDS: 0.9 % Sodium Chloride Flush 3 ML SYRINGE IVFLUSH ×3 (08:42→20:44)
[2023-09-16] MEDS: Propranolol HCL 20 MG TABLET PO ×3 (08:43→20:43)
[2023-09-16] MEDS: Fluticasone Propionate Nasal 16 GM SPRAY 1 SPRAY NOSTRIL-B (08:43)
[2023-09-16] MEDS: Moxifloxacin HCl 0.5 % Oph Sol 3 ML DRPBTL 1 DROP EYE-BOTH ×2 (08:43→20:44)
[2023-09-16] MEDS: amLODIPine Besylate 10 MG TABLET PO (08:43)
[2023-09-16] MEDS: Multivitamin TABLET 1 TAB PO (08:43)
[2023-09-16 11:06] VITALS: BP 135/74; PULSE 77; RESP 20; TEMP 36.9; O2SAT 93
[2023-09-16] MEDS: Nitrofurantoin Monohyd/M-Cryst 100 MG CAPSULE PO (11:46)
[2023-09-16] MEDS: buPROPion HCL 75 MG TABLET PO (13:20)
[2023-09-16] MEDS: Sulfamethox/Trimeth 800/160 TABLET 1 TAB PO (13:20)
[2023-09-16 14:26] LABS: HBc Num1 0.08 S/CO (0.00-0.79); HBsAGNum1 0.37 S/CO (0.00-0.99); Hepatitis A Antibody IgM 0.19 Index (0-0.79); Hepatitis B Core Antibody Nonreactive (Nonreactive); Hepatitis B Surface Antigen Negative (Negative); ~HepC Num1 0.08 S/CO (0.00-0.79); ~Hepatitis A Antibody IgM Nonreactive (Nonreactive); ~Hepatitis B Surface Antibody NONREACTIVE (Nonreactive); ~Hepatitis C Antibody Nonreactive (Nonreactive)
--- NOTE | 2023-09-16 15:14 | MHC.CM.PN ---
EMR reviewed and per MD rounds, pt is medically cleared for D/C pending rocío-psych bed placement, tentatively today. CM will continue to follow.
--- NOTE | 2023-09-16 15:22 | HO.PM.IMPN ---
Subjective Subjective Date of Service: 09/17/23 Interval History: psych placement Review of Systems denies new c/o Physical Exam Vital Signs: Vital Signs: Last Vital Signs Temp 98.4 F 09/16/23 11:06 Pulse 77 09/16/23 11:06 Resp 20 09/16/23 11:06 BP 135/74 09/16/23 11:06 Pulse Ox 93 09/16/23 11:06 O2 Del Method Room Air 09/16/23 11:06 O2 Flow Rate 2 09/14/23 11:51 BMI result Body Mass Index 20.8 General:Awake this morning, responding to question Resp: CTA bilateral CVS: S1,S2,RRR GI: +BS, NT, no distention Skin: No rash Neuro: motor grossly intact Psych: appropriate affect Objective Data Active Medications Acetaminophen (Acetaminophen 325 Mg Tablet) 650 mg PO Q4H PRN PRN Reason: Pain, Severe (Pain Scale 7-10) Last Admin: 09/14/23 09:10 Dose: 650 mg Documented By: YARITZA Amlodipine Besylate (Amlodipine Besylate 10 Mg Tablet) 10 mg PO DAILY [facility] [place]; Protocol Last Admin: 09/16/23 08:43 Dose: 10 mg Documented By: MIN Ascorbic Acid (Ascorbic Acid 500 Mg Tablet) 2,000 mg PO BEDTIME [facility] [place] Last Admin: 09/15/23 20:57 Dose: 2,000 mg Documented By: CECIL Bupropion HCl (Bupropion Hcl 75 Mg Tablet) 75 mg PO DAILY [facility] [place] Last Admin: 09/16/23 13:20 Dose: 75 mg Documented By: MIN Enoxaparin Sodium (Enoxaparin Sodium 40 Mg/0.4 Ml Syringe) 40 mg SUBCUT Q24H [facility] [place] Last Admin: 09/15/23 20:57 Dose: 40 mg Documented By: CECIL Fluticasone Propionate (Fluticasone Propionate Nasal 16 Gm [place]) 1 spray NOSTRIL-B BID [facility] [place] Last Admin: 09/16/23 08:43 Dose: 1 spray Documented By: MIN Melatonin (Melatonin 3 Mg Tablet) 6 mg PO BEDTIME PRN PRN Reason: Insomnia Last Admin: 09/14/23 21:35 Dose: 6 mg Documented By: KEITH Moxifloxacin HCl (Moxifloxacin Hcl 0.5 % Oph Reina 3 Ml Drpbtl) 1 drop EYE-BOTH BID [facility] [place] Stop: 09/19/23 08:59 Last Admin: 09/16/23 08:43 Dose: 1 drop Documented By: MIN Multivitamins/Vitamin C (Multivitamin Tablet) 1 tab PO DAILY [facility] [place] Last Admin: 09/16/23 08:43 Dose: 1 tab Documented By: MIN Omeprazole (Omeprazole 20 Mg Capsule.Dr) 20 mg PO DAILY@0630 [facility] [place] Last Admin: 09/16/23 05:54 Dose: 20 mg Documented By: TATIANNA Propranolol HCl (Propranolol Hcl 20 Mg Tablet) 20 mg PO TID [facility] [place]; Protocol Last Admin: 09/16/23 08:43 Dose: 20 mg Documented By: MIN Sodium Chloride (0.9 % Sodium Chloride Flush 3 Ml Syringe) 3 ml IVFLUSH QSHIFT [facility] [place] Last Admin: 09/16/23 08:42 Dose: 3 ml Documented By: MIN Trimethoprim/Sulfamethoxazole (Sulfamethox/Trimeth 800/160 Tablet) 1 tab PO Q12H [facility] [place] Last Admin: 09/16/23 13:20 Dose: 1 tab Documented By: MIN Labs 09/17/23 07:09 09/17/23 07:09 Labs: Laboratory Results - last 24 hr 09/16/23 13:05 Hepatitis A IgM Ab Nonreactive Hep Bs Antigen Negative Hep Bs Antibody NONREACTIVE Hep B Core Total Ab Nonreactive Hepatitis C Ab (EIA) Nonreactive Microbiology Microbiology Results: Microbiology 09/13/23 Unknown Urine Culture - Final Urine Catheterized - Straight Catheter Escherichia coli Assessment and Plan (1) Odynophagia: Status: Acute Assessment and Plan: 72F PMH htn, adhd, anxiety, depression, presented with agitation, tremors, ataxia Agitation and tremors, initial concern for seritonin syndrome but probably was just delirium. Agitation resolved Periods of unresponsivenesss/Hypoactive state not characteristic of catatonia, with variable response to Ativan, in fact Ativan maybe causing over sedation at this poin. She probably has hypoactive delirium, she's more awake this morning. Psych to follow up dysphagia speech recommends NND1 + thin liquid. elevated lfts's: lft's seems improving ,abd us [id number] liver. Contracted gallbladder and probable small gallbladder wall polyps. hepatitis a,b,c nonreactive GI to reschedule EGD when medically stable. Gi follow outaptient. TWI noted on ECG to check for QTC, no other symptoms, trops negative x 2, seen by cardioloty Echo nl LVEF, no WMA. No further testing at this time hypOkalemia, corrected . Decrease O2, no fever, CXR per my review atelectatis urinary retention, streaight cath PRN UTI--started Ceftriaxone 09/14 Elevated LFTs, etiology unclear ? meds, trending down added heaptitis profile ,abd us. htn--controlled on proparanolol and Norvasc, but presently not taking meds by mouth. Tachycardia--d/t withdrawal from Propranolol while NPO, IV Metoprolol if not taking things by mouth Purulent discharge from right eye and redness--Abx drop dvt prophlyaxis - lovenox code status - full code PT is recommending short term rehab reason for continued hospitalization: awaiting Psych placement Quality Stroke Does the patient have a stroke diagnosis?: No VTE Prior VTE?: No VTE Risk Level:: Medical - moderate - high VTE Device Contraindication: Treatment Not Indicated VTE Drug Contraindication: N/A - Med Ordered
[2023-09-16 15:47] VITALS: BP 120/70; PULSE 88; RESP 18; TEMP 37.1; O2SAT 92
--- NOTE | 2023-09-16 16:56 | PM.DS ---
DS: Providers Provider Date of Service: 09/16/23 Date of admission: 08/29/23 12:12 Date of discharge: 09/16/23 Primary care physician: Tami Francis MD Admitting clinician: Valentine Mcclendon Attending physician on admission: Valentine Mcclendon Consults: 08/27/23 23:02 Consult to Psychiatry Routine Consulting Provider: Psych Covering Reason for consultation: Mood disorder, anti psych optimization 08/28/23 08:34 Consult to Neurology Routine Consulting Provider: [facility] Reason for consultation: Possible serotonin syndrome 09/04/23 11:02 Consult to Gastroenterology Routine Consulting Provider: Corinne Rivas Reason for consultation: abnormal barium swallow Has provider been notified: No 09/04/23 17:00 Consult to Cardiology Routine Consulting Provider: [facility] Reason for consultation: ekg changes Has provider been notified: No 09/06/23 15:29 Consult for Sitter Routine Reason for consultation: not to hurt self DS: Diagnosis Discharge Diagnosis (1) Odynophagia: Status: Acute DS: Summary Hospital Course Hospital Course: 72-year-old female with a PMH significant for?HTN, ADHD, GED, and depression who presents to the ED for evaluation of increased agitation, depression, tremors, and inability to walk. Patient with extensive psychiatric history and admissions for inpatient psychiatric care, followed by Dr. Shearer who has made recent changes to her psychiatric medications including addition of brexpiprazole and clomipramine. Patient reports a previous history of upper extremity tremors, but states that over the past week has noticed worsening tremors in her hands and the development of tremors in her feet which has made it difficult to walk. Has also been experiencing difficulty speaking, and increased agitation and depression over the past few days. States she has not been eating or drinking adequately. Denies any SI. Patient also denies any other acute medical complaints. No chest pain/pressure, palpitations. Denies fever, chills, nausea, vomiting, abdominal pain. No difficulty breathing, shortness of breath. In the ED patient was afebrile, but tachycardic to 111 and initially hypertensive up to 170/122. Labs were significant for leukocytosis of 13.9, H&H 16.3/49.1, sodium 134, AST 66, ALT 179, otherwise grossly unremarkable. EKG demonstrated normal sinus rhythm without ST elevations or depressions. Pt was treated with IV Ativan and IVF. Pt will be admitted to the hospital for treatment and further evaluation of increased agitation, tremors, and ataxia concerning for serotonin syndrome. Hospital course: Patient was initially admitted for agitation and tremors-patient had variable response with ativan and also has hypoactive delirium which seems to be improving. Agitation and tremors, initial concern for seritonin syndrome but probably was just delirium. Agitation resolved. patient variable response to Ativan, in fact Ativan maybe causing over sedation so stopped. She possibly had component of hypoactive delirium which seems to be improved significantly with supportive care. Yesterday patient was started on Wellbutrin- Psych to follow up for further management and further readjustments of psych medications. dysphagia speech recommends NND1 + thin liquid. Presently NPO as she won' take anything by mouth, so IVF hydration GI to reschedule EGD outpatient . TWI noted on ECG to check for QTC, no other symptoms, trops negative x 2, seen by cardioloty Echo nl LVEF, no WMA. No further testing at this time. hypOkalemia, corrected w/ supplement, improved. Decrease O2, no fever, CXR per my review atelectatis,now sats 92 % air. talking in full sentences. urinary retention, streaight cath PRN. UTI--started Ceftriaxone 09/14-switch to bactrim upon discharge(d/w ID). Elevated LFTs, etiology unclear ? meds, trending down heaptitis profile seems fine,abd us pending . d/w GI Rob -can be followed on psych service. htn--controlled on proparanolol and Norvasc. Purulent discharge from right eye and redness-seems improving--Abx drop. moniter cbc ,lft's in 1- 2 days Time Attestation Discharge coordination time: Greater than 30 minutes Quality: Safe Use of Opioids Does Pt have an Active Cancer Diagnosis on the Problem List?: No Quality: Stroke Does the patient have a stroke diagnosis?: No Physical Exam Vital Signs: Vital Signs: Last Vital Signs Temp 98.7 F 09/16/23 15:47 Pulse 88 09/16/23 15:47 Resp 18 09/16/23 15:47 BP 120/70 09/16/23 15:47 Pulse Ox 92 09/16/23 15:47 O2 Del Method Room Air 09/16/23 15:47 O2 Flow Rate 2 09/14/23 11:51 BMI result Body Mass Index 20.8 Appearance: Alert.? Oriented X3.? not in distress.? Eyes: Pupils equal, round and reactive to light.? Sclera nonicteric.? ENT: Pharynx normal.? Moist mucous membranes. cvs: rrr, [id number] , no murmur res: clear to auscultation ,no rhonchii or wheezing abd: no rebound or guarding ,nt, bs present. ext pulses present , no cyanosis ,Gait well balanced well coordinated. neuro: axo3 , nonfocal. DS: Data Data Completed and Pending Labs on day of discharge: Laboratory Results - last 24 hr 09/16/23 13:05 Hepatitis A IgM Ab Nonreactive Hep Bs Antigen Negative Hep Bs Antibody NONREACTIVE Hep B Core Total Ab Nonreactive Hepatitis C Ab (EIA) Nonreactive Imaging Chest x-ray: Radiologist's impression: ITS Impressions Brain MRI 09/01/23 12:35 IMPRESSION: 1. No acute infarct or other acute intracranial abnormality 2. Moderate chronic microangiopathy Chest X-Ray 09/02/23 10:20 IMPRESSION: Unremarkable examination. Barium Swallow X-Ray 09/03/23 13:56 IMPRESSION: Somewhat limited exam as discussed. 1) Small amount of subglottic aspiration of thick barium noted on first swallow. 2) Irregular mucosal pattern of the superior esophagus suggestive of erosive esophagitis. Given preference of the superior one third of the esophagus, Ann esophagitis (thrush) should be strongly considered. Direct visualization with endoscopy is recommended. Would also recommend direct visualization of the posterior oropharynx to assess for classic plaques of Ann. 3) Marked esophageal dysmotility. Small type I hiatus hernia. Cannot well assess for reflux. 4. Somewhat delayed opening of the LES, suggesting a mild component of achalasia. This procedures performed by French Wheeler PA-C, and supervised by Dr. Webster. The care team was made aware of the findings by Fernch Wheeler PA-C. Modified Barium Swallow 09/04/23 14:25 IMPRESSION: Unremarkable modified barium swallow. Correlate with speech therapy report. Chest X-Ray 09/07/23 18:32 IMPRESSION: NGT tip project in left upper quadrant of abdomen with sideport at or just below expected level of GE junction. Left basilar opacity may represent atelectasis and/or pneumonia. Chest X-Ray 09/13/23 09:25 IMPRESSION: Left basilar atelectasis/infiltrate. Discharge Plan Discharge Anticipated Discharge Date/Time: 09/16/23 11:21 Discharge Diagnosis: hypoactive delirum, elevated lft's Referrals: Tami Francis MD [Primary Care Provider] - 1 Week Discharge Medications: New omeprazole 20 mg Capsule,Delayed Release(Dr/Ec) 20 mg PO DAILY@0630 Qty: 30 0RF sulfamethoxazole-trimethoprim 800-160 mg Tablet 1 tab PO Q12H Qty: 12 0RF moxifloxacin 0.5 % Drops 1 drp ophthalmic (eye) BID Qty: 3 0RF bupropion HCl 75 mg Tablet 75 mg PO DAILY Qty: 1 0RF Continued multivitamin [Daily-Dara] Tablet 1 tab PO DAILY 30 Days Qty: 30 0RF ascorbic acid (vitamin C) [Vitamin C] 500 mg Tablet 2,000 mg PO BEDTIME 30 Days Qty: 120 0RF amlodipine 5 mg tablet 10 mg PO DAILY fluticasone propionate 50 mcg/actuation spray,suspension 1 spray intranasal BID propranolol 20 mg tablet 20 mg PO BID Discontinued lithium carbonate 300 mg tablet 300 mg PO BEDTIME 90 Days Qty: 90 1RF clomipramine 25 mg capsule 50 mg PO BEDTIME Qty: 60 1RF alprazolam 0.25 mg tablet 0.5 mg PO TID PRN (Reason: anxiety) Spravato 56 mg (28 mg x 2) spray,non-aerosol 84 mg intranasal TUTH fluoxetine 40 mg capsule 80 mg PO DAILY 90 Days Qty: 180 1RF brexpiprazole 1 mg tablet 0.5 mg PO DAILY Qty: 30 2RF Discharge Orders: Discharge Order (Routine); Ordered 09/16/23 Ordered By: Valentine Mcclendon Diet: Advance to usual diet Activity on Discharge: As tolerated Stand Alone Forms: Patient Portal Discharge page Health Concerns: Patient was initially admitted for agitation and tremors-patient had variable response with ativan and also has hypoactive delirium which seems to be improving. Agitation and tremors, initial concern for seritonin syndrome but probably was just delirium. Agitation resolved. patient variable response to Ativan, in fact Ativan maybe causing over sedation so stopped. She possibly had component of hypoactive delirium which seems to be improved significantly with supportive care. Yesterday patient was started on Wellbutrin- Psych to follow up for further management and further readjustments of psych medications. dysphagia speech recommends NND1 ( perfers pureed diet for now). consider speech follow up. GI to reschedule EGD outpatient . TWI noted on ECG to check for QTC, no other symptoms, trops negative x 2, seen by cardioloty Echo nl LVEF, no WMA. No further testing at this time. hypOkalemia, corrected w/ supplement, improved. Decrease O2, no fever, CXR per my review atelectatis,now sats 92 % air. talking in full sentences. urinary retention, streaight cath PRN. UTI--started Ceftriaxone 09/14-switch to bactrim upon discharge(d/w ID). Elevated LFTs, etiology unclear ? meds, trending down heaptitis profile seems fine,abd us pending . d/w GI Rob -can be followed on psych service. htn--controlled on proparanolol and Norvasc. Purulent discharge from right eye and redness-seems improving--Abx drop. moniter cbc ,lft's , 1-2 days Plan of Treatment: as above. Assessment: as above.
[2023-09-16 19:01] VITALS: BP 134/74; PULSE 76; RESP 16; TEMP 36.7; O2SAT 91
[2023-09-16] MEDS: Ascorbic Acid 500 MG TABLET 2000 MG PO (20:43)
[2023-09-16] MEDS: Enoxaparin Sodium 40 MG/0.4 ML SYRINGE SUBCUT (20:44)
[2023-09-16 23:33] VITALS: BP 146/68; PULSE 76; RESP 18; TEMP 36.4; O2SAT 96
[2023-09-17] VITALS (7 sets, daily range): BP systolic 130–158; BP diastolic 62–79; PULSE 78–88; RESP 17–20; TEMP 36.1–37; O2SAT 92–95
--- NOTE | 2023-09-17 00:13 | PC.NURSE ---
Assumed care 0:00 midnight 09/17.
--- NOTE | 2023-09-17 05:53 | PC.NURSE ---
Pt incontinent with brief in place, voiding moderate amounts; unable to use purewick due to frequent pt movement/repositioning, causing displacement. Orders for straight cath q.shift in place. Bladder scanned prior for 279ml. Covering Dr. Emil Yanes notified of bladder scan with written orders to defer straight cath at this time.
[2023-09-17 07:19] LABS: MANUAL DIFF FLAG NO
[2023-09-17 07:23] LABS: Basophils Percent Auto 0.5 % (0-2); Eosinophils Absolute Auto 0.2 X10*3/uL (0.0-0.4); Hematocrit 41.2 % (37.0-47.0); Hemoglobin 13.7 g/dl (12.0-16.0); Imm Gran Abs Auto 0.09 X10*3/uL (0.00-0.03); Imm Gran Pct Auto 1.1 % (0.0-0.4); Lymphocytes Absolute Auto 1.5 X10*3/uL (1.2-4.9); Lymphocytes Percent Auto 17.9 % (20-40); Mean Corpuscular HGB Conc 33.3 g/dl (31.0-35.0); Mean Corpuscular Volume 87.1 fL (80.0-98.0); Monocytes Absolute Auto 0.8 X10*3/uL (0.1-1.2); Neutrophils Absolute Auto 5.6 x10*3/uL (2.0-8.3); Neutrophils Percent Auto 68.5 % (45-73); Platelet Count 397 X10*3/uL (160-400); Red Blood Count 4.73 X10*6/uL (4.20-5.50); Red Cell Distribution Width 13.6 % (11.0-16.0); White Blood Count 8.2 X10*3/uL (4.8-10.8)
[2023-09-17 07:36] LABS: Alanine Aminotransferase 136 U/L (0-31); Alkaline Phosphatase 125 U/L (39-117); Anion Gap 12 (12-20); Aspartate Amino Transferase 78 U/L (5-31); Bilirubin Direct < 0.2 mg/dL (0.0-0.5); Bilirubin Total 0.2 mg/dL (0.0-1.0); Blood Urea Nitrogen 20 mg/dL (9-16); Calcium 9.4 mg/dL (8.4-10.2); Carbon Dioxide 23 mmol/L (22-29); Chloride 112 mmol/L (96-108); Creatinine Clr Calc Pharmacy 65.1; Estimated Glomerular Filt Rate > 60; Glucose Random 114 mg/dL (60-115); Potassium 3.3 mmol/L (3.3-5.1); Sodium 144 mmol/L (135-145); Total Protein 5.6 g/dL (6.5-8.0)
[2023-09-17] MEDS: Multivitamin TABLET 1 TAB PO (08:28)
[2023-09-17] MEDS: buPROPion HCL 75 MG TABLET PO (08:28)
[2023-09-17] MEDS: amLODIPine Besylate 10 MG TABLET PO (08:28)
[2023-09-17] MEDS: Fluticasone Propionate Nasal 16 GM SPRAY 1 SPRAY NOSTRIL-B ×2 (08:29→20:08)
[2023-09-17] MEDS: 0.9 % Sodium Chloride Flush 3 ML SYRINGE IVFLUSH (08:29)
[2023-09-17] MEDS: Moxifloxacin HCl 0.5 % Oph Sol 3 ML DRPBTL 1 DROP EYE-BOTH ×2 (08:29→20:08)
[2023-09-17] MEDS: Propranolol HCL 20 MG TABLET PO ×3 (08:29→20:08)
[2023-09-17] MEDS: Sulfamethox/Trimeth 800/160 TABLET 1 TAB PO ×2 (12:54→23:45)
--- NOTE | 2023-09-17 15:33 | P.PNIM_ITS ---
Subjective Subjective Date of Service: 09/17/23 Interval History: psych placement Review of Systems denies new c/o Physical Exam 2 Vital Signs: Vital Signs: Last Vital Signs Temp 98.6 F 09/17/23 11:05 Pulse 80 09/17/23 14:50 Resp 20 09/17/23 11:05 BP 133/74 09/17/23 14:50 Pulse Ox 93 09/17/23 11:05 O2 Del Method Room Air 09/17/23 11:05 O2 Flow Rate 2 09/14/23 11:51 BMI result Body Mass Index 20.8 General:Awake this morning, responding to question Resp: CTA bilateral CVS: S1,S2,RRR GI: +BS, NT, no distention Skin: No rash Neuro: motor grossly intact Psych: appropriate affect Objective Data Active Medications Acetaminophen (Acetaminophen 325 Mg Tablet) 650 mg PO Q4H PRN PRN Reason: Pain, Severe (Pain Scale 7-10) Last Admin: 09/14/23 09:10 Dose: 650 mg Documented By: YRAITZA Amlodipine Besylate (Amlodipine Besylate 10 Mg Tablet) 10 mg PO DAILY [facility]; Protocol Last Admin: 09/17/23 08:28 Dose: 10 mg Documented By: REN Ascorbic Acid (Ascorbic Acid 500 Mg Tablet) 2,000 mg PO BEDTIME [facility] Last Admin: 09/16/23 20:43 Dose: 2,000 mg Documented By: LORENZO Bupropion HCl (Bupropion Hcl 75 Mg Tablet) 75 mg PO DAILY [facility] Last Admin: 09/17/23 08:28 Dose: 75 mg Documented By: REN Enoxaparin Sodium (Enoxaparin Sodium 40 Mg/0.4 Ml Syringe) 40 mg SUBCUT Q24H [facility] Last Admin: 09/16/23 20:44 Dose: 40 mg Documented By: LORENZO Fluticasone Propionate (Fluticasone Propionate Nasal 16 Gm [place]) 1 spray NOSTRIL-B BID [facility] Last Admin: 09/17/23 08:29 Dose: 1 spray Documented By: REN Melatonin (Melatonin 3 Mg Tablet) 6 mg PO BEDTIME PRN PRN Reason: Insomnia Last Admin: 09/14/23 21:35 Dose: 6 mg Documented By: KEITH Moxifloxacin HCl (Moxifloxacin Hcl 0.5 % Oph Reina 3 Ml Drpbtl) 1 drop EYE-BOTH BID [facility] Stop: 09/19/23 08:59 Last Admin: 09/17/23 08:29 Dose: 1 drop Documented By: REN Multivitamins/Vitamin C (Multivitamin Tablet) 1 tab PO DAILY [facility] Last Admin: 09/17/23 08:28 Dose: 1 tab Documented By: REN Omeprazole (Omeprazole 20 Mg Capsule.Dr) 20 mg PO DAILY@0630 [facility] Last Admin: 09/17/23 05:35 Dose: Not Given Documented By: CHARLENE Non-Admin Reason: NPO Propranolol HCl (Propranolol Hcl 20 Mg Tablet) 20 mg PO TID [facility]; Protocol Last Admin: 09/17/23 14:50 Dose: 20 mg Documented By: REN Sodium Chloride (0.9 % Sodium Chloride Flush 3 Ml Syringe) 3 ml IVFLUSH QSHIFT [facility] Last Admin: 09/17/23 08:29 Dose: 3 ml Documented By: REN Trimethoprim/Sulfamethoxazole (Sulfamethox/Trimeth 800/160 Tablet) 1 tab PO Q12H [facility] Last Admin: 09/17/23 12:54 Dose: 1 tab Documented By: VONDATEKR Labs 09/17/23 07:09 09/17/23 07:09 Labs: Laboratory Results - last 24 hr 09/17/23 07:09 MCV 87.1 MCH 29.0 MCHC 33.3 RDW 13.6 Plt Count 397 MPV 10.0 Immature Gran % (Auto) 1.1 H Neut % (Auto) 68.5 Lymph % (Auto) 17.9 L [place] % (Auto) 10.0 Eos % (Auto) 2.0 Baso % (Auto) 0.5 Lymph # (Auto) 1.5 [place] # (Auto) 0.8 Eos # (Auto) 0.2 Baso # (Auto) 0.0 Abs Immat Gran (auto) 0.09 H Absolute Neuts (auto) 5.6 Absolute Nucleated RBC 0.000 Nucleated RBC % (auto) 0.0 Anion Gap 12 Estim Creat Clear Calc 65.1 Estimated GFR > 60 Random Glucose 114 Calcium 9.4 D Total Bilirubin 0.2 Direct Bilirubin < 0.2 AST 78 H ALT 136 H Alkaline Phosphatase 125 H Total Protein 5.6 L Albumin 3.0 L Assessment and Plan (1) Odynophagia: Status: Acute Assessment and Plan: 72F PMH htn, adhd, anxiety, depression, presented with agitation, tremors, ataxia Agitation and tremors, initial concern for seritonin syndrome but probably was just delirium. Agitation resolved Periods of unresponsivenesss/Hypoactive state not characteristic of catatonia, with variable response to Ativan, in fact Ativan maybe causing over sedation at this poin. She probably has hypoactive delirium, she's more awake this morning. Psych to follow up dysphagia speech recommends NND1 + thin liquid. elevated lfts's: lft's seems improving ,abd us gyps-Azsowx-lkpqqxmcm liver. Contracted gallbladder and probable small gallbladder wall polyps. hepatitis a,b,c nonreactive GI to reschedule EGD when medically stable. Gi follow outaptient. TWI noted on ECG to check for QTC, no other symptoms, trops negative x 2, seen by cardioloty Echo nl LVEF, no WMA. No further testing at this time hypOkalemia, corrected . Decrease O2, no fever, CXR per my review atelectatis urinary retention, streaight cath PRN UTI--started Ceftriaxone 09/14 Elevated LFTs, etiology unclear ? meds, trending down added heaptitis profile ,abd us. htn--controlled on proparanolol and Norvasc, but presently not taking meds by mouth. Tachycardia--d/t withdrawal from Propranolol while NPO, IV Metoprolol if not taking things by mouth Purulent discharge from right eye and redness--Abx drop dvt prophlyaxis - lovenox code status - full code PT is recommending short term rehab reason for continued hospitalization: awaiting Psych placement Quality Stroke Does the patient have a stroke diagnosis?: No VTE Prior VTE?: No VTE Risk Level:: Medical - moderate - high VTE Device Contraindication: Treatment Not Indicated VTE Drug Contraindication: N/A - Med Ordered
--- NOTE | 2023-09-17 15:36 | P.CNHOSGPS_ITS ---
History of Present Illness Data of Consult Service Date: 09/17/23 Primary Care Provider: Tami Francis MD [facility] Reason for consult: F/U for transfer to [facility] The patient is 72-year-old female with a past history of bipolar type 2, personality disorder NOS and other medical comorbidities admitted for serotonergic syndrome and consequent delirium. The patient was severely seek after antidepressants have to be discontinue, a certain point she was unresponsive, nearly catatonic. Currently, the patient is out of delirium, she is awake and alert but very depressed, despondent with minimal interaction. Also she is medically day condition it since she had been bed bounded for several days. She adamantly denies psychosis, confusion or nallely. At this point, the patient could be transfer to the psychiatric unit for continuation of care. Review of Systems 2 Review of Systems: Yes Unobtainable due to mental status PMFSH Medical History Depression Hypothyroidism ZAC (generalized anxiety disorder) Hypertension ADHD (attention deficit hyperactivity disorder) Functional capacity: independent ambulation (With help) Family History Other No pertinent family history Surgical History H/O thumb surgery H/O cone biopsy of cervix Social History Household Members: Spouse Household Members Other:: And two cats. Housing: House Do you presently have visiting nurse or other home services: No Unable to assess alcohol history related to: Unknown Alcohol intake: never Patient Tobacco Use Status: Tobacco use Unknown Tobacco use type: Cigarette e-Cigarette/Vaping Use: Never Used Second Hand Smoke Exposure: No Substance Use Type: Marijuana Advance Directives: No Advance Directives on File: No service: No Sexual orientation: Straight/Heterosexual Meds Allergies Allergy/AdvReac Type Severity Reaction Status Date / Time No Known Allergies Allergy Verified 08/27/23 10:27 Active Medications: Current Medications Acetaminophen (Acetaminophen 325 Mg Tablet) 650 mg PO Q4H PRN PRN Reason: Pain, Severe (Pain Scale 7-10) Last Admin: 09/14/23 09:10 Dose: 650 mg Amlodipine Besylate (Amlodipine Besylate 10 Mg Tablet) 10 mg PO DAILY [facility]; Protocol Last Admin: 09/17/23 08:28 Dose: 10 mg Ascorbic Acid (Ascorbic Acid 500 Mg Tablet) 2,000 mg PO BEDTIME [facility] Last Admin: 09/16/23 20:43 Dose: 2,000 mg Bupropion HCl (Bupropion Hcl 75 Mg Tablet) 75 mg PO DAILY [facility] Last Admin: 09/17/23 08:28 Dose: 75 mg Enoxaparin Sodium (Enoxaparin Sodium 40 Mg/0.4 Ml Syringe) 40 mg SUBCUT Q24H [facility] Last Admin: 09/16/23 20:44 Dose: 40 mg Fluticasone Propionate (Fluticasone Propionate Nasal 16 Gm [place]) 1 spray NOSTRIL-B BID [facility] Last Admin: 09/17/23 08:29 Dose: 1 spray Melatonin (Melatonin 3 Mg Tablet) 6 mg PO BEDTIME PRN PRN Reason: Insomnia Last Admin: 09/14/23 21:35 Dose: 6 mg Moxifloxacin HCl (Moxifloxacin Hcl 0.5 % Oph Reina 3 Ml Drpbtl) 1 drop EYE-BOTH BID [facility] Stop: 09/19/23 08:59 Last Admin: 09/17/23 08:29 Dose: 1 drop Multivitamins/Vitamin C (Multivitamin Tablet) 1 tab PO DAILY [facility] Last Admin: 09/17/23 08:28 Dose: 1 tab Omeprazole (Omeprazole 20 Mg Capsule.Dr) 20 mg PO DAILY@0630 [facility] Last Admin: 09/17/23 05:35 Dose: Not Given Propranolol HCl (Propranolol Hcl 20 Mg Tablet) 20 mg PO TID [facility]; Protocol Last Admin: 09/17/23 14:50 Dose: 20 mg Sodium Chloride (0.9 % Sodium Chloride Flush 3 Ml Syringe) 3 ml IVFLUSH QSHIFT [facility] Last Admin: 09/17/23 08:29 Dose: 3 ml Trimethoprim/Sulfamethoxazole (Sulfamethox/Trimeth 800/160 Tablet) 1 tab PO Q12H [facility] Last Admin: 09/17/23 12:54 Dose: 1 tab Home Medications Medication Instructions Recorded Confirmed Last Taken Type amlodipine 5 mg tablet 10 mg PO DAILY 10/23/22 08/27/23 10/23/22 History fluticasone propionate 50 1 spray intranasal BID 08/27/23 08/27/23 Unknown History mcg/actuation nasal spray,suspension propranolol 20 mg tablet 20 mg PO BID 08/27/23 08/27/23 Unknown History Results Labs 09/17/23 07:09 09/17/23 07:09 Labs: Laboratory Results - last 24 hr 09/17/23 07:09 MCV 87.1 MCH 29.0 MCHC 33.3 RDW 13.6 Plt Count 397 MPV 10.0 Immature Gran % (Auto) 1.1 H Neut % (Auto) 68.5 Lymph % (Auto) 17.9 L [place] % (Auto) 10.0 Eos % (Auto) 2.0 Baso % (Auto) 0.5 Lymph # (Auto) 1.5 [place] # (Auto) 0.8 Eos # (Auto) 0.2 Baso # (Auto) 0.0 Abs Immat Gran (auto) 0.09 H Absolute Neuts (auto) 5.6 Absolute Nucleated RBC 0.000 Nucleated RBC % (auto) 0.0 Anion Gap 12 Estim Creat Clear Calc 65.1 Estimated GFR > 60 Random Glucose 114 Calcium 9.4 D Total Bilirubin 0.2 Direct Bilirubin < 0.2 AST 78 H ALT 136 H Alkaline Phosphatase 125 H Total Protein 5.6 L Albumin 3.0 L Imaging Radiologist's Impressions: Impressions Abdomen Ultrasound 09/16/23 17:59 IMPRESSION: Normal-appearing liver. Contracted gallbladder and probable small gallbladder wall polyps. 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 She was been medically treated, antidepressants were discontinue and a few days ago it was started on a low dose of Wellbutrin. Plan 1. If patient is medically clear can be transferred to the geriatric psychiatric unit. 2. Continue with Wellbutrin. 3. Reassessment with results. Total time managing care of this patient today: 30 minutes. Physical Exam Vital Signs: Last Vital Signs Temp 98.6 F 09/17/23 11:05 Pulse 80 09/17/23 14:50 Resp 20 09/17/23 11:05 BP 133/74 09/17/23 14:50 Pulse Ox 93 09/17/23 11:05 O2 Del Method Room Air 09/17/23 11:05 O2 Flow Rate 2 09/14/23 11:51 BMI result Body Mass Index 20.8 Neuro Cranial nerves: Yes CN's II-XII intact bilaterally Psych Other: The patient is on hospital gowns, selectively mute, very tired, no evidence of confusion. Her speech is slow minimal, responds to verbal stimuli. Her mood is depressed and her affect is very constricted, newly blunted. Thought process concrete but logical. Thought content denies hallucinations delusions or suicidal ideation. Insight judgment and impulse control currently impaired
[2023-09-17] MEDS: Ascorbic Acid 500 MG TABLET 2000 MG PO (20:08)
[2023-09-17] MEDS: Enoxaparin Sodium 40 MG/0.4 ML SYRINGE SUBCUT (20:08)
--- NOTE | 2023-09-17 23:56 | PC.NURSE ---
PT OOB TO COMMODE WITH 2 ASSIST TO TRY AND VOID UNABLE TO.PT BLADDER SCANNED FOR 578.PT ST.CATHED FOR 550 CC YELLOW URINE.
[2023-09-18 03:26] VITALS: BP 120/61; PULSE 89; RESP 17; TEMP 36.1; O2SAT 95
[2023-09-18] MEDS: Omeprazole 20 MG CAPSULE.DR PO (06:06)
[2023-09-18 07:15] VITALS: BP 150/79; PULSE 81; RESP 18; TEMP 36.2; O2SAT 93
[2023-09-18 11:41] VITALS: BP 145/73; PULSE 87; RESP 18; TEMP 36.3; O2SAT 94
[2023-09-18] MEDS: Dextrose 5 % and 0.9 % NaCl 1,000 ML 100 ML IVCONT ×2 (13:14→22:56)
[2023-09-18] MEDS: Moxifloxacin HCl 0.5 % Oph Sol 3 ML DRPBTL 1 DROP EYE-BOTH (15:23)
[2023-09-18] MEDS: LORazepam 2 MG/ML VIAL 1 MG IVPUSH (15:24)
[2023-09-18 15:32] LABS: Anion Gap 9 (12-20); Blood Urea Nitrogen 22 mg/dL (9-16); Calcium 9.3 mg/dL (8.4-10.2); Carbon Dioxide 27 mmol/L (22-29); Chloride 111 mmol/L (96-108); Creatinine Clr Calc Pharmacy 59.1; Estimated Glomerular Filt Rate > 60; Glucose Random 147 mg/dL (60-115); Potassium 4.1 mmol/L (3.3-5.1); Sodium 143 mmol/L (135-145)
--- NOTE | 2023-09-18 15:37 | HO.PM.IMPN ---
Subjective Subjective Date of Service: 09/18/23 Interval History: possible hypoactive delirum Review of Systems awake but does not answer questions no fever or chills Physical Exam Vital Signs: Vital Signs: Last Vital Signs Temp 97.3 F 09/18/23 11:41 Pulse 87 09/18/23 11:41 Resp 18 09/18/23 11:41 BP 145/73 H 09/18/23 11:41 Pulse Ox 94 09/18/23 11:41 O2 Del Method Room Air 09/18/23 11:41 O2 Flow Rate 2 09/14/23 11:51 BMI result Body Mass Index 20.8 General:Awake this morning, responding to question Resp: CTA bilateral CVS: S1,S2,RRR GI: +BS, NT, no distention Skin: No rash Neuro: motor grossly intact Psych: appropriate affect Objective Data Active Medications Acetaminophen (Acetaminophen 325 Mg Tablet) 650 mg PO Q4H PRN PRN Reason: Pain, Severe (Pain Scale 7-10) Last Admin: 09/14/23 09:10 Dose: 650 mg Documented By: FELICEEMA Amlodipine Besylate (Amlodipine Besylate 10 Mg Tablet) 10 mg PO DAILY [facility]; Protocol Last Admin: 09/18/23 10:58 Dose: Not Given Documented By: ROLDAN Non-Admin Reason: pt catatonic Ascorbic Acid (Ascorbic Acid 500 Mg Tablet) 2,000 mg PO BEDTIME [facility] Last Admin: 09/17/23 20:08 Dose: 2,000 mg Documented By: PENELOPE Bupropion HCl (Bupropion Hcl 75 Mg Tablet) 75 mg PO DAILY [facility] Last Admin: 09/18/23 10:59 Dose: Not Given Documented By: ROLDAN Non-Admin Reason: pt catotonic Enoxaparin Sodium (Enoxaparin Sodium 40 Mg/0.4 Ml Syringe) 40 mg SUBCUT Q24H [facility] Last Admin: 09/17/23 20:08 Dose: 40 mg Documented By: PENELOPE Fluticasone Propionate (Fluticasone Propionate Nasal 16 Gm [place]) 1 spray NOSTRIL-B BID [facility] Last Admin: 09/18/23 11:01 Dose: Not Given Documented By: ROLDAN Non-Admin Reason: pt is not willing Dextrose/Sodium Chloride (D5ns) 1,000 mls @ 100 mls/hr IVCONT .Q10H [facility] Last Admin: 09/18/23 13:14 Dose: 100 mls/hr Documented By: MARCUS Meropenem 1 gm/ Sodium (Chloride) 100 mls @ 200 mls/hr IV Q8H [facility] Last Admin: 09/18/23 15:24 Dose: 200 mls/hr Documented By: ROLDAN Melatonin (Melatonin 3 Mg Tablet) 6 mg PO BEDTIME PRN PRN Reason: Insomnia Last Admin: 09/14/23 21:35 Dose: 6 mg Documented By: KEITH Moxifloxacin HCl (Moxifloxacin Hcl 0.5 % Oph Reina 3 Ml Drpbtl) 1 drop EYE-BOTH BID [facility] Stop: 09/19/23 08:59 Last Admin: 09/18/23 15:23 Dose: 1 drop Documented By: ROLDAN Multivitamins/Vitamin C (Multivitamin Tablet) 1 tab PO DAILY [facility] Last Admin: 09/18/23 10:59 Dose: Not Given Documented By: ROLDAN Non-Admin Reason: pt catatonic Omeprazole (Omeprazole 20 Mg Capsule.Dr) 20 mg PO DAILY@0630 [facility] Last Admin: 09/18/23 06:06 Dose: 20 mg Documented By: PENELOPE Propranolol HCl (Propranolol Hcl 20 Mg Tablet) 20 mg PO TID [facility]; Protocol Last Admin: 09/18/23 15:29 Dose: Not Given Documented By: ROLDAN Non-Admin Reason: catatonic Sodium Chloride (0.9 % Sodium Chloride Flush 3 Ml Syringe) 3 ml IVFLUSH QSHIFT [facility] Last Admin: 09/18/23 15:30 Dose: Not Given Documented By: ROLDAN Non-Estefani Reason: IV Running Labs 09/17/23 07:09 09/18/23 14:23 Labs: Laboratory Results - last 24 hr 09/18/23 14:23 Anion Gap 9 L Estim Creat Clear Calc 59.1 Estimated GFR > 60 Random Glucose 147 H Calcium 9.3 Assessment and Plan (1) Urinary tract infection: Status: Inactive Plan 72F PMH htn, adhd, anxiety, depression, presented with agitation, tremors, ataxia Agitation and tremors, initial concern for seritonin syndrome but probably was just delirium. Agitation resolved Periods of unresponsivenesss/Hypoactive state not characteristic of catatonia, with variable response to Ativan, in fact Ativan maybe causing over sedation at this point. She probably has hypoactive delirium. she is awake but seems like had similar episodes before . bmp seems fine ct head -grossly seems fine ,official reading pending psych suggested to add ativan and neurology eval. dysphagia speech recommends NND1 + thin liquid. elevated lfts's: lft's seems improving ,abd us sciw-[id number]-[id number] liver. Contracted gallbladder and probable small gallbladder wall polyps. hepatitis a,b,c nonreactive . GI to reschedule EGD when medically stable. Gi follow outaptient. TWI noted on ECG to check for QTC, no other symptoms, trops negative x 2, seen by cardioloty Echo nl LVEF, no WMA. No further testing at this time hypOkalemia, corrected . Decrease O2, no fever, CXR per my review atelectatis urinary retention, streaight cath PRN UTI-- urine culture esbl Ceftriaxone 09/14-chnaged to bactrim on 09/16/23 -will change to meropenem since can not take po added Id eval. Elevated LFTs, etiology unclear ? meds, trending down added heaptitis profile ,abd us. htn--controlled on proparanolol and Norvasc, but presently not taking meds by mouth. Tachycardia--d/t withdrawal from Propranolol while NPO, IV Metoprolol if not taking things by mouth Purulent discharge from right eye and redness--Abx drop dvt prophlyaxis - lovenox code status - full code PT is recommending short term rehab reason for continued hospitalization: awaiting Psych placement Quality Stroke Does the patient have a stroke diagnosis?: No VTE Prior VTE?: No VTE Risk Level:: Medical - moderate - high VTE Device Contraindication: Treatment Not Indicated VTE Drug Contraindication: N/A - Med Ordered
[2023-09-18 16:00] VITALS: BP 152/78; PULSE 94; RESP 18; TEMP 36.1; O2SAT 92
--- NOTE | 2023-09-18 16:03 | W.PM.IDCN ---
History of Present Illness Data of Consult Service Date: 09/18/23 Requesting physician: Valentine Mcclendon Primary Care Provider: Tami Francis MD HPI Reason for consult: UTI concern over resistance She presents with delirium and thought to have serotonin syndrome She has had ESBL urine. Urine sensitive to Bactrim. Review of Systems Review of Systems: Yes all other systems are reviewed and are negative PMFSH Past Medical History Medical History (Updated 09/18/23 @ 16:07 by Margot Villegas MD) Urinary tract infection Depression Hypothyroidism ZAC (generalized anxiety disorder) Hypertension ADHD (attention deficit hyperactivity disorder) Functional capacity: independent ambulation (With help) Family History Family History Other No pertinent family history Family history: reviewed and not pertinent Surgical History Surgical History H/O thumb surgery H/O cone biopsy of cervix Social History Social History Household Members: Spouse Household Members Other:: And two cats. Housing: House Do you presently have visiting nurse or other home services: No Unable to assess alcohol history related to: Unknown Alcohol intake: never Patient Tobacco Use Status: Tobacco use Unknown Tobacco use type: Cigarette e-Cigarette/Vaping Use: Never Used Second Hand Smoke Exposure: No Substance Use Type: Marijuana Advance Directives: No Advance Directives on File: No service: No Sexual orientation: Straight/Heterosexual Meds Allergies Allergy/AdvReac Type Severity Reaction Status Date / Time No Known Allergies Allergy Verified 08/27/23 10:27 Active Medications: Current Medications Acetaminophen (Acetaminophen 325 Mg Tablet) 650 mg PO Q4H PRN PRN Reason: Pain, Severe (Pain Scale 7-10) Last Admin: 09/14/23 09:10 Dose: 650 mg Amlodipine Besylate (Amlodipine Besylate 10 Mg Tablet) 10 mg PO DAILY [facility]; Protocol Last Admin: 09/18/23 10:58 Dose: Not Given Ascorbic Acid (Ascorbic Acid 500 Mg Tablet) 2,000 mg PO BEDTIME [facility] Last Admin: 09/17/23 20:08 Dose: 2,000 mg Bupropion HCl (Bupropion Hcl 75 Mg Tablet) 75 mg PO DAILY [facility] Last Admin: 09/18/23 10:59 Dose: Not Given Enoxaparin Sodium (Enoxaparin Sodium 40 Mg/0.4 Ml Syringe) 40 mg SUBCUT Q24H [facility] Last Admin: 09/17/23 20:08 Dose: 40 mg Fluticasone Propionate (Fluticasone Propionate Nasal 16 Gm [place]) 1 spray NOSTRIL-B BID [facility] Last Admin: 09/18/23 11:01 Dose: Not Given Dextrose/Sodium Chloride (D5ns) 1,000 mls @ 100 mls/hr IVCONT .Q10H [facility] Last Admin: 09/18/23 13:14 Dose: 100 mls/hr Meropenem 1 gm/ Sodium (Chloride) 100 mls @ 200 mls/hr IV Q8H [facility] Last Infusion: 09/18/23 15:56 Dose: Infused Melatonin (Melatonin 3 Mg Tablet) 6 mg PO BEDTIME PRN PRN Reason: Insomnia Last Admin: 09/14/23 21:35 Dose: 6 mg Moxifloxacin HCl (Moxifloxacin Hcl 0.5 % Oph Reina 3 Ml Drpbtl) 1 drop EYE-BOTH BID [facility] Stop: 09/19/23 08:59 Last Admin: 09/18/23 15:23 Dose: 1 drop Multivitamins/Vitamin C (Multivitamin Tablet) 1 tab PO DAILY [facility] Last Admin: 09/18/23 10:59 Dose: Not Given Omeprazole (Omeprazole 20 Mg Capsule.Dr) 20 mg PO DAILY@0630 [facility] Last Admin: 09/18/23 06:06 Dose: 20 mg Propranolol HCl (Propranolol Hcl 20 Mg Tablet) 20 mg PO TID [facility]; Protocol Last Admin: 09/18/23 15:29 Dose: Not Given Sodium Chloride (0.9 % Sodium Chloride Flush 3 Ml Syringe) 3 ml IVFLUSH QSHIFT [facility] Last Admin: 09/18/23 15:30 Dose: Not Given Home Medications Medication Instructions Recorded Confirmed Last Taken Type amlodipine 5 mg tablet 10 mg PO DAILY 10/23/22 08/27/23 10/23/22 History fluticasone propionate 50 1 spray intranasal BID 08/27/23 08/27/23 Unknown History mcg/actuation nasal spray,suspension propranolol 20 mg tablet 20 mg PO BID 08/27/23 08/27/23 Unknown History Physical Exam Vital Signs: Vital Signs: Last Vital Signs Temp 97.3 F 09/18/23 11:41 Pulse 87 09/18/23 11:41 Resp 18 09/18/23 11:41 BP 145/73 H 09/18/23 11:41 Pulse Ox 94 09/18/23 11:41 O2 Del Method Room Air 09/18/23 11:41 O2 Flow Rate 2 09/14/23 11:51 BMI result Body Mass Index 20.8 Const: General: cooperative HEENT: Head: Yes normal to inspection Face and sinus: Yes normal facial exam Mouth: Normal oral and palatal mucosa present Teeth and gingiva: dentition normal Eyes: General: appearance normal, both eyes and all related structures Pupils: Equal, round and reactive pupils present Resp: Effort & Inspection: normal respiratory effort Cardio: Rate: regular rate Rhythm: regular rhythm GI: Palpation (GI): Soft to palpation and nontender : General: Yes no CVA tenderness Back/Spine/Pelvis: Back: no CVA tenderness Skin: General skin exam: no rashes or lesions noted Neuro: General: moves all extremities Cranial nerves: Yes Equal, round and reactive pupils present Extrem: General: Yes normal to inspection Psych: Appearance: grossly normal Results Labs 09/17/23 07:09 09/18/23 14:23 Labs: BMP 09/18/23 14:23 Sodium 143 Potassium 4.1 D Chloride 111 H Carbon Dioxide 27 BUN 22 H Creatinine 0.64 Calcium 9.3 Microbiology Microbiology Results: Microbiology 09/13/23 Unknown Urine Catheterized - Straight Catheter Urine Culture - Final Escherichia coli 08/28/23 Unknown Urine Catheterized - Straight Catheter Urine Culture - Final Assessment and Plan (1) Serotonin syndrome: Status: Acute She has probable UTI as well It is ESBL E coli Plan 10 days Bactrim DS bid
--- NOTE | 2023-09-18 16:18 | PM.EVENT ---
Event Note Date of Service: 09/18/23 Event Note: patient still sedated after arrival back from CT so cant take po Bactrim agree IV Merem for now ? 5 days Time Spent With Patient Time: Total time managing care of this patient today ____ minutes.
[2023-09-18 19:48] VITALS: BP 140/71; PULSE 100; RESP 17; TEMP 36.1; O2SAT 95
[2023-09-18] MEDS: Enoxaparin Sodium 40 MG/0.4 ML SYRINGE SUBCUT (20:39)
[2023-09-18 23:29] VITALS: BP 149/74; PULSE 97; RESP 18; TEMP 36.3; O2SAT 94
[2023-09-19] VITALS (7 sets, daily range): BP systolic 91–164; BP diastolic 61–88; PULSE 93–115; RESP 16–19; TEMP 36.1–36.8; O2SAT 92–94
[2023-09-19] MEDS: Dextrose 5 % and 0.9 % NaCl 1,000 ML 100 ML IVCONT ×2 (09:37→18:01)
--- NOTE | 2023-09-19 09:37 | MHC.CM.PN ---
PT MEDICALLY CLEARED TO DC PER BEHAVIORAL HEALTH NOTES, PT WILL RETURN TO S1 TO CONTINUE MH TREATMENT
--- NOTE | 2023-09-19 12:07 | P.CNNE_ITS ---
History of Present Illness Data of Consult Service Date: 09/19/23 Primary Care Provider: Tami Francis MD HPI Reason for consult: Encephalopathy 72 years old woman admitted hospital with multiple symptoms was diagnosed with probably UTI related encephalopathy. At the same time she had significant underlying psychiatric disease with major depression and recently some of her medicines were changed. There was initial concern of serotonin syndrome. At this time she was not communicating of this consultation was requested. There was no evidence of any visible seizure. Review of Systems 2 Review of Systems: Not communicating [facility] Past Medical History Medical History (Updated 09/18/23 @ 16:07 by Margot Villegas MD) Urinary tract infection Depression Hypothyroidism ZAC (generalized anxiety disorder) Hypertension ADHD (attention deficit hyperactivity disorder) Functional capacity: independent ambulation (With help) Family History Family History Other No pertinent family history Family history: reviewed and not pertinent Surgical History Surgical History H/O thumb surgery H/O cone biopsy of cervix Social History Social History Household Members: Spouse Household Members Other:: And two cats. Housing: House Do you presently have visiting nurse or other home services: No Unable to assess alcohol history related to: Unknown Alcohol intake: never Patient Tobacco Use Status: Tobacco use Unknown Tobacco use type: Cigarette e-Cigarette/Vaping Use: Never Used Second Hand Smoke Exposure: No Substance Use Type: Marijuana Advance Directives: No Advance Directives on File: No service: No Sexual orientation: Straight/Heterosexual Meds Allergies Allergy/AdvReac Type Severity Reaction Status Date / Time No Known Allergies Allergy Verified 08/27/23 10:27 Active Medications: Current Medications Acetaminophen (Acetaminophen 325 Mg Tablet) 650 mg PO Q4H PRN PRN Reason: Pain, Severe (Pain Scale 7-10) Last Admin: 09/14/23 09:10 Dose: 650 mg Amlodipine Besylate (Amlodipine Besylate 10 Mg Tablet) 10 mg PO DAILY [facility]; Protocol Last Admin: 09/19/23 10:43 Dose: Not Given Ascorbic Acid (Ascorbic Acid 500 Mg Tablet) 2,000 mg PO BEDTIME [facility] Last Admin: 09/18/23 20:42 Dose: Not Given Bupropion HCl (Bupropion Hcl 75 Mg Tablet) 75 mg PO DAILY [facility] Last Admin: 09/19/23 10:43 Dose: Not Given Enoxaparin Sodium (Enoxaparin Sodium 40 Mg/0.4 Ml Syringe) 40 mg SUBCUT Q24H [facility] Last Admin: 09/18/23 20:39 Dose: 40 mg Fluticasone Propionate (Fluticasone Propionate Nasal 16 Gm [place]) 1 spray NOSTRIL-B BID [facility] Last Admin: 09/19/23 09:36 Dose: Not Given Dextrose/Sodium Chloride (D5ns) 1,000 mls @ 100 mls/hr IVCONT .Q10H [facility] Last Admin: 09/19/23 09:37 Dose: 100 mls/hr Meropenem 1 gm/ Sodium (Chloride) 100 mls @ 200 mls/hr IV Q8H [facility] Last Infusion: 09/19/23 05:27 Dose: Infused Melatonin (Melatonin 3 Mg Tablet) 6 mg PO BEDTIME PRN PRN Reason: Insomnia Last Admin: 09/14/23 21:35 Dose: 6 mg Multivitamins/Vitamin C (Multivitamin Tablet) 1 tab PO DAILY [facility] Last Admin: 09/19/23 10:43 Dose: Not Given Omeprazole (Omeprazole 20 Mg Capsule.Dr) 20 mg PO DAILY@0630 [facility] Last Admin: 09/19/23 04:55 Dose: Not Given Propranolol HCl (Propranolol Hcl 20 Mg Tablet) 20 mg PO TID [facility]; Protocol Last Admin: 09/19/23 10:43 Dose: Not Given Sodium Chloride (0.9 % Sodium Chloride Flush 3 Ml Syringe) 3 ml IVFLUSH QSHIFT [facility] Last Admin: 09/19/23 09:05 Dose: Not Given Home Medications Medication Instructions Recorded Confirmed Last Taken Type amlodipine 5 mg tablet 10 mg PO DAILY 10/23/22 08/27/23 10/23/22 History fluticasone propionate 50 1 spray intranasal BID 08/27/23 08/27/23 Unknown History mcg/actuation nasal spray,suspension propranolol 20 mg tablet 20 mg PO BID 08/27/23 08/27/23 Unknown History Physical Exam 2 Vital Signs: Vital Signs: Last Vital Signs Temp 97.6 F 09/19/23 07:26 Pulse 93 09/19/23 07:26 Resp 16 09/19/23 07:26 BP 137/80 09/19/23 07:26 Pulse Ox 93 09/19/23 07:26 O2 Del Method Room Air 09/19/23 07:26 O2 Flow Rate 2 09/14/23 11:51 BMI result Body Mass Index 20.8 Neuro: Other: Alert and awake eyes widely open staring in space without any movement of eyes or pupil or any other twitches. When I blue some air on her eyes she blinked probably. Face was symmetrical. There was no abnormal movement other than sustained extended posture. Deep tendon revealed reflexes were trace with flexor plantars. Results Labs 09/17/23 07:09 09/18/23 14:23 Labs: BMP 09/18/23 14:23 Sodium 143 Potassium 4.1 D Chloride 111 H Carbon Dioxide 27 BUN 22 H Creatinine 0.[address] did not reveal any significant abnormality. Microbiology Microbiology Results: Microbiology 09/13/23 Unknown Urine Catheterized - Straight Catheter Urine Culture - Final Escherichia coli 08/28/23 Unknown Urine Catheterized - Straight Catheter Urine Culture - Final Assessment and Plan (1) Organic catatonia: Status: Acute 72 years old woman with underlying significant psychiatric history exposure to multiple psychotropic medicines recent UTI and encephalopathy presently is in a catatonic state. This is a somewhat difficult condition to treat. I recommend trial of benzodiazepine and if that would not work, ECT. Procedures Date of Service Date of Service: 09/19/23
--- NOTE | 2023-09-19 12:08 | P.PNIM_ITS ---
Subjective Subjective Date of Service: 09/19/23 Interval History: possible hypoactive delirum Review of Systems as per staff talk few words this franklinnin seems swake , at bedside -he said he could able to give some po earlier . does not answer any question currently Physical Exam 2 Vital Signs: Vital Signs: Last Vital Signs Temp 97.6 F 09/19/23 07:26 Pulse 93 09/19/23 07:26 Resp 16 09/19/23 07:26 BP 137/80 09/19/23 07:26 Pulse Ox 93 09/19/23 07:26 O2 Del Method Room Air 09/19/23 07:26 O2 Flow Rate 2 09/14/23 11:51 BMI result Body Mass Index 20.8 General:Awake this morning, responding to question Resp: CTA bilateral CVS: S1,S2,RRR GI: +BS, NT, no distention Skin: No rash Neuro: motor grossly intact Psych: appropriate affect Objective Data Active Medications Acetaminophen (Acetaminophen 325 Mg Tablet) 650 mg PO Q4H PRN PRN Reason: Pain, Severe (Pain Scale 7-10) Last Admin: 09/14/23 09:10 Dose: 650 mg Documented By: YARITZA Amlodipine Besylate (Amlodipine Besylate 10 Mg Tablet) 10 mg PO DAILY [facility]; Protocol Last Admin: 09/19/23 10:43 Dose: Not Given Documented By: JEFFERSON Non-Admin Reason: Patient Condition Contraindication Ascorbic Acid (Ascorbic Acid 500 Mg Tablet) 2,000 mg PO BEDTIME [facility] Last Admin: 09/18/23 20:42 Dose: Not Given Documented By: THUY Non-Admin Reason: Patient Refused Bupropion HCl (Bupropion Hcl 75 Mg Tablet) 75 mg PO DAILY [facility] Last Admin: 09/19/23 10:43 Dose: Not Given Documented By: JEFFERSON Non-Admin Reason: Patient Condition Contraindication Enoxaparin Sodium (Enoxaparin Sodium 40 Mg/0.4 Ml Syringe) 40 mg SUBCUT Q24H [facility] Last Admin: 09/18/23 20:39 Dose: 40 mg Documented By: THUY Fluticasone Propionate (Fluticasone Propionate Nasal 16 Gm [place]) 1 spray NOSTRIL-B BID [facility] Last Admin: 09/19/23 09:36 Dose: Not Given Documented By: HARIKA Non-Admin Reason: Patient Refused Dextrose/Sodium Chloride (D5ns) 1,000 mls @ 100 mls/hr IVCONT .Q10H [facility] Last Admin: 09/19/23 09:37 Dose: 100 mls/hr Documented By: HARIKA Meropenem 1 gm/ Sodium (Chloride) 100 mls @ 200 mls/hr IV Q8H [facility] Last Infusion: 09/19/23 05:27 Dose: Infused Documented By: THUY Melatonin (Melatonin 3 Mg Tablet) 6 mg PO BEDTIME PRN PRN Reason: Insomnia Last Admin: 09/14/23 21:35 Dose: 6 mg Documented By: KEITH Multivitamins/Vitamin C (Multivitamin Tablet) 1 tab PO DAILY [facility] Last Admin: 09/19/23 10:43 Dose: Not Given Documented By: JEFFERSON Non-Admin Reason: Patient Condition Contraindication Omeprazole (Omeprazole 20 Mg Capsule.) 20 mg PO DAILY@0630 [facility] Last Admin: 09/19/23 04:55 Dose: Not Given Documented By: THUY Non-Admin Reason: Patient Refused Propranolol HCl (Propranolol Hcl 20 Mg Tablet) 20 mg PO TID [facility]; Protocol Last Admin: 09/19/23 10:43 Dose: Not Given Documented By: JEFFERSON Non-Admin Reason: Patient Condition Contraindication Sodium Chloride (0.9 % Sodium Chloride Flush 3 Ml Syringe) 3 ml IVFLUSH QSHIFT [facility] Last Admin: 09/19/23 09:05 Dose: Not Given Documented By: HARIKA Non-Admin Reason: IV Running Labs 09/17/23 07:09 09/18/23 14:23 Labs: Laboratory Results - last 24 hr 09/18/23 14:23 Anion Gap 9 L Estim Creat Clear Calc 59.1 Estimated GFR > 60 Random Glucose 147 H Calcium 9.3 Assessment and Plan (1) Odynophagia: Status: Acute Plan 72F PMH htn, adhd, anxiety, depression, presented with agitation, tremors, ataxia Agitation and tremors, initial concern for seritonin syndrome but probably was just delirium. Agitation resolved Periods of unresponsivenesss/Hypoactive state not characteristic of catatonia, with variable response to Ativan, in fact Ativan maybe causing over sedation at this point. She probably has hypoactive delirium. she is awake ct head -grossly seems fine. d/w psych -unclear if above is related to psych meds , requested neurology eval-noted and psych discussed above with patient's . dysphagia speech recommends NND1 + thin liquid. elevated lfts's: lft's seems improving ,abd us onqh-Kcmpzj-fqwpjtutu liver. Contracted gallbladder and probable small gallbladder wall polyps. hepatitis a,b,c nonreactive . GI to reschedule EGD when medically stable. Gi follow outaptient. TWI noted on ECG to check for QTC, no other symptoms, trops negative x 2, seen by cardioloty Echo nl LVEF, no WMA. No further testing at this time hypOkalemia, corrected . Decrease O2, no fever, CXR per my review atelectatis urinary retention, streaight cath PRN UTI-- urine culture esbl Ceftriaxone 09/14-chnaged to bactrim on 09/16/23 -will change to meropenem since can not take po Id eval noted -suggested meropenem for 5 days . htn--controlled on proparanolol and Norvasc, but presently not taking meds by mouth. Purulent discharge from right eye and redness--improved ,Abx drop. dvt prophlyaxis - lovenox code status - full code PT is recommending short term rehab reason for continued hospitalization: awaiting Psych placement Quality Stroke Does the patient have a stroke diagnosis?: No VTE Prior VTE?: No VTE Risk Level:: Medical - moderate - high VTE Device Contraindication: Treatment Not Indicated VTE Drug Contraindication: N/A - Med Ordered
--- NOTE | 2023-09-19 14:20 | HO.HSGERICON ---
History of Present Illness Data of Consult Service Date: 09/19/23 Primary Care Provider: Tami Francis MD [facility] Reason for consult: Follow-up, assessment of catatonic symptoms The patient is a 72-year-old male with history of bipolar type 2, presently disorder and more Psychiatry except admitted for certain areas syndrome who was on delirium for several days. Currently she remains with intermittent status, catatonic like symptoms. Neurology has seen him and it seems that it is catatonia. The patient was completed responsive on treatment. The case was discussed with the primary team and her . At this moment the patient has failed for benzodiazepines and most likely we need to do ECT. We will discuss the case with Anesthesiology since she had a bad reaction of ECT last time that she had it. [facility] Medical History (Updated 09/18/23 @ 16:07 by Margot Villegas MD) Urinary tract infection Depression Hypothyroidism ZAC (generalized anxiety disorder) Hypertension ADHD (attention deficit hyperactivity disorder) Functional capacity: independent ambulation (With help) Family History Other No pertinent family history Surgical History H/O thumb surgery H/O cone biopsy of cervix Social History Household Members: Spouse Household Members Other:: And two cats. Housing: House Do you presently have visiting nurse or other home services: No Unable to assess alcohol history related to: Unknown Alcohol intake: never Patient Tobacco Use Status: Tobacco use Unknown Tobacco use type: Cigarette e-Cigarette/Vaping Use: Never Used Second Hand Smoke Exposure: No Substance Use Type: Marijuana Advance Directives: No Advance Directives on File: No service: No Sexual orientation: Straight/Heterosexual Meds Allergies Allergy/AdvReac Type Severity Reaction Status Date / Time No Known Allergies Allergy Verified 08/27/23 10:27 Active Medications: Current Medications Acetaminophen (Acetaminophen 325 Mg Tablet) 650 mg PO Q4H PRN PRN Reason: Pain, Severe (Pain Scale 7-10) Last Admin: 09/14/23 09:10 Dose: 650 mg Amlodipine Besylate (Amlodipine Besylate 10 Mg Tablet) 10 mg PO DAILY [facility]; Protocol Last Admin: 09/19/23 10:43 Dose: Not Given Ascorbic Acid (Ascorbic Acid 500 Mg Tablet) 2,000 mg PO BEDTIME [facility] Last Admin: 09/18/23 20:42 Dose: Not Given Bupropion HCl (Bupropion Hcl 75 Mg Tablet) 75 mg PO DAILY [facility] Last Admin: 09/19/23 10:43 Dose: Not Given Enoxaparin Sodium (Enoxaparin Sodium 40 Mg/0.4 Ml Syringe) 40 mg SUBCUT Q24H [facility] Last Admin: 09/18/23 20:39 Dose: 40 mg Fluticasone Propionate (Fluticasone Propionate Nasal 16 Gm [place]) 1 spray NOSTRIL-B BID [facility] Last Admin: 09/19/23 09:36 Dose: Not Given Dextrose/Sodium Chloride (D5ns) 1,000 mls @ 100 mls/hr IVCONT .Q10H [facility] Last Admin: 09/19/23 09:37 Dose: 100 mls/hr Meropenem 1 gm/ Sodium (Chloride) 100 mls @ 200 mls/hr IV Q8H [facility] Last Infusion: 09/19/23 14:07 Dose: Infused Melatonin (Melatonin 3 Mg Tablet) 6 mg PO BEDTIME PRN PRN Reason: Insomnia Last Admin: 09/14/23 21:35 Dose: 6 mg Multivitamins/Vitamin C (Multivitamin Tablet) 1 tab PO DAILY [facility] Last Admin: 09/19/23 10:43 Dose: Not Given Omeprazole (Omeprazole 20 Mg Capsule.Dr) 20 mg PO DAILY@0630 [facility] Last Admin: 09/19/23 04:55 Dose: Not Given Propranolol HCl (Propranolol Hcl 20 Mg Tablet) 20 mg PO TID [facility]; Protocol Last Admin: 09/19/23 10:43 Dose: Not Given Sodium Chloride (0.9 % Sodium Chloride Flush 3 Ml Syringe) 3 ml IVFLUSH QSHIFT [facility] Last Admin: 09/19/23 09:05 Dose: Not Given Home Medications Medication Instructions Recorded Confirmed Last Taken Type amlodipine 5 mg tablet 10 mg PO DAILY 10/23/22 08/27/23 10/23/22 History fluticasone propionate 50 1 spray intranasal BID 08/27/23 08/27/23 Unknown History mcg/actuation nasal spray,suspension propranolol 20 mg tablet 20 mg PO BID 08/27/23 08/27/23 Unknown History Results Labs 09/17/23 07:09 11/03/23 14:23 Labs: Laboratory Results - last 24 hr 09/18/23 14:23 Anion Gap 9 L Estim Creat Clear Calc 59.1 Estimated GFR > 60 Random Glucose 147 H Calcium 9.3 Imaging Radiologist's Impressions: Impressions Head CT 09/18/23 15:18 IMPRESSION : No acute intracranial pathology. Assessment and Plan (1) Personality disorder: Status: Acute (2) Organic catatonia: Status: Acute Plan Elderly female, , with a long history of mood symptoms, personality disorder, with several trials of antidepressant admitted for certain in early stone altered mental status currently with catatonic symptoms, reassess by Urology. Plan 1. Case discussed with primary team and her at this moment the only option that we have for catatonic like symptoms is ECT even though that she had a bad reaction. 2. We will discuss the case with Anesthesiology and come up with a treatment plan. 3. The case was also discussed with Dr. Ben reyes who is the primary psychiatrist we discussed López on weekdays. 4. Reassessment as demand Total time managing care of this patient today: 30 minutes. Physical Exam Vital Signs: Last Vital Signs Temp 97.2 F 09/19/23 11:48 Pulse 98 09/19/23 11:48 Resp 18 09/19/23 11:48 BP 164/88 H 09/19/23 11:48 Pulse Ox 92 09/19/23 11:48 O2 Del Method Room Air 09/19/23 11:48 O2 Flow Rate 2 09/14/23 11:51 BMI result Body Mass Index 20.8 Neuro Cranial nerves: Yes CN's II-XII intact bilaterally Psych Other: The patient is on hospital gowns, lying on her bed, completely unresponsive. Her eyes remains open and she is unable to respond to verbal stimuli. There is no evidence of waxy flexibility but she was reassessed by Neurology. Moods unable to assess, affect blunted, currently unresponsive insight judgment impulse control unable to assess
--- NOTE | 2023-09-19 15:45 | PC.NURSE ---
Assumed care of pt at 06:45. Pt was responsive to voice with morning assessment. Pt was able to briefly answer questions with one word yes or no replies. Pt refused all AM medication, aware. Since approximately 0845 pt opens eyes to voice but has flat affect and will not answer questions when prompted. Pt was able to stand pivot to chair this AM with 2A. Pt refused breakfast and lunch, takes sips of water when encouraged. At noon pt was helped to bedside commode with 2A pt was unable to void, pt was bladder scanned for 522, MD Anderson made aware, pt was straight cathed for 600ML using sterile technique, pt tolerated well. All safety measures in place, pt being turned and repositioned in bed Q2 hours and as needed.
[2023-09-19] MEDS: Enoxaparin Sodium 40 MG/0.4 ML SYRINGE SUBCUT (19:29)
[2023-09-20] VITALS (10 sets, daily range): BP systolic 135–186; BP diastolic 70–90; PULSE 90–99; RESP 16–18; TEMP 36–36.7; O2SAT 92–96
[2023-09-20] MEDS: Dextrose 5 % and 0.9 % NaCl 1,000 ML 100 ML IVCONT ×2 (00:14→09:56)
--- NOTE | 2023-09-20 12:25 | HO.PM.IMPN ---
Subjective Subjective Date of Service: 09/20/23 Interval History: possible hypoactive delirum possible catatonia Review of Systems awake but does not answer questions no fever or chills Physical Exam Vital Signs: Vital Signs: Last Vital Signs Temp 97.0 F 09/20/23 11:25 Pulse 94 09/20/23 11:25 Resp 18 09/20/23 11:25 BP 170/85 H 09/20/23 11:25 Pulse Ox 93 09/20/23 11:25 O2 Del Method Room Air 09/20/23 11:25 O2 Flow Rate 2 09/14/23 11:51 BMI result Body Mass Index 20.8 General:Awake this morning, responding to question Resp: CTA bilateral CVS: S1,S2,RRR GI: +BS, NT, no distention Skin: No rash Neuro: motor grossly intact Psych: appropriate affect Objective Data Active Medications Acetaminophen (Acetaminophen 325 Mg Tablet) 650 mg PO Q4H PRN PRN Reason: Pain, Severe (Pain Scale 7-10) Last Admin: 09/14/23 09:10 Dose: 650 mg Documented By: YARITZA Amlodipine Besylate (Amlodipine Besylate 10 Mg Tablet) 10 mg PO DAILY [facility]; Protocol Last Admin: 09/20/23 08:58 Dose: Not Given Documented By: HARIKA Non-Admin Reason: Patient Refused Ascorbic Acid (Ascorbic Acid 500 Mg Tablet) 2,000 mg PO BEDTIME ON [facility] OF [facility] Last Admin: 09/19/23 19:30 Dose: Not Given Documented By: THUY Non-Admin Reason: Patient Refused Bupropion HCl (Bupropion Hcl 75 Mg Tablet) 75 mg PO DAILY [facility] Last Admin: 09/20/23 08:58 Dose: Not Given Documented By: HARIKA Non-Admin Reason: Patient Refused Enoxaparin Sodium (Enoxaparin Sodium 40 Mg/0.4 Ml Syringe) 40 mg SUBCUT Q24H [facility] Last Admin: 09/19/23 19:29 Dose: 40 mg Documented By: THUY Fluticasone Propionate (Fluticasone Propionate Nasal 16 Gm [place]) 1 spray NOSTRIL-B BID ON [facility] Last Admin: 09/20/23 08:58 Dose: Not Given Documented By: HARIKA Non-Admin Reason: Patient Refused Meropenem 1 gm/ Sodium (Chloride) 100 mls @ 200 mls/hr IV Q8H [facility] Last Infusion: 09/20/23 06:05 Dose: Infused Documented By: THUY Melatonin (Melatonin 3 Mg Tablet) 6 mg PO BEDTIME PRN PRN Reason: Insomnia Last Admin: 09/14/23 21:35 Dose: 6 mg Documented By: KEITH Multivitamins/Vitamin C (Multivitamin Tablet) 1 tab PO DAILY [facility] Last Admin: 09/20/23 08:59 Dose: Not Given Documented By: HARIKA Non-Admin Reason: Patient Refused Omeprazole (Omeprazole 20 Mg Capsule.) 20 mg PO DAILY@0630 [facility] Last Admin: 09/20/23 05:32 Dose: Not Given Documented By: THUY Non-Admin Reason: Patient Refused Propranolol HCl (Propranolol Hcl 20 Mg Tablet) 20 mg PO TID ON [facility]; Protocol Last Admin: 09/20/23 08:59 Dose: Not Given Documented By: HARIKA Non-Admin Reason: Patient Refused Sodium Chloride (0.9 % Sodium Chloride Flush 3 Ml Syringe) 3 ml IVFLUSH QSHIFT ON [facility] Last Admin: 09/20/23 08:12 Dose: Not Given Documented By: HARIKA Non-Admin Reason: IV Running Labs 09/17/23 07:09 09/18/23 14:23 Assessment and Plan (1) Odynophagia: Status: Acute Plan 72F PMH htn, adhd, anxiety, depression, presented with agitation, tremors, ataxia Agitation and tremors, initial concern for seritonin syndrome but probably was just delirium. Agitation resolved Periods of unresponsivenesss/Hypoactive state not characteristic of catatonia, with variable response to Ativan, in fact Ativan maybe causing over sedation at this point. She probably has hypoactive delirium. she is awake but seems like had similar episodes before . bmp seems fine ct head -grossly seems fine ,official reading pending psych suggested to add ativan and neurology eval-possible catatonia symptoms -psych will d/w her further plan. dysphagia speech recommends NND1 + thin liquid. elevated lfts's: lft's seems improving ,abd us nsfw-Bzotnc-zefwohiva liver. Contracted gallbladder and probable small gallbladder wall polyps. hepatitis a,b,c nonreactive . GI to reschedule EGD when medically stable. Gi follow outaptient. TWI noted on ECG to check for QTC, no other symptoms, trops negative x 2, seen by cardioloty Echo nl LVEF, no WMA. No further testing at this time hypOkalemia, corrected . Decrease O2, no fever, CXR per my review atelectatis urinary retention, streaight cath PRN UTI-- urine culture esbl Ceftriaxone 09/14-chnaged to bactrim on 09/16/23 -will change to meropenem since can not take po added Id eval. Elevated LFTs, etiology unclear ? meds, trending down added heaptitis profile ,abd us. htn--controlled on proparanolol and Norvasc, but presently not taking meds by mouth. Tachycardia--d/t withdrawal from Propranolol while NPO, IV Metoprolol if not taking things by mouth Purulent discharge from right eye and redness--Abx drop dvt prophlyaxis - lovenox code status - full code PT is recommending short term rehab reason for continued hospitalization: awaiting Psych placement Quality Stroke Does the patient have a stroke diagnosis?: No VTE Prior VTE?: No VTE Risk Level:: Medical - moderate - high VTE Device Contraindication: Treatment Not Indicated VTE Drug Contraindication: N/A - Med Ordered
[2023-09-20] MEDS: hydrALAZINE HCl 20 MG/ML VIAL 10 MG IVPUSH (12:41)
--- NOTE | 2023-09-20 12:46 | PC.NURSE ---
Addendum entered by Shagufta Sorto RN 09/20/23 13:44: BP recheck at 1345 162/70, MD Mcclendon aware. Original Note: Pt hypertensive, new orders for PRN hydralazine IVP ordered by MD Mcclendon. BP 186/90 before dose given.
[2023-09-20] MEDS: Dextrose 5 % and 0.9 % NaCl 1,000 ML 80 ML IVCONT (12:50)
[2023-09-20] MEDS: Dextrose 5 % and Lactated Ring 1,000 ML 80 ML IVCONT (14:52)
[2023-09-20] MEDS: ondansetron HCL 4 MG/2 ML VIAL IVPUSH (20:26)
[2023-09-20] MEDS: Enoxaparin Sodium 40 MG/0.4 ML SYRINGE SUBCUT (20:29)
[2023-09-21 03:15] VITALS: BP 169/85; PULSE 95; RESP 18; TEMP 36.8; O2SAT 95
[2023-09-21] MEDS: Dextrose 5 % and Lactated Ring 1,000 ML 80 ML IVCONT ×2 (04:04→17:58)
[2023-09-21 06:03] LABS: Anion Gap 9 (12-20); Blood Urea Nitrogen 7 mg/dL (9-16); Calcium 9.9 mg/dL (8.4-10.2); Carbon Dioxide 27 mmol/L (22-29); Chloride 109 mmol/L (96-108); Estimated Glomerular Filt Rate > 60; Glucose Random 132 mg/dL (60-115); Potassium 3.4 mmol/L (3.3-5.1); Sodium 142 mmol/L (135-145)
[2023-09-21 07:09] VITALS: BP 160/69; PULSE 74; RESP 18; TEMP 36.5; O2SAT 93
--- NOTE | 2023-09-21 10:30 | P.CNPS_ITS ---
History of Present Illness Date of Service: Chief Complaint: severe depression Sources of Information: patient interviewed Additional Sources of Information: Case reviewed with and hospitalist HPI Narrative: Patient is a 72-year-old female currently being treated for UTI with recent diagnosis of serotonin syndrome periods of delirium and the what appeared to be catatonia. Neurology did not see any cause for further workup. MRI and EEG completed. Patient today became more alert with much clear sensorium. She quite depressed experiencing hopelessness helplessness fears that she will never get better. She did express thoughts that time she wishes she were could not state that she would not try to hurt herself although she has history of severe depression she is not made a suicide attempt Past Psychiatric History: -Pt sees Dr. Shearer in OP setting recent hospitalization at the [facility] Has had often on relapses over the past year and half -Remote hx of IPLOC 12 yrs ago, recent admissions at [facility] since 2020 with at least 4 admissions in the last 2 years Patient is placed on pureed diet Personal & Social History: Lives with her son [facility] Medical History (Updated 09/21/23 @ 21:27 by Yovany Shearer MD) Urinary tract infection Depression Hypothyroidism ZAC (generalized anxiety disorder) Hypertension ADHD (attention deficit hyperactivity disorder) Surgical History H/O thumb surgery H/O cone biopsy of cervix Family History: Bipolar disorder Social History: The patient is 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 she does occasionally smoke marijuana Trauma History: NA Diagnostics Vital Signs (24Hr): Vital Signs - 24 hr 09/20/23 11:25 09/20/23 12:45 09/20/23 13:42 Temperature 97.0 F Pulse Rate 94 90 Respiratory Rate 18 Blood Pressure 170/85 H 186/90 H 162/70 H Pulse Oximetry 93 Oxygen Delivery Method Room Air 09/20/23 15:12 09/20/23 20:00 09/20/23 23:28 Temperature 98.1 F 96.8 F 98 F Pulse Rate 99 90 90 Respiratory Rate 16 16 17 Blood Pressure 135/70 154/78 H 170/82 H Pulse Oximetry 93 96 95 Oxygen Delivery Method Room Air Room Air Room Air 09/21/23 03:15 09/21/23 07:09 Temperature 98.3 F 97.7 F Pulse Rate 95 74 Respiratory Rate 18 18 Blood Pressure 169/85 H 160/69 H Pulse Oximetry 95 93 Oxygen Delivery Method Room Air Room Air BMI result Body Mass Index 20.8 Labs 09/17/23 07:09 09/21/23 05:27 Labs: Laboratory Results - last 48 hr 09/21/23 05:27 Hold Purple Top SEE NOTE Sodium 142 Potassium 3.4 Chloride 109 H Carbon Dioxide 27 Anion Gap 9 L BUN 7 L Creatinine 0.60 Estim Creat Clear Calc 63.0 Estimated GFR > 60 Random Glucose 132 H Calcium 9.9 D Imaging Radiology Impressions: ITS Impressions Brain MRI 09/01/23 12:35 IMPRESSION: 1. No acute infarct or other acute intracranial abnormality 2. Moderate chronic microangiopathy Chest X-Ray 09/02/23 10:20 IMPRESSION: Unremarkable examination. Barium Swallow X-Ray 09/03/23 13:56 IMPRESSION: Somewhat limited exam as discussed. 1) Small amount of subglottic aspiration of thick barium noted on first swallow. 2) Irregular mucosal pattern of the superior esophagus suggestive of erosive esophagitis. Given preference of the superior one third of the esophagus, Ann esophagitis (thrush) should be strongly considered. Direct visualization with endoscopy is recommended. Would also recommend direct visualization of the posterior oropharynx to assess for classic plaques of Ann. 3) Marked esophageal dysmotility. Small type I hiatus hernia. Cannot well assess for reflux. 4. Somewhat delayed opening of the LES, suggesting a mild component of achalasia. This procedures performed by French Wheeler PA-C, and supervised by Dr. Webster. The care team was made aware of the findings by French Wheeler PA-C. Modified Barium Swallow 09/04/23 14:25 IMPRESSION: Unremarkable modified barium swallow. Correlate with speech therapy report. Chest X-Ray 09/07/23 18:32 IMPRESSION: NGT tip project in left upper quadrant of abdomen with sideport at or just below expected level of GE junction. Left basilar opacity may represent atelectasis and/or pneumonia. Chest X-Ray 09/13/23 09:25 IMPRESSION: Left basilar atelectasis/infiltrate. Abdomen Ultrasound 09/16/23 17:59 IMPRESSION: Normal-appearing liver. Contracted gallbladder and probable small gallbladder wall polyps. Head CT 09/18/23 15:18 IMPRESSION : No acute intracranial pathology. Mental Status Exam Mental Status Exam Narrative: Patient's is seen in her hospital room with her . Her mood is depressed she is hopeless helpless thoughts she would be better off unable to clearly state she would not try and harm herself. No hallucinations or delusional material patient is alert knows where she is year month she did have a panic attack with anxiety increase tremor no HI quite fearful of future and her medical status Medications Medications Current Medications Acetaminophen (Acetaminophen 325 Mg Tablet) 650 mg PO Q4H PRN PRN Reason: Pain, Severe (Pain Scale 7-10) Last Admin: 09/14/23 09:10 Dose: 650 mg Amlodipine Besylate (Amlodipine Besylate 10 Mg Tablet) 10 mg PO DAILY [facility]; Protocol Last Admin: 09/20/23 08:58 Dose: Not Given Ascorbic Acid (Ascorbic Acid 500 Mg Tablet) 2,000 mg PO BEDTIME [facility] Last Admin: 09/20/23 20:17 Dose: Not Given Bupropion HCl (Bupropion Hcl 75 Mg Tablet) 75 mg PO DAILY [facility] Last Admin: 09/20/23 08:58 Dose: Not Given Enoxaparin Sodium (Enoxaparin Sodium 40 Mg/0.4 Ml Syringe) 40 mg SUBCUT Q24H [facility] Last Admin: 09/20/23 20:29 Dose: 40 mg Fluticasone Propionate (Fluticasone Propionate Nasal 16 Gm [place]) 1 spray NOSTRIL-B BID [facility] Last Admin: 09/20/23 20:18 Dose: Not Given Hydralazine HCl (Hydralazine Hcl 20 Mg/Ml Vial) 10 mg IVPUSH Q6H PRN; Protocol PRN Reason: htn Last Admin: 09/20/23 12:41 Dose: 10 mg Meropenem 1 gm/ Sodium (Chloride) 100 mls @ 200 mls/hr IV Q8H [facility] Last Infusion: 09/21/23 06:05 Dose: Infused Dextrose/Lactated Ringer's (D5lr) 1,000 mls @ 80 mls/hr IVCONT .[id number] [facility] Last Admin: 09/21/23 04:04 Dose: 80 mls/hr Melatonin (Melatonin 3 Mg Tablet) 6 mg PO BEDTIME PRN PRN Reason: Insomnia Last Admin: 09/14/23 21:35 Dose: 6 mg Multivitamins/Vitamin C (Multivitamin Tablet) 1 tab PO DAILY [facility] Last Admin: 09/20/23 08:59 Dose: Not Given Omeprazole (Omeprazole 20 Mg Capsule.Dr) 20 mg PO DAILY@0630 [facility] Last Admin: 09/21/23 05:34 Dose: Not Given Ondansetron HCl (Ondansetron Hcl 4 Mg/2 Ml Vial) 4 mg IVPUSH Q8H PRN PRN Reason: Nausea and Vomiting Last Admin: 09/20/23 20:26 Dose: 4 mg Propranolol HCl (Propranolol Hcl 20 Mg Tablet) 20 mg PO TID [facility]; Protocol Last Admin: 09/20/23 20:18 Dose: Not Given Sodium Chloride (0.9 % Sodium Chloride Flush 3 Ml Syringe) 3 ml IVFLUSH QSHIFT [facility] Last Admin: 09/21/23 09:46 Dose: Not Given Tamsulosin HCl (Tamsulosin Hcl 0.4 Mg Capsule) 0.4 mg PO DAILY [facility] Allergies Allergies Allergy/AdvReac Type Severity Reaction Status Date / Time No Known Allergies Allergy Verified 08/27/23 10:27 Assessment & Plan Assessment & Plan (1) Major depressive disorder, recurrent severe without psychotic features: Status: Acute Code(s): F33.2 - Major depressive disorder, recurrent severe without psychotic features Plan Patient needs much reassurance and support. Hopefully patient will remain cognitively clear tomorrow has been varied in her response. His unfortunately require sitter at this time has intrusive suicidal thoughts with anxiety was unable states she can not maintain her safety. Start trintellix reviewed risks benefits consider ect Total time managing care of this patient today ____ minutes. Patient educated on: medication risk/benefits and medical condition Informed Consent: further education needed
--- NOTE | 2023-09-21 10:51 | MHC.CLN ---
F/U POOR PO NOTED X 4 DAYS. DIET=PUREE CONSISTENCY. SUPPLEMENT ENSURE CLEAR TID AND FORTIFIED ICE CREAM BID. SUPPLEMENT PROVIDE ADDITIONAL 1300 KCALS, 42 G PROTEIN. CONTINUE TO ENCOURAGE INTAKE AT MEALS AND OF SUPPLEMENTS ABLE.
[2023-09-21] MEDS: ondansetron HCL 4 MG/2 ML VIAL IVPUSH (10:55)
[2023-09-21] MEDS: Vortioxetine Hydrobromide 5 MG TABLET PO (13:32)
--- NOTE | 2023-09-21 14:08 | HO.PM.IMPN ---
Subjective Subjective Date of Service: 09/21/23 Interval History: possible hypoactive delirum and catatonia Review of Systems awake but does not answer questions no fever or chills Physical Exam Vital Signs: Vital Signs: Last Vital Signs Temp 97.7 F 09/21/23 07:09 Pulse 74 09/21/23 07:09 Resp 18 09/21/23 07:09 BP 160/69 H 09/21/23 07:09 Pulse Ox 93 09/21/23 07:09 O2 Del Method Room Air 09/21/23 07:09 O2 Flow Rate 2 09/14/23 11:51 BMI result Body Mass Index 20.8 General:Awake this morning, responding to question Resp: CTA bilateral CVS: S1,S2,RRR GI: +BS, NT, no distention Skin: No rash Neuro: motor grossly intact Psych: appropriate affect Objective Data Active Medications Acetaminophen (Acetaminophen 325 Mg Tablet) 650 mg PO Q4H PRN PRN Reason: Pain, Severe (Pain Scale 7-10) Last Admin: 09/14/23 09:10 Dose: 650 mg Documented By: YARITZA Amlodipine Besylate (Amlodipine Besylate 10 Mg Tablet) 10 mg PO DAILY [facility]; Protocol Last Admin: 09/21/23 10:37 Dose: Not Given Documented By: JOSÉ Non-Admin Reason: Patient Refused Ascorbic Acid (Ascorbic Acid 500 Mg Tablet) 2,000 mg PO BEDTIME [facility] Last Admin: 09/20/23 20:17 Dose: Not Given Documented By: MADELINE Non-Admin Reason: Patient Refused Enoxaparin Sodium (Enoxaparin Sodium 40 Mg/0.4 Ml Syringe) 40 mg SUBCUT Q24H [facility] Last Admin: 09/20/23 20:29 Dose: 40 mg Documented By: MADELINE Fluticasone Propionate (Fluticasone Propionate Nasal 16 Gm [place]) 1 spray NOSTRIL-B BID [facility] Last Admin: 09/21/23 10:38 Dose: Not Given Documented By: JOSÉ Non-Admin Reason: Patient Refused Hydralazine HCl (Hydralazine Hcl 20 Mg/Ml Vial) 10 mg IVPUSH Q6H PRN; Protocol PRN Reason: htn Last Admin: 09/20/23 12:41 Dose: 10 mg Documented By: HARIKA Meropenem 1 gm/ Sodium (Chloride) 100 mls @ 200 mls/hr IV Q8H [facility] Last Admin: 09/21/23 13:32 Dose: 200 mls/hr Documented By: JOSÉ Dextrose/Lactated Ringer's (D5lr) 1,000 mls @ 80 mls/hr IVCONT .[id number] [facility] Last Admin: 09/21/23 04:04 Dose: 80 mls/hr Documented By: MADELINE Melatonin (Melatonin 3 Mg Tablet) 6 mg PO BEDTIME PRN PRN Reason: Insomnia Last Admin: 09/14/23 21:35 Dose: 6 mg Documented By: KEITH Multivitamins/Vitamin C (Multivitamin Tablet) 1 tab PO DAILY [facility] Last Admin: 09/21/23 10:38 Dose: Not Given Documented By: JOSÉ Non-Admin Reason: Patient Refused Omeprazole (Omeprazole 20 Mg Capsule.) 20 mg PO DAILY@0630 [facility] Last Admin: 09/21/23 05:34 Dose: Not Given Documented By: MADELINE Non-Admin Reason: Patient Refused Ondansetron HCl (Ondansetron Hcl 4 Mg/2 Ml Vial) 4 mg IVPUSH Q8H PRN PRN Reason: Nausea and Vomiting Last Admin: 09/21/23 10:55 Dose: 4 mg Documented By: FANNIE Propranolol HCl (Propranolol Hcl 20 Mg Tablet) 20 mg PO TID [facility]; Protocol Last Admin: 09/21/23 10:38 Dose: Not Given Documented By: JOSÉ Non-Admin Reason: Patient Refused Sodium Chloride (0.9 % Sodium Chloride Flush 3 Ml Syringe) 3 ml IVFLUSH QSHIFT [facility] Last Admin: 09/21/23 09:46 Dose: Not Given Documented By: JOSÉ Non-Admin Reason: IV Running Tamsulosin HCl (Tamsulosin Hcl 0.4 Mg Capsule) 0.4 mg PO DAILY [facility] Last Admin: 09/21/23 10:39 Dose: Not Given Documented By: JOSÉ Non-Admin Reason: Patient Refused Vortioxetine (Vortioxetine Hydrobromide 5 Mg Tablet) 5 mg PO DAILY [facility] Last Admin: 09/21/23 13:32 Dose: 5 mg Documented By: JOSÉ Labs 09/17/23 07:09 11/06/23 05:27 Labs: Laboratory Results - last 24 hr 09/21/23 05:27 Hold Purple Top SEE NOTE Anion Gap 9 L Estim Creat Clear Calc 63.0 Estimated GFR > 60 Random Glucose 132 H Calcium 9.9 D Assessment and Plan (1) Odynophagia: Status: Acute Plan 72F PMH htn, adhd, anxiety, depression, presented with agitation, tremors, ataxia Agitation and tremors, initial concern for seritonin syndrome but probably was just delirium. Agitation resolved Periods of unresponsivenesss/Hypoactive state not characteristic of catatonia, with variable response to Ativan, in fact Ativan maybe causing over sedation at this point. She probably has hypoactive delirium. she is awake but seems like had similar episodes before . bmp seems fine ct head -grossly seems fine ,official reading pending psych suggested to add ativan and neurology eval-possible catatonia symptoms -psych will d/w her further plan. psych follow up today dysphagia speech recommends NND1 + thin liquid. elevated lfts's: lft's seems improving ,abd us kyds-Fdojuq-pqokfbbbw liver. Contracted gallbladder and probable small gallbladder wall polyps. hepatitis a,b,c nonreactive . GI to reschedule EGD when medically stable. Gi follow outaptient. TWI noted on ECG to check for QTC, no other symptoms, trops negative x 2, seen by cardioloty Echo nl LVEF, no WMA. No further testing at this time hypOkalemia, corrected . Decrease O2, no fever, CXR per my review atelectatis urinary retention, streaight cath PRN UTI-- urine culture esbl Ceftriaxone 09/14-chnaged to bactrim on 09/16/23 -will change to meropenem since can not take po added Id eval. Elevated LFTs, etiology unclear ? meds, trending down added heaptitis profile ,abd us. htn--controlled on proparanolol and Norvasc, but presently not taking meds by mouth. Tachycardia--d/t withdrawal from Propranolol while NPO, IV Metoprolol if not taking things by mouth Purulent discharge from right eye and redness--Abx drop dvt prophlyaxis - lovenox code status - full code PT is recommending short term rehab reason for continued hospitalization: awaiting Psych placement Quality Stroke Does the patient have a stroke diagnosis?: No VTE Prior VTE?: No VTE Risk Level:: Medical - moderate - high VTE Device Contraindication: Treatment Not Indicated VTE Drug Contraindication: N/A - Med Ordered
[2023-09-21 16:27] VITALS: BP 158/77; PULSE 98; RESP 20; TEMP 36.6; O2SAT 96
[2023-09-21] MEDS: LORazepam 2 MG/ML VIAL 0.5 MG IVPUSH (17:57)
[2023-09-21 19:26] VITALS: BP 130/70; PULSE 110; RESP 20; TEMP 36.6; O2SAT 95
[2023-09-21] MEDS: Calcium Carbonate 750 MG TAB.CHEW PO (20:49)
[2023-09-21] MEDS: Propranolol HCL 20 MG TABLET PO (20:49)
[2023-09-21] MEDS: Enoxaparin Sodium 40 MG/0.4 ML SYRINGE SUBCUT (20:53)
[2023-09-21 23:56] VITALS: BP 132/81; PULSE 87; RESP 18; TEMP 36.7; O2SAT 95
[2023-09-22] VITALS (7 sets, daily range): BP systolic 130–180; BP diastolic 62–87; PULSE 64–89; RESP 16–18; TEMP 36.4–36.9; O2SAT 93–96
[2023-09-22] MEDS: Dextrose 5 % and Lactated Ring 1,000 ML 80 ML IVCONT (01:49)
[2023-09-22] MEDS: Omeprazole 20 MG CAPSULE.DR PO (06:01)
[2023-09-22] MEDS: Vortioxetine Hydrobromide 5 MG TABLET PO (10:33)
[2023-09-22] MEDS: amLODIPine Besylate 10 MG TABLET PO (10:33)
[2023-09-22] MEDS: Multivitamin TABLET 1 TAB PO (10:34)
[2023-09-22] MEDS: Tamsulosin HCL 0.4 MG CAPSULE PO (10:34)
[2023-09-22] MEDS: Propranolol HCL 20 MG TABLET PO ×3 (10:34→20:43)
[2023-09-22] MEDS: Fluticasone Propionate Nasal 16 GM SPRAY 1 SPRAY NOSTRIL-B ×2 (10:35→20:42)
--- NOTE | 2023-09-22 14:22 | HO.PM.IMPN ---
Subjective Subjective Date of Service: 09/22/23 Interval History: possible hypoactive delirum Review of Systems awake but does not answer questions no fever or chills Physical Exam Vital Signs: Vital Signs: Last Vital Signs Temp 97.6 F 09/22/23 12:00 Pulse 64 09/22/23 12:00 Resp 16 09/22/23 12:00 BP 130/62 09/22/23 12:00 Pulse Ox 96 09/22/23 12:00 O2 Del Method Room Air 09/22/23 12:00 O2 Flow Rate 2 09/14/23 11:51 BMI result Body Mass Index 20.8 General:Awake this morning, responding to question Resp: CTA bilateral CVS: S1,S2,RRR GI: +BS, NT, no distention Skin: No rash Neuro: motor grossly intact Psych: appropriate affect Objective Data Active Medications Acetaminophen (Acetaminophen 325 Mg Tablet) 650 mg PO Q4H PRN PRN Reason: Pain, Severe (Pain Scale 7-10) Last Admin: 09/14/23 09:10 Dose: 650 mg Documented By: YARITZA Amlodipine Besylate (Amlodipine Besylate 10 Mg Tablet) 10 mg PO DAILY [facility]; Protocol Last Admin: 09/22/23 10:33 Dose: 10 mg Documented By: JOSÉ Ascorbic Acid (Ascorbic Acid 500 Mg Tablet) 2,000 mg PO BEDTIME [facility] Last Admin: 09/21/23 20:32 Dose: Not Given Documented By: MADELINE Non-Admin Reason: Patient Refused Enoxaparin Sodium (Enoxaparin Sodium 40 Mg/0.4 Ml Syringe) 40 mg SUBCUT Q24H [facility] Last Admin: 09/21/23 20:53 Dose: 40 mg Documented By: MADELINE Fluticasone Propionate (Fluticasone Propionate Nasal 16 Gm [place]) 1 spray NOSTRIL-B BID [facility] Last Admin: 09/22/23 10:35 Dose: 1 spray Documented By: JOSÉ Hydralazine HCl (Hydralazine Hcl 20 Mg/Ml Vial) 10 mg IVPUSH Q6H PRN; Protocol PRN Reason: htn Last Admin: 09/20/23 12:41 Dose: 10 mg Documented By: HARIKA Meropenem 1 gm/ Sodium (Chloride) 100 mls @ 200 mls/hr IV Q8H [facility] Last Admin: 09/22/23 13:56 Dose: 200 mls/hr Documented By: JOSÉ Dextrose/Lactated Ringer's (D5lr) 1,000 mls @ 80 mls/hr IVCONT .[id number] [facility] Last Infusion: 09/22/23 14:02 Dose: 0 mls/hr Documented By: JOSÉ Lorazepam (Lorazepam 0.5 Mg Tablet) 0.5 mg PO Q4H PRN PRN Reason: anxiety/restlessness Melatonin (Melatonin 3 Mg Tablet) 6 mg PO BEDTIME PRN PRN Reason: Insomnia Last Admin: 09/14/23 21:35 Dose: 6 mg Documented By: KEITH Multivitamins/Vitamin C (Multivitamin Tablet) 1 tab PO DAILY [facility] Last Admin: 09/22/23 10:34 Dose: 1 tab Documented By: JOSÉ Omeprazole (Omeprazole 20 Mg Capsule.Dr) 20 mg PO DAILY@0630 [facility] Last Admin: 09/22/23 06:01 Dose: 20 mg Documented By: MADELINE Ondansetron HCl (Ondansetron Hcl 4 Mg/2 Ml Vial) 4 mg IVPUSH Q8H PRN PRN Reason: Nausea and Vomiting Last Admin: 09/21/23 10:55 Dose: 4 mg Documented By: FANNIE Propranolol HCl (Propranolol Hcl 20 Mg Tablet) 20 mg PO TID [facility]; Protocol Last Admin: 09/22/23 10:34 Dose: 20 mg Documented By: JOSÉ Sodium Chloride (0.9 % Sodium Chloride Flush 3 Ml Syringe) [facility] Last Admin: 09/22/23 10:33 Dose: Not Given Documented By: JOSÉ Non-Admin Reason: IV Running Tamsulosin HCl (Tamsulosin Hcl 0.4 Mg Capsule) 0.4 mg PO DAILY [facility] Last Admin: 09/22/23 10:34 Dose: 0.4 mg Documented By: JOSÉ Vortioxetine (Vortioxetine Hydrobromide 5 Mg Tablet) 5 mg PO DAILY [facility] Last Admin: 09/22/23 10:33 Dose: 5 mg Documented By: JOSÉ Labs 09/17/23 07:09 09/21/23 05:27 Assessment and Plan (1) Major depressive disorder, recurrent severe without psychotic features: Status: Acute (2) Delirium: Status: Acute Plan 72F PMH htn, adhd, anxiety, depression, presented with agitation, tremors, ataxia Agitation and tremors, initial concern for seritonin syndrome but probably was just delirium. Agitation resolved Periods of unresponsivenesss/Hypoactive state not characteristic of catatonia, with variable response to Ativan, in fact Ativan maybe causing over sedation at this point. She probably has hypoactive delirium.patient did not respond to ativan ,seems waking up slowly , will avoid ativan. she is awake -waking up, eating somwhat today bmp seems fine ct head -grossly seems fine . psych suggested to add ativan and neurology eval-psych will d/w her further plan. dysphagia speech recommends NND1 + thin liquid. elevated lfts's: lft's seems improving ,abd us dote-Alvfol-fcbvqbshg liver. Contracted gallbladder and probable small gallbladder wall polyps. hepatitis a,b,c nonreactive . GI to reschedule EGD when medically stable. Gi follow outaptient. TWI noted on ECG to check for QTC, no other symptoms, trops negative x 2, seen by cardioloty Echo nl LVEF, no WMA. No further testing at this time hypOkalemia, corrected . Decrease O2, no fever, CXR per my review atelectatis urinary retention, streaight cath PRN UTI-- urine culture esbl Ceftriaxone 09/14-chnaged to bactrim on 09/16/23 -will change to meropenem since can not take po added Id eval. Elevated LFTs, etiology unclear ? meds, trending down added heaptitis profile ,abd us. htn--controlled on proparanolol and Norvasc, but presently not taking meds by mouth. Tachycardia--d/t withdrawal from Propranolol while NPO, IV Metoprolol if not taking things by mouth Purulent discharge from right eye and redness--Abx drop dvt prophlyaxis - lovenox code status - full code PT is recommending short term rehab reason for continued hospitalization: perisistent Hypoactive delirium, decreased p.o. intake-need IV hydration, mental status monitoring as well as may need psych placement. Quality Stroke Does the patient have a stroke diagnosis?: No VTE Prior VTE?: No VTE Risk Level:: Medical - moderate - high VTE Device Contraindication: Treatment Not Indicated VTE Drug Contraindication: N/A - Med Ordered
[2023-09-22] MEDS: LORazepam 2 MG/ML VIAL 0.5 MG IVPUSH (15:18)
[2023-09-22] MEDS: Dextrose 5 % and 0.9 % NaCl 1,000 ML 80 ML IVCONT (16:37)
--- NOTE | 2023-09-22 16:50 | P.CNPS_ITS ---
History of Present Illness Date of Service: 09/22/2023 Chief Complaint: severe depression Reason for Consult: Ongoing depression HPI Narrative: Patient seen in psychiatric follow-up. Id patient flat dysphoric with intermittent panic attacks did seem helped by low-dose intravenous lorazepam 0.5 mg while having a panic attack. The patient remains quite constricted depressed she is eating somewhat better seen with her has started on Trintellix 5 mg daily she is referral to [facility] but has been on infection precautions Past Psychiatric History: -Pt sees Dr. Shearer in OP setting recent hospitalization at [facility] Has had often on relapses over the past year and half -Remote hx of IPLOC 12 yrs ago, recent admissions at [facility] since 2020 with at least 4 admissions in the last 2 years [facility] Medical History (Updated 09/22/23 @ 14:28 by Valentine Mcclendon MD) Urinary tract infection Depression Hypothyroidism ZAC (generalized anxiety disorder) Hypertension ADHD (attention deficit hyperactivity disorder) Surgical History H/O thumb surgery H/O cone biopsy of cervix Family History: Bipolar disorder Social History: The patient is 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 she does occasionally smoke marijuana Trauma History: NA Diagnostics Vital Signs (24Hr): Vital Signs - 24 hr 09/21/23 19:26 09/21/23 23:56 09/22/23 04:00 Temperature 97.9 F 98.1 F 98.5 F Pulse Rate 110 H 87 85 Respiratory Rate 20 18 18 Blood Pressure 130/70 132/81 166/82 H Pulse Oximetry 95 95 93 Oxygen Delivery Method Room Air Room Air Room Air 09/22/23 07:24 09/22/23 12:00 09/22/23 15:55 Temperature 97.6 F 97.6 F Pulse Rate 89 64 64 Respiratory Rate 18 16 Blood Pressure 180/87 H 130/62 130/62 Pulse Oximetry 93 96 96 Oxygen Delivery Method Room Air Room Air 09/22/23 16:00 Temperature 98.1 F Pulse Rate 81 Respiratory Rate 18 Blood Pressure 141/73 H Pulse Oximetry 94 Oxygen Delivery Method Room Air BMI result Body Mass Index 20.8 Labs 09/17/23 07:09 09/21/23 05:27 Labs: Laboratory Results - last 48 hr 09/21/23 05:27 Hold Purple Top SEE NOTE Sodium 142 Potassium 3.4 Chloride 109 H Carbon Dioxide 27 Anion Gap 9 L BUN 7 L Creatinine 0.60 Estim Creat Clear Calc 63.0 Estimated GFR > 60 Random Glucose 132 H Calcium 9.9 D Imaging Radiology Impressions: ITS Impressions Brain MRI 09/01/23 12:35 IMPRESSION: 1. No acute infarct or other acute intracranial abnormality 2. Moderate chronic microangiopathy Chest X-Ray 09/02/23 10:20 IMPRESSION: Unremarkable examination. Barium Swallow X-Ray 09/03/23 13:56 IMPRESSION: Somewhat limited exam as discussed. 1) Small amount of subglottic aspiration of thick barium noted on first swallow. 2) Irregular mucosal pattern of the superior esophagus suggestive of erosive esophagitis. Given preference of the superior one third of the esophagus, Ann esophagitis (thrush) should be strongly considered. Direct visualization with endoscopy is recommended. Would also recommend direct visualization of the posterior oropharynx to assess for classic plaques of Ann. 3) Marked esophageal dysmotility. Small type I hiatus hernia. Cannot well assess for reflux. 4. Somewhat delayed opening of the LES, suggesting a mild component of achalasia. This procedures performed by French Wheeler PA-C, and supervised by Dr. Webster. The care team was made aware of the findings by French Wheeler PA-C. Modified Barium Swallow 09/04/23 14:25 IMPRESSION: Unremarkable modified barium swallow. Correlate with speech therapy report. Chest X-Ray 09/07/23 18:32 IMPRESSION: NGT tip project in left upper quadrant of abdomen with sideport at or just below expected level of GE junction. Left basilar opacity may represent atelectasis and/or pneumonia. Chest X-Ray 09/13/23 09:25 IMPRESSION: Left basilar atelectasis/infiltrate. Abdomen Ultrasound 09/16/23 17:59 IMPRESSION: Normal-appearing liver. Contracted gallbladder and probable small gallbladder wall polyps. Head CT 09/18/23 15:18 IMPRESSION : No acute intracranial pathology. Mental Status Exam Mental Status Exam Narrative: Patient's is seen in her hospital room with her . Her mood is depressed she is hopeless helpless denies thoughts of self-harm material patient is alert knows where she is year month she did have a panic attack with anxiety increase tremor quite fearful of future and her medical status ongoing. Patient still with residual paranoia from when she was delirious trying to integrate the past 2 weeks and process what is real and what is not real having a difficult time accepting that no current hallucinations cognitively somewhat slowed impulse control intact Medications Medications Current Medications Acetaminophen (Acetaminophen 325 Mg Tablet) 650 mg PO Q4H PRN PRN Reason: Pain, Severe (Pain Scale 7-10) Last Admin: 09/14/23 09:10 Dose: 650 mg Amlodipine Besylate (Amlodipine Besylate 10 Mg Tablet) 10 mg PO DAILY [facility]; Protocol Last Admin: 09/22/23 10:33 Dose: 10 mg Ascorbic Acid (Ascorbic Acid 500 Mg Tablet) 2,000 mg PO BEDTIME [facility] Last Admin: 09/21/23 20:32 Dose: Not Given Enoxaparin Sodium (Enoxaparin Sodium 40 Mg/0.4 Ml Syringe) 40 mg SUBCUT Q24H [facility] Last Admin: 09/21/23 20:53 Dose: 40 mg Fluticasone Propionate (Fluticasone Propionate Nasal 16 Gm [place]) 1 spray NOSTRIL-B BID [facility] Last Admin: 09/22/23 10:35 Dose: 1 spray Hydralazine HCl (Hydralazine Hcl 20 Mg/Ml Vial) 10 mg IVPUSH Q6H PRN; Protocol PRN Reason: htn Last Admin: 09/20/23 12:41 Dose: 10 mg Meropenem 1 gm/ Sodium (Chloride) 100 mls @ 200 mls/hr IV Q8H [facility] Last Infusion: 09/22/23 14:37 Dose: Infused Dextrose/Sodium Chloride (D5ns) 1,000 mls @ 80 mls/hr IVCONT .[id number] [facility] Last Admin: 09/22/23 16:37 Dose: 80 mls/hr Lorazepam (Lorazepam 0.5 Mg Tablet) 0.5 mg PO Q4H PRN PRN Reason: anxiety/restlessness Melatonin (Melatonin 3 Mg Tablet) 6 mg PO BEDTIME PRN PRN Reason: Insomnia Last Admin: 09/14/23 21:35 Dose: 6 mg Multivitamins/Vitamin C (Multivitamin Tablet) 1 tab PO DAILY [facility] Last Admin: 09/22/23 10:34 Dose: 1 tab Omeprazole (Omeprazole 20 Mg Capsule.Dr) 20 mg PO DAILY@0630 [facility] Last Admin: 09/22/23 06:01 Dose: 20 mg Ondansetron HCl (Ondansetron Hcl 4 Mg/2 Ml Vial) 4 mg IVPUSH Q8H PRN PRN Reason: Nausea and Vomiting Last Admin: 09/21/23 10:55 Dose: 4 mg Propranolol HCl (Propranolol Hcl 20 Mg Tablet) 20 mg PO TID [facility]; Protocol Last Admin: 09/22/23 16:32 Dose: 20 mg Sodium Chloride (0.9 % Sodium Chloride Flush 3 Ml Syringe) 3 ml IVFLUSH QSHIFT [facility] Last Admin: 09/22/23 10:33 Dose: Not Given Tamsulosin HCl (Tamsulosin Hcl 0.4 Mg Capsule) 0.4 mg PO DAILY [facility] Last Admin: 09/22/23 10:34 Dose: 0.4 mg Vortioxetine (Vortioxetine Hydrobromide 5 Mg Tablet) 5 mg PO DAILY [facility] Last Admin: 09/22/23 10:33 Dose: 5 mg Allergies Allergies Allergy/AdvReac Type Severity Reaction Status Date / Time No Known Allergies Allergy Verified 08/27/23 10:27 Assessment & Plan Assessment & Plan (1) Major depressive disorder, recurrent severe without psychotic features: Status: Acute Code(s): F33.2 - Major depressive disorder, recurrent severe without psychotic features Plan Patient improving resolving delirium questionable multifocal etiology neurology felt catatonia holding off on ECT for now patient does appear to be eating better Trintellix started monitor for adverse effects serotonergic symptoms case reviewed with patient and her offered option of [facility] versus physical rehab setting still being treated for for with IV antibiotics requires help for ambulation Total time managing care of this patient today ____ minutes.
[2023-09-22] MEDS: Ascorbic Acid 500 MG TABLET 2000 MG PO (20:42)
[2023-09-22] MEDS: Enoxaparin Sodium 40 MG/0.4 ML SYRINGE SUBCUT (20:43)
[2023-09-23 03:44] VITALS: BP 142/73; PULSE 77; RESP 18; TEMP 36.6; O2SAT 95
[2023-09-23] MEDS: Omeprazole 20 MG CAPSULE.DR PO (05:26)
[2023-09-23] MEDS: Dextrose 5 % and 0.9 % NaCl 1,000 ML 80 ML IVCONT ×2 (05:28→16:02)
[2023-09-23 06:44] VITALS: BP 148/76; PULSE 84; RESP 17; TEMP 36.6; O2SAT 94
[2023-09-23] MEDS: ondansetron HCL 4 MG/2 ML VIAL IVPUSH (07:45)
--- NOTE | 2023-09-23 07:47 | HO.PM.IMPN ---
Subjective Subjective Date of Service: 09/23/23 Interval History: hypoactive delirum Review of Systems awke more conversive denies new c/o Physical Exam Vital Signs: Vital Signs: Last Vital Signs Temp 97.8 F 09/23/23 06:44 Pulse 84 09/23/23 06:44 Resp 17 09/23/23 06:44 BP 148/76 H 09/23/23 06:44 Pulse Ox 94 09/23/23 06:44 O2 Del Method Room Air 09/23/23 06:44 O2 Flow Rate 2 09/14/23 11:51 BMI result Body Mass Index 20.8 General:Awake this morning,able to answer simple questions and follow s commands Resp: CTA bilateral CVS: S1,S2,RRR GI: +BS, NT, no distention Skin: No rash Neuro: motor grossly intact Psych: appropriate affect Objective Data Active Medications Acetaminophen (Acetaminophen 325 Mg Tablet) 650 mg PO Q4H PRN PRN Reason: Pain, Severe (Pain Scale 7-10) Last Admin: 09/14/23 09:10 Dose: 650 mg Documented By: YARITZA Amlodipine Besylate (Amlodipine Besylate 10 Mg Tablet) 10 mg PO DAILY [facility]; Protocol Last Admin: 09/22/23 10:33 Dose: 10 mg Documented By: JOSÉ Ascorbic Acid (Ascorbic Acid 500 Mg Tablet) 2,000 mg PO BEDTIME [facility] Last Admin: 09/22/23 20:42 Dose: 2,000 mg Documented By: SANJEEV Enoxaparin Sodium (Enoxaparin Sodium 40 Mg/0.4 Ml Syringe) 40 mg SUBCUT Q24H [facility] Last Admin: 09/22/23 20:43 Dose: 40 mg Documented By: SANJEEV Fluticasone Propionate (Fluticasone Propionate Nasal 16 Gm [place]) 1 spray NOSTRIL-B BID [facility] Last Admin: 09/22/23 20:42 Dose: 1 spray Documented By: SANJEEV Hydralazine HCl (Hydralazine Hcl 20 Mg/Ml Vial) 10 mg IVPUSH Q6H PRN; Protocol PRN Reason: htn Last Admin: 09/20/23 12:41 Dose: 10 mg Documented By: HARIKA Dextrose/Sodium Chloride (D5ns) 1,000 mls @ 80 mls/hr IVCONT .[id number] [facility] Last Admin: 09/23/23 05:28 Dose: 80 mls/hr Documented By: SANJEEV Lorazepam (Lorazepam 0.5 Mg Tablet) 0.5 mg PO Q4H PRN PRN Reason: anxiety/restlessness Melatonin (Melatonin 3 Mg Tablet) 6 mg PO BEDTIME PRN PRN Reason: Insomnia Last Admin: 09/14/23 21:35 Dose: 6 mg Documented By: KEITH Multivitamins/Vitamin C (Multivitamin Tablet) 1 tab PO DAILY [facility] Last Admin: 09/22/23 10:34 Dose: 1 tab Documented By: JOSÉ Omeprazole (Omeprazole 20 Mg Capsule.Dr) 20 mg PO DAILY@0630 [facility] Last Admin: 09/23/23 05:26 Dose: 20 mg Documented By: SANJEEV Ondansetron HCl (Ondansetron Hcl 4 Mg/2 Ml Vial) 4 mg IVPUSH Q8H PRN PRN Reason: Nausea and Vomiting Last Admin: 09/21/23 10:55 Dose: 4 mg Documented By: FANNIE Propranolol HCl (Propranolol Hcl 20 Mg Tablet) 20 mg PO TID [facility]; Protocol Last Admin: 09/22/23 20:43 Dose: 20 mg Documented By: SANJEEV Sodium Chloride (0.9 % Sodium Chloride Flush 3 Ml Syringe) 3 ml IVFLUSH QSHIFT [facility] Last Admin: 09/22/23 22:18 Dose: Not Given Documented By: SANJEEV Non-Admin Reason: IV Running Tamsulosin HCl (Tamsulosin Hcl 0.4 Mg Capsule) 0.4 mg PO DAILY [facility] Last Admin: 09/22/23 10:34 Dose: 0.4 mg Documented By: JOSÉ Vortioxetine (Vortioxetine Hydrobromide 5 Mg Tablet) 5 mg PO DAILY [facility] Last Admin: 09/22/23 10:33 Dose: 5 mg Documented By: JOSÉ Labs 09/17/23 07:09 09/21/23 05:27 Assessment and Plan (1) Major depressive disorder, recurrent severe without psychotic features: Status: Acute (2) Delirium: Status: Acute Plan 72F PMH htn, adhd, anxiety, depression, presented with agitation, tremors, ataxia Agitation and tremors, initial concern for seritonin syndrome but probably was just delirium. Agitation resolved Periods of unresponsivenesss/Hypoactive state not characteristic of catatonia, with variable response to Ativan, in fact Ativan maybe causing over sedation at this point. She probably has hypoactive delirium.patient did not respond to ativan ,seems waking up slowly , will avoid ativan. she is awake -waking up, eating somwhat today bmp seems fine ct head -grossly seems fine . psych suggested to add ativan and neurology eval-psych will d/w her further plan. dysphagia speech recommends NND1 + thin liquid.po intake improving. elevated lfts's: lft's seems improving ,abd us nsbo-Meazdk-bwhobmtzu liver. Contracted gallbladder and probable small gallbladder wall polyps. hepatitis a,b,c nonreactive . moniter lft's GI to reschedule EGD when medically stable.Gi follow outaptient Dr Rivas . TWI noted on ECG to check for QTC, no other symptoms, trops negative x 2, seen by cardioloty Echo nl LVEF, no WMA. No further testing at this time hypOkalemia, corrected . Decrease O2, no fever, CXR per my review atelectatis urinary retention, streaight cath PRN UTI--urine culture esbl. Ceftriaxone 09/14-chnaged to bactrim on 09/16/23 -will change to meropenem since can not take po Id eval noted- completed total 7 days ( including 2 days bactrim and 5 days meropenem) htn--controlled on proparanolol and Norvasc, but presently not taking meds by mouth. Tachycardia--improved,d/t withdrawal from Propranolol . Purulent discharge from right eye and redness--Abx drop dvt prophlyaxis - lovenox. code status - full code PT is recommending short term rehab reason for continued hospitalization: perisistent Hypoactive delirium- may need psych placement. Quality Stroke Does the patient have a stroke diagnosis?: No VTE Prior VTE?: No VTE Risk Level:: Medical - moderate - high VTE Device Contraindication: Treatment Not Indicated VTE Drug Contraindication: N/A - Med Ordered
[2023-09-23] MEDS: Vortioxetine Hydrobromide 5 MG TABLET PO (07:48)
[2023-09-23] MEDS: Propranolol HCL 20 MG TABLET PO ×3 (07:48→20:51)
[2023-09-23] MEDS: Multivitamin TABLET 1 TAB PO (07:49)
[2023-09-23] MEDS: Tamsulosin HCL 0.4 MG CAPSULE PO (07:49)
[2023-09-23] MEDS: Fluticasone Propionate Nasal 16 GM SPRAY 1 SPRAY NOSTRIL-B ×2 (07:49→20:57)
[2023-09-23] MEDS: amLODIPine Besylate 10 MG TABLET PO (07:49)
--- NOTE | 2023-09-23 08:34 | MHC.CM.PN ---
Addendum entered by Suzanne Remy RN 09/23/23 12:56: [facility] OFFERING STR BED AND WILL CONT TO FOLLOW. Original Note: EMR REVIEWED, PT W/HYPOACTIVE DELERIUM, P.T. RECOMMENDING STR, CNF REFERRAL, INTEREST ONLY FROM [facility] M[facility]ALLUM WHO HVE BEEN UPDATED VIA [employer] INCLUDING PSYCH CONSULTS HOWEVER CONSULT FROM YESTERDAY 09/22 NOT COMPLETED AND CM WILL SEND ONCE AVAILABLE, CM UNSURE IF PSYCH WOULD TAKE PT BACK AT THIS TIME, CM WILL CONT TO FOLLOW DC NEEDS.
[2023-09-23] MEDS: LORazepam 0.5 MG TABLET PO (09:42)
[2023-09-23 11:00] VITALS: BMI 20.8
--- NOTE | 2023-09-23 11:10 | MHC.CLN ---
NUTRITION DIET=PUREE. SUPPLEMENTS IN PLACE: ENSURE CLEAR TID (MAY SUBSTITUTE BOOST BREEZE); FORTIFIED ICE CREAM BID. PATIENT STATED TO THIS PRINCIPAL CLERK TYPIST THAT TAKES SUPPLEMENTS. NUTRITION DX NON SEVERE MALNUTRITION IN THE CONTEXT OF ACUTE ILLNESS (DELIRIUM). PO INTAKE APPEARS POOR GREATER THAN 5 DAYS. NO SKIN ISSUES NOTED. CONTINUE CURRENT DIET AND SUPPLEMENTS.
[2023-09-23 12:00] VITALS: BP 144/74; PULSE 82; RESP 16; TEMP 36.6; O2SAT 94
[2023-09-23 15:04] VITALS: BP 129/62; PULSE 78; RESP 17; TEMP 36.6; O2SAT 95
[2023-09-23 18:59] VITALS: BP 120/62; PULSE 86; RESP 17; TEMP 36.6; O2SAT 95
[2023-09-23] MEDS: Enoxaparin Sodium 40 MG/0.4 ML SYRINGE SUBCUT (20:50)
[2023-09-23] MEDS: Ascorbic Acid 500 MG TABLET 2000 MG PO (20:51)
[2023-09-24] MEDS: Dextrose 5 % and 0.9 % NaCl 1,000 ML 80 ML IVCONT ×3 (02:09→22:57)
[2023-09-24] MEDS: Omeprazole 20 MG CAPSULE.DR PO (05:46)
[2023-09-24 06:45] VITALS: BP 144/68; PULSE 77; RESP 16; TEMP 36; O2SAT 94
[2023-09-24] MEDS: Tamsulosin HCL 0.4 MG CAPSULE PO (08:27)
[2023-09-24] MEDS: Multivitamin TABLET 1 TAB PO (08:27)
[2023-09-24] MEDS: Propranolol HCL 20 MG TABLET PO ×3 (08:27→20:16)
[2023-09-24] MEDS: amLODIPine Besylate 10 MG TABLET PO (08:27)
[2023-09-24] MEDS: Vortioxetine Hydrobromide 5 MG TABLET PO (08:27)
[2023-09-24] MEDS: Fluticasone Propionate Nasal 16 GM SPRAY 1 SPRAY NOSTRIL-B ×2 (08:27→20:17)
--- NOTE | 2023-09-24 10:35 | P.PNIM_ITS ---
Subjective Subjective Date of Service: 09/24/23 Interval History: Compare to my last interaction with her over a week ago, she's doing very, awake, alert and interactive, but seem deconditioned Physical Exam 2 Vital Signs: Vital Signs: Last Vital Signs Temp 96.8 F 09/24/23 06:45 Pulse 77 09/24/23 06:45 Resp 16 09/24/23 06:45 BP 144/68 H 09/24/23 06:45 Pulse Ox 94 09/24/23 06:45 O2 Del Method Room Air 09/24/23 06:45 O2 Flow Rate 2 09/14/23 11:51 BMI result Body Mass Index 20.8 Const: Other: General: AO X 3, no acute distress Resp: CTA bilateral CVS: S1,S2,RRR GI: +BS, NT, no distention Skin: No rash Neuro: motor grossly intact Psych: flat affect Objective Data Active Medications Acetaminophen (Acetaminophen 325 Mg Tablet) 650 mg PO Q4H PRN PRN Reason: Pain, Severe (Pain Scale 7-10) Last Admin: 09/14/23 09:10 Dose: 650 mg Documented By: YARITZA Amlodipine Besylate (Amlodipine Besylate 10 Mg Tablet) 10 mg PO DAILY [facility]; Protocol Last Admin: 09/24/23 08:27 Dose: 10 mg Documented By: IRON Ascorbic Acid (Ascorbic Acid 500 Mg Tablet) 2,000 mg PO BEDTIME [facility] Last Admin: 09/23/23 20:51 Dose: 2,000 mg Documented By: THUY Enoxaparin Sodium (Enoxaparin Sodium 40 Mg/0.4 Ml Syringe) 40 mg SUBCUT Q24H [facility] Last Admin: 09/23/23 20:50 Dose: 40 mg Documented By: THUY Fluticasone Propionate (Fluticasone Propionate Nasal 16 Gm [place]) 1 spray NOSTRIL-B BID [facility] Last Admin: 09/24/23 08:27 Dose: 1 spray Documented By: IRON Hydralazine HCl (Hydralazine Hcl 20 Mg/Ml Vial) 10 mg IVPUSH Q6H PRN; Protocol PRN Reason: htn Last Admin: 09/20/23 12:41 Dose: 10 mg Documented By: HARIKA Dextrose/Sodium Chloride (D5ns) 1,000 mls @ 80 mls/hr IVCONT .[id number] [facility] Last Admin: 09/24/23 02:09 Dose: 80 mls/hr Documented By: THUY Lorazepam (Lorazepam 0.5 Mg Tablet) 0.5 mg PO Q4H PRN PRN Reason: anxiety/restlessness Last Admin: 09/23/23 09:42 Dose: 0.5 mg Documented By: FANNIE Melatonin (Melatonin 3 Mg Tablet) 6 mg PO BEDTIME PRN PRN Reason: Insomnia Last Admin: 09/14/23 21:35 Dose: 6 mg Documented By: KEITH Multivitamins/Vitamin C (Multivitamin Tablet) 1 tab PO DAILY [facility] Last Admin: 09/24/23 08:27 Dose: 1 tab Documented By: IRON Omeprazole (Omeprazole 20 Mg Capsule.Dr) 20 mg PO DAILY@0630 [facility] Last Admin: 09/24/23 05:46 Dose: 20 mg Documented By: THUY Ondansetron HCl (Ondansetron Hcl 4 Mg/2 Ml Vial) 4 mg IVPUSH Q8H PRN PRN Reason: Nausea and Vomiting Last Admin: 09/23/23 07:45 Dose: 4 mg Documented By: FANNIE Propranolol HCl (Propranolol Hcl 20 Mg Tablet) 20 mg PO TID [facility]; Protocol Last Admin: 09/24/23 08:27 Dose: 20 mg Documented By: IRON Sodium Chloride (0.9 % Sodium Chloride Flush 3 Ml Syringe) 3 ml IVFLUSH QSHIFT [facility] Last Admin: 09/24/23 07:07 Dose: Not Given Documented By: IRON Non-Admin Reason: IV Running Tamsulosin HCl (Tamsulosin Hcl 0.4 Mg Capsule) 0.4 mg PO DAILY [facility] Last Admin: 09/24/23 08:27 Dose: 0.4 mg Documented By: IRON Vortioxetine (Vortioxetine Hydrobromide 5 Mg Tablet) 5 mg PO DAILY [facility] Last Admin: 09/24/23 08:27 Dose: 5 mg Documented By: IRON Labs 09/17/23 07:09 09/21/23 05:27 Assessment and Plan (1) Major depressive disorder, recurrent severe without psychotic features: Status: Acute (2) Delirium: Status: Acute Plan 72F PMH htn, adhd, anxiety, depression, presented with agitation, tremors, ataxia Agitation and tremors, initial concern for seretonin syndrome but probably was just delirium. Agitation resolved Periods of unresponsivenesss/Hypoactive state not characteristic of catatonia, with variable response to Ativan, in fact Ativan caused more sedation. Her condition is more suggestive of hypoactive delirium. She is awake, alert and more interactive. Avoid ativan at this, except for severe anxiety. Testing has included CT and MRI of head which were unremarkable. She is been followed by Psych and was seen by Neurology during this stay Dysphagia speech recommends NND1 + thin liquid. She was to have EGD but will be rescheduled at later time by Dr. Rivas Elevated lfts's: US of abdomen--Normal-appearing liver. Contracted gallbladder and probable small gallbladder wall polyps. Hep a, b, c negative TWI noted on ECG to check for QTC, no other symptoms, trops negative x 2, seen by cardioloty Echo nl LVEF, no WMA. No further testing at this time hypOkalemia, corrected . Decrease O2, no fever, CXR showed atelectasis, resolved urinary retention, streaight cath PRN UTI--urine culture esbl. Ceftriaxone 09/14-chnaged to bactrim on 09/16/23 -will change to meropenem since can not take po Id eval noted- completed total 7 days ( including 2 days bactrim and 5 days meropenem) HTN--controlled on proparanolol and Norvasc Tachycardia-- d/t not taking Propranolol, resolved. Purulent discharge from right eye and redness--Abx drop, resolved. dvt prophlyaxis - lovenox. code status - full code PT is recommending short term rehab reason for continued hospitalization: awaiting safe dispo Quality Stroke Does the patient have a stroke diagnosis?: No VTE Prior VTE?: No VTE Risk Level:: Medical - moderate - high VTE Device Contraindication: Treatment Not Indicated VTE Drug Contraindication: N/A - Med Ordered
[2023-09-24 14:13] VITALS: BP 170/72; PULSE 70; RESP 18; TEMP 36.6
[2023-09-24] MEDS: ondansetron HCL 4 MG/2 ML VIAL IVPUSH (14:19)
[2023-09-24 15:18] VITALS: BP 160/77; PULSE 74; RESP 16; TEMP 36.2; O2SAT 96
--- NOTE | 2023-09-24 15:58 | MHC.SL.SWA ---
Speech Pathologist Impression: Risk of Aspiration Due to: Neurological Condition Poor PO Intake Weak Cough Weak Voice Dysphasia Diet Status: Recommend continue on Pureed (NDD1) with thin liquids, pills crushed in puree, per patient's request/preference. Liquid Consistency and Strategies for Safe Swallow: Liquid Intake Recommendation: Thin Liquid Intake Strategies: Small Sips Solid Food Consistency: Dietary Recommendations: Pureed (NDD1) Additional Modifications to Solid Foods: Foods to be moistened in sauce/gravy Oral Medication Intake: Crushed with Puree Please contact the pharmacy regarding appropriate crushable or liquid drug formulations that are available whenever modified delivery is recommended. Compensatory Strategies and Precautions to be Taken for Safe Swallow: Sitting Upright (90 deg) Small Bites and Sips Alternate Liquids/Solids Supervision While Eating and Drinking for Safe Swallow: None Needed Foods to Avoid: Swallowing Recommended Treatments: Compens. Strategy Educat. Recommendation for Speech: Speech Therapy through Rehab Facility Comment: [facility] recalled by Dr. Jj to re-assess swallow as patient complaining about only being allowed to eat purees. MA[facility]GER [facility] discharged patient from speech services on 09/08/23, as patient had repeatedly self selected eating puree over other consistencies despite frequent encouragement to attempt other consistencies. MBSS completed on 09/04 demonstrated ability swallow up to advanced solids with adequate oral and pharyngeal clearance. Patient has continued as an inpatient after discharge speech services on diet of Puree with Thin Liquids, again, at request of patient. Today, patient was awake and alert, seated in chair in room, with present. encouraged patient to try more advanced textures that had been brought by MA[facility] MED[facility]FFAIRS with Patient protesting that she will choke and can't eat that stuff. Patient was offered small piece of chicken salad sandwich, with patient biting a trace amount of chicken salad, briefly chewing then becoming distressed, saying both I am going to choke and I am going to throw up , and then assisted with spitting out trace amount of chicken salad. Patient took sip of liquid from straw with timely swallow. Patient continued to appear upset, refused all other offers of food/liquid. MBSS study discussed again with , with note that patient can manage advanced textures, with chopped/advanced recommended, however patient refused. [facility] advised MD, Career Manager of history of swallow treatment, recommendations, patient self selecting purees which continues to this date. Recommend re-attempt X1 by [facility] to determine if patient will attempt/accept advancement of diet. Recommend continue on Pureed (NDD1) with thin liquids, pills crushed in puree, per patient's request/preference. Frequency/Duration: Date Range for Service Req: Timeline to reassess: PRN Outpatient Services Director Clinican/Clinical Fellow: No Supervisory Statement: I have reviewed and agree with the student/clinical fellow's documentation: N/A Speech Language Pathologist: Suzanne Lin M.A., CCC-[facility]NA[facility]AIRS
[2023-09-24] MEDS: Acetaminophen 325 MG TABLET 650 MG PO (17:18)
--- NOTE | 2023-09-24 17:48 | P.CNPS_ITS ---
History of Present Illness Date of Service: 09/24/23 Chief Complaint: severe depression Requesting physician: Jb Jj HPI Narrative: Patient is seen on 2 occasions she is quite depressed ruminating hopeless helpless not convince she will ever get better. She also appears somewhat fearful difficulty trusting others feels that staff may somehow be conspiring against her doing things to harm her quite suspicious withdrawn has stated that she wants this to the and has been suffering. Patient does seem to have some response to lorazepam 0.5 mg intravenous has started on Trintellix 5 mg case reviewed with patient's Past Psychiatric History: -Pt sees Dr. Shearer in OP setting recent hospitalization at the [place] [facility] Has had often on relapses over the past year and half -Remote hx of IPLOC 12 yrs ago, recent admissions at [facility] [place] with at least 4 admissions in the last 2 years [facility] Medical History (Updated 09/22/23 @ 14:28 by Valentine Mcclendon MD) Urinary tract infection Depression Hypothyroidism ZAC (generalized anxiety disorder) Hypertension ADHD (attention deficit hyperactivity disorder) Surgical History H/O thumb surgery H/O cone biopsy of cervix Family History: Bipolar disorder Social History: The patient is 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 she does occasionally smoke marijuana Trauma History: NA Diagnostics Vital Signs (24Hr): Vital Signs - 24 hr 09/23/23 18:59 09/24/23 06:45 09/24/23 14:13 Temperature 97.8 F 96.8 F 98 F Pulse Rate 86 77 70 Respiratory Rate 17 16 18 Blood Pressure 120/62 144/68 H 170/72 H Pulse Oximetry 95 94 Oxygen Delivery Method Room Air Room Air 09/24/23 15:18 Temperature 97.2 F Pulse Rate 74 Respiratory Rate 16 Blood Pressure 160/77 H Pulse Oximetry 96 Oxygen Delivery Method Room Air BMI result Body Mass Index 20.8 Labs 09/25/23 09:52 09/25/23 09:52 Imaging Radiology Impressions: ITS Impressions Brain MRI 09/01/23 12:35 IMPRESSION: 1. No acute infarct or other acute intracranial abnormality 2. Moderate chronic microangiopathy Chest X-Ray 09/02/23 10:20 IMPRESSION: Unremarkable examination. Barium Swallow X-Ray 09/03/23 13:56 IMPRESSION: Somewhat limited exam as discussed. 1) Small amount of subglottic aspiration of thick barium noted on first swallow. 2) Irregular mucosal pattern of the superior esophagus suggestive of erosive esophagitis. Given preference of the superior one third of the esophagus, Ann esophagitis (thrush) should be strongly considered. Direct visualization with endoscopy is recommended. Would also recommend direct visualization of the posterior oropharynx to assess for classic plaques of Ann. 3) Marked esophageal dysmotility. Small type I hiatus hernia. Cannot well assess for reflux. 4. Somewhat delayed opening of the LES, suggesting a mild component of achalasia. This procedures performed by French Wheeler PA-C, and supervised by Dr. Webster. The care team was made aware of the findings by French Wheeler PA-C. Modified Barium Swallow 09/04/23 14:25 IMPRESSION: Unremarkable modified barium swallow. Correlate with speech therapy report. Chest X-Ray 09/07/23 18:32 IMPRESSION: NGT tip project in left upper quadrant of abdomen with sideport at or just below expected level of GE junction. Left basilar opacity may represent atelectasis and/or pneumonia. Chest X-Ray 09/13/23 09:25 IMPRESSION: Left basilar atelectasis/infiltrate. Abdomen Ultrasound 09/16/23 17:59 IMPRESSION: Normal-appearing liver. Contracted gallbladder and probable small gallbladder wall polyps. Head CT 09/18/23 15:18 IMPRESSION : No acute intracranial pathology. Mental Status Exam Mental Status Exam Narrative: Patient is seen with her in her room she is sad looking clear weight loss apprehensive look on her face. There are some degree of slowed mentation and she describes fearfulness suspicious of others motives guarded thoughts that she would be better off denies clear plan pos PI ? reyes Medications Medications Current Medications Acetaminophen (Acetaminophen 325 Mg Tablet) 650 mg PO Q4H PRN PRN Reason: Pain, Severe (Pain Scale 7-10) Last Admin: 09/24/23 17:18 Dose: 650 mg Amlodipine Besylate (Amlodipine Besylate 10 Mg Tablet) 10 mg PO DAILY [facility]; Protocol Last Admin: 09/24/23 08:27 Dose: 10 mg Ascorbic Acid (Ascorbic Acid 500 Mg Tablet) 2,000 mg PO BEDTIME [facility] Last Admin: 09/23/23 20:51 Dose: 2,000 mg Enoxaparin Sodium (Enoxaparin Sodium 40 Mg/0.4 Ml Syringe) 40 mg SUBCUT Q24H [facility] Last Admin: 09/23/23 20:50 Dose: 40 mg Fluticasone Propionate (Fluticasone Propionate Nasal 16 Gm [place]) 1 spray NOSTRIL-B BID [facility] Last Admin: 09/24/23 08:27 Dose: 1 spray Hydralazine HCl (Hydralazine Hcl 20 Mg/Ml Vial) 10 mg IVPUSH Q6H PRN; Protocol PRN Reason: htn Last Admin: 09/20/23 12:41 Dose: 10 mg Lorazepam (Lorazepam 0.5 Mg Tablet) 0.5 mg PO Q4H PRN PRN Reason: anxiety/restlessness Last Admin: 09/23/23 09:42 Dose: 0.5 mg Melatonin (Melatonin 3 Mg Tablet) 6 mg PO BEDTIME PRN PRN Reason: Insomnia Last Admin: 09/14/23 21:35 Dose: 6 mg Multivitamins/Vitamin C (Multivitamin Tablet) 1 tab PO DAILY [facility] Last Admin: 09/24/23 08:27 Dose: 1 tab Omeprazole (Omeprazole 20 Mg Capsule.Dr) 20 mg PO DAILY@0630 [facility] Last Admin: 09/24/23 05:46 Dose: 20 mg Ondansetron HCl (Ondansetron Hcl 4 Mg/2 Ml Vial) 4 mg IVPUSH Q8H PRN PRN Reason: Nausea and Vomiting Last Admin: 09/24/23 14:19 Dose: 4 mg Propranolol HCl (Propranolol Hcl 20 Mg Tablet) 20 mg PO TID [facility]; Protocol Last Admin: 09/24/23 14:19 Dose: 20 mg Risperidone (Risperidone 0.25 Mg Tablet) 0.25 mg PO BEDTIME [facility] Sodium Chloride (0.9 % Sodium Chloride Flush 3 Ml Syringe) 3 ml IVFLUSH QSHIFT [facility] Last Admin: 09/24/23 14:08 Dose: Not Given Tamsulosin HCl (Tamsulosin Hcl 0.4 Mg Capsule) 0.4 mg PO DAILY [facility] Last Admin: 09/24/23 08:27 Dose: 0.4 mg Vortioxetine (Vortioxetine Hydrobromide 5 Mg Tablet) 5 mg PO DAILY [facility] Last Admin: 09/24/23 08:27 Dose: 5 mg Allergies Allergies Allergy/AdvReac Type Severity Reaction Status Date / Time No Known Allergies Allergy Verified 08/27/23 10:27 Assessment & Plan Assessment & Plan (1) Major depressive disorder, recurrent severe without psychotic features: Status: Acute Code(s): F33.2 - Major depressive disorder, recurrent severe without psychotic features (2) Odynophagia: Status: Acute Code(s): R13.10 - Dysphagia, unspecified (3) Paranoia: Status: Acute Code(s): F22 - Delusional disorders (4) Dysphagia: Status: Acute Code(s): R13.10 - Dysphagia, unspecified Plan Referral to [facility] Risperdal 0.25 mg at bedtime says one-to-one sitter for safety continue Trintellix transfer to [facility] when possible Total time managing care of this patient today ____ minutes. Guardian/Caregiver educated on: diagnosis and medication risk/benefits Informed Consent: further education needed
[2023-09-24] MEDS: LORazepam 2 MG/ML VIAL 0.5 MG IVPUSH (17:59)
[2023-09-24 19:06] VITALS: BP 144/61; PULSE 77; RESP 17; TEMP 36.4; O2SAT 95
[2023-09-24] MEDS: risperiDONE 0.25 MG TABLET PO (20:16)
[2023-09-24] MEDS: Ascorbic Acid 500 MG TABLET 2000 MG PO (20:16)
[2023-09-24] MEDS: Enoxaparin Sodium 40 MG/0.4 ML SYRINGE SUBCUT (20:16)
[2023-09-25 04:00] VITALS: BP 176/78; PULSE 74; RESP 14; TEMP 36.9; O2SAT 94
[2023-09-25] MEDS: Omeprazole 20 MG CAPSULE.DR PO (06:09)
[2023-09-25 07:14] LABS: Folate 9.8 ng/mL (> or = 4.0); Vitamin B12 1167 pg/mL (200-900)
[2023-09-25 07:19] VITALS: BP 165/72; PULSE 80; RESP 16; TEMP 36.2; O2SAT 95
[2023-09-25] MEDS: Tamsulosin HCL 0.4 MG CAPSULE PO (08:32)
[2023-09-25] MEDS: Multivitamin TABLET 1 TAB PO (08:32)
[2023-09-25] MEDS: amLODIPine Besylate 10 MG TABLET PO (08:32)
[2023-09-25] MEDS: Fluticasone Propionate Nasal 16 GM SPRAY 1 SPRAY NOSTRIL-B ×2 (08:32→21:00)
[2023-09-25] MEDS: Vortioxetine Hydrobromide 5 MG TABLET PO (08:32)
[2023-09-25] MEDS: Propranolol HCL 20 MG TABLET PO ×3 (08:32→21:57)
[2023-09-25 10:13] LABS: Hematocrit 35.9 % (37.0-47.0); Hemoglobin 11.7 g/dl (12.0-16.0); Mean Corpuscular HGB Conc 32.6 g/dl (31.0-35.0); Mean Corpuscular Volume 89.1 fL (80.0-98.0); Mean Platelet Volume 10.2 fL (9.4-12.3); Platelet Count 334 X10*3/uL (160-400); Red Blood Count 4.03 X10*6/uL (4.20-5.50); Red Cell Distribution Width 13.6 % (11.0-16.0); White Blood Count 5.9 X10*3/uL (4.8-10.8)
[2023-09-25 10:25] LABS: Anion Gap 9 (12-20); Blood Urea Nitrogen 6 mg/dL (9-16); Calcium 8.7 mg/dL (8.4-10.2); Carbon Dioxide 26 mmol/L (22-29); Chloride 108 mmol/L (96-108); Creatinine Clr Calc Pharmacy 66.3; Estimated Glomerular Filt Rate > 60; Glucose Random 212 mg/dL (60-115); Potassium 3.1 mmol/L (3.3-5.1); Sodium 140 mmol/L (135-145)
--- NOTE | 2023-09-25 10:39 | P.PNIM_ITS ---
Subjective Subjective Date of Service: 09/25/23 Interval History: Has very depressed mood this morning but interactive, didn't sleep due to noise Physical Exam 2 Vital Signs: Vital Signs: Last Vital Signs Temp 97.1 F 09/25/23 07:19 Pulse 80 09/25/23 07:19 Resp 16 09/25/23 07:19 BP 165/72 H 09/25/23 07:19 Pulse Ox 95 09/25/23 07:19 O2 Del Method Room Air 09/25/23 07:19 O2 Flow Rate 2 09/14/23 11:51 BMI result Body Mass Index 20.8 Const: Other: General: AO X 3, no acute distress Resp: CTA bilateral CVS: S1,S2,RRR GI: +BS, NT, no distention Skin: No rash Neuro: motor grossly intact Psych: flat affect Objective Data Active Medications Acetaminophen (Acetaminophen 325 Mg Tablet) 650 mg PO Q4H PRN PRN Reason: Pain, Severe (Pain Scale 7-10) Last Admin: 09/24/23 17:18 Dose: 650 mg Documented By: IRON Amlodipine Besylate (Amlodipine Besylate 10 Mg Tablet) 10 mg PO DAILY [facility]; Protocol Last Admin: 09/25/23 08:32 Dose: 10 mg Documented By: IRON Ascorbic Acid (Ascorbic Acid 500 Mg Tablet) 2,000 mg PO BEDTIME [facility] Last Admin: 09/24/23 20:16 Dose: 2,000 mg Documented By: THUY Enoxaparin Sodium (Enoxaparin Sodium 40 Mg/0.4 Ml Syringe) 40 mg SUBCUT Q24H [facility] Last Admin: 09/24/23 20:16 Dose: 40 mg Documented By: THUY Fluticasone Propionate (Fluticasone Propionate Nasal 16 Gm [place]) 1 spray NOSTRIL-B BID [facility] Last Admin: 09/25/23 08:32 Dose: 1 spray Documented By: IRON Hydralazine HCl (Hydralazine Hcl 20 Mg/Ml Vial) 10 mg IVPUSH Q6H PRN; Protocol PRN Reason: htn Last Admin: 09/20/23 12:41 Dose: 10 mg Documented By: HARIKA Dextrose/Sodium Chloride (D5ns) 1,000 mls @ 80 mls/hr IVCONT .[id number] [facility] Last Admin: 09/24/23 22:57 Dose: 80 mls/hr Documented By: THUY Lorazepam (Lorazepam 0.5 Mg Tablet) 0.5 mg PO Q4H PRN PRN Reason: anxiety/restlessness Last Admin: 09/23/23 09:42 Dose: 0.5 mg Documented By: FANNIE Melatonin (Melatonin 3 Mg Tablet) 6 mg PO BEDTIME PRN PRN Reason: Insomnia Last Admin: 09/14/23 21:35 Dose: 6 mg Documented By: KEITH Multivitamins/Vitamin C (Multivitamin Tablet) 1 tab PO DAILY [facility] Last Admin: 09/25/23 08:32 Dose: 1 tab Documented By: IRON Omeprazole (Omeprazole 20 Mg Capsule.) 20 mg PO DAILY@0630 [facility] Last Admin: 09/25/23 06:09 Dose: 20 mg Documented By: THUY Ondansetron HCl (Ondansetron Hcl 4 Mg/2 Ml Vial) 4 mg IVPUSH Q8H PRN PRN Reason: Nausea and Vomiting Last Admin: 09/24/23 14:19 Dose: 4 mg Documented By: IRON Propranolol HCl (Propranolol Hcl 20 Mg Tablet) 20 mg PO TID [facility]; Protocol Last Admin: 09/25/23 08:32 Dose: 20 mg Documented By: IRON Risperidone (Risperidone 0.25 Mg Tablet) 0.25 mg PO BEDTIME [facility] Last Admin: 09/24/23 20:16 Dose: 0.25 mg Documented By: THUY Sodium Chloride (0.9 % Sodium Chloride Flush 3 Ml Syringe) [facility] Last Admin: 09/25/23 07:09 Dose: Not Given Documented By: IRON Non-Admin Reason: IV Running Tamsulosin HCl (Tamsulosin Hcl 0.4 Mg Capsule) 0.4 mg PO DAILY [facility] Last Admin: 09/25/23 08:32 Dose: 0.4 mg Documented By: IRON Vortioxetine (Vortioxetine Hydrobromide 5 Mg Tablet) 5 mg PO DAILY [facility] Last Admin: 09/25/23 08:32 Dose: 5 mg Documented By: IRON Labs 09/25/23 09:52 09/25/23 09:52 Labs: Laboratory Results - last 24 hr 09/25/23 09/25/23 09/25/23 05:06 05:53 09:52 MCV 89.1 MCH 29.0 MCHC 32.6 RDW 13.6 Plt Count 334 MPV 10.2 Absolute Nucleated RBC 0.000 Nucleated RBC % (auto) 0.0 Hold Purple Top SEE NOTE Anion Gap 9 L Estim Creat Clear Calc 66.3 Estimated GFR > 60 Random Glucose 212 H Calcium 8.7 D Vitamin B12 1167 H Folate 9.8 Assessment and Plan (1) Major depressive disorder, recurrent severe without psychotic features: Status: Acute (2) Delirium: Status: Acute Plan 72F PMH htn, adhd, anxiety, depression, presented with agitation, tremors, ataxia Initial Agitation and tremors, initial concern for seretonin syndrome but probably was just delirium. Agitation resolved Periods of unresponsivenesss/Hypoactive state not characteristic of catatonia, with variable response to Ativan, in fact Ativan caused more sedation. Her condition is more suggestive of hypoactive delirium. She is awake, alert and more interactive. Avoid ativan at this, except for severe anxiety. Testing has included CT and MRI of head which were unremarkable. She is been followed by Psych and was seen by Neurology during this stay. Ongoing discussing with Psych about possible [facility] transfer next week Dysphagia speech recommends NND1 + thin liquid. She was to have EGD but will be rescheduled at later time by Dr. Rivas Elevated lfts's: US of abdomen--Normal-appearing liver. Contracted gallbladder and probable small gallbladder wall polyps. Hep a, b, c negative TWI noted on ECG to check for QTC, no other symptoms, trops negative x 2, seen by cardioloty Echo nl LVEF, no WMA. No further testing at this time hypOkalemia, corrected, K low will correct Decrease O2, no fever, CXR showed atelectasis, resolved urinary retention, streaight cath PRN UTI--urine culture, ESBL E.coli Ceftriaxone 09/14-chnaged to bactrim on 09/16/23 -will change to meropenem since can not take po Id eval noted- completed total 7 days ( including 2 days bactrim and 5 days meropenem) HTN--controlled on proparanolol and Norvasc Tachycardia-- d/t not taking Propranolol, resolved. Purulent discharge from right eye and redness--Abx drop, resolved. dvt prophlyaxis - lovenox. code status - full code PT is recommending short term rehab reason for continued hospitalization: awaiting safe dispo Quality Stroke Does the patient have a stroke diagnosis?: No VTE Prior VTE?: No VTE Risk Level:: Medical - moderate - high VTE Device Contraindication: Treatment Not Indicated VTE Drug Contraindication: N/A - Med Ordered
--- NOTE | 2023-09-25 10:55 | MHC.CLN ---
F/U DIET=PUREE. SUPPLEMENTS IN PLACE: ENSURE CLEAR TID (MAY SUBSTITUTE BOOST BREEZE); FORTIFIED ICE CREAM BID. PATIENT STATED TO THIS GORE SEAMER THAT TAKES SUPPLEMENTS. INTAKE X 2 DAYS IMPROVED. 2 MEALS X 75%; 3 MEALS X 100%. CONTINUE CURRENT DIET AND SUPPLEMENTS.
[2023-09-25] MEDS: Potassium Chloride Packet 20 MEQ PACKET 40 MEQ PO (10:57)
[2023-09-25] MEDS: Dextrose 5 % and 0.9 % NaCl 1,000 ML 80 ML IVCONT ×2 (10:57→21:56)
[2023-09-25] MEDS: ondansetron HCL 4 MG/2 ML VIAL IVPUSH (11:25)
[2023-09-25 12:00] VITALS: O2SAT 96
--- NOTE | 2023-09-25 12:46 | MHC.SL.SWA ---
Speech Pathologist Impression: Dysphagia Risk of Aspiration Due to: Neurological Condition Poor PO Intake Weak Cough Weak Voice Dysphasia Diet Status: No change at this time Liquid Consistency and Strategies for Safe Swallow: Liquid Intake Recommendation: Thin Liquid Intake Strategies: Small Sips Solid Food Consistency: Dietary Recommendations: Pureed (NDD1) Additional Modifications to Solid Foods: [facility] advised MD, Cissp of history of swallow treatment, recommendations, patient self selecting purees which continues to this date. Per Dr. Jj's request, [employer] to re-attempt PO trials on Thursday to determine if patient will attempt/accept advancement of diet. Recommend continue on Pureed (NDD1) with thin liquids, pills crushed in puree, per patient's request/preference. Oral Medication Intake: Crushed with Puree Please contact the pharmacy regarding appropriate crushable or liquid drug formulations that are available whenever modified delivery is recommended. Compensatory Strategies and Precautions to be Taken for Safe Swallow: Sitting Upright (90 deg) Small Bites and Sips Alternate Liquids/Solids Supervision While Eating and Drinking for Safe Swallow: None Needed Swallowing Recommended Treatments: Compens. Strategy Educat. Recommendation for Speech: Speech Therapy through Rehab Facility Healthcare Applications Analyst Clinican/Clinical Fellow: No Supervisory Statement: I have reviewed and agree with the student/clinical fellow's documentation: N/A Speech Language Pathologist: Jeannine Almaguer M.A., [facility]
[2023-09-25 15:01] VITALS: BP 143/70; PULSE 73; RESP 18; TEMP 37; O2SAT 95
--- NOTE | 2023-09-25 15:09 | MHC.CM.PN ---
PER MD ROUNDS, PT MEDICALLY CLEARED AND AWAITING TRANSFER TO [facility]
[2023-09-25] MEDS: LORazepam 2 MG/ML VIAL 0.5 MG IVPUSH (15:28)
[2023-09-25] MEDS: risperiDONE 0.25 MG TABLET PO ×2 (15:28→21:57)
[2023-09-25] MEDS: 0.9 % Sodium Chloride Flush 3 ML SYRINGE IVFLUSH ×2 (15:31→21:58)
[2023-09-25 19:23] VITALS: BP 153/70; PULSE 70; RESP 18; TEMP 36.8; O2SAT 95
[2023-09-25] MEDS: Ascorbic Acid 500 MG TABLET 2000 MG PO (21:57)
[2023-09-25] MEDS: Enoxaparin Sodium 40 MG/0.4 ML SYRINGE SUBCUT (21:57)
--- NOTE | 2023-09-25 22:02 | HO.PSYCHPN ---
Subjective Subjective Date of Service: 09/25/23 Reason For Visit: severe depression Interim History: Patient remains on the medical floor she experience hypokalemia elevated blood sugar The case was reviewed with dr ugarte seen with and son mood depressed with passive si paranoai transfer to [facility] when stable Mental Status Exam Mental Status Exam Narrative: flat fdepressed guarded hopeless helpless pi fearful wishes she were slowed mentation anxious suffering ? reyes Diagnostics Vital Signs (24Hr): Vital Signs - 24 hr 09/25/23 04:00 09/25/23 07:19 09/25/23 12:00 Temperature 98.4 F 97.1 F Pulse Rate 74 80 Respiratory Rate 14 16 Blood Pressure 176/78 H 165/72 H Pulse Oximetry 94 95 96 Oxygen Delivery Method Room Air Room Air Room Air 09/25/23 15:01 09/25/23 19:23 Temperature 98.6 F 98.3 F Pulse Rate 73 70 Respiratory Rate 18 18 Blood Pressure 143/70 H 153/70 H Pulse Oximetry 95 95 Oxygen Delivery Method Room Air Room Air BMI result Body Mass Index 20.8 Labs 09/25/23 09:52 09/25/23 09:52 Labs: Laboratory Results - last 48 hr 09/25/23 09/25/23 09/25/23 05:06 05:53 09:52 WBC 5.9 RBC 4.03 L Hgb 11.7 L Hct 35.9 L MCV 89.1 MCH 29.0 MCHC 32.6 RDW 13.6 Plt Count 334 MPV 10.2 Absolute Nucleated RBC 0.000 Nucleated RBC % (auto) 0.0 Hold Purple Top SEE NOTE Sodium 140 Potassium 3.1 L Chloride 108 Carbon Dioxide 26 Anion Gap 9 L BUN 6 L Creatinine 0.57 Estim Creat Clear Calc 66.3 Estimated GFR > 60 Random Glucose 212 H Calcium 8.7 D Vitamin B12 1167 H Folate 9.8 Imaging Radiology Impressions: ITS Impressions Brain MRI 09/01/23 12:35 IMPRESSION: 1. No acute infarct or other acute intracranial abnormality 2. Moderate chronic microangiopathy Chest X-Ray 09/02/23 10:20 IMPRESSION: Unremarkable examination. Barium Swallow X-Ray 09/03/23 13:56 IMPRESSION: Somewhat limited exam as discussed. 1) Small amount of subglottic aspiration of thick barium noted on first swallow. 2) Irregular mucosal pattern of the superior esophagus suggestive of erosive esophagitis. Given preference of the superior one third of the esophagus, Ann esophagitis (thrush) should be strongly considered. Direct visualization with endoscopy is recommended. Would also recommend direct visualization of the posterior oropharynx to assess for classic plaques of Ann. 3) Marked esophageal dysmotility. Small type I hiatus hernia. Cannot well assess for reflux. 4. Somewhat delayed opening of the LES, suggesting a mild component of achalasia. This procedures performed by French Wheeler PA-C, and supervised by Dr. Webster. The care team was made aware of the findings by French Wheeler PA-C. Modified Barium Swallow 09/04/23 14:25 IMPRESSION: Unremarkable modified barium swallow. Correlate with speech therapy report. Chest X-Ray 09/07/23 18:32 IMPRESSION: NGT tip project in left upper quadrant of abdomen with sideport at or just below expected level of GE junction. Left basilar opacity may represent atelectasis and/or pneumonia. Chest X-Ray 09/13/23 09:25 IMPRESSION: Left basilar atelectasis/infiltrate. Abdomen Ultrasound 09/16/23 17:59 IMPRESSION: Normal-appearing liver. Contracted gallbladder and probable small gallbladder wall polyps. Head CT 09/18/23 15:18 IMPRESSION : No acute intracranial pathology. Medications Medications Current Medications Acetaminophen (Acetaminophen 325 Mg Tablet) 650 mg PO Q4H PRN PRN Reason: Pain, Severe (Pain Scale 7-10) Last Admin: 09/24/23 17:18 Dose: 650 mg Amlodipine Besylate (Amlodipine Besylate 10 Mg Tablet) 10 mg PO DAILY [facility]; Protocol Last Admin: 09/25/23 08:32 Dose: 10 mg Ascorbic Acid (Ascorbic Acid 500 Mg Tablet) 2,000 mg PO BEDTIME [facility] Last Admin: 09/25/23 21:57 Dose: 2,000 mg Enoxaparin Sodium (Enoxaparin Sodium 40 Mg/0.4 Ml Syringe) 40 mg SUBCUT Q24H [facility] Last Admin: 09/25/23 21:57 Dose: 40 mg Fluticasone Propionate (Fluticasone Propionate Nasal 16 Gm [place]) 1 spray NOSTRIL-B BID [facility] Last Admin: 09/25/23 08:32 Dose: 1 spray Hydralazine HCl (Hydralazine Hcl 20 Mg/Ml Vial) 10 mg IVPUSH Q6H PRN; Protocol PRN Reason: htn Last Admin: 09/20/23 12:41 Dose: 10 mg Dextrose/Sodium Chloride (D5ns) 1,000 mls @ 80 mls/hr IVCONT .[id number] [facility] Last Admin: 09/25/23 21:56 Dose: 80 mls/hr Lorazepam (Lorazepam 2 Mg/Ml Vial) 0.5 mg IVPUSH Q6H PRN PRN Reason: Anxiety Last Admin: 09/25/23 15:28 Dose: 0.5 mg Melatonin (Melatonin 3 Mg Tablet) 6 mg PO BEDTIME PRN PRN Reason: Insomnia Last Admin: 09/14/23 21:35 Dose: 6 mg Multivitamins/Vitamin C (Multivitamin Tablet) 1 tab PO DAILY [facility] Last Admin: 09/25/23 08:32 Dose: 1 tab Omeprazole (Omeprazole 20 Mg Capsule.Dr) 20 mg PO DAILY@0630 [facility] Last Admin: 09/25/23 06:09 Dose: 20 mg Ondansetron HCl (Ondansetron Hcl 4 Mg/2 Ml Vial) 4 mg IVPUSH Q8H PRN PRN Reason: Nausea and Vomiting Last Admin: 09/25/23 11:25 Dose: 4 mg Propranolol HCl (Propranolol Hcl 20 Mg Tablet) 20 mg PO TID [facility]; Protocol Last Admin: 09/25/23 21:57 Dose: 20 mg Risperidone (Risperidone 0.25 Mg Tablet) 0.25 mg PO BID [facility] Last Admin: 09/25/23 21:57 Dose: 0.25 mg Sodium Chloride (0.9 % Sodium Chloride Flush 3 Ml Syringe) [facility] Last Admin: 09/25/23 21:58 Dose: 3 ml Tamsulosin HCl (Tamsulosin Hcl 0.4 Mg Capsule) 0.4 mg PO DAILY [facility] Last Admin: 09/25/23 08:32 Dose: 0.4 mg Vortioxetine (Vortioxetine Hydrobromide 5 Mg Tablet) 5 mg PO DAILY [facility] Last Admin: 09/25/23 08:32 Dose: 5 mg Allergies Allergies Allergy/AdvReac Type Severity Reaction Status Date / Time No Known Allergies Allergy Verified 08/27/23 10:27 Assessment & Plan Assessment & Plan (1) Major depressive disorder, recurrent severe without psychotic features: Status: Acute Code(s): F33.2 - Major depressive disorder, recurrent severe without psychotic features (2) Odynophagia: Status: Acute Code(s): R13.10 - Dysphagia, unspecified (3) Paranoia: Status: Acute Code(s): F22 - Delusional disorders (4) Dysphagia: Status: Acute Code(s): R13.10 - Dysphagia, unspecified Plan Referral to [facility] Risperdal 0.25 mg at bedtime 0.25 am one-to-one sitter for safety continue [facility] transfer to [facility] when possible strong consideration for ect get medical clearance Guardian/Caregiver educated on: diagnosis, medication risk/benefits and ECT Reason for continued inpatient stay Substantial Risk for: harm to self and inability to function Time Spent With Patient Time: Total time managing care of this patient today __45__ minutes.
[2023-09-25 23:45] VITALS: BP 159/82; PULSE 83; RESP 16; TEMP 36.8; O2SAT 95
[2023-09-26 03:10] VITALS: BP 158/72; PULSE 72; RESP 16; TEMP 37; O2SAT 94
[2023-09-26] MEDS: Omeprazole 20 MG CAPSULE.DR PO (05:51)
[2023-09-26 07:18] VITALS: BP 172/81; PULSE 77; RESP 18; TEMP 36.7; O2SAT 93
[2023-09-26 07:30] LABS: Anion Gap 8 (12-20); Blood Urea Nitrogen 9 mg/dL (9-16); Calcium 9.1 mg/dL (8.4-10.2); Carbon Dioxide 29 mmol/L (22-29); Chloride 108 mmol/L (96-108); Creatinine Clr Calc Pharmacy 67.5; Estimated Glomerular Filt Rate > 60; Glucose Random 127 mg/dL (60-115); Potassium 3.8 mmol/L (3.3-5.1); Sodium 141 mmol/L (135-145)
[2023-09-26] MEDS: Propranolol HCL 20 MG TABLET PO ×3 (08:19→20:11)
[2023-09-26] MEDS: Vortioxetine Hydrobromide 5 MG TABLET PO (08:19)
[2023-09-26] MEDS: Tamsulosin HCL 0.4 MG CAPSULE PO (08:19)
[2023-09-26] MEDS: Multivitamin TABLET 1 TAB PO (08:19)
[2023-09-26] MEDS: amLODIPine Besylate 10 MG TABLET PO (08:20)
[2023-09-26] MEDS: risperiDONE 0.25 MG TABLET PO ×2 (08:20→20:12)
[2023-09-26] MEDS: 0.9 % Sodium Chloride Flush 3 ML SYRINGE IVFLUSH (08:29)
[2023-09-26] MEDS: Fluticasone Propionate Nasal 16 GM SPRAY 1 SPRAY NOSTRIL-B ×2 (08:31→20:18)
--- NOTE | 2023-09-26 09:02 | HO.PM.IMPN ---
Subjective Subjective Date of Service: 09/26/23 Interval History: remains depressed and hypoactve, Physical Exam Vital Signs: Vital Signs: Last Vital Signs Temp 98.0 F 09/26/23 07:18 Pulse 77 09/26/23 07:18 Resp 18 09/26/23 07:18 BP 172/81 H 09/26/23 07:18 Pulse Ox 93 09/26/23 07:18 O2 Del Method Room Air 09/26/23 07:18 O2 Flow Rate 2 09/14/23 11:51 BMI result Body Mass Index 20.8 Const: Other: General: AO X 3, no acute distress Resp: CTA bilateral CVS: S1,S2,RRR GI: +BS, NT, no distention Skin: No rash Neuro: motor grossly intact Psych: flat affect Objective Data Active Medications Acetaminophen (Acetaminophen 325 Mg Tablet) 650 mg PO Q4H PRN PRN Reason: Pain, Severe (Pain Scale 7-10) Last Admin: 09/24/23 17:18 Dose: 650 mg Documented By: IRON Amlodipine Besylate (Amlodipine Besylate 10 Mg Tablet) 10 mg PO DAILY [facility]; Protocol Last Admin: 09/26/23 08:20 Dose: 10 mg Documented By: RAMBO Ascorbic Acid (Ascorbic Acid 500 Mg Tablet) 2,000 mg PO BEDTIME [facility] Last Admin: 09/25/23 21:57 Dose: 2,000 mg Documented By: RAGINI Enoxaparin Sodium (Enoxaparin Sodium 40 Mg/0.4 Ml Syringe) 40 mg SUBCUT Q24H [facility] Last Admin: 09/25/23 21:57 Dose: 40 mg Documented By: RAGINI Fluticasone Propionate (Fluticasone Propionate Nasal 16 Gm [place]) 1 spray NOSTRIL-B BID [facility] Last Admin: 09/26/23 08:31 Dose: 1 spray Documented By: RAMBO Hydralazine HCl (Hydralazine Hcl 20 Mg/Ml Vial) 10 mg IVPUSH Q6H PRN; Protocol PRN Reason: htn Last Admin: 09/20/23 12:41 Dose: 10 mg Documented By: HARIKA Dextrose/Sodium Chloride (D5ns) 1,000 mls @ 80 mls/hr IVCONT .[id number] [facility] Last Admin: 09/25/23 21:56 Dose: 80 mls/hr Documented By: RAGINI Lorazepam (Lorazepam 2 Mg/Ml Vial) 0.5 mg IVPUSH Q6H PRN PRN Reason: Anxiety Last Admin: 09/25/23 15:28 Dose: 0.5 mg Documented By: IRON Melatonin (Melatonin 3 Mg Tablet) 6 mg PO BEDTIME PRN PRN Reason: Insomnia Last Admin: 09/14/23 21:35 Dose: 6 mg Documented By: KEITH Multivitamins/Vitamin C (Multivitamin Tablet) 1 tab PO DAILY [facility] Last Admin: 09/26/23 08:19 Dose: 1 tab Documented By: RAMBO Omeprazole (Omeprazole 20 Mg Capsule.Dr) 20 mg PO DAILY@0630 [facility] Last Admin: 09/26/23 05:51 Dose: 20 mg Documented By: RAGINI Ondansetron HCl (Ondansetron Hcl 4 Mg/2 Ml Vial) 4 mg IVPUSH Q8H PRN PRN Reason: Nausea and Vomiting Last Admin: 09/25/23 11:25 Dose: 4 mg Documented By: IRON Propranolol HCl (Propranolol Hcl 20 Mg Tablet) 20 mg PO TID [facility]; Protocol Last Admin: 09/26/23 08:19 Dose: 20 mg Documented By: RAMBO Risperidone (Risperidone 0.25 Mg Tablet) 0.25 mg PO BID [facility] Last Admin: 09/26/23 08:20 Dose: 0.25 mg Documented By: RAMBO Sodium Chloride (0.9 % Sodium Chloride Flush 3 Ml Syringe) [facility] Last Admin: 09/26/23 08:29 Dose: 3 ml Documented By: RAMBO Tamsulosin HCl (Tamsulosin Hcl 0.4 Mg Capsule) 0.4 mg PO DAILY [facility] Last Admin: 09/26/23 08:19 Dose: 0.4 mg Documented By: RAMBO Vortioxetine (Vortioxetine Hydrobromide 5 Mg Tablet) 5 mg PO DAILY [facility] Last Admin: 09/26/23 08:19 Dose: 5 mg Documented By: RAMBO Labs 09/25/23 09:52 09/26/23 06:14 Labs: Laboratory Results - last 24 hr 09/25/23 09/26/23 09:52 06:14 MCV 89.1 MCH 29.0 MCHC 32.6 RDW 13.6 Plt Count 334 MPV 10.2 Absolute Nucleated RBC 0.000 Nucleated RBC % (auto) 0.0 Hold Purple Top SEE NOTE Anion Gap 9 L 8 L Estim Creat Clear Calc 66.3 67.5 Estimated GFR > 60 > 60 Random Glucose 212 H 127 H Calcium 8.7 D 9.1 Assessment and Plan (1) Major depressive disorder, recurrent severe without psychotic features: Status: Acute (2) Delirium: Status: Acute Plan 72F PMH HTN, ADHD, anxiety, depression, presented with agitation, tremors, ataxia Initial Agitation and tremors were thought to be related to serotonin syndrome but clinically didn't prove to be. Agitation resolved Periods of unresponsiveness/Hypoactive state not characteristic of catatonia, with variable response to Ativan; in fact, Ativan caused more sedation. Her condition is more suggestive of hypoactive delirium. She has improved; she is awake, alert, and more interactive. Avoid ativan at this, except for severe anxiety. Testing has included CT and MRI of the head, which were unremarkable. She has been followed by Psych and was seen by Neurology during this stay. Ongoing discussion with Psych about possible [facility] transfer next week Dysphagia speech recommends NND1 + thin liquid. She was to have EGD but will be rescheduled at a later time by Dr. Rivas Elevated lfts's US of the abdomen--Normal-appearing liver. Contracted gallbladder and probable small gallbladder wall polyps. Hep a, b, c negative TWI noted on ECG to check for QTC, no other symptoms, trops negative x 2, seen by cardiology Echo nl LVEF, no WMA. No further testing at this time hypOkalemia, corrected, K low will correct Decrease O2, no fever, CXR showed atelectasis, resolved. urinary retention, straight cath PRN UTI--urine culture, ESBL E.coli Ceftriaxone 09/14 changed to bactrim on 09/16/23 -will change to meropenem since can not take po Id eval noted- completed total 7 days ( including 2 days bactrim and 5 days meropenem) HTN--BP high on propranolol and Norvasc, addded Lisinopril 5 on 09/26 Tachycardia-- d/t not taking Propranolol, resolved. Purulent discharge from right eye and redness--Abx drop, resolved. DVT prophylaxis - lovenox. code status - full code PT is recommending short-term rehab. reason for continued hospitalization: awaiting safe dispo Quality Stroke Does the patient have a stroke diagnosis?: No VTE Prior VTE?: No VTE Risk Level:: Medical - moderate - high VTE Device Contraindication: Treatment Not Indicated VTE Drug Contraindication: N/A - Med Ordered
[2023-09-26] MEDS: lisinopriL 5 MG TABLET PO (09:50)
[2023-09-26] MEDS: Dextrose 5 % and 0.9 % NaCl 1,000 ML 80 ML IVCONT (10:45)
[2023-09-26 12:00] VITALS: BP 126/65; PULSE 67; RESP 18; TEMP 36.7; O2SAT 94
[2023-09-26] MEDS: LORazepam 2 MG/ML VIAL 0.5 MG IVPUSH (14:32)
[2023-09-26 16:00] VITALS: BP 149/72; PULSE 78; RESP 18; TEMP 36.4; O2SAT 95
[2023-09-26 20:00] VITALS: BP 137/65; PULSE 81; RESP 18; TEMP 36.6; O2SAT 95
[2023-09-26] MEDS: Ascorbic Acid 500 MG TABLET 2000 MG PO (20:11)
[2023-09-26] MEDS: Enoxaparin Sodium 40 MG/0.4 ML SYRINGE SUBCUT (20:12)
[2023-09-27] VITALS: BP 143/68; PULSE 67; RESP 16; TEMP 37; O2SAT 95
[2023-09-27] MEDS: Omeprazole 20 MG CAPSULE.DR PO (06:42)
[2023-09-27 07:31] VITALS: BP 166/77; PULSE 75; RESP 16; TEMP 36.5; O2SAT 93
--- NOTE | 2023-09-27 09:43 | P.PNIM_ITS ---
Subjective Subjective Date of Service: 09/27/23 Interval History: She seems more awake today, more interactive Physical Exam 2 Vital Signs: Vital Signs: Last Vital Signs Temp 97.7 F 09/27/23 07:31 Pulse 75 09/27/23 07:31 Resp 16 09/27/23 07:31 BP 166/77 H 09/27/23 07:31 Pulse Ox 93 09/27/23 07:31 O2 Del Method Room Air 09/27/23 07:31 O2 Flow Rate 2 09/14/23 11:51 BMI result Body Mass Index 20.8 Const: Other: General: alert and oriented x 3 today Resp: CTA bilateral CVS: S1,S2,RRR GI: +BS, NT, no distention Skin: No rash Neuro: motor grossly intact Psych: flat affect Objective Data Active Medications Acetaminophen (Acetaminophen 325 Mg Tablet) 650 mg PO Q4H PRN PRN Reason: Pain, Severe (Pain Scale 7-10) Last Admin: 09/24/23 17:18 Dose: 650 mg Documented By: IRON Amlodipine Besylate (Amlodipine Besylate 10 Mg Tablet) 10 mg PO DAILY [facility]; Protocol Last Admin: 09/26/23 08:20 Dose: 10 mg Documented By: RAMBO Ascorbic Acid (Ascorbic Acid 500 Mg Tablet) 2,000 mg PO BEDTIME [facility] Last Admin: 09/26/23 20:11 Dose: 2,000 mg Documented By: MADELINE Enoxaparin Sodium (Enoxaparin Sodium 40 Mg/0.4 Ml Syringe) 40 mg SUBCUT Q24H [facility] Last Admin: 09/26/23 20:12 Dose: 40 mg Documented By: MADELINE Fluticasone Propionate (Fluticasone Propionate Nasal 16 Gm [place]) 1 spray NOSTRIL-B BID [facility] Last Admin: 09/26/23 20:18 Dose: 1 spray Documented By: MADELINE Hydralazine HCl (Hydralazine Hcl 20 Mg/Ml Vial) 10 mg IVPUSH Q6H PRN; Protocol PRN Reason: htn Last Admin: 09/20/23 12:41 Dose: 10 mg Documented By: HARIKA Lisinopril (Lisinopril 5 Mg Tablet) 5 mg PO DAILY [facility]; Protocol Last Admin: 09/26/23 09:50 Dose: 5 mg Documented By: RAMBO Lorazepam (Lorazepam 2 Mg/Ml Vial) 0.5 mg IVPUSH Q6H PRN PRN Reason: Anxiety Last Admin: 09/26/23 14:32 Dose: 0.5 mg Documented By: MARCUS Melatonin (Melatonin 3 Mg Tablet) 6 mg PO BEDTIME PRN PRN Reason: Insomnia Last Admin: 09/14/23 21:35 Dose: 6 mg Documented By: KEITH Multivitamins/Vitamin C (Multivitamin Tablet) 1 tab PO DAILY [facility] Last Admin: 09/26/23 08:19 Dose: 1 tab Documented By: RAMBO Omeprazole (Omeprazole 20 Mg Capsule.Dr) 20 mg PO DAILY@0630 [facility] Last Admin: 09/27/23 06:42 Dose: 20 mg Documented By: KAYA Ondansetron HCl (Ondansetron Hcl 4 Mg/2 Ml Vial) 4 mg IVPUSH Q8H PRN PRN Reason: Nausea and Vomiting Last Admin: 09/25/23 11:25 Dose: 4 mg Documented By: IRON Propranolol HCl (Propranolol Hcl 20 Mg Tablet) 20 mg PO TID [facility]; Protocol Last Admin: 09/26/23 20:11 Dose: 20 mg Documented By: MADELINE Risperidone (Risperidone 0.25 Mg Tablet) 0.25 mg PO BID [facility] Last Admin: 09/26/23 20:12 Dose: 0.25 mg Documented By: MADELINE Sodium Chloride (0.9 % Sodium Chloride Flush 3 Ml Syringe) [address] [facility] Last Admin: 09/27/23 09:07 Dose: Not Given Documented By: JOSÉ Non-Admin Reason: Previously Administered Tamsulosin HCl (Tamsulosin Hcl 0.4 Mg Capsule) 0.4 mg PO DAILY [facility] Last Admin: 09/26/23 08:19 Dose: 0.4 mg Documented By: RAMBO Vortioxetine (Vortioxetine Hydrobromide 5 Mg Tablet) 5 mg PO DAILY [facility] Last Admin: 09/26/23 08:19 Dose: 5 mg Documented By: RAMBO Labs 09/25/23 09:52 09/26/23 06:14 Assessment and Plan (1) Major depressive disorder, recurrent severe without psychotic features: Status: Acute (2) Delirium: Status: Acute Plan 72F PMH HTN, ADHD, anxiety, depression, presented with agitation, tremors, ataxia Initial Agitation and tremors were thought to be related to serotonin syndrome but clinically didn't prove to be the case. Agitation resolved Periods of unresponsiveness/Hypoactive state not characteristic of catatonia, with variable response to Ativan; in fact, Ativan caused more sedation. Her condition is more suggestive of hypoactive delirium. She has improved; she is awake, alert, and more interactive. Avoid ativan at this, except for severe anxiety. Testing has included CT and MRI of the head, which were unremarkable. She is followed by Psych and was seen by Neurology during this stay. Ongoing discussion with Psych about possible [facility] transfer next week Dysphagia speech recommends NND1 + thin liquid. She was to have EGD but will be rescheduled at a later time by Dr. Rivas Elevated lfts's US of the abdomen--Normal-appearing liver. Contracted gallbladder and probable small gallbladder wall polyps. Hep a, b, c negative TWI noted on ECG to check for QTC, no other symptoms, trops negative x 2, seen by cardiology Echo nl LVEF, no WMA. No further testing at this time hypOkalemia, corrected, K low will correct Decrease O2, no fever, CXR showed atelectasis, resolved. urinary retention, straight cath PRN UTI--urine culture, ESBL E.coli Ceftriaxone 09/14 changed to bactrim on 09/16/23 -will change to meropenem since can not take po Id eval noted- completed total 7 days ( including 2 days bactrim and 5 days meropenem) HTN--BP high on propranolol and Norvasc, addded Lisinopril 5 on 09/26, increase to 10 Tachycardia-- d/t not taking Propranolol, resolved. Purulent discharge from right eye and redness--Abx drop, resolved. DVT prophylaxis - lovenox. code status - full code PT is recommending short-term rehab. reason for continued hospitalization: awaiting safe dispo Quality Stroke Does the patient have a stroke diagnosis?: No VTE Prior VTE?: No VTE Risk Level:: Medical - moderate - high VTE Device Contraindication: Treatment Not Indicated VTE Drug Contraindication: N/A - Med Ordered
[2023-09-27] MEDS: Tamsulosin HCL 0.4 MG CAPSULE PO (10:09)
[2023-09-27] MEDS: Multivitamin TABLET 1 TAB PO (10:09)
[2023-09-27] MEDS: lisinopriL 5 MG TABLET PO (10:09)
[2023-09-27] MEDS: risperiDONE 0.25 MG TABLET PO ×2 (10:09→20:02)
[2023-09-27] MEDS: Propranolol HCL 20 MG TABLET PO ×3 (10:09→20:02)
[2023-09-27] MEDS: amLODIPine Besylate 10 MG TABLET PO (10:09)
[2023-09-27] MEDS: Fluticasone Propionate Nasal 16 GM SPRAY 1 SPRAY NOSTRIL-B (10:10)
[2023-09-27] MEDS: Vortioxetine Hydrobromide 5 MG TABLET PO (10:10)
[2023-09-27 10:11] VITALS: BP 139/65; PULSE 73; O2SAT 93
[2023-09-27 10:43] LABS: Anion Gap 12 (12-20); Blood Urea Nitrogen 10 mg/dL (9-16); Calcium 9.4 mg/dL (8.4-10.2); Carbon Dioxide 27 mmol/L (22-29); Chloride 105 mmol/L (96-108); Estimated Glomerular Filt Rate > 60; Glucose Random 176 mg/dL (60-115); Potassium 3.5 mmol/L (3.3-5.1); Sodium 140 mmol/L (135-145)
[2023-09-27] MEDS: Acetaminophen 325 MG TABLET 650 MG PO (11:21)
[2023-09-27 15:44] VITALS: BP 145/70; PULSE 68; RESP 17; TEMP 36.8; O2SAT 95
[2023-09-27] MEDS: Ascorbic Acid 500 MG TABLET 2000 MG PO (20:02)
[2023-09-27] MEDS: Enoxaparin Sodium 40 MG/0.4 ML SYRINGE SUBCUT (20:03)
[2023-09-27 23:54] VITALS: BP 168/73; PULSE 63; RESP 18; TEMP 36.3; O2SAT 95
[2023-09-28] MEDS: Omeprazole 20 MG CAPSULE.DR PO (06:00)
[2023-09-28 07:14] VITALS: BP 148/72; PULSE 66; RESP 18; TEMP 36.5; O2SAT 94
[2023-09-28] MEDS: lisinopriL 5 MG TABLET 15 MG PO (08:25)
[2023-09-28] MEDS: Multivitamin TABLET 1 TAB PO (08:26)
[2023-09-28] MEDS: Vortioxetine Hydrobromide 5 MG TABLET PO (08:26)
[2023-09-28] MEDS: Tamsulosin HCL 0.4 MG CAPSULE PO (08:26)
[2023-09-28] MEDS: amLODIPine Besylate 10 MG TABLET PO (08:26)
[2023-09-28] MEDS: risperiDONE 0.25 MG TABLET PO (08:26)
[2023-09-28] MEDS: Propranolol HCL 20 MG TABLET PO (08:26)
--- NOTE | 2023-09-28 09:54 | HO.PM.IMPN ---
Subjective Subjective Date of Service: 09/28/23 Interval History: Awake and interactive Physical Exam Vital Signs: Vital Signs: Last Vital Signs Temp 97.7 F 09/28/23 07:14 Pulse 66 09/28/23 07:14 Resp 18 09/28/23 07:14 BP 148/72 H 09/28/23 07:14 Pulse Ox 94 09/28/23 07:14 O2 Del Method Room Air 09/28/23 07:14 O2 Flow Rate 2 09/14/23 11:51 BMI result Body Mass Index 20.8 Const: Other: General: alert and oriented x 3 today Resp: CTA bilateral CVS: S1,S2,RRR GI: +BS, NT, no distention Skin: No rash Neuro: motor grossly intact Psych: flat affect Objective Data Active Medications Acetaminophen (Acetaminophen 325 Mg Tablet) 650 mg PO Q4H PRN PRN Reason: Pain, Severe (Pain Scale 7-10) Last Admin: 09/27/23 11:21 Dose: 650 mg Documented By: JOSÉ Amlodipine Besylate (Amlodipine Besylate 10 Mg Tablet) 10 mg PO DAILY [facility]; Protocol Last Admin: 09/28/23 08:26 Dose: 10 mg Documented By: YENNY Ascorbic Acid (Ascorbic Acid 500 Mg Tablet) 2,000 mg PO BEDTIME [facility] Last Admin: 09/27/23 20:02 Dose: 2,000 mg Documented By: THUY Enoxaparin Sodium (Enoxaparin Sodium 40 Mg/0.4 Ml Syringe) 40 mg SUBCUT Q24H [facility] Last Admin: 09/27/23 20:03 Dose: 40 mg Documented By: THUY Fluticasone Propionate (Fluticasone Propionate Nasal 16 Gm [place]) 1 spray NOSTRIL-B BID [facility] Last Admin: 09/28/23 08:36 Dose: Not Given Documented By: YENNY Non-Admin Reason: Med Not Available Lisinopril (Lisinopril 5 Mg Tablet) 15 mg PO DAILY [facility]; Protocol Last Admin: 09/28/23 08:25 Dose: 15 mg Documented By: YENNY Lorazepam (Lorazepam 2 Mg/Ml Vial) 0.5 mg IVPUSH Q6H PRN PRN Reason: Anxiety Last Admin: 09/26/23 14:32 Dose: 0.5 mg Documented By: MARCUS Lorazepam (Lorazepam 0.5 Mg Tablet) 0.5 mg PO Q4H PRN PRN Reason: Anxiety Melatonin (Melatonin 3 Mg Tablet) 6 mg PO BEDTIME PRN PRN Reason: Insomnia Last Admin: 09/14/23 21:35 Dose: 6 mg Documented By: KEITH Multivitamins/Vitamin C (Multivitamin Tablet) 1 tab PO DAILY [facility] Last Admin: 09/28/23 08:26 Dose: 1 tab Documented By: YENNY Omeprazole (Omeprazole 20 Mg Capsule.Dr) 20 mg PO DAILY@0630 [facility] Last Admin: 09/28/23 06:00 Dose: 20 mg Documented By: THUY Ondansetron HCl (Ondansetron Hcl 4 Mg/2 Ml Vial) 4 mg IVPUSH Q8H PRN PRN Reason: Nausea and Vomiting Last Admin: 09/25/23 11:25 Dose: 4 mg Documented By: IRON Propranolol HCl (Propranolol Hcl 20 Mg Tablet) 20 mg PO TID [facility]; Protocol Last Admin: 09/28/23 08:26 Dose: 20 mg Documented By: YENNY Risperidone (Risperidone 0.25 Mg Tablet) 0.25 mg PO BID [facility] Last Admin: 09/28/23 08:26 Dose: 0.25 mg Documented By: YENNY Sodium Chloride (0.9 % Sodium Chloride Flush 3 Ml Syringe) 3 ml IVFLUSH QSHIFT [facility] Last Admin: 09/28/23 08:25 Dose: Not Given Documented By: YENNY Non-Admin Reason: No Access Tamsulosin HCl (Tamsulosin Hcl 0.4 Mg Capsule) 0.4 mg PO DAILY [facility] Last Admin: 09/28/23 08:26 Dose: 0.4 mg Documented By: YENNY Vortioxetine (Vortioxetine Hydrobromide 5 Mg Tablet) 5 mg PO DAILY [facility] Last Admin: 09/28/23 08:26 Dose: 5 mg Documented By: YENNY Labs 09/25/23 09:52 09/27/23 10:03 Labs: Laboratory Results - last 24 hr 09/27/23 10:03 Hold Purple Top SEE NOTE Anion Gap 12 Estim Creat Clear Calc 64.0 Estimated GFR > 60 Random Glucose 176 H Calcium 9.4 Assessment and Plan (1) Major depressive disorder, recurrent severe without psychotic features: Status: Acute (2) Delirium: Status: Acute Plan 72F PMH HTN, ADHD, anxiety, depression, presented with agitation, tremors, ataxia Initial Agitation and tremors were thought to be related to serotonin syndrome but clinically didn't prove to be the case. Agitation resolved Periods of unresponsiveness/Hypoactive state not characteristic of catatonia, with variable response to Ativan; in fact, Ativan caused more sedation. Her condition was more suggestive of hypoactive delirium. She has improved; she is awake, alert, and more interactive. Avoid ativan at this, except for severe anxiety. Testing has included CT and MRI of the head, which were unremarkable. She is followed by Psych and was seen by Neurology during this stay. Ongoing discussion with Psych about possible [facility] transfer next week Dysphagia speech recommends NND1 + thin liquid. She was to have EGD but will be rescheduled at a later time by Dr. Rivas Elevated LFTs US of the abdomen--Normal-appearing liver. Contracted gallbladder and probable small gallbladder wall polyps. Hep a, b, c negative TWI noted on ECG to check for QTC, no other symptoms, trops were negative x 2, seen by cardiology Echo nl LVEF, no WMA. No further testing at this time hypOkalemia, corrected, Decrease O2 at some point, no fever, CXR showed atelectasis, resolved. urinary retention, straight cath PRN UTI--urine culture, ESBL E.coli Ceftriaxone 09/14 changed to bactrim on 09/16/23 -will change to meropenem since can not take po Id eval noted- completed total 7 days ( including 2 days bactrim and 5 days meropenem) HTN--BP high on propranolol and Norvasc, addded Lisinopril 5 on 09/26, increase to 15 Tachycardia-- d/t not taking Propranolol, resolved. Purulent discharge from right eye and redness--Abx drop, resolved. DVT prophylaxis - lovenox. code status - full code PT is recommending short-term rehab vs geripsych admission, will discuss with Psych provider if able to go to [facility] reason for continued hospitalization: awaiting safe dispo Quality Stroke Does the patient have a stroke diagnosis?: No VTE Prior VTE?: No VTE Risk Level:: Medical - moderate - high VTE Device Contraindication: Treatment Not Indicated VTE Drug Contraindication: N/A - Med Ordered
--- NOTE | 2023-09-28 10:36 | MHC.SL.SWA ---
Speech Pathologist Impression: Risk of aspiration, oral phase dysphagia Risk of Aspiration Due to: Neurological Condition Poor PO Intake Weak Cough Weak Voice Dysphasia Diet Status: Recommend continue on Pureed (NDD1) with thin liquids, pills crushed in puree, per patient's request/preference. Liquid Consistency and Strategies for Safe Swallow: Liquid Intake Recommendation: Thin Liquid Intake Strategies: Small Sips Solid Food Consistency: Dietary Recommendations: Pureed (NDD1) Additional Modifications to Solid Foods: Pt refusing all offerings of solid foods and insisting she must have all foods pureed. Continue on Pureed (NDD1) with thin liquids, pills crushed in puree, per patient's request/preference. ST to be d/c per MD as this was PARTS SALES MANAGER's third attempt to evaluate pt. Please re-refer with any changes or further concern. Oral Medication Intake: Crushed with Puree Please contact the pharmacy regarding appropriate crushable or liquid drug formulations that are available whenever modified delivery is recommended. Compensatory Strategies and Precautions to be Taken for Safe Swallow: Sitting Upright (90 deg) Small Bites and Sips Alternate Liquids/Solids Supervision While Eating and Drinking for Safe Swallow: Intermittent Supervision Swallowing Recommended Treatments: Compens. Strategy Educat. Recommendation for Speech: D/C Product Manager Clinican/Clinical Fellow: No Supervisory Statement: I have reviewed and agree with the student/clinical fellow's documentation: N/A Speech Language Pathologist: Jeannine Almaguer M.A., [facility]-[employer] SALES MANAGER
--- NOTE | 2023-09-28 10:40 | P.DS_ITS ---
DS: Providers Provider Date of Service: 09/28/23 Date of admission: 08/29/23 12:12 Primary care physician: Tami Francis MD Consults: 08/27/23 23:02 Consult to Psychiatry Routine Consulting Provider: [facility] Reason for consultation: Mood disorder, anti psych optimization 08/28/23 08:34 Consult to Neurology Routine Consulting Provider: [facility] Reason for consultation: Possible serotonin syndrome 09/04/23 11:02 Consult to Gastroenterology Routine Consulting Provider: Corinne Rivas Reason for consultation: abnormal barium swallow Has provider been notified: No 09/04/23 17:00 Consult to Cardiology Routine Consulting Provider: [facility] Cardiovascular Services Reason for consultation: ekg changes Has provider been notified: No 09/06/23 15:29 Consult for Sitter Routine Reason for consultation: not to hurt self 09/18/23 09:05 Consult to Infectious Diseases Routine Consulting Provider: [facility] Infectious Disease Reason for consultation: esbl uti-psych need clearnece Has provider been notified: No 09/18/23 13:41 Consult to Neurology Routine Consulting Provider: [facility] Reason for consultation: delirum Has provider been notified: No 09/18/23 13:53 Consult to Infectious Diseases Stat Consulting Provider: [facility] Infectious Disease Reason for consultation: meropenem 09/21/23 17:48 Consult for Sitter Routine Reason for consultation: pt with si dr jj notified Has provider been notified: Yes DS: Diagnosis Discharge Diagnosis (1) Major depressive disorder, recurrent severe without psychotic features: Status: Acute (2) Delirium: Status: Acute DS: Summary Hospital Course Hospital Course: 72-year-old female with a PMH significant for?HTN, ADHD, GED, and depression who presents to the ED for evaluation of increased agitation, depression, tremors, and inability to walk. Patient with extensive psychiatric history and admissions for inpatient psychiatric care, followed by Dr. Shearer who has made recent changes to her psychiatric medications including addition of brexpiprazole and clomipramine. Patient reports a previous history of upper extremity tremors, but states that over the past week has noticed worsening tremors in her hands and the development of tremors in her feet which has made it difficult to walk. Has also been experiencing difficulty speaking, and increased agitation and depression over the past few days. States she has not been eating or drinking adequately. Denies any SI. Patient also denies any other acute medical complaints. No chest pain/pressure, palpitations. Denies fever, chills, nausea, vomiting, abdominal pain. No difficulty breathing, shortness of breath. In the ED patient was afebrile, but tachycardic to 111 and initially hypertensive up to 170/122. Labs were significant for leukocytosis of 13.9, H&H 16.3/49.1, sodium 134, AST 66, ALT 179, otherwise grossly unremarkable. EKG demonstrated normal sinus rhythm without ST elevations or depressions. Pt was treated with IV Ativan and IVF. Pt will be admitted to the hospital for treatment and further evaluation of increased agitation, tremors, and ataxia concerning for serotonin syndrome. Hospital course: The patient initially presented with agitation and tremors, and there was concern that she may have been having serotonin syndrome. She was treated accordingly, but her clinical course ultimately did not fit serotonin syndrome. Her agitation resolved, but she was followed by periods of hyporesponsiveness, as discussed below. The patient's periods of unresponsiveness and hypoactive state were not characteristic of catatonia. She was treated for possible catatonia with Ativan, but this had variable effect and may have contributed to oversedation. She would go days without waking up, but her vitals remained stable. Her condition was more suggestive of hypoactive delirium. She has since improved and is now awake, alert, and more interactive. She is taking Ativan on an as-needed basis for anxiety. Further testing, including a CT and MRI of the head, was unremarkable. The patient was evaluated by Neurology, who recommended BZD and ECT. Psychiatry has been following her diligently to help with her medication management. At this point, she will be transitioned to Geriatric Psychiatry for further treatment of what appears to be major depression with severe anxiety. No further cardiac testing is indicating before ECT before should obtain routine ECG Dysphagia: This was evaluated by GI (Dr. Rivas). An EGD was planned, but the patient was never medically stable enough to undergo the procedure. Speech therapy recommends a NND1 + thin liquid diet. The patient has resisted attempts by speech therapy to upgrade her diet. She should follow up with GI and Speech. Elevated LFTs: An ultrasound of the abdomen showed a normal-appearing liver, a contracted gallbladder, and probable small gallbladder wall polyps. Hep A, B, an d C are negative. LFTs have been trending down. TWI noted on ECG: The patient's ECG showed TWI, which was monitored for QTc. The patient had no other symptoms, and troponins were negative twice. She was seen by Cardiology, who performed an echo, which showed normal LVEF and no WMA. No further testing was recommended. Hypokalemia: This was corrected. Decrease in O2: The patient had decreased O2 at some point during her hospitalization, but she had no fever. CXR showed atelectasis. Hypoxia resolved. The patient is now breathing comfortably on room air. Urinary retention: The patient had urinary retention and required a straight cath PRN, but she no longer needs it. UTI: The patient had a UTI with ESBL E. coli. She was treated with ceftriaxone from 09/14 to 09/16/23, then switched to bactrim. Because she cannot take PO medications, she will be switched to meropenem. ID tabitha noted: The patient completed a total of 7 days of antibiotics, including 2 days of bactrim and 5 days of meropenem. HTN: The patient's blood pressure was high on propranolol and Norvasc. Lisinopril 5 was added on 09/26, and the dose was increased to 15 on 09/28. The dose may be further increased to 20 daily as needed. Tachycardia: The patient had tachycardia earlier during her hospitalization due to not taking propranolol. This resolved once propranolol was reinstated. Purulent discharge from right eye and redness: The patient had purulent discharge from her right eye and redness. She was treated with antibiotic eye drops, and the discharge and redness resolved. Time Attestation Discharge coordination time: Greater than 30 minutes Quality: Safe Use of Opioids Does Pt have an Active Cancer Diagnosis on the Problem List?: No Quality: Stroke Does the patient have a stroke diagnosis?: No Physical Exam Vital Signs: Vital Signs: Last Vital Signs Temp 97.7 F 09/28/23 07:14 Pulse 66 09/28/23 07:14 Resp 18 09/28/23 07:14 BP 148/72 H 09/28/23 07:14 Pulse Ox 94 09/28/23 07:14 O2 Del Method Room Air 09/28/23 07:14 O2 Flow Rate 2 09/14/23 11:51 BMI result Body Mass Index 20.8 DS: Data Data Completed and Pending Labs on day of discharge: Laboratory Results - last 24 hr 09/27/23 10:03 Sodium 140 Potassium 3.5 Chloride 105 Carbon Dioxide 27 Anion Gap 12 BUN 10 Creatinine 0.59 Estim Creat Clear Calc 64.0 Estimated GFR > 60 Random Glucose 176 H Calcium 9.4 Discharge Plan Discharge Anticipated Discharge Date/Time: 09/16/23 11:21 Patient Disposition: Xfer Psychiatric Hosp Discharge Diagnosis: hypoactive delirum, elevated lft's Referrals: Tami Francis MD [Primary Care Provider] - 1 Week Discharge Medications: New omeprazole 20 mg Capsule,Delayed Release(Dr/Ec) 20 mg PO DAILY@0630 Qty: 30 0RF sulfamethoxazole-trimethoprim 800-160 mg Tablet 1 tab PO Q12H Qty: 12 0RF moxifloxacin 0.5 % Drops 1 drp ophthalmic (eye) BID Qty: 3 0RF bupropion HCl 75 mg Tablet 75 mg PO DAILY Qty: 1 0RF risperidone 0.25 mg Tablet 0.25 mg PO BID Qty: 30 0RF tamsulosin 0.4 mg Capsule 0.4 mg PO DAILY Qty: 30 0RF lisinopril 5 mg Tablet 15 mg PO DAILY Qty: 30 0RF Protocol: Hold for SBP< HOLD for SBP < : 90 Trintellix 5 mg Tablet 5 mg PO DAILY Qty: 7 0RF melatonin 3 mg Tablet 6 mg PO BEDTIME PRN (Reason: Insomnia) Qty: 20 0RF Continued multivitamin [Daily-Dara] Tablet 1 tab PO DAILY 30 Days Qty: 30 0RF ascorbic acid (vitamin C) [Vitamin C] 500 mg Tablet 2,000 mg PO BEDTIME 30 Days Qty: 120 0RF amlodipine 5 mg tablet 10 mg PO DAILY fluticasone propionate 50 mcg/actuation spray,suspension 1 spray intranasal BID propranolol 20 mg tablet 20 mg PO BID Discontinued lithium carbonate 300 mg tablet 300 mg PO BEDTIME 90 Days Qty: 90 1RF clomipramine 25 mg capsule 50 mg PO BEDTIME Qty: 60 1RF alprazolam 0.25 mg tablet 0.5 mg PO TID PRN (Reason: anxiety) Spravato 56 mg (28 mg x 2) spray,non-aerosol 84 mg intranasal TUTH fluoxetine 40 mg capsule 80 mg PO DAILY 90 Days Qty: 180 1RF brexpiprazole 1 mg tablet 0.5 mg PO DAILY Qty: 30 2RF Discharge Orders: Discharge Order (Routine); Ordered 09/28/23 Ordered By: Jb Jj Diet: Advance to usual diet Activity on Discharge: As tolerated Stand Alone Forms: Patient Portal Discharge page Care Plan Goals: Resolution of dpression, and hypoactive delirium Health Concerns: Major depression, Hypoactive dlirium Plan of Treatment: Patient is to be addmitted to [facility] for further management of Major Depression that is persistent
--- NOTE | 2023-09-28 11:00 | MHC.CM.PN ---
PER MD ROUNDS, PT TO TRANFER TO [facility] TODAY
--- NOTE | 2023-09-28 11:43 | MHC.CLN ---
F/U PATIENT WITH IMPROVED INTAKE. PO 88=888% X 5 DAYS. CONTINUE MAGIC CUP SUPPLEMENT BID (580 KCALS, 18 G PROTEIN). DISCONTINUE ENSURE CLEAR DUE TO USUALLY GOOD PO INTAKE. DIET=REGULAR, PUREE. PREFERS PUREE CONSISTENCY. PLAN IS TO TRANSFER TO [facility] TODAY. RD WILL FOLLOW UP WEEKLY WITH PATIENT.
[2023-09-30 11:59] LABS: Vitamin D 25-OH, D2 <4 ng/mL; Vitamin D 25-OH, D3 31 ng/mL; Vitamin D 25-OH, Total 31 ng/mL (30-100)
== END 2023-09-28 12:41 | DRG 91 ==
LOC: HO.ED 18:57 → HO.EDOVER 21:12 → HO.IMC 08-28 05:59 → HO.S3 08-30 22:15 → HO.IMC 09-14 01:00 → HO.S3 09-17 18:41
PROVIDERS: Internal Medicine; Physician Assistant Medical; Psychiatry & Neurology Psychiatry; Social Worker; Admitting Provider Student in an Organized Health Care Education/Training Program; Emergency Provider Emergency Medicine; PCP Internal Medicine; Visit Provider Internal Medicine
DX: G25.2 Other specified forms of tremor (principal); G92.8 Other toxic encephalopathy; B37.81 Candidal esophagitis; F33.2 Major depressive disorder, recurrent severe without psychotic features; F05 Delirium due to known physiological condition; N39.0 Urinary tract infection, site not specified; Z16.12 Extended spectrum beta lactamase (ESBL) resistance; R13.10 Dysphagia, unspecified; I10 Essential (primary) hypertension; R33.9 Retention of urine, unspecified; F41.1 Generalized anxiety disorder; B96.20 Unspecified Escherichia coli [E. coli] as the cause of diseases classified elsewhere; F22 Delusional disorders; K22.0 Achalasia of cardia; F90.9 Attention-deficit hyperactivity disorder, unspecified type; E87.6 Hypokalemia; R27.0 Ataxia, unspecified; Z23 Encounter for immunization; Z87.891 Personal history of nicotine dependence; Z79.51 Long term (current) use of inhaled steroids; Z79.899 Other long term (current) drug therapy
CPT/HCPCS: 36415; 70450; 70551; 71045; 74221; 74230; 76700; 80048; 80053; 80076; 80143; 80178; 80179; 81001; 82140; 82306; 82550; 82607; 82746; 82947; 83690; 83735; 84484; 85025; 85027; 85610; 86704; 86706; 86709; 86803; 87086; 87088; 87186; 87340; 92526; 92610; 92611; 93005; 93306; 95816; 97110; 97116; 97162; 97530; 99221; 99285; C1758; J0360; J0696; J1650; J2060; J2185; J2405; Q9957; S9485

== ENCOUNTER → 2023-08-27 20:46 | Outpatient (BNV) | payer MEDICARE, SELFPAY | PROVIDERS: Admitting Provider Student in an Organized Health Care Education/Training Program; Emergency Provider Emergency Medicine; PCP Internal Medicine; Visit Provider Student in an Organized Health Care Education/Training Program | DX: R41.0 Disorientation, unspecified (principal); F33.2 Major depressive disorder, recurrent severe without psychotic features | CPT/HCPCS: 99223; 99231; 99232; 99233; 99239 ==

== ENCOUNTER 2023-08-29 12:12 | Outpatient (BNV) | payer MEDICARE, SELFPAY | END 2023-09-04 11:13 | PROVIDERS: Admitting Provider Student in an Organized Health Care Education/Training Program; Emergency Provider Emergency Medicine; PCP Internal Medicine; Visit Provider Radiology Diagnostic Radiology | DX: R13.10 Dysphagia, unspecified (principal) | CPT/HCPCS: 74230 ==

== ENCOUNTER 2023-08-29 12:12 | Outpatient (BNV) | payer MEDICARE, SELFPAY | END 2023-09-03 13:56 | PROVIDERS: Admitting Provider Student in an Organized Health Care Education/Training Program; Emergency Provider Emergency Medicine; PCP Internal Medicine; Visit Provider Radiology Diagnostic Radiology | DX: R13.10 Dysphagia, unspecified (principal) | CPT/HCPCS: 74221 ==

== ENCOUNTER 2023-08-29 12:12 | Outpatient (BNV) | payer MEDICARE, SELFPAY | END 2023-09-05 09:35 | PROVIDERS: Admitting Provider Student in an Organized Health Care Education/Training Program; Emergency Provider Emergency Medicine; PCP Internal Medicine; Visit Provider Internal Medicine | DX: R07.9 Chest pain, unspecified (principal); R94.31 Abnormal electrocardiogram [ECG] [EKG] | CPT/HCPCS: 93306 ==

== ENCOUNTER → 2023-08-29 12:12 | Outpatient (BNV) | payer MEDICARE, SELFPAY | PROVIDERS: Admitting Provider Student in an Organized Health Care Education/Training Program; Emergency Provider Emergency Medicine; PCP Internal Medicine; Visit Provider Internal Medicine | DX: R13.10 Dysphagia, unspecified (principal) | CPT/HCPCS: 99222; 99232 ==

== ENCOUNTER → 2023-08-29 12:12 | Outpatient (BNV) | payer MEDICARE, SELFPAY | PROVIDERS: Admitting Provider Student in an Organized Health Care Education/Training Program; Emergency Provider Emergency Medicine; PCP Internal Medicine; Visit Provider Internal Medicine | DX: R94.31 Abnormal electrocardiogram [ECG] [EKG] (principal) | CPT/HCPCS: 99222 ==

== ENCOUNTER → 2023-08-29 12:12 | Outpatient (BNV) | payer MEDICARE, SELFPAY | PROVIDERS: Admitting Provider Student in an Organized Health Care Education/Training Program; Emergency Provider Emergency Medicine; PCP Internal Medicine; Visit Provider Psychiatry & Neurology Psychiatry | DX: F33.2 Major depressive disorder, recurrent severe without psychotic features (principal); F22 Delusional disorders; R13.10 Dysphagia, unspecified | CPT/HCPCS: 99222; 99231; 99232 ==

== ENCOUNTER → 2023-08-29 12:12 | Outpatient (BNV) | payer MEDICARE, SELFPAY | PROVIDERS: Admitting Provider Student in an Organized Health Care Education/Training Program; Emergency Provider Emergency Medicine; PCP Internal Medicine; Visit Provider Internal Medicine | DX: G25.79 Other drug induced movement disorders (principal) | CPT/HCPCS: 99221; 99499 ==

== ENCOUNTER → 2023-08-29 12:12 | Outpatient (BNV) | payer MEDICARE, SELFPAY | PROVIDERS: Admitting Provider Student in an Organized Health Care Education/Training Program; Emergency Provider Emergency Medicine; PCP Internal Medicine; Visit Provider Psychiatry & Neurology Psychiatry | DX: F60.9 Personality disorder, unspecified (principal); F06.1 Catatonic disorder due to known physiological condition | CPT/HCPCS: 99222; 99232 ==

== ENCOUNTER 2023-09-28 13:04 | Inpatient (IN) | payer MEDICARE, SELFPAY ==
--- NOTE | ~2023-09-28 | CT_ITS ---
EXAMINATION: CT HEAD WITHOUT CONTRAST CLINICAL INFORMATION: Fall COMPARISON: None available. TECHNIQUE: Contiguous axial imaging was performed from the skull base to vertex without intravenous administration of contrast. This CT examination was performed using dose optimization techniques as appropriate, variously including the following: *Automated exposure control *Adjustment of mA and/or kV according to patient size (this includes techniques or standardized protocols for targeted exams where dose is matched to indication/reason for exam; i.e. extremities or head) *Use of iterative reconstruction technique DLP: 577 mGy-cm FINDINGS: There is no acute intra-axial, extra-axial bleed, masses or midline shift. There is no acute infarction evolution. There is no edema. The valencia to white matter differentiation is maintained normal. The lateral ventricles are symmetrical in size and configuration without enlargement. Bone windows reveal no calvarial abnormality. Bilateral paranasal sinuses and mastoid air cells are well-aerated. Mild degenerative changes bilateral TM joints. CT/CT head/brain wo IV con IMPRESSION: No acute intracranial process seen.
--- NOTE | ~2023-09-28 | XR_ITS ---
EXAMINATION: Left foot and ankle x-ray CLINICAL INFORMATION: Swelling, pain and decreased range of motion COMPARISON: None. TECHNIQUE: 3 views of the left foot. 3 views of the left ankle. FINDINGS: Left foot: Bone alignment is normal. No fracture or dislocation. Joint spaces are normal. Soft tissues are normal. Left ankle: Bone alignment is normal. No fracture or dislocation. Normal ankle mortise. Normal soft tissues. XR/XR ankle LT 2V IMPRESSION: Unremarkable examination.
--- NOTE | ~2023-09-28 | XR_ITS ---
EXAMINATION: Left foot and ankle x-ray CLINICAL INFORMATION: Swelling, pain and decreased range of motion COMPARISON: None. TECHNIQUE: 3 views of the left foot. 3 views of the left ankle. FINDINGS: Left foot: Bone alignment is normal. No fracture or dislocation. Joint spaces are normal. Soft tissues are normal. Left ankle: Bone alignment is normal. No fracture or dislocation. Normal ankle mortise. Normal soft tissues. XR/XR foot LT 2V IMPRESSION: Unremarkable examination.
--- NOTE | ~2023-09-28 | CT_ITS ---
EXAMINATION: CT HEAD WITHOUT CONTRAST (STROKE PROTOCOL) CLINICAL INFORMATION: Stroke protocol. Unsteady gait. COMPARISON: 10/08/2023 TECHNIQUE: Contiguous axial imaging was performed from the skull base to vertex without intravenous administration of contrast. This CT examination was performed using dose optimization techniques as appropriate, variously including the following: *Automated exposure control *Adjustment of mA and/or kV according to patient size (this includes techniques or standardized protocols for targeted exams where dose is matched to indication/reason for exam; i.e. extremities or head) *Use of iterative reconstruction technique DLP: 557 mGy-cm FINDINGS: The lateral, third and fourth ventricles are normally outlined. The cortical sulci and basal cisterns are normally outlined as well. There is no acute territorial defect, hemorrhage or midline shift. The extra-axial spaces are unremarkable. Calvarium: Intact. Maxilla facial sinuses and mastoids: Clear as visualized. CT/CT head for stroke IMPRESSION: No acute intracranial pathology. This critical result was discussed with Dr. tyler Arce at 8:20 PM hours on 10/27/2023. It was ascertained that the content and urgency of the report was understood at the time of direct communication.
--- NOTE | ~2023-09-28 | US_ITS ---
EXAMINATION: US VENOUS ULTRASOUND WITH DOPPLER LOWER EXTREMITY, BILATERAL CLINICAL INFORMATION: Bilateral lower extremity edema. COMPARISON: None available. TECHNIQUE: Ultrasound of the deep veins is performed from the hip to the calf with compression sonography and color and pulse Doppler assessment. Spectral analysis with color-flow imaging is performed. FINDINGS: RIGHT: There is normal venous compression and respiratory variation and augmented flow. The visualized common femoral vein, superficial femoral vein, profunda femoral vein, popliteal vein, and the trifurcation region shows no evidence of deep venous thrombosis. There is no significant popliteal fossa cyst. LEFT: There is normal venous compression and respiratory variation and augmented flow. The visualized common femoral vein, superficial femoral vein, profunda femoral vein, popliteal vein, and the trifurcation region shows no evidence of deep venous thrombosis. There is no significant popliteal fossa cyst. If the patient's symptoms persist, followup ultrasound in 5 days 7 days might be of value to exclude proximal propagation from a non-visualized calf vein. US/US venous duplex LE BI IMPRESSION: No DVT demonstrated in the bilateral lower extremities.
--- OUTSIDE RECORDS SUMMARY | 2023-09-28 13:07 | XMS_ITS | Continuity of Care Document ---
Author Name Unknown Organization [facility] ter Address [address] [place] [address]- Care Team Providers Care Competitive Athlete Name Role Phone Not on Staff, PCP Primary Care Physician Unavail able Encounter [facility] Date(s): 04/02/23 - 05/02/[address] [address]- Attending Physician: Alaina Sequeira Admitting Physician: Alaina Sequeira Referring Physician: AdmtrAlaina Allergies, Adverse Reactions, Alerts No Known Allergies Medications acetaminophen 325 mg oral tablet 650 mg, By Mouth, Every 6 hours, May take OTC not to exceed 3000 mg/day, Refills 0, Maintenance, 04/28/23 7:27:00 EDT, Partial fill upon patient request if the prescription is for a schedule II opioid drug. Start Date: 04/28/23 Status: Ordered Amlodipine = 10 mg, By Mouth, Daily, 0 Refills, Maintenance, 04/24/23 7:45:00 EDT, Partial fill upon patient request if the prescription is for a schedule II opioid drug. Start Date: 04/24/23 Status: Ordered apixaban 2.5 mg oral tablet 1 tablet = 2.5 mg, By Mouth, 2 times a day, # 60 tablet, 0 Refills, Maintenance, 04/28/23 7:26:00 EDT, Tablet, [facility], Partial fill upon patient request if the prescription is for aschedule II opioid drug., 155, cm, 04/28/23 7:11:00... Start Date: 04/28/23 Stop Date: 05/28/23 Status: Ordered Colace Capsule 100 mg, 1, capsule, By Mouth, 2 times a day, PRN, Refills 0, Maintenance, as needed for constipation, 04/28/23 7:27:00 EDT, Partial fill upon patient request if the prescription is for a schedule II opioid drug. Start Date: 04/28/23 Status: Ordered fluticasone 50 mcg/inh nasal spray 1 sprays, Nares, Both, 2 times a day, 0 Refills, Maintenance, 04/24/23 7:45:00 EDT, [place], Partial fill upon patient request if the prescription is for a schedule II opioid drug. Start Date: 04/24/23 Status: Ordered lithium carbonate = 300 mg, By Mouth, Daily at bedtime, 0 Refills, Maintenance, 04/24/23 7:46:00 EDT, Partial fill upon patient request if the prescription is for a schedule II opioid drug. Start Date: 04/24/23 Status: Ordered LORazepam 1 mg oral tablet 1 tablet = 1 mg, By Mouth, 2 times a day, PRN as needed for anxiety, 0 Refills, Maintenance, 04/24/23 7:46:00 EDT, Tablet, Partial fill upon patient request if the prescription is for a schedule II opioid drug. Start Date: 04/24/23 Status: Ordered Maalox Plus Liquid 30 mL, By Mouth, Every 4 hours, PRN Other, Heartburn, 0 Refills, Maintenance, 04/28/23 7:27:00 EDT,[place]usp[place], Partial fill upon patient request if the prescription is for a schedule II opioid drug. Start Date: 04/28/23 Status: Ordered Nortriptyline = 30 mg, By Mouth, Daily at bedtime, 0 Refills, Maintenance, 04/24/23 7:47:00 EDT, Partial fill upon patient request if the prescription is for a schedule II opioid drug. Start Date: 04/24/23 Status: Ordered oxyCODONE 5 mg oral tablet See Instructions, PRN, Take 1-2 tablets every 4 hours as needed for moderate to severe pain., # 84 tablet, Refills 0, Tot. Refills 0, Acute 05/05/23 8:00:00 EDT, Pain , Mild, 04/28/23 7:25:00 EDT, Instructions Replace Required Details, Route to Pharma... Start Date: 04/28/23 Stop Date: 05/05/23 Status: Ordered pantoprazole 40 mg oral delayed release tablet = 40 mg, By Mouth, Daily, 0 Refills, Maintenance, 04/28/23 7:27:00 EDT, EC Tablet Start Date: 04/28/23 Status: Ordered propranolol 20 mg oral tablet 20 mg, 1, tablet, By Mouth, 2 times a day, # 60 tablet, Refills 5, Maintenance, 04/24/23 7:47:00 EDT, Partial fill upon patient request if the prescription is for a schedule II opioid drug. Start Date: 04/24/23 Status: Ordered PROzac 40 mg oral capsule 1 capsule = 40 mg, By Mouth, Daily, 0 Refills, Maintenance, 04/24/23 7:47:00 EDT, Partial fill uponpatient request if the prescription is for a schedule II opioid drug. Start Date: 04/24/23 Status: Ordered Rexulti 0.5 mg oral tablet 1 tablet = 0.5 mg, By Mouth, Daily, # 30 tablet, 0 Refills, Maintenance, 04/27/23 14:34:00 EDT, Tablet, Partial fill upon patient request if the prescription is for a schedule II opioid drug. Start Date: 04/27/23 Status: Ordered tiZANidine 2 mg oral tablet 2 mg, 1, tablet, By Mouth, 3 times a day, # 21 tablet, Refills 0, Tot. Refills 0, Maintenance, 04/28/23 7:25:00 EDT, Route to Pharmacy Electronically, [facility], Partial fill upon patient request if the prescription is for a schedule II... Start Date: 04/28/23 Stop Date: 05/05/23 Status: Ordered Patient Care team information Care Team Personnel Name: Manjit Horne RN Position: S RN Member Role: Primary Care Nurse Name: Deanne Agrawal RN Position: S RN Member Role: Primary Care Nurse Name: Not on Staff, PCP Position: S Physician (General Medicine) Member Role: PCP Name: Yamilex Bashir RN Position: S RN Member Role: Primary Care Nurse Care Team Related Persons Name: JAMIE DENNISON Address: home [address] [place] [address] Name: NICOLE STALEY Address: home [address] [place] [id number]
--- OUTSIDE RECORDS SUMMARY | 2023-09-28 13:07 | XMS_ITS | Continuity of Care Document ---
Author Name Unknown Organization [facility] ter Address [address] [place] [id number]- Care Team Providers Care Heat Curer Name Role Phone Tami Francis MD Primary Care Physician Encounter [facility] [id number] Date(s): 05/05/23 - 05/06/[address] [address]- Discharge Disposition: A-D/C Home Attending Physician: Juan Miguel Khan DO Admitting Physician: Juan Miguel Khan DO Referring Physician: Not on Staff, Referring MD Allergies, Adverse Reactions, Alerts No Known [...] opioid drug. Start Date: 04/24/23 Status: Ordered amLODIPine 10 mg oral tablet 10 mg, Tablet, By Mouth, 05/06/23 9:00:00 EDT Start Date: 05/06/23 Stop Date: 05/06/23 Status: Completed apixaban 2.5 mg oral tablet 1 tablet = 2.5 mg, By Mouth, 2 times a day, # 60 tablet, 0 Refills, Maintenance, 04/28/23 7:26:00 EDT, Tablet, [facility], Partial fill upon patient request [...] opioid drug. Start Date: 04/28/23 Status: Ordered docusate sodium 100 mg oral capsule TAKE 1 CAPSULE BY MOUTH TWICE A DAY . MEDICATION TO BE STARTED AFTER SURGERY DIRECTED Start Date: 05/06/23 Status: Ordered Eliquis 2.5 mg oral tablet 1 tablet = 2.5 mg, By Mouth, 2 times a day, # 60 tablet, 0 Refills, Maintenance, 05/06/23 0:55:00 EDT, Tablet, Partial fill upon patient request if the prescription is for a schedule II opioid drug. Start Date: 05/06/23 Status: Ordered FLUoxetine 40 mg oral capsule 1 capsule = 40 mg, By Mouth, Daily, # 30 capsule, 0 Refills, Maintenance, 05/06/23 0:56:00 EDT, Capsule, Partial fill upon patient request if the prescription is for a schedule II opioid drug. Start Date: 05/06/23 Status: Ordered fluticasone 50 mcg/inh nasal spray 1 sprays, Nares, Both, 2 times a day, 0 Refills, Maintenance, 04/24/23 7:45:00 EDT, [place], Partial fill upon patient request if the prescription is for a schedule II opioid drug. Start Date: 04/24/23 Status: Ordered lithium 300 mg oral tablet 1 tablet = 300 mg, By Mouth, 3 times a day, # 270 tablet, 0 Refills, Maintenance, 05/06/23 0:56:00 EDT, Tablet, Partial fill upon patient request if the prescription is for a schedule II opioid drug. Start Date: 05/06/23 Status: Ordered lithium carbonate = 300 mg, By Mouth, Daily at bedtime, 0 Refills, Maintenance, 04/24/23 7:46:00 EDT, Partial fill upon patient request if the prescription is for a schedule II opioid drug. Start Date: 04/24/23 Status: Ordered LORazepam 0.5 mg oral tablet TAKE 1 TABLET BY MOUTH 3-4 TIMES A DAY NEEDED FOR ANXIETY Start Date: 05/06/23 Status: Ordered LORazepam 1 mg oral tablet [...] opioid drug. Start Date: 04/28/23 Status: Ordered mupirocin 2% topical ointment APPLY TWICE DAILY TOP AFFECTED AREA FOR ONE WEEK Start Date: 05/06/23 Status: Ordered Nortriptyline = 30 mg, By Mouth, Daily at bedtime, 0 Refills, Maintenance, 04/24/23 7:47:00 EDT, Partial fill upon patient request if the prescription is for a schedule II opioid drug. Start Date: 04/24/23 Status: Ordered nortriptyline 10 mg oral capsule 10 mg, 1, capsule, By Mouth, 3 times a day, # 270 capsule, Refills 0, Maintenance, 05/06/23 0:56:00EDT, Partial fill upon patient request if the prescription is for a schedule II opioid drug. Start Date: 05/06/23 Status: Ordered oxyCODONE 5 mg oral tablet TAKE 1 TO 2 TABLETS BY MOUTH EVERY 4 HOURS NEEDED FOR MODERATE TO SEVERE PAIN Start Date: 05/06/23 Status: Ordered pantoprazole 40 mg oral delayed release tablet = 40 mg, By Mouth, Daily, 0 Refills, Maintenance, 04/28/23 7:27:00 EDT, EC Tablet Start Date: 04/28/23 Status: Ordered pantoprazole 40 mg oral delayed release tablet 1 tablet = 40 mg, By Mouth, 2 times a day, # 60 tablet, 0 Refills, Maintenance, 05/06/23 0:56:00 EDT, CR Tablet Start Date: 05/06/23 Status: Ordered propranolol 20 mg oral tablet 20 mg, 1, tablet, By Mouth, 2 times a day, # 60 tablet, Refills 5, Maintenance, 04/24/23 7:47:00 EDT, Partial fill upon patient request if the prescription is for a schedule II opioid drug. Start Date: 04/24/23 Status: Ordered propranolol 20 mg oral tablet TAKE 1 TABLET BY MOUTH TWICE A DAY Start Date: 05/06/23 Status: Ordered propranolol 20 mg oral tablet 20 mg, Tablet, By Mouth, 05/06/23 9:00:00 EDT Start Date: 05/06/23 Stop Date: 05/06/23 Status: Completed PROzac 40 mg oral capsule 1 capsule = 40 mg, By Mouth, Daily, 0 Refills, Maintenance, 04/24/23 7:47:00 EDT, Partial fill uponpatient request if the prescription is for a schedule II opioid drug. Start Date: 04/24/23 Status: Ordered Rexulti 0.5 mg oral tablet TAKE 1 TABLET BY MOUTH EVERY DAY Start Date: 05/06/23 Status: Ordered Rexulti 0.5 mg oral tablet [...] 04/28/23 7:25:00 EDT, Route to Pharmacy Electronically, [facility], Partial fill upon patient request if the prescription is for a schedule II... Start Date: 04/28/23 Stop Date: 05/05/23 Status: Ordered tiZANidine 2 mg oral tablet 2 mg, 1, tablet, By Mouth, Every 8 hours, PRN, # 90 tablet, Refills 0, Maintenance, as needed for muscle spasm, 05/06/23 0:55:00 EDT, Partial fill upon patient request if the prescription is for a schedule II opioid drug. Start Date: 05/06/23 Status: Ordered traMADol 50 mg oral tablet TAKE 1 TAB BY MOUTH EVERY 4 - 6 HOURS NEEDED FOR PAIN DO NOT DRIVE WHILE TAKING THIS MEDICATION Start Date: 05/06/23 Status: Ordered Yuvafem 10 mcg vaginal tablet INSERT 1 TABLET VAGINALLY TWICE A WEEK X90 DAYS Start Date: 05/06/23 Status: Ordered Results Radiology Reports * Exam Date Time Procedure Performing Provider Status 05/05/23 4:[address] Head/Brain W/O Contrast Christina Joaquin (Verified) Notes: (CT Head/Brain W/O Contrast) Reason For Exam: Neuro deficit, acute, stroke suspected;Other: RESULT: CT Head/Brain W/O Contrast CT Head/Brain W/O Contrast Reason: Neuro deficit, acute, stroke suspected; TECHNIQUE: Incremental CT without contrast through the head was formatted in axial and coronal plane. Weight-based protocol using automatic tube modulation was performed to optimize scan parameters. CTDIvol Head: 47.40 mGy, DLP Head: 773 mGy*cm. COMPARISON: None on record at the time of interpretation. FINDINGS: BRAIN and EXTRA-AXIAL SPACES: No parenchymal hemorrhage, midline shift or mass effect. Patricia-white matter differentiation is well preserved. No acute infarct. Ventricles, sulci and basilar cisterns are age appropriate. Moderate low-density white matter changes. No subarachnoid hemorrhage, subdural or epidural collections. CALVARIUM, SKULL BASE AND SOFT TISSUES: No fractures or suspicious bony lesions. The paranasal sinuses and mastoid air cells are clear. Visualized orbits and globes are intact. The extracranial soft tissues are unremarkable. IMPRESSION: No acute process. WSN: [id number] Ordering Physician: Avelina Barahona Dictated By: Volodymyr Mann MD Dictated Date/Time: 05/05/23 4:19 pm Reviewed By: Volodymyr Mann MD Signed By: Volodymyr Mann MD Signed Date/Time: 05/05/23 4:19 pm Transcribed By: RUBY Transcribed Date/Time: 05/05/23 4:16 pm * Exam Date Time Procedure Performing Provider Status 05/05/23 4:[address] Angio Neck Christina Joaquin [facility] (Verified) Notes: (CT Angio Neck) Reason For Exam: Aneurysm, neck vessel(s);Other: RESULT: CT Angio Neck CT Angio Head, CT Angio Neck Reason: Other:; Neuro deficit, acute, stroke suspected; Clinical Question(s): Other:; Hematoma Aneurysm; Order Comment: / Other: Per EMR, right-sided weakness, recent right knee arthroplasty. TECHNIQUE: CT angiogram of the head and neck was performed after bolus administration of intravenous contrast. Coronal and sagittal MIP reformatted images were obtained. Additional 3-D images were created on a separate workstation under concurrent supervision by the attending radiologist. All stenoses are measured using NASCET criteria. Weight-based protocol using automatic tube modulation was used to optimize exposure parameters. RADIATION DOSE PARAMETERS: CTDIvol Body: 6.77 mGy, DLP Body: 267 mGy*cm. COMPARISON: Noncontrast CT head performed concurrently. FINDINGS: CTA OF THE NECK: Arch: There is a three vessel aortic arch. There is mild atherosclerotic plaque of the aortic arch,but origins of the supra aortic vessels are patent. Right carotid system: The common carotid and cervical internal carotid arteries are patent. There is calcified atherosclerotic plaque at the carotid bifurcation, but no ICA stenosis (0%) by NASCET criteria. Left carotid system: The common carotid and cervical internal carotid arteries are patent. There isnoncalcified atherosclerotic plaque at the carotid bifurcation and there is a possible web at the carotid bifurcation, but no ICA stenosis (0%) by NASCET criteria. There is a co-dominant vertebral artery system. Right vertebral: No significant stenosis. No evidence of dissection or aneurysm. Left vertebral: No significant stenosis. No evidence of dissection or aneurysm. Other: Soft tissues and bones: No evidence of lymphadenopathy or mass. Multinodular goiter, with one of the largest nodules measuring up to approximately 1.5 cm. The lungs are blurred by motion, with centrilobular emphysema noted. Multilevel degenerative changes of the spine are noted, without acute osseous abnormality. CTA OF THE HEAD: Anterior circulation: Bilateral intracranial ICAs demonstrate atherosclerotic calcification, without stenosis. Bilateral TALIB and MCA branches are patent. There is no significant stenosis, proximal cutoff, aneurysm, or vascular malformation. Posterior circulation: Bilateral intracranial vertebral arteries, the basilar artery, and bilateralsuperior cerebellar and posterior cerebral branches are patent. There is no significant stenosis, proximal cutoff, aneurysm, or vascular malformation. Veins: Major dural venous sinuses are patent. Other: Soft tissues and bones: No midline shift or effacement of the basal cisterns. No space-occupying hemorrhage. No territorial loss of patricia-white matter differentiation. Orbits are unremarkable. No significant opacification in the paranasal sinuses or mastoid air cells. IMPRESSION: No proximal occlusion or high grade stenosis in the major arteries of the head and neck. There is noncalcified plaque at the left carotid bifurcation with either plaque protruding into the lumen or possibly a web at the carotid bifurcation. Multinodular goiter, although the largest nodules measuring up to 1.5 cm. If this has not been previously assessed, given size of the nodules, follow-up nonemergent thyroid ultrasound could be considered. WSN: [id number] Ordering Physician: Avelina Barahona Dictated By: Janiya Hoskins MD Dictated Date/Time: 05/05/23 5:01 pm Reviewed By: Janiya Hoskins MD Signed By: Janiya Hoskins MD Signed Date/Time: 05/05/23 5:01 pm Transcribed By: RUBY Transcribed Date/Time: 05/05/23 4:23 pm * Exam Date Time Procedure Performing Provider Status 05/05/23 4:[address] Angio Head Christina Joaquin [facility] (Verified) Notes: (CT Angio Head) Reason For Exam: Neuro deficit, acute, stroke suspected;Other: RESULT: CT Angio Head CT Angio Head, CT Angio Neck Reason: Other:; Neuro deficit, acute, stroke suspected; Clinical Question(s): Other:; Hematoma Aneurysm; Order Comment: / Other: Per EMR, right-sided weakness, recent right knee arthroplasty. TECHNIQUE: CT angiogram of the head and neck was performed after bolus administration of intravenous contrast. Coronal and sagittal MIP reformatted images were obtained. Additional 3-D images were created on a separate workstation under concurrent supervision by the attending radiologist. All stenoses are measured using NASCET criteria. Weight-based protocol using automatic tube modulation was used to optimize exposure parameters. RADIATION DOSE PARAMETERS: CTDIvol Body: 6.77 mGy, DLP Body: 267 mGy*cm. COMPARISON: Noncontrast CT head performed concurrently. FINDINGS: CTA OF THE NECK: Arch: There is a three vessel aortic arch. There is mild atherosclerotic plaque of the aortic arch,but origins of the supra aortic vessels are patent. Right carotid system: The common carotid and cervical internal carotid arteries are patent. There is calcified atherosclerotic plaque at the carotid bifurcation, but no ICA stenosis (0%) by NASCET criteria. Left carotid system: The common carotid and cervical internal carotid arteries are patent. There isnoncalcified atherosclerotic plaque at the carotid bifurcation and there is a possible web at the carotid bifurcation, but no ICA stenosis (0%) by NASCET criteria. There is a co-dominant vertebral artery system. Right vertebral: No significant stenosis. No evidence of dissection or aneurysm. Left vertebral: No significant stenosis. No evidence of dissection or aneurysm. Other: Soft tissues and bones: No evidence of lymphadenopathy or mass. Multinodular goiter, with one of the largest nodules measuring up to approximately 1.5 cm. The lungs are blurred by motion, with centrilobular emphysema noted. Multilevel degenerative changes of the spine are noted, without acute osseous abnormality. CTA OF THE HEAD: Anterior circulation: Bilateral intracranial ICAs demonstrate atherosclerotic calcification, without stenosis. Bilateral TALIB and MCA branches are patent. There is no significant stenosis, proximal cutoff, aneurysm, or vascular malformation. Posterior circulation: Bilateral intracranial vertebral arteries, the basilar artery, and bilateralsuperior cerebellar and posterior cerebral branches are patent. There is no significant stenosis, proximal cutoff, aneurysm, or vascular malformation. Veins: Major dural venous sinuses are patent. Other: Soft tissues and bones: No midline shift or effacement of the basal cisterns. No space-occupying hemorrhage. No territorial loss of patricia-white matter differentiation. Orbits are unremarkable. No significant opacification in the paranasal sinuses or mastoid air cells. IMPRESSION: No proximal occlusion or high grade stenosis in the major arteries of the head and neck. There is noncalcified plaque at the left carotid bifurcation with either plaque protruding into the lumen or possibly a web at the carotid bifurcation. Multinodular goiter, although the largest nodules measuring up to 1.5 cm. If this has not been previously assessed, given size of the nodules, follow-up nonemergent thyroid ultrasound could be considered. WSN: [id number] Ordering Physician: Avelina Barahona Dictated By: Janiya Hoskins MD Dictated Date/Time: 05/05/23 5:01 pm Reviewed By: Janiya Hoskins MD Signed By: Janiya Hoskins MD Signed Date/Time: 05/05/23 5:01 pm Transcribed By: RUBY Transcribed Date/Time: 05/05/23 4:23 pm Vital Signs Most recent to oldest [Reference Range]: 1 2 3 Height 155 cm (05/06/23 8:40 AM) 155 cm (05/06/23 6:24 AM) 155 cm (6/21/23 4:02 AM) Weight 52.5 kg (05/06/23 8:40 AM) 52.5 kg (05/06/23 6:24 AM) 52.5 kg (05/06/23 4:02 AM) Oxygen Saturation [94-100 %] 96 % (05/06/23 10:14 AM) 100 % (05/06/23 8:40 AM) 96 % (05/06/23 6:24 AM) Pulse Rate [55-90 bpm] 94 bpm *H* (05/06/23 10:14 AM) 92 bpm *H* (05/06/23 8:40 AM) 76 bpm (05/06/23 6:24 AM) Body Mass Index [18.5-24.99 kg/m2] 21.85 kg/m2 (05/06/23 8:40 AM) 21.85 kg/m2 (05/06/23 6:24 AM) 21.85 kg/m2 (05/06/23 4:02 AM) Blood Pressure [90-138/55-84 mm Hg] 155/108mm Hg *H* (05/06/23 10:14 AM) 155/108mm Hg *H* (05/06/23 10:14 AM) 182/89mm Hg *H* (05/06/23 8:40 AM) Respiratory Rate [16-30 br/min] 18 br/min (05/06/23 10:14 AM) 23 br/min (05/06/23 6:24 AM) 18 br/min (05/06/23 4:02 AM) Temperature [96.8-100.4 DegF] 97.5 DegF (05/06/23 4:02 AM) 97.5 DegF (05/05/23 11:22 PM) 97.3 DegF (05/05/23 11:20 PM) Liters per Minute 2 L/min (05/05/23 11:20 PM) Mode of Delivery (Oxygen) Room air (05/06/23 10:14 AM) Room air (05/06/23 8:40 AM) Room air (05/06/23 6:24 AM) Blood pressure sites Arm, left (05/06/23 10:14 AM) Arm, right (05/06/23 8:40 AM) Arm, left (05/06/23 6:24 AM) Temperature Route Oral (05/06/23 8:40 AM) Oral (05/06/23 4:02 AM) Oral (05/05/23 11:22 PM) Dry Weight 52.5 kg (05/06/23 8:40 AM) 52.5 kg (05/06/23 6:24 AM) 52.5 kg (05/06/23 4:02 AM) Weight Obtained Via Patient/family state d (05/05/23 12:05 PM) Patient Care team information Care Team Personnel Name: Manjit Horne RN Position: [facility] RN Member Role: Primary Care Nurse Name: Tami Francis MD Position: [facility] Outreach Member Role: PCP Address: Address: [address] [place] [address] [place] [id number]- Name: Deanne Agrawal RN Position: [facility] RN Member Role: Primary Care Nurse Name: Yamilex Bashir RN Position: [facility] RN Member Role: Primary Care Nurse [facility] Attending Position: [facility] ED Attendings Patient Name: Juan Miguel Khan DO Position: [facility] Resident Member Role: Admitting Physician Address: Address: [address] [place] [address] [place] [address]- Name: Deya Yi Position: [facility] ED TA [facility] Member Role: Patient Care Provider Name: Lawrence Whitehead RN Position: [facility] ED RN W/OE and Tasks Member Role: Patient Care Provider Name: Nancy Roberts RN Position: [facility] ED RN W/OE and Tasks Member Role: Patient Care Provider Care Team Related Persons Name: JAMIE DENNISON Address: home [address] [place] [address] Name: NICOLE STALEY Address: [address] [place] [address]
--- OUTSIDE RECORDS SUMMARY | 2023-09-28 13:07 | XMS_ITS | Continuity of Care Document ---
Author Name Unknown Organization [facility] Address [address] [place] [id number]- Care Team Providers Care Technical Sme Name Role Phone Tray FONSECA, Janiya White Primary Care Physician Unavaila ble Encounter [facility] Date(s): 02/03/23 - 03/05/[address] [address] Attending Physician: Admtr, Ar8 Admitting Physician: Admtr, Ar8 Referring Physician: Admtr, Ar8 Allergies, Adverse Reactions, Alerts No Known Allergies Patient Care team information Care Team Related Persons Name: JAMIE DENNISON Address: [address] [place] [address] Name: NICOLE STALEY Address: home [address] [place] [address]
--- OUTSIDE RECORDS SUMMARY | 2023-09-28 13:07 | XMS_ITS | Continuity of Care Document ---
Author Name Unknown Organization [facility] Address [address] [place] [address]- Care Team Providers Care Die Holder Name Role Phone Tami Francis MD Primary Care Physician Encounter [facility] Date(s): 08/21/23 - 08/21/[address] [address]- Encounter Diagnosis Throat pain(Final) - 08/21/23 Discharge Disposition: A-D/C Home Attending Physician: Nazario Laurent MD Admitting Physician: Nazario Laurent MD Referring Physician: Not on Staff, Referring MD [...] 0 Refills, Maintenance, 04/28/23 7:26:00 EDT, Tablet, [facility], Partial fill upon patient request [...] day, 0 Refills, Maintenance, 04/24/23 7:45:00 EDT, [place], Partial fill upon patient request if the [...] A DAY Start Date: 05/06/23 Status: Ordered PROzac 40 mg oral capsule 2 capsule = 80 mg, By Mouth, Daily, 0 Refills, Maintenance, [...] 04/28/23 7:25:00 EDT, Route to Pharmacy Electronically, [facility], Partial fill upon patient request [...] DAYS Start Date: 05/06/23 Status: Ordered Results Orders for Microbiology Reports Name Date Group A Strep Screen and Culture 08/21/23 Microbiology Reports TEST:Group A Strep Screen and Culture STATUS:Unauthenticated BODY SITE: SOURCE:THROAT COLLECTED DATE/TIME:08/21/23 10:57 AM Group A Strep Screen and Culture SPECIMEN DESCRIPTION : THROAT SWAB SPECIAL REQUESTS : NONE DIRECT EXAM : RAPID GROUP A RESULT IS NEGATIVE, REFER TO CULTURE RESULT. REPORT STATUS : PRELIMINARY REPORT Vital Signs Most recent to oldest [Reference Range]: 1 2 3 Height 155 cm (08/21/23 12:24 PM) 155 cm (08/21/23 10:51 AM) Weight 50.1 kg (08/21/23 12:24 PM) 50.1 kg (08/21/23 10:51 AM) Oxygen Saturation [94-100 %] 97 % (08/21/23 12:24 PM) 94 % (08/21/23 10:51 AM) 96 % (08/21/23 10:49 AM) Pulse Rate [55-90 bpm] 84 bpm (08/21/23 12:24 PM) 90 bpm (08/21/23 10:51 AM) 105 bpm *H* (08/21/23 10:49 AM) Body Mass Index [18.5-24.99 kg/m2] 20.85 kg/m2 (08/21/23 12:24 PM) Blood Pressure [90-138/55-84 mm Hg] 111/71mm Hg (08/21/23 12:24 PM) 129/92mm Hg (08/21/23 10:51 AM) Respiratory Rate [16-30 br/min] 18 br/min (08/21/23 12:24 PM) 18 br/min (08/21/23 10:51 AM) Temperature [96.8-100.4 DegF] 98.4 DegF (08/21/23 12:24 PM) 98.7 DegF (08/21/23 10:51 AM) Mode of Delivery (Oxygen) Room air (08/21/23 12:24 PM) Room air (08/21/23 10:51 AM) Blood pressure sites Arm, left (08/21/23 12:24 PM) Temperature Route Oral (08/21/23 12:24 PM) Temporal (08/21/23 10:51 AM) Dry Weight 50.1 kg (08/21/23 12:24 PM) 50.1 kg (08/21/23 10:51 AM) Note * Mehran FONSECANazario: PERFORM Event Display: Patient Education Leaflets Authored Date: [id number] When You Have a Sore Throat ?? [address] When You Have a Sore Throat A sore throat can be painful. There are many reasons why you may have a sore throat. Your healthcare provider will work with you to find the cause of your sore throat. They'll also find the best treatment for you. What causes a sore throat? Sore throats can be caused or made worse by: ??? Cold or flu viruses ??? Bacteria ??? Irritants such as tobacco smoke or air pollution ??? Acid reflux ?? A healthy throat The tonsils are on the sides of the throat near the base of the tongue. They are part of the immunesystem and collect viruses and bacteria and help fight infection. The throat (pharynx) is the passage for air. Mucus from the nasal cavity also moves down the passage. ?? An inflamed throat The tonsils and pharynx can become inflamed due to a cold or flu virus. Postnasal drip (excess mucus draining from the nasal cavity) can irritate the throat. It can also make the throat or tonsils more likely to be infected by bacteria. Severe, untreated tonsillitis in children or adults can cause a pocket of pus (abscess) to form near the tonsil. ?? Your evaluation A health evaluation can help find the cause of your sore throat. It can also help your healthcare provider??choose the best treatment for you. The evaluation may include a health history, physical exam, and diagnostic tests. Health history Your healthcare provider may ask you: ??? How long has the sore throat lasted and how have you been treating it? Do you have any other symptoms, such as body aches, fever, or cough? Does your sore throat keep coming back (recur)?If so, how often? How many days of school or work have you missed because of a sore throat? Do you have trouble eating or swallowing? Have you been told that you snore or have other sleep problems? Do you have bad breath? Do you cough up bad-tasting mucus? Physical exam During the exam, your healthcare provider checks your ears, nose, and throat for problems. They also check for swelling in the neck, and may listen to your chest. Possible tests Other tests you may have include: ??? A throat swab to check for bacteria such as??streptococcus (the bacteria that causes strep throat) ??? A blood test to check for certain infections. These may include mononucleosis (a viral infection). ??? A chest X-ray to rule out pneumonia, especially if you have a cough ?? Treating a sore throat Treatment depends on many factors. What's the likely cause? Is the problem recent? Does it keep coming back? In many cases, the best thing to do is to treat the symptoms, rest, and let the problem heal itself. Antibiotics may help clear up some bacterial infections. For cases of severe or recurringtonsillitis, the tonsils may need to be removed. ?? Easing your symptoms ??? Don???t smoke, and stay away from secondhand smoke. ??? For children, try throat sprays or frozen ice pops. Adults and older children may try lozenges. ??? Drink warm liquidsto soothe the throat and help thin mucus. Stay away from alcohol, spicy foods, and acidic drinks such as orange juice. These can irritate the throat. ??? Gargle with warm saltwater ( 1??teaspoon of salt to?? 8??ounces of warm water). ??? Use a humidifier to keep air moist and ease throat dryness. ??? Try [id number] pain relievers such as acetaminophen or ibuprofen. Use as directed, and don???t take more than the advised dose. Don???t give aspirin to a child younger than age 19 unless direc reanna by the child???s provider. Taking aspirin can put your child at risk for Iam syndrome. This mila rare but very serious disorder. It most often affects the brain and the liver. ?? Are antibiotics needed? If your sore throat is due to a bacterial infection, antibiotics may speed healing and prevent complications. Strep throat (group A streptococcus) is the major treatable infection for a sore throat. But strep throat causes only 5% to 15% of sore throats in adults who get medical care. Most sore throats are caused by cold or flu viruses. And antibiotics don???t treat viral illness. In fact, using antibiotics when they???re not needed may lead to bacteria that are harder to kill. Your healthcare provider will prescribe antibiotics only if they think they're likely to help. ?? If antibiotics are prescribed Take the medicine exactly as directed. Be sure to finish your prescription even if you???re feelingbetter. Ask your healthcare provider or pharmacist what side effects are common and what to do about them. ?? Is surgery needed? In some cases, tonsils need to be removed. This is often done as same-day (outpatient) surgery. Your healthcare provider may advise removing the tonsils in cases of: ??? Several severe bouts of tonsillitis in a year. Severe episodes include those that lead to missed days of school or work, or that need to be treated with antibiotics. ??? Tonsillitis that causes breathing problems during sleep ???Tonsillitis caused by food particles collecting in pouches in the tonsils (cryptic tonsillitis) ?? When to call your healthcare provider Call your healthcare provider right away if any of these occur: ??? Problems swallowing ??? Symptoms get worse, or you have new symptoms ??? Swollen tonsils make it hard to breathe ??? The pain is severe enough to keep you from drinking liquids ??? You have a skin rash or hives, which could be an allergic reaction to antibiotics ??? Symptoms don???t get better within a week ??? Symptoms don???t get better within?? 2 to 3 ??days of starting antibiotics ?? Call 911 Call 911 right away if any of these occur: ??? Trouble breathing or problems catching your breath ??? Skin is blue, purple, or valencia in color ??? Trouble talking ??? Feeling dizzy or faint ??? Feelingof doom ?? Last Reviewed Date: 2021 ?? [employer]. All rights reserved. This information is not intended as a substitute for professional medical care. Always follow your healthcare professional's instructions. ?? Patient Care team information Care Team Personnel Name: Manjit Horne RN Position: S RN Member Role: Primary Care Nurse Name: Tami Francis MD Position: S Outreach Member Role: PCP Address: Address: [address] [place] [address] Name: Deanne Agrawal RN Position: [facility] RN Member Role: Primary Care Nurse Name: Yamilex Bashir RN Position: [facility] RN Member Role: Primary Care Nurse Name: Nazario Laurent MD Position: [facility] Resident Member Role: Admitting Physician Address: Address: [address] [place] [id number]- Name: Jessica Aguilera RN Position: [facility] ED RN W/OE and Tasks Member Role: Patient Care Provider Name: Lavern Wallace Position: [facility] ED TA [facility] Member Role: Analyst [employer] Care Team Related Persons Name: JAMIE DENNISON Address: home [address] [place] [address] Name: NICOLE STALEY Address: home [address] [place] [address]
--- OUTSIDE RECORDS SUMMARY | 2023-09-28 13:08 | XMS_ITS | Continuity of Care Document ---
Author Name Unknown Organization [facility] ter Address [address] [place] [address]- Care Team Providers Care Finance Specialist Name Role Phone Not on Staff, PCP Primary Care Physician Unavail able Encounter [facility] Date(s): 05/04/23 - 05/04/[address] [address]- Discharge Disposition: A-D/C Walkout Attending Physician: Not on Staff, Attending MD Admitting Physician: Not on Staff, Admitting MD Referring Physician: Not on Staff, Referring [...] 0 Refills, Maintenance, 04/28/23 7:26:00 EDT, Tablet, [facility], Partial fill upon patient [...] day, 0 Refills, Maintenance, 04/24/23 7:45:00 EDT, [place], Partial fill upon patient request if the [...] 04/28/23 7:25:00 EDT, Route to Pharmacy Electronically, [facility], Partial fill upon patient request if the prescription is for a schedule II... Start Date: 04/28/23 Stop Date: 05/05/23 Status: Ordered Vital Signs Most recent to oldest [Reference Range]: 1 2 3 Weight 52.7 kg (05/04/23 2:48 PM) 52.7 kg (05/04/23 1:49 PM) Oxygen Saturation [94-100 %] 93 % *L* (05/04/23 5:31 PM) 95 % (05/04/23 3:58 PM) 94 % (05/04/23 1:49 PM) Pulse Rate [55-90 bpm] 95 bpm *H* (05/04/23 5:31 PM) 93 bpm *H* (05/04/23 3:58 PM) 95 bpm *H* (05/04/23 1:49 PM) Blood Pressure [90-138/55-84 mm Hg] 132/65mm Hg (05/04/23 5:31 PM) 138/82mm Hg (05/04/23 3:58 PM) 133/62mm Hg (05/04/23 1:49 PM) Respiratory Rate [16-30 br/min] 18 br/min (05/04/23 5:31 PM) 18 br/min (05/04/23 3:58 PM) 16 br/min (05/04/23 1:49 PM) Temperature [96.8-100.4 DegF] 97.7 DegF (05/04/23 5:31 PM) 97.7 DegF (05/04/23 3:58 PM) 97.7 DegF (05/04/23 1:49 PM) Mode of Delivery (Oxygen) Room air (05/04/23 5:31 PM) Room air (05/04/23 3:58 PM) Room air (05/04/23 1:49 PM) Blood pressure sites Arm, left (05/04/23 5:31 PM) Arm, left (05/04/23 3:58 PM) Arm, right (05/04/23 1:49 PM) Temperature Route Oral (05/04/23 5:31 PM) Oral (05/04/23 3:58 PM) Oral (05/04/23 1:49 PM) Weight Obtained Via Patient/family state d (05/04/23 1:49 PM) Patient Care team information Care Team Personnel Name: Manjit Horne RN Position: S RN Member Role: Primary Care Nurse Name: Deanne Agrawal RN Position: S RN Member Role: Primary Care Nurse Name: Not on Staff, PCP Position: S Physician (General Medicine) Member Role: PCP Name: Yamilex Bashir RN Position: S RN Member Role: Primary Care Nurse Care Team Related Persons Name: DENNISONJAMIE Address: [address] [place] [address] Name: NICOLE STALEY Address: home [address] [place] [id number]
--- OUTSIDE RECORDS SUMMARY | 2023-09-28 13:08 | XMS_ITS | Continuity of Care Document ---
Author Name Unknown Organization [facility] ter Address [address] [place] [address]- Care Team Providers Care Semiconductor Processing Group Leader Name Role Phone Not on Staff, PCP Primary Care Physician Unavail able En[place] [facility]s): 03/25/23 - 05/02/[address] [address] Attending Physician: Jericho Christy MD Admitting Physician: Jericho Christy MD Referring Physician: Jericho Christy MD Allergies, Adverse Reactions, Alerts No Known [...] 0 Refills, Maintenance, 04/28/23 7:26:00 EDT, Tablet, [facility], Partial fill upon [...] day, 0 Refills, Maintenance, 04/24/23 7:45:00 EDT, [place], Partial fill upon patient request if the [...] 04/28/23 7:25:00 EDT, Route to Pharmacy Electronically, [facility], Partial fill upon patient request [...] Persons Name: JAMIE DENNISON Address: [address] [place] [address] Name: NICOLE STALEY Address: home [address] [place] [id number]
--- OUTSIDE RECORDS SUMMARY | 2023-09-28 13:08 | XMS_ITS | Continuity of Care Document ---
Author Name Unknown Organization [facility] Address [address] [place] [address]- Care Team Providers Care Boiler Assistant Operator Name Role Phone Tray FONSECA, Janiya White Primary Care Physician Unavaila ble Encounter [facility] Date(s): 12/26/22 - 03/14/[address] [address] Attending Physician: Jericho Christy MD Referring Physician: Jericho Christy MD Allergies, Adverse Reactions, Alerts No Known Allergies Patient Care team information Care Team Related Persons Name: JAMIE DENNISON Address: [address] [place] [address] Name: NICOLE STALEY Address: home [address] [place] [address]
--- OUTSIDE RECORDS SUMMARY | 2023-09-28 13:08 | XMS_ITS | Continuity of Care Document ---
Author Name Unknown Organization [facility] ter Address [address] [place] [address]- Care Team Providers Care Drapery Operator Name Role Phone Not on Staff, PCP Primary Care Physician Unavail able Encounter [facility] Date(s): 04/28/23 - 04/29/[address] [id number] Discharge Disposition: A-Transfer VNA/Home Health Attending Physician: Jericho Christy MD Admitting Physician: [...] opioid drug. Start Date: 04/28/23 Status: Ordered Acetaminophen Tablet 650 mg, Tablet, By Mouth, 04/29/23 8:00:00 EDT Start Date: 04/29/23 Stop Date: 04/29/23 Status: Completed Amlodipine = 10 mg, By Mouth, Daily, 0 Refills, Maintenance, 04/24/23 7:45:00 EDT, Partial fill upon patient request if the prescription is for a schedule II opioid drug. Start Date: 04/24/23 Status: Ordered apixaban 2.5 mg oral tablet 1 tablet = 2.5 mg, By Mouth, 2 times a day, # 60 tablet, 0 Refills, Maintenance, 04/28/23 7:26:00 EDT, Tablet, [facility], Partial fill upon [...] day, 0 Refills, Maintenance, 04/24/23 7:45:00 EDT, [place], Partial fill upon patient request if the [...] oral tablet 20 mg, Tablet, By Mouth, 04/29/23 7:00:00 EDT Start Date: 04/29/23 Stop Date: 04/29/23 Status: Completed PROzac 40 mg oral capsule [...] 04/28/23 7:25:00 EDT, Route to Pharmacy Electronically, [facility], Partial fill upon patient request if the prescription is for a schedule II... Start Date: 04/28/23 Stop Date: 05/05/23 Status: Ordered Toradol Inj 15 mg, Injection, Intramuscular, Once, Routine, 04/29/23 8:00:00 EDT, Stop date 04/29/23 8:00:00 EDT Start Date: 04/29/23 Stop Date: 04/29/23 Status: Completed Results Radiology Reports * Exam Date Time Procedure Performing Provider Status 04/27/23 11:57 AM Knee 1 or 2 Views Right Jose Martin Christina Cindy; Auth (Verified) Notes: (Knee 1 or 2 Views Right) Reason For Exam: Postop RESULT: Knee 1 or 2 Views Right Knee 1 or 2 Views Right, 2 views Reason: Postop; Clinical Question(s): Other:; Implant Position; Special Instructions: To be done inPACU, No flexed knee in the lateral position. Keep leg straight; 2 Views COMPARISON: None. FINDINGS: Immediate postoperative changes following right total knee arthroplasty. No acute fracture. Prosthesis components are in anatomic alignment. Postoperative soft tissue gas is appreciated. External immobilizing device projects over the knee. IMPRESSION: Immediate postsurgical changes following right total knee arthroplasty. WSN: [id number] Ordering Physician: Nathaniel Ramirez Dictated By: Romie Glez MD Dictated Date/Time: 04/27/23 1:17 pm Reviewed By: Romie Glez MD Signed By: Romie Glez MD Signed Date/Time: 04/27/23 1:17 pm Transcribed By: RUBY Transcribed Date/Time: 04/27/23 1:15 pm Vital Signs Most recent to oldest [Reference Range]: 1 2 3 Height 155 cm (04/29/23 7:10 AM) 155 cm (04/29/23 3:31 AM) 155 cm (04/28/23 11:24 PM) Weight 52.8 kg (04/27/23 1:12 PM) 52.8 kg (04/27/23 7:26 AM) Oxygen Saturation [94-100 %] 95 % (04/29/23 7:10 AM) 94 % (04/29/23 3:31 AM) 95 % (04/28/23 11:24 PM) Pulse Rate [55-90 bpm] 76 bpm (04/29/23 7:10 AM) 76 bpm (04/29/23 7:04 AM) 74 bpm (04/29/23 3:31 AM) Body Mass Index [18.5-24.99 kg/m2] 21.98 kg/m2 (04/27/23 1:12 PM) 21.98 kg/m2 (04/27/23 7:26 AM) Blood Pressure [90-138/55-84 mm Hg] 115/92mm Hg (04/29/23 7:10 AM) 115/92mm Hg (04/29/23 7:04 AM) 125/61mm Hg (04/29/23 3:31 AM) Respiratory Rate [16-30 br/min] 16 br/min (04/29/23 12:55 PM) 16 br/min (04/29/23 7:49 AM) 16 br/min (04/29/23 7:10 AM) Temperature [96.8-100.4 DegF] 98.2 DegF (04/29/23 7:10 AM) 98.7 DegF (04/29/23 3:31 AM) 98.3 DegF (04/28/23 11:24 PM) Liters per Minute 2 L/min (04/27/23 12:15 PM) 2 L/min (04/27/23 12:00 PM) 2 L/min (04/27/23 11:45 AM) Mode of Delivery (Oxygen) Room air (04/29/23 7:10 AM) Room air (04/29/23 3:31 AM) Room air (04/28/23 11:24 PM) Blood pressure sites Arm, right (04/29/23 7:10 AM) Arm, left (04/29/23 3:31 AM) Arm, left (04/28/23 11:24 PM) Temperature Route Oral (04/29/23 7:10 AM) Oral (04/29/23 3:31 AM) Oral (04/28/23 11:24 PM) Dry Weight 52.8 kg (04/27/23 1:12 PM) 52.8 kg (04/27/23 7:26 AM) Weight Obtained Via Standing scale (04/27/23 7:26 AM) Dry Weight Obtained Via Standing scale (04/27/23 7:26 AM) History and physical note * Event Display: History and Physical Hospital Authored Date: * Reema Calvillo NP: MODIFY Event Display: History and Physical Hospital Authored Date: [id number] SURGICAL HISTORY AND PHYSICAL DATE: 04/27/2023 PRIMARY DIAGNOSIS: Osteoarthritis of the right knee. REASON FOR ADMISSION: The patient is being admitted for right total knee arthroplasty by Dr. Christy on 04/27/2023. HISTORY OF PRESENT ILLNESS: Ms. Valencia is a very pleasant 72-year-old female with complaints of right sided knee pain. She has a known longstanding history of right knee osteoarthritis, which has undergone a lengthy course of conservative management with generalized failure of nonsurgical options.Her pain is severe and is worsened with activity, has gotten to the point where it significantly interfering with her ability to perform activities of daily living as well as daily social tasks and she is now interested in pursuing a total knee replacement for definite relief of pain from her osteoarthritis. PAST MEDICAL HISTORY: 1. Osteoarthritis of the right knee. 2. Hypertension. 3. Depression. She sees a psychiatrist, which currently reports she is currently well maintained onProzac, lithium, lorazepam, Rexulti and nortriptyline. 4. ADD. PAST SURGICAL HISTORY: Thumb surgery. MEDICATIONS: Current list of medications includes: 1. Amlodipine 10 mg daily in the a.m., which she was instructed to take prior to arrival to the hospital. 2. Fluticasone. She uses 1 spray in each nostril 2 times per day. 3. [place] carbonate 300 mg at bedtime. 4. Lorazepam 1 mg daily at bedtime or throughout the day as needed for anxiety. She was instructed that she may use this medication prior to arrival to the hospital. 5. Nortriptyline 10 mg, she uses 3 capsules for a total of 30 mg daily at bedtime. 6. Propranolol 20 mg, she uses twice a day. [facility] 7. Prozac 40 mg, she takes 2 capsules for a total of 80 mg. She was instructed to take this prior to arrival to the hospital. 8. Rexulti 2 mg, she uses daily. She was instructed to take this prior to arrival to the hospital as well as bring with her to the hospital. ALLERGIES: No known drug allergies. SOCIAL HISTORY: She denies any alcohol or tobacco use. She does smoke marijuana occasionally. She is and her is here with her today. PHYSICIANS: The patient's primary care physician is Dr. Francis. REVIEW OF SYSTEMS: The patient denies headache, dizziness or syncope. Denies fever, chills, unexplained weight loss or fatigue. Denies rash or lesions. Denies rhinorrhea, earache, sore throat or swollen glands. Denies cough, shortness of breath or wheezing. Denies chest pain, pressure, palpitationsor edema. Denies nausea, vomiting, diarrhea, constipation, or abdominal pain. Denies dysuria, urinary urgency or frequency. Denies calf pain or history of blood clots to the legs. The patient denies any bruising or bleeding tendencies. Denies any active dental issues at this time. PHYSICAL EXAMINATION: VITAL SIGNS: Height 61 inches tall, weight is 116 pounds. Temperature is 97.3, blood pressure 106/73 and pulse is 60. GENERAL: Alert and oriented. Normal insight, affect, and grooming. SKIN: Intact without rash or lesions. Nails without clubbing or cyanosis. HEENT: Normocephalic. Conjunctivae pink. Sclerae are anicteric. NECK: Supple. Trachea midline. No lymphadenopathy. CHEST: Lungs are clear to auscultation bilaterally and breathing is unlabored. CARDIOVASCULAR: Heart has a regular rate and rhythm with normal S1, S2. No murmurs, rubs or gallopsappreciated. ABDOMEN: Soft, nontender with normal bowel sounds. EXTREMITIES: Lower extremities: Negative straight leg raise test bilaterally. Right knee without erythema, abrasion or edema noted. Skin temperature is normal and swelling is not present. Alignment is varus. The patient is experiencing tenderness to palpation located along the medial joint line. Patellar crepitus is absent. Range of motion is 0-125. There is no flexion contracture or extensor lag. Calves are supple and nontender. Ankle motion is satisfactory. Pedal pulses palpable bilaterally and skin about the feet is intact. PREOPERATIVE DIAGNOSTIC DATA: 4 views of the right knee were obtained including AP, Arredondo, sunrise and lateral views, severe DJD is present. Changes are consistent with osteoarthritis including joint space narrowing, subchondral sclerosis and osteophyte formation. Arthrosis primarily affects the medial compartment. EKG reads normal sinus rhythm at 95 beats per minute. LABORATORY DATA: CBC demonstrates a white blood cell count of 11.2 with an H and H of 13.7 and 44.1. Chemistry panel demonstrates a glucose of 103. Coags within normal limits. Hemoglobin A1c is 5.6. ASSESSMENT AND PLAN: The patient has advanced osteoarthritis of right knee and is now scheduled forright total knee arthroplasty by Dr. Christy on 04/27/2023. The patient was seen by her primary care physician, who stated she was medically cleared for surgery. She was also seen by her psychologist, who states that the patient is quite stable without any significant psychiatric symptoms. There is no psychiatric reason for not to have her knee surgery and participate in rehabilitation and physical therapy afterwards. The patient will receive IV TXA and be placed on eliquis postoperatively forDVT prophylaxis due to the interaction between ASA and [place], she will also not take any NSAIDS due to that reason She will not receive tramadol due to interactions with her psych meds. Discharge plans will be to home with services. The patient wishes to stay overnight. She has been counseled regarding the risks and benefits of the proposed procedure. Her questions have been answered and she acknowledges understanding. The patient wishes to proceed with surgery and has signed the consents, CONTACTS: Her , Jamie, with a phone number [phone], which is his home phone. His cell is [phone]. Prescriptions given at time of the H and P include pantoprazole, and Colace. She will require prescription for pain medicine upon discharge from the hospital as well as Eliquis. Dictated by: Reema Calvillo N.P. Signing Clinician: Jericho Christy M.D. Dictated: 04/21/2023 11:45:38 Transcribed: 07:20:41 AM Transcribed by: CK DocID: [id number] PRELIMINARY REPORT UNLESS MANUALLY/ELECTRONICALLY SIGNED Note * Yamilex Bashir RN: PERFORM Event Display: Discharge/Transfer Note Hospital Authored Date: [id number] Nursing Discharge Note Entered On: 04/29/2023 14:01 EDT Performed On: 04/29/2023 14:01 EDT by Yamilex Bashir RN Nursing Discharge Note 2 Discharge Time : 04/29/2023 14:00 EDT Discharge Level of Care at Discharge : Homehealth/VNA Discharge VNA/Hospice/Home Care(v001) : [facility] [phone] Patient Left Unit Via : Wheelchair Patient Accompanied Off Unit with : Responsible adult DC Instructions Provided & Signed by Pt : Yes Patient Understands D/C Instructions : Yes Verbalized Understanding of D/C Plan By : Patient Patient Instructions Discharge Signed : Yes Did Pt have Specialty Bed or Wound Vac : No Yamilex Bashir RN - 04/29/2023 14:01 EDT * Yamilex Bashir RN: PERFORM Event Display: Patient Education/Instruction Authored Date: [id number] Inpatient Adult Discharge Instructions [address] [address] Name: TEDDY VALENCIA : 1950 Visit: 04/28/2023 15:55:00 Current Date: 04/29/2023 13:26 Account: [id number] Inpatient Adult Discharge Instructions We would like to thank you for allowing us to assist you with your healthcare needs. The following includes patient education materials and information regarding your injury/illness. Our entire staffstrives to provide an excellent experience for our patients and their families. PLEASE ENSURE YOU FOLLOW-UP PER THE INSTRUCTIONS BELOW! ?? YOUR OPINION IS IMPORTANT TO US! Please complete the survey you may receive by mail or email. Your feedback will be used to make improvements to the healthcare experiences of our patients and their families. Surveys are administered by [employer] ?? If further treatment with your primary care physician or another doctor is recommended, it is important for you to keep the appointment. Call your primary care physician or return to the Emergency Department immediately if your condition worsens, fails to improve, or new symptoms develop. If you need to find a doctor, you can call [facility] for a referral at [phone] or toll free at [phone] or log in to [email or web address].. ?? You can view and manage your care through the patient portal or by using a health care jackie of your choosing. [employer] is a website that allows you to securely view your medical information including your hospital discharge summary, office visit summaries, medications and follow-up visits. You can also request appointments, renew medications, and request access to your medical information using a health care jackie of your choosing, or just ask a question. You can enroll at [email or web address] or register during your next office visit. You have been discharged from [facility], Patient Care Unit: SW7. If you have any questions regarding these instructions after you leave, please call us and we will be happy to assist you. [facility] Your Care Team Attending Physician Jericho Christy MD Discharging Providers Rajinder MCCABE, Reema Reason for Admission OA RIGHT IKNEE HOMERO Your Diagnosis Osteoarthritis of right knee Tests Performed Below is a partial list of the tests performed during your hospitalization. You may have had other tests and procedures not included in this list. Please discuss all test results with your provider. BUN CBC Creatinine Electrolytes XR Knee 1 or 2 Views Right Primary Care Provider Not on Staff, PCP Advance Directive Health Care Proxy on File Yes - Health Care Proxy Discharge Vitals Temperature: 98.2 DegF Height: 155 cm Pulse Rate: 76 bpm Weight: 52.8 kg Respiratory Rate: 16 br/min Body Mass Index: 21.98 kg/m2 Systolic Blood Pressure: 115 mm Hg Body surface area: 1.51 Diastolic Blood Pressure:??92 mm Hg??High ?? Oxygen Saturation: 95 % ?? Studies Pending All tests and labs ordered during this hospital stay have been completed unless listed below. Please discuss all pending results with your provider listed above in these instructions. ?? BUN CBC COVID-19 (2019 Novel Coronavirus) PCR Creatinine Electrolytes What to do next Instructions From Your Doctor Discharge Orders You Need to Schedule the Following Appointments Follow Up with??Jerihco Christy MD Why: Please keep all follow- ups as arranged with Dr. Christy Where: [address] [facility] [address] [facility] [place] [address]- Discharge Medications TEDDY VALENCIA :1950 Visit Date:04/28/2023 Medications: Please continue your medications until treatment is completed or stopped by your provider. Medications not listed below should be discontinued. Discuss any questions related to medications with your provider. What How Much When Instructions Next Dose Unchanged Acetaminophen (acetaminophen 325 mg oral tablet) 650 Milligram Oral Every 6 hours May take OTC not to exceed 3000 mg/ day ?? 04/29 @ 6pm Unchanged Al Hydroxide/ Mg Hydroxide/ Simethicone (Maalox Plus Liquid) 30 Milliliter Oral Every 4 hours as needed for Other Heartburn ?? As needed OTC for heartburn Unchanged Amlodipine 10 Milligram Oral Daily 04/30 @ 9am Unchanged apixaban (apixaban 2.5 mg oral tablet) 1 tab(s) Oral Twice a day Duration: 30 Days Pickup at [facility] 3 04/29 @ 9pm *Prevents a blood clot Unchanged brexpiprazole (Rexulti 0.5 mg oral tablet) 1 tab(s) Oral Daily 04/30 @ 9am Unchanged Docusate (Colace Capsule) 100 Milligram Oral Twice a day as needed for as needed for constipation If having loose, watery stools you may cut down to once a day 04/29 @ 4pm *Stool softener Unchanged Fluoxetine (PROzac 40 mg oral capsule) 1 capsule Oral Daily 04/30 @ 9am Unchanged Fluticasone Nasal (fluticasone 50 mcg/ inh nasal spray) 1 spray(s) Nares, Both Twice a day 04/29 @ 9pm Unchanged [place] (lithium carbonate) 300 Milligram Oral Daily at Bedtime 04/29 @ 9pm Unchanged Lorazepam (LORazepam 1 mg oral tablet) 1 tab(s) Oral Twice a day as needed for as needed for anxiety As needed for anxiety/ Per home regimen Unchanged Nortriptyline 30 Milligram Oral Daily at Bedtime 04/29 @ 9pm Unchanged Oxycodone (oxyCODONE 5 mg oral tablet) See instructions Take 1-2 tablets every 4 hours as needed for moderate to severe pain., As needed for Pain , Mild ?? Pickup at [place] [address] As needed for pain relief *STRONG NARCOTIC Unchanged Pantoprazole (pantoprazole 40 mg oral delayed release tablet) 40 Milligram Oral Daily 04/30 @ 9am Unchanged Propranolol (propranolol 20 mg oral tablet) 1 tab(s) Oral Twice a day 04/29 @ 9pm Unchanged Tizanidine (tiZANidine 2 mg oral tablet) 1 tab(s) Oral 3 times a day Duration: 7 Days Pickup at [facility] 3 As needed for muscle spasms Pharmacy Information [place] [address]: [address] [place], [place] [id number] [phone] Test Results Below is a partial list of the most recent Laboratory test results done prior to this discharge. You may have had other tests and procedures not included in this list. Please discuss all test resultswith your provider. Est Creatinine Clearance - 37.85 mL/min (04/29/2023) BUN (04/29/2023) ???BUN - 17 mg/dL CBC (04/29/2023) ???WBC - 10.8 k/mm3???RBC - 3.64 m/mm3???Hgb - 10.7 Gm/dL???Hct - 34.3 %???MCV - 94.2 femtoliters???MCH - 29.4 pg???MCHC - 31.2 g/dL???Platelet Count - 266 k/mm3???RDW-SD - 45.4 femtoliters???MPV - 10.3 femtoliters???Nucleated RBC (Automated) - 0.0 #/100 WBC'S???Abs. NRBC - 0.0 k/mm3 Creatinine (04/29/2023) ???Creatinine-Blood - 1.0 mg/dL???Estimated GFR Creatinine - 63 ML/MIN/1.73 M2 Electrolytes (04/29/2023) ???Sodium - 138 mmol/L???Potassium - 4.6 mmol/L???Chloride - 103 mmol/L???Bicarbonate Level - 29 mmol/L???Anion Gap - 6 Allergies (NKA means No Known Allergies) NKA Problems No qualifying data available Education Materials Below is the list of Educational Leaflet Providered with your Discharge Instructions. Oxycodone Oral Tablet?? Total Knee Replacement Discharge Instructions?? Valuables and Belongings I fully understand and agree that [facility] accepts no responsibility for all my personal property including clothing, toilet articles, radios, jewelry, dentures, hearing aids, rings, money, or any other property that is in my possession or is brought to me after admission. I understand certain valuables may be placed in a hospital safe for a short period of time. I understand that the hospital is not liable for loss or damage due to accident, fire, or other natural occurrence while said property is in the safe. I accept full responsibility for any personal property that I keep with me, and will not hold the hospital responsible in case of loss or disappearance. I acknowledge that i have been encouraged to send valuables and belongings home. ?? Review of Valuable and Belonging List: With patient, With family Possessions released to: pacu Date for Pt to Sign Valuables/Belongings: 04/27/23 13:26:00 ?? Other Discharge Information ? Case Management Discharge Plan?? Discharge Plan?? Discharge Agency Information?? Discharge Level of Care at Discharge: Homehealth/VNA Service Categories #1: Physical Therapy Discharge Rx Program: Discharge Prescription Program Service Comments #1: The VNA will call you the day after you are discharged to set up a visit time.If you do not hear from them, please call them at [facility] [phone] Discharge VNA/Hospice/Home Care: [facility] [phone] ? Pulmonary Rehab Status?? Pulmonary Rehab Discharge Status?? Respiratory Rate: 16 br/min ? Common Emergency Awareness Tips IS IT A STROKE? Act FAST and Check for these signs: FACE Does the face look uneven? ARM Does one arm drift down? SPEECH Does their speech sound strange? TIME Call at any sign of stroke ?? Heart Attack Signs Chest discomfort: Most heart attacks involve discomfort in the center of the chest and lasts more than a few minutes, or goes away and comes back. It can feel like uncomfortable pressure, squeezing, fullness or pain. Discomfort in upper body: Symptoms can include pain or discomfort in one or both arms, back, neck, jaw or stomach. Shortness of breath: With or without discomfort. Other signs: Breaking out in a cold sweat, nausea, or lightheaded. Remember, MINUTES DO MATTER. If you experience any of these heart attack warning signs, call to get immediate medical attention! ?? Smoking can increase your chances of developing chronic health problems and can cause harmful effects to other family members in your house. If you smoke, you are strongly encouraged to quit. Please call [facility] at [phone] or [phone] or log in to [email or web address] for referrals to smoking cessation programs. ?? 916 Suicide & Crisis Lifeline is available 08/06 if you or someone you know needs to find a reason to keep living. By calling 424 you'll be connected to a skilled, trained counselor at a crisis center in your area. INPATIENT DISCHARGE INSTRUCTIONS SIGNATURE PAGE TEDDY VALENCIA Location:[facility] Registration Date and Time:04/28/2023 15:55 EDT Primary Care Physician: Not on Staff, PCP Attending Physician: Westley FONSECA, Jericho Orozco, I TEDDY VALENCIA, have received the above patient education materials/instructions and have verbalized understanding. If ambulance or transport services are being used I further acknowledge being given a choice of service. ?? If you need to contact me, please call me at this number: . Patient/Monument Mason Name: Patient/Monument Mason Signature: Relationship to Patient: Witness Name/Signature: Date: * Yamilex Bashir RN: PERFORM Event Display: Patient Education Leaflets Authored Date: [id number] Oxycodone Oral Tablet ?? [id number] Oxycodone Oral Tablet Brands: Roxicodone Uses For pain. ?? Instructions This medicine may be taken with or without food. Swallow with a full glass (8 oz) of water unless your doctor gives you different instructions. Store at room temperature away from heat, light, and moisture. Do not keep in the bathroom. Please ask your doctor, nurse, or pharmacist how to discard unused medicines safely. To reduce constipation, eat high fiber foods, drink plenty of water and exercise. Avoid grapefruit juice while on this medicine. Drug interactions can change how medicines work or increase risk for side effects. Tell your healthcare providers about all medicines taken. Include prescription and [id number] medicines, vitamins, and herbal medicines. Speak with your doctor or pharmacist before starting or stopping any medicine. Tell your doctor if symptoms do not get better or if they get worse. ?? Cautions This medicine has an opioid. Opioids help many people but may cause addiction, especially if used for a long time. The addiction risk is higher if you have a substance use disorder (overuse of or addiction to drugs or alcohol). Ask your doctor about the benefits and risks. Ask your doctor or pharmacist if you should have naloxone on hand to treat opioid overdose. Teach your family or household members about the signs of an opioid overdose and how to treat it. If you stop this medicine suddenly after using it for a long time, you may have withdrawal. Your doctor may slowly lower your dose before stopping it. Tell your doctor right away if you have symptoms, such as unusual sweating, watering eyes, runny nose, chills, diarrhea, yawning, muscle aches, restlessness, anxiety, trouble sleeping, or thoughts of suicide. Tell your doctor and pharmacist if you ever had an allergic reaction to a medicine. Do not use the medication any more than instructed. This medicine may cause dizziness or fainting, especially after exercising or in hot weather. Be very careful when standing or sitting up quickly. If possible, avoid using with alcohol, marijuana, or other medicines that can cause dizziness or drowsiness. These include allergy/cold products, muscle relaxers, sleep aids, and pain relievers. Your ability to stay alert or to react quickly may be impaired by this medicine. Do not drive or operate machinery until you know how this medicine will affect you. This medicine passes into breast milk. Ask your doctor before . This medicine can hurt a new baby in the womb. If you become while on this medicine, tell your doctor immediately. Your doctor may switch you to a different medicine. This medicine should be used with caution in patients with breathing difficulties. Call your doctor right away if you notice slow or shallow breathing. Do not share this medicine with anyone who has not been prescribed this medicine. Some patients have serious side effects from this medicine. Ask your pharmacist to show you the information from the Food and Drug Administration (FDA) and discuss it with you. ?? Side Effects The following is a list of some common side effects from this medicine. Please speak with your doctor about what you should do if you experience these or other side effects. ??? decreased appetite ??? constipation ??? dizziness or drowsiness ??? lightheadedness ??? nausea and vomiting If you have any of the following side effects, you may be getting too much medicine. Please contactyour doctor to let them know about these side effects. ??? confusion ??? fainting ??? unusual or unexplained tiredness or weakness ??? difficulty or discomfort urinating Call your doctor or get medical help right away if you notice any of these more serious side effects: ??? agitated feeling or trouble sleeping ??? decreased awareness or responsiveness ??? breathing interruption during sleep ??? shallow, irregular breathing ??? hallucinations (unusual thoughts, seeing or hearing things that are not real) ??? seizures ??? severe stomach or bowel pain ??? weight loss A few people may have an allergic reaction to this medicine. Symptoms can include difficulty breathing, skin rash, itching, swelling, or severe dizziness. If you notice any of these symptoms, seek medical help quickly. ?? Extra Please speak with your doctor, nurse, or pharmacist if you have any questions about this medicine. ?? [email or web address] IMPORTANT NOTE: This document tells you briefly how to take your medicine, but it does not tell youall there is to know about it. Your doctor or pharmacist may give you other documents about your medicine. Please talk to them if you have any questions. Always follow their advice. There is a more complete description of this medicine available in Georgian. Scan this code on your smartphone or tablet or use the web address below. You can also ask your pharmacist for a printout. If you have any questions, please ask your pharmacist. The display and use of this drug information is subject to Terms of Use. Copyright(c) 2022 [employer]. ?? The [employer]. All rights reserved. This information is not intended as a substitute for professional medical care. Always follow your healthcare professional's instructions. ?? * Yamilex Bashir RN: PERFORM Event Display: Patient Education Leaflets Authored Date: [id number] Total Knee Replacement Discharge Instructions ?? 667 Total Knee Replacement Discharge Instructions ??? Please read and review your Total Knee Replacement Book for detailed information ??? Your appetite may be decreased but try to maintain a good balanced diet ?? Ice and elevation ?Ice is important to help keep swelling down. ?Keep elevated as much as possible. ?Ice the knee 4 times a day for 20 minutes each time. Be sure not to put the ice/ice pack directly on your skin. Use a dish towel or something similar between the ice and your skin. ??? Moving ? Get up and walk frequently. ??? Do 20 ankle pumps every hour. ??? Complete your exercises 4times a day, bending and straightening your knee ??? Begin exercises the evening you go home ??? Moving is especially important. This helps to prevent blood clots. Take short frequent walks. ? Wear your knee brace when walking until your surgeon or physical therapist tells you to stop. ??? You may sleep with or without the brace and sleep anyway you are comfortable. ??? Place a pillow underthe ankle/lower leg when lying down to help with extension of your knee. ??? Do not put a pillow under your knee ??? Continue to move your foot up and down, this exercise helps to prevent blood clotsand to help reduce swelling in your knee ??? No driving until approved by your surgeon ?? Incision ?Your incision is closed with absorbable stitches and surgical glue. ?The dressing iswaterproof. You may shower the next day. ??? You may develop some discoloration around your incision (yellowish or bruising) ??? Your dressing will stay on for 1-2 weeks ?You cannot go in a bath, pool, ocean, pond, ceja or jacuzzi for 6 weeks. This is to reduce your risk of infection ? You may have some numbness around the incision. This is normal and will improve with time. Some patients have numbness that does not completely go away. ?? When to call the Surgeon?CALL [phone] ?If you have shortness of breath or chest pain, call 911 or go to the nearest emergency department. ??? If you have drainage and/or redness around your wound. ?If you have a fever greater than 101.5 (38.5 degrees Celsius). ?If you have persistent calf pain or swelling (This couldbe a blood clot). ??? If your pain is worsening. ? If you have any difficulty with urination or burning with urination ? * Event Display: Adult Preadmission Health Questionnaire Authored Date: * Reema Calvillo NP: MODIFY, SIGN, PERFORM, SIGN, VERIFY Event Display: Discharge/Transfer Note Hospital Authored Date: Patient: TEDDY VALENCIA Age: 72 years Sex: Female : 1950 Associated Diagnoses: None Author: Reema Calvillo NP Discharge Summary Admission Date: April 27, 2023 Discharge Date: April 29, 2023 Admitting Diagnosis: Right knee osteoarthritis Discharge Diagnosis: Right knee osteoarthritis Final Diagnosis : Right knee osteoarthritis Procedure: Right total knee arthroplasty Surgeon: Dr. Jericho Christy Past Medical History: 1. Osteoarthritis of the right knee. 2. Hypertension. 3. Depression. She sees a psychiatrist, which currently reports she is currently well maintained onProzac, lithium, lorazepam, Rexulti and nortriptyline. 4. ADD. PAST SURGICAL HISTORY: Thumb surgery. Orthopedics: The patient is status post right total knee arthroplasty. It is anticipated that they will be discharged home today pending PT, OT clearance. The patient is doing well from a surgical standpoint. Their incision is healing well. Neurovascular status is intact. Calves are supple and nontender. Making good progress with Physical Therapy and Occupational therapy. Supervision with ambulation walking 30 feet , ambulating with a walker WBAT. ROM 0-90. Pain is well controlled on their current regimen, Acetaminophen 650 mg every 6 hours, and Oxycodone as needed for moderate to severe pain. Patient is tolerating this well. They will be sent home with a prescription for this medication. Prescription: Oxycodone IR 5mg tablet. Take 1-2 tablets every 4 hours as needed for pain x 7 days. # 84 tablet. Hospital course: Relatively uneventful medically. The patient denies any nausea or vomiting and has been able to tolerate their diet. The patient required an extra day stay as she did not pass PT on POD # 1. Pain is controlled now. Patient is voiding spontaneously. + bowel sounds. Bowels medications given with anticipation of a BM. No other issues. No calf tenderness. Current Medication List: Acetaminophen (acetaminophen 325 mg oral tablet) 650 Milligram By Mouth Every 6 hours May take OTC not to exceed 3000 mg/day Al Hydroxide/Mg Hydroxide/Simethicone (Maalox Plus Liquid) 30 Milliliter By Mouth Every 4 hours as needed Other Heartburn Amlodipine 10 Milligram By Mouth Daily apixaban (apixaban 2.5 mg oral tablet) 1 tab(s) 2.5 Milligram By Mouth 2 times a day for 30 Days brexpiprazole (Rexulti 0.5 mg oral tablet) 1 tab(s) 0.5 Milligram By Mouth Daily Docusate (Colace Capsule) 100 Milligram 1 capsule By Mouth 2 times a day as needed as needed for constipation Fluoxetine (PROzac 40 mg oral capsule) 1 capsule 40 Milligram By Mouth Daily Fluticasone Nasal (fluticasone 50 mcg/inh nasal spray) 1 spray(s) Nares, Both 2 times a day [place] (lithium carbonate) 300 Milligram By Mouth Daily at bedtime Lorazepam (LORazepam 1 mg oral tablet) 1 tab(s) 1 Milligram By Mouth 2 times a day as needed as needed for anxiety Nortriptyline 30 Milligram By Mouth Daily at bedtime Oxycodone (oxyCODONE 5 mg oral tablet) See Instructions as needed Take 1-2 tablets every 4 hours asneeded for moderate to severe pain. Pain , Mild Pantoprazole (pantoprazole 40 mg oral delayed release tablet) 40 Milligram By Mouth Daily Propranolol (propranolol 20 mg oral tablet) 20 Milligram 1 tablet By Mouth 2 times a day Tizanidine (tiZANidine 2 mg oral tablet) 2 Milligram 1 tablet By Mouth 3 times a day for 7 Days Allergies: Allergies (Active and Proposed Allergies Only) NKA (Severity: Unknown severity, Onset: Unknown) Current Labs: Basic Metabolic Panel: Hematology: Sodium: 140 mmol/L (04/28/23) Hgb: 11.3 Gm/dL (04/28/23) Potassium (POC): 4.3 mmol/L (04/28/23) Hemoglobin A1C (Monitoring): ------ Phosphorus: ------ WBC: 16.1 k/mm3 (04/28/23) Magnesium: ------ Platelets: 274 k/mm3 (04/28/23) BUN (POC) POC Cartridge: 18 mg/dL (04/28/23) INR Level: ------ Creatinine-Blood: 0.8 mg/dL (04/28/23) Creatinine Clearance: ------ Additional - Last 24 Hours Abs. NRBC: 0.0 k/mm3 (04/28/23) Anion Gap: 7 (04/28/23) Bicarbonate Level: 27 mmol/L (04/28/23) BUN: BUN (04/28/23) Chloride: 106 mmol/L (04/28/23) Creatinine, Blood: Creatinine, Blood (04/28/23) Est Creatinine Clearance: 47.31 (04/28/23) Estimated GFR Creatinine: 74 ML/MIN/1.73 M2 (04/28/23) Hct: 35.5 % (04/28/23) MCH: 29.4 pg (04/28/23) MCHC: 31.8 g/dL (04/28/23) MCV: 92.4 femtoliters (04/28/23) MPV: 9.7 femtoliters (04/28/23) Nucleated RBC (Automated): 0.0 #/100 WBC'S (04/28/23) RBC: 3.84 m/mm3 (04/28/23) RDW-SD: 43.4 femtoliters (04/28/23) DVT prophylaxis Eliquis 2.5 mg p o bid x 30 days Disposition: Anticipates being discharged today to home. Follow up at [facility] in two weeks , patient is aware of this. The patient has a Silverlon dressing in place. They may shower with it and the dressing can be discontinued on POD 14. Discharge Information Admission Date: 04/27/2023 Principal Discharge Diagnosis Discharge Plan Discharge Disposition Discharge: home with VNA. Home Health Face to Face I certify that this patient is under my care and that I or an allowed non- physician practitioner working with me, had a [id number] encounter with the patient on this date: 04/28/2023. The encounter with the patient was in whole, or in part, for the following medical condition, whichis the primary reason for home health care: Osteoarthritis of right knee. Physical Therapy: Functional mobility training, Home exercise program to strengthen, increase ROM, Falls prevention training. Homebound due to: Inability to leave home without assistance/supervision, Inability to ambulate without assistance, Pain, decreased strength, and endurance. Physician Signature: Westley FONSECA, [facility] * Event Display: Cardiac Rhythm Strips Authored Date: Hospital Progress note * Yamilex Bashir RN: SIGN, MODIFY, VERIFY, PERFORM, SIGN Event Display: Progress Note Hospital Authored Date: [id number] Patient: TEDDY VALENCIA Age: 72 years Sex: Female : 1950 Associated Diagnoses: None Author: Yamilex Bashir RN Findings Problem Related to Alteration in Musculoskeletal : Alteration in Musculoskeletal Func/new 04/29/2023 6:00 EDT Alteration in Musculoskeletal Related to Mobility, Orthopedic Procedure, Total joint replacement, Other: Right TKR POD #1 Goals & Outcomes, Musculoskeletal Affected extremity will maintain color/motion/sensation, Pt able to perform ADL's to best of ability, Pt demonstrates precautions/exercise/ transfers per protocol, Pt will ambulate safely with assistive device, Pt will be free from complications of immobility, Pt will demonstrate ability to participate in ADL's, Pt will report acceptable level of comfort/painrelief Interventions, Musculoskeletal Monitor patients ambulation status, monitor Color/Motion/Sensation, Assist with repositioning, Encourage deep breathing & coughing exercises, Notify MD immediately if tissue perfusion deteriorates, Obtain assistive devices as needed, Teach & Encourage use of Incentive spirometer, Teach Pt/caregiver on exercises, Teach pt/caregiver on use of pain scale, TeachPt/caregiver on safety precautions, Instruct pt on gait training, [place] Pt/caregiver to Total KneeReplacement protocol Goals/Interventions, Musculoskeletal Yes Musculoskeletal, Problem Start 04/27/2023 13:28 Reviewed Plan with, Musculoskeletal Patient Patient Progression, Musculoskeletal Pt progressing according to plan . Nursing Data Vital Signs : VITAL SIGNS SECTION 04/29/2023 7:10 EDT Early Warning Score 2.00 04/29/2023 7:10 EDT Temperature 98.2 DegF Temperature Route Oral Pulse Rate 76 bpm Respiratory Rate 16 br/min Systolic Blood Pressure 115 mm Hg Diastolic Blood Pressure 92 mm Hg H Blood pressure sites Arm, right Mean Arterial Pressure 100 mm Hg Pulse Pressure 23 mm Hg Oxygen Saturation 95 % Mode of Delivery (Oxygen) Room air . Narrative/Incidental POD #2 RTK. Patient is alert and oriented x3, tremors noted at baseline. Lungs are clear upon auscultation. IS at bedside, patient educated on proper use and encouraged to use 10x/ hour. Denies any SOB, denies any CP. +BSx4, abdomen soft, nontender/ nondistended. Last BM was 04/26. Reporting +flatus. Regular diet in place, tolerating well. Reporting +nausea this AM- refusing PO Zofran. Voiding clear, yellow urine in bathroom. Able to get OOB with 1a with walker, safety reinforcements in need while OOB. Patient found to be impulsive/ ambulating in room without assistance. +PP, +D/P flex, +CMS. R knee Silverlon dressing, C/D/I. Ice applied to knee for comfort. Reporting pain /10, given scheduled Tylenol and IM Toradol this AM and PRN Tizanidine. Patient found to be very impulsive this AM soheld PRN Oxycodone. PT will see patient again this afternoon prior to discharge home d/t impulsiveness, patient aware and tearful but in agreement, at bedside. Cboots on bilaterally. Eliquis for DVT prophlyaxis. No further concerns at this time, call quigley within reach at bedside.. . Evaluation P: Alteration in musculoskeletal I: See interventions listed in care plan above E: POD #2 RTK. +PP, +D/P flex, +CMS. R knee Silverlon dressing, C/D/I. Ice applied to knee for comfort. Reporting pain 6/10, given scheduled Tylenol and IM Toradol this AM. Patient found to be very impulsive this AM so held PRN Oxycodone. Able to get OOB with 1a with walker, patient in need of safety reinforcements. PT will see patient again this afternoon prior to discharge home, patient aware and tearful but in agreement, at bedside. . Discharge Information Case Management Discharge Plan : Case Management Discharge Plan Data 04/28/2023 14:25 EDT Discharge Level of Care at Discharge Not Done: Order Discontinued (Not Done) 04/27/2023 19:32 EDT Discharge Level of Care at Discharge Homehealth/VNA Discharge VNA/Hospice/Home Care [facility] [phone] Name of Agency #1 In Error (In Error) Service Categories #1 Physical Therapy Service Comments #1 The VNA will call you the day after you are discharged to set up a visit time. If you do not hear from them, please call them at [facility] [phone] Rehabilitation Discharge : Rehab Discharge Index 04/28/2023 15:20 EDT Walker: distance >50 04/28/2023 11:04 EDT Walker: distance 20-50 04/28/2023 10:54 EDT Transfer tub/shower OT Plan Supervision 04/27/2023 15:00 EDT Comments on treatment indicated 72 yo F s/p R TKA on 04/[address] Christy. WBAT R LE, KI only if pt unable to SLR. Skilled PT for therex, transfers, amb with RW, stairs. Rec home with services. Walker: distance 20-50 Distance pt will ambulate 100 ft with RW Full chart review completed Yes Hospital course Hospital course Other findings see comment Plan of care PT Gait training, Transfer training, Therapeutic exercise, Functional Activities, Balance training, Neuromuscular education 04/27/2023 14:51 EDT Comments on treatment indicated OT to address ADL's, transfers, safety. Full chart review completed Yes Hospital course PROCEDURE: Pt s/p right total knee arthroplasty by Dr. Christy on 04/27/2023. Transfer tub/shower OT Plan Supervision * Yamilex Bashir RN: PERFORM Event Display: Progress Note Hospital Authored Date: Patient cleared for discharge this afternoon. No IV present. Discharge instructions reviewed in great detail with patient and at bedside. All questions answered... * Reema Calvillo NP: PERFORM, SIGN, VERIFY Event Display: Progress Note Hospital Authored Date: Patient: TEDDY VALENCIA Age: 72 years Sex: Female : 1950 Associated Diagnoses: None Author: Reema Calvillo NP Ortho POD 2 s/p right TKA S: The patient denies any SOB/CP, N/V. Voiding spontaneously. Pain well controlled on current regimen. The patient had an episode of dizziness and shakiness on postoperative day 1 she was unable to complete the stairs. The patient is hopeful for discharge home after passing physical therapy today. R nan of motion 0-90 O: Vitals Temperature 98.2 (07:11) Systolic Blood Pressure 115 (07:11) Diastolic Blood Pressure 92 (07:11) Pulse 76 (07:11) SpO2 95 (07:11) Respiratory Rate 16 (07:11) Last 24 Hours Basic Metabolic Panel: Hematology: Sodium: 138 mmol/L (04/29/23) Hgb: 10.7 Gm/dL (04/29/23) Potassium (POC): 4.6 mmol/L (04/29/23) Hemoglobin A1C (Monitoring): ------ Phosphorus: ------ WBC: 10.8 k/mm3 (04/29/23) Magnesium: ------ Platelets: 266 k/mm3 (04/29/23) BUN (POC) POC Cartridge: 17 mg/dL (04/29/23) INR Level: ------ Creatinine-Blood: 1.0 mg/dL (04/29/23) Creatinine Clearance: ------ Additional - Last 24 Hours Abs. NRBC: 0.0 k/mm3 (04/29/23) Anion Gap: 6 (04/29/23) Bicarbonate Level: 29 mmol/L (04/29/23) BUN: BUN (04/29/23) Chloride: 103 mmol/L (04/29/23) Creatinine, Blood: Creatinine, Blood (04/29/23) Est Creatinine Clearance: 37.85 (04/29/23) Estimated GFR Creatinine: 63 ML/MIN/1.73 M2 (04/29/23) Hct: 34.3 % (04/29/23) MCH: 29.4 pg (04/29/23) MCHC: 31.2 g/dL (04/29/23) MCV: 94.2 femtoliters (04/29/23) MPV: 10.3 femtoliters (04/29/23) Nucleated RBC (Automated): 0.0 #/100 WBC'S (04/29/23) RBC: 3.64 m/mm3 (04/29/23) RDW-SD: 45.4 femtoliters (04/29/23) General: alert, lucid, in NAD Heart: RRR, normal S1S2 Lungs: CTAB Abdomen: soft NT BS active Neurovascular: calves soft NT, +DF/+PF Dressing: CDI A/P: 72 year old female with history of hypertension, depression, ADD, now s/p right TKA POD 2 HTN: Currently well controlled continue amlodipine Depression: Continue psych meds. Pain: Acetaminophen 650 mg every 6 hours, oxycodone as needed for severe pain. Toradol added IM x 1. DVT prophylaxis: Eliquis 2.5 mg PO BID WBAT/ PT/OT Discharge home pending PT/OT clearance Case discussed with Dr. Christy * Manjit Horne RN: PERFORM, SIGN, VERIFY Event Display: Progress Note Hospital Authored Date: Patient: TEDDY VALENCIA Age: 72 years Sex: Female : 1950 Associated Diagnoses: None Author: Manjit Horne RN Findings Problem Related to Alteration in Musculoskeletal : Alteration in Musculoskeletal Func/new 04/28/2023 19:00 EDT Alteration in Musculoskeletal Related to Mobility, Orthopedic Procedure, Total joint replacement, Other: Right TKR Goals & Outcomes, Musculoskeletal Affected extremity will maintain color/motion/sensation, Pt able to perform ADL's to best of ability, Pt demonstrates precautions/exercise/ transfers per protocol, Pt will ambulate safely with assistive device, Pt will be free from complications of immobility, Pt will demonstrate ability to participate in ADL's, Pt will report acceptable level of comfort/painrelief Interventions, Musculoskeletal Monitor patients ambulation status, monitor Color/Motion/Sensation, Assist with repositioning, Obtain assistive devices as needed, Teach Pt/caregiver on ADL's & adaptive equipment, Teach Pt/caregiver complications of immobility, Teach Pt/caregiver on safety precautions BH Goals/Interventions, Musculoskeletal Yes Musculoskeletal, Problem Start 04/27/2023 13:28 Reviewed Plan with, Musculoskeletal Patient Patient Progression, Musculoskeletal Pt progressing according to plan . Evaluation Pt A/O. LS clear. BUE tremors at baseline. Abd SNT. LBM 04/26. c/o pain 03/25 to R knee. Silverlon dsg c/d/i. Ice applied and pt medicated with prn oxy with good effect. RLE +CSM. +D/P flex. +2pp. Pt oob with one assist and walker. CBoots on bilat. pt resting comfortably in bed. Safety maintained. Call button within reach. . Discharge Information Case Management Discharge Plan : Case Management Discharge Plan Data 04/28/2023 14:25 EDT Discharge Level of Care at Discharge Not Done: Order Discontinued (Not Done) 04/27/2023 19:32 EDT Discharge Level of Care at Discharge Homehealth/VNA Discharge VNA/Hospice/Home Care [facility] [phone] Name of Agency #1 In Error (In Error) Service Categories #1 Physical Therapy Service Comments #1 The VNA will call you the day after you are discharged to set up a visit time. If you do not hear from them, please call them at [facility] [phone] Rehabilitation Discharge : Rehab Discharge Index 04/28/2023 15:20 EDT Walker: distance >50 04/28/2023 11:04 EDT Walker: distance 20-50 04/28/2023 10:54 EDT Transfer tub/shower OT Plan Supervision 04/27/2023 15:00 EDT Comments on treatment indicated 72 yo F s/p R TKA on 04/[address] Christy. WBAT R LE, KI only if pt unable to SLR. Skilled PT for therex, transfers, amb with RW, stairs. Rec home with services. Walker: distance 20-50 Distance pt will ambulate 100 ft with RW Full chart review completed Yes Hospital course Hospital course Other findings see comment Plan of care PT Gait training, Transfer training, Therapeutic exercise, Functional Activities, Balance training, Neuromuscular education 04/27/2023 14:51 EDT Comments on treatment indicated OT to address ADL's, transfers, safety. Full chart review completed Yes Hospital course PROCEDURE: Pt s/p right total knee arthroplasty by Dr. Christy on 04/27/2023. Transfer tub/shower OT Plan Supervision Patient Care team information Care Team Personnel Name: Manjit Horne RN Position: S RN Member Role: Primary Care Nurse Name: Deanne Agrawal RN Position: S RN Member Role: Primary Care Nurse Name: Not on Staff, PCP Position: [facility] Physician (General Medicine) Member Role: PCP Name: Yamilex Bashir RN Position: [facility] RN Member Role: Primary Care Nurse Care Team Related Persons Name: JAMIE VALENCIA Address: [address] [place] [address] Name: NICOLE STALEY Address: home [address] [place] [id number]
[2023-09-28 13:20] VITALS: BP 120/57; PULSE 88; RESP 16; TEMP 36.7; O2SAT 98
--- NOTE | 2023-09-28 14:15 | MHC.CLN ---
Addendum entered by Aida Moran RD 09/28/23 14:21: RECEIVED NUTRITION CONSULT FOR POOR APPETITE. SEE ORIGINAL NOTE 09/28/23. Original Note: NUTRITION PATIENT ADMITTED TO [facility] FROM MED/SURG UNIT. RD HAD BEEN FOLLOWING PATIENT ON THAT UNIT. PO 75-100% X 5 DAYS. RECENT HX POOR PO INTAKE. CONTINUE MAGIC CUP SUPPLEMENT BID (580 KCALS, 18 G PROTEIN). DIET=REGULAR, PUREE. PREFERS PUREE CONSISTENCY. RD WILL FOLLOW UP WEEKLY PATIENT.
[2023-09-28 14:26] LABS: Estimated Glomerular Filt Rate > 60
[2023-09-28 14:56] VITALS: BMI 19.4
--- NOTE | 2023-09-28 15:03 | PC.NURSE ---
Pt. escorted onto unit from [facility] medical unit via WC by this RN at 13:20. Pt.'s escorted pt. as far as unit entrance and is aware of admission. Pt. 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 Pt. alert and oriented X 4. She is weak and deconditioned and walking with a walker and staff assist. She has had recent weight loss due to poor appetite and swallowing issues and is eating a pureed diet and having her meds crushed. Pt. reports that her anxiety is 9/10 related to her admission to unit and her depression is 8/10. She is pleasant and cooperative. Her affect is flat and inexpressive, but she made eye contact during the admission process and offered one weak smile. She denies SI/HI/perceptual disturbances.
[2023-09-28 17:59] VITALS: BMI 19.4
[2023-09-28 18:00] VITALS: BP 123/67; PULSE 74; RESP 18; TEMP 36.4; O2SAT 94
[2023-09-28] MEDS: Ascorbic Acid 500 MG TABLET 2000 MG PO (21:15)
[2023-09-28] MEDS: Melatonin 3 MG TABLET 6 MG PO (21:16)
[2023-09-28] MEDS: risperiDONE 0.25 MG TABLET PO (21:16)
[2023-09-28] MEDS: Propranolol HCL 20 MG TABLET PO (21:16)
[2023-09-28] MEDS: Fluticasone Propionate Nasal 16 GM SPRAY 1 SPRAY NOSTRIL-B (21:22)
[2023-09-28] MEDS: hydrOXYzine HCL 25 MG TABLET PO (23:49)
[2023-09-28] MEDS: Acetaminophen 325 MG TABLET 650 MG PO (23:49)
[2023-09-29] MEDS: Omeprazole 20 MG CAPSULE.DR PO (06:28)
[2023-09-29 08:11] LABS: Alanine Aminotransferase 178 U/L (0-31); Albumin Level 3.4 g/dL (3.5-5.0); Alkaline Phosphatase 129 U/L (39-117); Anion Gap 12 (12-20); Aspartate Amino Transferase 96 U/L (5-31); Bilirubin Total 0.3 mg/dL (0.0-1.0); Blood Urea Nitrogen 14 mg/dL (9-16); Calcium 10.6 mg/dL (8.4-10.2); Carbon Dioxide 31 mmol/L (22-29); Chloride 105 mmol/L (96-108); Cholesterol 208 mg/dL (<200); Creatinine Clr Calc Pharmacy 48.5; Estimated Glomerular Filt Rate > 60; Glucose Fasting 133 mg/dL (60-99); HDL Cholesterol 42 mg/dL (>40); LDL Cholesterol Calculated 140 mg/dL (<100); Sodium 144 mmol/L (135-145); Total Protein 6.2 g/dL (6.5-8.0); Triglycerides 131 mg/dL (<150)
[2023-09-29 09:06] VITALS: BP 109/66; PULSE 99; RESP 18; TEMP 36.7; O2SAT 94
[2023-09-29] MEDS: Multivitamin TABLET 1 TAB PO (09:17)
[2023-09-29] MEDS: Tamsulosin HCL 0.4 MG CAPSULE PO (09:17)
[2023-09-29] MEDS: risperiDONE 0.25 MG TABLET PO ×2 (09:17→20:05)
[2023-09-29] MEDS: Vortioxetine Hydrobromide 5 MG TABLET PO (09:18)
[2023-09-29] MEDS: Fluticasone Propionate Nasal 16 GM SPRAY 1 SPRAY NOSTRIL-B (09:21)
--- NOTE | 2023-09-29 12:56 | HO.PSYADMNOT ---
HPI Date of Service: 09/29/23 Chief Complaint: Severe depression Sources of Information: patient interviewed, chart reviewed and crisis/core team assessment reviewed Additional Sources of Information: Dr. Shearer [facility] Subjective Notes: [place] Warning and Conditional Voluntary Narrative: The patient is a 72-year-old female, , transfer from the medical unit with a past history of bipolar type 2, personality disorder NOS and anxiety. The patient was initially admitted into the hospital for altered mental status. She recently had a course of Spravatto for depression in the community that probably could have triggered the serotonergic syndrome. 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 She had been delirious on and off for several days a certain point she will look catatonic. After being medically cleared the patient was transferred to the geriatric unit Psychiatry for continuation of care. On admission, the patient was extremely tired, with depressed mood, anhedonia, lack of energy, psychomotor retardation, limited eye contact and slow responses. While she was in the unit on Medicine, the patient was grossly paranoid and elusive so we decided to keep on a low dose of Risperdal. She was also was started on antidepressants upstairs. At this moment, the patient denies active suicidal ideation but her lack of energy is remarkable. No evidence of psychotic symptoms at this moment, she denies manic symptoms. Will gather more collateral information we are going to discuss the case with Dr. Shearer her regular psychiatrist and start working on the possibility of even ECT for depression. Past Psychiatric History: -Pt sees Dr. Shearer in OP setting recent hospitalization at the [place] [facility] Has had often on relapses over the past year and half -Remote hx of [facility] 12 yrs ago, recent admissions at [facility] since 2020 with at least 4 admissions in the last 2 years Medical Evaluation Reviewed: Yes [facility] Medical History Urinary tract infection Depression Hypothyroidism ZAC (generalized anxiety disorder) Hypertension ADHD (attention deficit hyperactivity disorder) Surgical History H/O thumb surgery H/O cone biopsy of cervix Family History: Bipolar disorder Social History: The patient is 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 she does occasionally smoke marijuana Substance History: Denies Trauma History: NA Diagnostics Vital Signs (24Hr): Vital Signs - 24 hr 09/28/23 13:20 09/28/23 18:00 09/29/23 09:06 Temperature 98.1 F 97.5 F 98.1 F Pulse Rate 88 74 99 Respiratory Rate 16 18 18 Blood Pressure 120/57 L 123/67 109/66 Pulse Oximetry 98 94 94 Oxygen Delivery Method Room Air Room Air Room Air BMI result Body Mass Index 19.4 Labs 09/29/23 07:53 Labs: Laboratory Results - last 48 hr 09/28/23 09/29/23 14:09 07:53 Sodium 144 Potassium 4.0 Chloride 105 Carbon Dioxide 31 H Anion Gap 12 BUN 14 Creatinine 0.82 0.76 Estim Creat Clear Calc TNP 48.5 Estimated GFR > 60 > 60 Fasting Glucose 133 H Calcium 10.6 H D Total Bilirubin 0.3 AST 96 H ALT 178 H Alkaline Phosphatase 129 H Total Protein 6.2 L Albumin 3.4 L Triglycerides 131 Cholesterol 208 H LDL Cholesterol, Calc 140 H HDL Cholesterol 42 Meds/Allergies Meds Home Medications Medication Instructions Recorded Confirmed Type amlodipine 5 mg tablet 10 mg PO DAILY 10/23/22 08/27/23 History fluticasone propionate 50 1 spray intranasal BID 08/27/23 08/27/23 History mcg/actuation nasal spray,suspension propranolol 20 mg tablet 20 mg PO BID 08/27/23 08/27/23 History Allergies Allergies Allergy/AdvReac Type Severity Reaction Status Date / Time No Known Allergies Allergy Verified 08/27/23 10:27 Mental Status Exam Mental Status Exam Patient Appearance: Appropriate Patient Orientation: Person and Situation Level of Consciousness: Awake and Appropriate Patient Behavior: Guarded and Passive Mood Description: Withdrawn Affect Description: Constricted Patient Cognition Impaired: Yes Ability to Follow Directions: Good Speech Pattern: Clear Hallucinations: None Delusions: Not Present Thought Process: Distracted, Evasive and Slowed Thinking Thought Content: positive for [place] and positive for Poverty of Content Judgement: Fair Assessment & Plan Assessment & Plan (1) Bipolar II disorder: Status: Inactive Code(s): F31.81 - Bipolar II disorder (2) Delirium: Status: Acute Code(s): R41.0 - Disorientation, unspecified Plan The patient is an elderly female with a past history of mood disorder, anxiety personality disorder NOS who was brought into the hospital for altered mental status after a short course of as provide of for depression. 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 After being medically cleared she was transferring to this facility for psychiatric stabilization. Plan 1. Gather collateral information. 2. Continue Risperdal and antidepressants as started the medicine. 3. Regular blood work and reassessment with results. 4. 15 minute checks. 5. Speech and swallow evaluation for possible change of diet. Patient educated on: diagnosis Informed Consent: further education needed Reason for continued inpatient stay Substantial Risk for: inability to function, rapid decompensation and med/psych decompensation Statement Statement: I have reviewed the history and physical and performed a pertinent examination on my patient. No changes have occurred unless specified. If the History and Physical was not performed prior to admission, the Hospitalist's service will be consulted for completing the admission physical. Time Spent With Patient Time: Total time managing care of this patient today __45__ minutes.
[2023-09-29 15:05] VITALS: BP 106/60; PULSE 89
[2023-09-29 18:00] VITALS: BP 148/64; PULSE 77; RESP 17; TEMP 36.4; O2SAT 96
[2023-09-29] MEDS: Acetaminophen 325 MG TABLET 650 MG PO (20:05)
[2023-09-29] MEDS: Propranolol HCL 20 MG TABLET PO (20:05)
[2023-09-29] MEDS: Ascorbic Acid 500 MG TABLET 2000 MG PO (20:05)
[2023-09-30] MEDS: Omeprazole 20 MG CAPSULE.DR PO (05:54)
[2023-09-30 09:30] VITALS: BP 140/70; PULSE 74; RESP 18; TEMP 36.6; O2SAT 96
[2023-09-30] MEDS: Tamsulosin HCL 0.4 MG CAPSULE PO (09:58)
[2023-09-30] MEDS: Vortioxetine Hydrobromide 5 MG TABLET PO (09:58)
[2023-09-30] MEDS: amLODIPine Besylate 10 MG TABLET PO (09:58)
[2023-09-30] MEDS: Propranolol HCL 20 MG TABLET PO ×3 (09:58→20:10)
[2023-09-30] MEDS: risperiDONE 0.25 MG TABLET PO ×2 (09:58→20:11)
[2023-09-30] MEDS: lisinopriL 5 MG TABLET 15 MG PO (09:58)
[2023-09-30] MEDS: Multivitamin TABLET 1 TAB PO (09:58)
[2023-09-30] MEDS: Fluticasone Propionate Nasal 16 GM SPRAY 1 SPRAY NOSTRIL-B ×2 (10:00→20:19)
[2023-09-30 14:20] VITALS: BP 140/72; PULSE 74
--- NOTE | 2023-09-30 16:14 | P.PNPSI_ITS ---
Subjective Subjective Date of Service: 09/30/23 Reason For Visit: Severe depression Subjective Notes: Conditional Voluntary Guardianship: No Medical Problems Affecting Mental Status: Yes (recent wt loss weakness protein wasting ) Interim History: The patient is sad anxious somewhat ruminating. She has been less paranoid since moving to the geriatric psychiatric unit. She is fatigued has been leaving her room eating meals still complains of difficulty with swallowing has been tolerating Trintellix Patient aware she needs physical rehabilitation Patient seen seen case reviewed with Dr. alvarez Medication Compliance: Yes Mental Status Exam Mental Status Exam Patient Appearance: Appropriate Patient Orientation: Person and Situation Level of Consciousness: Awake and Appropriate Patient Behavior: Guarded and Passive Mood Description: Withdrawn Affect Description: Constricted Patient Cognition Impaired: Yes Ability to Follow Directions: Good Speech Pattern: Clear Hallucinations: None Delusions: Not Present Thought Process: Distracted, Evasive and Slowed Thinking Thought Content: positive for [place] and positive for Poverty of Content Judgement: Fair Diagnostics Vital Signs (24Hr): Vital Signs - 24 hr 09/29/23 18:00 09/30/23 09:30 09/30/23 14:20 Temperature 97.6 F 97.9 F Pulse Rate 77 74 74 Respiratory Rate 17 18 Blood Pressure 148/64 H 140/70 H 140/72 H Pulse Oximetry 96 96 Oxygen Delivery Method Room Air Room Air BMI result Body Mass Index 19.4 Labs 09/29/23 07:53 Labs: Laboratory Results - last 48 hr 09/29/23 07:53 Sodium 144 Potassium 4.0 Chloride 105 Carbon Dioxide 31 H Anion Gap 12 BUN 14 Creatinine 0.76 Estim Creat Clear Calc 48.5 Estimated GFR > 60 Fasting Glucose 133 H Calcium 10.6 H D Total Bilirubin 0.3 AST 96 H ALT 178 H Alkaline Phosphatase 129 H Total Protein 6.2 L Albumin 3.4 L Triglycerides 131 Cholesterol 208 H LDL Cholesterol, Calc 140 H HDL Cholesterol 42 Medications Medications Current Medications Acetaminophen (Acetaminophen 325 Mg Tablet) 650 mg PO Q4H PRN PRN Reason: Pain, Severe (Pain Scale 7-10) Last Admin: 09/29/23 20:05 Dose: 650 mg Al Hydroxide/Mg Hydroxide (Magnesium Hydrox/Alum Hydrox 30 Ml Oral.Susp) 30 ml PO Q6H PRN PRN Reason: Heartburn/Nausea Al Hydroxide/Mg Hydroxide (Magnesium Hydrox/Alum Hydrox 30 Ml Oral.Susp) 30 ml PO Q6H PRN PRN Reason: Heartburn/Nausea Amlodipine Besylate (Amlodipine Besylate 10 Mg Tablet) 10 mg PO DAILY [facility]; Protocol Last Admin: 09/30/23 09:58 Dose: 10 mg Ascorbic Acid (Ascorbic Acid 500 Mg Tablet) 2,000 mg PO BEDTIME [facility] Last Admin: 09/29/23 20:05 Dose: 2,000 mg Fluticasone Propionate (Fluticasone Propionate Nasal 16 Gm Mayflower) 1 spray NOSTRIL-B BID [facility] Last Admin: 09/30/23 10:00 Dose: 1 spray Hydroxyzine HCl (Hydroxyzine Hcl 25 Mg Tablet) 25 mg PO Q6H PRN PRN Reason: Anxiety Last Admin: 09/28/23 23:49 Dose: 25 mg Lisinopril (Lisinopril 5 Mg Tablet) 15 mg PO DAILY [facility]; Protocol Last Admin: 09/30/23 09:58 Dose: 15 mg Lorazepam (Lorazepam 0.5 Mg Tablet) 0.5 mg PO Q4H PRN PRN Reason: Anxiety Magnesium Hydroxide (Milk Of Magnesia 30 Ml Oral.Susp) 30 ml PO DAILY PRN PRN Reason: Constipation Magnesium Hydroxide (Milk Of Magnesia 30 Ml Oral.Susp) 30 ml PO DAILY PRN PRN Reason: Constipation Melatonin (Melatonin 3 Mg Tablet) 6 mg PO BEDTIME PRN PRN Reason: Insomnia Last Admin: 09/28/23 21:16 Dose: 6 mg Multivitamins/Vitamin C (Multivitamin Tablet) 1 tab PO DAILY [facility] Last Admin: 09/30/23 09:58 Dose: 1 tab Omeprazole (Omeprazole 20 Mg Capsule.Dr) 20 mg PO DAILY@0630 [facility] Last Admin: 09/30/23 05:54 Dose: 20 mg Ondansetron HCl (Ondansetron Hcl 4 Mg/2 Ml Vial) 4 mg IVPUSH Q8H PRN PRN Reason: Nausea and Vomiting Propranolol HCl (Propranolol Hcl 20 Mg Tablet) 20 mg PO TID [facility]; Protocol Last Admin: 09/30/23 14:31 Dose: 20 mg Risperidone (Risperidone 0.25 Mg Tablet) 0.25 mg PO BID [facility] Last Admin: 09/30/23 09:58 Dose: 0.25 mg Tamsulosin HCl (Tamsulosin Hcl 0.4 Mg Capsule) 0.4 mg PO DAILY [facility] Last Admin: 09/30/23 09:58 Dose: 0.4 mg Vortioxetine (Vortioxetine Hydrobromide 5 Mg Tablet) 5 mg PO DAILY [facility] Last Admin: 09/30/23 09:58 Dose: 5 mg Allergies Allergies Allergy/AdvReac Type Severity Reaction Status Date / Time No Known Allergies Allergy Verified 08/27/23 10:27 Assessment & Plan Assessment & Plan (1) Bipolar II disorder: Status: Inactive Code(s): F31.81 - Bipolar II disorder (2) Delirium: Status: Acute Code(s): R41.0 - Disorientation, unspecified Plan The patient is an elderly female with a past history of mood disorder, anxiety personality disorder NOS who was brought into the hospital for altered mental status after a short course of as provide of for depression. 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 After being medically cleared she was transferring to this facility for psychiatric stabilization. Plan 1. Gather collateral information. 2. Continue Risperdal and antidepressants as started the medicine. 3. Regular blood work and reassessment with results. 4. 15 minute checks. 5. Speech and swallow evaluation for possible change of diet. 09/30/23 add wellbutrin 75 mg non serotonergic trintellix 5 mg remains with some PI but improved encourage phys rehab Patient educated on: diagnosis and medication risk/benefits Informed Consent: further education needed Reason for continued inpatient stay Substantial Risk for: harm to self, inability to function and rapid decompensation Time Spent With Patient Time: Total time managing care of this patient today _30___ minutes.
[2023-09-30 18:00] VITALS: BP 145/68; PULSE 66; RESP 17; TEMP 36.5; O2SAT 94
[2023-09-30] MEDS: Ascorbic Acid 500 MG TABLET 2000 MG PO (20:10)
[2023-09-30] MEDS: buPROPion HCL 75 MG TABLET PO (20:11)
[2023-10-01 02:30] VITALS: BP 137/92; PULSE 88
[2023-10-01] MEDS: Omeprazole 20 MG CAPSULE.DR PO (05:36)
[2023-10-01 07:00] VITALS: BMI 19.3
[2023-10-01 08:00] VITALS: BP 104/58; PULSE 78; RESP 18; TEMP 36.7; O2SAT 98
[2023-10-01] MEDS: Fluticasone Propionate Nasal 16 GM SPRAY 1 SPRAY NOSTRIL-B ×2 (09:05→20:37)
[2023-10-01] MEDS: risperiDONE 0.25 MG TABLET PO ×2 (09:05→20:46)
[2023-10-01] MEDS: Multivitamin TABLET 1 TAB PO (09:08)
[2023-10-01] MEDS: Vortioxetine Hydrobromide 5 MG TABLET PO (09:08)
[2023-10-01] MEDS: Tamsulosin HCL 0.4 MG CAPSULE PO (09:08)
[2023-10-01 11:20] VITALS: BP 104/58; PULSE 78; O2SAT 98
--- NOTE | 2023-10-01 14:01 | MHC.SLORD ---
Speech Language Pathology Order Status: Patient now in [facility]. Attempted to see patient today after lunch, patient was sleeping. Per [employer] TEACHER ASSISTANT who works with patient, patient is eating, often very slowly and carefully, although at time protests occasionally that she can't. Noted to staff that MBSS study completed by ATHLETIC EVENTS SCORER approximately 1 month ago documented patient can safely swallow up to advanced consistencies, however continues to elect purees. MD has requested ATHLETIC EVENTS SCORER continue with patient, ATHLETIC EVENTS SCORER will periodically check in with staff re-patient toleration of diet and any indication of willingness to advance.
[2023-10-01] MEDS: Propranolol HCL 20 MG TABLET PO (14:49)
[2023-10-01 18:00] VITALS: BP 149/69; PULSE 67; RESP 18; TEMP 36.1; O2SAT 95
--- NOTE | 2023-10-01 20:07 | HO.PSYCHPN ---
Subjective Subjective Date of Service: 10/01/23 Reason For Visit: Severe depression Subjective Notes: Conditional Voluntary Interim History: pt has been less flat today more active olivo range of affect no si anxiety about weakness in her hands some st memory problems Medication Compliance: Yes Attending Groups: Yes Review of Systems weakness fatigue eating better improved ambulation Mental Status Exam Mental Status Exam Patient Appearance: Appropriate Patient Orientation: Person, Place and Situation Level of Consciousness: Awake and Appropriate Patient Behavior: Appropriate Mood Description: Withdrawn Affect Description: Constricted Ability to Follow Directions: Good Speech Pattern: Clear Hallucinations: None Delusions: Not Present Thought Process: Rumination Thought Content: positive for [place], positive for Preoccupation, positive for Logical, negative for Suicidal Ideation or negative for Homicidal Ideation Depressive Symptoms: Increased Anxiety Judgement: Fair Judgement and Insight: concerns re her physical health needs much reassurance no current pi Diagnostics Vital Signs (24Hr): Vital Signs - 24 hr 10/01/23 02:30 10/01/23 08:00 10/01/23 11:20 Temperature 98.1 F Pulse Rate 88 78 78 Respiratory Rate 18 Blood Pressure 137/92 H 104/58 L 104/58 L Pulse Oximetry 98 98 Oxygen Delivery Method Room Air BMI result Body Mass Index 19.3 Labs 09/29/23 07:53 Imaging Radiology Impressions: Medications Medications Current Medications Acetaminophen (Acetaminophen 325 Mg Tablet) 650 mg PO Q4H PRN PRN Reason: Pain, Severe (Pain Scale 7-10) Last Admin: 09/29/23 20:05 Dose: 650 mg Al Hydroxide/Mg Hydroxide (Magnesium Hydrox/Alum Hydrox 30 Ml Oral.Susp) 30 ml PO Q6H PRN PRN Reason: Heartburn/Nausea Amlodipine Besylate (Amlodipine Besylate 10 Mg Tablet) 10 mg PO DAILY [facility]; Protocol Last Admin: 10/01/23 09:09 Dose: Not Given Ascorbic Acid (Ascorbic Acid 500 Mg Tablet) 2,000 mg PO BEDTIME [facility] Last Admin: 09/30/23 20:10 Dose: 2,000 mg Bupropion HCl (Bupropion Hcl 75 Mg Tablet) 75 mg PO DAILY [facility] Last Admin: 09/30/23 20:11 Dose: 75 mg Fluticasone Propionate (Fluticasone Propionate Nasal 16 Gm [place]) 1 spray NOSTRIL-B BID [facility] Last Admin: 10/01/23 09:05 Dose: 1 spray Hydroxyzine HCl (Hydroxyzine Hcl 25 Mg Tablet) 25 mg PO Q6H PRN PRN Reason: Anxiety Last Admin: 09/28/23 23:49 Dose: 25 mg Lisinopril (Lisinopril 5 Mg Tablet) 15 mg PO DAILY [facility]; Protocol Last Admin: 10/01/23 09:09 Dose: Not Given Lorazepam (Lorazepam 0.5 Mg Tablet) 0.5 mg PO Q4H PRN PRN Reason: Anxiety Magnesium Hydroxide (Milk Of Magnesia 30 Ml Oral.Susp) 30 ml PO DAILY PRN PRN Reason: Constipation Magnesium Hydroxide (Milk Of Magnesia 30 Ml Oral.Susp) 30 ml PO DAILY PRN PRN Reason: Constipation Melatonin (Melatonin 3 Mg Tablet) 6 mg PO BEDTIME PRN PRN Reason: Insomnia Last Admin: 09/28/23 21:16 Dose: 6 mg Multivitamins/Vitamin C (Multivitamin Tablet) 1 tab PO DAILY [facility] Last Admin: 10/01/23 09:08 Dose: 1 tab Omeprazole (Omeprazole 20 Mg Capsule.Dr) 20 mg PO DAILY@0630 [facility] Last Admin: 10/01/23 05:36 Dose: 20 mg Ondansetron HCl (Ondansetron Hcl 4 Mg/2 Ml Vial) 4 mg IVPUSH Q8H PRN PRN Reason: Nausea and Vomiting Propranolol HCl (Propranolol Hcl 10 Mg Tablet) 10 mg PO TID [facility]; Protocol Risperidone (Risperidone 0.25 Mg Tablet) 0.25 mg PO BID [facility] Last Admin: 10/01/23 09:05 Dose: 0.25 mg Tamsulosin HCl (Tamsulosin Hcl 0.4 Mg Capsule) 0.4 mg PO DAILY [facility] Last Admin: 10/01/23 09:08 Dose: 0.4 mg Vortioxetine (Vortioxetine Hydrobromide 5 Mg Tablet) 5 mg PO DAILY [facility] Last Admin: 10/01/23 09:08 Dose: 5 mg Allergies Allergies Allergy/AdvReac Type Severity Reaction Status Date / Time No Known Allergies Allergy Verified 08/27/23 10:27 Assessment & Plan Assessment & Plan (1) Bipolar II disorder: Status: Inactive Code(s): F31.81 - Bipolar II disorder (2) Delirium: Status: Acute Code(s): R41.0 - Disorientation, unspecified Plan The patient is an elderly female with a past history of mood disorder, anxiety personality disorder NOS who was brought into the hospital for altered mental status after a short course of as provide of for depression. 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 After being medically cleared she was transferring to this facility for psychiatric stabilization. Plan 1. Gather collateral information. 2. Continue Risperdal and antidepressants as started the medicine. 3. Regular blood work and reassessment with results. 4. 15 minute checks. 5. Speech and swallow evaluation for possible change of diet. 09/30/23 add wellbutrin 75 mg non serotonergic trintellix 5 mg remains with some PI but improved encourage phys rehab 10/01/23 Patient shows improved mood and energy ambulating better more active. Concerns regarding her short-term memory remembering names and fears regarding strength in her has which do seem somewhat bilaterally diminished and some numbness tingling seems to be improving cont trintellix wellbutrin Reason for continued inpatient stay Substantial Risk for: inability to function and rapid decompensation Time Spent With Patient Time: Total time managing care of this patient today ____ minutes.
[2023-10-01] MEDS: Ascorbic Acid 500 MG TABLET 2000 MG PO (20:37)
[2023-10-01] MEDS: Propranolol HCL 10 MG TABLET PO (20:38)
[2023-10-01] MEDS: LORazepam 0.5 MG TABLET PO (20:39)
[2023-10-01] MEDS: Melatonin 3 MG TABLET 6 MG PO (20:39)
[2023-10-02] MEDS: Omeprazole 20 MG CAPSULE.DR PO (05:55)
[2023-10-02 08:00] VITALS: BP 129/77; PULSE 97; RESP 18; TEMP 36.2; O2SAT 94
[2023-10-02] MEDS: Propranolol HCL 10 MG TABLET PO ×3 (08:15→20:18)
[2023-10-02] MEDS: lisinopriL 5 MG TABLET 15 MG PO (08:15)
[2023-10-02] MEDS: Vortioxetine Hydrobromide 5 MG TABLET PO (08:16)
[2023-10-02] MEDS: Multivitamin TABLET 1 TAB PO (08:16)
[2023-10-02] MEDS: amLODIPine Besylate 10 MG TABLET PO (08:16)
[2023-10-02] MEDS: buPROPion HCL 75 MG TABLET PO (08:16)
[2023-10-02] MEDS: risperiDONE 0.25 MG TABLET PO ×2 (08:16→20:18)
[2023-10-02] MEDS: Tamsulosin HCL 0.4 MG CAPSULE PO (08:16)
[2023-10-02] MEDS: Fluticasone Propionate Nasal 16 GM SPRAY 1 SPRAY NOSTRIL-B (08:20)
[2023-10-02] MEDS: Acetaminophen 325 MG TABLET 650 MG PO (13:23)
[2023-10-02 13:30] VITALS: BP 128/62; PULSE 71; RESP 16; TEMP 36.6; O2SAT 98
--- NOTE | 2023-10-02 13:39 | PC.NURSE ---
pt reports she slid out of chair onto the floor in milieu at 10:00 AM. VSS, neuro's wnl, provider and notified, no injurys noted. At 1330 pt slid onto floor in her room near bed. no injuries noted, neuros WNL, VSS, and provider notified.
[2023-10-02 13:40] VITALS: BP 121/57; PULSE 88
--- NOTE | 2023-10-02 13:51 | PC.NURSE ---
pt slid out of bed onto floor at 1330, neuro q4hr until tommorow, not while sleeping. provider, and notified. no injures noted. orthos wnl, will continue to monitor and assess.
[2023-10-02 14:38] VITALS: BP 168/69; PULSE 76; RESP 18
[2023-10-02 18:00] VITALS: BP 113/73; PULSE 92; RESP 18; TEMP 36.4; O2SAT 95
[2023-10-02] MEDS: Melatonin 3 MG TABLET 6 MG PO (20:18)
[2023-10-02] MEDS: LORazepam 0.5 MG TABLET PO (20:18)
[2023-10-02] MEDS: Ascorbic Acid 500 MG TABLET 2000 MG PO (20:18)
--- NOTE | 2023-10-02 22:52 | P.PNPSI_ITS ---
Subjective Subjective Date of Service: 10/02/23 Reason For Visit: Severe depression Subjective Notes: Conditional Voluntary Guardianship: No Medical Problems Affecting Mental Status: Yes (Recent delirium) Interim History: Patient seen psychiatric follow-up. Seen less depressed reportedly this morning more active had question behavioral event in which she slid out of a chair may been related to wearing socks which were slippery no vital signs changes no orthostatic changes. Patient has again become suspicious of staff thinking they are trying to mess with her in someway and deprive her Difficulty with change in rooms Medication Compliance: Yes Attending Groups: Yes Mental Status Exam Mental Status Exam Narrative: Anxious looking in appearance looking away Patient Orientation: Person, Place and Situation Level of Consciousness: Awake and Appropriate Patient Behavior: Appropriate and Poor Eye Contact Mood Description: Withdrawn and Depressed Affect Description: Constricted, Depressed and Apprehensive Ability to Follow Directions: Fair Speech Pattern: Clear Memory Description: Recent Impaired and Working Impaired Hallucinations: None Delusions: Paranoid Ideation Thought Process: Rumination Thought Content: positive for [place], positive for Preoccupation, negative for Suicidal Ideation or negative for Homicidal Ideation Depressive Symptoms: Increased Anxiety and Hopelessness Judgement: Fair Judgement and Insight: concerns that staff is somehow intentionally messing with her. Difficulty with trust some slowed mentation difficulty processing material earlier in the day reportedly had been doing better Diagnostics Vital Signs (24Hr): Vital Signs - 24 hr 10/02/23 08:00 10/02/23 13:30 10/02/23 13:40 Temperature 97.1 F 98 F Pulse Rate 97 71 88 Respiratory Rate 18 16 Blood Pressure 129/77 128/62 121/57 L Pulse Oximetry 94 98 Oxygen Delivery Method Room Air Room Air 10/02/23 14:38 Temperature Pulse Rate 76 Respiratory Rate 18 Blood Pressure 168/69 H Pulse Oximetry Oxygen Delivery Method BMI result Body Mass Index 19.3 Labs 09/29/23 07:53 Medications Medications Current Medications Acetaminophen (Acetaminophen 325 Mg Tablet) 650 mg PO Q4H PRN PRN Reason: Pain, Severe (Pain Scale 7-10) Last Admin: 10/02/23 13:23 Dose: 650 mg Al Hydroxide/Mg Hydroxide (Magnesium Hydrox/Alum Hydrox 30 Ml Oral.Susp) 30 ml PO Q6H PRN PRN Reason: Heartburn/Nausea Amlodipine Besylate (Amlodipine Besylate 10 Mg Tablet) 10 mg PO DAILY [facility]; Protocol Last Admin: 10/02/23 08:16 Dose: 10 mg Ascorbic Acid (Ascorbic Acid 500 Mg Tablet) 2,000 mg PO BEDTIME [facility] Last Admin: 10/02/23 20:18 Dose: 2,000 mg Bupropion HCl (Bupropion Hcl 75 Mg Tablet) 75 mg PO DAILY [facility] Last Admin: 10/02/23 08:16 Dose: 75 mg Fluticasone Propionate (Fluticasone Propionate Nasal 16 Gm [place]) 1 spray NOSTRIL-B BID [facility] Last Admin: 10/02/23 20:19 Dose: Not Given Hydroxyzine HCl (Hydroxyzine Hcl 25 Mg Tablet) 25 mg PO Q6H PRN PRN Reason: Anxiety Last Admin: 09/28/23 23:49 Dose: 25 mg Lisinopril (Lisinopril 5 Mg Tablet) 15 mg PO DAILY [facility]; Protocol Last Admin: 10/02/23 08:15 Dose: 15 mg Lorazepam (Lorazepam 0.5 Mg Tablet) 0.5 mg PO Q4H PRN PRN Reason: Anxiety Last Admin: 10/02/23 20:18 Dose: 0.5 mg Magnesium Hydroxide (Milk Of Magnesia 30 Ml Oral.Susp) 30 ml PO DAILY PRN PRN Reason: Constipation Magnesium Hydroxide (Milk Of Magnesia 30 Ml Oral.Susp) 30 ml PO DAILY PRN PRN Reason: Constipation Melatonin (Melatonin 3 Mg Tablet) 6 mg PO BEDTIME PRN PRN Reason: Insomnia Last Admin: 10/02/23 20:18 Dose: 6 mg Multivitamins/Vitamin C (Multivitamin Tablet) 1 tab PO DAILY [facility] Last Admin: 10/02/23 08:16 Dose: 1 tab Omeprazole (Omeprazole 20 Mg Capsule.Dr) 20 mg PO DAILY@0630 [facility] Last Admin: 10/02/23 05:55 Dose: 20 mg Ondansetron HCl (Ondansetron Hcl 4 Mg/2 Ml Vial) 4 mg IVPUSH Q8H PRN PRN Reason: Nausea and Vomiting Propranolol HCl (Propranolol Hcl 10 Mg Tablet) 10 mg PO TID [facility]; Protocol Last Admin: 10/02/23 20:18 Dose: 10 mg Risperidone (Risperidone 0.25 Mg Tablet) 0.5 mg PO BEDTIME [facility] Risperidone (Risperidone 0.25 Mg Tablet) 0.25 mg PO DAILY [facility] Tamsulosin HCl (Tamsulosin Hcl 0.4 Mg Capsule) 0.4 mg PO DAILY [facility] Last Admin: 10/02/23 08:16 Dose: 0.4 mg Vortioxetine (Vortioxetine Hydrobromide 5 Mg Tablet) 5 mg PO DAILY [facility] Last Admin: 10/02/23 08:16 Dose: 5 mg Allergies Allergies Allergy/AdvReac Type Severity Reaction Status Date / Time No Known Allergies Allergy Verified 08/27/23 10:27 Assessment & Plan Assessment & Plan (1) Bipolar II disorder: Status: Inactive Code(s): F31.81 - Bipolar II disorder (2) Delirium: Status: Acute Code(s): R41.0 - Disorientation, unspecified Plan The patient is an elderly female with a past history of mood disorder, anxiety personality disorder NOS who was brought into the hospital for altered mental status after a short course of as provide of for depression. 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 After being medically cleared she was transferring to this facility for psychiatric stabilization. Plan 1. Gather collateral information. 2. Continue Risperdal and antidepressants as started the medicine. 3. Regular blood work and reassessment with results. 4. 15 minute checks. 5. Speech and swallow evaluation for possible change of diet. 09/30/23 add wellbutrin 75 mg non serotonergic trintellix 5 mg remains with some PI but improved encourage phys rehab 10/01/23 Patient shows improved mood and energy ambulating better more active. Concerns regarding her short-term memory remembering names and fears regarding strength in her has which do seem somewhat bilaterally diminished and some numbness tingling seems to be improving cont trintellix wellbutrin 10/02/2023 Patient generally trending upwards generally less depressed but complicated by periods of paranoia and then apprehension depression and despair feels like she can trust staff and somehow they are intentionally playing with her in some way denies self-harm Recent confusional episode lasting a number of weeks question all serotonergic syndrome delirium question related to S ketamine Encourage out of bed ambulation PT consult increase in Risperdal had recently been on Latuda Vraylar and Rexulti without clear benefit would maintain current low-dose Trintellix 5 mg Wellbutrin recently started 75 mg Reason for continued inpatient stay Substantial Risk for: harm to self, inability to function and rapid decompensation Time Spent With Patient Time: Total time managing care of this patient today ____ minutes.
[2023-10-03] MEDS: Omeprazole 20 MG CAPSULE.DR PO (06:14)
[2023-10-03 08:05] VITALS: BP 126/62; PULSE 84; RESP 16; TEMP 36.5; O2SAT 96
[2023-10-03] MEDS: buPROPion HCL 75 MG TABLET PO (08:59)
[2023-10-03] MEDS: Multivitamin TABLET 1 TAB PO (08:59)
[2023-10-03] MEDS: Vortioxetine Hydrobromide 5 MG TABLET PO (08:59)
[2023-10-03] MEDS: lisinopriL 5 MG TABLET 15 MG PO (08:59)
[2023-10-03] MEDS: risperiDONE 0.25 MG TABLET PO (08:59)
[2023-10-03] MEDS: amLODIPine Besylate 10 MG TABLET PO (09:00)
[2023-10-03] MEDS: Fluticasone Propionate Nasal 16 GM SPRAY 1 SPRAY NOSTRIL-B ×2 (09:00→20:37)
[2023-10-03] MEDS: Tamsulosin HCL 0.4 MG CAPSULE PO (09:00)
[2023-10-03] MEDS: Propranolol HCL 10 MG TABLET PO ×3 (09:00→20:35)
[2023-10-03 15:19] VITALS: BP 125/62; PULSE 90
--- NOTE | 2023-10-03 17:08 | HO.PSYCHPN ---
Subjective Subjective Date of Service: 10/03/23 Reason For Visit: Severe depression Interim History: Patient seen psychiatric follow-up.She reports she is feeling depressed. She is somewhat anxious. She denies SI. She is sleeping well. Review of Systems Review of Systems Yes all other systems are reviewed and are negative Mental Status Exam Mental Status Exam Narrative: Anxious looking in appearance looking away Patient Appearance: Appropriate Patient Orientation: Person, Place and Situation Level of Consciousness: Awake and Appropriate Patient Behavior: Appropriate and Poor Eye Contact Mood Description: Withdrawn and Depressed Affect Description: Constricted, Depressed and Apprehensive Patient Cognition Impaired: Yes Ability to Follow Directions: Fair Speech Pattern: Clear Memory Description: Recent Impaired and Working Impaired Diagnostics Vital Signs (24Hr): Vital Signs - 24 hr 10/02/23 18:00 10/03/23 08:05 10/03/23 15:19 Temperature 97.6 F 97.7 F Pulse Rate 92 84 90 Respiratory Rate 18 16 Blood Pressure 113/73 126/62 125/62 Pulse Oximetry 95 96 Oxygen Delivery Method Room Air Room Air BMI result Body Mass Index 19.3 Labs 09/29/23 07:53 Medications Medications Current Medications Acetaminophen (Acetaminophen 325 Mg Tablet) 650 mg PO Q4H PRN PRN Reason: Pain, Severe (Pain Scale 7-10) Last Admin: 10/02/23 13:23 Dose: 650 mg Al Hydroxide/Mg Hydroxide (Magnesium Hydrox/Alum Hydrox 30 Ml Oral.Susp) 30 ml PO Q6H PRN PRN Reason: Heartburn/Nausea Amlodipine Besylate (Amlodipine Besylate 10 Mg Tablet) 10 mg PO DAILY [facility]; Protocol Last Admin: 10/03/23 09:00 Dose: 10 mg Ascorbic Acid (Ascorbic Acid 500 Mg Tablet) 2,000 mg PO BEDTIME [facility] Last Admin: 10/02/23 20:18 Dose: 2,000 mg Bupropion HCl (Bupropion Hcl 75 Mg Tablet) 75 mg PO DAILY [facility] Last Admin: 10/03/23 08:59 Dose: 75 mg Fluticasone Propionate (Fluticasone Propionate Nasal 16 Gm [place]) 1 spray NOSTRIL-B BID [facility] Last Admin: 10/03/23 09:00 Dose: 1 spray Hydroxyzine HCl (Hydroxyzine Hcl 25 Mg Tablet) 25 mg PO Q6H PRN PRN Reason: Anxiety Last Admin: 09/28/23 23:49 Dose: 25 mg Lisinopril (Lisinopril 5 Mg Tablet) 15 mg PO DAILY [facility]; Protocol Last Admin: 10/03/23 08:59 Dose: 15 mg Magnesium Hydroxide (Milk Of Magnesia 30 Ml Oral.Susp) 30 ml PO DAILY PRN PRN Reason: Constipation Magnesium Hydroxide (Milk Of Magnesia 30 Ml Oral.Susp) 30 ml PO DAILY PRN PRN Reason: Constipation Melatonin (Melatonin 3 Mg Tablet) 6 mg PO BEDTIME PRN PRN Reason: Insomnia Last Admin: 10/02/23 20:18 Dose: 6 mg Multivitamins/Vitamin C (Multivitamin Tablet) 1 tab PO DAILY [facility] Last Admin: 10/03/23 08:59 Dose: 1 tab Omeprazole (Omeprazole 20 Mg Capsule.Dr) 20 mg PO DAILY@0630 [facility] Last Admin: 10/03/23 06:14 Dose: 20 mg Ondansetron HCl (Ondansetron Hcl 4 Mg/2 Ml Vial) 4 mg IVPUSH Q8H PRN PRN Reason: Nausea and Vomiting Propranolol HCl (Propranolol Hcl 10 Mg Tablet) 10 mg PO TID [facility]; Protocol Last Admin: 10/03/23 14:50 Dose: 10 mg Risperidone (Risperidone 0.25 Mg Tablet) 0.5 mg PO BEDTIME [facility] Risperidone (Risperidone 0.25 Mg Tablet) 0.25 mg PO DAILY [facility] Last Admin: 10/03/23 08:59 Dose: 0.25 mg Tamsulosin HCl (Tamsulosin Hcl 0.4 Mg Capsule) 0.4 mg PO DAILY [facility] Last Admin: 10/03/23 09:00 Dose: 0.4 mg Vortioxetine (Vortioxetine Hydrobromide 5 Mg Tablet) 5 mg PO DAILY [facility] Last Admin: 10/03/23 08:59 Dose: 5 mg Allergies Allergies Allergy/AdvReac Type Severity Reaction Status Date / Time No Known Allergies Allergy Verified 08/27/23 10:27 Assessment & Plan Assessment & Plan (1) Bipolar II disorder: Status: Inactive Code(s): F31.81 - Bipolar II disorder (2) Delirium: Status: Acute Code(s): R41.0 - Disorientation, unspecified Plan The patient is an elderly female with a past history of mood disorder, anxiety personality disorder NOS who was brought into the hospital for altered mental status after a short course of as provide of for depression. 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 After being medically cleared she was transferring to this facility for psychiatric stabilization. Plan 1. Gather collateral information. 2. Continue Risperdal and antidepressants as started the medicine. 3. Regular blood work and reassessment with results. 4. 15 minute checks. 5. Speech and swallow evaluation for possible change of diet. 09/30/23 add wellbutrin 75 mg non serotonergic trintellix 5 mg remains with some PI but improved encourage phys rehab 10/01/23 Patient shows improved mood and energy ambulating better more active. Concerns regarding her short-term memory remembering names and fears regarding strength in her has which do seem somewhat bilaterally diminished and some numbness tingling seems to be improving cont trintellix wellbutrin 10/02/2023 Patient generally trending upwards generally less depressed but complicated by periods of paranoia and then apprehension depression and despair feels like she can trust staff and somehow they are intentionally playing with her in some way denies self-harm Recent confusional episode lasting a number of weeks question all serotonergic syndrome delirium question related to S ketamine Encourage out of bed ambulation PT consult increase in Risperdal had recently been on Latuda Vraylar and Rexulti without clear benefit would maintain current low-dose Trintellix 5 mg Wellbutrin recently started 75 mg 10/03: Continue current management and treatment plan. Reason for continued inpatient stay Substantial Risk for: harm to self, inability to function and rapid decompensation Time Spent With Patient Time: Total time managing care of this patient today ____ minutes.
[2023-10-03 19:35] VITALS: BP 115/56; PULSE 73; RESP 16; TEMP 36.4; O2SAT 93
[2023-10-03] MEDS: risperiDONE 0.25 MG TABLET 0.5 MG PO (20:35)
[2023-10-03] MEDS: Ascorbic Acid 500 MG TABLET 2000 MG PO (20:35)
[2023-10-04 06:00] VITALS: BP 123/60; PULSE 84; RESP 16; TEMP 36.3; O2SAT 95
[2023-10-04] MEDS: Omeprazole 20 MG CAPSULE.DR PO (06:06)
[2023-10-04] MEDS: Multivitamin TABLET 1 TAB PO (08:48)
[2023-10-04] MEDS: buPROPion HCL 75 MG TABLET PO (08:48)
[2023-10-04] MEDS: Propranolol HCL 10 MG TABLET PO ×3 (08:48→20:40)
[2023-10-04] MEDS: amLODIPine Besylate 10 MG TABLET PO (08:48)
[2023-10-04] MEDS: risperiDONE 0.25 MG TABLET PO (08:48)
[2023-10-04] MEDS: lisinopriL 5 MG TABLET 15 MG PO (08:48)
[2023-10-04] MEDS: hydrOXYzine HCL 25 MG TABLET PO (08:48)
[2023-10-04] MEDS: Tamsulosin HCL 0.4 MG CAPSULE PO (08:49)
[2023-10-04] MEDS: Vortioxetine Hydrobromide 5 MG TABLET PO (08:49)
[2023-10-04 15:48] VITALS: BP 152/70; PULSE 65
--- NOTE | 2023-10-04 16:00 | HO.PSYCHPN ---
Subjective Subjective Date of Service: 10/04/23 Reason For Visit: Severe depression Interim History: Patient seen psychiatric follow-up.She reports she is feeling depressed. She is anxious. She denies SI. She is sleeping well. She is alert and not confused. She is tolerating Trintellix well. Review of Systems Review of Systems Yes all other systems are reviewed and are negative Mental Status Exam Mental Status Exam Narrative: Anxious looking in appearance looking away Patient Appearance: Appropriate Patient Orientation: Person, Place and Situation Level of Consciousness: Awake and Appropriate Patient Behavior: Appropriate and Poor Eye Contact Mood Description: Withdrawn and Depressed Affect Description: Constricted, Depressed and Apprehensive Patient Cognition Impaired: Yes Ability to Follow Directions: Fair Speech Pattern: Clear Memory Description: Recent Impaired and Working Impaired Diagnostics Vital Signs (24Hr): Vital Signs - 24 hr 10/03/23 19:35 10/04/23 06:00 Temperature 97.5 F 97.3 F Pulse Rate 73 84 Respiratory Rate 16 16 Blood Pressure 115/56 L 123/60 Pulse Oximetry 93 95 Oxygen Delivery Method Room Air Room Air BMI result Body Mass Index 19.3 Labs 09/29/23 07:53 Medications Medications Current Medications Acetaminophen (Acetaminophen 325 Mg Tablet) 650 mg PO Q4H PRN PRN Reason: Pain, Severe (Pain Scale 7-10) Last Admin: 10/02/23 13:23 Dose: 650 mg Al Hydroxide/Mg Hydroxide (Magnesium Hydrox/Alum Hydrox 30 Ml Oral.Susp) 30 ml PO Q6H PRN PRN Reason: Heartburn/Nausea Amlodipine Besylate (Amlodipine Besylate 10 Mg Tablet) 10 mg PO DAILY [facility]; Protocol Last Admin: 10/04/23 08:48 Dose: 10 mg Ascorbic Acid (Ascorbic Acid 500 Mg Tablet) 2,000 mg PO BEDTIME [facility] Last Admin: 10/03/23 20:35 Dose: 2,000 mg Bupropion HCl (Bupropion Hcl 75 Mg Tablet) 75 mg PO DAILY [facility] Last Admin: 10/04/23 08:48 Dose: 75 mg Fluticasone Propionate (Fluticasone Propionate Nasal 16 Gm [place]) 1 spray NOSTRIL-B BID [facility] Last Admin: 10/04/23 08:52 Dose: Not Given Hydroxyzine HCl (Hydroxyzine Hcl 25 Mg Tablet) 25 mg PO Q6H PRN PRN Reason: Anxiety Last Admin: 10/04/23 08:48 Dose: 25 mg Lisinopril (Lisinopril 5 Mg Tablet) 15 mg PO DAILY [facility]; Protocol Last Admin: 10/04/23 08:48 Dose: 15 mg Lorazepam (Lorazepam 0.5 Mg Tablet) 0.5 mg PO Q4H PRN PRN Reason: Anxiety Magnesium Hydroxide (Milk Of Magnesia 30 Ml Oral.Susp) 30 ml PO DAILY PRN PRN Reason: Constipation Magnesium Hydroxide (Milk Of Magnesia 30 Ml Oral.Susp) 30 ml PO DAILY PRN PRN Reason: Constipation Melatonin (Melatonin 3 Mg Tablet) 6 mg PO BEDTIME PRN PRN Reason: Insomnia Last Admin: 10/02/23 20:18 Dose: 6 mg Multivitamins/Vitamin C (Multivitamin Tablet) 1 tab PO DAILY [facility] Last Admin: 10/04/23 08:48 Dose: 1 tab Omeprazole (Omeprazole 20 Mg Capsule.Dr) 20 mg PO DAILY@0630 [facility] Last Admin: 10/04/23 06:06 Dose: 20 mg Ondansetron HCl (Ondansetron Hcl 4 Mg/2 Ml Vial) 4 mg IVPUSH Q8H PRN PRN Reason: Nausea and Vomiting Propranolol HCl (Propranolol Hcl 10 Mg Tablet) 10 mg PO TID [facility]; Protocol Last Admin: 10/04/23 15:54 Dose: 10 mg Risperidone (Risperidone 0.25 Mg Tablet) 0.5 mg PO BEDTIME [facility] Last Admin: 10/03/23 20:35 Dose: 0.5 mg Risperidone (Risperidone 0.25 Mg Tablet) 0.25 mg PO DAILY [facility] Last Admin: 10/04/23 08:48 Dose: 0.25 mg Tamsulosin HCl (Tamsulosin Hcl 0.4 Mg Capsule) 0.4 mg PO DAILY [facility] Last Admin: 10/04/23 08:49 Dose: 0.4 mg Vortioxetine (Vortioxetine Hydrobromide 5 Mg Tablet) 5 mg PO DAILY [facility] Last Admin: 10/04/23 08:49 Dose: 5 mg Allergies Allergies Allergy/AdvReac Type Severity Reaction Status Date / Time No Known Allergies Allergy Verified 08/27/23 10:27 Assessment & Plan Assessment & Plan (1) Bipolar II disorder: Status: Inactive Code(s): F31.81 - Bipolar II disorder (2) Delirium: Status: Acute Code(s): R41.0 - Disorientation, unspecified Plan The patient is an elderly female with a past history of mood disorder, anxiety personality disorder NOS who was brought into the hospital for altered mental status after a short course of as provide of for depression. 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 After being medically cleared she was transferring to this facility for psychiatric stabilization. Plan 1. Gather collateral information. 2. Continue Risperdal and antidepressants as started the medicine. 3. Regular blood work and reassessment with results. 4. 15 minute checks. 5. Speech and swallow evaluation for possible change of diet. 09/30/23 add wellbutrin 75 mg non serotonergic trintellix 5 mg remains with some PI but improved encourage phys rehab 10/01/23 Patient shows improved mood and energy ambulating better more active. Concerns regarding her short-term memory remembering names and fears regarding strength in her has which do seem somewhat bilaterally diminished and some numbness tingling seems to be improving cont trintellix wellbutrin 10/02/2023 Patient generally trending upwards generally less depressed but complicated by periods of paranoia and then apprehension depression and despair feels like she can trust staff and somehow they are intentionally playing with her in some way denies self-harm Recent confusional episode lasting a number of weeks question all serotonergic syndrome delirium question related to S ketamine Encourage out of bed ambulation PT consult increase in Risperdal had recently been on Latuda Vraylar and Rexulti without clear benefit would maintain current low-dose Trintellix 5 mg Wellbutrin recently started 75 mg 10/03: Continue current management and treatment plan. 10/04: Continue current management and treatment plan. Medication changes per primary team Dr. Shearer that knows the patient well. Reason for continued inpatient stay Substantial Risk for: inability to function, rapid decompensation and med/psych decompensation Time Spent With Patient Time: Total time managing care of this patient today ____ minutes.
[2023-10-04 18:00] VITALS: BP 125/61; PULSE 68; RESP 17; TEMP 36.3; O2SAT 94
[2023-10-04] MEDS: Ascorbic Acid 500 MG TABLET 2000 MG PO (20:39)
[2023-10-04] MEDS: Fluticasone Propionate Nasal 16 GM SPRAY 1 SPRAY NOSTRIL-B (20:39)
[2023-10-04] MEDS: risperiDONE 0.25 MG TABLET 0.5 MG PO (20:40)
[2023-10-05 06:00] VITALS: BP 152/71; PULSE 74; RESP 16; TEMP 36.2; O2SAT 94
[2023-10-05] MEDS: Omeprazole 20 MG CAPSULE.DR PO (06:18)
[2023-10-05] MEDS: buPROPion HCL 75 MG TABLET PO (09:05)
[2023-10-05] MEDS: Propranolol HCL 10 MG TABLET PO ×3 (09:05→20:05)
[2023-10-05] MEDS: risperiDONE 0.25 MG TABLET PO (09:05)
[2023-10-05] MEDS: Multivitamin TABLET 1 TAB PO (09:05)
[2023-10-05] MEDS: Vortioxetine Hydrobromide 5 MG TABLET PO (09:05)
[2023-10-05] MEDS: lisinopriL 5 MG TABLET 15 MG PO (09:05)
[2023-10-05] MEDS: amLODIPine Besylate 10 MG TABLET PO (09:05)
[2023-10-05] MEDS: Tamsulosin HCL 0.4 MG CAPSULE PO (09:05)
[2023-10-05 14:55] VITALS: BP 118/58; PULSE 70
[2023-10-05 18:00] VITALS: BP 137/65; PULSE 62; RESP 18; O2SAT 96
[2023-10-05] MEDS: risperiDONE 0.25 MG TABLET 0.5 MG PO (20:05)
[2023-10-05] MEDS: Ascorbic Acid 500 MG TABLET 2000 MG PO (20:05)
--- NOTE | 2023-10-05 22:22 | HO.PSYCHPN ---
Subjective Subjective Date of Service: 10/05/23 Reason For Visit: Severe depression Subjective Notes: Conditional Voluntary Interim History: Patient seen psychiatric follow-up patient is depressed hopeless helpless despondent difficulty tolerating how she is feeling remains depressed patient complains of numbness tingling in her hands feels out of sorts not right suspicious of others Medication Compliance: Yes Mental Status Exam Mental Status Exam Narrative: Anxious looking in appearance looking away Patient Appearance: Appropriate Patient Orientation: Person, Place and Situation Level of Consciousness: Awake and Appropriate Patient Behavior: Appropriate and Poor Eye Contact Mood Description: Withdrawn and Depressed Affect Description: Constricted, Depressed and Apprehensive Patient Cognition Impaired: Yes Ability to Follow Directions: Fair Speech Pattern: Clear Memory Description: Recent Impaired and Working Impaired Diagnostics Vital Signs (24Hr): Vital Signs - 24 hr 10/05/23 06:00 10/05/23 14:55 10/05/23 18:00 Temperature 97.2 F Pulse Rate 74 70 62 Respiratory Rate 16 18 Blood Pressure 152/71 H 118/58 L 137/65 Pulse Oximetry 94 96 Oxygen Delivery Method Room Air Room Air BMI result Body Mass Index 19.3 Labs 09/29/23 07:53 Medications Medications Current Medications Acetaminophen (Acetaminophen 325 Mg Tablet) 650 mg PO Q4H PRN PRN Reason: Pain, Severe (Pain Scale 7-10) Last Admin: 10/02/23 13:23 Dose: 650 mg Al Hydroxide/Mg Hydroxide (Magnesium Hydrox/Alum Hydrox 30 Ml Oral.Susp) 30 ml PO Q6H PRN PRN Reason: Heartburn/Nausea Amlodipine Besylate (Amlodipine Besylate 10 Mg Tablet) 10 mg PO DAILY [facility]; Protocol Last Admin: 10/05/23 09:05 Dose: 10 mg Ascorbic Acid (Ascorbic Acid 500 Mg Tablet) 2,000 mg PO BEDTIME [facility] Last Admin: 10/05/23 20:05 Dose: 2,000 mg Bupropion HCl (Bupropion Hcl 100 Mg Tablet) 100 mg PO DAILY [facility] Fluticasone Propionate (Fluticasone Propionate Nasal 16 Gm [place]) 1 spray NOSTRIL-B BID [facility] Last Admin: 10/05/23 20:06 Dose: Not Given Hydroxyzine HCl (Hydroxyzine Hcl 25 Mg Tablet) 25 mg PO Q6H PRN PRN Reason: Anxiety Last Admin: 10/04/23 08:48 Dose: 25 mg Lisinopril (Lisinopril 5 Mg Tablet) 15 mg PO DAILY [facility]; Protocol Last Admin: 10/05/23 09:05 Dose: 15 mg Lorazepam (Lorazepam 0.5 Mg Tablet) 0.5 mg PO Q4H PRN PRN Reason: Anxiety Magnesium Hydroxide (Milk Of Magnesia 30 Ml Oral.Susp) 30 ml PO DAILY PRN PRN Reason: Constipation Magnesium Hydroxide (Milk Of Magnesia 30 Ml Oral.Susp) 30 ml PO DAILY PRN PRN Reason: Constipation Melatonin (Melatonin 3 Mg Tablet) 6 mg PO BEDTIME PRN PRN Reason: Insomnia Last Admin: 10/02/23 20:18 Dose: 6 mg Multivitamins/Vitamin C (Multivitamin Tablet) 1 tab PO DAILY [facility] Last Admin: 10/05/23 09:05 Dose: 1 tab Omeprazole (Omeprazole 20 Mg Capsule.Dr) 20 mg PO DAILY@0630 [facility] Last Admin: 10/05/23 06:18 Dose: 20 mg Ondansetron HCl (Ondansetron Hcl 4 Mg/2 Ml Vial) 4 mg IVPUSH Q8H PRN PRN Reason: Nausea and Vomiting Propranolol HCl (Propranolol Hcl 10 Mg Tablet) 10 mg PO TID [facility]; Protocol Last Admin: 10/05/23 20:05 Dose: 10 mg Risperidone (Risperidone 0.25 Mg Tablet) 0.5 mg PO BEDTIME [facility] Last Admin: 10/05/23 20:05 Dose: 0.5 mg Risperidone (Risperidone 0.25 Mg Tablet) 0.5 mg PO DAILY [facility] Tamsulosin HCl (Tamsulosin Hcl 0.4 Mg Capsule) 0.4 mg PO DAILY [facility] Last Admin: 10/05/23 09:05 Dose: 0.4 mg Vortioxetine (Vortioxetine Hydrobromide 10 Mg Tablet) 10 mg PO DAILY [facility] Allergies Allergies Allergy/AdvReac Type Severity Reaction Status Date / Time No Known Allergies Allergy Verified 08/27/23 10:27 Assessment & Plan Assessment & Plan (1) Bipolar II disorder: Status: Inactive Code(s): F31.81 - Bipolar II disorder (2) Delirium: Status: Acute Code(s): R41.0 - Disorientation, unspecified Plan The patient is an elderly female with a past history of mood disorder, anxiety personality disorder NOS who was brought into the hospital for altered mental status after a short course of as provide of for depression. 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 After being medically cleared she was transferring to this facility for psychiatric stabilization. Plan 1. Gather collateral information. 2. Continue Risperdal and antidepressants as started the medicine. 3. Regular blood work and reassessment with results. 4. 15 minute checks. 5. Speech and swallow evaluation for possible change of diet. 09/30/23 add wellbutrin 75 mg non serotonergic trintellix 5 mg remains with some PI but improved encourage phys rehab 10/01/23 Patient shows improved mood and energy ambulating better more active. Concerns regarding her short-term memory remembering names and fears regarding strength in her has which do seem somewhat bilaterally diminished and some numbness tingling seems to be improving cont trintellix wellbutrin 10/02/2023 Patient generally trending upwards generally less depressed but complicated by periods of paranoia and then apprehension depression and despair feels like she can trust staff and somehow they are intentionally playing with her in some way denies self-harm Recent confusional episode lasting a number of weeks question all serotonergic syndrome delirium question related to S ketamine Encourage out of bed ambulation PT consult increase in Risperdal had recently been on Latuda Vraylar and Rexulti without clear benefit would maintain current low-dose Trintellix 5 mg Wellbutrin recently started 75 mg 10/03: Continue current management and treatment plan. 10/04: Continue current management and treatment plan. Medication changes per primary team Dr. Shearer that knows the patient well. 10/05/2023 Increase Trintellix to 10 mg increase Wellbutrin to 100 mg consider change Risperdal to olanzapine or Seroquel strongly consider ECT patient having difficulty with trust Reason for continued inpatient stay Substantial Risk for: harm to self, inability to function and rapid decompensation Time Spent With Patient Time: Total time managing care of this patient today ____ minutes.
[2023-10-06] MEDS: Omeprazole 20 MG CAPSULE.DR PO (06:03)
[2023-10-06 08:00] VITALS: BP 121/68; PULSE 104; RESP 18; TEMP 36.6; O2SAT 94
[2023-10-06] MEDS: Fluticasone Propionate Nasal 16 GM SPRAY 1 SPRAY NOSTRIL-B ×2 (08:32→21:21)
[2023-10-06] MEDS: buPROPion HCL 100 MG TABLET PO (08:33)
[2023-10-06] MEDS: lisinopriL 5 MG TABLET 15 MG PO (08:33)
[2023-10-06] MEDS: Vortioxetine Hydrobromide 10 MG TABLET PO (08:33)
[2023-10-06] MEDS: risperiDONE 0.25 MG TABLET 0.5 MG PO (08:35)
[2023-10-06] MEDS: amLODIPine Besylate 10 MG TABLET PO (08:35)
[2023-10-06] MEDS: Propranolol HCL 10 MG TABLET PO ×2 (08:36→14:13)
[2023-10-06] MEDS: Multivitamin TABLET 1 TAB PO (08:36)
[2023-10-06] MEDS: Tamsulosin HCL 0.4 MG CAPSULE PO (08:36)
[2023-10-06 14:10] VITALS: BP 132/72; PULSE 77
--- NOTE | 2023-10-06 15:42 | MHC.SLORD ---
Speech Language Pathology Order Status: Per RN Pt still not requesting upgrade. 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 Please re-consult when Pt expresses interest in trying new food, or advance as tolerated.
--- NOTE | 2023-10-06 17:11 | P.PNPSI_ITS ---
Subjective Subjective Date of Service: 10/06/23 Reason For Visit: Severe depression Subjective Notes: Conditional Voluntary Healthcare Proxy: Yes Interim History: 72 yo female inc depressed hopeless anxious somatically preoccupied Medication Compliance: Yes Mental Status Exam Mental Status Exam Narrative: Anxious looking in appearance looking away Patient Appearance: Appropriate Patient Orientation: Person, Place and Situation Level of Consciousness: Awake and Appropriate Patient Behavior: Appropriate and Poor Eye Contact Mood Description: Withdrawn, Depressed, Flat and Apprehensive Affect Description: Constricted, Depressed and Apprehensive Patient Cognition Impaired: Yes Ability to Follow Directions: Fair Speech Pattern: Clear Memory Description: Recent Impaired and Working Impaired Thought Process: Rumination Thought Content: positive for [place] and positive for Hypochondriasis Judgement: Fair Judgement and Insight: hopeless helpless Diagnostics Vital Signs (24Hr): Vital Signs - 24 hr 10/05/23 18:00 10/06/23 08:00 10/06/23 14:10 Temperature 98 F Pulse Rate 62 104 H 77 Respiratory Rate 18 18 Blood Pressure 137/65 121/68 132/72 Pulse Oximetry 96 94 Oxygen Delivery Method Room Air Room Air BMI result Body Mass Index 19.3 Labs 09/29/23 07:53 Medications Medications Current Medications Acetaminophen (Acetaminophen 325 Mg Tablet) 650 mg PO Q4H PRN PRN Reason: Pain, Severe (Pain Scale 7-10) Last Admin: 10/02/23 13:23 Dose: 650 mg Al Hydroxide/Mg Hydroxide (Magnesium Hydrox/Alum Hydrox 30 Ml Oral.Susp) 30 ml PO Q6H PRN PRN Reason: Heartburn/Nausea Amlodipine Besylate (Amlodipine Besylate 10 Mg Tablet) 10 mg PO DAILY [facility]; Protocol Last Admin: 10/06/23 08:35 Dose: 10 mg Ascorbic Acid (Ascorbic Acid 500 Mg Tablet) 2,000 mg PO BEDTIME [facility] Last Admin: 10/05/23 20:05 Dose: 2,000 mg Bupropion HCl (Bupropion Hcl 100 Mg Tablet) 100 mg PO DAILY [facility] Last Admin: 10/06/23 08:33 Dose: 100 mg Fluticasone Propionate (Fluticasone Propionate Nasal 16 Gm [place]) 1 spray NOSTRIL-B BID [facility] Last Admin: 10/06/23 08:32 Dose: 1 spray Hydroxyzine HCl (Hydroxyzine Hcl 25 Mg Tablet) 25 mg PO Q6H PRN PRN Reason: Anxiety Last Admin: 10/04/23 08:48 Dose: 25 mg Lisinopril (Lisinopril 5 Mg Tablet) 15 mg PO DAILY [facility]; Protocol Last Admin: 10/06/23 08:33 Dose: 15 mg Lorazepam (Lorazepam 0.5 Mg Tablet) 0.5 mg PO Q4H PRN PRN Reason: Anxiety Magnesium Hydroxide (Milk Of Magnesia 30 Ml Oral.Susp) 30 ml PO DAILY PRN PRN Reason: Constipation Magnesium Hydroxide (Milk Of Magnesia 30 Ml Oral.Susp) 30 ml PO DAILY PRN PRN Reason: Constipation Melatonin (Melatonin 3 Mg Tablet) 6 mg PO BEDTIME PRN PRN Reason: Insomnia Last Admin: 10/02/23 20:18 Dose: 6 mg Multivitamins/Vitamin C (Multivitamin Tablet) 1 tab PO DAILY [facility] Last Admin: 10/06/23 08:36 Dose: 1 tab Omeprazole (Omeprazole 20 Mg Capsule.Dr) 20 mg PO DAILY@0630 [facility] Last Admin: 10/06/23 06:03 Dose: 20 mg Ondansetron HCl (Ondansetron Hcl 4 Mg/2 Ml Vial) 4 mg IVPUSH Q8H PRN PRN Reason: Nausea and Vomiting Risperidone (Risperidone 0.25 Mg Tablet) 0.5 mg PO BEDTIME [facility] Last Admin: 10/05/23 20:05 Dose: 0.5 mg Risperidone (Risperidone 0.25 Mg Tablet) 0.5 mg PO DAILY [facility] Last Admin: 10/06/23 08:35 Dose: 0.5 mg Tamsulosin HCl (Tamsulosin Hcl 0.4 Mg Capsule) 0.4 mg PO DAILY [facility] Last Admin: 10/06/23 08:36 Dose: 0.4 mg Vortioxetine (Vortioxetine Hydrobromide 10 Mg Tablet) 10 mg PO DAILY [facility] Last Admin: 10/06/23 08:33 Dose: 10 mg Allergies Allergies Allergy/AdvReac Type Severity Reaction Status Date / Time No Known Allergies Allergy Verified 08/27/23 10:27 Assessment & Plan Assessment & Plan (1) Bipolar II disorder: Status: Inactive Code(s): F31.81 - Bipolar II disorder (2) Delirium: Status: Resolved Code(s): R41.0 - Disorientation, unspecified Plan The patient is an elderly female with a past history of mood disorder, anxiety personality disorder NOS who was brought into the hospital for altered mental status after a short course of as provide of for depression. 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 After being medically cleared she was transferring to this facility for psychiatric stabilization. Plan 1. Gather collateral information. 2. Continue Risperdal and antidepressants as started the medicine. 3. Regular blood work and reassessment with results. 4. 15 minute checks. 5. Speech and swallow evaluation for possible change of diet. 09/30/23 add wellbutrin 75 mg non serotonergic trintellix 5 mg remains with some PI but improved encourage phys rehab 10/01/23 Patient shows improved mood and energy ambulating better more active. Concerns regarding her short-term memory remembering names and fears regarding strength in her has which do seem somewhat bilaterally diminished and some numbness tingling seems to be improving cont trintellix wellbutrin 10/02/2023 Patient generally trending upwards generally less depressed but complicated by periods of paranoia and then apprehension depression and despair feels like she can trust staff and somehow they are intentionally playing with her in some way denies self-harm Recent confusional episode lasting a number of weeks question all serotonergic syndrome delirium question related to S ketamine Encourage out of bed ambulation PT consult increase in Risperdal had recently been on Latuda Vraylar and Rexulti without clear benefit would maintain current low-dose Trintellix 5 mg Wellbutrin recently started 75 mg 10/03: Continue current management and treatment plan. 10/04: Continue current management and treatment plan. Medication changes per primary team Dr. Shearer that knows the patient well. 10/05/2023 Increase Trintellix to 10 mg increase Wellbutrin to 100 mg consider change Risperdal to olanzapine or Seroquel strongly consider ECT patient having difficulty with trust 10/06/23 stop risperadol olanzapine hs and prn Reason for continued inpatient stay Substantial Risk for: harm to self, inability to function and rapid decompensation Time Spent With Patient Time: Total time managing care of this patient today ____ minutes.
[2023-10-06 18:00] VITALS: BP 133/63; PULSE 65; RESP 17; TEMP 36.1; O2SAT 94
--- NOTE | 2023-10-06 18:16 | PC.NURSE ---
Patient up out of bed for supper, ate 100%. New orders for Olanzapine 2.5mg PO at HS and BID prn obtained.
[2023-10-06] MEDS: Ascorbic Acid 500 MG TABLET 2000 MG PO (21:20)
[2023-10-06] MEDS: OLANZapine 2.5 MG TABLET PO (21:21)
[2023-10-06] MEDS: Milk of Magnesia 30 ML ORAL.SUSP PO (21:25)
[2023-10-07] MEDS: Omeprazole 20 MG CAPSULE.DR PO (06:00)
[2023-10-07 07:53] VITALS: BP 120/68; PULSE 93; RESP 16; TEMP 36.7; O2SAT 95
[2023-10-07] MEDS: Multivitamin TABLET 1 TAB PO (09:02)
[2023-10-07] MEDS: Vortioxetine Hydrobromide 10 MG TABLET PO (09:02)
[2023-10-07] MEDS: buPROPion HCL 100 MG TABLET PO (09:02)
[2023-10-07] MEDS: lisinopriL 5 MG TABLET 15 MG PO (09:02)
[2023-10-07] MEDS: Tamsulosin HCL 0.4 MG CAPSULE PO (09:02)
[2023-10-07] MEDS: Fluticasone Propionate Nasal 16 GM SPRAY 1 SPRAY NOSTRIL-B (09:02)
[2023-10-07] MEDS: amLODIPine Besylate 10 MG TABLET PO (09:03)
[2023-10-07 20:05] VITALS: BP 119/57; PULSE 82; RESP 18; TEMP 36.9; O2SAT 99
[2023-10-07] MEDS: Ascorbic Acid 500 MG TABLET 2000 MG PO (20:34)
[2023-10-07] MEDS: OLANZapine 2.5 MG TABLET PO (20:37)
[2023-10-07] MEDS: LORazepam 0.5 MG TABLET PO (21:05)
--- NOTE | 2023-10-07 21:43 | P.PNPSI_ITS ---
Subjective Subjective Date of Service: 10/07/23 Reason For Visit: Severe depression Subjective Notes: Conditional Voluntary Guardianship: No Interim History: Patient seen with her and her son mood depressed fatigued sensorium clearer periods of derealization hopeless discussed with patient and family option of ECT Having difficulty with her roomate that is anxiety provoking for her Medication Compliance: Yes Attending Groups: Intermittent Review of Systems fatigue weakness Mental Status Exam Mental Status Exam Patient Appearance: Appropriate Patient Orientation: Person, Place and Situation Level of Consciousness: Awake and Appropriate Patient Behavior: Appropriate Mood Description: Withdrawn, Depressed, Anxious, Flat and Apprehensive Affect Description: Constricted, Depressed, Anxious and Apprehensive Patient Cognition Impaired: Yes Ability to Follow Directions: Fair Speech Pattern: Clear Memory Description: Recent Impaired and Working Impaired Thought Process: Rumination Thought Content: positive for [place] and positive for Hypochondriasis Judgement: Fair Judgement and Insight: hopeless helpless Diagnostics Vital Signs (24Hr): Vital Signs - 24 hr 10/07/23 07:53 Temperature 98.1 F Pulse Rate 93 Respiratory Rate 16 Blood Pressure 120/68 Pulse Oximetry 95 Oxygen Delivery Method Room Air BMI result Body Mass Index 19.3 Labs 09/29/23 07:53 Medications Medications Current Medications Acetaminophen (Acetaminophen 325 Mg Tablet) 650 mg PO Q4H PRN PRN Reason: Pain, Severe (Pain Scale 7-10) Last Admin: 10/02/23 13:23 Dose: 650 mg Al Hydroxide/Mg Hydroxide (Magnesium Hydrox/Alum Hydrox 30 Ml Oral.Susp) 30 ml PO Q6H PRN PRN Reason: Heartburn/Nausea Amlodipine Besylate (Amlodipine Besylate 10 Mg Tablet) 10 mg PO DAILY [facility]; Protocol Last Admin: 10/07/23 09:03 Dose: 10 mg Ascorbic Acid (Ascorbic Acid 500 Mg Tablet) 2,000 mg PO BEDTIME [facility] Last Admin: 10/07/23 20:34 Dose: 2,000 mg Bupropion HCl (Bupropion Hcl 100 Mg Tablet) 100 mg PO DAILY [facility] Last Admin: 10/07/23 09:02 Dose: 100 mg Fluticasone Propionate (Fluticasone Propionate Nasal 16 Gm [place]) 1 spray NOSTRIL-B BID [facility] Last Admin: 10/07/23 21:06 Dose: Not Given Hydroxyzine HCl (Hydroxyzine Hcl 25 Mg Tablet) 25 mg PO Q6H PRN PRN Reason: Anxiety Last Admin: 10/04/23 08:48 Dose: 25 mg Lisinopril (Lisinopril 5 Mg Tablet) 15 mg PO DAILY [facility]; Protocol Last Admin: 10/07/23 09:02 Dose: 15 mg Lorazepam (Lorazepam 0.5 Mg Tablet) 0.5 mg PO Q4H PRN PRN Reason: Anxiety Last Admin: 10/07/23 21:05 Dose: 0.5 mg Magnesium Hydroxide (Milk Of Magnesia 30 Ml Oral.Susp) 30 ml PO DAILY PRN PRN Reason: Constipation Last Admin: 10/06/23 21:25 Dose: 30 ml Magnesium Hydroxide (Milk Of Magnesia 30 Ml Oral.Susp) 30 ml PO DAILY PRN PRN Reason: Constipation Melatonin (Melatonin 3 Mg Tablet) 6 mg PO BEDTIME PRN PRN Reason: Insomnia Last Admin: 10/02/23 20:18 Dose: 6 mg Multivitamins/Vitamin C (Multivitamin Tablet) 1 tab PO DAILY [facility] Last Admin: 10/07/23 09:02 Dose: 1 tab Olanzapine (Olanzapine 2.5 Mg Tablet) 2.5 mg PO BEDTIME [facility] Last Admin: 10/07/23 20:37 Dose: 2.5 mg Olanzapine (Olanzapine 2.5 Mg Tablet) 2.5 mg PO BID PRN PRN Reason: anxiety/restlessness Omeprazole (Omeprazole 20 Mg Capsule.Dr) 20 mg PO DAILY@0630 [facility] Last Admin: 10/07/23 06:00 Dose: 20 mg Ondansetron HCl (Ondansetron Hcl 4 Mg/2 Ml Vial) 4 mg IVPUSH Q8H PRN PRN Reason: Nausea and Vomiting Tamsulosin HCl (Tamsulosin Hcl 0.4 Mg Capsule) 0.4 mg PO DAILY [facility] Last Admin: 10/07/23 09:02 Dose: 0.4 mg Vortioxetine (Vortioxetine Hydrobromide 10 Mg Tablet) 10 mg PO DAILY [facility] Last Admin: 10/07/23 09:02 Dose: 10 mg Allergies Allergies Allergy/AdvReac Type Severity Reaction Status Date / Time No Known Allergies Allergy Verified 08/27/23 10:27 Assessment & Plan Assessment & Plan (1) Bipolar II disorder: Status: Inactive Code(s): F31.81 - Bipolar II disorder (2) Delirium: Status: Resolved Code(s): R41.0 - Disorientation, unspecified Plan The patient is an elderly female with a past history of mood disorder, anxiety personality disorder NOS who was brought into the hospital for altered mental status after a short course of as provide of for depression. 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 After being medically cleared she was transferring to this facility for psychiatric stabilization. Plan 1. Gather collateral information. 2. Continue Risperdal and antidepressants as started the medicine. 3. Regular blood work and reassessment with results. 4. 15 minute checks. 5. Speech and swallow evaluation for possible change of diet. 09/30/23 add wellbutrin 75 mg non serotonergic trintellix 5 mg remains with some PI but improved encourage phys rehab 10/01/23 Patient shows improved mood and energy ambulating better more active. Concerns regarding her short-term memory remembering names and fears regarding strength in her has which do seem somewhat bilaterally diminished and some numbness tingling seems to be improving cont trintellix wellbutrin 10/02/2023 Patient generally trending upwards generally less depressed but complicated by periods of paranoia and then apprehension depression and despair feels like she can trust staff and somehow they are intentionally playing with her in some way denies self-harm Recent confusional episode lasting a number of weeks question all serotonergic syndrome delirium question related to S ketamine Encourage out of bed ambulation PT consult increase in Risperdal had recently been on Latuda Vraylar and Rexulti without clear benefit would maintain current low-dose Trintellix 5 mg Wellbutrin recently started 75 mg 10/03: Continue current management and treatment plan. 10/04: Continue current management and treatment plan. Medication changes per primary team Dr. Shearer that knows the patient well. 10/05/2023 Increase Trintellix to 10 mg increase Wellbutrin to 100 mg consider change Risperdal to olanzapine or Seroquel strongly consider ECT patient having difficulty with trust 10/06/23 stop risperadol olanzapine hs and prn 10/07/23 Pt anxious depressed inc trintellix 10 mg inc olanzapine 2.5 am 5 hs wellbutrin 100 mg am Reason for continued inpatient stay Substantial Risk for: harm to self, inability to function and rapid decompensation Time Spent With Patient Time: Total time managing care of this patient today ____ minutes.
[2023-10-08] MEDS: Omeprazole 20 MG CAPSULE.DR PO (06:19)
[2023-10-08 07:00] VITALS: BMI 19.9
[2023-10-08 07:55] VITALS: BP 144/72; PULSE 128; RESP 18; TEMP 37.7; O2SAT 95
[2023-10-08] MEDS: Fluticasone Propionate Nasal 16 GM SPRAY 1 SPRAY NOSTRIL-B ×2 (08:20→20:30)
[2023-10-08] MEDS: Vortioxetine Hydrobromide 10 MG TABLET PO (08:21)
[2023-10-08] MEDS: lisinopriL 5 MG TABLET 15 MG PO (08:21)
[2023-10-08] MEDS: Tamsulosin HCL 0.4 MG CAPSULE PO (08:21)
[2023-10-08] MEDS: Multivitamin TABLET 1 TAB PO (08:22)
[2023-10-08] MEDS: buPROPion HCL 100 MG TABLET PO (08:22)
[2023-10-08] MEDS: amLODIPine Besylate 10 MG TABLET PO (08:22)
--- NOTE | 2023-10-08 11:23 | HO.PSYCHPN ---
Subjective Subjective Date of Service: 10/08/23 Reason For Visit: Severe depression Subjective Notes: Conditional Voluntary Interim History: The nursing staff reported the patient had been withdrawn, she slept well. On interview the patient reports that she feels depressed, no evidence of altered mental status or psychosis. She was complaining of involuntary tremors, the patient has benign tremor. We discussed options and she agreed to lower Zyprexa up to 2.5 p.o. q.h.s.. Mental Status Exam Mental Status Exam Patient Appearance: Well Grooomed and Appropriate Patient Orientation: Person, Place and Situation Level of Consciousness: Awake and Appropriate Patient Behavior: Guarded and Passive Mood Description: Withdrawn and Constricted Affect Description: Calm Ability to Follow Directions: Good Speech Pattern: Clear Hallucinations: None Delusions: Paranoid Ideation Thought Process: Distracted and Slowed Thinking Thought Content: positive for [place] and positive for Circumstantial Judgement: Fair Diagnostics Vital Signs (24Hr): Vital Signs - 24 hr 10/07/23 20:05 10/08/23 07:55 Temperature 98.4 F 99.8 F Pulse Rate 82 128 H Respiratory Rate 18 18 Blood Pressure 119/57 L 144/72 H Pulse Oximetry 99 95 Oxygen Delivery Method Room Air Room Air BMI result Body Mass Index 19.9 Labs 09/29/23 07:53 Medications Medications Current Medications Acetaminophen (Acetaminophen 325 Mg Tablet) 650 mg PO Q4H PRN PRN Reason: Pain, Severe (Pain Scale 7-10) Last Admin: 10/02/23 13:23 Dose: 650 mg Al Hydroxide/Mg Hydroxide (Magnesium Hydrox/Alum Hydrox 30 Ml Oral.Susp) 30 ml PO Q6H PRN PRN Reason: Heartburn/Nausea Amlodipine Besylate (Amlodipine Besylate 10 Mg Tablet) 10 mg PO DAILY [facility]; Protocol Last Admin: 10/08/23 08:22 Dose: 10 mg Ascorbic Acid (Ascorbic Acid 500 Mg Tablet) 2,000 mg PO BEDTIME [facility] Last Admin: 10/07/23 20:34 Dose: 2,000 mg Bupropion HCl (Bupropion Hcl 100 Mg Tablet) 100 mg PO DAILY [facility] Last Admin: 10/08/23 08:22 Dose: 100 mg Fluticasone Propionate (Fluticasone Propionate Nasal 16 Gm [place]) 1 spray NOSTRIL-B BID [facility] Last Admin: 10/08/23 08:20 Dose: 1 spray Hydroxyzine HCl (Hydroxyzine Hcl 25 Mg Tablet) 25 mg PO Q6H PRN PRN Reason: Anxiety Last Admin: 10/04/23 08:48 Dose: 25 mg Lisinopril (Lisinopril 5 Mg Tablet) 15 mg PO DAILY [facility]; Protocol Last Admin: 10/08/23 08:21 Dose: 15 mg Lorazepam (Lorazepam 0.5 Mg Tablet) 0.5 mg PO Q4H PRN PRN Reason: Anxiety Last Admin: 10/07/23 21:05 Dose: 0.5 mg Lorazepam (Lorazepam 0.5 Mg Tablet) 0.5 mg PO BEDTIME [facility] Last Admin: 10/07/23 22:54 Dose: Not Given Magnesium Hydroxide (Milk Of Magnesia 30 Ml Oral.Susp) 30 ml PO DAILY PRN PRN Reason: Constipation Last Admin: 10/06/23 21:25 Dose: 30 ml Magnesium Hydroxide (Milk Of Magnesia 30 Ml Oral.Susp) 30 ml PO DAILY PRN PRN Reason: Constipation Melatonin (Melatonin 3 Mg Tablet) 6 mg PO BEDTIME PRN PRN Reason: Insomnia Last Admin: 10/02/23 20:18 Dose: 6 mg Multivitamins/Vitamin C (Multivitamin Tablet) 1 tab PO DAILY [facility] Last Admin: 10/08/23 08:22 Dose: 1 tab Olanzapine (Olanzapine 2.5 Mg Tablet) 2.5 mg PO BID PRN PRN Reason: anxiety/restlessness Olanzapine (Olanzapine 2.5 Mg Tablet) 2.5 mg PO BEDTIME [facility] Omeprazole (Omeprazole 20 Mg Capsule.Dr) 20 mg PO DAILY@0630 [facility] Last Admin: 10/08/23 06:19 Dose: 20 mg Ondansetron HCl (Ondansetron Hcl 4 Mg/2 Ml Vial) 4 mg IVPUSH Q8H PRN PRN Reason: Nausea and Vomiting Tamsulosin HCl (Tamsulosin Hcl 0.4 Mg Capsule) 0.4 mg PO DAILY [facility] Last Admin: 10/08/23 08:21 Dose: 0.4 mg Vortioxetine (Vortioxetine Hydrobromide 10 Mg Tablet) 10 mg PO DAILY [facility] Last Admin: 10/08/23 08:21 Dose: 10 mg Allergies Allergies Allergy/AdvReac Type Severity Reaction Status Date / Time No Known Allergies Allergy Verified 08/27/23 10:27 Assessment & Plan Assessment & Plan (1) Bipolar II disorder: Status: Inactive Code(s): F31.81 - Bipolar II disorder (2) Delirium: Status: Resolved Code(s): R41.0 - Disorientation, unspecified Plan The patient is an elderly female with a past history of mood disorder, anxiety personality disorder NOS who was brought into the hospital for altered mental status after a short course of as provide of for depression. 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 After being medically cleared she was transferring to this facility for psychiatric stabilization. Plan 1. Gather collateral information. 2. Continue Risperdal and antidepressants as started the medicine. 3. Regular blood work and reassessment with results. 4. 15 minute checks. 5. Speech and swallow evaluation for possible change of diet. 09/30/23 add wellbutrin 75 mg non serotonergic trintellix 5 mg remains with some PI but improved encourage phys rehab 10/01/23 Patient shows improved mood and energy ambulating better more active. Concerns regarding her short-term memory remembering names and fears regarding strength in her has which do seem somewhat bilaterally diminished and some numbness tingling seems to be improving cont trintellix wellbutrin 10/02/2023 Patient generally trending upwards generally less depressed but complicated by periods of paranoia and then apprehension depression and despair feels like she can trust staff and somehow they are intentionally playing with her in some way denies self-harm Recent confusional episode lasting a number of weeks question all serotonergic syndrome delirium question related to S ketamine Encourage out of bed ambulation PT consult increase in Risperdal had recently been on Latuda Vraylar and Rexulti without clear benefit would maintain current low-dose Trintellix 5 mg Wellbutrin recently started 75 mg 10/03: Continue current management and treatment plan. 10/04: Continue current management and treatment plan. Medication changes per primary team Dr. Shearer that knows the patient well. 10/05/2023 Increase Trintellix to 10 mg increase Wellbutrin to 100 mg consider change Risperdal to olanzapine or Seroquel strongly consider ECT patient having difficulty with trust 10/06/23 stop risperadol olanzapine hs and prn 10/07/23 Pt anxious depressed inc trintellix 10 mg inc olanzapine 2.5 am 5 hs wellbutrin 100 mg am 10/08/2023 The patient reports depression, we will continue with Trintellix and we will lower Zyprexa up to 2.5 p.o. q.h.s. and keep p.r.n. 2.5 Zyprexa as needed for psychosis. Reason for continued inpatient stay Substantial Risk for: inability to function, rapid decompensation and med/psych decompensation Time Spent With Patient Time: Total time managing care of this patient today __20__ minutes.
[2023-10-08 15:49] VITALS: BP 128/67; PULSE 113; RESP 18; O2SAT 95
--- NOTE | 2023-10-08 16:16 | P.EN_ITS ---
Event Note Date of Service: 10/08/23 Event Note: Pt is a 72-year-old female with a PMH significant for?HTN, essential tremor, GED, depression, and bipolar 2 disorder who had an unwitnessed fall on the [facility] earlier this afternoon. Patient was attempting to sit down shortly before 16:00 in a chair when she misjudged her positioning and fell to the floor, striking the right side of her head on the corner of a chair. Patient had a small 2 mm laceration to her right eyebrow which was covered with a Band- Aid. Vital signs stable. Patient has been experiencing chronic, occasional lightheadedness and dizziness as well as chronic upper extremity essential tremor, though this appears to be a mechanical fall. Patient complains of mild headache. No changes to vision. Denies any other musculoskeletal pain: No pain or reduced ROM in shoulders, elbows, hands or hips, knees, feet. Upon physical examination no tenderness to palpation or reduction in active ROM noted to both upper and lower extremities bilaterally. Patient's laceration mild and non bleeding, no need for any kind of repair. Patient not on blood thinners. Will get CT of head and brain to rule out any acute intracranial abnormalities. Time Spent With Patient Time: Total time managing care of this patient today ____ minutes.
[2023-10-08] MEDS: LORazepam 0.5 MG TABLET PO ×2 (16:25→20:30)
[2023-10-08] MEDS: Acetaminophen 325 MG TABLET 650 MG PO (16:25)
--- NOTE | 2023-10-08 16:48 | PC.NURSE ---
Patient had an unwitnessed fall in milieu at 15:55. Patient reported she went to sit and missed the chair. Patient has a laceration 0.2 cm on R forehead. Patient taken for head CT. Provider, hospitalist, and sales clerk supervisor aware. Left message for on voicemail.
[2023-10-08 19:35] VITALS: BP 116/63; PULSE 90; RESP 16; TEMP 36.6; O2SAT 94
[2023-10-08] MEDS: OLANZapine 2.5 MG TABLET PO (20:30)
[2023-10-08] MEDS: Ascorbic Acid 500 MG TABLET 2000 MG PO (20:30)
[2023-10-09] MEDS: Omeprazole 20 MG CAPSULE.DR PO (05:55)
[2023-10-09 07:56] VITALS: BP 153/77; PULSE 91; RESP 18; TEMP 36.8; O2SAT 96
[2023-10-09] MEDS: Tamsulosin HCL 0.4 MG CAPSULE PO (09:15)
[2023-10-09] MEDS: buPROPion HCL 100 MG TABLET PO (09:15)
[2023-10-09] MEDS: lisinopriL 5 MG TABLET 15 MG PO (09:15)
[2023-10-09] MEDS: Vortioxetine Hydrobromide 10 MG TABLET PO (09:15)
[2023-10-09] MEDS: amLODIPine Besylate 10 MG TABLET PO (09:15)
[2023-10-09] MEDS: Multivitamin TABLET 1 TAB PO (09:15)
[2023-10-09] MEDS: Fluticasone Propionate Nasal 16 GM SPRAY 1 SPRAY NOSTRIL-B (09:15)
--- NOTE | 2023-10-09 13:38 | P.PNPSI_ITS ---
Subjective Subjective Date of Service: 10/09/23 Reason For Visit: Severe depression Subjective Notes: Conditional Voluntary Interim History: the nursing staff reported that yesterday the patient fell and hurt her face she was medically workout and her CT scan came back normal. Last night she slept 6 hours. On interview the patient reported that she is not feeling well that she is feeling depressed, she denies new symptoms still dysphoric. Very hypoactive,. Mental Status Exam Mental Status Exam Patient Appearance: Well Grooomed and Appropriate Patient Orientation: Person and Situation Level of Consciousness: Awake and Appropriate Patient Behavior: Guarded and Passive Mood Description: Withdrawn Affect Description: Constricted Patient Cognition Impaired: Yes Ability to Follow Directions: Good Speech Pattern: Clear Hallucinations: None Delusions: Ideas of Reference Thought Process: Distracted and Evasive Thought Content: positive for [place] and positive for [place] of Content Judgement: Fair Diagnostics Vital Signs (24Hr): Vital Signs - 24 hr 10/08/23 15:49 10/08/23 19:35 10/09/23 07:56 Temperature 97.8 F 98.3 F Pulse Rate 113 H 90 91 Respiratory Rate 18 16 18 Blood Pressure 128/67 116/63 153/77 H Pulse Oximetry 95 94 96 Oxygen Delivery Method Room Air Room Air Room Air BMI result Body Mass Index 19.9 Labs 09/29/23 07:53 Imaging Radiology Impressions: ITS Impressions Head CT 10/08/23 16:26 IMPRESSION: No acute intracranial process seen. Medications Medications Current Medications Acetaminophen (Acetaminophen 325 Mg Tablet) 650 mg PO Q4H PRN PRN Reason: Pain, Severe (Pain Scale 7-10) Last Admin: 10/08/23 16:25 Dose: 650 mg Al Hydroxide/Mg Hydroxide (Magnesium Hydrox/Alum Hydrox 30 Ml Oral.Susp) 30 ml PO Q6H PRN PRN Reason: Heartburn/Nausea Amlodipine Besylate (Amlodipine Besylate 10 Mg Tablet) 10 mg PO DAILY [facility]; Protocol Last Admin: 10/09/23 09:15 Dose: 10 mg Ascorbic Acid (Ascorbic Acid 500 Mg Tablet) 2,000 mg PO BEDTIME [facility] Last Admin: 10/08/23 20:30 Dose: 2,000 mg Bupropion HCl (Bupropion Hcl 100 Mg Tablet) 100 mg PO DAILY [facility] Last Admin: 10/09/23 09:15 Dose: 100 mg Fluticasone Propionate (Fluticasone Propionate Nasal 16 Gm [place]) 1 spray NOSTRIL-B BID [facility] Last Admin: 10/09/23 09:15 Dose: 1 spray Hydroxyzine HCl (Hydroxyzine Hcl 25 Mg Tablet) 25 mg PO Q6H PRN PRN Reason: Anxiety Last Admin: 10/04/23 08:48 Dose: 25 mg Lisinopril (Lisinopril 5 Mg Tablet) 15 mg PO DAILY [facility]; Protocol Last Admin: 10/09/23 09:15 Dose: 15 mg Lorazepam (Lorazepam 0.5 Mg Tablet) 0.5 mg PO Q4H PRN PRN Reason: Anxiety Last Admin: 10/08/23 16:25 Dose: 0.5 mg Lorazepam (Lorazepam 0.5 Mg Tablet) 0.5 mg PO BEDTIME [facility] Last Admin: 10/08/23 20:30 Dose: 0.5 mg Magnesium Hydroxide (Milk Of Magnesia 30 Ml Oral.Susp) 30 ml PO DAILY PRN PRN Reason: Constipation Last Admin: 10/06/23 21:25 Dose: 30 ml Magnesium Hydroxide (Milk Of Magnesia 30 Ml Oral.Susp) 30 ml PO DAILY PRN PRN Reason: Constipation Melatonin (Melatonin 3 Mg Tablet) 6 mg PO BEDTIME PRN PRN Reason: Insomnia Last Admin: 10/02/23 20:18 Dose: 6 mg Multivitamins/Vitamin C (Multivitamin Tablet) 1 tab PO DAILY [facility] Last Admin: 10/09/23 09:15 Dose: 1 tab Olanzapine (Olanzapine 2.5 Mg Tablet) 2.5 mg PO BID PRN PRN Reason: anxiety/restlessness Olanzapine (Olanzapine 2.5 Mg Tablet) 2.5 mg PO BEDTIME [facility] Last Admin: 10/08/23 20:30 Dose: 2.5 mg Omeprazole (Omeprazole 20 Mg Capsule.Dr) 20 mg PO DAILY@0630 [facility] Last Admin: 10/09/23 05:55 Dose: 20 mg Ondansetron HCl (Ondansetron Hcl 4 Mg/2 Ml Vial) 4 mg IVPUSH Q8H PRN PRN Reason: Nausea and Vomiting Tamsulosin HCl (Tamsulosin Hcl 0.4 Mg Capsule) 0.4 mg PO DAILY [facility] Last Admin: 10/09/23 09:15 Dose: 0.4 mg Vortioxetine (Vortioxetine Hydrobromide 10 Mg Tablet) 10 mg PO DAILY [facility] Last Admin: 10/09/23 09:15 Dose: 10 mg Allergies Allergies Allergy/AdvReac Type Severity Reaction Status Date / Time No Known Allergies Allergy Verified 08/27/23 10:27 Assessment & Plan Assessment & Plan (1) Bipolar II disorder: Status: Inactive Code(s): F31.81 - Bipolar II disorder (2) Delirium: Status: Resolved Code(s): R41.0 - Disorientation, unspecified Plan The patient is an elderly female with a past history of mood disorder, anxiety personality disorder NOS who was brought into the hospital for altered mental status after a short course of as provide of for depression. 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 After being medically cleared she was transferring to this facility for psychiatric stabilization. Plan 1. Gather collateral information. 2. Continue Risperdal and antidepressants as started the medicine. 3. Regular blood work and reassessment with results. 4. 15 minute checks. 5. Speech and swallow evaluation for possible change of diet. 09/30/23 add wellbutrin 75 mg non serotonergic trintellix 5 mg remains with some PI but improved encourage phys rehab 10/01/23 Patient shows improved mood and energy ambulating better more active. Concerns regarding her short-term memory remembering names and fears regarding strength in her has which do seem somewhat bilaterally diminished and some numbness tingling seems to be improving cont trintellix wellbutrin 10/02/2023 Patient generally trending upwards generally less depressed but complicated by periods of paranoia and then apprehension depression and despair feels like she can trust staff and somehow they are intentionally playing with her in some way denies self-harm Recent confusional episode lasting a number of weeks question all serotonergic syndrome delirium question related to S ketamine Encourage out of bed ambulation PT consult increase in Risperdal had recently been on Latuda Vraylar and Rexulti without clear benefit would maintain current low-dose Trintellix 5 mg Wellbutrin recently started 75 mg 10/03: Continue current management and treatment plan. 10/04: Continue current management and treatment plan. Medication changes per primary team Dr. Shearer that knows the patient well. 10/05/2023 Increase Trintellix to 10 mg increase Wellbutrin to 100 mg consider change Risperdal to olanzapine or Seroquel strongly consider ECT patient having difficulty with trust 10/06/23 stop risperadol olanzapine hs and prn 10/07/23 Pt anxious depressed inc trintellix 10 mg inc olanzapine 2.5 am 5 hs wellbutrin 100 mg am 10/08/2023 The patient reports depression, we will continue with Trintellix and we will lower Zyprexa up to 2.5 p.o. q.h.s. and keep p.r.n. 2.5 Zyprexa as needed for psychosis. 10/09 keep same treatment Reason for continued inpatient stay Substantial Risk for: inability to function, rapid decompensation and med/psych decompensation Time Spent With Patient Time: Total time managing care of this patient today __20__ minutes.
[2023-10-09 18:00] VITALS: BP 122/56; PULSE 92; RESP 16; TEMP 36.8; O2SAT 93
[2023-10-09] MEDS: Ascorbic Acid 500 MG TABLET 2000 MG PO (21:23)
[2023-10-09] MEDS: LORazepam 0.5 MG TABLET PO (21:24)
[2023-10-09] MEDS: OLANZapine 2.5 MG TABLET PO (21:24)
[2023-10-10 06:00] VITALS: BP 137/65; PULSE 94; RESP 16; TEMP 36.3; O2SAT 94
[2023-10-10] MEDS: lisinopriL 5 MG TABLET 15 MG PO (09:23)
[2023-10-10] MEDS: Omeprazole 20 MG CAPSULE.DR PO (09:23)
[2023-10-10] MEDS: Fluticasone Propionate Nasal 16 GM SPRAY 1 SPRAY NOSTRIL-B (09:23)
[2023-10-10] MEDS: Vortioxetine Hydrobromide 10 MG TABLET PO (09:23)
[2023-10-10] MEDS: Tamsulosin HCL 0.4 MG CAPSULE PO (09:23)
[2023-10-10] MEDS: amLODIPine Besylate 10 MG TABLET PO (09:23)
[2023-10-10] MEDS: buPROPion HCL 100 MG TABLET PO (09:23)
[2023-10-10] MEDS: Multivitamin TABLET 1 TAB PO (09:23)
--- NOTE | 2023-10-10 14:40 | HO.PSYCHPN ---
Subjective Subjective Date of Service: 10/10/23 Reason For Visit: Severe depression Subjective Notes: Conditional Voluntary Interim History: Pt in her room, somewhat anxious and suspicious. She initially told this medical technical writer she can't move. She reported that when she tried to move her legs not able to do so, however, when this medical technical writer asked her to sit up and move legs she was able to do it quickly without problem. She then reported feeling weak to stood up. She denied SI/HI. She appeared internally preoccupied and fearful. She reported feeling scared when this medical technical writer asking questions about her walking and mood. Also, increase bilat actions tremors affecting her ability to eat and hold spoon. Discussed with Dr. Shearer who had stopped propanolol to restart- improvement noted after first dose. Review of Systems Review of Systems Yes all other systems are reviewed and are negative Mental Status Exam Mental Status Exam Narrative: Appearance: wearing hospital gown, in NAD but fearful and guarded No SI/HI. Pt reports feeling weak. Appears internally preoccupied although denies VH/AH. Bilat action tremors. Diagnostics Vital Signs (24Hr): Vital Signs - 24 hr 10/09/23 18:00 10/10/23 06:00 Temperature 98.2 F 97.4 F Pulse Rate 92 94 Respiratory Rate 16 16 Blood Pressure 122/56 L 137/65 Pulse Oximetry 93 94 Oxygen Delivery Method Room Air Room Air BMI result Body Mass Index 19.9 Labs 09/29/23 07:53 Imaging Radiology Impressions: ITS Impressions Head CT 10/08/23 16:26 IMPRESSION: No acute intracranial process seen. Medications Medications Current Medications Acetaminophen (Acetaminophen 325 Mg Tablet) 650 mg PO Q4H PRN PRN Reason: Pain, Severe (Pain Scale 7-10) Last Admin: 10/08/23 16:25 Dose: 650 mg Al Hydroxide/Mg Hydroxide (Magnesium Hydrox/Alum Hydrox 30 Ml Oral.Susp) 30 ml PO Q6H PRN PRN Reason: Heartburn/Nausea Amlodipine Besylate (Amlodipine Besylate 10 Mg Tablet) 10 mg PO DAILY [facility]; Protocol Last Admin: 10/10/23 09:23 Dose: 10 mg Ascorbic Acid (Ascorbic Acid 500 Mg Tablet) 2,000 mg PO BEDTIME [facility] Last Admin: 10/09/23 21:23 Dose: 2,000 mg Bupropion HCl (Bupropion Hcl 100 Mg Tablet) 100 mg PO DAILY [facility] Last Admin: 10/10/23 09:23 Dose: 100 mg Fluticasone Propionate (Fluticasone Propionate Nasal 16 Gm [place]) 1 spray NOSTRIL-B BID [facility] Last Admin: 10/10/23 09:23 Dose: 1 spray Hydroxyzine HCl (Hydroxyzine Hcl 25 Mg Tablet) 25 mg PO Q6H PRN PRN Reason: Anxiety Last Admin: 10/04/23 08:48 Dose: 25 mg Lisinopril (Lisinopril 5 Mg Tablet) 15 mg PO DAILY [facility]; Protocol Last Admin: 10/10/23 09:23 Dose: 15 mg Lorazepam (Lorazepam 0.5 Mg Tablet) 0.5 mg PO Q4H PRN PRN Reason: Anxiety Last Admin: 10/08/23 16:25 Dose: 0.5 mg Lorazepam (Lorazepam 0.5 Mg Tablet) 0.5 mg PO BEDTIME [facility] Last Admin: 10/09/23 21:24 Dose: 0.5 mg Magnesium Hydroxide (Milk Of Magnesia 30 Ml Oral.Susp) 30 ml PO DAILY PRN PRN Reason: Constipation Last Admin: 10/06/23 21:25 Dose: 30 ml Magnesium Hydroxide (Milk Of Magnesia 30 Ml Oral.Susp) 30 ml PO DAILY PRN PRN Reason: Constipation Melatonin (Melatonin 3 Mg Tablet) 6 mg PO BEDTIME PRN PRN Reason: Insomnia Last Admin: 10/02/23 20:18 Dose: 6 mg Multivitamins/Vitamin C (Multivitamin Tablet) 1 tab PO DAILY [facility] Last Admin: 10/10/23 09:23 Dose: 1 tab Olanzapine (Olanzapine 2.5 Mg Tablet) 2.5 mg PO BID PRN PRN Reason: anxiety/restlessness Olanzapine (Olanzapine 2.5 Mg Tablet) 2.5 mg PO BEDTIME [facility] Last Admin: 10/09/23 21:24 Dose: 2.5 mg Omeprazole (Omeprazole 20 Mg Capsule.Dr) 20 mg PO DAILY@0630 [facility] Last Admin: 10/10/23 09:23 Dose: 20 mg Ondansetron HCl (Ondansetron Hcl 4 Mg/2 Ml Vial) 4 mg IVPUSH Q8H PRN PRN Reason: Nausea and Vomiting Tamsulosin HCl (Tamsulosin Hcl 0.4 Mg Capsule) 0.4 mg PO DAILY [facility] Last Admin: 10/10/23 09:23 Dose: 0.4 mg Vortioxetine (Vortioxetine Hydrobromide 10 Mg Tablet) 10 mg PO DAILY [facility] Last Admin: 10/10/23 09:23 Dose: 10 mg Allergies Allergies Allergy/AdvReac Type Severity Reaction Status Date / Time No Known Allergies Allergy Verified 08/27/23 10:27 Assessment & Plan Assessment & Plan (1) Bipolar II disorder: Status: Inactive Code(s): F31.81 - Bipolar II disorder (2) Delirium: Status: Resolved Code(s): R41.0 - Disorientation, unspecified Plan The patient is an elderly female with a past history of mood disorder, anxiety personality disorder NOS who was brought into the hospital for altered mental status after a short course of as provide of for depression. 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 After being medically cleared she was transferring to this facility for psychiatric stabilization. Plan 1. Gather collateral information. 2. Continue Risperdal and antidepressants as started the medicine. 3. Regular blood work and reassessment with results. 4. 15 minute checks. 5. Speech and swallow evaluation for possible change of diet. 09/30/23 add wellbutrin 75 mg non serotonergic trintellix 5 mg remains with some PI but improved encourage phys rehab 10/01/23 Patient shows improved mood and energy ambulating better more active. Concerns regarding her short-term memory remembering names and fears regarding strength in her has which do seem somewhat bilaterally diminished and some numbness tingling seems to be improving cont trintellix wellbutrin 10/02/2023 Patient generally trending upwards generally less depressed but complicated by periods of paranoia and then apprehension depression and despair feels like she can trust staff and somehow they are intentionally playing with her in some way denies self-harm Recent confusional episode lasting a number of weeks question all serotonergic syndrome delirium question related to S ketamine Encourage out of bed ambulation PT consult increase in Risperdal had recently been on Latuda Vraylar and Rexulti without clear benefit would maintain current low-dose Trintellix 5 mg Wellbutrin recently started 75 mg 10/03: Continue current management and treatment plan. 10/04: Continue current management and treatment plan. Medication changes per primary team Dr. Shearer that knows the patient well. 10/05/2023 Increase Trintellix to 10 mg increase Wellbutrin to 100 mg consider change Risperdal to olanzapine or Seroquel strongly consider ECT patient having difficulty with trust 10/06/23 stop risperadol olanzapine hs and prn 10/07/23 Pt anxious depressed inc trintellix 10 mg inc olanzapine 2.5 am 5 hs wellbutrin 100 mg am 10/08/2023 The patient reports depression, we will continue with Trintellix and we will lower Zyprexa up to 2.5 p.o. q.h.s. and keep p.r.n. 2.5 Zyprexa as needed for psychosis. 10/09 keep same treatment 10/10 restart propanolol 10mg po TID for essential tremors. Reason for continued inpatient stay Substantial Risk for: inability to function Time Spent With Patient Time: Total time managing care of this patient today ____ minutes.
[2023-10-10 16:44] VITALS: BP 132/63; PULSE 105
[2023-10-10] MEDS: Propranolol HCL 10 MG TABLET PO ×2 (16:48→20:41)
[2023-10-10 19:53] VITALS: BP 105/57; PULSE 78; RESP 20; TEMP 36.3; O2SAT 93
[2023-10-10] MEDS: Ascorbic Acid 500 MG TABLET 2000 MG PO (20:40)
[2023-10-10] MEDS: Melatonin 3 MG TABLET 6 MG PO (20:41)
[2023-10-10] MEDS: OLANZapine 2.5 MG TABLET PO (20:41)
[2023-10-10] MEDS: LORazepam 0.5 MG TABLET PO (20:41)
[2023-10-11] MEDS: Omeprazole 20 MG CAPSULE.DR PO (05:26)
[2023-10-11 07:35] VITALS: BP 126/65; PULSE 80; RESP 18; TEMP 36.2; O2SAT 96
[2023-10-11] MEDS: Acetaminophen 325 MG TABLET 650 MG PO (08:48)
[2023-10-11] MEDS: amLODIPine Besylate 10 MG TABLET PO (08:49)
[2023-10-11] MEDS: Vortioxetine Hydrobromide 10 MG TABLET PO (08:49)
[2023-10-11] MEDS: Propranolol HCL 10 MG TABLET PO ×3 (08:50→20:38)
[2023-10-11] MEDS: Tamsulosin HCL 0.4 MG CAPSULE PO (08:50)
[2023-10-11] MEDS: Multivitamin TABLET 1 TAB PO (08:50)
[2023-10-11] MEDS: buPROPion HCL 100 MG TABLET PO (08:51)
[2023-10-11] MEDS: Fluticasone Propionate Nasal 16 GM SPRAY 1 SPRAY NOSTRIL-B ×2 (08:51→20:49)
[2023-10-11] MEDS: lisinopriL 5 MG TABLET 15 MG PO (08:51)
[2023-10-11 14:28] VITALS: BP 107/59; PULSE 72
--- NOTE | 2023-10-11 15:30 | P.PNPSI_ITS ---
Subjective Subjective Date of Service: 10/11/23 Reason For Visit: Severe depression Subjective Notes: Conditional Voluntary Interim History: Pt reports tremors are better. She denies SI/HI. She did not speak much and ask this credit underwriter to be quiet. She again appears overly fearful as in internally preoccupied. She has been visible for meals but quickly returns to her room. Medication Compliance: Yes Side effects from medications: No Review of Systems Review of Systems Yes all other systems are reviewed and are negative Mental Status Exam Mental Status Exam Narrative: Appearance: wearing hospital gown, in NAD but fearful and guarded No SI/HI. Pt reports feeling weak. Appears internally preoccupied although denies VH/AH. Bilat action tremors. Diagnostics Vital Signs (24Hr): Vital Signs - 24 hr 10/10/23 16:44 10/10/23 19:53 10/11/23 07:35 Temperature 97.4 F 97.2 F Pulse Rate 105 H 78 80 Respiratory Rate 20 18 Blood Pressure 132/63 105/57 L 126/65 Pulse Oximetry 93 96 Oxygen Delivery Method Room Air Room Air 10/11/23 14:28 Temperature Pulse Rate 72 Respiratory Rate Blood Pressure 107/59 L Pulse Oximetry Oxygen Delivery Method BMI result Body Mass Index 19.9 Labs 09/29/23 07:53 Imaging Radiology Impressions: ITS Impressions Head CT 10/08/23 16:26 IMPRESSION: No acute intracranial process seen. Medications Medications Current Medications Acetaminophen (Acetaminophen 325 Mg Tablet) 650 mg PO Q4H PRN PRN Reason: Pain, Severe (Pain Scale 7-10) Last Admin: 10/11/23 08:48 Dose: 650 mg Al Hydroxide/Mg Hydroxide (Magnesium Hydrox/Alum Hydrox 30 Ml Oral.Susp) 30 ml PO Q6H PRN PRN Reason: Heartburn/Nausea Amlodipine Besylate (Amlodipine Besylate 10 Mg Tablet) 10 mg PO DAILY [facility]; Protocol Last Admin: 10/11/23 08:49 Dose: 10 mg Ascorbic Acid (Ascorbic Acid 500 Mg Tablet) 2,000 mg PO BEDTIME [facility] Last Admin: 10/10/23 20:40 Dose: 2,000 mg Brimonidine Tartrate (Brimonidine Tartrate 0.2% Oph 5 Ml Bottle) 1 drop EYE- BOTH BID [facility] Bupropion HCl (Bupropion Hcl 100 Mg Tablet) 100 mg PO DAILY [facility] Last Admin: 10/11/23 08:51 Dose: 100 mg Fluticasone Propionate (Fluticasone Propionate Nasal 16 Gm [place]) 1 spray NOSTRIL-B BID [facility] Last Admin: 10/11/23 08:51 Dose: 1 spray Hydroxyzine HCl (Hydroxyzine Hcl 25 Mg Tablet) 25 mg PO Q6H PRN PRN Reason: Anxiety Last Admin: 10/04/23 08:48 Dose: 25 mg Lisinopril (Lisinopril 5 Mg Tablet) 15 mg PO DAILY [facility]; Protocol Last Admin: 10/11/23 08:51 Dose: 15 mg Lorazepam (Lorazepam 0.5 Mg Tablet) 0.5 mg PO Q4H PRN PRN Reason: Anxiety Last Admin: 10/08/23 16:25 Dose: 0.5 mg Lorazepam (Lorazepam 0.5 Mg Tablet) 0.5 mg PO BEDTIME [facility] Last Admin: 10/10/23 20:41 Dose: 0.5 mg Magnesium Hydroxide (Milk Of Magnesia 30 Ml Oral.Susp) 30 ml PO DAILY PRN PRN Reason: Constipation Last Admin: 10/06/23 21:25 Dose: 30 ml Magnesium Hydroxide (Milk Of Magnesia 30 Ml Oral.Susp) 30 ml PO DAILY PRN PRN Reason: Constipation Melatonin (Melatonin 3 Mg Tablet) 6 mg PO BEDTIME PRN PRN Reason: Insomnia Last Admin: 10/10/23 20:41 Dose: 6 mg Multivitamins/Vitamin C (Multivitamin Tablet) 1 tab PO DAILY [facility] Last Admin: 10/11/23 08:50 Dose: 1 tab Olanzapine (Olanzapine 2.5 Mg Tablet) 2.5 mg PO BID PRN PRN Reason: anxiety/restlessness Olanzapine (Olanzapine 2.5 Mg Tablet) 2.5 mg PO BEDTIME [facility] Last Admin: 10/10/23 20:41 Dose: 2.5 mg Omeprazole (Omeprazole 20 Mg Capsule.Dr) 20 mg PO DAILY@0630 [facility] Last Admin: 10/11/23 05:26 Dose: 20 mg Ondansetron HCl (Ondansetron Hcl 4 Mg/2 Ml Vial) 4 mg IVPUSH Q8H PRN PRN Reason: Nausea and Vomiting Propranolol HCl (Propranolol Hcl 10 Mg Tablet) 10 mg PO TID [facility]; Protocol Last Admin: 10/11/23 14:45 Dose: 10 mg Tamsulosin HCl (Tamsulosin Hcl 0.4 Mg Capsule) 0.4 mg PO DAILY [facility] Last Admin: 10/11/23 08:50 Dose: 0.4 mg Vortioxetine (Vortioxetine Hydrobromide 10 Mg Tablet) 10 mg PO DAILY [facility] Last Admin: 10/11/23 08:49 Dose: 10 mg Allergies Allergies Allergy/AdvReac Type Severity Reaction Status Date / Time No Known Allergies Allergy Verified 08/27/23 10:27 Assessment & Plan Assessment & Plan (1) Bipolar II disorder: Status: Inactive Code(s): F31.81 - Bipolar II disorder (2) Delirium: Status: Resolved Code(s): R41.0 - Disorientation, unspecified Plan The patient is an elderly female with a past history of mood disorder, anxiety personality disorder NOS who was brought into the hospital for altered mental status after a short course of as provide of for depression. 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 After being medically cleared she was transferring to this facility for psychiatric stabilization. Plan 1. Gather collateral information. 2. Continue Risperdal and antidepressants as started the medicine. 3. Regular blood work and reassessment with results. 4. 15 minute checks. 5. Speech and swallow evaluation for possible change of diet. 09/30/23 add wellbutrin 75 mg non serotonergic trintellix 5 mg remains with some PI but improved encourage phys rehab 10/01/23 Patient shows improved mood and energy ambulating better more active. Concerns regarding her short-term memory remembering names and fears regarding strength in her has which do seem somewhat bilaterally diminished and some numbness tingling seems to be improving cont trintellix wellbutrin 10/02/2023 Patient generally trending upwards generally less depressed but complicated by periods of paranoia and then apprehension depression and despair feels like she can trust staff and somehow they are intentionally playing with her in some way denies self-harm Recent confusional episode lasting a number of weeks question all serotonergic syndrome delirium question related to S ketamine Encourage out of bed ambulation PT consult increase in Risperdal had recently been on Latuda Vraylar and Rexulti without clear benefit would maintain current low-dose Trintellix 5 mg Wellbutrin recently started 75 mg 10/03: Continue current management and treatment plan. 10/04: Continue current management and treatment plan. Medication changes per primary team Dr. Shearer that knows the patient well. 10/05/2023 Increase Trintellix to 10 mg increase Wellbutrin to 100 mg consider change Risperdal to olanzapine or Seroquel strongly consider ECT patient having difficulty with trust 10/06/23 stop risperadol olanzapine hs and prn 10/07/23 Pt anxious depressed inc trintellix 10 mg inc olanzapine 2.5 am 5 hs wellbutrin 100 mg am 10/08/2023 The patient reports depression, we will continue with Trintellix and we will lower Zyprexa up to 2.5 p.o. q.h.s. and keep p.r.n. 2.5 Zyprexa as needed for psychosis. 10/09 keep same treatment 10/10 restart propanolol 10mg po TID for essential tremors. 10/11 continue tx. Reason for continued inpatient stay Substantial Risk for: inability to function Time Spent With Patient Time: Total time managing care of this patient today ____ minutes.
[2023-10-11 20:00] VITALS: BP 112/57; PULSE 69; RESP 18; TEMP 36.8; O2SAT 95
[2023-10-11] MEDS: Brimonidine Tartrate 0.2% Oph 5 ML BOTTLE 1 DROP EYE-BOTH (20:37)
[2023-10-11] MEDS: OLANZapine 2.5 MG TABLET PO (20:38)
[2023-10-11] MEDS: hydrOXYzine HCL 25 MG TABLET PO (20:38)
[2023-10-11] MEDS: Melatonin 3 MG TABLET 6 MG PO (20:38)
[2023-10-11] MEDS: Ascorbic Acid 500 MG TABLET 2000 MG PO (20:38)
[2023-10-11] MEDS: LORazepam 0.5 MG TABLET PO (20:38)
[2023-10-12] MEDS: Omeprazole 20 MG CAPSULE.DR PO (05:11)
[2023-10-12 07:51] VITALS: BP 123/70; PULSE 87; RESP 18; TEMP 36.7; O2SAT 97
[2023-10-12] MEDS: Multivitamin TABLET 1 TAB PO (08:34)
[2023-10-12] MEDS: lisinopriL 5 MG TABLET 15 MG PO (08:34)
[2023-10-12] MEDS: Tamsulosin HCL 0.4 MG CAPSULE PO (08:34)
[2023-10-12] MEDS: Fluticasone Propionate Nasal 16 GM SPRAY 1 SPRAY NOSTRIL-B (08:35)
[2023-10-12] MEDS: Vortioxetine Hydrobromide 10 MG TABLET PO (08:35)
[2023-10-12] MEDS: buPROPion HCL 100 MG TABLET PO (08:35)
[2023-10-12] MEDS: Propranolol HCL 10 MG TABLET PO ×3 (08:35→22:05)
[2023-10-12] MEDS: amLODIPine Besylate 10 MG TABLET PO (08:35)
[2023-10-12] MEDS: Brimonidine Tartrate 0.2% Oph 5 ML BOTTLE 1 DROP EYE-BOTH (08:35)
[2023-10-12 15:03] VITALS: BP 102/62; PULSE 82
--- NOTE | 2023-10-12 16:37 | P.PNPSI_ITS ---
Subjective Subjective Date of Service: 10/12/23 Reason For Visit: Severe depression Subjective Notes: Conditional Voluntary Interim History: pt seen remains severely depressed withdrawn hopeless helpless pos PI Medication Compliance: Yes Mental Status Exam Mental Status Exam Narrative: Appearance: wearing hospital gown, anxious withdrawn but fearful and guarded passive si /no HI. Pt reports feeling weak. Appears internally preoccupied feels people avoiding her pos pi Bilat action tremors. Diagnostics Vital Signs (24Hr): Vital Signs - 24 hr 10/11/23 20:00 10/12/23 07:51 10/12/23 15:03 Temperature 98.2 F 98.1 F Pulse Rate 69 87 82 Respiratory Rate 18 18 Blood Pressure 112/57 L 123/70 102/62 Pulse Oximetry 95 97 Oxygen Delivery Method Room Air Room Air BMI result Body Mass Index 19.9 Labs 09/29/23 07:53 Imaging Radiology Impressions: ITS Impressions Head CT 10/08/23 16:26 IMPRESSION: No acute intracranial process seen. Medications Medications Current Medications Acetaminophen (Acetaminophen 325 Mg Tablet) 650 mg PO Q4H PRN PRN Reason: Pain, Severe (Pain Scale 7-10) Last Admin: 10/11/23 08:48 Dose: 650 mg Al Hydroxide/Mg Hydroxide (Magnesium Hydrox/Alum Hydrox 30 Ml Oral.Susp) 30 ml PO Q6H PRN PRN Reason: Heartburn/Nausea Amlodipine Besylate (Amlodipine Besylate 10 Mg Tablet) 10 mg PO DAILY [facility]; Protocol Last Admin: 10/12/23 08:35 Dose: 10 mg Ascorbic Acid (Ascorbic Acid 500 Mg Tablet) 2,000 mg PO BEDTIME [facility] Last Admin: 10/11/23 20:38 Dose: 2,000 mg Brimonidine Tartrate (Brimonidine Tartrate 0.2% Oph 5 Ml Bottle) 1 drop EYE- BOTH BID [facility] Last Admin: 10/12/23 08:35 Dose: 1 drop Bupropion HCl (Bupropion Hcl 100 Mg Tablet) 100 mg PO DAILY [facility] Last Admin: 10/12/23 08:35 Dose: 100 mg Fluticasone Propionate (Fluticasone Propionate Nasal 16 Gm [place]) 1 spray NOSTRIL-B BID [facility] Last Admin: 10/12/23 08:35 Dose: 1 spray Hydroxyzine HCl (Hydroxyzine Hcl 25 Mg Tablet) 25 mg PO Q6H PRN PRN Reason: Anxiety Last Admin: 10/11/23 20:38 Dose: 25 mg Lisinopril (Lisinopril 5 Mg Tablet) 15 mg PO DAILY [facility]; Protocol Last Admin: 10/12/23 08:34 Dose: 15 mg Lorazepam (Lorazepam 0.5 Mg Tablet) 0.5 mg PO Q4H PRN PRN Reason: Anxiety Last Admin: 10/08/23 16:25 Dose: 0.5 mg Lorazepam (Lorazepam 0.5 Mg Tablet) 0.5 mg PO BEDTIME [facility] Last Admin: 10/11/23 20:38 Dose: 0.5 mg Magnesium Hydroxide (Milk Of Magnesia 30 Ml Oral.Susp) 30 ml PO DAILY PRN PRN Reason: Constipation Last Admin: 10/06/23 21:25 Dose: 30 ml Magnesium Hydroxide (Milk Of Magnesia 30 Ml Oral.Susp) 30 ml PO DAILY PRN PRN Reason: Constipation Melatonin (Melatonin 3 Mg Tablet) 6 mg PO BEDTIME PRN PRN Reason: Insomnia Last Admin: 10/11/23 20:38 Dose: 6 mg Multivitamins/Vitamin C (Multivitamin Tablet) 1 tab PO DAILY [facility] Last Admin: 10/12/23 08:34 Dose: 1 tab Olanzapine (Olanzapine 2.5 Mg Tablet) 2.5 mg PO BID PRN PRN Reason: anxiety/restlessness Olanzapine (Olanzapine 2.5 Mg Tablet) 2.5 mg PO BEDTIME [facility] Last Admin: 10/11/23 20:38 Dose: 2.5 mg Omeprazole (Omeprazole 20 Mg Capsule.Dr) 20 mg PO DAILY@0630 [facility] Last Admin: 10/12/23 05:11 Dose: 20 mg Ondansetron HCl (Ondansetron Odt 4 Mg Tab.Rapdis) 4 mg TRANSLINGU Q8H PRN PRN Reason: Nausea and Vomiting Propranolol HCl (Propranolol Hcl 10 Mg Tablet) 10 mg PO TID [facility]; Protocol Last Admin: 10/12/23 15:05 Dose: 10 mg Tamsulosin HCl (Tamsulosin Hcl 0.4 Mg Capsule) 0.4 mg PO DAILY [facility] Last Admin: 10/12/23 08:34 Dose: 0.4 mg Vortioxetine (Vortioxetine Hydrobromide 10 Mg Tablet) 10 mg PO DAILY [facility] Last Admin: 10/12/23 08:35 Dose: 10 mg Allergies Allergies Allergy/AdvReac Type Severity Reaction Status Date / Time No Known Allergies Allergy Verified 08/27/23 10:27 Assessment & Plan Assessment & Plan (1) Bipolar II disorder: Status: Inactive Code(s): F31.81 - Bipolar II disorder (2) Delirium: Status: Resolved Code(s): R41.0 - Disorientation, unspecified Plan The patient is an elderly female with a past history of mood disorder, anxiety personality disorder NOS who was brought into the hospital for altered mental status after a short course of as provide of for depression. 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 After being medically cleared she was transferring to this facility for psychiatric stabilization. Plan 1. Gather collateral information. 2. Continue Risperdal and antidepressants as started the medicine. 3. Regular blood work and reassessment with results. 4. 15 minute checks. 5. Speech and swallow evaluation for possible change of diet. 09/30/23 add wellbutrin 75 mg non serotonergic trintellix 5 mg remains with some PI but improved encourage phys rehab 10/01/23 Patient shows improved mood and energy ambulating better more active. Concerns regarding her short-term memory remembering names and fears regarding strength in her has which do seem somewhat bilaterally diminished and some numbness tingling seems to be improving cont trintellix wellbutrin 10/02/2023 Patient generally trending upwards generally less depressed but complicated by periods of paranoia and then apprehension depression and despair feels like she can trust staff and somehow they are intentionally playing with her in some way denies self-harm Recent confusional episode lasting a number of weeks question all serotonergic syndrome delirium question related to S ketamine Encourage out of bed ambulation PT consult increase in Risperdal had recently been on Latuda Vraylar and Rexulti without clear benefit would maintain current low-dose Trintellix 5 mg Wellbutrin recently started 75 mg 10/03: Continue current management and treatment plan. 10/04: Continue current management and treatment plan. Medication changes per primary team Dr. Shearer that knows the patient well. 10/05/2023 Increase Trintellix to 10 mg increase Wellbutrin to 100 mg consider change Risperdal to olanzapine or Seroquel strongly consider ECT patient having difficulty with trust 10/06/23 stop risperadol olanzapine hs and prn 10/07/23 Pt anxious depressed inc trintellix 10 mg inc olanzapine 2.5 am 5 hs wellbutrin 100 mg am 10/08/2023 The patient reports depression, we will continue with Trintellix and we will lower Zyprexa up to 2.5 p.o. q.h.s. and keep p.r.n. 2.5 Zyprexa as needed for psychosis. 10/09 keep same treatment 10/10 restart propanolol 10mg po TID for essential tremors. 10/11 continue tx. 10/12/23 hopeless helpless pos pi inc olanzapine suspicious anxious ? ect Reason for continued inpatient stay Substantial Risk for: harm to self, inability to function, rapid decompensation and med/psych decompensation Time Spent With Patient Time: Total time managing care of this patient today ____ minutes.
[2023-10-12] MEDS: OLANZapine 2.5 MG TABLET PO ×2 (17:19→22:05)
[2023-10-12 18:00] VITALS: BP 126/60; PULSE 67; RESP 20; TEMP 36.6; O2SAT 95
[2023-10-12] MEDS: LORazepam 0.5 MG TABLET PO (22:04)
[2023-10-12] MEDS: Ascorbic Acid 500 MG TABLET 2000 MG PO (22:04)
[2023-10-12] MEDS: Sennosides/Docusate Sodium TABLET 1 TAB PO (22:04)
--- NOTE | 2023-10-13 | ECG_ITS ---
Test Reason : CP Blood Pressure : / mmHG Vent. Rate : 069 BPM Atrial Rate : 069 BPM P-R Int : 150 ms QRS Dur : 078 ms QT Int : 394 ms P-R-T Axes : 018 057 050 degrees QTc Int : 422 ms Normal sinus rhythm Normal ECG When compared with ECG of 12-SEP-2023 08:51, Vent. rate has decreased BY [address] no longer depressed in Inferior leads T wave amplitude has increased in Inferior leads Referred By: Arnold Reza Electronically Signed By:LÓPEZ NARVAEZ MD
[2023-10-13] MEDS: Omeprazole 20 MG CAPSULE.DR PO (05:53)
[2023-10-13 08:32] VITALS: BP 103/56; PULSE 76; RESP 16; TEMP 36.6; O2SAT 96
[2023-10-13] MEDS: amLODIPine Besylate 10 MG TABLET PO (08:36)
[2023-10-13] MEDS: Multivitamin TABLET 1 TAB PO (08:36)
[2023-10-13] MEDS: Sennosides/Docusate Sodium TABLET 1 TAB PO ×2 (08:37→21:27)
[2023-10-13] MEDS: Vortioxetine Hydrobromide 10 MG TABLET PO (08:37)
[2023-10-13] MEDS: Propranolol HCL 10 MG TABLET PO ×3 (08:37→21:27)
[2023-10-13] MEDS: lisinopriL 5 MG TABLET 15 MG PO (08:38)
[2023-10-13] MEDS: buPROPion HCL 100 MG TABLET PO (08:38)
[2023-10-13] MEDS: Tamsulosin HCL 0.4 MG CAPSULE PO (08:38)
[2023-10-13] MEDS: Brimonidine Tartrate 0.2% Oph 5 ML BOTTLE 1 DROP EYE-BOTH ×2 (08:39→21:28)
--- NOTE | 2023-10-13 10:40 | P.PNPSI_ITS ---
Subjective Subjective Date of Service: 10/13/23 Reason For Visit: Severe depression Subjective Notes: Conditional Voluntary Guardianship: No Interim History: The patient is seen in psychiatric follow-up literature reviewed regarding ECT with patient's son and and patient. Patient has not responded to multiple is medical treatments including antidepressants from multiple categories antipsychotic augmentation and mood stabilizer augmentation. Patient also had a confusional event question of serous syndrome or other delirium question related to use of spravato unclear. The patient did have some significant memory dysfunction with previous ECT however she was on low-dose lithium at that time have reviewed risks benefits alternatives with patient and family. Patient remains severely depressed with paranoia thinking people are treating her differently a are giving her her medication her Kerr was 24 Medication Compliance: Yes Attending Groups: Intermittent Review of Systems Fall risk fatigue Mental Status Exam Mental Status Exam Narrative: Appearance: wearing hospital gown, anxious withdrawn but fearful and guarded she is alert and oriented passive si /no HI. Pt reports feeling weak. Appears internally preoccupied feels people avoiding her pos pi Bilat action tremors. Patient in deep despair hopeless helpless despondent she is asking for ECT she does appear to understand risks benefits alternatives which have been reviewed Diagnostics Vital Signs (24Hr): Vital Signs - 24 hr 10/12/23 15:03 10/12/23 18:00 10/13/23 08:32 Temperature 98 F 97.9 F Pulse Rate 82 67 76 Respiratory Rate 20 16 Blood Pressure 102/62 126/60 103/56 L Pulse Oximetry 95 96 Oxygen Delivery Method Room Air Room Air BMI result Body Mass Index 19.9 Labs 10/13/23 13:22 10/13/23 13:22 Imaging Radiology Impressions: ITS Impressions Head CT 10/08/23 16:26 IMPRESSION: No acute intracranial process seen. Medications Medications Current Medications Acetaminophen (Acetaminophen 325 Mg Tablet) 650 mg PO Q4H PRN PRN Reason: Pain, Severe (Pain Scale 7-10) Last Admin: 10/11/23 08:48 Dose: 650 mg Al Hydroxide/Mg Hydroxide (Magnesium Hydrox/Alum Hydrox 30 Ml Oral.Susp) 30 ml PO Q6H PRN PRN Reason: Heartburn/Nausea Amlodipine Besylate (Amlodipine Besylate 10 Mg Tablet) 10 mg PO DAILY [facility]; Protocol Last Admin: 10/13/23 08:36 Dose: 10 mg Ascorbic Acid (Ascorbic Acid 500 Mg Tablet) 2,000 mg PO BEDTIME [facility] Last Admin: 10/12/23 22:04 Dose: 2,000 mg Brimonidine Tartrate (Brimonidine Tartrate 0.2% Oph 5 Ml Bottle) 1 drop EYE- BOTH BID [facility] Last Admin: 10/13/23 08:39 Dose: 1 drop Bupropion HCl (Bupropion Hcl 100 Mg Tablet) 100 mg PO DAILY [facility] Last Admin: 10/13/23 08:38 Dose: 100 mg Fluticasone Propionate (Fluticasone Propionate Nasal 16 Gm [place]) 1 spray NOSTRIL-B BID [facility] Last Admin: 10/13/23 09:01 Dose: Not Given Hydroxyzine HCl (Hydroxyzine Hcl 25 Mg Tablet) 25 mg PO Q6H PRN PRN Reason: Anxiety Last Admin: 10/11/23 20:38 Dose: 25 mg Lisinopril (Lisinopril 5 Mg Tablet) 15 mg PO DAILY [facility]; Protocol Last Admin: 10/13/23 08:38 Dose: 15 mg Lorazepam (Lorazepam 0.5 Mg Tablet) 0.5 mg PO Q4H PRN PRN Reason: Anxiety Last Admin: 10/08/23 16:25 Dose: 0.5 mg Magnesium Hydroxide (Milk Of Magnesia 30 Ml Oral.Susp) 30 ml PO DAILY PRN PRN Reason: Constipation Last Admin: 10/06/23 21:25 Dose: 30 ml Magnesium Hydroxide (Milk Of Magnesia 30 Ml Oral.Susp) 30 ml PO DAILY PRN PRN Reason: Constipation Melatonin (Melatonin 3 Mg Tablet) 6 mg PO BEDTIME PRN PRN Reason: Insomnia Last Admin: 10/11/23 20:38 Dose: 6 mg Multivitamins/Vitamin C (Multivitamin Tablet) 1 tab PO DAILY [facility] Last Admin: 10/13/23 08:36 Dose: 1 tab Olanzapine (Olanzapine 2.5 Mg Tablet) 2.5 mg PO BID PRN PRN Reason: anxiety/restlessness Last Admin: 10/12/23 17:19 Dose: 2.5 mg Olanzapine (Olanzapine 2.5 Mg Tablet) 2.5 mg PO BEDTIME [facility] Last Admin: 10/12/23 22:05 Dose: 2.5 mg Olanzapine (Olanzapine 2.5 Mg Tablet) 2.5 mg PO DAILY [facility] Omeprazole (Omeprazole 20 Mg Capsule.Dr) 20 mg PO DAILY@0630 [facility] Last Admin: 10/13/23 05:53 Dose: 20 mg Ondansetron HCl (Ondansetron Odt 4 Mg Tab.Rapdis) 4 mg TRANSLINGU Q8H PRN PRN Reason: Nausea and Vomiting Propranolol HCl (Propranolol Hcl 10 Mg Tablet) 10 mg PO TID [facility]; Protocol Last Admin: 10/13/23 08:37 Dose: 10 mg Senna/Docusate Sodium (Sennosides/Docusate Sodium Tablet) 1 tab PO BID [facility] Last Admin: 10/13/23 08:37 Dose: 1 tab Tamsulosin HCl (Tamsulosin Hcl 0.4 Mg Capsule) 0.4 mg PO DAILY [facility] Last Admin: 10/13/23 08:38 Dose: 0.4 mg Vortioxetine (Vortioxetine Hydrobromide 10 Mg Tablet) 10 mg PO DAILY [facility] Last Admin: 10/13/23 08:37 Dose: 10 mg Allergies Allergies Allergy/AdvReac Type Severity Reaction Status Date / Time No Known Allergies Allergy Verified 08/27/23 10:27 Assessment & Plan Assessment & Plan (1) Bipolar II disorder: Status: Inactive Code(s): F31.81 - Bipolar II disorder (2) Delirium: Status: Resolved Code(s): R41.0 - Disorientation, unspecified Plan The patient is an elderly female with a past history of mood disorder, anxiety personality disorder NOS who was brought into the hospital for altered mental status after a short course of as provide of for depression. 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 After being medically cleared she was transferring to this facility for psychiatric stabilization. Plan 1. Gather collateral information. 2. Continue Risperdal and antidepressants as started the medicine. 3. Regular blood work and reassessment with results. 4. 15 minute checks. 5. Speech and swallow evaluation for possible change of diet. 09/30/23 add wellbutrin 75 mg non serotonergic trintellix 5 mg remains with some PI but improved encourage phys rehab 10/01/23 Patient shows improved mood and energy ambulating better more active. Concerns regarding her short-term memory remembering names and fears regarding strength in her has which do seem somewhat bilaterally diminished and some numbness tingling seems to be improving cont trintellix wellbutrin 10/02/2023 Patient generally trending upwards generally less depressed but complicated by periods of paranoia and then apprehension depression and despair feels like she can trust staff and somehow they are intentionally playing with her in some way denies self-harm Recent confusional episode lasting a number of weeks question all serotonergic syndrome delirium question related to S ketamine Encourage out of bed ambulation PT consult increase in Risperdal had recently been on Latuda Vraylar and Rexulti without clear benefit would maintain current low-dose Trintellix 5 mg Wellbutrin recently started 75 mg 10/03: Continue current management and treatment plan. 10/04: Continue current management and treatment plan. Medication changes per primary team Dr. Shearer that knows the patient well. 10/05/2023 Increase Trintellix to 10 mg increase Wellbutrin to 100 mg consider change Risperdal to olanzapine or Seroquel strongly consider ECT patient having difficulty with trust 10/06/23 stop risperadol olanzapine hs and prn 10/07/23 Pt anxious depressed inc trintellix 10 mg inc olanzapine 2.5 am 5 hs wellbutrin 100 mg am 10/08/2023 The patient reports depression, we will continue with Trintellix and we will lower Zyprexa up to 2.5 p.o. q.h.s. and keep p.r.n. 2.5 Zyprexa as needed for psychosis. 10/09 keep same treatment 10/10 restart propanolol 10mg po TID for essential tremors. 10/11 continue tx. 10/12/23 hopeless helpless pos pi inc olanzapine suspicious anxious ? ect 10/13/2023 Patient hopeless helpless despondent severely depressed has not responded to multiple antidepressant trials and augmentation strategies. She appears delusional the depressed hopeless helpless with thoughts that she would be better off denies current plan or intent reviewed risks benefits alternatives with patient son and patient is asking for ECT no medical contraindications. She did has some significant amnesia will maintain right unilateral no more than 2 times a week try and maintain at 0.25 pulse width there seemed to be few alternatives at this point EKG unremarkable Reason for continued inpatient stay Substantial Risk for: harm to self, rapid decompensation and med/psych decompensation Time Spent With Patient Time: Total time managing care of this patient today ____ minutes.
[2023-10-13] MEDS: OLANZapine 2.5 MG TABLET PO ×2 (11:51→21:27)
--- NOTE | 2023-10-13 12:15 | HO.PM.IMCN ---
History of Present Illness Data of Consult Service Date: 10/13/23 Primary Care Provider: Unknown Physician HPI Reason for consult: ECT clearance Pt is a 72-year-old female with a PMH significant for?HTN, essential tremor, GED, depression, and bipolar 2 disorder admitted to [facility] psych for worsening depression after an initial prolonged hospital stay for serotonin syndrome likely triggered by medication changes in the community. Medical evaluation for ECT clearance. Pt states that she previously underwent ECT many years ago, and is unable to specify exactly when. Reports she had retrograde amnesia from the treatments and did not think it was very helpful then, but is willing to try it again. Denies a PMH of cerebral hemorrhage or stroke, CAD, space-occupying intracranial lesion, bleeding or otherwise unstable vascular aneurysm. No history of seizure disorder, TBI, or severe pulmonary condition. Pt denies any past problems with anesthesia. ?Pt denies chest pain/pressure, SOB, dizziness or lightheadedness. No abdominal pain, hematochezia, melena. EKG negative for acute ischemia and prolonged QTc. Received CT of head 5 days prior on 10/08, negative for any acute intracranial process. Labs reviewed, grossly unremarkable. Review of Systems Review of Systems: Pt has no acute medical complaints at this time [facility] Medical History Urinary tract infection Depression Hypothyroidism ZAC (generalized anxiety disorder) Hypertension ADHD (attention deficit hyperactivity disorder) Family History Other No pertinent family history Surgical History H/O thumb surgery H/O cone biopsy of cervix Social History Household Members: Spouse Household Members Other:: And two cats. Housing: House Do you presently have visiting nurse or other home services: No Unable to assess alcohol history related to: Unknown Alcohol intake: never Comment: 1:1 sitter Patient Tobacco Use Status: Former Tobacco user Quit Date: 20 years [facility] Tobacco use type: Cigarette Years Smoked: 20 Smoked in Last 30 Days: No e-Cigarette/Vaping Use: Never Used Patient Interested in Nicotine Replacement: No (n/a) Patient Given Instructions on How to Stop Smoking: No (n/a) Second Hand Smoke Exposure: No Use of substances other than those prescribed or required for medical reasons: No Substance Use Type: Former Substance User and Marijuana Last Used Substance Other:: 2 years Currently Displaying Signs/Symptoms of Drug Intoxication Withdrawal: No Any prior treatment program specific to substance use: No Have you been hit, kicked, punched, or otherwise hurt by someone within the past year? If so, by whom?: No Do you feel safe in your current relationship?: Yes Is there a partner from a previous relationship who is making you feel unsafe now?: No Are you made to feel afraid or neglected: No Spiritual Healthcare Practices: no Episcopalian Healthcare Practices: no Cultural Healthcare Practices: no Advance Directives: No Advance Directives Information Provided: No (declined) Advance Directives on File: No Do you have thoughts of harming others: None Do you have a plan to hurt others: No Plan Recently lost weight without trying: Yes How much weight loss: Unsure Eating poorly because of decreased appetite: Yes Nutrition screen score: 5 Patient : No : No Poor oral hygiene: No service: No Sexual orientation: Straight/Heterosexual Meds Allergies Allergy/AdvReac Type Severity Reaction Status Date / Time No Known Allergies Allergy Verified 08/27/23 10:27 Active Medications: Current Medications Acetaminophen (Acetaminophen 325 Mg Tablet) 650 mg PO Q4H PRN PRN Reason: Pain, Severe (Pain Scale 7-10) Last Admin: 10/11/23 08:48 Dose: 650 mg Al Hydroxide/Mg Hydroxide (Magnesium Hydrox/Alum Hydrox 30 Ml Oral.Susp) 30 ml PO Q6H PRN PRN Reason: Heartburn/Nausea Amlodipine Besylate (Amlodipine Besylate 10 Mg Tablet) 10 mg PO DAILY [facility]; Protocol Last Admin: 10/13/23 08:36 Dose: 10 mg Ascorbic Acid (Ascorbic Acid 500 Mg Tablet) 2,000 mg PO BEDTIME [facility] Last Admin: 10/12/23 22:04 Dose: 2,000 mg Brimonidine Tartrate (Brimonidine Tartrate 0.2% Oph 5 Ml Bottle) 1 drop EYE-BOTH BID [facility] Last Admin: 10/13/23 08:39 Dose: 1 drop Bupropion HCl (Bupropion Hcl 100 Mg Tablet) 100 mg PO DAILY [facility] Last Admin: 10/13/23 08:38 Dose: 100 mg Fluticasone Propionate (Fluticasone Propionate Nasal 16 Gm [place]) 1 spray NOSTRIL-B BID [facility] Last Admin: 10/13/23 09:01 Dose: Not Given Hydroxyzine HCl (Hydroxyzine Hcl 25 Mg Tablet) 25 mg PO Q6H PRN PRN Reason: Anxiety Last Admin: 10/11/23 20:38 Dose: 25 mg Lisinopril (Lisinopril 5 Mg Tablet) 15 mg PO DAILY [facility]; Protocol Last Admin: 10/13/23 08:38 Dose: 15 mg Lorazepam (Lorazepam 0.5 Mg Tablet) 0.5 mg PO Q4H PRN PRN Reason: Anxiety Last Admin: 10/08/23 16:25 Dose: 0.5 mg Magnesium Hydroxide (Milk Of Magnesia 30 Ml Oral.Susp) 30 ml PO DAILY PRN PRN Reason: Constipation Last Admin: 10/06/23 21:25 Dose: 30 ml Magnesium Hydroxide (Milk Of Magnesia 30 Ml Oral.Susp) 30 ml PO DAILY PRN PRN Reason: Constipation Melatonin (Melatonin 3 Mg Tablet) 6 mg PO BEDTIME PRN PRN Reason: Insomnia Last Admin: 10/11/23 20:38 Dose: 6 mg Multivitamins/Vitamin C (Multivitamin Tablet) 1 tab PO DAILY [facility] Last Admin: 10/13/23 08:36 Dose: 1 tab Olanzapine (Olanzapine 2.5 Mg Tablet) 2.5 mg PO BID PRN PRN Reason: anxiety/restlessness Last Admin: 10/12/23 17:19 Dose: 2.5 mg Olanzapine (Olanzapine 2.5 Mg Tablet) 2.5 mg PO BEDTIME [facility] Last Admin: 10/12/23 22:05 Dose: 2.5 mg Olanzapine (Olanzapine 2.5 Mg Tablet) 2.5 mg PO DAILY [facility] Last Admin: 10/13/23 11:51 Dose: 2.5 mg Omeprazole (Omeprazole 20 Mg Capsule.Dr) 20 mg PO DAILY@0630 [facility] Last Admin: 10/13/23 05:53 Dose: 20 mg Ondansetron HCl (Ondansetron Odt 4 Mg Tab.Rapdis) 4 mg TRANSLINGU Q8H PRN PRN Reason: Nausea and Vomiting Propranolol HCl (Propranolol Hcl 10 Mg Tablet) 10 mg PO TID [facility]; Protocol Last Admin: 10/13/23 08:37 Dose: 10 mg Senna/Docusate Sodium (Sennosides/Docusate Sodium Tablet) 1 tab PO BID [facility] Last Admin: 10/13/23 08:37 Dose: 1 tab Tamsulosin HCl (Tamsulosin Hcl 0.4 Mg Capsule) 0.4 mg PO DAILY [facility] Last Admin: 10/13/23 08:38 Dose: 0.4 mg Thiamine HCl (Thiamine Hcl 100 Mg Tablet) 100 mg PO DAILY [facility] Vortioxetine (Vortioxetine Hydrobromide 10 Mg Tablet) 10 mg PO DAILY [facility] Last Admin: 10/13/23 08:37 Dose: 10 mg Home Medications Medication Instructions Recorded Confirmed Last Taken Type amlodipine 5 mg tablet 10 mg PO DAILY 10/23/22 08/27/23 10/23/22 History fluticasone propionate 50 1 spray intranasal BID 08/27/23 08/27/23 Unknown History mcg/actuation nasal spray,suspension propranolol 20 mg tablet 20 mg PO BID 08/27/23 08/27/23 Unknown History Physical Exam Vital Signs and Narrative: Vital Signs: Last Vital Signs Temp 97.9 F 10/13/23 08:32 Pulse 76 10/13/23 08:32 Resp 16 10/13/23 08:32 BP 103/56 L 10/13/23 08:32 Pulse Ox 96 10/13/23 08:32 O2 Del Method Room Air 10/13/23 08:32 BMI result Body Mass Index 19.9 General: AOx3, no acute distress Resp: CTA bilaterally CVS: S1, S2, RRR GI: +BS, NT, no distention Skin: Warm, dry Neuro: Cranial nerves II-XII grossly intact bilaterally. Motor grossly intact bilaterally Extremities: No edema Psych: Flat affect Results Labs 10/13/23 13:22 10/13/23 13:22 Assessment and Plan (1) Pre-op evaluation: Status: Acute Plan Pt is a 72-year-old female with a PMH significant for?HTN, essential tremor, GED, depression, and bipolar 2 disorder admitted to [facility] psych for worsening depression after an initial prolonged hospital stay for serotonin syndrome likely triggered by medication changes in the community. Medical evaluation for ECT clearance. Mood disorder/ECT clearance Plan as per psychiatry No medical contraindication to patient undergoing ECT based on exam and patient history Thank you for allowing us to participate in the care of this patient. Signing off at this time. Please re-consult if any acute complaints or issues arise.
[2023-10-13] MEDS: Thiamine HCL 100 MG TABLET PO (13:08)
[2023-10-13 13:29] LABS: MANUAL DIFF FLAG NO
[2023-10-13 13:33] LABS: Basophils Percent Auto 0.4 % (0-2); Eosinophils Absolute Auto 0.2 X10*3/uL (0.0-0.4); Eosinophils Percent Auto 2.4 % (0-4); Hemoglobin 11.4 g/dl (12.0-16.0); Imm Gran Abs Auto 0.04 X10*3/uL (0.00-0.03); Imm Gran Pct Auto 0.5 % (0.0-0.4); Lymphocytes Absolute Auto 1.1 X10*3/uL (1.2-4.9); Lymphocytes Percent Auto 14.1 % (20-40); Mean Corpuscular HGB Conc 31.7 g/dl (31.0-35.0); Mean Corpuscular Hemoglobin 29.1 pg (27.0-33.0); Mean Corpuscular Volume 91.8 fL (80.0-98.0); Mean Platelet Volume 9.5 fL (9.4-12.3); Monocytes Absolute Auto 0.7 X10*3/uL (0.1-1.2); Monocytes Percent Auto 8.4 % (2-11); Neutrophils Absolute Auto 5.9 x10*3/uL (2.0-8.3); Neutrophils Percent Auto 74.2 % (45-73); Platelet Count 290 X10*3/uL (160-400); Red Blood Count 3.92 X10*6/uL (4.20-5.50); Red Cell Distribution Width 14.1 % (11.0-16.0)
[2023-10-13 13:55] LABS: Alanine Aminotransferase 35 U/L (0-31); Albumin Level 3.1 g/dL (3.5-5.0); Alkaline Phosphatase 86 U/L (39-117); Anion Gap 9 (12-20); Aspartate Amino Transferase 21 U/L (5-31); Bilirubin Total 0.2 mg/dL (0.0-1.0); Blood Urea Nitrogen 16 mg/dL (9-16); Calcium 9.6 mg/dL (8.4-10.2); Carbon Dioxide 30 mmol/L (22-29); Chloride 105 mmol/L (96-108); Creatinine Clr Calc Pharmacy 36.6; Estimated Glomerular Filt Rate 53; Glucose Random 115 mg/dL (60-115); Potassium 4.9 mmol/L (3.3-5.1); Sodium 139 mmol/L (135-145); Total Protein 5.5 g/dL (6.5-8.0)
[2023-10-13 15:36] VITALS: BP 126/60; PULSE 71
[2023-10-13 18:00] VITALS: BP 124/60; PULSE 66; RESP 16; TEMP 36.1; O2SAT 96
[2023-10-13] MEDS: Ascorbic Acid 500 MG TABLET 2000 MG PO (21:21)
[2023-10-13] MEDS: Melatonin 3 MG TABLET 6 MG PO (21:26)
[2023-10-13] MEDS: Fluticasone Propionate Nasal 16 GM SPRAY 1 SPRAY NOSTRIL-B (21:28)
[2023-10-14] VITALS (12 sets, daily range): BP systolic 111–149; BP diastolic 55–74; PULSE 60–79; RESP 12–18; TEMP 36.3–36.7; O2SAT 93–98
--- NOTE | 2023-10-14 06:57 | P.CONAN_ITS ---
[facility] Active Problems Active Problems: All Active Problems (Updated 10/06/23 @ 00:04 by Juliana German) Major depressive disorder, recurrent severe without psychotic features (Acute) Personality disorder (Acute) Organic catatonia (Acute) Abnormal EKG (Acute) Odynophagia (Acute) Paranoia (Acute) Dysphagia (Acute) Serotonin syndrome (Acute) Ataxia (Acute) Tremors of nervous system (Acute) Major depression in full remission (Acute) Depression, major, severe recurrence (Acute) Memory deficit (Acute) ADHD (attention deficit hyperactivity disorder) (Acute) ZAC (generalized anxiety disorder) (Acute) Depression (Acute) Pre-op evaluation (Acute) Acute bacterial conjunctivitis of both eyes (Acute) Hypercalcemia (Acute) Hypothyroidism (Acute) Leukocytosis (Acute) Hypertension (Chronic) Past Medical History Medical History Urinary tract infection Depression Hypothyroidism ZAC (generalized anxiety disorder) Hypertension ADHD (attention deficit hyperactivity disorder) Family History Family History Other No pertinent family history Family history of problems with anesthesia: No Surgical History Surgical History H/O thumb surgery H/O cone biopsy of cervix History of Problems with Anesthesia: No Social History Social History Household Members: Spouse Household Members Other:: And two cats. Housing: House Do you presently have visiting nurse or other home services: No Unable to assess alcohol history related to: Unknown Alcohol intake: never Comment: 1:1 sitter Patient Tobacco Use Status: Former Tobacco user Quit Date: 20 years [facility] Tobacco use type: Cigarette Years Smoked: 20 Smoked in Last 30 Days: No e-Cigarette/Vaping Use: Never Used Patient Interested in Nicotine Replacement: No (n/a) Patient Given Instructions on How to Stop Smoking: No (n/a) Second Hand Smoke Exposure: No Use of substances other than those prescribed or required for medical reasons: No Substance Use Type: Former Substance User and Marijuana Last Used Substance Other:: 2 years Currently Displaying Signs/Symptoms of Drug Intoxication Withdrawal: No Any prior treatment program specific to substance use: No Have you been hit, kicked, punched, or otherwise hurt by someone within the past year? If so, by whom?: No Do you feel safe in your current relationship?: Yes Is there a partner from a previous relationship who is making you feel unsafe now?: No Are you made to feel afraid or neglected: No Spiritual Healthcare Practices: no L[employer] Day Healthcare Practices: no Cultural Healthcare Practices: no Advance Directives: No Advance Directives Information Provided: No (declined) Advance Directives on File: No Do you have thoughts of harming others: None Do you have a plan to hurt others: No Plan Recently lost weight without trying: Yes How much weight loss: Unsure Eating poorly because of decreased appetite: Yes Nutrition screen score: 5 Patient : No : No Poor oral hygiene: No service: No Sexual orientation: Straight/Heterosexual Meds Allergies Allergy/AdvReac Type Severity Reaction Status Date / Time No Known Allergies Allergy Verified 08/27/23 10:27 Active Medications: Current Medications Acetaminophen (Acetaminophen 325 Mg Tablet) 650 mg PO Q4H PRN PRN Reason: Pain, Severe (Pain Scale 7-10) Last Admin: 10/11/23 08:48 Dose: 650 mg Al Hydroxide/Mg Hydroxide (Magnesium Hydrox/Alum Hydrox 30 Ml Oral.Susp) 30 ml PO Q6H PRN PRN Reason: Heartburn/Nausea Amlodipine Besylate (Amlodipine Besylate 10 Mg Tablet) 10 mg PO DAILY [facility]; Protocol Last Admin: 10/13/23 08:36 Dose: 10 mg Ascorbic Acid (Ascorbic Acid 500 Mg Tablet) 2,000 mg PO BEDTIME [facility] Last Admin: 10/13/23 21:21 Dose: 2,000 mg Brimonidine Tartrate (Brimonidine Tartrate 0.2% Oph 5 Ml Bottle) 1 drop EYE- BOTH BID [facility] Last Admin: 10/13/23 21:28 Dose: 1 drop Bupropion HCl (Bupropion Hcl 100 Mg Tablet) 100 mg PO DAILY [facility] Last Admin: 10/13/23 08:38 Dose: 100 mg Fluticasone Propionate (Fluticasone Propionate Nasal 16 Gm [place]) 1 spray NOSTRIL-B BID [facility] Last Admin: 10/13/23 21:28 Dose: 1 spray Hydroxyzine HCl (Hydroxyzine Hcl 25 Mg Tablet) 25 mg PO Q6H PRN PRN Reason: Anxiety Last Admin: 10/11/23 20:38 Dose: 25 mg Lisinopril (Lisinopril 5 Mg Tablet) 15 mg PO DAILY [facility]; Protocol Last Admin: 10/13/23 08:38 Dose: 15 mg Lorazepam (Lorazepam 0.5 Mg Tablet) 0.5 mg PO Q4H PRN PRN Reason: Anxiety Last Admin: 10/08/23 16:25 Dose: 0.5 mg Magnesium Hydroxide (Milk Of Magnesia 30 Ml Oral.Susp) 30 ml PO DAILY PRN PRN Reason: Constipation Last Admin: 10/06/23 21:25 Dose: 30 ml Magnesium Hydroxide (Milk Of Magnesia 30 Ml Oral.Susp) 30 ml PO DAILY PRN PRN Reason: Constipation Melatonin (Melatonin 3 Mg Tablet) 6 mg PO BEDTIME PRN PRN Reason: Insomnia Last Admin: 10/13/23 21:26 Dose: 6 mg Multivitamins/Vitamin C (Multivitamin Tablet) 1 tab PO DAILY [facility] Last Admin: 10/13/23 08:36 Dose: 1 tab Olanzapine (Olanzapine 2.5 Mg Tablet) 2.5 mg PO BID PRN PRN Reason: anxiety/restlessness Last Admin: 10/12/23 17:19 Dose: 2.5 mg Olanzapine (Olanzapine 2.5 Mg Tablet) 2.5 mg PO BEDTIME [facility] Last Admin: 10/13/23 21:27 Dose: 2.5 mg Olanzapine (Olanzapine 2.5 Mg Tablet) 2.5 mg PO DAILY [facility] Last Admin: 10/13/23 11:51 Dose: 2.5 mg Omeprazole (Omeprazole 20 Mg Capsule.Dr) 20 mg PO DAILY@0630 [facility] Last Admin: 10/13/23 05:53 Dose: 20 mg Ondansetron HCl (Ondansetron Odt 4 Mg Tab.Rapdis) 4 mg TRANSLINGU Q8H PRN PRN Reason: Nausea and Vomiting Propranolol HCl (Propranolol Hcl 10 Mg Tablet) 10 mg PO TID [facility]; Protocol Last Admin: 10/13/23 21:27 Dose: 10 mg Senna/Docusate Sodium (Sennosides/Docusate Sodium Tablet) 1 tab PO BID [facility] Last Admin: 10/13/23 21:27 Dose: 1 tab Tamsulosin HCl (Tamsulosin Hcl 0.4 Mg Capsule) 0.4 mg PO DAILY [facility] Last Admin: 10/13/23 08:38 Dose: 0.4 mg Thiamine HCl (Thiamine Hcl 100 Mg Tablet) 100 mg PO DAILY [facility] Last Admin: 10/13/23 13:08 Dose: 100 mg Vortioxetine (Vortioxetine Hydrobromide 10 Mg Tablet) 10 mg PO DAILY [facility] Last Admin: 10/13/23 08:37 Dose: 10 mg Home Medications Medication Instructions Recorded Confirmed Last Taken Type amlodipine 5 mg tablet 10 mg PO DAILY 10/23/22 08/27/23 10/23/22 History fluticasone propionate 50 1 spray intranasal BID 08/27/23 08/27/23 Unknown History mcg/actuation nasal spray,suspension propranolol 20 mg tablet 20 mg PO BID 08/27/23 08/27/23 Unknown History Exam Height,Weight and Vital Signs: Height 5 ft 1 in Weight 47.7 kg Last Vital Signs Temp 97.9 F 10/14/23 06:52 Pulse 60 10/14/23 06:52 Resp 12 10/14/23 06:52 BP 134/63 10/14/23 06:52 Pulse Ox 94 10/14/23 06:52 O2 Del Method Room Air 10/14/23 06:52 Pertinent Lab Results Pertinent Lab Results: Laboratory Tests 09/28/23 09/29/23 10/13/23 14:09 07:53 13:22 WBC 8.0 RBC 3.92 L Hgb 11.4 L Hct 36.0 L MCV 91.8 MCH 29.1 MCHC 31.7 RDW 14.1 Plt Count 290 MPV 9.5 Immature Gran % (Auto) 0.5 H Neut % (Auto) 74.2 H Lymph % (Auto) 14.1 L Will % (Auto) 8.4 Eos % (Auto) 2.4 Baso % (Auto) 0.4 Lymph # (Auto) 1.1 L Will # (Auto) 0.7 Eos # (Auto) 0.2 Baso # (Auto) 0.0 Abs Immat Gran (auto) 0.04 H Absolute Neuts (auto) 5.9 Absolute Nucleated RBC 0.000 Nucleated RBC % (auto) 0.0 Sodium 144 139 Potassium 4.0 4.9 D Chloride 105 105 Carbon Dioxide 31 H 30 H Anion Gap 12 9 L BUN 14 16 Creatinine 0.82 0.76 1.03 Estim Creat Clear Calc TNP 48.5 36.6 Estimated GFR > 60 > 60 53 Random Glucose 115 Fasting Glucose 133 H Calcium 10.6 H D 9.6 D Total Bilirubin 0.3 0.2 AST 96 H 21 ALT 178 H 35 H Alkaline Phosphatase 129 H 86 Total Protein 6.2 L 5.5 L Albumin 3.4 L 3.1 L Triglycerides 131 Cholesterol 208 H LDL Cholesterol, Calc 140 H HDL Cholesterol 42 Airway Mallampati Class: II TM Dist: >3cm Neck ROM: Full Heart: rrr Lungs: cta Assessment and Plan Final Anesthetic Review Family History of Problems with Anesthesia: No History of Problems with Anesthesia: No NPO: Yes ASA Class: III Final Preanesthetic Review: No Changes in Pt Med Stat, Meds/Allgs Chart Reviewed and Consent Obtained/Reviewed Patient Risk: Intermediate Procedure Risk: Intermediate Anesthetic Plan Anesthetic Plan: GA
--- NOTE | 2023-10-14 07:46 | MHC.SHP ---
Pre-Procedural Eval Section A Date of Service: 10/14/23 The patient is an INPATIENT: Yes Changes since office visit: Yes Changes in Medication and Yes Patient answered all questions; No Cold of Flu in the past 2 weeks and No New Medical Problems The History & Physical has been completed within 30 days and I have reviewed it.: Yes Section B Chief Complaint: Severe depression Allergies: Allergies Allergy/AdvReac Type Severity Reaction Status Date / Time No Known Allergies Allergy Verified 08/27/23 10:27 Plan I have reviewed the history and physical and performed a pertinent physical examination on my patient. No changes have occurred unless specified. Time Spent With Patient Time: Total time managing care of this patient today ____ minutes.
--- NOTE | 2023-10-14 07:46 | HO.ECTPROC ---
ECT Procedure Note Diagnosis/Treatment Date of Service: 10/14/23 Diagnosis: Major Depressive Disorder Current Treatment Number: 1 Treatment: Series Interval Clinical Notes: Patient with severe depression difficult response to ECT approximately 1 year ago Delfino is a change to Brevital 0.25 pulse with tolerated treatment Time: Total time managing care of this patient today _30___ minutes. ECT Settings Device: THYMATRON DGx Electrode Placement: Right Unilateral Program/Pulse Width: 0.25 Energy Percent: 50 Seizure Duration By EEG (in seconds): 20 Medications Administration General Anesthetic: Methohexital (80) Muscle Relaxant: Succinylcholine (80) Ancillary Medications Analgesics: Torodol - Pre ECT Miscillaneous Medications: Propofol (30) Airway Management Airway Management: Bag Mask Ventilation Treatment Recommendations Energy Percent: 85 Notes: juliette casillas Pt Tolerated Procedure w/o Issue: Yes
[2023-10-14] MEDS: Brimonidine Tartrate 0.2% Oph 5 ML BOTTLE 1 DROP EYE-BOTH ×2 (09:37→20:35)
[2023-10-14] MEDS: Fluticasone Propionate Nasal 16 GM SPRAY 1 SPRAY NOSTRIL-B ×2 (09:37→20:35)
[2023-10-14] MEDS: Vortioxetine Hydrobromide 10 MG TABLET PO (09:37)
[2023-10-14] MEDS: amLODIPine Besylate 10 MG TABLET PO (09:38)
[2023-10-14] MEDS: buPROPion HCL 100 MG TABLET PO (09:38)
[2023-10-14] MEDS: Sennosides/Docusate Sodium TABLET 1 TAB PO ×2 (09:38→20:36)
[2023-10-14] MEDS: lisinopriL 5 MG TABLET 15 MG PO (09:38)
[2023-10-14] MEDS: Tamsulosin HCL 0.4 MG CAPSULE PO (09:40)
[2023-10-14] MEDS: Ondansetron ODT 4 MG TAB.RAPDIS TRANSLINGU (09:40)
[2023-10-14] MEDS: OLANZapine 2.5 MG TABLET PO ×2 (09:41→20:35)
[2023-10-14] MEDS: Omeprazole 20 MG CAPSULE.DR PO (09:41)
[2023-10-14] MEDS: Thiamine HCL 100 MG TABLET PO (09:41)
[2023-10-14] MEDS: Propranolol HCL 10 MG TABLET PO ×3 (09:41→20:35)
[2023-10-14] MEDS: Multivitamin TABLET 1 TAB PO (09:42)
--- NOTE | 2023-10-14 14:06 | PC.NURSE ---
[facility]AC[facility] notified to cancel ECT for 10/16 and 10/[address] Shearer's order.
[2023-10-14] MEDS: Milk of Magnesia 30 ML ORAL.SUSP PO (17:12)
[2023-10-14] MEDS: Ascorbic Acid 500 MG TABLET 2000 MG PO (20:34)
--- NOTE | 2023-10-14 22:18 | P.PNPSI_ITS ---
Subjective Subjective Date of Service: 10/14/23 Reason For Visit: Severe depression Subjective Notes: Conditional Voluntary Guardianship: No Interim History: Patient tolerated 1st ECT was able to give informed consent. Some complaints of nausea post ECT clear sensorium remains hopeless helpless we discussed to ECT 2 times a week to avoid significant memory difficulties noted last year Mental Status Exam Mental Status Exam Narrative: Appearance: wearing hospital gown, anxious withdrawn but fearful and guarded she is alert and oriented passive si /no HI. Pt reports feeling weak. Appears internally preoccupied feels people avoiding her pos pi Bilat action tremors. Patient in deep despair hopeless helpless despondent she is asking for ECT she does appear to understand risks benefits alternatives which have been reviewed Patient Appearance: Unkempt Patient Orientation: Person, Place and Situation Level of Consciousness: Awake and Appropriate Patient Behavior: Guarded and Anxious Mood Description: Withdrawn, Depressed and Flat Affect Description: Constricted and Depressed Patient Cognition Impaired: Yes Ability to Follow Directions: Good Speech Pattern: Clear and Impoverished Hallucinations: None Delusions: Ideas of Reference Thought Process: Distracted and Evasive Thought Content: positive for [place] and positive for Poverty of Content Depressive Symptoms: Difficulty Sleeping, Unhappiness, Thoughts of /Suicide and Loss of Energy Judgement: Fair Judgement and Insight: Some paranoid ideation tolerated 1st ECT without significant difficulty Diagnostics Vital Signs (24Hr): Vital Signs - 24 hr 10/14/23 06:00 10/14/23 06:52 10/14/23 07:59 Temperature 97.6 F 97.9 F 97.4 F Pulse Rate 65 60 67 Respiratory Rate 18 12 16 Blood Pressure 128/60 134/63 149/63 H Pulse Oximetry 95 94 98 Oxygen Delivery Method Room Air Room Air Oxygen Flow Rate 10/14/23 08:04 10/14/23 08:09 10/14/23 08:14 Temperature Pulse Rate 72 73 79 Respiratory Rate 16 14 14 Blood Pressure 122/55 L 112/56 L 123/62 Pulse Oximetry 94 94 96 Oxygen Delivery Method Nasal Cannula Nasal Cannula Nasal Cannula Oxygen Flow Rate 2 2 2 10/14/23 08:29 10/14/23 08:44 10/14/23 08:59 Temperature 97.4 F Pulse Rate 77 72 72 Respiratory Rate 18 17 17 Blood Pressure 126/74 118/65 126/59 L Pulse Oximetry 93 93 94 Oxygen Delivery Method Nasal Cannula with ETCO2 Room Air Room Air Oxygen Flow Rate 2 10/14/23 09:35 10/14/23 14:31 10/14/23 18:00 Temperature 97.5 F 98.1 F Pulse Rate 65 65 66 Respiratory Rate 12 18 Blood Pressure 134/60 111/65 125/60 Pulse Oximetry 96 93 Oxygen Delivery Method Room Air Room Air Oxygen Flow Rate BMI result Body Mass Index 19.9 Labs 10/13/23 13:22 10/13/23 13:22 Labs: Laboratory Results - last 48 hr 10/13/23 13:22 WBC 8.0 RBC 3.92 L Hgb 11.4 L Hct 36.0 L MCV 91.8 MCH 29.1 MCHC 31.7 RDW 14.1 Plt Count 290 MPV 9.5 Immature Gran % (Auto) 0.5 H Neut % (Auto) 74.2 H Lymph % (Auto) 14.1 L [place] % (Auto) 8.4 Eos % (Auto) 2.4 Baso % (Auto) 0.4 Lymph # (Auto) 1.1 L [place] # (Auto) 0.7 Eos # (Auto) 0.2 Baso # (Auto) 0.0 Abs Immat Gran (auto) 0.04 H Absolute Neuts (auto) 5.9 Absolute Nucleated RBC 0.000 Nucleated RBC % (auto) 0.0 Sodium 139 Potassium 4.9 D Chloride 105 Carbon Dioxide 30 H Anion Gap 9 L BUN 16 Creatinine 1.03 Estim Creat Clear Calc 36.6 Estimated GFR 53 Random Glucose 115 Calcium 9.6 D Total Bilirubin 0.2 AST 21 ALT 35 H Alkaline Phosphatase 86 Total Protein 5.5 L Albumin 3.1 L Imaging Radiology Impressions: ITS Impressions Head CT 10/08/23 16:26 IMPRESSION: No acute intracranial process seen. Medications Medications Current Medications Acetaminophen (Acetaminophen 325 Mg Tablet) 650 mg PO Q4H PRN PRN Reason: Pain, Severe (Pain Scale 7-10) Last Admin: 10/11/23 08:48 Dose: 650 mg Al Hydroxide/Mg Hydroxide (Magnesium Hydrox/Alum Hydrox 30 Ml Oral.Susp) 30 ml PO Q6H PRN PRN Reason: Heartburn/Nausea Amlodipine Besylate (Amlodipine Besylate 10 Mg Tablet) 10 mg PO DAILY [facility]; Protocol Last Admin: 10/14/23 09:38 Dose: 10 mg Ascorbic Acid (Ascorbic Acid 500 Mg Tablet) 2,000 mg PO BEDTIME [facility] Last Admin: 10/14/23 20:34 Dose: 2,000 mg Brimonidine Tartrate (Brimonidine Tartrate 0.2% Oph 5 Ml Bottle) 1 drop EYE- BOTH BID [facility] Last Admin: 10/14/23 20:35 Dose: 1 drop Bupropion HCl (Bupropion Hcl 100 Mg Tablet) 100 mg PO DAILY [facility] Last Admin: 10/14/23 09:38 Dose: 100 mg Fluticasone Propionate (Fluticasone Propionate Nasal 16 Gm Christine) 1 spray NOSTRIL-B BID [facility] Last Admin: 10/14/23 20:35 Dose: 1 spray Hydroxyzine HCl (Hydroxyzine Hcl 25 Mg Tablet) 25 mg PO Q6H PRN PRN Reason: Anxiety Last Admin: 10/11/23 20:38 Dose: 25 mg Lactated Ringer's (Lr) 1,000 mls @ 50 mls/hr IVCONT .Q20H [facility] Lisinopril (Lisinopril 5 Mg Tablet) 15 mg PO DAILY [facility]; Protocol Last Admin: 10/14/23 09:38 Dose: 15 mg Lorazepam (Lorazepam 0.5 Mg Tablet) 0.5 mg PO Q4H PRN PRN Reason: Anxiety Last Admin: 10/08/23 16:25 Dose: 0.5 mg Magnesium Hydroxide (Milk Of Magnesia 30 Ml Oral.Susp) 30 ml PO DAILY PRN PRN Reason: Constipation Last Admin: 10/14/23 17:12 Dose: 30 ml Magnesium Hydroxide (Milk Of Magnesia 30 Ml Oral.Susp) 30 ml PO DAILY PRN PRN Reason: Constipation Melatonin (Melatonin 3 Mg Tablet) 6 mg PO BEDTIME PRN PRN Reason: Insomnia Last Admin: 10/13/23 21:26 Dose: 6 mg Multivitamins/Vitamin C (Multivitamin Tablet) 1 tab PO DAILY [facility] Last Admin: 10/14/23 09:42 Dose: 1 tab Olanzapine (Olanzapine 2.5 Mg Tablet) 2.5 mg PO BID PRN PRN Reason: anxiety/restlessness Last Admin: 10/12/23 17:19 Dose: 2.5 mg Olanzapine (Olanzapine 2.5 Mg Tablet) 2.5 mg PO BEDTIME [facility] Last Admin: 10/14/23 20:35 Dose: 2.5 mg Olanzapine (Olanzapine 2.5 Mg Tablet) 2.5 mg PO DAILY [facility] Last Admin: 10/14/23 09:41 Dose: 2.5 mg Omeprazole (Omeprazole 20 Mg Capsule.Dr) 20 mg PO DAILY@0630 [facility] Last Admin: 10/14/23 09:41 Dose: 20 mg Ondansetron HCl (Ondansetron Odt 4 Mg Tab.Rapdis) 4 mg TRANSLINGU Q8H PRN PRN Reason: Nausea and Vomiting Last Admin: 10/14/23 09:40 Dose: 4 mg Propranolol HCl (Propranolol Hcl 10 Mg Tablet) 10 mg PO TID [facility]; Protocol Last Admin: 10/14/23 20:35 Dose: 10 mg Senna/Docusate Sodium (Sennosides/Docusate Sodium Tablet) 1 tab PO BID [facility] Last Admin: 10/14/23 20:36 Dose: 1 tab Tamsulosin HCl (Tamsulosin Hcl 0.4 Mg Capsule) 0.4 mg PO DAILY [facility] Last Admin: 10/14/23 09:40 Dose: 0.4 mg Thiamine HCl (Thiamine Hcl 100 Mg Tablet) 100 mg PO DAILY [facility] Last Admin: 10/14/23 09:41 Dose: 100 mg Vortioxetine (Vortioxetine Hydrobromide 10 Mg Tablet) 10 mg PO DAILY [facility] Last Admin: 10/14/23 09:37 Dose: 10 mg Allergies Allergies Allergy/AdvReac Type Severity Reaction Status Date / Time No Known Allergies Allergy Verified 08/27/23 10:27 Assessment & Plan Assessment & Plan (1) Bipolar II disorder: Status: Inactive Code(s): F31.81 - Bipolar II disorder (2) Delirium: Status: Resolved Code(s): R41.0 - Disorientation, unspecified Plan The patient is an elderly female with a past history of mood disorder, anxiety personality disorder NOS who was brought into the hospital for altered mental status after a short course of as provide of for depression. 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 After being medically cleared she was transferring to this facility for psychiatric stabilization. Plan 1. Gather collateral information. 2. Continue Risperdal and antidepressants as started the medicine. 3. Regular blood work and reassessment with results. 4. 15 minute checks. 5. Speech and swallow evaluation for possible change of diet. 09/30/23 add wellbutrin 75 mg non serotonergic trintellix 5 mg remains with some PI but improved encourage phys rehab 10/01/23 Patient shows improved mood and energy ambulating better more active. Concerns regarding her short-term memory remembering names and fears regarding strength in her has which do seem somewhat bilaterally diminished and some numbness tingling seems to be improving cont trintellix wellbutrin 10/02/2023 Patient generally trending upwards generally less depressed but complicated by periods of paranoia and then apprehension depression and despair feels like she can trust staff and somehow they are intentionally playing with her in some way denies self-harm Recent confusional episode lasting a number of weeks question all serotonergic syndrome delirium question related to S ketamine Encourage out of bed ambulation PT consult increase in Risperdal had recently been on Latuda Vraylar and Rexulti without clear benefit would maintain current low-dose Trintellix 5 mg Wellbutrin recently started 75 mg 10/03: Continue current management and treatment plan. 10/04: Continue current management and treatment plan. Medication changes per primary team Dr. Shearer that knows the patient well. 10/05/2023 Increase Trintellix to 10 mg increase Wellbutrin to 100 mg consider change Risperdal to olanzapine or Seroquel strongly consider ECT patient having difficulty with trust 10/06/23 stop risperadol olanzapine hs and prn 10/07/23 Pt anxious depressed inc trintellix 10 mg inc olanzapine 2.5 am 5 hs wellbutrin 100 mg am 10/08/2023 The patient reports depression, we will continue with Trintellix and we will lower Zyprexa up to 2.5 p.o. q.h.s. and keep p.r.n. 2.5 Zyprexa as needed for psychosis. 10/09 keep same treatment 10/10 restart propanolol 10mg po TID for essential tremors. 10/11 continue tx. 10/12/23 hopeless helpless pos pi inc olanzapine suspicious anxious ? ect 10/13/2023 Patient hopeless helpless despondent severely depressed has not responded to multiple antidepressant trials and augmentation strategies. She appears delusional the depressed hopeless helpless with thoughts that she would be better off denies current plan or intent reviewed risks benefits alternatives with patient son and patient is asking for ECT no medical contraindications. She did has some significant amnesia will maintain right unilateral no more than 2 times a week try and maintain at 0.25 pulse width there seemed to be few alternatives at this point EKG unremarkable 10/14/2023 Patient seen with her see ECT note Reason for continued inpatient stay Substantial Risk for: harm to self, inability to function and rapid decompensation Time Spent With Patient Time: Total time managing care of this patient today ____ minutes.
[2023-10-15] MEDS: Omeprazole 20 MG CAPSULE.DR PO (05:55)
[2023-10-15 07:00] VITALS: BMI 19.5
[2023-10-15] MEDS: LORazepam 0.5 MG TABLET PO ×2 (08:38→20:45)
[2023-10-15] MEDS: Thiamine HCL 100 MG TABLET PO (08:39)
[2023-10-15] MEDS: Sennosides/Docusate Sodium TABLET 1 TAB PO ×2 (08:39→20:46)
[2023-10-15] MEDS: OLANZapine 2.5 MG TABLET PO ×2 (08:39→20:45)
[2023-10-15] MEDS: buPROPion HCL 100 MG TABLET PO (08:39)
[2023-10-15] MEDS: Multivitamin TABLET 1 TAB PO (08:39)
[2023-10-15] MEDS: Vortioxetine Hydrobromide 10 MG TABLET PO (08:39)
[2023-10-15] MEDS: Tamsulosin HCL 0.4 MG CAPSULE PO (08:39)
[2023-10-15 08:55] VITALS: BP 100/56; PULSE 80; RESP 18; TEMP 36.6; O2SAT 91
[2023-10-15] MEDS: hydrOXYzine HCL 25 MG TABLET PO (10:29)
[2023-10-15] MEDS: Acetaminophen 325 MG TABLET 650 MG PO (10:29)
--- NOTE | 2023-10-15 10:50 | P.PNPSI_ITS ---
Subjective Subjective Date of Service: 10/15/23 Reason For Visit: Severe depression Subjective Notes: Conditional Voluntary Interim History: Patient is depressed anxious withdrawn concerned regarding her swallowing her hands and her left foot. Very difficult to clarify whether this is somatic anxiety for neuro consult had been ordered previously lower amlodipine secondary to some degree of hypotension Diagnostics Vital Signs (24Hr): Vital Signs - 24 hr 10/14/23 14:31 10/14/23 18:00 10/15/23 08:55 Temperature 98.1 F 97.9 F Pulse Rate 65 66 80 Respiratory Rate 18 18 Blood Pressure 111/65 125/60 100/56 L Pulse Oximetry 93 91 L Oxygen Delivery Method Room Air Room Air BMI result Body Mass Index 19.9 Labs 10/13/23 13:22 10/13/23 13:22 Labs: Laboratory Results - last 48 hr 10/13/23 13:22 WBC 8.0 RBC 3.92 L Hgb 11.4 L Hct 36.0 L MCV 91.8 MCH 29.1 MCHC 31.7 RDW 14.1 Plt Count 290 MPV 9.5 Immature Gran % (Auto) 0.5 H Neut % (Auto) 74.2 H Lymph % (Auto) 14.1 L [place] % (Auto) 8.4 Eos % (Auto) 2.4 Baso % (Auto) 0.4 Lymph # (Auto) 1.1 L [place] # (Auto) 0.7 Eos # (Auto) 0.2 Baso # (Auto) 0.0 Abs Immat Gran (auto) 0.04 H Absolute Neuts (auto) 5.9 Absolute Nucleated RBC 0.000 Nucleated RBC % (auto) 0.0 Sodium 139 Potassium 4.9 D Chloride 105 Carbon Dioxide 30 H Anion Gap 9 L BUN 16 Creatinine 1.03 Estim Creat Clear Calc 36.6 Estimated GFR 53 Random Glucose 115 Calcium 9.6 D Total Bilirubin 0.2 AST 21 ALT 35 H Alkaline Phosphatase 86 Total Protein 5.5 L Albumin 3.1 L Imaging Radiology Impressions: ITS Impressions Head CT 10/08/23 16:26 IMPRESSION: No acute intracranial process seen. Medications Medications Current Medications Acetaminophen (Acetaminophen 325 Mg Tablet) 650 mg PO Q4H PRN PRN Reason: Pain, Severe (Pain Scale 7-10) Last Admin: 10/15/23 10:29 Dose: 650 mg Al Hydroxide/Mg Hydroxide (Magnesium Hydrox/Alum Hydrox 30 Ml Oral.Susp) 30 ml PO Q6H PRN PRN Reason: Heartburn/Nausea Amlodipine Besylate (Amlodipine Besylate 10 Mg Tablet) 10 mg PO DAILY [facility]; Protocol Last Admin: 10/15/23 08:47 Dose: Not Given Ascorbic Acid (Ascorbic Acid 500 Mg Tablet) 2,000 mg PO BEDTIME [facility] Last Admin: 10/14/23 20:34 Dose: 2,000 mg Brimonidine Tartrate (Brimonidine Tartrate 0.2% Oph 5 Ml Bottle) 1 drop EYE- BOTH BID [facility] Last Admin: 10/15/23 10:22 Dose: Not Given Bupropion HCl (Bupropion Hcl 100 Mg Tablet) 100 mg PO DAILY [facility] Last Admin: 10/15/23 08:39 Dose: 100 mg Fluticasone Propionate (Fluticasone Propionate Nasal 16 Gm [place]) 1 spray NOSTRIL-B BID [facility] Last Admin: 10/15/23 10:23 Dose: Not Given Hydroxyzine HCl (Hydroxyzine Hcl 25 Mg Tablet) 25 mg PO Q6H PRN PRN Reason: Anxiety Last Admin: 10/15/23 10:29 Dose: 25 mg Lisinopril (Lisinopril 5 Mg Tablet) 15 mg PO DAILY [facility]; Protocol Last Admin: 10/15/23 08:46 Dose: Not Given Lorazepam (Lorazepam 0.5 Mg Tablet) 0.5 mg PO Q4H PRN PRN Reason: Anxiety Last Admin: 10/15/23 08:38 Dose: 0.5 mg Magnesium Hydroxide (Milk Of Magnesia 30 Ml Oral.Susp) 30 ml PO DAILY PRN PRN Reason: Constipation Last Admin: 10/14/23 17:12 Dose: 30 ml Magnesium Hydroxide (Milk Of Magnesia 30 Ml Oral.Susp) 30 ml PO DAILY PRN PRN Reason: Constipation Melatonin (Melatonin 3 Mg Tablet) 6 mg PO BEDTIME PRN PRN Reason: Insomnia Last Admin: 10/13/23 21:26 Dose: 6 mg Multivitamins/Vitamin C (Multivitamin Tablet) 1 tab PO DAILY [facility] Last Admin: 10/15/23 08:39 Dose: 1 tab Olanzapine (Olanzapine 2.5 Mg Tablet) 2.5 mg PO BID PRN PRN Reason: anxiety/restlessness Last Admin: 10/12/23 17:19 Dose: 2.5 mg Olanzapine (Olanzapine 2.5 Mg Tablet) 2.5 mg PO BEDTIME [facility] Last Admin: 10/14/23 20:35 Dose: 2.5 mg Olanzapine (Olanzapine 2.5 Mg Tablet) 2.5 mg PO DAILY [facility] Last Admin: 10/15/23 08:39 Dose: 2.5 mg Omeprazole (Omeprazole 20 Mg Capsule.Dr) 20 mg PO DAILY@0630 [facility] Last Admin: 10/15/23 05:55 Dose: 20 mg Ondansetron HCl (Ondansetron Odt 4 Mg Tab.Rapdis) 4 mg TRANSLINGU Q8H PRN PRN Reason: Nausea and Vomiting Last Admin: 10/14/23 09:40 Dose: 4 mg Propranolol HCl (Propranolol Hcl 10 Mg Tablet) 10 mg PO TID [facility]; Protocol Last Admin: 10/15/23 08:46 Dose: Not Given Senna/Docusate Sodium (Sennosides/Docusate Sodium Tablet) 1 tab PO BID [facility] Last Admin: 10/15/23 08:39 Dose: 1 tab Tamsulosin HCl (Tamsulosin Hcl 0.4 Mg Capsule) 0.4 mg PO DAILY [facility] Last Admin: 10/15/23 08:39 Dose: 0.4 mg Thiamine HCl (Thiamine Hcl 100 Mg Tablet) 100 mg PO DAILY [facility] Last Admin: 10/15/23 08:39 Dose: 100 mg Vortioxetine (Vortioxetine Hydrobromide 10 Mg Tablet) 10 mg PO DAILY [facility] Last Admin: 10/15/23 08:39 Dose: 10 mg Allergies Allergies Allergy/AdvReac Type Severity Reaction Status Date / Time No Known Allergies Allergy Verified 08/27/23 10:27 Assessment & Plan Assessment & Plan (1) Bipolar II disorder: Status: Inactive Code(s): F31.81 - Bipolar II disorder (2) Delirium: Status: Resolved Code(s): R41.0 - Disorientation, unspecified (3) Depression, major, severe recurrence: Status: Acute Code(s): F33.2 - Major depressive disorder, recurrent severe without psychotic features (4) Hypertension: Status: Chronic Code(s): I10 - Essential (primary) hypertension (5) Odynophagia: Status: Acute Code(s): R13.10 - Dysphagia, unspecified Plan The patient is an elderly female with a past history of mood disorder, anxiety personality disorder NOS who was brought into the hospital for altered mental status after a short course of as provide of for depression. 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 After being medically cleared she was transferring to this facility for psychiatric stabilization. Plan 1. Gather collateral information. 2. Continue Risperdal and antidepressants as started the medicine. 3. Regular blood work and reassessment with results. 4. 15 minute checks. 5. Speech and swallow evaluation for possible change of diet. 09/30/23 add wellbutrin 75 mg non serotonergic trintellix 5 mg remains with some PI but improved encourage phys rehab 10/01/23 Patient shows improved mood and energy ambulating better more active. Concerns regarding her short-term memory remembering names and fears regarding strength in her has which do seem somewhat bilaterally diminished and some numbness tingling seems to be improving cont trintellix wellbutrin 10/02/2023 Patient generally trending upwards generally less depressed but complicated by periods of paranoia and then apprehension depression and despair feels like she can trust staff and somehow they are intentionally playing with her in some way denies self-harm Recent confusional episode lasting a number of weeks question all serotonergic syndrome delirium question related to S ketamine Encourage out of bed ambulation PT consult increase in Risperdal had recently been on Latuda Vraylar and Rexulti without clear benefit would maintain current low-dose Trintellix 5 mg Wellbutrin recently started 75 mg 10/03: Continue current management and treatment plan. 10/04: Continue current management and treatment plan. Medication changes per primary team Dr. Shearer that knows the patient well. 10/05/2023 Increase Trintellix to 10 mg increase Wellbutrin to 100 mg consider change Risperdal to olanzapine or Seroquel strongly consider ECT patient having difficulty with trust 10/06/23 stop risperadol olanzapine hs and prn 10/07/23 Pt anxious depressed inc trintellix 10 mg inc olanzapine 2.5 am 5 hs wellbutrin 100 mg am 10/08/2023 The patient reports depression, we will continue with Trintellix and we will lower Zyprexa up to 2.5 p.o. q.h.s. and keep p.r.n. 2.5 Zyprexa as needed for psychosis. 10/09 keep same treatment 10/10 restart propanolol 10mg po TID for essential tremors. 10/11 continue tx. 10/12/23 hopeless helpless pos pi inc olanzapine suspicious anxious ? ect 10/13/2023 Patient hopeless helpless despondent severely depressed has not responded to multiple antidepressant trials and augmentation strategies. She appears delusional the depressed hopeless helpless with thoughts that she would be better off denies current plan or intent reviewed risks benefits alternatives with patient son and patient is asking for ECT no medical contraindications. She did has some significant amnesia will maintain right unilateral no more than 2 times a week try and maintain at 0.25 pulse width there seemed to be few alternatives at this point EKG unremarkable 10/14/2023 Patient seen with her see ECT note 10/15/2023 Encourage increase head of bed continue physical therapy recent head CT was unremarkable neuro consult question neuropathy question left footdrop will get hospitalist consult continue Trintellix Wellbutrin Reason for continued inpatient stay Substantial Risk for: harm to self, inability to function and rapid decompensation Time Spent With Patient Time: Total time managing care of this patient today ____ minutes.
[2023-10-15 13:00] VITALS: BP 99/53; PULSE 78
[2023-10-15 18:00] VITALS: BP 116/62; PULSE 74; RESP 18; TEMP 36.2; O2SAT 96
[2023-10-15] MEDS: Milk of Magnesia 30 ML ORAL.SUSP PO (20:44)
[2023-10-15] MEDS: Melatonin 3 MG TABLET 6 MG PO (20:44)
[2023-10-15] MEDS: Propranolol HCL 10 MG TABLET PO (20:45)
[2023-10-15] MEDS: Ascorbic Acid 500 MG TABLET 2000 MG PO (20:46)
[2023-10-15] MEDS: Fluticasone Propionate Nasal 16 GM SPRAY 1 SPRAY NOSTRIL-B (20:47)
[2023-10-15] MEDS: Brimonidine Tartrate 0.2% Oph 5 ML BOTTLE 1 DROP EYE-BOTH (20:47)
[2023-10-16] MEDS: Omeprazole 20 MG CAPSULE.DR PO (06:29)
[2023-10-16 07:50] VITALS: BP 113/78; PULSE 94; RESP 18; TEMP 36.7; O2SAT 96
[2023-10-16] MEDS: lisinopriL 5 MG TABLET 15 MG PO (09:06)
[2023-10-16] MEDS: buPROPion HCL 100 MG TABLET PO (09:07)
[2023-10-16] MEDS: Propranolol HCL 10 MG TABLET PO ×3 (09:08→20:27)
[2023-10-16] MEDS: Vortioxetine Hydrobromide 10 MG TABLET PO (09:08)
[2023-10-16] MEDS: Tamsulosin HCL 0.4 MG CAPSULE PO (09:08)
[2023-10-16] MEDS: Sennosides/Docusate Sodium TABLET 1 TAB PO (09:08)
[2023-10-16] MEDS: Multivitamin TABLET 1 TAB PO (09:09)
[2023-10-16] MEDS: OLANZapine 2.5 MG TABLET PO ×2 (09:09→20:27)
[2023-10-16] MEDS: amLODIPine Besylate 5 MG TABLET PO (09:09)
[2023-10-16] MEDS: Thiamine HCL 100 MG TABLET PO (09:09)
[2023-10-16] MEDS: Fluticasone Propionate Nasal 16 GM SPRAY 1 SPRAY NOSTRIL-B ×2 (09:10→20:30)
[2023-10-16] MEDS: Brimonidine Tartrate 0.2% Oph 5 ML BOTTLE 1 DROP EYE-BOTH ×2 (09:10→20:28)
--- NOTE | 2023-10-16 09:48 | P.PNPSI_ITS ---
Subjective Subjective Date of Service: 10/16/23 Reason For Visit: Severe depression Subjective Notes: Conditional Voluntary Healthcare Proxy: No Guardianship: No Interim History: The patient is depressed and withdrawn she appears improved cognitively alert was out of her room more playing bingo more social. She was seen by Neurology who does note a left footdrop question perennial nerve otherwise patient seems somewhat improved less psychotic paranoia not confused Medication Compliance: Yes Attending Groups: Intermittent Review of Systems Review of Systems: Decreased left foot dorsiflex Mental Status Exam Mental Status Exam Patient Appearance: Appropriate Patient Orientation: Person, Place and Situation Level of Consciousness: Awake and Appropriate Patient Behavior: Guarded, Cooperative, Passive and Anxious Mood Description: Withdrawn, Depressed and Flat Affect Description: Constricted and Depressed Patient Cognition Impaired: Yes Ability to Follow Directions: Good Speech Pattern: Clear and Impoverished Hallucinations: None Delusions: Not Present Thought Process: Distracted and Evasive Thought Content: positive for [place] and positive for Poverty of Content Depressive Symptoms: Difficulty Sleeping, Hopelessness, Unhappiness, Thoughts of /Suicide and Loss of Energy Judgement: Fair Diagnostics Vital Signs (24Hr): Vital Signs - 24 hr 10/15/23 13:00 10/15/23 18:00 10/16/23 07:50 Temperature 97.2 F 98.1 F Pulse Rate 78 74 94 Respiratory Rate 18 18 Blood Pressure 99/53 L 116/62 113/78 Pulse Oximetry 96 96 Oxygen Delivery Method Room Air Room Air BMI result Body Mass Index 19.5 Labs 10/13/23 13:22 10/13/23 13:22 Imaging Radiology Impressions: ITS Impressions Head CT 10/08/23 16:26 IMPRESSION: No acute intracranial process seen. Medications Medications Current Medications Acetaminophen (Acetaminophen 325 Mg Tablet) 650 mg PO Q4H PRN PRN Reason: Pain, Severe (Pain Scale 7-10) Last Admin: 10/15/23 10:29 Dose: 650 mg Al Hydroxide/Mg Hydroxide (Magnesium Hydrox/Alum Hydrox 30 Ml Oral.Susp) 30 ml PO Q6H PRN PRN Reason: Heartburn/Nausea Amlodipine Besylate (Amlodipine Besylate 5 Mg Tablet) 5 mg PO DAILY [facility]; Protocol Last Admin: 10/16/23 09:09 Dose: 5 mg Ascorbic Acid (Ascorbic Acid 500 Mg Tablet) 2,000 mg PO BEDTIME [facility] Last Admin: 10/15/23 20:46 Dose: 2,000 mg Bisacodyl (Bisacodyl 5 Mg Tablet.Dr) 10 mg PO ONCE ONE Stop: 10/16/23 09:39 Brimonidine Tartrate (Brimonidine Tartrate 0.2% Oph 5 Ml Bottle) 1 drop EYE- BOTH BID [facility] Last Admin: 10/16/23 09:10 Dose: 1 drop Bupropion HCl (Bupropion Hcl 100 Mg Tablet) 100 mg PO DAILY [facility] Last Admin: 10/16/23 09:07 Dose: 100 mg Fluticasone Propionate (Fluticasone Propionate Nasal 16 Gm [place]) 1 spray NOSTRIL-B BID [facility] Last Admin: 10/16/23 09:10 Dose: 1 spray Hydroxyzine HCl (Hydroxyzine Hcl 25 Mg Tablet) 25 mg PO Q6H PRN PRN Reason: Anxiety Last Admin: 10/15/23 10:29 Dose: 25 mg Lisinopril (Lisinopril 5 Mg Tablet) 15 mg PO DAILY [facility]; Protocol Last Admin: 10/16/23 09:06 Dose: 15 mg Lorazepam (Lorazepam 0.5 Mg Tablet) 0.5 mg PO Q4H PRN PRN Reason: Anxiety Last Admin: 10/15/23 20:45 Dose: 0.5 mg Magnesium Hydroxide (Milk Of Magnesia 30 Ml Oral.Susp) 30 ml PO DAILY PRN PRN Reason: Constipation Last Admin: 10/15/23 20:44 Dose: 30 ml Magnesium Hydroxide (Milk Of Magnesia 30 Ml Oral.Susp) 30 ml PO DAILY PRN PRN Reason: Constipation Melatonin (Melatonin 3 Mg Tablet) 6 mg PO BEDTIME PRN PRN Reason: Insomnia Last Admin: 10/15/23 20:44 Dose: 6 mg Multivitamins/Vitamin C (Multivitamin Tablet) 1 tab PO DAILY [facility] Last Admin: 10/16/23 09:09 Dose: 1 tab Olanzapine (Olanzapine 2.5 Mg Tablet) 2.5 mg PO BID PRN PRN Reason: anxiety/restlessness Last Admin: 10/12/23 17:19 Dose: 2.5 mg Olanzapine (Olanzapine 2.5 Mg Tablet) 2.5 mg PO BEDTIME [facility] Last Admin: 10/15/23 20:45 Dose: 2.5 mg Olanzapine (Olanzapine 2.5 Mg Tablet) 2.5 mg PO DAILY [facility] Last Admin: 10/16/23 09:09 Dose: 2.5 mg Omeprazole (Omeprazole 20 Mg Capsule.Dr) 20 mg PO DAILY@0630 [facility] Last Admin: 10/16/23 06:29 Dose: 20 mg Ondansetron HCl (Ondansetron Odt 4 Mg Tab.Rapdis) 4 mg TRANSLINGU Q8H PRN PRN Reason: Nausea and Vomiting Last Admin: 10/14/23 09:40 Dose: 4 mg Propranolol HCl (Propranolol Hcl 10 Mg Tablet) 10 mg PO TID [facility]; Protocol Last Admin: 10/16/23 09:08 Dose: 10 mg Senna/Docusate Sodium (Sennosides/Docusate Sodium Tablet) 2 tab PO BID [facility] Tamsulosin HCl (Tamsulosin Hcl 0.4 Mg Capsule) 0.4 mg PO DAILY [facility] Last Admin: 10/16/23 09:08 Dose: 0.4 mg Thiamine HCl (Thiamine Hcl 100 Mg Tablet) 100 mg PO DAILY [facility] Last Admin: 10/16/23 09:09 Dose: 100 mg Vortioxetine (Vortioxetine Hydrobromide 10 Mg Tablet) 10 mg PO DAILY [facility] Last Admin: 10/16/23 09:08 Dose: 10 mg Allergies Allergies Allergy/AdvReac Type Severity Reaction Status Date / Time No Known Allergies Allergy Verified 08/27/23 10:27 Assessment & Plan Assessment & Plan (1) Bipolar II disorder: Status: Inactive Code(s): F31.81 - Bipolar II disorder (2) Delirium: Status: Resolved Code(s): R41.0 - Disorientation, unspecified (3) Depression, major, severe recurrence: Status: Acute Code(s): F33.2 - Major depressive disorder, recurrent severe without psychotic features (4) Hypertension: Status: Chronic Code(s): I10 - Essential (primary) hypertension (5) Odynophagia: Status: Acute Code(s): R13.10 - Dysphagia, unspecified Plan The patient is an elderly female with a past history of mood disorder, anxiety personality disorder NOS who was brought into the hospital for altered mental status after a short course of as provide of for depression. 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 After being medically cleared she was transferring to this facility for psychiatric stabilization. Plan 1. Gather collateral information. 2. Continue Risperdal and antidepressants as started the medicine. 3. Regular blood work and reassessment with results. 4. 15 minute checks. 5. Speech and swallow evaluation for possible change of diet. 09/30/23 add wellbutrin 75 mg non serotonergic trintellix 5 mg remains with some PI but improved encourage phys rehab 10/01/23 Patient shows improved mood and energy ambulating better more active. Concerns regarding her short-term memory remembering names and fears regarding strength in her has which do seem somewhat bilaterally diminished and some numbness tingling seems to be improving cont trintellix wellbutrin 10/02/2023 Patient generally trending upwards generally less depressed but complicated by periods of paranoia and then apprehension depression and despair feels like she can trust staff and somehow they are intentionally playing with her in some way denies self-harm Recent confusional episode lasting a number of weeks question all serotonergic syndrome delirium question related to S ketamine Encourage out of bed ambulation PT consult increase in Risperdal had recently been on Latuda Vraylar and Rexulti without clear benefit would maintain current low-dose Trintellix 5 mg Wellbutrin recently started 75 mg 10/03: Continue current management and treatment plan. 10/04: Continue current management and treatment plan. Medication changes per primary team Dr. Shearer that knows the patient well. 10/05/2023 Increase Trintellix to 10 mg increase Wellbutrin to 100 mg consider change Risperdal to olanzapine or Seroquel strongly consider ECT patient having difficulty with trust 10/06/23 stop risperadol olanzapine hs and prn 10/07/23 Pt anxious depressed inc trintellix 10 mg inc olanzapine 2.5 am 5 hs wellbutrin 100 mg am 10/08/2023 The patient reports depression, we will continue with Trintellix and we will lower Zyprexa up to 2.5 p.o. q.h.s. and keep p.r.n. 2.5 Zyprexa as needed for psychosis. 10/09 keep same treatment 10/10 restart propanolol 10mg po TID for essential tremors. 10/11 continue tx. 10/12/23 hopeless helpless pos pi inc olanzapine suspicious anxious ? ect 10/13/2023 Patient hopeless helpless despondent severely depressed has not responded to multiple antidepressant trials and augmentation strategies. She appears delusional the depressed hopeless helpless with thoughts that she would be better off denies current plan or intent reviewed risks benefits alternatives with patient son and patient is asking for ECT no medical contraindications. She did has some significant amnesia will maintain right unilateral no more than 2 times a week try and maintain at 0.25 pulse width there seemed to be few alternatives at this point EKG unremarkable 10/14/2023 Patient seen with her see ECT note 10/15/2023 Encourage increase head of bed continue physical therapy recent head CT was unremarkable neuro consult question neuropathy question left footdrop will get hospitalist consult continue Trintellix Wellbutrin 10/16/2023 Increase Wellbutrin to 150 mg daily monitor for hypertension agitation worsening constipation continue Trental X ECT scheduled for 3 days Needs much support and courage mint Patient educated on: medication risk/benefits, ECT and medical condition Informed Consent: understands Reason for continued inpatient stay Substantial Risk for: harm to self, inability to function and rapid decompensation Time Spent With Patient Time: Total time managing care of this patient today ____ minutes.
[2023-10-16] MEDS: bisacodyL 5 MG TABLET.DR 10 MG PO (10:08)
--- NOTE | 2023-10-16 13:44 | P.CNNE_ITS ---
History of Present Illness Data of Consult Service Date: 10/16/23 Primary Care Provider: Unknown Physician HPI Reason for consult: Foot drop 72 years old woman with 1 week history of right-sided foot weakness. There was no obvious trigger. There was no complaint of pain numbness or tingling. Review of Systems 2 Review of Systems: No recent fall or injury. [facility] Past Medical History Medical History Urinary tract infection Depression Hypothyroidism ZAC (generalized anxiety disorder) Hypertension ADHD (attention deficit hyperactivity disorder) Family History Family History Other No pertinent family history Surgical History Surgical History H/O thumb surgery H/O cone biopsy of cervix Social History Social History Household Members: Spouse Household Members Other:: And two cats. Housing: House Do you presently have visiting nurse or other home services: No Unable to assess alcohol history related to: Unknown Alcohol intake: never Comment: 1:1 sitter Patient Tobacco Use Status: Former Tobacco user Quit Date: 20 years [facility] Tobacco use type: Cigarette Years Smoked: 20 Smoked in Last 30 Days: No e-Cigarette/Vaping Use: Never Used Patient Interested in Nicotine Replacement: No (n/a) Patient Given Instructions on How to Stop Smoking: No (n/a) Second Hand Smoke Exposure: No Use of substances other than those prescribed or required for medical reasons: No Substance Use Type: Former Substance User and Marijuana Last Used Substance Other:: 2 years Currently Displaying Signs/Symptoms of Drug Intoxication Withdrawal: No Any prior treatment program specific to substance use: No Have you been hit, kicked, punched, or otherwise hurt by someone within the past year? If so, by whom?: No Do you feel safe in your current relationship?: Yes Is there a partner from a previous relationship who is making you feel unsafe now?: No Are you made to feel afraid or neglected: No Spiritual Healthcare Practices: no Caodaism Healthcare Practices: no Cultural Healthcare Practices: no Advance Directives: No Advance Directives Information Provided: No (declined) Advance Directives on File: No Do you have thoughts of harming others: None Do you have a plan to hurt others: No Plan Recently lost weight without trying: Yes How much weight loss: Unsure Eating poorly because of decreased appetite: Yes Nutrition screen score: 5 Patient : No : No Poor oral hygiene: No service: No Sexual orientation: Straight/Heterosexual Meds Allergies Allergy/AdvReac Type Severity Reaction Status Date / Time No Known Allergies Allergy Verified 08/27/23 10:27 Active Medications: Current Medications Acetaminophen (Acetaminophen 325 Mg Tablet) 650 mg PO Q4H PRN PRN Reason: Pain, Severe (Pain Scale 7-10) Last Admin: 10/15/23 10:29 Dose: 650 mg Al Hydroxide/Mg Hydroxide (Magnesium Hydrox/Alum Hydrox 30 Ml Oral.Susp) 30 ml PO Q6H PRN PRN Reason: Heartburn/Nausea Amlodipine Besylate (Amlodipine Besylate 5 Mg Tablet) 5 mg PO DAILY [facility]; Protocol Last Admin: 10/16/23 09:09 Dose: 5 mg Ascorbic Acid (Ascorbic Acid 500 Mg Tablet) 2,000 mg PO BEDTIME [facility] Last Admin: 10/15/23 20:46 Dose: 2,000 mg Bisacodyl (Bisacodyl 5 Mg Tablet.Dr) 10 mg PO DAILY PRN PRN Reason: Constipation Brimonidine Tartrate (Brimonidine Tartrate 0.2% Oph 5 Ml Bottle) 1 drop EYE- BOTH BID [facility] Last Admin: 10/16/23 09:10 Dose: 1 drop Bupropion HCl (Bupropion Hcl 100 Mg Tablet) 100 mg PO DAILY [facility] Last Admin: 10/16/23 09:07 Dose: 100 mg Fluticasone Propionate (Fluticasone Propionate Nasal 16 Gm [place]) 1 spray NOSTRIL-B BID [facility] Last Admin: 10/16/23 09:10 Dose: 1 spray Hydroxyzine HCl (Hydroxyzine Hcl 25 Mg Tablet) 25 mg PO Q6H PRN PRN Reason: Anxiety Last Admin: 10/15/23 10:29 Dose: 25 mg Lisinopril (Lisinopril 5 Mg Tablet) 15 mg PO DAILY [facility]; Protocol Last Admin: 10/16/23 09:06 Dose: 15 mg Lorazepam (Lorazepam 0.5 Mg Tablet) 0.5 mg PO Q4H PRN PRN Reason: Anxiety Last Admin: 10/15/23 20:45 Dose: 0.5 mg Magnesium Hydroxide (Milk Of Magnesia 30 Ml Oral.Susp) 30 ml PO DAILY PRN PRN Reason: Constipation Last Admin: 10/15/23 20:44 Dose: 30 ml Magnesium Hydroxide (Milk Of Magnesia 30 Ml Oral.Susp) 30 ml PO DAILY PRN PRN Reason: Constipation Melatonin (Melatonin 3 Mg Tablet) 6 mg PO BEDTIME PRN PRN Reason: Insomnia Last Admin: 10/15/23 20:44 Dose: 6 mg Multivitamins/Vitamin C (Multivitamin Tablet) 1 tab PO DAILY [facility] Last Admin: 10/16/23 09:09 Dose: 1 tab Olanzapine (Olanzapine 2.5 Mg Tablet) 2.5 mg PO BID PRN PRN Reason: anxiety/restlessness Last Admin: 10/12/23 17:19 Dose: 2.5 mg Olanzapine (Olanzapine 2.5 Mg Tablet) 2.5 mg PO BEDTIME [facility] Last Admin: 10/15/23 20:45 Dose: 2.5 mg Olanzapine (Olanzapine 2.5 Mg Tablet) 2.5 mg PO DAILY [facility] Last Admin: 10/16/23 09:09 Dose: 2.5 mg Omeprazole (Omeprazole 20 Mg Capsule.Dr) 20 mg PO DAILY@0630 [facility] Last Admin: 10/16/23 06:29 Dose: 20 mg Ondansetron HCl (Ondansetron Odt 4 Mg Tab.Rapdis) 4 mg TRANSLINGU Q8H PRN PRN Reason: Nausea and Vomiting Last Admin: 10/14/23 09:40 Dose: 4 mg Polyethylene Glycol (Polyethylene Glycol 3350 17 Gm Powd.Pack) 17 gm PO DAILY [facility] Propranolol HCl (Propranolol Hcl 10 Mg Tablet) 10 mg PO TID [facility]; Protocol Last Admin: 10/16/23 09:08 Dose: 10 mg Senna/Docusate Sodium (Sennosides/Docusate Sodium Tablet) 2 tab PO BID [facility] Tamsulosin HCl (Tamsulosin Hcl 0.4 Mg Capsule) 0.4 mg PO DAILY [facility] Last Admin: 10/16/23 09:08 Dose: 0.4 mg Thiamine HCl (Thiamine Hcl 100 Mg Tablet) 100 mg PO DAILY [facility] Last Admin: 10/16/23 09:09 Dose: 100 mg Vortioxetine (Vortioxetine Hydrobromide 10 Mg Tablet) 10 mg PO DAILY [facility] Last Admin: 10/16/23 09:08 Dose: 10 mg Home Medications Medication Instructions Recorded Confirmed Last Taken Type amlodipine 5 mg tablet 10 mg PO DAILY 10/23/22 08/27/23 10/23/22 History fluticasone propionate 50 1 spray intranasal BID 08/27/23 08/27/23 Unknown History mcg/actuation nasal spray,suspension propranolol 20 mg tablet 20 mg PO BID 08/27/23 08/27/23 Unknown History Physical Exam 2 Vital Signs: Vital Signs: Last Vital Signs Temp 98.1 F 10/16/23 07:50 Pulse 94 10/16/23 07:50 Resp 18 10/16/23 07:50 BP 113/78 10/16/23 07:50 Pulse Ox 96 10/16/23 07:50 O2 Del Method Room Air 10/16/23 07:50 O2 Flow Rate 2 10/14/23 08:29 BMI result Body Mass Index 19.5 Neuro: Other: She was alert and awake with normal spontaneity of speech fluency comprehension and depressed affect. Right foot was weak with most weakness of dorsiflexion eversion and inversion with relatively strong plantar flexion. Knee and ankle reflexes were present while ankle reflex was slightly weak and right knee reflex was slightly stronger than left. Plantars were flexor. She was able to stand on toes but could not stand on heels. Results Labs 10/13/23 13:22 10/13/23 13:22 Labs: Noncontrast head CT did not reveal any significant abnormality per Assessment and Plan (1) Footdrop: Qualifiers: Laterality: right Qualified Code(s): M21.371 - Foot drop, right foot Status: Acute Plan 72 years old woman with new onset of right foot weakness that was suggestive of either right peroneal neuropathy but there was also some suggestion that this might be dystonia. At this time any EMG nerve conduction study is recommended to differentiate. It could be done as an outpatient. Proper shoe orthosis is recommended to avoid falling or injury to foot. Procedures Date of Service Date of Service: 10/16/23
[2023-10-16] MEDS: polyethylene glycoL 3350 17 GM POWD.PACK PO (13:49)
[2023-10-16 14:20] VITALS: BP 101/59; PULSE 81
[2023-10-16 19:35] VITALS: BP 106/66; PULSE 86; RESP 18; TEMP 36.6; O2SAT 96
[2023-10-16] MEDS: Ascorbic Acid 500 MG TABLET 2000 MG PO (20:27)
[2023-10-16] MEDS: Sennosides/Docusate Sodium TABLET 2 TAB PO (20:27)
--- NOTE | 2023-10-17 00:47 | PM.EVENT ---
Event Note Date of Service: 10/17/23 Event Note: Pt was seen and evaluated for possible left foot drop. However, pt was also seen and evaluated by Neurology on same day for same complaint. Will defer to Neurology's expert exam and recommendations. Time Spent With Patient Time: Total time managing care of this patient today ____ minutes.
[2023-10-17] MEDS: Omeprazole 20 MG CAPSULE.DR PO (06:02)
[2023-10-17 08:00] VITALS: BP 136/72; PULSE 95; RESP 18; TEMP 36.9; O2SAT 95
[2023-10-17] MEDS: polyethylene glycoL 3350 17 GM POWD.PACK PO (08:15)
[2023-10-17] MEDS: Thiamine HCL 100 MG TABLET PO (08:16)
[2023-10-17] MEDS: Propranolol HCL 10 MG TABLET PO ×3 (08:16→20:38)
[2023-10-17] MEDS: Tamsulosin HCL 0.4 MG CAPSULE PO (08:16)
[2023-10-17] MEDS: amLODIPine Besylate 5 MG TABLET PO (08:17)
[2023-10-17] MEDS: lisinopriL 5 MG TABLET 15 MG PO (08:17)
[2023-10-17] MEDS: Sennosides/Docusate Sodium TABLET 2 TAB PO ×2 (08:17→20:37)
[2023-10-17] MEDS: Vortioxetine Hydrobromide 10 MG TABLET PO (08:17)
[2023-10-17] MEDS: buPROPion HCl XL 150 MG TAB.ER.24H PO (08:17)
[2023-10-17] MEDS: Multivitamin TABLET 1 TAB PO (08:17)
[2023-10-17] MEDS: Brimonidine Tartrate 0.2% Oph 5 ML BOTTLE 1 DROP EYE-BOTH ×2 (08:26→20:41)
[2023-10-17] MEDS: Fluticasone Propionate Nasal 16 GM SPRAY 1 SPRAY NOSTRIL-B ×2 (08:26→20:41)
[2023-10-17] MEDS: OLANZapine 2.5 MG TABLET PO ×2 (08:45→20:38)
--- NOTE | 2023-10-17 08:49 | P.PNPSI_ITS ---
Subjective Subjective Date of Service: 10/17/23 Reason For Visit: Severe depression Interim History: Pt seen, reviewed with team. Pt in the milieu, having mid-day meal with peers-alert, attentive to milieu/peer activity. Appears anergic, withdrawn, depressed. Spontaneous smile with approached. Minimal dialogue. Review of Systems Review of Systems Yes Unobtainable due to mental status Mental Status Exam Mental Status Exam Patient Appearance: Appropriate Patient Orientation: Person, Place and Situation Level of Consciousness: Awake and Appropriate Patient Behavior: Guarded, Cooperative, Passive and Anxious Mood Description: Withdrawn, Depressed and Flat Affect Description: Constricted and Depressed Patient Cognition Impaired: Yes Ability to Follow Directions: Good Speech Pattern: Clear and Impoverished Hallucinations: None Delusions: Not Present Thought Process: Distracted and Evasive Thought Content: positive for [place] and positive for Poverty of Content Depressive Symptoms: Difficulty Sleeping, Hopelessness, Unhappiness, Thoughts of /Suicide and Loss of Energy Judgement: Fair Diagnostics Vital Signs (24Hr): Vital Signs - 24 hr 10/16/23 14:20 10/16/23 19:35 Temperature 97.8 F Pulse Rate 81 86 Respiratory Rate 18 Blood Pressure 101/59 L 106/66 Pulse Oximetry 96 Oxygen Delivery Method Room Air BMI result Body Mass Index 19.5 Labs 10/13/23 13:22 10/13/23 13:22 Imaging Radiology Impressions: ITS Impressions Head CT 10/08/23 16:26 IMPRESSION: No acute intracranial process seen. Medications Medications Current Medications Acetaminophen (Acetaminophen 325 Mg Tablet) 650 mg PO Q4H PRN PRN Reason: Pain, Severe (Pain Scale 7-10) Last Admin: 10/15/23 10:29 Dose: 650 mg Al Hydroxide/Mg Hydroxide (Magnesium Hydrox/Alum Hydrox 30 Ml Oral.Susp) 30 ml PO Q6H PRN PRN Reason: Heartburn/Nausea Amlodipine Besylate (Amlodipine Besylate 5 Mg Tablet) 5 mg PO DAILY [facility]; Protocol Last Admin: 10/17/23 08:17 Dose: 5 mg Ascorbic Acid (Ascorbic Acid 500 Mg Tablet) 2,000 mg PO BEDTIME [facility] Last Admin: 10/16/23 20:27 Dose: 2,000 mg Bisacodyl (Bisacodyl 5 Mg Tablet.Dr) 10 mg PO DAILY PRN PRN Reason: Constipation Brimonidine Tartrate (Brimonidine Tartrate 0.2% Oph 5 Ml Bottle) 1 drop EYE- BOTH BID [facility] Last Admin: 10/17/23 08:26 Dose: 1 drop Bupropion HCl (Bupropion Hcl Xl 150 Mg Tab.Er.24h) 150 mg PO DAILY [facility] Last Admin: 10/17/23 08:17 Dose: 150 mg Fluticasone Propionate (Fluticasone Propionate Nasal 16 Gm [place]) 1 spray NOSTRIL-B BID [facility] Last Admin: 10/17/23 08:26 Dose: 1 spray Hydroxyzine HCl (Hydroxyzine Hcl 25 Mg Tablet) 25 mg PO Q6H PRN PRN Reason: Anxiety Last Admin: 10/15/23 10:29 Dose: 25 mg Lisinopril (Lisinopril 5 Mg Tablet) 15 mg PO DAILY [facility]; Protocol Last Admin: 10/17/23 08:17 Dose: 15 mg Lorazepam (Lorazepam 0.5 Mg Tablet) 0.5 mg PO Q4H PRN PRN Reason: Anxiety Last Admin: 10/15/23 20:45 Dose: 0.5 mg Magnesium Hydroxide (Milk Of Magnesia 30 Ml Oral.Susp) 30 ml PO DAILY PRN PRN Reason: Constipation Last Admin: 10/15/23 20:44 Dose: 30 ml Magnesium Hydroxide (Milk Of Magnesia 30 Ml Oral.Susp) 30 ml PO DAILY PRN PRN Reason: Constipation Melatonin (Melatonin 3 Mg Tablet) 6 mg PO BEDTIME PRN PRN Reason: Insomnia Last Admin: 10/15/23 20:44 Dose: 6 mg Multivitamins/Vitamin C (Multivitamin Tablet) 1 tab PO DAILY [facility] Last Admin: 10/17/23 08:17 Dose: 1 tab Olanzapine (Olanzapine 2.5 Mg Tablet) 2.5 mg PO BID PRN PRN Reason: anxiety/restlessness Last Admin: 10/12/23 17:19 Dose: 2.5 mg Olanzapine (Olanzapine 2.5 Mg Tablet) 2.5 mg PO BEDTIME [facility] Last Admin: 10/16/23 20:27 Dose: 2.5 mg Olanzapine (Olanzapine 2.5 Mg Tablet) 2.5 mg PO DAILY [facility] Last Admin: 10/16/23 09:09 Dose: 2.5 mg Omeprazole (Omeprazole 20 Mg Capsule.Dr) 20 mg PO DAILY@0630 [facility] Last Admin: 10/17/23 06:02 Dose: 20 mg Ondansetron HCl (Ondansetron Odt 4 Mg Tab.Rapdis) 4 mg TRANSLINGU Q8H PRN PRN Reason: Nausea and Vomiting Last Admin: 10/14/23 09:40 Dose: 4 mg Polyethylene Glycol (Polyethylene Glycol 3350 17 Gm Powd.Pack) 17 gm PO DAILY [facility] Last Admin: 10/17/23 08:15 Dose: 17 gm Propranolol HCl (Propranolol Hcl 10 Mg Tablet) 10 mg PO TID [facility]; Protocol Last Admin: 10/17/23 08:16 Dose: 10 mg Senna/Docusate Sodium (Sennosides/Docusate Sodium Tablet) 2 tab PO BID [facility] Last Admin: 10/17/23 08:17 Dose: 2 tab Tamsulosin HCl (Tamsulosin Hcl 0.4 Mg Capsule) 0.4 mg PO DAILY [facility] Last Admin: 10/17/23 08:16 Dose: 0.4 mg Thiamine HCl (Thiamine Hcl 100 Mg Tablet) 100 mg PO DAILY [facility] Last Admin: 10/17/23 08:16 Dose: 100 mg Vortioxetine (Vortioxetine Hydrobromide 10 Mg Tablet) 10 mg PO DAILY [facility] Last Admin: 10/17/23 08:17 Dose: 10 mg Allergies Allergies Allergy/AdvReac Type Severity Reaction Status Date / Time No Known Allergies Allergy Verified 08/27/23 10:27 Assessment & Plan Assessment & Plan (1) Bipolar II disorder: Status: Inactive Code(s): F31.81 - Bipolar II disorder (2) Delirium: Status: Resolved Code(s): R41.0 - Disorientation, unspecified (3) Depression, major, severe recurrence: Status: Acute Code(s): F33.2 - Major depressive disorder, recurrent severe without psychotic features (4) Hypertension: Status: Chronic Code(s): I10 - Essential (primary) hypertension (5) Odynophagia: Status: Acute Code(s): R13.10 - Dysphagia, unspecified Plan The patient is an elderly female with a past history of mood disorder, anxiety personality disorder NOS who was brought into the hospital for altered mental status after a short course of as provide of for depression. 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 After being medically cleared she was transferring to this facility for psychiatric stabilization. Plan 1. Gather collateral information. 2. Continue Risperdal and antidepressants as started the medicine. 3. Regular blood work and reassessment with results. 4. 15 minute checks. 5. Speech and swallow evaluation for possible change of diet. 09/30/23 add wellbutrin 75 mg non serotonergic trintellix 5 mg remains with some PI but improved encourage phys rehab 10/01/23 Patient shows improved mood and energy ambulating better more active. Concerns regarding her short-term memory remembering names and fears regarding strength in her has which do seem somewhat bilaterally diminished and some numbness tingling seems to be improving cont trintellix wellbutrin 10/02/2023 Patient generally trending upwards generally less depressed but complicated by periods of paranoia and then apprehension depression and despair feels like she can trust staff and somehow they are intentionally playing with her in some way denies self-harm Recent confusional episode lasting a number of weeks question all serotonergic syndrome delirium question related to S ketamine Encourage out of bed ambulation PT consult increase in Risperdal had recently been on Latuda Vraylar and Rexulti without clear benefit would maintain current low-dose Trintellix 5 mg Wellbutrin recently started 75 mg 10/03: Continue current management and treatment plan. 10/04: Continue current management and treatment plan. Medication changes per primary team Dr. Shearer that knows the patient well. 10/05/2023 Increase Trintellix to 10 mg increase Wellbutrin to 100 mg consider change Risperdal to olanzapine or Seroquel strongly consider ECT patient having difficulty with trust 10/06/23 stop risperadol olanzapine hs and prn 10/07/23 Pt anxious depressed inc trintellix 10 mg inc olanzapine 2.5 am 5 hs wellbutrin 100 mg am 10/08/2023 The patient reports depression, we will continue with Trintellix and we will lower Zyprexa up to 2.5 p.o. q.h.s. and keep p.r.n. 2.5 Zyprexa as needed for psychosis. 10/09 keep same treatment 10/10 restart propanolol 10mg po TID for essential tremors. 10/11 continue tx. 10/12/23 hopeless helpless pos pi inc olanzapine suspicious anxious ? ect 10/13/2023 Patient hopeless helpless despondent severely depressed has not responded to multiple antidepressant trials and augmentation strategies. She appears delusional the depressed hopeless helpless with thoughts that she would be better off denies current plan or intent reviewed risks benefits alternatives with patient son and patient is asking for ECT no medical contraindications. She did has some significant amnesia will maintain right unilateral no more than 2 times a week try and maintain at 0.25 pulse width there seemed to be few alternatives at this point EKG unremarkable 10/14/2023 Patient seen with her see ECT note 10/15/2023 Encourage increase head of bed continue physical therapy recent head CT was unremarkable neuro consult question neuropathy question left footdrop will get hospitalist consult continue Trintellix Wellbutrin 10/16/2023 Increase Wellbutrin to 150 mg daily monitor for hypertension agitation worsening constipation continue Trental X ECT scheduled for 3 days Needs much support and courage mint 10/17/23 Continue regime and plan of care. Informed Consent: further education needed Reason for continued inpatient stay Substantial Risk for: med/psych decompensation Time Spent With Patient Time: Total time managing care of this patient today ____ minutes.
[2023-10-17 15:00] VITALS: BP 134/64
[2023-10-17 19:30] VITALS: BP 139/63; PULSE 67; RESP 16; TEMP 36.2; O2SAT 97
[2023-10-17] MEDS: Ascorbic Acid 500 MG TABLET 2000 MG PO (20:38)
[2023-10-17] MEDS: LORazepam 0.5 MG TABLET PO (20:38)
[2023-10-18] MEDS: Omeprazole 20 MG CAPSULE.DR PO (05:51)
[2023-10-18 07:55] VITALS: BP 129/70; PULSE 86; RESP 18; TEMP 36.4; O2SAT 97
[2023-10-18] MEDS: Tamsulosin HCL 0.4 MG CAPSULE PO (08:27)
[2023-10-18] MEDS: Multivitamin TABLET 1 TAB PO (08:27)
[2023-10-18] MEDS: amLODIPine Besylate 5 MG TABLET PO (08:27)
[2023-10-18] MEDS: buPROPion HCl XL 150 MG TAB.ER.24H PO (08:27)
[2023-10-18] MEDS: polyethylene glycoL 3350 17 GM POWD.PACK PO (08:27)
[2023-10-18] MEDS: Vortioxetine Hydrobromide 10 MG TABLET PO (08:28)
[2023-10-18] MEDS: lisinopriL 5 MG TABLET 15 MG PO (08:28)
[2023-10-18] MEDS: Propranolol HCL 10 MG TABLET PO ×2 (08:28→21:23)
[2023-10-18] MEDS: OLANZapine 2.5 MG TABLET PO ×2 (08:28→21:23)
[2023-10-18] MEDS: Sennosides/Docusate Sodium TABLET 2 TAB PO ×2 (08:28→21:23)
[2023-10-18] MEDS: Thiamine HCL 100 MG TABLET PO (08:28)
[2023-10-18] MEDS: Fluticasone Propionate Nasal 16 GM SPRAY 1 SPRAY NOSTRIL-B ×2 (12:09→21:18)
[2023-10-18] MEDS: Brimonidine Tartrate 0.2% Oph 5 ML BOTTLE 1 DROP EYE-BOTH ×2 (12:09→21:17)
[2023-10-18 13:15] VITALS: BP 106/57
--- NOTE | 2023-10-18 14:29 | P.PNPSI_ITS ---
Subjective Subjective Date of Service: 10/18/23 Reason For Visit: Severe depression Interim History: Pt seen, reviewed with the team. Pt with two visitors who are attempting to engage her. She appears distant, distracted, anhedonic. Tells team she does not want to get up from bed. They are encouraging her to walk, manage constipation. She tells them she is too far advanced in age. They encourage her irregardless. Medication Compliance: Yes Side effects from medications: No Attending Groups: Intermittent Review of Systems Acute medical concerns: No Medical Review of Systems: unchanged Review of Systems Review of Systems Yes Unobtainable due to mental status Mental Status Exam Mental Status Exam Patient Appearance: Appropriate Patient Orientation: Person, Place and Situation Level of Consciousness: Awake and Appropriate Patient Behavior: Guarded, Cooperative, Passive and Anxious Mood Description: Withdrawn, Depressed and Flat Affect Description: Constricted and Depressed Patient Cognition Impaired: Yes Ability to Follow Directions: Good Speech Pattern: Clear and Impoverished Hallucinations: None Delusions: Not Present Thought Process: Distracted and Evasive Thought Content: positive for Orange and positive for Poverty of Content Depressive Symptoms: Difficulty Sleeping, Hopelessness, Unhappiness, Thoughts of /Suicide and Loss of Energy Judgement: Fair Diagnostics Vital Signs (24Hr): Vital Signs - 24 hr 10/17/23 15:00 10/17/23 19:30 10/18/23 07:55 Temperature 97.2 F 97.6 F Pulse Rate 67 86 Respiratory Rate 16 18 Blood Pressure 134/64 139/63 129/70 Pulse Oximetry 97 97 Oxygen Delivery Method Room Air Room Air BMI result Body Mass Index 19.5 Labs 10/13/23 13:22 10/13/23 13:22 Imaging Radiology Impressions: ITS Impressions Head CT 10/08/23 16:26 IMPRESSION: No acute intracranial process seen. Medications Medications Current Medications Acetaminophen (Acetaminophen 325 Mg Tablet) 650 mg PO Q4H PRN PRN Reason: Pain, Severe (Pain Scale 7-10) Last Admin: 10/15/23 10:29 Dose: 650 mg Al Hydroxide/Mg Hydroxide (Magnesium Hydrox/Alum Hydrox 30 Ml Oral.Susp) 30 ml PO Q6H PRN PRN Reason: Heartburn/Nausea Amlodipine Besylate (Amlodipine Besylate 5 Mg Tablet) 5 mg PO DAILY [facility]; Protocol Last Admin: 10/18/23 08:27 Dose: 5 mg Ascorbic Acid (Ascorbic Acid 500 Mg Tablet) 2,000 mg PO BEDTIME [facility] Last Admin: 10/17/23 20:38 Dose: 2,000 mg Bisacodyl (Bisacodyl 5 Mg Tablet.Dr) 10 mg PO DAILY PRN PRN Reason: Constipation Brimonidine Tartrate (Brimonidine Tartrate 0.2% Oph 5 Ml Bottle) 1 drop EYE- BOTH BID [facility] Last Admin: 10/18/23 12:09 Dose: 1 drop Bupropion HCl (Bupropion Hcl Xl 150 Mg Tab.Er.24h) 150 mg PO DAILY [facility] Last Admin: 10/18/23 08:27 Dose: 150 mg Fluticasone Propionate (Fluticasone Propionate Nasal 16 Gm [place]) 1 spray NOSTRIL-B BID [facility] Last Admin: 10/18/23 12:09 Dose: 1 spray Hydroxyzine HCl (Hydroxyzine Hcl 25 Mg Tablet) 25 mg PO Q6H PRN PRN Reason: Anxiety Last Admin: 10/15/23 10:29 Dose: 25 mg Lisinopril (Lisinopril 5 Mg Tablet) 15 mg PO DAILY [facility]; Protocol Last Admin: 10/18/23 08:28 Dose: 15 mg Lorazepam (Lorazepam 0.5 Mg Tablet) 0.5 mg PO Q4H PRN PRN Reason: Anxiety Last Admin: 10/17/23 20:38 Dose: 0.5 mg Magnesium Hydroxide (Milk Of Magnesia 30 Ml Oral.Susp) 30 ml PO DAILY PRN PRN Reason: Constipation Melatonin (Melatonin 3 Mg Tablet) 6 mg PO BEDTIME PRN PRN Reason: Insomnia Last Admin: 10/15/23 20:44 Dose: 6 mg Multivitamins/Vitamin C (Multivitamin Tablet) 1 tab PO DAILY [facility] Last Admin: 10/18/23 08:27 Dose: 1 tab Olanzapine (Olanzapine 2.5 Mg Tablet) 2.5 mg PO BID PRN PRN Reason: anxiety/restlessness Last Admin: 10/12/23 17:19 Dose: 2.5 mg Olanzapine (Olanzapine 2.5 Mg Tablet) 2.5 mg PO BEDTIME [facility] Last Admin: 10/17/23 20:38 Dose: 2.5 mg Olanzapine (Olanzapine 2.5 Mg Tablet) 2.5 mg PO DAILY [facility] Last Admin: 10/18/23 08:28 Dose: 2.5 mg Omeprazole (Omeprazole 20 Mg Capsule.Dr) 20 mg PO DAILY@0630 [facility] Last Admin: 10/18/23 05:51 Dose: 20 mg Ondansetron HCl (Ondansetron Odt 4 Mg Tab.Rapdis) 4 mg TRANSLINGU Q8H PRN PRN Reason: Nausea and Vomiting Last Admin: 10/14/23 09:40 Dose: 4 mg Polyethylene Glycol (Polyethylene Glycol 3350 17 Gm Powd.Pack) 17 gm PO DAILY [facility] Last Admin: 10/18/23 08:27 Dose: 17 gm Propranolol HCl (Propranolol Hcl 10 Mg Tablet) 10 mg PO TID [facility]; Protocol Last Admin: 10/18/23 08:28 Dose: 10 mg Senna/Docusate Sodium (Sennosides/Docusate Sodium Tablet) 2 tab PO BID [facility] Last Admin: 10/18/23 08:28 Dose: 2 tab Tamsulosin HCl (Tamsulosin Hcl 0.4 Mg Capsule) 0.4 mg PO DAILY [facility] Last Admin: 10/18/23 08:27 Dose: 0.4 mg Thiamine HCl (Thiamine Hcl 100 Mg Tablet) 100 mg PO DAILY [facility] Last Admin: 10/18/23 08:28 Dose: 100 mg Vortioxetine (Vortioxetine Hydrobromide 10 Mg Tablet) 10 mg PO DAILY [facility] Last Admin: 10/18/23 08:28 Dose: 10 mg Allergies Allergies Allergy/AdvReac Type Severity Reaction Status Date / Time No Known Allergies Allergy Verified 08/27/23 10:27 Assessment & Plan Assessment & Plan (1) Bipolar II disorder: Status: Inactive Code(s): F31.81 - Bipolar II disorder (2) Delirium: Status: Resolved Code(s): R41.0 - Disorientation, unspecified (3) Depression, major, severe recurrence: Status: Acute Code(s): F33.2 - Major depressive disorder, recurrent severe without psychotic features (4) Hypertension: Status: Chronic Code(s): I10 - Essential (primary) hypertension (5) Odynophagia: Status: Acute Code(s): R13.10 - Dysphagia, unspecified Plan The patient is an elderly female with a past history of mood disorder, anxiety personality disorder NOS who was brought into the hospital for altered mental status after a short course of as provide of for depression. 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 After being medically cleared she was transferring to this facility for psychiatric stabilization. Plan 1. Gather collateral information. 2. Continue Risperdal and antidepressants as started the medicine. 3. Regular blood work and reassessment with results. 4. 15 minute checks. 5. Speech and swallow evaluation for possible change of diet. 09/30/23 add wellbutrin 75 mg non serotonergic trintellix 5 mg remains with some PI but improved encourage phys rehab 10/01/23 Patient shows improved mood and energy ambulating better more active. Concerns regarding her short-term memory remembering names and fears regarding strength in her has which do seem somewhat bilaterally diminished and some numbness tingling seems to be improving cont trintellix wellbutrin 10/02/2023 Patient generally trending upwards generally less depressed but complicated by periods of paranoia and then apprehension depression and despair feels like she can trust staff and somehow they are intentionally playing with her in some way denies self-harm Recent confusional episode lasting a number of weeks question all serotonergic syndrome delirium question related to S ketamine Encourage out of bed ambulation PT consult increase in Risperdal had recently been on Latuda Vraylar and Rexulti without clear benefit would maintain current low-dose Trintellix 5 mg Wellbutrin recently started 75 mg 10/03: Continue current management and treatment plan. 10/04: Continue current management and treatment plan. Medication changes per primary team Dr. Shearer that knows the patient well. 10/05/2023 Increase Trintellix to 10 mg increase Wellbutrin to 100 mg consider change Risperdal to olanzapine or Seroquel strongly consider ECT patient having difficulty with trust 10/06/23 stop risperadol olanzapine hs and prn 10/07/23 Pt anxious depressed inc trintellix 10 mg inc olanzapine 2.5 am 5 hs wellbutrin 100 mg am 10/08/2023 The patient reports depression, we will continue with Trintellix and we will lower Zyprexa up to 2.5 p.o. q.h.s. and keep p.r.n. 2.5 Zyprexa as needed for psychosis. 10/09 keep same treatment 10/10 restart propanolol 10mg po TID for essential tremors. 10/11 continue tx. 10/12/23 hopeless helpless pos pi inc olanzapine suspicious anxious ? ect 10/13/2023 Patient hopeless helpless despondent severely depressed has not responded to multiple antidepressant trials and augmentation strategies. She appears delusional the depressed hopeless helpless with thoughts that she would be better off denies current plan or intent reviewed risks benefits alternatives with patient son and patient is asking for ECT no medical contraindications. She did has some significant amnesia will maintain right unilateral no more than 2 times a week try and maintain at 0.25 pulse width there seemed to be few alternatives at this point EKG unremarkable 10/14/2023 Patient seen with her see ECT note 10/15/2023 Encourage increase head of bed continue physical therapy recent head CT was unremarkable neuro consult question neuropathy question left footdrop will get hospitalist consult continue Trintellix Wellbutrin 10/16/2023 Increase Wellbutrin to 150 mg daily monitor for hypertension agitation worsening constipation continue Trental X ECT scheduled for 3 days Needs much support and courage mint 10/17/23 Continue regime and plan of care. 10/18/23 Continue regime and plan of care. Informed Consent: further education needed Reason for continued inpatient stay Substantial Risk for: med/psych decompensation Time Spent With Patient Time: Total time managing care of this patient today ____ minutes.
[2023-10-18 18:00] VITALS: BP 132/59; PULSE 68; RESP 18; TEMP 36.4; O2SAT 98
[2023-10-18] MEDS: Ascorbic Acid 500 MG TABLET 2000 MG PO (21:27)
[2023-10-19] VITALS (11 sets, daily range): BP systolic 116–165; BP diastolic 48–75; PULSE 71–90; RESP 16–18; TEMP 36.2–37.1; O2SAT 94–98; BMI 19.3
--- NOTE | 2023-10-19 06:43 | HO.ANESPROP2 ---
[facility] Active Problems Active Problems: All Active Problems (Updated 10/16/23 @ 13:45 by Lucia Garcia MD) Footdrop (Acute) Major depressive disorder, recurrent severe without psychotic features (Acute) Personality disorder (Acute) Organic catatonia (Acute) Abnormal EKG (Acute) Odynophagia (Acute) Paranoia (Acute) Dysphagia (Acute) Serotonin syndrome (Acute) Ataxia (Acute) Tremors of nervous system (Acute) Major depression in full remission (Acute) Depression, major, severe recurrence (Acute) Memory deficit (Acute) ADHD (attention deficit hyperactivity disorder) (Acute) ZAC (generalized anxiety disorder) (Acute) Depression (Acute) Pre-op evaluation (Acute) Acute bacterial conjunctivitis of both eyes (Acute) Hypercalcemia (Acute) Hypothyroidism (Acute) Leukocytosis (Acute) Hypertension (Chronic) Past Medical History Medical History Urinary tract infection Depression Hypothyroidism ZAC (generalized anxiety disorder) Hypertension ADHD (attention deficit hyperactivity disorder) Family History Family History Other No pertinent family history Family history of problems with anesthesia: No Surgical History Surgical History H/O thumb surgery H/O cone biopsy of cervix History of Problems with Anesthesia: No Social History Social History Household Members: Spouse Household Members Other:: And two cats. Housing: House Do you presently have visiting nurse or other home services: No Unable to assess alcohol history related to: Unknown Alcohol intake: never Comment: 1:1 sitter Patient Tobacco Use Status: Former Tobacco user Quit Date: 20 years [facility] Tobacco use type: Cigarette Years Smoked: 20 Smoked in Last 30 Days: No e-Cigarette/Vaping Use: Never Used Patient Interested in Nicotine Replacement: No (n/a) Patient Given Instructions on How to Stop Smoking: No (n/a) Second Hand Smoke Exposure: No Use of substances other than those prescribed or required for medical reasons: No Substance Use Type: Former Substance User and Marijuana Last Used Substance Other:: 2 years Currently Displaying Signs/Symptoms of Drug Intoxication Withdrawal: No Any prior treatment program specific to substance use: No Have you been hit, kicked, punched, or otherwise hurt by someone within the past year? If so, by whom?: No Do you feel safe in your current relationship?: Yes Is there a partner from a previous relationship who is making you feel unsafe now?: No Are you made to feel afraid or neglected: No Spiritual Healthcare Practices: no Taoism Healthcare Practices: no Cultural Healthcare Practices: no Advance Directives: No Advance Directives Information Provided: No (declined) Advance Directives on File: No Do you have thoughts of harming others: None Do you have a plan to hurt others: No Plan Recently lost weight without trying: Yes How much weight loss: Unsure Eating poorly because of decreased appetite: Yes Nutrition screen score: 5 Patient : No : No Poor oral hygiene: No service: No Sexual orientation: Straight/Heterosexual Meds Allergies Allergy/AdvReac Type Severity Reaction Status Date / Time No Known Allergies Allergy Verified 08/27/23 10:27 Active Medications: Current Medications Acetaminophen (Acetaminophen 325 Mg Tablet) 650 mg PO Q4H PRN PRN Reason: Pain, Severe (Pain Scale 7-10) Last Admin: 10/15/23 10:29 Dose: 650 mg Al Hydroxide/Mg Hydroxide (Magnesium Hydrox/Alum Hydrox 30 Ml Oral.Susp) 30 ml PO Q6H PRN PRN Reason: Heartburn/Nausea Amlodipine Besylate (Amlodipine Besylate 5 Mg Tablet) 5 mg PO DAILY [facility]; Protocol Last Admin: 10/18/23 08:27 Dose: 5 mg Ascorbic Acid (Ascorbic Acid 500 Mg Tablet) 2,000 mg PO BEDTIME [facility] Last Admin: 10/18/23 21:27 Dose: 2,000 mg Bisacodyl (Bisacodyl 5 Mg Tablet.Dr) 10 mg PO DAILY PRN PRN Reason: Constipation Brimonidine Tartrate (Brimonidine Tartrate 0.2% Oph 5 Ml Bottle) 1 drop EYE-BOTH BID [facility] Last Admin: 10/18/23 21:17 Dose: 1 drop Bupropion HCl (Bupropion Hcl Xl 150 Mg Tab.Er.24h) 150 mg PO DAILY [facility] Last Admin: 10/18/23 08:27 Dose: 150 mg Fluticasone Propionate (Fluticasone Propionate Nasal 16 Gm [place]) 1 spray NOSTRIL-B BID [facility] Last Admin: 10/18/23 21:18 Dose: 1 spray Hydroxyzine HCl (Hydroxyzine Hcl 25 Mg Tablet) 25 mg PO Q6H PRN PRN Reason: Anxiety Last Admin: 10/15/23 10:29 Dose: 25 mg Lisinopril (Lisinopril 5 Mg Tablet) 15 mg PO DAILY [facility]; Protocol Last Admin: 10/18/23 08:28 Dose: 15 mg Lorazepam (Lorazepam 0.5 Mg Tablet) 0.5 mg PO Q4H PRN PRN Reason: Anxiety Last Admin: 10/17/23 20:38 Dose: 0.5 mg Magnesium Hydroxide (Milk Of Magnesia 30 Ml Oral.Susp) 30 ml PO DAILY PRN PRN Reason: Constipation Melatonin (Melatonin 3 Mg Tablet) 6 mg PO BEDTIME PRN PRN Reason: Insomnia Last Admin: 10/15/23 20:44 Dose: 6 mg Multivitamins/Vitamin C (Multivitamin Tablet) 1 tab PO DAILY [facility] Last Admin: 10/18/23 08:27 Dose: 1 tab Olanzapine (Olanzapine 2.5 Mg Tablet) 2.5 mg PO BID PRN PRN Reason: anxiety/restlessness Last Admin: 10/12/23 17:19 Dose: 2.5 mg Olanzapine (Olanzapine 2.5 Mg Tablet) 2.5 mg PO BEDTIME [facility] Last Admin: 10/18/23 21:23 Dose: 2.5 mg Olanzapine (Olanzapine 2.5 Mg Tablet) 2.5 mg PO DAILY [facility] Last Admin: 10/18/23 08:28 Dose: 2.5 mg Omeprazole (Omeprazole 20 Mg Capsule.Dr) 20 mg PO DAILY@0630 [facility] Last Admin: 10/19/23 05:55 Dose: Not Given Ondansetron HCl (Ondansetron Odt 4 Mg Tab.Rapdis) 4 mg TRANSLINGU Q8H PRN PRN Reason: Nausea and Vomiting Last Admin: 10/14/23 09:40 Dose: 4 mg Polyethylene Glycol (Polyethylene Glycol 3350 17 Gm Powd.Pack) 17 gm PO DAILY [facility] Last Admin: 10/18/23 08:27 Dose: 17 gm Propranolol HCl (Propranolol Hcl 10 Mg Tablet) 10 mg PO TID [facility]; Protocol Last Admin: 10/18/23 21:23 Dose: 10 mg Senna/Docusate Sodium (Sennosides/Docusate Sodium Tablet) 2 tab PO BID [facility] Last Admin: 10/18/23 21:23 Dose: 2 tab Tamsulosin HCl (Tamsulosin Hcl 0.4 Mg Capsule) 0.4 mg PO DAILY [facility] Last Admin: 10/18/23 08:27 Dose: 0.4 mg Thiamine HCl (Thiamine Hcl 100 Mg Tablet) 100 mg PO DAILY [facility] Last Admin: 10/18/23 08:28 Dose: 100 mg Vortioxetine (Vortioxetine Hydrobromide 10 Mg Tablet) 10 mg PO DAILY [facility] Last Admin: 10/18/23 08:28 Dose: 10 mg Home Medications Medication Instructions Recorded Confirmed Last Taken Type amlodipine 5 mg tablet 10 mg PO DAILY 10/23/22 08/27/23 10/23/22 History fluticasone propionate 50 1 spray intranasal BID 08/27/23 08/27/23 Unknown History mcg/actuation nasal spray,suspension propranolol 20 mg tablet 20 mg PO BID 08/27/23 08/27/23 Unknown History Exam Height,Weight and Vital Signs: Height 5 ft 1 in Weight 46.7 kg Last Vital Signs Temp 97.6 F 10/18/23 07:55 Pulse 86 10/18/23 07:55 Resp 18 10/18/23 07:55 BP 106/57 L 10/18/23 13:15 Pulse Ox 97 10/18/23 07:55 O2 Del Method Room Air 10/18/23 07:55 O2 Flow Rate 2 10/14/23 08:29 Pertinent Lab Results Pertinent Lab Results: Laboratory Tests 09/28/23 09/29/23 10/13/23 14:09 07:53 13:22 WBC 8.0 RBC 3.92 L Hgb 11.4 L Hct 36.0 L MCV 91.8 MCH 29.1 MCHC 31.7 RDW 14.1 Plt Count 290 MPV 9.5 Immature Gran % (Auto) 0.5 H Neut % (Auto) 74.2 H Lymph % (Auto) 14.1 L [place] % (Auto) 8.4 Eos % (Auto) 2.4 Baso % (Auto) 0.4 Lymph # (Auto) 1.1 L [place] # (Auto) 0.7 Eos # (Auto) 0.2 Baso # (Auto) 0.0 Abs Immat Gran (auto) 0.04 H Absolute Neuts (auto) 5.9 Absolute Nucleated RBC 0.000 Nucleated RBC % (auto) 0.0 Sodium 144 139 Potassium 4.0 4.9 D Chloride 105 105 Carbon Dioxide 31 H 30 H Anion Gap 12 9 L BUN 14 16 Creatinine 0.82 0.76 1.03 Estim Creat Clear Calc TNP 48.5 36.6 Estimated GFR > 60 > 60 53 Random Glucose 115 Fasting Glucose 133 H Calcium 10.6 H D 9.6 D Total Bilirubin 0.3 0.2 AST 96 H 21 ALT 178 H 35 H Alkaline Phosphatase 129 H 86 Total Protein 6.2 L 5.5 L Albumin 3.4 L 3.1 L Triglycerides 131 Cholesterol 208 H LDL Cholesterol, Calc 140 H HDL Cholesterol 42 Airway Mallampati Class: II (missing multiple teeth) TM Dist: >3cm Neck ROM: Full Heart: rrr Lungs: cta Assessment and Plan Assessment Anesthesia Assessment: Anesthesia Plan Discussed and Chart Reviewed Final Anesthetic Review Family History of Problems with Anesthesia: No History of Problems with Anesthesia: No NPO: Yes ASA Class: III Final Preanesthetic Review: No Changes in Pt Med Stat, Meds/Allgs Chart Reviewed and Consent Obtained/Reviewed Patient Risk: Intermediate Procedure Risk: Intermediate Anesthetic Plan Anesthetic Plan: GA Disposition: Standard PACU
--- NOTE | 2023-10-19 07:06 | MHC.SHP ---
Pre-Procedural Eval Section A Date of Service: 10/19/23 The patient is an INPATIENT: Yes Changes since office visit: No Cold of Flu in the past 2 weeks, No New Medical Problems, No Changes in Medication and No Patient answered all questions The History & Physical has been completed within 30 days and I have reviewed it.: Yes Section B Chief Complaint: Severe depression Allergies: Allergies Allergy/AdvReac Type Severity Reaction Status Date / Time No Known Allergies Allergy Verified 08/27/23 10:27 Plan I have reviewed the history and physical and performed a pertinent physical examination on my patient. No changes have occurred unless specified. Time Spent With Patient Time: Total time managing care of this patient today ____ minutes.
--- NOTE | 2023-10-19 07:18 | HO.ECTPROC ---
ECT Procedure Note Diagnosis/Treatment Date of Service: 10/19/23 Diagnosis: Bipolar disorder Previous ECT Date: 10/14/23 Current Treatment Number: 2 Treatment: Series Interval Clinical Notes: The patient remains clinically depressed, she had her fist ECT last week with no evidence of delirium or confusion post ECT. Today, she was reluctant initially to have ECT, I explained that we don't do this procedure against patient's will and she can cancel but so far, she has not improved and ECT will be beneficial for her. She decided to have the procedure. No cognitive compliants after ECT last time, her only complaint was nausea after IV line was discontinued. We discussed options with anestesiologist team and we agreed to put an escopolomine patch before ECT instead of more Zofran since it could interact with SSRis. ECT done with changes on the paramenters, as suggested, we increase the % up to 85 and kept on 0.25. No complications, woke up with no new symptoms. Time: Total time managing care of this patient today ____ minutes. ECT Settings Device: THYMATRON DGx Electrode Placement: Right Unilateral Program/Pulse Width: 0.25 Energy Percent: 85 Seizure Duration By EEG (in seconds): 33 By Motor Observation (in seconds): 19 Medications Administration General Anesthetic: Methohexital (80) Muscle Relaxant: Succinylcholine (80) Ancillary Medications Analgesics: Torodol - Pre ECT Anti-emetics: Zofran - Pre ECT Miscillaneous Medications: Propofol and Other (Escopolamine patch before ECT on the right ear.) Airway Management Airway Management: Bag Mask Ventilation Treatment Recommendations No Changes Recommended: No change Pt Tolerated Procedure w/o Issue: Yes
[2023-10-19] MEDS: Scopolamine 1.5 MG PATCH.TD.3 TRANSDERMA (08:01)
--- NOTE | 2023-10-19 09:50 | PC.NURSE ---
Per PACU: Left ear scopolamine patch, leave on 3 days.
[2023-10-19] MEDS: lisinopriL 5 MG TABLET 15 MG PO (09:53)
[2023-10-19] MEDS: Omeprazole 20 MG CAPSULE.DR PO (09:55)
[2023-10-19] MEDS: amLODIPine Besylate 5 MG TABLET PO (09:55)
--- NOTE | 2023-10-19 09:55 | P.PNPSI_ITS ---
Subjective Subjective Date of Service: 10/22/23 Reason For Visit: Severe depression Subjective Notes: Conditional Voluntary Guardianship: No Medical Problems Affecting Mental Status: No Interim History: The patient is somewhat less depressed apprehensive about whether she is going to fully recover still needing to use a walker left foot difficulty with dorsiflexion and some swelling tolerated 2nd ECT Medication Compliance: Yes Attending Groups: Yes Review of Systems Problems with left foot dorsiflexion Mental Status Exam Mental Status Exam Patient Appearance: Appropriate Patient Orientation: Person and Situation Level of Consciousness: Awake and Appropriate Patient Behavior: Guarded and Passive Mood Description: Withdrawn Affect Description: Constricted Patient Cognition Impaired: Yes Ability to Follow Directions: Good Speech Pattern: Clear Hallucinations: None Delusions: Ideas of Reference Thought Process: Linear Thought Content: positive for [place] and positive for Poverty of Content Judgement: Fair Diagnostics Vital Signs (24Hr): Vital Signs - 24 hr 10/18/23 13:15 10/18/23 18:00 10/19/23 06:42 Temperature 97.6 F 97.1 F Pulse Rate 68 90 Respiratory Rate 18 16 Blood Pressure 106/57 L 132/59 L 162/75 H Pulse Oximetry 98 96 Oxygen Delivery Method Room Air Oxygen Flow Rate 10/19/23 06:42 10/19/23 08:12 10/19/23 08:17 Temperature 97.5 F 98.8 F Pulse Rate 75 71 80 Respiratory Rate 17 16 17 Blood Pressure 140/58 H 147/48 H 124/56 L Pulse Oximetry 94 98 95 Oxygen Delivery Method Room Air Nasal Cannula with ETCO2 Nasal Cannula with ETCO2 Oxygen Flow Rate 2 2 10/19/23 08:22 10/19/23 08:27 10/19/23 08:42 Temperature Pulse Rate 82 85 79 Respiratory Rate 18 18 16 Blood Pressure 130/54 L 140/58 H 145/63 H Pulse Oximetry 95 95 96 Oxygen Delivery Method Nasal Cannula with ETCO2 Nasal Cannula with ETCO2 Room Air Oxygen Flow Rate 2 2 10/19/23 08:57 10/19/23 09:12 10/19/23 09:43 Temperature 98.3 F 98.3 F 97.7 F Pulse Rate 74 73 74 Respiratory Rate 16 16 18 Blood Pressure 148/57 H 146/66 H 165/65 H Pulse Oximetry 94 94 96 Oxygen Delivery Method Room Air Room Air Room Air Oxygen Flow Rate BMI result Body Mass Index 19.3 Labs 10/13/23 13:22 10/13/23 13:22 Imaging Radiology Impressions: ITS Impressions Head CT 10/08/23 16:26 IMPRESSION: No acute intracranial process seen. Medications Medications Current Medications Acetaminophen (Acetaminophen 325 Mg Tablet) 650 mg PO Q4H PRN PRN Reason: Pain, Severe (Pain Scale 7-10) Last Admin: 10/15/23 10:29 Dose: 650 mg Al Hydroxide/Mg Hydroxide (Magnesium Hydrox/Alum Hydrox 30 Ml Oral.Susp) 30 ml PO Q6H PRN PRN Reason: Heartburn/Nausea Amlodipine Besylate (Amlodipine Besylate 5 Mg Tablet) 5 mg PO DAILY [facility]; Protocol Last Admin: 10/18/23 08:27 Dose: 5 mg Ascorbic Acid (Ascorbic Acid 500 Mg Tablet) 2,000 mg PO BEDTIME NORBERTO Last Admin: 10/18/23 21:27 Dose: 2,000 mg Bisacodyl (Bisacodyl 5 Mg Tablet.Dr) 10 mg PO DAILY PRN PRN Reason: Constipation Brimonidine Tartrate (Brimonidine Tartrate 0.2% Oph 5 Ml Bottle) 1 drop EYE- BOTH BID [facility] Last Admin: 10/18/23 21:17 Dose: 1 drop Bupropion HCl (Bupropion Hcl Xl 150 Mg Tab.Er.24h) 150 mg PO DAILY [facility] Last Admin: 10/18/23 08:27 Dose: 150 mg Fluticasone Propionate (Fluticasone Propionate Nasal 16 Gm [place]) 1 spray NOSTRIL-B BID [facility] Last Admin: 10/18/23 21:18 Dose: 1 spray Hydroxyzine HCl (Hydroxyzine Hcl 25 Mg Tablet) 25 mg PO Q6H PRN PRN Reason: Anxiety Last Admin: 10/15/23 10:29 Dose: 25 mg Lisinopril (Lisinopril 5 Mg Tablet) 15 mg PO DAILY [facility]; Protocol Last Admin: 10/19/23 09:53 Dose: 15 mg Lorazepam (Lorazepam 0.5 Mg Tablet) 0.5 mg PO Q4H PRN PRN Reason: Anxiety Last Admin: 10/17/23 20:38 Dose: 0.5 mg Magnesium Hydroxide (Milk Of Magnesia 30 Ml Oral.Susp) 30 ml PO DAILY PRN PRN Reason: Constipation Melatonin (Melatonin 3 Mg Tablet) 6 mg PO BEDTIME PRN PRN Reason: Insomnia Last Admin: 10/15/23 20:44 Dose: 6 mg Multivitamins/Vitamin C (Multivitamin Tablet) 1 tab PO DAILY [facility] Last Admin: 10/18/23 08:27 Dose: 1 tab Olanzapine (Olanzapine 2.5 Mg Tablet) 2.5 mg PO BID PRN PRN Reason: anxiety/restlessness Last Admin: 10/12/23 17:19 Dose: 2.5 mg Olanzapine (Olanzapine 2.5 Mg Tablet) 2.5 mg PO BEDTIME NORBERTO Last Admin: 10/18/23 21:23 Dose: 2.5 mg Olanzapine (Olanzapine 2.5 Mg Tablet) 2.5 mg PO DAILY [facility] Last Admin: 10/18/23 08:28 Dose: 2.5 mg Omeprazole (Omeprazole 20 Mg Capsule.Dr) 20 mg PO DAILY@0630 [facility] Last Admin: 10/18/23 05:51 Dose: 20 mg Ondansetron HCl (Ondansetron Odt 4 Mg Tab.Rapdis) 4 mg TRANSLINGU Q8H PRN PRN Reason: Nausea and Vomiting Last Admin: 10/14/23 09:40 Dose: 4 mg Polyethylene Glycol (Polyethylene Glycol 3350 17 Gm Powd.Pack) 17 gm PO DAILY [facility] Last Admin: 10/18/23 08:27 Dose: 17 gm Propranolol HCl (Propranolol Hcl 10 Mg Tablet) 10 mg PO TID [facility]; Protocol Last Admin: 10/18/23 21:23 Dose: 10 mg Senna/Docusate Sodium (Sennosides/Docusate Sodium Tablet) 2 tab PO BID [facility] Last Admin: 10/18/23 21:23 Dose: 2 tab Tamsulosin HCl (Tamsulosin Hcl 0.4 Mg Capsule) 0.4 mg PO DAILY [facility] Last Admin: 10/18/23 08:27 Dose: 0.4 mg Thiamine HCl (Thiamine Hcl 100 Mg Tablet) 100 mg PO DAILY [facility] Last Admin: 10/18/23 08:28 Dose: 100 mg Vortioxetine (Vortioxetine Hydrobromide 10 Mg Tablet) 10 mg PO DAILY [facility] Last Admin: 10/18/23 08:28 Dose: 10 mg Allergies Allergies Allergy/AdvReac Type Severity Reaction Status Date / Time No Known Allergies Allergy Verified 08/27/23 10:27 Assessment & Plan Assessment & Plan (1) Bipolar II disorder: Status: Inactive Code(s): F31.81 - Bipolar II disorder (2) Delirium: Status: Resolved Code(s): R41.0 - Disorientation, unspecified (3) Depression, major, severe recurrence: Status: Acute Code(s): F33.2 - Major depressive disorder, recurrent severe without psychotic features (4) Hypertension: Status: Chronic Code(s): I10 - Essential (primary) hypertension (5) Odynophagia: Status: Acute Code(s): R13.10 - Dysphagia, unspecified (6) Major depressive disorder, recurrent severe without psychotic features: Status: Acute Code(s): F33.2 - Major depressive disorder, recurrent severe without psychotic features Plan The patient is an elderly female with a past history of mood disorder, anxiety personality disorder NOS who was brought into the hospital for altered mental status after a short course of as provide of for depression. 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 After being medically cleared she was transferring to this facility for psychiatric stabilization. Plan 1. Gather collateral information. 2. Continue Risperdal and antidepressants as started the medicine. 3. Regular blood work and reassessment with results. 4. 15 minute checks. 5. Speech and swallow evaluation for possible change of diet. 09/30/23 add wellbutrin 75 mg non serotonergic trintellix 5 mg remains with some PI but improved encourage phys rehab 10/01/23 Patient shows improved mood and energy ambulating better more active. Concerns regarding her short-term memory remembering names and fears regarding strength in her has which do seem somewhat bilaterally diminished and some numbness tingling seems to be improving cont trintellix wellbutrin 10/02/2023 Patient generally trending upwards generally less depressed but complicated by periods of paranoia and then apprehension depression and despair feels like she can trust staff and somehow they are intentionally playing with her in some way denies self-harm Recent confusional episode lasting a number of weeks question all serotonergic syndrome delirium question related to S ketamine Encourage out of bed ambulation PT consult increase in Risperdal had recently been on Latuda Vraylar and Rexulti without clear benefit would maintain current low-dose Trintellix 5 mg Wellbutrin recently started 75 mg 10/03: Continue current management and treatment plan. 10/04: Continue current management and treatment plan. Medication changes per primary team Dr. Shearer that knows the patient well. 10/05/2023 Increase Trintellix to 10 mg increase Wellbutrin to 100 mg consider change Risperdal to olanzapine or Seroquel strongly consider ECT patient having difficulty with trust 10/06/23 stop risperadol olanzapine hs and prn 10/07/23 Pt anxious depressed inc trintellix 10 mg inc olanzapine 2.5 am 5 hs wellbutrin 100 mg am 10/08/2023 The patient reports depression, we will continue with Trintellix and we will lower Zyprexa up to 2.5 p.o. q.h.s. and keep p.r.n. 2.5 Zyprexa as needed for psychosis. 10/09 keep same treatment 10/10 restart propanolol 10mg po TID for essential tremors. 10/11 continue tx. 10/12/23 hopeless helpless pos pi inc olanzapine suspicious anxious ? ect 10/13/2023 Patient hopeless helpless despondent severely depressed has not responded to multiple antidepressant trials and augmentation strategies. She appears delusional the depressed hopeless helpless with thoughts that she would be better off denies current plan or intent reviewed risks benefits alternatives with patient son and patient is asking for ECT no medical contraindications. She did has some significant amnesia will maintain right unilateral no more than 2 times a week try and maintain at 0.25 pulse width there seemed to be few alternatives at this point EKG unremarkable 10/14/2023 Patient seen with her see ECT note 10/15/2023 Encourage increase head of bed continue physical therapy recent head CT was unremarkable neuro consult question neuropathy question left footdrop will get hospitalist consult continue Trintellix Wellbutrin 10/16/2023 Increase Wellbutrin to 150 mg daily monitor for hypertension agitation worsening constipation continue Trental X ECT scheduled for 3 days Needs much support and courage mint 10/17/23 Continue regime and plan of care. 10/18/23 Continue regime and plan of care. 10/22/23 Pt seen in f/u cont ect consider inc 3 x wk ck l foot xr Reason for continued inpatient stay Substantial Risk for: harm to self, inability to function and rapid decompensation Time Spent With Patient Time: Total time managing care of this patient today ____ minutes.
[2023-10-19] MEDS: Tamsulosin HCL 0.4 MG CAPSULE PO (09:56)
[2023-10-19] MEDS: Vortioxetine Hydrobromide 10 MG TABLET PO (09:56)
[2023-10-19] MEDS: buPROPion HCl XL 150 MG TAB.ER.24H PO (09:56)
[2023-10-19] MEDS: Propranolol HCL 10 MG TABLET PO ×3 (09:56→23:01)
[2023-10-19] MEDS: Sennosides/Docusate Sodium TABLET 2 TAB PO (09:57)
[2023-10-19] MEDS: Multivitamin TABLET 1 TAB PO (09:57)
[2023-10-19] MEDS: OLANZapine 2.5 MG TABLET PO ×2 (09:57→23:01)
[2023-10-19] MEDS: Thiamine HCL 100 MG TABLET PO (09:57)
[2023-10-19] MEDS: Fluticasone Propionate Nasal 16 GM SPRAY 1 SPRAY NOSTRIL-B ×2 (09:58→23:05)
[2023-10-19] MEDS: polyethylene glycoL 3350 17 GM POWD.PACK PO (09:58)
[2023-10-19] MEDS: Brimonidine Tartrate 0.2% Oph 5 ML BOTTLE 1 DROP EYE-BOTH ×2 (09:58→23:06)
--- NOTE | 2023-10-19 13:11 | PC.NURSE ---
Patient returned from ECT this morning. Vital signs are stable. patient has Scopolamine patch behind left ear. Patient refused breakfast. She had a moderate soft bowel movement and some urine leakage in her brief. Toileted and cleansed self with SBA. Back to bed. Up for meals. Still complaining of high anxiety and depression.
--- NOTE | 2023-10-19 14:00 | P.PNPSI_ITS ---
Subjective Subjective Date of Service: 10/19/23 Reason For Visit: Severe depression Subjective Notes: Conditional Voluntary Interim History: The nursing staff reported the patient had been dysphoric most of the time in her bed. Today we had ECT and she did not have any major side effects no major confusion after the procedure. On interview the patient reports major dysphoria, no energy. No improvement with ECT yet. Mental Status Exam Mental Status Exam Patient Appearance: Appropriate Patient Orientation: Person and Situation Level of Consciousness: Awake and Appropriate Patient Behavior: Guarded and Passive Mood Description: Withdrawn Affect Description: Blunted Patient Cognition Impaired: Yes Ability to Follow Directions: Good Speech Pattern: Clear Hallucinations: None Delusions: Not Present Thought Process: Distracted and Evasive Thought Content: positive for [place] and positive for Poverty of Content Judgement: Fair Diagnostics Vital Signs (24Hr): Vital Signs - 24 hr 10/18/23 18:00 10/19/23 06:42 10/19/23 06:42 Temperature 97.6 F 97.1 F 97.5 F Pulse Rate 68 90 75 Respiratory Rate 18 16 17 Blood Pressure 132/59 L 162/75 H 140/58 H Pulse Oximetry 98 96 94 Oxygen Delivery Method Room Air Room Air Oxygen Flow Rate 10/19/23 08:12 10/19/23 08:17 10/19/23 08:22 Temperature 98.8 F Pulse Rate 71 80 82 Respiratory Rate 16 17 18 Blood Pressure 147/48 H 124/56 L 130/54 L Pulse Oximetry 98 95 95 Oxygen Delivery Method Nasal Cannula with ETCO2 Nasal Cannula with ETCO2 Nasal Cannula with ETCO2 Oxygen Flow Rate 2 2 2 10/19/23 08:27 10/19/23 08:42 10/19/23 08:57 Temperature 98.3 F Pulse Rate 85 79 74 Respiratory Rate 18 16 16 Blood Pressure 140/58 H 145/63 H 148/57 H Pulse Oximetry 95 96 94 Oxygen Delivery Method Nasal Cannula with ETCO2 Room Air Room Air Oxygen Flow Rate 2 10/19/23 09:12 10/19/23 09:43 Temperature 98.3 F 97.7 F Pulse Rate 73 74 Respiratory Rate 16 18 Blood Pressure 146/66 H 165/65 H Pulse Oximetry 94 96 Oxygen Delivery Method Room Air Room Air Oxygen Flow Rate BMI result Body Mass Index 19.3 Labs 10/13/23 13:22 10/13/23 13:22 Imaging Radiology Impressions: ITS Impressions Head CT 10/08/23 16:26 IMPRESSION: No acute intracranial process seen. Medications Medications Current Medications Acetaminophen (Acetaminophen 325 Mg Tablet) 650 mg PO Q4H PRN PRN Reason: Pain, Severe (Pain Scale 7-10) Last Admin: 10/15/23 10:29 Dose: 650 mg Al Hydroxide/Mg Hydroxide (Magnesium Hydrox/Alum Hydrox 30 Ml Oral.Susp) 30 ml PO Q6H PRN PRN Reason: Heartburn/Nausea Amlodipine Besylate (Amlodipine Besylate 5 Mg Tablet) 5 mg PO DAILY [facility]; Protocol Last Admin: 10/19/23 09:55 Dose: 5 mg Ascorbic Acid (Ascorbic Acid 500 Mg Tablet) 2,000 mg PO BEDTIME NORBERTO Last Admin: 10/18/23 21:27 Dose: 2,000 mg Bisacodyl (Bisacodyl 5 Mg Tablet.Dr) 10 mg PO DAILY PRN PRN Reason: Constipation Brimonidine Tartrate (Brimonidine Tartrate 0.2% Oph 5 Ml Bottle) 1 drop EYE- BOTH BID [facility] Last Admin: 10/19/23 09:58 Dose: 1 drop Bupropion HCl (Bupropion Hcl Xl 150 Mg Tab.Er.24h) 150 mg PO DAILY [facility] Last Admin: 10/19/23 09:56 Dose: 150 mg Fluticasone Propionate (Fluticasone Propionate Nasal 16 Gm [place]) 1 spray NOSTRIL-B BID [facility] Last Admin: 10/19/23 09:58 Dose: 1 spray Hydroxyzine HCl (Hydroxyzine Hcl 25 Mg Tablet) 25 mg PO Q6H PRN PRN Reason: Anxiety Last Admin: 10/15/23 10:29 Dose: 25 mg Lisinopril (Lisinopril 5 Mg Tablet) 15 mg PO DAILY [facility]; Protocol Last Admin: 10/19/23 09:53 Dose: 15 mg Lorazepam (Lorazepam 0.5 Mg Tablet) 0.5 mg PO Q4H PRN PRN Reason: Anxiety Last Admin: 10/17/23 20:38 Dose: 0.5 mg Magnesium Hydroxide (Milk Of Magnesia 30 Ml Oral.Susp) 30 ml PO DAILY PRN PRN Reason: Constipation Melatonin (Melatonin 3 Mg Tablet) 6 mg PO BEDTIME PRN PRN Reason: Insomnia Last Admin: 10/15/23 20:44 Dose: 6 mg Multivitamins/Vitamin C (Multivitamin Tablet) 1 tab PO DAILY [facility] Last Admin: 10/19/23 09:57 Dose: 1 tab Olanzapine (Olanzapine 2.5 Mg Tablet) 2.5 mg PO BID PRN PRN Reason: anxiety/restlessness Last Admin: 10/12/23 17:19 Dose: 2.5 mg Olanzapine (Olanzapine 2.5 Mg Tablet) 2.5 mg PO BEDTIME [facility] Last Admin: 10/18/23 21:23 Dose: 2.5 mg Olanzapine (Olanzapine 2.5 Mg Tablet) 2.5 mg PO DAILY [facility] Last Admin: 10/19/23 09:57 Dose: 2.5 mg Omeprazole (Omeprazole 20 Mg Capsule.Dr) 20 mg PO DAILY@0630 [facility] Last Admin: 10/19/23 09:55 Dose: 20 mg Ondansetron HCl (Ondansetron Odt 4 Mg Tab.Rapdis) 4 mg TRANSLINGU Q8H PRN PRN Reason: Nausea and Vomiting Last Admin: 10/14/23 09:40 Dose: 4 mg Polyethylene Glycol (Polyethylene Glycol 3350 17 Gm Powd.Pack) 17 gm PO DAILY [facility] Last Admin: 10/19/23 09:58 Dose: 17 gm Propranolol HCl (Propranolol Hcl 10 Mg Tablet) 10 mg PO TID [facility]; Protocol Last Admin: 10/19/23 09:56 Dose: 10 mg Senna/Docusate Sodium (Sennosides/Docusate Sodium Tablet) 2 tab PO BID [facility] Last Admin: 10/19/23 09:57 Dose: 2 tab Tamsulosin HCl (Tamsulosin Hcl 0.4 Mg Capsule) 0.4 mg PO DAILY [facility] Last Admin: 10/19/23 09:56 Dose: 0.4 mg Thiamine HCl (Thiamine Hcl 100 Mg Tablet) 100 mg PO DAILY [facility] Last Admin: 10/19/23 09:57 Dose: 100 mg Vortioxetine (Vortioxetine Hydrobromide 10 Mg Tablet) 10 mg PO DAILY [facility] Last Admin: 10/19/23 09:56 Dose: 10 mg Allergies Allergies Allergy/AdvReac Type Severity Reaction Status Date / Time No Known Allergies Allergy Verified 08/27/23 10:27 Assessment & Plan Assessment & Plan (1) Bipolar II disorder: Status: Inactive Code(s): F31.81 - Bipolar II disorder (2) Delirium: Status: Resolved Code(s): R41.0 - Disorientation, unspecified (3) Depression, major, severe recurrence: Status: Acute Code(s): F33.2 - Major depressive disorder, recurrent severe without psychotic features (4) Hypertension: Status: Chronic Code(s): I10 - Essential (primary) hypertension (5) Odynophagia: Status: Acute Code(s): R13.10 - Dysphagia, unspecified Plan The patient is an elderly female with a past history of mood disorder, anxiety personality disorder NOS who was brought into the hospital for altered mental status after a short course of as provide of for depression. 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 After being medically cleared she was transferring to this facility for psychiatric stabilization. Plan 1. Gather collateral information. 2. Continue Risperdal and antidepressants as started the medicine. 3. Regular blood work and reassessment with results. 4. 15 minute checks. 5. Speech and swallow evaluation for possible change of diet. 09/30/23 add wellbutrin 75 mg non serotonergic trintellix 5 mg remains with some PI but improved encourage phys rehab 10/01/23 Patient shows improved mood and energy ambulating better more active. Concerns regarding her short-term memory remembering names and fears regarding strength in her has which do seem somewhat bilaterally diminished and some numbness tingling seems to be improving cont trintellix wellbutrin 10/02/2023 Patient generally trending upwards generally less depressed but complicated by periods of paranoia and then apprehension depression and despair feels like she can trust staff and somehow they are intentionally playing with her in some way denies self-harm Recent confusional episode lasting a number of weeks question all serotonergic syndrome delirium question related to S ketamine Encourage out of bed ambulation PT consult increase in Risperdal had recently been on Latuda Vraylar and Rexulti without clear benefit would maintain current low-dose Trintellix 5 mg Wellbutrin recently started 75 mg 10/03: Continue current management and treatment plan. 10/04: Continue current management and treatment plan. Medication changes per primary team Dr. Shearer that knows the patient well. 10/05/2023 Increase Trintellix to 10 mg increase Wellbutrin to 100 mg consider change Risperdal to olanzapine or Seroquel strongly consider ECT patient having difficulty with trust 10/06/23 stop risperadol olanzapine hs and prn 10/07/23 Pt anxious depressed inc trintellix 10 mg inc olanzapine 2.5 am 5 hs wellbutrin 100 mg am 10/08/2023 The patient reports depression, we will continue with Trintellix and we will lower Zyprexa up to 2.5 p.o. q.h.s. and keep p.r.n. 2.5 Zyprexa as needed for psychosis. 10/09 keep same treatment 10/10 restart propanolol 10mg po TID for essential tremors. 10/11 continue tx. 10/12/23 hopeless helpless pos pi inc olanzapine suspicious anxious ? ect 10/13/2023 Patient hopeless helpless despondent severely depressed has not responded to multiple antidepressant trials and augmentation strategies. She appears delusional the depressed hopeless helpless with thoughts that she would be better off denies current plan or intent reviewed risks benefits alternatives with patient son and patient is asking for ECT no medical contraindications. She did has some significant amnesia will maintain right unilateral no more than 2 times a week try and maintain at 0.25 pulse width there seemed to be few alternatives at this point EKG unremarkable 10/14/2023 Patient seen with her see ECT note 10/15/2023 Encourage increase head of bed continue physical therapy recent head CT was unremarkable neuro consult question neuropathy question left footdrop will get hospitalist consult continue Trintellix Wellbutrin 10/16/2023 Increase Wellbutrin to 150 mg daily monitor for hypertension agitation worsening constipation continue Trental X ECT scheduled for 3 days Needs much support and courage mint 10/17/23 Continue regime and plan of care. 10/18/23 Continue regime and plan of care. 10/19 continue same treatment Reason for continued inpatient stay Substantial Risk for: inability to function, rapid decompensation and med/psych decompensation Time Spent With Patient Time: Total time managing care of this patient today __20__ minutes.
[2023-10-19] MEDS: Ascorbic Acid 500 MG TABLET 2000 MG PO (23:01)
[2023-10-20] MEDS: Omeprazole 20 MG CAPSULE.DR PO (06:57)
[2023-10-20 07:55] VITALS: BP 129/67; PULSE 68; RESP 16; TEMP 36.9; O2SAT 97
[2023-10-20] MEDS: lisinopriL 5 MG TABLET 15 MG PO (08:43)
[2023-10-20] MEDS: Thiamine HCL 100 MG TABLET PO (08:44)
[2023-10-20] MEDS: Propranolol HCL 10 MG TABLET PO ×3 (08:44→20:15)
[2023-10-20] MEDS: Vortioxetine Hydrobromide 10 MG TABLET PO (08:44)
[2023-10-20] MEDS: Tamsulosin HCL 0.4 MG CAPSULE PO (08:44)
[2023-10-20] MEDS: buPROPion HCl XL 150 MG TAB.ER.24H PO (08:44)
[2023-10-20] MEDS: Multivitamin TABLET 1 TAB PO (08:45)
[2023-10-20] MEDS: amLODIPine Besylate 5 MG TABLET PO (08:45)
[2023-10-20] MEDS: OLANZapine 2.5 MG TABLET PO ×2 (08:45→20:15)
[2023-10-20] MEDS: polyethylene glycoL 3350 17 GM POWD.PACK PO (08:46)
[2023-10-20] MEDS: Fluticasone Propionate Nasal 16 GM SPRAY 1 SPRAY NOSTRIL-B ×2 (08:46→20:23)
[2023-10-20] MEDS: Brimonidine Tartrate 0.2% Oph 5 ML BOTTLE 1 DROP EYE-BOTH ×2 (08:46→20:23)
--- NOTE | 2023-10-20 13:32 | P.PNPSI_ITS ---
Subjective Subjective Date of Service: 10/20/23 Reason For Visit: Severe depression Subjective Notes: Conditional Voluntary Interim History: The nursing staff reported the patient remains flat withdrawn, she slept 8 hours. She had been visible in the unit and she had 75% for lunch and 100% of her dinner. On interview the patient reports that she is feeling down and depressed, still no improvement with ECT but clinically, she looks better, more aware of her surroundings. No side effects with the last session, nausea improved with escopolamine. Mental Status Exam Mental Status Exam Patient Appearance: Appropriate Patient Orientation: Person and Situation Level of Consciousness: Awake Patient Behavior: Guarded and Passive Mood Description: Withdrawn Affect Description: Constricted Patient Cognition Impaired: Yes Ability to Follow Directions: Fair Speech Pattern: Clear Hallucinations: None Delusions: Not Present Thought Process: Distracted and Evasive Thought Content: positive for [place] and positive for Circumstantial Judgement: Fair Diagnostics Vital Signs (24Hr): Vital Signs - 24 hr 10/19/23 14:26 10/19/23 22:58 10/20/23 07:55 Temperature 97.2 F 98.4 F Pulse Rate 79 83 68 Respiratory Rate 16 16 Blood Pressure 116/61 143/70 H 129/67 Pulse Oximetry 95 97 Oxygen Delivery Method Room Air Room Air BMI result Body Mass Index 19.3 Labs 10/13/23 13:22 10/13/23 13:22 Imaging Radiology Impressions: ITS Impressions Head CT 10/08/23 16:26 IMPRESSION: No acute intracranial process seen. Medications Medications Current Medications Acetaminophen (Acetaminophen 325 Mg Tablet) 650 mg PO Q4H PRN PRN Reason: Pain, Severe (Pain Scale 7-10) Last Admin: 10/15/23 10:29 Dose: 650 mg Al Hydroxide/Mg Hydroxide (Magnesium Hydrox/Alum Hydrox 30 Ml Oral.Susp) 30 ml PO Q6H PRN PRN Reason: Heartburn/Nausea Amlodipine Besylate (Amlodipine Besylate 5 Mg Tablet) 5 mg PO DAILY [facility]; Protocol Last Admin: 10/20/23 08:45 Dose: 5 mg Ascorbic Acid (Ascorbic Acid 500 Mg Tablet) 2,000 mg PO BEDTIME [facility] Last Admin: 10/19/23 23:01 Dose: 2,000 mg Bisacodyl (Bisacodyl 5 Mg Tablet.Dr) 10 mg PO DAILY PRN PRN Reason: Constipation Brimonidine Tartrate (Brimonidine Tartrate 0.2% Oph 5 Ml Bottle) 1 drop EYE- BOTH BID [facility] Last Admin: 10/20/23 08:46 Dose: 1 drop Bupropion HCl (Bupropion Hcl Xl 150 Mg Tab.Er.24h) 150 mg PO DAILY [facility] Last Admin: 10/20/23 08:44 Dose: 150 mg Fluticasone Propionate (Fluticasone Propionate Nasal 16 Gm [place]) 1 spray NOSTRIL-B BID [facility] Last Admin: 10/20/23 08:46 Dose: 1 spray Hydroxyzine HCl (Hydroxyzine Hcl 25 Mg Tablet) 25 mg PO Q6H PRN PRN Reason: Anxiety Last Admin: 10/15/23 10:29 Dose: 25 mg Lisinopril (Lisinopril 5 Mg Tablet) 15 mg PO DAILY [facility]; Protocol Last Admin: 10/20/23 08:43 Dose: 15 mg Magnesium Hydroxide (Milk Of Magnesia 30 Ml Oral.Susp) 30 ml PO DAILY PRN PRN Reason: Constipation Melatonin (Melatonin 3 Mg Tablet) 6 mg PO BEDTIME PRN PRN Reason: Insomnia Last Admin: 10/15/23 20:44 Dose: 6 mg Multivitamins/Vitamin C (Multivitamin Tablet) 1 tab PO DAILY [facility] Last Admin: 10/20/23 08:45 Dose: 1 tab Olanzapine (Olanzapine 2.5 Mg Tablet) 2.5 mg PO BID PRN PRN Reason: anxiety/restlessness Last Admin: 10/12/23 17:19 Dose: 2.5 mg Olanzapine (Olanzapine 2.5 Mg Tablet) 2.5 mg PO BEDTIME [facility] Last Admin: 10/19/23 23:01 Dose: 2.5 mg Olanzapine (Olanzapine 2.5 Mg Tablet) 2.5 mg PO DAILY [facility] Last Admin: 10/20/23 08:45 Dose: 2.5 mg Omeprazole (Omeprazole 20 Mg Capsule.Dr) 20 mg PO DAILY@0630 [facility] Last Admin: 10/20/23 06:57 Dose: 20 mg Ondansetron HCl (Ondansetron Odt 4 Mg Tab.Rapdis) 4 mg TRANSLINGU Q8H PRN PRN Reason: Nausea and Vomiting Last Admin: 10/14/23 09:40 Dose: 4 mg Polyethylene Glycol (Polyethylene Glycol 3350 17 Gm Powd.Pack) 17 gm PO DAILY [facility] Last Admin: 10/20/23 08:46 Dose: 17 gm Propranolol HCl (Propranolol Hcl 10 Mg Tablet) 10 mg PO TID [facility]; Protocol Last Admin: 10/20/23 08:44 Dose: 10 mg Senna/Docusate Sodium (Sennosides/Docusate Sodium Tablet) 2 tab PO BID [facility] Last Admin: 10/20/23 08:46 Dose: Not Given Tamsulosin HCl (Tamsulosin Hcl 0.4 Mg Capsule) 0.4 mg PO DAILY [facility] Last Admin: 10/20/23 08:44 Dose: 0.4 mg Thiamine HCl (Thiamine Hcl 100 Mg Tablet) 100 mg PO DAILY [facility] Last Admin: 10/20/23 08:44 Dose: 100 mg Vortioxetine (Vortioxetine Hydrobromide 10 Mg Tablet) 10 mg PO DAILY [facility] Last Admin: 10/20/23 08:44 Dose: 10 mg Allergies Allergies Allergy/AdvReac Type Severity Reaction Status Date / Time No Known Allergies Allergy Verified 08/27/23 10:27 Assessment & Plan Assessment & Plan (1) Bipolar II disorder: Status: Inactive Code(s): F31.81 - Bipolar II disorder (2) Delirium: Status: Resolved Code(s): R41.0 - Disorientation, unspecified (3) Depression, major, severe recurrence: Status: Acute Code(s): F33.2 - Major depressive disorder, recurrent severe without psychotic features (4) Hypertension: Status: Chronic Code(s): I10 - Essential (primary) hypertension (5) Odynophagia: Status: Acute Code(s): R13.10 - Dysphagia, unspecified Plan The patient is an elderly female with a past history of mood disorder, anxiety personality disorder NOS who was brought into the hospital for altered mental status after a short course of as provide of for depression. 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 After being medically cleared she was transferring to this facility for psychiatric stabilization. Plan 1. Gather collateral information. 2. Continue Risperdal and antidepressants as started the medicine. 3. Regular blood work and reassessment with results. 4. 15 minute checks. 5. Speech and swallow evaluation for possible change of diet. 09/30/23 add wellbutrin 75 mg non serotonergic trintellix 5 mg remains with some PI but improved encourage phys rehab 10/01/23 Patient shows improved mood and energy ambulating better more active. Concerns regarding her short-term memory remembering names and fears regarding strength in her has which do seem somewhat bilaterally diminished and some numbness tingling seems to be improving cont trintellix wellbutrin 10/02/2023 Patient generally trending upwards generally less depressed but complicated by periods of paranoia and then apprehension depression and despair feels like she can trust staff and somehow they are intentionally playing with her in some way denies self-harm Recent confusional episode lasting a number of weeks question all serotonergic syndrome delirium question related to S ketamine Encourage out of bed ambulation PT consult increase in Risperdal had recently been on Latuda Vraylar and Rexulti without clear benefit would maintain current low-dose Trintellix 5 mg Wellbutrin recently started 75 mg 10/03: Continue current management and treatment plan. 10/04: Continue current management and treatment plan. Medication changes per primary team Dr. Shearer that knows the patient well. 10/05/2023 Increase Trintellix to 10 mg increase Wellbutrin to 100 mg consider change Risperdal to olanzapine or Seroquel strongly consider ECT patient having difficulty with trust 10/06/23 stop risperadol olanzapine hs and prn 10/07/23 Pt anxious depressed inc trintellix 10 mg inc olanzapine 2.5 am 5 hs wellbutrin 100 mg am 10/08/2023 The patient reports depression, we will continue with Trintellix and we will lower Zyprexa up to 2.5 p.o. q.h.s. and keep p.r.n. 2.5 Zyprexa as needed for psychosis. 10/09 keep same treatment 10/10 restart propanolol 10mg po TID for essential tremors. 10/11 continue tx. 10/12/23 hopeless helpless pos pi inc olanzapine suspicious anxious ? ect 10/13/2023 Patient hopeless helpless despondent severely depressed has not responded to multiple antidepressant trials and augmentation strategies. She appears delusional the depressed hopeless helpless with thoughts that she would be better off denies current plan or intent reviewed risks benefits alternatives with patient son and patient is asking for ECT no medical contraindications. She did has some significant amnesia will maintain right unilateral no more than 2 times a week try and maintain at 0.25 pulse width there seemed to be few alternatives at this point EKG unremarkable 10/14/2023 Patient seen with her see ECT note 10/15/2023 Encourage increase head of bed continue physical therapy recent head CT was unremarkable neuro consult question neuropathy question left footdrop will get hospitalist consult continue Trintellix Wellbutrin 10/16/2023 Increase Wellbutrin to 150 mg daily monitor for hypertension agitation worsening constipation continue Trental X ECT scheduled for 3 days Needs much support and courage mint 10/17/23 Continue regime and plan of care. 10/18/23 Continue regime and plan of care. 10/19 continue same treatment 10/20 continue same treatment still dysphoric Reason for continued inpatient stay Substantial Risk for: inability to function, rapid decompensation and med/psych decompensation Time Spent With Patient Time: Total time managing care of this patient today _20___ minutes.
[2023-10-20 14:10] VITALS: BP 104/79; PULSE 80
[2023-10-20] MEDS: Ascorbic Acid 500 MG TABLET 2000 MG PO (20:14)
[2023-10-20] MEDS: Sennosides/Docusate Sodium TABLET 2 TAB PO (20:15)
[2023-10-20] MEDS: Melatonin 3 MG TABLET 6 MG PO (20:20)
[2023-10-20 20:31] VITALS: BP 146/68; PULSE 68; RESP 18; TEMP 36.6; O2SAT 100
[2023-10-21] MEDS: Omeprazole 20 MG CAPSULE.DR PO (06:23)
[2023-10-21 07:40] VITALS: BP 135/61; PULSE 76; RESP 18; TEMP 36.9; O2SAT 96
[2023-10-21] MEDS: lisinopriL 5 MG TABLET 15 MG PO (08:38)
[2023-10-21] MEDS: Brimonidine Tartrate 0.2% Oph 5 ML BOTTLE 1 DROP EYE-BOTH ×2 (08:38→21:02)
[2023-10-21] MEDS: buPROPion HCl XL 150 MG TAB.ER.24H PO (08:38)
[2023-10-21] MEDS: Fluticasone Propionate Nasal 16 GM SPRAY 1 SPRAY NOSTRIL-B ×2 (08:38→21:02)
[2023-10-21] MEDS: Vortioxetine Hydrobromide 10 MG TABLET PO (08:38)
[2023-10-21] MEDS: Propranolol HCL 10 MG TABLET PO ×3 (08:39→20:54)
[2023-10-21] MEDS: amLODIPine Besylate 5 MG TABLET PO (08:39)
[2023-10-21] MEDS: Tamsulosin HCL 0.4 MG CAPSULE PO (08:39)
[2023-10-21] MEDS: Thiamine HCL 100 MG TABLET PO (08:39)
[2023-10-21] MEDS: Multivitamin TABLET 1 TAB PO (08:39)
[2023-10-21] MEDS: OLANZapine 2.5 MG TABLET PO ×2 (08:39→20:54)
[2023-10-21] MEDS: polyethylene glycoL 3350 17 GM POWD.PACK PO (08:39)
--- NOTE | 2023-10-21 11:53 | HO.PSYCHPN ---
Subjective Subjective Date of Service: 10/21/23 Reason For Visit: Severe depression Subjective Notes: Conditional Voluntary Interim History: The nursing staff reported the patient reported her depression 10 and her anxiety 8/10. She has been medication compliant and she has attend to groups. The staff has noticed that his affect is brighter than before. The occupational therapist reported that on groups she has better eye contact she is more responsive even though that she looks depressed. On interview the patient reports that she still dysphoric I explained her that she is improving slightly and I encouraged to continue to have ECT. We are discussing the case with Dr. Shearer and most likely we will have to change the ECT to 3 times per week. Mental Status Exam Mental Status Exam Patient Appearance: Well Grooomed and Appropriate Patient Orientation: Person, Place and Situation Level of Consciousness: Awake and Appropriate Patient Behavior: Guarded and Passive Mood Description: Calm and Depressed Affect Description: Constricted Patient Cognition Impaired: No Ability to Follow Directions: Good Speech Pattern: Clear Hallucinations: None Delusions: Ideas of [place] Thought Process: Distracted and Linear Thought Content: positive for [place] and positive for Circumstantial Judgement: Fair Diagnostics Vital Signs (24Hr): Vital Signs - 24 hr 10/20/23 14:10 10/20/23 20:31 10/21/23 07:40 Temperature 97.8 F 98.5 F Pulse Rate 80 68 76 Respiratory Rate 18 18 Blood Pressure 104/79 146/68 H 135/61 Pulse Oximetry 100 96 Oxygen Delivery Method Room Air Room Air BMI result Body Mass Index 19.3 Labs 10/13/23 13:22 10/13/23 13:22 Imaging Radiology Impressions: ITS Impressions Head CT 10/08/23 16:26 IMPRESSION: No acute intracranial process seen. Medications Medications Current Medications Acetaminophen (Acetaminophen 325 Mg Tablet) 650 mg PO Q4H PRN PRN Reason: Pain, Severe (Pain Scale 7-10) Last Admin: 10/15/23 10:29 Dose: 650 mg Al Hydroxide/Mg Hydroxide (Magnesium Hydrox/Alum Hydrox 30 Ml Oral.Susp) 30 ml PO Q6H PRN PRN Reason: Heartburn/Nausea Amlodipine Besylate (Amlodipine Besylate 5 Mg Tablet) 5 mg PO DAILY [facility]; Protocol Last Admin: 10/21/23 08:39 Dose: 5 mg Ascorbic Acid (Ascorbic Acid 500 Mg Tablet) 2,000 mg PO BEDTIME [facility] Last Admin: 10/20/23 20:14 Dose: 2,000 mg Bisacodyl (Bisacodyl 5 Mg Tablet.Dr) 10 mg PO DAILY PRN PRN Reason: Constipation Brimonidine Tartrate (Brimonidine Tartrate 0.2% Oph 5 Ml Bottle) 1 drop EYE-BOTH BID [facility] Last Admin: 10/21/23 08:38 Dose: 1 drop Bupropion HCl (Bupropion Hcl Xl 150 Mg Tab.Er.24h) 150 mg PO DAILY [facility] Last Admin: 10/21/23 08:38 Dose: 150 mg Fluticasone Propionate (Fluticasone Propionate Nasal 16 Gm [place]) 1 spray NOSTRIL-B BID [facility] Last Admin: 10/21/23 08:38 Dose: 1 spray Hydroxyzine HCl (Hydroxyzine Hcl 25 Mg Tablet) 25 mg PO Q6H PRN PRN Reason: Anxiety Last Admin: 10/15/23 10:29 Dose: 25 mg Lisinopril (Lisinopril 5 Mg Tablet) 15 mg PO DAILY [facility]; Protocol Last Admin: 10/21/23 08:38 Dose: 15 mg Magnesium Hydroxide (Milk Of Magnesia 30 Ml Oral.Susp) 30 ml PO DAILY PRN PRN Reason: Constipation Melatonin (Melatonin 3 Mg Tablet) 6 mg PO BEDTIME PRN PRN Reason: Insomnia Last Admin: 10/20/23 20:20 Dose: 6 mg Multivitamins/Vitamin C (Multivitamin Tablet) 1 tab PO DAILY [facility] Last Admin: 10/21/23 08:39 Dose: 1 tab Olanzapine (Olanzapine 2.5 Mg Tablet) 2.5 mg PO BID PRN PRN Reason: anxiety/restlessness Last Admin: 10/12/23 17:19 Dose: 2.5 mg Olanzapine (Olanzapine 2.5 Mg Tablet) 2.5 mg PO BEDTIME [facility] Last Admin: 10/20/23 20:15 Dose: 2.5 mg Olanzapine (Olanzapine 2.5 Mg Tablet) 2.5 mg PO DAILY [facility] Last Admin: 10/21/23 08:39 Dose: 2.5 mg Omeprazole (Omeprazole 20 Mg Capsule.Dr) 20 mg PO DAILY@0630 [facility] Last Admin: 10/21/23 06:23 Dose: 20 mg Ondansetron HCl (Ondansetron Odt 4 Mg Tab.Rapdis) 4 mg TRANSLINGU Q8H PRN PRN Reason: Nausea and Vomiting Last Admin: 10/14/23 09:40 Dose: 4 mg Polyethylene Glycol (Polyethylene Glycol 3350 17 Gm Powd.Pack) 17 gm PO DAILY [facility] Last Admin: 10/21/23 08:39 Dose: 17 gm Propranolol HCl (Propranolol Hcl 10 Mg Tablet) 10 mg PO TID [facility]; Protocol Last Admin: 10/21/23 08:39 Dose: 10 mg Senna/Docusate Sodium (Sennosides/Docusate Sodium Tablet) 2 tab PO BID [facility] Last Admin: 10/21/23 08:40 Dose: Not Given Tamsulosin HCl (Tamsulosin Hcl 0.4 Mg Capsule) 0.4 mg PO DAILY [facility] Last Admin: 10/21/23 08:39 Dose: 0.4 mg Thiamine HCl (Thiamine Hcl 100 Mg Tablet) 100 mg PO DAILY [facility] Last Admin: 10/21/23 08:39 Dose: 100 mg Vortioxetine (Vortioxetine Hydrobromide 10 Mg Tablet) 10 mg PO DAILY [facility] Last Admin: 10/21/23 08:38 Dose: 10 mg Allergies Allergies Allergy/AdvReac Type Severity Reaction Status Date / Time No Known Allergies Allergy Verified 08/27/23 10:27 Assessment & Plan Assessment & Plan (1) Bipolar II disorder: Status: Inactive Code(s): F31.81 - Bipolar II disorder (2) Delirium: Status: Resolved Code(s): R41.0 - Disorientation, unspecified (3) Depression, major, severe recurrence: Status: Acute Code(s): F33.2 - Major depressive disorder, recurrent severe without psychotic features (4) Hypertension: Status: Chronic Code(s): I10 - Essential (primary) hypertension (5) Odynophagia: Status: Acute Code(s): R13.10 - Dysphagia, unspecified Plan The patient is an elderly female with a past history of mood disorder, anxiety personality disorder NOS who was brought into the hospital for altered mental status after a short course of as provide of for depression. 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 After being medically cleared she was transferring to this facility for psychiatric stabilization. Plan 1. Gather collateral information. 2. Continue Risperdal and antidepressants as started the medicine. 3. Regular blood work and reassessment with results. 4. 15 minute checks. 5. Speech and swallow evaluation for possible change of diet. 09/30/23 add wellbutrin 75 mg non serotonergic trintellix 5 mg remains with some PI but improved encourage phys rehab 10/01/23 Patient shows improved mood and energy ambulating better more active. Concerns regarding her short-term memory remembering names and fears regarding strength in her has which do seem somewhat bilaterally diminished and some numbness tingling seems to be improving cont trintellix wellbutrin 10/02/2023 Patient generally trending upwards generally less depressed but complicated by periods of paranoia and then apprehension depression and despair feels like she can trust staff and somehow they are intentionally playing with her in some way denies self-harm Recent confusional episode lasting a number of weeks question all serotonergic syndrome delirium question related to S ketamine Encourage out of bed ambulation PT consult increase in Risperdal had recently been on Latuda Vraylar and Rexulti without clear benefit would maintain current low-dose Trintellix 5 mg Wellbutrin recently started 75 mg 10/03: Continue current management and treatment plan. 10/04: Continue current management and treatment plan. Medication changes per primary team Dr. Shearer that knows the patient well. 10/05/2023 Increase Trintellix to 10 mg increase Wellbutrin to 100 mg consider change Risperdal to olanzapine or Seroquel strongly consider ECT patient having difficulty with trust 10/06/23 stop risperadol olanzapine hs and prn 10/07/23 Pt anxious depressed inc trintellix 10 mg inc olanzapine 2.5 am 5 hs wellbutrin 100 mg am 10/08/2023 The patient reports depression, we will continue with Trintellix and we will lower Zyprexa up to 2.5 p.o. q.h.s. and keep p.r.n. 2.5 Zyprexa as needed for psychosis. 10/09 keep same treatment 10/10 restart propanolol 10mg po TID for essential tremors. 10/11 continue tx. 10/12/23 hopeless helpless pos pi inc olanzapine suspicious anxious ? ect 10/13/2023 Patient hopeless helpless despondent severely depressed has not responded to multiple antidepressant trials and augmentation strategies. She appears delusional the depressed hopeless helpless with thoughts that she would be better off denies current plan or intent reviewed risks benefits alternatives with patient son and patient is asking for ECT no medical contraindications. She did has some significant amnesia will maintain right unilateral no more than 2 times a week try and maintain at 0.25 pulse width there seemed to be few alternatives at this point EKG unremarkable 10/14/2023 Patient seen with her see ECT note 10/15/2023 Encourage increase head of bed continue physical therapy recent head CT was unremarkable neuro consult question neuropathy question left footdrop will get hospitalist consult continue Trintellix Wellbutrin 10/16/2023 Increase Wellbutrin to 150 mg daily monitor for hypertension agitation worsening constipation continue Trental X ECT scheduled for 3 days Needs much support and courage mint 10/17/23 Continue regime and plan of care. 10/18/23 Continue regime and plan of care. 10/19 continue same treatment 10/20 continue same treatment still dysphoric 10/21 continue same treatment Reason for continued inpatient stay Substantial Risk for: inability to function, rapid decompensation and med/psych decompensation Time Spent With Patient Time: Total time managing care of this patient today __20__ minutes.
[2023-10-21 14:27] VITALS: BP 102/68; PULSE 84
[2023-10-21 18:00] VITALS: BP 130/56; PULSE 61; RESP 16; TEMP 36.5; O2SAT 96
[2023-10-21] MEDS: Ascorbic Acid 500 MG TABLET 2000 MG PO (20:54)
[2023-10-21] MEDS: Sennosides/Docusate Sodium TABLET 2 TAB PO (20:55)
[2023-10-21] MEDS: Melatonin 3 MG TABLET 6 MG PO (20:55)
[2023-10-22] MEDS: Omeprazole 20 MG CAPSULE.DR PO (06:08)
[2023-10-22 07:00] VITALS: BMI 20.3
[2023-10-22 08:06] VITALS: BP 131/66; PULSE 84; RESP 16; TEMP 36.2; O2SAT 95
[2023-10-22] MEDS: Vortioxetine Hydrobromide 10 MG TABLET PO (09:24)
[2023-10-22] MEDS: amLODIPine Besylate 5 MG TABLET PO (09:24)
[2023-10-22] MEDS: lisinopriL 5 MG TABLET 15 MG PO (09:24)
[2023-10-22] MEDS: buPROPion HCl XL 150 MG TAB.ER.24H PO (09:24)
[2023-10-22] MEDS: Multivitamin TABLET 1 TAB PO (09:24)
[2023-10-22] MEDS: Thiamine HCL 100 MG TABLET PO (09:24)
[2023-10-22] MEDS: Tamsulosin HCL 0.4 MG CAPSULE PO (09:25)
[2023-10-22] MEDS: Brimonidine Tartrate 0.2% Oph 5 ML BOTTLE 1 DROP EYE-BOTH ×2 (09:25→21:10)
[2023-10-22] MEDS: Propranolol HCL 10 MG TABLET PO ×2 (09:25→21:16)
[2023-10-22] MEDS: OLANZapine 2.5 MG TABLET PO ×2 (09:25→21:16)
[2023-10-22] MEDS: LORazepam 0.5 MG TABLET PO (12:06)
--- NOTE | 2023-10-22 13:42 | HO.PSYCHPN ---
Subjective Subjective Date of Service: 10/22/23 Reason For Visit: Severe depression Subjective Notes: Conditional Voluntary Interim History: The nursing staff reported that yesterday the patient was with a brighter affect, she attended to groups and she was pleasant. Some anxiety. Today she reported that she was not feeling very well very anxious. We will have ECT tomorrow. No evidence of psychosis at this moment Mental Status Exam Mental Status Exam Patient Appearance: Appropriate Patient Orientation: Person and Situation Level of Consciousness: Awake and Appropriate Patient Behavior: Guarded and Passive Mood Description: Withdrawn Affect Description: Constricted Patient Cognition Impaired: Yes Ability to Follow Directions: Good Speech Pattern: Clear Hallucinations: None Delusions: Ideas of Reference Thought Process: Linear Thought Content: positive for [place] and positive for [place] of Content Judgement: Fair Diagnostics Vital Signs (24Hr): Vital Signs - 24 hr 10/21/23 14:27 10/21/23 18:00 10/22/23 08:06 Temperature 97.7 F 97.1 F Pulse Rate 84 61 84 Respiratory Rate 16 16 Blood Pressure 102/68 130/56 L 131/66 Pulse Oximetry 96 95 Oxygen Delivery Method Room Air Room Air BMI result Body Mass Index 20.3 Labs 10/13/23 13:22 10/13/23 13:22 Imaging Radiology Impressions: ITS Impressions Head CT 10/08/23 16:26 IMPRESSION: No acute intracranial process seen. Medications Medications Current Medications Acetaminophen (Acetaminophen 325 Mg Tablet) 650 mg PO Q4H PRN PRN Reason: Pain, Severe (Pain Scale 7-10) Last Admin: 10/15/23 10:29 Dose: 650 mg Al Hydroxide/Mg Hydroxide (Magnesium Hydrox/Alum Hydrox 30 Ml Oral.Susp) 30 ml PO Q6H PRN PRN Reason: Heartburn/Nausea Amlodipine Besylate (Amlodipine Besylate 5 Mg Tablet) 5 mg PO DAILY [facility]; Protocol Last Admin: 10/22/23 09:24 Dose: 5 mg Ascorbic Acid (Ascorbic Acid 500 Mg Tablet) 2,000 mg PO BEDTIME [facility] Last Admin: 10/21/23 20:54 Dose: 2,000 mg Bisacodyl (Bisacodyl 5 Mg Tablet.Dr) 10 mg PO DAILY PRN PRN Reason: Constipation Brimonidine Tartrate (Brimonidine Tartrate 0.2% Oph 5 Ml Bottle) 1 drop EYE-BOTH BID [facility] Last Admin: 10/22/23 09:25 Dose: 1 drop Bupropion HCl (Bupropion Hcl Xl 150 Mg Tab.Er.24h) 150 mg PO DAILY [facility] Last Admin: 10/22/23 09:24 Dose: 150 mg Fluticasone Propionate (Fluticasone Propionate Nasal 16 Gm [place]) 1 spray NOSTRIL-B BID [facility] Last Admin: 10/22/23 09:34 Dose: Not Given Hydroxyzine HCl (Hydroxyzine Hcl 25 Mg Tablet) 25 mg PO Q6H PRN PRN Reason: Anxiety Last Admin: 10/15/23 10:29 Dose: 25 mg Lisinopril (Lisinopril 5 Mg Tablet) 15 mg PO DAILY [facility]; Protocol Last Admin: 10/22/23 09:24 Dose: 15 mg Lorazepam (Lorazepam 0.5 Mg Tablet) 0.5 mg PO Q8H PRN PRN Reason: Anxiety Last Admin: 10/22/23 12:06 Dose: 0.5 mg Magnesium Hydroxide (Milk Of Magnesia 30 Ml Oral.Susp) 30 ml PO DAILY PRN PRN Reason: Constipation Melatonin (Melatonin 3 Mg Tablet) 6 mg PO BEDTIME PRN PRN Reason: Insomnia Last Admin: 10/21/23 20:55 Dose: 6 mg Multivitamins/Vitamin C (Multivitamin Tablet) 1 tab PO DAILY [facility] Last Admin: 10/22/23 09:24 Dose: 1 tab Olanzapine (Olanzapine 2.5 Mg Tablet) 2.5 mg PO BID PRN PRN Reason: anxiety/restlessness Last Admin: 10/12/23 17:19 Dose: 2.5 mg Olanzapine (Olanzapine 2.5 Mg Tablet) 2.5 mg PO BEDTIME [facility] Last Admin: 10/21/23 20:54 Dose: 2.5 mg Olanzapine (Olanzapine 2.5 Mg Tablet) 2.5 mg PO DAILY [facility] Last Admin: 10/22/23 09:25 Dose: 2.5 mg Omeprazole (Omeprazole 20 Mg Capsule.Dr) 20 mg PO DAILY@0630 [facility] Last Admin: 10/22/23 06:08 Dose: 20 mg Ondansetron HCl (Ondansetron Odt 4 Mg Tab.Rapdis) 4 mg TRANSLINGU Q8H PRN PRN Reason: Nausea and Vomiting Last Admin: 10/14/23 09:40 Dose: 4 mg Polyethylene Glycol (Polyethylene Glycol 3350 17 Gm Powd.Pack) 17 gm PO DAILY [facility] Last Admin: 10/22/23 09:25 Dose: Not Given Propranolol HCl (Propranolol Hcl 10 Mg Tablet) 10 mg PO TID [facility]; Protocol Last Admin: 10/22/23 09:25 Dose: 10 mg Senna/Docusate Sodium (Sennosides/Docusate Sodium Tablet) 2 tab PO BID [facility] Last Admin: 10/22/23 09:25 Dose: Not Given Tamsulosin HCl (Tamsulosin Hcl 0.4 Mg Capsule) 0.4 mg PO DAILY [facility] Last Admin: 10/22/23 09:25 Dose: 0.4 mg Thiamine HCl (Thiamine Hcl 100 Mg Tablet) 100 mg PO DAILY [facility] Last Admin: 10/22/23 09:24 Dose: 100 mg Vortioxetine (Vortioxetine Hydrobromide 10 Mg Tablet) 10 mg PO DAILY [facility] Last Admin: 10/22/23 09:24 Dose: 10 mg Allergies Allergies Allergy/AdvReac Type Severity Reaction Status Date / Time No Known Allergies Allergy Verified 08/27/23 10:27 Assessment & Plan Assessment & Plan (1) Bipolar II disorder: Status: Inactive Code(s): F31.81 - Bipolar II disorder (2) Delirium: Status: Resolved Code(s): R41.0 - Disorientation, unspecified (3) Depression, major, severe recurrence: Status: Acute Code(s): F33.2 - Major depressive disorder, recurrent severe without psychotic features (4) Hypertension: Status: Chronic Code(s): I10 - Essential (primary) hypertension (5) Odynophagia: Status: Acute Code(s): R13.10 - Dysphagia, unspecified Plan The patient is an elderly female with a past history of mood disorder, anxiety personality disorder NOS who was brought into the hospital for altered mental status after a short course of as provide of for depression. 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 After being medically cleared she was transferring to this facility for psychiatric stabilization. Plan 1. Gather collateral information. 2. Continue Risperdal and antidepressants as started the medicine. 3. Regular blood work and reassessment with results. 4. 15 minute checks. 5. Speech and swallow evaluation for possible change of diet. 09/30/23 add wellbutrin 75 mg non serotonergic trintellix 5 mg remains with some PI but improved encourage phys rehab 10/01/23 Patient shows improved mood and energy ambulating better more active. Concerns regarding her short-term memory remembering names and fears regarding strength in her has which do seem somewhat bilaterally diminished and some numbness tingling seems to be improving cont trintellix wellbutrin 10/02/2023 Patient generally trending upwards generally less depressed but complicated by periods of paranoia and then apprehension depression and despair feels like she can trust staff and somehow they are intentionally playing with her in some way denies self-harm Recent confusional episode lasting a number of weeks question all serotonergic syndrome delirium question related to S ketamine Encourage out of bed ambulation PT consult increase in Risperdal had recently been on Latuda Vraylar and Rexulti without clear benefit would maintain current low-dose Trintellix 5 mg Wellbutrin recently started 75 mg 10/03: Continue current management and treatment plan. 10/04: Continue current management and treatment plan. Medication changes per primary team Dr. Sheraer that knows the patient well. 10/05/2023 Increase Trintellix to 10 mg increase Wellbutrin to 100 mg consider change Risperdal to olanzapine or Seroquel strongly consider ECT patient having difficulty with trust 10/06/23 stop risperadol olanzapine hs and prn 10/07/23 Pt anxious depressed inc trintellix 10 mg inc olanzapine 2.5 am 5 hs wellbutrin 100 mg am 10/08/2023 The patient reports depression, we will continue with Trintellix and we will lower Zyprexa up to 2.5 p.o. q.h.s. and keep p.r.n. 2.5 Zyprexa as needed for psychosis. 10/09 keep same treatment 10/10 restart propanolol 10mg po TID for essential tremors. 10/11 continue tx. 10/12/23 hopeless helpless pos pi inc olanzapine suspicious anxious ? ect 10/13/2023 Patient hopeless helpless despondent severely depressed has not responded to multiple antidepressant trials and augmentation strategies. She appears delusional the depressed hopeless helpless with thoughts that she would be better off denies current plan or intent reviewed risks benefits alternatives with patient son and patient is asking for ECT no medical contraindications. She did has some significant amnesia will maintain right unilateral no more than 2 times a week try and maintain at 0.25 pulse width there seemed to be few alternatives at this point EKG unremarkable 10/14/2023 Patient seen with her see ECT note 10/15/2023 Encourage increase head of bed continue physical therapy recent head CT was unremarkable neuro consult question neuropathy question left footdrop will get hospitalist consult continue Trintellix Wellbutrin 10/16/2023 Increase Wellbutrin to 150 mg daily monitor for hypertension agitation worsening constipation continue Trental X ECT scheduled for 3 days Needs much support and courage mint 10/17/23 Continue regime and plan of care. 10/18/23 Continue regime and plan of care. 10/19 continue same treatment 10/20 continue same treatment still dysphoric 10/21 continue same treatment 10/22 continue same treatment ECT tomorrow Reason for continued inpatient stay Substantial Risk for: inability to function, rapid decompensation and med/psych decompensation Time Spent With Patient Time: Total time managing care of this patient today _20___ minutes.
[2023-10-22 14:12] VITALS: BP 101/54; PULSE 80
[2023-10-22 18:00] VITALS: BP 116/67; PULSE 76; RESP 16; TEMP 36.3; O2SAT 97
[2023-10-22] MEDS: Fluticasone Propionate Nasal 16 GM SPRAY 1 SPRAY NOSTRIL-B (21:10)
[2023-10-22] MEDS: Ascorbic Acid 500 MG TABLET 2000 MG PO (21:11)
[2023-10-22] MEDS: Melatonin 3 MG TABLET 6 MG PO (21:14)
[2023-10-22] MEDS: hydrOXYzine HCL 25 MG TABLET PO (21:15)
[2023-10-23] VITALS (10 sets, daily range): BP systolic 123–162; BP diastolic 64–82; PULSE 70–81; RESP 16–18; TEMP 36.2–36.9; O2SAT 95–98; BMI 20.2
[2023-10-23] MEDS: lisinopriL 5 MG TABLET 15 MG PO (09:21)
[2023-10-23] MEDS: amLODIPine Besylate 5 MG TABLET PO (09:22)
--- NOTE | 2023-10-23 09:30 | HO.PSYCHPN ---
Subjective Subjective Date of Service: 10/23/23 Reason For Visit: Severe depression Subjective Notes: Conditional Voluntary Interim History: The nursing staff reported the patient slept well last night. Her ECT had been scheduled for noon today and she is on NPO. She is soft-spoken and we are going to do an x-ray on her left foot today in the morning. On interview the patient reports depression but she looks with a brighter affect cooperative and pleasant. We are going to discuss the case with Dr. Shearer and see if we could increase the frequency of ECT to make her better as soon as possible. Mental Status Exam Mental Status Exam Patient Appearance: Well Grooomed and Appropriate Patient Orientation: Person, Place and Situation Level of Consciousness: Awake and Appropriate Patient Behavior: Guarded and Passive Mood Description: Withdrawn and Depressed Affect Description: Constricted Patient Cognition Impaired: Yes Ability to Follow Directions: Good Speech Pattern: Clear Hallucinations: None Delusions: Not Present Thought Process: Distracted and Evasive Thought Content: positive for [place] and positive for Circumstantial Judgement: Fair Diagnostics Vital Signs (24Hr): Vital Signs - 24 hr 10/22/23 14:12 10/22/23 18:00 10/23/23 06:00 Temperature 97.3 F 97.3 F Pulse Rate 80 76 75 Respiratory Rate 16 16 Blood Pressure 101/54 L 116/67 123/69 Pulse Oximetry 97 96 Oxygen Delivery Method Room Air Room Air 10/23/23 08:03 Temperature 97.1 F Pulse Rate 78 Respiratory Rate 18 Blood Pressure 160/76 H Pulse Oximetry 95 Oxygen Delivery Method Room Air BMI result Body Mass Index 20.3 Labs 10/13/23 13:22 10/13/23 13:22 Imaging Radiology Impressions: ITS Impressions Head CT 10/08/23 16:26 IMPRESSION: No acute intracranial process seen. Medications Medications Current Medications Acetaminophen (Acetaminophen 325 Mg Tablet) 650 mg PO Q4H PRN PRN Reason: Pain, Severe (Pain Scale 7-10) Last Admin: 10/15/23 10:29 Dose: 650 mg Al Hydroxide/Mg Hydroxide (Magnesium Hydrox/Alum Hydrox 30 Ml Oral.Susp) 30 ml PO Q6H PRN PRN Reason: Heartburn/Nausea Amlodipine Besylate (Amlodipine Besylate 5 Mg Tablet) 5 mg PO DAILY [facility]; Protocol Last Admin: 10/23/23 09:22 Dose: 5 mg Ascorbic Acid (Ascorbic Acid 500 Mg Tablet) 2,000 mg PO BEDTIME [facility] Last Admin: 10/22/23 21:11 Dose: 2,000 mg Bisacodyl (Bisacodyl 5 Mg Tablet.Dr) 10 mg PO DAILY PRN PRN Reason: Constipation Brimonidine Tartrate (Brimonidine Tartrate 0.2% Oph 5 Ml Bottle) 1 drop EYE-BOTH BID [facility] Last Admin: 10/22/23 21:10 Dose: 1 drop Bupropion HCl (Bupropion Hcl Xl 150 Mg Tab.Er.24h) 150 mg PO DAILY [facility] Last Admin: 10/22/23 09:24 Dose: 150 mg Fluticasone Propionate (Fluticasone Propionate Nasal 16 Gm [place]) 1 spray NOSTRIL-B BID [facility] Last Admin: 10/22/23 21:10 Dose: 1 spray Hydroxyzine HCl (Hydroxyzine Hcl 25 Mg Tablet) 25 mg PO Q6H PRN PRN Reason: Anxiety Last Admin: 10/22/23 21:15 Dose: 25 mg Lisinopril (Lisinopril 5 Mg Tablet) 15 mg PO DAILY [facility]; Protocol Last Admin: 10/23/23 09:21 Dose: 15 mg Lorazepam (Lorazepam 0.5 Mg Tablet) 0.5 mg PO Q8H PRN PRN Reason: Anxiety Last Admin: 10/22/23 12:06 Dose: 0.5 mg Magnesium Hydroxide (Milk Of Magnesia 30 Ml Oral.Susp) 30 ml PO DAILY PRN PRN Reason: Constipation Melatonin (Melatonin 3 Mg Tablet) 6 mg PO BEDTIME PRN PRN Reason: Insomnia Last Admin: 10/22/23 21:14 Dose: 6 mg Multivitamins/Vitamin C (Multivitamin Tablet) 1 tab PO DAILY [facility] Last Admin: 10/22/23 09:24 Dose: 1 tab Olanzapine (Olanzapine 2.5 Mg Tablet) 2.5 mg PO BID PRN PRN Reason: anxiety/restlessness Last Admin: 10/12/23 17:19 Dose: 2.5 mg Olanzapine (Olanzapine 2.5 Mg Tablet) 2.5 mg PO BEDTIME [facility] Last Admin: 10/22/23 21:16 Dose: 2.5 mg Olanzapine (Olanzapine 2.5 Mg Tablet) 2.5 mg PO DAILY [facility] Last Admin: 10/22/23 09:25 Dose: 2.5 mg Omeprazole (Omeprazole 20 Mg Capsule.Dr) 20 mg PO DAILY@0630 [facility] Last Admin: 10/23/23 06:00 Dose: Not Given Ondansetron HCl (Ondansetron Odt 4 Mg Tab.Rapdis) 4 mg TRANSLINGU Q8H PRN PRN Reason: Nausea and Vomiting Last Admin: 10/14/23 09:40 Dose: 4 mg Polyethylene Glycol (Polyethylene Glycol 3350 17 Gm Powd.Pack) 17 gm PO DAILY [facility] Last Admin: 10/22/23 09:25 Dose: Not Given Propranolol HCl (Propranolol Hcl 10 Mg Tablet) 10 mg PO TID [facility]; Protocol Last Admin: 10/22/23 21:16 Dose: 10 mg Senna/Docusate Sodium (Sennosides/Docusate Sodium Tablet) 2 tab PO BID [facility] Last Admin: 10/22/23 21:16 Dose: Not Given Tamsulosin HCl (Tamsulosin Hcl 0.4 Mg Capsule) 0.4 mg PO DAILY [facility] Last Admin: 10/22/23 09:25 Dose: 0.4 mg Thiamine HCl (Thiamine Hcl 100 Mg Tablet) 100 mg PO DAILY [facility] Last Admin: 10/22/23 09:24 Dose: 100 mg Vortioxetine (Vortioxetine Hydrobromide 10 Mg Tablet) 10 mg PO DAILY [facility] Last Admin: 10/22/23 09:24 Dose: 10 mg Allergies Allergies Allergy/AdvReac Type Severity Reaction Status Date / Time No Known Allergies Allergy Verified 08/27/23 10:27 Assessment & Plan Assessment & Plan (1) Bipolar II disorder: Status: Inactive Code(s): F31.81 - Bipolar II disorder (2) Delirium: Status: Resolved Code(s): R41.0 - Disorientation, unspecified (3) Depression, major, severe recurrence: Status: Acute Code(s): F33.2 - Major depressive disorder, recurrent severe without psychotic features (4) Hypertension: Status: Chronic Code(s): I10 - Essential (primary) hypertension (5) Odynophagia: Status: Acute Code(s): R13.10 - Dysphagia, unspecified (6) Major depressive disorder, recurrent severe without psychotic features: Status: Acute Code(s): F33.2 - Major depressive disorder, recurrent severe without psychotic features Plan The patient is an elderly female with a past history of mood disorder, anxiety personality disorder NOS who was brought into the hospital for altered mental status after a short course of as provide of for depression. 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 After being medically cleared she was transferring to this facility for psychiatric stabilization. Plan 1. Gather collateral information. 2. Continue Risperdal and antidepressants as started the medicine. 3. Regular blood work and reassessment with results. 4. 15 minute checks. 5. Speech and swallow evaluation for possible change of diet. 09/30/23 add wellbutrin 75 mg non serotonergic trintellix 5 mg remains with some PI but improved encourage phys rehab 10/01/23 Patient shows improved mood and energy ambulating better more active. Concerns regarding her short-term memory remembering names and fears regarding strength in her has which do seem somewhat bilaterally diminished and some numbness tingling seems to be improving cont trintellix wellbutrin 10/02/2023 Patient generally trending upwards generally less depressed but complicated by periods of paranoia and then apprehension depression and despair feels like she can trust staff and somehow they are intentionally playing with her in some way denies self-harm Recent confusional episode lasting a number of weeks question all serotonergic syndrome delirium question related to S ketamine Encourage out of bed ambulation PT consult increase in Risperdal had recently been on Latuda Vraylar and Rexulti without clear benefit would maintain current low-dose Trintellix 5 mg Wellbutrin recently started 75 mg 10/03: Continue current management and treatment plan. 10/04: Continue current management and treatment plan. Medication changes per primary team Dr. Shearer that knows the patient well. 10/05/2023 Increase Trintellix to 10 mg increase Wellbutrin to 100 mg consider change Risperdal to olanzapine or Seroquel strongly consider ECT patient having difficulty with trust 10/06/23 stop risperadol olanzapine hs and prn 10/07/23 Pt anxious depressed inc trintellix 10 mg inc olanzapine 2.5 am 5 hs wellbutrin 100 mg am 10/08/2023 The patient reports depression, we will continue with Trintellix and we will lower Zyprexa up to 2.5 p.o. q.h.s. and keep p.r.n. 2.5 Zyprexa as needed for psychosis. 10/09 keep same treatment 10/10 restart propanolol 10mg po TID for essential tremors. 10/11 continue tx. 10/12/23 hopeless helpless pos pi inc olanzapine suspicious anxious ? ect 10/13/2023 Patient hopeless helpless despondent severely depressed has not responded to multiple antidepressant trials and augmentation strategies. She appears delusional the depressed hopeless helpless with thoughts that she would be better off denies current plan or intent reviewed risks benefits alternatives with patient son and patient is asking for ECT no medical contraindications. She did has some significant amnesia will maintain right unilateral no more than 2 times a week try and maintain at 0.25 pulse width there seemed to be few alternatives at this point EKG unremarkable 10/14/2023 Patient seen with her see ECT note 10/15/2023 Encourage increase head of bed continue physical therapy recent head CT was unremarkable neuro consult question neuropathy question left footdrop will get hospitalist consult continue Trintellix Wellbutrin 10/16/2023 Increase Wellbutrin to 150 mg daily monitor for hypertension agitation worsening constipation continue Trental X ECT scheduled for 3 days Needs much support and courage mint 10/17/23 Continue regime and plan of care. 10/18/23 Continue regime and plan of care. 10/22/23 Pt seen in f/u cont ect consider inc 3 x wk ck l foot xr 10/23 continue same treatment ECT today. We are going to discuss the possibility of increasing ECT 3 times a week Reason for continued inpatient stay Substantial Risk for: inability to function, rapid decompensation and med/psych decompensation Time Spent With Patient Time: Total time managing care of this patient today __20__ minutes.
[2023-10-23] MEDS: Propranolol HCL 10 MG TABLET PO ×3 (11:34→20:47)
--- NOTE | 2023-10-23 12:23 | HO.ANESPROP2 ---
[facility] Active Problems Active Problems: All Active Problems (Updated 10/16/23 @ 13:45 by Lucia Garcia MD) Footdrop (Acute) Major depressive disorder, recurrent severe without psychotic features (Acute) Personality disorder (Acute) Organic catatonia (Acute) Abnormal EKG (Acute) Odynophagia (Acute) Paranoia (Acute) Dysphagia (Acute) Serotonin syndrome (Acute) Ataxia (Acute) Tremors of nervous system (Acute) Major depression in full remission (Acute) Depression, major, severe recurrence (Acute) Memory deficit (Acute) ADHD (attention deficit hyperactivity disorder) (Acute) ZAC (generalized anxiety disorder) (Acute) Depression (Acute) Pre-op evaluation (Acute) Acute bacterial conjunctivitis of both eyes (Acute) Hypercalcemia (Acute) Hypothyroidism (Acute) Leukocytosis (Acute) Hypertension (Chronic) Past Medical History Medical History Urinary tract infection Depression Hypothyroidism ZAC (generalized anxiety disorder) Hypertension ADHD (attention deficit hyperactivity disorder) Functional capacity: independent ambulation Patient : No Family History Family History Other No pertinent family history Family history of problems with anesthesia: No Surgical History Surgical History H/O thumb surgery H/O cone biopsy of cervix History of Problems with Anesthesia: No Social History Social History Household Members: Spouse Household Members Other:: And two cats. Housing: House Do you presently have visiting nurse or other home services: No Unable to assess alcohol history related to: Unknown Alcohol intake: never Patient Tobacco Use Status: Former Tobacco user Quit Date: 20 years ag Tobacco use type: Cigarette Years Smoked: 20 Smoked in Last 30 Days: No e-Cigarette/Vaping Use: Never Used Patient Interested in Nicotine Replacement: No (n/a) Patient Given Instructions on How to Stop Smoking: No (n/a) Second Hand Smoke Exposure: No Use of substances other than those prescribed or required for medical reasons: Yes Substance Use Type: Former Substance User and Marijuana Last Used Substance Other:: 2 years Currently Displaying Signs/Symptoms of Drug Intoxication Withdrawal: No Any prior treatment program specific to substance use: No Have you been hit, kicked, punched, or otherwise hurt by someone within the past year? If so, by whom?: No Do you feel safe in your current relationship?: Yes Is there a partner from a previous relationship who is making you feel unsafe now?: No Are you made to feel afraid or neglected: No Spiritual Healthcare Practices: no Orthodoxy Healthcare Practices: no Cultural Healthcare Practices: no Are you DNR?: No Advance Directives: No Advance Directives Information Provided: No (declined) Advance Directives on File: No Do you have thoughts of harming others: None Do you have a plan to hurt others: No Plan Recently lost weight without trying: No How much weight loss: Unsure Eating poorly because of decreased appetite: Yes Nutrition screen score: 3 Patient : No : No Poor oral hygiene: No service: No Sexual orientation: Straight/Heterosexual Meds Allergies Allergy/AdvReac Type Severity Reaction Status Date / Time No Known Allergies Allergy Verified 08/27/23 10:27 Active Medications: Current Medications Acetaminophen (Acetaminophen 325 Mg Tablet) 650 mg PO Q4H PRN PRN Reason: Pain, Severe (Pain Scale 7-10) Last Admin: 10/15/23 10:29 Dose: 650 mg Al Hydroxide/Mg Hydroxide (Magnesium Hydrox/Alum Hydrox 30 Ml Oral.Susp) 30 ml PO Q6H PRN PRN Reason: Heartburn/Nausea Amlodipine Besylate (Amlodipine Besylate 5 Mg Tablet) 5 mg PO DAILY [facility]; Protocol Last Admin: 10/23/23 09:22 Dose: 5 mg Ascorbic Acid (Ascorbic Acid 500 Mg Tablet) 2,000 mg PO BEDTIME [facility] Last Admin: 10/22/23 21:11 Dose: 2,000 mg Bisacodyl (Bisacodyl 5 Mg Tablet.Dr) 10 mg PO DAILY PRN PRN Reason: Constipation Brimonidine Tartrate (Brimonidine Tartrate 0.2% Oph 5 Ml Bottle) 1 drop EYE-BOTH BID [facility] Last Admin: 10/22/23 21:10 Dose: 1 drop Bupropion HCl (Bupropion Hcl Xl 150 Mg Tab.Er.24h) 150 mg PO DAILY [facility] Last Admin: 10/22/23 09:24 Dose: 150 mg Fluticasone Propionate (Fluticasone Propionate Nasal 16 Gm [place]) 1 spray NOSTRIL-B BID [facility] Last Admin: 10/22/23 21:10 Dose: 1 spray Hydroxyzine HCl (Hydroxyzine Hcl 25 Mg Tablet) 25 mg PO Q6H PRN PRN Reason: Anxiety Last Admin: 10/22/23 21:15 Dose: 25 mg Lisinopril (Lisinopril 5 Mg Tablet) 15 mg PO DAILY [facility]; Protocol Last Admin: 10/23/23 09:21 Dose: 15 mg Lorazepam (Lorazepam 0.5 Mg Tablet) 0.5 mg PO Q8H PRN PRN Reason: Anxiety Last Admin: 10/22/23 12:06 Dose: 0.5 mg Magnesium Hydroxide (Milk Of Magnesia 30 Ml Oral.Susp) 30 ml PO DAILY PRN PRN Reason: Constipation Melatonin (Melatonin 3 Mg Tablet) 6 mg PO BEDTIME PRN PRN Reason: Insomnia Last Admin: 10/22/23 21:14 Dose: 6 mg Multivitamins/Vitamin C (Multivitamin Tablet) 1 tab PO DAILY [facility] Last Admin: 10/22/23 09:24 Dose: 1 tab Olanzapine (Olanzapine 2.5 Mg Tablet) 2.5 mg PO BID PRN PRN Reason: anxiety/restlessness Last Admin: 10/12/23 17:19 Dose: 2.5 mg Olanzapine (Olanzapine 2.5 Mg Tablet) 2.5 mg PO BEDTIME [facility] Last Admin: 10/22/23 21:16 Dose: 2.5 mg Olanzapine (Olanzapine 2.5 Mg Tablet) 2.5 mg PO DAILY [facility] Last Admin: 10/22/23 09:25 Dose: 2.5 mg Omeprazole (Omeprazole 20 Mg Capsule.Dr) 20 mg PO DAILY@0630 [facility] Last Admin: 10/23/23 06:00 Dose: Not Given Ondansetron HCl (Ondansetron Odt 4 Mg Tab.Rapdis) 4 mg TRANSLINGU Q8H PRN PRN Reason: Nausea and Vomiting Last Admin: 10/14/23 09:40 Dose: 4 mg Polyethylene Glycol (Polyethylene Glycol 3350 17 Gm Powd.Pack) 17 gm PO DAILY [facility] Last Admin: 10/22/23 09:25 Dose: Not Given Propranolol HCl (Propranolol Hcl 10 Mg Tablet) 10 mg PO TID [facility]; Protocol Last Admin: 10/23/23 11:34 Dose: 10 mg Senna/Docusate Sodium (Sennosides/Docusate Sodium Tablet) 2 tab PO BID [facility] Last Admin: 10/22/23 21:16 Dose: Not Given Tamsulosin HCl (Tamsulosin Hcl 0.4 Mg Capsule) 0.4 mg PO DAILY [facility] Last Admin: 10/22/23 09:25 Dose: 0.4 mg Thiamine HCl (Thiamine Hcl 100 Mg Tablet) 100 mg PO DAILY [facility] Last Admin: 10/22/23 09:24 Dose: 100 mg Vortioxetine (Vortioxetine Hydrobromide 10 Mg Tablet) 10 mg PO DAILY [facility] Last Admin: 10/22/23 09:24 Dose: 10 mg Home Medications Medication Instructions Recorded Confirmed Last Taken Type amlodipine 5 mg tablet 10 mg PO DAILY 10/23/22 08/27/23 10/23/22 History fluticasone propionate 50 1 spray intranasal BID 08/27/23 08/27/23 Unknown History mcg/actuation nasal spray,suspension propranolol 20 mg tablet 20 mg PO BID 08/27/23 08/27/23 Unknown History Exam Height,Weight and Vital Signs: Height 5 ft 1 in Weight 48.8 kg Last Vital Signs Temp 97.1 F 10/23/23 12:03 Pulse 78 10/23/23 12:03 Resp 18 10/23/23 12:03 BP 160/76 H 10/23/23 12:03 Pulse Ox 95 10/23/23 12:03 O2 Del Method Room Air 10/23/23 08:03 O2 Flow Rate 2 10/19/23 08:27 Pertinent Lab Results Pertinent Lab Results: Laboratory Tests 09/28/23 09/29/23 10/13/23 14:09 07:53 13:22 WBC 8.0 RBC 3.92 L Hgb 11.4 L Hct 36.0 L MCV 91.8 MCH 29.1 MCHC 31.7 RDW 14.1 Plt Count 290 MPV 9.5 Immature Gran % (Auto) 0.5 H Neut % (Auto) 74.2 H Lymph % (Auto) 14.1 L [place] % (Auto) 8.4 Eos % (Auto) 2.4 Baso % (Auto) 0.4 Lymph # (Auto) 1.1 L [place] # (Auto) 0.7 Eos # (Auto) 0.2 Baso # (Auto) 0.0 Abs Immat Gran (auto) 0.04 H Absolute Neuts (auto) 5.9 Absolute Nucleated RBC 0.000 Nucleated RBC % (auto) 0.0 Sodium 144 139 Potassium 4.0 4.9 D Chloride 105 105 Carbon Dioxide 31 H 30 H Anion Gap 12 9 L BUN 14 16 Creatinine 0.82 0.76 1.03 Estim Creat Clear Calc TNP 48.5 36.6 Estimated GFR > 60 > 60 53 Random Glucose 115 Fasting Glucose 133 H Calcium 10.6 H D 9.6 D Total Bilirubin 0.3 0.2 AST 96 H 21 ALT 178 H 35 H Alkaline Phosphatase 129 H 86 Total Protein 6.2 L 5.5 L Albumin 3.4 L 3.1 L Triglycerides 131 Cholesterol 208 H LDL Cholesterol, Calc 140 H HDL Cholesterol 42 Airway Mallampati Class: II TM Dist: >3cm Neck ROM: Full Heart: RRR Lungs: CTA Assessment and Plan Final Anesthetic Review Family History of Problems with Anesthesia: No History of Problems with Anesthesia: No
--- NOTE | 2023-10-23 12:52 | P.CONAN_ITS ---
[facility] Active Problems Active Problems: All Active Problems (Updated 10/16/23 @ 13:45 by Lucia Garcia MD) Footdrop (Acute) Major depressive disorder, recurrent severe without psychotic features (Acute) Personality disorder (Acute) Organic catatonia (Acute) Abnormal EKG (Acute) Odynophagia (Acute) Paranoia (Acute) Dysphagia (Acute) Serotonin syndrome (Acute) Ataxia (Acute) Tremors of nervous system (Acute) Major depression in full remission (Acute) Depression, major, severe recurrence (Acute) Memory deficit (Acute) ADHD (attention deficit hyperactivity disorder) (Acute) ZAC (generalized anxiety disorder) (Acute) Depression (Acute) Pre-op evaluation (Acute) Acute bacterial conjunctivitis of both eyes (Acute) Hypercalcemia (Acute) Hypothyroidism (Acute) Leukocytosis (Acute) Hypertension (Chronic) Past Medical History Medical History Urinary tract infection Depression Hypothyroidism ZAC (generalized anxiety disorder) Hypertension ADHD (attention deficit hyperactivity disorder) Functional capacity: independent ambulation Family History Family History Other No pertinent family history Family history of problems with anesthesia: No Surgical History Surgical History H/O thumb surgery H/O cone biopsy of cervix History of Problems with Anesthesia: No Social History Social History Household Members: Spouse Household Members Other:: And two cats. Housing: House Do you presently have visiting nurse or other home services: No Unable to assess alcohol history related to: Unknown Alcohol intake: never Patient Tobacco Use Status: Former Tobacco user Quit Date: 20 years agp Tobacco use type: Cigarette Years Smoked: 20 Smoked in Last 30 Days: No e-Cigarette/Vaping Use: Never Used Patient Interested in Nicotine Replacement: No (n/a) Patient Given Instructions on How to Stop Smoking: No (n/a) Second Hand Smoke Exposure: No Use of substances other than those prescribed or required for medical reasons: Yes Substance Use Type: Former Substance User and Marijuana Last Used Substance Other:: 2 years Currently Displaying Signs/Symptoms of Drug Intoxication Withdrawal: No Any prior treatment program specific to substance use: No Have you been hit, kicked, punched, or otherwise hurt by someone within the past year? If so, by whom?: No Do you feel safe in your current relationship?: Yes Is there a partner from a previous relationship who is making you feel unsafe now?: No Are you made to feel afraid or neglected: No Spiritual Healthcare Practices: no Faith Healthcare Practices: no Cultural Healthcare Practices: no Are you DNR?: No Advance Directives: No Advance Directives Information Provided: No (declined) Advance Directives on File: No Do you have thoughts of harming others: None Do you have a plan to hurt others: No Plan Recently lost weight without trying: No How much weight loss: Unsure Eating poorly because of decreased appetite: Yes Nutrition screen score: 3 Patient : No : No Poor oral hygiene: No service: No Sexual orientation: Straight/Heterosexual Meds Allergies Allergy/AdvReac Type Severity Reaction Status Date / Time No Known Allergies Allergy Verified 08/27/23 10:27 Active Medications: Current Medications Acetaminophen (Acetaminophen 325 Mg Tablet) 650 mg PO Q4H PRN PRN Reason: Pain, Severe (Pain Scale 7-10) Last Admin: 10/15/23 10:29 Dose: 650 mg Al Hydroxide/Mg Hydroxide (Magnesium Hydrox/Alum Hydrox 30 Ml Oral.Susp) 30 ml PO Q6H PRN PRN Reason: Heartburn/Nausea Amlodipine Besylate (Amlodipine Besylate 5 Mg Tablet) 5 mg PO DAILY [facility]; Protocol Last Admin: 10/23/23 09:22 Dose: 5 mg Ascorbic Acid (Ascorbic Acid 500 Mg Tablet) 2,000 mg PO BEDTIME [facility] Last Admin: 10/22/23 21:11 Dose: 2,000 mg Bisacodyl (Bisacodyl 5 Mg Tablet.Dr) 10 mg PO DAILY PRN PRN Reason: Constipation Brimonidine Tartrate (Brimonidine Tartrate 0.2% Oph 5 Ml Bottle) 1 drop EYE- BOTH BID [facility] Last Admin: 10/22/23 21:10 Dose: 1 drop Bupropion HCl (Bupropion Hcl Xl 150 Mg Tab.Er.24h) 150 mg PO DAILY [facility] Last Admin: 10/22/23 09:24 Dose: 150 mg Fluticasone Propionate (Fluticasone Propionate Nasal 16 Gm [place]) 1 spray NOSTRIL-B BID [facility] Last Admin: 10/22/23 21:10 Dose: 1 spray Hydroxyzine HCl (Hydroxyzine Hcl 25 Mg Tablet) 25 mg PO Q6H PRN PRN Reason: Anxiety Last Admin: 10/22/23 21:15 Dose: 25 mg Lisinopril (Lisinopril 5 Mg Tablet) 15 mg PO DAILY [facility]; Protocol Last Admin: 10/23/23 09:21 Dose: 15 mg Lorazepam (Lorazepam 0.5 Mg Tablet) 0.5 mg PO Q8H PRN PRN Reason: Anxiety Last Admin: 10/22/23 12:06 Dose: 0.5 mg Magnesium Hydroxide (Milk Of Magnesia 30 Ml Oral.Susp) 30 ml PO DAILY PRN PRN Reason: Constipation Melatonin (Melatonin 3 Mg Tablet) 6 mg PO BEDTIME PRN PRN Reason: Insomnia Last Admin: 10/22/23 21:14 Dose: 6 mg Multivitamins/Vitamin C (Multivitamin Tablet) 1 tab PO DAILY [facility] Last Admin: 10/22/23 09:24 Dose: 1 tab Olanzapine (Olanzapine 2.5 Mg Tablet) 2.5 mg PO BID PRN PRN Reason: anxiety/restlessness Last Admin: 10/12/23 17:19 Dose: 2.5 mg Olanzapine (Olanzapine 2.5 Mg Tablet) 2.5 mg PO BEDTIME [facility] Last Admin: 10/22/23 21:16 Dose: 2.5 mg Olanzapine (Olanzapine 2.5 Mg Tablet) 2.5 mg PO DAILY [facility] Last Admin: 10/22/23 09:25 Dose: 2.5 mg Omeprazole (Omeprazole 20 Mg Capsule.Dr) 20 mg PO DAILY@0630 [facility] Last Admin: 10/23/23 06:00 Dose: Not Given Ondansetron HCl (Ondansetron Odt 4 Mg Tab.Rapdis) 4 mg TRANSLINGU Q8H PRN PRN Reason: Nausea and Vomiting Last Admin: 10/14/23 09:40 Dose: 4 mg Polyethylene Glycol (Polyethylene Glycol 3350 17 Gm Powd.Pack) 17 gm PO DAILY [facility] Last Admin: 10/22/23 09:25 Dose: Not Given Propranolol HCl (Propranolol Hcl 10 Mg Tablet) 10 mg PO TID [facility]; Protocol Last Admin: 10/23/23 11:34 Dose: 10 mg Senna/Docusate Sodium (Sennosides/Docusate Sodium Tablet) 2 tab PO BID [facility] Last Admin: 10/22/23 21:16 Dose: Not Given Tamsulosin HCl (Tamsulosin Hcl 0.4 Mg Capsule) 0.4 mg PO DAILY [facility] Last Admin: 10/22/23 09:25 Dose: 0.4 mg Thiamine HCl (Thiamine Hcl 100 Mg Tablet) 100 mg PO DAILY [facility] Last Admin: 10/22/23 09:24 Dose: 100 mg Vortioxetine (Vortioxetine Hydrobromide 10 Mg Tablet) 10 mg PO DAILY [facility] Last Admin: 10/22/23 09:24 Dose: 10 mg Home Medications Medication Instructions Recorded Confirmed Last Taken Type amlodipine 5 mg tablet 10 mg PO DAILY 10/23/22 08/27/23 10/23/22 History fluticasone propionate 50 1 spray intranasal BID 08/27/23 08/27/23 Unknown History mcg/actuation nasal spray,suspension propranolol 20 mg tablet 20 mg PO BID 08/27/23 08/27/23 Unknown History Exam Height,Weight and Vital Signs: Height 5 ft 1 in Weight 48.534 kg Last Vital Signs Temp 97.1 F 10/23/23 12:03 Pulse 78 10/23/23 12:03 Resp 18 10/23/23 12:03 BP 160/76 H 10/23/23 12:03 Pulse Ox 95 10/23/23 12:03 O2 Del Method Room Air 10/23/23 08:03 O2 Flow Rate 2 10/19/23 08:27 Pertinent Lab Results Pertinent Lab Results: Laboratory Tests 09/28/23 09/29/23 10/13/23 14:09 07:53 13:22 WBC 8.0 RBC 3.92 L Hgb 11.4 L Hct 36.0 L MCV 91.8 MCH 29.1 MCHC 31.7 RDW 14.1 Plt Count 290 MPV 9.5 Immature Gran % (Auto) 0.5 H Neut % (Auto) 74.2 H Lymph % (Auto) 14.1 L [place] % (Auto) 8.4 Eos % (Auto) 2.4 Baso % (Auto) 0.4 Lymph # (Auto) 1.1 L [place] # (Auto) 0.7 Eos # (Auto) 0.2 Baso # (Auto) 0.0 Abs Immat Gran (auto) 0.04 H Absolute Neuts (auto) 5.9 Absolute Nucleated RBC 0.000 Nucleated RBC % (auto) 0.0 Sodium 144 139 Potassium 4.0 4.9 D Chloride 105 105 Carbon Dioxide 31 H 30 H Anion Gap 12 9 L BUN 14 16 Creatinine 0.82 0.76 1.03 Estim Creat Clear Calc TNP 48.5 36.6 Estimated GFR > 60 > 60 53 Random Glucose 115 Fasting Glucose 133 H Calcium 10.6 H D 9.6 D Total Bilirubin 0.3 0.2 AST 96 H 21 ALT 178 H 35 H Alkaline Phosphatase 129 H 86 Total Protein 6.2 L 5.5 L Albumin 3.4 L 3.1 L Triglycerides 131 Cholesterol 208 H LDL Cholesterol, Calc 140 H HDL Cholesterol 42 Airway Mallampati Class: II TM Dist: >3cm Neck ROM: Full Heart: RRR Lungs: CTA Assessment and Plan Assessment Anesthesia Assessment: Anesthesia Plan Discussed Final Anesthetic Review Family History of Problems with Anesthesia: No History of Problems with Anesthesia: No ASA Class: III Final Preanesthetic Review: Meds/Allgs Chart Reviewed, Consent Obtained/Reviewed and Anes Risks/Benef Reviewed Patient Risk: Low Procedure Risk: Low Anesthetic Plan Anesthetic Plan: GA Disposition: Standard PACU
[2023-10-23] MEDS: Scopolamine 1.5 MG PATCH.TD.3 EAR-BEHIND (13:00)
[2023-10-23] MEDS: Vortioxetine Hydrobromide 10 MG TABLET PO (14:52)
[2023-10-23] MEDS: Tamsulosin HCL 0.4 MG CAPSULE PO (14:52)
[2023-10-23] MEDS: Multivitamin TABLET 1 TAB PO (14:52)
[2023-10-23] MEDS: buPROPion HCl XL 150 MG TAB.ER.24H PO (14:53)
[2023-10-23] MEDS: Thiamine HCL 100 MG TABLET PO (14:53)
[2023-10-23] MEDS: OLANZapine 2.5 MG TABLET PO ×2 (14:53→20:47)
[2023-10-23] MEDS: Ascorbic Acid 500 MG TABLET 2000 MG PO (20:45)
[2023-10-23] MEDS: hydrOXYzine HCL 25 MG TABLET PO (20:48)
[2023-10-23] MEDS: Melatonin 3 MG TABLET 6 MG PO (20:48)
[2023-10-23] MEDS: Brimonidine Tartrate 0.2% Oph 5 ML BOTTLE 1 DROP EYE-BOTH (21:01)
--- NOTE | 2023-10-23 21:09 | MHC.SHP ---
Pre-Procedural Eval Section A Date of Service: 10/23/23 The patient is an INPATIENT: Yes Changes since office visit: Yes Changes in Medication and Yes Patient answered all questions; No Cold of Flu in the past 2 weeks and No New Medical Problems The History & Physical has been completed within 30 days and I have reviewed it.: Yes Section B Chief Complaint: Severe depression Allergies: Allergies Allergy/AdvReac Type Severity Reaction Status Date / Time No Known Allergies Allergy Verified 08/27/23 10:27 Plan I have reviewed the history and physical and performed a pertinent physical examination on my patient. No changes have occurred unless specified. Time Spent With Patient Time: Total time managing care of this patient today ____ minutes.
--- NOTE | 2023-10-23 21:10 | HO.ECTPROC ---
ECT Procedure Note Diagnosis/Treatment Date of Service: 10/23/23 Diagnosis: Major Depressive Disorder Current Treatment Number: 3 Treatment: Series Interval Clinical Notes: pt showing clear improvement no significant ect side effects noted Time: Total time managing care of this patient today ____ minutes. ECT Settings Device: THYMATRON DGx Electrode Placement: Right Unilateral Program/Pulse Width: 0.25 Energy Percent: 90 Seizure Duration By EEG (in seconds): 36 Medications Administration General Anesthetic: Methohexital (80) Muscle Relaxant: Succinylcholine (80) Ancillary Medications Anti-emetics: Zofran - Pre ECT Miscillaneous Medications: Propofol Airway Management Airway Management: Bag Mask Ventilation Treatment Recommendations No Changes Recommended: No change Pt Tolerated Procedure w/o Issue: Yes
[2023-10-24] MEDS: Omeprazole 20 MG CAPSULE.DR PO (06:19)
[2023-10-24 08:10] VITALS: BP 114/58; PULSE 66; RESP 18; TEMP 36.2; O2SAT 97
[2023-10-24] MEDS: Fluticasone Propionate Nasal 16 GM SPRAY 1 SPRAY NOSTRIL-B ×2 (08:52→20:09)
[2023-10-24] MEDS: Vortioxetine Hydrobromide 10 MG TABLET PO (08:52)
[2023-10-24] MEDS: polyethylene glycoL 3350 17 GM POWD.PACK PO (08:52)
[2023-10-24] MEDS: Brimonidine Tartrate 0.2% Oph 5 ML BOTTLE 1 DROP EYE-BOTH ×2 (08:52→20:09)
[2023-10-24] MEDS: buPROPion HCl XL 150 MG TAB.ER.24H PO (08:52)
[2023-10-24] MEDS: Sennosides/Docusate Sodium TABLET 2 TAB PO (08:52)
[2023-10-24] MEDS: Thiamine HCL 100 MG TABLET PO (08:52)
[2023-10-24] MEDS: Propranolol HCL 10 MG TABLET PO ×3 (08:53→20:12)
[2023-10-24] MEDS: Multivitamin TABLET 1 TAB PO (08:53)
[2023-10-24] MEDS: amLODIPine Besylate 5 MG TABLET PO (08:53)
[2023-10-24] MEDS: lisinopriL 5 MG TABLET 15 MG PO (08:53)
[2023-10-24] MEDS: OLANZapine 2.5 MG TABLET PO ×2 (08:53→20:13)
[2023-10-24] MEDS: Tamsulosin HCL 0.4 MG CAPSULE PO (08:53)
--- NOTE | 2023-10-24 11:23 | P.PNPSI_ITS ---
Subjective Subjective Date of Service: 10/24/23 Reason For Visit: Severe depression Subjective Notes: Conditional Voluntary Interim History: The nursing staff reported the patient had being dysphoric, most of the time in her room, flat. On interview the patient denies new symptoms she denies side effects with ECT mostly nausea improved with scopolamine. Mental Status Exam Mental Status Exam Patient Appearance: Well Grooomed and Appropriate Patient Orientation: Person and Situation Level of Consciousness: Awake and Appropriate Patient Behavior: Guarded and Passive Mood Description: Withdrawn Affect Description: Constricted Patient Cognition Impaired: Yes Ability to Follow Directions: Good Speech Pattern: Clear Hallucinations: None Delusions: Not Present Thought Process: Distracted and Evasive Thought Content: positive for [place] and positive for Poverty of Content Judgement: Fair Diagnostics Vital Signs (24Hr): Vital Signs - 24 hr 10/23/23 12:03 10/23/23 13:55 10/23/23 14:00 Temperature 97.1 F 98.4 F Pulse Rate 78 75 81 Respiratory Rate 18 16 16 Blood Pressure 160/76 H 132/67 153/72 H Pulse Oximetry 95 98 98 Oxygen Delivery Method Nasal Cannula Room Air Oxygen Flow Rate 2 10/23/23 14:05 10/23/23 14:10 10/23/23 14:25 Temperature 98.4 F Pulse Rate 70 74 70 Respiratory Rate 16 16 16 Blood Pressure 152/66 H 162/66 H 157/73 H Pulse Oximetry 96 96 97 Oxygen Delivery Method Room Air Room Air Room Air Oxygen Flow Rate 10/23/23 14:48 10/23/23 18:00 10/24/23 08:10 Temperature 98.1 F 98.2 F 97.2 F Pulse Rate 70 75 66 Respiratory Rate 18 16 18 Blood Pressure 154/82 H 123/64 114/58 L Pulse Oximetry 96 96 97 Oxygen Delivery Method Room Air Room Air Oxygen Flow Rate BMI result Body Mass Index 20.2 Labs 10/13/23 13:22 10/13/23 13:22 Imaging Radiology Impressions: ITS Impressions Head CT 10/08/23 16:26 IMPRESSION: No acute intracranial process seen. Ankle X-Ray 10/23/23 08:59 IMPRESSION: Unremarkable examination. Foot X-Ray 10/23/23 08:59 IMPRESSION: Unremarkable examination. Medications Medications Current Medications Acetaminophen (Acetaminophen 325 Mg Tablet) 650 mg PO Q4H PRN PRN Reason: Pain, Severe (Pain Scale 7-10) Last Admin: 10/15/23 10:29 Dose: 650 mg Al Hydroxide/Mg Hydroxide (Magnesium Hydrox/Alum Hydrox 30 Ml Oral.Susp) 30 ml PO Q6H PRN PRN Reason: Heartburn/Nausea Amlodipine Besylate (Amlodipine Besylate 5 Mg Tablet) 5 mg PO DAILY [facility]; Protocol Last Admin: 10/24/23 08:53 Dose: 5 mg Ascorbic Acid (Ascorbic Acid 500 Mg Tablet) 2,000 mg PO BEDTIME [facility] Last Admin: 10/23/23 20:45 Dose: 2,000 mg Bisacodyl (Bisacodyl 5 Mg Tablet.Dr) 10 mg PO DAILY PRN PRN Reason: Constipation Brimonidine Tartrate (Brimonidine Tartrate 0.2% Oph 5 Ml Bottle) 1 drop EYE- BOTH BID [facility] Last Admin: 10/24/23 08:52 Dose: 1 drop Bupropion HCl (Bupropion Hcl Xl 150 Mg Tab.Er.24h) 150 mg PO DAILY [facility] Last Admin: 10/24/23 08:52 Dose: 150 mg Fluticasone Propionate (Fluticasone Propionate Nasal 16 Gm [place]) 1 spray NOSTRIL-B BID [facility] Last Admin: 10/24/23 08:52 Dose: 1 spray Hydroxyzine HCl (Hydroxyzine Hcl 25 Mg Tablet) 25 mg PO Q6H PRN PRN Reason: Anxiety Last Admin: 10/23/23 20:48 Dose: 25 mg Lisinopril (Lisinopril 5 Mg Tablet) 15 mg PO DAILY [facility]; Protocol Last Admin: 10/24/23 08:53 Dose: 15 mg Lorazepam (Lorazepam 0.5 Mg Tablet) 0.5 mg PO Q8H PRN PRN Reason: Anxiety Last Admin: 10/22/23 12:06 Dose: 0.5 mg Magnesium Hydroxide (Milk Of Magnesia 30 Ml Oral.Susp) 30 ml PO DAILY PRN PRN Reason: Constipation Melatonin (Melatonin 3 Mg Tablet) 6 mg PO BEDTIME PRN PRN Reason: Insomnia Last Admin: 10/23/23 20:48 Dose: 6 mg Multivitamins/Vitamin C (Multivitamin Tablet) 1 tab PO DAILY [facility] Last Admin: 10/24/23 08:53 Dose: 1 tab Olanzapine (Olanzapine 2.5 Mg Tablet) 2.5 mg PO BID PRN PRN Reason: anxiety/restlessness Last Admin: 10/12/23 17:19 Dose: 2.5 mg Olanzapine (Olanzapine 2.5 Mg Tablet) 2.5 mg PO BEDTIME [facility] Last Admin: 10/23/23 20:47 Dose: 2.5 mg Olanzapine (Olanzapine 2.5 Mg Tablet) 2.5 mg PO DAILY [facility] Last Admin: 10/24/23 08:53 Dose: 2.5 mg Omeprazole (Omeprazole 20 Mg Capsule.Dr) 20 mg PO DAILY@0630 [facility] Last Admin: 10/24/23 06:19 Dose: 20 mg Ondansetron HCl (Ondansetron Odt 4 Mg Tab.Rapdis) 4 mg TRANSLINGU Q8H PRN PRN Reason: Nausea and Vomiting Last Admin: 10/14/23 09:40 Dose: 4 mg Polyethylene Glycol (Polyethylene Glycol 3350 17 Gm Powd.Pack) 17 gm PO DAILY [facility] Last Admin: 10/24/23 08:52 Dose: 17 gm Propranolol HCl (Propranolol Hcl 10 Mg Tablet) 10 mg PO TID [facility]; Protocol Last Admin: 10/24/23 08:53 Dose: 10 mg Senna/Docusate Sodium (Sennosides/Docusate Sodium Tablet) 2 tab PO BID [facility] Last Admin: 10/24/23 08:52 Dose: 2 tab Tamsulosin HCl (Tamsulosin Hcl 0.4 Mg Capsule) 0.4 mg PO DAILY [facility] Last Admin: 10/24/23 08:53 Dose: 0.4 mg Thiamine HCl (Thiamine Hcl 100 Mg Tablet) 100 mg PO DAILY [facility] Last Admin: 10/24/23 08:52 Dose: 100 mg Vortioxetine (Vortioxetine Hydrobromide 10 Mg Tablet) 10 mg PO DAILY [facility] Last Admin: 10/24/23 08:52 Dose: 10 mg Allergies Allergies Allergy/AdvReac Type Severity Reaction Status Date / Time No Known Allergies Allergy Verified 08/27/23 10:27 Assessment & Plan Assessment & Plan (1) Bipolar II disorder: Status: Inactive Code(s): F31.81 - Bipolar II disorder (2) Delirium: Status: Resolved Code(s): R41.0 - Disorientation, unspecified (3) Depression, major, severe recurrence: Status: Acute Code(s): F33.2 - Major depressive disorder, recurrent severe without psychotic features (4) Hypertension: Status: Chronic Code(s): I10 - Essential (primary) hypertension (5) Odynophagia: Status: Acute Code(s): R13.10 - Dysphagia, unspecified (6) Major depressive disorder, recurrent severe without psychotic features: Status: Acute Code(s): F33.2 - Major depressive disorder, recurrent severe without psychotic features Plan The patient is an elderly female with a past history of mood disorder, anxiety personality disorder NOS who was brought into the hospital for altered mental status after a short course of as provide of for depression. 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 After being medically cleared she was transferring to this facility for psychiatric stabilization. Plan 1. Gather collateral information. 2. Continue Risperdal and antidepressants as started the medicine. 3. Regular blood work and reassessment with results. 4. 15 minute checks. 5. Speech and swallow evaluation for possible change of diet. 09/30/23 add wellbutrin 75 mg non serotonergic trintellix 5 mg remains with some PI but improved encourage phys rehab 10/01/23 Patient shows improved mood and energy ambulating better more active. Concerns regarding her short-term memory remembering names and fears regarding strength in her has which do seem somewhat bilaterally diminished and some numbness tingling seems to be improving cont trintellix wellbutrin 10/02/2023 Patient generally trending upwards generally less depressed but complicated by periods of paranoia and then apprehension depression and despair feels like she can trust staff and somehow they are intentionally playing with her in some way denies self-harm Recent confusional episode lasting a number of weeks question all serotonergic syndrome delirium question related to S ketamine Encourage out of bed ambulation PT consult increase in Risperdal had recently been on Latuda Vraylar and Rexulti without clear benefit would maintain current low-dose Trintellix 5 mg Wellbutrin recently started 75 mg 10/03: Continue current management and treatment plan. 10/04: Continue current management and treatment plan. Medication changes per primary team Dr. Shearer that knows the patient well. 10/05/2023 Increase Trintellix to 10 mg increase Wellbutrin to 100 mg consider change Risperdal to olanzapine or Seroquel strongly consider ECT patient having difficulty with trust 10/06/23 stop risperadol olanzapine hs and prn 10/07/23 Pt anxious depressed inc trintellix 10 mg inc olanzapine 2.5 am 5 hs wellbutrin 100 mg am 10/08/2023 The patient reports depression, we will continue with Trintellix and we will lower Zyprexa up to 2.5 p.o. q.h.s. and keep p.r.n. 2.5 Zyprexa as needed for psychosis. 10/09 keep same treatment 10/10 restart propanolol 10mg po TID for essential tremors. 10/11 continue tx. 10/12/23 hopeless helpless pos pi inc olanzapine suspicious anxious ? ect 10/13/2023 Patient hopeless helpless despondent severely depressed has not responded to multiple antidepressant trials and augmentation strategies. She appears delusional the depressed hopeless helpless with thoughts that she would be better off denies current plan or intent reviewed risks benefits alternatives with patient son and patient is asking for ECT no medical contraindications. She did has some significant amnesia will maintain right unilateral no more than 2 times a week try and maintain at 0.25 pulse width there seemed to be few alternatives at this point EKG unremarkable 10/14/2023 Patient seen with her see ECT note 10/15/2023 Encourage increase head of bed continue physical therapy recent head CT was unremarkable neuro consult question neuropathy question left footdrop will get hospitalist consult continue Trintellix Wellbutrin 10/16/2023 Increase Wellbutrin to 150 mg daily monitor for hypertension agitation worsening constipation continue Trental X ECT scheduled for 3 days Needs much support and courage mint 10/17/23 Continue regime and plan of care. 10/18/23 Continue regime and plan of care. 10/22/23 Pt seen in f/u cont ect consider inc 3 x wk ck l foot xr 10/23 continue same treatment ECT today. We are going to discuss the possibility of increasing ECT 3 times a week 10/24 continue same treatment Reason for continued inpatient stay Substantial Risk for: inability to function, rapid decompensation and med/psych decompensation Time Spent With Patient Time: Total time managing care of this patient today __20__ minutes.
[2023-10-24 14:47] VITALS: BP 115/54; PULSE 64
[2023-10-24 18:00] VITALS: BP 155/62; PULSE 66; RESP 16; TEMP 36.1; O2SAT 96
[2023-10-24] MEDS: Ascorbic Acid 500 MG TABLET 2000 MG PO (20:11)
[2023-10-24] MEDS: hydrOXYzine HCL 25 MG TABLET PO (20:13)
[2023-10-25] MEDS: Omeprazole 20 MG CAPSULE.DR PO (05:51)
[2023-10-25 08:05] VITALS: BP 109/56; PULSE 78; RESP 18; TEMP 36.3; O2SAT 97
[2023-10-25] MEDS: Brimonidine Tartrate 0.2% Oph 5 ML BOTTLE 1 DROP EYE-BOTH ×2 (08:44→21:12)
[2023-10-25] MEDS: lisinopriL 5 MG TABLET 15 MG PO (08:44)
[2023-10-25] MEDS: Fluticasone Propionate Nasal 16 GM SPRAY 1 SPRAY NOSTRIL-B ×2 (08:44→21:12)
[2023-10-25] MEDS: Sennosides/Docusate Sodium TABLET 2 TAB PO ×2 (08:45→21:08)
[2023-10-25] MEDS: Tamsulosin HCL 0.4 MG CAPSULE PO (08:45)
[2023-10-25] MEDS: Thiamine HCL 100 MG TABLET PO (08:45)
[2023-10-25] MEDS: buPROPion HCl XL 150 MG TAB.ER.24H PO (08:45)
[2023-10-25] MEDS: Propranolol HCL 10 MG TABLET PO ×3 (08:45→21:09)
[2023-10-25] MEDS: OLANZapine 2.5 MG TABLET PO ×2 (08:45→21:08)
[2023-10-25] MEDS: Vortioxetine Hydrobromide 10 MG TABLET PO (08:45)
[2023-10-25] MEDS: amLODIPine Besylate 5 MG TABLET PO (08:45)
[2023-10-25] MEDS: Multivitamin TABLET 1 TAB PO (08:46)
--- NOTE | 2023-10-25 11:07 | HO.PSYCHPN ---
Subjective Subjective Date of Service: 10/25/23 Reason For Visit: Severe depression Subjective Notes: Conditional Voluntary Interim History: The nursing staff reported the patient has been isolative to her room, she was seen for short period of time to watch TV. She has been withdrawn and she slept 8 hours. On interview the patient reports that she is anxious for ECT tomorrow, she looks brighter. Mental Status Exam Mental Status Exam Patient Appearance: Well Grooomed and Appropriate Patient Orientation: Person and Situation Level of Consciousness: Awake and Appropriate Patient Behavior: Guarded and Passive Mood Description: Withdrawn Affect Description: Constricted Patient Cognition Impaired: Yes Ability to Follow Directions: Good Speech Pattern: Clear Hallucinations: None Delusions: Not Present Thought Process: Distracted Thought Content: positive for [place], positive for [place] and positive for Poverty of Content Judgement: Fair Diagnostics Vital Signs (24Hr): Vital Signs - 24 hr 10/24/23 14:47 10/24/23 18:00 10/25/23 08:05 Temperature 96.9 F 97.3 F Pulse Rate 64 66 78 Respiratory Rate 16 18 Blood Pressure 115/54 L 155/62 H 109/56 L Pulse Oximetry 96 97 Oxygen Delivery Method Room Air Room Air BMI result Body Mass Index 20.2 Labs 10/13/23 13:22 10/13/23 13:22 Imaging Radiology Impressions: ITS Impressions Head CT 10/08/23 16:26 IMPRESSION: No acute intracranial process seen. Ankle X-Ray 10/23/23 08:59 IMPRESSION: Unremarkable examination. Foot X-Ray 10/23/23 08:59 IMPRESSION: Unremarkable examination. Medications Medications Current Medications Acetaminophen (Acetaminophen 325 Mg Tablet) 650 mg PO Q4H PRN PRN Reason: Pain, Severe (Pain Scale 7-10) Last Admin: 10/15/23 10:29 Dose: 650 mg Al Hydroxide/Mg Hydroxide (Magnesium Hydrox/Alum Hydrox 30 Ml Oral.Susp) 30 ml PO Q6H PRN PRN Reason: Heartburn/Nausea Amlodipine Besylate (Amlodipine Besylate 5 Mg Tablet) 5 mg PO DAILY [facility]; Protocol Last Admin: 10/25/23 08:45 Dose: 5 mg Ascorbic Acid (Ascorbic Acid 500 Mg Tablet) 2,000 mg PO BEDTIME [facility] Last Admin: 10/24/23 20:11 Dose: 2,000 mg Bisacodyl (Bisacodyl 5 Mg Tablet.Dr) 10 mg PO DAILY PRN PRN Reason: Constipation Brimonidine Tartrate (Brimonidine Tartrate 0.2% Oph 5 Ml Bottle) 1 drop EYE-BOTH BID [facility] Last Admin: 10/25/23 08:44 Dose: 1 drop Bupropion HCl (Bupropion Hcl Xl 150 Mg Tab.Er.24h) 150 mg PO DAILY [facility] Last Admin: 10/25/23 08:45 Dose: 150 mg Fluticasone Propionate (Fluticasone Propionate Nasal 16 Gm [place]) 1 spray NOSTRIL-B BID [facility] Last Admin: 10/25/23 08:44 Dose: 1 spray Hydroxyzine HCl (Hydroxyzine Hcl 25 Mg Tablet) 25 mg PO Q6H PRN PRN Reason: Anxiety Last Admin: 10/24/23 20:13 Dose: 25 mg Lisinopril (Lisinopril 5 Mg Tablet) 15 mg PO DAILY [facility]; Protocol Last Admin: 10/25/23 08:44 Dose: 15 mg Lorazepam (Lorazepam 0.5 Mg Tablet) 0.5 mg PO Q8H PRN PRN Reason: Anxiety Last Admin: 10/22/23 12:06 Dose: 0.5 mg Magnesium Hydroxide (Milk Of Magnesia 30 Ml Oral.Susp) 30 ml PO DAILY PRN PRN Reason: Constipation Melatonin (Melatonin 3 Mg Tablet) 6 mg PO BEDTIME PRN PRN Reason: Insomnia Last Admin: 10/23/23 20:48 Dose: 6 mg Multivitamins/Vitamin C (Multivitamin Tablet) 1 tab PO DAILY [facility] Last Admin: 10/25/23 08:46 Dose: 1 tab Olanzapine (Olanzapine 2.5 Mg Tablet) 2.5 mg PO BID PRN PRN Reason: anxiety/restlessness Last Admin: 10/12/23 17:19 Dose: 2.5 mg Olanzapine (Olanzapine 2.5 Mg Tablet) 2.5 mg PO BEDTIME [facility] Last Admin: 10/24/23 20:13 Dose: 2.5 mg Olanzapine (Olanzapine 2.5 Mg Tablet) 2.5 mg PO DAILY [facility] Last Admin: 10/25/23 08:45 Dose: 2.5 mg Omeprazole (Omeprazole 20 Mg Capsule.) 20 mg PO DAILY@0630 [facility] Last Admin: 10/25/23 05:51 Dose: 20 mg Ondansetron HCl (Ondansetron Odt 4 Mg Tab.Rapdis) 4 mg TRANSLINGU Q8H PRN PRN Reason: Nausea and Vomiting Last Admin: 10/14/23 09:40 Dose: 4 mg Polyethylene Glycol (Polyethylene Glycol 3350 17 Gm Powd.Pack) 17 gm PO DAILY [facility] Last Admin: 10/25/23 08:44 Dose: Not Given Propranolol HCl (Propranolol Hcl 10 Mg Tablet) 10 mg PO TID [facility]; Protocol Last Admin: 10/25/23 08:45 Dose: 10 mg Senna/Docusate Sodium (Sennosides/Docusate Sodium Tablet) 2 tab PO BID [facility] Last Admin: 10/25/23 08:45 Dose: 2 tab Tamsulosin HCl (Tamsulosin Hcl 0.4 Mg Capsule) 0.4 mg PO DAILY [facility] Last Admin: 10/25/23 08:45 Dose: 0.4 mg Thiamine HCl (Thiamine Hcl 100 Mg Tablet) 100 mg PO DAILY [facility] Last Admin: 10/25/23 08:45 Dose: 100 mg Vortioxetine (Vortioxetine Hydrobromide 10 Mg Tablet) 10 mg PO DAILY [facility] Last Admin: 10/25/23 08:45 Dose: 10 mg Allergies Allergies Allergy/AdvReac Type Severity Reaction Status Date / Time No Known Allergies Allergy Verified 08/27/23 10:27 Assessment & Plan Assessment & Plan (1) Bipolar II disorder: Status: Inactive Code(s): F31.81 - Bipolar II disorder (2) Delirium: Status: Resolved Code(s): R41.0 - Disorientation, unspecified (3) Depression, major, severe recurrence: Status: Acute Code(s): F33.2 - Major depressive disorder, recurrent severe without psychotic features (4) Hypertension: Status: Chronic Code(s): I10 - Essential (primary) hypertension (5) Odynophagia: Status: Acute Code(s): R13.10 - Dysphagia, unspecified (6) Major depressive disorder, recurrent severe without psychotic features: Status: Acute Code(s): F33.2 - Major depressive disorder, recurrent severe without psychotic features Plan The patient is an elderly female with a past history of mood disorder, anxiety personality disorder NOS who was brought into the hospital for altered mental status after a short course of as provide of for depression. 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 After being medically cleared she was transferring to this facility for psychiatric stabilization. Plan 1. Gather collateral information. 2. Continue Risperdal and antidepressants as started the medicine. 3. Regular blood work and reassessment with results. 4. 15 minute checks. 5. Speech and swallow evaluation for possible change of diet. 09/30/23 add wellbutrin 75 mg non serotonergic trintellix 5 mg remains with some PI but improved encourage phys rehab 10/01/23 Patient shows improved mood and energy ambulating better more active. Concerns regarding her short-term memory remembering names and fears regarding strength in her has which do seem somewhat bilaterally diminished and some numbness tingling seems to be improving cont trintellix wellbutrin 10/02/2023 Patient generally trending upwards generally less depressed but complicated by periods of paranoia and then apprehension depression and despair feels like she can trust staff and somehow they are intentionally playing with her in some way denies self-harm Recent confusional episode lasting a number of weeks question all serotonergic syndrome delirium question related to S ketamine Encourage out of bed ambulation PT consult increase in Risperdal had recently been on Latuda Vraylar and Rexulti without clear benefit would maintain current low-dose Trintellix 5 mg Wellbutrin recently started 75 mg 10/03: Continue current management and treatment plan. 10/04: Continue current management and treatment plan. Medication changes per primary team Dr. Shearer that knows the patient well. 10/05/2023 Increase Trintellix to 10 mg increase Wellbutrin to 100 mg consider change Risperdal to olanzapine or Seroquel strongly consider ECT patient having difficulty with trust 10/06/23 stop risperadol olanzapine hs and prn 10/07/23 Pt anxious depressed inc trintellix 10 mg inc olanzapine 2.5 am 5 hs wellbutrin 100 mg am 10/08/2023 The patient reports depression, we will continue with Trintellix and we will lower Zyprexa up to 2.5 p.o. q.h.s. and keep p.r.n. 2.5 Zyprexa as needed for psychosis. 10/09 keep same treatment 10/10 restart propanolol 10mg po TID for essential tremors. 10/11 continue tx. 10/12/23 hopeless helpless pos pi inc olanzapine suspicious anxious ? ect 10/13/2023 Patient hopeless helpless despondent severely depressed has not responded to multiple antidepressant trials and augmentation strategies. She appears delusional the depressed hopeless helpless with thoughts that she would be better off denies current plan or intent reviewed risks benefits alternatives with patient son and patient is asking for ECT no medical contraindications. She did has some significant amnesia will maintain right unilateral no more than 2 times a week try and maintain at 0.25 pulse width there seemed to be few alternatives at this point EKG unremarkable 10/14/2023 Patient seen with her see ECT note 10/15/2023 Encourage increase head of bed continue physical therapy recent head CT was unremarkable neuro consult question neuropathy question left footdrop will get hospitalist consult continue Trintellix Wellbutrin 10/16/2023 Increase Wellbutrin to 150 mg daily monitor for hypertension agitation worsening constipation continue Trental X ECT scheduled for 3 days Needs much support and courage mint 10/17/23 Continue regime and plan of care. 10/18/23 Continue regime and plan of care. 10/22/23 Pt seen in f/u cont ect consider inc 3 x wk ck l foot xr 10/23 continue same treatment ECT today. We are going to discuss the possibility of increasing ECT 3 times a week 10/24 continue same treatment 10/25 continue same treatment ECT tomorrow. Reason for continued inpatient stay Substantial Risk for: inability to function, rapid decompensation and med/psych decompensation Time Spent With Patient Time: Total time managing care of this patient today __20__ minutes.
[2023-10-25 14:46] VITALS: BP 120/65; PULSE 65
[2023-10-25 18:00] VITALS: BP 106/59; PULSE 78; RESP 18; TEMP 36.8; O2SAT 98
[2023-10-25] MEDS: hydrOXYzine HCL 25 MG TABLET PO (21:08)
[2023-10-25] MEDS: Ascorbic Acid 500 MG TABLET 2000 MG PO (21:09)
[2023-10-26] VITALS (10 sets, daily range): BP systolic 116–168; BP diastolic 58–80; PULSE 63–70; RESP 13–18; TEMP 36.1–36.7; O2SAT 94–100
--- NOTE | 2023-10-26 07:02 | MHC.SHP ---
Pre-Procedural Eval Section A Date of Service: 10/26/23 The patient is an INPATIENT: Yes Changes since office visit: No Cold of Flu in the past 2 weeks, No New Medical Problems, No Changes in Medication and No Patient answered all questions The History & Physical has been completed within 30 days and I have reviewed it.: Yes Section B Chief Complaint: Severe depression Allergies: Allergies Allergy/AdvReac Type Severity Reaction Status Date / Time No Known Allergies Allergy Verified 08/27/23 10:27 Plan I have reviewed the history and physical and performed a pertinent physical examination on my patient. No changes have occurred unless specified. Time Spent With Patient Time: Total time managing care of this patient today ____ minutes.
[2023-10-26] MEDS: Scopolamine 1.5 MG PATCH.TD.3 TRANSDERMA (07:11)
--- NOTE | 2023-10-26 07:18 | HO.ECTPROC ---
ECT Procedure Note Diagnosis/Treatment Date of Service: 10/26/23 Diagnosis: Major Depressive Disorder Previous ECT Date: 10/23/23 Current Treatment Number: 4 Treatment: Series Interval Clinical Notes: The patient has improved clinically of her depression, she is more interactive, wider range of affect but she is still dysphoric with lack of energy. No side effects with the previous ECT. She denied nausea after the last ECT with Escopolamine patch. ECT done with regular R unilateral, I increased the energy to 90% but she had a long seizure, probably we should keep her on 0.25 85%. Woke up without any complaints. Time: Total time managing care of this patient today ____ minutes. ECT Settings Device: THYMATRON DGx Electrode Placement: Right Unilateral Program/Pulse Width: 0.25 Energy Percent: 90 Seizure Duration By EEG (in seconds): 109 By Motor Observation (in seconds): 0 Medications Administration General Anesthetic: Methohexital (80) Muscle Relaxant: Succinylcholine (80) Ancillary Medications Anti-emetics: Zofran - Pre ECT Miscillaneous Medications: Propofol (20 after ECT) Airway Management Airway Management: Bag Mask Ventilation Treatment Recommendations No Changes Recommended: No change Pt Tolerated Procedure w/o Issue: Yes
--- NOTE | 2023-10-26 08:03 | HO.ANESPROP2 ---
[facility] Active Problems Active Problems: All Active Problems (Updated 10/16/23 @ 13:45 by Lucia Garcia MD) Footdrop (Acute) Major depressive disorder, recurrent severe without psychotic features (Acute) Personality disorder (Acute) Organic catatonia (Acute) Abnormal EKG (Acute) Odynophagia (Acute) Paranoia (Acute) Dysphagia (Acute) Serotonin syndrome (Acute) Ataxia (Acute) Tremors of nervous system (Acute) Major depression in full remission (Acute) Depression, major, severe recurrence (Acute) Memory deficit (Acute) ADHD (attention deficit hyperactivity disorder) (Acute) ZAC (generalized anxiety disorder) (Acute) Depression (Acute) Pre-op evaluation (Acute) Acute bacterial conjunctivitis of both eyes (Acute) Hypercalcemia (Acute) Hypothyroidism (Acute) Leukocytosis (Acute) Hypertension (Chronic) Past Medical History Medical History Urinary tract infection Depression Hypothyroidism ZAC (generalized anxiety disorder) Hypertension ADHD (attention deficit hyperactivity disorder) Functional capacity: independent ambulation Family History Family History Other No pertinent family history Family history of problems with anesthesia: No Surgical History Surgical History H/O thumb surgery H/O cone biopsy of cervix History of Problems with Anesthesia: No Social History Social History Household Members: Spouse Household Members Other:: And two cats. Housing: House Do you presently have visiting nurse or other home services: No Unable to assess alcohol history related to: Unknown Alcohol intake: never Patient Tobacco Use Status: Former Tobacco user Quit Date: 20 years [facility] Tobacco use type: Cigarette Years Smoked: 20 Smoked in Last 30 Days: No e-Cigarette/Vaping Use: Never Used Patient Interested in Nicotine Replacement: No (n/a) Patient Given Instructions on How to Stop Smoking: No (n/a) Second Hand Smoke Exposure: No Use of substances other than those prescribed or required for medical reasons: Yes Substance Use Type: Former Substance User and Marijuana Last Used Substance Other:: 2 years Currently Displaying Signs/Symptoms of Drug Intoxication Withdrawal: No Any prior treatment program specific to substance use: No Have you been hit, kicked, punched, or otherwise hurt by someone within the past year? If so, by whom?: No Do you feel safe in your current relationship?: Yes Is there a partner from a previous relationship who is making you feel unsafe now?: No Are you made to feel afraid or neglected: No Spiritual Healthcare Practices: no [facility] Practices: no Cultural Healthcare Practices: no Are you DNR?: No Advance Directives: No Advance Directives Information Provided: No (declined) Advance Directives on File: No Do you have thoughts of harming others: None Do you have a plan to hurt others: No Plan Recently lost weight without trying: No How much weight loss: Unsure Eating poorly because of decreased appetite: Yes Nutrition screen score: 3 Patient : No : No Poor oral hygiene: No service: No Sexual orientation: Straight/Heterosexual Meds Allergies Allergy/AdvReac Type Severity Reaction Status Date / Time No Known Allergies Allergy Verified 08/27/23 10:27 Active Medications: Current Medications Acetaminophen (Acetaminophen 325 Mg Tablet) 650 mg PO Q4H PRN PRN Reason: Pain, Severe (Pain Scale 7-10) Last Admin: 10/15/23 10:29 Dose: 650 mg Al Hydroxide/Mg Hydroxide (Magnesium Hydrox/Alum Hydrox 30 Ml Oral.Susp) 30 ml PO Q6H PRN PRN Reason: Heartburn/Nausea Amlodipine Besylate (Amlodipine Besylate 5 Mg Tablet) 5 mg PO DAILY [facility]; Protocol Last Admin: 10/25/23 08:45 Dose: 5 mg Ascorbic Acid (Ascorbic Acid 500 Mg Tablet) 2,000 mg PO BEDTIME [facility] Last Admin: 10/25/23 21:09 Dose: 2,000 mg Bisacodyl (Bisacodyl 5 Mg Tablet.Dr) 10 mg PO DAILY PRN PRN Reason: Constipation Brimonidine Tartrate (Brimonidine Tartrate 0.2% Oph 5 Ml Bottle) 1 drop EYE-BOTH BID [facility] Last Admin: 10/25/23 21:12 Dose: 1 drop Bupropion HCl (Bupropion Hcl Xl 150 Mg Tab.Er.24h) 150 mg PO DAILY [facility] Last Admin: 10/25/23 08:45 Dose: 150 mg Fluticasone Propionate (Fluticasone Propionate Nasal 16 Gm [place]) 1 spray NOSTRIL-B BID [facility] Last Admin: 10/25/23 21:12 Dose: 1 spray Hydroxyzine HCl (Hydroxyzine Hcl 25 Mg Tablet) 25 mg PO Q6H PRN PRN Reason: Anxiety Last Admin: 10/25/23 21:08 Dose: 25 mg Lisinopril (Lisinopril 5 Mg Tablet) 15 mg PO DAILY [facility]; Protocol Last Admin: 10/25/23 08:44 Dose: 15 mg Lorazepam (Lorazepam 0.5 Mg Tablet) 0.5 mg PO Q8H PRN PRN Reason: Anxiety Last Admin: 10/22/23 12:06 Dose: 0.5 mg Magnesium Hydroxide (Milk Of Magnesia 30 Ml Oral.Susp) 30 ml PO DAILY PRN PRN Reason: Constipation Melatonin (Melatonin 3 Mg Tablet) 6 mg PO BEDTIME PRN PRN Reason: Insomnia Last Admin: 10/23/23 20:48 Dose: 6 mg Multivitamins/Vitamin C (Multivitamin Tablet) 1 tab PO DAILY [facility] Last Admin: 10/25/23 08:46 Dose: 1 tab Olanzapine (Olanzapine 2.5 Mg Tablet) 2.5 mg PO BID PRN PRN Reason: anxiety/restlessness Last Admin: 10/12/23 17:19 Dose: 2.5 mg Olanzapine (Olanzapine 2.5 Mg Tablet) 2.5 mg PO BEDTIME [facility] Last Admin: 10/25/23 21:08 Dose: 2.5 mg Olanzapine (Olanzapine 2.5 Mg Tablet) 2.5 mg PO DAILY [facility] Last Admin: 10/25/23 08:45 Dose: 2.5 mg Omeprazole (Omeprazole 20 Mg Capsule.Dr) 20 mg PO DAILY@0630 [facility] Last Admin: 10/26/23 06:02 Dose: Not Given Ondansetron HCl (Ondansetron Odt 4 Mg Tab.Rapdis) 4 mg TRANSLINGU Q8H PRN PRN Reason: Nausea and Vomiting Last Admin: 10/14/23 09:40 Dose: 4 mg Polyethylene Glycol (Polyethylene Glycol 3350 17 Gm Powd.Pack) 17 gm PO DAILY [facility] Last Admin: 10/25/23 08:44 Dose: Not Given Propranolol HCl (Propranolol Hcl 10 Mg Tablet) 10 mg PO TID [facility]; Protocol Last Admin: 10/25/23 21:09 Dose: 10 mg Senna/Docusate Sodium (Sennosides/Docusate Sodium Tablet) 2 tab PO BID [facility] Last Admin: 10/25/23 21:08 Dose: 2 tab Tamsulosin HCl (Tamsulosin Hcl 0.4 Mg Capsule) 0.4 mg PO DAILY [facility] Last Admin: 10/25/23 08:45 Dose: 0.4 mg Thiamine HCl (Thiamine Hcl 100 Mg Tablet) 100 mg PO DAILY [facility] Last Admin: 10/25/23 08:45 Dose: 100 mg Vortioxetine (Vortioxetine Hydrobromide 10 Mg Tablet) 10 mg PO DAILY [facility] Last Admin: 10/25/23 08:45 Dose: 10 mg Home Medications Medication Instructions Recorded Confirmed Last Taken Type amlodipine 5 mg tablet 10 mg PO DAILY 10/23/22 08/27/23 10/23/22 History fluticasone propionate 50 1 spray intranasal BID 08/27/23 08/27/23 Unknown History mcg/actuation nasal spray,suspension propranolol 20 mg tablet 20 mg PO BID 08/27/23 08/27/23 Unknown History Exam Height,Weight and Vital Signs: Height 5 ft 1 in Weight 48.534 kg Last Vital Signs Temp 97.0 F 10/26/23 07:58 Pulse 63 10/26/23 07:58 Resp 18 10/26/23 07:58 BP 155/59 H 10/26/23 07:58 Pulse Ox 96 10/26/23 07:58 O2 Del Method Room Air 10/26/23 07:58 O2 Flow Rate 2 10/26/23 07:40 Pertinent Lab Results Pertinent Lab Results: Laboratory Tests 09/28/23 09/29/23 10/13/23 14:09 07:53 13:22 WBC 8.0 RBC 3.92 L Hgb 11.4 L Hct 36.0 L MCV 91.8 MCH 29.1 MCHC 31.7 RDW 14.1 Plt Count 290 MPV 9.5 Immature Gran % (Auto) 0.5 H Neut % (Auto) 74.2 H Lymph % (Auto) 14.1 L Tucker % (Auto) 8.4 Eos % (Auto) 2.4 Baso % (Auto) 0.4 Lymph # (Auto) 1.1 L Tucker # (Auto) 0.7 Eos # (Auto) 0.2 Baso # (Auto) 0.0 Abs Immat Gran (auto) 0.04 H Absolute Neuts (auto) 5.9 Absolute Nucleated RBC 0.000 Nucleated RBC % (auto) 0.0 Sodium 144 139 Potassium 4.0 4.9 D Chloride 105 105 Carbon Dioxide 31 H 30 H Anion Gap 12 9 L BUN 14 16 Creatinine 0.82 0.76 1.03 Estim Creat Clear Calc TNP 48.5 36.6 Estimated GFR > 60 > 60 53 Random Glucose 115 Fasting Glucose 133 H Calcium 10.6 H D 9.6 D Total Bilirubin 0.3 0.2 AST 96 H 21 ALT 178 H 35 H Alkaline Phosphatase 129 H 86 Total Protein 6.2 L 5.5 L Albumin 3.4 L 3.1 L Triglycerides 131 Cholesterol 208 H LDL Cholesterol, Calc 140 H HDL Cholesterol 42 Airway Mallampati Class: II TM Dist: >3cm Neck ROM: Full Heart: RRR Lungs: CTA Assessment and Plan Assessment Anesthesia Assessment: Anesthesia Plan Discussed and Chart Reviewed Final Anesthetic Review Family History of Problems with Anesthesia: No History of Problems with Anesthesia: No NPO: Yes ASA Class: III Final Preanesthetic Review: Meds/Allgs Chart Reviewed, Consent Obtained/Reviewed and Anes Risks/Benef Reviewed Patient Risk: Low Procedure Risk: Intermediate Anesthetic Plan Anesthetic Plan: GA Disposition: Standard PACU
[2023-10-26] MEDS: Vortioxetine Hydrobromide 10 MG TABLET PO (08:32)
[2023-10-26] MEDS: Sennosides/Docusate Sodium TABLET 2 TAB PO ×2 (08:32→20:51)
[2023-10-26] MEDS: Multivitamin TABLET 1 TAB PO (08:32)
[2023-10-26] MEDS: Omeprazole 20 MG CAPSULE.DR PO (08:33)
[2023-10-26] MEDS: Propranolol HCL 10 MG TABLET PO ×3 (08:33→20:51)
[2023-10-26] MEDS: buPROPion HCl XL 150 MG TAB.ER.24H PO (08:33)
[2023-10-26] MEDS: Thiamine HCL 100 MG TABLET PO (08:33)
[2023-10-26] MEDS: amLODIPine Besylate 5 MG TABLET PO (08:33)
[2023-10-26] MEDS: OLANZapine 2.5 MG TABLET PO ×2 (08:33→20:51)
[2023-10-26] MEDS: Fluticasone Propionate Nasal 16 GM SPRAY 1 SPRAY NOSTRIL-B ×2 (08:34→20:50)
[2023-10-26] MEDS: lisinopriL 5 MG TABLET 15 MG PO (08:34)
[2023-10-26] MEDS: Brimonidine Tartrate 0.2% Oph 5 ML BOTTLE 1 DROP EYE-BOTH ×2 (08:34→20:50)
[2023-10-26] MEDS: Tamsulosin HCL 0.4 MG CAPSULE PO (08:34)
--- NOTE | 2023-10-26 14:58 | P.PNPSI_ITS ---
Subjective Subjective Date of Service: 10/26/23 Reason For Visit: Severe depression Subjective Notes: Conditional Voluntary Interim History: The nursing staff reported that her affect is brighter, she went to ECT with no problems. On interview the patient remains feeling depressed but her affect is much better. Mental Status Exam Mental Status Exam Patient Appearance: Appropriate Patient Orientation: Person and Situation Level of Consciousness: Awake and Appropriate Patient Behavior: Appropriate and Passive Mood Description: Withdrawn Affect Description: Constricted Patient Cognition Impaired: No Ability to Follow Directions: Good Speech Pattern: Clear Hallucinations: None Delusions: Not Present Thought Process: Distracted and Slowed Thinking Thought Content: positive for Circumstantial Judgement: Fair Diagnostics Vital Signs (24Hr): Vital Signs - 24 hr 10/25/23 18:00 10/26/23 06:09 10/26/23 07:25 Temperature 98.2 F 98.1 F 98.0 F Pulse Rate 78 64 70 Respiratory Rate 18 16 13 Blood Pressure 106/59 L 133/62 154/58 H Pulse Oximetry 98 95 100 Oxygen Delivery Method Room Air Nasal Cannula with ETCO2 Oxygen Flow Rate 2 10/26/23 07:30 10/26/23 07:35 10/26/23 07:40 Temperature Pulse Rate 69 66 69 Respiratory Rate 18 17 17 Blood Pressure 116/59 L 116/59 L 140/75 H Pulse Oximetry 99 99 97 Oxygen Delivery Method Nasal Cannula with ETCO2 Nasal Cannula with ETCO2 Nasal Cannula with ETCO2 Oxygen Flow Rate 2 2 2 10/26/23 07:58 10/26/23 08:00 10/26/23 08:30 Temperature 97.0 F 97.1 F 97.1 F Pulse Rate 63 69 69 Respiratory Rate 18 18 18 Blood Pressure 155/59 H 168/80 H 168/80 H Pulse Oximetry 96 94 Oxygen Delivery Method Room Air Room Air Oxygen Flow Rate BMI result Body Mass Index 20.2 Labs 10/13/23 13:22 10/13/23 13:22 Imaging Radiology Impressions: ITS Impressions Head CT 10/08/23 16:26 IMPRESSION: No acute intracranial process seen. Ankle X-Ray 10/23/23 08:59 IMPRESSION: Unremarkable examination. Foot X-Ray 10/23/23 08:59 IMPRESSION: Unremarkable examination. Medications Medications Current Medications Acetaminophen (Acetaminophen 325 Mg Tablet) 650 mg PO Q4H PRN PRN Reason: Pain, Severe (Pain Scale 7-10) Last Admin: 10/15/23 10:29 Dose: 650 mg Al Hydroxide/Mg Hydroxide (Magnesium Hydrox/Alum Hydrox 30 Ml Oral.Susp) 30 ml PO Q6H PRN PRN Reason: Heartburn/Nausea Amlodipine Besylate (Amlodipine Besylate 5 Mg Tablet) 5 mg PO DAILY [facility]; Protocol Last Admin: 10/26/23 08:33 Dose: 5 mg Ascorbic Acid (Ascorbic Acid 500 Mg Tablet) 2,000 mg PO BEDTIME [facility] Last Admin: 10/25/23 21:09 Dose: 2,000 mg Bisacodyl (Bisacodyl 5 Mg Tablet.Dr) 10 mg PO DAILY PRN PRN Reason: Constipation Brimonidine Tartrate (Brimonidine Tartrate 0.2% Oph 5 Ml Bottle) 1 drop EYE- BOTH BID [facility] Last Admin: 10/26/23 08:34 Dose: 1 drop Bupropion HCl (Bupropion Hcl Xl 150 Mg Tab.Er.24h) 150 mg PO DAILY [facility] Last Admin: 10/26/23 08:33 Dose: 150 mg Fluticasone Propionate (Fluticasone Propionate Nasal 16 Gm [place]) 1 spray NOSTRIL-B BID [facility] Last Admin: 10/26/23 08:34 Dose: 1 spray Hydroxyzine HCl (Hydroxyzine Hcl 25 Mg Tablet) 25 mg PO Q6H PRN PRN Reason: Anxiety Last Admin: 10/25/23 21:08 Dose: 25 mg Lisinopril (Lisinopril 5 Mg Tablet) 15 mg PO DAILY [facility]; Protocol Last Admin: 10/26/23 08:34 Dose: 15 mg Lorazepam (Lorazepam 0.5 Mg Tablet) 0.5 mg PO Q8H PRN PRN Reason: Anxiety Last Admin: 10/22/23 12:06 Dose: 0.5 mg Magnesium Hydroxide (Milk Of Magnesia 30 Ml Oral.Susp) 30 ml PO DAILY PRN PRN Reason: Constipation Melatonin (Melatonin 3 Mg Tablet) 6 mg PO BEDTIME PRN PRN Reason: Insomnia Last Admin: 10/23/23 20:48 Dose: 6 mg Multivitamins/Vitamin C (Multivitamin Tablet) 1 tab PO DAILY [facility] Last Admin: 10/26/23 08:32 Dose: 1 tab Olanzapine (Olanzapine 2.5 Mg Tablet) 2.5 mg PO BID PRN PRN Reason: anxiety/restlessness Last Admin: 10/12/23 17:19 Dose: 2.5 mg Olanzapine (Olanzapine 2.5 Mg Tablet) 2.5 mg PO BEDTIME [facility] Last Admin: 10/25/23 21:08 Dose: 2.5 mg Olanzapine (Olanzapine 2.5 Mg Tablet) 2.5 mg PO DAILY [facility] Last Admin: 10/26/23 08:33 Dose: 2.5 mg Omeprazole (Omeprazole 20 Mg Capsule.Dr) 20 mg PO DAILY@0630 [facility] Last Admin: 10/26/23 08:33 Dose: 20 mg Ondansetron HCl (Ondansetron Odt 4 Mg Tab.Rapdis) 4 mg TRANSLINGU Q8H PRN PRN Reason: Nausea and Vomiting Last Admin: 10/14/23 09:40 Dose: 4 mg Polyethylene Glycol (Polyethylene Glycol 3350 17 Gm Powd.Pack) 17 gm PO DAILY [facility] Last Admin: 10/26/23 08:34 Dose: Not Given Propranolol HCl (Propranolol Hcl 10 Mg Tablet) 10 mg PO TID [facility]; Protocol Last Admin: 10/26/23 08:33 Dose: 10 mg Senna/Docusate Sodium (Sennosides/Docusate Sodium Tablet) 2 tab PO BID [facility] Last Admin: 10/26/23 08:32 Dose: 2 tab Tamsulosin HCl (Tamsulosin Hcl 0.4 Mg Capsule) 0.4 mg PO DAILY [facility] Last Admin: 10/26/23 08:34 Dose: 0.4 mg Thiamine HCl (Thiamine Hcl 100 Mg Tablet) 100 mg PO DAILY [facility] Last Admin: 10/26/23 08:33 Dose: 100 mg Vortioxetine (Vortioxetine Hydrobromide 10 Mg Tablet) 10 mg PO DAILY [facility] Last Admin: 10/26/23 08:32 Dose: 10 mg Allergies Allergies Allergy/AdvReac Type Severity Reaction Status Date / Time No Known Allergies Allergy Verified 08/27/23 10:27 Assessment & Plan Assessment & Plan (1) Bipolar II disorder: Status: Inactive Code(s): F31.81 - Bipolar II disorder (2) Delirium: Status: Resolved Code(s): R41.0 - Disorientation, unspecified (3) Depression, major, severe recurrence: Status: Acute Code(s): F33.2 - Major depressive disorder, recurrent severe without psychotic features (4) Hypertension: Status: Chronic Code(s): I10 - Essential (primary) hypertension (5) Odynophagia: Status: Acute Code(s): R13.10 - Dysphagia, unspecified (6) Major depressive disorder, recurrent severe without psychotic features: Status: Acute Code(s): F33.2 - Major depressive disorder, recurrent severe without psychotic features Plan The patient is an elderly female with a past history of mood disorder, anxiety personality disorder NOS who was brought into the hospital for altered mental status after a short course of as provide of for depression. 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 After being medically cleared she was transferring to this facility for psychiatric stabilization. Plan 1. Gather collateral information. 2. Continue Risperdal and antidepressants as started the medicine. 3. Regular blood work and reassessment with results. 4. 15 minute checks. 5. Speech and swallow evaluation for possible change of diet. 09/30/23 add wellbutrin 75 mg non serotonergic trintellix 5 mg remains with some PI but improved encourage phys rehab 10/01/23 Patient shows improved mood and energy ambulating better more active. Concerns regarding her short-term memory remembering names and fears regarding strength in her has which do seem somewhat bilaterally diminished and some numbness tingling seems to be improving cont trintellix wellbutrin 10/02/2023 Patient generally trending upwards generally less depressed but complicated by periods of paranoia and then apprehension depression and despair feels like she can trust staff and somehow they are intentionally playing with her in some way denies self-harm Recent confusional episode lasting a number of weeks question all serotonergic syndrome delirium question related to S ketamine Encourage out of bed ambulation PT consult increase in Risperdal had recently been on Latuda Vraylar and Rexulti without clear benefit would maintain current low-dose Trintellix 5 mg Wellbutrin recently started 75 mg 10/03: Continue current management and treatment plan. 10/04: Continue current management and treatment plan. Medication changes per primary team Dr. Shearer that knows the patient well. 10/05/2023 Increase Trintellix to 10 mg increase Wellbutrin to 100 mg consider change Risperdal to olanzapine or Seroquel strongly consider ECT patient having difficulty with trust 10/06/23 stop risperadol olanzapine hs and prn 10/07/23 Pt anxious depressed inc trintellix 10 mg inc olanzapine 2.5 am 5 hs wellbutrin 100 mg am 10/08/2023 The patient reports depression, we will continue with Trintellix and we will lower Zyprexa up to 2.5 p.o. q.h.s. and keep p.r.n. 2.5 Zyprexa as needed for psychosis. 10/09 keep same treatment 10/10 restart propanolol 10mg po TID for essential tremors. 10/11 continue tx. 10/12/23 hopeless helpless pos pi inc olanzapine suspicious anxious ? ect 10/13/2023 Patient hopeless helpless despondent severely depressed has not responded to multiple antidepressant trials and augmentation strategies. She appears delusional the depressed hopeless helpless with thoughts that she would be better off denies current plan or intent reviewed risks benefits alternatives with patient son and patient is asking for ECT no medical contraindications. She did has some significant amnesia will maintain right unilateral no more than 2 times a week try and maintain at 0.25 pulse width there seemed to be few alternatives at this point EKG unremarkable 10/14/2023 Patient seen with her see ECT note 10/15/2023 Encourage increase head of bed continue physical therapy recent head CT was unremarkable neuro consult question neuropathy question left footdrop will get hospitalist consult continue Trintellix Wellbutrin 10/16/2023 Increase Wellbutrin to 150 mg daily monitor for hypertension agitation worsening constipation continue Trental X ECT scheduled for 3 days Needs much support and courage mint 10/17/23 Continue regime and plan of care. 10/18/23 Continue regime and plan of care. 10/22/23 Pt seen in f/u cont ect consider inc 3 x wk ck l foot xr 10/23 continue same treatment ECT today. We are going to discuss the possibility of increasing ECT 3 times a week 10/24 continue same treatment 10/25 continue same treatment ECT tomorrow. 10/26 continue same treatment Reason for continued inpatient stay Substantial Risk for: inability to function, rapid decompensation and med/psych decompensation Time Spent With Patient Time: Total time managing care of this patient today __20__ minutes.
[2023-10-26] MEDS: Ascorbic Acid 500 MG TABLET 2000 MG PO (20:51)
[2023-10-27] MEDS: LORazepam 0.5 MG TABLET PO (00:34)
[2023-10-27] MEDS: Omeprazole 20 MG CAPSULE.DR PO (05:25)
[2023-10-27 08:07] VITALS: BP 128/76; PULSE 93; RESP 18; TEMP 36.6; O2SAT 94
[2023-10-27] MEDS: polyethylene glycoL 3350 17 GM POWD.PACK PO (08:10)
[2023-10-27] MEDS: Thiamine HCL 100 MG TABLET PO (08:11)
[2023-10-27] MEDS: buPROPion HCl XL 150 MG TAB.ER.24H PO (08:11)
[2023-10-27] MEDS: Multivitamin TABLET 1 TAB PO (08:11)
[2023-10-27] MEDS: amLODIPine Besylate 5 MG TABLET PO (08:11)
[2023-10-27] MEDS: Vortioxetine Hydrobromide 10 MG TABLET PO (08:11)
[2023-10-27] MEDS: Propranolol HCL 10 MG TABLET PO ×3 (08:11→21:35)
[2023-10-27] MEDS: OLANZapine 2.5 MG TABLET PO ×2 (08:11→21:35)
[2023-10-27] MEDS: Sennosides/Docusate Sodium TABLET 2 TAB PO ×2 (08:12→21:36)
[2023-10-27] MEDS: Brimonidine Tartrate 0.2% Oph 5 ML BOTTLE 1 DROP EYE-BOTH ×2 (08:12→21:35)
[2023-10-27] MEDS: lisinopriL 5 MG TABLET 15 MG PO (08:12)
[2023-10-27] MEDS: Tamsulosin HCL 0.4 MG CAPSULE PO (08:12)
[2023-10-27] MEDS: Fluticasone Propionate Nasal 16 GM SPRAY 1 SPRAY NOSTRIL-B ×2 (08:12→21:35)
--- NOTE | 2023-10-27 12:03 | HO.PSYCHPN ---
Subjective Subjective Date of Service: 10/27/23 Reason For Visit: Severe depression Subjective Notes: Conditional Voluntary Interim History: The nursing staff reported the patient had been compliant with treatment, she looks with a brighter affect. The staff noticed that she was slightly confused after ECT yesterday. She slept 7 hours. Today we discussed with the patient treatment options and she agreed to defer the next ECT to Thursday since she was 6 slightly confused after the last ECT yesterday. Overall, we see a brighter range of affect even though that she complains of dysphoria. Mental Status Exam Mental Status Exam Patient Appearance: Well Grooomed and Appropriate Patient Orientation: Person and Situation Level of Consciousness: Awake and Appropriate Patient Behavior: Guarded and Passive Mood Description: Withdrawn Affect Description: Constricted Patient Cognition Impaired: Yes Ability to Follow Directions: Good Speech Pattern: Clear Hallucinations: None Delusions: Not Present Thought Process: Distracted and Slowed Thinking Thought Content: positive for [place] and positive for Poverty of Content Judgement: Fair Diagnostics Vital Signs (24Hr): Vital Signs - 24 hr 10/26/23 15:57 10/26/23 19:35 10/27/23 08:07 Temperature 97.6 F 97.9 F Pulse Rate 66 93 Respiratory Rate 16 18 Blood Pressure 148/78 H 165/74 H 128/76 Pulse Oximetry 97 94 Oxygen Delivery Method Room Air Room Air BMI result Body Mass Index 20.2 Labs 10/13/23 13:22 10/13/23 13:22 Imaging Radiology Impressions: ITS Impressions Head CT 10/08/23 16:26 IMPRESSION: No acute intracranial process seen. Ankle X-Ray 10/23/23 08:59 IMPRESSION: Unremarkable examination. Foot X-Ray 10/23/23 08:59 IMPRESSION: Unremarkable examination. Medications Medications Current Medications Acetaminophen (Acetaminophen 325 Mg Tablet) 650 mg PO Q4H PRN PRN Reason: Pain, Severe (Pain Scale 7-10) Last Admin: 10/15/23 10:29 Dose: 650 mg Al Hydroxide/Mg Hydroxide (Magnesium Hydrox/Alum Hydrox 30 Ml Oral.Susp) 30 ml PO Q6H PRN PRN Reason: Heartburn/Nausea Amlodipine Besylate (Amlodipine Besylate 5 Mg Tablet) 5 mg PO DAILY NORBERTO; Protocol Last Admin: 10/27/23 08:11 Dose: 5 mg Ascorbic Acid (Ascorbic Acid 500 Mg Tablet) 2,000 mg PO BEDTIME NORBERTO Last Admin: 10/26/23 20:51 Dose: 2,000 mg Bisacodyl (Bisacodyl 5 Mg Tablet.Dr) 10 mg PO DAILY PRN PRN Reason: Constipation Brimonidine Tartrate (Brimonidine Tartrate 0.2% Oph 5 Ml Bottle) 1 drop EYE-BOTH BID [facility] Last Admin: 10/27/23 08:12 Dose: 1 drop Bupropion HCl (Bupropion Hcl Xl 150 Mg Tab.Er.24h) 150 mg PO DAILY [facility] Last Admin: 10/27/23 08:11 Dose: 150 mg Fluticasone Propionate (Fluticasone Propionate Nasal 16 Gm [place]) 1 spray NOSTRIL-B BID [facility] Last Admin: 10/27/23 08:12 Dose: 1 spray Hydroxyzine HCl (Hydroxyzine Hcl 25 Mg Tablet) 25 mg PO Q6H PRN PRN Reason: Anxiety Last Admin: 10/25/23 21:08 Dose: 25 mg Lisinopril (Lisinopril 5 Mg Tablet) 15 mg PO DAILY [facility]; Protocol Last Admin: 10/27/23 08:12 Dose: 15 mg Magnesium Hydroxide (Milk Of Magnesia 30 Ml Oral.Susp) 30 ml PO DAILY PRN PRN Reason: Constipation Melatonin (Melatonin 3 Mg Tablet) 6 mg PO BEDTIME PRN PRN Reason: Insomnia Last Admin: 10/23/23 20:48 Dose: 6 mg Multivitamins/Vitamin C (Multivitamin Tablet) 1 tab PO DAILY [facility] Last Admin: 10/27/23 08:11 Dose: 1 tab Olanzapine (Olanzapine 2.5 Mg Tablet) 2.5 mg PO BID PRN PRN Reason: anxiety/restlessness Last Admin: 10/12/23 17:19 Dose: 2.5 mg Olanzapine (Olanzapine 2.5 Mg Tablet) 2.5 mg PO BEDTIME [facility] Last Admin: 10/26/23 20:51 Dose: 2.5 mg Olanzapine (Olanzapine 2.5 Mg Tablet) 2.5 mg PO DAILY [facility] Last Admin: 10/27/23 08:11 Dose: 2.5 mg Omeprazole (Omeprazole 20 Mg Capsule.Dr) 20 mg PO DAILY@0630 [facility] Last Admin: 10/27/23 05:25 Dose: 20 mg Ondansetron HCl (Ondansetron Odt 4 Mg Tab.Rapdis) 4 mg TRANSLINGU Q8H PRN PRN Reason: Nausea and Vomiting Last Admin: 10/14/23 09:40 Dose: 4 mg Polyethylene Glycol (Polyethylene Glycol 3350 17 Gm Powd.Pack) 17 gm PO DAILY [facility] Last Admin: 10/27/23 08:10 Dose: 17 gm Propranolol HCl (Propranolol Hcl 10 Mg Tablet) 10 mg PO TID [facility]; Protocol Last Admin: 10/27/23 08:11 Dose: 10 mg Senna/Docusate Sodium (Sennosides/Docusate Sodium Tablet) 2 tab PO BID [facility] Last Admin: 10/27/23 08:12 Dose: 2 tab Tamsulosin HCl (Tamsulosin Hcl 0.4 Mg Capsule) 0.4 mg PO DAILY [facility] Last Admin: 10/27/23 08:12 Dose: 0.4 mg Thiamine HCl (Thiamine Hcl 100 Mg Tablet) 100 mg PO DAILY [facility] Last Admin: 10/27/23 08:11 Dose: 100 mg Vortioxetine (Vortioxetine Hydrobromide 10 Mg Tablet) 10 mg PO DAILY [facility] Last Admin: 10/27/23 08:11 Dose: 10 mg Allergies Allergies Allergy/AdvReac Type Severity Reaction Status Date / Time No Known Allergies Allergy Verified 08/27/23 10:27 Assessment & Plan Assessment & Plan (1) Bipolar II disorder: Status: Inactive Code(s): F31.81 - Bipolar II disorder (2) Delirium: Status: Resolved Code(s): R41.0 - Disorientation, unspecified (3) Depression, major, severe recurrence: Status: Acute Code(s): F33.2 - Major depressive disorder, recurrent severe without psychotic features (4) Hypertension: Status: Chronic Code(s): I10 - Essential (primary) hypertension (5) Odynophagia: Status: Acute Code(s): R13.10 - Dysphagia, unspecified (6) Major depressive disorder, recurrent severe without psychotic features: Status: Acute Code(s): F33.2 - Major depressive disorder, recurrent severe without psychotic features Plan The patient is an elderly female with a past history of mood disorder, anxiety personality disorder NOS who was brought into the hospital for altered mental status after a short course of as provide of for depression. 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 After being medically cleared she was transferring to this facility for psychiatric stabilization. Plan 1. Gather collateral information. 2. Continue Risperdal and antidepressants as started the medicine. 3. Regular blood work and reassessment with results. 4. 15 minute checks. 5. Speech and swallow evaluation for possible change of diet. 09/30/23 add wellbutrin 75 mg non serotonergic trintellix 5 mg remains with some PI but improved encourage phys rehab 10/01/23 Patient shows improved mood and energy ambulating better more active. Concerns regarding her short-term memory remembering names and fears regarding strength in her has which do seem somewhat bilaterally diminished and some numbness tingling seems to be improving cont trintellix wellbutrin 10/02/2023 Patient generally trending upwards generally less depressed but complicated by periods of paranoia and then apprehension depression and despair feels like she can trust staff and somehow they are intentionally playing with her in some way denies self-harm Recent confusional episode lasting a number of weeks question all serotonergic syndrome delirium question related to S ketamine Encourage out of bed ambulation PT consult increase in Risperdal had recently been on Latuda Vraylar and Rexulti without clear benefit would maintain current low-dose Trintellix 5 mg Wellbutrin recently started 75 mg 10/03: Continue current management and treatment plan. 10/04: Continue current management and treatment plan. Medication changes per primary team Dr. Shearer that knows the patient well. 10/05/2023 Increase Trintellix to 10 mg increase Wellbutrin to 100 mg consider change Risperdal to olanzapine or Seroquel strongly consider ECT patient having difficulty with trust 10/06/23 stop risperadol olanzapine hs and prn 10/07/23 Pt anxious depressed inc trintellix 10 mg inc olanzapine 2.5 am 5 hs wellbutrin 100 mg am 10/08/2023 The patient reports depression, we will continue with Trintellix and we will lower Zyprexa up to 2.5 p.o. q.h.s. and keep p.r.n. 2.5 Zyprexa as needed for psychosis. 10/09 keep same treatment 10/10 restart propanolol 10mg po TID for essential tremors. 10/11 continue tx. 10/12/23 hopeless helpless pos pi inc olanzapine suspicious anxious ? ect 10/13/2023 Patient hopeless helpless despondent severely depressed has not responded to multiple antidepressant trials and augmentation strategies. She appears delusional the depressed hopeless helpless with thoughts that she would be better off denies current plan or intent reviewed risks benefits alternatives with patient son and patient is asking for ECT no medical contraindications. She did has some significant amnesia will maintain right unilateral no more than 2 times a week try and maintain at 0.25 pulse width there seemed to be few alternatives at this point EKG unremarkable 10/14/2023 Patient seen with her see ECT note 10/15/2023 Encourage increase head of bed continue physical therapy recent head CT was unremarkable neuro consult question neuropathy question left footdrop will get hospitalist consult continue Trintellix Wellbutrin 10/16/2023 Increase Wellbutrin to 150 mg daily monitor for hypertension agitation worsening constipation continue Trental X ECT scheduled for 3 days Needs much support and courage mint 10/17/23 Continue regime and plan of care. 10/18/23 Continue regime and plan of care. 10/22/23 Pt seen in f/u cont ect consider inc 3 x wk ck l foot xr 10/23 continue same treatment ECT today. We are going to discuss the possibility of increasing ECT 3 times a week 10/24 continue same treatment 10/25 continue same treatment ECT tomorrow. 10/26 continue same treatment. 10/27 continue same treatment, ECT for next Thursday Reason for continued inpatient stay Substantial Risk for: inability to function, rapid decompensation and med/psych decompensation Time Spent With Patient Time: Total time managing care of this patient today __20__ minutes.
[2023-10-27 17:00] VITALS: BP 130/60; PULSE 84; RESP 18
[2023-10-27 20:21] LABS: Influenza A PCR NEGATIVE (Negative); Influenza B PCR NEGATIVE (Negative); Resp Syncy Virus RNA Qual PCR NEGATIVE (Negative); SARS COV2 PCR INHOUSE NEGATIVE (Negative)
[2023-10-27] MEDS: Ascorbic Acid 500 MG TABLET 2000 MG PO (21:35)
--- NOTE | 2023-10-27 23:57 | PM.EVENT ---
Event Note Date of Service: 10/27/23 Event Note: Requested by Dr. Bueno to see Ms. Miriam Alvarado who is a 72 year old WF admitted to inpatient unit and who was noted to be unsteady on her feet and leaning on the right side when walking. I saw her in her room ([id number] [facility]). I found her resting comfortable in bed. She is awake, alert and conversant. She reports that her left foot is swollen and that she cannot move it around the ankle joint easily. She has no issues with her RLE Physical exam Vital signs are stable. She was able to sit up on the edge of the bed albeit with some help though almost fell backwards. After sitting there for a few minutes. I asked her to stand up using her walker which was at the bedside but she had great difficulty doing so and required my assistance. I tried to get her to walk but this required a 2 person assist and she was still very unsteady and listing to the right almost falling over. Ass/Plan 1. Unsteady gait - leans to the right when walking - this is new per her nurse - I ordered a CT scan that did not show any abnormalities - Will recommend we get Physical therapy to see her tomorrow morning for gait evaluation. - Will also recommend we consider getting Neurology to see her. Time Spent With Patient Time: Total time managing care of this patient today _30___ minutes.
[2023-10-28] MEDS: hydrOXYzine HCL 25 MG TABLET PO ×2 (01:49→19:55)
[2023-10-28] MEDS: Melatonin 3 MG TABLET 6 MG PO ×2 (01:49→19:56)
[2023-10-28] MEDS: Omeprazole 20 MG CAPSULE.DR PO (06:07)
[2023-10-28] MEDS: polyethylene glycoL 3350 17 GM POWD.PACK PO (08:32)
[2023-10-28] MEDS: buPROPion HCl XL 150 MG TAB.ER.24H PO (08:34)
[2023-10-28] MEDS: Vortioxetine Hydrobromide 10 MG TABLET PO (08:34)
[2023-10-28] MEDS: amLODIPine Besylate 5 MG TABLET PO (08:34)
[2023-10-28] MEDS: Propranolol HCL 10 MG TABLET PO ×3 (08:34→19:54)
[2023-10-28] MEDS: OLANZapine 2.5 MG TABLET PO ×2 (08:34→19:57)
[2023-10-28] MEDS: Multivitamin TABLET 1 TAB PO (08:35)
[2023-10-28] MEDS: Thiamine HCL 100 MG TABLET PO (08:35)
[2023-10-28] MEDS: Sennosides/Docusate Sodium TABLET 2 TAB PO (08:35)
[2023-10-28] MEDS: Tamsulosin HCL 0.4 MG CAPSULE PO (08:35)
[2023-10-28] MEDS: lisinopriL 5 MG TABLET 15 MG PO (08:42)
[2023-10-28] MEDS: Brimonidine Tartrate 0.2% Oph 5 ML BOTTLE 1 DROP EYE-BOTH ×2 (08:42→19:57)
[2023-10-28] MEDS: Fluticasone Propionate Nasal 16 GM SPRAY 1 SPRAY NOSTRIL-B ×2 (08:42→19:57)
[2023-10-28 08:49] VITALS: BP 116/58; PULSE 68; RESP 18; TEMP 36.2; O2SAT 95
[2023-10-28] MEDS: LORazepam 0.5 MG TABLET PO (14:31)
--- NOTE | 2023-10-28 15:42 | HO.PSYCHPN ---
Subjective Subjective Date of Service: 10/28/23 Reason For Visit: Severe depression Interim History: calm, cooperative. asks about head CT results, results WNL reviewed with pt. reports some weakness of left lower extremity; chart reviewed, pt reassured to work with PT on this issue. no other complaints or requests. per RN, no notable events or behaviors. Mental Status Exam Mental Status Exam Patient Appearance: Well Grooomed and Appropriate Patient Orientation: Person and Situation Level of Consciousness: Awake and Appropriate Patient Behavior: Guarded and Passive Mood Description: Withdrawn Affect Description: Constricted Patient Cognition Impaired: Yes Ability to Follow Directions: Good Speech Pattern: Clear Hallucinations: None Delusions: Not Present Thought Process: Distracted and Slowed Thinking Thought Content: positive for [place] and positive for Poverty of Content Judgement: Fair Diagnostics Vital Signs (24Hr): Vital Signs - 24 hr 10/27/23 17:00 10/28/23 08:49 Temperature 97.2 F Pulse Rate 84 68 Respiratory Rate 18 18 Blood Pressure 130/60 116/58 L Pulse Oximetry 95 Oxygen Delivery Method Room Air Room Air Oxygen Flow Rate 95 BMI result Body Mass Index 20.2 Labs 10/13/23 13:22 10/13/23 13:22 Labs: Laboratory Results - last 48 hr 10/27/23 19:30 Influenza Type A (PCR) NEGATIVE Influenza Type B (PCR) NEGATIVE RSV RNA Qual (PCR) NEGATIVE SARS-CoV-2 RNA (RT-PCR) NEGATIVE Imaging Radiology Impressions: ITS Impressions Head CT 10/08/23 16:26 IMPRESSION: No acute intracranial process seen. Ankle X-Ray 10/23/23 08:59 IMPRESSION: Unremarkable examination. Foot X-Ray 10/23/23 08:59 IMPRESSION: Unremarkable examination. Head CT 10/27/23 20:09 IMPRESSION: No acute intracranial pathology. This critical result was discussed with Dr. tyler Arce at 8:20 PM hours on 10/27/2023. It was ascertained that the content and urgency of the report was understood at the time of direct communication. Medications Medications Current Medications Acetaminophen (Acetaminophen 325 Mg Tablet) 650 mg PO Q4H PRN PRN Reason: Pain, Severe (Pain Scale 7-10) Last Admin: 10/15/23 10:29 Dose: 650 mg Al Hydroxide/Mg Hydroxide (Magnesium Hydrox/Alum Hydrox 30 Ml Oral.Susp) 30 ml PO Q6H PRN PRN Reason: Heartburn/Nausea Amlodipine Besylate (Amlodipine Besylate 5 Mg Tablet) 5 mg PO DAILY REPLACED BY [facility]; Protocol Last Admin: 10/28/23 08:34 Dose: 5 mg Ascorbic Acid (Ascorbic Acid 500 Mg Tablet) 2,000 mg PO BEDTIME NORBERTO Last Admin: 10/27/23 21:35 Dose: 2,000 mg Bisacodyl (Bisacodyl 5 Mg Tablet.Dr) 10 mg PO DAILY PRN PRN Reason: Constipation Brimonidine Tartrate (Brimonidine Tartrate 0.2% Oph 5 Ml Bottle) 1 drop EYE-BOTH BID REPLACED BY [facility] Last Admin: 10/28/23 08:42 Dose: 1 drop Bupropion HCl (Bupropion Hcl Xl 150 Mg Tab.Er.24h) 150 mg PO DAILY REPLACED BY [facility] Last Admin: 10/28/23 08:34 Dose: 150 mg Fluticasone Propionate (Fluticasone Propionate Nasal 16 Gm [place]) 1 spray NOSTRIL-B BID REPLACED BY [facility] Last Admin: 10/28/23 08:42 Dose: 1 spray Hydroxyzine HCl (Hydroxyzine Hcl 25 Mg Tablet) 25 mg PO Q6H PRN PRN Reason: Anxiety Last Admin: 10/28/23 01:49 Dose: 25 mg Lisinopril (Lisinopril 5 Mg Tablet) 15 mg PO DAILY REPLACED BY [facility]; Protocol Last Admin: 10/28/23 08:42 Dose: 15 mg Lorazepam (Lorazepam 0.5 Mg Tablet) 0.5 mg PO Q8H PRN PRN Reason: Anxiety Last Admin: 10/28/23 14:31 Dose: 0.5 mg Magnesium Hydroxide (Milk Of Magnesia 30 Ml Oral.Susp) 30 ml PO DAILY PRN PRN Reason: Constipation Melatonin (Melatonin 3 Mg Tablet) 6 mg PO BEDTIME PRN PRN Reason: Insomnia Last Admin: 10/28/23 01:49 Dose: 6 mg Multivitamins/Vitamin C (Multivitamin Tablet) 1 tab PO DAILY REPLACED BY [facility] Last Admin: 10/28/23 08:35 Dose: 1 tab Olanzapine (Olanzapine 2.5 Mg Tablet) 2.5 mg PO BID PRN PRN Reason: anxiety/restlessness Last Admin: 10/12/23 17:19 Dose: 2.5 mg Olanzapine (Olanzapine 2.5 Mg Tablet) 2.5 mg PO BEDTIME NORBERTO Last Admin: 10/27/23 21:35 Dose: 2.5 mg Olanzapine (Olanzapine 2.5 Mg Tablet) 2.5 mg PO DAILY REPLACED BY [facility] Last Admin: 10/28/23 08:34 Dose: 2.5 mg Omeprazole (Omeprazole 20 Mg Capsule.Dr) 20 mg PO DAILY@0630 REPLACED BY [facility] Last Admin: 10/28/23 06:07 Dose: 20 mg Ondansetron HCl (Ondansetron Odt 4 Mg Tab.Rapdis) 4 mg TRANSLINGU Q8H PRN PRN Reason: Nausea and Vomiting Last Admin: 10/14/23 09:40 Dose: 4 mg Polyethylene Glycol (Polyethylene Glycol 3350 17 Gm Powd.Pack) 17 gm PO DAILY PRN PRN Reason: constipation Propranolol HCl (Propranolol Hcl 10 Mg Tablet) 10 mg PO TID REPLACED BY [facility]; Protocol Last Admin: 10/28/23 14:31 Dose: 10 mg Senna/Docusate Sodium (Sennosides/Docusate Sodium Tablet) 2 tab PO BID REPLACED BY [facility] Last Admin: 10/28/23 08:35 Dose: 2 tab Tamsulosin HCl (Tamsulosin Hcl 0.4 Mg Capsule) 0.4 mg PO DAILY REPLACED BY [facility] Last Admin: 10/28/23 08:35 Dose: 0.4 mg Thiamine HCl (Thiamine Hcl 100 Mg Tablet) 100 mg PO DAILY REPLACED BY [facility] Last Admin: 10/28/23 08:35 Dose: 100 mg Vortioxetine (Vortioxetine Hydrobromide 10 Mg Tablet) 10 mg PO DAILY REPLACED BY [facility] Last Admin: 10/28/23 08:34 Dose: 10 mg Allergies Allergies Allergy/AdvReac Type Severity Reaction Status Date / Time No Known Allergies Allergy Verified 08/27/23 10:27 Assessment & Plan Assessment & Plan (1) Bipolar II disorder: Status: Inactive Code(s): F31.81 - Bipolar II disorder (2) Delirium: Status: Resolved Code(s): R41.0 - Disorientation, unspecified (3) Depression, major, severe recurrence: Status: Acute Code(s): F33.2 - Major depressive disorder, recurrent severe without psychotic features (4) Hypertension: Status: Chronic Code(s): I10 - Essential (primary) hypertension (5) Odynophagia: Status: Acute Code(s): R13.10 - Dysphagia, unspecified (6) Major depressive disorder, recurrent severe without psychotic features: Status: Acute Code(s): F33.2 - Major depressive disorder, recurrent severe without psychotic features Plan The patient is an elderly female with a past history of mood disorder, anxiety personality disorder NOS who was brought into the hospital for altered mental status after a short course of as provide of for depression. 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 After being medically cleared she was transferring to this facility for psychiatric stabilization. Plan 1. Gather collateral information. 2. Continue Risperdal and antidepressants as started the medicine. 3. Regular blood work and reassessment with results. 4. 15 minute checks. 5. Speech and swallow evaluation for possible change of diet. 09/30/23 add wellbutrin 75 mg non serotonergic trintellix 5 mg remains with some PI but improved encourage phys rehab 10/01/23 Patient shows improved mood and energy ambulating better more active. Concerns regarding her short-term memory remembering names and fears regarding strength in her has which do seem somewhat bilaterally diminished and some numbness tingling seems to be improving cont trintellix wellbutrin 10/02/2023 Patient generally trending upwards generally less depressed but complicated by periods of paranoia and then apprehension depression and despair feels like she can trust staff and somehow they are intentionally playing with her in some way denies self-harm Recent confusional episode lasting a number of weeks question all serotonergic syndrome delirium question related to S ketamine Encourage out of bed ambulation PT consult increase in Risperdal had recently been on Latuda Vraylar and Rexulti without clear benefit would maintain current low-dose Trintellix 5 mg Wellbutrin recently started 75 mg 10/03: Continue current management and treatment plan. 10/04: Continue current management and treatment plan. Medication changes per primary team Dr. Shearer that knows the patient well. 10/05/2023 Increase Trintellix to 10 mg increase Wellbutrin to 100 mg consider change Risperdal to olanzapine or Seroquel strongly consider ECT patient having difficulty with trust 10/06/23 stop risperadol olanzapine hs and prn 10/07/23 Pt anxious depressed inc trintellix 10 mg inc olanzapine 2.5 am 5 hs wellbutrin 100 mg am 10/08/2023 The patient reports depression, we will continue with Trintellix and we will lower Zyprexa up to 2.5 p.o. q.h.s. and keep p.r.n. 2.5 Zyprexa as needed for psychosis. 10/09 keep same treatment 10/10 restart propanolol 10mg po TID for essential tremors. 10/11 continue tx. 10/12/23 hopeless helpless pos pi inc olanzapine suspicious anxious ? ect 10/13/2023 Patient hopeless helpless despondent severely depressed has not responded to multiple antidepressant trials and augmentation strategies. She appears delusional the depressed hopeless helpless with thoughts that she would be better off denies current plan or intent reviewed risks benefits alternatives with patient son and patient is asking for ECT no medical contraindications. She did has some significant amnesia will maintain right unilateral no more than 2 times a week try and maintain at 0.25 pulse width there seemed to be few alternatives at this point EKG unremarkable 10/14/2023 Patient seen with her see ECT note 10/15/2023 Encourage increase head of bed continue physical therapy recent head CT was unremarkable neuro consult question neuropathy question left footdrop will get hospitalist consult continue Trintellix Wellbutrin 10/16/2023 Increase Wellbutrin to 150 mg daily monitor for hypertension agitation worsening constipation continue Trental X ECT scheduled for 3 days Needs much support and courage mint 10/17/23 Continue regime and plan of care. 10/18/23 Continue regime and plan of care. 10/22/23 Pt seen in f/u cont ect consider inc 3 x wk ck l foot xr 10/23 continue same treatment ECT today. We are going to discuss the possibility of increasing ECT 3 times a week 10/24 continue same treatment 10/25 continue same treatment ECT tomorrow. 10/26 continue same treatment. 10/27 continue same treatment, ECT for next Sunday 10/28: no change to mgmt. stable. headt CT WNL. working with PT on gait/LLE weakness. Reason for continued inpatient stay Substantial Risk for: harm to self, inability to function and rapid decompensation Time Spent With Patient Time: Total time managing care of this patient today ____ minutes.
[2023-10-28 18:00] VITALS: BP 111/66; PULSE 68; RESP 18; TEMP 36.3; O2SAT 97
[2023-10-28] MEDS: Ascorbic Acid 500 MG TABLET 2000 MG PO (19:53)
[2023-10-28] MEDS: Acetaminophen 325 MG TABLET 650 MG PO (20:21)
[2023-10-29] MEDS: Omeprazole 20 MG CAPSULE.DR PO (05:58)
[2023-10-29 07:00] VITALS: BMI 21.0
[2023-10-29 07:35] VITALS: BP 151/74; PULSE 78; RESP 18; TEMP 36.9; O2SAT 94
[2023-10-29] MEDS: Brimonidine Tartrate 0.2% Oph 5 ML BOTTLE 1 DROP EYE-BOTH ×2 (08:32→20:56)
[2023-10-29] MEDS: Fluticasone Propionate Nasal 16 GM SPRAY 1 SPRAY NOSTRIL-B ×2 (08:33→20:56)
[2023-10-29] MEDS: lisinopriL 5 MG TABLET 15 MG PO (08:33)
[2023-10-29] MEDS: Sennosides/Docusate Sodium TABLET 2 TAB PO ×2 (08:33→20:53)
[2023-10-29] MEDS: Tamsulosin HCL 0.4 MG CAPSULE PO (08:34)
[2023-10-29] MEDS: buPROPion HCl XL 150 MG TAB.ER.24H PO (08:34)
[2023-10-29] MEDS: OLANZapine 2.5 MG TABLET PO ×2 (08:35→20:53)
[2023-10-29] MEDS: Vortioxetine Hydrobromide 10 MG TABLET PO (08:35)
[2023-10-29] MEDS: Propranolol HCL 10 MG TABLET PO ×2 (08:35→20:53)
[2023-10-29] MEDS: Thiamine HCL 100 MG TABLET PO (08:35)
[2023-10-29] MEDS: amLODIPine Besylate 5 MG TABLET PO (08:36)
[2023-10-29] MEDS: Multivitamin TABLET 1 TAB PO (08:36)
--- NOTE | 2023-10-29 12:10 | PC.NURSE ---
VSS, B/P slightly elevated prior to medication. New +2 pitting edema left foot and ankle, +1 pitting right foot. Lung sounds are clear. in and questioning cause of swelling. Dr. Crouch into see patient. Patient also wants to try an upgrade in food to ground at this time. Dr. Crouch updated. Question dependent edema as patient has been up and out of bed more than ever.
[2023-10-29 14:26] VITALS: BP 92/50; PULSE 67
--- NOTE | 2023-10-29 14:27 | PC.NURSE ---
B/P 92/50 P67 now, feeling lightheaded, will hold 1500 Propranolol.
--- NOTE | 2023-10-29 15:45 | HO.PSYCHPN ---
Subjective Subjective Date of Service: 10/29/23 Reason For Visit: Severe depression Subjective Notes: Conditional Voluntary Interim History: The nursing staff reported the patient had been pleasant cooperative and she slept 8 hours, she ate 100% of her meals and today she reported her anxiety depression 04/25 but later on she was more dysphoric than usual. Today we had a meeting with her who reported that his mood worsen it since she did not have ECT yesterday. She also requested to change his diet to a better consistency even though that speech and swallow did not find any problems. Also there is some edema that were call in the hospitalist and starting Ben stockings. She looks slightly sedated in the morning so we are stopping Zyprexa in the morning. Tomorrow we will have ECT Mental Status Exam Mental Status Exam Patient Appearance: Well Grooomed and Appropriate Patient Orientation: Person, Place and Situation Level of Consciousness: Awake and Appropriate Patient Behavior: Guarded and Passive Mood Description: Withdrawn Affect Description: Constricted Patient Cognition Impaired: Yes Ability to Follow Directions: Good Speech Pattern: Clear Hallucinations: None Delusions: Not Present Thought Process: Distracted Thought Content: positive for [place] and positive for Circumstantial Judgement: Poor Diagnostics Vital Signs (24Hr): Vital Signs - 24 hr 10/28/23 18:00 10/29/23 07:35 10/29/23 14:26 Temperature 97.4 F 98.5 F Pulse Rate 68 78 67 Respiratory Rate 18 18 Blood Pressure 111/66 151/74 H 92/50 L Pulse Oximetry 97 94 Oxygen Delivery Method Room Air Room Air BMI result Body Mass Index 21.0 Labs 10/13/23 13:22 10/13/23 13:22 Labs: Laboratory Results - last 48 hr 10/27/23 19:30 Influenza Type A (PCR) NEGATIVE Influenza Type B (PCR) NEGATIVE RSV RNA Qual (PCR) NEGATIVE SARS-CoV-2 RNA (RT-PCR) NEGATIVE Imaging Radiology Impressions: ITS Impressions Head CT 10/08/23 16:26 IMPRESSION: No acute intracranial process seen. Ankle X-Ray 10/23/23 08:59 IMPRESSION: Unremarkable examination. Foot X-Ray 10/23/23 08:59 IMPRESSION: Unremarkable examination. Head CT 10/27/23 20:09 IMPRESSION: No acute intracranial pathology. This critical result was discussed with Dr. tyler Arce at 8:20 PM hours on 10/27/2023. It was ascertained that the content and urgency of the report was understood at the time of direct communication. Medications Medications Current Medications Acetaminophen (Acetaminophen 325 Mg Tablet) 650 mg PO Q4H PRN PRN Reason: Pain, Severe (Pain Scale 7-10) Last Admin: 10/28/23 20:21 Dose: 650 mg Al Hydroxide/Mg Hydroxide (Magnesium Hydrox/Alum Hydrox 30 Ml Oral.Susp) 30 ml PO Q6H PRN PRN Reason: Heartburn/Nausea Amlodipine Besylate (Amlodipine Besylate 5 Mg Tablet) 5 mg PO DAILY [facility]; Protocol Last Admin: 10/29/23 08:36 Dose: 5 mg Ascorbic Acid (Ascorbic Acid 500 Mg Tablet) 2,000 mg PO BEDTIME [facility] Last Admin: 10/28/23 19:53 Dose: 2,000 mg Bisacodyl (Bisacodyl 5 Mg Tablet.Dr) 10 mg PO DAILY PRN PRN Reason: Constipation Brimonidine Tartrate (Brimonidine Tartrate 0.2% Oph 5 Ml Bottle) 1 drop EYE-BOTH BID [facility] Last Admin: 10/29/23 08:32 Dose: 1 drop Bupropion HCl (Bupropion Hcl Xl 150 Mg Tab.Er.24h) 150 mg PO DAILY [facility] Last Admin: 10/29/23 08:34 Dose: 150 mg Fluticasone Propionate (Fluticasone Propionate Nasal 16 Gm [place]) 1 spray NOSTRIL-B BID [facility] Last Admin: 10/29/23 08:33 Dose: 1 spray Hydroxyzine HCl (Hydroxyzine Hcl 25 Mg Tablet) 25 mg PO Q6H PRN PRN Reason: Anxiety Last Admin: 10/28/23 19:55 Dose: 25 mg Lisinopril (Lisinopril 5 Mg Tablet) 15 mg PO DAILY [facility]; Protocol Last Admin: 10/29/23 08:33 Dose: 15 mg Lorazepam (Lorazepam 0.5 Mg Tablet) 0.5 mg PO Q8H PRN PRN Reason: Anxiety Last Admin: 10/28/23 14:31 Dose: 0.5 mg Magnesium Hydroxide (Milk Of Magnesia 30 Ml Oral.Susp) 30 ml PO DAILY PRN PRN Reason: Constipation Melatonin (Melatonin 3 Mg Tablet) 6 mg PO BEDTIME PRN PRN Reason: Insomnia Last Admin: 10/28/23 19:56 Dose: 6 mg Multivitamins/Vitamin C (Multivitamin Tablet) 1 tab PO DAILY [facility] Last Admin: 10/29/23 08:36 Dose: 1 tab Olanzapine (Olanzapine 2.5 Mg Tablet) 2.5 mg PO BID PRN PRN Reason: anxiety/restlessness Last Admin: 10/12/23 17:19 Dose: 2.5 mg Olanzapine (Olanzapine 2.5 Mg Tablet) 2.5 mg PO BEDTIME [facility] Last Admin: 10/28/23 19:57 Dose: 2.5 mg Omeprazole (Omeprazole 20 Mg Capsule.Dr) 20 mg PO DAILY@0630 [facility] Last Admin: 10/29/23 05:58 Dose: 20 mg Ondansetron HCl (Ondansetron Odt 4 Mg Tab.Rapdis) 4 mg TRANSLINGU Q8H PRN PRN Reason: Nausea and Vomiting Last Admin: 10/14/23 09:40 Dose: 4 mg Polyethylene Glycol (Polyethylene Glycol 3350 17 Gm Powd.Pack) 17 gm PO DAILY PRN PRN Reason: constipation Propranolol HCl (Propranolol Hcl 10 Mg Tablet) 10 mg PO TID [facility]; Protocol Last Admin: 10/29/23 14:27 Dose: Not Given Senna/Docusate Sodium (Sennosides/Docusate Sodium Tablet) 2 tab PO BID [facility] Last Admin: 10/29/23 08:33 Dose: 2 tab Tamsulosin HCl (Tamsulosin Hcl 0.4 Mg Capsule) 0.4 mg PO DAILY [facility] Last Admin: 10/29/23 08:34 Dose: 0.4 mg Thiamine HCl (Thiamine Hcl 100 Mg Tablet) 100 mg PO DAILY [facility] Last Admin: 10/29/23 08:35 Dose: 100 mg Vortioxetine (Vortioxetine Hydrobromide 10 Mg Tablet) 10 mg PO DAILY [facility] Last Admin: 10/29/23 08:35 Dose: 10 mg Allergies Allergies Allergy/AdvReac Type Severity Reaction Status Date / Time No Known Allergies Allergy Verified 08/27/23 10:27 Assessment & Plan Assessment & Plan (1) Bipolar II disorder: Status: Inactive Code(s): F31.81 - Bipolar II disorder (2) Delirium: Status: Resolved Code(s): R41.0 - Disorientation, unspecified (3) Depression, major, severe recurrence: Status: Acute Code(s): F33.2 - Major depressive disorder, recurrent severe without psychotic features (4) Hypertension: Status: Chronic Code(s): I10 - Essential (primary) hypertension (5) Odynophagia: Status: Acute Code(s): R13.10 - Dysphagia, unspecified (6) Major depressive disorder, recurrent severe without psychotic features: Status: Acute Code(s): F33.2 - Major depressive disorder, recurrent severe without psychotic features Plan The patient is an elderly female with a past history of mood disorder, anxiety personality disorder NOS who was brought into the hospital for altered mental status after a short course of as provide of for depression. 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 After being medically cleared she was transferring to this facility for psychiatric stabilization. Plan 1. Gather collateral information. 2. Continue Risperdal and antidepressants as started the medicine. 3. Regular blood work and reassessment with results. 4. 15 minute checks. 5. Speech and swallow evaluation for possible change of diet. 09/30/23 add wellbutrin 75 mg non serotonergic trintellix 5 mg remains with some PI but improved encourage phys rehab 10/01/23 Patient shows improved mood and energy ambulating better more active. Concerns regarding her short-term memory remembering names and fears regarding strength in her has which do seem somewhat bilaterally diminished and some numbness tingling seems to be improving cont trintellix wellbutrin 10/02/2023 Patient generally trending upwards generally less depressed but complicated by periods of paranoia and then apprehension depression and despair feels like she can trust staff and somehow they are intentionally playing with her in some way denies self-harm Recent confusional episode lasting a number of weeks question all serotonergic syndrome delirium question related to S ketamine Encourage out of bed ambulation PT consult increase in Risperdal had recently been on Latuda Vraylar and Rexulti without clear benefit would maintain current low-dose Trintellix 5 mg Wellbutrin recently started 75 mg 10/03: Continue current management and treatment plan. 10/04: Continue current management and treatment plan. Medication changes per primary team Dr. Shearer that knows the patient well. 10/05/2023 Increase Trintellix to 10 mg increase Wellbutrin to 100 mg consider change Risperdal to olanzapine or Seroquel strongly consider ECT patient having difficulty with trust 10/06/23 stop risperadol olanzapine hs and prn 10/07/23 Pt anxious depressed inc trintellix 10 mg inc olanzapine 2.5 am 5 hs wellbutrin 100 mg am 10/08/2023 The patient reports depression, we will continue with Trintellix and we will lower Zyprexa up to 2.5 p.o. q.h.s. and keep p.r.n. 2.5 Zyprexa as needed for psychosis. 10/09 keep same treatment 10/10 restart propanolol 10mg po TID for essential tremors. 10/11 continue tx. 10/12/23 hopeless helpless pos pi inc olanzapine suspicious anxious ? ect 10/13/2023 Patient hopeless helpless despondent severely depressed has not responded to multiple antidepressant trials and augmentation strategies. She appears delusional the depressed hopeless helpless with thoughts that she would be better off denies current plan or intent reviewed risks benefits alternatives with patient son and patient is asking for ECT no medical contraindications. She did has some significant amnesia will maintain right unilateral no more than 2 times a week try and maintain at 0.25 pulse width there seemed to be few alternatives at this point EKG unremarkable 10/14/2023 Patient seen with her see ECT note 10/15/2023 Encourage increase head of bed continue physical therapy recent head CT was unremarkable neuro consult question neuropathy question left footdrop will get hospitalist consult continue Trintellix Wellbutrin 10/16/2023 Increase Wellbutrin to 150 mg daily monitor for hypertension agitation worsening constipation continue Trental X ECT scheduled for 3 days Needs much support and courage mint 10/17/23 Continue regime and plan of care. 10/18/23 Continue regime and plan of care. 10/22/23 Pt seen in f/u cont ect consider inc 3 x wk ck l foot xr 10/23 continue same treatment ECT today. We are going to discuss the possibility of increasing ECT 3 times a week 10/24 continue same treatment 10/25 continue same treatment ECT tomorrow. 10/26 continue same treatment. 10/27 continue same treatment, ECT for next Sunday 10/28: no change to mgmt. stable. headt CT WNL. working with PT on gait/LLE weakness. 10/29 discontinue Zyprexa 2.5 in the morning. ECT for tomorrow rest the same Reason for continued inpatient stay Substantial Risk for: inability to function, rapid decompensation and med/psych decompensation Time Spent With Patient Time: Total time managing care of this patient today __20__ minutes.
--- NOTE | 2023-10-29 18:04 | PC.NURSE ---
Addendum entered by Vidya Humphrey RN 10/29/23 18:09: New diet is ground consistency. Original Note: New orders obtained to change diet to regular and to start compression therapy. Patient updated. Will start complression therapy in am as bilateral legs are swollen. patient ate ground chicken for supper and tolerated it well.
[2023-10-29 18:30] VITALS: BP 112/63; PULSE 77; RESP 18; TEMP 36.8; O2SAT 98
--- NOTE | 2023-10-29 18:54 | PM.EVENT ---
Event Note Date of Service: 10/29/23 Event Note: Pt is a 72-year-old female with a PMH significant for?HTN, essential tremor, GED, depression, and bipolar 2 disorder who seen for evaluation of lower leg edema. Pt is unsure when edema started, but says it must have been ongoing for at least ?the past few days?. Also complains of left toe pain she says occurred when she stubbed her toe while walking. Denies calf pain. Upon physical examination, 1-2+ bilateral pitting lower leg edema, left worse than right. No calf tenderness. CHF unlikely: denies SOB, orthopnea. Will get US venous Doppler lower extremities bilaterally to rule out DVT. In the meantime, pt should wear compression stockings during the day and elevated feet while laying in bed. Thank you for allowing us to participate in the care of this patient. Will continue to follow for now pending Doppler results. Time Spent With Patient Time: Total time managing care of this patient today ____ minutes.
[2023-10-29 20:46] VITALS: BP 147/67; PULSE 66; RESP 18; TEMP 36.1; O2SAT 97
[2023-10-29] MEDS: Ascorbic Acid 500 MG TABLET 2000 MG PO (20:53)
[2023-10-29] MEDS: hydrOXYzine HCL 25 MG TABLET PO (20:53)
[2023-10-29] MEDS: Melatonin 3 MG TABLET 6 MG PO (20:53)
[2023-10-30] VITALS (9 sets, daily range): BP systolic 137–186; BP diastolic 64–90; PULSE 74–95; RESP 12–18; TEMP 36.1–36.9; O2SAT 94–98
--- NOTE | 2023-10-30 08:28 | HO.PSYCHPN ---
Subjective Subjective Date of Service: 10/30/23 Reason For Visit: Severe depression Subjective Notes: Conditional Voluntary Interim History: The nursing staff reported the patient had being fully workout for DVT and came back negative, she had trazodone. She is now with ABIMBOLA stockings. She is scheduled for ECT today. On interview the patient reports that she is feeling a little dysphoric but hopeful that she will get better with ECT. Mental Status Exam Mental Status Exam Patient Appearance: Appropriate Patient Orientation: Person and Situation Level of Consciousness: Awake and Appropriate Patient Behavior: Guarded and Passive Mood Description: Depressed Affect Description: Constricted Patient Cognition Impaired: Yes Ability to Follow Directions: Good Speech Pattern: Clear Hallucinations: None Delusions: Not Present Thought Process: Linear Thought Content: positive for [place] and positive for Circumstantial Judgement: Fair Diagnostics Vital Signs (24Hr): Vital Signs - 24 hr 10/29/23 14:26 10/29/23 18:30 10/29/23 20:46 Temperature 98.3 F 97.0 F Pulse Rate 67 77 66 Respiratory Rate 18 18 Blood Pressure 92/50 L 112/63 147/67 H Pulse Oximetry 98 97 Oxygen Delivery Method Room Air Room Air 10/30/23 07:50 Temperature 98.4 F Pulse Rate 86 Respiratory Rate 18 Blood Pressure 137/64 Pulse Oximetry 96 Oxygen Delivery Method Room Air BMI result Body Mass Index 21.0 Labs 10/13/23 13:22 10/13/23 13:22 Imaging Radiology Impressions: ITS Impressions Head CT 10/08/23 16:26 IMPRESSION: No acute intracranial process seen. Ankle X-Ray 10/23/23 08:59 IMPRESSION: Unremarkable examination. Foot X-Ray 10/23/23 08:59 IMPRESSION: Unremarkable examination. Head CT 10/27/23 20:09 IMPRESSION: No acute intracranial pathology. This critical result was discussed with Dr. tyler Arce at 8:20 PM hours on 10/27/2023. It was ascertained that the content and urgency of the report was understood at the time of direct communication. Venous Duplex 10/29/23 20:04 IMPRESSION: No DVT demonstrated in the bilateral lower extremities. Medications Medications Current Medications Acetaminophen (Acetaminophen 325 Mg Tablet) 650 mg PO Q4H PRN PRN Reason: Pain, Severe (Pain Scale 7-10) Last Admin: 10/28/23 20:21 Dose: 650 mg Al Hydroxide/Mg Hydroxide (Magnesium Hydrox/Alum Hydrox 30 Ml Oral.Susp) 30 ml PO Q6H PRN PRN Reason: Heartburn/Nausea Amlodipine Besylate (Amlodipine Besylate 5 Mg Tablet) 5 mg PO DAILY [facility]; Protocol Last Admin: 10/29/23 08:36 Dose: 5 mg Ascorbic Acid (Ascorbic Acid 500 Mg Tablet) 2,000 mg PO BEDTIME [facility] Last Admin: 10/29/23 20:53 Dose: 2,000 mg Bisacodyl (Bisacodyl 5 Mg Tablet.Dr) 10 mg PO DAILY PRN PRN Reason: Constipation Brimonidine Tartrate (Brimonidine Tartrate 0.2% Oph 5 Ml Bottle) 1 drop EYE-BOTH BID [facility] Last Admin: 10/29/23 20:56 Dose: 1 drop Bupropion HCl (Bupropion Hcl Xl 150 Mg Tab.Er.24h) 150 mg PO DAILY [facility] Last Admin: 10/29/23 08:34 Dose: 150 mg Fluticasone Propionate (Fluticasone Propionate Nasal 16 Gm [place]) 1 spray NOSTRIL-B BID [facility] Last Admin: 10/29/23 20:56 Dose: 1 spray Hydroxyzine HCl (Hydroxyzine Hcl 25 Mg Tablet) 25 mg PO Q6H PRN PRN Reason: Anxiety Last Admin: 10/29/23 20:53 Dose: 25 mg Lisinopril (Lisinopril 5 Mg Tablet) 15 mg PO DAILY [facility]; Protocol Last Admin: 10/29/23 08:33 Dose: 15 mg Lorazepam (Lorazepam 0.5 Mg Tablet) 0.5 mg PO Q8H PRN PRN Reason: Anxiety Last Admin: 10/28/23 14:31 Dose: 0.5 mg Magnesium Hydroxide (Milk Of Magnesia 30 Ml Oral.Susp) 30 ml PO DAILY PRN PRN Reason: Constipation Melatonin (Melatonin 3 Mg Tablet) 6 mg PO BEDTIME PRN PRN Reason: Insomnia Last Admin: 10/29/23 20:53 Dose: 6 mg Multivitamins/Vitamin C (Multivitamin Tablet) 1 tab PO DAILY [facility] Last Admin: 10/29/23 08:36 Dose: 1 tab Olanzapine (Olanzapine 2.5 Mg Tablet) 2.5 mg PO BID PRN PRN Reason: anxiety/restlessness Last Admin: 10/12/23 17:19 Dose: 2.5 mg Olanzapine (Olanzapine 2.5 Mg Tablet) 2.5 mg PO BEDTIME [facility] Last Admin: 10/29/23 20:53 Dose: 2.5 mg Omeprazole (Omeprazole 20 Mg Capsule.Dr) 20 mg PO DAILY@0630 [facility] Last Admin: 10/29/23 05:58 Dose: 20 mg Ondansetron HCl (Ondansetron Odt 4 Mg Tab.Rapdis) 4 mg TRANSLINGU Q8H PRN PRN Reason: Nausea and Vomiting Last Admin: 10/14/23 09:40 Dose: 4 mg Polyethylene Glycol (Polyethylene Glycol 3350 17 Gm Powd.Pack) 17 gm PO DAILY PRN PRN Reason: constipation Propranolol HCl (Propranolol Hcl 10 Mg Tablet) 10 mg PO TID [facility]; Protocol Last Admin: 10/29/23 20:53 Dose: 10 mg Senna/Docusate Sodium (Sennosides/Docusate Sodium Tablet) 2 tab PO BID [facility] Last Admin: 10/29/23 20:53 Dose: 2 tab Tamsulosin HCl (Tamsulosin Hcl 0.4 Mg Capsule) 0.4 mg PO DAILY [facility] Last Admin: 10/29/23 08:34 Dose: 0.4 mg Thiamine HCl (Thiamine Hcl 100 Mg Tablet) 100 mg PO DAILY [facility] Last Admin: 10/29/23 08:35 Dose: 100 mg Vortioxetine (Vortioxetine Hydrobromide 10 Mg Tablet) 10 mg PO DAILY [facility] Last Admin: 10/29/23 08:35 Dose: 10 mg Allergies Allergies Allergy/AdvReac Type Severity Reaction Status Date / Time No Known Allergies Allergy Verified 08/27/23 10:27 Assessment & Plan Assessment & Plan (1) Bipolar II disorder: Status: Inactive Code(s): F31.81 - Bipolar II disorder (2) Delirium: Status: Resolved Code(s): R41.0 - Disorientation, unspecified (3) Depression, major, severe recurrence: Status: Acute Code(s): F33.2 - Major depressive disorder, recurrent severe without psychotic features (4) Hypertension: Status: Chronic Code(s): I10 - Essential (primary) hypertension (5) Odynophagia: Status: Acute Code(s): R13.10 - Dysphagia, unspecified (6) Major depressive disorder, recurrent severe without psychotic features: Status: Acute Code(s): F33.2 - Major depressive disorder, recurrent severe without psychotic features Plan The patient is an elderly female with a past history of mood disorder, anxiety personality disorder NOS who was brought into the hospital for altered mental status after a short course of as provide of for depression. 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 After being medically cleared she was transferring to this facility for psychiatric stabilization. Plan 1. Gather collateral information. 2. Continue Risperdal and antidepressants as started the medicine. 3. Regular blood work and reassessment with results. 4. 15 minute checks. 5. Speech and swallow evaluation for possible change of diet. 09/30/23 add wellbutrin 75 mg non serotonergic trintellix 5 mg remains with some PI but improved encourage phys rehab 10/01/23 Patient shows improved mood and energy ambulating better more active. Concerns regarding her short-term memory remembering names and fears regarding strength in her has which do seem somewhat bilaterally diminished and some numbness tingling seems to be improving cont trintellix wellbutrin 10/02/2023 Patient generally trending upwards generally less depressed but complicated by periods of paranoia and then apprehension depression and despair feels like she can trust staff and somehow they are intentionally playing with her in some way denies self-harm Recent confusional episode lasting a number of weeks question all serotonergic syndrome delirium question related to S ketamine Encourage out of bed ambulation PT consult increase in Risperdal had recently been on Latuda Vraylar and Rexulti without clear benefit would maintain current low-dose Trintellix 5 mg Wellbutrin recently started 75 mg 10/03: Continue current management and treatment plan. 10/04: Continue current management and treatment plan. Medication changes per primary team Dr. Shearer that knows the patient well. 10/05/2023 Increase Trintellix to 10 mg increase Wellbutrin to 100 mg consider change Risperdal to olanzapine or Seroquel strongly consider ECT patient having difficulty with trust 10/06/23 stop risperadol olanzapine hs and prn 10/07/23 Pt anxious depressed inc trintellix 10 mg inc olanzapine 2.5 am 5 hs wellbutrin 100 mg am 10/08/2023 The patient reports depression, we will continue with Trintellix and we will lower Zyprexa up to 2.5 p.o. q.h.s. and keep p.r.n. 2.5 Zyprexa as needed for psychosis. 10/09 keep same treatment 10/10 restart propanolol 10mg po TID for essential tremors. 10/11 continue tx. 10/12/23 hopeless helpless pos pi inc olanzapine suspicious anxious ? ect 10/13/2023 Patient hopeless helpless despondent severely depressed has not responded to multiple antidepressant trials and augmentation strategies. She appears delusional the depressed hopeless helpless with thoughts that she would be better off denies current plan or intent reviewed risks benefits alternatives with patient son and patient is asking for ECT no medical contraindications. She did has some significant amnesia will maintain right unilateral no more than 2 times a week try and maintain at 0.25 pulse width there seemed to be few alternatives at this point EKG unremarkable 10/14/2023 Patient seen with her see ECT note 10/15/2023 Encourage increase head of bed continue physical therapy recent head CT was unremarkable neuro consult question neuropathy question left footdrop will get hospitalist consult continue Trintellix Wellbutrin 10/16/2023 Increase Wellbutrin to 150 mg daily monitor for hypertension agitation worsening constipation continue Trental X ECT scheduled for 3 days Needs much support and courage mint 10/17/23 Continue regime and plan of care. 10/18/23 Continue regime and plan of care. 10/22/23 Pt seen in f/u cont ect consider inc 3 x wk ck l foot xr 10/23 continue same treatment ECT today. We are going to discuss the possibility of increasing ECT 3 times a week 10/24 continue same treatment 10/25 continue same treatment ECT tomorrow. 10/26 continue same treatment. 10/27 continue same treatment, ECT for next Sunday 10/28: no change to mgmt. stable. headt CT WNL. working with PT on gait/LLE weakness. 10/29 discontinue Zyprexa 2.5 in the morning. ECT for tomorrow rest the same 10/30 ECT today continue same treatment Reason for continued inpatient stay Substantial Risk for: inability to function, rapid decompensation and med/psych decompensation Time Spent With Patient Time: Total time managing care of this patient today __20__ minutes.
--- NOTE | 2023-10-30 11:21 | PC.NURSE ---
Patient , and son updated on all testing results and edema treatment today. Edema bilateral feet and ankles was much improved today. Negative for DVT. Hospitalist consult recommends TEDS and elevation of legs for decreased swelling.
--- NOTE | 2023-10-30 13:03 | HO.ANESPROP2 ---
HPI - Anesthesia Eval Consult details Narrative: 72 yo F presenting for ECT PMF Active Problems Active Problems: All Active Problems (Updated 10/16/23 @ 13:45 by Lucia Garcia MD) [place] (Acute) Major depressive disorder, recurrent severe without psychotic features (Acute) Personality disorder (Acute) Organic catatonia (Acute) Abnormal EKG (Acute) Odynophagia (Acute) Paranoia (Acute) Dysphagia (Acute) Serotonin syndrome (Acute) Ataxia (Acute) Tremors of nervous system (Acute) Major depression in full remission (Acute) Depression, major, severe recurrence (Acute) Memory deficit (Acute) ADHD (attention deficit hyperactivity disorder) (Acute) ZAC (generalized anxiety disorder) (Acute) Depression (Acute) Pre-op evaluation (Acute) Acute bacterial conjunctivitis of both eyes (Acute) Hypercalcemia (Acute) Hypothyroidism (Acute) Leukocytosis (Acute) Hypertension (Chronic) Past Medical History Medical History Urinary tract infection Depression Hypothyroidism ZAC (generalized anxiety disorder) Hypertension ADHD (attention deficit hyperactivity disorder) Functional capacity: independent ambulation Family History Family History Other No pertinent family history Family history of problems with anesthesia: No Surgical History Surgical History H/O thumb surgery H/O cone biopsy of cervix History of Problems with Anesthesia: No Social History Social History Household Members: Spouse Household Members Other:: And two cats. Housing: House Do you presently have visiting nurse or other home services: No Unable to assess alcohol history related to: Unknown Alcohol intake: never Patient Tobacco Use Status: Former Tobacco user Quit Date: 20 years agp Tobacco use type: Cigarette Years Smoked: 20 Smoked in Last 30 Days: No e-Cigarette/Vaping Use: Never Used Patient Interested in Nicotine Replacement: No (n/a) Patient Given Instructions on How to Stop Smoking: No (n/a) Second Hand Smoke Exposure: No Use of substances other than those prescribed or required for medical reasons: Yes Substance Use Type: Former Substance User and Marijuana Last Used Substance Other:: 2 years Currently Displaying Signs/Symptoms of Drug Intoxication Withdrawal: No Any prior treatment program specific to substance use: No Have you been hit, kicked, punched, or otherwise hurt by someone within the past year? If so, by whom?: No Do you feel safe in your current relationship?: Yes Is there a partner from a previous relationship who is making you feel unsafe now?: No Are you made to feel afraid or neglected: No Spiritual Healthcare Practices: no Jehovah'S Witness Healthcare Practices: no Cultural Healthcare Practices: no Are you DNR?: No Advance Directives: No Advance Directives Information Provided: No (declined) Advance Directives on File: No Do you have thoughts of harming others: None Do you have a plan to hurt others: No Plan Recently lost weight without trying: No How much weight loss: Unsure Eating poorly because of decreased appetite: Yes Nutrition screen score: 3 Patient : No : No Poor oral hygiene: No service: No Sexual orientation: Straight/Heterosexual Meds Allergies Allergy/AdvReac Type Severity Reaction Status Date / Time No Known Allergies Allergy Verified 08/27/23 10:27 Active Medications: Current Medications Acetaminophen (Acetaminophen 325 Mg Tablet) 650 mg PO Q4H PRN PRN Reason: Pain, Severe (Pain Scale 7-10) Last Admin: 10/28/23 20:21 Dose: 650 mg Al Hydroxide/Mg Hydroxide (Magnesium Hydrox/Alum Hydrox 30 Ml Oral.Susp) 30 ml PO Q6H PRN PRN Reason: Heartburn/Nausea Amlodipine Besylate (Amlodipine Besylate 5 Mg Tablet) 5 mg PO DAILY [facility]; Protocol Last Admin: 10/30/23 11:37 Dose: Not Given Ascorbic Acid (Ascorbic Acid 500 Mg Tablet) 2,000 mg PO BEDTIME [facility] Last Admin: 10/29/23 20:53 Dose: 2,000 mg Bisacodyl (Bisacodyl 5 Mg Tablet.Dr) 10 mg PO DAILY PRN PRN Reason: Constipation Brimonidine Tartrate (Brimonidine Tartrate 0.2% Oph 5 Ml Bottle) 1 drop EYE-BOTH BID [facility] Last Admin: 10/30/23 11:25 Dose: Not Given Bupropion HCl (Bupropion Hcl Xl 150 Mg Tab.Er.24h) 150 mg PO DAILY [facility] Last Admin: 10/30/23 11:25 Dose: Not Given Fluticasone Propionate (Fluticasone Propionate Nasal 16 Gm [place]) 1 spray NOSTRIL-B BID [facility] Last Admin: 10/30/23 11:37 Dose: Not Given Hydroxyzine HCl (Hydroxyzine Hcl 25 Mg Tablet) 25 mg PO Q6H PRN PRN Reason: Anxiety Last Admin: 10/29/23 20:53 Dose: 25 mg Lisinopril (Lisinopril 5 Mg Tablet) 15 mg PO DAILY [facility]; Protocol Last Admin: 10/30/23 11:37 Dose: Not Given Lorazepam (Lorazepam 0.5 Mg Tablet) 0.5 mg PO Q8H PRN PRN Reason: Anxiety Last Admin: 10/28/23 14:31 Dose: 0.5 mg Magnesium Hydroxide (Milk Of Magnesia 30 Ml Oral.Susp) 30 ml PO DAILY PRN PRN Reason: Constipation Melatonin (Melatonin 3 Mg Tablet) 6 mg PO BEDTIME PRN PRN Reason: Insomnia Last Admin: 10/29/23 20:53 Dose: 6 mg Multivitamins/Vitamin C (Multivitamin Tablet) 1 tab PO DAILY [facility] Last Admin: 10/30/23 11:37 Dose: Not Given Olanzapine (Olanzapine 2.5 Mg Tablet) 2.5 mg PO BID PRN PRN Reason: anxiety/restlessness Last Admin: 10/12/23 17:19 Dose: 2.5 mg Olanzapine (Olanzapine 2.5 Mg Tablet) 2.5 mg PO BEDTIME [facility] Last Admin: 10/29/23 20:53 Dose: 2.5 mg Omeprazole (Omeprazole 20 Mg Capsule.Dr) 20 mg PO DAILY@0630 [facility] Last Admin: 10/30/23 11:24 Dose: Not Given Ondansetron HCl (Ondansetron Odt 4 Mg Tab.Rapdis) 4 mg TRANSLINGU Q8H PRN PRN Reason: Nausea and Vomiting Last Admin: 10/14/23 09:40 Dose: 4 mg Polyethylene Glycol (Polyethylene Glycol 3350 17 Gm Powd.Pack) 17 gm PO DAILY PRN PRN Reason: constipation Propranolol HCl (Propranolol Hcl 10 Mg Tablet) 10 mg PO TID [facility]; Protocol Last Admin: 10/30/23 11:38 Dose: Not Given Senna/Docusate Sodium (Sennosides/Docusate Sodium Tablet) 2 tab PO BID [facility] Last Admin: 10/30/23 11:38 Dose: Not Given Tamsulosin HCl (Tamsulosin Hcl 0.4 Mg Capsule) 0.4 mg PO DAILY [facility] Last Admin: 10/30/23 11:38 Dose: Not Given Thiamine HCl (Thiamine Hcl 100 Mg Tablet) 100 mg PO DAILY [facility] Last Admin: 10/30/23 11:38 Dose: Not Given Vortioxetine (Vortioxetine Hydrobromide 10 Mg Tablet) 10 mg PO DAILY [facility] Last Admin: 10/30/23 11:38 Dose: Not Given Home Medications Medication Instructions Recorded Confirmed Last Taken Type amlodipine 5 mg tablet 10 mg PO DAILY 10/23/22 08/27/23 10/23/22 History fluticasone propionate 50 1 spray intranasal BID 08/27/23 08/27/23 Unknown History mcg/actuation nasal spray,suspension propranolol 20 mg tablet 20 mg PO BID 08/27/23 08/27/23 Unknown History Exam Exam Date and Time: October 30, 2023 1300 Height,Weight and Vital Signs: Height 5 ft 1 in Weight 50.3 kg Last Vital Signs Temp 98.2 F 10/30/23 12:39 Pulse 74 10/30/23 12:39 Resp 16 10/30/23 12:39 BP 170/80 H 10/30/23 12:39 Pulse Ox 98 10/30/23 12:39 O2 Del Method Room Air 10/30/23 12:39 O2 Flow Rate 95 10/27/23 17:00 Pertinent Lab Results Pertinent Lab Results: Laboratory Tests 09/28/23 09/29/23 10/13/23 14:09 07:53 13:22 WBC 8.0 RBC 3.92 L Hgb 11.4 L Hct 36.0 L MCV 91.8 MCH 29.1 MCHC 31.7 RDW 14.1 Plt Count 290 MPV 9.5 Immature Gran % (Auto) 0.5 H Neut % (Auto) 74.2 H Lymph % (Auto) 14.1 L Emanuel % (Auto) 8.4 Eos % (Auto) 2.4 Baso % (Auto) 0.4 Lymph # (Auto) 1.1 L Emanuel # (Auto) 0.7 Eos # (Auto) 0.2 Baso # (Auto) 0.0 Abs Immat Gran (auto) 0.04 H Absolute Neuts (auto) 5.9 Absolute Nucleated RBC 0.000 Nucleated RBC % (auto) 0.0 Sodium 144 139 Potassium 4.0 4.9 D Chloride 105 105 Carbon Dioxide 31 H 30 H Anion Gap 12 9 L BUN 14 16 Creatinine 0.82 0.76 1.03 Estim Creat Clear Calc TNP 48.5 36.6 Estimated GFR > 60 > 60 53 Random Glucose 115 Fasting Glucose 133 H Calcium 10.6 H D 9.6 D Total Bilirubin 0.3 0.2 AST 96 H 21 ALT 178 H 35 H Alkaline Phosphatase 129 H 86 Total Protein 6.2 L 5.5 L Albumin 3.4 L 3.1 L Triglycerides 131 Cholesterol 208 H LDL Cholesterol, Calc 140 H HDL Cholesterol 42 Influenza Type A (PCR) Influenza Type B (PCR) RSV RNA Qual (PCR) SARS-CoV-2 RNA (RT-PCR) 10/27/23 19:30 WBC RBC Hgb Hct MCV MCH MCHC RDW Plt Count MPV Immature Gran % (Auto) Neut % (Auto) Lymph % (Auto) Emanuel % (Auto) Eos % (Auto) Baso % (Auto) Lymph # (Auto) Emanuel # (Auto) Eos # (Auto) Baso # (Auto) Abs Immat Gran (auto) Absolute Neuts (auto) Absolute Nucleated RBC Nucleated RBC % (auto) Sodium Potassium Chloride Carbon Dioxide Anion Gap BUN Creatinine Estim Creat Clear Calc Estimated GFR Random Glucose Fasting Glucose Calcium Total Bilirubin AST ALT Alkaline Phosphatase Total Protein Albumin Triglycerides Cholesterol LDL Cholesterol, Calc HDL Cholesterol Influenza Type A (PCR) NEGATIVE Influenza Type B (PCR) NEGATIVE RSV RNA Qual (PCR) NEGATIVE SARS-CoV-2 RNA (RT-PCR) NEGATIVE Airway Mallampati Class: I TM Dist: <=3cm Neck ROM: Full Loose/Missing/Broken Teeth: No Heart: S1S2 Lungs: CTAB Assessment and Plan Assessment Anesthesia Assessment: Anesthesia Plan Discussed and Chart Reviewed Final Anesthetic Review Family History of Problems with Anesthesia: No History of Problems with Anesthesia: No NPO: Yes ASA Class: III Final Preanesthetic Review: No Changes in Pt Med Stat, Meds/Allgs Chart Reviewed, Consent Obtained/Reviewed and Anes Risks/Benef Reviewed Patient Risk: Low Procedure Risk: Low Anesthetic Plan Anesthetic Plan: GA and Agree w/ Assess. and Plan Disposition: Standard PACU
--- NOTE | 2023-10-30 13:06 | MHC.SHP ---
Pre-Procedural Eval Section A Date of Service: 10/30/23 The patient is an INPATIENT: Yes Changes since office visit: No Cold of Flu in the past 2 weeks, No New Medical Problems, No Changes in Medication and No Patient answered all questions The History & Physical has been completed within 30 days and I have reviewed it.: Yes Section B Chief Complaint: Severe depression Allergies: Allergies Allergy/AdvReac Type Severity Reaction Status Date / Time No Known Allergies Allergy Verified 08/27/23 10:27 Plan I have reviewed the history and physical and performed a pertinent physical examination on my patient. No changes have occurred unless specified. Time Spent With Patient Time: Total time managing care of this patient today ____ minutes.
--- NOTE | 2023-10-30 13:07 | PC.NURSE ---
All meds held today for ECT. NPO since midnight. Up to PACU at 1230 today via wheelchair.
--- NOTE | 2023-10-30 13:25 | HO.ECTPROC ---
ECT Procedure Note Diagnosis/Treatment Date of Service: 10/30/23 Diagnosis: Bipolar disorder Previous ECT Date: 10/26/23 Current Treatment Number: 5 Treatment: Series Interval Clinical Notes: The patient reports dysphoria but we have seen brighter mood. No side effects with previous ECT, she didn't have nausea after having escopolamine pathc. ECT done as usual, no complications, woke up well. Time: Total time managing care of this patient today _30___ minutes. ECT Settings Device: THYMATRON DGx Electrode Placement: Right Unilateral Program/Pulse Width: 0.25 Energy Percent: 90 Seizure Duration By EEG (in seconds): 42 By Motor Observation (in seconds): 18 Medications Administration General Anesthetic: Methohexital (80) Muscle Relaxant: Succinylcholine (80) Ancillary Medications Analgesics: Torodol - Pre ECT Anti-emetics: Zofran - Pre ECT Miscillaneous Medications: Propofol Airway Management Airway Management: Bag Mask Ventilation Treatment Recommendations No Changes Recommended: No change Pt Tolerated Procedure w/o Issue: Yes
--- NOTE | 2023-10-30 15:52 | PC.NURSE ---
Patient returned from ECT. VSS. No complaints offered.
[2023-10-30] MEDS: Propranolol HCL 10 MG TABLET PO ×2 (15:57→20:32)
[2023-10-30] MEDS: Brimonidine Tartrate 0.2% Oph 5 ML BOTTLE 1 DROP EYE-BOTH (20:30)
[2023-10-30] MEDS: Fluticasone Propionate Nasal 16 GM SPRAY 1 SPRAY NOSTRIL-B (20:30)
[2023-10-30] MEDS: Sennosides/Docusate Sodium TABLET 2 TAB PO (20:32)
[2023-10-30] MEDS: Ascorbic Acid 500 MG TABLET 2000 MG PO (20:32)
[2023-10-30] MEDS: hydrOXYzine HCL 25 MG TABLET PO (20:33)
[2023-10-30] MEDS: OLANZapine 2.5 MG TABLET PO (20:33)
[2023-10-31] MEDS: Omeprazole 20 MG CAPSULE.DR PO (05:47)
[2023-10-31 06:00] VITALS: BP 153/75; PULSE 101; RESP 18; TEMP 37.4; O2SAT 93
[2023-10-31] MEDS: Acetaminophen 325 MG TABLET 650 MG PO (08:20)
[2023-10-31] MEDS: Fluticasone Propionate Nasal 16 GM SPRAY 1 SPRAY NOSTRIL-B ×2 (08:20→20:32)
[2023-10-31] MEDS: Brimonidine Tartrate 0.2% Oph 5 ML BOTTLE 1 DROP EYE-BOTH ×2 (08:20→20:32)
[2023-10-31] MEDS: amLODIPine Besylate 5 MG TABLET PO (08:20)
[2023-10-31] MEDS: Tamsulosin HCL 0.4 MG CAPSULE PO (08:21)
[2023-10-31] MEDS: Multivitamin TABLET 1 TAB PO (08:21)
[2023-10-31] MEDS: buPROPion HCl XL 150 MG TAB.ER.24H PO (08:21)
[2023-10-31] MEDS: Propranolol HCL 10 MG TABLET PO ×3 (08:21→20:30)
[2023-10-31] MEDS: Vortioxetine Hydrobromide 10 MG TABLET PO (08:21)
[2023-10-31] MEDS: Thiamine HCL 100 MG TABLET PO (08:21)
[2023-10-31] MEDS: Sennosides/Docusate Sodium TABLET 2 TAB PO ×2 (08:21→20:29)
[2023-10-31] MEDS: lisinopriL 5 MG TABLET 15 MG PO (08:21)
--- NOTE | 2023-10-31 17:07 | HO.PSYCHPN ---
Subjective Subjective Date of Service: 10/31/23 Reason For Visit: Severe depression Interim History: The nursing staff reported the patient had no new complaints. She reports she has been doing well with ECT. She offers no complaints today. On interview the patient reports that she is feeling a little dysphoric but hopeful that she will get better with ECT. Review of Systems Review of Systems No recent fall or injury. Yes all other systems are reviewed and are negative and Unobtainable due to mental status Mental Status Exam Mental Status Exam Narrative: Appearance: wearing hospital gown, anxious withdrawn but fearful and guarded she is alert and oriented passive si /no HI. Pt reports feeling weak. Appears internally preoccupied feels people avoiding her pos pi Bilat action tremors. Patient in deep despair hopeless helpless despondent she is asking for ECT she does appear to understand risks benefits alternatives which have been reviewed Patient Appearance: Appropriate Patient Orientation: Person and Situation Level of Consciousness: Awake and Appropriate Patient Behavior: Guarded and Passive Mood Description: Depressed Affect Description: Constricted Patient Cognition Impaired: Yes Ability to Follow Directions: Good Speech Pattern: Clear Memory Description: Recent Impaired and Working Impaired Diagnostics Vital Signs (24Hr): Vital Signs - 24 hr 10/30/23 18:00 10/31/23 06:00 Temperature 97.2 F 99.3 F Pulse Rate 92 101 H Respiratory Rate 18 18 Blood Pressure 142/67 H 153/75 H Pulse Oximetry 94 93 Oxygen Delivery Method Room Air Room Air BMI result Body Mass Index 21.0 Labs 10/13/23 13:22 10/13/23 13:22 Imaging Radiology Impressions: ITS Impressions Head CT 10/08/23 16:26 IMPRESSION: No acute intracranial process seen. Ankle X-Ray 10/23/23 08:59 IMPRESSION: Unremarkable examination. Foot X-Ray 10/23/23 08:59 IMPRESSION: Unremarkable examination. Head CT 10/27/23 20:09 IMPRESSION: No acute intracranial pathology. This critical result was discussed with Dr. tyler Arce at 8:20 PM hours on 10/27/2023. It was ascertained that the content and urgency of the report was understood at the time of direct communication. Venous Duplex 10/29/23 20:04 IMPRESSION: No DVT demonstrated in the bilateral lower extremities. Medications Medications Current Medications Acetaminophen (Acetaminophen 325 Mg Tablet) 650 mg PO Q4H PRN PRN Reason: Pain, Severe (Pain Scale 7-10) Last Admin: 10/31/23 08:20 Dose: 650 mg Al Hydroxide/Mg Hydroxide (Magnesium Hydrox/Alum Hydrox 30 Ml Oral.Susp) 30 ml PO Q6H PRN PRN Reason: Heartburn/Nausea Amlodipine Besylate (Amlodipine Besylate 5 Mg Tablet) 5 mg PO DAILY [facility]; Protocol Last Admin: 10/31/23 08:20 Dose: 5 mg Ascorbic Acid (Ascorbic Acid 500 Mg Tablet) 2,000 mg PO BEDTIME [facility] Last Admin: 10/30/23 20:32 Dose: 2,000 mg Bisacodyl (Bisacodyl 5 Mg Tablet.Dr) 10 mg PO DAILY PRN PRN Reason: Constipation Brimonidine Tartrate (Brimonidine Tartrate 0.2% Oph 5 Ml Bottle) 1 drop EYE-BOTH BID [facility] Last Admin: 10/31/23 08:20 Dose: 1 drop Bupropion HCl (Bupropion Hcl Xl 150 Mg Tab.Er.24h) 150 mg PO DAILY [facility] Last Admin: 10/31/23 08:21 Dose: 150 mg Fluticasone Propionate (Fluticasone Propionate Nasal 16 Gm [place]) 1 spray NOSTRIL-B BID [facility] Last Admin: 10/31/23 08:20 Dose: 1 spray Hydroxyzine HCl (Hydroxyzine Hcl 25 Mg Tablet) 25 mg PO Q6H PRN PRN Reason: Anxiety Last Admin: 10/30/23 20:33 Dose: 25 mg Lisinopril (Lisinopril 5 Mg Tablet) 15 mg PO DAILY [facility]; Protocol Last Admin: 10/31/23 08:21 Dose: 15 mg Lorazepam (Lorazepam 0.5 Mg Tablet) 0.5 mg PO Q8H PRN PRN Reason: Anxiety Last Admin: 10/28/23 14:31 Dose: 0.5 mg Magnesium Hydroxide (Milk Of Magnesia 30 Ml Oral.Susp) 30 ml PO DAILY PRN PRN Reason: Constipation Melatonin (Melatonin 3 Mg Tablet) 6 mg PO BEDTIME PRN PRN Reason: Insomnia Last Admin: 10/29/23 20:53 Dose: 6 mg Multivitamins/Vitamin C (Multivitamin Tablet) 1 tab PO DAILY [facility] Last Admin: 10/31/23 08:21 Dose: 1 tab Olanzapine (Olanzapine 2.5 Mg Tablet) 2.5 mg PO BID PRN PRN Reason: anxiety/restlessness Last Admin: 10/12/23 17:19 Dose: 2.5 mg Olanzapine (Olanzapine 2.5 Mg Tablet) 2.5 mg PO BEDTIME [facility] Last Admin: 10/30/23 20:33 Dose: 2.5 mg Omeprazole (Omeprazole 20 Mg Capsule.Dr) 20 mg PO DAILY@0630 [facility] Last Admin: 10/31/23 05:47 Dose: 20 mg Ondansetron HCl (Ondansetron Odt 4 Mg Tab.Rapdis) 4 mg TRANSLINGU Q8H PRN PRN Reason: Nausea and Vomiting Last Admin: 10/14/23 09:40 Dose: 4 mg Polyethylene Glycol (Polyethylene Glycol 3350 17 Gm Powd.Pack) 17 gm PO DAILY PRN PRN Reason: constipation Propranolol HCl (Propranolol Hcl 10 Mg Tablet) 10 mg PO TID [facility]; Protocol Last Admin: 10/31/23 15:58 Dose: 10 mg Senna/Docusate Sodium (Sennosides/Docusate Sodium Tablet) 2 tab PO BID [facility] Last Admin: 10/31/23 08:21 Dose: 2 tab Tamsulosin HCl (Tamsulosin Hcl 0.4 Mg Capsule) 0.4 mg PO DAILY [facility] Last Admin: 10/31/23 08:21 Dose: 0.4 mg Thiamine HCl (Thiamine Hcl 100 Mg Tablet) 100 mg PO DAILY [facility] Last Admin: 10/31/23 08:21 Dose: 100 mg Vortioxetine (Vortioxetine Hydrobromide 10 Mg Tablet) 10 mg PO DAILY [facility] Last Admin: 10/31/23 08:21 Dose: 10 mg Allergies Allergies Allergy/AdvReac Type Severity Reaction Status Date / Time No Known Allergies Allergy Verified 08/27/23 10:27 Assessment & Plan Assessment & Plan (1) Bipolar II disorder: Status: Inactive Code(s): F31.81 - Bipolar II disorder (2) Delirium: Status: Resolved Code(s): R41.0 - Disorientation, unspecified (3) Depression, major, severe recurrence: Status: Acute Code(s): F33.2 - Major depressive disorder, recurrent severe without psychotic features (4) Hypertension: Status: Chronic Code(s): I10 - Essential (primary) hypertension (5) Odynophagia: Status: Acute Code(s): R13.10 - Dysphagia, unspecified (6) Major depressive disorder, recurrent severe without psychotic features: Status: Acute Code(s): F33.2 - Major depressive disorder, recurrent severe without psychotic features Plan The patient is an elderly female with a past history of mood disorder, anxiety personality disorder NOS who was brought into the hospital for altered mental status after a short course of as provide of for depression. 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 After being medically cleared she was transferring to this facility for psychiatric stabilization. Plan 1. Gather collateral information. 2. Continue Risperdal and antidepressants as started the medicine. 3. Regular blood work and reassessment with results. 4. 15 minute checks. 5. Speech and swallow evaluation for possible change of diet. 09/30/23 add wellbutrin 75 mg non serotonergic trintellix 5 mg remains with some PI but improved encourage phys rehab 10/01/23 Patient shows improved mood and energy ambulating better more active. Concerns regarding her short-term memory remembering names and fears regarding strength in her has which do seem somewhat bilaterally diminished and some numbness tingling seems to be improving cont trintellix wellbutrin 10/02/2023 Patient generally trending upwards generally less depressed but complicated by periods of paranoia and then apprehension depression and despair feels like she can trust staff and somehow they are intentionally playing with her in some way denies self-harm Recent confusional episode lasting a number of weeks question all serotonergic syndrome delirium question related to S ketamine Encourage out of bed ambulation PT consult increase in Risperdal had recently been on Latuda Vraylar and Rexulti without clear benefit would maintain current low-dose Trintellix 5 mg Wellbutrin recently started 75 mg 10/03: Continue current management and treatment plan. 10/04: Continue current management and treatment plan. Medication changes per primary team Dr. Shearer that knows the patient well. 10/05/2023 Increase Trintellix to 10 mg increase Wellbutrin to 100 mg consider change Risperdal to olanzapine or Seroquel strongly consider ECT patient having difficulty with trust 10/06/23 stop risperadol olanzapine hs and prn 10/07/23 Pt anxious depressed inc trintellix 10 mg inc olanzapine 2.5 am 5 hs wellbutrin 100 mg am 10/08/2023 The patient reports depression, we will continue with Trintellix and we will lower Zyprexa up to 2.5 p.o. q.h.s. and keep p.r.n. 2.5 Zyprexa as needed for psychosis. 10/09 keep same treatment 10/10 restart propanolol 10mg po TID for essential tremors. 10/11 continue tx. 10/12/23 hopeless helpless pos pi inc olanzapine suspicious anxious ? ect 10/13/2023 Patient hopeless helpless despondent severely depressed has not responded to multiple antidepressant trials and augmentation strategies. She appears delusional the depressed hopeless helpless with thoughts that she would be better off denies current plan or intent reviewed risks benefits alternatives with patient son and patient is asking for ECT no medical contraindications. She did has some significant amnesia will maintain right unilateral no more than 2 times a week try and maintain at 0.25 pulse width there seemed to be few alternatives at this point EKG unremarkable 10/14/2023 Patient seen with her see ECT note 10/15/2023 Encourage increase head of bed continue physical therapy recent head CT was unremarkable neuro consult question neuropathy question left footdrop will get hospitalist consult continue Trintellix Wellbutrin 10/16/2023 Increase Wellbutrin to 150 mg daily monitor for hypertension agitation worsening constipation continue Trental X ECT scheduled for 3 days Needs much support and courage mint 10/17/23 Continue regime and plan of care. 10/18/23 Continue regime and plan of care. 10/22/23 Pt seen in f/u cont ect consider inc 3 x wk ck l foot xr 10/23 continue same treatment ECT today. We are going to discuss the possibility of increasing ECT 3 times a week 10/24 continue same treatment 10/25 continue same treatment ECT tomorrow. 10/26 continue same treatment. 10/27 continue same treatment, ECT for next Sunday 10/28: no change to mgmt. stable. headt CT WNL. working with PT on gait/LLE weakness. 10/29 discontinue Zyprexa 2.5 in the morning. ECT for tomorrow rest the same 10/30 ECT today continue same treatment 10/31: Continue ECT per primary team Reason for continued inpatient stay Substantial Risk for: inability to function, rapid decompensation and med/psych decompensation Time Spent With Patient Time: Total time managing care of this patient today ____ minutes.
[2023-10-31 18:00] VITALS: BP 146/73; PULSE 68; RESP 16; TEMP 36.6; O2SAT 94
[2023-10-31] MEDS: Ascorbic Acid 500 MG TABLET 2000 MG PO (20:27)
[2023-10-31] MEDS: Melatonin 3 MG TABLET 6 MG PO (20:28)
[2023-10-31] MEDS: OLANZapine 2.5 MG TABLET PO (20:29)
[2023-11-01] MEDS: Omeprazole 20 MG CAPSULE.DR PO (06:15)
[2023-11-01 07:49] VITALS: BP 145/80; PULSE 89; RESP 18; TEMP 37; O2SAT 94
[2023-11-01] MEDS: amLODIPine Besylate 5 MG TABLET PO (07:50)
[2023-11-01] MEDS: lisinopriL 5 MG TABLET 15 MG PO (07:50)
[2023-11-01] MEDS: Sennosides/Docusate Sodium TABLET 2 TAB PO ×2 (07:50→21:06)
[2023-11-01] MEDS: Multivitamin TABLET 1 TAB PO (07:50)
[2023-11-01] MEDS: Propranolol HCL 10 MG TABLET PO ×3 (07:50→21:05)
[2023-11-01] MEDS: Thiamine HCL 100 MG TABLET PO (07:50)
[2023-11-01] MEDS: Vortioxetine Hydrobromide 10 MG TABLET PO (07:50)
[2023-11-01] MEDS: Tamsulosin HCL 0.4 MG CAPSULE PO (07:50)
[2023-11-01] MEDS: Fluticasone Propionate Nasal 16 GM SPRAY 1 SPRAY NOSTRIL-B ×2 (07:51→21:04)
[2023-11-01] MEDS: buPROPion HCl XL 150 MG TAB.ER.24H PO (07:51)
[2023-11-01] MEDS: Brimonidine Tartrate 0.2% Oph 5 ML BOTTLE 1 DROP EYE-BOTH ×2 (07:51→21:04)
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
[2023-11-01 15:10] VITALS: BP 119/68
[2023-11-01 18:00] VITALS: BP 143/67; PULSE 71; RESP 18; TEMP 36.8; O2SAT 94
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
[2023-11-01] MEDS: Ascorbic Acid 500 MG TABLET 2000 MG PO (21:04)
[2023-11-01] MEDS: OLANZapine 2.5 MG TABLET PO (21:05)
[2023-11-01] MEDS: Acetaminophen 325 MG TABLET 650 MG PO (21:34)
[2023-11-02] VITALS (10 sets, daily range): BP systolic 135–181; BP diastolic 69–80; PULSE 71–97; RESP 16–20; TEMP 36.2–36.9; O2SAT 94–99
[2023-11-02] MEDS: Omeprazole 20 MG CAPSULE.DR PO (05:44)
--- NOTE | 2023-11-02 12:00 | P.CONAN_ITS ---
HPI - Anesthesia Eval Consult details Narrative: Major Depression Disorder without psychotic features [facility] Active Problems Active Problems: All Active Problems (Updated 10/16/23 @ 13:45 by Lucia Garcia MD) Footdrop (Acute) Major depressive disorder, recurrent severe without psychotic features (Acute) Personality disorder (Acute) Organic catatonia (Acute) Abnormal EKG (Acute) Odynophagia (Acute) Paranoia (Acute) Dysphagia (Acute) Serotonin syndrome (Acute) Ataxia (Acute) Tremors of nervous system (Acute) Major depression in full remission (Acute) Depression, major, severe recurrence (Acute) Memory deficit (Acute) ADHD (attention deficit hyperactivity disorder) (Acute) ZAC (generalized anxiety disorder) (Acute) Depression (Acute) Pre-op evaluation (Acute) Acute bacterial conjunctivitis of both eyes (Acute) Hypercalcemia (Acute) Hypothyroidism (Acute) Leukocytosis (Acute) Hypertension (Chronic) Past Medical History Medical History Urinary tract infection Depression Hypothyroidism ZAC (generalized anxiety disorder) Hypertension ADHD (attention deficit hyperactivity disorder) Functional capacity: independent ambulation Family History Family History Other No pertinent family history Family history of problems with anesthesia: No Surgical History Surgical History H/O thumb surgery H/O cone biopsy of cervix History of Problems with Anesthesia: No Social History Social History Household Members: Spouse Household Members Other:: And two cats. Housing: House Do you presently have visiting nurse or other home services: No Unable to assess alcohol history related to: Unknown Alcohol intake: never Patient Tobacco Use Status: Former Tobacco user Quit Date: 20 years [facility] Tobacco use type: Cigarette Years Smoked: 20 Smoked in Last 30 Days: No e-Cigarette/Vaping Use: Never Used Patient Interested in Nicotine Replacement: No (n/a) Patient Given Instructions on How to Stop Smoking: No (n/a) Second Hand Smoke Exposure: No Use of substances other than those prescribed or required for medical reasons: Yes Substance Use Type: Former Substance User and Marijuana Last Used Substance Other:: 2 years Currently Displaying Signs/Symptoms of Drug Intoxication Withdrawal: No Any prior treatment program specific to substance use: No Have you been hit, kicked, punched, or otherwise hurt by someone within the past year? If so, by whom?: No Do you feel safe in your current relationship?: Yes Is there a partner from a previous relationship who is making you feel unsafe now?: No Are you made to feel afraid or neglected: No Spiritual Healthcare Practices: no Anabaptism Healthcare Practices: no Cultural Healthcare Practices: no Are you DNR?: No Advance Directives: No Advance Directives Information Provided: No (declined) Advance Directives on File: No Do you have thoughts of harming others: None Do you have a plan to hurt others: No Plan Recently lost weight without trying: No How much weight loss: Unsure Eating poorly because of decreased appetite: Yes Nutrition screen score: 3 Patient : No : No Poor oral hygiene: No service: No Sexual orientation: Straight/Heterosexual Meds Allergies Allergy/AdvReac Type Severity Reaction Status Date / Time No Known Allergies Allergy Verified 08/27/23 10:27 Active Medications: Current Medications Acetaminophen (Acetaminophen 325 Mg Tablet) 650 mg PO Q4H PRN PRN Reason: Pain, Severe (Pain Scale 7-10) Last Admin: 11/01/23 21:34 Dose: 650 mg Al Hydroxide/Mg Hydroxide (Magnesium Hydrox/Alum Hydrox 30 Ml Oral.Susp) 30 ml PO Q6H PRN PRN Reason: Heartburn/Nausea Amlodipine Besylate (Amlodipine Besylate 5 Mg Tablet) 5 mg PO DAILY [facility]; Protocol Last Admin: 11/02/23 08:55 Dose: Not Given Ascorbic Acid (Ascorbic Acid 500 Mg Tablet) 2,000 mg PO BEDTIME [facility] Last Admin: 11/01/23 21:04 Dose: 2,000 mg Bisacodyl (Bisacodyl 5 Mg Tablet.Dr) 10 mg PO DAILY PRN PRN Reason: Constipation Brimonidine Tartrate (Brimonidine Tartrate 0.2% Oph 5 Ml Bottle) 1 drop EYE- BOTH BID [facility] Last Admin: 11/02/23 08:55 Dose: Not Given Bupropion HCl (Bupropion Hcl Xl 150 Mg Tab.Er.24h) 150 mg PO DAILY [facility] Last Admin: 11/02/23 08:56 Dose: Not Given Fluticasone Propionate (Fluticasone Propionate Nasal 16 Gm [place]) 1 spray NOSTRIL-B BID [facility] Last Admin: 11/02/23 08:56 Dose: Not Given Hydroxyzine HCl (Hydroxyzine Hcl 25 Mg Tablet) 25 mg PO Q6H PRN PRN Reason: Anxiety Last Admin: 10/30/23 20:33 Dose: 25 mg Lisinopril (Lisinopril 5 Mg Tablet) 15 mg PO DAILY [facility]; Protocol Last Admin: 11/02/23 08:57 Dose: Not Given Lorazepam (Lorazepam 0.5 Mg Tablet) 0.5 mg PO Q8H PRN PRN Reason: Anxiety Last Admin: 10/28/23 14:31 Dose: 0.5 mg Magnesium Hydroxide (Milk Of Magnesia 30 Ml Oral.Susp) 30 ml PO DAILY PRN PRN Reason: Constipation Melatonin (Melatonin 3 Mg Tablet) 6 mg PO BEDTIME PRN PRN Reason: Insomnia Last Admin: 10/31/23 20:28 Dose: 6 mg Multivitamins/Vitamin C (Multivitamin Tablet) 1 tab PO DAILY [facility] Last Admin: 11/02/23 08:57 Dose: Not Given Olanzapine (Olanzapine 2.5 Mg Tablet) 2.5 mg PO BID PRN PRN Reason: anxiety/restlessness Last Admin: 10/12/23 17:19 Dose: 2.5 mg Olanzapine (Olanzapine 2.5 Mg Tablet) 2.5 mg PO BEDTIME [facility] Last Admin: 11/01/23 21:05 Dose: 2.5 mg Omeprazole (Omeprazole 20 Mg Capsule.Dr) 20 mg PO DAILY@0630 [facility] Last Admin: 11/02/23 05:44 Dose: 20 mg Ondansetron HCl (Ondansetron Odt 4 Mg Tab.Rapdis) 4 mg TRANSLINGU Q8H PRN PRN Reason: Nausea and Vomiting Last Admin: 10/14/23 09:40 Dose: 4 mg Polyethylene Glycol (Polyethylene Glycol 3350 17 Gm Powd.Pack) 17 gm PO DAILY PRN PRN Reason: constipation Propranolol HCl (Propranolol Hcl 10 Mg Tablet) 10 mg PO TID [facility]; Protocol Last Admin: 11/02/23 08:57 Dose: Not Given Senna/Docusate Sodium (Sennosides/Docusate Sodium Tablet) 2 tab PO BID [facility] Last Admin: 11/02/23 08:57 Dose: Not Given Tamsulosin HCl (Tamsulosin Hcl 0.4 Mg Capsule) 0.4 mg PO DAILY [facility] Last Admin: 11/02/23 08:58 Dose: Not Given Thiamine HCl (Thiamine Hcl 100 Mg Tablet) 100 mg PO DAILY [facility] Last Admin: 11/02/23 08:58 Dose: Not Given Vortioxetine (Vortioxetine Hydrobromide 10 Mg Tablet) 10 mg PO DAILY [facility] Last Admin: 11/02/23 08:58 Dose: Not Given Home Medications Medication Instructions Recorded Confirmed Last Taken Type amlodipine 5 mg tablet 10 mg PO DAILY 10/23/22 08/27/23 10/23/22 History fluticasone propionate 50 1 spray intranasal BID 08/27/23 08/27/23 Unknown History mcg/actuation nasal spray,suspension propranolol 20 mg tablet 20 mg PO BID 08/27/23 08/27/23 Unknown History Exam Height,Weight and Vital Signs: Height 5 ft 1 in Weight 50.3 kg Last Vital Signs Temp 98.5 F 11/02/23 06:00 Pulse 75 11/02/23 06:00 Resp 18 11/02/23 06:00 BP 147/71 H 11/02/23 06:00 Pulse Ox 95 11/02/23 06:00 O2 Del Method Room Air 11/02/23 06:00 O2 Flow Rate 2 10/30/23 14:02 Pertinent Lab Results Pertinent Lab Results: Laboratory Tests 09/28/23 09/29/23 10/13/23 14:09 07:53 13:22 WBC 8.0 RBC 3.92 L Hgb 11.4 L Hct 36.0 L MCV 91.8 MCH 29.1 MCHC 31.7 RDW 14.1 Plt Count 290 MPV 9.5 Immature Gran % (Auto) 0.5 H Neut % (Auto) 74.2 H Lymph % (Auto) 14.1 L [place] % (Auto) 8.4 Eos % (Auto) 2.4 Baso % (Auto) 0.4 Lymph # (Auto) 1.1 L [place] # (Auto) 0.7 Eos # (Auto) 0.2 Baso # (Auto) 0.0 Abs Immat Gran (auto) 0.04 H Absolute Neuts (auto) 5.9 Absolute Nucleated RBC 0.000 Nucleated RBC % (auto) 0.0 Sodium 144 139 Potassium 4.0 4.9 D Chloride 105 105 Carbon Dioxide 31 H 30 H Anion Gap 12 9 L BUN 14 16 Creatinine 0.82 0.76 1.03 Estim Creat Clear Calc TNP 48.5 36.6 Estimated GFR > 60 > 60 53 Random Glucose 115 Fasting Glucose 133 H Calcium 10.6 H D 9.6 D Total Bilirubin 0.3 0.2 AST 96 H 21 ALT 178 H 35 H Alkaline Phosphatase 129 H 86 Total Protein 6.2 L 5.5 L Albumin 3.4 L 3.1 L Triglycerides 131 Cholesterol 208 H LDL Cholesterol, Calc 140 H HDL Cholesterol 42 Influenza Type A (PCR) Influenza Type B (PCR) RSV RNA Qual (PCR) SARS-CoV-2 RNA (RT-PCR) 10/27/23 19:30 WBC RBC Hgb Hct MCV MCH MCHC RDW Plt Count MPV Immature Gran % (Auto) Neut % (Auto) Lymph % (Auto) [place] % (Auto) Eos % (Auto) Baso % (Auto) Lymph # (Auto) [place] # (Auto) Eos # (Auto) Baso # (Auto) Abs Immat Gran (auto) Absolute Neuts (auto) Absolute Nucleated RBC Nucleated RBC % (auto) Sodium Potassium Chloride Carbon Dioxide Anion Gap BUN Creatinine Estim Creat Clear Calc Estimated GFR Random Glucose Fasting Glucose Calcium Total Bilirubin AST ALT Alkaline Phosphatase Total Protein Albumin Triglycerides Cholesterol LDL Cholesterol, Calc HDL Cholesterol Influenza Type A (PCR) NEGATIVE Influenza Type B (PCR) NEGATIVE RSV RNA Qual (PCR) NEGATIVE SARS-CoV-2 RNA (RT-PCR) NEGATIVE Airway Mallampati Class: II TM Dist: >3cm Neck ROM: Full Loose/Missing/Broken Teeth: Yes Heart: [id number] Lungs: cta b/l Assessment and Plan Assessment Anesthesia Assessment: Anesthesia Plan Discussed and Chart Reviewed Final Anesthetic Review Family History of Problems with Anesthesia: No History of Problems with Anesthesia: No NPO: Yes ASA Class: III Final Preanesthetic Review: No Changes in Pt Med Stat, Meds/Allgs Chart Reviewed, Consent Obtained/Reviewed and Anes Risks/Benef Reviewed Patient Risk: Intermediate Procedure Risk: Intermediate Assessment/Block/Sedation in SS: Assess/Block/Sedation-SS Anesthetic Plan Anesthetic Plan: GA and Agree w/ Assess. and Plan Disposition: Standard PACU
[2023-11-02] MEDS: Scopolamine 1.5 MG PATCH.TD.3 EAR-BEHIND (12:04)
[2023-11-02] MEDS: Ascorbic Acid 500 MG TABLET 2000 MG PO ×2 (13:38→21:34)
[2023-11-02] MEDS: Vortioxetine Hydrobromide 10 MG TABLET PO (13:38)
[2023-11-02] MEDS: amLODIPine Besylate 5 MG TABLET PO ×2 (13:39→13:42)
[2023-11-02] MEDS: Thiamine HCL 100 MG TABLET PO ×2 (13:39→13:43)
[2023-11-02] MEDS: buPROPion HCl XL 150 MG TAB.ER.24H PO ×2 (13:39→13:43)
[2023-11-02] MEDS: Multivitamin TABLET 1 TAB PO (13:40)
[2023-11-02] MEDS: lisinopriL 5 MG TABLET 15 MG PO (13:40)
[2023-11-02] MEDS: Tamsulosin HCL 0.4 MG CAPSULE PO (13:40)
--- NOTE | 2023-11-02 13:51 | PC.NURSE ---
Patient returned from ECT approximately 1330. vitals taken. P 71, R 18, BP 174/79, O2 94 %. Morning medications were given including medications for BP. Will recheck. Patient tolerated procedure well. Waiting for lunch to arrive. No adverse reactions to ECT noted.
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
--- NOTE | 2023-11-02 18:05 | HO.ECTPROC ---
ECT Procedure Note Diagnosis/Treatment Date of Service: 11/02/23 Diagnosis: Major Depressive Disorder Previous ECT Date: 10/30/23 Current Treatment Number: 6 Treatment: Series Interval Clinical Notes: pt doing better less depressed limited s/e rul 0.25 program Time: Total time managing care of this patient today ____ minutes. ECT Settings Device: THYMATRON DGx Electrode Placement: Right Unilateral Program/Pulse Width: 0.25 Energy Percent: 90 Seizure Duration By EEG (in seconds): 24 Medications Administration General Anesthetic: Methohexital (80) Muscle Relaxant: Succinylcholine (80) Ancillary Medications Anti-emetics: Zofran - Pre ECT Miscillaneous Medications: Propofol (20) Treatment Recommendations Electrode Placement: Right Unilateral Notes: may need to inc 0.5 pw Pt Tolerated Procedure w/o Issue: Yes
--- NOTE | 2023-11-02 18:05 | HO.PSYCHPN ---
Subjective Subjective Date of Service: 11/02/23 Reason For Visit: Severe depression Subjective Notes: Conditional Voluntary Interim History: Patient showing clear improved on Trintellix Wellbutrin ECT 6. Mental Status Exam Mental Status Exam Patient Appearance: Appropriate Patient Orientation: Person and Situation Level of Consciousness: Awake and Appropriate Patient Behavior: Passive Mood Description: Depressed Affect Description: Constricted Patient Cognition Impaired: Yes Ability to Follow Directions: Good Speech Pattern: Clear Memory Description: Recent Impaired and Working Impaired Diagnostics Vital Signs (24Hr): Vital Signs - 24 hr 11/02/23 06:00 11/02/23 12:00 11/02/23 12:24 Temperature 98.5 F 97.2 F 97.4 F Pulse Rate 75 75 87 Respiratory Rate 18 18 20 Blood Pressure 147/71 H 181/73 H 162/78 H Pulse Oximetry 95 94 98 Oxygen Delivery Method Room Air Room Air Nasal Cannula with ETCO2 Oxygen Flow Rate 2 11/02/23 12:29 11/02/23 12:34 11/02/23 12:39 Temperature Pulse Rate 89 85 79 Respiratory Rate 20 16 18 Blood Pressure 137/76 162/74 H 171/78 H Pulse Oximetry 97 97 98 Oxygen Delivery Method Nasal Cannula with ETCO2 Nasal Cannula with ETCO2 Nasal Cannula with ETCO2 Oxygen Flow Rate 2 2 2 11/02/23 12:54 11/02/23 13:11 11/02/23 13:50 Temperature 97.5 F Pulse Rate 81 71 71 Respiratory Rate 17 17 18 Blood Pressure 163/71 H 177/80 H 161/69 H Pulse Oximetry 98 97 99 Oxygen Delivery Method Nasal Cannula with ETCO2 Room Air Room Air Oxygen Flow Rate 2 BMI result Body Mass Index 21.0 Labs 10/13/23 13:22 10/13/23 13:22 Imaging Radiology Impressions: ITS Impressions Head CT 10/08/23 16:26 IMPRESSION: No acute intracranial process seen. Ankle X-Ray 10/23/23 08:59 IMPRESSION: Unremarkable examination. Foot X-Ray 10/23/23 08:59 IMPRESSION: Unremarkable examination. Head CT 10/27/23 20:09 IMPRESSION: No acute intracranial pathology. This critical result was discussed with Dr. tyler Arce at 8:20 PM hours on 10/27/2023. It was ascertained that the content and urgency of the report was understood at the time of direct communication. Venous Duplex 10/29/23 20:04 IMPRESSION: No DVT demonstrated in the bilateral lower extremities. Medications Medications Current Medications Acetaminophen (Acetaminophen 325 Mg Tablet) 650 mg PO Q4H PRN PRN Reason: Pain, Severe (Pain Scale 7-10) Last Admin: 11/01/23 21:34 Dose: 650 mg Acetaminophen (Acetaminophen 325 Mg Tablet) 650 mg PO ONCE PRN PRN Reason: Pain, Mild (Pain Scale 1-3) Al Hydroxide/Mg Hydroxide (Magnesium Hydrox/Alum Hydrox 30 Ml Oral.Susp) 30 ml PO Q6H PRN PRN Reason: Heartburn/Nausea Amlodipine Besylate (Amlodipine Besylate 5 Mg Tablet) 5 mg PO DAILY ON LICENSE OF [facility]; Protocol Last Admin: 11/02/23 13:42 Dose: 5 mg Ascorbic Acid (Ascorbic Acid 500 Mg Tablet) 2,000 mg PO BEDTIME ON LICENSE OF [facility] Last Admin: 11/02/23 13:38 Dose: 2,000 mg Bisacodyl (Bisacodyl 5 Mg Tablet.Dr) 10 mg PO DAILY PRN PRN Reason: Constipation Brimonidine Tartrate (Brimonidine Tartrate 0.2% Oph 5 Ml Bottle) 1 drop EYE-BOTH BID ON LICENSE OF [facility] Last Admin: 11/02/23 08:55 Dose: Not Given Bupropion HCl (Bupropion Hcl Xl 150 Mg Tab.Er.24h) 150 mg PO DAILY ON LICENSE OF [facility] Last Admin: 11/02/23 13:43 Dose: 150 mg Fluticasone Propionate (Fluticasone Propionate Nasal 16 Gm [place]) 1 spray NOSTRIL-B BID ON LICENSE OF [facility] Last Admin: 11/02/23 08:56 Dose: Not Given Hydroxyzine HCl (Hydroxyzine Hcl 25 Mg Tablet) 25 mg PO Q6H PRN PRN Reason: Anxiety Last Admin: 10/30/23 20:33 Dose: 25 mg Lisinopril (Lisinopril 5 Mg Tablet) 15 mg PO DAILY ON LICENSE OF [facility]; Protocol Last Admin: 11/02/23 13:40 Dose: 15 mg Lorazepam (Lorazepam 0.5 Mg Tablet) 0.5 mg PO Q8H PRN PRN Reason: Anxiety Last Admin: 10/28/23 14:31 Dose: 0.5 mg Magnesium Hydroxide (Milk Of Magnesia 30 Ml Oral.Susp) 30 ml PO DAILY PRN PRN Reason: Constipation Melatonin (Melatonin 3 Mg Tablet) 6 mg PO BEDTIME PRN PRN Reason: Insomnia Last Admin: 10/31/23 20:28 Dose: 6 mg Multivitamins/Vitamin C (Multivitamin Tablet) 1 tab PO DAILY ON LICENSE OF [facility] Last Admin: 11/02/23 13:40 Dose: 1 tab Olanzapine (Olanzapine 2.5 Mg Tablet) 2.5 mg PO BID PRN PRN Reason: anxiety/restlessness Last Admin: 10/12/23 17:19 Dose: 2.5 mg Olanzapine (Olanzapine 2.5 Mg Tablet) 2.5 mg PO BEDTIME ON LICENSE OF [facility] Last Admin: 11/01/23 21:05 Dose: 2.5 mg Omeprazole (Omeprazole 20 Mg Capsule.Dr) 20 mg PO DAILY@0630 ON LICENSE OF [facility] Last Admin: 11/02/23 05:44 Dose: 20 mg Ondansetron HCl (Ondansetron Odt 4 Mg Tab.Rapdis) 4 mg TRANSLINGU Q8H PRN PRN Reason: Nausea and Vomiting Last Admin: 10/14/23 09:40 Dose: 4 mg Polyethylene Glycol (Polyethylene Glycol 3350 17 Gm Powd.Pack) 17 gm PO DAILY PRN PRN Reason: constipation Propranolol HCl (Propranolol Hcl 10 Mg Tablet) 10 mg PO TID ON LICENSE OF [facility]; Protocol Last Admin: 11/02/23 15:17 Dose: Not Given Senna/Docusate Sodium (Sennosides/Docusate Sodium Tablet) 2 tab PO BID ON LICENSE OF [facility] Last Admin: 11/02/23 08:57 Dose: Not Given Tamsulosin HCl (Tamsulosin Hcl 0.4 Mg Capsule) 0.4 mg PO DAILY ON LICENSE OF [facility] Last Admin: 11/02/23 13:40 Dose: 0.4 mg Thiamine HCl (Thiamine Hcl 100 Mg Tablet) 100 mg PO DAILY ON LICENSE OF [facility] Last Admin: 11/02/23 13:43 Dose: 100 mg Vortioxetine (Vortioxetine Hydrobromide 10 Mg Tablet) 10 mg PO DAILY ON LICENSE OF [facility] Last Admin: 11/02/23 13:38 Dose: 10 mg Allergies Allergies Allergy/AdvReac Type Severity Reaction Status Date / Time No Known Allergies Allergy Verified 08/27/23 10:27 Assessment & Plan Assessment & Plan (1) Bipolar II disorder: Status: Inactive Code(s): F31.81 - Bipolar II disorder (2) Depression, major, severe recurrence: Status: Acute Code(s): F33.2 - Major depressive disorder, recurrent severe without psychotic features (3) Hypertension: Status: Chronic Code(s): I10 - Essential (primary) hypertension (4) Odynophagia: Status: Acute Code(s): R13.10 - Dysphagia, unspecified (5) Major depressive disorder, recurrent severe without psychotic features: Status: Acute Code(s): F33.2 - Major depressive disorder, recurrent severe without psychotic features Plan The patient is an elderly female with a past history of mood disorder, anxiety personality disorder NOS who was brought into the hospital for altered mental status after a short course of as provide of for depression. 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 After being medically cleared she was transferring to this facility for psychiatric stabilization. Plan 1. Gather collateral information. 2. Continue Risperdal and antidepressants as started the medicine. 3. Regular blood work and reassessment with results. 4. 15 minute checks. 5. Speech and swallow evaluation for possible change of diet. 09/30/23 add wellbutrin 75 mg non serotonergic trintellix 5 mg remains with some PI but improved encourage phys rehab 10/01/23 Patient shows improved mood and energy ambulating better more active. Concerns regarding her short-term memory remembering names and fears regarding strength in her has which do seem somewhat bilaterally diminished and some numbness tingling seems to be improving cont trintellix wellbutrin 10/02/2023 Patient generally trending upwards generally less depressed but complicated by periods of paranoia and then apprehension depression and despair feels like she can trust staff and somehow they are intentionally playing with her in some way denies self-harm Recent confusional episode lasting a number of weeks question all serotonergic syndrome delirium question related to S ketamine Encourage out of bed ambulation PT consult increase in Risperdal had recently been on Latuda Vraylar and Rexulti without clear benefit would maintain current low-dose Trintellix 5 mg Wellbutrin recently started 75 mg 10/03: Continue current management and treatment plan. 10/04: Continue current management and treatment plan. Medication changes per primary team Dr. Shearer that knows the patient well. 10/05/2023 Increase Trintellix to 10 mg increase Wellbutrin to 100 mg consider change Risperdal to olanzapine or Seroquel strongly consider ECT patient having difficulty with trust 10/06/23 stop risperadol olanzapine hs and prn 10/07/23 Pt anxious depressed inc trintellix 10 mg inc olanzapine 2.5 am 5 hs wellbutrin 100 mg am 10/08/2023 The patient reports depression, we will continue with Trintellix and we will lower Zyprexa up to 2.5 p.o. q.h.s. and keep p.r.n. 2.5 Zyprexa as needed for psychosis. 10/09 keep same treatment 10/10 restart propanolol 10mg po TID for essential tremors. 10/11 continue tx. 10/12/23 hopeless helpless pos pi inc olanzapine suspicious anxious ? ect 10/13/2023 Patient hopeless helpless despondent severely depressed has not responded to multiple antidepressant trials and augmentation strategies. She appears delusional the depressed hopeless helpless with thoughts that she would be better off denies current plan or intent reviewed risks benefits alternatives with patient son and patient is asking for ECT no medical contraindications. She did has some significant amnesia will maintain right unilateral no more than 2 times a week try and maintain at 0.25 pulse width there seemed to be few alternatives at this point EKG unremarkable 10/14/2023 Patient seen with her see ECT note 10/15/2023 Encourage increase head of bed continue physical therapy recent head CT was unremarkable neuro consult question neuropathy question left footdrop will get hospitalist consult continue Trintellix Wellbutrin 10/16/2023 Increase Wellbutrin to 150 mg daily monitor for hypertension agitation worsening constipation continue Trental X ECT scheduled for 3 days Needs much support and courage mint 10/17/23 Continue regime and plan of care. 10/18/23 Continue regime and plan of care. 10/22/23 Pt seen in f/u cont ect consider inc 3 x wk ck l foot xr 10/23 continue same treatment ECT today. We are going to discuss the possibility of increasing ECT 3 times a week 10/24 continue same treatment 10/25 continue same treatment ECT tomorrow. 10/26 continue same treatment. 10/27 continue same treatment, ECT for next Sunday 10/28: no change to mgmt. stable. headt CT WNL. working with PT on gait/LLE weakness. 12/14 discontinue Zyprexa 2.5 in the morning. ECT for tomorrow rest the same 10/30 ECT today continue same treatment 10/31: Continue ECT per primary team 11/01: Continue current management and treatment plan. Continue ECT Reason for continued inpatient stay Substantial Risk for: inability to function and rapid decompensation Time Spent With Patient Time: Total time managing care of this patient today ____ minutes.
[2023-11-02] MEDS: Sennosides/Docusate Sodium TABLET 2 TAB PO (21:34)
[2023-11-02] MEDS: Brimonidine Tartrate 0.2% Oph 5 ML BOTTLE 1 DROP EYE-BOTH (21:34)
[2023-11-02] MEDS: OLANZapine 2.5 MG TABLET PO (21:34)
[2023-11-02] MEDS: Fluticasone Propionate Nasal 16 GM SPRAY 1 SPRAY NOSTRIL-B (21:34)
[2023-11-02] MEDS: Propranolol HCL 10 MG TABLET PO (21:43)
[2023-11-03] MEDS: Omeprazole 20 MG CAPSULE.DR PO (05:46)
[2023-11-03 07:45] VITALS: BP 132/60; PULSE 86; RESP 15; TEMP 36.5; O2SAT 95
[2023-11-03 09:05] LABS: COVID-19 Test Negative (Negative); IDNOW Serial# 08D9AD1C
[2023-11-03] MEDS: Brimonidine Tartrate 0.2% Oph 5 ML BOTTLE 1 DROP EYE-BOTH ×2 (11:50→21:19)
[2023-11-03] MEDS: Multivitamin TABLET 1 TAB PO (11:50)
[2023-11-03] MEDS: Fluticasone Propionate Nasal 16 GM SPRAY 1 SPRAY NOSTRIL-B ×2 (11:50→21:20)
[2023-11-03] MEDS: amLODIPine Besylate 5 MG TABLET PO (11:51)
[2023-11-03] MEDS: Thiamine HCL 100 MG TABLET PO (11:52)
[2023-11-03] MEDS: Sennosides/Docusate Sodium TABLET 2 TAB PO ×2 (11:53→21:20)
[2023-11-03] MEDS: Propranolol HCL 10 MG TABLET PO ×3 (11:53→21:20)
[2023-11-03] MEDS: buPROPion HCl XL 150 MG TAB.ER.24H PO (11:53)
[2023-11-03] MEDS: lisinopriL 5 MG TABLET 15 MG PO (11:53)
[2023-11-03] MEDS: Tamsulosin HCL 0.4 MG CAPSULE PO (11:53)
[2023-11-03] MEDS: Vortioxetine Hydrobromide 10 MG TABLET PO (11:54)
[2023-11-03 15:23] VITALS: BP 115/56; PULSE 77
[2023-11-03 20:00] VITALS: BP 147/67; PULSE 74; RESP 18; TEMP 36.1; O2SAT 96
--- NOTE | 2023-11-03 21:01 | HO.PSYCHPN ---
Subjective Subjective Date of Service: 11/03/23 Reason For Visit: Severe depression Subjective Notes: Conditional Voluntary Interim History: PATIENT FUTURE ORIENTED SHOWING A IMPROVE MOOD LESS RUMINATING STATING FEELING COMFORTABLE FOR DISCHARGE TOMORROW AFTER ECT IF STABLE Medication Compliance: Yes Mental Status Exam Mental Status Exam Patient Appearance: Appropriate Patient Orientation: Person and Situation Level of Consciousness: Awake and Appropriate Patient Behavior: Passive Mood Description: Flat Affect Description: Constricted Patient Cognition Impaired: Yes Ability to Follow Directions: Good Speech Pattern: Clear Memory Description: Intact Hallucinations: None Delusions: Not Present Depressive Symptoms: Increased Anxiety Judgement and Insight: SOME ANXIETY REGARDING HOW PEOPLE WILL RECEIVE HER AFTER DISCHARGE Diagnostics Vital Signs (24Hr): Vital Signs - 24 hr 11/03/23 07:45 11/03/23 15:23 Temperature 97.7 F Pulse Rate 86 77 Respiratory Rate 15 Blood Pressure 132/60 115/56 L Pulse Oximetry 95 Oxygen Delivery Method Room Air BMI result Body Mass Index 21.0 Labs 10/13/23 13:22 10/13/23 13:22 Labs: Laboratory Results - last 48 hr 11/03/23 08:00 COVID-19 (REE) Negative COVID-19 Clin Com See Note Imaging Radiology Impressions: ITS Impressions Head CT 10/08/23 16:26 IMPRESSION: No acute intracranial process seen. Ankle X-Ray 10/23/23 08:59 IMPRESSION: Unremarkable examination. Foot X-Ray 10/23/23 08:59 IMPRESSION: Unremarkable examination. Head CT 10/27/23 20:09 IMPRESSION: No acute intracranial pathology. This critical result was discussed with Dr. tyler Arce at 8:20 PM hours on 10/27/2023. It was ascertained that the content and urgency of the report was understood at the time of direct communication. Venous Duplex 10/29/23 20:04 IMPRESSION: No DVT demonstrated in the bilateral lower extremities. Medications Medications Current Medications Acetaminophen (Acetaminophen 325 Mg Tablet) 650 mg PO Q4H PRN PRN Reason: Pain, Severe (Pain Scale 7-10) Last Admin: 11/01/23 21:34 Dose: 650 mg Acetaminophen (Acetaminophen 325 Mg Tablet) 650 mg PO ONCE PRN PRN Reason: Pain, Mild (Pain Scale 1-3) Al Hydroxide/Mg Hydroxide (Magnesium Hydrox/Alum Hydrox 30 Ml Oral.Susp) 30 ml PO Q6H PRN PRN Reason: Heartburn/Nausea Amlodipine Besylate (Amlodipine Besylate 5 Mg Tablet) 5 mg PO DAILY [facility]; Protocol Last Admin: 11/03/23 11:51 Dose: 5 mg Ascorbic Acid (Ascorbic Acid 500 Mg Tablet) 2,000 mg PO BEDTIME [facility] Last Admin: 11/02/23 21:34 Dose: 2,000 mg Bisacodyl (Bisacodyl 5 Mg Tablet.Dr) 10 mg PO DAILY PRN PRN Reason: Constipation Brimonidine Tartrate (Brimonidine Tartrate 0.2% Oph 5 Ml Bottle) 1 drop EYE-BOTH BID [facility] Last Admin: 11/03/23 11:50 Dose: 1 drop Bupropion HCl (Bupropion Hcl Xl 150 Mg Tab.Er.24h) 150 mg PO DAILY [facility] Last Admin: 11/03/23 11:53 Dose: 150 mg Fluticasone Propionate (Fluticasone Propionate Nasal 16 Gm [place]) 1 spray NOSTRIL-B BID [facility] Last Admin: 11/03/23 11:50 Dose: 1 spray Hydroxyzine HCl (Hydroxyzine Hcl 25 Mg Tablet) 25 mg PO Q6H PRN PRN Reason: Anxiety Last Admin: 10/30/23 20:33 Dose: 25 mg Lisinopril (Lisinopril 5 Mg Tablet) 15 mg PO DAILY [facility]; Protocol Last Admin: 11/03/23 11:53 Dose: 15 mg Lorazepam (Lorazepam 0.5 Mg Tablet) 0.5 mg PO Q8H PRN PRN Reason: Anxiety Last Admin: 10/28/23 14:31 Dose: 0.5 mg Magnesium Hydroxide (Milk Of Magnesia 30 Ml Oral.Susp) 30 ml PO DAILY PRN PRN Reason: Constipation Melatonin (Melatonin 3 Mg Tablet) 6 mg PO BEDTIME PRN PRN Reason: Insomnia Last Admin: 10/31/23 20:28 Dose: 6 mg Multivitamins/Vitamin C (Multivitamin Tablet) 1 tab PO DAILY [facility] Last Admin: 11/03/23 11:50 Dose: 1 tab Olanzapine (Olanzapine 2.5 Mg Tablet) 2.5 mg PO BID PRN PRN Reason: anxiety/restlessness Last Admin: 10/12/23 17:19 Dose: 2.5 mg Olanzapine (Olanzapine 2.5 Mg Tablet) 2.5 mg PO BEDTIME [facility] Last Admin: 11/02/23 21:34 Dose: 2.5 mg Omeprazole (Omeprazole 20 Mg Capsule.Dr) 20 mg PO DAILY@0630 [facility] Last Admin: 11/03/23 05:46 Dose: 20 mg Ondansetron HCl (Ondansetron Odt 4 Mg Tab.Rapdis) 4 mg TRANSLINGU Q8H PRN PRN Reason: Nausea and Vomiting Last Admin: 10/14/23 09:40 Dose: 4 mg Polyethylene Glycol (Polyethylene Glycol 3350 17 Gm Powd.Pack) 17 gm PO DAILY PRN PRN Reason: constipation Propranolol HCl (Propranolol Hcl 10 Mg Tablet) 10 mg PO TID [facility]; Protocol Last Admin: 11/03/23 15:23 Dose: 10 mg Senna/Docusate Sodium (Sennosides/Docusate Sodium Tablet) 2 tab PO BID [facility] Last Admin: 11/03/23 11:53 Dose: 2 tab Tamsulosin HCl (Tamsulosin Hcl 0.4 Mg Capsule) 0.4 mg PO DAILY [facility] Last Admin: 11/03/23 11:53 Dose: 0.4 mg Thiamine HCl (Thiamine Hcl 100 Mg Tablet) 100 mg PO DAILY [facility] Last Admin: 11/03/23 11:52 Dose: 100 mg Vortioxetine (Vortioxetine Hydrobromide 10 Mg Tablet) 10 mg PO DAILY [facility] Last Admin: 11/03/23 11:54 Dose: 10 mg Allergies Allergies Allergy/AdvReac Type Severity Reaction Status Date / Time No Known Allergies Allergy Verified 08/27/23 10:27 Assessment & Plan Assessment & Plan (1) Bipolar II disorder: Status: Inactive Code(s): F31.81 - Bipolar II disorder (2) Depression, major, severe recurrence: Status: Acute Code(s): F33.2 - Major depressive disorder, recurrent severe without psychotic features (3) Hypertension: Status: Chronic Code(s): I10 - Essential (primary) hypertension (4) Odynophagia: Status: Acute Code(s): R13.10 - Dysphagia, unspecified (5) Major depressive disorder, recurrent severe without psychotic features: Status: Acute Code(s): F33.2 - Major depressive disorder, recurrent severe without psychotic features Plan The patient is an elderly female with a past history of mood disorder, anxiety personality disorder NOS who was brought into the hospital for altered mental status after a short course of as provide of for depression. 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 After being medically cleared she was transferring to this facility for psychiatric stabilization. Plan 1. Gather collateral information. 2. Continue Risperdal and antidepressants as started the medicine. 3. Regular blood work and reassessment with results. 4. 15 minute checks. 5. Speech and swallow evaluation for possible change of diet. 09/30/23 add wellbutrin 75 mg non serotonergic trintellix 5 mg remains with some PI but improved encourage phys rehab 10/01/23 Patient shows improved mood and energy ambulating better more active. Concerns regarding her short-term memory remembering names and fears regarding strength in her has which do seem somewhat bilaterally diminished and some numbness tingling seems to be improving cont trintellix wellbutrin 10/02/2023 Patient generally trending upwards generally less depressed but complicated by periods of paranoia and then apprehension depression and despair feels like she can trust staff and somehow they are intentionally playing with her in some way denies self-harm Recent confusional episode lasting a number of weeks question all serotonergic syndrome delirium question related to S ketamine Encourage out of bed ambulation PT consult increase in Risperdal had recently been on Latuda Vraylar and Rexulti without clear benefit would maintain current low-dose Trintellix 5 mg Wellbutrin recently started 75 mg 10/03: Continue current management and treatment plan. 10/04: Continue current management and treatment plan. Medication changes per primary team Dr. Shearer that knows the patient well. 10/05/2023 Increase Trintellix to 10 mg increase Wellbutrin to 100 mg consider change Risperdal to olanzapine or Seroquel strongly consider ECT patient having difficulty with trust 10/06/23 stop risperadol olanzapine hs and prn 10/07/23 Pt anxious depressed inc trintellix 10 mg inc olanzapine 2.5 am 5 hs wellbutrin 100 mg am 10/08/2023 The patient reports depression, we will continue with Trintellix and we will lower Zyprexa up to 2.5 p.o. q.h.s. and keep p.r.n. 2.5 Zyprexa as needed for psychosis. 10/09 keep same treatment 10/10 restart propanolol 10mg po TID for essential tremors. 10/11 continue tx. 10/12/23 hopeless helpless pos pi inc olanzapine suspicious anxious ? ect 10/13/2023 Patient hopeless helpless despondent severely depressed has not responded to multiple antidepressant trials and augmentation strategies. She appears delusional the depressed hopeless helpless with thoughts that she would be better off denies current plan or intent reviewed risks benefits alternatives with patient son and patient is asking for ECT no medical contraindications. She did has some significant amnesia will maintain right unilateral no more than 2 times a week try and maintain at 0.25 pulse width there seemed to be few alternatives at this point EKG unremarkable 10/14/2023 Patient seen with her see ECT note 10/15/2023 Encourage increase head of bed continue physical therapy recent head CT was unremarkable neuro consult question neuropathy question left footdrop will get hospitalist consult continue Trintellix Wellbutrin 10/16/2023 Increase Wellbutrin to 150 mg daily monitor for hypertension agitation worsening constipation continue Trental X ECT scheduled for 3 days Needs much support and courage mint 10/17/23 Continue regime and plan of care. 10/18/23 Continue regime and plan of care. 10/22/23 Pt seen in f/u cont ect consider inc 3 x wk ck l foot xr 10/23 continue same treatment ECT today. We are going to discuss the possibility of increasing ECT 3 times a week 10/24 continue same treatment 10/25 continue same treatment ECT tomorrow. 10/26 continue same treatment. 10/27 continue same treatment, ECT for next Sunday 10/28: no change to mgmt. stable. headt CT WNL. working with PT on gait/LLE weakness. 10/29 discontinue Zyprexa 2.5 in the morning. ECT for tomorrow rest the same 10/30 ECT today continue same treatment 10/31: Continue ECT per primary team 11/01: Continue current management and treatment plan. Continue ECT 11/03/2023 ECT IN A.M. THEN HOME IF STABLE AT DISCHARGE IN FOLLOW-UP OUTPATIENT TREATMENT Reason for continued inpatient stay Substantial Risk for: inability to function and rapid decompensation Time Spent With Patient Time: Total time managing care of this patient today ____ minutes.
[2023-11-03] MEDS: Ascorbic Acid 500 MG TABLET 2000 MG PO (21:20)
[2023-11-03] MEDS: OLANZapine 2.5 MG TABLET PO (21:20)
[2023-11-04] VITALS (8 sets, daily range): BP systolic 117–168; BP diastolic 60–78; PULSE 65–85; RESP 15–20; TEMP 36.2–37.1; O2SAT 95–98
--- NOTE | 2023-11-04 06:49 | HO.ANESPROP2 ---
[facility] Active Problems Active Problems: All Active Problems (Updated 10/16/23 @ 13:45 by Lucia Garcia MD) Footdrop (Acute) Major depressive disorder, recurrent severe without psychotic features (Acute) Personality disorder (Acute) Organic catatonia (Acute) Abnormal EKG (Acute) Odynophagia (Acute) Paranoia (Acute) Dysphagia (Acute) Serotonin syndrome (Acute) Ataxia (Acute) Tremors of nervous system (Acute) Major depression in full remission (Acute) Depression, major, severe recurrence (Acute) Memory deficit (Acute) ADHD (attention deficit hyperactivity disorder) (Acute) ZAC (generalized anxiety disorder) (Acute) Depression (Acute) Pre-op evaluation (Acute) Acute bacterial conjunctivitis of both eyes (Acute) Hypercalcemia (Acute) Hypothyroidism (Acute) Leukocytosis (Acute) Hypertension (Chronic) Past Medical History Medical History Urinary tract infection Depression Hypothyroidism ZAC (generalized anxiety disorder) Hypertension ADHD (attention deficit hyperactivity disorder) Functional capacity: independent ambulation Family History Family History Other No pertinent family history Family history of problems with anesthesia: No Surgical History Surgical History H/O thumb surgery H/O cone biopsy of cervix History of Problems with Anesthesia: No Social History Social History Household Members: Spouse Household Members Other:: And two cats. Housing: House Do you presently have visiting nurse or other home services: No Unable to assess alcohol history related to: Unknown Alcohol intake: never Patient Tobacco Use Status: Former Tobacco user Quit Date: 20 years agp Tobacco use type: Cigarette Years Smoked: 20 e-Cigarette/Vaping Use: Never Used Second Hand Smoke Exposure: No Substance Use Type: Former Substance User and Marijuana service: No Sexual orientation: Straight/Heterosexual Meds Allergies Allergy/AdvReac Type Severity Reaction Status Date / Time No Known Allergies Allergy Verified 08/27/23 10:27 Active Medications: Current Medications Acetaminophen (Acetaminophen 325 Mg Tablet) 650 mg PO Q4H PRN PRN Reason: Pain, Severe (Pain Scale 7-10) Last Admin: 11/01/23 21:34 Dose: 650 mg Acetaminophen (Acetaminophen 325 Mg Tablet) 650 mg PO ONCE PRN PRN Reason: Pain, Mild (Pain Scale 1-3) Al Hydroxide/Mg Hydroxide (Magnesium Hydrox/Alum Hydrox 30 Ml Oral.Susp) 30 ml PO Q6H PRN PRN Reason: Heartburn/Nausea Amlodipine Besylate (Amlodipine Besylate 5 Mg Tablet) 5 mg PO DAILY [facility]; Protocol Last Admin: 11/03/23 11:51 Dose: 5 mg Ascorbic Acid (Ascorbic Acid 500 Mg Tablet) 2,000 mg PO BEDTIME NORBERTO Last Admin: 11/03/23 21:20 Dose: 2,000 mg Bisacodyl (Bisacodyl 5 Mg Tablet.Dr) 10 mg PO DAILY PRN PRN Reason: Constipation Brimonidine Tartrate (Brimonidine Tartrate 0.2% Oph 5 Ml Bottle) 1 drop EYE-BOTH BID [facility] Last Admin: 11/03/23 21:19 Dose: 1 drop Bupropion HCl (Bupropion Hcl Xl 150 Mg Tab.Er.24h) 150 mg PO DAILY [facility] Last Admin: 11/03/23 11:53 Dose: 150 mg Fluticasone Propionate (Fluticasone Propionate Nasal 16 Gm [place]) 1 spray NOSTRIL-B BID [facility] Last Admin: 11/03/23 21:20 Dose: 1 spray Hydroxyzine HCl (Hydroxyzine Hcl 25 Mg Tablet) 25 mg PO Q6H PRN PRN Reason: Anxiety Last Admin: 10/30/23 20:33 Dose: 25 mg Lisinopril (Lisinopril 5 Mg Tablet) 15 mg PO DAILY [facility]; Protocol Last Admin: 11/03/23 11:53 Dose: 15 mg Lorazepam (Lorazepam 0.5 Mg Tablet) 0.5 mg PO Q8H PRN PRN Reason: Anxiety Last Admin: 10/28/23 14:31 Dose: 0.5 mg Magnesium Hydroxide (Milk Of Magnesia 30 Ml Oral.Susp) 30 ml PO DAILY PRN PRN Reason: Constipation Melatonin (Melatonin 3 Mg Tablet) 6 mg PO BEDTIME PRN PRN Reason: Insomnia Last Admin: 10/31/23 20:28 Dose: 6 mg Multivitamins/Vitamin C (Multivitamin Tablet) 1 tab PO DAILY [facility] Last Admin: 11/03/23 11:50 Dose: 1 tab Olanzapine (Olanzapine 2.5 Mg Tablet) 2.5 mg PO BID PRN PRN Reason: anxiety/restlessness Last Admin: 10/12/23 17:19 Dose: 2.5 mg Olanzapine (Olanzapine 2.5 Mg Tablet) 2.5 mg PO BEDTIME [facility] Last Admin: 11/03/23 21:20 Dose: 2.5 mg Omeprazole (Omeprazole 20 Mg Capsule.Dr) 20 mg PO DAILY@0630 [facility] Last Admin: 11/03/23 05:46 Dose: 20 mg Ondansetron HCl (Ondansetron Odt 4 Mg Tab.Rapdis) 4 mg TRANSLINGU Q8H PRN PRN Reason: Nausea and Vomiting Last Admin: 10/14/23 09:40 Dose: 4 mg Polyethylene Glycol (Polyethylene Glycol 3350 17 Gm Powd.Pack) 17 gm PO DAILY PRN PRN Reason: constipation Propranolol HCl (Propranolol Hcl 10 Mg Tablet) 10 mg PO TID [facility]; Protocol Last Admin: 11/03/23 21:20 Dose: 10 mg Senna/Docusate Sodium (Sennosides/Docusate Sodium Tablet) 2 tab PO BID [facility] Last Admin: 11/03/23 21:20 Dose: 2 tab Tamsulosin HCl (Tamsulosin Hcl 0.4 Mg Capsule) 0.4 mg PO DAILY [facility] Last Admin: 11/03/23 11:53 Dose: 0.4 mg Thiamine HCl (Thiamine Hcl 100 Mg Tablet) 100 mg PO DAILY [facility] Last Admin: 11/03/23 11:52 Dose: 100 mg Vortioxetine (Vortioxetine Hydrobromide 10 Mg Tablet) 10 mg PO DAILY [facility] Last Admin: 11/03/23 11:54 Dose: 10 mg Home Medications Medication Instructions Recorded Confirmed Last Taken Type amlodipine 5 mg tablet 10 mg PO DAILY 10/23/22 08/27/23 10/23/22 History fluticasone propionate 50 1 spray intranasal BID 08/27/23 08/27/23 Unknown History mcg/actuation nasal spray,suspension propranolol 20 mg tablet 20 mg PO BID 08/27/23 08/27/23 Unknown History Exam Height,Weight and Vital Signs: Height 5 ft 1 in Weight 50.3 kg Last Vital Signs Temp 97.3 F 11/04/23 05:04 Pulse 85 11/04/23 05:04 Resp 18 11/04/23 05:04 BP 127/60 11/04/23 05:04 Pulse Ox 96 11/04/23 05:04 O2 Del Method Room Air 11/04/23 05:04 O2 Flow Rate 2 11/02/23 12:54 Pertinent Lab Results Pertinent Lab Results: Laboratory Tests 09/28/23 09/29/23 10/13/23 14:09 07:53 13:22 WBC 8.0 RBC 3.92 L Hgb 11.4 L Hct 36.0 L MCV 91.8 MCH 29.1 MCHC 31.7 RDW 14.1 Plt Count 290 MPV 9.5 Immature Gran % (Auto) 0.5 H Neut % (Auto) 74.2 H Lymph % (Auto) 14.1 L Green % (Auto) 8.4 Eos % (Auto) 2.4 Baso % (Auto) 0.4 Lymph # (Auto) 1.1 L Green # (Auto) 0.7 Eos # (Auto) 0.2 Baso # (Auto) 0.0 Abs Immat Gran (auto) 0.04 H Absolute Neuts (auto) 5.9 Absolute Nucleated RBC 0.000 Nucleated RBC % (auto) 0.0 Sodium 144 139 Potassium 4.0 4.9 D Chloride 105 105 Carbon Dioxide 31 H 30 H Anion Gap 12 9 L BUN 14 16 Creatinine 0.82 0.76 1.03 Estim Creat Clear Calc TNP 48.5 36.6 Estimated GFR > 60 > 60 53 Random Glucose 115 Fasting Glucose 133 H Calcium 10.6 H D 9.6 D Total Bilirubin 0.3 0.2 AST 96 H 21 ALT 178 H 35 H Alkaline Phosphatase 129 H 86 Total Protein 6.2 L 5.5 L Albumin 3.4 L 3.1 L Triglycerides 131 Cholesterol 208 H LDL Cholesterol, Calc 140 H HDL Cholesterol 42 COVID-19 (REE) COVID-19 Clin Com Influenza Type A (PCR) Influenza Type B (PCR) RSV RNA Qual (PCR) SARS-CoV-2 RNA (RT-PCR) 10/27/23 11/03/23 19:30 08:00 WBC RBC Hgb Hct MCV MCH MCHC RDW Plt Count MPV Immature Gran % (Auto) Neut % (Auto) Lymph % (Auto) Green % (Auto) Eos % (Auto) Baso % (Auto) Lymph # (Auto) Green # (Auto) Eos # (Auto) Baso # (Auto) Abs Immat Gran (auto) Absolute Neuts (auto) Absolute Nucleated RBC Nucleated RBC % (auto) Sodium Potassium Chloride Carbon Dioxide Anion Gap BUN Creatinine Estim Creat Clear Calc Estimated GFR Random Glucose Fasting Glucose Calcium Total Bilirubin AST ALT Alkaline Phosphatase Total Protein Albumin Triglycerides Cholesterol LDL Cholesterol, Calc HDL Cholesterol COVID-19 ([facility]) Negative COVID-19 Clin Com See Note Influenza Type A (PCR) NEGATIVE Influenza Type B (PCR) NEGATIVE RSV RNA Qual (PCR) NEGATIVE SARS-CoV-2 RNA (RT-PCR) NEGATIVE Airway Mallampati Class: II TM Dist: >3cm Neck ROM: Full Heart: rrr Lungs: cta Assessment and Plan Assessment Anesthesia Assessment: Anesthesia Plan Discussed and Chart Reviewed Final Anesthetic Review Family History of Problems with Anesthesia: No History of Problems with Anesthesia: No NPO: Yes ASA Class: III Final Preanesthetic Review: No Changes in Pt Med Stat, Meds/Allgs Chart Reviewed and Consent Obtained/Reviewed Patient Risk: Intermediate Procedure Risk: Intermediate Anesthetic Plan Anesthetic Plan: GA Disposition: Standard PACU
--- NOTE | 2023-11-04 07:41 | MHC.SHP ---
Pre-Procedural Eval Section A Date of Service: 11/04/23 The patient is an INPATIENT: Yes Changes since office visit: No Cold of Flu in the past 2 weeks, No New Medical Problems, No Changes in Medication and No Patient answered all questions The History & Physical has been completed within 30 days and I have reviewed it.: Yes Section B Chief Complaint: Severe depression Allergies: Allergies Allergy/AdvReac Type Severity Reaction Status Date / Time No Known Allergies Allergy Verified 08/27/23 10:27 Plan I have reviewed the history and physical and performed a pertinent physical examination on my patient. No changes have occurred unless specified. Time Spent With Patient Time: Total time managing care of this patient today ____ minutes.
--- NOTE | 2023-11-04 07:42 | HO.ECTPROC ---
ECT Procedure Note Diagnosis/Treatment Date of Service: 11/04/23 Diagnosis: Major Depressive Disorder Previous ECT Date: 11/02/23 Current Treatment Number: 7 Treatment: Series Interval Clinical Notes: pt doing better less depressed limited s/e rul 0.25 program SEEMS stable for d/c today Time: Total time managing care of this patient today ____ minutes. ECT Settings Device: THYMATRON DGx Electrode Placement: Right Unilateral Program/Pulse Width: 0.25 Energy Percent: 100 Seizure Duration By EEG (in seconds): 28 Medications Administration General Anesthetic: Methohexital (80) Muscle Relaxant: Succinylcholine (80) Ancillary Medications Anti-emetics: Zofran - Pre ECT Miscillaneous Medications: Propofol (20) Treatment Recommendations Electrode Placement: Right Unilateral Notes: tolerated well hyperventilate DO NOT INC PW TOLERATING 0.25 Pt Tolerated Procedure w/o Issue: Yes
[2023-11-04] MEDS: Multivitamin TABLET 1 TAB PO (09:05)
[2023-11-04] MEDS: buPROPion HCl XL 150 MG TAB.ER.24H PO (09:05)
[2023-11-04] MEDS: amLODIPine Besylate 5 MG TABLET PO (09:05)
[2023-11-04] MEDS: Brimonidine Tartrate 0.2% Oph 5 ML BOTTLE 1 DROP EYE-BOTH (09:05)
[2023-11-04] MEDS: Fluticasone Propionate Nasal 16 GM SPRAY 1 SPRAY NOSTRIL-B (09:05)
[2023-11-04] MEDS: Thiamine HCL 100 MG TABLET PO (09:06)
[2023-11-04] MEDS: Sennosides/Docusate Sodium TABLET 2 TAB PO (09:06)
[2023-11-04] MEDS: Vortioxetine Hydrobromide 10 MG TABLET PO (09:06)
[2023-11-04] MEDS: Propranolol HCL 10 MG TABLET PO (09:06)
[2023-11-04] MEDS: Tamsulosin HCL 0.4 MG CAPSULE PO (09:06)
[2023-11-04] MEDS: lisinopriL 5 MG TABLET 15 MG PO (09:06)
[2023-11-04] MEDS: Omeprazole 20 MG CAPSULE.DR PO (09:06)
--- NOTE | 2023-11-04 21:55 | P.DS_ITS ---
DS: Providers Provider Date of Service: 11/04/23 Date of admission: 09/28/23 13:04 Date of discharge: 11/04/23 Primary care physician: Unknown Physician Attending physician on admission: Yovany Shearer Consults: 10/02/23 14:28 Consult to Neurology Routine Consulting Provider: [facility] Reason for consultation: c/o BL hand wkness numbness tingling Has provider been notified: No 10/13/23 11:44 Consult to Hospitalist Routine Comment: Consulting Provider: Hospitalist Reason For Exam: med clearance for ect 10/15/23 16:45 Consult to Neurology Routine Consulting Provider: [facility] Reason for consultation: l foot drop ? weakness numbness hand bilat numbness Has provider been notified: No 10/15/23 17:51 Consult to Hospitalist Routine Comment: Consulting Provider: Hospitalist Reason For Exam: ? L foot dropc/o tingling hands worsening swallow 10/27/23 18:31 Consult to Hospitalist Routine Comment: Consulting Provider: Hospitalist Reason For Exam: pt all of sudden listing to right near falls 10/29/23 15:45 Consult to Hospitalist Routine Comment: Consulting Provider: Hospitalist Reason For Exam: lower leg edema Attending physician on discharge: Yovany Shearer DS: Diagnosis Discharge Diagnosis (1) Major depressive disorder, recurrent severe without psychotic features: Status: Acute (2) Hypertension: Status: Chronic (3) Odynophagia: Status: Acute (4) Major depressive disorder, recurrent, severe with psychotic features: Status: Acute (5) Delirium in remission: Status: Acute DS: Medications Discharge Medications Home Medications: Home Medications Medication Instructions Recorded Confirmed fluticasone propionate 50 1 spray intranasal BID 08/27/23 08/27/23 mcg/actuation nasal spray,suspension Previous Rx's Medication Instructions Recorded ascorbic acid (vitamin C) 500 mg 2,000 mg (4 x 500 mg) PO BEDTIME 08/26/22 tablet (Vitamin C) 30 days #120 tabs multivitamin (Daily-Dara tablet) 1 tab PO DAILY 30 days #30 tabs 08/26/22 omeprazole 20 mg capsule,delayed 20 mg PO DAILY@0630 #30 caps 09/16/23 release melatonin 3 mg tablet 6 mg (2 x 3 mg) PO BEDTIME PRN 09/28/23 Insomnia #20 tabs amlodipine 5 mg tablet 5 mg PO DAILY #30 tabs 11/03/23 brimonidine 0.2 % eye drops 1 drp ophthalmic (eye) BID #10 mL 11/03/23 bupropion HCl 150 mg 24 hr tablet, 150 mg PO DAILY #30 tabs 11/03/23 extended release lisinopril 5 mg tablet 15 mg PO DAILY 30 days #90 tabs 11/03/23 lorazepam 0.5 mg tablet 0.5 mg PO Q8H PRN Anxiety #30 tabs 11/03/23 olanzapine 2.5 mg tablet 2.5 mg PO BEDTIME 30 days #30 tabs 11/03/23 tamsulosin 0.4 mg capsule 0.4 mg PO DAILY #30 caps 11/03/23 vortioxetine 10 mg tablet 10 mg PO DAILY #30 tabs 11/03/23 (Trintellix) Mental Status Exam Mental Status Exam Patient Appearance: Appropriate Level of Consciousness: Awake and Appropriate Patient Behavior: Appropriate Mood Description: Blunted and Flat Affect Description: Constricted Ability to Follow Directions: Good Speech Pattern: Clear Data Data Completed and Pending Completed studies during hospitalization [Text1]: 11/03/23 08:00 COVID-19 (REE) Negative COVID-19 Clin Com See Note Imaging Diagnostic Imaging Impressions Head CT 10/08/23 16:26 IMPRESSION: No acute intracranial process seen. Ankle X-Ray 10/23/23 08:59 IMPRESSION: Unremarkable examination. Foot X-Ray 10/23/23 08:59 IMPRESSION: Unremarkable examination. Head CT 10/27/23 20:09 IMPRESSION: No acute intracranial pathology. This critical result was discussed with Dr. scott [facility] at 8:20 PM hours on 10/27/2023. It was ascertained that the content and urgency of the report was understood at the time of direct communication. Venous Duplex 10/29/23 20:04 IMPRESSION: No DVT demonstrated in the bilateral lower extremities. Patient: Miriam Valencia MR#: [id number] : 1950 Acct:[id number] Age/Sex: 72 / F ADM Date: 08/29/23 Loc: HO.S3 [id number]: Nam Yanes MD Ordering Physician: Nam Yanes MD Date of Service: 09/01/23 Procedure(s): MR head/brain wo con Accession Number(s): [id number] cc: Nam Yanes MD; Tami Francis MD~ EXAMINATION: MR BRAIN WITHOUT CONTRAST CLINICAL INFORMATION: Ataxia COMPARISON: None TECHNIQUE: Multiplanar multisequence MR imaging of the brain was obtained without intravenous contrast. FINDINGS: There is no acute infarct on diffusion-weighted imaging. There is no intracranial hemorrhage on iron-sensitive imaging. No extra-axial collection or mass effect/herniation. Patchy periventricular and deep white matter T2 FLAIR hyperintensities consistent with moderate underlying microangiopathy. No hydrocephalus. The ventricles are normal in morphology and size. The major flow voids at the skull base are preserved. The midline structures are normal. The cerebellar tonsils are normally positioned. The craniocervical junction is normal. Marrow signal is within normal limits. The visualized soft tissues are without significant abnormality. No signal abnormality within the paranasal sinuses or within the mastoid air cells. MR/MR head/brain wo con IMPRESSION: 1. No acute infarct or other acute intracranial abnormality 2. Moderate chronic microangiopathy DS: Summary Hospital Course Hospital Course: Psychiatry Admission Note (In) Signed Patient: Miriam Valencia MR#: [id number] : 1950 Acct:[id number] Age/Sex: 72 / F Loc: [facility] 175-[address]: Yovany Shearer MD cc: Sean oHffman ~ HPI Date of Service: 09/29/23 Chief Complaint: Severe depression Sources of Information: patient interviewed, chart reviewed and crisis/core team assessment reviewed Additional Sources of Information: Dr. Shearer HPI Subjective Notes: [place] Warning and Conditional Voluntary Narrative: The patient is a 72-year-old female, , transfer from the medical unit with a past history of bipolar type 2, personality disorder NOS and anxiety. The patient was initially admitted into the hospital for altered mental status. She recently had a course of Spravatto for depression in the community that probably could have triggered the serotonergic syndrome. 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 She had been delirious on and off for several days a certain point she will look catatonic. After being medically cleared the patient was transferred to the geriatric unit Psychiatry for continuation of care. On admission, the patient was extremely tired, with depressed mood, anhedonia, lack of energy, psychomotor retardation, limited eye contact and slow responses. While she was in the unit on Medicine, the patient was grossly paranoid and elusive so we decided to keep on a low dose of Risperdal. She was also was started on antidepressants upstairs. At this moment, the patient denies active suicidal ideation but her lack of energy is remarkable. No evidence of psychotic symptoms at this moment, she denies manic symptoms. Will gather more collateral information we are going to discuss the case with Dr. Shearer her regular psychiatrist and start working on the possibility of even ECT for depression. Past Psychiatric History: -Pt sees Dr. Shearer in OP setting recent hospitalization at the [place] [facility] Has had often on relapses over the past year and half -Remote hx of IPLOC 12 yrs ago, recent admissions at [facility] since 2020 with at least 4 admissions in the last 2 years Medical Evaluation Reviewed: Yes [facility] Medical History Urinary tract infection Depression Hypothyroidism ZAC (generalized anxiety disorder) Hypertension ADHD (attention deficit hyperactivity disorder) Surgical History H/O thumb surgery H/O cone biopsy of cervix Family History: Bipolar disorder Social History: The patient is 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 she does occasionally smoke marijuana Substance History: Denies Trauma History: NA Diagnostics Vital Signs (24Hr): Vital Signs - 24 hr 09/28/23 13:20 09/28/23 18:00 09/29/23 09:06 Temperature 98.1 F 97.5 F 98.1 F Pulse Rate 88 74 99 Respiratory Rate 16 18 18 Blood Pressure 120/57 L 123/67 109/66 Pulse Oximetry 98 94 94 Oxygen Delivery Method Room Air Room Air Room Air BMI result Body Mass Index 19.4 Labs 09/29/23 07:53 document embedded image Labs: Laboratory Results - last 48 hr 09/28/23 09/29/23 14:09 07:53 Sodium 144 Potassium 4.0 Chloride 105 Carbon Dioxide 31 H Anion Gap 12 BUN 14 Creatinine 0.82 0.76 Estim Creat Clear Calc TNP 48.5 Estimated GFR > 60 > 60 Fasting Glucose 133 H Calcium 10.6 H D Total Bilirubin 0.3 AST 96 H ALT 178 H Alkaline Phosphatase 129 H Total Protein 6.2 L Albumin 3.4 L Triglycerides 131 Cholesterol 208 H LDL Cholesterol, Calc 140 H HDL Cholesterol 42 Meds/Allergies Meds Home Medications Medication Instructions Recorded Confirmed Type amlodipine 5 mg tablet 10 mg PO DAILY 10/23/22 08/27/23 History fluticasone propionate 50 1 spray intranasal BID 08/27/23 08/27/23 History mcg/actuation nasal spray,suspension propranolol 20 mg tablet 20 mg PO BID 08/27/23 08/27/23 History Allergies Allergies Allergy/AdvReac Type Severity Reaction Status Date / Time No Known Allergies Allergy Verified 08/27/23 10:27 Mental Status Exam Mental Status Exam Patient Appearance: Appropriate Patient Orientation: Person and Situation Level of Consciousness: Awake and Appropriate Patient Behavior: Guarded and Passive Mood Description: Withdrawn Affect Description: Constricted Patient Cognition Impaired: Yes Ability to Follow Directions: Good Speech Pattern: Clear Hallucinations: None Delusions: Not Present Thought Process: Distracted, Evasive and Slowed Thinking Thought Content: positive for [place] and positive for Poverty of Content Judgement: Fair Assessment & Plan Assessment & Plan (1) Bipolar II disorder: Status: Inactive Code(s): F31.81 - Bipolar II disorder (2) Delirium: Status: Acute Code(s): R41.0 - Disorientation, unspecified Plan The patient is an elderly female with a past history of mood disorder, anxiety personality disorder NOS who was brought into the hospital for altered mental status after a short course of as provide of for depression. 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 After being medically cleared she was transferring to this facility for psychiatric stabilization. Plan 1. Gather collateral information. 2. Continue Risperdal and antidepressants as started the medicine. 3. Regular blood work and reassessment with results. 4. 15 minute checks. 5. Speech and swallow evaluation for possible change of diet. Patient educated on: diagnosis Informed Consent: further education needed Reason for continued inpatient stay Substantial Risk for: inability to function, rapid decompensation and med/psych decompensation Statement Statement: I have reviewed the history and physical and performed a pertinent examination on my patient. No changes have occurred unless specified. If the History and Physical was not performed prior to admission, the Hospitalist's service will be consulted for completing the admission physical. Time Spent With Patient Time: Total time managing care of this patient today __45__ minute Dictated By: Sean Hoffman Signed By: <Electronically signed by Sean Hoffman> 09/29/23 4300 Hospital course See psychiatric admission note above for full information. Patient is a 73-year-old female with a long history of recurrent depression who developed a confusional state as an outpatient well on a combination of Prozac Rexulti and was eventually also treated with S ketamine outpatient. She became increasingly lethargic confused was admitted through the emergency room seem to have a hypoactive delirium the exact etiology was never clear . There had been a question of UTI at 1 point question of serotonin syndrome. Decision was made to stop psychiatric medication and introduce it not only very gradual basis. Case was reviewed with hospitalist service, Neurology Dr. Garcia and . Decision was eventually made to transfer patient to the psychiatric unit with consideration for multiple reasons including treatment resistance recent delirium that ECT would most likely be the best course of action. Patient was admitted to psychiatric unit 09/29/2023. She was depressed withd rawn with suspiciousness and paranoia peer patient was depressed irritable difficulty trusting others. The patient was started gradually on Trintellix for depression and Risperdal for significant paranoia thinking at times that people and staff or plotting against her and intentionally trying to harm her . There was reality based difficulty with some the other patients on the unit being agitated paranoid and at times intrusive that could become triggering to the the patient. She did need a room change a couple of occasions regarding this issue. Lot of Education was held with patient her son and her regarding her treatment and possibility of ECT treatment for treatment resistant depression with psychotic features that had not responded on any regular basis the patient showed minimal response to medication and eventually consented to ECT. She did have at 1 point a full on a weekend and head CT scan was unremarkable. Brain MRI had also been unremarkable. Patient gradually prior to ECT became significantly more alert less confused was able to process and track information on much improved basis. The patient had a total course of 7 right unilateral treatments with a pulse with 0.25 program 80 mg Brevital 80 mg succinylcholine. She was much improved by the time of discharge. Plan was to transition to outpatient ECT. There was no longer paranoia Patient was future oriented alert much less depressed some flattening noted more hopeful no significant confusion delirium had resolved difficulty for memories during the period of time she had been initially medically hospitalized prior to being admitted to psychiatric unit. Medically of note patient did have a small footdrop no obvious cause prior CT scan and MRI were not helpful regarding this. Neurology recommended outpatient follow-up and nerve conduction testing. Patient initially also had been treated for hypertension her medications were regulated during hospital stay. She seemed tolerate the combination of psychiatric medication. Patient and felt comfortable to continue in outpatient treatment she was initially on the psychiatric unit requiring a walker she was walking more independently by the time of discharge. She was referred for outpatient physical rehab and follow up with her medical provider and psychiatric follow-up with this conventional mortgage underwriter Dr. Shearer and for outpatient ECT she certainly had had a long episode of deconditioning both during the initial medical hospitalization and prior to being admitted medically she had been spending lot of time in bed with inadequate nutritional intake Time Spent with Patient Time attestation: Total time managing care of this patient today ____ minutes. Discharge Plan Discharge Anticipated Discharge Date/Time: 11/04/23 11:30 Patient Disposition: Home, Self-Care Discharge Diagnosis: major depression recurrent s/p delirium Referrals: Guillermina Riggs, PhD [Other] - 11/10/23 3:00 pm (Your next virtual therapy appointment is scheduled for 11/10/23 at 3PM.) [facility] [Other] - 3-5 Days (Your PCP provided referral and prescription for PT and [facility] to contact you with start date appointment. ) [facility] Outpatient [facility]CT [Other] - 11/06/23 6:30 am (Outpatient ECT as scheduled per ECT program. Your next ECT will be on Thursday11/06/23.) Dr Francis [Other] - 11/13/23 10:15 am (Request for referral for PT through PCP's office per [facility] PT was made.) Yovany Shearer MD [Physician] - 11/10/23 11:00 am Discharge Medications: New olanzapine 2.5 mg Tablet 2.5 mg PO BEDTIME 30 Days Qty: 30 0RF lisinopril 5 mg Tablet 15 mg PO DAILY 30 Days Qty: 90 0RF Protocol: Hold for SBP< HOLD for SBP < : 90 bupropion HCl 150 mg Tablet Extended Release 24 Hr 150 mg PO DAILY Qty: 30 3RF Trintellix 10 mg Tablet 10 mg PO DAILY Qty: 30 2RF lorazepam 0.5 mg Tablet 0.5 mg PO Q8H PRN (Reason: Anxiety) Qty: 30 1RF brimonidine 0.2 % Drops 1 drp ophthalmic (eye) BID Qty: 10 0RF Continued multivitamin [Daily-Dara] Tablet 1 tab PO DAILY 30 Days Qty: 30 0RF ascorbic acid (vitamin C) [Vitamin C] 500 mg Tablet 2,000 mg PO BEDTIME 30 Days Qty: 120 0RF tamsulosin 0.4 mg Capsule 0.4 mg PO DAILY Qty: 30 0RF fluticasone propionate 50 mcg/actuation spray,suspension 1 spray intranasal BID omeprazole 20 mg Capsule,Delayed Release(Dr/Ec) 20 mg PO DAILY@0630 Qty: 30 0RF melatonin 3 mg Tablet 6 mg PO BEDTIME PRN (Reason: Insomnia) Qty: 20 0RF Discontinued amlodipine 5 mg tablet 10 mg PO DAILY propranolol 20 mg tablet 20 mg PO BID sulfamethoxazole-trimethoprim 800-160 mg Tablet 1 tab PO Q12H Qty: 12 0RF moxifloxacin 0.5 % Drops 1 drp ophthalmic (eye) BID Qty: 3 0RF bupropion HCl 75 mg Tablet 75 mg PO DAILY Qty: 1 0RF risperidone 0.25 mg Tablet 0.25 mg PO BID Qty: 30 0RF lisinopril 5 mg Tablet 15 mg PO DAILY Qty: 30 0RF Protocol: Hold for SBP< HOLD for SBP < : 90 Trintellix 5 mg Tablet 5 mg PO DAILY Qty: 7 0RF No Action amlodipine 5 mg tablet 5 mg PO DAILY Qty: 30 0RF Protocol: Hold for SBP< HOLD for SBP < : 90 Discharge Orders: Discharge Order (Routine); Ordered 09/28/23 Ordered By: Yovany Shearer Diet: Advance to usual diet Activity on Discharge: As tolerated Stand Alone Forms: Patient Portal Discharge page, Community Support Activity Restrictions/Additional Instructions: NEXT ECT 11/06 THEN 11/11/23 Care Plan Goals: STABILIZE MOOD MAINTAIN FUNCTIONING CLEAR COGNITION IMPROVE STRENGTH AMBULATION Health Concerns: HYPERTENSION RECURRENT DEPRESSION FOOT DROP RECENT DELIRIUM UNCLEAR ETIOLOGY Plan of Treatment: PHYSICAL THERAPY ECT MEDICATION PSYCHOTHERAPY Assessment: MUCH IMPROVED CLEAR COGNITION EUTHYMIC ALERT AMBULATING INDEPENDANTLY Discharge Date/Time: 11/04/23 11:23
== END 2023-11-04 11:23 | disposition home or self-care (01) | DRG 885 ==
PROVIDERS: Psychiatry & Neurology Psychiatry; Social Worker; Admitting Provider Psychiatry & Neurology Psychiatry; Visit Provider Psychiatry & Neurology Psychiatry
PROC: GZB4ZZZ Other Electroconvulsive Therapy (ICD-10-PCS; CPT 90870; principal; 2023-10-14 14:00)
DX: F33.2 Major depressive disorder, recurrent severe without psychotic features (principal); F90.9 Attention-deficit hyperactivity disorder, unspecified type; R13.10 Dysphagia, unspecified; I10 Essential (primary) hypertension; M21.371 Foot drop, right foot; F41.1 Generalized anxiety disorder; R41.0 Disorientation, unspecified; Z23 Encounter for immunization; Z20.822 Contact with and (suspected) exposure to COVID-19; Z87.891 Personal history of nicotine dependence; Z79.899 Other long term (current) drug therapy
CPT/HCPCS: 0241U; 36415; 70450; 73600; 73620; 80053; 80061; 82565; 85025; 87635; 90686; 90870; 93005; 93970; 97110; 97116; 97161; 97530; J0330; J2405; J2704

== ENCOUNTER → 2023-09-28 13:04 | Outpatient (BNV) | payer MEDICARE, SELFPAY | PROVIDERS: Admitting Provider Psychiatry & Neurology Psychiatry; Visit Provider Psychiatry & Neurology Psychiatry | DX: F31.81 Bipolar II disorder (principal); R41.0 Disorientation, unspecified; I10 Essential (primary) hypertension; R13.10 Dysphagia, unspecified | CPT/HCPCS: 90792; 90870; 99231; 99232 ==

== ENCOUNTER → 2023-09-28 13:04 | Outpatient (BNV) | payer MEDICARE, SELFPAY | PROVIDERS: Admitting Provider Psychiatry & Neurology Psychiatry; Visit Provider Psychiatry & Neurology Psychiatry | DX: F33.2 Major depressive disorder, recurrent severe without psychotic features (principal); I10 Essential (primary) hypertension; R13.10 Dysphagia, unspecified; R41.0 Disorientation, unspecified | CPT/HCPCS: 90870; 99231; 99232; 99239; 99499 ==

== ENCOUNTER → 2023-09-28 13:04 | Outpatient (BNV) | payer MEDICARE, SELFPAY | PROVIDERS: Admitting Provider Psychiatry & Neurology Psychiatry; Visit Provider Student in an Organized Health Care Education/Training Program | DX: R26.81 Unsteadiness on feet (principal); M79.672 Pain in left foot | CPT/HCPCS: 99231; 99429; 99499 ==

== ENCOUNTER 2023-11-06 06:00 | Day surgery (SDC) | payer MEDICARE, SELFPAY ==
[2023-11-06] VITALS (7 sets, daily range): BP systolic 129–178; BP diastolic 59–79; PULSE 94–99; RESP 16–20; TEMP 36.8–36.9; O2SAT 96–100; BMI 20.2
--- NOTE | 2023-11-06 06:56 | HO.ANESPROP2 ---
[facility] Active Problems Active Problems: All Active Problems (Updated 10/16/23 @ 13:45 by Lucia Garcia MD) Footdrop (Acute) Major depressive disorder, recurrent severe without psychotic features (Acute) Personality disorder (Acute) Organic catatonia (Acute) Abnormal EKG (Acute) Odynophagia (Acute) Paranoia (Acute) Dysphagia (Acute) Serotonin syndrome (Acute) Ataxia (Acute) Tremors of nervous system (Acute) Major depression in full remission (Acute) Depression, major, severe recurrence (Acute) Memory deficit (Acute) ADHD (attention deficit hyperactivity disorder) (Acute) ZAC (generalized anxiety disorder) (Acute) Depression (Acute) Pre-op evaluation (Acute) Acute bacterial conjunctivitis of both eyes (Acute) Hypercalcemia (Acute) Hypothyroidism (Acute) Leukocytosis (Acute) Hypertension (Chronic) Past Medical History Medical History Urinary tract infection Depression Hypothyroidism ZAC (generalized anxiety disorder) Hypertension ADHD (attention deficit hyperactivity disorder) Family History Family History Other No pertinent family history Family history of problems with anesthesia: No Surgical History Surgical History H/O thumb surgery H/O cone biopsy of cervix History of Problems with Anesthesia: No Social History Social History Household Members: Spouse Household Members Other:: And two cats. Housing: House Do you presently have visiting nurse or other home services: No Unable to assess alcohol history related to: Unknown Alcohol intake: never Patient Tobacco Use Status: Former Tobacco user Quit Date: 20 years agp Tobacco use type: Cigarette Years Smoked: 20 e-Cigarette/Vaping Use: Never Used Second Hand Smoke Exposure: No Substance Use Type: Former Substance User and Marijuana Advance Directives: No Advance Directives Information Provided: Yes service: No Sexual orientation: Straight/Heterosexual Meds Allergies Allergy/AdvReac Type Severity Reaction Status Date / Time No Known Allergies Allergy Verified 08/27/23 10:27 Home Medications Medication Instructions Recorded Confirmed Last Taken Type fluticasone propionate 50 1 spray intranasal BID 08/27/23 08/27/23 Unknown History mcg/actuation nasal spray,suspension Exam Height,Weight and Vital Signs: Height 5 ft 1 in Weight 48.534 kg Last Vital Signs Temp 98.2 F 11/06/23 06:26 Pulse 94 11/06/23 06:26 Resp 16 11/06/23 06:26 BP 166/79 H 11/06/23 06:26 Pulse Ox 98 11/06/23 06:26 O2 Del Method Room Air 11/06/23 06:26 Airway Mallampati Class: II TM Dist: >3cm Neck ROM: Full Heart: rrr Lungs: cta Assessment and Plan Assessment Anesthesia Assessment: Anesthesia Plan Discussed and Chart Reviewed Final Anesthetic Review Family History of Problems with Anesthesia: No History of Problems with Anesthesia: No ASA Class: III Final Preanesthetic Review: No Changes in Pt Med Stat, Meds/Allgs Chart Reviewed and Consent Obtained/Reviewed Patient Risk: Intermediate Procedure Risk: Intermediate Anesthetic Plan Anesthetic Plan: GA Disposition: Standard PACU
--- NOTE | 2023-11-06 07:17 | MHC.SHP ---
Pre-Procedural Eval Section A Date of Service: 11/06/23 The patient is an INPATIENT: No Changes since office visit: Yes Changes in Medication and Yes Patient answered all questions; No Cold of Flu in the past 2 weeks and No New Medical Problems The History & Physical has been completed within 30 days and I have reviewed it.: Yes Section B Chief Complaint: depression Allergies: Allergies Allergy/AdvReac Type Severity Reaction Status Date / Time No Known Allergies Allergy Verified 08/27/23 10:27 Plan I have reviewed the history and physical and performed a pertinent physical examination on my patient. No changes have occurred unless specified. Time Spent With Patient Time: Total time managing care of this patient today ____ minutes.
--- NOTE | 2023-11-06 07:18 | HO.ECTPROC ---
ECT Procedure Note Diagnosis/Treatment Date of Service: 11/06/23 Diagnosis: Major Depressive Disorder Previous ECT Date: 11/04/23 Current Treatment Number: 8 Treatment: Series Interval Clinical Notes: Patient discharged 2 days ago feeling much more like herself no significant difficulties with ECT future oriented no cognitive impairment noted Time: Total time managing care of this patient today __30__ minutes. ECT Settings Device: THYMATRON DGx Electrode Placement: Right Unilateral Program/Pulse Width: 0.25 Energy Percent: 100 Seizure Duration By EEG (in seconds): 27 Medications Administration General Anesthetic: Methohexital (80) Muscle Relaxant: Succinylcholine (80) Ancillary Medications Anti-emetics: Zofran - Pre ECT Miscillaneous Medications: Propofol (20) Airway Management Airway Management: Bag Mask Ventilation Treatment Recommendations Electrode Placement: Right Unilateral Notes: tolerated well hyperventilate Pt Tolerated Procedure w/o Issue: Yes
[2023-11-06] MEDS: Scopolamine 1.5 MG PATCH.TD.3 TRANSDERMA (07:20)
== END 2023-11-06 08:50 | disposition home or self-care (01) ==
PROVIDERS: Visit Provider Psychiatry & Neurology Psychiatry
PROC: (CPT 90870; principal; 2023-11-06 07:30)
DX: F31.81 Bipolar II disorder (principal); F41.1 Generalized anxiety disorder; F90.9 Attention-deficit hyperactivity disorder, unspecified type; I10 Essential (primary) hypertension; G25.0 Essential tremor; E03.9 Hypothyroidism, unspecified; Z87.891 Personal history of nicotine dependence; Z79.899 Other long term (current) drug therapy
CPT/HCPCS: 90870; J0330; J2405; J2704

== ENCOUNTER → 2023-11-06 06:00 | Outpatient (BNV) | payer MEDICARE, SELFPAY | PROVIDERS: Visit Provider Psychiatry & Neurology Psychiatry | DX: F33.3 Major depressive disorder, recurrent, severe with psychotic symptoms (principal) | CPT/HCPCS: 90870 ==

== ENCOUNTER → 2023-11-10 10:53 | Outpatient (BNVA) | payer MEDICARE, SELFPAY | PROVIDERS: Visit Provider Psychiatry & Neurology Psychiatry ==

== ENCOUNTER 2023-11-11 05:53 | Day surgery (SDC) | payer MEDICARE, SELFPAY ==
[2023-11-11 06:40] VITALS: BP 158/83; PULSE 97; RESP 16; TEMP 37.4; O2SAT 96; BMI 20.8
[2023-11-11] MEDS: Scopolamine 1.5 MG PATCH.TD.3 EAR-BEHIND (06:58)
--- NOTE | 2023-11-11 07:57 | MHC.SHP ---
Pre-Procedural Eval Section A Date of Service: 11/11/23 The patient is an INPATIENT: No Changes since office visit: Yes Changes in Medication and Yes Patient answered all questions; No Cold of Flu in the past 2 weeks and No New Medical Problems The History & Physical has been completed within 30 days and I have reviewed it.: Yes Section B Chief Complaint: depression Allergies: Allergies Allergy/AdvReac Type Severity Reaction Status Date / Time No Known Allergies Allergy Verified 08/27/23 10:27 Plan I have reviewed the history and physical and performed a pertinent physical examination on my patient. No changes have occurred unless specified. Time Spent With Patient Time: Total time managing care of this patient today ____ minutes.
--- NOTE | 2023-11-11 08:10 | HO.ECTPROC ---
ECT Procedure Note Diagnosis/Treatment Date of Service: 11/12/23 Diagnosis: Major Depressive Disorder Previous ECT Date: 11/06/23 Current Treatment Number: 8 Treatment: Series Interval Clinical Notes: pt doing better seems much more like herself no side effects noted with ECT Time: Total time managing care of this patient today 30____ minutes. ECT Settings Device: THYMATRON DGx Electrode Placement: Right Unilateral Program/Pulse Width: 0.25 Energy Percent: 100 Seizure Duration By EEG (in seconds): 21 Medications Administration General Anesthetic: Methohexital (80) Muscle Relaxant: Succinylcholine (80) Ancillary Medications Anti-emetics: Zofran - Pre ECT Miscillaneous Medications: Propofol (20) Airway Management Airway Management: Bag Mask Ventilation Treatment Recommendations Electrode Placement: Right Unilateral Notes: tolerated well hyperventilate Pt Tolerated Procedure w/o Issue: Yes
--- NOTE | 2023-11-11 08:14 | P.CONAN_ITS ---
[facility] Active Problems Active Problems: All Active Problems (Updated 10/16/23 @ 13:45 by Lucia Garcia MD) Footdrop (Acute) Major depressive disorder, recurrent severe without psychotic features (Acute) Personality disorder (Acute) Organic catatonia (Acute) Abnormal EKG (Acute) Odynophagia (Acute) Paranoia (Acute) Dysphagia (Acute) Serotonin syndrome (Acute) Ataxia (Acute) Tremors of nervous system (Acute) Major depression in full remission (Acute) Depression, major, severe recurrence (Acute) Memory deficit (Acute) ADHD (attention deficit hyperactivity disorder) (Acute) ZAC (generalized anxiety disorder) (Acute) Depression (Acute) Pre-op evaluation (Acute) Acute bacterial conjunctivitis of both eyes (Acute) Hypercalcemia (Acute) Hypothyroidism (Acute) Leukocytosis (Acute) Hypertension (Chronic) Past Medical History Medical History Urinary tract infection Depression Hypothyroidism ZAC (generalized anxiety disorder) Hypertension ADHD (attention deficit hyperactivity disorder) Family History Family History Other No pertinent family history Family history of problems with anesthesia: No Surgical History Surgical History H/O thumb surgery H/O cone biopsy of cervix History of Problems with Anesthesia: No Social History Social History Household Members: Spouse Household Members Other:: And two cats. Housing: House Do you presently have visiting nurse or other home services: No Unable to assess alcohol history related to: Unknown Alcohol intake: never Patient Tobacco Use Status: Former Tobacco user Quit Date: 20 years agp Tobacco use type: Cigarette Years Smoked: 20 e-Cigarette/Vaping Use: Never Used Second Hand Smoke Exposure: No Substance Use Type: Former Substance User and Marijuana Advance Directives: No Advance Directives Information Provided: Yes service: No Sexual orientation: Straight/Heterosexual Meds Allergies Allergy/AdvReac Type Severity Reaction Status Date / Time No Known Allergies Allergy Verified 08/27/23 10:27 Home Medications Medication Instructions Recorded Confirmed Last Taken Type fluticasone propionate 50 1 spray intranasal BID 08/27/23 08/27/23 Unknown History mcg/actuation nasal spray,suspension Exam Height,Weight and Vital Signs: Height 5 ft 1 in Weight 49.895 kg Last Vital Signs Temp 99.4 F 11/11/23 06:40 Pulse 97 11/11/23 06:40 Resp 16 11/11/23 06:40 BP 158/83 H 11/11/23 06:40 Pulse Ox 96 11/11/23 06:40 O2 Del Method Room Air 11/11/23 06:40 Airway Mallampati Class: II TM Dist: >3cm Neck ROM: Full Assessment and Plan Assessment Anesthesia Assessment: Anesthesia Plan Discussed and Chart Reviewed Final Anesthetic Review Family History of Problems with Anesthesia: No History of Problems with Anesthesia: No NPO: Yes ASA Class: III Final Preanesthetic Review: No Changes in Pt Med Stat, Meds/Allgs Chart Reviewed, Consent Obtained/Reviewed and Anes Risks/Benef Reviewed Patient Risk: Intermediate Procedure Risk: Intermediate Anesthetic Plan Anesthetic Plan: GA Disposition: Standard PACU
--- NOTE | 2023-11-11 08:14 | HO.POSTANES ---
Post Anesthesia Evaluation Post Anesthesia Evaluation Date of Service: 11/11/23 Vital Signs: Vital Signs Temp Pulse Resp BP Pulse Ox O2 Del Method 11/11/23 06:40 99.4 F 97 16 158/83 H 96 Room Air
[2023-11-11 08:22] VITALS: BP 123/69; PULSE 100; RESP 20; TEMP 36.6; O2SAT 96
[2023-11-11 08:27] VITALS: BP 128/71; PULSE 103; RESP 20; O2SAT 98
[2023-11-11 08:32] VITALS: BP 131/73; PULSE 95; RESP 20; O2SAT 97
[2023-11-11 08:37] VITALS: BP 135/72; PULSE 96; RESP 20; O2SAT 97
[2023-11-11 08:52] VITALS: BP 157/77; PULSE 157; RESP 16; TEMP 36.6; O2SAT 96
== END 2023-11-11 09:33 | disposition home or self-care (01) ==
PROVIDERS: Visit Provider Psychiatry & Neurology Psychiatry
PROC: (CPT 90870; principal; 2023-11-11 08:00)
DX: F31.81 Bipolar II disorder (principal); F41.1 Generalized anxiety disorder; F90.9 Attention-deficit hyperactivity disorder, unspecified type; I10 Essential (primary) hypertension; G25.0 Essential tremor; E03.9 Hypothyroidism, unspecified; Z79.899 Other long term (current) drug therapy; Z79.51 Long term (current) use of inhaled steroids; Z87.891 Personal history of nicotine dependence
CPT/HCPCS: 90870; J0330; J2405

== ENCOUNTER → 2023-11-11 05:53 | Outpatient (BNV) | payer MEDICARE, SELFPAY | PROVIDERS: Visit Provider Psychiatry & Neurology Psychiatry | DX: F33.3 Major depressive disorder, recurrent, severe with psychotic symptoms (principal) | CPT/HCPCS: 90870 ==

== ENCOUNTER 2023-11-20 06:04 | Day surgery (SDC) | payer MEDICARE, SELFPAY ==
[2023-11-20 06:34] VITALS: BP 166/78; PULSE 87; RESP 16; TEMP 36.9; O2SAT 96; BMI 21.2
--- NOTE | 2023-11-20 06:49 | HO.ANESPROP2 ---
[facility] Active Problems Active Problems: All Active Problems (Updated 11/12/23 @ 00:03 by Juliana German) Footdrop (Acute) Major depressive disorder, recurrent severe without psychotic features (Acute) Personality disorder (Acute) Organic catatonia (Acute) Abnormal EKG (Acute) Odynophagia (Acute) Paranoia (Acute) Dysphagia (Acute) Serotonin syndrome (Acute) Ataxia (Acute) Tremors of nervous system (Acute) Major depression in full remission (Acute) Memory deficit (Acute) ADHD (attention deficit hyperactivity disorder) (Acute) ZAC (generalized anxiety disorder) (Acute) Depression (Acute) Acute bacterial conjunctivitis of both eyes (Acute) Hypercalcemia (Acute) Hypothyroidism (Acute) Leukocytosis (Acute) Hypertension (Chronic) Past Medical History Medical History Urinary tract infection Depression Hypothyroidism ZAC (generalized anxiety disorder) Hypertension ADHD (attention deficit hyperactivity disorder) Family History Family History Other No pertinent family history Family history of problems with anesthesia: No Surgical History Surgical History H/O thumb surgery H/O cone biopsy of cervix History of Problems with Anesthesia: No Social History Social History Household Members: Spouse Household Members Other:: And two cats. Housing: House Do you presently have visiting nurse or other home services: No Unable to assess alcohol history related to: Unknown Alcohol intake: never Patient Tobacco Use Status: Former Tobacco user Quit Date: 20 years agp Tobacco use type: Cigarette Years Smoked: 20 e-Cigarette/Vaping Use: Never Used Second Hand Smoke Exposure: No Substance Use Type: Former Substance User and Marijuana Advance Directives: No Advance Directives Information Provided: Yes service: No Sexual orientation: Straight/Heterosexual Meds Allergies Allergy/AdvReac Type Severity Reaction Status Date / Time No Known Allergies Allergy Verified 08/27/23 10:27 Home Medications Medication Instructions Recorded Confirmed Last Taken Type fluticasone propionate 50 1 spray intranasal BID 08/27/23 08/27/23 Unknown History mcg/actuation nasal spray,suspension Exam Height,Weight and Vital Signs: Height 5 ft 1 in Weight 50.802 kg Last Vital Signs Temp 98.5 F 11/20/23 06:34 Pulse 87 11/20/23 06:34 Resp 16 11/20/23 06:34 BP 166/78 H 11/20/23 06:34 Pulse Ox 96 11/20/23 06:34 O2 Del Method Room Air 11/20/23 06:34 Airway Mallampati Class: II TM Dist: >3cm Neck ROM: Full Heart: rrr Lungs: cta Assessment and Plan Assessment Anesthesia Assessment: Anesthesia Plan Discussed and Chart Reviewed Final Anesthetic Review Family History of Problems with Anesthesia: No History of Problems with Anesthesia: No NPO: Yes ASA Class: III Final Preanesthetic Review: No Changes in Pt Med Stat, Meds/Allgs Chart Reviewed and Consent Obtained/Reviewed Patient Risk: Intermediate Procedure Risk: Intermediate Anesthetic Plan Anesthetic Plan: GA Disposition: Standard PACU
--- NOTE | 2023-11-20 07:11 | MHC.SHP ---
Pre-Procedural Eval Section A Date of Service: 11/20/23 The patient is an INPATIENT: No Changes since office visit: No Cold of Flu in the past 2 weeks, No New Medical Problems, No Changes in Medication and No Patient answered all questions The History & Physical has been completed within 30 days and I have reviewed it.: Yes Section B Chief Complaint: depression Allergies: Allergies Allergy/AdvReac Type Severity Reaction Status Date / Time No Known Allergies Allergy Verified 08/27/23 10:27 Plan I have reviewed the history and physical and performed a pertinent physical examination on my patient. No changes have occurred unless specified. Time Spent With Patient Time: Total time managing care of this patient today ____ minutes.
--- NOTE | 2023-11-20 07:31 | HO.ECTPROC ---
ECT Procedure Note Diagnosis/Treatment Date of Service: 11/20/23 Diagnosis: Major Depressive Disorder Previous ECT Date: 11/11/23 Treatment: Maintenance Interval Clinical Notes: The patient reported stable mood, her dysphoria has improved remarkably. No side effects with previous ECT. ECT done as usual, no complications, woke up well Time: Total time managing care of this patient today __30__ minutes. ECT Settings Device: THYMATRON DGx Electrode Placement: Right Unilateral Program/Pulse Width: 0.25 Energy Percent: 100 Seizure Duration By EEG (in seconds): 25 By Motor Observation (in seconds): 14 Medications Administration General Anesthetic: Methohexital (80) Muscle Relaxant: Succinylcholine (100) Ancillary Medications Analgesics: Torodol - Pre ECT Anti-emetics: Zofran - Pre ECT Miscillaneous Medications: Propofol and Other (escopolamine patch) Airway Management Airway Management: Bag Mask Ventilation Treatment Recommendations Pt Tolerated Procedure w/o Issue: Yes
[2023-11-20 07:33] VITALS: BP 127/70; PULSE 93; RESP 16; TEMP 36.7; O2SAT 97
[2023-11-20 07:38] VITALS: BP 119/73; PULSE 94; RESP 20; O2SAT 96
[2023-11-20 07:43] VITALS: BP 152/78; PULSE 91; RESP 21; O2SAT 98
[2023-11-20 07:48] VITALS: BP 148/79; PULSE 94; RESP 15; O2SAT 98
[2023-11-20 08:03] VITALS: BP 165/87; PULSE 87; RESP 16; TEMP 36.7; O2SAT 97
== END 2023-11-20 08:30 | disposition home or self-care (01) ==
PROVIDERS: Visit Provider Psychiatry & Neurology Psychiatry
PROC: (CPT 90870; principal; 2023-11-20 07:30)
DX: F31.81 Bipolar II disorder (principal); F41.1 Generalized anxiety disorder; I10 Essential (primary) hypertension; G25.0 Essential tremor; E03.9 Hypothyroidism, unspecified; F90.9 Attention-deficit hyperactivity disorder, unspecified type; Z79.51 Long term (current) use of inhaled steroids; Z79.899 Other long term (current) drug therapy; F19.91 Other psychoactive substance use, unspecified, in remission; Z87.891 Personal history of nicotine dependence
CPT/HCPCS: 90870; J0330; J2405; J2704

== ENCOUNTER → 2023-11-20 06:04 | Outpatient (BNV) | payer MEDICARE, SELFPAY | PROVIDERS: Visit Provider Psychiatry & Neurology Psychiatry | DX: F33.3 Major depressive disorder, recurrent, severe with psychotic symptoms (principal) | CPT/HCPCS: 90870 ==

== ENCOUNTER 2023-11-27 05:51 | Day surgery (SDC) | payer MEDICARE, SELFPAY ==
[2023-11-27] VITALS (7 sets, daily range): BP systolic 119–163; BP diastolic 58–73; PULSE 82–90; RESP 14–20; TEMP 36.6–36.8; O2SAT 96–98; BMI 21.2
--- NOTE | 2023-11-27 06:41 | P.CONAN_ITS ---
[facility] Active Problems Active Problems: All Active Problems (Updated 11/12/23 @ 00:03 by Juliana German) Footdrop (Acute) Major depressive disorder, recurrent severe without psychotic features (Acute) Personality disorder (Acute) Organic catatonia (Acute) Abnormal EKG (Acute) Odynophagia (Acute) Paranoia (Acute) Dysphagia (Acute) Serotonin syndrome (Acute) Ataxia (Acute) Tremors of nervous system (Acute) Major depression in full remission (Acute) Memory deficit (Acute) ADHD (attention deficit hyperactivity disorder) (Acute) ZAC (generalized anxiety disorder) (Acute) Depression (Acute) Acute bacterial conjunctivitis of both eyes (Acute) Hypercalcemia (Acute) Hypothyroidism (Acute) Leukocytosis (Acute) Hypertension (Chronic) Past Medical History Medical History Urinary tract infection Depression Hypothyroidism ZAC (generalized anxiety disorder) Hypertension ADHD (attention deficit hyperactivity disorder) Family History Family History Other No pertinent family history Family history of problems with anesthesia: No Surgical History Surgical History H/O thumb surgery H/O cone biopsy of cervix History of Problems with Anesthesia: No Social History Social History Household Members: Spouse Household Members Other:: And two cats. Housing: House Do you presently have visiting nurse or other home services: No Unable to assess alcohol history related to: Unknown Alcohol intake: never Patient Tobacco Use Status: Former Tobacco user Quit Date: 20 years [facility] Tobacco use type: Cigarette Years Smoked: 20 e-Cigarette/Vaping Use: Never Used Second Hand Smoke Exposure: No Substance Use Type: Former Substance User and Marijuana Advance Directives: No Advance Directives Information Provided: Yes service: No Sexual orientation: Straight/Heterosexual Meds Allergies Allergy/AdvReac Type Severity Reaction Status Date / Time No Known Allergies Allergy Verified 08/27/23 10:27 Active Medications: Current Medications Lactated Ringer's (Lr) 1,000 mls @ 50 mls/hr IVCONT .Q20H NORBERTO Scopolamine (Scopolamine 1.5 Mg Patch.Td.3) 1.5 mg TRANSDERMA PREOP ONE Stop: 11/27/23 06:42 Home Medications Medication Instructions Recorded Confirmed Last Taken Type fluticasone propionate 50 1 spray intranasal BID 08/27/23 08/27/23 Unknown History mcg/actuation nasal spray,suspension Exam Height,Weight and Vital Signs: Height 5 ft 1 in Weight 50.802 kg Last Vital Signs Temp 98.2 F 11/27/23 06:17 Pulse 88 11/27/23 06:17 Resp 16 11/27/23 06:17 BP 163/73 H 11/27/23 06:17 Pulse Ox 98 11/27/23 06:17 O2 Del Method Room Air 11/27/23 06:17 Airway Mallampati Class: II TM Dist: >3cm Neck ROM: Full Heart: rrr Lungs: cta Assessment and Plan Assessment Anesthesia Assessment: Anesthesia Plan Discussed and Chart Reviewed Final Anesthetic Review Family History of Problems with Anesthesia: No History of Problems with Anesthesia: No NPO: Yes ASA Class: III Final Preanesthetic Review: No Changes in Pt Med Stat, Meds/Allgs Chart Reviewed and Consent Obtained/Reviewed Patient Risk: Intermediate Procedure Risk: Intermediate Anesthetic Plan Anesthetic Plan: GA Disposition: Standard PACU
[2023-11-27] MEDS: Scopolamine 1.5 MG PATCH.TD.3 TRANSDERMA (06:42)
[2023-11-27] MEDS: Lactated Ringers 1,000 ML 50 ML IVCONT (06:42)
--- NOTE | 2023-11-27 07:06 | MHC.SHP ---
Pre-Procedural Eval Section A Date of Service: 11/27/23 The patient is an INPATIENT: No Changes since office visit: No Cold of Flu in the past 2 weeks, No New Medical Problems, No Changes in Medication and No Patient answered all questions The History & Physical has been completed within 30 days and I have reviewed it.: Yes Section B Chief Complaint: depression Allergies: Allergies Allergy/AdvReac Type Severity Reaction Status Date / Time No Known Allergies Allergy Verified 08/27/23 10:27 Plan I have reviewed the history and physical and performed a pertinent physical examination on my patient. No changes have occurred unless specified. Time Spent With Patient Time: Total time managing care of this patient today ____ minutes.
--- NOTE | 2023-11-27 07:19 | HO.ECTPROC ---
ECT Procedure Note Diagnosis/Treatment Date of Service: 11/27/23 Diagnosis: Bipolar disorder Previous ECT Date: 11/20/23 Treatment: Maintenance Interval Clinical Notes: The patient reports euthymia. No side effects with the previous ECT. ECT mir as usual, no complications. Woke up well. Time: Total time managing care of this patient today __30__ minutes. ECT Settings Device: THYMATRON DGx Electrode Placement: Right Unilateral Program/Pulse Width: 0.25 Energy Percent: 100 Seizure Duration By EEG (in seconds): 68 By Motor Observation (in seconds): 18 Medications Administration General Anesthetic: Methohexital (80) Muscle Relaxant: Succinylcholine (80) Ancillary Medications Anti-emetics: Zofran - Pre ECT Miscillaneous Medications: Propofol and Other (Escopolamine patch) Airway Management Airway Management: Bag Mask Ventilation Treatment Recommendations No Changes Recommended: No change Pt Tolerated Procedure w/o Issue: Yes
--- NOTE | 2023-11-27 07:23 | HO.ECTPROC ---
ECT Procedure Note Diagnosis/Treatment Date of Service: 11/27/23 Diagnosis: Bipolar disorder Previous ECT Date: 11/20/23 Treatment: Maintenance Interval Clinical Notes: The patient reported euthymia. No side effects with the previuos ECT ECT done as usual, no complications, woke up well Time: Total time managing care of this patient today ____ minutes. ECT Settings Device: THYMATRON DGx Electrode Placement: Right Unilateral Program/Pulse Width: 0.25 Energy Percent: 100 Seizure Duration By EEG (in seconds): 68 By Motor Observation (in seconds): 16 Medications Administration General Anesthetic: Methohexital (80) Muscle Relaxant: Succinylcholine (80) Ancillary Medications Anti-emetics: Zofran - Pre ECT Miscillaneous Medications: Propofol and Other (Escopolamine patch) Airway Management Airway Management: Bag Mask Ventilation Treatment Recommendations No Changes Recommended: No change Pt Tolerated Procedure w/o Issue: Yes
== END 2023-11-27 08:35 | disposition home or self-care (01) ==
PROVIDERS: Visit Provider Psychiatry & Neurology Psychiatry
PROC: (CPT 90870; principal; 2023-11-27 08:00)
DX: F33.2 Major depressive disorder, recurrent severe without psychotic features (principal); F41.1 Generalized anxiety disorder; I10 Essential (primary) hypertension; G25.0 Essential tremor; E03.9 Hypothyroidism, unspecified; F90.9 Attention-deficit hyperactivity disorder, unspecified type; Z79.51 Long term (current) use of inhaled steroids; Z79.899 Other long term (current) drug therapy; F19.91 Other psychoactive substance use, unspecified, in remission; Z87.891 Personal history of nicotine dependence
CPT/HCPCS: 90870; J0330; J2405; J2704

== ENCOUNTER → 2023-11-27 05:51 | Outpatient (BNV) | payer MEDICARE, SELFPAY | PROVIDERS: Visit Provider Psychiatry & Neurology Psychiatry | DX: F31.9 Bipolar disorder, unspecified (principal) | CPT/HCPCS: 90870 ==

== ENCOUNTER 2023-12-04 07:35 | Day surgery (SDC) | payer MEDICARE, SELFPAY ==
[2023-12-04 08:24] VITALS: BMI 21.2
[2023-12-04 08:25] VITALS: BP 145/78; PULSE 94; RESP 16; TEMP 36.5; O2SAT 97
--- NOTE | 2023-12-04 08:33 | P.CONAN_ITS ---
[facility] Active Problems Active Problems: All Active Problems (Updated 11/29/23 @ 21:02 by Yovany Shearer MD) Delirium in remission (Acute) Major depressive disorder, recurrent, severe with psychotic features (Acute) Footdrop (Acute) Major depressive disorder, recurrent severe without psychotic features (Acute) Personality disorder (Acute) Organic catatonia (Acute) Abnormal EKG (Acute) Odynophagia (Acute) Paranoia (Acute) Dysphagia (Acute) Serotonin syndrome (Acute) Ataxia (Acute) Tremors of nervous system (Acute) Major depression in full remission (Acute) Memory deficit (Acute) ADHD (attention deficit hyperactivity disorder) (Acute) ZAC (generalized anxiety disorder) (Acute) Depression (Acute) Acute bacterial conjunctivitis of both eyes (Acute) Hypercalcemia (Acute) Hypothyroidism (Acute) Leukocytosis (Acute) Hypertension (Chronic) Past Medical History Medical History Urinary tract infection Depression Hypothyroidism ZAC (generalized anxiety disorder) Hypertension ADHD (attention deficit hyperactivity disorder) Family History Family History Other No pertinent family history Family history of problems with anesthesia: No Surgical History Surgical History H/O thumb surgery H/O cone biopsy of cervix History of Problems with Anesthesia: No Social History Social History Household Members: Spouse Household Members Other:: And two cats. Housing: House Do you presently have visiting nurse or other home services: No Unable to assess alcohol history related to: Unknown Alcohol intake: never Patient Tobacco Use Status: Former Tobacco user Quit Date: 20 years agp Tobacco use type: Cigarette Years Smoked: 20 e-Cigarette/Vaping Use: Never Used Second Hand Smoke Exposure: No Substance Use Type: Former Substance User and Marijuana Advance Directives: No Advance Directives Information Provided: Yes service: No Sexual orientation: Straight/Heterosexual Meds Allergies Allergy/AdvReac Type Severity Reaction Status Date / Time No Known Allergies Allergy Verified 08/27/23 10:27 Home Medications Medication Instructions Recorded Confirmed Last Taken Type fluticasone propionate 50 1 spray intranasal BID 08/27/23 08/27/23 Unknown History mcg/actuation nasal spray,suspension Exam Height,Weight and Vital Signs: Height 5 ft 1 in Weight 50.802 kg Last Vital Signs Temp 97.7 F 12/04/23 08:25 Pulse 94 12/04/23 08:25 Resp 16 12/04/23 08:25 BP 145/78 H 12/04/23 08:25 Pulse Ox 97 12/04/23 08:25 O2 Del Method Room Air 12/04/23 08:25 Airway Mallampati Class: II TM Dist: >3cm Neck ROM: Full Heart: rrr Lungs: cta Assessment and Plan Assessment Anesthesia Assessment: Anesthesia Plan Discussed and Chart Reviewed Final Anesthetic Review Family History of Problems with Anesthesia: No History of Problems with Anesthesia: No NPO: Yes ASA Class: III Final Preanesthetic Review: No Changes in Pt Med Stat, Meds/Allgs Chart Reviewed and Consent Obtained/Reviewed Patient Risk: Intermediate Procedure Risk: Intermediate Anesthetic Plan Anesthetic Plan: GA Disposition: Standard PACU
[2023-12-04] MEDS: Scopolamine 1.5 MG PATCH.TD.3 EAR-BEHIND (08:42)
--- NOTE | 2023-12-04 09:45 | MHC.SHP ---
Pre-Procedural Eval Section A Date of Service: 12/04/23 The patient is an INPATIENT: No Changes since office visit: No Cold of Flu in the past 2 weeks, No New Medical Problems, No Changes in Medication and No Patient answered all questions The History & Physical has been completed within 30 days and I have reviewed it.: No Section B Chief Complaint: Major depressive disorder, recurrent, severe with Details of Present Illness: pt has been stable Relevant Social History: None Present Medications: see Short Stay Collaborative assessment Allergies: Allergies Allergy/AdvReac Type Severity Reaction Status Date / Time No Known Allergies Allergy Verified 08/27/23 10:27 Review of Systems Sugical H&P ROS: Negative: Cardiovascular, Respiratory and Neurological Exam Surgical H&P Exam: Normal: Heart and Normal: Lungs Plan Diagnosis/Plan: Unchanged I have reviewed the history and physical and performed a pertinent physical examination on my patient. No changes have occurred unless specified. Time Spent With Patient Time: Total time managing care of this patient today ____ minutes.
--- NOTE | 2023-12-04 09:47 | HO.ECTPROC ---
ECT Procedure Note Diagnosis/Treatment Date of Service: 12/04/23 Diagnosis: Bipolar disorder Previous ECT Date: 11/27/23 Treatment: Maintenance Interval Clinical Notes: The patient reported euthymia. No side effects with ect feels stable off of terazosin Time: Total time managing care of this patient today ____ minutes. ECT Settings Device: THYMATRON DGx Electrode Placement: Right Unilateral Program/Pulse Width: 0.25 Energy Percent: 100 Seizure Duration By EEG (in seconds): 28 Medications Administration General Anesthetic: Methohexital (80) Muscle Relaxant: Succinylcholine (80) Ancillary Medications Anti-emetics: Zofran - Pre ECT Miscillaneous Medications: Propofol and Other (Escopolamine patch) Airway Management Airway Management: Bag Mask Ventilation Treatment Recommendations No Changes Recommended: No change Notes: doing quite well f/u tx 1 wk Pt Tolerated Procedure w/o Issue: Yes
[2023-12-04 10:01] VITALS: BP 151/67; PULSE 91; RESP 16; TEMP 36.2; O2SAT 99
[2023-12-04 10:06] VITALS: BP 130/68; PULSE 96; RESP 25; O2SAT 96
[2023-12-04 10:11] VITALS: BP 125/70; PULSE 96; RESP 16; O2SAT 97
[2023-12-04 10:16] VITALS: BP 148/73; PULSE 88; RESP 19; O2SAT 94
[2023-12-04 10:31] VITALS: BP 152/78; PULSE 91; RESP 18; TEMP 36.9; O2SAT 95
== END 2023-12-04 11:02 | disposition home or self-care (01) ==
PROVIDERS: Visit Provider Psychiatry & Neurology Psychiatry
PROC: (CPT 90870; principal; 2023-12-04 15:00)
DX: F31.81 Bipolar II disorder (principal); F41.1 Generalized anxiety disorder; F90.9 Attention-deficit hyperactivity disorder, unspecified type; G25.0 Essential tremor; I10 Essential (primary) hypertension; E03.9 Hypothyroidism, unspecified; Z79.899 Other long term (current) drug therapy; Z87.891 Personal history of nicotine dependence
CPT/HCPCS: 90870; J0330; J1596; J2405; J2704

== ENCOUNTER → 2023-12-04 07:35 | Outpatient (BNV) | payer MEDICARE, SELFPAY | PROVIDERS: Visit Provider Psychiatry & Neurology Psychiatry | DX: F33.3 Major depressive disorder, recurrent, severe with psychotic symptoms (principal) | CPT/HCPCS: 90870 ==

== ENCOUNTER 2023-12-08 17:27 | Outpatient (AMB) | payer MEDICARE, SELFPAY ==
--- NOTE | 2023-12-08 12:16 | MHC.OFFVISPS ---
Intake Intake Visit Reasons: depression Allergies No Known Allergies Allergy (Verified 08/27/23 10:27) HPI- Psychiatric Chief Complaint: depression HPI Narrative: Pt seen with h generally doing better Past Psychiatric History: -Pt sees Dr. Shearer in OP setting recent hospitalization at the [facility] Has had often on relapses over the past year and half -Remote hx of IPLOC 12 yrs ago, recent admissions at [facility] since 2020 with at least 4 admissions in the last 2 years Assessment and Plan Assessment & Plan (1) Major depressive disorder in partial remission: Status: Acute Code(s): F32.4 - Major depressive disorder, single episode, in partial remission Plan pt has been doing better with ect cont rul feeling more stable cont ect trintellix Medications: Refilled amlodipine 5 mg See Protocol PO DAILY 90 tabs 0RF lorazepam 0.5 mg PO Q8H PRN 60 tabs 1RF Anxiety vortioxetine (Trintellix) 10 mg PO DAILY 90 tabs 1RF lisinopril 15 mg See Protocol PO DAILY 90 tabs 0RF 30 days lorazepam 0.5 mg PO Q8H PRN 90 tabs 2RF Anxiety Counseling and coordination of Care Details: I spent [] minutes reviewing the record, seeing the patient and documenting in the medical record. Counseling provided to the patient/caregiver as outlined below. Addressed patient/caregiver concerns regarding current medication regime including effective adherence. Addressed patient/caregiver concerns regarding diagnosis and prognosis including accuracy of diagnosis, prognosis over time, impact of diagnosis. Addressed patient/caregiver concerns regarding impact of recent stressors. PFSH Medical History Urinary tract infection Depression Hypothyroidism ZAC (generalized anxiety disorder) Hypertension ADHD (attention deficit hyperactivity disorder) Surgical History H/O thumb surgery H/O cone biopsy of cervix Family History Other No pertinent family history Social History Household Members: Spouse Household Members Other:: And two cats. 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
== END 2023-12-08 17:28 | disposition home or self-care (01) ==
LOC: HO.HOP 17:27
PROVIDERS: Visit Provider Psychiatry & Neurology Psychiatry
DX: F32.4 Major depressive disorder, single episode, in partial remission (principal)
CPT/HCPCS: 99213

== ENCOUNTER → 2023-12-08 17:27 | Outpatient (BNVA) | payer MEDICARE, SELFPAY | PROVIDERS: Visit Provider Psychiatry & Neurology Psychiatry | DX: F32.4 Major depressive disorder, single episode, in partial remission (principal) | CPT/HCPCS: 99212 ==

== ENCOUNTER 2023-12-11 06:55 | Day surgery (SDC) | payer MEDICARE, SELFPAY ==
[2023-12-11] VITALS (7 sets, daily range): BP systolic 121–163; BP diastolic 61–81; PULSE 83–96; RESP 16; TEMP 36.4–36.8; O2SAT 96–100; BMI 23.4
--- NOTE | 2023-12-11 06:54 | P.CONAN_ITS ---
[facility] Active Problems Active Problems: All Active Problems (Updated 12/05/23 @ 00:03 by Juliana German) Delirium in remission (Acute) Major depressive disorder, recurrent, severe with psychotic features (Acute) Footdrop (Acute) Major depressive disorder, recurrent severe without psychotic features (Acute) Personality disorder (Acute) Organic catatonia (Acute) Abnormal EKG (Acute) Odynophagia (Acute) Paranoia (Acute) Dysphagia (Acute) Serotonin syndrome (Acute) Ataxia (Acute) Tremors of nervous system (Acute) Major depression in full remission (Acute) Memory deficit (Acute) ADHD (attention deficit hyperactivity disorder) (Acute) ZAC (generalized anxiety disorder) (Acute) Depression (Acute) Acute bacterial conjunctivitis of both eyes (Acute) Hypercalcemia (Acute) Hypothyroidism (Acute) Leukocytosis (Acute) Hypertension (Chronic) Past Medical History Medical History Urinary tract infection Depression Hypothyroidism ZAC (generalized anxiety disorder) Hypertension ADHD (attention deficit hyperactivity disorder) Family History Family History Other No pertinent family history Family history of problems with anesthesia: No Surgical History Surgical History H/O thumb surgery H/O cone biopsy of cervix History of Problems with Anesthesia: No Social History Social History Household Members: Spouse Household Members Other:: And two cats. Housing: House Do you presently have visiting nurse or other home services: No Unable to assess alcohol history related to: Unknown Alcohol intake: never Patient Tobacco Use Status: Former Tobacco user Quit Date: 20 years ag Tobacco use type: Cigarette Years Smoked: 20 e-Cigarette/Vaping Use: Never Used Second Hand Smoke Exposure: No Substance Use Type: Former Substance User and Marijuana service: No Sexual orientation: Straight/Heterosexual Meds Allergies Allergy/AdvReac Type Severity Reaction Status Date / Time No Known Allergies Allergy Verified 08/27/23 10:27 Active Medications: Current Medications Lactated Ringer's (Lr) 1,000 mls @ 50 mls/hr IVCONT .Q[facility]H [facility] Home Medications Medication Instructions Recorded Confirmed Last Taken Type fluticasone propionate 50 1 spray intranasal BID 08/27/23 08/27/23 Unknown History mcg/actuation nasal spray,suspension Exam Height,Weight and Vital Signs: Height 5 ft Weight 54.431 kg Last Vital Signs Temp 98.2 F 12/11/23 06:30 Pulse 84 12/11/23 06:30 Resp 16 12/11/23 06:30 BP 163/79 H 12/11/23 06:30 Pulse Ox 96 12/11/23 06:30 O2 Del Method Room Air 12/11/23 06:30 Airway Mallampati Class: II TM Dist: >3cm Neck ROM: Full Heart: rrr Lungs: cta Assessment and Plan Assessment Anesthesia Assessment: Anesthesia Plan Discussed and Chart Reviewed Final Anesthetic Review Family History of Problems with Anesthesia: No History of Problems with Anesthesia: No NPO: Yes ASA Class: III Final Preanesthetic Review: No Changes in Pt Med Stat, Meds/Allgs Chart Reviewed and Consent Obtained/Reviewed Patient Risk: Intermediate Procedure Risk: Intermediate Anesthetic Plan Anesthetic Plan: GA Disposition: Standard PACU
--- NOTE | 2023-12-11 07:01 | MHC.SHP ---
Pre-Procedural Eval Section A Date of Service: 12/11/23 The patient is an INPATIENT: No Changes since office visit: Yes Patient answered all questions; No Cold of Flu in the past 2 weeks, No New Medical Problems and No Changes in Medication The History & Physical has been completed within 30 days and I have reviewed it.: No Section B Chief Complaint: depression Details of Present Illness: recurrent depression htn ? past serotonin syndrome Relevant Social History: None Medical History: Significant History (see recent hosp) Allergies: Allergies Allergy/AdvReac Type Severity Reaction Status Date / Time No Known Allergies Allergy Verified 08/27/23 10:27 Review of Systems Sugical H&P ROS: Negative: Constitution, Cardiovascular and Respiratory and Yes, Specify: Eyes/Ears/Nose/Throat (c/o throat discomfort) Exam Surgical H&P Exam: Normal: Heart and Normal: Lungs Plan Diagnosis/Plan: Unchanged I have reviewed the history and physical and performed a pertinent physical examination on my patient. No changes have occurred unless specified. Time Spent With Patient Time: Total time managing care of this patient today ____ minutes.
--- NOTE | 2023-12-11 07:03 | HO.ECTPROC ---
ECT Procedure Note Diagnosis/Treatment Date of Service: 12/13/23 Diagnosis: Bipolar disorder Previous ECT Date: 12/04/23 Treatment: Maintenance Interval Clinical Notes: The patient reported euthymia. No side effects with ect feels stable off of terazosin generally feeling ok uses scopalamine patch pre tx for nausea Time: Total time managing care of this patient today ____ minutes. ECT Settings Device: THYMATRON DGx Electrode Placement: Right Unilateral Program/Pulse Width: 0.25 Energy Percent: 100 Seizure Duration By EEG (in seconds): 23 Medications Administration General Anesthetic: Methohexital (80) Muscle Relaxant: Succinylcholine (80) Ancillary Medications Anti-emetics: Zofran - Pre ECT Miscillaneous Medications: Propofol and Other (Escopolamine patch) Airway Management Airway Management: Bag Mask Ventilation Treatment Recommendations No Changes Recommended: No change Notes: doing well f/u tx 1 wk Pt Tolerated Procedure w/o Issue: Yes
[2023-12-11] MEDS: Scopolamine 1.5 MG PATCH.TD.3 TRANSDERMA (07:11)
== END 2023-12-11 08:58 | disposition home or self-care (01) ==
PROVIDERS: Visit Provider Psychiatry & Neurology Psychiatry
PROC: (CPT 90870; principal; 2023-12-11 08:30)
DX: F31.81 Bipolar II disorder (principal); F41.1 Generalized anxiety disorder; F90.9 Attention-deficit hyperactivity disorder, unspecified type; G25.0 Essential tremor; I10 Essential (primary) hypertension; E03.9 Hypothyroidism, unspecified; Z79.899 Other long term (current) drug therapy; Z87.891 Personal history of nicotine dependence
CPT/HCPCS: 90870; J0330; J2405; J2704

== ENCOUNTER → 2023-12-11 06:55 | Outpatient (BNV) | payer MEDICARE, SELFPAY | PROVIDERS: Visit Provider Psychiatry & Neurology Psychiatry | DX: F33.3 Major depressive disorder, recurrent, severe with psychotic symptoms (principal) | CPT/HCPCS: 90870 ==

== ENCOUNTER 2023-12-18 05:47 | Day surgery (SDC) | payer MEDICARE, SELFPAY ==
[2023-12-18] VITALS (7 sets, daily range): BP systolic 101–155; BP diastolic 54–82; PULSE 72–85; RESP 16; TEMP 36.6; O2SAT 96–100; BMI 21.2
[2023-12-18] MEDS: Scopolamine 1.5 MG PATCH.TD.3 TRANSDERMA (06:30)
[2023-12-18] MEDS: Lactated Ringers 1,000 ML 50 ML IVCONT (06:45)
--- NOTE | 2023-12-18 06:57 | HO.ANESPROP2 ---
[facility] Active Problems Active Problems: All Active Problems (Updated 12/05/23 @ 00:03 by Juliana German) Delirium in remission (Acute) Major depressive disorder, recurrent, severe with psychotic features (Acute) Footdrop (Acute) Major depressive disorder, recurrent severe without psychotic features (Acute) Personality disorder (Acute) Organic catatonia (Acute) Abnormal EKG (Acute) Odynophagia (Acute) Paranoia (Acute) Dysphagia (Acute) Serotonin syndrome (Acute) Ataxia (Acute) Tremors of nervous system (Acute) Major depression in full remission (Acute) Memory deficit (Acute) ADHD (attention deficit hyperactivity disorder) (Acute) ZAC (generalized anxiety disorder) (Acute) Depression (Acute) Acute bacterial conjunctivitis of both eyes (Acute) Hypercalcemia (Acute) Hypothyroidism (Acute) Leukocytosis (Acute) Hypertension (Chronic) Past Medical History Medical History Urinary tract infection Depression Hypothyroidism ZAC (generalized anxiety disorder) Hypertension ADHD (attention deficit hyperactivity disorder) Family History Family History Other No pertinent family history Family history of problems with anesthesia: No Surgical History Surgical History H/O thumb surgery H/O cone biopsy of cervix History of Problems with Anesthesia: No Social History Social History Household Members: Spouse Household Members Other:: And two cats. Housing: House Do you presently have visiting nurse or other home services: No Unable to assess alcohol history related to: Unknown Alcohol intake: never Patient Tobacco Use Status: Former Tobacco user Quit Date: 20 years agp Tobacco use type: Cigarette Years Smoked: 20 e-Cigarette/Vaping Use: Never Used Second Hand Smoke Exposure: No Substance Use Type: Former Substance User and Marijuana Advance Directives: No Advance Directives Information Provided: Yes service: No Sexual orientation: Straight/Heterosexual Meds Allergies Allergy/AdvReac Type Severity Reaction Status Date / Time No Known Allergies Allergy Verified 08/27/23 10:27 Home Medications Medication Instructions Recorded Confirmed Last Taken Type fluticasone propionate 50 1 spray intranasal BID 08/27/23 08/27/23 Unknown History mcg/actuation nasal spray,suspension Exam Height,Weight and Vital Signs: Height 5 ft 1 in Weight 50.802 kg Last Vital Signs Temp 97.9 F 12/18/23 06:36 Pulse 72 12/18/23 06:36 Resp 16 12/18/23 06:36 BP 146/78 H 12/18/23 06:36 Pulse Ox 98 12/18/23 06:36 O2 Del Method Room Air 12/18/23 06:36 Airway Mallampati Class: II TM Dist: >3cm Neck ROM: Full Heart: rrr Lungs: cta Assessment and Plan Assessment Anesthesia Assessment: Anesthesia Plan Discussed and Chart Reviewed Final Anesthetic Review Family History of Problems with Anesthesia: No History of Problems with Anesthesia: No NPO: Yes ASA Class: III Final Preanesthetic Review: No Changes in Pt Med Stat, Meds/Allgs Chart Reviewed and Consent Obtained/Reviewed Patient Risk: Intermediate Procedure Risk: Intermediate Anesthetic Plan Anesthetic Plan: GA Disposition: Standard PACU
--- NOTE | 2023-12-18 07:25 | MHC.SHP ---
Pre-Procedural Eval Section A - 24 Hr Update-Section A only Date of Service: 12/18/23 The patient is an INPATIENT: No Changes since office visit: Yes Patient answered all questions; No Cold of Flu in the past 2 weeks, No New Medical Problems and No Changes in Medication The patient has been examined within 24 hours of the surgical procedure. The History & Physical has been completed within 30 days and I have reviewed it.: No Section B - Complete if H&P > 30 days Chief Complaint: depression Details of Present Illness: recurrent depression htn ? past serotonin syndrome Relevant Social History: None Medical History: Significant History (see recent hosp) Allergies: Allergies Allergy/AdvReac Type Severity Reaction Status Date / Time No Known Allergies Allergy Verified 08/27/23 10:27 Review of Systems Sugical H&P ROS: Negative: Constitution, Cardiovascular, Respiratory and Psychiatric (doimg well) Exam Surgical H&P Exam: Normal: Heart (rr) and Normal: Lungs (clear) Plan Diagnosis/Plan: Unchanged I have reviewed the history and physical and performed a pertinent physical examination on my patient. No changes have occurred unless specified. Time Spent With Patient Time: Total time managing care of this patient today _30___ minutes.
--- NOTE | 2023-12-18 07:43 | HO.ECTPROC ---
ECT Procedure Note Diagnosis/Treatment Date of Service: 12/18/23 Diagnosis: Major Depressive Disorder Previous ECT Date: 12/11/23 Treatment: Maintenance Interval Clinical Notes: The patient reported euthymia. No side effects with ect feels much more like herself uses scopalamine patch pre tx for nausea with good effect Time: Total time managing care of this patient today _30___ minutes. ECT Settings Device: THYMATRON DGx Electrode Placement: Right Unilateral Program/Pulse Width: 0.25 Energy Percent: 100 Seizure Duration By EEG (in seconds): 23 Medications Administration General Anesthetic: Methohexital (80) Muscle Relaxant: Succinylcholine (80) Ancillary Medications Anti-emetics: Zofran - Pre ECT Miscillaneous Medications: Propofol and Other (Escopolamine patch) Airway Management Airway Management: Bag Mask Ventilation Treatment Recommendations Notes: doing well f/u tx 2 wks may need to change to 0.5 pw or change to etom Pt Tolerated Procedure w/o Issue: Yes
== END 2023-12-18 08:55 | disposition home or self-care (01) ==
PROVIDERS: Visit Provider Psychiatry & Neurology Psychiatry
PROC: (CPT 90870; principal; 2023-12-18 08:30)
DX: F33.2 Major depressive disorder, recurrent severe without psychotic features (principal); F41.1 Generalized anxiety disorder; F90.9 Attention-deficit hyperactivity disorder, unspecified type; I10 Essential (primary) hypertension; G25.0 Essential tremor; Z79.899 Other long term (current) drug therapy
CPT/HCPCS: 90870; J0330; J2405; J2704

== ENCOUNTER → 2023-12-18 05:47 | Outpatient (BNV) | payer MEDICARE, SELFPAY | PROVIDERS: Visit Provider Psychiatry & Neurology Psychiatry | DX: F33.3 Major depressive disorder, recurrent, severe with psychotic symptoms (principal) | CPT/HCPCS: 90870 ==

== ENCOUNTER 2024-01-01 12:36 | Day surgery (SDC) | payer MEDICARE, SELFPAY ==
[2024-01-01] VITALS (8 sets, daily range): BP systolic 118–170; BP diastolic 64–76; PULSE 82–98; RESP 16–20; TEMP 36.1–37.3; O2SAT 95–99; BMI 21.7; BMI 47.9
--- NOTE | 2024-01-01 13:20 | HO.ANESPROP2 ---
[facility] Active Problems Active Problems: All Active Problems (Updated 12/05/23 @ 00:03 by Juliana German) Delirium in remission (Acute) Major depressive disorder, recurrent, severe with psychotic features (Acute) Footdrop (Acute) Major depressive disorder, recurrent severe without psychotic features (Acute) Personality disorder (Acute) Organic catatonia (Acute) Abnormal EKG (Acute) Odynophagia (Acute) Paranoia (Acute) Dysphagia (Acute) Serotonin syndrome (Acute) Ataxia (Acute) Tremors of nervous system (Acute) Major depression in full remission (Acute) Memory deficit (Acute) ADHD (attention deficit hyperactivity disorder) (Acute) ZAC (generalized anxiety disorder) (Acute) Depression (Acute) Acute bacterial conjunctivitis of both eyes (Acute) Hypercalcemia (Acute) Hypothyroidism (Acute) Leukocytosis (Acute) Hypertension (Chronic) Past Medical History Medical History Urinary tract infection Depression Hypothyroidism ZAC (generalized anxiety disorder) Hypertension ADHD (attention deficit hyperactivity disorder) Family History Family History Other No pertinent family history Family history of problems with anesthesia: No Surgical History Surgical History H/O thumb surgery H/O cone biopsy of cervix History of Problems with Anesthesia: No Social History Social History Household Members: Spouse Household Members Other:: And two cats. Housing: House Do you presently have visiting nurse or other home services: No Unable to assess alcohol history related to: Unknown Alcohol intake: never Patient Tobacco Use Status: Former Tobacco user Quit Date: 20 years [facility] Tobacco use type: Cigarette Years Smoked: 20 e-Cigarette/Vaping Use: Never Used Second Hand Smoke Exposure: No Use of substances other than those prescribed or required for medical reasons: No Substance Use Type: Former Substance User and Marijuana Advance Directives: No Advance Directives Information Provided: Yes Recently lost weight without trying: No Nutrition Risks: No Nutritional Risk service: No Sexual orientation: Straight/Heterosexual Meds Allergies Allergy/AdvReac Type Severity Reaction Status Date / Time No Known Allergies Allergy Verified 08/27/23 10:27 Home Medications Medication Instructions Recorded Confirmed Last Taken Type fluticasone propionate 50 1 spray intranasal BID 08/27/23 08/27/23 Unknown History mcg/actuation nasal spray,suspension Exam Height,Weight and Vital Signs: Height 5 ft 1 in Weight 115 kg Last Vital Signs Temp 97.0 F 01/01/24 13:11 Pulse 91 01/01/24 13:11 Resp 16 01/01/24 13:11 BP 170/76 H 01/01/24 13:11 Pulse Ox 96 01/01/24 13:11 O2 Del Method Room Air 01/01/24 13:11 Airway Mallampati Class: II TM Dist: >3cm Neck ROM: Full Heart: rrr Lungs: cta Assessment and Plan Assessment Anesthesia Assessment: Anesthesia Plan Discussed and Chart Reviewed Final Anesthetic Review Family History of Problems with Anesthesia: No History of Problems with Anesthesia: No NPO: Yes ASA Class: III Final Preanesthetic Review: No Changes in Pt Med Stat, Meds/Allgs Chart Reviewed and Consent Obtained/Reviewed Patient Risk: Intermediate Procedure Risk: Intermediate Anesthetic Plan Anesthetic Plan: GA Disposition: Standard PACU
--- NOTE | 2024-01-01 13:59 | MHC.SHP ---
Pre-Procedural Eval Section A - 24 Hr Update-Section A only Date of Service: 01/01/24 The patient is an INPATIENT: No Changes since office visit: No Cold of Flu in the past 2 weeks, No New Medical Problems, No Changes in Medication and No Patient answered all questions The patient has been examined within 24 hours of the surgical procedure. The History & Physical has been completed within 30 days and I have reviewed it.: Yes Section B - Complete if H&P > 30 days Chief Complaint: depression Allergies: Allergies Allergy/AdvReac Type Severity Reaction Status Date / Time No Known Allergies Allergy Verified 08/27/23 10:27 Plan I have reviewed the history and physical and performed a pertinent physical examination on my patient. No changes have occurred unless specified. Time Spent With Patient Time: Total time managing care of this patient today ____ minutes.
--- NOTE | 2024-01-01 14:10 | HO.ECTPROC ---
ECT Procedure Note Diagnosis/Treatment Date of Service: 01/01/24 Diagnosis: Major Depressive Disorder Previous ECT Date: 12/18/23 Treatment: Maintenance Interval Clinical Notes: The patient reported several stressors such as pain on her leg and other psychosocial stressors but her mood remains stable, less dysphoric. The patient denies side effects with the previous ECT. ECT done as usual, no complications, woke up well Time: Total time managing care of this patient today __30__ minutes. ECT Settings Device: THYMATRON DGx Electrode Placement: Right Unilateral Program/Pulse Width: 0.25 Energy Percent: 100 Seizure Duration By EEG (in seconds): 20 By Motor Observation (in seconds): 18 Medications Administration General Anesthetic: Methohexital (80) Muscle Relaxant: Succinylcholine (80) Ancillary Medications Anti-emetics: Zofran - Pre ECT Miscillaneous Medications: Propofol Airway Management Airway Management: LMA Treatment Recommendations No Changes Recommended: No change Pt Tolerated Procedure w/o Issue: Yes
[2024-01-01] MEDS: Scopolamine 1.5 MG PATCH.TD.3 TRANSDERMA (14:18)
== END 2024-01-01 15:37 | disposition home or self-care (01) ==
PROVIDERS: PCP Orthopaedic Surgery; Visit Provider Psychiatry & Neurology Psychiatry
PROC: (CPT 90870; principal; 2024-01-01 16:30)
DX: F33.41 Major depressive disorder, recurrent, in partial remission (principal); F41.1 Generalized anxiety disorder; F90.9 Attention-deficit hyperactivity disorder, unspecified type; M21.372 Foot drop, left foot; G25.79 Other drug induced movement disorders; I10 Essential (primary) hypertension; Z79.899 Other long term (current) drug therapy
CPT/HCPCS: 90870; J0330; J2405; J2704

== ENCOUNTER → 2024-01-01 12:36 | Outpatient (BNV) | payer MEDICARE, SELFPAY ==
--- NOTE | 2024-01-01 17:31 | A.OFFPSYCH_ITS ---
Intake Intake Visit Reasons: depression Allergies No Known Allergies Allergy (Verified 08/27/23 10:27) HPI- Psychiatric Chief Complaint: depression HPI Past Psychiatric History: -Pt sees Dr. Shearer in OP setting recent hospitalization at the [place] [facility] Has had often on relapses over the past year and half -Remote hx of IPLOC 12 yrs ago, recent admissions at [facility] since 2020 with [facility] 4 admissions in the last 2 years Assessment and Plan Counseling and coordination of Care Details: I spent [] minutes reviewing the record, seeing the patient and documenting in the medical record. Counseling provided to the patient/caregiver as outlined below. Addressed patient/caregiver concerns regarding current medication regime including effective adherence. Addressed patient/caregiver concerns regarding diagnosis and prognosis including accuracy of diagnosis, prognosis over time, impact of diagnosis. Addressed patient/caregiver concerns regarding impact of recent stressors. [facility] Medical History Urinary tract infection Depression Hypothyroidism ZAC (generalized anxiety disorder) Hypertension ADHD (attention deficit hyperactivity disorder) Surgical History H/O thumb surgery H/O cone biopsy of cervix Family History Other No pertinent family history Social History Household Members: Spouse Household Members Other:: And two cats. 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
== END ==
PROVIDERS: PCP Orthopaedic Surgery; Visit Provider Psychiatry & Neurology Psychiatry
DX: F33.3 Major depressive disorder, recurrent, severe with psychotic symptoms (principal)
CPT/HCPCS: 90870

== ENCOUNTER 2024-01-05 10:23 | Outpatient (AMB) | payer MEDICARE, SELFPAY ==
--- NOTE | 2024-01-05 11:17 | A.OFFPSYCH_ITS ---
Intake Intake Visit Reasons: depression Allergies No Known Allergies Allergy (Verified 08/27/23 10:27) Medication List - Last Reconciled 01/05/24 by Yovany Shearer MD amlodipine 5 mg See Protocol PO DAILY ascorbic acid (vitamin C) (Vitamin C) 2,000 mg (4 x 500 mg) PO BEDTIME 30 days brimonidine 0.2% 1 drp ophthalmic (eye) BID bupropion HCl 150 mg PO DAILY fluticasone propionate 50 mcg/actuation 1 spray intranasal BID lisinopril 15 mg See Protocol PO DAILY 90 days lorazepam 0.5 mg PO Q8H PRN melatonin 6 mg (2 x 3 mg) PO BEDTIME PRN multivitamin (Daily-Dara tablet) 1 tab PO DAILY 30 days olanzapine 2.5 mg PO BEDTIME 30 days omeprazole 20 mg PO DAILY@0630 vortioxetine (Trintellix) 10 mg PO DAILY HPI- Psychiatric Chief Complaint: depression HPI Narrative: Pt seems much improved able to stay out of bed more euthymic since ect cogmitive ly intact doing better since ect 01/01/24, had catastrophic rx to meeting with dr mathis and fears regarding her brain and issues related to readings by neurorad vs dr mathis .Some ischemic changes were noted on exam . Has been walking without difficulty chronic fears re her throat and sx will have f/u visist with dr mathis had ncs. On trintellix wellbutrin daily [facility]iking [facility] Past Psychiatric History: -Pt sees Dr. Shearer in OP setting recent hospitalization at the [place] [facility] Has had often on relapses over the past year and half -Remote hx of IPLOC 12 yrs ago, recent admissions at [facility] since 2020 with at least 4 admissions in the last 2 years Mental Status Exam Mental Status Exam Patient Appearance: Appropriate Level of Consciousness: Awake and Appropriate Patient Behavior: Appropriate Behavior Comments: olivo affect less depressed less anxiety Mood Description: Appropriate and Nervous Affect Description: Constricted Ability to Follow Directions: Good Speech Pattern: Clear Thought Process: Intact Thought Content: positive for Intact, negative for Suicidal Ideation or negative for Homicidal Ideation Depressive Symptoms: Loss of Energy Assessment and Plan Assessment & Plan (1) Major depressive disorder in partial remission: Status: Acute Code(s): F32.4 - Major depressive disorder, single episode, in partial remission Plan cont plan of care case reviewed with dr mathis neurology cont ect q 2wks needs much supportreassurance cont trintellix wellbutrin Medications: Refilled bupropion HCl 150 mg PO DAILY 90 tabs 1RF Counseling and coordination of Care Pt. Self Management counseling: Exercise and Cognitive restructuring Medication management counseling: Effectiveness and Side effects Diagnosis and Prognosis Counseling: Adequacy of current interventions Details: I spent [30] minutes reviewing the record, seeing the patient and documenting in the medical record. Counseling provided to the patient/caregiver as outlined below. Addressed patient/caregiver concerns regarding current medication regime including effective adherence. Addressed patient/caregiver concerns regarding diagnosis and prognosis including accuracy of diagnosis, prognosis over time, impact of diagnosis. Addressed patient/caregiver concerns regarding impact of recent stressors. [facility] Medical History Urinary tract infection Depression Hypothyroidism ZAC (generalized anxiety disorder) Hypertension ADHD (attention deficit hyperactivity disorder) Surgical History H/O thumb surgery H/O cone biopsy of cervix Family History Other No pertinent family history Social History Household Members: Spouse Household Members Other:: And two cats. 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
== END 2024-01-05 12:10 | disposition home or self-care (01) ==
LOC: HO.HOP 10:23
PROVIDERS: PCP Internal Medicine; Visit Provider Psychiatry & Neurology Psychiatry
DX: F32.4 Major depressive disorder, single episode, in partial remission (principal)
CPT/HCPCS: 99214

== ENCOUNTER → 2024-01-05 10:23 | Outpatient (BNVA) | payer MEDICARE, SELFPAY | PROVIDERS: PCP Internal Medicine; Visit Provider Psychiatry & Neurology Psychiatry | DX: F32.4 Major depressive disorder, single episode, in partial remission (principal) | CPT/HCPCS: 99212 ==

== ENCOUNTER 2024-01-15 05:48 | Day surgery (SDC) | payer MEDICARE, SELFPAY ==
[2024-01-15] VITALS (7 sets, daily range): BP systolic 119–156; BP diastolic 58–86; PULSE 77–91; RESP 16–20; TEMP 36.4–37.3; O2SAT 94–98; BMI 21.9
--- NOTE | 2024-01-15 06:41 | P.CONAN_ITS ---
[facility] Active Problems Active Problems: All Active Problems (Updated 01/05/24 @ 17:11 by Yovany Shearer MD) Major depressive disorder in partial remission (Acute) Delirium in remission (Acute) Major depressive disorder, recurrent, severe with psychotic features (Acute) Footdrop (Acute) Major depressive disorder, recurrent severe without psychotic features (Acute) Personality disorder (Acute) Organic catatonia (Acute) Abnormal EKG (Acute) Odynophagia (Acute) Paranoia (Acute) Dysphagia (Acute) Serotonin syndrome (Acute) Ataxia (Acute) Tremors of nervous system (Acute) Major depression in full remission (Acute) Memory deficit (Acute) ADHD (attention deficit hyperactivity disorder) (Acute) ZAC (generalized anxiety disorder) (Acute) Depression (Acute) Acute bacterial conjunctivitis of both eyes (Acute) Hypercalcemia (Acute) Hypothyroidism (Acute) Leukocytosis (Acute) Hypertension (Chronic) Past Medical History Medical History Urinary tract infection Depression Hypothyroidism ZAC (generalized anxiety disorder) Hypertension ADHD (attention deficit hyperactivity disorder) Family History Family History Other No pertinent family history Family history of problems with anesthesia: No Surgical History Surgical History H/O thumb surgery H/O cone biopsy of cervix History of Problems with Anesthesia: No Social History Social History Household Members: Spouse Household Members Other:: And two cats. Housing: House Do you presently have visiting nurse or other home services: No Unable to assess alcohol history related to: Unknown Alcohol intake: never Patient Tobacco Use Status: Former Tobacco user Quit Date: 20 years agp Tobacco use type: Cigarette Years Smoked: 20 e-Cigarette/Vaping Use: Never Used Second Hand Smoke Exposure: No Substance Use Type: Former Substance User and Marijuana Advance Directives: No Advance Directives Information Provided: Yes service: No Sexual orientation: Straight/Heterosexual Meds Allergies Allergy/AdvReac Type Severity Reaction Status Date / Time No Known Allergies Allergy Verified 08/27/23 10:27 Home Medications Medication Instructions Recorded Confirmed Last Taken Type fluticasone propionate 50 1 spray intranasal BID 08/27/23 08/27/23 Unknown History mcg/actuation nasal spray,suspension Exam Height,Weight and Vital Signs: Height 5 ft 2 in Weight 54.431 kg Last Vital Signs Temp 97.6 F 01/15/24 06:28 Pulse 79 01/15/24 06:28 Resp 16 01/15/24 06:28 BP 156/76 H 01/15/24 06:28 Pulse Ox 95 01/15/24 06:28 O2 Del Method Room Air 01/15/24 06:28 Airway Mallampati Class: II TM Dist: >3cm Neck ROM: Full Heart: rrr Lungs: cta Assessment and Plan Assessment Anesthesia Assessment: Anesthesia Plan Discussed and Chart Reviewed Final Anesthetic Review Family History of Problems with Anesthesia: No History of Problems with Anesthesia: No NPO: Yes ASA Class: III Final Preanesthetic Review: No Changes in Pt Med Stat, Meds/Allgs Chart Reviewed and Consent Obtained/Reviewed Patient Risk: Intermediate Procedure Risk: Intermediate Anesthetic Plan Anesthetic Plan: GA Disposition: Standard PACU
[2024-01-15] MEDS: Lactated Ringers 1,000 ML 50 ML IVCONT (06:45)
--- NOTE | 2024-01-15 07:02 | MHC.SHP ---
Pre-Procedural Eval Section A - 24 Hr Update-Section A only Date of Service: 01/15/24 The patient is an INPATIENT: No Changes since office visit: No Cold of Flu in the past 2 weeks, No New Medical Problems, No Changes in Medication and No Patient answered all questions The patient has been examined within 24 hours of the surgical procedure. The History & Physical has been completed within 30 days and I have reviewed it.: Yes Section B - Complete if H&P > 30 days Chief Complaint: Major depressive disorder, recurrent, severe with Allergies: Allergies Allergy/AdvReac Type Severity Reaction Status Date / Time No Known Allergies Allergy Verified 08/27/23 10:27 Review of Systems Sugical H&P ROS: Negative: Respiratory and Psychiatric and Yes, Specify: Neurological (foot weakness) Exam Surgical H&P Exam: Normal: Heart, Normal: Lungs and Normal: Neurological (no confusion ) Plan Diagnosis/Plan: Unchanged I have reviewed the history and physical and performed a pertinent physical examination on my patient. No changes have occurred unless specified. Time Spent With Patient Time: Total time managing care of this patient today ____ minutes.
--- NOTE | 2024-01-15 07:03 | HO.ECTPROC ---
ECT Procedure Note Diagnosis/Treatment Date of Service: 01/15/24 Diagnosis: Major Depressive Disorder Treatment: Maintenance Interval Clinical Notes: Patient has been doing quite well full affect no cognitive impairment feels much more like herself has been able to resume driving looking forward to traveling again with her feeling like a much more normal self Time: Total time managing care of this patient today _30___ minutes. ECT Settings Device: THYMATRON DGx Program/Pulse Width: 0.25 Energy Percent: 100 Seizure Duration By EEG (in seconds): 32 Medications Administration General Anesthetic: Methohexital (80) Muscle Relaxant: Succinylcholine (80) Ancillary Medications Anti-emetics: Zofran - Pre ECT Miscillaneous Medications: Propofol Airway Management Airway Management: Bag Mask Ventilation Treatment Recommendations No Changes Recommended: No change Notes: Follow-up 3 weeks patient to call problems relapse symptoms difficult side effects Pt Tolerated Procedure w/o Issue: Yes
[2024-01-15] MEDS: Scopolamine 1.5 MG PATCH.TD.3 TRANSDERMA (07:06)
== END 2024-01-15 08:45 | disposition home or self-care (01) ==
PROVIDERS: PCP Orthopaedic Surgery; Visit Provider Psychiatry & Neurology Psychiatry
PROC: (CPT 90870; principal; 2024-01-15 08:00)
DX: F32.4 Major depressive disorder, single episode, in partial remission (principal); F41.1 Generalized anxiety disorder; G25.79 Other drug induced movement disorders; F90.9 Attention-deficit hyperactivity disorder, unspecified type; I10 Essential (primary) hypertension; Z79.899 Other long term (current) drug therapy
CPT/HCPCS: 90870; J0330; J2405; J2704

== ENCOUNTER → 2024-01-15 05:48 | Outpatient (BNV) | payer MEDICARE, SELFPAY | PROVIDERS: PCP Orthopaedic Surgery; Visit Provider Psychiatry & Neurology Psychiatry | DX: F33.3 Major depressive disorder, recurrent, severe with psychotic symptoms (principal) | CPT/HCPCS: 90870 ==

== ENCOUNTER 2024-01-22 12:16 | Outpatient (AMB) | payer MEDICARE, SELFPAY ==
--- NOTE | 2024-01-22 13:41 | MHC.OFFVISPS ---
Intake Intake Visit Reasons: depression Allergies No Known Allergies Allergy (Verified 08/27/23 10:27) HPI- Psychiatric Chief Complaint: depression HPI Narrative: Patient has had some increase in depressive symptoms again. No clear trigger some increased anxiety regarding medical issues and footdrop. On Wellbutrin Trintellix. Has periods where she feels fatigued again and wishes to lie down she is forcing herself to go to different meanings and try to maintain structure but it can be difficult has generally been helped by ECT no cognitive issues have been doing right unilateral Also has a preoccupation with there is something wrong with her throat that has been missed for an extended period of time she has been awaiting ENT consult Past Psychiatric History: -Pt sees Dr. Shearer in OP setting recent hospitalization at the [facility] Has had often on relapses over the past year and half -Remote hx of IPLOC 12 yrs ago, recent admissions at [facility] since 2020 with at least 4 admissions in the last 2 years Mental Status Exam Mental Status Exam Patient Appearance: Appropriate Level of Consciousness: Awake and Appropriate Patient Behavior: Appropriate Behavior Comments: olivo affect less depressed less anxiety Mood Description: Constricted, Depressed and Anxious Affect Description: Constricted Patient Cognition Impaired: No Ability to Follow Directions: Good Speech Pattern: Clear Memory Description: Intact Hallucinations: None Delusions: Not Present Thought Process: Intact Thought Content: positive for Obsessional Thoughts, positive for Preoccupation, negative for Suicidal Ideation or negative for Homicidal Ideation Depressive Symptoms: Loss of Energy Assessment and Plan Assessment & Plan (1) Major depressive disorder, recurrent severe without psychotic features: Status: Acute Code(s): F33.2 - Major depressive disorder, recurrent severe without psychotic features (2) Major depressive disorder, recurrent, severe with psychotic features: Status: Acute Code(s): F33.3 - Major depressive disorder, recurrent, severe with psychotic symptoms (3) ZAC (generalized anxiety disorder): Status: Acute Code(s): F41.1 - Generalized anxiety disorder (4) ADHD (attention deficit hyperactivity disorder): Status: Acute Code(s): F90.9 - Attention-deficit hyperactivity disorder, unspecified type Plan The patient has again relapsed in a ruminating depression excessively thinking about her throat potential medical problems Feeling lethargic wanting to lie in bed slower mentation we discussed increasing olanzapine to 5 mg bedtime discussed off-label use of modafinil for lethargy and depression to monitor blood pressure scheduled for ECT in 3 days no active SI Start modafanil as augmentation for depression watch for inc anxiety risks benefits reviewed Looking to get 2nd opinion from [facility] or [facility] Medications: New modafinil (Provigil) 1/2 tab x 1 week then 1 tab daily 100 mg PO DAILY 30 tabs 1RF Counseling and coordination of Care Pt. Self Management counseling: Exercise and Behavior activation Details: I spent [40] minutes reviewing the record, seeing the patient and documenting in the medical record. Counseling provided to the patient/caregiver as outlined below. Addressed patient/caregiver concerns regarding current medication regime including effective adherence. Addressed patient/caregiver concerns regarding diagnosis and prognosis including accuracy of diagnosis, prognosis over time, impact of diagnosis. Addressed patient/caregiver concerns regarding impact of recent stressors. [facility] Medical History Urinary tract infection Depression Hypothyroidism ZAC (generalized anxiety disorder) Hypertension ADHD (attention deficit hyperactivity disorder) Surgical History H/O thumb surgery H/O cone biopsy of cervix Family History Other No pertinent family history Social History Household Members: Spouse Household Members Other:: And two cats. 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
== END 2024-01-22 13:28 | disposition home or self-care (01) ==
LOC: HO.HOP 12:17
PROVIDERS: PCP Orthopaedic Surgery; Visit Provider Psychiatry & Neurology Psychiatry
DX: F33.2 Major depressive disorder, recurrent severe without psychotic features (principal); F33.3 Major depressive disorder, recurrent, severe with psychotic symptoms; F41.1 Generalized anxiety disorder; F90.9 Attention-deficit hyperactivity disorder, unspecified type
CPT/HCPCS: 90833; 99213

== ENCOUNTER → 2024-01-22 12:16 | Outpatient (BNVA) | payer MEDICARE, SELFPAY | PROVIDERS: PCP Orthopaedic Surgery; Visit Provider Psychiatry & Neurology Psychiatry | DX: F33.3 Major depressive disorder, recurrent, severe with psychotic symptoms (principal); F41.1 Generalized anxiety disorder; F90.9 Attention-deficit hyperactivity disorder, unspecified type | CPT/HCPCS: 99212 ==

== ENCOUNTER 2024-01-25 05:46 | Day surgery (SDC) | payer MEDICARE, SELFPAY ==
[2024-01-25] VITALS (7 sets, daily range): BP systolic 123–178; BP diastolic 65–88; PULSE 72–88; RESP 16–18; TEMP 36.2–36.6; O2SAT 95–98; BMI 21.9
--- NOTE | 2024-01-25 06:51 | HO.ANESPROP2 ---
[facility] Active Problems Active Problems: All Active Problems (Updated 01/05/24 @ 17:11 by Yovany Shearer MD) Major depressive disorder in partial remission (Acute) Delirium in remission (Acute) Major depressive disorder, recurrent, severe with psychotic features (Acute) Footdrop (Acute) Major depressive disorder, recurrent severe without psychotic features (Acute) Personality disorder (Acute) Organic catatonia (Acute) Abnormal EKG (Acute) Odynophagia (Acute) Paranoia (Acute) Dysphagia (Acute) Serotonin syndrome (Acute) Ataxia (Acute) Tremors of nervous system (Acute) Major depression in full remission (Acute) Memory deficit (Acute) ADHD (attention deficit hyperactivity disorder) (Acute) ZAC (generalized anxiety disorder) (Acute) Depression (Acute) Acute bacterial conjunctivitis of both eyes (Acute) Hypercalcemia (Acute) Hypothyroidism (Acute) Leukocytosis (Acute) Hypertension (Chronic) Past Medical History Medical History Urinary tract infection Depression Hypothyroidism ZAC (generalized anxiety disorder) Hypertension ADHD (attention deficit hyperactivity disorder) Family History Family History Other No pertinent family history Family history of problems with anesthesia: No Surgical History Surgical History H/O thumb surgery H/O cone biopsy of cervix History of Problems with Anesthesia: No Social History Social History Household Members: Spouse Household Members Other:: And two cats. Housing: House Do you presently have visiting nurse or other home services: No Unable to assess alcohol history related to: Unknown Alcohol intake: never Patient Tobacco Use Status: Former Tobacco user Quit Date: 20 years agp Tobacco use type: Cigarette Years Smoked: 20 e-Cigarette/Vaping Use: Never Used Second Hand Smoke Exposure: No Substance Use Type: Former Substance User and Marijuana Advance Directives: No Advance Directives Information Provided: Yes service: No Sexual orientation: Straight/Heterosexual Meds Allergies Allergy/AdvReac Type Severity Reaction Status Date / Time No Known Allergies Allergy Verified 08/27/23 10:27 Active Medications: Current Medications Lactated Ringer's (Lr) 1,000 mls @ 50 mls/hr IVCONT .Q20H NORBERTO Scopolamine (Scopolamine 1.5 Mg Patch.Td.3) 1.5 mg TRANSDERMA PREOP ONE Stop: 01/25/24 06:51 Home Medications Medication Instructions Recorded Confirmed Last Taken Type fluticasone propionate 50 1 spray intranasal BID 08/27/23 08/27/23 Unknown History mcg/actuation nasal spray,suspension Exam Height,Weight and Vital Signs: Height 5 ft 2 in Weight 54.431 kg Last Vital Signs Temp 97.8 F 01/25/24 06:27 Pulse 80 01/25/24 06:27 Resp 18 01/25/24 06:27 BP 178/81 H 01/25/24 06:27 Pulse Ox 95 01/25/24 06:27 O2 Del Method Room Air 01/25/24 06:27 Airway Mallampati Class: II TM Dist: >3cm Neck ROM: Full Heart: rrr Lungs: cta Assessment and Plan Assessment Anesthesia Assessment: Anesthesia Plan Discussed and Chart Reviewed Final Anesthetic Review Family History of Problems with Anesthesia: No History of Problems with Anesthesia: No ASA Class: III Final Preanesthetic Review: No Changes in Pt Med Stat, Meds/Allgs Chart Reviewed and Consent Obtained/Reviewed Patient Risk: Intermediate Procedure Risk: Intermediate Anesthetic Plan Anesthetic Plan: GA Disposition: Standard PACU
[2024-01-25] MEDS: Lactated Ringers 1,000 ML 50 ML IVCONT (06:58)
[2024-01-25] MEDS: Scopolamine 1.5 MG PATCH.TD.3 TRANSDERMA (06:58)
--- NOTE | 2024-01-25 07:10 | MHC.SHP ---
Pre-Procedural Eval Section A - 24 Hr Update-Section A only Date of Service: 01/25/24 The patient is an INPATIENT: No Changes since office visit: No Cold of Flu in the past 2 weeks, No New Medical Problems, No Changes in Medication and No Patient answered all questions The patient has been examined within 24 hours of the surgical procedure. The History & Physical has been completed within 30 days and I have reviewed it.: Yes Section B - Complete if H&P > 30 days Chief Complaint: depression Details of Present Illness: recurrent depression htn ? past serotonin syndrome some relapse sx Relevant Social History: None Medical History: Significant History (see recent hosp) Allergies: Allergies Allergy/AdvReac Type Severity Reaction Status Date / Time No Known Allergies Allergy Verified 08/27/23 10:27 Review of Systems Sugical H&P ROS: Negative: Respiratory and Psychiatric and Yes, Specify: Neurological (foot weakness doing pt) Exam Surgical H&P Exam: Normal: Heart, Normal: Lungs (clear) and Normal: Neurological (no confusion ) Plan Diagnosis/Plan: Unchanged I have reviewed the history and physical and performed a pertinent physical examination on my patient. No changes have occurred unless specified. Time Spent With Patient Time: Total time managing care of this patient today _30___ minutes.
--- NOTE | 2024-01-25 07:11 | HO.ECTPROC ---
ECT Procedure Note Diagnosis/Treatment Date of Service: 01/25/24 Diagnosis: Major Depressive Disorder Previous ECT Date: 01/15/24 Treatment: Maintenance Time: Total time managing care of this patient today _30___ minutes. ECT Settings Device: THYMATRON DGx Electrode Placement: Right Unilateral Program/Pulse Width: 0.25 Energy Percent: 100 Seizure Duration By EEG (in seconds): 29 Medications Administration General Anesthetic: Methohexital (80) Muscle Relaxant: Succinylcholine (80) Ancillary Medications Anti-emetics: Zofran - Pre ECT Miscillaneous Medications: Propofol (30) Airway Management Airway Management: Bag Mask Ventilation Treatment Recommendations Notes: consider change to bf or inc pw 0.5 Pt Tolerated Procedure w/o Issue: Yes
--- NOTE | 2024-01-25 07:49 | HO.ECTPROC ---
ECT Procedure Note Diagnosis/Treatment Date of Service: 01/25/24 Diagnosis: Major Depressive Disorder Time: Total time managing care of this patient today ____ minutes. ECT Settings Device: THYMATRON DGx
== END 2024-01-25 08:31 | disposition home or self-care (01) ==
PROVIDERS: PCP Orthopaedic Surgery; Visit Provider Psychiatry & Neurology Psychiatry
PROC: (CPT 90870; principal; 2024-01-25 07:00)
DX: F33.41 Major depressive disorder, recurrent, in partial remission (principal); F41.1 Generalized anxiety disorder; F90.9 Attention-deficit hyperactivity disorder, unspecified type; I10 Essential (primary) hypertension; M21.372 Foot drop, left foot; G25.79 Other drug induced movement disorders; Z79.899 Other long term (current) drug therapy
CPT/HCPCS: 90870; J0330; J1596; J1805; J2405; J2704

== ENCOUNTER → 2024-01-25 05:46 | Outpatient (BNV) | payer MEDICARE, SELFPAY | PROVIDERS: PCP Orthopaedic Surgery; Visit Provider Psychiatry & Neurology Psychiatry | DX: F33.3 Major depressive disorder, recurrent, severe with psychotic symptoms (principal) | CPT/HCPCS: 90870 ==

== ENCOUNTER 2024-01-29 07:47 | Day surgery (SDC) | payer MEDICARE, SELFPAY ==
[2024-01-29 08:25] VITALS: BP 140/76; PULSE 84; RESP 16; TEMP 36.8; O2SAT 95; BMI 21.7
--- NOTE | 2024-01-29 08:36 | HO.ANESPROP2 ---
[facility] Active Problems Active Problems: All Active Problems (Updated 01/05/24 @ 17:11 by Yovany Shearer MD) Major depressive disorder in partial remission (Acute) Delirium in remission (Acute) Major depressive disorder, recurrent, severe with psychotic features (Acute) Footdrop (Acute) Major depressive disorder, recurrent severe without psychotic features (Acute) Personality disorder (Acute) Organic catatonia (Acute) Abnormal EKG (Acute) Odynophagia (Acute) Paranoia (Acute) Dysphagia (Acute) Serotonin syndrome (Acute) Ataxia (Acute) Tremors of nervous system (Acute) Major depression in full remission (Acute) Memory deficit (Acute) ADHD (attention deficit hyperactivity disorder) (Acute) ZAC (generalized anxiety disorder) (Acute) Depression (Acute) Acute bacterial conjunctivitis of both eyes (Acute) Hypercalcemia (Acute) Hypothyroidism (Acute) Leukocytosis (Acute) Hypertension (Chronic) Past Medical History Medical History Urinary tract infection Depression Hypothyroidism ZAC (generalized anxiety disorder) Hypertension ADHD (attention deficit hyperactivity disorder) Family History Family History Other No pertinent family history Family history of problems with anesthesia: No Surgical History Surgical History H/O thumb surgery H/O cone biopsy of cervix History of Problems with Anesthesia: No Social History Social History Household Members: Spouse Household Members Other:: And two cats. Housing: House Do you presently have visiting nurse or other home services: No Unable to assess alcohol history related to: Unknown Alcohol intake: never Patient Tobacco Use Status: Former Tobacco user Quit Date: 20 years agp Tobacco use type: Cigarette Years Smoked: 20 e-Cigarette/Vaping Use: Never Used Second Hand Smoke Exposure: No Substance Use Type: Former Substance User and Marijuana Advance Directives: No Advance Directives Information Provided: Yes service: No Sexual orientation: Straight/Heterosexual Meds Allergies Allergy/AdvReac Type Severity Reaction Status Date / Time No Known Allergies Allergy Verified 08/27/23 10:27 Home Medications Medication Instructions Recorded Confirmed Last Taken Type fluticasone propionate 50 1 spray intranasal BID 08/27/23 08/27/23 Unknown History mcg/actuation nasal spray,suspension Exam Height,Weight and Vital Signs: Height 5 ft 1 in Weight 52.163 kg Last Vital Signs Temp 98.2 F 01/29/24 08:25 Pulse 84 01/29/24 08:25 Resp 16 01/29/24 08:25 BP 140/76 H 01/29/24 08:25 Pulse Ox 95 01/29/24 08:25 O2 Del Method Room Air 01/29/24 08:25 Airway Mallampati Class: II TM Dist: >3cm Neck ROM: Full Heart: rrr Lungs: cta Assessment and Plan Assessment Anesthesia Assessment: Anesthesia Plan Discussed and Chart Reviewed Final Anesthetic Review Family History of Problems with Anesthesia: No History of Problems with Anesthesia: No NPO: Yes ASA Class: III Final Preanesthetic Review: No Changes in Pt Med Stat, Meds/Allgs Chart Reviewed and Consent Obtained/Reviewed Patient Risk: Intermediate Procedure Risk: Intermediate Anesthetic Plan Anesthetic Plan: GA Disposition: Standard PACU
[2024-01-29] MEDS: Scopolamine 1.5 MG PATCH.TD.3 TRANSDERMA (08:42)
[2024-01-29] MEDS: Lactated Ringers 1,000 ML 50 ML IVCONT (08:51)
--- NOTE | 2024-01-29 09:10 | MHC.SHP ---
Pre-Procedural Eval Section A - 24 Hr Update-Section A only Date of Service: 01/29/24 The patient is an INPATIENT: No Changes since office visit: Yes Patient answered all questions; No Cold of Flu in the past 2 weeks, No New Medical Problems and No Changes in Medication The patient has been examined within 24 hours of the surgical procedure. The History & Physical has been completed within 30 days and I have reviewed it.: No Section B - Complete if H&P > 30 days Chief Complaint: depression Details of Present Illness: recurrent depression htn Relevant Social History: None Medical History: Significant History (see recent hosp) Allergies: Allergies Allergy/AdvReac Type Severity Reaction Status Date / Time No Known Allergies Allergy Verified 08/27/23 10:27 Review of Systems Sugical H&P ROS: Negative: Respiratory and Psychiatric and Yes, Specify: Neurological (foot weakness doing pt) Exam Surgical H&P Exam: Normal: Heart, Normal: Lungs (clear) and Normal: Neurological (no confusion ) Plan Diagnosis/Plan: Unchanged I have reviewed the history and physical and performed a pertinent physical examination on my patient. No changes have occurred unless specified. Time Spent With Patient Time: Total time managing care of this patient today ____ minutes.
--- NOTE | 2024-01-29 09:55 | HO.ECTPROC ---
ECT Procedure Note Diagnosis/Treatment Date of Service: 01/29/24 Diagnosis: Major Depressive Disorder Previous ECT Date: 01/25/24 Treatment: Maintenance Interval Clinical Notes: Patient has had some recent increase in depressive symptoms last ECT 311 right unilateral discuss with patient changing technique to see if we can get better efficacy. Change to right temporal left frontal Time: Total time managing care of this patient today _30___ minutes. ECT Settings Device: THYMATRON DGx Electrode Placement: Rt temporal/ Lt frontal Program/Pulse Width: 0.25 Energy Percent: 100 Seizure Duration By EEG (in seconds): 29 Medications Administration General Anesthetic: Methohexital (80) Muscle Relaxant: Succinylcholine (80) Ancillary Medications Anti-emetics: Zofran - Pre ECT Miscillaneous Medications: Propofol (30 post) Airway Management Airway Management: Bag Mask Ventilation Treatment Recommendations No Changes Recommended: No change Notes: monitor response to change to rtlf Pt Tolerated Procedure w/o Issue: Yes
[2024-01-29 10:03] VITALS: BP 147/63; PULSE 86; RESP 20; TEMP 36.5; O2SAT 96
[2024-01-29 10:08] VITALS: BP 142/73; PULSE 85; RESP 18; O2SAT 97
[2024-01-29 10:13] VITALS: BP 143/68; PULSE 82; RESP 17; O2SAT 96
[2024-01-29 10:18] VITALS: BP 143/68; PULSE 89; RESP 20; O2SAT 95
[2024-01-29 10:39] VITALS: BP 153/76; PULSE 78; RESP 17; TEMP 36.1; O2SAT 98
== END 2024-01-29 10:50 | disposition home or self-care (01) ==
PROVIDERS: PCP Orthopaedic Surgery; Visit Provider Psychiatry & Neurology Psychiatry
PROC: (CPT 90870; principal; 2024-01-29 10:00)
DX: F33.2 Major depressive disorder, recurrent severe without psychotic features (principal); F41.1 Generalized anxiety disorder; G25.79 Other drug induced movement disorders; F90.9 Attention-deficit hyperactivity disorder, unspecified type; I10 Essential (primary) hypertension; M21.372 Foot drop, left foot; Z79.899 Other long term (current) drug therapy; Z87.891 Personal history of nicotine dependence
CPT/HCPCS: 90870; J0330; J2405; J2704

== ENCOUNTER → 2024-01-29 07:47 | Outpatient (BNV) | payer MEDICARE, SELFPAY | PROVIDERS: PCP Orthopaedic Surgery; Visit Provider Psychiatry & Neurology Psychiatry | DX: F33.3 Major depressive disorder, recurrent, severe with psychotic symptoms (principal) | CPT/HCPCS: 90870 ==

== ENCOUNTER 2024-02-05 05:49 | Day surgery (SDC) | payer MEDICARE, SELFPAY ==
[2024-02-05] VITALS (7 sets, daily range): BP systolic 116–160; BP diastolic 62–74; PULSE 77–95; RESP 14–20; TEMP 36.2–36.3; O2SAT 93–98; BMI 22.7
--- NOTE | 2024-02-05 06:43 | HO.ANESPROP2 ---
[facility] Active Problems Active Problems: All Active Problems (Updated 01/05/24 @ 17:11 by Yovany Shearer MD) Major depressive disorder in partial remission (Acute) Delirium in remission (Acute) Major depressive disorder, recurrent, severe with psychotic features (Acute) Footdrop (Acute) Major depressive disorder, recurrent severe without psychotic features (Acute) Personality disorder (Acute) Organic catatonia (Acute) Abnormal EKG (Acute) Odynophagia (Acute) Paranoia (Acute) Dysphagia (Acute) Serotonin syndrome (Acute) Ataxia (Acute) Tremors of nervous system (Acute) Major depression in full remission (Acute) Memory deficit (Acute) ADHD (attention deficit hyperactivity disorder) (Acute) ZAC (generalized anxiety disorder) (Acute) Depression (Acute) Acute bacterial conjunctivitis of both eyes (Acute) Hypercalcemia (Acute) Hypothyroidism (Acute) Leukocytosis (Acute) Hypertension (Chronic) Past Medical History Medical History Urinary tract infection Depression Hypothyroidism ZAC (generalized anxiety disorder) Hypertension ADHD (attention deficit hyperactivity disorder) Family History Family History Other No pertinent family history Family history of problems with anesthesia: No Surgical History Surgical History H/O thumb surgery H/O cone biopsy of cervix History of Problems with Anesthesia: No Social History Social History Household Members: Spouse Household Members Other:: And two cats. Housing: House Do you presently have visiting nurse or other home services: No Unable to assess alcohol history related to: Unknown Alcohol intake: never Patient Tobacco Use Status: Former Tobacco user Quit Date: 20 years agp Tobacco use type: Cigarette Years Smoked: 20 e-Cigarette/Vaping Use: Never Used Second Hand Smoke Exposure: No Substance Use Type: Former Substance User and Marijuana Advance Directives: No Advance Directives Information Provided: Yes service: No Sexual orientation: Straight/Heterosexual Meds Allergies Allergy/AdvReac Type Severity Reaction Status Date / Time No Known Allergies Allergy Verified 08/27/23 10:27 Home Medications Medication Instructions Recorded Confirmed Last Taken Type fluticasone propionate 50 1 spray intranasal BID 08/27/23 08/27/23 Unknown History mcg/actuation nasal spray,suspension Exam Height,Weight and Vital Signs: Height 5 ft 1 in Weight 54.431 kg Last Vital Signs Temp 97.1 F 02/05/24 06:26 Pulse 77 02/05/24 06:26 Resp 20 02/05/24 06:26 BP 160/74 H 02/05/24 06:26 Pulse Ox 95 02/05/24 06:26 O2 Del Method Room Air 02/05/24 06:26 Airway Mallampati Class: II TM Dist: >3cm Neck ROM: Full Heart: rrr Lungs: cta Assessment and Plan Assessment Anesthesia Assessment: Anesthesia Plan Discussed and Chart Reviewed Final Anesthetic Review Family History of Problems with Anesthesia: No History of Problems with Anesthesia: No NPO: Yes ASA Class: III Final Preanesthetic Review: No Changes in Pt Med Stat, Meds/Allgs Chart Reviewed and Consent Obtained/Reviewed Patient Risk: Intermediate Procedure Risk: Intermediate Anesthetic Plan Anesthetic Plan: GA Disposition: Standard PACU
--- NOTE | 2024-02-05 07:04 | MHC.SHP ---
Pre-Procedural Eval Section A - 24 Hr Update-Section A only Date of Service: 02/05/24 The patient is an INPATIENT: No Changes since office visit: Yes Patient answered all questions; No Cold of Flu in the past 2 weeks, No New Medical Problems and No Changes in Medication The patient has been examined within 24 hours of the surgical procedure. The History & Physical has been completed within 30 days and I have reviewed it.: No Section B - Complete if H&P > 30 days Chief Complaint: depression Details of Present Illness: recurrent depression htn Relevant Social History: None Medical History: Significant History (see recent hosp) Allergies: Allergies Allergy/AdvReac Type Severity Reaction Status Date / Time No Known Allergies Allergy Verified 08/27/23 10:27 Review of Systems Sugical H&P ROS: Negative: Cardiovascular, Respiratory and Psychiatric and Yes, Specify: Neurological (foot weakness has brace) and Eyes/Ears/Nose/Throat (feeling of caught in throat) Exam Surgical H&P Exam: Normal: Heart, Normal: Lungs (clear) and Normal: Neurological (no confusion ) Exam Comment: vitals reviewed Plan Diagnosis/Plan: Unchanged I have reviewed the history and physical and performed a pertinent physical examination on my patient. No changes have occurred unless specified. Time Spent With Patient Time: Total time managing care of this patient today ____ minutes.
[2024-02-05] MEDS: Scopolamine 1.5 MG PATCH.TD.3 TRANSDERMA (07:06)
[2024-02-05] MEDS: Lactated Ringers 1,000 ML 50 ML IVCONT (07:06)
--- NOTE | 2024-02-05 07:10 | HO.ECTPROC ---
ECT Procedure Note Diagnosis/Treatment Date of Service: 02/05/24 Diagnosis: Major Depressive Disorder Previous ECT Date: 01/29/24 Treatment: Maintenance Interval Clinical Notes: The patient has again cycled out of her depression last ECT 1 week ago. 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 ECT Settings Device: THYMATRON DGx Electrode Placement: Rt temporal/ Lt frontal Program/Pulse Width: 0.25 Energy Percent: 100 Seizure Duration By EEG (in seconds): 32 Medications Administration General Anesthetic: Methohexital (80) Muscle Relaxant: Succinylcholine (80) Ancillary Medications Anti-emetics: Zofran - Pre ECT Miscillaneous Medications: Propofol (30) Airway Management Airway Management: Bag Mask Ventilation Treatment Recommendations No Changes Recommended: No change Notes: Patient appears to be doing quite well since change to right temporal left frontal will schedule ECT in 1 week and then try and gradually increase the length Pt Tolerated Procedure w/o Issue: Yes
== END 2024-02-05 08:39 | disposition home or self-care (01) ==
PROVIDERS: PCP Orthopaedic Surgery; Visit Provider Psychiatry & Neurology Psychiatry
PROC: (CPT 90870; principal; 2024-02-05 07:30)
DX: F33.2 Major depressive disorder, recurrent severe without psychotic features (principal); F41.1 Generalized anxiety disorder; M21.379 Foot drop, unspecified foot; F90.9 Attention-deficit hyperactivity disorder, unspecified type; I10 Essential (primary) hypertension; G25.2 Other specified forms of tremor; Z79.899 Other long term (current) drug therapy; Z87.891 Personal history of nicotine dependence
CPT/HCPCS: 90870; J0330; J2405; J2704

== ENCOUNTER → 2024-02-05 05:49 | Outpatient (BNV) | payer MEDICARE, SELFPAY | PROVIDERS: PCP Orthopaedic Surgery; Visit Provider Psychiatry & Neurology Psychiatry | DX: F33.3 Major depressive disorder, recurrent, severe with psychotic symptoms (principal) | CPT/HCPCS: 90870 ==

== ENCOUNTER 2024-02-12 05:45 | Day surgery (SDC) | payer MEDICARE, SELFPAY ==
[2024-02-12] VITALS (8 sets, daily range): BP systolic 101–164; BP diastolic 57–75; PULSE 76–86; RESP 13–20; TEMP 36.3–36.6; O2SAT 94–98; BMI 22.7
[2024-02-12] MEDS: Scopolamine 1.5 MG PATCH.TD.3 TRANSDERMA (06:52)
--- NOTE | 2024-02-12 07:14 | MHC.SHP ---
Pre-Procedural Eval Section A - 24 Hr Update-Section A only Date of Service: 02/12/24 The patient is an INPATIENT: No Changes since office visit: No Cold of Flu in the past 2 weeks, No New Medical Problems, No Changes in Medication and No Patient answered all questions The patient has been examined within 24 hours of the surgical procedure. The History & Physical has been completed within 30 days and I have reviewed it.: Yes Section B - Complete if H&P > 30 days Chief Complaint: Major depressive disorder, recurrent, severe with Allergies: Allergies Allergy/AdvReac Type Severity Reaction Status Date / Time No Known Allergies Allergy Verified 08/27/23 10:27 Plan I have reviewed the history and physical and performed a pertinent physical examination on my patient. No changes have occurred unless specified. Time Spent With Patient Time: Total time managing care of this patient today ____ minutes.
--- NOTE | 2024-02-12 07:26 | HO.ECTPROC ---
ECT Procedure Note Diagnosis/Treatment Date of Service: 02/12/24 Diagnosis: Bipolar disorder Previous ECT Date: 02/05/24 Treatment: Maintenance Interval Clinical Notes: The patient reported improvement of depression with the last ECT. No side effects with the last ECT. ECT done as usual, no complications, woke up well. Time: Total time managing care of this patient today __30__ minutes. ECT Settings Device: THYMATRON DGx Electrode Placement: Rt temporal/ Lt frontal Program/Pulse Width: 0.25 Energy Percent: 100 Seizure Duration By EEG (in seconds): 37 By Motor Observation (in seconds): 22 Medications Administration General Anesthetic: Methohexital (80) Muscle Relaxant: Succinylcholine (80) Ancillary Medications Anti-emetics: Zofran - Pre ECT Miscillaneous Medications: Propofol Airway Management Airway Management: Bag Mask Ventilation Treatment Recommendations No Changes Recommended: No change Pt Tolerated Procedure w/o Issue: Yes
== END 2024-02-12 08:45 | disposition home or self-care (01) ==
PROVIDERS: Psychiatry & Neurology Psychiatry; PCP Orthopaedic Surgery; Visit Provider Psychiatry & Neurology Psychiatry
PROC: (CPT 90870; principal; 2024-02-12 07:30)
DX: F33.2 Major depressive disorder, recurrent severe without psychotic features (principal); F41.1 Generalized anxiety disorder; I10 Essential (primary) hypertension; F90.9 Attention-deficit hyperactivity disorder, unspecified type; Z79.899 Other long term (current) drug therapy; Z87.891 Personal history of nicotine dependence
CPT/HCPCS: 90870; J0330; J2405; J2704

== ENCOUNTER → 2024-02-12 05:45 | Outpatient (BNV) | payer MEDICARE, SELFPAY | PROVIDERS: PCP Orthopaedic Surgery; Visit Provider Psychiatry & Neurology Psychiatry | DX: F33.3 Major depressive disorder, recurrent, severe with psychotic symptoms (principal) | CPT/HCPCS: 90870 ==

== ENCOUNTER 2024-02-22 05:47 | Day surgery (SDC) | payer MEDICARE, SELFPAY ==
[2024-02-22] VITALS (7 sets, daily range): BP systolic 100–143; BP diastolic 55–89; PULSE 72–84; RESP 16–20; TEMP 36.4–36.8; O2SAT 96–98; BMI 21.7
--- NOTE | 2024-02-22 06:44 | HO.ANESPROP2 ---
[facility] Active Problems Active Problems: All Active Problems Major depressive disorder in partial remission (Acute) Delirium in remission (Acute) Major depressive disorder, recurrent, severe with psychotic features (Acute) Footdrop (Acute) Major depressive disorder, recurrent severe without psychotic features (Acute) Personality disorder (Acute) Organic catatonia (Acute) Abnormal EKG (Acute) Odynophagia (Acute) Paranoia (Acute) Dysphagia (Acute) Serotonin syndrome (Acute) Ataxia (Acute) Tremors of nervous system (Acute) Major depression in full remission (Acute) Memory deficit (Acute) ADHD (attention deficit hyperactivity disorder) (Acute) ZAC (generalized anxiety disorder) (Acute) Depression (Acute) Acute bacterial conjunctivitis of both eyes (Acute) Hypercalcemia (Acute) Hypothyroidism (Acute) Leukocytosis (Acute) Hypertension (Chronic) Past Medical History Medical History Urinary tract infection Depression Hypothyroidism ZAC (generalized anxiety disorder) Hypertension ADHD (attention deficit hyperactivity disorder) Family History Family History Other No pertinent family history Family history of problems with anesthesia: No Surgical History Surgical History H/O thumb surgery H/O cone biopsy of cervix History of Problems with Anesthesia: No Social History Social History Household Members: Spouse Household Members Other:: And two cats. Housing: House Do you presently have visiting nurse or other home services: No Unable to assess alcohol history related to: Unknown Alcohol intake: never Patient Tobacco Use Status: Former Tobacco user Quit Date: 20 years [facility] Tobacco use type: Cigarette Years Smoked: 20 e-Cigarette/Vaping Use: Never Used Second Hand Smoke Exposure: No Substance Use Type: Former Substance User and Marijuana Advance Directives: No Advance Directives Information Provided: Yes service: No Sexual orientation: Straight/Heterosexual Meds Allergies Allergy/AdvReac Type Severity Reaction Status Date / Time No Known Allergies Allergy Verified 08/27/23 10:27 Active Medications: Current Medications Lactated Ringer's (Lr) 1,000 mls @ 50 mls/hr IVCONT .Q20H [facility] Home Medications ?Medication ?Instructions ?Recorded ?Confirmed ?Last Taken ?Type fluticasone propionate 50 1 spray intranasal BID 08/27/23 08/27/23 Unknown History mcg/actuation nasal spray,suspension Exam Height,Weight and Vital Signs: Height 5 ft 1 in Weight 52.163 kg Last Vital Signs Temp 97.5 F 02/22/24 06:24 Pulse 72 02/22/24 06:24 Resp 18 02/22/24 06:24 BP 143/89 H 02/22/24 06:24 Pulse Ox 96 02/22/24 06:24 O2 Del Method Room Air 02/22/24 06:24 Airway Mallampati Class: II TM Dist: >3cm Neck ROM: Full Heart: rrr Lungs: cta Assessment and Plan Assessment Anesthesia Assessment: Anesthesia Plan Discussed and Chart Reviewed Final Anesthetic Review Family History of Problems with Anesthesia: No History of Problems with Anesthesia: No NPO: Yes ASA Class: III Final Preanesthetic Review: No Changes in Pt Med Stat, Meds/Allgs Chart Reviewed and Consent Obtained/Reviewed Patient Risk: Intermediate Procedure Risk: Intermediate Anesthetic Plan Anesthetic Plan: GA Disposition: Standard PACU
--- NOTE | 2024-02-22 06:59 | MHC.SHP ---
Pre-Procedural Eval Section A - 24 Hr Update-Section A only Date of Service: 02/22/24 The patient is an INPATIENT: No Changes since office visit: Yes New Medical Problems; No Cold of Flu in the past 2 weeks, No Changes in Medication and No Patient answered all questions The patient has been examined within 24 hours of the surgical procedure. The History & Physical has been completed within 30 days and I have reviewed it.: Yes Section B - Complete if H&P > 30 days Chief Complaint: Major depressive disorder, recurrent, severe with Details of Present Illness: The patient reported that she is feeling more depressed and anxious since now, she has a cast on her foot with nerve damage, followed as an outpatient Relevant Family History (Specify if Yes): Yes Relevant Social History: None Present Medications: see Short Stay Collaborative assessment Medical History: No relevant PMH History of Previous Operations: No relevant previous surgery Allergies: Allergies Allergy/AdvReac Type Severity Reaction Status Date / Time No Known Allergies Allergy Verified 08/27/23 10:27 Review of Systems Sugical H&P ROS: Negative: Constitution, Cardiovascular, Respiratory, Neurological, Psychiatric, Hem-Onc, Allergic/Immunologic, Gastrointestinal, Genitourinary, Integumentary, Endocrine and Eyes/Ears/Nose/Throat and Yes, Specify: Musculoskeletal (cast on foot) Exam Surgical H&P Exam: Normal: HEENT, Normal: Heart, Normal: Lungs, Normal: Extremities, Normal: Abdomen, Normal: Skin and Normal: Neurological Plan Diagnosis/Plan: Unchanged I have reviewed the history and physical and performed a pertinent physical examination on my patient. No changes have occurred unless specified. Time Spent With Patient Time: Total time managing care of this patient today _30___ minutes.
[2024-02-22] MEDS: Scopolamine 1.5 MG PATCH.TD.3 TRANSDERMA (07:01)
--- NOTE | 2024-02-22 07:01 | HO.ECTPROC ---
ECT Procedure Note Diagnosis/Treatment Date of Service: 02/22/24 Diagnosis: Bipolar disorder Previous ECT Date: 02/12/24 Treatment: Maintenance Interval Clinical Notes: The patient reported exacerbation of depression in correlation with several stressors, she has a cast on her foot and apparently, there is nerve damage with a drop onher foot. She was requesting increasing the frequency of the ECT twice a week. She denies side effects with the previous ECT. ECT done as usual, no complications, woke up well. Time: Total time managing care of this patient today __30__ minutes. ECT Settings Device: THYMATRON DGx Electrode Placement: Rt temporal/ Lt frontal Program/Pulse Width: 0.25 Energy Percent: 100 Seizure Duration By EEG (in seconds): 29 By Motor Observation (in seconds): 12 Medications Administration General Anesthetic: Methohexital (80) Muscle Relaxant: Succinylcholine (80) Ancillary Medications Miscillaneous Medications: Propofol Airway Management Airway Management: Bag Mask Ventilation Treatment Recommendations No Changes Recommended: No change Pt Tolerated Procedure w/o Issue: Yes
[2024-02-22] MEDS: Lactated Ringers 1,000 ML 50 ML IVCONT (07:02)
== END 2024-02-22 08:48 | disposition home or self-care (01) ==
PROVIDERS: PCP Orthopaedic Surgery; Visit Provider Psychiatry & Neurology Psychiatry
PROC: (CPT 90870; principal; 2024-02-22 07:00)
DX: F31.30 Bipolar disorder, current episode depressed, mild or moderate severity, unspecified (principal); I10 Essential (primary) hypertension; F90.9 Attention-deficit hyperactivity disorder, unspecified type; M21.372 Foot drop, left foot; Z79.899 Other long term (current) drug therapy
CPT/HCPCS: 90870; J0330; J2405; J2704

== ENCOUNTER → 2024-02-22 05:47 | Outpatient (BNV) | payer MEDICARE, SELFPAY | PROVIDERS: PCP Orthopaedic Surgery; Visit Provider Psychiatry & Neurology Psychiatry | DX: F33.3 Major depressive disorder, recurrent, severe with psychotic symptoms (principal) | CPT/HCPCS: 90870 ==

== ENCOUNTER 2024-02-26 05:51 | Day surgery (SDC) | payer MEDICARE, SELFPAY ==
[2024-02-26] VITALS (8 sets, daily range): BP systolic 110–162; BP diastolic 62–81; PULSE 70–87; RESP 16–22; TEMP 36.2; O2SAT 94–97; BMI 20.8
--- NOTE | 2024-02-26 06:48 | P.CONAN_ITS ---
[facility] Active Problems Active Problems: All Active Problems Major depressive disorder in partial remission (Acute) Delirium in remission (Acute) Major depressive disorder, recurrent, severe with psychotic features (Acute) Footdrop (Acute) Major depressive disorder, recurrent severe without psychotic features (Acute) Personality disorder (Acute) Organic catatonia (Acute) Abnormal EKG (Acute) Odynophagia (Acute) Paranoia (Acute) Dysphagia (Acute) Serotonin syndrome (Acute) Ataxia (Acute) Tremors of nervous system (Acute) Major depression in full remission (Acute) Memory deficit (Acute) ADHD (attention deficit hyperactivity disorder) (Acute) ZAC (generalized anxiety disorder) (Acute) Depression (Acute) Acute bacterial conjunctivitis of both eyes (Acute) Hypercalcemia (Acute) Hypothyroidism (Acute) Leukocytosis (Acute) Hypertension (Chronic) Past Medical History Medical History Urinary tract infection Depression Hypothyroidism ZAC (generalized anxiety disorder) Hypertension ADHD (attention deficit hyperactivity disorder) Family History Family History Other No pertinent family history Family history of problems with anesthesia: No Surgical History Surgical History H/O thumb surgery H/O cone biopsy of cervix History of Problems with Anesthesia: No Social History Social History Household Members: Spouse Household Members Other:: And two cats. Housing: House Do you presently have visiting nurse or other home services: No Unable to assess alcohol history related to: Unknown Alcohol intake: never Patient Tobacco Use Status: Former Tobacco user Quit Date: 20 years agp Tobacco use type: Cigarette Years Smoked: 20 e-Cigarette/Vaping Use: Never Used Second Hand Smoke Exposure: No Substance Use Type: Former Substance User and Marijuana Advance Directives: No Advance Directives Information Provided: Yes service: No Sexual orientation: Straight/Heterosexual Meds Allergies Allergy/AdvReac Type Severity Reaction Status Date / Time No Known Allergies Allergy Verified 08/27/23 10:27 Active Medications: Current Medications Lactated Ringer's (Lr) 1,000 mls @ 50 mls/hr IVCONT .Q20H [facility] Scopolamine (Scopolamine 1.5 Mg Patch.Td.3) 1.5 mg TRANSDERMA PREOP ONE Stop: 02/26/24 06:48 Home Medications ?Medication ?Instructions ?Recorded ?Confirmed ?Last Taken ?Type fluticasone propionate 50 1 spray intranasal BID 08/27/23 08/27/23 Unknown History mcg/actuation nasal spray,suspension Exam Height,Weight and Vital Signs: Height 5 ft 1 in Weight 49.895 kg Last Vital Signs Temp 97.2 F 02/26/24 06:44 Pulse 78 02/26/24 06:44 Resp 16 02/26/24 06:44 BP 162/81 H 02/26/24 06:44 Pulse Ox 96 02/26/24 06:44 O2 Del Method Room Air 02/26/24 06:44 Airway Mallampati Class: II TM Dist: >3cm Neck ROM: Full Heart: rrr Lungs: cta Assessment and Plan Assessment Anesthesia Assessment: Anesthesia Plan Discussed and Chart Reviewed Final Anesthetic Review Family History of Problems with Anesthesia: No History of Problems with Anesthesia: No NPO: Yes ASA Class: III Final Preanesthetic Review: No Changes in Pt Med Stat, Meds/Allgs Chart Reviewed and Consent Obtained/Reviewed Patient Risk: Intermediate Procedure Risk: Intermediate Anesthetic Plan Anesthetic Plan: GA Disposition: Standard PACU
[2024-02-26] MEDS: Scopolamine 1.5 MG PATCH.TD.3 TRANSDERMA (07:02)
--- NOTE | 2024-02-26 07:04 | MHC.SHP ---
Pre-Procedural Eval Section A - 24 Hr Update-Section A only Date of Service: 02/26/24 Section B - Complete if H&P > 30 days Chief Complaint: Major depressive disorder, recurrent, severe with Details of Present Illness: improved mood no medical changes no si Relevant Social History: None Present Medications: see Short Stay Collaborative assessment Medical History: Significant History (periph foot drop) Allergies: Allergies Allergy/AdvReac Type Severity Reaction Status Date / Time No Known Allergies Allergy Verified 08/27/23 10:27 Review of Systems Sugical H&P ROS: Negative: Respiratory and Yes, Specify: Neurological (foot drop), Psychiatric (improved mood) and Eyes/Ears/Nose/Throat (feeling something in throat ) Exam Surgical H&P Exam: Normal: Heart and Normal: Lungs and Significant Findings: Neurological (foot drop) Plan Diagnosis/Plan: Unchanged I have reviewed the history and physical and performed a pertinent physical examination on my patient. No changes have occurred unless specified. Time Spent With Patient Time: Total time managing care of this patient today ____ minutes.
--- NOTE | 2024-02-26 07:10 | HO.ECTPROC ---
ECT Procedure Note Diagnosis/Treatment Date of Service: 02/26/24 Diagnosis: Major Depressive Disorder Previous ECT Date: 02/22/24 Treatment: Maintenance Interval Clinical Notes: Patient has had some increase in depression anxiety preoccupation with peripheral nerve footdrop which she has had for an extended period of time She denies side effects with the previous ECT. If does not respond to unilateral will change to right temporal left frontal Time: Total time managing care of this patient today ____ minutes. ECT Settings Device: THYMATRON DGx Electrode Placement: Rt temporal/ Lt frontal Program/Pulse Width: 0.25 Energy Percent: 100 Seizure Duration By EEG (in seconds): 29 Medications Administration General Anesthetic: Methohexital (80) Muscle Relaxant: Succinylcholine (80) Ancillary Medications Miscillaneous Medications: Propofol Airway Management Airway Management: Bag Mask Ventilation Treatment Recommendations No Changes Recommended: No change Pt Tolerated Procedure w/o Issue: Yes
== END 2024-02-26 08:48 | disposition home or self-care (01) ==
PROVIDERS: PCP Internal Medicine; Visit Provider Psychiatry & Neurology Psychiatry
PROC: (CPT 90870; principal; 2024-02-26 08:30)
DX: F33.2 Major depressive disorder, recurrent severe without psychotic features (principal); M21.379 Foot drop, unspecified foot; F41.1 Generalized anxiety disorder; I10 Essential (primary) hypertension; F90.9 Attention-deficit hyperactivity disorder, unspecified type; E03.9 Hypothyroidism, unspecified; Z79.51 Long term (current) use of inhaled steroids; Z79.899 Other long term (current) drug therapy
CPT/HCPCS: 90870; J0330; J2405; J2704

== ENCOUNTER → 2024-02-26 05:51 | Outpatient (BNV) | payer MEDICARE, SELFPAY | PROVIDERS: PCP Internal Medicine; Visit Provider Psychiatry & Neurology Psychiatry | DX: F33.3 Major depressive disorder, recurrent, severe with psychotic symptoms (principal) | CPT/HCPCS: 90870 ==

== ENCOUNTER 2024-03-01 15:13 | Outpatient (AMB) | payer MEDICARE, SELFPAY ==
--- NOTE | 2024-03-01 15:37 | A.OFFPSYCH_ITS ---
Intake Intake Visit Reasons: depression Allergies No Known Allergies Allergy (Verified 08/27/23 10:27) Medication List - Last Reconciled 03/01/24 by Yovany Shearer MD amlodipine 5 mg See Protocol PO DAILY armodafinil 150 mg PO QAM ascorbic acid (vitamin C) (Vitamin C) 2,000 mg (4 x 500 mg) PO BEDTIME 30 days bupropion HCl SR (Wellbutrin SR) 100 mg PO BID fluticasone propionate 50 mcg/actuation 1 spray intranasal BID lisinopril 15 mg See Protocol PO DAILY 90 days lorazepam 0.5 mg PO Q8H PRN melatonin 6 mg (2 x 3 mg) PO BEDTIME PRN multivitamin (Daily-Dara tablet) 1 tab PO DAILY 30 days omeprazole 20 mg PO DAILY@0630 quetiapine orally; 1 bedtime 1/2-1 daily prn obsessional thinking 30 days vortioxetine (Trintellix) 10 mg PO DAILY HPI- Psychiatric Chief Complaint: depression HPI Narrative: The patient continues to have mixed symptoms functioning somewhat better at times going to the [employer] functioning somewhat better but continues to have periods of amotivation and periods of intense anxiety regarding something being wrong with her swallowing or her throat which has been a chronic issue. She is supposed to see ENT in March but is having a great deal of difficulty tolerating her anxiety and worry. She has had this often on for a number of years we have been trying to keep medication down since she had failed a number of medication trials and eventually had a delirium that seemed ultimately perhaps to have been precipitated by ketamine . I have recommended consultation by [facility] but they have been unresponsive. Patient does seem to respond to ECT has some mild short-term memory disturbance but she and her are both concerned regarding not being able to get away from weekly ECT. Patient's seems particularly frustrated the patient has been clinically depressed often on for least 2 and half years we have not tried an MAO inhibitor Past Psychiatric History: -Pt sees Dr. Shearer in OP setting recent hospitalization at the [facility] Has had often on relapses over the past year and half -Remote hx of IPLOC 12 yrs ago, recent admissions at [facility] since 2020 with at least 4 admissions in the last 2 years Mental Status Exam Mental Status Exam Patient Appearance: Appropriate Level of Consciousness: Awake and Appropriate Patient Behavior: Appropriate Behavior Comments: olivo affect less depressed less anxiety Mood Description: Constricted, Depressed and Anxious Affect Description: Constricted Patient Cognition Impaired: No Ability to Follow Directions: Good Speech Pattern: Clear Memory Description: Intact Hallucinations: None Delusions: Not Present Thought Process: Intact Thought Content: positive for Obsessional Thoughts, positive for Preoccupation, negative for Suicidal Ideation or negative for Homicidal Ideation Depressive Symptoms: Loss of Energy Assessment and Plan Assessment & Plan (1) Major depressive disorder in partial remission: Status: Acute Code(s): F32.4 - Major depressive disorder, single episode, in partial remission (2) ZAC (generalized anxiety disorder): Status: Acute Code(s): F41.1 - Generalized anxiety disorder (3) ADHD (attention deficit hyperactivity disorder): Status: Acute Code(s): F90.9 - Attention-deficit hyperactivity disorder, unspecified type Plan Looking for 2nd opinion patient on our modafinil for lethargy fatigue associated with depression quetiapine at bedtime for anxiety and rumination can also take during the day have added Wellbutrin for augmentation patient continues on Trintellix monitor for confusional states Change to armodafinil from modafinil continue ECT as tolerated and required monitor for monitor for adverse effects seem to do better with right temporal left frontal versus right unilateral Medications: New quetiapine orally; 1 bedtime 1/2-1 daily prn obsessional thinking 60 tabs 2RF 30 days quetiapine orally; 1 bedtime 1/2-1 daily prn obsessional thinking 60 tabs 2RF 30 days armodafinil 150 mg PO QAM 30 tabs 2RF bupropion HCl SR (Wellbutrin SR) 100 mg PO BID 60 tabs 3RF armodafinil 150 mg PO QAM 30 tabs 2RF Discontinued brimonidine 0.2% Discontinued Reason: No Longer Medically Relevant 1 drp ophthalmic (eye) BID 10 mL 0RF olanzapine Discontinued Reason: Doctor's Order 2.5 mg PO BEDTIME 30 days 90 tabs 1RF modafinil 1/2 tab x 1 week then 1 tab daily Discontinued Reason: Doctor's Order 100 mg PO DAILY 30 days 30 tabs 1RF bupropion HCl XL Discontinued Reason: Doctor's Order 150 mg PO DAILY 90 tabs 1RF Counseling and coordination of Care Details: I spent [] minutes reviewing the record, seeing the patient and documenting in the medical record. Counseling provided to the patient/caregiver as outlined below. Addressed patient/caregiver concerns regarding current medication regime including eff ective adherence. Addressed patient/caregiver concerns regarding diagnosis and prognosis including accuracy of diagnosis, prognosis over time, impact of diagnosis. Addressed patient/caregiver concerns regarding impact of recent stressors. [facility] Medical History Urinary tract infection Depression Hypothyroidism ZAC (generalized anxiety disorder) Hypertension ADHD (attention deficit hyperactivity disorder) Surgical History H/O thumb surgery H/O cone biopsy of cervix Family History Other No pertinent family history Social History Household Members: Spouse Household Members Other:: And two cats. 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
== END 2024-03-01 17:51 | disposition home or self-care (01) ==
PROVIDERS: PCP Internal Medicine; Visit Provider Psychiatry & Neurology Psychiatry
DX: F32.4 Major depressive disorder, single episode, in partial remission (principal); F41.1 Generalized anxiety disorder; F90.9 Attention-deficit hyperactivity disorder, unspecified type
CPT/HCPCS: 99214

== ENCOUNTER → 2024-03-01 15:13 | Outpatient (BNVA) | payer MEDICARE, SELFPAY | PROVIDERS: PCP Internal Medicine; Visit Provider Psychiatry & Neurology Psychiatry | DX: F32.4 Major depressive disorder, single episode, in partial remission (principal); F41.1 Generalized anxiety disorder; F90.9 Attention-deficit hyperactivity disorder, unspecified type | CPT/HCPCS: 99212 ==

== ENCOUNTER 2024-03-04 07:41 | Day surgery (SDC) | payer MEDICARE, SELFPAY ==
[2024-03-04 08:22] VITALS: BP 143/82; PULSE 83; RESP 16; TEMP 36.4; O2SAT 93; BMI 20.8
--- NOTE | 2024-03-04 08:45 | HO.ANESPROP2 ---
HPI - Anesthesia Eval Consult details Narrative: 73 yo female patient for ECT PMFSH Active Problems Active Problems: All Active Problems Major depressive disorder in partial remission (Acute) Delirium in remission (Acute) Major depressive disorder, recurrent, severe with psychotic features (Acute) Footdrop (Acute) Major depressive disorder, recurrent severe without psychotic features (Acute) Personality disorder (Acute) Organic catatonia (Acute) Abnormal EKG (Acute) Odynophagia (Acute) Paranoia (Acute) Dysphagia (Acute) Serotonin syndrome (Acute) Ataxia (Acute) Tremors of nervous system (Acute) Major depression in full remission (Acute) Memory deficit (Acute) ADHD (attention deficit hyperactivity disorder) (Acute) ZAC (generalized anxiety disorder) (Acute) Depression (Acute) Acute bacterial conjunctivitis of both eyes (Acute) Hypercalcemia (Acute) Hypothyroidism (Acute) Leukocytosis (Acute) Hypertension (Chronic) Past Medical History Medical History Urinary tract infection Depression Hypothyroidism ZAC (generalized anxiety disorder) Hypertension ADHD (attention deficit hyperactivity disorder) Family History Family History Other No pertinent family history Family history of problems with anesthesia: No Surgical History Surgical History H/O thumb surgery H/O cone biopsy of cervix History of Problems with Anesthesia: No Social History Social History Household Members: Spouse Household Members Other:: And two cats. Housing: House Do you presently have visiting nurse or other home services: No Unable to assess alcohol history related to: Unknown Alcohol intake: never Patient Tobacco Use Status: Former Tobacco user Quit Date: 20 years agp Tobacco use type: Cigarette Years Smoked: 20 e-Cigarette/Vaping Use: Never Used Second Hand Smoke Exposure: No Substance Use Type: Former Substance User and Marijuana Advance Directives: No Advance Directives Information Provided: Yes service: No Sexual orientation: Straight/Heterosexual Meds Allergies Allergy/AdvReac Type Severity Reaction Status Date / Time No Known Allergies Allergy Verified 08/27/23 10:27 Home Medications ?Medication ?Instructions ?Recorded ?Confirmed ?Last Taken ?Type fluticasone propionate 50 1 spray intranasal BID 08/27/23 03/01/24 Unknown History mcg/actuation nasal spray,suspension Exam Height,Weight and Vital Signs: Height 5 ft 1 in Weight 49.895 kg Last Vital Signs Temp 97.5 F 03/04/24 08:22 Pulse 83 03/04/24 08:22 Resp 16 03/04/24 08:22 BP 143/82 H 03/04/24 08:22 Pulse Ox 93 03/04/24 08:22 O2 Del Method Room Air 03/04/24 08:22 Airway Mallampati Class: III TM Dist: >3cm Neck ROM: Full Loose/Missing/Broken Teeth: No (Denies broken, loose, missing teeth) Heart: RRR Lungs: CTAB Assessment and Plan Assessment Anesthesia Assessment: Anesthesia Plan Discussed and Chart Reviewed Final Anesthetic Review Family History of Problems with Anesthesia: No History of Problems with Anesthesia: No NPO: Yes ASA Class: III Final Preanesthetic Review: No Changes in Pt Med Stat, Meds/Allgs Chart Reviewed, Consent Obtained/Reviewed and Anes Risks/Benef Reviewed Patient Risk: Intermediate Procedure Risk: Intermediate Assessment/Block/Sedation in SS: Assess/Block/Sedation-SS Anesthetic Plan Anesthetic Plan: GA Disposition: Standard PACU
[2024-03-04] MEDS: Lactated Ringers 1,000 ML 50 ML IVCONT (08:54)
--- NOTE | 2024-03-04 09:20 | MHC.SHP ---
Pre-Procedural Eval Section A - 24 Hr Update-Section A only Date of Service: 03/04/24 Section B - Complete if H&P > 30 days Chief Complaint: Major depressive disorder, recurrent, severe with Details of Present Illness: improved mood no medical changes no si now on seroquel armodafanil Relevant Social History: None Present Medications: see Short Stay Collaborative assessment Medical History: Significant History (periph foot drop) Allergies: Allergies Allergy/AdvReac Type Severity Reaction Status Date / Time No Known Allergies Allergy Verified 08/27/23 10:27 Review of Systems Sugical H&P ROS: Negative: Respiratory and Yes, Specify: Neurological (foot drop), Psychiatric (some dep sx ) and Eyes/Ears/Nose/Throat (feeling something in throat ) Exam Surgical H&P Exam: Normal: Heart and Normal: Lungs and Significant Findings: Neurological (foot drop) Exam Comment: bp 143/83 Plan Diagnosis/Plan: Unchanged I have reviewed the history and physical and performed a pertinent physical examination on my patient. No changes have occurred unless specified. Time Spent With Patient Time: Total time managing care of this patient today ____ minutes.
--- NOTE | 2024-03-04 09:22 | HO.ECTPROC ---
ECT Procedure Note Diagnosis/Treatment Date of Service: 03/04/24 Diagnosis: Bipolar disorder Previous ECT Date: 02/26/24 Treatment: Maintenance Interval Clinical Notes: Patient has had some depressive symptoms but continues to be able function has been able to go to [employer] continues active recently started on armodafinil Seroquel at bedtime Time: Total time managing care of this patient today ____ minutes. ECT Settings Device: THYMATRON DGx Electrode Placement: Rt temporal/ Lt frontal Program/Pulse Width: 0.25 Energy Percent: 100 Seizure Duration By EEG (in seconds): 18 Medications Administration General Anesthetic: Methohexital (80) Muscle Relaxant: Succinylcholine (80) Ancillary Medications Miscillaneous Medications: Propofol Airway Management Airway Management: Bag Mask Ventilation Treatment Recommendations Notes: If not effective consider change to bitemporal or increase pulse width 0.5 Pt Tolerated Procedure w/o Issue: Yes
[2024-03-04 09:43] VITALS: BP 150/69; PULSE 95; RESP 24; TEMP 36.9; O2SAT 96
[2024-03-04] MEDS: Scopolamine 1.5 MG PATCH.TD.3 TRANSDERMA (09:44)
[2024-03-04 09:48] VITALS: BP 151/80; PULSE 88; RESP 22; O2SAT 96
[2024-03-04 09:58] VITALS: BP 152/76; PULSE 92; RESP 19; O2SAT 97
[2024-03-04 10:14] VITALS: BP 143/84; PULSE 84; RESP 16; TEMP 36.7; O2SAT 97
== END 2024-03-04 10:25 | disposition home or self-care (01) ==
PROVIDERS: PCP Internal Medicine; Visit Provider Psychiatry & Neurology Psychiatry
PROC: (CPT 90870; principal; 2024-03-04 10:00)
DX: F31.30 Bipolar disorder, current episode depressed, mild or moderate severity, unspecified (principal); M21.379 Foot drop, unspecified foot; F41.1 Generalized anxiety disorder; I10 Essential (primary) hypertension; F90.9 Attention-deficit hyperactivity disorder, unspecified type; E03.9 Hypothyroidism, unspecified; Z79.51 Long term (current) use of inhaled steroids; Z79.899 Other long term (current) drug therapy; Z87.891 Personal history of nicotine dependence
CPT/HCPCS: 90870; J0330; J2405; J2704

== ENCOUNTER → 2024-03-04 07:41 | Outpatient (BNV) | payer MEDICARE, SELFPAY | PROVIDERS: PCP Internal Medicine; Visit Provider Psychiatry & Neurology Psychiatry | DX: F33.3 Major depressive disorder, recurrent, severe with psychotic symptoms (principal) | CPT/HCPCS: 90870 ==

== ENCOUNTER 2024-03-11 05:48 | Day surgery (SDC) | payer MEDICARE, SELFPAY ==
[2024-03-11 06:30] VITALS: BP 141/73; PULSE 74; RESP 16; TEMP 35.8; O2SAT 97; BMI 20.8
--- NOTE | 2024-03-11 06:50 | P.CONAN_ITS ---
[facility] Active Problems Active Problems: All Active Problems Major depressive disorder in partial remission (Acute) Delirium in remission (Acute) Major depressive disorder, recurrent, severe with psychotic features (Acute) Footdrop (Acute) Major depressive disorder, recurrent severe without psychotic features (Acute) Personality disorder (Acute) Organic catatonia (Acute) Abnormal EKG (Acute) Odynophagia (Acute) Paranoia (Acute) Dysphagia (Acute) Serotonin syndrome (Acute) Ataxia (Acute) Tremors of nervous system (Acute) Major depression in full remission (Acute) Memory deficit (Acute) ADHD (attention deficit hyperactivity disorder) (Acute) ZAC (generalized anxiety disorder) (Acute) Depression (Acute) Acute bacterial conjunctivitis of both eyes (Acute) Hypercalcemia (Acute) Hypothyroidism (Acute) Leukocytosis (Acute) Hypertension (Chronic) Past Medical History Medical History Urinary tract infection Depression Hypothyroidism ZAC (generalized anxiety disorder) Hypertension ADHD (attention deficit hyperactivity disorder) Family History Family History Other No pertinent family history Family history of problems with anesthesia: No Surgical History Surgical History H/O thumb surgery H/O cone biopsy of cervix History of Problems with Anesthesia: No Social History Social History Household Members: Spouse Household Members Other:: And two cats. Housing: House Do you presently have visiting nurse or other home services: No Unable to assess alcohol history related to: Unknown Alcohol intake: never Patient Tobacco Use Status: Former Tobacco user Quit Date: 20 years agp Tobacco use type: Cigarette Years Smoked: 20 e-Cigarette/Vaping Use: Never Used Second Hand Smoke Exposure: No Substance Use Type: Former Substance User and Marijuana Advance Directives: No Advance Directives Information Provided: Yes service: No Sexual orientation: Straight/Heterosexual Meds Allergies Allergy/AdvReac Type Severity Reaction Status Date / Time No Known Allergies Allergy Verified 08/27/23 10:27 Active Medications: Current Medications Lactated Ringer's (Lr) 1,000 mls @ 50 mls/hr IVCONT .Q20H NORBERTO Scopolamine (Scopolamine 1.5 Mg Patch.Td.3) 1.5 mg TRANSDERMA PREOP ONE Stop: 03/11/24 06:50 Home Medications ?Medication ?Instructions ?Recorded ?Confirmed ?Last Taken ?Type fluticasone propionate 50 1 spray intranasal BID 08/27/23 03/01/24 Unknown History mcg/actuation nasal spray,suspension Exam Height,Weight and Vital Signs: Height 5 ft 1 in Weight 49.895 kg Last Vital Signs Temp 96.5 F L 03/11/24 06:30 Pulse 74 03/11/24 06:30 Resp 16 03/11/24 06:30 BP 141/73 H 03/11/24 06:30 Pulse Ox 97 03/11/24 06:30 O2 Del Method Room Air 03/11/24 06:30 Airway Mallampati Class: II TM Dist: >3cm Neck ROM: Full Heart: rrr Lungs: cta Assessment and Plan Assessment Anesthesia Assessment: Anesthesia Plan Discussed and Chart Reviewed Final Anesthetic Review Family History of Problems with Anesthesia: No History of Problems with Anesthesia: No NPO: Yes ASA Class: III Final Preanesthetic Review: No Changes in Pt Med Stat, Meds/Allgs Chart Reviewed and Consent Obtained/Reviewed Patient Risk: Intermediate Procedure Risk: Intermediate Anesthetic Plan Anesthetic Plan: GA Disposition: Standard PACU
[2024-03-11] MEDS: Scopolamine 1.5 MG PATCH.TD.3 TRANSDERMA (06:58)
[2024-03-11] MEDS: Lactated Ringers 1,000 ML 50 ML IVCONT (06:58)
--- NOTE | 2024-03-11 07:06 | MHC.SHP ---
Pre-Procedural Eval Section A - 24 Hr Update-Section A only Date of Service: 03/11/24 Section B - Complete if H&P > 30 days Chief Complaint: Major depressive disorder, recurrent, severe with Details of Present Illness: recurrent depression more stable inc fx Relevant Social History: None Allergies: Allergies Allergy/AdvReac Type Severity Reaction Status Date / Time No Known Allergies Allergy Verified 08/27/23 10:27 Review of Systems Sugical H&P ROS: Negative: Cardiovascular and Respiratory and Yes, Specify: Eyes/Ears/Nose/Throat (throat clearing ? dysphagia ) Exam Surgical H&P Exam: Not Evaluated: Heart and Not Evaluated: Lungs Exam Comment: alert no confusion Plan Diagnosis/Plan: Unchanged I have reviewed the history and physical and performed a pertinent physical examination on my patient. No changes have occurred unless specified. Time Spent With Patient Time: Total time managing care of this patient today ____ minutes.
[2024-03-11 07:29] VITALS: BP 145/73; PULSE 91; RESP 21; TEMP 36.3; O2SAT 95
--- NOTE | 2024-03-11 07:31 | HO.ECTPROC ---
ECT Procedure Note Diagnosis/Treatment Date of Service: 03/11/24 Diagnosis: Major Depressive Disorder Previous ECT Date: 03/04/24 Treatment: Maintenance Interval Clinical Notes: Patient feeling better improved mood and functioning has been gardening going outside doing more normal activities. We discussed going to every 2 weeks no significant side effects noted by patient clear sensorium Brevital was lowered to 70 mg this was well tolerated Time: Total time managing care of this patient today __30__ minutes. ECT Settings Device: THYMATRON DGx Electrode Placement: Rt temporal/ Lt frontal Program/Pulse Width: 0.25 Energy Percent: 100 Seizure Duration By EEG (in seconds): 18 Medications Administration General Anesthetic: Methohexital (70) Muscle Relaxant: Succinylcholine (80) Ancillary Medications Anti-emetics: Zofran - Pre ECT and Other (Scopolamine patch) Airway Management Airway Management: Bag Mask Ventilation Treatment Recommendations No Changes Recommended: No change Notes: f/u tx 2 weeks start to wean as tolerated change to bitemp Pt Tolerated Procedure w/o Issue: Yes
[2024-03-11 07:34] VITALS: BP 140/71; PULSE 86; RESP 22; O2SAT 96
[2024-03-11 07:39] VITALS: BP 134/72; PULSE 86; RESP 21; O2SAT 96
[2024-03-11 07:44] VITALS: BP 141/71; PULSE 91; RESP 17; O2SAT 97
[2024-03-11 07:59] VITALS: BP 152/63; PULSE 82; RESP 17; TEMP 36.3; O2SAT 97
== END 2024-03-11 08:20 | disposition home or self-care (01) ==
PROVIDERS: PCP Internal Medicine; Visit Provider Psychiatry & Neurology Psychiatry
PROC: (CPT 90870; principal; 2024-03-11 07:00)
DX: F33.41 Major depressive disorder, recurrent, in partial remission (principal); M21.379 Foot drop, unspecified foot; F41.1 Generalized anxiety disorder; I10 Essential (primary) hypertension; F90.9 Attention-deficit hyperactivity disorder, unspecified type; E03.9 Hypothyroidism, unspecified; Z79.51 Long term (current) use of inhaled steroids; Z79.899 Other long term (current) drug therapy; Z87.891 Personal history of nicotine dependence
CPT/HCPCS: 90870; J0330; J2405

== ENCOUNTER → 2024-03-11 05:48 | Outpatient (BNV) | payer MEDICARE, SELFPAY | PROVIDERS: PCP Internal Medicine; Visit Provider Psychiatry & Neurology Psychiatry | DX: F33.3 Major depressive disorder, recurrent, severe with psychotic symptoms (principal) | CPT/HCPCS: 90870 ==

== ENCOUNTER 2024-03-25 05:57 | Day surgery (SDC) | payer MEDICARE, SELFPAY ==
[2024-03-25] VITALS (8 sets, daily range): BP systolic 120–145; BP diastolic 66–80; PULSE 76–85; RESP 16; TEMP 36.6–36.8; O2SAT 94–99; BMI 21.3
--- NOTE | 2024-03-25 06:42 | HO.ANESPROP2 ---
[facility] Active Problems Active Problems: All Active Problems Major depressive disorder in partial remission (Acute) Delirium in remission (Acute) Major depressive disorder, recurrent, severe with psychotic features (Acute) Footdrop (Acute) Major depressive disorder, recurrent severe without psychotic features (Acute) Personality disorder (Acute) Organic catatonia (Acute) Abnormal EKG (Acute) Odynophagia (Acute) Paranoia (Acute) Dysphagia (Acute) Serotonin syndrome (Acute) Ataxia (Acute) Tremors of nervous system (Acute) Major depression in full remission (Acute) Memory deficit (Acute) ADHD (attention deficit hyperactivity disorder) (Acute) ZAC (generalized anxiety disorder) (Acute) Depression (Acute) Acute bacterial conjunctivitis of both eyes (Acute) Hypercalcemia (Acute) Hypothyroidism (Acute) Leukocytosis (Acute) Hypertension (Chronic) Past Medical History Medical History Urinary tract infection Depression Hypothyroidism ZAC (generalized anxiety disorder) Hypertension ADHD (attention deficit hyperactivity disorder) Family History Family History Other No pertinent family history Family history of problems with anesthesia: No Surgical History Surgical History H/O thumb surgery H/O cone biopsy of cervix History of Problems with Anesthesia: No Social History Social History Household Members: Spouse Household Members Other:: And two cats. Housing: House Do you presently have visiting nurse or other home services: No Unable to assess alcohol history related to: Unknown Alcohol intake: never Patient Tobacco Use Status: Former Tobacco user Quit Date: 20 years agp Tobacco use type: Cigarette Years Smoked: 20 e-Cigarette/Vaping Use: Never Used Second Hand Smoke Exposure: No Substance Use Type: Former Substance User and Marijuana Advance Directives: No Advance Directives Information Provided: Yes service: No Sexual orientation: Straight/Heterosexual Meds Allergies Allergy/AdvReac Type Severity Reaction Status Date / Time No Known Allergies Allergy Verified 08/27/23 10:27 Active Medications: Current Medications Sodium Chloride (Ns) 1,000 mls @ 50 mls/hr IVCONT .Q20H NORBERTO Scopolamine (Scopolamine 1.5 Mg Patch.Td.3) 1.5 mg TRANSDERMA PREOP ONE Stop: 03/25/24 06:41 Home Medications ?Medication ?Instructions ?Recorded ?Confirmed ?Last Taken ?Type fluticasone propionate 50 1 spray intranasal BID 08/27/23 03/01/24 Unknown History mcg/actuation nasal spray,suspension Exam Height,Weight and Vital Signs: Height 5 ft 1 in Weight 51.256 kg Last Vital Signs Temp 98.3 F 03/25/24 06:29 Pulse 80 03/25/24 06:29 Resp 16 03/25/24 06:29 BP 145/72 H 03/25/24 06:29 Pulse Ox 95 03/25/24 06:29 O2 Del Method Room Air 03/25/24 06:29 Airway Mallampati Class: II TM Dist: >3cm Neck ROM: Full Heart: rrr Lungs: cta Assessment and Plan Assessment Anesthesia Assessment: Anesthesia Plan Discussed Final Anesthetic Review Family History of Problems with Anesthesia: No History of Problems with Anesthesia: No NPO: Yes ASA Class: III Final Preanesthetic Review: No Changes in Pt Med Stat, Meds/Allgs Chart Reviewed and Consent Obtained/Reviewed Patient Risk: Intermediate Procedure Risk: Intermediate Anesthetic Plan Anesthetic Plan: GA Disposition: Standard PACU
[2024-03-25] MEDS: Scopolamine 1.5 MG PATCH.TD.3 TRANSDERMA (06:44)
--- NOTE | 2024-03-25 07:04 | MHC.SHP ---
Pre-Procedural Eval Section A - 24 Hr Update-Section A only Date of Service: 03/25/24 Section B - Complete if H&P > 30 days Chief Complaint: depression Details of Present Illness: recurrent depression more stable inc fx Relevant Social History: None Allergies: Allergies Allergy/AdvReac Type Severity Reaction Status Date / Time No Known Allergies Allergy Verified 08/27/23 10:27 Review of Systems Sugical H&P ROS: Negative: Cardiovascular and Respiratory and Yes, Specify: Eyes/Ears/Nose/Throat (throat clearing ? saw ent) Exam Surgical H&P Exam: Not Evaluated: Heart and Not Evaluated: Lungs Exam Comment: alert no confusion Plan Diagnosis/Plan: Unchanged I have reviewed the history and physical and performed a pertinent physical examination on my patient. No changes have occurred unless specified. Time Spent With Patient Time: Total time managing care of this patient today ____ minutes.
--- NOTE | 2024-03-25 07:09 | HO.ECTPROC ---
ECT Procedure Note Diagnosis/Treatment Date of Service: 03/25/24 Diagnosis: Major Depressive Disorder Previous ECT Date: 03/11/24 Treatment: Maintenance Interval Clinical Notes: Pt with some anxiety depressive relapse sx reassured by micheal ent tabitha will have ct sinuses Time: Total time managing care of this patient today ____ minutes. ECT Settings Device: THYMATRON DGx Electrode Placement: Bitemporal Program/Pulse Width: 0.25 Energy Percent: 100 Seizure Duration By EEG (in seconds): 17 Medications Administration General Anesthetic: Methohexital (70) Muscle Relaxant: Succinylcholine (80) Ancillary Medications Anti-emetics: Zofran - Pre ECT Airway Management Airway Management: Bag Mask Ventilation Treatment Recommendations No Changes Recommended: No change Notes: f/u tx 2 weeks start to wean as tolerated change to bitemp 0.5 if dep sx Pt Tolerated Procedure w/o Issue: Yes
--- NOTE | 2024-03-25 07:19 | HO.ECTPROC ---
ECT Procedure Note Diagnosis/Treatment Date of Service: 03/25/24 Time: Total time managing care of this patient today ____ minutes. ECT Settings Device: THYMATRON DGx
== END 2024-03-25 08:51 | disposition home or self-care (01) ==
PROVIDERS: PCP Internal Medicine; Visit Provider Psychiatry & Neurology Psychiatry
PROC: (CPT 90870; principal; 2024-03-25 07:00)
DX: F33.2 Major depressive disorder, recurrent severe without psychotic features (principal); F41.1 Generalized anxiety disorder; F90.9 Attention-deficit hyperactivity disorder, unspecified type; I10 Essential (primary) hypertension; E03.9 Hypothyroidism, unspecified; M21.379 Foot drop, unspecified foot; Z79.51 Long term (current) use of inhaled steroids; Z79.899 Other long term (current) drug therapy; Z87.891 Personal history of nicotine dependence
CPT/HCPCS: 90870; J0330; J2405

== ENCOUNTER → 2024-03-25 05:57 | Outpatient (BNV) | payer MEDICARE, SELFPAY | PROVIDERS: PCP Internal Medicine; Visit Provider Psychiatry & Neurology Psychiatry | DX: F33.3 Major depressive disorder, recurrent, severe with psychotic symptoms (principal) | CPT/HCPCS: 90870 ==

== ENCOUNTER 2024-04-21 14:20 | Outpatient (AMB) | payer MEDICARE, SELFPAY ==
--- NOTE | 2024-05-22 22:11 | A.OFFPSYCH_ITS ---
Intake Intake Visit Reasons: depression Allergies No Known Allergies Allergy (Verified 08/27/23 10:27) HPI- Psychiatric Chief Complaint: depression HPI Narrative: Patient seen psychiatric follow-up patient's mood is somewhat anxious but clearly less depressed. She did have recent barium swallow is also due to have a thyroid study. Patient does have some mild or oropharyngeal findings and also finding secondary to chronic GERD. Some attentional and short-term memory dysfunction is noted continues on Trintellix and lower dose Wellbutrin in case contributing to anxiety patient has had concerns about swallowing issues for many years has seen ENT previously no SI no psychosis functioning has generally improved goes to [employer] different meetings Past Psychiatric History: -Pt sees Dr. Shearer in OP setting recent hospitalization at [facility] Has had often on relapses over the past year and half -Remote hx of IPLOC 12 yrs ago, recent admissions at [facility] since 2020 with at least 4 admissions in the last 2 years Mental Status Exam Mental Status Exam Patient Appearance: Appropriate Level of Consciousness: Awake and Appropriate Patient Behavior: Appropriate Behavior Comments: olivo affect less depressed less anxiety Mood Description: Anxious Affect Description: Constricted Ability to Follow Directions: Good Speech Pattern: Clear Memory Description: Episodic Impaired (mild) and Working Impaired Hallucinations: None Delusions: Not Present Thought Process: Intact Thought Content: positive for Obsessional Thoughts, positive for Preoccupation, negative for Suicidal Ideation or negative for Homicidal Ideation Depressive Symptoms: Loss of Energy Judgement: Good Judgement and Insight: Mild attentional problems noted delayed word finding reasoning and judgment intact Assessment and Plan Assessment & Plan (1) Major depressive disorder in partial remission: Status: Acute Code(s): F32.4 - Major depressive disorder, single episode, in partial remission (2) Dysphagia: Status: Acute Code(s): R13.10 - Dysphagia, unspecified Plan Patient has had a marked increase in anxiety and depressive symptoms she has not wanted to continue ECT has been preoccupied with a choking sensation that she has full of mucus she has had this sensation before sense that there is something in the back of her throat but has gotten worse over time. Case reviewed and discussed with primary care Patient is pending a swallowing study she did have 1 a few months ago in the hospital Discussed attempt to change to Valium t.i.d. to see if that would help with symptoms case there is any spasm to see if that would be helpful lower Wellbutrin 100 mg in case b.i.d. doses contributing factor to significant increase in anxiety Are modafinil can also decrease in half in case contributing to any anxiety patient's mood and energy generally have improved Discussed use of Cerefolin NAC Medications: New diazepam 1/2 tab am 1/2 tab aft 1 tab bedtimne orally 2 times a day PRN; 60 tabs 2RF anxiety 30 days Changed From bupropion HCl SR 100 mg PO BID 60 tabs 3RF To bupropion HCl SR (Wellbutrin SR) 100 mg PO QAM 30 tabs 3RF Discontinued lisinopril Discontinued Reason: Patient no longer taking 15 mg See Protocol PO DAILY 90 days 270 tabs 1RF lorazepam Discontinued Reason: Patient Completed Course 0.5 mg PO Q8H PRN 90 tabs 2RF Anxiety Counseling and coordination of Care Details-Self Mgmt counseling: Discussed Meuse headband for relaxation training daily walk yoga meditation Medication management counseling: Effectiveness, Side effects and Dosing range Diagnosis and Prognosis Counseling: Adequacy of current interventions Details: I spent [38] minutes reviewing the record, seeing the patient and documenting in the medical record. Counseling provided to the patient/caregiver as outlined below. Addressed patient/caregiver concerns regarding current medication regime including effective adherence. Addressed patient/caregiver concerns regarding diagnosis and prognosis including accuracy of diagnosis, prognosis over time, impact of diagnosis. Addressed patient/caregiver concerns regarding impact of recent st ressors. [facility] Medical History Urinary tract infection Depression Hypothyroidism ZAC (generalized anxiety disorder) Hypertension ADHD (attention deficit hyperactivity disorder) Surgical History H/O thumb surgery H/O cone biopsy of cervix Family History Other No pertinent family history Social History Household Members: Spouse Household Members Other:: And two cats. 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
== END 2024-04-21 16:08 | disposition home or self-care (01) ==
LOC: HO.HOP 14:20
PROVIDERS: PCP Internal Medicine; Visit Provider Psychiatry & Neurology Psychiatry
DX: F32.4 Major depressive disorder, single episode, in partial remission (principal); R13.10 Dysphagia, unspecified
CPT/HCPCS: 90833; 99213

== ENCOUNTER → 2024-04-21 14:20 | Outpatient (BNVA) | payer MEDICARE, SELFPAY | PROVIDERS: PCP Internal Medicine; Visit Provider Psychiatry & Neurology Psychiatry | DX: F32.4 Major depressive disorder, single episode, in partial remission (principal); R13.10 Dysphagia, unspecified | CPT/HCPCS: 99212 ==

== ENCOUNTER → 2024-04-27 17:18 | Outpatient (BNVA) | payer MEDICARE, SELFPAY | PROVIDERS: PCP Internal Medicine; Visit Provider Psychiatry & Neurology Psychiatry | DX: R13.10 Dysphagia, unspecified (principal) ==

== ENCOUNTER 2024-05-05 10:22 | Outpatient (REF) | payer MEDICARE, SELFPAY ==
--- NOTE | ~2024-05-05 | FL_ITS ---
EXAMINATION: XR FLUOROSCOPY UPPER GI WITH AIR CLINICAL INFORMATION: Dysphagia COMPARISON: Barium swallow August 2023 TECHNIQUE: Fluoroscopic air contrast upper GI examination was performed utilizing standard techniques with thin and thick barium and effervescent granules. Numerous spot images were obtained. FINDINGS: Lateral cine images of the oropharynx and hypopharynx demonstrate normal swallow mechanism with normal epiglottic inversion and soft palate elevation. Subglottic aspiration that progressed to tracheal aspiration was observed with thick barium. No nasopharyngeal reflux present. Hypopharyngeal structures appear normal without evidence of mass or diverticulum. There is mild cricopharyngeal achalasia present. Dual and single contrast images of the esophagus demonstrate a mildly patulous esophagus with moderately disorganized peristalsis. There is felinization of the mid and distal esophageal mucosa. Mucosa has a somewhat granular appearance. No evidence of stricture, mass, or ulcerations identified. A small type I hiatal hernia is present. No significant gastroesophageal reflux was seen during the course of the examination and on reflux views. Dual contrast and single contrast images of the stomach demonstrated a normal contour. The gastric rugal folds have a mildly thickened appearance, suggesting gastritis. There is also prominence of the areae gastricae markings. No masses or ulcerations are seen. Contrast freely passed into the gastric antrum and duodenal bulb without delay. Single and air-contrast images of the duodenal bulb demonstrate no abnormality. The duodenal sweep has a normal appearance, course, and mucosal fold appearance. The imaged proximal jejunum has a normal fold pattern and caliber. FLUOROSCOPY TIME: 3 minutes 7 seconds Number of Spot Images: 11 Number of Cine: 9 DOSE AREA PRODUCT: 976.4 uGy-m2 (microgray-meter squared) FL/FL barium swallow with air IMPRESSION: 1. Subglottic aspiration aspiration with thick barium. Tracheal aspiration was silent. Only a small amount of barium was aspirated. 2. Mild cricopharyngeal achalasia 3. Mildly dilated esophagus with moderately disorganized esophageal peristalsis. 4. Felinization of the mid and distal esophageal mucosa. This is a benign finding that is associated with chronic gastroesophageal reflux. While no gastroesophageal reflux was seen during this examination, suspect at least moderate reflux. 5. Findings suggesting underlying gastritis. This procedure was performed by French Wheeler PA-C, and supervised by Dr. Webster
== END 2024-05-05 10:23 | disposition home or self-care (01) ==
LOC: HO.XRAY 10:22
PROVIDERS: PCP Internal Medicine; Visit Provider Internal Medicine
DX: R13.10 Dysphagia, unspecified (principal)
CPT/HCPCS: 74221

== ENCOUNTER → 2024-05-05 10:24 | Outpatient (BNV) | payer MEDICARE, SELFPAY | PROVIDERS: PCP Internal Medicine; Visit Provider Physician Assistant Surgical | DX: R13.10 Dysphagia, unspecified (principal) | CPT/HCPCS: 74246 ==

== ENCOUNTER → 2024-06-10 11:28 | Outpatient (BNVA) | payer MEDICARE, SELFPAY | PROVIDERS: PCP Internal Medicine; Visit Provider Psychiatry & Neurology Psychiatry ==

== ENCOUNTER 2024-07-12 11:23 | Outpatient (AMB) | payer MEDICARE, SELFPAY ==
--- NOTE | 2024-07-12 13:35 | A.OFFPSYCH_ITS ---
Intake Intake Visit Reasons: depression Allergies No Known Allergies Allergy (Verified 08/27/23 10:27) Medication List - Last Reconciled 07/12/24 by Yovany Shearer MD amlodipine 10 mg See Protocol PO DAILY armodafinil 150 mg PO QAM ascorbic acid (vitamin C) (Vitamin C) 2,000 mg (4 x 500 mg) PO BEDTIME 30 days bupropion HCl SR (Wellbutrin SR) 100 mg PO QAM diazepam 1/2 tab am 1/2 tab aft 1 tab bedtimne orally 2 times a day PRN; 30 days fluticasone propionate 50 mcg/actuation 1 spray intranasal BID melatonin 6 mg (2 x 3 mg) PO BEDTIME PRN multivitamin (Daily-Dara tablet) 1 tab PO DAILY 30 days omeprazole 20 mg PO DAILY@0630 quetiapine orally; 1 bedtime 1/2-1 daily prn obsessional thinking 30 days vortioxetine (Trintellix) 10 mg PO DAILY HPI- Psychiatric Chief Complaint: depression HPI Narrative: Patient seen psychiatric follow-up with her . Patient generally doing better is on diazepam 2.5 b.i.d. 5 mg at bedtime this appears to be helpful in decreasing the repetitive swallowing and choking sensation although it still occurs. She will not have a ENT follow-up for a number of months. Of note is she will be seeing an concession supervisor thyroid nodules were noted the patient is mood generally okay she continues to have anxiety regarding potential physical conditions but she is pushing through and doing things that she normally does including gardening garden club going to the [employer]. Her PHQ-9 is not overly elevated GED mildly elevated are modafinil at 75 mg appears to be helpful in dealing with depressive symptoms fatigue without being overly stimulating she continues on Trintellix has not been taking Seroquel Past Psychiatric History: -Pt sees Dr. Shearer in OP setting recent hospitalization at the [facility] Has had often on relapses over the past year and half -Remote hx of IPLOC 12 yrs ago, recent admissions at [facility] since 2020 with at least 4 admissions in the last 2 years Mental Status Exam Mental Status Exam Patient Appearance: Appropriate Level of Consciousness: Awake and Appropriate Patient Behavior: Appropriate Behavior Comments: olivo affect less depressed less anxiety Mood Description: Appropriate and Anxious (Mild) Affect Description: Appropriate Ability to Follow Directions: Good Speech Pattern: Clear Memory Description: Intact Hallucinations: None Delusions: Not Present Thought Process: Intact Thought Content: positive for Preoccupation (With physical concern), negative for Suicidal Ideation or negative for Homicidal Ideation Depressive Symptoms: Loss of Energy Judgement: Good Judgement and Insight: Attentional problems have improved better insight seems less overwhelmed with physical concerns able to enjoy things able to function and participate Assessment and Plan Assessment & Plan (1) Major depressive disorder in partial remission: Status: Acute Qualifiers: Major depression recurrence: recurrent Qualified Code(s): F33.41 - Major depressive disorder, recurrent, in partial remission Code(s): F32.4 - Major depressive disorder, single episode, in partial remission (2) ZAC (generalized anxiety disorder): Status: Acute Code(s): F41.1 - Generalized anxiety disorder (3) ADHD (attention deficit hyperactivity disorder): Status: Acute Code(s): F90.9 - Attention-deficit hyperactivity disorder, unspecified type Plan Patient much improved from last visit will be seeing endocrinology and ENT thyroid problems could certainly be contributing to some of her neck sensation/swallowing issues. Continue Trintellix are modafinil diazepam mirtazapine at bedtime Medications: Changed From armodafinil 150 mg PO QAM 30 tabs 2RF To armodafinil 75 mg (1/2 x 150 mg) PO QAM 30 tabs 2RF Discontinued quetiapine Discontinued Reason: Patient no longer taking orally; 1 bedtime 1/2-1 daily prn obsessional thinking 30 days 60 tabs 2RF Counseling and coordination of Care Pt. Self Management counseling: Breathing and Behavior activation Details-Self Mgmt counseling: Discussed issues related to chronic illness managing stress seen with her . has returned to doing things that she normally did pushing through fatigue maintaining structure Medication management counseling: Effectiveness, Side effects and Dosing range Details-Med Mgmt counseling: Maintain Trintellix at 10 mg maintain diazepam appears to be helpful regarding swallowing sensation to some degree Diagnosis and Prognosis Counseling: Adequacy of current interventions Details-Diagnosis/Prognosis counseling: Consider TMS Details: I spent [40] minutes reviewing the record, seeing the patient and documenting in the medical record. Counseling provided to the patient/caregiver as outlined below. Addressed patient/caregiver concerns regarding current medication regime including effective adherence. Addressed patient/caregiver concerns regarding diagnosis and prognosis including accuracy of diagnosis, prognosis over time, impact of diagnosis. Addressed patient/caregiver concerns regarding impact of recent stressors. [facility] Medical History Urinary tract infection Depression Hypothyroidism ZAC (generalized anxiety disorder) Hypertension ADHD (attention deficit hyperactivity disorder) Surgical History H/O thumb surgery H/O cone biopsy of cervix Family History Other No pertinent family history Social History Household Members: Spouse Household Members Other:: And two cats. 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
== END 2024-07-12 12:12 | disposition home or self-care (01) ==
LOC: HO.HOP 11:23
PROVIDERS: PCP Internal Medicine; Visit Provider Psychiatry & Neurology Psychiatry
DX: F33.41 Major depressive disorder, recurrent, in partial remission (principal); F41.1 Generalized anxiety disorder; F90.9 Attention-deficit hyperactivity disorder, unspecified type
CPT/HCPCS: 90833; 99213

== ENCOUNTER → 2024-07-12 11:23 | Outpatient (BNVA) | payer MEDICARE, SELFPAY | PROVIDERS: PCP Internal Medicine; Visit Provider Psychiatry & Neurology Psychiatry | DX: F33.41 Major depressive disorder, recurrent, in partial remission (principal); F41.1 Generalized anxiety disorder; F90.9 Attention-deficit hyperactivity disorder, unspecified type | CPT/HCPCS: 99212 ==

== ENCOUNTER 2024-08-12 13:13 | Outpatient (AMB) | payer MEDICARE, SELFPAY ==
--- NOTE | 2024-08-12 15:25 | A.OFFPSYCH_ITS ---
Intake Intake Visit Reasons: depression Allergies No Known Allergies Allergy (Verified 08/27/23 10:27) HPI- Psychiatric Chief Complaint: depression HPI Narrative: Patient seen psychiatric follow-up patient has been increasingly anxious ruminating concerned about her throat swallowing congestion not reassured by past negative CT scan of her neck on Trintellix Wellbutrin lorazepam as needed Past Psychiatric History: -Pt sees Dr. Shearer in OP setting recent hospitalization at the [place] [facility] Has had often on relapses over the past year and half -Remote hx of IPLOC 12 yrs ago, [place] [facility] [place] with at least 4 admissions in the last 2 years Mental Status Exam Mental Status Exam Narrative: Patient seen with her she is anxious ruminating mood is anxious and depressed affect constricted feels overwhelmed helpless hopeless preoccupied with her physical health no active SI or HI Assessment and Plan Assessment & Plan (1) Major depressive disorder, recurrent severe without psychotic features: Status: Acute Code(s): F33.2 - Major depressive disorder, recurrent severe without psychotic features (2) ZAC (generalized anxiety disorder): Status: Acute Code(s): F41.1 - Generalized anxiety disorder Plan Discussed with patient and restarting Seroquel see if will help with obsessional anxiety and depression and to consider contacting [facility] for trial of TMS has already failed S ketamine Medications: Changed From quetiapine orally; 1 bedtime 1/2-1 daily prn obsessional thinking 30 days 60 tabs 2RF To quetiapine 25 - 50 mg (1 - 2 x 25 mg) PO BEDTIME 30 tabs 1RF 60 days Counseling and coordination of Care Details-Self Mgmt counseling: Relaxation skills yoga meditation challenging negative physical assumptions Medication management counseling: Effectiveness, Side effects and Dosing range Details-Med Mgmt counseling: 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 Counseling provided to the patient/caregiver as outlined below. Addressed patient/caregiver concerns regarding current medication regime including effe ctive adherence. Addressed patient/caregiver concerns regarding diagnosis and prognosis including accuracy of diagnosis, prognosis over time, impact of diagnosis. Addressed patient/caregiver concerns regarding impact of recent stressors. [facility] Medical History Pre-op evaluation Urinary tract infection Depression Hypothyroidism ZAC (generalized anxiety disorder) Hypertension ADHD (attention deficit hyperactivity disorder) Surgical History H/O thumb surgery H/O cone biopsy of cervix Family History Other No pertinent family history Social History Household Members: Spouse Household Members Other:: And two cats. 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
== END 2024-08-12 14:30 | disposition home or self-care (01) ==
LOC: HO.HOP 13:13
PROVIDERS: PCP Internal Medicine; Visit Provider Psychiatry & Neurology Psychiatry
DX: F33.2 Major depressive disorder, recurrent severe without psychotic features (principal); F41.1 Generalized anxiety disorder
CPT/HCPCS: 99214

== ENCOUNTER → 2024-08-12 13:13 | Outpatient (BNVA) | payer MEDICARE, SELFPAY | PROVIDERS: PCP Internal Medicine; Visit Provider Psychiatry & Neurology Psychiatry | DX: F33.2 Major depressive disorder, recurrent severe without psychotic features (principal); F41.1 Generalized anxiety disorder; Z71.89 Other specified counseling | CPT/HCPCS: 99212 ==

== ENCOUNTER 2024-08-19 10:49 | Outpatient (REF) | payer MEDICARE, SELFPAY ==
--- NOTE | 2024-08-19 12:03 | ECG_ITS ---
Test Reason : PRE OP Blood Pressure : / mmHG Vent. Rate : 060 BPM Atrial Rate : 060 BPM P-R Int : 152 ms QRS Dur : 082 ms QT Int : 410 ms P-R-T Axes : 038 059 049 degrees QTc Int : 410 ms Normal sinus rhythm Normal ECG When compared with ECG of 13-OCT-2023 15:35, No significant change was found Referred By: Yovany Shearer Electronically Signed By:MARQUISE AGUILERA
[2024-08-19 12:07] LABS: MANUAL DIFF FLAG NO
[2024-08-19 12:14] LABS: Basophils Percent Auto 0.4 % (0-2); Eosinophils Absolute Auto 0.2 X10*3/uL (0.0-0.4); Eosinophils Percent Auto 2.1 % (0-4); Hematocrit 42.1 % (37.0-47.0); Hemoglobin 13.8 g/dl (12.0-16.0); Imm Gran Abs Auto 0.05 X10*3/uL (0.00-0.03); Imm Gran Pct Auto 0.7 % (0.0-0.4); Lymphocytes Absolute Auto 1.8 X10*3/uL (1.2-4.9); Lymphocytes Percent Auto 23.7 % (20-40); Mean Corpuscular HGB Conc 32.8 g/dl (31.0-35.0); Mean Corpuscular Volume 88.4 fL (80.0-98.0); Mean Platelet Volume 9.6 fL (9.4-12.3); Monocytes Absolute Auto 0.7 X10*3/uL (0.1-1.2); Monocytes Percent Auto 8.7 % (2-11); Neutrophils Absolute Auto 4.8 x10*3/uL (2.0-8.3); Neutrophils Percent Auto 64.4 % (45-73); Platelet Count 292 X10*3/uL (160-400); Red Blood Count 4.76 X10*6/uL (4.20-5.50); Red Cell Distribution Width 13.8 % (11.0-16.0); White Blood Count 7.5 X10*3/uL (4.8-10.8)
[2024-08-19 12:40] LABS: Magnesium 2.2 mg/dL (1.6-2.6)
[2024-08-19 12:57] LABS: TSH reflex Free T4 0.07 uIU/mL (0.32-4.0)
[2024-08-19 13:10] LABS: Folate 14.9 ng/mL (> or = 4.0); Vitamin B12 855 pg/mL (200-900)
[2024-08-19 17:24] LABS: Anion Gap 13 (12-20)
[2024-08-19 17:28] LABS: Alanine Aminotransferase 19 U/L (0-31); Albumin Level 3.9 g/dL (3.5-5.0); Alkaline Phosphatase 163 U/L (39-117); Aspartate Amino Transferase 19 U/L (5-31); Bilirubin Total 0.1 mg/dL (0.0-1.0); Blood Urea Nitrogen 20 mg/dL (9-16); Calcium 9.5 mg/dL (8.4-10.2); Carbon Dioxide 24 mmol/L (22-29); Chloride 109 mmol/L (96-108); Estimated Glomerular Filt Rate > 60; Glucose Random 116 mg/dL (60-115); Potassium 3.7 mmol/L (3.3-5.1); Sodium 142 mmol/L (135-145); Total Protein 6.7 g/dL (6.5-8.0)
[2024-08-20 10:33] LABS: Triiodothyronine T3 Free 4.2 pg/mL (2.3-4.2)
[2024-08-24 16:23] LABS: Methylmalonic Acid 382 nmol/L (69-390)
[2024-08-30 10:54] LABS: Triiodothyronine T3 Reverse 12 ng/dL (8-25)
== END 2024-08-19 10:50 | disposition home or self-care (01) ==
LOC: HO.LAB 10:49
PROVIDERS: PCP Internal Medicine; Visit Provider Psychiatry & Neurology Psychiatry
DX: F33.3 Major depressive disorder, recurrent, severe with psychotic symptoms (principal); F41.1 Generalized anxiety disorder; E04.1 Nontoxic single thyroid nodule; Z01.818 Encounter for other preprocedural examination
CPT/HCPCS: 36415; 80053; 82607; 82746; 83735; 83921; 84439; 84443; 84481; 84482; 85025; 93005; 99212

== ENCOUNTER 2024-08-19 10:49 | Outpatient (AMB) | payer MEDICARE, SELFPAY ==
--- NOTE | 2024-08-19 11:53 | MHC.OFFVISPS ---
Intake Intake Visit Reasons: depression Allergies No Known Allergies Allergy (Verified 08/27/23 10:27) HPI- Psychiatric Chief Complaint: depression HPI Narrative: pt seen with in f/u mood severely depressed hopeless helpless si but denies plan or intent but cannot tolerate how she has been feeling . Patient has been on 150 mg Wellbutrin Seroquel just started 50 at bedtime does not feel lethargic from this Trintellix 10 mg. 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 Patient has become more withdrawn stopped doing things that she normally does and can not stand how she is feeling. When feeling better like she was month ago things were generally could not her life enjoys multiple things. She does continue unfortunately however to ruminate on medical concerns. She has had in paranoia during her last episode which is not currently present. She has had significant attentional problems and distractibility getting worse Past Psychiatric History: -Pt sees Dr. Shearer in OP setting recent hospitalization at the [place] [facility] Has had often on relapses over the past year and half -Remote hx of IPLOC 12 yrs ago, [place] [facility] [place] with at least 4 admissions in the last 2 years Mental Status Exam Mental Status Exam Patient Appearance: Well Grooomed Patient Orientation: Person, Place, Time and Situation Level of Consciousness: Awake and Appropriate Patient Behavior: Appropriate Mood Description: Depressed and Blunted Affect Description: Constricted and Depressed Patient Cognition Impaired: No Ability to Follow Directions: Good Speech Pattern: Clear Memory Description: Intact Hallucinations: None Delusions: Not Present Thought Process: Intact and Goal Oriented Thought Content: positive for Goal Oriented, positive for Preoccupation, negative for Suicidal Ideation or negative for Homicidal Ideation Depressive Symptoms: Increased Anxiety, Increased Irritability, Hopelessness, Increased Fatigue, Loss of Energy and Difficulty Concentrating Judgement: Good Results Reviewed Results Reviewed: Patient Care: Ashu Tejada M.D. Specimen Inquiry Name: Miriam Valencia Age/Sex: 73/F : 1950 Unit#: [id number] Attend Dr: Yovany Shearer MD Re08/19/24 Status: REG REF Location: .LAB Disch: SPEC : [id number] PIERRE: 08/19/24 STATUS: COMP REQ : [id number] RECD: 08/19/[address] [facility] DR: Yovany Shearer MD COMP: 08/19/24 ENTERED: 08/19/[address] [facility] [address]: Tami Francis MD ORDERED: CBC Auto Diff Test Result Flag Reference WBC 7.5 4.8-10.8 X10*3/uL RBC 4.76 # 4.20-5.50 X10*6/uL HGB 13.8 # 12.0-16.0 g/dl HCT 42.1 37.0-47.0 % MCV 88.4 80.0-98.0 fL MCH 29.0 27.0-33.0 pg MCHC 32.8 31.0-35.0 g/dl RDW 13.8 11.0-16.0 % PLT 292 160-400 X10*3/uL MPV 9.6 9.4-12.3 fL Neut Pct Auto 64.4 45-73 % ImGran Pct Auto 0.7 H 0.0-0.4 % Lymp Pct Auto 23.7 20-40 % Kleberg Pct Auto 8.7 2-11 % Eos Pct Auto 2.1 0-4 % Baso Pct Auto 0.4 0-2 % NRBC Pct Auto 0.0 0.0-0.2 /100WBC ANC Neut Abs # 4.8 2.0-8.3 x10*3/uL ImGran Abs Auto 0.05 H 0.00-0.03 X10*3/uL Lymph Abs Auto 1.8 1.2-4.9 X10*3/uL Kleberg Abs Auto 0.7 0.1-1.2 X10*3/uL Eos Abs Auto 0.2 0.0-0.4 X10*3/uL Baso Abs Auto 0.0 0.0-0.2 X10*3/uL NRBC Abs Auto 0.000 0.0-0.012 X10*3/uL Electrocardiograph Report Draft Patient: Miriam Valencia MR#: [id number] : 1950 Acct:[id number] Age/Sex: 73 / F ADM Date: 08/19/24 Loc: HO.LAB Attending Dr: Yovany Shearer MD Ordering Physician: Yovany Shearer MD Date of Service: 08/19/24 Procedure(s): ECG 12 lead EKG Accession Number(s): [id number] cc: ~ Test Reason : PRE OP Blood Pressure : / mmHG Vent. Rate : 060 BPM Atrial Rate : 060 BPM P-R Int : 152 ms QRS Dur : 082 ms QT Int : 410 ms P-R-T Axes : 038 059 049 degrees QTc Int : 410 ms Normal sinus rhythm Normal ECG When compared with ECG of 13-OCT-2023 15:35, No significant change was found Referred By: Yovany Shearer Electronically Signed By: END OF REPORT Assessment and Plan Assessment & Plan (1) Major depressive disorder, recurrent, severe with psychotic features: Status: Acute Code(s): F33.3 - Major depressive disorder, recurrent, severe with psychotic symptoms (2) ZAC (generalized anxiety disorder): Status: Acute Code(s): F41.1 - Generalized anxiety disorder (3) Thyroid nodule: Status: Acute Code(s): E04.1 - Nontoxic single thyroid nodule Plan We had lowered Wellbutrin to 75 mg patient is feeling worse increase Wellbutrin to 100 50 mg for 5 days then increase to 150 b.i.d. as tolerated do not increase if marked anxiety or agitation monitor blood pressure consider increase in Seroquel extensive discussion regarding risks benefits and alternatives of ECT with hopeful transition perhaps to TMS will get medical evaluation check thyroid functions including T4-T3 reverse T3 rule out euthyroid sick patient does have thyroid nodules history of multinodular goiter was on thyroid hormone in the past check EKG B12 folate See if any other factors are contributing to the patient's decline metabolically Medications: Changed From bupropion HCl SR (Wellbutrin SR) 100 mg PO QAM 30 tabs 3RF To bupropion HCl SR 150 mg PO BID 60 tabs 2RF Orders: Orders TSH reflex Free T4 Today E04.1 - Nontoxic single thyroid nodule, F33.2 - Major depressive disorder, recurrent severe without psychotic features Comprehensive Met. Panel Today E04.1 - Nontoxic single thyroid nodule, F33.2 - Major depressive disorder, recurrent severe without psychotic features ECG 12 lead EKG Today F33.2 - Major depressive disorder, recurrent severe without psychotic features, Z01.818 - Encounter for other preprocedural examination Vitamin B12 and Folate Today F33.3 - Major depressive disorder, recurrent, severe with psychotic symptoms Methylmalonic Acid Today E04.1 - Nontoxic single thyroid nodule, F33.2 - Major depressive disorder, recurrent severe without psychotic features Complete Blood Count Auto Diff Today E04.1 - Nontoxic single thyroid nodule, F33.2 - Major depressive disorder, recurrent severe without psychotic features Triiodothyronine T3 Free Today E04.1 - Nontoxic single thyroid nodule, F33.2 - Major depressive disorder, recurrent severe without psychotic features Triiodothyronine T3 Reverse Today E04.1 - Nontoxic single thyroid nodule, F33.2 - Major depressive disorder, recurrent severe without psychotic features Free T4 (Free Thyroxine) Today E04.1 - Nontoxic single thyroid nodule, F33.2 - Major depressive disorder, recurrent severe without psychotic features Magnesium Today F33.2 - Major depressive disorder, recurrent severe without psychotic features, Z01.818 - Encounter for other preprocedural examination Counseling and coordination of Care Details-Self Mgmt counseling: Extensive discussion regarding managing concerns regarding medical illness behavioral activation improving functioning until discussion regarding possibility of inpatient if unable l to maintain safety Medication management counseling: Effectiveness, Side effects and Dosing range Diagnosis and Prognosis Counseling: Impact of diagnosis on life functions, Problematic behaviors secondary to diagnosis and Adequacy of current interventions Details-Diagnosis/Prognosis counseling: Discussed trying to start outpatient ECT might try to do 2 times a week to limit cognitive side effects call placed to patient's PCP Details: I spent [60] minutes reviewing the record, seeing the patient and documenting in the medical record. Counseling provided to the patient/caregiver as outlined below. Addressed patient/caregiver concerns regarding current medication regime including effective adherence. Addressed patient/caregiver concerns regarding diagnosis and prognosis including accuracy of diagnosis, prognosis over time, impact of diagnosis. Addressed patient/caregiver concerns regarding impact of recent stressors. [facility] Medical History (Updated 08/19/24 @ 11:43 by Yovany Shearer MD) Pre-op evaluation Urinary tract infection Depression Hypothyroidism ZAC (generalized anxiety disorder) Hypertension ADHD (attention deficit hyperactivity disorder) Surgical History H/O thumb surgery H/O cone biopsy of cervix Family History Other No pertinent family history Social History Household Members: Spouse Household Members Other:: And two cats. 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
== END 2024-08-19 12:03 | disposition home or self-care (01) ==
LOC: HO.HOP 10:49
PROVIDERS: PCP Internal Medicine; Visit Provider Psychiatry & Neurology Psychiatry
DX: F33.3 Major depressive disorder, recurrent, severe with psychotic symptoms (principal); F41.1 Generalized anxiety disorder; E04.1 Nontoxic single thyroid nodule
CPT/HCPCS: 90833; 99213

== ENCOUNTER 2024-09-02 07:43 | Day surgery (SDC) | payer MEDICARE, SELFPAY ==
[2024-09-02] VITALS (7 sets, daily range): BP systolic 126–162; BP diastolic 60–87; PULSE 67–90; RESP 16; TEMP 36.1–36.7; O2SAT 94–97; BMI 21.9
--- NOTE | 2024-09-02 08:36 | P.CONAN_ITS ---
[facility] Active Problems Active Problems: All Active Problems Pre-op evaluation (Acute) Thyroid nodule (Acute) Major depressive disorder in partial remission (Acute) Delirium in remission (Acute) Major depressive disorder, recurrent, severe with psychotic features (Acute) Footdrop (Acute) Major depressive disorder, recurrent severe without psychotic features (Acute) Personality disorder (Acute) Organic catatonia (Acute) Abnormal EKG (Acute) Odynophagia (Acute) Paranoia (Acute) Dysphagia (Acute) Serotonin syndrome (Acute) Ataxia (Acute) Tremors of nervous system (Acute) Major depression in full remission (Acute) Memory deficit (Acute) ADHD (attention deficit hyperactivity disorder) (Acute) ZAC (generalized anxiety disorder) (Acute) Depression (Acute) Acute bacterial conjunctivitis of both eyes (Acute) Hypercalcemia (Acute) Hypothyroidism (Acute) Leukocytosis (Acute) Hypertension (Chronic) Past Medical History Medical History (Updated 08/19/24 @ 11:43 by Yovany Shearer MD) Pre-op evaluation Urinary tract infection Depression Hypothyroidism ZAC (generalized anxiety disorder) Hypertension ADHD (attention deficit hyperactivity disorder) Family History Family History Other No pertinent family history Family history of problems with anesthesia: No Surgical History Surgical History H/O thumb surgery H/O cone biopsy of cervix History of Problems with Anesthesia: No Social History Social History Household Members: Spouse Household Members Other:: And two cats. Housing: House Do you presently have visiting nurse or other home services: No Unable to assess alcohol history related to: Unknown Alcohol intake: never Patient Tobacco Use Status: Former Tobacco user Tobacco use type: Cigarette Years Smoked: 20 e-Cigarette/Vaping Use: Never Used Second Hand Smoke Exposure: No Substance Use Type: Former Substance User and Marijuana Advance Directives: No Advance Directives Information Provided: Yes service: No Sexual orientation: Straight/Heterosexual Meds Allergies Allergy/AdvReac Type Severity Reaction Status Date / Time No Known Allergies Allergy Verified 08/27/23 10:27 Active Medications: Current Medications Lactated Ringer's (Lr) 1,000 mls @ 50 mls/hr IVCONT .Q20H NORBERTO Naloxone HCl (Naloxone Hcl 0.4 Mg/Ml Vial) 0.04 mg IVPUSH Q5M PRN PRN Reason: Excessive sedation or RR < 8 Home Medications ?Medication ?Instructions ?Recorded ?Confirmed ?Last Taken ?Type fluticasone propionate 50 1 spray intranasal BID 08/27/23 03/01/24 Unknown History mcg/actuation nasal spray,suspension amlodipine 5 mg tablet 10 mg PO DAILY 07/12/24 Unknown History Exam Airway Mallampati Class: II TM Dist: >3cm Neck ROM: Full Heart: rrr Lungs: cta Assessment and Plan Assessment Anesthesia Assessment: Anesthesia Plan Discussed and Chart Reviewed Final Anesthetic Review Family History of Problems with Anesthesia: No History of Problems with Anesthesia: No NPO: Yes ASA Class: III Final Preanesthetic Review: No Changes in Pt Med Stat, Meds/Allgs Chart Reviewed and Consent Obtained/Reviewed Patient Risk: Intermediate Procedure Risk: Intermediate Anesthetic Plan Anesthetic Plan: GA Disposition: Standard PACU
--- NOTE | 2024-09-02 08:38 | MHC.SHP ---
Pre-Procedural Eval Section A - 24 Hr Update-Section A only Date of Service: 09/02/24 Section B - Complete if H&P > 30 days Chief Complaint: Major depressive disorder, recurrent, severe with Details of Present Illness: recurrent depression severe no acute medical problems recent med eval reviewed Present Medications: see Short Stay Collaborative assessment Medical History: Significant History (hx of unclear encephalopathy) Allergies: Allergies Allergy/AdvReac Type Severity Reaction Status Date / Time No Known Allergies Allergy Verified 08/27/23 10:27 Review of Systems Sugical H&P ROS: Negative: Cardiovascular and Respiratory and Yes, Specify: Psychiatric (severe dep no active si) and Eyes/Ears/Nose/Throat (inc secretions) Exam Surgical H&P Exam: Normal: Heart (rr no m) and Normal: Lungs (clear) Plan Diagnosis/Plan: Unchanged I have reviewed the history and physical and performed a pertinent physical examination on my patient. No changes have occurred unless specified. Time Spent With Patient Time: Total time managing care of this patient today __30__ minutes.
[2024-09-02] MEDS: Lactated Ringers 1,000 ML 50 ML IVCONT (10:11)
--- NOTE | 2024-09-02 10:30 | HO.ECTPROC ---
ECT Procedure Note Diagnosis/Treatment Date of Service: 09/02/24 Diagnosis: Major Depressive Disorder Current Treatment Number: 1 Treatment: Series Interval Clinical Notes: Last tx may patient has relapsed not responding to medication did have response previously with ECT. Treated bifrontally 0.25 pulse width had short sz make sure lorazepam held nite prior . change to etomidate use versed post Time: Total time managing care of this patient today _30___ minutes. ECT Settings Device: THYMATRON DGx Electrode Placement: Bifrontal Program/Pulse Width: 0.25 Energy Percent: 100 Seizure Duration By EEG (in seconds): 11 Medications Administration General Anesthetic: Methohexital (70) Muscle Relaxant: Succinylcholine (80) Ancillary Medications Anti-emetics: Zofran - Pre ECT Airway Management Airway Management: Bag Mask Ventilation Treatment Recommendations Notes: change to etomidate
== END 2024-09-02 10:29 | disposition home or self-care (01) ==
PROVIDERS: PCP Internal Medicine; Visit Provider Psychiatry & Neurology Psychiatry
PROC: (CPT 90870; principal; 2024-09-02 09:30)
DX: F33.2 Major depressive disorder, recurrent severe without psychotic features (principal); F41.1 Generalized anxiety disorder; F90.9 Attention-deficit hyperactivity disorder, unspecified type; I10 Essential (primary) hypertension; E03.9 Hypothyroidism, unspecified; M21.379 Foot drop, unspecified foot; Z79.51 Long term (current) use of inhaled steroids; Z79.899 Other long term (current) drug therapy; Z87.891 Personal history of nicotine dependence
CPT/HCPCS: 90870; J0330; J2405

== ENCOUNTER → 2024-09-02 07:43 | Outpatient (BNV) | payer MEDICARE, SELFPAY | PROVIDERS: PCP Internal Medicine; Visit Provider Psychiatry & Neurology Psychiatry | DX: F33.3 Major depressive disorder, recurrent, severe with psychotic symptoms (principal) | CPT/HCPCS: 90870 ==

== ENCOUNTER 2024-09-05 05:51 | Day surgery (SDC) | payer MEDICARE, SELFPAY ==
[2024-09-05] VITALS (7 sets, daily range): BP systolic 139–160; BP diastolic 66–76; PULSE 7–84; RESP 14–19; TEMP 36.1–36.3; O2SAT 95–100; BMI 21.9
--- NOTE | 2024-09-05 06:50 | HO.ANESPROP2 ---
[facility] Active Problems Active Problems: All Active Problems Pre-op evaluation (Acute) Thyroid nodule (Acute) Major depressive disorder in partial remission (Acute) Delirium in remission (Acute) Major depressive disorder, recurrent, severe with psychotic features (Acute) Footdrop (Acute) Major depressive disorder, recurrent severe without psychotic features (Acute) Personality disorder (Acute) Organic catatonia (Acute) Abnormal EKG (Acute) Odynophagia (Acute) Paranoia (Acute) Dysphagia (Acute) Serotonin syndrome (Acute) Ataxia (Acute) Tremors of nervous system (Acute) Major depression in full remission (Acute) Memory deficit (Acute) ADHD (attention deficit hyperactivity disorder) (Acute) ZAC (generalized anxiety disorder) (Acute) Depression (Acute) Acute bacterial conjunctivitis of both eyes (Acute) Hypercalcemia (Acute) Hypothyroidism (Acute) Leukocytosis (Acute) Hypertension (Chronic) Past Medical History Medical History (Updated 08/19/24 @ 11:43 by Yovany Shearer MD) Pre-op evaluation Urinary tract infection Depression Hypothyroidism ZAC (generalized anxiety disorder) Hypertension ADHD (attention deficit hyperactivity disorder) Family History Family History Other No pertinent family history Family history of problems with anesthesia: No Surgical History Surgical History H/O thumb surgery H/O cone biopsy of cervix History of Problems with Anesthesia: No Social History Social History Household Members: Spouse Household Members Other:: And two cats. Housing: House Do you presently have visiting nurse or other home services: No Unable to assess alcohol history related to: Unknown Alcohol intake: never Patient Tobacco Use Status: Former Tobacco user Tobacco use type: Cigarette Years Smoked: 20 e-Cigarette/Vaping Use: Never Used Second Hand Smoke Exposure: No Substance Use Type: Former Substance User and Marijuana Advance Directives: No Advance Directives Information Provided: Yes service: No Sexual orientation: Straight/Heterosexual Meds Allergies Allergy/AdvReac Type Severity Reaction Status Date / Time No Known Allergies Allergy Verified 08/27/23 10:27 Home Medications ?Medication ?Instructions ?Recorded ?Confirmed ?Last Taken ?Type fluticasone propionate 50 1 spray intranasal BID 08/27/23 03/01/24 Unknown History mcg/actuation nasal spray,suspension amlodipine 5 mg tablet 10 mg PO DAILY 07/12/24 Unknown History Exam Height,Weight and Vital Signs: Height 5 ft 1 in Weight 52.617 kg Last Vital Signs Temp 97 F 09/05/24 06:31 Pulse 68 09/05/24 06:31 Resp 18 09/05/24 06:31 BP 144/76 H 09/05/24 06:31 Pulse Ox 95 09/05/24 06:31 O2 Del Method Room Air 09/05/24 06:31 Airway Mallampati Class: II TM Dist: >3cm Neck ROM: Full Heart: rrr Lungs: cta Assessment and Plan Assessment Anesthesia Assessment: Anesthesia Plan Discussed and Chart Reviewed Final Anesthetic Review Family History of Problems with Anesthesia: No History of Problems with Anesthesia: No NPO: Yes ASA Class: III Final Preanesthetic Review: No Changes in Pt Med Stat, Meds/Allgs Chart Reviewed and Consent Obtained/Reviewed Patient Risk: Intermediate Procedure Risk: Intermediate Anesthetic Plan Anesthetic Plan: GA Disposition: Standard PACU
[2024-09-05] MEDS: Lactated Ringers 1,000 ML 50 ML IVCONT (06:56)
--- NOTE | 2024-09-05 07:03 | MHC.SHP ---
Pre-Procedural Eval Section A - 24 Hr Update-Section A only Date of Service: 09/05/24 Changes since office visit: No Cold of Flu in the past 2 weeks, No New Medical Problems, No Changes in Medication and No Patient answered all questions The patient has been examined within 24 hours of the surgical procedure. The History & Physical has been completed within 30 days and I have reviewed it.: Yes Section B - Complete if H&P > 30 days Chief Complaint: Major depressive disorder, recurrent, severe with Allergies: Allergies Allergy/AdvReac Type Severity Reaction Status Date / Time No Known Allergies Allergy Verified 08/27/23 10:27 Plan I have reviewed the history and physical and performed a pertinent physical examination on my patient. No changes have occurred unless specified. Time Spent With Patient Time: Total time managing care of this patient today ____ minutes.
--- NOTE | 2024-09-05 07:48 | HO.ECTPROC ---
ECT Procedure Note Diagnosis/Treatment Date of Service: 09/05/24 Diagnosis: Major Depressive Disorder Previous ECT Date: 09/02/24 Current Treatment Number: 2 Treatment: Series Interval Clinical Notes: The patient reported mild improvement of her dysphoria with her first ECT last Thursday, denies side effects with the last ECT. ECT done as usual, no complications, good seizure that resolved itself, no complications. Time: Total time managing care of this patient today __30__ minutes. ECT Settings Device: THYMATRON DGx Electrode Placement: Bifrontal Program/Pulse Width: 0.25 Energy Percent: 80 Seizure Duration By EEG (in seconds): 28 By Motor Observation (in seconds): 20 Medications Administration General Anesthetic: Methohexital (70) Muscle Relaxant: Succinylcholine (80) Ancillary Medications Anti-emetics: Zofran - Pre ECT Airway Management Airway Management: Bag Mask Ventilation Treatment Recommendations No Changes Recommended: No change Pt Tolerated Procedure w/o Issue: Yes
== END 2024-09-05 08:49 | disposition home or self-care (01) ==
PROVIDERS: PCP Internal Medicine; Visit Provider Psychiatry & Neurology Psychiatry
PROC: (CPT 90870; principal; 2024-09-05 08:30)
DX: F33.2 Major depressive disorder, recurrent severe without psychotic features (principal); F41.1 Generalized anxiety disorder; E04.1 Nontoxic single thyroid nodule; I10 Essential (primary) hypertension; F90.9 Attention-deficit hyperactivity disorder, unspecified type; Z79.899 Other long term (current) drug therapy; Z87.891 Personal history of nicotine dependence
CPT/HCPCS: 90870; J0330; J1596; J2405; J2704

== ENCOUNTER → 2024-09-05 05:51 | Outpatient (BNV) | payer MEDICARE, SELFPAY | PROVIDERS: PCP Internal Medicine; Visit Provider Psychiatry & Neurology Psychiatry | DX: F33.3 Major depressive disorder, recurrent, severe with psychotic symptoms (principal) | CPT/HCPCS: 90870 ==

== ENCOUNTER 2024-09-09 05:48 | Day surgery (SDC) | payer MEDICARE, SELFPAY ==
[2024-09-09] VITALS (8 sets, daily range): BP systolic 127–160; BP diastolic 56–78; PULSE 63–70; RESP 18–20; TEMP 36.4–36.6; O2SAT 95–99; BMI 22.5
[2024-09-09] MEDS: Scopolamine 1.5 MG PATCH.TD.3 EAR-BEHIND (06:55)
[2024-09-09] MEDS: Lactated Ringers 1,000 ML 100 ML IVCONT (06:56)
--- NOTE | 2024-09-09 07:06 | P.CONAN_ITS ---
[facility] Active Problems Active Problems: All Active Problems Pre-op evaluation (Acute) Thyroid nodule (Acute) Major depressive disorder in partial remission (Acute) Delirium in remission (Acute) Major depressive disorder, recurrent, severe with psychotic features (Acute) Footdrop (Acute) Major depressive disorder, recurrent severe without psychotic features (Acute) Personality disorder (Acute) Organic catatonia (Acute) Abnormal EKG (Acute) Odynophagia (Acute) Paranoia (Acute) Dysphagia (Acute) Serotonin syndrome (Acute) Ataxia (Acute) Tremors of nervous system (Acute) Major depression in full remission (Acute) Memory deficit (Acute) ADHD (attention deficit hyperactivity disorder) (Acute) ZAC (generalized anxiety disorder) (Acute) Depression (Acute) Acute bacterial conjunctivitis of both eyes (Acute) Hypercalcemia (Acute) Hypothyroidism (Acute) Leukocytosis (Acute) Hypertension (Chronic) Past Medical History Medical History (Updated 08/19/24 @ 11:43 by Yovany Shearer MD) Pre-op evaluation Urinary tract infection Depression Hypothyroidism ZAC (generalized anxiety disorder) Hypertension ADHD (attention deficit hyperactivity disorder) Family History Family History Other No pertinent family history Family history of problems with anesthesia: No Surgical History Surgical History H/O thumb surgery H/O cone biopsy of cervix History of Problems with Anesthesia: No Social History Social History Household Members: Spouse Household Members Other:: And two cats. Housing: House Do you presently have visiting nurse or other home services: No Unable to assess alcohol history related to: Unknown Alcohol intake: never Patient Tobacco Use Status: Former Tobacco user Tobacco use type: Cigarette Years Smoked: 20 e-Cigarette/Vaping Use: Never Used Second Hand Smoke Exposure: No Substance Use Type: Former Substance User and Marijuana Advance Directives: No Advance Directives Information Provided: Yes service: No Sexual orientation: Straight/Heterosexual Meds Allergies Allergy/AdvReac Type Severity Reaction Status Date / Time No Known Allergies Allergy Verified 08/27/23 10:27 Active Medications: Current Medications Lactated Ringer's (Lr) 1,000 mls @ 100 mls/hr IVCONT .Q10H NORBERTO Last Admin: 09/09/24 06:56 Dose: 100 mls/hr Home Medications ?Medication ?Instructions ?Recorded ?Confirmed ?Last Taken ?Type fluticasone propionate 50 1 spray intranasal BID 08/27/23 03/01/24 Unknown History mcg/actuation nasal spray,suspension amlodipine 5 mg tablet 10 mg PO DAILY 07/12/24 Unknown History Exam Height,Weight and Vital Signs: Height 5 ft Weight 52.163 kg Last Vital Signs Temp 97.8 F 09/09/24 06:51 Pulse 64 09/09/24 06:51 Resp 20 09/09/24 06:51 BP 146/78 H 09/09/24 06:51 Pulse Ox 95 09/09/24 06:51 O2 Del Method Room Air 09/09/24 06:51 Airway Mallampati Class: II TM Dist: >3cm Neck ROM: Full Assessment and Plan Assessment Anesthesia Assessment: Anesthesia Plan Discussed and Chart Reviewed Final Anesthetic Review Family History of Problems with Anesthesia: No History of Problems with Anesthesia: No NPO: Yes ASA Class: III Final Preanesthetic Review: No Changes in Pt Med Stat, Meds/Allgs Chart Reviewed, Consent Obtained/Reviewed and Anes Risks/Benef Reviewed Patient Risk: Intermediate Procedure Risk: Low Anesthetic Plan Anesthetic Plan: GA Disposition: Standard PACU
--- NOTE | 2024-09-09 07:14 | MHC.SHP ---
Pre-Procedural Eval Section A - 24 Hr Update-Section A only Date of Service: 09/09/24 Changes since office visit: No Cold of Flu in the past 2 weeks, No New Medical Problems, No Changes in Medication and No Patient answered all questions The patient has been examined within 24 hours of the surgical procedure. The History & Physical has been completed within 30 days and I have reviewed it.: Yes Section B - Complete if H&P > 30 days Chief Complaint: Major depressive disorder, recurrent, severe with Details of Present Illness: doing much better Relevant Social History: None Present Medications: see Short Stay Collaborative assessment Medical History: No relevant PMH Allergies: Allergies Allergy/AdvReac Type Severity Reaction Status Date / Time No Known Allergies Allergy Verified 08/27/23 10:27 Review of Systems Sugical H&P ROS: Negative: Cardiovascular, Respiratory and Neurological Exam Surgical H&P Exam: Normal: Heart and Normal: Lungs Plan Diagnosis/Plan: Unchanged I have reviewed the history and physical and performed a pertinent physical examination on my patient. No changes have occurred unless specified. Time Spent With Patient Time: Total time managing care of this patient today ____ minutes.
--- NOTE | 2024-09-09 07:27 | HO.ECTPROC ---
ECT Procedure Note Diagnosis/Treatment Date of Service: 09/09/24 Diagnosis: Major Depressive Disorder Previous ECT Date: 09/05/24 Current Treatment Number: 3 Treatment: Series Interval Clinical Notes: Patient showing clear improvement. Did have nausea after last treatment usually got scopolamine which she had this treatment. Time: Total time managing care of this patient today _30___ minutes. ECT Settings Device: THYMATRON DGx Electrode Placement: Bifrontal Program/Pulse Width: 0.25 Energy Percent: 80 Seizure Duration By EEG (in seconds): 24 Medications Administration General Anesthetic: Methohexital (70) Muscle Relaxant: Succinylcholine (80) Ancillary Medications Anti-emetics: Zofran - Pre ECT Airway Management Airway Management: Bag Mask Ventilation Treatment Recommendations No Changes Recommended: No change Pt Tolerated Procedure w/o Issue: Yes
== END 2024-09-09 08:51 | disposition home or self-care (01) ==
PROVIDERS: PCP Internal Medicine; Visit Provider Psychiatry & Neurology Psychiatry
PROC: (CPT 90870; principal; 2024-09-09 07:30)
DX: F33.2 Major depressive disorder, recurrent severe without psychotic features (principal); R11.0 Nausea; F90.9 Attention-deficit hyperactivity disorder, unspecified type; F41.1 Generalized anxiety disorder; I10 Essential (primary) hypertension; E04.1 Nontoxic single thyroid nodule; K21.9 Gastro-esophageal reflux disease without esophagitis; Z79.899 Other long term (current) drug therapy; Z87.891 Personal history of nicotine dependence
CPT/HCPCS: 90870; J0330; J2405

== ENCOUNTER → 2024-09-09 05:48 | Outpatient (BNV) | payer MEDICARE, SELFPAY | PROVIDERS: PCP Internal Medicine; Visit Provider Psychiatry & Neurology Psychiatry | DX: F33.2 Major depressive disorder, recurrent severe without psychotic features (principal) | CPT/HCPCS: 90870 ==

== ENCOUNTER 2024-09-12 05:47 | Day surgery (SDC) | payer MEDICARE, SELFPAY ==
[2024-09-12 06:45] VITALS: BP 137/71; PULSE 67; RESP 16; TEMP 35.7; O2SAT 96; BMI 21.0
[2024-09-12] MEDS: Scopolamine 1.5 MG PATCH.TD.3 EAR-BEHIND (07:08)
[2024-09-12] MEDS: Lactated Ringers 1,000 ML 100 ML IVCONT (07:08)
--- NOTE | 2024-09-12 07:55 | MHC.SHP ---
Pre-Procedural Eval Section A - 24 Hr Update-Section A only Date of Service: 09/12/24 Section B - Complete if H&P > 30 days Chief Complaint: Major depressive disorder, recurrent, severe with Details of Present Illness: Much improved no new medical concerns Relevant Social History: None Present Medications: see Short Stay Collaborative assessment Medical History: Significant History History of Previous Operations: Relevant previous surgery/procedure and date(s) (ect) Allergies: Allergies Allergy/AdvReac Type Severity Reaction Status Date / Time No Known Allergies Allergy Verified 08/27/23 10:27 Review of Systems Sugical H&P ROS: Negative: Cardiovascular, Respiratory and Neurological (has felt alert fx ) and Yes, Specify: Eyes/Ears/Nose/Throat (throat clearing) Exam Surgical H&P Exam: Normal: Heart, Normal: Lungs (clear) and Normal: Neurological Exam Comment: 137/71 p 67 Plan Diagnosis/Plan: Unchanged I have reviewed the history and physical and performed a pertinent physical examination on my patient. No changes have occurred unless specified. Time Spent With Patient Time: Total time managing care of this patient today _30___ minutes.
--- NOTE | 2024-09-12 07:57 | P.CONAN_ITS ---
[facility] Active Problems Active Problems: All Active Problems Pre-op evaluation (Acute) Thyroid nodule (Acute) Major depressive disorder in partial remission (Acute) Delirium in remission (Acute) Major depressive disorder, recurrent, severe with psychotic features (Acute) Footdrop (Acute) Major depressive disorder, recurrent severe without psychotic features (Acute) Personality disorder (Acute) Organic catatonia (Acute) Abnormal EKG (Acute) Odynophagia (Acute) Paranoia (Acute) Dysphagia (Acute) Serotonin syndrome (Acute) Ataxia (Acute) Tremors of nervous system (Acute) Major depression in full remission (Acute) Memory deficit (Acute) ADHD (attention deficit hyperactivity disorder) (Acute) ZAC (generalized anxiety disorder) (Acute) Depression (Acute) Acute bacterial conjunctivitis of both eyes (Acute) Hypercalcemia (Acute) Hypothyroidism (Acute) Leukocytosis (Acute) Hypertension (Chronic) Past Medical History Medical History Pre-op evaluation Urinary tract infection Depression Hypothyroidism ZAC (generalized anxiety disorder) Hypertension ADHD (attention deficit hyperactivity disorder) Family History Family History Other No pertinent family history Family history of problems with anesthesia: No Surgical History Surgical History H/O thumb surgery H/O cone biopsy of cervix History of Problems with Anesthesia: No Social History Social History Household Members: Spouse Household Members Other:: And two cats. Housing: House Do you presently have visiting nurse or other home services: No Unable to assess alcohol history related to: Unknown Alcohol intake: never Patient Tobacco Use Status: Former Tobacco user Tobacco use type: Cigarette Years Smoked: 20 e-Cigarette/Vaping Use: Never Used Second Hand Smoke Exposure: No Substance Use Type: Former Substance User and Marijuana Advance Directives: No Advance Directives Information Provided: Yes service: No Sexual orientation: Straight/Heterosexual Meds Allergies Allergy/AdvReac Type Severity Reaction Status Date / Time No Known Allergies Allergy Verified 08/27/23 10:27 Active Medications: Current Medications Lactated Ringer's (Lr) 1,000 mls @ 100 mls/hr IVCONT .Q10H NORBERTO Last Admin: 09/12/24 07:08 Dose: 100 mls/hr Home Medications ?Medication ?Instructions ?Recorded ?Confirmed ?Last Taken ?Type fluticasone propionate 50 1 spray intranasal BID 08/27/23 03/01/24 Unknown History mcg/actuation nasal spray,suspension amlodipine 5 mg tablet 10 mg PO DAILY 07/12/24 Unknown History Exam Height,Weight and Vital Signs: Height 5 ft 2 in Weight 52.163 kg Last Vital Signs Temp 96.3 F L 09/12/24 06:45 Pulse 67 09/12/24 06:45 Resp 16 09/12/24 06:45 BP 137/71 09/12/24 06:45 Pulse Ox 96 09/12/24 06:45 O2 Del Method Room Air 09/12/24 06:45 Airway Mallampati Class: II TM Dist: >3cm Neck ROM: Full Loose/Missing/Broken Teeth: No Heart: RRR Lungs: CTA Assessment and Plan Assessment Anesthesia Assessment: Anesthesia Plan Discussed and Chart Reviewed Final Anesthetic Review Family History of Problems with Anesthesia: No History of Problems with Anesthesia: No NPO: Yes ASA Class: II Final Preanesthetic Review: Meds/Allgs Chart Reviewed, Consent Obtained/Reviewed and Anes Risks/Benef Reviewed Patient Risk: Low Procedure Risk: Intermediate Anesthetic Plan Anesthetic Plan: GA Disposition: Standard PACU
--- NOTE | 2024-09-12 07:58 | HO.ECTPROC ---
ECT Procedure Note Diagnosis/Treatment Date of Service: 09/12/24 Diagnosis: Major Depressive Disorder Previous ECT Date: 09/09/24 Current Treatment Number: 4 Treatment: Series Interval Clinical Notes: Patient showing ongoing clear improvement. Tolerated tx well f/u in 4 days Time: Total time managing care of this patient today ____ minutes. ECT Settings Device: THYMATRON DGx Electrode Placement: Bifrontal Program/Pulse Width: 0.25 Energy Percent: 100 Seizure Duration By EEG (in seconds): 15 Medications Administration General Anesthetic: Methohexital (70) Muscle Relaxant: Succinylcholine (80) Ancillary Medications Anti-emetics: Zofran - Pre ECT Airway Management Airway Management: Bag Mask Ventilation Treatment Recommendations No Changes Recommended: No change Notes: cont tx plan Pt Tolerated Procedure w/o Issue: Yes
[2024-09-12 08:13] VITALS: BP 164/75; PULSE 78; RESP 18; TEMP 36.4; O2SAT 98
[2024-09-12 08:18] VITALS: BP 148/74; PULSE 75; RESP 18; O2SAT 97
[2024-09-12 08:23] VITALS: BP 143/69; PULSE 73; RESP 16; O2SAT 97
[2024-09-12 08:28] VITALS: BP 137/71; PULSE 69; RESP 16; O2SAT 97
[2024-09-12 08:43] VITALS: BP 149/73; PULSE 77; RESP 16; TEMP 36.4; O2SAT 96
== END 2024-09-12 09:05 | disposition home or self-care (01) ==
PROVIDERS: PCP Internal Medicine; Visit Provider Psychiatry & Neurology Psychiatry
PROC: (CPT 90870; principal; 2024-09-12 08:00)
DX: F33.3 Major depressive disorder, recurrent, severe with psychotic symptoms (principal); F41.1 Generalized anxiety disorder; R41.840 Attention and concentration deficit; R45.4 Irritability and anger; R45.89 Other symptoms and signs involving emotional state
CPT/HCPCS: 90870; J0330; J2405

== ENCOUNTER → 2024-09-12 05:47 | Outpatient (BNV) | payer MEDICARE, SELFPAY | PROVIDERS: PCP Internal Medicine; Visit Provider Psychiatry & Neurology Psychiatry | DX: F33.3 Major depressive disorder, recurrent, severe with psychotic symptoms (principal) | CPT/HCPCS: 90870 ==

== ENCOUNTER 2024-09-16 05:45 | Day surgery (SDC) | payer MEDICARE, SELFPAY ==
[2024-09-16] VITALS (7 sets, daily range): BP systolic 132–176; BP diastolic 43–84; PULSE 81–85; RESP 16; TEMP 36.1; O2SAT 94–96; BMI 21.7
[2024-09-16] MEDS: Scopolamine 1.5 MG PATCH.TD.3 EAR-BEHIND (06:34)
--- NOTE | 2024-09-16 06:56 | P.CONAN_ITS ---
[facility] Active Problems Active Problems: All Active Problems Pre-op evaluation (Acute) Thyroid nodule (Acute) Major depressive disorder in partial remission (Acute) Delirium in remission (Acute) Major depressive disorder, recurrent, severe with psychotic features (Acute) Footdrop (Acute) Major depressive disorder, recurrent severe without psychotic features (Acute) Personality disorder (Acute) Organic catatonia (Acute) Abnormal EKG (Acute) Odynophagia (Acute) Paranoia (Acute) Dysphagia (Acute) Serotonin syndrome (Acute) Ataxia (Acute) Tremors of nervous system (Acute) Major depression in full remission (Acute) Memory deficit (Acute) ADHD (attention deficit hyperactivity disorder) (Acute) ZAC (generalized anxiety disorder) (Acute) Depression (Acute) Acute bacterial conjunctivitis of both eyes (Acute) Hypercalcemia (Acute) Hypothyroidism (Acute) Leukocytosis (Acute) Hypertension (Chronic) Past Medical History Medical History Pre-op evaluation Urinary tract infection Depression Hypothyroidism ZAC (generalized anxiety disorder) Hypertension ADHD (attention deficit hyperactivity disorder) Family History Family History Other No pertinent family history Family history of problems with anesthesia: No Surgical History Surgical History H/O thumb surgery H/O cone biopsy of cervix History of Problems with Anesthesia: No Social History Social History Household Members: Spouse Household Members Other:: And two cats. Housing: House Do you presently have visiting nurse or other home services: No Unable to assess alcohol history related to: Unknown Alcohol intake: never Patient Tobacco Use Status: Former Tobacco user Tobacco use type: Cigarette Years Smoked: 20 e-Cigarette/Vaping Use: Never Used Second Hand Smoke Exposure: No Substance Use Type: Former Substance User and Marijuana Advance Directives: No Advance Directives Information Provided: Yes service: No Sexual orientation: Straight/Heterosexual Meds Allergies Allergy/AdvReac Type Severity Reaction Status Date / Time No Known Allergies Allergy Verified 08/27/23 10:27 Active Medications: Current Medications Lactated Ringer's (Lr) 1,000 mls @ 50 mls/hr IVCONT .Q20H NORBERTO Naloxone HCl (Naloxone Hcl 0.4 Mg/Ml Vial) 0.04 mg IVPUSH Q5M PRN PRN Reason: Excessive sedation or RR < 8 Home Medications ?Medication ?Instructions ?Recorded ?Confirmed ?Last Taken ?Type fluticasone propionate 50 1 spray intranasal BID 08/27/23 03/01/24 Unknown History mcg/actuation nasal spray,suspension amlodipine 5 mg tablet 10 mg PO DAILY 07/12/24 Unknown History Exam Height,Weight and Vital Signs: Height 5 ft 1 in Weight 52.163 kg Last Vital Signs Temp 97 F 09/16/24 06:34 Pulse 81 09/16/24 06:34 Resp 16 09/16/24 06:34 BP 155/64 H 09/16/24 06:34 Pulse Ox 94 09/16/24 06:34 O2 Del Method Room Air 09/16/24 06:34 Airway Mallampati Class: II TM Dist: >3cm Neck ROM: Full Heart: rrr Lungs: cta Assessment and Plan Assessment Anesthesia Assessment: Anesthesia Plan Discussed Final Anesthetic Review Family History of Problems with Anesthesia: No History of Problems with Anesthesia: No NPO: Yes ASA Class: III Final Preanesthetic Review: No Changes in Pt Med Stat, Meds/Allgs Chart Reviewed and Consent Obtained/Reviewed Patient Risk: Intermediate Procedure Risk: Intermediate Anesthetic Plan Anesthetic Plan: GA Disposition: Standard PACU
[2024-09-16] MEDS: Lactated Ringers 1,000 ML 50 ML IVCONT (06:57)
--- NOTE | 2024-09-16 07:36 | MHC.SHP ---
Pre-Procedural Eval Section A - 24 Hr Update-Section A only Date of Service: 09/16/24 Section B - Complete if H&P > 30 days Chief Complaint: Major depressive disorder, recurrent, severe with Details of Present Illness: doing better mentally has ecchymoses r eye s/p fall no fx Relevant Social History: None Present Medications: see Short Stay Collaborative assessment Medical History: Significant History History of Previous Operations: Relevant previous surgery/procedure and date(s) (ect) Allergies: Allergies Allergy/AdvReac Type Severity Reaction Status Date / Time No Known Allergies Allergy Verified 08/27/23 10:27 Review of Systems Sugical H&P ROS: Negative: Cardiovascular, Respiratory and Gastrointestinal and Yes, Specify: Psychiatric (improved mood) and Eyes/Ears/Nose/Throat (drip sensation) Exam Surgical H&P Exam: Normal: Heart and Normal: Lungs Exam Comment: eccymoses by r orbit no obvious fx no head inj Plan Diagnosis/Plan: Unchanged I have reviewed the history and physical and performed a pertinent physical examination on my patient. No changes have occurred unless specified. Time Spent With Patient Time: Total time managing care of this patient today ____ minutes.
--- NOTE | 2024-09-16 07:47 | HO.ECTPROC ---
ECT Procedure Note Diagnosis/Treatment Date of Service: 09/16/24 Diagnosis: Major Depressive Disorder Previous ECT Date: 09/12/24 Current Treatment Number: 5 Treatment: Series Interval Clinical Notes: Patient showing ongoing clear improvement. Tolerated tx well has been much more active Excited to be having ENT appointment changed from January to October she does tend to be preoccupied with throat congestion Patient treated bifrontally 0.25 program tolerated well Decreased Brevital to 60 mg or change pulse 0.5 Time: Total time managing care of this patient today _30___ minutes. ECT Settings Device: THYMATRON DGx Electrode Placement: Bifrontal Program/Pulse Width: 0.25 Energy Percent: 100 Seizure Duration By EEG (in seconds): 15 Medications Administration General Anesthetic: Methohexital (70) Muscle Relaxant: Succinylcholine (80) Ancillary Medications Anti-emetics: Zofran - Pre ECT Airway Management Airway Management: Bag Mask Ventilation Treatment Recommendations Notes: cont tx plan Pt Tolerated Procedure w/o Issue: Yes
== END 2024-09-16 08:25 | disposition home or self-care (01) ==
PROVIDERS: PCP Internal Medicine; Visit Provider Psychiatry & Neurology Psychiatry
PROC: (CPT 90870; principal; 2024-09-16 07:30)
DX: F33.2 Major depressive disorder, recurrent severe without psychotic features (principal); F41.1 Generalized anxiety disorder; I10 Essential (primary) hypertension; Z79.899 Other long term (current) drug therapy; Z87.891 Personal history of nicotine dependence
CPT/HCPCS: 90870; J0330; J2405

== ENCOUNTER → 2024-09-16 05:45 | Outpatient (BNV) | payer MEDICARE, SELFPAY | PROVIDERS: PCP Internal Medicine; Visit Provider Psychiatry & Neurology Psychiatry | DX: F33.2 Major depressive disorder, recurrent severe without psychotic features (principal) | CPT/HCPCS: 90870 ==

== ENCOUNTER 2024-09-23 06:17 | Day surgery (SDC) | payer MEDICARE, SELFPAY ==
--- NOTE | 2024-09-22 16:51 | HO.ANESPROP2 ---
Documented by User: Juju Springer MD 09/22/24 16:55 HPI - Anesthesia Eval Consult details Narrative: 73 yo female patient for ECT PMFSH Active Problems Active Problems: All Active Problems Pre-op evaluation (Acute) Thyroid nodule (Acute) Major depressive disorder in partial remission (Acute) Delirium in remission (Acute) Major depressive disorder, recurrent, severe with psychotic features (Acute) Footdrop (Acute) Major depressive disorder, recurrent severe without psychotic features (Acute) Personality disorder (Acute) Organic catatonia (Acute) Abnormal EKG (Acute) Odynophagia (Acute) Paranoia (Acute) Dysphagia (Acute) Serotonin syndrome (Acute) Ataxia (Acute) Tremors of nervous system (Acute) Major depression in full remission (Acute) Memory deficit (Acute) ADHD (attention deficit hyperactivity disorder) (Acute) ZAC (generalized anxiety disorder) (Acute) Depression (Acute) Acute bacterial conjunctivitis of both eyes (Acute) Hypercalcemia (Acute) Hypothyroidism (Acute) Leukocytosis (Acute) Hypertension (Chronic) Past Medical History Medical History Pre-op evaluation Urinary tract infection Depression Hypothyroidism ZAC (generalized anxiety disorder) Hypertension ADHD (attention deficit hyperactivity disorder) Family History Family History Other No pertinent family history Family history of problems with anesthesia: No Surgical History Surgical History H/O thumb surgery H/O cone biopsy of cervix History of Problems with Anesthesia: No Social History Social History Household Members: Spouse Household Members Other:: And two cats. Housing: House Do you presently have visiting nurse or other home services: No Unable to assess alcohol history related to: Unknown Alcohol intake: never Patient Tobacco Use Status: Former Tobacco user Tobacco use type: Cigarette Years Smoked: 20 e-Cigarette/Vaping Use: Never Used Second Hand Smoke Exposure: No Substance Use Type: Former Substance User and Marijuana Advance Directives: No Advance Directives Information Provided: Yes service: No Sexual orientation: Straight/Heterosexual Meds Allergies Allergy/AdvReac Type Severity Reaction Status Date / Time No Known Allergies Allergy Verified 08/27/23 10:27 Home Medications ?Medication ?Instructions ?Recorded ?Confirmed ?Last Taken ?Type fluticasone propionate 50 1 spray intranasal BID 08/27/23 03/01/24 Unknown History mcg/actuation nasal spray,suspension amlodipine 5 mg tablet 10 mg PO DAILY 07/12/24 Unknown History Exam Airway Mallampati Class: II TM Dist: >3cm Neck ROM: Full Assessment and Plan Assessment Anesthesia Assessment: Anesthesia Plan Discussed and Chart Reviewed Final Anesthetic Review Family History of Problems with Anesthesia: No History of Problems with Anesthesia: No ASA Class: III Final Preanesthetic Review: No Changes in Pt Med Stat, Meds/Allgs Chart Reviewed, Consent Obtained/Reviewed and Anes Risks/Benef Reviewed Patient Risk: Intermediate Procedure Risk: Intermediate Anesthetic Plan Anesthetic Plan: GA Disposition: Standard PACU Documented by User: Lavern Kumari MD 09/23/24 07:31 [facility] Past Medical History Medical History Pre-op evaluation Urinary tract infection Depression Hypothyroidism ZAC (generalized anxiety disorder) Hypertension ADHD (attention deficit hyperactivity disorder) Family History Family History Other No pertinent family history Surgical History Surgical History H/O thumb surgery H/O cone biopsy of cervix Social History Social History Household Members: Spouse Household Members Other:: And two cats. Housing: House Do you presently have visiting nurse or other home services: No Unable to assess alcohol history related to: Unknown Alcohol intake: never Patient Tobacco Use Status: Former Tobacco user Tobacco use type: Cigarette Years Smoked: 20 e-Cigarette/Vaping Use: Never Used Second Hand Smoke Exposure: No Substance Use Type: Former Substance User and Marijuana Advance Directives: No Advance Directives Information Provided: Yes service: No Sexual orientation: Straight/Heterosexual Meds Allergies Allergy/AdvReac Type Severity Reaction Status Date / Time No Known Allergies Allergy Verified 08/27/23 10:27 Home Medications ?Medication ?Instructions ?Recorded ?Confirmed ?Last Taken ?Type fluticasone propionate 50 1 spray intranasal BID 08/27/23 03/01/24 Unknown History mcg/actuation nasal spray,suspension amlodipine 5 mg tablet 10 mg PO DAILY 07/12/24 Unknown History Exam Airway Loose/Missing/Broken Teeth: No Heart: RRR Lungs: CTA
[2024-09-23] VITALS (7 sets, daily range): BP systolic 130–150; BP diastolic 75–82; PULSE 74–85; RESP 16–116; TEMP 36.1–36.2; O2SAT 95–98; BMI 19.8
[2024-09-23] MEDS: Scopolamine 1.5 MG PATCH.TD.3 EAR-BEHIND (06:59)
[2024-09-23] MEDS: Lactated Ringers 1,000 ML 100 ML IVCONT (07:01)
--- NOTE | 2024-09-23 07:24 | MHC.SHP ---
Pre-Procedural Eval Section A - 24 Hr Update-Section A only Date of Service: 09/23/24 Section B - Complete if H&P > 30 days Chief Complaint: depression Details of Present Illness: doing ok preoccupied with throat secretions waiting on ent Relevant Social History: None Present Medications: see Short Stay Collaborative assessment Medical History: Significant History History of Previous Operations: Relevant previous surgery/procedure and date(s) (ect) Allergies: Allergies Allergy/AdvReac Type Severity Reaction Status Date / Time No Known Allergies Allergy Verified 08/27/23 10:27 Review of Systems Sugical H&P ROS: Negative: Cardiovascular, Respiratory and Gastrointestinal and Yes, Specify: Psychiatric (improved mood) and Eyes/Ears/Nose/Throat (drip sensation) Exam Surgical H&P Exam: Normal: Heart and Normal: Lungs Exam Comment: eccymoses by r orbit no obvious fx no head inj Plan Diagnosis/Plan: Unchanged I have reviewed the history and physical and performed a pertinent physical examination on my patient. No changes have occurred unless specified. Time Spent With Patient Time: Total time managing care of this patient today ____ minutes.
--- NOTE | 2024-09-23 07:29 | HO.ECTPROC ---
ECT Procedure Note Diagnosis/Treatment Date of Service: 09/25/24 Diagnosis: Major Depressive Disorder Treatment: Maintenance Interval Clinical Notes: Patient seen in follow-up has had increased anxiety increasing throat secretions reportedly she is going to see ENT in the next month bifrontal ECT completed 0.5 pulse with was having short seizures with 0.25 pulse with Time: Total time managing care of this patient today ____ minutes. ECT Settings Device: THYMATRON DGx Electrode Placement: Bifrontal Program/Pulse Width: 0.50 Energy Percent: 100 Seizure Duration By EEG (in seconds): 31 Medications Administration General Anesthetic: Methohexital (70) Muscle Relaxant: Succinylcholine (80) Ancillary Medications Miscillaneous Medications: Propofol Treatment Recommendations No Changes Recommended: No change Notes: Monitor response to treatment Pt Tolerated Procedure w/o Issue: Yes
== END 2024-09-23 09:00 | disposition home or self-care (01) ==
PROVIDERS: PCP Internal Medicine; Visit Provider Psychiatry & Neurology Psychiatry
PROC: (CPT 90870; principal; 2024-09-23 08:00)
DX: F33.2 Major depressive disorder, recurrent severe without psychotic features (principal); F90.9 Attention-deficit hyperactivity disorder, unspecified type; F41.1 Generalized anxiety disorder; R09.3 Abnormal sputum; I10 Essential (primary) hypertension; Z79.899 Other long term (current) drug therapy; Z87.891 Personal history of nicotine dependence
CPT/HCPCS: 90870; J0330; J2405

== ENCOUNTER → 2024-09-23 06:17 | Outpatient (BNV) | payer MEDICARE, SELFPAY | PROVIDERS: PCP Internal Medicine; Visit Provider Psychiatry & Neurology Psychiatry | DX: F33.2 Major depressive disorder, recurrent severe without psychotic features (principal) | CPT/HCPCS: 90870 ==

== ENCOUNTER 2024-10-07 05:49 | Day surgery (SDC) | payer MEDICARE, SELFPAY ==
[2024-10-07 06:25] VITALS: BP 149/82; PULSE 70; RESP 20; TEMP 36.4; O2SAT 95; BMI 23.4
[2024-10-07] MEDS: Scopolamine 1.5 MG PATCH.TD.3 EAR-BEHIND (06:27)
--- NOTE | 2024-10-07 06:41 | P.CONAN_ITS ---
FORM[facility]LY [facility] Active Problems Active Problems: All Active Problems Pre-op evaluation (Acute) Thyroid nodule (Acute) Major depressive disorder in partial remission (Acute) Delirium in remission (Acute) Major depressive disorder, recurrent, severe with psychotic features (Acute) Footdrop (Acute) Major depressive disorder, recurrent severe without psychotic features (Acute) Personality disorder (Acute) Organic catatonia (Acute) Abnormal EKG (Acute) Odynophagia (Acute) Paranoia (Acute) Dysphagia (Acute) Serotonin syndrome (Acute) Ataxia (Acute) Tremors of nervous system (Acute) Major depression in full remission (Acute) Memory deficit (Acute) ADHD (attention deficit hyperactivity disorder) (Acute) ZAC (generalized anxiety disorder) (Acute) Depression (Acute) Acute bacterial conjunctivitis of both eyes (Acute) Hypercalcemia (Acute) Hypothyroidism (Acute) Leukocytosis (Acute) Hypertension (Chronic) Past Medical History Medical History Pre-op evaluation Urinary tract infection Depression Hypothyroidism ZAC (generalized anxiety disorder) Hypertension ADHD (attention deficit hyperactivity disorder) Family History Family History Other No pertinent family history Family history of problems with anesthesia: No Surgical History Surgical History H/O thumb surgery H/O cone biopsy of cervix History of Problems with Anesthesia: No Social History Social History Household Members: Spouse Household Members Other:: And two cats. Housing: House Do you presently have visiting nurse or other home services: No Unable to assess alcohol history related to: Unknown Alcohol intake: never Patient Tobacco Use Status: Former Tobacco user Tobacco use type: Cigarette Years Smoked: 20 e-Cigarette/Vaping Use: Never Used Second Hand Smoke Exposure: No Substance Use Type: Former Substance User and Marijuana Advance Directives: No Advance Directives Information Provided: Yes service: No Sexual orientation: Straight/Heterosexual Meds Allergies Allergy/AdvReac Type Severity Reaction Status Date / Time No Known Allergies Allergy Verified 08/27/23 10:27 Active Medications: Current Medications Lactated Ringer's (Lr) 1,000 mls @ 50 mls/hr IVCONT .Q20H NORBERTO Home Medications ?Medication ?Instructions ?Recorded ?Confirmed ?Last Taken ?Type fluticasone propionate 50 1 spray intranasal BID 08/27/23 03/01/24 Unknown History mcg/actuation nasal spray,suspension amlodipine 5 mg tablet 10 mg PO DAILY 07/12/24 Unknown History Exam Height,Weight and Vital Signs: Height 5 ft 1 in Weight 56.245 kg Last Vital Signs Temp 97.5 F 10/07/24 06:25 Pulse 70 10/07/24 06:25 Resp 20 10/07/24 06:25 BP 149/82 H 10/07/24 06:25 Pulse Ox 95 10/07/24 06:25 O2 Del Method Room Air 10/07/24 06:25 Airway Mallampati Class: II TM Dist: >3cm Neck ROM: Full Heart: rrr Lungs: cta Assessment and Plan Assessment Anesthesia Assessment: Anesthesia Plan Discussed and Chart Reviewed Final Anesthetic Review Family History of Problems with Anesthesia: No History of Problems with Anesthesia: No NPO: Yes ASA Class: III Final Preanesthetic Review: No Changes in Pt Med Stat, Meds/Allgs Chart Reviewed and Consent Obtained/Reviewed Patient Risk: Intermediate Procedure Risk: Intermediate Anesthetic Plan Anesthetic Plan: GA Disposition: Standard PACU
[2024-10-07] MEDS: Lactated Ringers 1,000 ML 50 ML IVCONT (06:42)
--- NOTE | 2024-10-07 07:02 | MHC.SHP ---
Pre-Procedural Eval Section A - 24 Hr Update-Section A only Date of Service: 10/07/24 The patient is an INPATIENT: No Changes since office visit: Yes Cold of Flu in the past 2 weeks, Yes New Medical Problems, Yes Changes in Medication and Yes Patient answered all questions The patient has been examined within 24 hours of the surgical procedure. The History & Physical has been completed within 30 days and I have reviewed it.: No Section B - Complete if H&P > 30 days Chief Complaint: Major depressive disorder, recurrent, severe with Details of Present Illness: The patient reported stable mood, no changes, waiting for ENT appointment Relevant Family History (Specify if Yes): No Relevant Social History: None Present Medications: see Short Stay Collaborative assessment Medical History: No relevant PMH History of Previous Operations: No relevant previous surgery Allergies: Allergies Allergy/AdvReac Type Severity Reaction Status Date / Time No Known Allergies Allergy Verified 08/27/23 10:27 Review of Systems Sugical H&P ROS: Negative: Constitution, Cardiovascular, Respiratory, Neurological, Psychiatric, Hem-Onc, Allergic/Immunologic, Gastrointestinal, Genitourinary, Musculoskeletal, Integumentary, Endocrine and Eyes/Ears/Nose/Throat Exam Surgical H&P Exam: Normal: HEENT, Normal: Heart, Normal: Lungs, Normal: Extremities, Normal: Abdomen, Normal: Skin and Normal: Neurological Plan Diagnosis/Plan: Unchanged I have reviewed the history and physical and performed a pertinent physical examination on my patient. No changes have occurred unless specified. Time Spent With Patient Time: Total time managing care of this patient today __15__ minutes.
--- NOTE | 2024-10-07 07:17 | HO.ECTPROC ---
ECT Procedure Note Diagnosis/Treatment Date of Service: 10/07/24 Diagnosis: Bipolar disorder Previous ECT Date: 09/23/24 Treatment: Maintenance Interval Clinical Notes: The patient reported stable mood, she is waiting for an appointment to ENT. No side effects with previous ECT. ECT done as usual, no complications, woke up well. No propofol after the procedure Time: Total time managing care of this patient today __30__ minutes. ECT Settings Device: THYMATRON DGx Electrode Placement: Bifrontal Program/Pulse Width: 0.50 Energy Percent: 100 Seizure Duration By EEG (in seconds): 29 By Motor Observation (in seconds): 24 Medications Administration General Anesthetic: Methohexital (70) Muscle Relaxant: Succinylcholine (80) Airway Management Airway Management: Bag Mask Ventilation Treatment Recommendations No Changes Recommended: No change Pt Tolerated Procedure w/o Issue: Yes
[2024-10-07 07:22] VITALS: BP 183/94; PULSE 92; RESP 16; TEMP 36.8; O2SAT 99
[2024-10-07 07:27] VITALS: BP 143/74; PULSE 81; RESP 16; TEMP 36.8; O2SAT 98
[2024-10-07 07:32] VITALS: BP 136/73; PULSE 79; RESP 14; TEMP 36.8; O2SAT 99
[2024-10-07 07:37] VITALS: BP 147/74; PULSE 76; RESP 14; TEMP 36.8; O2SAT 99
[2024-10-07 07:52] VITALS: BP 160/73; PULSE 73; RESP 14; TEMP 36.4; O2SAT 96
== END 2024-10-07 08:20 | disposition home or self-care (01) ==
PROVIDERS: PCP Internal Medicine; Visit Provider Psychiatry & Neurology Psychiatry
PROC: (CPT 90870; principal; 2024-10-07 07:30)
DX: F31.9 Bipolar disorder, unspecified (principal); F41.1 Generalized anxiety disorder; F90.9 Attention-deficit hyperactivity disorder, unspecified type; I10 Essential (primary) hypertension; Z79.899 Other long term (current) drug therapy; Z87.891 Personal history of nicotine dependence
CPT/HCPCS: 90870; J0330; J2405

== ENCOUNTER → 2024-10-07 05:49 | Outpatient (BNV) | payer MEDICARE, SELFPAY | PROVIDERS: PCP Internal Medicine; Visit Provider Psychiatry & Neurology Psychiatry | DX: F33.3 Major depressive disorder, recurrent, severe with psychotic symptoms (principal) | CPT/HCPCS: 90870 ==

== ENCOUNTER 2024-10-28 05:51 | Day surgery (SDC) | payer MEDICARE, SELFPAY ==
--- OUTSIDE RECORDS SUMMARY | 2024-10-26 21:37 | XMS_ITS ---
Author Name [facility] Organization Unknown History of Medication Use Medication Directions Dispensed Refills Start Date End Date Stat buPROPion (WELLBUTRIN XL) 150 MG 24 hr tablet 10/20/2024 11/15/9999 active fluticasone (FloNASE) 50 mcg/spray nasal spray 1 spray into each nostril 2 (two) times a day. 10/20/2024 11/15/9999 aborted lithium carbonate 300 MG IR capsule Take 1 capsule (300 mg total) by mouth nightly. 10/20/2024 11/15/9999 active cariprazine (VRAYLAR) 1.5 MG caspule Take 1 capsule (1.5 mg total) by mouth daily. Do not start before January 30, 2023. 10/20/2024 11/15/9999 active propranolol (INDERAL) 20 MG tablet Take 1 tablet (20 mg total) by mouth every 8 (eight) hours around the clock. 10/20/2024 11/15/9999 active nystatin (MYCOSTATIN) 081978 UNIT/ML suspension Take 5 mL (500,000 Units total) by mouth 4 (four) times a day. 10/20/2024 11/15/9999 active Armodafinil (NUVIGIL) 150 MG tablet 10/20/2024 11/15/9999 active vitamin E 400 UNIT capsule Take 1 capsule by mouth daily. 10/20/2024 11/15/9999 active diazepam (VALIUM) 5 MG tablet 10/20/2024 11/15/9999 active ascorbic acid (VITAMIN C) 1000 MG tablet Take by mouth. 10/20/2024 11/15/9999 active guaiFENesin (MUCINEX) 600 MG 12 hr tablet Take 1 tablet (600 mg total) by mouth 2 (two) times a day. 10/20/2024 11/15/9999 active LORazepam (ATIVAN) 1 MG tablet Take 1 tablet (1 mg total) by mouth nightly. 10/20/2024 11/15/9999 active nortriptyline (PAMELOR) 10 MG capsule Take 3 capsules (30 mg total) by mouth nightly. 10/20/2024 11/15/9999 active famotidine (PEPCID) 40 MG tablet Take 1 tablet (40 mg total) by mouth nightly. 10/20/2024 11/15/9999 active amLODIPine (NORVASC) 10 MG tablet Take 1 tablet (10 mg total) by mouth daily. Do not start before January 30, 2023. 10/20/2024 11/15/9999 active FLUoxetine (PROzac) 20 MG capsule Take 3 capsules (60 mg total) by mouth daily. Do not start before January 30, 2023. 10/20/2024 11/15/9999 active QUEtiapine (SEROquel) 25 MG tablet 10/20/2024 11/15/9999 active Problems Problem Status Onset Date Problem Type Date of Resolution Source Low serum creatinine active 2021-06-13 ProblemAct [facility] Oropharyngeal dysphagia active EncounterDiagnos isAct [facility] Depressed bipolar I disorder active 2024-10-18 ProblemAct [facility] Attention deficit hyperactivity disorder, predominantly inattentive type active 2024-06-15 ProblemAct [facility] Menopausal symptom active 2024-10-18 ProblemAct [facility] Throat discomfort active EncounterDiagnosisAct [facility] Depressive disorder active 2024-06-15 ProblemAct [facility] MDD (major depressive disorder), recurrent severe, without psychosis active 2023-01-23 ProblemAct [facility] Atrophic vaginitis active 2024-10-18 ProblemAct [facility] History of cervical dysplasia active 2024-10-18 ProblemAct [facility] Essential hypertension active 2024-06-15 ProblemAct [facility] Chronic kidney disease, stage 2 (mild) active 2021-06-13 ProblemAct [facility] Carcinoma in situ of cervix uteri active 2024-10-18 ProblemAct [facility] 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 active 2021-06-13 ProblemAct [facility] Gastroesophageal reflux disease without esophagitis active EncounterDiagnosisAct [facility] Osteochondropathy active 2024-10-18 ProblemAct [facility] Immunizations Vaccine Date Source Lot Number Status Pneumococcal Polysaccharide 23-Valent 12/22/2019 [facility] [id number] completed Influenza, Quadrivalent (FLU ARIX, AFLURIA, FLULAVAL, FLUZONE) Preservative Free IM 11/27/2016 [facility] [id number] completed Influenza Virus Trivalent Sp lit Vaccine (MDV) IM 07/27/2015 [facility] [id number] completed Tdap 11/30/2017 [facility] [id number] completed Pneumococcal Conjugate 13-Valent 11/27/2016 [facility] [id number] completed
--- OUTSIDE RECORDS SUMMARY | 2024-10-26 21:37 | XMS_ITS ---
Continuity of Care Document (CCD) Created on: October 26, 2024 Miriam Valencia External Reference #: [id number] : 1950 Sex: Female Author Organization [facility] Address [address] [place] [address] Phone [phone] Care Team Providers Care Parish Visitor Name Role Phone Tami Francis M.D. Care Team Information Receiv er [phone] Problems Active Problems Provider Date Attention deficit hyperactiv ity disorder, predominantly inattentive type NEMO Bill Onset: 06/15/2024 Essential hypertension NEMO Bill Onset: 06/15/2024 Depressive disorder NEMO Bill Onset: Social History Type Date Description Comments Sex Unknown ETOH Use Never used alcohol Tobacco Use Start: Unknown End: Unknown Patient is a former smoker Allergies and adverse reactions Description No Known Drug Allergies Medications Active Medications SIG Qnty Indications Order ing Provider Date Tjpqzbvw4do Tablets Take 1/2 Tab Every Morning, 1/2 Tab Afternoon, 1 Tab Bedtime as Needed Unknown Quetiapine Hnntuhqv25vb Tablets Take 1 Tablet AT Bedtime, 1/2-1 Daily as Needed For Obsessional Thinking Unknown Ktoddsptpns411wv Tablets Take One Tablet By Mouth Every Morning Unknown Bupropion Hydrochloride ER (XL)150mg Tablets ER 24HR Take 1 Tablet By Mouth Every Day Unknown Amlodipine Twmhbqha27hb Tablets Take 1 Tablet By Mouth Every Day Tami Francis M.D. Ytsvsnkuov18gn Tablets Take 1 Tablet By Mouth Every Day Unknown Vitamin K6103ql Tablets 1 by mouth every day Unknown Calcium 3862658(600Ca) mg Tablets 1 by mouth twice a day Unknown Cqsorl28uy Tablets Unknown 0 Vital Signs Date Vital Result Comment 08/11/2024 11:10am BP Systolic 100 mmHg BP Diastolic 60 mmHg Heart Rate 98 /min Height 61 inches 5'1 Weight 115.38 lb BMI (Body Mass Index) 21.8 kg/m2 Results Test Acquired Date Facility Test Result H/L [place] Laboratory test finding 08/11/2024 [facility] Thyrotropin Receptor Ab, Serum TNP IU/L 1 TSH 0.538 uIU/mL 0.450-4.5 00 Thyroxine (T4) Free, Direct 1.09 ng/dL 0.82-1.77 Triiodothyronin e (T3), Free 3.7 pg/mL 2.0-4.4 Request Problem TNP 2 TSH+Free T4 07/04/2024 [facility] TSH 0.064 uIU/mL Low 0.450-4.5 00 T4,Free(Direct) 0.91 ng/dL 0.82- 1.77 Laboratory test finding 07/04/2024 [facility] Triiodothyronine (T3), Free 3.6 pg/mL 2.0-4.4 Thyrotropin Rec eptor Ab, Serum <1.10 IU/L 0.00-1.75 TSH Rfx on Abnormal to Free T4 06/15/2024 [facility] TSH RFX On Abnormal To Free T4 0.156 uIU/mL Low 0.450-4.5 00 T4,Free (Direct) 0.92 ng/dL 0.82 -1.77 Laboratory test finding 06/15/2024 [facility] Thyroid Peroxidase (Tpo) Ab 11 IU/mL 0-34 1 Test not performed. Specimen not received at refrigerated temperature. 2 Test not performed. Specimen not received at refrigerated temperature. 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
[2024-10-28] VITALS (8 sets, daily range): BP systolic 140–165; BP diastolic 73–80; PULSE 71–82; RESP 16–21; TEMP 36.2–36.3; O2SAT 95–99; BMI 29.3
--- NOTE | 2024-10-28 07:07 | HO.ANESPROP2 ---
HPI - Anesthesia Eval Consult details Narrative: 73 yo female patient for ECT PMFSH Active Problems Active Problems: All Active Problems Pre-op evaluation (Acute) Thyroid nodule (Acute) Major depressive disorder in partial remission (Acute) Delirium in remission (Acute) Major depressive disorder, recurrent, severe with psychotic features (Acute) Footdrop (Acute) Major depressive disorder, recurrent severe without psychotic features (Acute) Personality disorder (Acute) Organic catatonia (Acute) Abnormal EKG (Acute) Odynophagia (Acute) Paranoia (Acute) Dysphagia (Acute) Serotonin syndrome (Acute) Ataxia (Acute) Tremors of nervous system (Acute) Major depression in full remission (Acute) Memory deficit (Acute) ADHD (attention deficit hyperactivity disorder) (Acute) ZAC (generalized anxiety disorder) (Acute) Depression (Acute) Acute bacterial conjunctivitis of both eyes (Acute) Hypercalcemia (Acute) Hypothyroidism (Acute) Leukocytosis (Acute) Hypertension (Chronic) Past Medical History Medical History Pre-op evaluation Urinary tract infection Depression Hypothyroidism ZAC (generalized anxiety disorder) Hypertension ADHD (attention deficit hyperactivity disorder) Family History Family History Other No pertinent family history Family history of problems with anesthesia: No Surgical History Surgical History H/O thumb surgery H/O cone biopsy of cervix History of Problems with Anesthesia: No Social History Social History Household Members: Spouse Household Members Other:: And two cats. Housing: House Do you presently have visiting nurse or other home services: No Unable to assess alcohol history related to: Unknown Alcohol intake: never Patient Tobacco Use Status: Never used Tobacco Tobacco use type: Cigarette Years Smoked: 20 e-Cigarette/Vaping Use: Never Used Second Hand Smoke Exposure: No Substance Use Type: Former Substance User and Marijuana service: No Sexual orientation: Straight/Heterosexual Meds Allergies Allergy/AdvReac Type Severity Reaction Status Date / Time No Known Allergies Allergy Verified 10/28/24 07:13 Home Medications ?Medication ?Instructions ?Recorded ?Confirmed ?Last Taken ?Type fluticasone propionate 50 1 spray intranasal BID 08/27/23 03/01/24 Unknown History mcg/actuation nasal spray,suspension amlodipine 5 mg tablet 10 mg PO DAILY 07/12/24 Unknown History Exam Height,Weight and Vital Signs: Height 5 ft 2 in Weight 72.575 kg Vital Signs Temp Pulse Resp BP Pulse Ox O2 Del Method 97.4 F 74 16 145/73 H 95 Room Air 10/28/24 07:15 10/28/24 07:15 10/28/24 07:15 10/28/24 07:15 10/28/24 07:15 10/28/24 07:15 Airway Mallampati Class: III (Small mouth opening) TM Dist: >3cm Neck ROM: Full Loose/Missing/Broken Teeth: No Heart: RRR Lungs: CTAB Assessment and Plan Assessment Anesthesia Assessment: Anesthesia Plan Discussed and Chart Reviewed Final Anesthetic Review Family History of Problems with Anesthesia: No History of Problems with Anesthesia: No NPO: Yes ASA Class: III Final Preanesthetic Review: No Changes in Pt Med Stat, Meds/Allgs Chart Reviewed, Consent Obtained/Reviewed and Anes Risks/Benef Reviewed Patient Risk: Intermediate Procedure Risk: Intermediate Anesthetic Plan Anesthetic Plan: GA Disposition: Standard PACU
--- NOTE | 2024-10-28 07:12 | MHC.SHP ---
Pre-Procedural Eval Section A - 24 Hr Update-Section A only Date of Service: 10/28/24 Section B - Complete if H&P > 30 days Chief Complaint: Major depressive disorder, recurrent, severe with Details of Present Illness: hx recurrent tx resistant depression Relevant Social History: None Present Medications: see Short Stay Collaborative assessment Allergies: Allergies Allergy/AdvReac Type Severity Reaction Status Date / Time No Known Allergies Allergy Verified 08/27/23 10:27 Review of Systems Sugical H&P ROS: Negative: Cardiovascular, Respiratory and Neurological and Yes, Specify: Psychiatric (depression anxiety), Gastrointestinal (abd gas) and Eyes/Ears/Nose/Throat (? thrush) Exam Surgical H&P Exam: Normal: Heart and Normal: Lungs Plan Diagnosis/Plan: Unchanged I have reviewed the history and physical and performed a pertinent physical examination on my patient. No changes have occurred unless specified. Time Spent With Patient Time: Total time managing care of this patient today ____ minutes.
--- NOTE | 2024-10-28 07:15 | HO.ECTPROC ---
ECT Procedure Note Diagnosis/Treatment Date of Service: 10/28/24 Diagnosis: Major Depressive Disorder Interval Clinical Notes: Pt feeleing better no c/o problems with ect Time: Total time managing care of this patient today ____ minutes. ECT Settings Device: THYMATRON DGx Electrode Placement: Bifrontal Program/Pulse Width: 0.50 Energy Percent: 100 Seizure Duration By EEG (in seconds): 21 Medications Administration General Anesthetic: Methohexital (70) Muscle Relaxant: Succinylcholine (80) Ancillary Medications Anti-emetics: Zofran - Pre ECT Airway Management Airway Management: Bag Mask Ventilation Treatment Recommendations No Changes Recommended: No change Notes: f/u 2-3 wks
[2024-10-28] MEDS: Lactated Ringers 1,000 ML 80 ML IVCONT (07:20)
== END 2024-10-28 09:28 | disposition home or self-care (01) ==
PROVIDERS: PCP Internal Medicine; Visit Provider Psychiatry & Neurology Psychiatry
PROC: (CPT 90870; principal; 2024-10-28 07:30)
DX: F33.2 Major depressive disorder, recurrent severe without psychotic features (principal); F41.1 Generalized anxiety disorder; F90.9 Attention-deficit hyperactivity disorder, unspecified type; I10 Essential (primary) hypertension; E04.1 Nontoxic single thyroid nodule; Z79.899 Other long term (current) drug therapy; Z87.891 Personal history of nicotine dependence
CPT/HCPCS: 90870; J0330; J2405

== ENCOUNTER → 2024-10-28 05:51 | Outpatient (BNV) | payer MEDICARE, SELFPAY | PROVIDERS: PCP Internal Medicine; Visit Provider Psychiatry & Neurology Psychiatry | DX: F33.3 Major depressive disorder, recurrent, severe with psychotic symptoms (principal) | CPT/HCPCS: 90870 ==

== ENCOUNTER 2024-11-03 14:37 | Outpatient (AMB) | payer MEDICARE, SELFPAY ==
--- OUTSIDE RECORDS SUMMARY | 2024-11-03 14:47 | XMS_ITS | Continuity of Care Document ---
Author Organization [facility] Address [address] [place] [address] Phone [phone] Care Team Providers Care Squeegee Operator Name Role Phone Tami Francis M.D. Care Team Information Receiv er [phone] Problems Active Problems Provider Date Attention deficit [...] SIG Qnty Indications Order ing Provider Date Vrmulstx4vc Tablets Take 1/2 Tab Every Morning, 1/2 Tab Afternoon, 1 Tab Bedtime as Needed Unknown Quetiapine Pxckpkkz76sa Tablets Take 1 Tablet AT Bedtime, 1/2-1 Daily as Needed For Obsessional Thinking Unknown Vmctigotyef328wg Tablets Take One Tablet By Mouth Every Morning Unknown Bupropion Hydrochloride ER (XL)150mg Tablets ER 24HR Take 1 Tablet By Mouth Every Day Unknown Amlodipine Tyyvictp43ae Tablets Take 1 Tablet By Mouth Every Day Tami Francis M.D. Htouawvcxc94qx Tablets Take 1 Tablet By Mouth Every Day Unknown Vitamin D0321je Tablets 1 by mouth every day Unknown Calcium 7212171(600Ca) mg Tablets 1 by mouth twice a day Unknown Tizkwy24td Tablets Unknown 0 Vital Signs Date Vital [...] Specimen not received at refrigerated temperature. TEST: [id number] Thyrotropin Receptor Ab, Serum Panel: [id number] Medical Devices Description No Information Available Encounters [...]
--- NOTE | 2024-11-03 15:36 | MHC.OFFVISPS ---
Intake Intake Visit Reasons: Depression Allergies No Known Allergies Allergy (Verified 10/28/24 07:13) Medication List - Last Reconciled 11/03/24 by Yovany Shearer MD amlodipine 10 mg See Protocol PO DAILY armodafinil 75 mg (1/2 x 150 mg) PO QAM ascorbic acid (vitamin C) (Vitamin C) 2,000 mg (4 x 500 mg) PO BEDTIME 30 days bupropion HCl SR 150 mg PO BID diazepam 2.5 - 5 mg (0.5 - 1 x 5 mg) PO DIRECTED 30 days famotidine 40 mg PO DAILY fluticasone propionate 50 mcg/actuation 1 spray intranasal BID melatonin 6 mg (2 x 3 mg) PO BEDTIME PRN multivitamin (Daily-Dara tablet) 1 tab PO DAILY 30 days omeprazole 20 mg PO DAILY@0630 quetiapine 25 - 50 mg (1 - 2 x 25 mg) PO BEDTIME 60 days HPI- Psychiatric Chief Complaint: Depression HPI Narrative: Patient seen psychiatric follow-up. Mood significantly improved. Patient feels supported by recent visit to ENT who feels he has not understanding of what is being going on with her symptomatically. Did feel better with intermittent ECT no significant side effects some intermittent cognitive issues remembering names at times. Feels much more like herself . Has been active in [employer]. Past Psychiatric History: -Pt sees Dr. Shearer in OP setting recent hospitalization at the [facility] Has had often on relapses over the past year and half -Remote hx of IPLOC 12 yrs ago, [place] [facility] [place] with at least 4 admissions in the last 2 years Mental Status Exam Mental Status Exam Patient Appearance: Well Grooomed Patient Orientation: Person, Place, Time and Situation Level of Consciousness: Awake and Appropriate Patient Behavior: Appropriate Mood Description: Calm and Appropriate Affect Description: Constricted Patient Cognition Impaired: No Ability to Follow Directions: Good Speech Pattern: Clear Memory Description: Intact Hallucinations: None Delusions: Not Present Thought Process: Intact and Goal Oriented Thought Content: positive for Goal Oriented, negative for Suicidal Ideation or negative for Homicidal Ideation Judgement: Good Judgement and Insight: more appropriate and full affect Assessment and Plan Counseling and coordination of Care Pt. Self Management counseling: Breathing and Behavior activation Details-Self Mgmt counseling: issue srelated to manageing medical concerns Medication management counseling: Effectiveness and Side effects Diagnosis and Prognosis Counseling: Impact of diagnosis on life functions and Adequacy of current interventions Details-Diagnosis/Prognosis counseling: seen with her ect maint ect Details: I spent [30] minutes reviewing the record, seeing the patient and documenting in the medical record. Counseling provided to the patient/caregiver as outlined below. Addressed patient/caregiver concerns regarding current medication regime including effective adherence. Addressed patient/caregiver concerns regarding diagnosis and prognosis including accuracy of diagnosis, prognosis over time, impact of diagnosis. Addressed patient/caregiver concerns regarding impact of recent stressors. [facility] Medical History Pre-op evaluation Urinary tract infection Depression Hypothyroidism ZAC (generalized anxiety disorder) Hypertension ADHD (attention deficit hyperactivity disorder) Surgical History H/O thumb surgery H/O cone biopsy of cervix Family History Other No pertinent family history Social History Household Members: Spouse Household Members Other:: And two cats. 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
== END 2024-11-03 15:58 | disposition home or self-care (01) ==
LOC: HO.HOP 14:37
PROVIDERS: PCP Internal Medicine; Visit Provider Psychiatry & Neurology Psychiatry
DX: F33.1 Major depressive disorder, recurrent, moderate (principal)
CPT/HCPCS: 99214

== ENCOUNTER → 2024-11-03 14:37 | Outpatient (BNVA) | payer MEDICARE, SELFPAY | PROVIDERS: PCP Internal Medicine; Visit Provider Psychiatry & Neurology Psychiatry | DX: F32.A Depression, unspecified (principal); Z71.89 Other specified counseling | CPT/HCPCS: 99212 ==

== ENCOUNTER 2024-12-02 07:39 | Day surgery (SDC) | payer MEDICARE, SELFPAY ==
--- OUTSIDE RECORDS SUMMARY | 2024-11-04 06:11 | XMS_ITS | Continuity of Care Document ---
Author Organization [facility] Address [address] [place] [address] Phone [phone] Care Team Providers Care Reports Analysis Manager Name Role Phone Tami Francis M.D. Care Team Information Receiv er [phone] Problems Active Problems Provider Date Attention deficit [...] SIG Qnty Indications Order ing Provider Date Zlrnqfli6db Tablets Take 1/2 Tab Every Morning, 1/2 Tab Afternoon, 1 Tab Bedtime as Needed Unknown Quetiapine Eoyyvlmk48ty Tablets Take 1 Tablet AT Bedtime, 1/2-1 Daily as Needed For Obsessional Thinking Unknown Sfhknbbuwrj925er Tablets Take One Tablet By Mouth Every Morning Unknown Bupropion Hydrochloride ER (XL)150mg Tablets ER 24HR Take 1 Tablet By Mouth Every Day Unknown Amlodipine Btfzulyl97tb Tablets Take 1 Tablet By Mouth Every Day Tami Francis M.D. Symmwmwnpr68yw Tablets Take 1 Tablet By Mouth Every Day Unknown Vitamin Q1865ze Tablets 1 by mouth every day Unknown Calcium 4311020(600Ca) mg Tablets 1 by mouth twice a day Unknown Doahnn61me Tablets Unknown 0 Vital Signs Date Vital [...] Specimen not received at refrigerated temperature. TEST: [id number] Thyrotropin Receptor Ab, Serum Panel: [id number] Medical Devices Description No Information Available Encounters [...]
--- OUTSIDE RECORDS SUMMARY | 2024-12-02 07:42 | XMS_ITS | Continuity of Care Document ---
Author Organization [facility] Address [address] [place] [address] Phone [phone] Care Team Providers Care Commercial Mortgage Broker Name Role Phone Tami Francis M.D. Care Team Information Receiv er [phone] Problems Active Problems Provider Date Attention deficit [...] SIG Qnty Indications Order ing Provider Date Xblpjygr1la Tablets Take 1/2 Tab Every Morning, 1/2 Tab Afternoon, 1 Tab Bedtime as Needed Unknown Quetiapine Rajxaont74mb Tablets Take 1 Tablet AT Bedtime, 1/2-1 Daily as Needed For Obsessional Thinking Unknown Pyhebdrdgju482pe Tablets Take One Tablet By Mouth Every Morning Unknown Bupropion Hydrochloride ER (XL)150mg Tablets ER 24HR Take 1 Tablet By Mouth Every Day Unknown Amlodipine Vlhndzet91hw Tablets Take 1 Tablet By Mouth Every Day Tami Francis M.D. Ynnyypmmyb22fn Tablets Take 1 Tablet By Mouth Every Day Unknown Vitamin H0921ms Tablets 1 by mouth every day Unknown Calcium 8265529(600Ca) mg Tablets 1 by mouth twice a day Unknown Xdxigl47wl Tablets Unknown 0 Vital Signs Date Vital [...] Specimen not received at refrigerated temperature. TEST: [id number] Thyrotropin Receptor Ab, Serum Panel: [id number] Medical Devices Description No Information Available Encounters [...]
[2024-12-02] MEDS: Scopolamine 1.5 MG PATCH.TD.3 EAR-BEHIND (08:30)
[2024-12-02 08:57] VITALS: BP 163/73; PULSE 68; RESP 16; TEMP 37.2; O2SAT 97; BMI 21.2
[2024-12-02 09:03] VITALS: BMI 21.2
--- NOTE | 2024-12-02 09:06 | HO.ANESPROP2 ---
[facility] Active Problems Active Problems: All Active Problems Pre-op evaluation (Acute) Thyroid nodule (Acute) Major depressive disorder in partial remission (Acute) Delirium in remission (Acute) Major depressive disorder, recurrent, severe with psychotic features (Acute) Footdrop (Acute) Major depressive disorder, recurrent severe without psychotic features (Acute) Personality disorder (Acute) Organic catatonia (Acute) Abnormal EKG (Acute) Odynophagia (Acute) Paranoia (Acute) Dysphagia (Acute) Serotonin syndrome (Acute) Ataxia (Acute) Tremors of nervous system (Acute) Major depression in full remission (Acute) Memory deficit (Acute) ADHD (attention deficit hyperactivity disorder) (Acute) ZAC (generalized anxiety disorder) (Acute) Depression (Acute) Acute bacterial conjunctivitis of both eyes (Acute) Hypercalcemia (Acute) Hypothyroidism (Acute) Leukocytosis (Acute) Hypertension (Chronic) Past Medical History Medical History Pre-op evaluation Urinary tract infection Depression Hypothyroidism ZAC (generalized anxiety disorder) Hypertension ADHD (attention deficit hyperactivity disorder) Functional capacity: independent ambulation Patient : No Family History Family History Other No pertinent family history Family history of problems with anesthesia: No Surgical History Surgical History H/O thumb surgery H/O cone biopsy of cervix History of Problems with Anesthesia: No Social History Social History Household Members: Spouse Household Members Other:: And two cats. Housing: House Do you presently have visiting nurse or other home services: No Unable to assess alcohol history related to: Unknown Alcohol intake: never Patient Tobacco Use Status: Never used Tobacco Tobacco use type: Cigarette Years Smoked: 20 e-Cigarette/Vaping Use: Never Used Second Hand Smoke Exposure: No Substance Use Type: Former Substance User and Marijuana Advance Directives: No Advance Directives Information Provided: Yes service: No Sexual orientation: Straight/Heterosexual Meds Allergies Allergy/AdvReac Type Severity Reaction Status Date / Time No Known Allergies Allergy Verified 10/28/24 07:13 Home Medications ?Medication ?Instructions ?Recorded ?Confirmed ?Last Taken ?Type fluticasone propionate 50 1 spray intranasal BID 08/27/23 11/03/24 Unknown History mcg/actuation nasal spray,suspension amlodipine 5 mg tablet 10 mg PO DAILY 07/12/24 11/03/24 Unknown History famotidine 40 mg tablet 40 mg PO DAILY 11/03/24 11/03/24 Unknown History Exam Height,Weight and Vital Signs: Height 5 ft 1 in Weight 50.802 kg Last Vital Signs Temp 98.9 F 12/02/24 08:57 Pulse 68 12/02/24 08:57 Resp 16 12/02/24 08:57 BP 163/73 H 12/02/24 08:57 Pulse Ox 97 12/02/24 08:57 O2 Del Method Room Air 12/02/24 08:57 Airway Mallampati Class: II TM Dist: >3cm Neck ROM: Full Heart: RRR Lungs: CYA Assessment and Plan Final Anesthetic Review Family History of Problems with Anesthesia: No History of Problems with Anesthesia: No NPO: Yes ASA Class: III Final Preanesthetic Review: Meds/Allgs Chart Reviewed, Consent Obtained/Reviewed and Anes Risks/Benef Reviewed Patient Risk: Low Procedure Risk: Low Anesthetic Plan Anesthetic Plan: GA Disposition: Standard PACU
[2024-12-02] MEDS: Lactated Ringers 1,000 ML 100 ML IVCONT (09:21)
--- NOTE | 2024-12-02 09:23 | P.HPSUR_ITS ---
Pre-Procedural Eval Section A - 24 Hr Update-Section A only Date of Service: 12/02/24 The patient is an INPATIENT: No Changes since office visit: Yes Cold of Flu in the past 2 weeks, Yes New Medical Problems, Yes Changes in Medication and Yes Patient answered all questions The patient has been examined within 24 hours of the surgical procedure. The History & Physical has been completed within 30 days and I have reviewed it.: No Section B - Complete if H&P > 30 days Chief Complaint: Major depressive disorder, recurrent, severe with Details of Present Illness: Stable Relevant Family History (Specify if Yes): No Relevant Social History: None Present Medications: see Short Stay Collaborative assessment Medical History: No relevant PMH History of Previous Operations: No relevant previous surgery Allergies: Allergies Allergy/AdvReac Type Severity Reaction Status Date / Time No Known Allergies Allergy Verified 10/28/24 07:13 Review of Systems Sugical H&P ROS: Negative: Constitution, Cardiovascular, Respiratory, Neurological, Psychiatric, Hem-Onc, Allergic/Immunologic, Gastrointestinal, Genitourinary, Musculoskeletal, Integumentary, Endocrine and Eyes/E ars/Nose/Throat Exam Surgical H&P Exam: Normal: HEENT, Normal: Heart, Normal: Lungs, Normal: Extremities, Normal: Abdomen, Normal: Skin and Normal: Neurological Plan Diagnosis/Plan: Unchanged I have reviewed the history and physical and performed a pertinent physical examination on my patient. No changes have occurred unless specified. Time Spent With Patient Time: Total time managing care of this patient today __20__ minutes.
--- NOTE | 2024-12-02 09:34 | HO.ECTPROC ---
ECT Procedure Note Diagnosis/Treatment Date of Service: 12/02/24 Diagnosis: Bipolar disorder Previous ECT Date: 10/28/24 Treatment: Maintenance Interval Clinical Notes: The patient reported euthymia, no changes on her treatment, denies side effects with the previous ECT. ECT done as usual, no complications, woke up well. Time: Total time managing care of this patient today _20___ minutes. ECT Settings Device: THYMATRON DGx Electrode Placement: Bifrontal Program/Pulse Width: 0.50 Energy Percent: 100 Seizure Duration By EEG (in seconds): 0 (seizure activity noted until 18s) By Motor Observation (in seconds): 15 Medications Administration General Anesthetic: Methohexital (70) Muscle Relaxant: Succinylcholine (80) Ancillary Medications Anti-emetics: Zofran - Pre ECT Airway Management Airway Management: Bag Mask Ventilation Treatment Recommendations No Changes Recommended: No change Pt Tolerated Procedure w/o Issue: Yes
[2024-12-02 09:39] VITALS: BP 157/79; PULSE 82; RESP 16; TEMP 36.8; O2SAT 100
[2024-12-02 09:44] VITALS: BP 157/71; PULSE 75; RESP 16; O2SAT 98
[2024-12-02 09:49] VITALS: BP 151/74; PULSE 73; RESP 16; O2SAT 98
[2024-12-02 09:55] VITALS: BP 151/66; PULSE 76; RESP 16; O2SAT 99
[2024-12-02 10:10] VITALS: BP 151/68; PULSE 76; RESP 16; TEMP 36.7; O2SAT 99
== END 2024-12-02 10:36 | disposition home or self-care (01) ==
PROVIDERS: PCP Internal Medicine; Visit Provider Psychiatry & Neurology Psychiatry
PROC: (CPT 90870; principal; 2024-12-02 10:00)
DX: F31.9 Bipolar disorder, unspecified (principal); F41.1 Generalized anxiety disorder; F90.9 Attention-deficit hyperactivity disorder, unspecified type; I10 Essential (primary) hypertension; E04.1 Nontoxic single thyroid nodule; Z79.899 Other long term (current) drug therapy; Z79.51 Long term (current) use of inhaled steroids
CPT/HCPCS: 90870; J0330; J2405

== ENCOUNTER → 2024-12-02 07:39 | Outpatient (BNV) | payer MEDICARE, SELFPAY | PROVIDERS: PCP Internal Medicine; Visit Provider Psychiatry & Neurology Psychiatry | DX: F33.3 Major depressive disorder, recurrent, severe with psychotic symptoms (principal) | CPT/HCPCS: 90870 ==

== ENCOUNTER → 2024-12-16 11:09 | Outpatient (BNVA) | payer MEDICARE, SELFPAY | PROVIDERS: PCP Internal Medicine; Visit Provider Psychiatry & Neurology Psychiatry ==

== ENCOUNTER 2024-12-23 05:45 | Day surgery (SDC) | payer MEDICARE, SELFPAY ==
[2024-12-23] VITALS (8 sets, daily range): BP systolic 118–169; BP diastolic 68–93; PULSE 81–90; RESP 16–20; TEMP 36.4–36.6; O2SAT 93–97; BMI 21.2
--- OUTSIDE RECORDS SUMMARY | 2024-12-23 05:47 | XMS_ITS | Encounter Summary ---
Author Organization [facility] Address [address] [place] [id number] Care Team Providers Care Seed Expert Name Role Phone Tami Francis MD Primary Care Provider [phone] Reason for Referral * Diagnostic Imaging (Routine) - Authorized Specialty Diagnoses / Procedures Referred By Contac t Referred To Contact Diagnoses Neck swelling Dysphagia, unspecified type Procedures CT Soft tissue neck w/contrast Lyndon Aquino MD [facility] [address] [place] [id number] [facility] Referral ID Status Reason Start Date Expiration Date V isits Requested Visits Authorized [id number] Authorized 11/30/2024 12/01/2025 1 1 Reason for Visit * Reason Comments Oral Pain Encounter Details Date Type Department Care Team (Late st Contact Info) Description 11/30/2024 2:15 PM EST Office Visit [facility] [address] [address] Lyndon Aquino MD [address] [place] [phone] Neck swelling (Primary Dx); Dysphagia, unspecified type Social History Tobacco Use Types Packs/Day Years Used Date Smoking Tobacco: Former Cigarettes Q uit: 01/21/2001 Passive Smoke Exposure: Past Tobacco Cessation:Counseling Given: Not Answered Alcohol Use Standard Drinks/Week Comments Not Currently 0 (1 standard drink = 0.6 oz pur e alcohol) AUDIT-C Answer Date Recorded Q1: How often do you have a drink containing alcohol? Never 01/23/2023 Q2: How many drinks containi ng alcohol do you have on a typical day when you are drinking? Patient does not drink Q3: How often do you have si x or more drinks on one occasion? Never 01/23/2023 PHQ-2 Answer Date Recorded PHQ-2 Total Score 6 01/23/2023 Sex and Gender Information Value Date Recorded Sex Assigned at Female 01/23/2023 1:23 PM EST Gender Identity Female 01/23/2023 1:23 PM EST Sexual Orientation Heterosexual (straight) 01/23 1:23 PM EST documented as of this encounter Last Filed Vital Signs Vital Sign Reading Time Taken Comments Blood Pressure - - Pulse - - Temperature - - Respiratory Rate - - Oxygen Saturation - - Inhaled Oxygen Concentration - - Weight 52.6 kg (116 lb) 11/30/2024 2:18 PM EST Height 157.5 cm (5' 2 ) 11/30/2024 2:18 PM EST Body Mass Index 21.22 11/30/2024 2:18 PM EST documented in this encounter Progress Notes * Lyndon Aquino MD - 11/30/2024 2:15 PM EST Images from the original note were not included. [address] [facility] [id number] Loc: [phone] Encounter Date: 11/30/2024 Chief Complaint Patient presents with Oral Pain 1. Neck swelling - CT Soft tissue neck w/contrast; Future - CT Soft tissue neck w/contrast 2. Dysphagia, unspecified type - CT Soft tissue neck w/contrast; Future - CT Soft tissue neck w/contrast ASSESSMENT AND PLAN Miriam is a 74-year-old female with chronic throat discomfort and excessive mucus production. She initially improved with famotidine but reports that symptoms have returned. No evidence of infectionor abnormal findings on the current physical examination. Possible hypersensitivity of the throat nerves contributing to her symptoms. Further evaluation with imaging is warranted to rule out deeper sinus issues. - Switch to clear nasal spray with xylitol to help with postnasal drip symptoms. - Arrange imaging of the neck and sinuses through [facility] in [place]. - Advise Miriam on several laryngeal hygiene strategies. - Follow up with results from imaging in approximately 2-3 weeks. HISTORY OF PRESENT ILLNESS Miriam reports chronic throat discomfort and excessive mucus production. She noticed an improvement with famotidine initially, but symptoms have since returned. She describes the symptoms as almost constant and significantly bothersome, particularly on the right-hand side. She uses saline nasal spray but has difficulty following the instructions for its use. Her observed redness in her tonsils, but she has no significant new symptoms such as high fever or difficulty breathing. PHYSICAL EXAM The patient was in no acute distress and breathing comfortably on exam. Examination of the ears, nose, oral cavity, oropharynx, and neck was completed and found to be within normal limits with the following notable exceptions and findings highlighted here: - No masses, polyps, or mucosal lesions observed on laryngoscopy one month ago. - No evidence of infection. - Physical examination today reveals no abnormalities. DIAGNOSTIC TESTING REVIEWED Miriam underwent a flexible fiberoptic laryngoscopy one month ago, which demonstrated no masses, polyps, or mucosal lesions. There was no evidence of infection at that time. We discussed the option of further imaging to evaluate the deeper structures of the sinuses. This imaging will be arranged through [facility] in [place]. PAST MEDICAL HISTORY Past Medical History: Diagnosis Date Depression Hypertension Sinusitis, chronic Vertigo Past Surgical History: Procedure Laterality Date ORTHOPEDIC SURGERY Family History Problem Relation Age of Onset Anxiety disorder Mother Depression Mother Social History Tobacco Use Smoking status: Former Current packs/day: 0.00 Types: Cigarettes Quit date: 01/21/2001 Years since quittin.8 Passive exposure: Past Vaping Use Vaping status: Never Used Substance Use Topics Alcohol use: Not Currently Drug use: Not Currently Types: Marijuana MEDICATIONS Current Outpatient Medications: amLODIPine (NORVASC) 10 MG tablet, Take 1 tablet (10 mg total) by mouth daily. Do not start before January 30, 2023., Disp: 30 tablet, Rfl: 0 Armodafinil (NUVIGIL) 150 MG tablet, , Disp: , Rfl: ascorbic acid (VITAMIN C) 1000 MG tablet, Take by mouth., Disp: , Rfl: buPROPion (WELLBUTRIN XL) 150 MG 24 hr tablet, , Disp: , Rfl: cariprazine (VRAYLAR) 1.5 MG caspule, Take 1 capsule (1.5 mg total) by mouth daily. Do not start before January 30, 2023., Disp: 30 capsule, Rfl: 0 diazepam (VALIUM) 5 MG tablet, , Disp: , Rfl: famotidine (PEPCID) 40 MG tablet, Take 1 tablet (40 mg total) by mouth nightly., Disp: 30 tablet, Rfl: 3 FLUoxetine (PROzac) 20 MG capsule, Take 3 capsules (60 mg total) by mouth daily. Do not start before January 30, 2023., Disp: 90 capsule, Rfl: 0 guaiFENesin (MUCINEX) 600 MG 12 hr tablet, Take 1 tablet (600 mg total) by mouth 2 (two) times a day., Disp: 60 tablet, Rfl: 0 lithium carbonate 300 MG IR capsule, Take 1 capsule (300 mg total) by mouth nightly., Disp: 30 capsule, Rfl: 0 LORazepam (ATIVAN) 1 MG tablet, Take 1 tablet (1 mg total) by mouth nightly., Disp: 30 tablet, Rfl:0 nortriptyline (PAMELOR) 10 MG capsule, Take 3 capsules (30 mg total) by mouth nightly., Disp: 90 capsule, Rfl: 0 nystatin (MYCOSTATIN) 695702 UNIT/ML suspension, Take 5 mL (500,000 Units total) by mouth 4 (four) times a day., Disp: 100 mL, Rfl: 0 PANTOprazole (PROTONIX) 40 MG EC tablet, , Disp: , Rfl: propranolol (INDERAL) 20 MG tablet, Take 1 tablet (20 mg total) by mouth every 8 (eight) hours around the clock., Disp: 90 tablet, Rfl: 0 QUEtiapine (SEROquel) 25 MG tablet, , Disp: , Rfl: vitamin E 400 UNIT capsule, Take 1 capsule by mouth daily., Disp: , Rfl: ALLERGIES Allergies Allergen Reactions Erythromycin Unknown/Patient and Family Unable to Define Propoxyphene Unknown/Patient and Family Unable to Define VISIT ORDERS 1. Neck swelling - CT Soft tissue neck w/contrast; Future - CT Soft tissue neck w/contrast 2. Dysphagia, unspecified type - CT Soft tissue neck w/contrast; Future - CT Soft tissue neck w/contrast Lyndon Aquino MD documented in this encounter Plan of Treatment Scheduled Orders Name Type Priority Associated Diagnoses Orde r Schedule CT Soft tissue neck w/contrast Imaging Routine Neck swelling Dysphagia, unspecified type Expected: 11/30/2024, Expires: 11/30/2025 documented as of this encounter Visit Diagnoses Diagnosis Neck swelling- Primary Swelling, mass, or lump in head and neck Dysphagia, unspecified type documented in this encounter Care Teams Seed Expert Relationship Specialty Start Date End Date Tami Francis MD [address] [address] PCP - General Internal Medicine 01/23/23 documented as of this encounter
--- OUTSIDE RECORDS SUMMARY | 2024-12-23 05:47 | XMS_ITS | Clinical Summary ---
Author Organization [facility] Address [address] [place] [address] Care Team Providers Care Carton Marker Machine Name Role Phone Pcp, No Primary Care Provider Unavailabl e Allergies No known active allergies Medications amLODIPine-ator vastatin (CADUET) 10-10 MG per tablet Take 1 tablet by mouth daily Active FLUoxetine (PROzac) 40 MG capsule Take 40 mg by mouth daily Active buPROPion (ZYBAN) 150 MG 12 hr tablet Take 150 mg by mouth 2 (two) times a day Active lithium carbonate (LITHOBID) 300 MG extended release tablet Take 300 mg by mouth 2 (two) times a day Active TraZODone & Diet Manage Prod (TRAZAMINE ORAL) Take by mouth Active traZODone (DESYREL) 50 MG tablet Take 50 mg by mouth at bedtime Active methylphenidate (RITALIN) 10 MG tablet Take 10 mg by mouth 2 (two) times a day Active diazePAM (VALIUM) 2 MG tablet Take 2 mg by mouth every 6 (six) hours as needed for anxiety Active Family History Medical History Relation Name Comments No Known Problems Father Hypertension Mother Relation Name Status Comments Father Mother Social History Tobacco Use Types Packs/Day Years Used Date Smoking Tobacco: Never Smokeless Tobacco: Never Alcohol Use Standard Drinks/Week Comments Never 0 (1 standard drink = 0.6 oz pur e alcohol) Comments No Sex and Gender Information Value Date Recorded Sex Assigned at Not on file Legal Sex Female 10:41 AM EDT Gender Identity Not on file Sexual Orientation Not on file Last Filed Vital Signs Vital Sign Reading Time Taken Comments Blood Pressure 157/84 07/31/2019 12:13 PM EDT Pt. states she has white coat syndrome Pulse 70 07/31/2019 12:13 PM EDT Temperature 36.6 ??C (97.8 ??F) 07/31/2019 1 2:13 PM EDT Respiratory Rate 18 07/31/2019 12:1 3 PM EDT Oxygen Saturation 97% 07/31/2019 12: 13 PM EDT Inhaled Oxygen Concentration - - Weight 50.8 kg (112 lb) 07/31/2019 12:1 3 PM EDT Height 157.5 cm (5' 2 ) 07/31/2019 12:1 3 PM EDT Body Mass Index 20.49 07/31/2019 12:13 PM EDT Plan of Treatment Not on file Insurance MEDICARE PART A&B [facility] MCR SUPPLEMENT Care Teams Carton Marker Machine Relationship Specialty [place] [id number] PCP - General 07/31/19
--- OUTSIDE RECORDS SUMMARY | 2024-12-23 05:47 | XMS_ITS | Encounter Summary ---
Author Organization [facility] Address [address] [place] [address] Care Team Providers Care Cutlery Grinder Name Role Phone Tami Francis MD Primary Care Provider [phone] Encounter Details Date Type Department Care Team ([facility] st Contact Info) Description 11/29/2024 Telephone [facility] [address], [place] [address] Lyndon Aquino MD [address] [place] [address] Social History Tobacco Use Types Packs/Day Years Used Date Smoking Tobacco: Former Cigarettes Q uit: 01/21/2001 Passive Smoke Exposure: Past Alcohol Use Standard Drinks/Week Comments Not Currently [...] PM EST documented as of this encounter Miscellaneous Notes * Telephone Encounter - Rossy Linton MA - 11/29/2024 2:05 PM EST Called to patient, added in for tomorrow. * Telephone Encounter - Rossy Linton MA - 11/29/2024 10:36 AM EST Patient calls in and LM stating that her condition is much worse that she has thick white mucus and phlegm draining down the back of her throaty constantly. That she is very concerned wondering if there is something else she can take in addition to the famotidine. CB# [phone] documented in this encounter Plan of Treatment Not on file documented as of this encounter Visit Diagnoses Not on filedocumented in this encounter Care Teams Cutlery Grinder Relationship Specialty Start Date End Date Tami Francis MD [address] [place] [address] PCP - General Internal Medicine 01/23/23 documented as of this encounter
--- OUTSIDE RECORDS SUMMARY | 2024-12-23 05:47 | XMS_ITS | Encounter Summary ---
Author Organization [facility] Address [address] [place] [address] Care Team Providers Care Shipyard Helper Name Role Phone Tami Francis MD Primary Care Provider [phone] Encounter Details Date Type Department Care Team (Late st Contact Info) Description 11/29/2024 Documentation [facility] [address], [place] [address] Lyndon Aquino MD [address] [place] [address] Social History Tobacco Use Types Packs/Day Years [...] PM EST documented as of this encounter Progress Notes * Rossy Linton MA - 11/29/2024 10:29 AM EST error documented in this encounter Plan of Treatment Not on file documented as of this encounter Visit Diagnoses Not on filedocumented in this encounter Care Teams Shipyard Helper Relationship Specialty Start Date End Date Tami Francis MD [address] [place] [address] PCP - General Internal Medicine 01/23/23 documented as of this encounter
--- OUTSIDE RECORDS SUMMARY | 2024-12-23 05:48 | XMS_ITS | Patient Health Record ---
Author Organization [facility] Address [address] [place] [address] Care Team Providers Care Family Support Coordinator Name Role Phone YASMANY ARCE M.D. Primary Care Provider Valorie Campos Unavailable [phone] Allergies Allergen (clinical drug ingredient) Drug/Non Drug Allergy documented on EMR Reaction Allergy Type Onset Date Status DARVON Unknown Drug Allergy Active erythromycin ERYTHROMYCIN Unknown Drug Allergy A ctive Results Component Value Reference Range Notes [id number] IGP No Culture 30 Plus Reviewed date:07/01/2024 08:28:45 AM Interpretation: Performing Lab:[facility] [place], [address], [address], [place], Phone - [phone], Director - [facility] Notes/Report: Clinical Information:Vaginal/Cervical, LMP: Men o [id number] Dates / Results....03/16/23 ASCUS, Neg HPV Other..............Post Menopausal No. of containers..01 ThinPrep Vial DIAGNOSIS: NEGATIVE FOR IN TRAEPITHELIAL LESION OR MALIGNANCY. Specimen adequacy: Satisfact ory for evaluation. No endocervical component is identified. Clinician provided ICD10: Z0 1.419 Performed by: Josue white, Churn Operator Margarine ([facility]) . . Note: The Pap smear is a screening test designed to aid in the detection of premalignant and malignant conditions of the uterine cervix. It is not a diagnostic procedure and should not be used as the sole means of detecting cervical cancer. Both false-positive and false-negative reports do occur. . Test Methodology: This liquid based ThinPrep(R) pap test was screened with the use of an image guided system. HPV Aptima Negative Negative This nucleic acid amplification test detects fourteen high-risk HPV types (16,18,31,33,35,39,45,51,52,56,58 ,59,66,68) without differentiation. HPV Genotype Reflex Criteria not met, HPV Genotype not performed. PDF Report Reviewed date:07/01/2024 08:28:29 AM Interpretation: Performing Lab:[facility], [address], [address], [place], Phone - [phone], Director - [facility] Notes/Report: Clinical Information:Vaginal/Cervical, LMP: Men o [id number] Dates / Results....03/16/23 ASCUS, Neg HPV Other..............Post Menopausal No. of containers..01 ThinPrep Vial Reason For Referral No Information Medications Medication SIG (Take, Route, Frequency, Duration) Notes Start Date End Date Status Yuvafem 10 MCG 1 tablet Vaginal TWICE A WEEK for 90 days 06/27/2024 Active Trintellix 10 MG TAKE 1 TABLET BY MOUTH EVERY DAY Oral for 90 Days Active Multivitamins 1 ORAL daily for -3 [facility] 01/20/2012 Active amLODIPine Besylate 5MG 1 ORAL daily for -3 [facility] NORVASC 0 06/28/2012 Active Yuvafem 10 MCG 1 tablet Vaginal TWICE A WEEK for 90 days 03/16/2023 Active Losartan Potassium 50 MG Oral for 90 Days Active Vitamin E 400 UNIT 1 capsule Orally Once a day for 30 day(s) Active Calcium-D 600MG 1 ORAL daily for -3 [facility] 01/20/2012 Active Armodafinil 150 MG TAKE ONE TABLET BY MOUTH EVERY MORNING Oral for 30 Days Active Vitamin C 500MG 2 grams ORAL daily [facility] 04/24/2014 Active diazePAM 5 MG Oral for 30 Days Active Social History Tobacco Use: Social History Observation Description Date Details (start date - stop date) Former Smoker NA - NA AUDIT-C (Standard) Question Answer Notes Did you have a drink containing alcohol in the p ast year? No Points 0 Interpretation Negative Tobacco Control (Standard) Question Answer Notes Tobacco use: Former smoker How long has it been since you last smoked? 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 confirmed Problem Essential hypertension (06473999) Unspecified essential hypertension (401.9) Active confirmed Problem Menopausal symptom (97747294) Symptomatic menopausal or female climacteric states (627.2) Active confirmed Problem Disorder of bone and articular cartilage (disorder) (002060628) Disorder of bone and cartilage, unspecified (733.90) Active confirmed Problem Postmenopausal atrophic vaginitis (29896863) Postmenopausal atrophic vaginitis (N95.2) Active confirmed Problem Age-related osteoporosis (948185350) Age-related osteoporosis without current pathological fracture (M81.0) Active confirmed Problem History of dysplasia of cervix (035240575) Personal history of cervical dysplasia (Z87.410) Active confirmed Problem General examination of patient (165241076) Routine general medical examination at health care facility (V70.0) Active confirmed Diag Problem Gynecological examination normal (916881280702231) Routine gynecological examination (V72.31) Active confirmed Problem Screening for malignant neoplasm of colon (322416836) Special screening for malignant neoplasms, colon (V76.51) Active confirmed Major Vital Signs Temperature 97.4 degrees Fahrenheit 06/27/2024 Blood pressure diastolic 70 mm Hg 06/27/2024 Height 5 ft 1.3 in in 06/27/2024 Blood pressure systolic 132 mm Hg 06/27/2024 Weight 114 lbs 06/27/2024 BMI 21.33 kg/m2 06/27/2024 Encounters Encounter Location Date Provider Diagnosis [facility] [address] [place] [address] 06/27/2024 Valorie Luu Encounter for gynecological examination (general) (routine) without abnormal findings Z01.419 ; Encounter for screening mammogram for malignant neoplasm of breast Z12.31 ; Age-related osteoporosis without current pathological fracture M81.0 ; Postmenopausal atrophic vaginitis N95.2 and Personal history of cervical dysplasia Z87.410 [facility] [address] [place] [address] 04/29/2024 Valorie Luu Postmenopausal atrophic vaginitis N95.2 Assessments Encounter Date Diagnosis (ICD Code) Assessment Notes Treatment Notes Treatment Clinical Notes Section Notes 04/29/2024 Postmenopausal atrophic vaginitis (ICD-10 - N95.2) 06/27/2024 Encounter for gynecological examination (general) (routine) without abnormal findings (ICD-10 - Z01.419) PAP TEST WITH HPV TYPING WAS OBTAINED. 06/27/2024 Encounter for screening mammogram for malignant neoplasm of breast (ICD-10 - Z12.31) REGULAR MAMMOGRAMS AND SBE'S WERE RECOMMENDED. 06/27/2024 Age-related osteoporosis without current pathological fracture (ICD-10 - M81.0) DISCUSSED OSTEOPOROSIS AND ITS IMPACT ON HER HEALTH. REPEAT BMD THIS YEAR. ADEQUATE CALCIUM AND VIT D. WEIGHT BEARING EXERCISES. OSTEO PRECAUTIONS. 06/27/2024 Postmenopausal atrophic vaginitis (ICD-10 - N95.2) CONTINUE YUVAFEM TWICE WEEKLY. 06/27/2024 Personal history of cervical dysplasia (ICD-10 - Z87.410) DISCUSSED PREVIOUS MARGA 3 AND SUBSEQUENTLY NEGATIVE PAP TESTS WITH NEG HPV. REPEAT PAP TEST WITH HPV TYPING WAS OBTAINED TODAY. Plan Of Treatment Pending Test Test Name Order Date MAMMOGRAM, SCREENING 06/28/2015 MAMMOGRAM, SCREENING 03/14/2022 MAMMOGRAM, SCREENING 03/16/2023 MAMMOGRAM, SCREENING 06/27/2024 25OH VITAMIN D 07/17/2022 COMPREHENSIVE METABOLIC PANEL 07/17/2022 N-TELOPEPTIDE CROSS 07/17/2022 PTH, INTACT 07/17/2022 THIN PREP,HPV,LILLY IF HPV+/CYT- (>29YR)( SCRN) 12/01/2016 TSH 07/17/2022 BONE DENSITY 05/30/2021 BONE DENSITY 03/14/2022 BONE DENSITY 06/27/2024 BONE DENSITY 03/11/2021 MM Digital Mammo Screening 03/14/2022 MM Digital Mammo Screening 03/11/2021 MM Digital Mammo Screening 06/27/2024 MM Digital Mammo Screening 03/16/2023 MM Digital Mammo Screening 05/30/2021 Next Appt Details Provider Name:Valorie montesinos, 07/03/2025 02:20:00 PM, [address], [address], [place], [address], Insurance Providers Payer Name Payer Address Payer Phone Subscriber Number Group Number Insured Name Patient Relationship to Insured Coverage Start Date Coverage End Date MEDICARE [address] MARY KANG [id number] [phone] [id number] TEDDY DENNISON Self - patient is the insured MEDEX [address] [place] [address] [id number] DENTON DENNISONH Self - patient is the insured Medical (General) History Medical History History ICD Code Personal history of cervical dysplasia Z 87.410 Postmenopausal atrophic vaginitis N95.2 Menopausal and female climacteric states N95.1 Essential (primary) hypertension I10 Bipolar disorder, current ep isode depressed, mild or moderate severity, unspecified F31.30 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
--- OUTSIDE RECORDS SUMMARY | 2024-12-23 05:48 | XMS_ITS ---
Author Organization [facility] [employer] [facility] Address [address] [facility] [address] [address] [place] [address] Care Team Providers Care Senior Gis Analyst Name Role Phone YASMANY ARCE M.D. Primary Care Provider Valorie Campos [phone] Allergies Allergen (clinical drug ingredient) Drug/Non Drug Allergy documented on EMR Reaction Allergy Type Onset Date Status DARVON Unknown Drug Allergy Active erythromycin ERYTHROMYCIN Unknown Drug Allergy A ctive REASON FOR VISIT HR MEDICARE PE Encounters Encounter Location Date Provider Diagnosis [facility] [employer] [address] [place] [address] 03/23/2024 Valorie Luu Plan Of Treatment Next Appt Details Provider Name:Valorie montesinos, 07/03/2025 02:20:00 PM, [address] [facility], [address], [place], [address], Progress Notes * DENTON DENNISONHDOB:[birth year] (74 yo F)Acc No.[id number]:03/23/2024 PROGRESS NOTES Patient:?CHARITY DENNISONORAH Appointment Provider:?Valorie montesinos M.D. :1950???Age:73 Y???Sex:Female D ate:03/23/2024 Address:[address] [place] [address], [facility] Pcp:YASMANY ARCE M.D. Subjective: * Chief Complaints: * ???1. HR MEDICARE PE. * Medical History:?Personal hi story of cervical dysplasia, Postmenopausal atrophic vaginitis, Menopausal and female climacteric states, Essential (primary) hypertension, Bipolar disorder, current episode depressed, mild or moderate severity, unspecified, Carcinoma in situ of endocervix, Disorder of bone density and structure, unspecified, Atypical squamous cells of undetermined significance on cytologic smear of cervix (ASC-US). 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 * OB History:?Total pregnancies?2.?Total living children?1.?NVD?1.? * Allergies:?DARVON: Allergy, ERYTHROMYCIN: Allergy. Objective: * Vitals:? Assessment: Plan: * Treatment: * Images: Billing Information: * Visit Code:? * Procedure Codes:? * Electronic signature of Joyce Luu MD on 12/23/2024 at 05:47 AM EST Sign off status: Pending * Appointment Provider:?Valorie Luu M.D. Date:?03/23/2024 Generated for Uri rogers/Charis/Abdelrahmansmitting on:?12/23/2024 05:47 AM EST
--- OUTSIDE RECORDS SUMMARY | 2024-12-23 05:48 | XMS_ITS ---
Author Organization [facility] [employer] Address [address] [address] Care Team Providers Care Issuing Operator Name Role Phone YASMANY ARCE M.D. Primary Care Provider Jose Luu Valorierios Osullivan [phone] REASON FOR VISIT RX REFILL Medications Medication SIG (Take, Route, Fr equency, Duration) Notes Start Date End Date Status Yuvafem 10 MCG 1 tablet Vaginal TWI CE A WEEK for 90 days 03/16/2023 Active Encounters Encounter Location Date Provider Diagnosis [facility] [address] [address] 04/29/2024 Valorie Luu Postmenopausal atrophic vaginitis N95.2 Assessments Encounter Date Diagnosis (ICD Code) Assessment Notes Treatment Notes Treatment Clinical Notes Section Notes 04/29/2024 Postmenopausal atrophic vaginitis (ICD-10 - N95.2) Plan Of Treatment Medication Medication Name Sig Start Date Stop Date Notes Yuvafem 10 MCG 1 tablet Vaginal TWICE A WEEK for 90 days 0 03/16/2023 Next Appt Details Provider Name:Valorie Eleonora montesinos, 07/03/2025 02:20:00 PM, [address] [facility], [address], [place], [address], Progress Notes * DENTON DENNISONHDOB:[birth year] (73 yo F)Acc No.[id number]:04/29/2024 Patient:?DENTON DENNISONH :1950???Age:73 Y???Sex:Female Address:[address] [place] [address], , [place], [address] * Refills? Refill Yuvafem Tablet, 10 MCG, Vaginal, 24 Tablet, 1 tablet, TWICE A WEEK, 90 days, Refills=0 * true * Date:? Generated for Uri rogers/Charis/Aritting on:?12/23/2024 05:47 AM EST
--- OUTSIDE RECORDS SUMMARY | 2024-12-23 05:48 | XMS_ITS ---
Author Organization [facility] [facility] Address [address] [place] [address] Care Team Providers Care Air Brush Operator Name Role Phone YASMANY ARCE M.D. Primary Care Provider Valorie Campos [phone] Allergies Allergen (clinical drug ingredient) Drug/Non Drug Allergy documented on EMR Reaction Allergy Type Onset Date Status DARVON Unknown Drug Allergy Active erythromycin ERYTHROMYCIN Unknown Drug Allergy A ctive Results Component Value Reference Range Notes [id number] IGP No Culture 30 Plus Reviewed date:07/01/2024 08:28:45 AM Interpretation: Performing Lab:[facility] [place], [address], [address], [place], Phone - [phone], Director - [facility] Notes/Report: Clinical Information:Vaginal/Cervical, LMP: Men o [id number] Dates / Results....03/16/23 ASCUS, Neg HPV Other..............Post Menopausal No. of containers..01 ThinPrep Vial DIAGNOSIS: NEGATIVE FOR IN TRAEPITHELIAL LESION OR MALIGNANCY. Specimen adequacy: Satisfact ory for evaluation. No endocervical component is identified. Clinician provided ICD10: Z0 1.419 Performed by: Josue white Residential Real Estate Agent ([facility]) . . Note: The Pap smear is [...] Report Reviewed date:07/01/2024 08:28:29 AM Interpretation: Performing Lab:[facility], [address], [address], [place], Phone - [phone], Director - [facility] Notes/Report: Clinical Information:Vaginal/Cervical, LMP: Men o [id number] Dates / Results....03/16/23 ASCUS, Neg HPV Other..............Post Menopausal No. 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+ Medications Medication SIG (Take, Route, Frequency, Duration) Notes Start Date End Date Status Yuvafem 10 MCG 1 tablet Vaginal TWICE A WEEK for 90 days 06/27/2024 Active Yuvafem 10 MCG 1 tablet Vaginal TWICE A WEEK for 90 days 03/16/2023 Active Losartan Potassium 50 MG Oral for 90 Days Active Calcium-D 600MG 1 ORAL daily for -3 [facility] 01/20/2012 Active Multivitamins 1 ORAL daily for -3 [facility] 01/20/2012 Active Vitamin E 400 UNIT 1 capsule Orally Once a day for 30 day(s) Active Armodafinil 150 MG TAKE ONE TABLET BY MOUTH EVERY MORNING Oral for 30 Days Active Vitamin C 500MG 2 grams ORAL daily [facility] 04/24/2014 Active diazePAM 5 MG Oral for 30 Days Active Trintellix 10 MG TAKE 1 TABLET BY MOUTH EVERY DAY Oral for 90 Days Active amLODIPine Besylate 5MG 1 ORAL daily for -3 [facility] NORVASC 0 06/28/2012 Active Social History Tobacco Use: Social History Observation Description Date Details (start date - stop date) Former Smoker NA - NA AUDIT-C (Standard) Question Answer Notes Did you have a drink containing alcohol in the p ast year? No Points 0 Interpretation Negative Tobacco Control (Standard) Question Answer Notes Tobacco use: Former smoker How long has it been since you last smoked? Baldomero ter than 10 years Vital Signs Temperature 97.4 degrees Fahrenheit 06/27/20 24 Blood pressure systolic 132 mm Hg 06/27/20 24 Blood pressure diastolic 70 mm Hg 024 Height 5 ft 1.3 in in 06/27/2024 Weight 114 lbs 06/27/2024 BMI 21.33 kg/m2 06/27/2024 Encounters Encounter Location Date Provider Diagnosis [address] [place] [address] 06/27/2024 Valorie Luu Encounter for gynecological examination (general) (routine) without abnormal findings Z01.419 ; Encounter for screening mammogram for malignant neoplasm of breast Z12.31 ; Age-related osteoporosis without current pathological fracture M81.0 ; Postmenopausal atrophic vaginitis N95.2 and Personal history of cervical dysplasia Z87.410 Assessments Encounter Date Diagnosis (ICD Code) Assessment Notes Treatment Notes Treatment Clinical Notes Section Notes 06/27/2024 Encounter for gynecological examination (general) (routine) [...] TYPING WAS OBTAINED TODAY. Plan Of Treatment Medication Medication Name Sig Start Date Stop Date Notes Yuvafem 10 MCG 1 tablet Vaginal TWICE A WEEK for 90 days 0 06/27/2024 Treatment Notes Assessment Notes Encounter for gynecological examination (general) (routine) without abnormal findings PAP TEST WITH HPV TYPING WAS OBTAINED. Encounter for screening mamm ogram for malignant neoplasm of breast REGULAR MAMMOGRAMS AND SBE'S WERE RECOMMENDED. Age-related osteoporosis wit hout current pathological fracture DISCUSSED OSTEOPOROSIS AND ITS IMPACT ON HER HEALTH. REPEAT BMD THIS YEAR. ADEQUATE CALCIUM AND VIT D. WEIGHT BEARING EXERCISES. OSTEO PRECAUTIONS. Postmenopausal atrophic vaginitis CONTIN UE YUVAFEM TWICE WEEKLY. Personal history of cervical dysplasia DISCUSSED PREVIOUS MARGA 3 AND SUBSEQUENTLY NEGATIVE PAP TESTS WITH NEG HPV. REPEAT PAP TEST WITH HPV TYPING WAS OBTAINED TODAY. Pending Test Test Name Order Date MAMMOGRAM, SCREENING 06/27/2024 BONE DENSITY 06/27/2024 MM Digital Mammo Screening 06/27/2024 Next Appt Details Follow Up: 1 Year, Reason: Provider Name:Valorie montesinos, 07/03/2025 02:20:00 PM, [address] [facility], [address], [place], [address], Progress Notes * DENTON DENNISONHDOB:[birth year] (73 yo F)Acc No.[id number]:06/27/2024 PROGRESS NOTES Patient:?TEDDY DENNISON Appointment Provider:?Valorie montesinos M.D. :1950???Age:73 Y???Sex:Female D ate:06/27/2024 Address:[address] [place] [address] Pcp:YASMANY ARCE M.D. 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 PAT ENTERED MENOPAUSE IN 1995.? SHE USES YUVAFEM TWICE WEEKLY FOR ATROPHIC VAGINTIS AND HAS NOTED DECREASED DYSPAREUNIA. SHE IS KNOWN TO BE BIPOLAR AND IS DOING BETTER. S/P CONE BIOPSY IN 1996 FOR MARGA 3.? HER SUBSEQUENT PAP TESTS HAVE BEEN NEGATIVE.? HER LAST PAP TEST IN 2022 SHOWED ASCUS, NEG HPV. HER LAST MAMMOGRAM DONE IN JUN 2022 SHOWED BREASTS ARE NOT DENSE AND WAS NORMAL. HER LAST BMD IN 2021 SHOWED OSTEOPOROSIS WITH T-SCORE OF -2.5 AT THE FEMORAL NECK AND -2.6 AT THE HIP.? OSTEO WORK UP WAS NORMAL AND SHE REFUSED MEDICATIONS. SHE HAD A COLONOSCOPY DONE IN 2010 AND IS SCHEDULED FOR ANOTHER ONE THIS YEAR. PFIZER X 3. ???Annual:? Patient presents for annual exam, ages 60-85, postmenopausal. ?General Health Maintenance:?Current breast complaints:?no breast pain, mass, discharge, or skin changes ?Urinary problems:?patient reports no urinary health problems or bowel health problems ?Calcium intake:?takes adequate calcium via diet and supplementation ?Significant SPANISH TEACHER problems:?no significant engraver jewelry symptoms or problems * ROS:?general:?no?chest pain.?no?palpitations.?no?headache.?no?cough.?no?shortness of breath.?no?fever.?no?unexplained weight loss.?no?nausea/vomiting.?no?change in bowel movements.?no blood in stool.?no?genitourinary complaints.?no?skin complaints.? * Medical History:? 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 * OB History:?Total pregnancies?2.?Total living children?1.?NVD?1.? * Surgical History:?[facility] Biops y 1996Colonoscopy Right Hand Surgery Lt Joint Replacement - Thumb * Hospitalization/Major Diagno stic Procedure:?1 Vaginal Delivery Agitated Depression x 4 weeks 08/2021 * Family History:?Mother: dece ased, congestive heart failure.?Father: 89 yrs.? * Social History:?Tobacco Use:?Tobacco Control (Standard)?Tobacco use:?Former smoker ?How long has it been since you last smoked??Greater than 10 years ???Sexual History:?Sexual History?Had sex in the past 12 months (vaginal, oral, or anal)?: Yes, with: Men only, Use protection?: No, Have you ever had a Sexually transmitted disease?: No.?Details of Sexual History?Are you sexually active??Yes ???Drugs/Alcohol:?Drugs?Have you used drugs other than those for medical reasons in the past 12 months??No ???Miscellaneous:?Caffeine: yes, frequency:, 3 cups per day of coffee. ?Children: yes. ?Exercise: yes, walking, garden. ?Living with: spouse. ?Marital status: . ?Natural support system: yes. ?Occupation: Retired. ?Sexually active: yes, monogamous relationship. ?Travel outside of the [place]: no. ???Drug/Alcohol:?AUDIT-C (Standard)?Did you have a drink containing alcohol in the past year??No ?Points?0 ?Interpretation?Negative * Medications:?TakingamLODIPin e Besylate 5MG 90 1 ORAL daily , Notes to Pharmacist: Rajendra-MJ NORVASCTrintellix 10 MG Tablet TAKE 1 TABLET BY MOUTH EVERY DAY Oral Multivitamins 30 1 ORAL daily , Notes to Pharmacist: Rajendra-MJVitamin C 500MG 60 2 grams ORAL daily , Notes to Pharmacist: Rajendra-MJdiazePAM 5 MG Tablet Oral Armodafinil 150 MG Tablet TAKE ONE TABLET BY MOUTH EVERY MORNING Oral Vitamin E 400 UNIT Capsule 1 capsule Orally Once a day Calcium-D 600MG 1 ORAL daily , [facility]: [facility]onyaYuv[facility] 10 MCG Tablet 1 tablet Vaginal TWICE A WEEK Losartan Potassium 50 MG Tablet Oral Taking amLODIPine Besylate 5MG 90 1 ORAL daily , Notes to Pharmacist: [facility] NORVASCTaking Trintellix 10 MG Tablet TAKE 1 TABLET BY MOUTH EVERY DAY Oral Taking Multivitamins 30 1 ORAL daily , Notes to Pharmacist: [facility] Vitamin C 500MG 60 2 grams ORAL daily , Notes to Pharmacist: [facility] diazePAM 5 MG Tablet Oral Taking Armodafinil 150 MG Tablet TAKE ONE TABLET BY MOUTH EVERY MORNING Oral Taking Vitamin E 400 UNIT Capsule 1 capsule Orally Once a day Taking Calcium-D 600MG 1 ORAL daily , Notes to Pharmacist: [facility] Yuvafem 10 MCG Tablet 1 tablet Vaginal TWICE A WEEK Taking Losartan Potassium 50 MG Tablet Oral DiscontinuedPROzac 40MG 30 2 capsule ORAL every morning , Notes to Pharmacist: [facility] CityTANIALithium Carbonate 300MG 90 1 ORAL Once a day , Notes to Pharmacist: [facility] 10 MG Tablet (Schedule II Drug) TAKE 1 TABLET BY MOUTH 3 TIMES A DAY FOR ADHD Oral Yuvafem 10 MCG Tablet 1 tablet Vaginal TWICE A WEEK Yuvafem 10 MCG Tablet 1 tablet Vaginal TWICE A WEEK FLUoxetine HCl 40 MG Capsule 2 capsule Oral Once a day Yuvafem 10 MCG Tablet 1 tablet Vaginal TWICE A WEEK Rexulti 0.5 MG Tablet TAKE 1 TABLET BY MOUTH EVERY DAY Oral Nortriptyline HCl 10 MG Capsule Oral Mupirocin 2 % Ointment External LORazepam 0.5 MG Tablet Oral Medication List reviewed and reconciled with the patientDiscontinued PROzac 40MG 30 2 capsule ORAL every morning , Notes to Pharmacist: [facility] [place]-Discontinued Breaks Carbonate 300MG 90 1 ORAL Once a day , Notes to Pharmacist: [facility] Methylphenidate HCl 10 MG Tablet (Schedule II Drug) TAKE 1 TABLET BY MOUTH 3 TIMES A DAY FOR ADHD Oral Discontinued Yuvafem 10 MCG Tablet 1 tablet Vaginal TWICE A WEEK Discontinued Yuvafem 10 MCG Tablet 1 tablet Vaginal TWICE A WEEK Discontinued FLUoxetine HCl 40 MG Capsule 2 capsule Oral Once a day Discontinued Yuvafem 10 MCG Tablet 1 tablet Vaginal TWICE A WEEK Discontinued Rexulti 0.5 MG Tablet TAKE 1 TABLET BY MOUTH EVERY DAY Oral Discontinued Nortriptyline HCl 10 MG Capsule Oral Discontinued Mupirocin 2 % Ointment External Discontinued LORazepam 0.5 MG Tablet Oral Medication List reviewed and reconciled with the patient * Allergies:?DARVON: AllergyER YTHROMYCIN: Allergyno[Allergies Verified] Objective: * Vitals:?Ht: 5 ft 1.3 in, Wt: 114 lbs, BMI:21.33Index, BP: 132/70 mm Hg, Temp: 97.4 F. * Examination: ???General Exam: ?CONSTITUTIONAL:?NECK/THYROID:?RESPIRATORY:?Auscultation: clear to auscultation bilaterally, Respiratory Effort: normal.?CARDIOVASCULAR:?Auscultation: regular rate and rhythm.?BREAST, Right:?BREAST, Left:?GASTROINTESTINAL:?MUSCULOSKELETAL:?SKIN:?NEURO/PSYCH:?Genitourinary: ?EXTERNAL GENITALIA:?VAGINA:?BLADDER:?URETHRA:?CERVIX:?UTERUS:?ADNEXA:?ANUS AND PERINEUM:? Assessment: * Assessment: 1.?Encounter for gynecologic al examination (general) (routine) without abnormal findings - Z01.419???2.?Encounter for screening mammogram for malignant neoplasm of breast - Z12.31???3.?Age-related osteoporosis without current pathological fracture - M81.0???4.?Postmenopausal atrophic vaginitis - N95.2???5.?Personal history of cervical dysplasia - Z87.410??? Plan: * Treatment: Notes: PAP TEST WITH HPV TYPING WAS OBTAINED.??2.?Encounter for screening mammogram for malignant neoplasm of breast?Imaging: MM Digital Mammo Screening Notes: REGULAR MAMMOGRAMS AND SBE'S WERE RECOMMENDED.??3.?Age-related osteoporosis without current pathological fracture?Imaging: BONE DENSITY Notes: DISCUSSED OSTEOPOROSIS AND ITS IMPACT ON HER HEALTH. REPEAT BMD THIS YEAR. ADEQUATE CALCIUM AND VIT D. WEIGHT BEARING EXERCISES. OSTEO PRECAUTIONS.??4.?Postmenopausal atrophic vaginitis? Start Yuvafem Tablet, 10 MCG, 1 tablet, Vaginal, TWICE A WEEK, 90 days, 24 Tablet, Refills 4.? Notes: CONTINUE YUVAFEM TWICE WEEKLY.??5.?Personal history of cervical dysplasia ? Notes: DISCUSSED PREVIOUS MARGA 3 AND SUBSEQUENTLY NEGATIVE PAP TESTS WITH NEG HPV. REPEAT PAP TEST WITH HPV TYPING WAS OBTAINED TODAY.?? * Imaging:? * ?Imaging: MAMMOGRAM, SCR EENING * Procedure Codes:? * Preventive Medicine:? ??YOUR PREVENTIVE WELLNESS PLAN:?Osteoporosis prevention?Calcium, D, strength training.?Breast Cancer Screening (Mammogram):?annually.?Cervical Cancer Screening (Pap Smear):?q 3 years with HPV screen.?Colorectal Cancer Screening:?q 10 years.? * Follow Up:?1 Year * Images: Billing Information: * Visit Code:? [id number] Preventive Care Est Pt. Age 65 and over. * Procedure Codes:? * Sign off status: Completed true * Appointment Provider:?Valorie Luu M.D. Date:?06/27/2024 Generated for Uri rogers/Charis/eTjaredsmitting on:?12/23/2024 05:47 AM EST History and Physical Notes * HPI (History of Present Illness) Category Sub-Category Detail Notes Category Not es New/Follow-up Patient Consult PAT ENTERED MENOPAUSE IN 1995. SHE USES YUVAFEM TWICE WEEKLY FOR ATROPHIC VAGINTIS AND HAS NOTED DECREASED DYSPAREUNIA. SHE IS KNOWN TO BE BIPOLAR AND IS DOING BETTER. S/P CONE BIOPSY IN 1996 FOR MARGA 3. HER SUBSEQUENT PAP TESTS HAVE BEEN NEGATIVE. HER LAST PAP TEST IN 2022 SHOWED ASCUS, NEG HPV. HER LAST MAMMOGRAM DONE IN JUN 2022 SHOWED BREASTS ARE NOT DENSE AND WAS NORMAL. HER LAST BMD IN 2021 SHOWED OSTEOPOROSIS WITH T-SCORE OF -2.5 AT THE FEMORAL NECK AND -2.6 AT THE HIP. OSTEO WORK UP WAS NORMAL AND SHE REFUSED MEDICATIONS. SHE HAD A COLONOSCOPY DONE IN 2010 AND IS SCHEDULED FOR ANOTHER ONE THIS YEAR. BlogCN 3. 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:: n o significant engraver jewelry symptoms or problems Examination Category Sub-Category Detail Notes Category Not es General Exam CONSTITUTIONAL: General Appearan ce:: alert, in no acute distress, normal, well nourished NECK/THYROID: Thyroid:: normal size and shape Inspection/Palpation:: normal RESPIRATORY: Auscultation: clear to auscultation bilaterally, Respiratory Effort: normal CARDIOVASCULAR: Auscultation: regula r rate and rhythm GASTROINTESTINAL: Hernias:: no hernias present, no inguinal adenopathy Liver and Spleen:: normal Abdomen:: no masses, nontender, nondiste nded MUSCULOSKELETAL: Inspection/Palpation:: no clubb ing, cyanosis, or edema SKIN: Skin:: normal NEURO/PSYCH: Mood/Affect:: normal Orientation:: time , place, person BREAST, Right: Inspection/Palpation :: no discharge, no masses present, no nipple retraction, no skin changes, no skin dimpling, no tenderness, no lymphadenopathy, no axillary mass, no axillary tenderness BREAST, Left: Inspection/Palpation :: no discharge, no masses present, no nipple retraction, no skin changes, no skin dimpling, no tenderness, no lymphadenopathy, no axillary mass, no axillary tenderness Genitourinary EXTERNAL GENITALIA: External Genitalia:: nor mal, no lesions VAGINA: Vagina:: normal appearance, no a bnormal discharge, no lesions BLADDER: Bladder:: no mass, nontender URETHRA: Urethra:: no erythema or lesions present CERVIX: Cervix:: no lesions, nontender UTERUS: Uterus:: nontender, normal conto ur, normal mobility, normal size ADNEXA: Adnexa:: no masses, no tendernes s ANUS AND PERINEUM: Anus/Perineum:: visually norm al
--- OUTSIDE RECORDS SUMMARY | 2024-12-23 05:48 | XMS_ITS | Clinical Summary ---
Author Organization [facility] Address [address] [place] [address] Care Team Providers Care Veterinarian Helper Name Role Phone Tami Francis MD Primary Care Provider [phone] Allergies Active Allergy Reactions Criticality Noted Date Comments Erythromycin Unknown/Patient and Family Unable to Define Medium 10/18/2024 Propoxyphene Unknown/Patient and Family Unable to Define Medium 10/18/2024 Medications Medication Sig Dispensed Refills Start Date End Date Status amLODIPine (NORVASC) 10 MG tabletIndications:Afsaneh darrick hypertension Take 1 tablet (10 mg total) by mouth daily. Do not start before January 30, 2023. 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 Do not start before January 30, 2023. 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 Do not start before January 30, 2023. 90 capsule 01/30/2023 Active guaiFENesin (MUCINEX) 600 MG 12 hr tabletIndications:Sea corbin allergies Take 1 tablet (600 mg total) by mouth 2 (two) times a day. 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 30 capsule 01/29/2023 Active LORazepam (ATIVAN) 1 MG tabletIndications:ZAC (generalized anxiety disorder) Take 1 tablet (1 mg total) by mouth nightly. 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 90 capsule 01/29/2023 Active propranolol (INDERAL) 20 MG tabletIndications:William ign essential tremor,ZAC (generalized anxiety disorder) Take 1 tablet (20 mg total) by mouth every 8 (eight) hours around the clock. 90 tablet 01/29/2023 Active Armodafinil (NUVIGIL) 150 MG tablet Active ascorbic acid (VITAMIN C) 1000 MG tablet Take by mouth. Active buPROPion (WELLBUTRIN XL) 150 MG 24 hr tablet Active diazepam (VALIUM) 5 MG tablet Active QUEtiapine (SEROquel) 25 MG tablet Active vitamin E 400 UNIT capsule Take 1 capsule by mouth daily. Active nystatin (MYCOSTATIN) 145649 UNIT/ML suspensionIndications :Throat discomfort Take 5 mL (500,000 Units total) by mouth 4 (four) times a day. 100 mL 10/18/2024 Active famotidine (PEPCID) 40 MG tabletIndications:Gas troesophageal reflux disease without esophagitis Take 1 tablet (40 mg total) by mouth nightly. 30 tablet 3 10/18/2024 Active PANTOprazole (PROTONIX) 40 MG EC tablet 11/05/2024 Active Active Problems Problem Noted Date Diagnosed Date Atrophic vaginitis 10/18/2024 Carcinoma in situ of cervix uteri 10/18/2024 Depressed bipolar I disorder 10/18/2024 History of cervical dysplasia 10/18/2024 Menopausal symptom 10/18/2024 Normal gynecologic examination 10/18/2024 Osteochondropathy 10/18/2024 Attention deficit hyperactiv ity disorder, predominantly inattentive type 06/15/2024 Depressive disorder 06/15/2024 Essential hypertension 06/15/2024 MDD (major depressive disord er), recurrent severe, without psychosis 01/23/2023 Chronic kidney disease due to benign hypertensio n 06/13/2021 Chronic kidney disease, stage 2 (mild) Low serum creatinine 06/13/2021 Encounters Date Type Department Care Team Description 11/30/2024 2:15 PM EST Office Visit [facility] [address] [phone] Lyndon Aquino MD Neck swelling (Primary Dx); Dysphagia, unspecified type 11/29/2024 Telephone [facility] [address] [phone] Lyndon Aquino MD 11/29/2024 Documentation [facility] [address] [place] [address] Lyndon Aquino MD 11/22/2024 1:00 PM EST Office Visit [facility] [address] [phone] Lyndon Aquino MD Gastroesophageal reflux disease without esophagitis (Primary Dx); Throat discomfort 10/26/2024 Telephone [facility] [address] [place] [address] Lyndon Aquino MD 10/18/2024 1:30 PM EST Clinical Support [facility] [address] [phone] Lyndon Aquino MD Oropharyngeal dysphagia (Primary Dx); Gastroesophageal reflux disease without esophagitis; Throat discomfort from Last 3 Months Immunizations Name Administration Dates Next Due Influenza Virus Trivalent Split Vaccine (MDV) IM 07/27/2015 Influenza, Quadrivalent (FLU ARIX, AFLURIA, FLULAVAL, FLUZONE) Preservative Free IM 11/27/2016 Pneumococcal Conjugate 13-Valent 11/27/2016 Pneumococcal Polysaccharide 23-Valent 12/22/2019 Tdap 11/30/2017 Family History Medical History Relation Name Comments Anxiety disorder Mother Depression Mother Relation Name Status Comments Mother Social History Tobacco Use Types Packs/Day [...] Orientation Heterosexual (straight) 01/23 1:23 PM EST Last Filed Vital Signs Vital Sign Reading Time Taken Comments Blood Pressure 132/71 01/29/2023 6:12 AM EDT Pulse 77 01/29/2023 6:12 AM EDT Temperature 35.7 ??C (96.2 ??F) 01/28/2023 4:00 PM ED T Respiratory Rate 18 01/28/2023 4:00 PM EDT Oxygen Saturation 96% 01/28/2023 4:00 PM EDT Inhaled Oxygen Concentration - - Weight 52.6 kg (116 lb) 11/30/2024 2:18 PM EST Height 157.5 cm (5' 2 ) 11/30/2024 2:18 PM EST Body Mass Index 21.22 11/30/2024 2:18 PM EST Plan of Treatment Health Maintenance Due Date Last Done Comments Hepatitis C Virus Screening 1949 Mammogram 1989 Colonoscopy 1994 Zoster (Shingles) Vaccine (1 of 2) 1999 DXA Bone Density (Females,Ages 65 and older) 2014 Influenza Vaccine 06/16/2024 11/27/2016, 07/27/2015 COVID-19 Vaccine (2023-2 5 season) 2024 RSV Vaccine 60 years and older and Patients (1 - 1-dose 75+ series) 2024 DTaP/Tdap/Td Vaccines (2 - T d or Tdap) 11/30/2027 11/30/2017 Pneumococcal Vaccines 50+ Completed 2019, 11/27/2016 Hepatitis B Vaccines Aged Out No long er eligible based on patient's age to complete this topic Advance Directives * Full Code (Latest Code Status on File) Date Activated Date Inactivated Comments 01/23/2023 6:34 PM Care Teams Veterinarian Helper Relationship Specialty Start Date End Date Tami Francis MD [address] [place] [address] PCP - General Internal Medicine 01/23/23
[2024-12-23] MEDS: Scopolamine 1.5 MG PATCH.TD.3 EAR-BEHIND (06:22)
--- NOTE | 2024-12-23 06:36 | HO.ANESPROP2 ---
[facility] Active Problems Active Problems: All Active Problems Pre-op evaluation (Acute) Thyroid nodule (Acute) Major depressive disorder in partial remission (Acute) Delirium in remission (Acute) Major depressive disorder, recurrent, severe with psychotic features (Acute) Footdrop (Acute) Major depressive disorder, recurrent severe without psychotic features (Acute) Personality disorder (Acute) Organic catatonia (Acute) Abnormal EKG (Acute) Odynophagia (Acute) Paranoia (Acute) Dysphagia (Acute) Serotonin syndrome (Acute) Ataxia (Acute) Tremors of nervous system (Acute) Major depression in full remission (Acute) Memory deficit (Acute) ADHD (attention deficit hyperactivity disorder) (Acute) ZAC (generalized anxiety disorder) (Acute) Depression (Acute) Acute bacterial conjunctivitis of both eyes (Acute) Hypercalcemia (Acute) Hypothyroidism (Acute) Leukocytosis (Acute) Hypertension (Chronic) Past Medical History Medical History Pre-op evaluation Urinary tract infection Depression Hypothyroidism ZAC (generalized anxiety disorder) Hypertension ADHD (attention deficit hyperactivity disorder) Family History Family History Other No pertinent family history Family history of problems with anesthesia: No Surgical History Surgical History H/O thumb surgery H/O cone biopsy of cervix History of Problems with Anesthesia: No Social History Social History Household Members: Spouse Household Members Other:: And two cats. Housing: House Do you presently have visiting nurse or other home services: No Unable to assess alcohol history related to: Unknown Alcohol intake: never Patient Tobacco Use Status: Never used Tobacco Tobacco use type: Cigarette Years Smoked: 20 e-Cigarette/Vaping Use: Never Used Second Hand Smoke Exposure: No Substance Use Type: Former Substance User and Marijuana Advance Directives: No Advance Directives Information Provided: Yes service: No Sexual orientation: Straight/Heterosexual Meds Allergies Allergy/AdvReac Type Severity Reaction Status Date / Time No Known Allergies Allergy Verified 10/28/24 07:13 Active Medications: Current Medications Lactated Ringer's (Lr) 1,000 mls @ 100 mls/hr IVCONT .Q10H [facility] Lactated Ringer's (Lr) 1,000 mls @ 50 mls/hr IVCONT .Q20H [facility] Home Medications ?Medication ?Instructions ?Recorded ?Confirmed ?Last Taken ?Type fluticasone propionate 50 1 spray intranasal BID 08/27/23 11/03/24 Unknown History mcg/actuation nasal spray,suspension amlodipine 5 mg tablet 10 mg PO DAILY 07/12/24 11/03/24 Unknown History famotidine 40 mg tablet 40 mg PO DAILY 11/03/24 11/03/24 Unknown History Exam Airway Mallampati Class: II TM Dist: >3cm Neck ROM: Full Heart: rrr Lungs: cta Assessment and Plan Assessment Anesthesia Assessment: Anesthesia Plan Discussed and Chart Reviewed Final Anesthetic Review Family History of Problems with Anesthesia: No History of Problems with Anesthesia: No NPO: Yes ASA Class: III Final Preanesthetic Review: No Changes in Pt Med Stat, Meds/Allgs Chart Reviewed and Consent Obtained/Reviewed Patient Risk: Intermediate Procedure Risk: Intermediate Anesthetic Plan Anesthetic Plan: GA Disposition: Standard PACU
[2024-12-23] MEDS: Lactated Ringers 1,000 ML 100 ML IVCONT (06:44)
--- NOTE | 2024-12-23 07:04 | MHC.SHP ---
Pre-Procedural Eval Section A - 24 Hr Update-Section A only Date of Service: 12/23/24 The patient is an INPATIENT: No Changes since office visit: Yes Cold of Flu in the past 2 weeks, Yes New Medical Problems, Yes Changes in Medication and Yes Patient answered all questions The patient has been examined within 24 hours of the surgical procedure. The History & Physical has been completed within 30 days and I have reviewed it.: No Section B - Complete if H&P > 30 days Chief Complaint: depression Details of Present Illness: recurrent depression non specific ent issues Relevant Family History (Specify if Yes): No Relevant Social History: None Present Medications: see Short Stay Collaborative assessment Medical History: No relevant PMH History of Previous Operations: Relevant previous surgery/procedure and date(s) (ect) Allergies: Allergies Allergy/AdvReac Type Severity Reaction Status Date / Time No Known Allergies Allergy Verified 10/28/24 07:13 Review of Systems Sugical H&P ROS: Negative: Constitution, Cardiovascular, Respiratory, Neurological, Psychiatric, Hem-Onc, Allergic/Immunologic, Gastrointestinal, Genitourinary, Musculoskeletal, Integumentary and Endocrine and Yes, Specify: Eyes/Ears/Nose/Throat (inc secretions) Exam Surgical H&P Exam: Normal: Heart, Normal: Lungs, Normal: Extremities, Normal: Abdomen, Normal: Skin and Normal: Neurological Plan Diagnosis/Plan: Unchanged I have reviewed the history and physical and performed a pertinent physical examination on my patient. No changes have occurred unless specified. Time Spent With Patient Time: Total time managing care of this patient today ____ minutes.
--- NOTE | 2024-12-23 07:06 | HO.ECTPROC ---
ECT Procedure Note Diagnosis/Treatment Date of Service: 12/23/24 Diagnosis: Bipolar disorder Previous ECT Date: 10/28/24 Treatment: Maintenance Interval Clinical Notes: The patient reported euthymia, much olivo affect has been meditating regularly. no changes on her treatment, denies side effects with the previous ECT. ECT done as usual, no complications, woke up well. Could decrease propofol Time: Total time managing care of this patient today ____ minutes. ECT Settings Device: THYMATRON DGx Electrode Placement: Bifrontal Program/Pulse Width: 0.50 Energy Percent: 100 Seizure Duration By EEG (in seconds): 18 (seizure activity noted until 18s) Medications Administration General Anesthetic: Methohexital (70) Muscle Relaxant: Succinylcholine (80) Ancillary Medications Anti-emetics: Zofran - Pre ECT Airway Management Airway Management: Bag Mask Ventilation Treatment Recommendations Electrode Placement: Right Unilateral Notes: f/u 4 wks Pt Tolerated Procedure w/o Issue: Yes
== END 2024-12-23 08:42 | disposition home or self-care (01) ==
PROVIDERS: PCP Internal Medicine; Visit Provider Psychiatry & Neurology Psychiatry
PROC: (CPT 90870; principal; 2024-12-23 07:30)
DX: F31.9 Bipolar disorder, unspecified (principal); F41.1 Generalized anxiety disorder; F90.9 Attention-deficit hyperactivity disorder, unspecified type; I10 Essential (primary) hypertension; E04.1 Nontoxic single thyroid nodule; Z79.899 Other long term (current) drug therapy; Z79.51 Long term (current) use of inhaled steroids
CPT/HCPCS: 90870; J0330; J2405

== ENCOUNTER → 2024-12-23 05:45 | Outpatient (BNV) | payer MEDICARE, SELFPAY | PROVIDERS: PCP Internal Medicine; Visit Provider Psychiatry & Neurology Psychiatry | DX: F33.3 Major depressive disorder, recurrent, severe with psychotic symptoms (principal) | CPT/HCPCS: 90870 ==

== ENCOUNTER 2025-01-19 10:42 | Outpatient (AMB) | payer MEDICARE, SELFPAY ==
--- NOTE | 2025-01-19 11:03 | MHC.OFFVISPS ---
Intake Intake Visit Reasons: depression Allergies No Known Allergies Allergy (Verified 10/28/24 07:13) HPI- Psychiatric Chief Complaint: depression HPI Narrative: Patient seen psychiatric follow-up with her . Patient's mood has been quite stable she continues to have some throat symptoms particularly in the nighttime in the morning but contrast scan was completed which did not show any evidence malignancy. She is being followed by endocrinology also for thyroid nodule. Patient has continued on bupropion Seroquel at HS Valium 5 mg at bedtime not taking morning and afternoon doses. Patient note no abnormal movements. Her last ECT was approximately a month ago. 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 No new medical concerns Past Psychiatric History: -Pt sees Dr. Shearer in OP setting recent hospitalization at the [facility] Has had often on relapses over the past year and half -Remote hx of IPLOC 12 yrs ago, recent admissions at [facility] since 2020 with at least 4 admissions in the last 2 years Mental Status Exam Mental Status Exam Narrative: Mental Status Exam Narrative: Appearance: Casually dressed Behavior: Cooperative appropriate psychomotor: Within normal limits Speech: Normal volume and prosody Thought proccess logical and goal-directed Thought content: Future oriented focused on treatment feeling much better still concerns regarding her discomfort in the back of her throat Mood: Euthymic Affect: Appropriate to mood full affect SI:denies HI:denies VH/AH:none Delusions: None Insight/judgment: Good insight and judgment Memory/cog: Intact Assessment and Plan Assessment & Plan (1) ADHD (attention deficit hyperactivity disorder): Status: Acute Code(s): F90.9 - Attention-deficit hyperactivity disorder, unspecified type (2) ZAC (generalized anxiety disorder): Status: Acute Code(s): F41.1 - Generalized anxiety disorder (3) Major depression in full remission: Status: Acute Code(s): F32.5 - Major depressive disorder, single episode, in full remission Plan Discussed risks benefits regarding Seroquel potential side effects no abnormal movements noted by patient no abnormal movements on exam discussed risk of tardive dyskinesia also risk of elevated blood sugar. Are modafinil appears to be quite helpful no palpitations patient is again functioning at her normal level. ECT presently on hold would try and maintain medical clearance discussed with patient calling the office if she felt she was cycling down and would try and get the patient in for ECT Medications: Changed From diazepam 1/2 tab am 1/2 tab aft 1 tab bedtime 2.5 - 5 mg (0.5 - 1 x 5 mg) PO DIRECTED 30 days 60 tabs 3RF anxiety To diazepam 1 bedtime 2.5 - 5 mg (0.5 - 1 x 5 mg) PO DIRECTED 60 tabs 3RF anxiety 30 days Refilled quetiapine 25 - 50 mg (1 - 2 x 25 mg) PO BEDTIME 30 tabs 1RF 60 days armodafinil 75 mg (1/2 x 150 mg) PO QAM 15 tabs 2RF Counseling and coordination of Care Pt. Self Management counseling: Breathing, Exercise, Maintenance-social rhythm, Sleep hygiene and Behavior activation Medication management counseling: Effectiveness, Side effects and Dosing range Details: I spent [39] minutes reviewing the record, seeing the patient and documenting in the medical record. Counseling provided to the patient/caregiver as outlined below. Addressed patient/caregiver concerns regarding current medication regime including effective adherence. Addressed patient/caregiver concerns regarding diagnosis and prognosis including accuracy of diagnosis, prognosis over time, impact of diagnosis. Addressed patient/caregiver concerns regarding impact of recent stressors. [facility] Medical History Pre-op evaluation Urinary tract infection Depression Hypothyroidism ZAC (generalized anxiety disorder) Hypertension ADHD (attention deficit hyperactivity disorder) Surgical History H/O thumb surgery H/O cone biopsy of cervix Family History Other No pertinent family history Social History Household Members: Spouse Household Members Other:: And two cats. 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
--- OUTSIDE RECORDS SUMMARY | 2025-01-19 12:47 | XMS_ITS | Encounter Summary ---
Author Organization [facility] Address [address] [place] [address] Care Team Providers Care Pulpit Operator Name Role Phone Tami Francis MD Primary Care Provider [phone] Encounter Details Date Type Department Care Team ([facility] st Contact Info) Description 12/30/2024 Telephone [facility] [address], [place] [address] Lyndon Aquino MD [address] [place] [address] Social History Tobacco Use Types Packs/Day Years [...] encounter Miscellaneous Notes * Telephone Encounter - Lyndon Aquino MD - 12/30/2024 10:45 AM EST Spoke with Miriam regarding CT results, showing thyroid goiter but no other concerning features. She is in the process of having thyroid nodules biopsied and will follow-up with us if symptoms persist or new symptoms arise. documented in this encounter Plan of Treatment Not on file documented as of this encounter Visit Diagnoses Not on filedocumented in this encounter Care Teams Pulpit Operator Relationship Specialty Start Date End Date Tami Francis MD [address] [place] [address] PCP - General Internal Medicine 01/23/23 documented as of this encounter
--- OUTSIDE RECORDS SUMMARY | 2025-01-19 12:47 | XMS_ITS | Encounter Summary ---
Author Organization [facility] Address [address] [place] [address] Care Team Providers Care Leave Manager Name Role Phone Tami Francis MD Primary Care Provider [phone] Encounter Details Date Type Department Care Team (Late st Contact Info) Description 12/23/2024 Orders Only [facility] [address], [place] [address] Lyndon Aquino MD [address] [place] [id number] Preop examination (Primary Dx) Social History Tobacco Use Types Packs/Day Years [...] PM EST documented as of this encounter Plan of Treatment Not on file documented as of this encounter Procedures Procedure Name Priority Date/Time Associated Diagnosis Comments BLOOD UREA NITROGEN (BUN) Routine 12/26/2024 1:45 PM EST Preop examination CREATININE WITH EGFR Routine 12/26/2024 1:45 PM EST Preop examination documented in this encounter Results * BLOOD UREA NITROGEN (BUN) (12/26/2024 1:45 PM EST) Blood Urea Nitrogen (BUN) 15 7 - 25 mg/dL Screen [facility] Blood Blood specimen / Unknown 12/26/2024 1:45 PM EST 12/26/2024 1:46 PM EST Lyndon Aquino MD LAB BLOOD ORDERABLES Performing Organization Address [facility]/ZIP Co de Phone Number [facility] [address] [place] [phone] * (ABNORMAL) Creatinine with eGFR (12/26/2024 1:45 PM EST) Creatinine 1.07(H) 0.60 - 1.00 mg/dL Screen [facility] Creatinine w/ eGFR 54(L) > OR = 60 mL/min/1.7 3m2 Screen [facility] Blood Blood specimen / Unknown 12/26/2024 1:45 PM EST 12/26/2024 1:46 PM EST Lyndon Aquino MD LAB BLOOD ORDERABLES Performing Organization Address City/[facility]/ZIP Co de Phone Number [facility] [address] [place] [phone] documented in this encounter Visit Diagnoses Diagnosis Preop examination- Primary Unspecified pre-operative examination documented in this encounter Care Teams Leave Manager Relationship Specialty Start Date End Date Tami Francis MD [address] [place] [address] PCP - General Internal Medicine 01/23/23 documented as of this encounter
--- OUTSIDE RECORDS SUMMARY | 2025-01-19 12:47 | XMS_ITS | Clinical Summary ---
Author Organization [facility] Address [address] [place] [address] Care Team Providers Care School Leader Name Role Phone Tami Francis MD Primary Care Provider [phone] Allergies No known active allergies Medications amLODIPine (NORVASC) 5 MG tablet Take 5 mg by mouth 1 (one) time each day 04/18/2021 Active diazePAM (VALIUM) 2 MG tablet Take 2 mg by mouth 2 (two) times a day if needed Active lithium 150 MG capsule Take 1 capsule by mouth at bed time Active methylphenidate CD (METADATE CD) 10 MG CR capsule Take 1 capsule by mouth 3 (three) times a day Active traZODone (DESYREL) 50 MG tablet Take 50 mg by mouth at bed time Active lisinopril 2.5 MG tablet Take 2.5 mg by mouth 1 (one) time each day Active Active Problems Problem Noted Date Diagnosed Date Serum creatinine below reference range 1 Chronic kidney disease, stage 2 (mild) 1 Chronic kidney disease due to benign hypertensio n 06/13/2021 Resolved Problems Problem Noted Date Diagnosed Date Resolved Date Depressive disorder 06/13/2021 06/13/20 21 Social History Tobacco Use Types Packs/Day Years Used Date Smoking Tobacco: Former Smokeless Tobacco: Never Alcohol Use Standard Drinks/Week Comments Not Currently 0 (1 standard drink = 0.6 oz pur e alcohol) Comments Unknown Sex and Gender Information Value Date Recorded Sex Assigned at Not on file Legal Sex Female 4:56 PM EST Gender Identity Not on file Sexual Orientation Not on file Last Filed Vital Signs Vital Sign Reading Time Taken Comments Blood Pressure 156/88 06/13/2021 3:17 PM EDT Pulse 85 06/13/2021 3:17 PM EDT Temperature - - Respiratory Rate - - Oxygen Saturation 98% 06/13/2021 3:17 PM EDT Inhaled Oxygen Concentration - - Weight 53.5 kg (118 lb) 06/13/2021 3:17 PM EDT Height - - Body Mass Index - - Plan of Treatment Health Maintenance Due Date Last Done Comments Breast Cancer Screening 1950 Pneumococcal Vaccine: 65+ Ye ars (1 of 2 - PCV) 1955 Colorectal Cancer Screening: Annual FOBT 1998 Colorectal Cancer Screening: Colonoscopy 1998 Colorectal Cancer Screening: Sigmoidoscopy 1998 Influenza Vaccine (#1) 2024 Hepatitis B Vaccine Aged Out No longe r eligible based on patient's age to complete this topic Insurance [facility] MEDICARE [facility] MEDICARE Care Teams School Leader Relationship Specialty Start Date End Date Tami Francis MD [address] [place] [address] PCP - General Internal Medicine 06/13/21
--- OUTSIDE RECORDS SUMMARY | 2025-01-19 12:48 | XMS_ITS | Encounter Summary ---
Author Organization [facility] Address [address] [place] [address] Care Team Providers Care Cath Lab Nurse Name Role Phone Tami Francis MD Primary Care Provider [phone] Reason for Visit * Reason Comments Medication Refill Encounter Details Date Type Department Care Team ([facility] st Contact Info) Description 01/13/2025 Refill [facility] [address], [place] [address] Lyndon Aquino MD [address] [place] [phone] Gastroesophageal reflux disease without esophagitis Social History Tobacco Use Types Packs/Day Years [...] as of this encounter Visit Diagnoses Diagnosis Gastroesophageal reflux disease without esophagitis Esophageal reflux documented in this encounter Care Teams Cath Lab Nurse Relationship Specialty Start Date End Date Tami Francis MD [address] [place] [address] PCP - General Internal Medicine 01/23/23 documented as of this encounter
--- OUTSIDE RECORDS SUMMARY | 2025-01-19 12:48 | XMS_ITS ---
Author Organization [facility] Address [address] [facility] [address] [place] [address] Care Team Providers Care Housing Assistant Name Role Phone YASMANY ARCE M.D. Primary Care Provider Valorie Campos [phone] Allergies Allergen (clinical drug ingredient) Drug/Non Drug Allergy documented on EMR Reaction Allergy Type Onset Date Status DARVON Unknown Drug Allergy Active erythromycin ERYTHROMYCIN Unknown Drug Allergy A ctive Results Component Value Reference Range Notes [id number] IGP No Culture 30 Plus Reviewed date:07/01/2024 08:28:45 AM Interpretation: Performing Lab:[facility], [address], [address], [place], Phone - [phone], Director - [facility] Notes/Report: Clinical Information:Vaginal/Cervical, LMP: Men o [id number] Dates / Results....03/16/23 ASCUS, Neg HPV Other..............Post Menopausal No. of containers..01 ThinPrep Vial DIAGNOSIS: NEGATIVE FOR IN TRAEPITHELIAL LESION OR MALIGNANCY. Specimen adequacy: Satisfact ory for evaluation. No endocervical component is identified. Clinician provided ICD10: Z0 1.419 Performed by: Josue white Business Services Officer ([facility]) . . Note: The Pap smear [...] Theresa Basurto, [address], [place], Phone - [phone], Director - [facility] Notes/Report: Clinical Information:Vaginal/Cervical, LMP: Men o [id number] Dates / Results....03/16/23 ASCUS, Neg HPV Other..............Post Menopausal No. 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+ Medications Medication SIG (Take, Route, Frequency, Duration) Notes Start Date End Date Status Yuvafem 10 MCG 1 tablet Vaginal TWICE A WEEK for 90 days 06/27/2024 Active Yuvafem 10 MCG 1 tablet Vaginal TWICE A WEEK for 90 days 03/16/2023 Active Losartan Potassium 50 MG Oral for 90 Days Active Calcium-D 600MG 1 ORAL daily for -3 [facility] 01/20/2012 Active Multivitamins 1 ORAL daily for -3 [facility] 01/20/2012 Active Vitamin E 400 UNIT 1 capsule Orally Once a day for 30 day(s) Active Armodafinil 150 MG TAKE ONE TABLET BY MOUTH EVERY MORNING Oral for 30 Days Active Vitamin C 500MG 2 grams ORAL daily [facility] 04/24/2014 Active diazePAM 5 MG Oral for 30 Days Active Trintellix 10 MG TAKE 1 TABLET BY MOUTH EVERY DAY Oral for 90 Days Active amLODIPine Besylate 5MG 1 ORAL daily for -3 [facility] NORVASC 0 06/28/2012 Active Social History Tobacco [...] 06/27/2024 Encounters Encounter Location Date Provider Diagnosis [address] [place] [address] 06/27/2024 Valorie Luu Encounter for gynecological examination [...] Provider Name:Valorie montesinos, 07/03/2025 02:20:00 PM, [address] [facility], [address], [place], [address], Progress Notes * DENTON DENNISONHDOB:[birth year] (73 yo F)Acc No.[id number]:06/27/2024 PROGRESS NOTES Patient:?TEDDY DENNISON Appointment Provider:?Valorie montesinos M.D. :1950???Age:73 Y???Sex:Female D ate:06/27/2024 Address:[address] [place] [address] Pcp:YASMANY ARCE M.D. 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 * Medical History:? 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 ?Travel outside of the [place]: no. ???Drug/Alcohol:?AUDIT-C (Standard)?Did you have a [...] 1 ORAL daily , [facility] MCG Tablet 1 tablet Vaginal TWICE A WEEK Losartan Potassium 50 MG Tablet Oral Taking amLODIPine Besylate 5MG 90 1 ORAL daily , Notes to Pharmacist: [facility] [place] NORVASCTaking Trintellix 10 MG Tablet TAKE 1 TABLET BY MOUTH EVERY DAY Oral Taking Multivitamins 30 1 ORAL daily , Notes to Pharmacist: [facility] [place] Vitamin C 500MG 60 2 grams ORAL daily , [facility] Pharmacist: [facility] diazePAM 5 MG Tablet Oral Taking Armodafinil 150 MG Tablet TAKE ONE TABLET BY MOUTH EVERY MORNING Oral Taking Vitamin E 400 UNIT Capsule 1 capsule Orally Once a day Taking Calcium-D 600MG 1 ORAL daily , Notes [facility] Pharmacist: [facility] [place] [facility] Yuvafem 10 MCG Tablet 1 tablet Vaginal TWICE A WEEK Taking Losartan Potassium 50 MG Tablet Oral DiscontinuedPROzac 40MG 30 2 capsule ORAL every morning , Notes to Pharmacist: [facility] [place]IAL[place] Carbonate 300MG 90 1 ORAL Once a day , Notes to Pharmacist: [facility] 10 MG Tablet (Schedule II Drug) [...] ORAL every morning , Notes to Pharmacist: [facility] [place]-Discontinued [place] Carbonate 300MG 90 1 ORAL Once a day , Notes to Pharmacist: [facility] Methylphenidate HCl 10 MG Tablet (Schedule II [...] Temp: 97.4 F. * Examination: ???General Exam: ?CONSTITUTIONAL:?General Appearance:?alert, in no acute distress, normal, well nourished ?NECK/THYROID:?Inspection/Palpation:?normal ?Thyroid:?normal size and shape ?RESPIRATORY:?Auscultation: clear to auscultation bilaterally, Respiratory Effort: normal.?CARDIOVASCULAR:?Auscultation: regular rate and rhythm.?BREAST, Right:?Inspection/Palpation:?no discharge, no masses present, no nipple retraction, no skin changes, no skin dimpling, no tenderness, no lymphadenopathy, no axillary mass, no axillary tenderness ?BREAST, Left:?Inspection/Palpation:?no discharge, no masses present, no nipple retraction, no skin changes, no skin dimpling, no tenderness, no lymphadenopathy, no axillary mass, no axillary tenderness ?GASTROINTESTINAL:?Abdomen:?no masses, nontender, nondistended ?Liver and Spleen:?normal ?Hernias:?no hernias present, no inguinal adenopathy ?MUSCULOSKELETAL:?Inspection/Palpation:?no clubbing, cyanosis, or edema ?SKIN:?Skin:?normal ?NEURO/PSYCH:?Orientation:?time , place, person ?Mood/Affect:?normal?Genitourinary: ?EXTERNAL GENITALIA:?External Genitalia:?normal, no lesions ?VAGINA:?Vagina:?normal appearance, no abnormal discharge, no lesions ?BLADDER:?Bladder:?no mass, nontender ?URETHRA:?Urethra:?no erythema or lesions present ?CERVIX:?Cervix:?no lesions, nontender ?UTERUS:?Uterus:?nontender, normal contour, normal mobility, normal size ?ADNEXA:?Adnexa:?no masses, no tenderness ?ANUS AND PERINEUM:?Anus/Perineum:?visually normal??? Assessment: * Assessment: 1.?Encounter for gynecologic al [...] * Images: Billing Information: * Visit Code:? 61289 Preventive Care Est Pt. Age 65 and over. * Procedure Codes:? * Sign off status: Completed true * Appointment Provider:?Valorie Luu M.D. Date:?06/27/2024 Generated for Uri rogers/Charis/Aritting on:?01/19/2025 12:47 PM EST History and Physical Notes * HPI [...] ANOTHER ONE THIS YEAR. PFIZER X 3. Annual General Health Maintenance: Current breast complaints:: no breast pain, mass, discharge, or skin changes Urinary problems:: patient r eports no urinary health problems or bowel health problems Calcium intake:: takes adequ ate calcium via diet and supplementation Significant HOUSEHOLD APPLIANCE MECHANIC problems:: n o significant flange machine operator symptoms or problems Examination Category Sub-Category Detail [...]
--- OUTSIDE RECORDS SUMMARY | 2025-01-19 12:48 | XMS_ITS ---
Author Organization [facility] [employer] Address [address] [facility] [address] [place] [address] Care Team Providers Care Air Pollution Specialist Name Role Phone YASMANY ARCE M.D. Primary Care Provider Valorie Campos [phone] Allergies Allergen (clinical drug ingredient) Drug/Non Drug Allergy documented on EMR Reaction Allergy Type Onset Date Status DARVON Unknown Drug Allergy Active erythromycin ERYTHROMYCIN Unknown Drug Allergy A ctive REASON FOR VISIT HR MEDICARE PE Encounters Encounter Location Date Provider Diagnosis [facility] [employer] [address] [place] [address] 03/23/2024 Valorie Luu Plan Of Treatment Next Appt Details Provider Name:Valorie montesinos, 07/03/2025 02:20:00 PM, [address] [facility], [address], [place], [address], Progress Notes * DENTON DENNISONHDOB:[birth year] (74 yo F)Acc No.[id number]:03/23/2024 PROGRESS NOTES Patient:?CHARITY DENNISONORAH Appointment Provider:?Valorie montesinos M.D. :1950???Age:73 Y???Sex:Female D ate:03/23/2024 Address:[address] [place] [address], [id number] Pcp:YASMANY ARCE M.D. Subjective: * Chief Complaints: [...] on cytologic smear of cervix (ASC-US). 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 * Electronic signature of Jyoce Luu MD on 01/19/2025 at 12:48 PM EST Sign off status: Pending * Appointment Provider:?Valorie Luu M.D. Date:?03/23/2024 Generated for Uri rogers/Charis/Abdelrahmansmitting on:?01/19/2025 12:48 PM EST
--- OUTSIDE RECORDS SUMMARY | 2025-01-19 12:48 | XMS_ITS | Continuity of Care Document ---
Author Organization [facility] Address [address] [facility] [address] [place] [address] Phone [phone] Care Team Providers Care Densitometrist Name Role Phone Tami Francis M.D. Care Team Information Receiv er [phone] Problems Active Problems Provider Date Attention deficit [...] SIG Qnty Indications Order ing Provider Date Bggrtdfo4pf Tablets Take 1/2 Tab Every Morning, 1/2 Tab Afternoon, 1 Tab Bedtime as Needed Unknown Quetiapine Pachwiix73be Tablets Take 1 Tablet AT Bedtime, 1/2-1 Daily as Needed For Obsessional Thinking Unknown Vvszcajxpgt305ii Tablets Take One Tablet By Mouth Every Morning Unknown Bupropion Hydrochloride ER (XL)150mg Tablets ER 24HR Take 1 Tablet By Mouth Every Day Unknown Amlodipine Rkekubjr51hy Tablets Take 1 Tablet By Mouth Every Day Tami Francis M.D. Qsbakgzmdb24wc Tablets Take 1 Tablet By Mouth Every Day Unknown Vitamin G9494ph Tablets 1 by mouth every day Unknown Calcium 4044849(600Ca) mg Tablets 1 by mouth twice a day Unknown Rkhkus91cp Tablets Unknown 0 Vital Signs Date Vital Result Comment 12/16/2024 1:14pm BP Systolic 126 mmHg BP Diastolic 70 mmHg Heart Rate 90 /min Height 61 inches 5'1 Weight 112.12 lb BMI (Body Mass Index) 21.2 kg/m2 Results Test Acquired Date Facility Test Result H/L Range N ote Laboratory test finding 12/16/2024 [facility] TSH 0.393 uIU/mL Low 0.450-4.5 00 Thyroxine (T4) Free, Direct 1.10 ng/dL 0.82-1.77 Triiodothyronin e (T3), Free 3.8 pg/mL 2.0-4.4 Laboratory test finding 08/11/2024 [facility] Thyrotropin Receptor [...] Specimen not received at refrigerated temperature. TEST: [id number] Thyrotropin Receptor Ab, Serum Panel: [id number] Medical Devices Description No Information Available Encounters Type Date Location Provider Dx Diagnosis Office Visit 08/11/2024 10:45a Main Office NEMO Bill E04.2 Nontoxic mult inodular goiter Assessments Date Code Description Provider 12/16/2024 E04.2 Nontoxic multinodular goiter NEMO Bill Plan of Treatment Future Appointment(s):* 06/15/2025 1:00 pm - NEMO Bill at Main Office 12/16/2024 - NEMO Bill* E04.2 Nontoxic multinodular goiter* New Xrays: * Ultrasound Thyroid, Scheduled: 01/16/25 Functional Status Description No Information Available Mental Status Description No Information Available Referrals Description No Information Available
--- OUTSIDE RECORDS SUMMARY | 2025-01-19 12:48 | XMS_ITS ---
Author Organization [employer] Address [address] [facility] [address] [address] Care Team Providers Care Remote Sensing Engineer Name Role Phone YASMANY ARCE M.D. Primary Care Provider Jose Luu Valorierios Osullivan [phone] REASON FOR VISIT RX REFILL Medications Medication SIG (Take, Route, Fr equency, Duration) Notes Start Date End Date Status Yuvafem 10 MCG 1 tablet Vaginal TWI CE A WEEK for 90 days 03/16/2023 Active Encounters Encounter Location Date Provider Diagnosis [facility] [employer] [facility] [address] [facility] [address] [address] 04/29/2024 Valorie Luu Postmenopausal atrophic vaginitis N95.2 [...] Name:Valorie Eleonora montesinos, 07/03/2025 02:20:00 PM, [address] [facility], [address], [place], [address], Progress Notes * DENTON DENNISONHDOB:[birth year] (73 yo F)Acc No.[id number]:04/29/2024 Patient:?DENTON DENNISONH :1950???Age:73 Y???Sex:Female Address:[address] [place] [address], , [place], [address] * Refills? Refill Yuvafem Tablet, 10 MCG, Vaginal, 24 Tablet, 1 tablet, TWICE A WEEK, 90 days, Refills=0 * true * Date:? Generated for Uri rogers/Charis/Aritting on:?01/19/2025 12:48 PM EST
--- OUTSIDE RECORDS SUMMARY | 2025-01-19 12:48 | XMS_ITS | Patient Health Record ---
Author Organization [facility] Address [address] [facility] [address] [place] [address] Care Team Providers Care Hand Launderer Name Role Phone YASMANY ARCE M.D. Primary Care Provider Valorie Campos Unavailable [phone] Allergies Allergen (clinical drug ingredient) Drug/Non Drug Allergy documented on EMR Reaction Allergy Type Onset Date Status DARVON Unknown Drug Allergy Active erythromycin ERYTHROMYCIN Unknown Drug Allergy A ctive Results Component Value Reference Range Notes [id number] IGP No Culture 30 Plus Reviewed date:07/01/2024 08:28:45 AM Interpretation: Performing Lab:[facility], [address], [address], [place], Phone - [phone], Director - [facility] Notes/Report: Clinical Information:Vaginal/Cervical, LMP: Men o [id number] Dates / Results....03/16/23 ASCUS, Neg HPV Other..............Post Menopausal No. of containers..01 ThinPrep Vial DIAGNOSIS: NEGATIVE FOR IN TRAEPITHELIAL LESION OR MALIGNANCY. Specimen adequacy: Satisfact ory for evaluation. No endocervical component is identified. Clinician provided ICD10: Z0 1.419 Performed by: Josue white, Press Reader ([facility]) . . Note: The Pap smear is [...] Theresa [address], [address], [place], Phone - [phone], Director - [facility] Notes/Report: Clinical Information:Vaginal/Cervical, LMP: Men o [id number] Dates / Results....03/16/23 ASCUS, Neg HPV Other..............Post [...] Active Multivitamins 1 ORAL daily for -3 [facility] 01/20/2012 Active amLODIPine Besylate 5MG 1 ORAL daily for -3 [facility] NORVASC 0 06/28/2012 Active Yuvafem 10 MCG 1 tablet Vaginal TWICE A WEEK for 90 days 03/16/2023 Active Losartan Potassium 50 MG Oral for 90 Days Active Vitamin E 400 UNIT 1 capsule Orally Once a day for 30 day(s) Active Calcium-D 600MG 1 ORAL daily for -3 [facility] 01/20/2012 Active Armodafinil 150 MG TAKE ONE TABLET BY MOUTH EVERY MORNING Oral for 30 Days Active Vitamin C 500MG 2 grams ORAL daily 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 Problem Essential hypertension (29688910) Unspecified essential hypertension (401.9) Active confirmed Problem Menopausal symptom (38101522) Symptomatic menopausal or female climacteric states (627.2) Active confirmed Problem Disorder of bone and articular cartilage (disorder) (082459080) Disorder of bone and cartilage, unspecified (733.90) Active confirmed Problem Postmenopausal atrophic vaginitis (36906094) Postmenopausal atrophic vaginitis (N95.2) Active confirmed Problem Age-related osteoporosis (366857659) Age-related osteoporosis without current pathological fracture (M81.0) Active confirmed Problem History of dysplasia of cervix (694800847) Personal history of cervical dysplasia (Z87.410) Active confirmed Problem General examination of patient (215532619) Routine general medical examination at health care facility (V70.0) Active confirmed Diag Problem Gynecological examination normal (962958613745445) Routine gynecological examination (V72.31) Active confirmed Problem Screening for malignant neoplasm of colon (877109391) Special screening for malignant neoplasms, colon (V76.51) Active confirmed Major Vital Signs Temperature 97.4 degrees Fahrenheit 06/27/2024 Blood pressure diastolic 70 mm Hg 06/27/2024 Height 5 ft 1.3 in in 06/27/2024 Blood pressure systolic 132 mm Hg 06/27/2024 Weight 114 lbs 06/27/2024 BMI 21.33 kg/m2 06/27/2024 Encounters Encounter Location Date Provider Diagnosis [facility] [employer] [facility] [address] [place] [address] 06/27/2024 Valorie Luu Encounter for gynecological examination (general) (routine) without abnormal findings Z01.419 ; Encounter for screening mammogram for malignant neoplasm of breast Z12.31 ; Age-related osteoporosis without current pathological fracture M81.0 ; Postmenopausal atrophic vaginitis N95.2 and Personal history of cervical dysplasia Z87.410 [facility] [address] [place] [address] 04/29/2024 Valorie Luu Postmenopausal atrophic vaginitis N95.2 [...] Provider Name:Valorie montesinos, 07/03/2025 02:20:00 PM, [address] [facility], [address], [place], [address], Insurance Providers Payer Name Payer Address Payer Phone Subscriber Number Group Number Insured Name Patient Relationship to Insured Coverage Start Date Coverage End Date MEDICARE [address] MARY KANG [id number] TEDDY DENNISON Self - patient is the insured MEDEX [address] [place] [address] [id number] DENTON DENNISONH Self - patient is [...]
--- OUTSIDE RECORDS SUMMARY | 2025-01-19 12:48 | XMS_ITS | Clinical Summary ---
Author Organization [facility] Address [address] [place] [address] Care Team Providers Care Supervisor Cell Maintenance Name Role Phone Tami Francis MD Primary Care Provider [phone] Allergies Active Allergy Reactions Criticality Noted Date Comments Erythromycin Unknown/Patient and Family Unable to Define Medium 10/18/2024 Propoxyphene Unknown/Patient and Family Unable to Define Medium 10/18/2024 Medications Medication Sig Dispensed Refills Start Date End Date Status amLODIPine (NORVASC) 10 MG tabletIndications: Primary hypertension Take 1 tablet (10 mg total) by mouth daily. Do not start before January 30, 2023. 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 Do not start before January 30, 2023. 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 Do not start before January 30, 2023. 90 capsule 01/30/2023 Active guaiFENesin (MUCINEX) 600 MG 12 hr tabletIndications: Seasonal allergies Take 1 tablet (600 mg total) by mouth 2 (two) times a day. 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 30 capsule 01/29/2023 Active LORazepam (ATIVAN) 1 MG tabletIndications: ZAC (generalized anxiety disorder) Take 1 tablet (1 mg total) by mouth nightly. 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 90 capsule 01/29/2023 Active propranolol (INDERAL) 20 MG tabletIndications: Benign essential tremor,ZAC (generalized anxiety disorder) Take 1 [...] capsule by mouth daily. Active nystatin (MYCOSTATIN) 249243 UNIT/ML suspensionIndicati ons:Throat discomfort Take 5 mL (500,000 Units total) by mouth 4 (four) times a day. 100 mL 10/18/2024 Active PANTOprazole (PROTONIX) 40 MG EC tablet 11/05/2024 Active famotidine (PEPCID) 40 MG tabletIndications: Gastroesophageal reflux disease without esophagitis TAKE 1 TABLET BY MOUTH EVERY DAY AT NIGHT 90 tablet 1 01/13/2025 Active famotidine (PEPCID) 40 MG tabletIndications: Gastroesophageal reflux disease without esophagitis Take 1 tablet (40 mg total) by mouth nightly. 30 tablet 3 10/18/2024 Discontinued Active Problems Problem Noted Date Diagnosed Date [...] Encounters Date Type Department Care Team Description 01/13/2025 Refill [facility] [address] [place] [phone] Lyndon Aquino MD Gastroesophageal reflux disease without esophagitis 12/30/2024 Telephone [facility] [address] [place] [address] Lyndon Aquino MD 12/23/2024 Orders Only [facility] [address] [place] [phone] Lyndon Aquino MD Preop examination (Primary Dx) 11/30/2024 2:15 PM EST Office Visit [facility] [address] [place] [phone] Lyndon Aquino MD Neck swelling (Primary Dx); Dysphagia, unspecified type 11/29/2024 Telephone [facility] [address] [place] [phone] Lyndon Aquino MD 11/29/2024 Documentation [facility] [address] [place] [phone] Lyndon Aquino MD 11/22/2024 1:00 PM EST Office Visit [facility] [address] [place] [address] Lyndon Aquino MD Gastroesophageal reflux disease without esophagitis (Primary Dx); Throat discomfort 10/26/2024 Telephone [facility] [address] [place] [address] Lyndon Aquino MD from Last 3 Months Immunizations Name Administration [...] on patient's age to complete this topic Procedures Procedure Name Priority Date/Time Associated Diagnosis Comments CT SOFT TISSUE NECK W/CONTRAST Routine 12/28/2024 10:01 AM EST Neck swelling Dysphagia, unspecified type BLOOD UREA NITROGEN (BUN) Routine 12/26/2024 1:45 PM EST Preop examination CREATININE WITH EGFR Routine 12/26/2024 1:45 PM EST Preop examination from Last 3 Months Results * CT Soft tissue neck w/contrast (12/28/2024 10:01 AM EST) Anatomical Region Laterality Modality Neck Computed Tomogra phy 12/28/2024 10:0 0 AM EST 12/28/2024 10:00 AM EST Impressions 12/29/2024 1:40 PM EST 1. No evidence for soft tissue mass or cervical lymphadenopathy. 2. Multinodular thyroid goiter, as described above. Recommend thyroid ultrasound to further assess. 3. Mild intraglandular ductal dilatation of the submandibular glands without evidence for sialolithiasis or sialoadenitis. 4. Multilevel cervical and upper thoracic degenerative changes as described above with predominantly right-sided neural foraminal stenosis at C5-C6. 5. Emphysematous changes in the lung apices and probable bilateral apical fibrotic changes. 3 mm noncalcified pulmonary nodule left upper lobe. (If this patient is not at elevated risk (no history of smoking or underlying malignancy), then no further followup for this is suggested on the basis of the current Fleischner criteria. ??If the patient is at elevated risk, then a followup CT the chest would be recommended in 12 months.) 6. Partially calcified plaque at the right carotid bulb with less than 50% diameter reduction stenosis by NASCET criteria. Electronically signed by: ??Linden Gifford MD ??12/29/2024 01:40 PM EST RP Thank you for referring your patient to us, Linden Gifford MD [phone] (Electronically Signed - 12/29/2024 13:40) Copy: PATIENT , ?? Narrative 12/29/2024 1:40 PM EST EXAMINATION: CT SOFT TISSUE NECK WITH CONTRAST CLINICAL INFORMATION: 74-year-old female with localized swelling, mass and lump in neck. Dysphagia, right-sided neck swelling, submandibular swelling. Self-reported feeling lump on right side with swallowing. ?? COMPARISON: None available. ? TECHNIQUE: Following the administration of 100 mL of Omnipaque 300 intravenous contrast, helical imaging was performed in the axial plane with generation of coronal and sagittal reformatted images. This CT examination was performed using dose optimization techniques as appropriate, variously including the following: *Automated exposure control *Adjustment of mA and/or kV according to patient size (this includes techniques or standardized protocols for targeted exams where dose is matched to indication/reason for exam; i.e. extremities or head) *Use of iterative reconstruction technique DLP: 415.35 mGy.cm FINDINGS: Skull Base: The bony skull base and visualized calvarium appear grossly intact. Limited assessment of the visualized intracranial and orbital soft tissue structures is grossly unremarkable. The visualized mastoids, middle ear cavities and sinonasal cavity are clear. Suprahyoid Neck: The visceral spaces are smoothly contoured without nodularity or abnormal enhancement. The retropharynx and prevertebral soft tissues appear unremarkable. The sales developer and parapharyngeal spaces appear symmetric and within normal limits. The parotid glands are normal in texture and enhance normally. There is some volume loss involving the left parotid gland. Allowing for dental amalgam artifact in the oral cavity, the visualized oral tongue, base of the tongue and floor of the mouth structures appear within normal limits with a normal appearance to the lingual and buccal spaces. The submandibular glands are normal in morphology and enhance normally. There is minimal intraglandular ductal dilatation of the submandibular glands. No evidence for sialolithiasis. Small, normal-sized, nonpathologic-appearing bilateral submandibular space and submental lymph nodes are noted with small, nonenlarged bilateral IJ chain lymph nodes. The suprahyoid epiglottis and vallecula appear smoothly contoured. Infrahyoid Neck: The hypopharynx and larynx are grossly unremarkable. The thyroid gland is enlarged with numerous partially calcified and noncalcified nodules in both thyroid lobes and within the isthmus, with the largest of these measuring 1.6 cm on the right. Recommend thyroid ultrasound to further assess. There is no significant encroachment on the subglottic airway. Posterior extension of the enlarged left thyroid lobe extends into the left tracheoesophageal groove to abut the left side of the esophagus. No cervical lymphadenopathy. Vascular: There is opacification of the major arterial and venous structures in the neck. There is partially calcified plaque at the right carotid bulb with less than 50% diameter reduction stenosis by NASCET criteria. Upper Chest: Limited assessment of the visualized lung parenchyma in the expiratory phase demonstrates emphysematous changes bilaterally and probable bilateral apical fibrotic changes. Dependent atelectasis noted in the superior segment of the right lower lobe. 3 mm noncalcified pulmonary nodule in the left upper lobe on image 444 of series 1001. Left coronary calcifications noted. Mild substernal extension of the enlarged thyroid gland noted. Skeletal: There is lordotic reversal centered at C5-C6 with mild anterolisthesis at the levels between C2-C3 and C4-C5 inclusive. Severe disc space narrowing with ejqj-[id number] anterior marginal spondylosis is noted at C5-C6 and C6-C7. Upper thoracic DDD and spondylosis also noted. Upper thoracic levoscoliosis noted. Multilevel cervical DJD also noted. Predominantly right-sided neural foraminal stenosis, severe on the right at C5-C6. Bilateral TMJ arthrosis. Other Comments: None. Procedure Note Linden Gifford MD - 12/29/2024 EXAMINATION: CT SOFT TISSUE NECK WITH CONTRAST CLINICAL INFORMATION: 74-year-old female with localized swelling, mass and lump in neck.Dysphagia, right-sided neck swelling, submandibular swelling.Self-reported feeling lump on right side with swallowing. COMPARISON: None available. TECHNIQUE: Following the administration of 100 mL of Omnipaque 300 intravenouscontrast, helical imaging was performed in the axial plane with generationof coronal and sagittal reformatted images. This CT examination was performed using dose optimization techniques asappropriate, variously including the following: *Automated exposure control *Adjustment of mA and/or kV according to patient size (this includestechniques or standardized protocols for targeted exams where dose ismatched to indication/reason for exam; i.e. extremities or head) *Use of iterative reconstruction technique DLP: 415.35 mGy.cm FINDINGS: Skull Base: The bony skull base and visualized calvarium appear grosslyintact. Limited assessment of the visualized intracranial and orbital softtissue structures is grossly unremarkable. The visualized mastoids, middleear cavities and sinonasal cavity are clear. Suprahyoid Neck: The visceral spaces are smoothly contoured withoutnodularity or abnormal enhancement. The retropharynx and prevertebral softtissues appear unremarkable. The sales developer and parapharyngeal spacesappear symmetric and within normal limits. The parotid glands are normal in texture and enhance normally.There is some volume loss involving the left parotid gland. Allowing fordental amalgam artifact in the oral cavity, the visualized oral tongue,base of the tongue and floor of the mouth structures appear within normal limits with a normal appearance tothe lingual and buccal spaces. The submandibular glands are normal inmorphology and enhance normally. There is minimal intraglandular ductaldilatation of the submandibular glands. No evidence for sialolithiasis. Small, normal-sized,nonpathologic-appearing bilateral submandibular space and submental lymphnodes are noted with small, nonenlarged bilateral IJ chain lymph nodes.The suprahyoid epiglottis and vallecula appear smoothly contoured. Infrahyoid Neck: The hypopharynx and larynx are grossly unremarkable. Thethyroid gland is enlarged with numerous partially calcified andnoncalcified nodules in both thyroid lobes and within the isthmus, withthe largest of these measuring 1.6 cm on the right. Recommend thyroid ultrasound to further assess. There is nosignificant encroachment on the subglottic airway. Posterior extension ofthe enlarged left thyroid lobe extends into the left tracheoesophagealgroove to abut the left side of the esophagus. No cervical lymphadenopathy. Vascular: There is opacification of the major arterial and venousstructures in the neck. There is partially calcified plaque at the rightcarotid bulb with less than 50% diameter reduction stenosis by NASCETcriteria. Upper Chest: Limited assessment of the visualized lung parenchyma in theexpiratory phase demonstrates emphysematous changes bilaterally andprobable bilateral apical fibrotic changes. Dependent atelectasis noted inthe superior segment of the right lower lobe. 3 mm noncalcified pulmonary nodule in the left upper lobe onimage 444 of series 1001. Left coronary calcifications noted. Mildsubsternal extension of the enlarged thyroid gland noted. Skeletal: There is lordotic reversal centered at C5-C6 with mildanterolisthesis at the levels between C2-C3 and C4-C5 inclusive. Severedisc space narrowing with jqyn-pb-uloaccwl anterior marginal spondylosisis noted at C5-C6 and C6-C7. Upper thoracic DDD and spondylosis also noted. Upper thoracic levoscoliosis noted.Multilevel cervical DJD also noted. Predominantly right-sided neuralforaminal stenosis, severe on the right at C5-C6. Bilateral TMJarthrosis. Other Comments: None. IMPRESSION: 1. No evidence for soft tissue mass or cervical lymphadenopathy. 2. Multinodular thyroid goiter, as described above. Recommend thyroidultrasound to further assess. 3. Mild intraglandular ductal dilatation of the submandibular glandswithout evidence for sialolithiasis or sialoadenitis. 4. Multilevel cervical and upper thoracic degenerative changes asdescribed above with predominantly right-sided neural foraminal stenosisat C5-C6. 5. Emphysematous changes in the lung apices and probable bilateral apicalfibrotic changes. 3 mm noncalcified pulmonary nodule left upper lobe. (Ifthis patient is not at elevated risk (no history of smoking or underlyingmalignancy), then no further followup for this is suggested on the basis of the current Fleischnercriteria. If the patient is at elevated risk, then a followup CT thechest would be recommended in 12 months.) 6. Partially calcified plaque at the right carotid bulb with less than 50%diameter reduction stenosis by NASCET criteria. Electronically signed by: Linden Gifford MD 12/29/2024 01:40 PM EST RPWorkstation: [id number] Thank you for referring your patient to us, Linden Gifford MD [phone] (Electronically Signed - 12/29/2024 13:40) Copy: PATIENT , Lyndon Aquino MD IMG CT ORDERABLES * BLOOD UREA NITROGEN (BUN) (12/26/2024 1:45 PM EST) Blood Urea Nitrogen (BUN) 15 7 - 25 mg/dL [facility] Blood Blood specimen / Unknown 12/26/2024 1:45 PM EST 12/26/2024 1:46 PM EST Lyndon Aquino MD LAB BLOOD ORDERABLES [facility] [address] [place] [address] * (ABNORMAL) Creatinine with eGFR (12/26/2024 1:45 PM EST) Creatinine 1.07(H) 0.60 - 1.00 mg/dL [facility] Creatinine w/ eGFR 54(L) > OR = 60 mL/min/1.7 3m2 [facility] Blood Blood specimen / Unknown 12/26/2024 1:45 PM EST 12/26/2024 1:46 PM EST Lyndon Aquino MD LAB BLOOD ORDERABLES [facility] [address] [place] [address] from Last 3 Months Advance Directives * Full Code (Latest Code Status on File) Date Activated Date Inactivated Comments 01/23/2023 6:34 PM Care Teams Supervisor Cell Maintenance Relationship Specialty Start Date End Date Tami Francis MD [address] [place] [address] PCP - General Internal Medicine 01/23/23
--- OUTSIDE RECORDS SUMMARY | 2025-01-19 12:48 | XMS_ITS | Clinical Summary ---
Author Organization [facility] Address [address] [place] [address] Care Team Providers Care Technical Account Representative Name Role Phone Pcp, No Primary Care [...] Not on file Insurance MEDICARE PART A&B [facility] MCR SUPPLEMENT Care Teams Technical Account Representative Relationship Specialty [place] [phone] PCP - General 07/31/19
== END 2025-01-19 13:18 | disposition home or self-care (01) ==
LOC: HO.HOP 10:42
PROVIDERS: PCP Internal Medicine; Visit Provider Psychiatry & Neurology Psychiatry
DX: F90.9 Attention-deficit hyperactivity disorder, unspecified type (principal); F41.1 Generalized anxiety disorder; F32.5 Major depressive disorder, single episode, in full remission
CPT/HCPCS: 90833; 99213

== ENCOUNTER → 2025-01-19 10:42 | Outpatient (BNVA) | payer MEDICARE, SELFPAY | PROVIDERS: PCP Internal Medicine; Visit Provider Psychiatry & Neurology Psychiatry | DX: F90.9 Attention-deficit hyperactivity disorder, unspecified type (principal); F41.1 Generalized anxiety disorder; F32.5 Major depressive disorder, single episode, in full remission; Z71.89 Other specified counseling | CPT/HCPCS: 99212 ==

== ENCOUNTER 2025-02-17 05:47 | Day surgery (SDC) | payer MEDICARE, SELFPAY ==
--- OUTSIDE RECORDS SUMMARY | 2025-02-16 15:12 | XMS_ITS | Clinical Summary ---
Author Organization [facility] Facility Address [address] [place] [address] Care Team Providers Care Electronics Worker Name Role Phone Tami Francis MD Primary Care Provider [phone] Allergies No known active allergies Medications amLODIPine [...] patient's age to complete this topic Insurance [facility] MEDICARE [facility] MEDICARE Care Teams Electronics Worker Relationship Specialty Start Date End Date Taim Francis MD [address] [place] [address] PCP - General Internal Medicine 06/13/21
--- OUTSIDE RECORDS SUMMARY | 2025-02-16 15:12 | XMS_ITS | Clinical Summary ---
Author Organization [facility] Address [address] [place] [address] Care Team Providers Care Master Control Technician Name Role Phone Tami Francis MD Primary Care Provider [phone] Allergies Active Allergy Reactions Criticality Noted Date [...] capsule by mouth daily. Active nystatin (MYCOSTATIN) 254323 UNIT/ML suspensionIndications :Throat discomfort Take 5 mL (500,000 Units total) by mouth 4 (four) times a day. 100 mL 10/18/2024 Active PANTOprazole (PROTONIX) 40 MG EC tablet 11/05/2024 Active famotidine (PEPCID) 40 MG tabletIndications:Gas troesophageal reflux disease without esophagitis TAKE 1 TABLET BY MOUTH EVERY DAY AT NIGHT 90 tablet 1 01/13/2025 Active Active Problems Problem Noted Date Diagnosed [...] 06/13/2021 Chronic kidney disease, stage 2 (mild) 07/29/202 1 Low serum creatinine 06/13/2021 Encounters Date Type Department Care Team Description 02/03/2025 Telephone [facility] [address] [place] [address] Lyndon Aquino MD 01/13/2025 Refill [facility] [address] [place] [address] Lyndon Aquino MD Gastroesophageal reflux disease without esophagitis 12/30/2024 Telephone [facility] [address] [place] [address] Lyndon Aquino MD 12/23/2024 Orders Only [facility] [address] [place] [phone] Lyndon Aquino MD Preop examination (Primary Dx) 11/30/2024 2:15 PM EST Office Visit [facility] [address] [place] [address] Lyndon Aquino MD Neck swelling (Primary Dx); Dysphagia, unspecified type 11/29/2024 Telephone [facility] [address] [place] [address] Lyndon Aquino MD 11/29/2024 Documentation [facility] [address] [place] [address] Lyndon Aquino MD 11/22/2024 1:00 PM EST Office Visit [facility] [address] [place] [address] Lyndon Aquino MD Gastroesophageal reflux disease without esophagitis (Primary Dx); Throat discomfort from Last 3 Months Immunizations [...] 11/30/2024 2:18 PM EST Plan of Treatment Upcoming Encounters Date Type Department Care Team (Late st Contact Info) Description 03/02/2025 1:30 PM EDT Office Visit [facility] [address], [place] [address] Lyndon Aquino MD [address] [place] [address] Health Maintenance Due Date Last Done Comments Hepatitis C Virus Screening 1949 Mammogram 1989 Colonoscopy 1994 Zoster (Shingles) Vaccine (1 of 2) 1999 DXA Bone Density (Females,Ages 65 and older) 2014 Influenza Vaccine 06/16/2024 11/27/2016, 07/27/2015 COVID-19 Vaccine ( - 2023-2 5 season) 2024 RSV Vaccine 60 years [...] your patient to us, Linden Gifford MD [phone] (Electronically Signed - 12/29/2024 13:40) Copy: PATIENT [...] and prevertebral soft tissues appear unremarkable. The programming manager and parapharyngeal spaces appear symmetric and within [...] C4-C5 inclusive. Severe disc space narrowing with lghj-wl-dazwluqr anterior marginal spondylosis is noted at C5-C6 [...] retropharynx and prevertebral softtissues appear unremarkable. The programming manager and parapharyngeal spacesappear symmetric and within normal [...] and C4-C5 inclusive. Severedisc space narrowing with vhez-vb-qzyldmkl anterior marginal spondylosisis noted at C5-C6 and [...] Gifford MD 12/29/2024 01:40 PM EST RPWorkstation: [id number] Thank you for referring your patient to us, Linden Gifford MD [phone] (Electronically Signed - 12/29/2024 13:40) Copy: PATIENT , Lyndon Aquino MD IMG CT ORDERABLES * BLOOD UREA NITROGEN (BUN) (12/26/2024 1:45 PM EST) Blood Urea Nitrogen (BUN) 15 7 - 25 mg/dL [facility] Blood Blood specimen / Unknown 12/26/2024 1:45 PM EST 12/26/2024 1:46 PM EST Lyndon Aquino MD LAB BLOOD ORDERABLES Performing Organization Address City/[facility]/ZIP Co de Phone Number [facility] [address] [place] [address] * (ABNORMAL) Creatinine with eGFR (12/26/2024 1:45 PM EST) Creatinine 1.07(H) 0.60 - 1.00 mg/dL [facility] Creatinine w/ eGFR 54(L) > OR = 60 mL/min/1.7 3m2 [facility] Blood Blood specimen / Unknown 12/26/2024 1:45 PM EST 12/26/2024 1:46 PM EST Lyndon Aquino MD LAB BLOOD ORDERABLES [facility] [address] [place] [address] from Last 3 Months Advance Directives * Full Code (Latest Code Status on File) Date Activated Date Inactivated Comments 01/23/2023 6:34 PM Care Teams Master Control Technician Relationship Specialty Start Date End Date Tami Francis MD [address] [place] [address] PCP - General Internal Medicine 01/23/23
--- OUTSIDE RECORDS SUMMARY | 2025-02-16 15:12 | XMS_ITS | Patient Health Record ---
Author Organization [facility] Address [address] [place] [address] Care Team Providers Care Marine Drafter Name Role Phone YASMANY ARCE M.D. Primary Care Provider Valorie Campos Unavailable [phone] Allergies Allergen (clinical drug ingredient) Drug/Non Drug Allergy documented on EMR Reaction Allergy Type Onset Date Status DARVON Unknown Drug Allergy Active erythromycin ERYTHROMYCIN Unknown Drug Allergy A ctive Results Component Value Reference Range Notes [id number] IGP No Culture 30 Plus Reviewed date:07/01/2024 08:28:45 AM Interpretation: Performing Lab:[facility] [place], [address], [address], [place], Phone - [phone], Director - [facility] Notes/Report: Clinical Information:Vaginal/Cervical, LMP: Men o [id number] Dates / Results....03/16/23 ASCUS, Neg HPV Other..............Post Menopausal No. of containers..01 ThinPrep Vial DIAGNOSIS: NEGATIVE FOR IN TRAEPITHELIAL LESION OR MALIGNANCY. Specimen adequacy: Satisfact ory for evaluation. No endocervical component is identified. Clinician provided ICD10: Z0 1.419 Performed by: Josue white, Account Support Specialist ([facility] [place]) . . Note: The Pap smear is [...] Theresa Bas[address], [address], [place], Phone - [phone], Director - [facility] Notes/Report: Clinical Information:Vaginal/Cervical, LMP: Men o [id number] Dates / Results....03/16/23 ASCUS, Neg HPV Other..............Post [...] Active Multivitamins 1 ORAL daily for -3 [facility] 01/20/2012 Active amLODIPine Besylate 5MG 1 ORAL daily for -3 [facility] NORVASC 0 06/28/2012 Active Yuvafem 10 MCG 1 tablet Vaginal TWICE A WEEK for 90 days 03/16/2023 Active Losartan Potassium 50 MG Oral for 90 Days Active Vitamin E 400 UNIT 1 capsule Orally Once a day for 30 day(s) Active Calcium-D 600MG 1 ORAL daily for -3 [facility] 01/20/2012 Active Armodafinil 150 MG TAKE ONE TABLET BY MOUTH EVERY MORNING Oral for 30 Days Active Vitamin C 500MG 2 grams ORAL daily [facility] 04/24/2014 Active diazePAM 5 MG Oral [...] I disorder, most recent episode depressed (disorder) (56081134) Bipolar I disorder, most recent episode (or current) depressed, unspecified (296.50) Active confirmed Problem 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 confirmed Problem Essential hypertension (90169461) Unspecified essential hypertension (401.9) Active confirmed Problem Menopausal symptom (69484107) Symptomatic menopausal or female climacteric states (627.2) Active confirmed Problem Disorder of bone and articular cartilage (disorder) (084600665) Disorder of bone and cartilage, unspecified (733.90) Active confirmed Problem Postmenopausal atrophic vaginitis (38780106) Postmenopausal atrophic vaginitis (N95.2) Active confirmed Problem Age-related osteoporosis (382908255) Age-related osteoporosis without current pathological fracture (M81.0) Active confirmed Problem History of dysplasia of cervix (213575093) Personal history of cervical dysplasia (Z87.410) Active confirmed Problem General examination of patient (755072413) Routine general medical examination at health care facility (V70.0) Active confirmed Diag Problem Gynecological examination normal (386904243659333) Routine gynecological examination (V72.31) Active confirmed Problem Screening for malignant neoplasm of colon (370384539) Special screening for malignant neoplasms, colon (V76.51) Active confirmed Major Vital Signs Temperature 97.4 degrees Fahrenheit 06/27/2024 Blood pressure diastolic 70 mm Hg 06/27/2024 Height 5 ft 1.3 in in 06/27/2024 Blood pressure systolic 132 mm Hg 06/27/2024 Weight 114 lbs 06/27/2024 BMI 21.33 kg/m2 06/27/2024 Encounters Encounter Location Date Provider Diagnosis [facility] [address] [place] [address] 06/27/2024 Valorie Luu Encounter for gynecological examination (general) (routine) without abnormal findings Z01.419 ; Encounter for screening mammogram for malignant neoplasm of breast Z12.31 ; Age-related osteoporosis without current pathological fracture M81.0 ; Postmenopausal atrophic vaginitis N95.2 and Personal history of cervical dysplasia Z87.410 [facility] [address] [place] [address] 04/29/2024 Valorie Luu Postmenopausal atrophic vaginitis N95.2 [...] Provider Name:Valorie montesinos, 07/03/2025 02:20:00 PM, [address], [address], [place], [address], Insurance Providers Payer Name Payer Address Payer Phone Subscriber Number Group Number Insured Name Patient Relationship to Insured Coverage Start Date Coverage End Date MEDICARE [address] MARY KANG [id number] [phone] [id number] TEDDY DENNISON Self - patient is the insured MEDEX [address] [place] [address] [id number] DENTON DENNISONH Self - patient is [...]
--- OUTSIDE RECORDS SUMMARY | 2025-02-16 15:12 | XMS_ITS | Continuity of Care Document ---
Author Organization [facility] Address [address] [place] [address] Phone [phone] Care Team Providers Care Hand Compositor Name Role Phone Tami Francis M.D. Care Team Information Receiv er [phone] Problems Active Problems Provider Date Attention deficit [...] SIG Qnty Indications Order ing Provider Date Vlhfcwgm7hf Tablets Take 1/2 Tab Every Morning, 1/2 Tab Afternoon, 1 Tab Bedtime as Needed Unknown Quetiapine Uehkkqkm98tq Tablets Take 1 Tablet AT Bedtime, 1/2-1 Daily as Needed For Obsessional Thinking Unknown Gllsxpdocog376al Tablets Take One Tablet By Mouth Every Morning Unknown Bupropion Hydrochloride ER (XL)150mg Tablets ER 24HR Take 1 Tablet By Mouth Every Day Unknown Amlodipine Eftgofak34ak Tablets Take 1 Tablet By Mouth Every Day Tami Francis M.D. Tanpdgecre14nh Tablets Take 1 Tablet By Mouth Every Day Unknown Vitamin U7810ia Tablets 1 by mouth every day Unknown Calcium 2459493(600Ca) mg Tablets 1 by mouth twice a day Unknown Npggrw33ym Tablets Unknown 0 Vital Signs Date Vital Result Comment 12/16/2024 1:14pm BP Systolic 126 mmHg BP Diastolic 70 mmHg Heart Rate 90 /min Height 61 inches 5'1 Weight 112.12 lb BMI (Body Mass Index) 21.2 kg/m2 Results Test Acquired Date Facility Test Result H/L Range Note TSH 12/16/2024 [facility] TSH 0.393 uIU/mL Low 0.450-4. 500 Thyroxine (T4) Free, Direct 12/16/2024 [facility] Thyroxine (T4) Free, Direct 1.10 ng/dL 0.82-1.7 7 Triiodothyronine (T3), Free 12/16/2024 [facility] Triiodothyronine (T3), Free 3.8 pg/mL 2.0-4.4 Thyrotropin Receptor Ab, Serum 08/11/2024 [facility] Thyrotropin Receptor Ab, Serum TNP IU/L 1 TSH 08/11/2024 [facility] TSH 0.538 uIU/mL 0.450-4. 500 Thyroxine (T4) Free, Direct 08/11/2024 [facility] Thyroxine (T4) Free, Direct 1.09 ng/dL 0.82-1.7 7 Triiodothyronine (T3), Free 08/11/2024 [facility] Triiodothyronine (T3), Free 3.7 pg/mL 2.0-4.4 Request Problem 08/11/2024 [facility] Request Problem TNP 2 TSH+Free T4 07/04/2024 [facility] TSH 0.064 uIU/mL Low 0.450-4. 500 T4,Free(Direct) 0.91 ng/dL 0.82-1.7 7 Triiodothyronine (T3), Free 07/04/2024 [facility] Triiodothyronine (T3), Free 3.6 pg/mL 2.0-4.4 Thyrotropin Receptor Ab, Serum 07/04/2024 [facility] Thyrotropin Receptor Ab, Serum <1.10 IU/L 0.00-1.7 5 TSH Rfx on Abnormal to Free T4 06/15/2024 [facility] TSH RFX On Abnormal To Free T4 0.156 uIU/mL Low 0.450-4. 500 T4,Free (Direct) 0.92 ng/dL 0.82-1.7 7 Thyroid Peroxidase (Tpo) Ab 06/15/2024 [facility] Thyroid Peroxidase (Tpo) Ab 11 IU/mL 0-34 1 Test not performed. Specimen not received at refrigerated temperature. 2 Test not performed. Specimen not received at refrigerated temperature. TEST: [id number] Thyrotropin Receptor Ab, Serum Panel: [id number] Medical Devices Description No Information Available Encounters [...]
--- OUTSIDE RECORDS SUMMARY | 2025-02-16 15:12 | XMS_ITS ---
Author Organization [facility] Address [address] [place] [address] Care Team Providers Care Carpentry Specialist Name Role Phone YASMANY ARCE M.D. Primary Care Provider Valorie Campos [phone] Allergies Allergen (clinical drug ingredient) Drug/Non Drug Allergy documented on EMR Reaction Allergy Type Onset Date Status DARVON Unknown Drug Allergy Active erythromycin ERYTHROMYCIN Unknown Drug Allergy A ctive Results Component Value Reference Range Notes [id number] IGP No Culture 30 Plus Reviewed date:07/01/2024 08:28:45 AM Interpretation: Performing Lab:[facility] [place], [address], [address], [place], Phone - [phone], Director - [facility] Notes/Report: Clinical Information:Vaginal/Cervical, LMP: Men o [id number] Dates / Results....03/16/23 ASCUS, Neg HPV Other..............Post Menopausal No. of containers..01 ThinPrep Vial DIAGNOSIS: NEGATIVE FOR IN TRAEPITHELIAL LESION OR MALIGNANCY. Specimen adequacy: Satisfact ory for evaluation. No endocervical component is identified. Clinician provided ICD10: Z0 1.419 Performed by: Josue white Yarn Comber ([facility]) . . Note: [...] Theresa [address], [address], [place], Phone - [phone], Director - [facility] Notes/Report: Clinical Information:Vaginal/Cervical, LMP: Men o [id number] Dates / Results....03/16/23 ASCUS, Neg HPV Other..............Post Menopausal No. 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, Annual CREATIVE LEAD Physical 60-85+ Medications Medication SIG (Take, Route, Frequency, Duration) Notes Start Date End Date Status Yuvafem 10 MCG 1 tablet Vaginal TWICE A WEEK for 90 days 06/27/2024 Active Yuvafem 10 MCG 1 tablet Vaginal TWICE A WEEK for 90 days 03/16/2023 Active Losartan Potassium 50 MG Oral for 90 Days Active Calcium-D 600MG 1 ORAL daily for -3 [facility] 01/20/2012 Active Multivitamins 1 ORAL daily for -3 [facility] 01/20/2012 Active Vitamin E 400 UNIT 1 capsule Orally Once a day for 30 day(s) Active Armodafinil 150 MG TAKE ONE TABLET BY MOUTH EVERY MORNING Oral for 30 Days Active Vitamin C 500MG 2 grams ORAL daily [facility] 04/24/2014 Active diazePAM 5 MG Oral for 30 Days Active Trintellix 10 MG TAKE 1 TABLET BY MOUTH EVERY DAY Oral for 90 Days Active amLODIPine Besylate 5MG 1 ORAL daily for -3 [facility] NORVASC 0 06/28/2012 Active Social History [...] 06/27/2024 Encounters Encounter Location Date Provider Diagnosis [address] [place] [address] 06/27/2024 Valorie Luu Encounter for gynecological examination [...] Provider Name:Valorie montesinos, 07/03/2025 02:20:00 PM, [address], [address], [place], [address], Progress Notes * DENTON DENNISONHDOB:[birth year] (73 yo F)Acc No.[id number]:06/27/2024 PROGRESS NOTES Patient:?TEDDY DENNISON Appointment Provider:?Valorie montesinos M.D. :1950???Age:73 Y???Sex:Female D ate:06/27/2024 Address:[address] [place] [address] Pcp:YASMANY ARCE M.D. Subjective: * Chief Complaints: * ???HR MEDICARE PEAnnual CREATIVE LEAD Physical 60-85+ * HPI: ???New/Follow-up Patient Consult:? [...] adequate calcium via diet and supplementation ?Significant CREATIVE LEAD problems:?no significant brick or block maker symptoms or problems * ROS:?general:?no?chest pain.?no?palpitations.?no?headache.?no?cough.?no?shortness of breath.?no?fever.?no?unexplained weight loss.?no?nausea/vomiting.?no?change in bowel movements.?no blood in stool.?no?genitourinary complaints.?no?skin complaints.? * Medical History:? 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 ?Travel outside of the [place]: no. ???Drug/Alcohol:?AUDIT-C (Standard)?Did you have a [...] 1 ORAL daily , [facility] 10 MCG Tablet 1 tablet Vaginal TWICE A WEEK Losartan Potassium 50 MG Tablet Oral Taking amLODIPine Besylate 5MG 90 1 ORAL daily , Notes to Pharmacist: [facility] NORVASCTaking Trintellix 10 MG Tablet TAKE 1 TABLET BY MOUTH EVERY DAY Oral Taking Multivitamins 30 1 ORAL daily , Notes to Pharmacist: [facility] Vitamin C 500MG 60 2 grams ORAL daily , Notes [facility] Pharmacist: [facility] diazePAM 5 MG Tablet Oral Taking Armodafinil 150 MG Tablet TAKE ONE TABLET BY MOUTH EVERY MORNING Oral Taking Vitamin E 400 UNIT Capsule 1 capsule Orally Once a day Taking Calcium-D 600MG 1 ORAL daily , Notes to Pharmacist: [facility] Yuvafem 10 MCG Tablet 1 tablet Vaginal TWICE A WEEK Taking Losartan Potassium 50 MG Tablet Oral DiscontinuedPROzac 40MG 30 2 capsule ORAL every morning , Notes to Pharmacist: [facility]sa[facility]ANIALithium Carbonate 300MG 90 1 ORAL Once a day , Notes to Pharmacist: [facility] HCl 10 MG Tablet (Schedule II [...] ORAL every morning , Notes to Pharmacist: [facility]-Discontinued [place] Carbonate 300MG 90 1 ORAL Once a day , Notes to Pharmacist: [facility] Methylphenidate HCl 10 MG Tablet (Schedule [...] * Images: Billing Information: * Visit Code:? 19081 Preventive Care Est Pt. Age 65 and over. * Procedure Codes:? * Sign off status: Completed true * Appointment Provider:?Valorie Luu M.D. Date:?06/27/2024 Generated for Uri rogers/Charis/Aritting on:?02/16/2025 03:12 PM EDT History and Physical Notes * HPI (History [...] ate calcium via diet and supplementation Significant CREATIVE LEAD problems:: n o significant brick or block maker symptoms or problems Examination Category Sub-Category Detail [...]
--- OUTSIDE RECORDS SUMMARY | 2025-02-16 15:12 | XMS_ITS | Clinical Summary ---
Author Organization [facility] Address [address] [place] [address] Care Team Providers Care Back Order Clerk Name Role Phone Pcp, No Primary Care [...] Not on file Insurance MEDICARE PART A&B [facility]CR SUPPLEMENT Care Teams Back Order Clerk Relationship Specialty [place] [phone] PCP - General 07/31/19
--- OUTSIDE RECORDS SUMMARY | 2025-02-16 15:13 | XMS_ITS ---
Author Organization [facility] Address [address] [place] [address] Care Team Providers Care Leather Crafter Name Role Phone YASMANY ARCE M.D. Primary Care Provider Valorie Campos [phone] Allergies Allergen (clinical drug ingredient) Drug/Non Drug Allergy documented on EMR Reaction Allergy Type Onset Date Status DARVON Unknown Drug Allergy Active erythromycin ERYTHROMYCIN Unknown Drug Allergy A ctive REASON FOR VISIT HR MEDICARE PE Encounters Encounter Location Date Provider Diagnosis [facility] [address] [place] [address] 03/23/2024 Valorie Luu Plan Of Treatment Next Appt Details Provider Name:Valorie montesinos, 07/03/2025 02:20:00 PM, [address], [address], [place], [address], Progress Notes * DENTON DENNISONHDOB:[birth year] (74 yo F)Acc No.[id number]:03/23/2024 PROGRESS NOTES Patient:?CHARITY DENNISONORAH Appointment Provider:?Valorie montesinos M.D. :1950???Age:73 Y???Sex:Female D ate:03/23/2024 Address:[address] [place] [address], [facility] Pcp:YASMANY ARCE M.D. Subjective: * Chief Complaints: [...] on cytologic smear of cervix (ASC-US). 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 Date:?03/23/2024 Generated for Uri rogers/Charis/Aritting on:?02/16/2025 03:12 PM EDT
--- OUTSIDE RECORDS SUMMARY | 2025-02-16 15:13 | XMS_ITS ---
Author Organization [facility] Address [address] [address] Care Team Providers Care Residence Supervisor Name Role Phone YASMANY ARCE M.D. Primary Care Provider Jose Luu Valorierios Osullivan [phone] REASON FOR VISIT RX REFILL Medications Medication SIG (Take, Route, Fr equency, Duration) Notes Start Date End Date Status Yuvafem 10 MCG 1 tablet Vaginal TWI CE A WEEK for 90 days 03/16/2023 Active Encounters Encounter Location Date Provider Diagnosis [facility] [address] [address] 04/29/2024 Valorie Luu Postmenopausal atrophic vaginitis N95.2 [...] Name:Valorie Eleonora montesinos, 07/03/2025 02:20:00 PM, [address] [facility] [address] [facility], [address], [place], [address], Progress Notes * DENTON DENNISONHDOB:[birth year] (73 yo F)Acc No.[id number]:04/29/2024 Patient:?DENTON DENNISONH :1950???Age:73 Y???Sex:Female Address:[address] [place] [address], , [place], [address] * Refills? Refill Yuvafem Tablet, 10 MCG, Vaginal, 24 Tablet, 1 tablet, TWICE A WEEK, 90 days, Refills=0 * true * Date:? Generated for Uri rogers/Charis/Aritting on:?02/16/2025 03:12 PM EDT
[2025-02-17 06:20] VITALS: BP 157/72; PULSE 95; RESP 15; TEMP 36.1; O2SAT 99; BMI 21.7
--- NOTE | 2025-02-17 07:27 | MHC.SHP ---
Pre-Procedural Eval Section A - 24 Hr Update-Section A only Date of Service: 02/17/25 The patient is an INPATIENT: No Changes since office visit: Yes Cold of Flu in the past 2 weeks, Yes New Medical Problems, Yes Changes in Medication and Yes Patient answered all questions The patient has been examined within 24 hours of the surgical procedure. The History & Physical has been completed within 30 days and I have reviewed it.: No Section B - Complete if H&P > 30 days Chief Complaint: Major depressive disorder, recurrent, severe with Details of Present Illness: relapse with depressive sx no new medical concerns Relevant Family History (Specify if Yes): No Relevant Social History: None Present Medications: see Short Stay Collaborative assessment Medical History: No relevant PMH History of Previous Operations: Relevant previous surgery/procedure and date(s) (ect) Allergies: Allergies Allergy/AdvReac Type Severity Reaction Status Date / Time No Known Allergies Allergy Verified 10/28/24 07:13 Review of Systems Sugical H&P ROS: Negative: Cardiovascular, Respiratory, Neurological, Hem-Onc, Allergic/Immunologic, Gastrointestinal, Genitourinary, Musculoskeletal, Integumentary and Endocrine and Yes, Specify: Psychiatric (inc depressive sx) and Eyes/Ears/Nose/Throat (inc secretions ongoing) Exam Surgical H&P Exam: Normal: Heart (rr no m), Normal: Lungs (clear), Normal: Extremities and Normal: Neurological Plan Diagnosis/Plan: Unchanged I have reviewed the history and physical and performed a pertinent physical examination on my patient. No changes have occurred unless specified. Time Spent With Patient Time: Total time managing care of this patient today ____ minutes.
--- NOTE | 2025-02-17 07:29 | HO.ECTPROC ---
ECT Procedure Note Diagnosis/Treatment Date of Service: 02/17/25 Diagnosis: Bipolar disorder Previous ECT Date: 01/02/25 Treatment: Maintenance Interval Clinical Notes: Patient seen in psychiatric follow-up. Patient has been increasingly depressed over the past couple weeks some of the stress that trigger this relates to her son being in legal trouble and Khalida. Patient Seroquel increased to 50 mg discussed with patient again maintenance treatment her last treatment had been approximately 6 weeks ago. Patient completed treatment without difficulty consider follow-up treatment next week depending on response Time: Total time managing care of this patient today _30___ minutes. ECT Settings Device: THYMATRON DGx Electrode Placement: Right Unilateral Program/Pulse Width: 0.50 Energy Percent: 100 Seizure Duration By EEG (in seconds): 23 (seizure activity noted until 18s) Medications Administration Muscle Relaxant: Succinylcholine (80) Ancillary Medications Anti-emetics: Zofran - Pre ECT Airway Management Airway Management: Bag Mask Ventilation Treatment Recommendations Notes: f/u 1 wk consider bifrontal right temporal left frontal Pt Tolerated Procedure w/o Issue: Yes
[2025-02-17 07:45] VITALS: BP 158/75; PULSE 83; RESP 18; TEMP 36.7; O2SAT 97
[2025-02-17 07:50] VITALS: BP 133/72; PULSE 79; RESP 18; O2SAT 98
[2025-02-17 07:55] VITALS: BP 133/72; PULSE 74; RESP 18; O2SAT 97
--- NOTE | 2025-02-17 07:55 | HO.ANESPROP2 ---
HPI - Anesthesia Eval Consult details Narrative: 74 yo female patient for ECT PMFSH Active Problems Active Problems: All Active Problems Pre-op evaluation (Acute) Thyroid nodule (Acute) Major depressive disorder in partial remission (Acute) Delirium in remission (Acute) Major depressive disorder, recurrent, severe with psychotic features (Acute) Footdrop (Acute) Major depressive disorder, recurrent severe without psychotic features (Acute) Personality disorder (Acute) Organic catatonia (Acute) Abnormal EKG (Acute) Odynophagia (Acute) Paranoia (Acute) Dysphagia (Acute) Serotonin syndrome (Acute) Ataxia (Acute) Tremors of nervous system (Acute) Major depression in full remission (Acute) Memory deficit (Acute) ADHD (attention deficit hyperactivity disorder) (Acute) ZAC (generalized anxiety disorder) (Acute) Depression (Acute) Acute bacterial conjunctivitis of both eyes (Acute) Hypercalcemia (Acute) Hypothyroidism (Acute) Leukocytosis (Acute) Hypertension (Chronic) Past Medical History Medical History Pre-op evaluation Urinary tract infection Depression Hypothyroidism ZAC (generalized anxiety disorder) Hypertension ADHD (attention deficit hyperactivity disorder) Family History Family History Other No pertinent family history Family history of problems with anesthesia: No Surgical History Surgical History H/O thumb surgery H/O cone biopsy of cervix History of Problems with Anesthesia: No Social History Social History Household Members: Spouse Household Members Other:: And two cats. Housing: House Do you presently have visiting nurse or other home services: No Unable to assess alcohol history related to: Unknown Alcohol intake: never Patient Tobacco Use Status: Never used Tobacco Tobacco use type: Cigarette Years Smoked: 20 e-Cigarette/Vaping Use: Never Used Second Hand Smoke Exposure: No Substance Use Type: Former Substance User and Marijuana Advance Directives: No Advance Directives Information Provided: Yes service: No Sexual orientation: Straight/Heterosexual Meds Allergies Allergy/AdvReac Type Severity Reaction Status Date / Time No Known Allergies Allergy Verified 10/28/24 07:13 Active Medications: Current Medications Lactated Ringer's (Lr) 1,000 mls @ 50 mls/hr IVCONT .Q20H NORBERTO Scopolamine (Scopolamine 1.5 Mg Patch.Td.3) 1.5 mg TRANSDERMA PREOP ONE Stop: 02/17/25 07:01 Home Medications ?Medication ?Instructions ?Recorded ?Confirmed ?Last Taken ?Type fluticasone propionate 50 1 spray intranasal BID 08/27/23 11/03/24 Unknown History mcg/actuation nasal spray,suspension amlodipine 5 mg tablet 10 mg PO DAILY 07/12/24 11/03/24 Unknown History famotidine 40 mg tablet 40 mg PO DAILY 11/03/24 11/03/24 Unknown History Exam Height,Weight and Vital Signs: Height 5 ft 1 in Weight 52.163 kg Last Vital Signs Vital Signs Temp Pulse Resp BP Pulse Ox O2 Del Method 97 F 95 15 157/72 H 99 Room Air 02/17/25 06:20 02/17/25 06:20 02/17/25 06:20 02/17/25 06:20 02/17/25 06:20 02/17/25 06:20 Temp 98.1 F 02/17/25 07:45 Pulse 79 02/17/25 07:50 Resp 18 02/17/25 07:50 BP 133/72 02/17/25 07:50 Pulse Ox 98 02/17/25 07:50 O2 Del Method Nasal Cannula with Capnography 02/17/25 07:50 O2 Flow Rate 2 02/17/25 07:50 Airway Mallampati Class: II (Small mouth) TM Dist: >3cm Neck ROM: Full Loose/Missing/Broken Teeth: No Heart: RRR Lungs: CTAB Assessment and Plan Assessment Anesthesia Assessment: Anesthesia Plan Discussed and Chart Reviewed Final Anesthetic Review Family History of Problems with Anesthesia: No History of Problems with Anesthesia: No NPO: Yes ASA Class: III Final Preanesthetic Review: No Changes in Pt Med Stat, Meds/Allgs Chart Reviewed, Consent Obtained/Reviewed and Anes Risks/Benef Reviewed Patient Risk: Intermediate Procedure Risk: Intermediate Anesthetic Plan Anesthetic Plan: GA Disposition: Standard PACU
[2025-02-17 08:00] VITALS: BP 126/72; PULSE 74; RESP 16; O2SAT 98
[2025-02-17] MEDS: Scopolamine 1.5 MG PATCH.TD.3 TRANSDERMA (08:10)
[2025-02-17 08:15] VITALS: BP 128/51; PULSE 75; RESP 16; TEMP 36.6; O2SAT 97
== END 2025-02-17 08:30 | disposition home or self-care (01) ==
PROVIDERS: PCP Internal Medicine; Visit Provider Psychiatry & Neurology Psychiatry
PROC: (CPT 90870; principal; 2025-02-17 07:30)
DX: F31.9 Bipolar disorder, unspecified (principal); F41.1 Generalized anxiety disorder; F98.8 Other specified behavioral and emotional disorders with onset usually occurring in childhood and adolescence; I10 Essential (primary) hypertension; K21.9 Gastro-esophageal reflux disease without esophagitis; E05.80 Other thyrotoxicosis without thyrotoxic crisis or storm; Z79.899 Other long term (current) drug therapy
CPT/HCPCS: 90870; J0330; J2405

== ENCOUNTER → 2025-02-17 05:47 | Outpatient (BNV) | payer MEDICARE, SELFPAY | PROVIDERS: PCP Internal Medicine; Visit Provider Psychiatry & Neurology Psychiatry | DX: F33.2 Major depressive disorder, recurrent severe without psychotic features (principal) | CPT/HCPCS: 90870 ==

== ENCOUNTER 2025-02-21 13:10 | Outpatient (AMB) | payer MEDICARE, SELFPAY ==
--- OUTSIDE RECORDS SUMMARY | 2025-02-21 16:03 | XMS_ITS | Continuity of Care Document ---
Author Organization [facility] Address [address] [facility] [address] [place] [address] Phone [phone] Care Team Providers Care Ophthalmic Technologist Name Role Phone Tami Francis M.D. Care Team Information Receiv er [phone] Problems Active Problems Provider Date Attention deficit [...] SIG Qnty Indications Order ing Provider Date Bthuoehd1yj Tablets Take 1/2 Tab Every Morning, 1/2 Tab Afternoon, 1 Tab Bedtime as Needed Unknown Quetiapine Bmdvfdyy05pl Tablets Take 1 Tablet AT Bedtime, 1/2-1 Daily as Needed For Obsessional Thinking Unknown Fbavpitaklo768fl Tablets Take One Tablet By Mouth Every Morning Unknown Bupropion Hydrochloride ER (XL)150mg Tablets ER 24HR Take 1 Tablet By Mouth Every Day Unknown Amlodipine Jurkgpwa90mz Tablets Take 1 Tablet By Mouth Every Day Tami Francis M.D. Tnhpjrgoig13tg Tablets Take 1 Tablet By Mouth Every Day Unknown Vitamin L7281kh Tablets 1 by mouth every day Unknown Calcium 9895362(600Ca) mg Tablets 1 by mouth twice a day Unknown Brzles44nb Tablets Unknown 0 Vital Signs Date Vital [...] Specimen not received at refrigerated temperature. TEST: 924882 Thyrotropin Receptor Ab, Serum Panel: 517350 Medical Devices Description No Information Available Encounters [...]
--- OUTSIDE RECORDS SUMMARY | 2025-02-21 16:03 | XMS_ITS | Clinical Summary ---
Author Organization [facility] Facility Address [address] [place] [address] Care Team Providers Care Warehouse Trainer Name Role Phone Tami Francis MD Primary Care Provider [phone] Allergies No known active allergies Medications amLODIPine [...] patient's age to complete this topic Insurance [facility] MEDICARE [facility] MEDICARE Care Teams Warehouse Trainer Relationship Specialty Start Date End Date Tami Francis MD [address] [place] [address] PCP - General Internal Medicine 06/13/21
--- OUTSIDE RECORDS SUMMARY | 2025-02-21 16:03 | XMS_ITS ---
Author Organization [facility] [employer] Address [address] [facility] [address] [place] [address] Care Team Providers Care Director Oracle Database Name Role Phone YASMANY ARCE M.D. Primary Care Provider Valorie Campos [phone] Allergies Allergen (clinical drug ingredient) Drug/Non Drug Allergy documented on EMR Reaction Allergy Type Onset Date Status DARVON Unknown Drug Allergy Active erythromycin ERYTHROMYCIN Unknown Drug Allergy A ctive REASON FOR VISIT HR MEDICARE PE Encounters Encounter Location Date Provider Diagnosis [facility] [employer] [address] [place] [address] 03/23/2024 Valorie Luu Plan Of Treatment Next Appt Details Provider Name:Valorie montesinos, 07/03/2025 02:20:00 PM, [address] [facility], [address], [place], [address], Progress Notes * DENTON DENNISONHDOB:[birth year] (74 yo F)Acc No.[id number]:03/23/2024 PROGRESS NOTES Patient:?CHARITY DENNISONORAH Appointment Provider:?Valorie montesinos M.D. :1950???Age:73 Y???Sex:Female D ate:03/23/2024 Address:[address] [place] [address], [facility] Pcp:YASMANY ARCE M.D. Subjective: * Chief Complaints: [...] cytologic smear of cervix (ASC-US). * Manager Transmission History:?/ Para?2/1.?Sexual activity?currently sexually active.?Last Pap Smear:?03/16/23 [...] Electronic signature of Joyce Luu MD on 02/21/2025 at 04:03 PM EDT Sign off status: Pending * Appointment Provider:?Valorie Luu M.D. Date:?03/23/2024 Generated for Uri rogers/Charis/Aritting on:?02/21/2025 04:03 PM EDT
--- OUTSIDE RECORDS SUMMARY | 2025-02-21 16:03 | XMS_ITS | Clinical Summary ---
Author Organization [facility] Address [address] [place] [address] Care Team Providers Care Ehs Manager Name Role Phone Pcp, No Primary Care [...] Not on file Insurance MEDICARE PART A&B [facility] MCR SUPPLEMENT Care Teams Ehs Manager Relationship Specialty [place] [id number] PCP - General 07/31/19
--- OUTSIDE RECORDS SUMMARY | 2025-02-21 16:03 | XMS_ITS ---
Author Organization [employer] [facility] Address [address] [place] [address] Care Team Providers Care Drum Worker Name Role Phone YASMANY ARCE M.D. Primary Care Provider Valorie Campos [phone] Allergies Allergen (clinical drug ingredient) Drug/Non Drug Allergy documented on EMR Reaction Allergy Type Onset Date Status DARVON Unknown Drug Allergy Active erythromycin ERYTHROMYCIN Unknown Drug Allergy A ctive Results Component Value Reference Range Notes [id number] IGP No Culture 30 Plus Reviewed date:07/01/2024 08:28:45 AM Interpretation: Performing Lab:[facility], Jyoti Basurto, [address], [place], Phone - [phone], Director - [facility] Notes/Report: Clinical Information:Vaginal/Cervical, LMP: Men o [id number] Dates / Results....03/16/23 ASCUS, Neg HPV Other..............Post Menopausal No. of containers..01 ThinPrep Vial DIAGNOSIS: NEGATIVE FOR IN TRAEPITHELIAL LESION OR MALIGNANCY. Specimen adequacy: Satisfact ory for evaluation. No endocervical component is identified. Clinician provided ICD10: Z0 1.419 Performed by: Josue white Deputy Probation Officer ([facility]) . . Note: The Pap smear [...] Theresa Basurto, [address], [place], Phone - [phone], Director - [facility] Notes/Report: Clinical Information:Vaginal/Cervical, LMP: Men o [id number] Dates / Results....03/16/23 ASCUS, Neg HPV Other..............Post Menopausal No. 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+ Medications Medication SIG (Take, Route, Frequency, Duration) Notes Start Date End Date Status Yuvafem 10 MCG 1 tablet Vaginal TWICE A WEEK for 90 days 06/27/2024 Active Yuvafem 10 MCG 1 tablet Vaginal TWICE A WEEK for 90 days 03/16/2023 Active Losartan Potassium 50 MG Oral for 90 Days Active Calcium-D 600MG 1 ORAL daily for -3 [facility] 01/20/2012 Active Multivitamins 1 ORAL daily for -3 [facility] 01/20/2012 Active Vitamin E 400 UNIT 1 capsule Orally Once a day for 30 day(s) Active Armodafinil 150 MG TAKE ONE TABLET BY MOUTH EVERY MORNING Oral for 30 Days Active Vitamin C 500MG 2 grams ORAL daily [facility] 04/24/2014 Active diazePAM 5 MG Oral for 30 Days Active Trintellix 10 MG TAKE 1 TABLET BY MOUTH EVERY DAY Oral for 90 Days Active amLODIPine Besylate 5MG 1 ORAL daily for -3 [facility] NORVASC 0 06/28/2012 Active Social History Tobacco [...] 06/27/2024 Encounters Encounter Location Date Provider Diagnosis [address] [place] [address] 06/27/2024 Valorie Luu Encounter for gynecological examination [...] Provider Name:Valorie montesinos, 07/03/2025 02:20:00 PM, [address] [facility] [facility], [address], [place], [address], Progress Notes * DENTON DENNISONHDOB:[birth year] (73 yo F)Acc No.[id number]:06/27/2024 PROGRESS NOTES Patient:?TEDDY DENNISON Appointment Provider:?Valorie montesinos M.D. :1950???Age:73 Y???Sex:Female D ate:06/27/2024 Address:[address] [place] [address] Pcp:YASMANY ARCE M.D. 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 [...] adequate calcium via diet and supplementation ?Significant CANVAS WORKER APPRENTICE problems:?no significant safety lamp keeper symptoms or problems * ROS:?general:?no?chest pain.?no?palpitations.?no?headache.?no?cough.?no?shortness of breath.?no?fever.?no?unexplained weight loss.?no?nausea/vomiting.?no?change in bowel movements.?no blood in stool.?no?genitourinary complaints.?no?skin complaints.? * Medical History:? * Biscuit Maker History:?/ Para?2/.?Sexual activity?currently sexually active.?Last Pap Smear:?03/16/23 [...] yes, monogamous relationship. ?Travel outside of the [place]: no. ???Drug/Alcohol:?AUDIT-C (Standard)?Did you have a [...] ORAL daily , Notes to Pharmacist: [facility] Association[facility]onyaYuvaf[facility] 10 MCG Tablet 1 tablet Vaginal TWICE A WEEK Losartan Potassium 50 MG Tablet Oral Taking amLODIPine Besylate 5MG 90 1 ORAL daily , Notes to Pharmacist: [facility] AssociationDonya NORVASCTaking Trintellix 10 MG Tablet TAKE 1 TABLET BY MOUTH EVERY DAY Oral Taking Multivitamins 30 1 ORAL daily , Notes to Pharmacist: [facility] AssociationMarisol Vitamin C 500MG 60 2 grams ORAL daily , Notes to Pharmacist: [facility] diazePAM 5 MG Tablet Oral Taking Armodafinil 150 MG Tablet TAKE ONE TABLET BY MOUTH EVERY MORNING Oral Taking Vitamin E 400 UNIT Capsule 1 capsule Orally Once a day Taking Calcium-D 600MG 1 ORAL daily , Notes to Pharmacist: [facility] Yuvafem 10 MCG Tablet 1 tablet Vaginal TWICE A WEEK Taking Losartan Potassium 50 MG Tablet Oral DiscontinuedPROzac 40MG 30 2 capsule ORAL every morning , Notes to Pharmacist: [facility] AssociationTANIALithium Carbonate 300MG 90 1 ORAL Once a day , Notes to Pharmacist: [facility]ethyl[facility]id[facility] HCl 10 MG Tablet (Schedule II Drug) [...] every morning , Notes to Pharmacist: [facility]-Discontinued Jessie Carbonate 300MG 90 1 ORAL Once a day , Notes to Pharmacist: [facility] Methylphenidate HCl 10 MG Tablet (Schedule II [...] * Images: Billing Information: * Visit Code:? 68174 Preventive Care Est Pt. Age 65 and over. * Procedure Codes:? * Sign off status: Completed true * Appointment Provider:?Valorie Luu M.D. Date:?06/27/2024 Generated for Uri rogers/Charis/Aritting on:?02/21/2025 04:02 PM EDT History and Physical Notes * [...] ate calcium via diet and supplementation Significant CANVAS WORKER APPRENTICE problems:: n o significant safety lamp keeper symptoms or problems Examination Category Sub-Category Detail [...]
--- OUTSIDE RECORDS SUMMARY | 2025-02-21 16:03 | XMS_ITS ---
Author Organization [employer] Address [address] [address] Care Team Providers Care Transmission Maintenance Supervisor Name Role Phone YASMANY ARCE M.D. Primary Care Provider Jose Luu Valorierios Osullivan [phone] REASON FOR VISIT RX REFILL Medications Medication SIG (Take, Route, Fr equency, Duration) Notes Start Date End Date Status Yuvafem 10 MCG 1 tablet Vaginal TWI CE A WEEK for 90 days 03/16/2023 Active Encounters Encounter Location Date Provider Diagnosis [facility] [address] [address] 04/29/2024 Valorie Luu Postmenopausal atrophic vaginitis N95.2 [...] Name:Valorie Eleonora montesinos, 07/03/2025 02:20:00 PM, [address], [address], [place], [address], Progress Notes * DENTON DENNISONHDOB:[birth year] (73 yo F)Acc No.[id number]:04/29/2024 Patient:?DENTON DENNISONH :1950???Age:73 Y???Sex:Female Address:[address] [place] [address], , [place], [address] * Refills? Refill Yuvafem Tablet, 10 MCG, Vaginal, 24 Tablet, 1 tablet, TWICE A WEEK, 90 days, Refills=0 * true * Date:? Generated for Uri rogers/Charis/Aritting on:?02/21/2025 04:03 PM EDT
--- OUTSIDE RECORDS SUMMARY | 2025-02-21 16:03 | XMS_ITS | Patient Health Record ---
Author Organization [employer] [facility] Address [address] [place] [address] Care Team Providers Care Contract Associate Manager Name Role Phone YASMANY ARCE M.D. Primary Care Provider Valorie Campos Unavailable [phone] Allergies Allergen (clinical drug ingredient) Drug/Non Drug Allergy documented on EMR Reaction Allergy Type Onset Date Status DARVON Unknown Drug Allergy Active erythromycin ERYTHROMYCIN Unknown Drug Allergy A ctive Results Component Value Reference Range Notes [id number] IGP No Culture 30 Plus Reviewed date:07/01/2024 08:28:45 AM Interpretation: Performing Lab:[facility], [address], [address], [place], Phone - [phone], Director - [facility] Notes/Report: Clinical Information:Vaginal/Cervical, LMP: Men o [id number] Dates / Results....03/16/23 ASCUS, Neg HPV Other..............Post Menopausal No. of containers..01 ThinPrep Vial DIAGNOSIS: NEGATIVE FOR IN TRAEPITHELIAL LESION OR MALIGNANCY. Specimen adequacy: Satisfact ory for evaluation. No endocervical component is identified. Clinician provided ICD10: Z0 1.419 Performed by: Josue white, Content Coordinator ([facility]) . . Note: The Pap smear [...] Theresa Basurto, [address], [place], Phone - [phone], Director - [facility] Notes/Report: Clinical Information:Vaginal/Cervical, LMP: Men o [id number] Dates / Results....03/16/23 ASCUS, Neg HPV Other..............Post [...] Active Multivitamins 1 ORAL daily for -3 [facility] 01/20/2012 Active amLODIPine Besylate 5MG 1 ORAL daily for -3 [facility] NORVASC 0 06/28/2012 Active Yuvafem 10 MCG 1 tablet Vaginal TWICE A WEEK for 90 days 03/16/2023 Active Losartan Potassium 50 MG Oral for 90 Days Active Vitamin E 400 UNIT 1 capsule Orally Once a day for 30 day(s) Active Calcium-D 600MG 1 ORAL daily for -3 [facility] 01/20/2012 Active Armodafinil 150 MG TAKE ONE TABLET BY MOUTH EVERY MORNING Oral for 30 Days Active Vitamin C 500MG 2 grams ORAL daily [facility] 04/24/2014 Active diazePAM 5 MG Oral for [...] I disorder, most recent episode depressed (disorder) (61699455) Bipolar I disorder, most recent episode (or current) depressed, unspecified (296.50) Active confirmed Problem Carcinoma in situ of cervix uteri (70215335) 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 confirmed Problem Essential hypertension (91444186) Unspecified essential hypertension (401.9) Active confirmed Problem Menopausal symptom (18334152) Symptomatic menopausal or female climacteric states (627.2) Active confirmed Problem Disorder of bone and articular cartilage (disorder) (553289858) Disorder of bone and cartilage, unspecified (733.90) Active confirmed Problem Postmenopausal atrophic vaginitis (31732095) Postmenopausal atrophic vaginitis (N95.2) Active confirmed Problem Age-related osteoporosis (021221948) Age-related osteoporosis without current pathological fracture (M81.0) Active confirmed Problem History of dysplasia of cervix (317377220) Personal history of cervical dysplasia (Z87.410) Active confirmed Problem General examination of patient (712184146) Routine general medical examination at health care facility (V70.0) Active confirmed Diag Problem Gynecological examination normal (570225452144323) Routine gynecological examination (V72.31) Active confirmed Problem Screening for malignant neoplasm of colon (595760851) Special screening for malignant neoplasms, colon (V76.51) Active confirmed Major Vital Signs Temperature 97.4 degrees Fahrenheit 06/27/2024 Blood pressure diastolic 70 mm Hg 06/27/2024 Height 5 ft 1.3 in in 06/27/2024 Blood pressure systolic 132 mm Hg 06/27/2024 Weight 114 lbs 06/27/2024 BMI 21.33 kg/m2 06/27/2024 Encounters Encounter Location Date Provider Diagnosis [facility] [email or web address] [place] [address] 06/27/2024 Valorie Luu Encounter for gynecological examination (general) (routine) without abnormal findings Z01.419 ; Encounter for screening mammogram for malignant neoplasm of breast Z12.31 ; Age-related osteoporosis without current pathological fracture M81.0 ; Postmenopausal atrophic vaginitis N95.2 and Personal history of cervical dysplasia Z87.[address] [facility] [address] [place] [address] 04/29/2024 Valorie Luu Postmenopausal atrophic vaginitis N95.2 [...] Provider Name:Valorie montesinos, 07/03/2025 02:20:00 PM, [address], [address], [place], [address], Insurance Providers Payer Name Payer Address Payer Phone Subscriber Number Group Number Insured Name Patient Relationship to Insured Coverage Start Date Coverage End Date MEDICARE [address] MARY KANG [id number] [phone] [id number] TEDDY DENNISON Self - patient is the insured MEDEX [address] [place] [address] [id number] DENTON DENNISONH Self - patient is [...]
--- OUTSIDE RECORDS SUMMARY | 2025-02-21 16:03 | XMS_ITS | Clinical Summary ---
Author Organization [facility] Address [address] [place] [address] Care Team Providers Care Business Operations Manager Name Role Phone Tami Francis MD Primary Care Provider Allergies Active Allergy Reactions Criticality Noted Date [...] capsule by mouth daily. Active nystatin (MYCOSTATIN) 832059 UNIT/ML suspensionIndications :Throat discomfort Take 5 mL [...] Type Department Care Team Description 02/03/2025 Telephone [facility] [address] [place] [address] Lyndon Aquino MD 01/13/2025 Refill [facility] [address] [place] [address] Lyndon Aquino MD Gastroesophageal reflux disease without esophagitis 12/30/2024 Telephone [facility] [address] [place] [address] Lyndon Aquino MD 12/23/2024 Orders Only [facility] [address] [place] [address] Lyndon Aquino MD Preop examination (Primary Dx) 11/30/2024 2:15 PM EST Office Visit [facility] [address] [place] [address] Lyndon Aquino MD Neck swelling (Primary Dx); Dysphagia, unspecified type 11/29/2024 Telephone [facility] [address] [place] [address] Lyndon Aquino MD 11/29/2024 Documentation [facility] [address] [place] [address] Lyndon Aquino MD from Last 3 [...] Description 03/02/2025 1:30 PM EDT Office Visit [facility] [address], [place] [address] Lyndon Aquino MD [address] [place] [address] Health Maintenance Due Date Last Done Comments [...] your patient to us, Linden Gifford MD [phone] (Electronically Signed - 12/29/2024 13:40) Copy: PATIENT [...] and prevertebral soft tissues appear unremarkable. The epilepsy physician and parapharyngeal spaces appear symmetric and within [...] C4-C5 inclusive. Severe disc space narrowing with [id number] anterior marginal spondylosis is noted at C5-C6 [...] retropharynx and prevertebral softtissues appear unremarkable. The epilepsy physician and parapharyngeal spacesappear symmetric and within normal [...] and C4-C5 inclusive. Severedisc space narrowing with [id number] anterior marginal spondylosisis noted at C5-C6 and [...] Gifford MD 12/29/2024 01:40 PM EST RPWorkstation: [id number] Thank you for referring your patient to us, Linden Gifford MD [id number] (Electronically Signed - 12/29/2024 13:40) Copy: PATIENT , Lyndon Aquino MD G CT ORDERABLES * BLOOD UREA NITROGEN (BUN) (12/26/2024 1:45 PM EST) Blood Urea Nitrogen (BUN) 15 7 - 25 mg/dL [employer] Blood Blood specimen / Unknown 12/26/2024 1:45 PM EST 12/26/2024 1:46 PM EST Lyndon Aquino MD LAB BLOOD ORDERABLES [facility] [address] [place] [address] * (ABNORMAL) Creatinine with eGFR (12/26/2024 1:45 PM EST) Creatinine 1.07(H) 0.60 - 1.00 mg/dL [employer] Creatinine w/ eGFR 54(L) > OR = 60 mL/min/1.7 3m2 [employer] Blood Blood specimen / Unknown 12/26/2024 1:45 PM EST 12/26/2024 1:46 PM EST Lyndon Aquino MD LAB BLOOD ORDERABLES [facility] [address] [place] [address] from Last 3 Months Advance Directives * Full Code (Latest Code Status on File) Date Activated Date Inactivated Comments 01/23/2023 6:34 PM Care Teams Business Operations Manager Relationship Specialty Start Date End Date Tami Francis MD [address] [place] [phone] PCP - General Internal Medicine 01/23/23
--- NOTE | 2025-02-23 17:18 | MHC.OFFVISPS ---
Intake Intake Visit Reasons: depression Allergies No Known Allergies Allergy (Verified 10/28/24 07:13) HPI- Psychiatric Chief Complaint: depression HPI Narrative: Patient seen in psychiatric follow-up with her . She has been depressed but remains functioning still going to the [employer] card game. Patient has been on Wellbutrin quetiapine at bedtime no evidence of oral facial dyskinesia patient aware of tardive dyskinesia risks quetiapine has seem to decrease her of anxiety. Patient does have some degree of difficulty with working attention and short-term memory some of this may be related to ECT some of this may be related to when she becomes depressed. Some improvement from last treatment and another treatment scheduled for 3 days from now. The patient has been focused on needing oral surgery also in issues related to her son who had gotten stopped for marijuana intoxication in [place]. Patient's states that patient has been ruminating and exaggerating difficulty of recent issues catastrophizing she finds it hard to not do this Past Psychiatric History: -Pt sees Dr. Shearer in OP setting recent hospitalization at the [facility] Has had often on relapses over the past year and half -Remote hx of IPLOC 12 yrs ago, recent admissions at [facility] since 2020 with at least 4 admissions in the last 2 years Mental Status Exam Mental Status Exam Narrative: Mental Status Exam Narrative: Appearance: Casually dressed Behavior: Cooperative appropriate psychomotor: Within normal limits Speech: Normal volume and prosody Thought proccess tends toward catastrophizing and magnifying Thought content: Focused on feeling depressed issues related to her son and recurrent feelings regarding her throat and mucous Mood: Depressed and anxious Affect: Appropriate to mood constricted SI:denies HI:denies VH/AH:none Delusions: None Insight/judgment: Memory/cog: Mild short-term memory dysfunction some mild attentional problems distracted internally preoccupied Assessment and Plan Assessment & Plan (1) ADHD (attention deficit hyperactivity disorder): Status: Acute Code(s): F90.9 - Attention-deficit hyperactivity disorder, unspecified type (2) ZAC (generalized anxiety disorder): Status: Acute Code(s): F41.1 - Generalized anxiety disorder (3) Major depression in full remission: Status: Acute Code(s): F32.5 - Major depressive disorder, single episode, in full remission Plan Another maintenance treatment scheduled for 3 days from now this has generally been helpful and kicking patient out of depressive episodes. Patient tends to magnify and catastrophizing this has been a longstanding pattern and then this triggers depressive episode. She is working with a therapist. Discussed option of TMS discussed seeing practice and was [facility]. Provide on not an option patient had have a negative reaction to spravato in the past Counseling and coordination of Care Pt. Self Management counseling: Exercise, Maintenance-social rhythm, Behavior activation and Cognitive restructuring Medication management counseling: Effectiveness and Side effects Diagnosis and Prognosis Counseling: Impact of diagnosis on life functions and Problematic behaviors secondary to diagnosis Details-Diagnosis/Prognosis counseling: Patient denies any active self-harming thoughts Details: I spent [40] minutes reviewing the record, seeing the patient and documenting in the medical record. Counseling provided to the patient/caregiver as outlined below. Addressed patient/caregiver concerns regarding current medication regime including effective adherence. Addressed patient/caregiver concerns regarding diagnosis and prognosis including accuracy of diagnosis, prognosis over time, impact of diagnosis. Addressed patient/caregiver concerns regarding impact of recent stressors. [facility] Medical History Pre-op evaluation Urinary tract infection Depression Hypothyroidism ZAC (generalized anxiety disorder) Hypertension ADHD (attention deficit hyperactivity disorder) Surgical History H/O thumb surgery H/O cone biopsy of cervix Family History Other No pertinent family history Social History Household Members: Spouse Household Members Other:: And two cats. 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
== END 2025-02-21 14:00 | disposition home or self-care (01) ==
LOC: HO.HOP 13:10
PROVIDERS: PCP Internal Medicine; Visit Provider Psychiatry & Neurology Psychiatry
DX: F90.9 Attention-deficit hyperactivity disorder, unspecified type (principal); F41.1 Generalized anxiety disorder; F32.5 Major depressive disorder, single episode, in full remission
CPT/HCPCS: 90833; 99213

== ENCOUNTER → 2025-02-21 13:10 | Outpatient (BNVA) | payer MEDICARE, SELFPAY | PROVIDERS: PCP Internal Medicine; Visit Provider Psychiatry & Neurology Psychiatry | DX: F90.9 Attention-deficit hyperactivity disorder, unspecified type (principal); F41.1 Generalized anxiety disorder; F32.5 Major depressive disorder, single episode, in full remission | CPT/HCPCS: 99212 ==

== ENCOUNTER 2025-02-24 05:52 | Day surgery (SDC) | payer MEDICARE, SELFPAY ==
--- OUTSIDE RECORDS SUMMARY | 2025-02-20 06:11 | XMS_ITS ---
Author Organization [facility] Address [address] [facility] [address] [place] [address] Care Team Providers Care Carport Erector Name Role Phone YASMANY ARCE M.D. Primary Care Provider Valorie Campos [phone] Allergies Allergen (clinical drug ingredient) Drug/Non Drug Allergy documented on EMR Reaction Allergy Type Onset Date Status DARVON Unknown Drug Allergy Active erythromycin ERYTHROMYCIN Unknown Drug Allergy A ctive Results Component Value Reference Range Notes [id number] IGP No Culture 30 Plus Reviewed date:07/01/2024 08:28:45 AM Interpretation: Performing Lab:[facility], [address], [address], [place], Phone - [phone], Director - [facility] Notes/Report: Clinical Information:Vaginal/Cervical, LMP: Men o [id number] Dates / Results....03/16/23 ASCUS, Neg HPV Other..............Post Menopausal No. of containers..01 ThinPrep Vial DIAGNOSIS: NEGATIVE FOR IN TRAEPITHELIAL LESION OR MALIGNANCY. Specimen adequacy: Satisfact ory for evaluation. No endocervical component is identified. Clinician provided ICD10: Z0 1.419 Performed by: Josue white Water Quality Specialist ([facility]) . . Note: The Pap smear [...] Theresa [address], [address], [place], Phone - [phone], Director - [facility] Notes/Report: Clinical Information:Vaginal/Cervical, LMP: Men o [id number] Dates / Results....03/16/23 ASCUS, Neg HPV Other..............Post Menopausal No. 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 01/20/2012 Active Multivitamins 1 ORAL daily for -3 [facility] 01/20/2012 Active Vitamin E 400 UNIT 1 capsule Orally Once a day for 30 day(s) Active Armodafinil 150 MG TAKE ONE TABLET BY MOUTH EVERY MORNING Oral for 30 Days Active Vitamin C 500MG [address] [facility] 04/24/2014 Active diazePAM 5 MG Oral for 30 Days Active Trintellix 10 MG TAKE 1 TABLET BY MOUTH EVERY DAY Oral for 90 Days Active amLODIPine Besylate 5MG 1 ORAL daily for -3 [facility] NORVASC 0 06/28/2012 Active Social History [...] 06/27/2024 Encounters Encounter Location Date Provider Diagnosis [address] [place] [address] 06/27/2024 Valorie Luu Encounter for gynecological examination [...] Provider Name:Valorie montesinos, 07/03/2025 02:20:00 PM, [address] [facility], [address], [place], [address], Progress Notes * DENTON DENNISONHDOB:[birth year] (73 yo F)Acc No.[id number]:06/27/2024 PROGRESS NOTES Patient:?TEDDY DENNISON Appointment Provider:?Valorie montesinos M.D. :1950???Age:73 Y???Sex:Female D ate:06/27/2024 Address:[address] [place] [address] Pcp:YASMANY ARCE M.D. 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 * Medical History:? 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 ?Travel outside of the [place]: no. ???Drug/Alcohol:?AUDIT-C (Standard)?Did you have a [...] 1 ORAL daily , [facility]ony[facility] 10 MCG Tablet 1 tablet Vaginal TWICE A WEEK Losartan Potassium 50 MG Tablet Oral Taking amLODIPine Besylate 5MG 90 1 ORAL daily , Notes to Pharmacist: [facility] NORVASCTaking Trintellix 10 MG Tablet TAKE 1 TABLET BY MOUTH EVERY DAY Oral Taking Multivitamins 30 1 ORAL daily , Notes to Pharmacist: [facility]isol Vitamin C 500MG 60 2 grams ORAL daily , Notes to Pharmacist: [facility] diazePAM 5 MG Tablet Oral Taking Armodafinil 150 MG Tablet TAKE ONE TABLET BY MOUTH EVERY MORNING Oral Taking Vitamin E 400 UNIT Capsule 1 capsule Orally Once a day Taking Calcium-D 600MG 1 ORAL daily , Notes to Pharmacist: [facility] Yuvafem 10 MCG Tablet 1 tablet Vaginal TWICE A WEEK Taking Losartan Potassium 50 MG Tablet Oral DiscontinuedPROzac 40MG 30 2 capsule ORAL every morning , Notes to Pharmacist: [facility]urTANIALithium Carbonate 300MG 90 1 ORAL Once a day , [facility] Pharmacist: [facility] 10 MG Tablet (Schedule II [...] ORAL every morning , Notes to Pharmacist: [facility]-Discontinued [place] Carbonate 300MG 90 1 ORAL Once a day , Notes to Pharmacist: [facility] Methylphenidate HCl 10 MG Tablet (Schedule [...] * Images: Billing Information: * Visit Code:? 45294 Preventive Care Est Pt. Age 65 and over. * Procedure Codes:? * Sign off status: Completed true * Appointment Provider:?Valorie Luu M.D. Date:?06/27/2024 Generated for Uri rogers/Charis/Aritting on:?02/20/2025 06:11 AM EDT History and Physical Notes * HPI [...] ate calcium via diet and supplementation Significant LITHOGRAPHIC CAMERA OPERATOR problems:: n o significant automobile upholsterer apprentice symptoms or problems Examination Category Sub-Category Detail [...]
--- OUTSIDE RECORDS SUMMARY | 2025-02-20 06:11 | XMS_ITS | Clinical Summary ---
Author Organization [facility] Facility Address [address] [place] [address] Care Team Providers Care Security Advisor Name Role Phone Tami Francis MD Primary Care Provider [phone] Allergies No known active allergies Medications amLODIPine [...] Colorectal Cancer Screening: Sigmoidoscopy 1998 Influenza Vaccine (Season Ended) 2025 Hepatitis B Vaccine Aged Out No longe r eligible based on patient's age to complete this topic Insurance [facility] MEDICARE [facility] MEDICARE Care Teams Security Advisor Relationship Specialty Start Date End Date Tami Francis MD [address] [place] [address] PCP - General Internal Medicine 06/13/21
--- OUTSIDE RECORDS SUMMARY | 2025-02-20 06:11 | XMS_ITS | Clinical Summary ---
Author Organization [facility] Address [address] [place] [address] Care Team Providers Care Soundscriber Mechanic Name Role Phone Tami Francis MD Primary Care Provider [phone] Allergies Active Allergy Reactions Criticality Noted Date [...] capsule by mouth daily. Active nystatin (MYCOSTATIN) 958852 UNIT/ML suspensionIndications :Throat discomfort Take 5 mL [...] Type Department Care Team Description 02/03/2025 Telephone [facility] [address] [place] [address] Lyndon Aquino MD 01/13/2025 Refill [facility] [address] [place] [address] Lyndon Aquino MD Gastroesophageal reflux disease without esophagitis 12/30/2024 Telephone [facility] [address] [place] [address] Lyndon Aquino MD 12/23/2024 Orders Only [facility] [address] [place] [phone] Lyndon Aquino MD Preop examination (Primary Dx) 11/30/2024 2:15 PM EST Office Visit [facility] [address] [place] [address] Lyndon Aquino MD Neck swelling (Primary Dx); Dysphagia, unspecified type 11/29/2024 Telephone [facility] [address] [place] [address] Lyndon Aquino MD 11/29/2024 Documentation [facility] [address] [place] [address] Lyndon Aquino MD 11/22/2024 1:00 PM EST Office Visit [facility] [address] [place] [address] Lyndon Aquino MD Gastroesophageal reflux disease [...] Description 03/02/2025 1:30 PM EDT Office Visit [facility] [address], [place] [address] Lyndon Aquino MD [address] [place] [address] Health Maintenance Due Date Last Done Comments [...] your patient to us, Linden Gifford MD [id number] (Electronically Signed - 12/29/2024 13:40) Copy: PATIENT [...] and prevertebral soft tissues appear unremarkable. The informatics developer and parapharyngeal spaces appear symmetric and [...] C4-C5 inclusive. Severe disc space narrowing with finb-ya-lfmotgih anterior marginal spondylosis is noted at C5-C6 [...] retropharynx and prevertebral softtissues appear unremarkable. The informatics developer and parapharyngeal spacesappear symmetric and within [...] and C4-C5 inclusive. Severedisc space narrowing with kick-ry-blblxdmo anterior marginal spondylosisis noted at C5-C6 and [...] Gifford MD 12/29/2024 01:40 PM EST RPWorkstation: [id number] Thank you for referring your patient to us, Linden Gifford MD [id number] (Electronically Signed - 12/29/2024 13:40) Copy: PATIENT , Lyndon Aquino MD IMG CT ORDERABLES * BLOOD UREA NITROGEN (BUN) (12/26/2024 1:45 PM EST) Blood Urea Nitrogen (BUN) 15 7 - 25 mg/dL [facility] GVISP 1 Blood Blood specimen / Unknown 12/26/2024 1:45 PM EST 12/26/2024 1:46 PM EST Lyndon Aquino MD LAB BLOOD ORDERABLES Performing Organization Address City/[facility]/ZIP Co de Phone Number [facility] [address] [place] [address] * (ABNORMAL) Creatinine with eGFR (12/26/2024 1:45 PM EST) Creatinine 1.07(H) 0.60 - 1.00 mg/dL [facility] Creatinine w/ eGFR 54(L) > OR = 60 mL/min/1.7 3m2 [facility] Blood Blood specimen / Unknown 12/26/2024 1:45 PM EST 12/26/2024 1:46 PM EST Lyndon Aquino MD LAB BLOOD ORDERABLES [facility] [address] [place] [address] from Last 3 Months Advance Directives * Full Code (Latest Code Status on File) Date Activated Date Inactivated Comments 01/23/2023 6:34 PM Care Teams Soundscriber Mechanic Relationship Specialty Start Date End Date Tami Francis MD [address] [place] [address] PCP - General Internal Medicine 01/23/23
--- OUTSIDE RECORDS SUMMARY | 2025-02-20 06:12 | XMS_ITS ---
Author Organization Total [facility] Address [address] [facility] [address] [place] [address] Care Team Providers Care Machine Silver Stripper Name Role Phone YASMANY ARCE M.D. Primary Care Provider Valorie Campos [phone] Allergies Allergen (clinical drug ingredient) Drug/Non Drug Allergy documented on EMR Reaction Allergy Type Onset Date Status DARVON Unknown Drug Allergy Active erythromycin ERYTHROMYCIN Unknown Drug Allergy A ctive REASON FOR VISIT HR MEDICARE PE Encounters Encounter Location Date Provider Diagnosis [facility] [address] [place] [address] 03/23/2024 Valorie Luu Plan Of Treatment Next Appt Details Provider Name:Valorie montesinos, 07/03/2025 02:20:00 PM, [address] [facility], [address], [place], [address], Progress Notes * DENTON DENNISONHDOB:[birth year] (74 yo F)Acc No.[id number]:03/23/2024 PROGRESS NOTES Patient:?DENNISONCHARITYTEDDY Appointment Provider:?Valorie montesinos M.D. :1950???Age:73 Y???Sex:Female D ate:03/23/2024 Address:[address] [place] [address], [facility] Pcp:YASMANY ARCE M.D. Subjective: * Chief Complaints: [...] on cytologic smear of cervix (ASC-US). * Switchboard And Control Room Operator History:?/ Para?2/1.?Sexual activity?currently sexually active.?Last Pap Smear:?03/16/23 [...] Electronic signature of Joyce Luu MD on 02/20/2025 at 06:12 AM EDT Sign off status: Pending * Appointment Provider:?Valorie Luu M.D. Date:?03/23/2024 Generated for Uri rogers/Charis/Aritting on:?02/20/2025 06:12 AM EDT
--- OUTSIDE RECORDS SUMMARY | 2025-02-20 06:12 | XMS_ITS ---
Author Organization [facility] Address [address] [address] Care Team Providers Care Meat Puller Name Role Phone YASMANY ARCE M.D. Primary Care Provider Jose Luu Valorierios Osullivan [phone] REASON FOR VISIT RX REFILL Medications Medication SIG (Take, Route, Fr equency, Duration) Notes Start Date End Date Status Yuvafem 10 MCG 1 tablet Vaginal TWI CE A WEEK for 90 days 03/16/2023 Active Encounters Encounter Location Date Provider Diagnosis [facility] [address] [address] 04/29/2024 Valorie Luu Postmenopausal atrophic vaginitis N95.2 [...] Name:Valorie Eleonora montesinos, 07/03/2025 02:20:00 PM, [address] [facility], [address], [place], [address], Progress Notes * DENTON DENNISONHDOB:[birth year] (73 yo F)Acc No.[id number]:04/29/2024 Patient:?DENTON DENNISONH :1950???Age:73 Y???Sex:Female Address:[address] [place] [address], , [place], [address] * Refills? Refill Yuvafem Tablet, 10 MCG, Vaginal, 24 Tablet, 1 tablet, TWICE A WEEK, 90 days, Refills=0 * true * Date:? Generated for Uri rogers/Charis/Aritting on:?02/20/2025 06:11 AM EDT
--- OUTSIDE RECORDS SUMMARY | 2025-02-20 06:12 | XMS_ITS | Patient Health Record ---
Author Organization [facility] Address [address] [facility] [address] [place] [address] Care Team Providers Care Picker/Puller Name Role Phone YASMANY ARCE M.D. Primary Care Provider Valorie Campos Unavailable [phone] Allergies Allergen (clinical drug ingredient) Drug/Non Drug Allergy documented on EMR Reaction Allergy Type Onset Date Status DARVON Unknown Drug Allergy Active erythromycin ERYTHROMYCIN Unknown Drug Allergy A ctive Results Component Value Reference Range Notes [id number] IGP No Culture 30 Plus Reviewed date:07/01/2024 08:28:45 AM Interpretation: Performing Lab:[facility], [address], [address], [place], Phone - [phone], Director - [facility] Notes/Report: Clinical Information:Vaginal/Cervical, LMP: Men o [id number] Dates / Results....03/16/23 ASCUS, Neg HPV Other..............Post Menopausal No. of containers..01 ThinPrep Vial DIAGNOSIS: NEGATIVE FOR IN TRAEPITHELIAL LESION OR MALIGNANCY. Specimen adequacy: Satisfact ory for evaluation. No endocervical component is identified. Clinician provided ICD10: Z0 1.419 Performed by: Josue white, Acoustical Tile Patternmaker ([facility]) . . Note: The Pap smear [...] [address], [address], [place], Phone - [phone], Director - [facility] Notes/Report: Clinical Information:Vaginal/Cervical, LMP: Men o [id number] Dates / Results....03/16/23 ASCUS, Neg HPV Other..............Post [...] Active Multivitamins 1 ORAL daily for -3 [facility] 01/20/2012 Active amLODIPine Besylate 5MG 1 ORAL daily for -3 [facility] NORVASC 0 06/28/2012 Active Yuvafem 10 MCG 1 tablet Vaginal TWICE A WEEK for 90 days 03/16/2023 Active Losartan Potassium 50 MG Oral for 90 Days Active Vitamin E 400 UNIT 1 capsule Orally Once a day for 30 day(s) Active Calcium-D 600MG 1 ORAL daily for -3 [facility] 01/20/2012 Active Armodafinil 150 MG TAKE ONE TABLET BY MOUTH EVERY MORNING Oral for 30 Days Active Vitamin C 500MG 2 grams ORAL daily [facility] 04/24/2014 Active diazePAM 5 MG Oral for [...] I disorder, most recent episode depressed (disorder) (08244759) Bipolar I disorder, most recent episode (or current) depressed, unspecified (296.50) Active confirmed Problem 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 confirmed Problem Essential hypertension (06336891) Unspecified essential hypertension (401.9) Active confirmed Problem Menopausal symptom (04912406) Symptomatic menopausal or female climacteric states (627.2) Active confirmed Problem Disorder of bone and articular cartilage (disorder) (188225850) Disorder of bone and cartilage, unspecified (733.90) Active confirmed Problem Postmenopausal atrophic vaginitis (63546651) Postmenopausal atrophic vaginitis (N95.2) Active confirmed Problem Age-related osteoporosis (837870661) Age-related osteoporosis without current pathological fracture (M81.0) Active confirmed Problem History of dysplasia of cervix (917452927) Personal history of cervical dysplasia (Z87.410) Active confirmed Problem General examination of patient (518202619) Routine general medical examination at health care facility (V70.0) Active confirmed Diag Problem Gynecological examination normal (224511287444053) Routine gynecological examination (V72.31) Active confirmed Problem Screening for malignant neoplasm of colon (073107385) Special screening for malignant neoplasms, colon (V76.51) Active confirmed Major Vital Signs Temperature 97.4 degrees Fahrenheit 06/27/2024 Blood pressure diastolic 70 mm Hg 06/27/2024 Height 5 ft 1.3 in in 06/27/2024 Blood pressure systolic 132 mm Hg 06/27/2024 Weight 114 lbs 06/27/2024 BMI 21.33 kg/m2 06/27/2024 Encounters Encounter Location Date Provider Diagnosis [facility] [employer] [address] [place] [address] 06/27/2024 Valorie Luu Encounter for gynecological examination (general) (routine) without abnormal findings Z01.419 ; Encounter for screening mammogram for malignant neoplasm of breast Z12.31 ; Age-related osteoporosis without current pathological fracture M81.0 ; Postmenopausal atrophic vaginitis N95.2 and Personal history of cervical dysplasia Z87.410 [facility] [address] [place] [address] 04/29/2024 Valorie Luu Postmenopausal atrophic vaginitis N95.2 [...] Provider Name:Valorie montesinos, 07/03/2025 02:20:00 PM, [address] [facility], [address], [place], [address], Insurance Providers Payer Name Payer Address Payer Phone Subscriber Number Group Number Insured Name Patient Relationship to Insured Coverage Start Date Coverage End Date MEDICARE [address] MARY KANG [id number] TEDDY DENNISON Self - patient is the insured MEDEX [address] [place] [address] [phone] [id number] DENTON DENNISONH Self - patient is [...]
[2025-02-24 06:34] VITALS: BP 147/79; PULSE 71; RESP 16; TEMP 36.6; O2SAT 99; BMI 21.5
[2025-02-24] MEDS: Scopolamine 1.5 MG PATCH.TD.3 EAR-BEHIND (06:39)
[2025-02-24] MEDS: Lactated Ringers 1,000 ML 100 ML IVCONT (06:52)
--- NOTE | 2025-02-24 07:04 | HO.ANESPROP2 ---
[facility] Active Problems Active Problems: All Active Problems Pre-op evaluation (Acute) Thyroid nodule (Acute) Major depressive disorder in partial remission (Acute) Delirium in remission (Acute) Major depressive disorder, recurrent, severe with psychotic features (Acute) Footdrop (Acute) Major depressive disorder, recurrent severe without psychotic features (Acute) Personality disorder (Acute) Organic catatonia (Acute) Abnormal EKG (Acute) Odynophagia (Acute) Paranoia (Acute) Dysphagia (Acute) Serotonin syndrome (Acute) Ataxia (Acute) Tremors of nervous system (Acute) Major depression in full remission (Acute) Memory deficit (Acute) ADHD (attention deficit hyperactivity disorder) (Acute) ZAC (generalized anxiety disorder) (Acute) Depression (Acute) Acute bacterial conjunctivitis of both eyes (Acute) Hypercalcemia (Acute) Hypothyroidism (Acute) Leukocytosis (Acute) Hypertension (Chronic) Past Medical History Medical History Pre-op evaluation Urinary tract infection Depression Hypothyroidism ZAC (generalized anxiety disorder) Hypertension ADHD (attention deficit hyperactivity disorder) Family History Family History Other No pertinent family history Family history of problems with anesthesia: No Surgical History Surgical History H/O thumb surgery H/O cone biopsy of cervix History of Problems with Anesthesia: No Social History Social History Household Members: Spouse Household Members Other:: And two cats. Housing: House Do you presently have visiting nurse or other home services: No Unable to assess alcohol history related to: Unknown Alcohol intake: never Patient Tobacco Use Status: Never used Tobacco Tobacco use type: Cigarette Years Smoked: 20 e-Cigarette/Vaping Use: Never Used Second Hand Smoke Exposure: No Substance Use Type: Former Substance User and Marijuana Advance Directives: No Advance Directives Information Provided: Yes service: No Sexual orientation: Straight/Heterosexual Meds Allergies Allergy/AdvReac Type Severity Reaction Status Date / Time No Known Allergies Allergy Verified 10/28/24 07:13 Active Medications: Current Medications Lactated Ringer's (Lr) 1,000 mls @ 100 mls/hr IVCONT .Q10H NORBERTO Last Admin: 02/24/25 06:52 Dose: 100 mls/hr Home Medications ?Medication ?Instructions ?Recorded ?Confirmed ?Last Taken ?Type fluticasone propionate 50 1 spray intranasal BID 08/27/23 11/03/24 Unknown History mcg/actuation nasal spray,suspension amlodipine 5 mg tablet 10 mg PO DAILY 07/12/24 11/03/24 Unknown History famotidine 40 mg tablet 40 mg PO DAILY 11/03/24 11/03/24 Unknown History Exam Height,Weight and Vital Signs: Height 5 ft 1 in Weight 51.71 kg Last Vital Signs Temp 97.8 F 02/24/25 06:34 Pulse 71 02/24/25 06:34 Resp 16 02/24/25 06:34 BP 147/79 H 02/24/25 06:34 Pulse Ox 99 02/24/25 06:34 O2 Del Method Room Air 02/24/25 06:34 Airway Mallampati Class: II TM Dist: >3cm Neck ROM: Full Assessment and Plan Assessment Anesthesia Assessment: Anesthesia Plan Discussed and Chart Reviewed Final Anesthetic Review Family History of Problems with Anesthesia: No History of Problems with Anesthesia: No NPO: Yes ASA Class: III Final Preanesthetic Review: No Changes in Pt Med Stat, Meds/Allgs Chart Reviewed, Consent Obtained/Reviewed and Anes Risks/Benef Reviewed Patient Risk: Intermediate Procedure Risk: Low Anesthetic Plan Anesthetic Plan: GA Disposition: Standard PACU
--- NOTE | 2025-02-24 07:06 | MHC.SHP ---
Pre-Procedural Eval Section A - 24 Hr Update-Section A only Date of Service: 02/24/25 The patient is an INPATIENT: No Changes since office visit: Yes Patient answered all questions; No Cold of Flu in the past 2 weeks, No New Medical Problems and No Changes in Medication The patient has been examined within 24 hours of the surgical procedure. The History & Physical has been completed within 30 days and I have reviewed it.: No Section B - Complete if H&P > 30 days Chief Complaint: Major depressive disorder, recurrent, severe with Details of Present Illness: relapse with depressive sx no new medical concerns noted Relevant Family History (Specify if Yes): No Relevant Social History: None Present Medications: see Short Stay Collaborative assessment Medical History: No relevant PMH History of Previous Operations: Relevant previous surgery/procedure and date(s) (ect) Allergies: Allergies Allergy/AdvReac Type Severity Reaction Status Date / Time No Known Allergies Allergy Verified 10/28/24 07:13 Review of Systems Sugical H&P ROS: Negative: Cardiovascular, Respiratory, Neurological, Hem-Onc, Allergic/Immunologic, Gastrointestinal, Genitourinary, Musculoskeletal, Integumentary and Endocrine and Yes, Specify: Psychiatric (inc depressive sx) and Eyes/Ears/Nose/Throat (inc secretions ongoing continues ) Exam Surgical H&P Exam: Normal: Heart (rr no m), Normal: Lungs (clear), Normal: Extremities and Normal: Neurological Plan Diagnosis/Plan: Unchanged I have reviewed the history and physical and performed a pertinent physical examination on my patient. No changes have occurred unless specified. Time Spent With Patient Time: Total time managing care of this patient today ____ minutes.
--- NOTE | 2025-02-24 07:07 | HO.ECTPROC ---
ECT Procedure Note Diagnosis/Treatment Date of Service: 02/24/25 Diagnosis: Major Depressive Disorder Previous ECT Date: 02/17/25 Treatment: Maintenance Interval Clinical Notes: Patient has had some increase in relapse symptoms mood were depressed and anxious. Some improvement after last treatment. However does have some attentional problems short-term memory side effects at times difficult to tell whether from depression where she tends to become internally preoccupied versus ECT we have discussed trying to limit ECT quetiapine was lowered to 25 mg At bedtime Patient on 2 mg Valium at bedtime was given flumazenil pretreatment 250 mcg would give 500 next time We will discuss with patient further maintenance treatment may need to consider change to etomidate Time: Total time managing care of this patient today _30___ minutes. ECT Settings Device: THYMATRON DGx Electrode Placement: Bifrontal Program/Pulse Width: 0.50 Energy Percent: 100 Seizure Duration By EEG (in seconds): 23 Medications Administration General Anesthetic: Methohexital (70) Muscle Relaxant: Succinylcholine (80) Ancillary Medications Anti-emetics: Zofran - Pre ECT Airway Management Airway Management: Bag Mask Ventilation Treatment Recommendations No Changes Recommended: No change Notes: consider etomidate
[2025-02-24 07:25] VITALS: BP 170/65; PULSE 80; RESP 18; TEMP 36.7; O2SAT 100
[2025-02-24 07:30] VITALS: BP 163/79; PULSE 77; RESP 15; O2SAT 100
[2025-02-24 07:35] VITALS: BP 162/86; PULSE 75; RESP 17; O2SAT 100
[2025-02-24 07:40] VITALS: BP 170/86; PULSE 74; RESP 17; O2SAT 99
[2025-02-24 07:55] VITALS: BP 170/75; PULSE 70; RESP 16; TEMP 36.7; O2SAT 100
== END 2025-02-24 08:44 | disposition home or self-care (01) ==
PROVIDERS: PCP Internal Medicine; Visit Provider Psychiatry & Neurology Psychiatry
PROC: (CPT 90870; principal; 2025-02-24 07:30)
DX: F33.2 Major depressive disorder, recurrent severe without psychotic features (principal); F90.9 Attention-deficit hyperactivity disorder, unspecified type; F39 Unspecified mood [affective] disorder; R41.3 Other amnesia; F41.1 Generalized anxiety disorder; I10 Essential (primary) hypertension; K21.9 Gastro-esophageal reflux disease without esophagitis; E05.80 Other thyrotoxicosis without thyrotoxic crisis or storm; Z79.899 Other long term (current) drug therapy
CPT/HCPCS: 90870; J0330; J2405

== ENCOUNTER → 2025-02-24 05:52 | Outpatient (BNV) | payer MEDICARE, SELFPAY | PROVIDERS: PCP Internal Medicine; Visit Provider Psychiatry & Neurology Psychiatry | DX: F33.3 Major depressive disorder, recurrent, severe with psychotic symptoms (principal) | CPT/HCPCS: 90870 ==

== ENCOUNTER → 2025-03-23 15:03 | Outpatient (BNVA) | payer MEDICARE, SELFPAY | PROVIDERS: PCP Internal Medicine; Visit Provider Psychiatry & Neurology Psychiatry ==

== ENCOUNTER 2025-05-04 10:31 | Outpatient (AMB) | payer MEDICARE, SELFPAY ==
--- NOTE | 2025-05-04 11:21 | MHC.OFFVISPS ---
Intake Intake Visit Reasons: depression Allergies No Known Allergies Allergy (Verified 10/28/24 07:13) HPI- Psychiatric Chief Complaint: depression HPI Narrative: Patient seen with her 74-year-old female history current depression states has been feeling sick only better. More assertive functioning both mentally and cognitively better more assertive has been working on this with her therapist. Feeling more empowered. Patient continues to have some ongoing ENT symptoms but generally not taking over her psyche. Functioning well feeling better about her son and his no with whom he has. Been living. Patient feeling more centered word her is perhaps more off center Past Psychiatric History: -Pt sees Dr. Shearer in OP setting recent hospitalization at the [place] [facility] Has had often on relapses over the past year and half -Remote hx of IPLOC 12 yrs ago, recent admissions at [facility] since 2020 with at least 4 admissions in the last 2 years Mental Status Exam Mental Status Exam Narrative: Mental Status Exam Narrative: Appearance: Casually dressed Behavior: Cooperative appropriate psychomotor: Within normal limits Speech: Normal volume and prosody Thought proccess logical and goal-directed Thought content: Future oriented no self-harming thoughts Mood: Euthymic Affect: Appropriate to mood full affect SI:denies HI:denies VH/AH:none Delusions: None Insight/judgment: Good insight and judgment Memory/cog: Intact Assessment and Plan Assessment & Plan (1) ADHD (attention deficit hyperactivity disorder): Status: Acute Code(s): F90.9 - Attention-deficit hyperactivity disorder, unspecified type (2) ZAC (generalized anxiety disorder): Status: Acute Code(s): F41.1 - Generalized anxiety disorder (3) Major depression in full remission: Status: Acute Code(s): F32.5 - Major depressive disorder, single episode, in full remission Plan Continue plan of care. Patient markedly improved does not wish to make any changes time no evidence of tardive dyskinesia Counseling and coordination of Care Details-Self Mgmt counseling: issues related to the couple Medication management counseling: Effectiveness and Side effects Diagnosis and Prognosis Counseling: Prognosis over time and Adequacy of current interventions Details: I spent [30] minutes reviewing the record, seeing the patient and documenting in the medical record. Counseling provided to the patient/caregiver as outlined below. Addressed patient/caregiver concerns regarding current medication regime including effective adherence. Addressed patient/caregiver concerns regarding diagnosis and prognosis including accuracy of diagnosis, prognosis over time, impact of diagnosis. Addressed patient/caregiver concerns regarding impact of recent stressors. [facility] Medical History Pre-op evaluation Urinary tract infection Depression Hypothyroidism ZAC (generalized anxiety disorder) Hypertension ADHD (attention deficit hyperactivity disorder) Surgical History H/O thumb surgery H/O cone biopsy of cervix Family History Other No pertinent family history Social History Household Members: Spouse Household Members Other:: And two cats. 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
--- OUTSIDE RECORDS SUMMARY | 2025-05-04 11:57 | XMS_ITS | Clinical Summary ---
Author Organization [facility] Facility Address [address] [place] [id number] Care Team Providers Care Client Relation Specialist Name Role Phone Tami Francis MD Primary Care Provider [phone] Allergies No known active allergies Medications amLODIPine [...] Comments Breast Cancer Screening 1950 Pneumococcal Vaccine: 50+ Ye ars (1 of 2 - PCV) 1968 Colorectal Cancer Screening: Annual FOBT 1998 Colorectal Cancer Screening: Colonoscopy 1998 Colorectal Cancer Screening: Sigmoidoscopy 1998 Influenza Vaccine (Season Ended) 2025 Hepatitis B Vaccine Aged Out No longe r eligible based on patient's age to complete this topic Insurance [facility] Medicare [facility] Medicare Care Teams Client Relation Specialist Relationship Specialty Start Date End Date Tami Francis MD [address] [place] [address] PCP - General Internal Medicine 06/13/21
== END 2025-05-04 11:12 | disposition home or self-care (01) ==
LOC: HO.HOP 10:31
PROVIDERS: PCP Internal Medicine; Visit Provider Psychiatry & Neurology Psychiatry
DX: F90.9 Attention-deficit hyperactivity disorder, unspecified type (principal); F41.1 Generalized anxiety disorder; F32.5 Major depressive disorder, single episode, in full remission
CPT/HCPCS: 99214

== ENCOUNTER → 2025-05-04 10:31 | Outpatient (BNVA) | payer MEDICARE, SELFPAY | PROVIDERS: PCP Internal Medicine; Visit Provider Psychiatry & Neurology Psychiatry | DX: F41.1 Generalized anxiety disorder (principal); F32.5 Major depressive disorder, single episode, in full remission; F90.9 Attention-deficit hyperactivity disorder, unspecified type | CPT/HCPCS: 99212 ==

== ENCOUNTER 2025-06-23 13:57 | Outpatient (AMB) | payer MEDICARE, SELFPAY ==
--- OUTSIDE RECORDS SUMMARY | 2024-03-23 09:00 | XMS_ITS ---
Author Organization [employer] [facility] Address [address] [facility] [address] [place] [address] Care Team Providers Care Body Sander Name Role Phone YASMANY ARCE M.D. Primary Care Provider Valorie Campos [phone] Allergies Allergen (clinical drug ingredient) Drug/Non Drug Allergy documented on EMR Reaction Allergy Type Onset Date Status DARVON Unknown Drug Allergy Active erythromycin ERYTHROMYCIN Unknown Drug Allergy A ctive REASON FOR VISIT HR MEDICARE PE Encounters Encounter Location Date Provider Diagnosis [facility] [employer] [address] [place] [address] 03/23/2024 Valorie Luu Plan Of Treatment Next Appt Details Provider Name:Valorie Eleonora montesinos, 07/03/2025 02:20:00 PM, [address], [address], [place], [address], Progress Notes * DENTON DENNISONHDOB:[birth year] (74 yo F)Acc No.[id number]:03/23/2024 PROGRESS NOTES Patient: TEDDY FAIR Appointment Provider: Tea Luu M.D. :1950 A ge:73 Y S ex:Female Date:03/23/2024 Address:[address] [place] [address], [id number] Pcp:YASMANY ARCE M.D. Subjective: * Chief Complaints: [...] on cytologic smear of cervix (ASC-US). 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 S [...] Electronic signature of Joyce Luu MD on 06/23/2025 at 01:59 PM EDT Sign off status: Pending * Appointment Provider: Tea Luu M.D. Date: 0 03/23/2024 Generated for Uri rogers/Charis/Aritting on: 0 06/23/2025 01:59 PM EDT
--- OUTSIDE RECORDS SUMMARY | 2025-06-20 15:12 | XMS_ITS | Encounter Summary ---
Author Organization [facility] Address [address] [place] [address] Care Team Providers Care Grinder Dresser Name Role Phone Tami Francis MD Primary Care Provider [phone] Encounter Details Date Type Department Care Team (Late st Contact Info) Description 06/20/2025 3:12 PM EDT Anesthesia Event [facility] Endoscopy [address] [place] [id number] Olvin Bradford MD [address] [place] [id number] French Field MD [address] [place] [id number] Anesthesia Record Procedure Summary Procedure Name Responsible Anesthesiologist Anesthesia Start Time Anesthesia Stop Time COLONOSCOPY Olvin Bradford MD 06/20/25 1512 06/20/25 1533 Events Date Time Event Comment 06/20/2025 1438 1512 An Start 1512 An Start Data The patient wa s reevaluated immediately before moderate or deep sedation use and before anesthesia induction. 1512 Anesthesia Ready 1512 In Room 1530 an stop data 1530 Out of Room 1530 Handoff to RN I completed my handoff to the receiving nurse during which we: 1. Identified the patient 2. Identified the responsible provider 3. Reviewed the pertinent medical history 4. Discussed the surgical course 5. Reviewed intra-op anesthesia management and issues during anesthesia 6. Set expectations for post-procedure period 7. Allowed opportunity for questions and acknowledgement of understanding. 1533 An Stop Meds Name Total propofol (DIPRIVAN) injection 10 mg/mL 2 00 mg lidocaine PF (XYLOCAINE-MPF) local injec tion 2% 50 mg lactated Ringer's infusion 500 mL * Agents No agents on file. * Blood No blood administrations on file. Lines, Drains, and Airways Type Details Placement Removal Peripheral IV Placement Date: 04/09; Placement Time: 143; Catheter Size: 20 G; Orientation: Posterior, Right; Location: Hand; Insertion Attempts: 1; Patient Tolerance: Tolerated well; Removal Date: 06/20/25; Removal Time: 15306/20/25 1432 by Yumiko Dior RN 06/20/25 1538 by Lavern Nicole RN documented in this encounter Social History Tobacco Use Types Packs/Day Years [...] on file documented as of this encounter Progress Notes * Shravan Moser CRNA - 06/20/2025 3:33 PM EDT Patient: Miriam Valencia Procedure Summary Date: 06/20/25 Room / Location: [facility] Endoscopy Anesthesia Start: 1511 Anesthesia Stop: 1532 Procedure: COLONOSCOPY Diagnosis: Change in bowel habits (Established diverticula) Scheduled Providers: Kwame Adam DO; Olvin Bradford MD; Shravan Moser CRNA Responsible Provider:Olvin Bradford MD Anesthesia Type: MAC ASA Status: 2 Anesthesia Plan: MAC Last Vitals: Vitals Value Taken Time BP 157/79 06/20/25 1533 Temp 97 06/20/25 1533 Pulse 72 06/20/25 1533 Resp 16 06/20/25 1533 SpO2 100 06/20/25 1533 No data recorded Anesthesia Post Evaluation Patient location during evaluation: PACU Patient participation: complete - patient participated Level of consciousness: awake Pain score: 0 Pain management: adequate Airway patency: patent Anesthetic complications: no Cardiovascular status: acceptable Respiratory status: acceptable Hydration status: acceptable Nausea: No Vomiting: No There were no known notable events for this encounter. * French Field MD - 06/20/2025 2:37 PM EDT Relevant Problems No relevant active problems Clinical information reviewed: Tobacco Allergies Meds Med Hx Surg Hx Fam Hx Soc Hx Anesthesia Plan ASA 2 Anesthesia Plan: MAC Anesthesia Risks Discussed serious complications, dental injury, nausea, pain, sore throat, allergic reaction and corneal abrasion Anesthetic plan and risks discussed with patient. Anesthesia Evaluation No history of anesthetic complications Airway Mallampati: II Dental - normal exam Pulmonary - normal exam (-) COPD, asthma, sleep apnea Cardiovascular Exercise tolerance: good (+) hypertension (-) past AL, dysrhythmias Rhythm: regular Rate: normal Neuro/Psych (+) psychiatric history (-) seizures, CVA Comments: MJ use GI/Hepatic/Renal (+) GERD well controlled (-) liver disease, renal disease Endo/Other (-) diabetes mellitus Abdominal PONV RISK SCORE: 2 Vitals: 06/20/25 1430 BP: (!) 145/81 Pulse: 73 Resp: 24 Temp: 36.6 ??C (97.8 ??F) SpO2: 98% Weight: 49.9 kg (110 lb) Height: 1.549 m (61 ) SpO2 Readings from Last 1 Encounters: 06/20/25 98% No results found for: WBC , RBC , HGB , HCT , PLT , MCV Allergies Allergen Reactions Erythromycin Unknown Propoxyphene Unknown STOP BANG: No data recorded NPO Status: Time of Last Liquid: 0900 documented in this encounter Plan of Treatment Not on file documented as of this encounter Visit Diagnoses Not on filedocumented in this encounter Administered Medications Inactive Administered Medications - up to 3 most recent administrations Medication Order MAR Action Action Date Dose Rate Site lactated Ringer's infusion intravenous, Continuous PRN, Starting on Thu06/20/25 at 1512, Anesthesia Intraprocedure New Bag 06/20/2025 3:12 PM EDT lidocaine (PF) (XYLOCAINE-MPF) 2 % injection injection, As needed, Starting on Thu06/20/25 at 1515, Anesthesia Intraprocedure Given 06/20/2025 3:15 PM EDT 50 mg propofoL (DIPRIVAN) injection intravenous, As needed, Starting on Thu06/20/25 at 1515, Anesthesia Intraprocedure Given 06/20/2025 3:26 PM EDT 20 mg Given 06/20/2025 3:22 PM EDT 30 mg Given 06/20/2025 3:19 PM EDT 50 mg documented in this encounter Care Teams Grinder Dresser Relationship Specialty Start Date End Date Tami Francis MD [address] [place] [address] PCP - General Internal Medicine 03/07/25 documented as of this encounter
--- OUTSIDE RECORDS SUMMARY | 2025-06-23 13:59 | XMS_ITS | Continuity of Care Document ---
Author Organization [facility] Address [address] [place] [address] Phone [phone] Care Team Providers Care Care Manager Cna Name Role Phone Tami Francis M.D. Care Team Information Receiv er [phone] Problems Active Problems Provider Date Attention deficit hyperactiv ity disorder, predominantly inattentive type NEMO Bill Onset: 06/15/2024 Essential hypertension NEMO Bill Onset: 06/15/2024 Depressive disorder NEMO Bill Onset: Social History Type Date Description Comments Sex Female Sex Unknown ETOH Use Never used alcohol Tobacco Use Start: Unknown End: Unknown Patient is a former smoker Allergies and adverse reactions Description No Known Drug Allergies Medications Active Medications SIG Qnty Indications Order ing Provider Date Sdefiboa5kl Tablets Take 1/2 Tab Every Morning, 1/2 Tab Afternoon, 1 Tab Bedtime as Needed Unknown Quetiapine Ivtpztfz27rw Tablets Take 1 Tablet AT Bedtime, 1/2-1 Daily as Needed For Obsessional Thinking Unknown Razkptluikr506cq Tablets Take One Tablet By Mouth Every Morning Unknown Bupropion Hydrochloride ER (XL)150mg Tablets ER 24HR Take 1 Tablet By Mouth Every Day Unknown Amlodipine Swviruek86tg Tablets Take 1 Tablet By Mouth Every Day Tami Francis M.D. Nepsxuufwx36qq Tablets Take 1 Tablet By Mouth Every Day Unknown Vitamin S3917wc Tablets 1 by mouth every day Unknown Calcium 2712940(600Ca) mg Tablets 1 by mouth twice a day Unknown Dmfnsl63df Tablets Unknown 0 Vital Signs Date Vital [...] Specimen not received at refrigerated temperature. 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
--- OUTSIDE RECORDS SUMMARY | 2025-06-23 13:59 | XMS_ITS | Clinical Summary ---
Author Organization [facility] Address [address] [place] [address] Care Team Providers Care Wool Handler Name Role Phone Tami Francis MD Primary Care Provider [phone] Allergies No known active allergies Medications amLODIPine [...] Cancer Screening: Sigmoidoscopy 1998 Influenza Vaccine (#1) 2025 Hepatitis B Vaccine Aged Out No longe r eligible based on patient's age to complete this topic Insurance [facility] Medicare [facility] Medicare Care Teams Wool Handler Relationship Specialty Start Date End Date Tami Francis MD [address] [place] [address] PCP - General Internal Medicine 06/13/21
--- OUTSIDE RECORDS SUMMARY | 2025-06-23 13:59 | XMS_ITS | Clinical Summary ---
Author Organization [facility] Address [address] [place] [address] Care Team Providers Care Informatics Analyst Name Role Phone Tami Francis MD Primary Care Provider [phone] Allergies Active Allergy Reactions Criticality Noted Date Comments Erythromycin Unknown/Patient and Family Unable to Define Medium 10/18/2024 Propoxyphene Unknown/Patient and Family Unable to Define Medium 10/18/2024 Medications * This document contains information received from the source organization and may not represent a complete record from that organization. amLODIPine (NORVASC) 10 MG tabletIndications :Primary hypertension Take 1 tablet (10 mg total) by mouth daily. Do not start before January 30, 2023. 30 tablet 3 Active cariprazine (VRAYLAR) 1.5 MG caspuleIndication s:MDD (major depressive disorder), recurrent severe, without psychosis (HCC),ZAC (generalized anxiety disorder) Take 1 capsule (1.5 mg total) by mouth daily. Do not start before January 30, 2023. 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 Do not start before January 30, 2023. 90 capsule 3 Active guaiFENesin (MUCINEX) 600 MG 12 hr tabletIndications :Seasonal allergies Take 1 tablet (600 mg total) by mouth 2 (two) times a day. 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 30 capsule 3 Active LORazepam (ATIVAN) 1 MG tabletIndications :ZAC (generalized anxiety disorder) Take 1 tablet (1 mg total) by mouth nightly. 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 90 capsule 3 Active propranolol (INDERAL) 20 MG tabletIndications :Benign essential tremor,ZAC (generalized anxiety disorder) Take 1 tablet (20 mg total) by mouth every 8 (eight) hours around the clock. 90 tablet 3 Active Armodafinil (NUVIGIL) 150 MG tablet Active ascorbic acid (VITAMIN C) 1000 MG tablet Take by mouth. Active buPROPion (WELLBUTRIN XL) 150 MG 24 hr tablet Active diazepam (VALIUM) 5 MG tablet Active QUEtiapine (SEROquel) 25 MG tablet Active vitamin E 400 UNIT capsule Take 1 capsule by mouth daily. Active nystatin (MYCOSTATIN) 777041 UNIT/ML suspensionIndicat ions:Throat discomfort Take 5 mL (500,000 Units total) by mouth 4 (four) times a day. 100 mL 4 Active PANTOprazole (PROTONIX) 40 MG EC tablet 4 Active famotidine (PEPCID) 40 MG tabletIndications :Gastroesophageal reflux disease without esophagitis TAKE 1 TABLET BY MOUTH EVERY DAY AT NIGHT 90 tablet 1 5 Active Active Problems Problem Noted Date Diagnosed [...] 06/13/2021 Chronic kidney disease, stage 2 (mild) 1 Low serum creatinine 06/13/2021 Immunizations Immunization Administration Dates Next Due Influenza Virus Trivalent [...] Date Recorded PHQ-2 Total Score 6 01/23/2023 Comments Unknown Sex and Gender Information Value Date Recorded Sex Assigned at Female 01/23/2023 1:23 PM EST Legal Sex Female 12:27 PM EST Gender Identity Female 01/23/2023 1:23 PM EST Sexual Orientation Heterosexual (straight) 01/23 1:23 PM EST Last Filed Vital Signs Vital Sign Reading Time Taken Comments Blood Pressure 132/71 01/29/2023 6:12 AM EDT Pulse 77 01/29/2023 6:12 AM EDT Temperature 35.7 C (96.2 F) 01/28/2023 4:00 PM EDT Respiratory Rate 18 01/28/2023 4:00 PM EDT Oxygen Saturation 96% 01/28/2023 4:00 PM EDT Inhaled Oxygen Concentration - - Weight 52.6 kg (116 lb) 03/02/2025 1:14 PM EDT Height 157.5 cm (5' 2 ) 03/02/2025 1:14 PM EDT Body Mass Index 21.22 03/02/2025 1:14 PM EDT Plan of Treatment Upcoming Encounters Date Type Department Care Team (Late st Contact Info) Description 07/18/2025 12:00 PM EDT Office Visit [facility] [address] [place] [address] Lyndon Aquino MD [address] [facility] [address] [facility] [address] [place] [address] Health Maintenance Due Date Last Done Comments Hepatitis C Virus Screening 1949 Mammogram 1989 Colonoscopy 1994 Zoster (Shingles) Vaccine (1 of 2) 1999 DXA Bone Density (Females,Ages 65 and older) 2014 COVID-19 Vaccine (2023-2 5 season) 2024 RSV Vaccine 60 years and older and Patients (1 - 1-dose 75+ series) 2024 Influenza Vaccine 06/16/2025 11/27/2016, 07/27/2015 DTaP/Tdap/Td Vaccines (2 - T d or Tdap) 11/30/2027 11/30/2017 Pneumococcal Vaccines 50+ Completed 2019, 11/27/2016 Hepatitis B Vaccines Aged Out No long er eligible based on patient's age to complete this topic [place] [id number] MEDICARE PART A & B [facility] MEDICARE PART A & B [facility] Advance Directives * Full Code (Latest Code Status on File) Date Activated Date Inactivated Comments 01/23/2023 6:34 PM Care Teams Informatics Analyst Relationship Specialty Start Date End Date Tami Francis MD [address] [place] [address] PCP - General Internal Medicine 01/23/23
--- OUTSIDE RECORDS SUMMARY | 2025-06-23 13:59 | XMS_ITS | Clinical Summary ---
Author Organization [facility] Address [address] [place] [address] Care Team Providers Care Craft Coordinator Name Role Phone Pcp, No Primary Care [...] 70 07/31/2019 12:13 PM EDT Temperature 36.6 C (97.8 F) 07/31/2019 12:13 PM EDT Respiratory Rate 18 07/31/2019 12:1 [...] Insurance MEDICARE PART A&B [facility] MCR SUPPLEMENT Care Teams Craft Coordinator Relationship Specialty Start [place] [id number] PCP - General 07/31/19
--- OUTSIDE RECORDS SUMMARY | 2025-06-23 13:59 | XMS_ITS ---
Author Name [facility] Organization Unknown History of Medication Use Medication Directions Dispensed Refills Start Date End Date Stat us amLODIPine (NORVASC) 10 MG tablet Take 1 tablet (10 mg total) by mouth daily. Do not start before January 30, 2023. 01/30/2023 active FLUoxetine (PROzac) 20 MG capsule Take 3 capsules (60 mg total) by mouth daily. Do not start before January 30, 2023. 01/30/2023 active lithium carbonate 300 MG IR capsule Take 1 capsule (300 mg total) by mouth nightly. 01/29/2023 active Armodafinil (NUVIGIL) 150 MG tablet active ascorbic acid (VITAMIN C) 1000 MG tablet Take by mouth. active buPROPion (WELLBUTRIN XL) 150 MG 24 hr tablet active QUEtiapine (SEROquel) 25 MG tablet active Allergies Allergen Reaction Severity Comment Documented Date Source Statu s PROPOXYPHENE UNKNOWN/PATIENT AND FAMILY UNABLE TO DEFINE 10/18/2024 [facility] acti ve ERYTHROMYCIN UNKNOWN/PATIENT AND FAMILY UNABLE TO DEFINE [facility] Problems Problem Status Onset Date Problem Type Date of Resolution Source Depressed bipolar I disorder active 2024-10-18 ProblemAct [facility] Depressive disorder active 2024-06-15 ProblemAct [facility] History of cervical dysplasia active 2024-10-18 ProblemAct [facility] Carcinoma in situ of cervix uteri active 2024-10-18 ProblemAct [facility] Low serum creatinine active 2021-06-13 ProblemAct [facility] Chronic kidney disease, stage 2 (mild) active 2021-06-13 ProblemAct [facility] Throat discomfort active EncounterDiagnosisAct [facility] MDD (major depressive disorder), recurrent severe, without psychosis active 2023-01-23 ProblemAct [facility] Gastroesophageal reflux disease without esophagitis active EncounterDiagnosisAct [facility] 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 active 2021-06-13 ProblemAct [facility] Osteochondropathy active 2024-10-18 ProblemAct [facility] Menopausal symptom active 2024-10-18 ProblemAct [facility] Atrophic vaginitis active 2024-10-18 ProblemAct [facility] Essential hypertension active 2024-06-15 ProblemAct [facility] Attention deficit hyperactivity disorder, predominantly inattentive type active 2024-06-15 ProblemAct [facility] Immunizations Vaccine Date Source Lot Number Status Pneumococcal Polysaccharide 23-Valent 12/22/2019 [facility] [id number] completed Tdap 11/30/2017 [facility] [id number] completed Influenza, Quadrivalent (FLU ARIX, AFLURIA, FLULAVAL, FLUZONE) Preservative Free IM 11/27/2016 [facility] [id number] completed Pneumococcal Conjugate 13-Valent 11/27/2016 [facility] [id number] completed Influenza Virus Trivalent Sp lit Vaccine (MDV) IM 07/27/2015 [facility] [id number] completed Encounters Encounter Type Encounter Reason Primary Diagnosis Location Date Ambulatory Post Nasal Drip [facility] 03/02/2025 Ambulatory Oral Pain Oral Pain [facility] 11/30/2024 Ambulatory Post Nasal Drip [facility] 11/22/2024 Ambulatory Sinus Problem Sinus Problem [facility] [place] 10/18/2024 Emergency [place] [facility] [facility] [place] 01/23/2023 Care Team Organization Name Specialty Phone Email Start Date End [facility] 03/05/2025 04/03/2025 [facility] [employer] 01/23/2023 04/03/2025 [place] [facility] Tami Francis Primary [facility] 01/23/2023 01/24/20 23
--- NOTE | 2025-06-23 15:01 | A.OFFPSYCH_ITS ---
Intake Intake Visit Reasons: depression Allergies No Known Allergies Allergy (Verified 10/28/24 07:13) Medication List - Last Reconciled 06/23/25 by Yovany Shearer MD amlodipine 10 mg See Protocol PO DAILY armodafinil 75 mg (1/2 x 150 mg) PO QAM ascorbic acid (vitamin C) (Vitamin C) 2,000 mg (4 x 500 mg) PO BEDTIME 30 days bupropion HCl SR 150 mg PO BID 90 days diazepam 2.5 - 5 mg (0.5 - 1 x 5 mg) PO DIRECTED 30 days famotidine 40 mg PO DAILY fluticasone propionate 50 mcg/actuation 1 spray intranasal BID multivitamin (Daily-Dara tablet) 1 tab PO DAILY 30 days omeprazole 20 mg PO DAILY@0630 quetiapine 25 - 50 mg (1 - 2 x 25 mg) PO BEDTIME 60 days HPI- Psychiatric Chief Complaint: depression HPI Narrative: Patient seen psychiatric follow-up with her . Patient has cycled down again has been trying to continue functioning with her commitments but is severely depressed withdrawn PHQ-9 elevated ZAC elevated. Patient ruminating problems concentrating has No clear trigger for recent events. Becomes preoccupied with congestion in the back of her throat clearing mucus Past Psychiatric History: -Pt sees Dr. Shearer in OP setting recent hospitalization at the [facility] Has had often on relapses over the past year and half -Remote hx of IPLOC 12 yrs ago, recent admissions at [facility] since 2020 with at least 4 admissions in the last 2 years Mental Status Exam Mental Status Exam Patient Appearance: Well Grooomed Patient Orientation: Person, Place, Time and Situation Level of Consciousness: Awake and Appropriate Mood Description: Depressed and Apprehensive Affect Description: Appropriate and Constricted Patient Cognition Impaired: No Ability to Follow Directions: Good Speech Pattern: Clear Memory Description: Intact Hallucinations: None Delusions: Not Present Thought Process: Intact and Goal Oriented Thought Content: positive for Goal Oriented, positive for Preoccupation, negative for Suicidal Ideation or negative for Homicidal Ideation Depressive Symptoms: Increased Anxiety, Increased Irritability, Hopelessness, Increased Fatigue, Loss of Energy and Difficulty Concentrating Judgement: Good Assessment and Plan Assessment & Plan (1) ZAC (generalized anxiety disorder): Status: Acute Code(s): F41.1 - Generalized anxiety disorder (2) Major depressive disorder, recurrent severe without psychotic features: Status: Acute Code(s): F33.2 - Major depressive disorder, recurrent severe without psychotic features Plan Discussed with patient she has been nonresponsive to medication when in a depressive state for an extended period of time. Discussed options of TMS bravado and ECT. Increase quetiapine to 50 mg patient very much not wishing to have ECT but will think about it. Reviewed object possibilities with patient and Counseling and coordination of Care Pt. Self Management counseling: Breathing and Behavior activation Medication management counseling: Effectiveness, Side effects and Dosing range Diagnosis and Prognosis Counseling: Adequacy of current interventions Details: I spent [39] minutes reviewing the record, seeing the patient and documenting in the medical record. Counseling provided to the patient/caregiver as outlined below. Addressed patient/caregiver concerns regarding current medication regime including effective adherence. Addressed patient/caregiver concerns regarding diagnosis and prognosis including accuracy of diagnosis, prognosis over time, impact of diagnosis. Addressed patient/caregiver concerns regarding impact of recent stressors. [facility] Medical History Pre-op evaluation Urinary tract infection Depression Hypothyroidism ZAC (generalized anxiety disorder) Hypertension ADHD (attention deficit hyperactivity disorder) Surgical History H/O thumb surgery H/O cone biopsy of cervix Family History Other No pertinent family history Social History Household Members: Spouse Household Members Other:: And two cats. 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
== END 2025-06-23 16:06 | disposition home or self-care (01) ==
LOC: HO.HOP 13:57
PROVIDERS: PCP Internal Medicine; Visit Provider Psychiatry & Neurology Psychiatry
DX: F41.1 Generalized anxiety disorder (principal); F33.2 Major depressive disorder, recurrent severe without psychotic features
CPT/HCPCS: 90833; 99213

== ENCOUNTER → 2025-06-23 13:57 | Outpatient (BNVA) | payer MEDICARE, SELFPAY | PROVIDERS: PCP Internal Medicine; Visit Provider Psychiatry & Neurology Psychiatry | DX: F33.2 Major depressive disorder, recurrent severe without psychotic features (principal); F41.1 Generalized anxiety disorder | CPT/HCPCS: 99212 ==

== ENCOUNTER 2025-06-28 05:55 | Day surgery (SDC) | payer MEDICARE, SELFPAY ==
--- OUTSIDE RECORDS SUMMARY | 2024-03-23 09:00 | XMS_ITS ---
Author Organization [facility] Address [address] [facility] [address] [place] [address] Care Team Providers Care Resident Care Manager Rn Name Role Phone YASMANY ARCE M.D. Primary Care Provider Valorie Campos [phone] Allergies Allergen (clinical drug ingredient) Drug/Non Drug Allergy documented on EMR Reaction Allergy Type Onset Date Status DARVON Unknown Drug Allergy Active erythromycin ERYTHROMYCIN Unknown Drug Allergy A ctive REASON FOR VISIT HR MEDICARE PE Encounters Encounter Location Date Provider Diagnosis [facility] [address] [place] [address] 03/23/2024 Valorie Luu Plan Of Treatment Next Appt Details Provider Name:Valorie Eleonora montesinos, 07/03/2025 02:20:00 PM, [address] [facility], [address], [place], [address], Progress Notes * DENTON DENNISONHDOB:[birth year] (74 yo F)Acc No.[id number]:03/23/2024 PROGRESS NOTES Patient: TEDDY FAIR Appointment Provider: Tea Luu M.D. :1950 A ge:73 Y S ex:Female Date:03/23/2024 Address:[address] [place] [address], [id number] Pcp:YASMANY ARCE M.D. Subjective: * Chief Complaints: * 1 . HR MEDICARE PE. * Medical History: P ersonal history of cervical dysplasia, Postmenopausal atrophic vaginitis, Menopausal and female climacteric states, Essential (primary) hypertension, Bipolar disorder, current episode depressed, mild or moderate severity, unspecified, Carcinoma in situ of endocervix, Disorder of bone density and structure, unspecified, Atypical squamous cells of undetermined significance on cytologic smear of cervix (ASC-US). 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 S exual activity c urrently sexually active. L ast Pap Smear: ASCUS NEG HRHPV, 01/16/20 NIL, NEG HPV, 12/01/2016 , neg, NEG HRHPV. M ammogram: < 50% density, 09/13/20 < 50% density, 03/10/19 < 50% density, 02/01/2018, normal. A bnormal Pap Smear: 1 997 MARGA III treated with Cone Biopsy. L MP and menses M SHAE. C olonoscopy y es 2010. B one Density: , 03/10/19, 2011. * OB History: T otal pregnancies 2 . T otal living children 1 . N VD 1 . * Allergies: D ARVON: Allergy, ERYTHROMYCIN: Allergy. Objective: * Vitals: Assessment: Plan: * Treatment: * Images: Billing Information: * Visit Code: * Procedure Codes: * Electronic signature of Joyce Luu MD on 06/26/2025 at 11:20 AM EDT Sign off status: Pending * Appointment Provider: Tea Luu M.D. Date: 0 03/23/2024 Generated for Uri rogers/Charis/Aritting on: 0 06/26/2025 11:20 AM EDT
--- OUTSIDE RECORDS SUMMARY | 2025-06-20 13:51 | XMS_ITS | Encounter Summary ---
Author Organization [facility] Address [address] [place] [address] Care Team Providers Care Concrete Conveyor Operator Name Role Phone Tami Francis MD Primary Care Provider [phone] Reason for Referral * Hospital - Outpatient (Routine) - Closed Specialty Diagnoses / Procedures Referred By Jenna dunaway Referred To Contact Diagnoses Change in bowel habits Procedures COLONOSCOPY Anesthesia - MAC; [facility] ENDOSCOPY Ron Adam DO [address] [address] Phone: tel: fax: [facility] Endoscopy [address] [place] [address] Referral ID Status Reason Start Date Expiration Date Visits Re quested Visits Authorized [id number] Closed 04/12/2025 04/12/2026 1 1 Reason for Visit * Hospital - Outpatient (Routine) - Closed Specialty Diagnoses / Procedures Referred By Jenna dunaway Referred To Contact Diagnoses Change in bowel habits Procedures COLONOSCOPY Anesthesia - MAC; [facility] ENDOSCOPY oRn Adam DO [address] [address] Phone: tel: fax: [facility] Endoscopy [address] [place] [address] Referral ID Status Reason Start Date Expiration Date Visits Re quested Visits Authorized [id number] Closed 04/12/2025 04/12/2026 1 1 Encounter Details Date Type Department Care Team (Latest Contact Info) Description 06/20/2025 1:51 PM EDT - 06/20/2025 11:59 PM EDT Hospital Encounter [facility] Endoscopy [address] [place] [address] Ron Adam DO [address] [address] Olvin Bradford MD [address] [place] [address] Shravan Moser CRNA [address] [place] [address] Change in bowel habits Discharge Disposition: Home or Self Care Social History Tobacco Use Types Packs/Day Years Used Date Smoking Tobacco: Never Smokeless Tobacco: Never Tobacco Cessation:Counseling Given: Not Answered Alcohol Use Standard Drinks/Week Comments Never 0 (1 standard drink = 0.6 oz pur e alcohol) Interpersonal Safety Answer Date Record ed Physical Abuse 06/20/2025 Verbal Abuse 06/20/2025 Comments Unknown Sex and Gender Information Value Date Recorded Sex Assigned at Not on file Legal Sex Female 11:40 AM EDT Gender Identity Not on file Sexual Orientation Not on file documented as of this encounter Last Filed Vital Signs Vital Sign Reading Time Taken Comments Blood Pressure 134/73 06/20/2025 3:51 PM EDT Pulse 68 06/20/2025 3:51 PM EDT Temperature 36.6 C (97.8 F) 06/20/2025 2:30 PM EDT Respiratory Rate 16 06/20/2025 3:51 PM EDT Oxygen Saturation 99% 06/20/2025 3:51 PM EDT Inhaled Oxygen Concentration - - Weight 49.9 kg (110 lb) 06/20/2025 2:30 PM EDT Height 154.9 cm (5' 1 ) 06/20/2025 2:30 PM EDT Body Mass Index 20.78 06/20/2025 2:30 PM EDT documented in this encounter Discharge Instructions * Attachments The following attachments cannot be sent through Care Everywhere. * Diverticulosis ([place]) * Colon Polyps ([place]) * Hemorrhoids ([place]) * EGD (Upper Endoscopy): Post op ([place]) * Colonoscopy: Post op ([place]) documented in this encounter Medications at Time of Discharge amLODIPine (NORVASC) 10 mg tablet amLODIPine (NORVASC) 5 mg tablet Take 1 tablet (5 mg total) by mouth 1 (one) time each day. armodafiniL (NUVIGIL) 150 mg tablet ascorbic acid (VITAMIN C) 1,000 mg tablet Take by mouth. brexpiprazole (Rexulti) 0.5 mg tablet Take 1 tablet (0.5 mg total) by mouth 1 (one) time each day. 04/27/2023 buPROPion SR (WELLBUTRIN SR) 150 mg 12 hr tablet Take 1 tablet (150 mg total) by mouth 2 (two) times a day. 04/18/2025 diazePAM (VALIUM) 5 mg tablet famotidine (PEPCID) 40 mg tablet Take 1 tablet (40 mg total) by mouth at bedtime. FLUoxetine (PROzac) 40 mg capsule Take 2 capsules (80 mg total) by mouth. 04/24/2023 fluticasone propionate (FLONASE) 50 mcg/actuation nasal spray spray 1 spray (50 mcg) in each nostril by intranasal route 2 times per day polyethylene glycol (Golytely) 236-22.74-6.74 -5.86 gram solution Take 4L by mouth once for one dose. May substitue any PEG. Starting at 2PM the day before your procedure drink 1 8oz glasses at your own pace until you complete half of the gallon. Finish 2nd half of the gallon at 8PM. 4000 mL 06/06/2025 propranoloL (INDERAL) 20 mg tablet Take 1 tablet (20 mg total) by mouth 2 (two) times a day. 04/24/2023 QUEtiapine (SEROquel) 25 mg tablet Yuvafem 10 mcg tablet vaginal tablet INSERT 1 TABLET VAGINALLY TWICE A WEEK 90 DAYS documented as of this encounter Discharge Disposition Disposition Code Departure Means Destination Home or Self Care documented in this encounter Progress Notes * Lavern Luu RN - 06/20/2025 3:46 PM EDT Problem: Cognitive:Periop Procedure - Minor Goal: Knowledge of disease or condition will improve Outcome: Adequate for Discharge Problem: Sensory:Periop Procedure - Minor Goal: Demonstrates/reports adequate pain control Outcome: Adequate for Discharge * Erica Green RN - 06/20/2025 3:31 PM EDT Report given to jignesh luu RN * Ron Adam DO - 06/20/2025 3:00 PM EDT Please let the patient know that the colon polyp removed was benign, but precancerous. Given the type and size of the polyp, and based on current guidelines, I recommend that a surveillance colonoscopy is performed in [address] a reminder on the system for the patient to be contacted to have a surveillance colonoscopy in 5 years. High-fiber diet and avoidance of processed foods recommended. The patient may follow-up with a primary care provider as instructed. Thank you. * Yumiko Dior RN - 06/20/2025 2:24 PM EDT Problem: Cognitive:Periop Procedure - Minor Goal: Knowledge of disease or condition will improve Outcome: Progressing Problem: Sensory:Periop Procedure - Minor Goal: Demonstrates/reports adequate pain control Outcome: Progressing PT VERBALIZED UNDERSTAND OF DC INSTRUCTIONS, FALL RISK REVIEWED, CALL [facility] AT BEDSIDE. documented in this encounter H&P Notes * Ron Adam DO - 06/20/2025 3:00 PM EDT Pre-Op Diagnosis: diverticulitis Proposed Procedure: colonoscopy Performing Surgeon/MD/Endoscopist: Ron Adam DO Medical/History: Past Medical History: Diagnosis Date Anxiety state DX:Anxiety state Depression Esophageal dysmotility DX:Esophageal dysmotility Esophageal reflux DX:Esophageal reflux Hypertension Postnasal drip DX:Postnasal drip Past Surgical History: Procedure Laterality Date COLONOSCOPY PROCEDURE: HISTORICAL COLONOSCOPY Medications/Allergies: Prior to Admission medications Medication Sig Start Date End Date Taking? Authorizing Provider amLODIPine (NORVASC) 5 mg tablet Take 1 tablet (5 mg total) by mouth 1 (one) time each day. Yes Historical Provider, armodafiniL (NUVIGIL) 150 mg tablet Yes Historical Provider, ascorbic acid (VITAMIN C) 1,000 mg tablet Take by mouth. Yes Historical Provider, buPROPion SR (WELLBUTRIN SR) 150 mg 12 hr tablet Take 1 tablet (150 mg total) by mouth 2 (two) times a day. 04/18/25 Yes Historical Provider, diazePAM (VALIUM) 5 mg tablet Yes Historical Provider, famotidine (PEPCID) 40 mg tablet Take 1 tablet (40 mg total) by mouth at bedtime. Yes Historical Provider, fluticasone propionate (FLONASE) 50 mcg/actuation nasal spray spray 1 spray (50 mcg) in each nostril by intranasal route 2 times per day Yes Historical Provider, amLODIPine (NORVASC) 10 mg tablet Historical Provider, brexpiprazole (Rexulti) 0.5 mg tablet Take 1 tablet (0.5 mg total) by mouth 1 (one) time each day. 04/27/23 Historical Provider, FLUoxetine (PROzac) 40 mg capsule Take 2 capsules (80 mg total) by mouth. 04/24/23 Historical Provider, polyethylene glycol (Golytely) 236-22.74-6.74 -5.86 gram solution Take 4L by mouth once for one dose. May substitue any PEG. Starting at 2PM the day before your procedure drink 1 8oz glasses at your own pace until you complete half of the gallon. Finish 2nd half of the gallon at 8PM. 06/06/25 ESTELLE Jules propranoloL (INDERAL) 20 mg tablet Take 1 tablet (20 mg total) by mouth 2 (two) times a day. 04/24/23Historical Provider, QUEtiapine (SEROquel) 25 mg tablet Historical Provider, Yuvafem 10 mcg tablet vaginal tablet INSERT 1 TABLET VAGINALLY TWICE A WEEK 90 DAYS Patient not taking: Reported on 04/11/2025 Historical Provider, bisacodyL (DULCOLAX) 5 mg EC tablet Take 2 tablets by mouth right before beginning bowel prep. See instructions provided by the office 06/06/25 06/20/25 Germania Yu NP Patient Age:74 y.o. Vitals: Vitals: 06/20/25 1430 BP: (!) 145/81 Pulse: 73 Resp: 24 Temp: 36.6 ??C (97.8 ??F) SpO2: 98% Physical Exam: Mental Status: Clear HEENT: WNL Heart: WNL Lungs: WNL Abdomen: WNL Extremities: WNL Neuro: WNL Labs: Imaging: Diagnosis/Plan: colonoscopy documented in this encounter Procedure Notes * Lavern Luu RN - 06/20/2025 3:51 PM EDT FINDINGS AND DISCHARGE INSTRUCTIONS REVIEWED WITH PT. PT VERBALIZES UNDERSTANDING. PT JESUS PO PRIOR TO D/C. PT D/C'D WITH BELONGINGS. documented in this encounter Plan of Treatment Not on file documented as of this encounter Procedures Procedure Name Priority Date/Time Associated Diagnosis Comments COLONOSCOPY Routine 06/20/2025 3:30 PM EDT Change in bowel habits TISSUE EXAM Routine 06/20/2025 3:25 PM EDT Change in bowel habits documented in this encounter Results * COLONOSCOPY Anesthesia - MAC; [facility] ENDOSCOPY (06/20/2025 3:30 PM EDT) Anatomical Region Laterality Modality Endoscopy 06/20/2025 3:10 PM EDT Impressions 06/20/2025 3:31 PM EDT - Hemorrhoids found on perianal exam. - Three 5 to 9 mm polyps in the sigmoid colon and in the descending colon, removed with a cold snare. Resected and retrieved. - The entire examined colon is normal on direct and retroflexion views. Recommendation: - Discharge patient to home. - Resume previous diet. - Continue present medications. - Await pathology results. - No evidence of chronic inflammation at the diverticular disease segment. Narrative 06/20/2025 3:31 PM EDT [facility] GI Patient Name: Miriam Valencia Procedure Date: 06/20/2025 3:10 PM Date of : 1950 Age: 74 Gender: Female Note Status: Finalized Attending MD: Ron Adam DO, [id number] Procedure Date No Time: 06/20/2025 Procedure: Colonoscopy Indications: Diverticulitis Providers: Ron Adam DO Referring MD: Tami Francis MD Medicines: Monitored Anesthesia Care Complications: No immediate complications. Estimated blood loss: Minimal. Estimated Blood Loss: Estimated blood loss was minimal. Procedure: Pre-Anesthesia Assessment: - - Prior to the procedure, a History and Physical was performed, and patient medications and allergies were reviewed. The patient is competent. The risks and benefits of the procedure and the sedation options and risks were discussed with the patient. All questions were answered and informed consent was obtained. Patient identification and proposed procedure were verified by the physician, the nurse, the anesthesiologist, the photography spotter and the laser/electro optics technician in the pre-procedure area in the endoscopy suite. Mental Status Examination: alert and oriented. Airway Examination: normal oropharyngeal airway and neck mobility. Respiratory Examination: clear to auscultation. CV Examination: normal. Prophylactic Antibiotics: The patient does not require prophylactic antibiotics. Prior Anticoagulants: The patient has taken no anticoagulant or antiplatelet agents. ASA Grade Assessment: II - A patient with mild systemic disease. After reviewing the risks and benefits, the patient was deemed in satisfactory condition to undergo the procedure. The anesthesia plan was to use monitored anesthesia care (MAC). Immediately prior to administration of medications, the patient was re-assessed for adequacy to receive sedatives. The heart rate, respiratory rate, oxygen saturations, blood pressure, adequacy of pulmonary ventilation, and response to care were monitored throughout the procedure. The physical status of the patient was re-assessed after the procedure. After I obtained informed consent, the scope was passed under direct vision. Throughout the procedure, the patient's blood pressure, pulse, and oxygen saturations were monitored continuously. The Colonoscope was introduced through the anus and advanced to the cecum, identified by appendiceal orifice and ileocecal valve. Anatomical landmarks were photographed. Findings: Hemorrhoids were found on perianal exam. A few small-mouthed diverticula were found in the sigmoid colon and descending colon. There was no evidence of diverticular bleeding. Three sessile polyps were found in the sigmoid colon and descending colon. The polyps were 5 to 9 mm in size. These polyps were removed with a cold snare. Resection and retrieval were complete. Verification of patient identification for the specimen was done. Estimated blood loss was minimal. The entire examined colon appeared normal on direct and retroflexion views. Procedure Code(s): --- Professional --- 84003, Colonoscopy, flexible; with removal of tumor(s), polyp(s), or other lesion(s) by snare technique Diagnosis Code(s): --- Professional --- K64.9, Unspecified hemorrhoids D12.5, Benign neoplasm of sigmoid colon D12.4, Benign neoplasm of descending colon K57.30, Diverticulosis of large intestine without perforation or abscess without bleeding CPT copyright 2020 [employer]. All rights reserved. The codes documented in this report are preliminary and upon manager r d review may be revised to meet current compliance requirements. RON Adam DO 06/20/2025 3:31:11 PM This report has been signed electronically.Ron Adam DO Number of Addenda: 0 Note Initiated On: 06/20/2025 3:10 PM Scope Withdrawal Time: 0 hours 8 minutes 20 seconds Scope In: 3:17:07 PM Scope Out: 3:29:30 PM Endoscopy Department at [facility] - [address] [place] [id number] Procedure Note Ron Adam DO - 06/20/2025 [facility] GI Patient Name: Miriam Valencia Procedure Date: 06/20/2025 3:10 PM Date of : 1950 Age: 74 Gender: Female Note Status: Finalized Attending MD: oRn Adam DO, [id number] Procedure Date No Time: 06/20/2025 Procedure: Colonoscopy Indications: Diverticulitis Providers: Ron Adam DO Referring MD: Tami Francis MD Medicines: Monitored Anesthesia Care Complications: No immediate complications. Estimated blood loss: Minimal. Estimated Blood Loss: Estimated blood loss was minimal. Procedure: Pre-Anesthesia Assessment: - - Prior to the procedure, a History and Physicalwas performed, and patient medications and allergieswere reviewed. The patient is competent. The risks and benefits of the procedure and the sedation optionsand risks were discussed with the patient. Allquestions were answered and informed consent was obtained. Patient identification and proposed procedure were verified by the physician, the nurse, the anesthesiologist, the photography spotter and thetechnician in the pre-procedure area in the endoscopy suite. Mental Status Examination: alert and oriented.Airway Examination: normal oropharyngeal airway and neck mobility. Respiratory Examination: clear to auscultation. CV Examination: normal. Prophylactic Antibiotics: The patient does not requireprophylactic antibiotics. Prior Anticoagulants: The patient has taken no anticoagulant or antiplatelet agents. ASA Grade Assessment: II - A patient with mild systemic disease. After reviewing the risks and benefits,the patient was deemed in satisfactory condition to undergo the procedure. The anesthesia plan was touse monitored anesthesia care (MAC). Immediately priorto administration of medications, the patient was re-assessed for adequacy to receive sedatives. The heart rate, respiratory rate, oxygen saturations, blood pressure, adequacy of pulmonary ventilation,and response to care were monitored throughout the procedure. The physical status of the patient was re-assessed after the procedure. After I obtained informed consent, the scope was passed under direct vision. Throughout theprocedure, the patient's blood pressure, pulse, and oxygen saturations were monitored continuously. The Colonoscope was introduced through the anus and advanced to the cecum, identified by appendiceal orifice and ileocecal valve. Anatomical landmarkswere photographed. Findings: Hemorrhoids were found on perianal exam. A few small-mouthed diverticula were found in the sigmoid colon and descending colon. There was no evidence of diverticular bleeding. Three sessile polyps were found in the sigmoidcolon and descending colon. The polyps were 5 to 9 mm in size. These polyps were removed with a cold snare. Resection and retrieval were complete. Verificationof patient identification for the specimen was done. Estimated blood loss was minimal. The entire examined colon appeared normal on direct and retroflexion views. Procedure Code(s): --- Professional --- 45458, Colonoscopy, flexible; with removal of tumor(s), polyp(s), or other lesion(s) by snare technique Diagnosis Code(s): --- Professional --- K64.9, Unspecified hemorrhoids D12.5, Benign neoplasm of sigmoid colon D12.4, Benign neoplasm of descending colon K57.30, Diverticulosis of large intestine without perforation or abscess without bleeding CPT copyright 2020 [employer]. All rights reserved. The codes documented in this report are preliminary and upon manager r d reviewmay be revised to meet current compliance requirements. RON Adam DO 06/20/2025 3:31:11 PM This report has been signed electronically.Ron Adam DO Number of Addenda: 0 Note Initiated On: 06/20/2025 3:10 PM Scope Withdrawal Time: 0 hours 8 minutes 20 seconds Scope In: 3:17:07 PM Scope Out: 3:29:30 PM Endoscopy Department at [facility] - [address] [place] [id number] IMPRESSION: - Hemorrhoids found on perianal exam. - Three 5 to 9 mm polyps in the sigmoid colon andin the descending colon, removed with a cold snare. Resected and retrieved. - The entire examined colon is normal on direct and retroflexion views. Recommendation: - Discharge patient to home. - Resume previous diet. - Continue present medications. - Await pathology results. - No evidence of chronic inflammation at the diverticular disease segment. Ron Adam DO GI~PROCEDURE ORDERABLES Final Re sult * Tissue exam (06/20/2025 3:25 PM EDT) Final Diagnosis A. Large Intestine, Left/Descending Colon, polyps x2: - Tubular adenoma. - Hyperplastic polyp. B. Large Intestine, Sigmoid Colon, polyp: - Tubular adenoma. C. Large Intestine, Sigmoid Colon, biopsies: - Colonic mucosa with no specific pathologic changes. 06/22/2025 10:54 AM EDT [facility] Gross Description A. Large Intestine, Left/Descending Colon, polyps x 2: Labeled polys x desc colon . Received in formalin are five soft, elena polypoid tissue fragments, ranging from 0.2 to 0.6 cm in greatest diameters, which are wrapped in paper and submitted in toto in one cassette, five pieces, multiple levels on one slide. B. Large Intestine, Sigmoid Colon, polyp: Labeled polyp sig colon . Received in formalin are two soft, elena-brown stippled polypoid tissue fragments, measuring 0.4 and 0.6 cm in greatest diameters. The largest fragment is bisected. The specimen is wrapped in paper and submitted in entirety in one cassette, three pieces, multiple levels on one slide. C. Large Intestine, Sigmoid Colon, biopsies: Labeled biopsies sig colon . Received in formalin is a 0.4 cm in greatest diameter soft, elena-brown stippled tissue fragment, which is wrapped in paper and submitted in toto in one cassette, one piece, multiple levels on one slide. 06/22/2025 10:54 AM EDT [facility] Disclaimer Unless otherwise specified, all tissue is 10% NB formalin fixed and paraffin embedded. 06/22/2025 10:54 AM EDT [facility] Tissue Descending colon structure / Unknown 06/20/2025 3:25 PM EDT 06/21/2025 5:43 AM EDT Tissue specimen (specimen) Sigmoid colon structure / Unknown 06/20/2025 3:27 PM EDT 06/21/2025 5:43 AM EDT Tissue specimen (specimen) Sigmoid colon structure / Unknown 06/20/2025 3:28 PM EDT 06/21/2025 5:43 AM EDT Ron Adam DO LAB PATHOLOGY ORDERABLES Final R esult [facility] [address] [place] [address], documented in this encounter Visit Diagnoses Diagnosis Change in bowel habits Other symptoms involving digestive system documented in this encounter Discontinued Medications Medication Sig Discontinue Reason Start Date End Da te bisacodyL (DULCOLAX) 5 mg EC tablet Take 2 tablets by mouth right before beginning bowel prep. See instructions provided by the office 06/06/2025 06/20/2025 documented as of this encounter Historical Medications * This list may reflect changes made after this encounter. famotidine (PEPCID) 40 mg tablet Take 1 tablet (40 mg total) by mouth at bedtime. buPROPion SR (WELLBUTRIN SR) 150 mg 12 hr tablet Take 1 tablet (150 mg total) by mouth 2 (two) times a day. 04/18/2025 added in this encounter Care Teams Concrete Conveyor Operator Relationship Specialty Start Date End Date Tami Francis MD [address] [place] [address] PCP - General Internal Medicine 03/07/25 documented as of this encounter
--- OUTSIDE RECORDS SUMMARY | 2025-06-26 11:20 | XMS_ITS | Continuity of Care Document ---
Author Organization [facility] Address [address] [facility] [address] [place] [address] Phone [phone] Care Team Providers Care Cane Furniture Maker Name Role Phone Tami Francis M.D. Care Team Information Receiv er [phone] Problems Active Problems Provider Date Attention deficit [...] SIG Qnty Indications Order ing Provider Date Hoyghejp2ve Tablets Take 1/2 Tab Every Morning, 1/2 Tab Afternoon, 1 Tab Bedtime as Needed Unknown Quetiapine Gakopjed58pc Tablets Take 1 Tablet AT Bedtime, 1/2-1 Daily as Needed For Obsessional Thinking Unknown Cccgpfnpdgw021tx Tablets Take One Tablet By Mouth Every Morning Unknown Bupropion Hydrochloride ER (XL)150mg Tablets ER 24HR Take 1 Tablet By Mouth Every Day Unknown Amlodipine Vfvtcicz86kb Tablets Take 1 Tablet By Mouth Every Day Tami Francis M.D. Arikuupdhz70nu Tablets Take 1 Tablet By Mouth Every Day Unknown Vitamin H2112wa Tablets 1 by mouth every day Unknown Calcium 3688596(600Ca) mg Tablets 1 by mouth twice a day Unknown Jbsslg59ss Tablets Unknown 0 Vital Signs Date Vital [...] Specimen not received at refrigerated temperature. TEST: [id number] Thyrotropin Receptor Ab, Serum Panel: [id number] Medical Devices Description No Information Available Encounters [...]
--- OUTSIDE RECORDS SUMMARY | 2025-06-26 11:20 | XMS_ITS | Clinical Summary ---
Author Organization [facility] Address [address] [place] [address] Care Team Providers Care Chemical Sales Representative Name Role Phone Pcp, No Primary [...] Not on file Insurance MEDICARE PART A&B [facility] SUPPLEMENT Care Teams Chemical Sales Representative Relationship Specialty [place] [id number] PCP - General 07/31/19
--- OUTSIDE RECORDS SUMMARY | 2025-06-26 11:21 | XMS_ITS | Clinical Summary ---
Author Organization [facility] Facility Address [address] [place] [address] Care Team Providers Care Executive Casino Host Name Role Phone Tami Francis MD Primary Care Provider [phone] Allergies No known active allergies Medications amLODIPine [...] patient's age to complete this topic Insurance [facility] Medicare [facility] Medicare Care Teams Executive Casino Host Relationship Specialty Start Date End Date Tami Francis MD [address] [place] [address] PCP - General Internal Medicine 06/13/21
--- OUTSIDE RECORDS SUMMARY | 2025-06-26 11:21 | XMS_ITS | Clinical Summary ---
Author Organization [facility] Address [address] [place] [address] Care Team Providers Care Seam Hammerer Name Role Phone Tami Francis MD Primary Care Provider [phone] Allergies Active Allergy Reactions Criticality Noted Date [...] capsule by mouth daily. Active nystatin (MYCOSTATIN) 052383 UNIT/ML suspensionIndicat ions:Throat discomfort Take 5 mL [...] Description 07/18/2025 12:00 PM EDT Office Visit [facility] [address] [place] [address] Lyndon Aquino MD [address] [facility] [address] [place] [address] Health Maintenance Due Date Last [...] to complete this [place] [id number] MEDICARE PART A & B [facility] OUT [facility] MEDICARE PART A & B [facility] Advance Directives * Full Code (Latest Code Status on File) Date Activated Date Inactivated Comments 01/23/2023 6:34 PM Care Teams Seam Hammerer Relationship Specialty Start Date End Date Tami Francis MD [address] [place] [address] PCP - General Internal Medicine 01/23/23
[2025-06-28 06:25] VITALS: BP 137/71; PULSE 67; RESP 15; TEMP 36.2; O2SAT 92; BMI 20.8
[2025-06-28] MEDS: Lactated Ringers 1,000 ML 999 ML IV (06:32)
--- NOTE | 2025-06-28 07:06 | MHC.SHP ---
Pre-Procedural Eval Section A - 24 Hr Update-Section A only Date of Service: 06/28/25 The patient is an INPATIENT: No Section B - Complete if H&P > 30 days Chief Complaint: depression Details of Present Illness: inc depressive sx Medical History: Significant History (recurrent dep,diverticulosis,htn) Allergies: Allergies Allergy/AdvReac Type Severity Reaction Status Date / Time No Known Allergies Allergy Verified 10/28/24 07:13 Review of Systems Sugical H&P ROS: Yes, Specify: Constitution (fatigue anxiety), Neurological (some attentional st mem difficulty) and Psychiatric (severe depression anxiety) Exam Surgical H&P Exam: Normal: Heart, Normal: Lungs and Normal: Neurological Exam Comment: 137/71 Plan Diagnosis/Plan: Unchanged I have reviewed the history and physical and performed a pertinent physical examination on my patient. No changes have occurred unless specified. Time Spent With Patient Time: Total time managing care of this patient today ____ minutes.
--- NOTE | 2025-06-28 07:10 | P.PCN_ITS ---
ECT Procedure Note Diagnosis/Treatment Date of Service: 06/28/25 Diagnosis: Major Depressive Disorder Previous ECT Date: 02/24/25 Current Treatment Number: 1 Treatment: Series Interval Clinical Notes: Patient has had a significant relapse with depressive and anxiety symptoms has responded well to ECT in the past. No clear trigger. Patient remains on low- dose quetiapine Valium at bedtime Time: Total time managing care of this patient today ____ minutes. ECT Settings Device: THYMATRON DGx Electrode Placement: Bifrontal Program/Pulse Width: 0.50 Energy Percent: 100 Seizure Duration By EEG (in seconds): 36 Medications Administration General Anesthetic: Methohexital (70) Muscle Relaxant: Succinylcholine (80) Ancillary Medications Miscillaneous Medications: Flumazenil Airway Management Airway Management: Bag Mask Ventilation Treatment Recommendations No Changes Recommended: No change Pt Tolerated Procedure w/o Issue: Yes
[2025-06-28 07:30] VITALS: BP 181/85; PULSE 74; RESP 23; TEMP 36.6; O2SAT 98
[2025-06-28 07:35] VITALS: BP 164/80; PULSE 72; RESP 21; O2SAT 98
[2025-06-28 07:40] VITALS: BP 151/72; PULSE 73; RESP 16; O2SAT 97
[2025-06-28 07:45] VITALS: BP 163/78; PULSE 66; RESP 17; O2SAT 97
[2025-06-28 08:00] VITALS: BP 174/80; PULSE 67; RESP 20; TEMP 36.3; O2SAT 98
--- NOTE | 2025-06-28 09:10 | P.CONAN_ITS ---
HPI - Anesthesia Eval Consult details Narrative: For ECT - [facility] Active Problems Active Problems: All Active Problems Pre-op evaluation (Acute) Thyroid nodule (Acute) Major depressive disorder in partial remission (Acute) Delirium in remission (Acute) Major depressive disorder, recurrent, severe with psychotic features (Acute) Footdrop (Acute) Major depressive disorder, recurrent severe without psychotic features (Acute) Personality disorder (Acute) Organic catatonia (Acute) Abnormal EKG (Acute) Odynophagia (Acute) Paranoia (Acute) Dysphagia (Acute) Serotonin syndrome (Acute) Ataxia (Acute) Tremors of nervous system (Acute) Major depression in full remission (Acute) Memory deficit (Acute) ADHD (attention deficit hyperactivity disorder) (Acute) ZAC (generalized anxiety disorder) (Acute) Depression (Acute) Acute bacterial conjunctivitis of both eyes (Acute) Hypercalcemia (Acute) Hypothyroidism (Acute) Leukocytosis (Acute) Hypertension (Chronic) Past Medical History Medical History Pre-op evaluation Urinary tract infection Depression Hypothyroidism ZAC (generalized anxiety disorder) Hypertension ADHD (attention deficit hyperactivity disorder) Family History Family History Other No pertinent family history Family history of problems with anesthesia: No Surgical History Surgical History H/O thumb surgery H/O cone biopsy of cervix History of Problems with Anesthesia: No Social History Social History Household Members: Spouse Household Members Other:: And two cats. Housing: House Do you presently have visiting nurse or other home services: No Unable to assess alcohol history related to: Unknown Alcohol intake: never Patient Tobacco Use Status: Never used Tobacco Tobacco use type: Cigarette Years Smoked: 20 e-Cigarette/Vaping Use: Never Used Second Hand Smoke Exposure: No Substance Use Type: Former Substance User and Marijuana Advance Directives: No Advance Directives Information Provided: Yes service: No Sexual orientation: Straight/Heterosexual Meds Allergies Allergy/AdvReac Type Severity Reaction Status Date / Time No Known Allergies Allergy Verified 10/28/24 07:13 Home Medications ?Medication ?Instructions ?Recorded ?Confirmed ?Last Taken ?Type fluticasone propionate 50 1 spray intranasal BID 08/2706/23/25 Unknown History mcg/actuation nasal spray,suspension amlodipine 5 mg tablet 10 mg PO DAILY 07/12/2407/10 Unknown History famotidine 40 mg tablet 40 mg PO DAILY 11/03/2407/10 Unknown History Exam Height,Weight and Vital Signs: Height 5 ft 1 in Weight 49.895 kg Last Vital Signs Temp 97.4 F 06/28/25 08:00 Pulse 67 06/28/25 08:00 Resp 20 06/28/25 08:00 BP 174/80 H 06/28/25 08:00 Pulse Ox 98 06/28/25 08:00 O2 Del Method Room Air 06/28/25 08:00 Airway Mallampati Class: II TM Dist: <=3cm Neck ROM: Full Heart: ok Lungs: ok Assessment and Plan Assessment Anesthesia Assessment: Anesthesia Plan Discussed and Chart Reviewed Final Anesthetic Review Family History of Problems with Anesthesia: No History of Problems with Anesthesia: No NPO: Yes ASA Class: III Final Preanesthetic Review: No Changes in Pt Med Stat, Meds/Allgs Chart Reviewed, Consent Obtained/Reviewed and Anes Risks/Benef Reviewed Patient Risk: Intermediate Procedure Risk: Intermediate Anesthetic Plan Anesthetic Plan: GA and Agree w/ Assess. and Plan Disposition: Standard PACU
== END 2025-06-28 08:13 | disposition home or self-care (01) ==
PROVIDERS: PCP Internal Medicine; Visit Provider Psychiatry & Neurology Psychiatry
PROC: (CPT 90870; principal; 2025-06-28 08:00)
DX: F32.4 Major depressive disorder, single episode, in partial remission (principal); F41.9 Anxiety disorder, unspecified; F98.8 Other specified behavioral and emotional disorders with onset usually occurring in childhood and adolescence; I10 Essential (primary) hypertension; K21.9 Gastro-esophageal reflux disease without esophagitis; E05.90 Thyrotoxicosis, unspecified without thyrotoxic crisis or storm; E04.1 Nontoxic single thyroid nodule; Z79.899 Other long term (current) drug therapy
CPT/HCPCS: 90870; J0330; J2405

== ENCOUNTER → 2025-06-28 05:55 | Outpatient (BNV) | payer MEDICARE, SELFPAY | PROVIDERS: PCP Internal Medicine; Visit Provider Psychiatry & Neurology Psychiatry | DX: F33.2 Major depressive disorder, recurrent severe without psychotic features (principal) | CPT/HCPCS: 90870 ==

== ENCOUNTER 2025-07-03 05:51 | Day surgery (SDC) | payer MEDICARE, SELFPAY ==
[2025-07-03] VITALS (9 sets, daily range): BP systolic 143–181; BP diastolic 64–79; PULSE 58–68; RESP 16–18; TEMP 36.1–36.3; O2SAT 96–98; BMI 20.9
--- NOTE | 2025-07-03 06:38 | HO.ANESPROP2 ---
[facility] Active Problems Active Problems: All Active Problems Pre-op evaluation (Acute) Thyroid nodule (Acute) Major depressive disorder in partial remission (Acute) Delirium in remission (Acute) Major depressive disorder, recurrent, severe with psychotic features (Acute) Footdrop (Acute) Major depressive disorder, recurrent severe without psychotic features (Acute) Personality disorder (Acute) Organic catatonia (Acute) Abnormal EKG (Acute) Odynophagia (Acute) Paranoia (Acute) Dysphagia (Acute) Serotonin syndrome (Acute) Ataxia (Acute) Tremors of nervous system (Acute) Major depression in full remission (Acute) Memory deficit (Acute) ADHD (attention deficit hyperactivity disorder) (Acute) ZAC (generalized anxiety disorder) (Acute) Depression (Acute) Acute bacterial conjunctivitis of both eyes (Acute) Hypercalcemia (Acute) Hypothyroidism (Acute) Leukocytosis (Acute) Hypertension (Chronic) Past Medical History Medical History Pre-op evaluation Urinary tract infection Depression Hypothyroidism ZAC (generalized anxiety disorder) Hypertension ADHD (attention deficit hyperactivity disorder) Family History Family History Other No pertinent family history Family history of problems with anesthesia: No Surgical History Surgical History H/O thumb surgery H/O cone biopsy of cervix History of Problems with Anesthesia: No Social History Social History Household Members: Spouse Household Members Other:: And two cats. Housing: House Do you presently have visiting nurse or other home services: No Unable to assess alcohol history related to: Unknown Alcohol intake: never Patient Tobacco Use Status: Never used Tobacco Tobacco use type: Cigarette Years Smoked: 20 e-Cigarette/Vaping Use: Never Used Second Hand Smoke Exposure: No Substance Use Type: Former Substance User and Marijuana Advance Directives: No Advance Directives Information Provided: Yes service: No Sexual orientation: Straight/Heterosexual Meds Allergies Allergy/AdvReac Type Severity Reaction Status Date / Time No Known Allergies Allergy Verified 10/28/24 07:13 Home Medications ?Medication ?Instructions ?Recorded ?Confirmed ?Last Taken ?Type fluticasone propionate 50 1 spray intranasal BID 08/27/23 06/23/25 Unknown History mcg/actuation nasal spray,suspension amlodipine 5 mg tablet 10 mg PO DAILY 07/12/24 06/23/25 Unknown History famotidine 40 mg tablet 40 mg PO DAILY 11/03/24 06/23/25 Unknown History Exam Height,Weight and Vital Signs: Height 5 ft 1 in Weight 50.126 kg Last Vital Signs Temp 97.4 F 07/03/25 06:32 Pulse 61 07/03/25 06:32 Resp 16 07/03/25 06:32 Pulse Ox 96 07/03/25 06:32 O2 Del Method Room Air 07/03/25 06:32 Airway Mallampati Class: II TM Dist: >3cm Neck ROM: Full Heart: rrr Lungs: cta Assessment and Plan Assessment Anesthesia Assessment: Anesthesia Plan Discussed and Chart Reviewed Final Anesthetic Review Family History of Problems with Anesthesia: No History of Problems with Anesthesia: No NPO: Yes ASA Class: III Final Preanesthetic Review: No Changes in Pt Med Stat, Meds/Allgs Chart Reviewed and Consent Obtained/Reviewed Patient Risk: Intermediate Procedure Risk: Intermediate Anesthetic Plan Anesthetic Plan: GA Disposition: Standard PACU
--- NOTE | 2025-07-03 06:58 | MHC.SHP ---
Pre-Procedural Eval Section A - 24 Hr Update-Section A only Date of Service: 07/03/25 Section B - Complete if H&P > 30 days Chief Complaint: depression Allergies: Allergies Allergy/AdvReac Type Severity Reaction Status Date / Time No Known Allergies Allergy Verified 10/28/24 07:13 Review of Systems Sugical H&P ROS: Negative: Constitution Exam Surgical H&P Exam: Normal: HEENT, Normal: Extremities and Normal: Neurological Plan Diagnosis/Plan: Unchanged I have reviewed the history and physical and performed a pertinent physical examination on my patient. No changes have occurred unless specified. Time Spent With Patient Time: Total time managing care of this patient today __35__ minutes.
--- NOTE | 2025-07-03 07:21 | HO.ECTPROC ---
ECT Procedure Note Diagnosis/Treatment Date of Service: 07/03/25 Diagnosis: Major Depressive Disorder Previous ECT Date: 06/28/25 Current Treatment Number: 2 Interval Clinical Notes: feeling a little better in the past week Time: Total time managing care of this patient today __35__ minutes. ECT Settings Device: THYMATRON DGx Electrode Placement: Bifrontal Program/Pulse Width: 0.50 Energy Percent: 100 Seizure Duration By EEG (in seconds): 14 Medications Administration General Anesthetic: Methohexital (70) Muscle Relaxant: Succinylcholine (80) Ancillary Medications Anti-emetics: Zofran - Pre ECT Miscillaneous Medications: Flumazenil (500 mcg) Airway Management Airway Management: Bag Mask Ventilation Treatment Recommendations No Changes Recommended: No change Notes: brief seizure today. if future seizures continue as brief, consider strategies to increase length of seizure. Pt Tolerated Procedure w/o Issue: Yes
--- NOTE | 2025-07-03 09:21 | PC.NURSE ---
PATIENT UPSET STATING SHE WAS SOMEWHAT AWAKE DURING PROCEDURE. PATIENT'S ALSO UPSET BECAUSE OF SAME AND BECAUSE DR. FAIRCHILD DID PROCEDURE WHO THEY HAVEN'T BEEN INTRODUCED TO YET. DR. LUI CAME OVER TO TALK WITH THEM AND STATED SHE WOULD GET A HOLD OF DR. FARR.
--- NOTE | 2025-07-03 10:01 | HO.POSTANES ---
Post Anesthesia Evaluation Post Anesthesia Evaluation Date of Service: 07/03/25 Vital Signs: Vital Signs Temp Pulse Resp BP Pulse Ox O2 Del Method O2 Flow Rate 07/03/25 08:30 97.0 F 60 18 151/64 H 97 Room Air 2 07/03/25 08:15 60 18 143/74 H 97 Room Air 2 07/03/25 08:00 58 18 147/73 H 97 Nasal Cannula with ETCO2 2 07/03/25 07:45 64 18 151/78 H 98 Nasal Cannula with ETCO2 2 07/03/25 07:40 66 18 155/75 H 98 Nasal Cannula with ETCO2 2 07/03/25 07:35 97.0 F 66 18 160/76 H 98 Nasal Cannula with ETCO2 2 07/03/25 07:30 66 18 152/76 H 98 Nasal Cannula with ETCO2 2 07/03/25 07:25 97.0 F 68 18 181/79 H 98 Nasal Cannula with ETCO2 4 07/03/25 06:32 97.4 F 61 16 96 Room Air Anesthesia: General Mental Status: Awake Pain Control: Satisfactory Nausea/Vomiting: None Hydration: Adequate Comments: pt complained post procedure of hearing talking and feeling BP cuff for procedure. pt has had numerous ECT in the past with no complains. no awareness during procedure itself. I spoke to both patient and . would recommend midazolam post procedure. psychiatrist aware
== END 2025-07-03 09:24 | disposition home or self-care (01) ==
PROVIDERS: PCP Internal Medicine; Visit Provider Psychiatry & Neurology Psychiatry
PROC: (CPT 90870; principal; 2025-07-03 07:30)
DX: F33.2 Major depressive disorder, recurrent severe without psychotic features (principal); F41.1 Generalized anxiety disorder; F90.9 Attention-deficit hyperactivity disorder, unspecified type; I10 Essential (primary) hypertension; K21.9 Gastro-esophageal reflux disease without esophagitis; E05.90 Thyrotoxicosis, unspecified without thyrotoxic crisis or storm; E04.1 Nontoxic single thyroid nodule; Z79.899 Other long term (current) drug therapy; Z98.890 Other specified postprocedural states
CPT/HCPCS: 90870; J0330; J2405

== ENCOUNTER → 2025-07-03 05:51 | Outpatient (BNV) | payer MEDICARE, SELFPAY | PROVIDERS: PCP Internal Medicine; Visit Provider Psychiatry & Neurology Psychiatry | DX: F33.2 Major depressive disorder, recurrent severe without psychotic features (principal) | CPT/HCPCS: 90870 ==

== ENCOUNTER 2025-07-04 10:54 | Outpatient (AMB) | payer MEDICARE, SELFPAY ==
--- OUTSIDE RECORDS SUMMARY | 2025-07-03 10:20 | XMS_ITS ---
Author Organization [facility] Address [address] [address] Care Team Providers Care Manager Business Development Hospice Name Role Phone YASMANY ARCE M.D. Primary Care Provider Valorie Campos [phone] REASON FOR VISIT HR MEDICARE PE (YELLOW FORM DONE) Encounters Encounter Location Date Provider Diagnosis [facility] [address] [address] 07/03/2025 Valorie Luu Plan Of Treatment No Information Progress Notes * DENTON DENNISONHDOB:[birth year] (74 yo F)Acc No.[id number]:07/03/2025 PROGRESS NOTES Patient: TEDDY FAIR Appointment Provider: Tea Luu M.D. :1950 A ge:74 Y S ex:Female Date:07/03/2025 Address:[address] [place] [address], [place] [address] Pcp:YASMANY ARCE M.D. Subjective: * Chief Complaints: * 1 . HR MEDICARE PE (YELLOW FORM DONE). * Medical History: Objective: * Vitals: Assessment: Plan: * Treatment: * Images: Billing Information: * Visit Code: * Procedure Codes: * Electronic signature of Joyce Luu MD on 07/04/2025 at 12:24 PM EDT Sign off status: Pending * Appointment Provider: Tea Luu M.D. Date: 0 07/03/2025 Generated for Uri rogers/Charis/Yasmine on: 0 07/04/2025 12:24 PM EDT
--- OUTSIDE RECORDS SUMMARY | 2025-07-04 12:25 | XMS_ITS | Clinical Summary ---
Author Organization [facility] Address [address] [place] [address] Care Team Providers Care Sales Applications Engineer Name Role Phone Pcp, No Primary Care [...] Not on file Insurance MEDICARE PART A&B [facility] MCR SUPPLEMENT Care Teams Sales Applications Engineer Relationship Specialty [place] [id number] PCP - General 07/31/19
--- OUTSIDE RECORDS SUMMARY | 2025-07-04 12:25 | XMS_ITS | Continuity of Care Document ---
Author Organization [facility] Address [address] [facility] [address] [place] [address] Phone [phone] Care Team Providers Care Vice President Lending Name Role Phone Tami Francis M.D. Care Team Information Receiv er [phone] Problems Active Problems Provider Date Attention deficit [...] SIG Qnty Indications Order ing Provider Date Mlqcpxzc3bu Tablets Take 1/2 Tab Every Morning, 1/2 Tab Afternoon, 1 Tab Bedtime as Needed Unknown Quetiapine Djdglvae62mj Tablets Take 1 Tablet AT Bedtime, 1/2-1 Daily as Needed For Obsessional Thinking Unknown Ubhsfuodejw947ev Tablets Take One Tablet By Mouth Every Morning Unknown Bupropion Hydrochloride ER (XL)150mg Tablets ER 24HR Take 1 Tablet By Mouth Every Day Unknown Amlodipine Ggojjjbe66bm Tablets Take 1 Tablet By Mouth Every Day Tami Francis M.D. Kmgpcvflft68od Tablets Take 1 Tablet By Mouth Every Day Unknown Vitamin Z9705kg Tablets 1 by mouth every day Unknown Calcium 0312402(600Ca) mg Tablets 1 by mouth twice a day Unknown Bpdjxf74wp Tablets Unknown 0 Vital Signs Date Vital [...] Specimen not received at refrigerated temperature. TEST: [id number] Thyrotropin Receptor Ab, Serum Panel: [id number] Medical Devices Description No Information Available Encounters [...]
--- OUTSIDE RECORDS SUMMARY | 2025-07-04 12:25 | XMS_ITS | Clinical Summary ---
Author Organization [facility] Address [address] [place] [address] Care Team Providers Care Founder President And Ceo Name Role Phone Tami Francis MD Primary Care Provider [phone] Allergies No known active allergies Medications amLODIPine [...] to complete this topic Insurance [facility] Medicare [facility] Medicare Care Teams Founder President And Ceo Relationship Specialty Start Date End Date Tami Francis MD [address] [place] [address] PCP - General Internal Medicine 06/13/21
--- OUTSIDE RECORDS SUMMARY | 2025-07-04 12:25 | XMS_ITS | Clinical Summary ---
Author Organization [facility] Address [address] [place] [address] Care Team Providers Care Telesales Supervisor Name Role Phone Tami Francis MD Primary Care Provider [phone] Allergies Active Allergy Reactions Criticality Noted Date [...] capsule by mouth daily. Active nystatin (MYCOSTATIN) 977331 UNIT/ML suspensionIndicat ions:Throat discomfort Take 5 mL [...] Description 07/18/2025 12:00 PM EDT Office Visit [facility] [place] [address] [facility] [place] [address] Lyndon Aquino MD [address] [facility] [address] [place] [address] Health Maintenance Due Date Last [...] to complete this [place] [id number] MEDICARE PART A & B [facility] OUT [facility] MEDICARE PART A & B [facility] Advance Directives * Full Code (Latest Code Status on File) Date Activated Date Inactivated Comments 01/23/2023 6:34 PM Care Teams Telesales Supervisor Relationship Specialty Start Date End Date Tami Francis MD [address] [place] [address] PCP - General Internal Medicine 01/23/23
--- OUTSIDE RECORDS SUMMARY | 2025-07-04 12:25 | XMS_ITS | Clinical Summary ---
Author Organization [facility] [address] [facility] Address [address] [place] [address] Phone Care Team Providers Care Battery Tester Name Role Phone Tami Francis MD Primary Care Provider [phone] Allergies Active Allergy Reactions Criticality Noted Date Comments Erythromycin Unknown Medium 10/18/2024 Propoxyphene Unknown Medium 10/18/2024 Medications QUEtiapine (SEROquel) 25 mg tablet Active propranoloL (INDERAL) 20 mg tablet Take 1 tablet (20 mg total) by mouth 2 (two) times a day. 04/24/20 23 Active fluticasone propionate (FLONASE) 50 mcg/actuation nasal spray spray 1 spray (50 mcg) in each nostril by intranasal route 2 times per day Active FLUoxetine (PROzac) 40 mg capsule Take 2 capsules (80 mg total) by mouth. 04/24/20 23 Active Yuvafem 10 mcg tablet vaginal tablet INSERT 1 TABLET VAGINALLY TWICE A WEEK 90 DAYS Active diazePAM (VALIUM) 5 mg tablet Active brexpiprazole (Rexulti) 0.5 mg tablet Take 1 tablet (0.5 mg total) by mouth 1 (one) time each day. 04/27/20 23 Active ascorbic acid (VITAMIN C) 1,000 mg tablet Take by mouth. Activ e armodafiniL (NUVIGIL) 150 mg tablet Active amLODIPine (NORVASC) 5 mg tablet Take 1 tablet (5 mg total) by mouth 1 (one) time each day. Active amLODIPine (NORVASC) 10 mg tablet Active polyethylene glycol (Golytely) 236-22.74-6.74 -5.86 gram solution Take 4L by mouth once for one dose. May substitue any PEG. Starting at 2PM the day before your procedure drink 1 8oz glasses at your own pace until you complete half of the gallon. Finish 2nd half of the gallon at 8PM. 4000 mL 06/06/20 25 Active buPROPion SR (WELLBUTRIN SR) 150 mg 12 hr tablet Take 1 tablet (150 mg total) by mouth 2 (two) times a day. 04/18/20 25 Active famotidine (PEPCID) 40 mg tablet Take 1 tablet (40 mg total) by mouth at bedtime. Active bisacodyL (DULCOLAX) 5 mg EC tablet Take 2 tablets by mouth right before beginning bowel prep. See instructions provided by the office 2 tablet 06/06/20 25 025 Discontinued Encounters Date Type Department Care Team Description 06/20/2025 3:12 PM EDT Anesthesia Event [facility] [address] [place] [address] Olvin Bradford MD Chang, Daniel J, MD 06/20/2025 1:51 PM EDT - 06/20/2025 11:59 PM EDT Hospital Encounter [facility] [address] [place] [address] Ron Adam DO Saliga, Jesse L, MD Hayes, Brett L, OMAYRA Change in bowel habits Discharge Disposition: Home or Self Care 04/11/2025 1:40 PM EDT Office Visit [facility] [place] [address] [address] Germania Yu NP Diverticulitis (Primary Dx); Change in bowel habits; Diverticulosis of colon 04/11/2025 Telephone Gastroenterology [facility] [address] [address] Germania Yu NP from Last 3 Months Surgical History Surgery Date Site/Laterality Comments COLONOSCOPY PROCEDURE: HISTORICAL COLONOSCOPY Medical History Medical History Date Comments Esophageal reflux DX:Esophageal reflux Anxiety state DX:Anxiety state Postnasal drip DX:Postnasal dri p Esophageal dysmotility DX:Esopha geal dysmotility Hypertension Depression Social History Tobacco Use Types Packs/Day Years [...] on file Sexual Orientation Not on file Obstetrics History Last Filed Vital Signs Vital Sign Reading [...] Mass Index 20.78 06/20/2025 2:30 PM EDT Plan of Treatment Health Maintenance Due Date Last Done Comments Zoster Vaccines (1 of 2) 1999 Cholesterol Screening (Lipid Panel) 08/29/2024 Hepatitis C Screening 08/29/2024 Medicare Annual Wellness Visit 08/29/2024 Osteoporosis Screening (Bone Density Screening) 08/29/2024 Social Influencers of Health Screening 08/29/2024 Depression Screening 11/16/2024 Hypertension/CHF/CAD Annual BMP Blood Test 04/11/2025 COVID-19 Vaccine ( season) 2025 12/20/2024, 12/08/2022, 10/15/2021, Additional history exists Influenza Vaccine (#1) 2025 , 09/28/2023, 09/05/2020, Additional history exists Falls Risk Assessment 06/20/2026 06/20/2025 DTaP,Tdap,and Td Vaccines (2 - Td or Tdap) 11/30/2027 11/30/2017 Colorectal Cancer Screening: Colonoscopy 06/20/2030 06/20/2025 Pneumococcal Vaccine: 50+ Years Completed 12/22/2019, 11/27/2016 RSV Immunization Adult Patients Completed 03/10/2024 HIB Vaccines Aged Out No longer eligi ble based on patient's age to complete this topic HPV Vaccines Aged Out No longer eligi ble based on patient's age to complete this topic Hepatitis A Vaccines Aged Out No long er eligible based on patient's age to complete this topic Hepatitis B Vaccines Aged Out No long er eligible based on patient's age to complete this topic IPV Vaccines Aged Out No longer eligi ble based on patient's age to complete this topic MMR Vaccines Aged Out No longer eligi ble based on patient's age to complete this topic Meningococcal ACWY Vaccine Aged Out N o longer eligible based on patient's age to complete this topic Meningococcal B Vaccine Aged Out No l onger eligible based on patient's age to complete this topic RSV Immunization Patients Under 20 months Aged Out No longer eligible based on patient's age to complete this topic Varicella Vaccines Aged Out No longer eligible based on patient's age to complete this topic Procedures Procedure Name Priority Date/Time Associated Diagnosis Comments COLONOSCOPY Routine 06/20/2025 3:30 PM EDT Change in bowel habits TISSUE EXAM Routine 06/20/2025 3:25 PM EDT Change in bowel habits from Last 3 Months Results * COLONOSCOPY Anesthesia - MAC; [facility] ENDOSCOPY (06/20/2025 3:30 PM EDT) Anatomical Region [...] disease segment. Narrative 06/20/2025 3:31 PM EDT [facility] GI Patient Name: Miriam Dennison Procedure Date: 06/20/2025 3:10 PM Date of : 1950 Age: 74 Gender: Female Note Status: Finalized Attending MD: Ron Adam DO, [id number] Procedure Date No Time: 06/20/2025 Procedure: Colonoscopy [...] the physician, the nurse, the anesthesiologist, the jordan worker and the telegraph repeater technician in the pre-procedure area in the [...] retroflexion views. Procedure Code(s): --- Professional --- 97329, Colonoscopy, flexible; with removal of tumor(s), polyp(s), or other lesion(s) by snare technique Diagnosis Code(s): --- Professional --- K64.9, Unspecified hemorrhoids D12.5, Benign neoplasm of sigmoid colon D12.4, Benign neoplasm of descending colon K57.30, Diverticulosis of large intestine without perforation or abscess without bleeding CPT copyright 2020 [employer]. All rights reserved. The codes documented in this report are preliminary and upon brim and crown presser review may be revised to meet current compliance requirements. RON Adam DO 06/20/2025 3:31:11 PM This report has been signed electronically.Ron Adam DO Number of Addenda: 0 Note Initiated On: 06/20/2025 3:10 PM Scope Withdrawal Time: 0 hours 8 minutes 20 seconds Scope In: 3:17:07 PM Scope Out: 3:29:30 PM Endoscopy Department at [facility] - [address] [place] [address] Procedure Note Ron Adam DO - 06/20/2025 [facility] GI Patient Name: Miriam Dennison Procedure Date: 06/20/2025 3:10 PM Date of : 1950 Age: 74 Gender: Female Note Status: Finalized Attending MD: Ron Adam DO, [id number] Procedure Date No Time: 06/20/2025 Procedure: Colonoscopy [...] the physician, the nurse, the anesthesiologist, the jordan worker and thetechnician in the pre-procedure area in [...] retroflexion views. Procedure Code(s): --- Professional --- 01414, Colonoscopy, flexible; with removal of tumor(s), polyp(s), or other lesion(s) by snare technique Diagnosis Code(s): --- Professional --- K64.9, Unspecified hemorrhoids D12.5, Benign neoplasm of sigmoid colon D12.4, Benign neoplasm of descending colon K57.30, Diverticulosis of large intestine without perforation or abscess without bleeding CPT copyright 2020 [employer]. All rights reserved. The codes documented in this report are preliminary and upon brim and crown presser reviewmay be revised to meet current compliance requirements. RON Adam DO 06/20/2025 3:31:11 PM This report has been signed electronically.Ron Adam DO Number of Addenda: 0 Note Initiated On: 06/20/2025 3:10 PM Scope Withdrawal Time: 0 hours 8 minutes 20 seconds Scope In: 3:17:07 PM Scope Out: 3:29:30 PM Endoscopy Department at [facility] - [address] [place] [phone] IMPRESSION: - Hemorrhoids found on perianal exam. [...] chronic inflammation at the diverticular disease segment. us Ron Adam DO GI~PROCEDURE ORDERABLES Final Re sult * Tissue exam (06/20/2025 3:25 PM EDT) Final Diagnosis A. Large Intestine, Left/Descending Colon, polyps x2: - Tubular adenoma. - Hyperplastic polyp. B. Large Intestine, Sigmoid Colon, polyp: - Tubular adenoma. C. Large Intestine, Sigmoid Colon, biopsies: - Colonic mucosa with no specific pathologic changes. 06/22/2025 10:54 AM EDT [facility] ([facility] Gross Description A. Large Intestine, Left/Descending [...] on one slide. 06/22/2025 10:54 AM EDT [facility] Disclaimer Unless otherwise specified, all tissue is 10% NB formalin fixed and paraffin embedded. 06/22/2025 10:54 AM EDT [facility] Tissue Descending colon structure / Unknown 06/20/2025 3:25 PM EDT 06/21/2025 5:43 AM EDT Tissue specimen (specimen) Sigmoid colon structure / Unknown 06/20/2025 3:27 PM EDT 06/21/2025 5:43 AM EDT Tissue specimen (specimen) Sigmoid colon structure / Unknown 06/20/2025 3:28 PM EDT 06/21/2025 5:43 AM EDT Ron Adam DO LAB PATHOLOGY ORDERABLES Final R esult [facility] [address] [place] [address], from Last 3 Months [place] [id number] MEDICARE [facility] Care Teams Battery Tester Relationship Specialty Start Date End Date Tami Francis MD [address] [facility] [address] [address] PCP - General Internal Medicine 03/07/25
--- NOTE | 2025-07-04 15:41 | A.OFFPSYCH_ITS ---
Intake Intake Visit Reasons: Depression Allergies No Known Allergies Allergy (Verified 10/28/24 07:13) HPI- Psychiatric Chief Complaint: Depression HPI Narrative: Patient has against cycled down into depression and anxiety. This appears to have been triggered by issues related to her son chronic issues with her throat clearing. Patient is on Wellbutrin Valium t.i.d. PRN and Seroquel up to 75 or 100 at bedtime. Patient is being seen regularly counseling By Dr. Delia Riggs Past Psychiatric History: -Pt sees Dr. Shearer in OP setting recent hospitalization at the [facility] Has had often on relapses over the past year and half -Remote hx of IPLOC 12 yrs ago, recent admissions at [facility] since 2020 with at least 4 admissions in the last 2 years Mental Status Exam Mental Status Exam Patient Appearance: Well Grooomed Patient Orientation: Person, Place, Time and Situation Level of Consciousness: Awake and Appropriate Patient Behavior: Distractible Mood Description: Depressed and Apprehensive Affect Description: Appropriate and Constricted Patient Cognition Impaired: No Ability to Follow Directions: Good Speech Pattern: Clear Memory Description: Intact Hallucinations: None Delusions: Not Present Thought Process: Intact and Goal Oriented Thought Content: positive for Goal Oriented, positive for Preoccupation, negative for Suicidal Ideation or negative for Homicidal Ideation Depressive Symptoms: Increased Anxiety, Increased Irritability, Hopelessness, Increased Fatigue, Loss of Energy and Difficulty Concentrating Judgement: Good Assessment and Plan Assessment & Plan (1) Major depressive disorder, recurrent severe without psychotic features: Status: Acute Code(s): F33.2 - Major depressive disorder, recurrent severe without psychotic features (2) ADHD (attention deficit hyperactivity disorder): Status: Acute Code(s): F90.9 - Attention-deficit hyperactivity disorder, unspecified type (3) ZAC (generalized anxiety disorder): Status: Acute Code(s): F41.1 - Generalized anxiety disorder Plan Again discussed dust option of ECT if needed patient did just have ECT had difficulty with the anesthesia which did cause a significant amount of anxiety extensive discussion with patient and her regarding anesthesia in events during ECT and postop. What benefitted from being given benzodiazepine. Medications: Changed From quetiapine 25 - 50 mg (1 - 2 x 25 mg) PO BEDTIME 60 days 30 tabs 1RF To quetiapine can take additional 1 tab daily for 75 mg (3 x 25 mg) PO BEDTIME 120 tabs 1RF 30 days Counseling and coordination of Care Details-Self Mgmt counseling: Encouraged to maintain activity to challenge negative thinking patterns to not isolate stay outside do the things she enjoys doing Details-Med Mgmt counseling: Discussed option to do another ECT if necessary patient has responded generally to ECT Diagnosis and Prognosis Counseling: Impact of diagnosis on life functions Details: I spent [35] minutes reviewing the record, seeing the patient and documenting in the medical record. Counseling provided to the patient/caregiver as outlined below. Addressed patient/caregiver concerns regarding current medication regime including effective adherence. Addressed patient/caregiver concerns regarding diagnosis and prognosis including accuracy of diagnosis, prognosis over time, impact of diagnosis. Addressed patient/caregiver concerns regarding impact of recent stressors. [facility] Medical History Pre-op evaluation Urinary tract infection Depression Hypothyroidism ZAC (generalized anxiety disorder) Hypertension ADHD (attention deficit hyperactivity disorder) Surgical History H/O thumb surgery H/O cone biopsy of cervix Family History Other No pertinent family history Social History Household Members: Spouse Household Members Other:: And two cats. 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 she does occasionally smoke marijuana Substance History: Denies Trauma History: NA Coding Level of Care Code Est Pt Level 3 (59486) Therapy 30m w/E&M (75269) Diagnoses Major depressive disorder, recurrent severe without psychotic features F33.2 ADHD (attention deficit hyperactivity disorder) F90.9 ZAC (generalized anxiety disorder) F41.1
== END 2025-07-04 11:45 | disposition home or self-care (01) ==
LOC: HO.HOP 10:54
PROVIDERS: PCP Internal Medicine; Visit Provider Psychiatry & Neurology Psychiatry
DX: F33.2 Major depressive disorder, recurrent severe without psychotic features (principal); F90.9 Attention-deficit hyperactivity disorder, unspecified type; F41.1 Generalized anxiety disorder
CPT/HCPCS: 90833; 99213

== ENCOUNTER → 2025-07-04 10:54 | Outpatient (BNVA) | payer MEDICARE, SELFPAY | PROVIDERS: PCP Internal Medicine; Visit Provider Psychiatry & Neurology Psychiatry | DX: F33.2 Major depressive disorder, recurrent severe without psychotic features (principal); F90.9 Attention-deficit hyperactivity disorder, unspecified type; F41.1 Generalized anxiety disorder; Z79.899 Other long term (current) drug therapy | CPT/HCPCS: 99212 ==

== ENCOUNTER 2025-07-13 10:16 | Outpatient (AMB) | payer MEDICARE, SELFPAY ==
--- OUTSIDE RECORDS SUMMARY | 2024-03-23 09:00 | XMS_ITS ---
Author Organization [facility] [employer] [facility] Address [address] [address] Care Team Providers Care Maintenance Technician Name Role Phone YASMANY ARCE M.D. Primary Care Provider Valorie Campos [phone] Allergies Allergen (clinical drug ingredient) Drug/Non Drug Allergy documented on EMR Reaction Allergy Type Onset Date Status DARVON Unknown Drug Allergy Active erythromycin ERYTHROMYCIN Unknown Drug Allergy A ctive REASON FOR VISIT HR MEDICARE PE Encounters Encounter Location Date Provider Diagnosis [facility] [employer] [address] [address] 03/23/2024 Valorie Luu Plan Of Treatment No Information Progress Notes * DENTON DENNISONHDOB:[birth year] (74 yo F)Acc No.[id number]:03/23/2024 PROGRESS NOTES Patient: TEDDY FAIR Appointment Provider: Tea Luu M.D. :1950 A ge:73 Y S ex:Female Date:03/23/2024 Address:[address] [place] [address], [place] [address] Pcp:YASMANY ARCE M.D. Subjective: * Chief Complaints: [...] on cytologic smear of cervix (ASC-US). 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 S [...] Electronic signature of Joyce Luu MD on 07/13/2025 at 11:31 AM EDT Sign off status: Pending * Appointment Provider: Tea Luu M.D. Date: 0 03/23/2024 Generated for Uri rogers/Charis/Aritting on: 0 07/13/2025 11:31 AM EDT
--- OUTSIDE RECORDS SUMMARY | 2025-07-03 10:20 | XMS_ITS ---
Author Organization [facility] Address [address] [address] Care Team Providers Care Salon Supervisor Name Role Phone YASMANY ARCE M.D. Primary Care Provider Valorie Campos [phone] REASON FOR VISIT HR MEDICARE PE (YELLOW FORM DONE) Encounters Encounter Location Date Provider Diagnosis [facility] [address] [address] 07/03/2025 Valorie Luu Plan Of Treatment No Information Progress Notes * DENTON DENNISONHDOB:[birth year] (74 yo F)Acc No.[id number]:07/03/2025 PROGRESS NOTES Patient: TEDDY FAIR Appointment Provider: Tea Luu M.D. :1950 A ge:74 Y S ex:Female Date:07/03/2025 Address:[address] [place] [address], [place] [address] Pcp:YASMANY ARCE M.D. Subjective: * Chief Complaints: * 1 . HR MEDICARE PE (YELLOW FORM DONE). * Medical History: Objective: * Vitals: Assessment: Plan: * Treatment: * Images: Billing Information: * Visit Code: * Procedure Codes: * Electronic signature of Joyce Luu MD on 07/13/2025 at 11:30 AM EDT Sign off status: Pending * Appointment Provider: Tea Luu M.D. Date: 0 07/03/2025 Generated for Uri rogers/Charis/Aritting on: 0 07/13/2025 11:30 AM EDT
--- NOTE | 2025-07-13 11:03 | MHC.OFFVISPS ---
Intake Intake Visit Reasons: depression Allergies No Known Allergies Allergy (Verified 10/28/24 07:13) HPI- Psychiatric Chief Complaint: depression HPI Narrative: Patient seen psychiatric follow-up with her . Patient continues to have some symptoms of depression anxiety rumination. Still trigger struggles to keep up with her obligations. Still has somatic worries Past Psychiatric History: -Pt sees Dr. Shearer in OP setting recent hospitalization at the [place] [facility] Has had often on relapses over the past year and half -Remote hx of IPLOC 12 yrs ago, recent admissions at [facility] since 2020 with at least 4 admissions in the last 2 years Mental Status Exam Mental Status Exam Patient Appearance: Well Grooomed Patient Orientation: Person, Place, Time and Situation Level of Consciousness: Awake and Appropriate Patient Behavior: Distractible Behavior Comments: Dunn affect less depressed Mood Description: Apprehensive Affect Description: Appropriate and Constricted Patient Cognition Impaired: No Ability to Follow Directions: Good Speech Pattern: Clear Memory Description: Intact Hallucinations: None Delusions: Not Present Thought Process: Intact and Goal Oriented Thought Content: positive for Goal Oriented, positive for Preoccupation, negative for Suicidal Ideation or negative for Homicidal Ideation Depressive Symptoms: Increased Anxiety, Increased Irritability, Hopelessness and Difficulty Concentrating Judgement: Good Judgement and Insight: Improved mood less catastrophic can still tend to ruminate Assessment and Plan Assessment & Plan (1) ZAC (generalized anxiety disorder): Status: Acute Code(s): F41.1 - Generalized anxiety disorder (2) Major depressive disorder, recurrent severe without psychotic features: Status: Acute Code(s): F33.2 - Major depressive disorder, recurrent severe without psychotic features Plan Continue are modafinil Wellbutrin Seroquel at HS Valium as needed up to 3 times a day. Continue individual therapy patient does see her therapist weekly and finds this quite helpful. Some improvement since ECT continue plan of care Seroquel up to 75 Valium Wellbutrin Counseling and coordination of Care Details-Self Mgmt counseling: Encourage techniques to modulate anxiety symptoms Medication management counseling: Effectiveness and Side effects Details: I spent [30] minutes reviewing the record, seeing the patient and documenting in the medical record. Counseling provided to the patient/caregiver as outlined below. Addressed patient/caregiver concerns regarding current medication regime including effective adherence. Addressed patient/caregiver concerns regarding diagnosis and prognosis including accuracy of diagnosis, prognosis over time, impact of diagnosis. Addressed patient/caregiver concerns regarding impact of recent stressors. [facility] Medical History Pre-op evaluation Urinary tract infection Depression Hypothyroidism ZAC (generalized anxiety disorder) Hypertension ADHD (attention deficit hyperactivity disorder) Surgical History H/O thumb surgery H/O cone biopsy of cervix Family History Other No pertinent family history Social History Household Members: Spouse Household Members Other:: And two cats. 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 she does occasionally smoke marijuana Substance History: Denies Trauma History: NA Coding Level of Care Code Est Pt Level 4 (85334) Diagnoses ZAC (generalized anxiety disorder) F41.1 Major depressive disorder, recurrent severe without psychotic features F33.2
--- OUTSIDE RECORDS SUMMARY | 2025-07-13 11:31 | XMS_ITS | Clinical Summary ---
Author Organization [facility] 299 [facility] Address [address] [place] [address] Phone Care Team Providers Care Gas Plumbing Inspector Name Role Phone Tami Francis MD Primary [...] Description 06/20/2025 3:12 PM EDT Anesthesia Event [facility] Endoscopy [address] [place] [address] Olvin Bradford MD Chang, Daniel J, MD 06/20/2025 1:51 PM EDT - 06/20/2025 11:59 PM EDT Hospital Encounter [facility] Endoscopy [address] [place] [phone] Ron Adam DO Saliga, Jesse L, MD Hayes, Brett L, CRNA Change in bowel habits Discharge Disposition: Home or Self Care from Last 3 Months Surgical History Surgery [...] Months Results * COLONOSCOPY Anesthesia - [facility]; [facility] ENDOSCOPY (06/20/2025 3:30 PM EDT) Anatomical [...] disease segment. Narrative 06/20/2025 3:31 PM EDT [facility] GI Patient Name: Miriam Dennison Procedure Date: 06/20/2025 3:10 PM Date of : 1950 Age: 74 Gender: Female Note Status: Finalized Attending MD: Ron Adam DO, [id number] Procedure Date No Time: 06/20/2025 Procedure: Colonoscopy [...] the physician, the nurse, the anesthesiologist, the casket upholsterer and the critical power install technician in the pre-procedure area in the [...] retroflexion views. Procedure Code(s): --- Professional --- 89064, Colonoscopy, flexible; with removal of tumor(s), polyp(s), or other lesion(s) by snare technique Diagnosis Code(s): --- Professional --- K64.9, Unspecified hemorrhoids D12.5, Benign neoplasm of sigmoid colon D12.4, Benign neoplasm of descending colon K57.30, Diverticulosis of large intestine without perforation or abscess without bleeding CPT copyright 2020 [employer]. All rights reserved. The codes documented in this report are preliminary and upon apprentice embalmer review may be revised to meet current compliance requirements. RON Adam DO 06/20/2025 3:31:11 PM This report has been signed electronically.Ron Adam DO Number of Addenda: 0 Note Initiated On: 06/20/2025 3:10 PM Scope Withdrawal Time: 0 hours 8 minutes 20 seconds Scope In: 3:17:07 PM Scope Out: 3:29:30 PM Endoscopy Department at [facility] - [address] [place] [phone] Procedure Note Ron Adam DO - 06/20/2025 [facility] GI Patient Name: Miriam Dennison Procedure Date: 06/20/2025 3:10 PM Date of : 1950 Age: 74 Gender: Female Note Status: Finalized Attending MD: Ron Adam DO, [id number] Procedure Date No Time: 06/20/2025 Procedure: Colonoscopy [...] the physician, the nurse, the anesthesiologist, the casket upholsterer and thetechnician in the pre-procedure area in [...] retroflexion views. Procedure Code(s): --- Professional --- 16788, Colonoscopy, flexible; with removal of tumor(s), polyp(s), or other lesion(s) by snare technique Diagnosis Code(s): --- Professional --- K64.9, Unspecified hemorrhoids D12.5, Benign neoplasm of sigmoid colon D12.4, Benign neoplasm of descending colon K57.30, Diverticulosis of large intestine without perforation or abscess without bleeding CPT copyright 2020 [employer]. All rights reserved. The codes documented in this report are preliminary and upon apprentice embalmer reviewmay be revised to meet current compliance requirements. RON Adam DO 06/20/2025 3:31:11 PM This report has been signed electronically.Ron Adam DO Number of Addenda: 0 Note Initiated On: 06/20/2025 3:10 PM Scope Withdrawal Time: 0 hours 8 minutes 20 seconds Scope In: 3:17:07 PM Scope Out: 3:29:30 PM Endoscopy Department at [facility] - [address] [place] [phone] IMPRESSION: - Hemorrhoids found on perianal exam. [...] specific pathologic changes. 06/22/2025 10:54 AM EDT [facility]) [facility] Gross Description A. Large Intestine, [...] one piece, multiple levels on one slide. JH 06/22/2025 10:54 AM EDT [facility] Disclaimer Unless otherwise specified, all tissue is 10% NB formalin fixed and paraffin embedded. 06/22/2025 10:54 AM EDT [facility] Tissue Descending colon structure / Unknown 06/20/2025 3:25 PM EDT 06/21/2025 5:43 AM EDT Tissue specimen (specimen) Sigmoid colon structure / Unknown 06/20/2025 3:27 PM EDT 06/21/2025 5:43 AM EDT Tissue specimen (specimen) Sigmoid colon structure / Unknown 06/20/2025 3:28 PM EDT 06/21/2025 5:43 AM EDT us Ron Adam DO LAB PATHOLOGY ORDERABLES Final R esult [facility] [address] [place] [address], from Last 3 Months Insurance MEDICARE [facility] Care Teams Gas Plumbing Inspector Relationship Specialty Start Date End Date Tami Francis MD [address] [address] PCP - General Internal Medicine 03/07/25
--- OUTSIDE RECORDS SUMMARY | 2025-07-13 11:31 | XMS_ITS | Patient Health Record ---
Author Organization [employer] [facility] Address [address] [address] Care Team Providers Care Director Strategic Planning Name Role Phone YASMANY ARCE M.D. Primary Care Provider Valorie Campos Unavailable [phone] Allergies Allergen (clinical drug ingredient) Drug/Non Drug Allergy documented on EMR Reaction Allergy Type Onset Date Status DARVON Unknown Drug Allergy Active erythromycin ERYTHROMYCIN Unknown Drug Allergy A ctive Reason For Referral No Information Medications Medication SIG (Take, Route, Frequency, Duration) Notes Start Date End Date Status Yuvafem 10 MCG 1 tablet Vaginal TWICE A WEEK; Duration: 90 days 06/27/2024 Active Trintellix 10 MG TAKE 1 TABLET BY MOUTH EVERY DAY Oral; Duration: 90 Days Active Multivitamins 1 ORAL daily; Duration: -3 [facility] 01/20/2012 Active amLODIPine Besylate 5MG 1 ORAL daily; Duration: -3 [facility] NORVASC 06/28/2012 Active Yuvafem 10 MCG 1 tablet Vaginal TWICE A WEEK; Duration: 90 days 03/16/2023 Active Losartan Potassium 50 MG Oral; Duration: 90 Days Active Vitamin E 400 UNIT 1 capsule Orally Once a day; Duration: 30 day(s) Active Calcium-D 600MG 1 ORAL daily; Duration: -3 [facility] 01/20/2012 Active Armodafinil 150 MG TAKE ONE TABLET BY MOUTH EVERY MORNING Oral; Duration: 30 Days Active Vitamin C 500MG 2 grams ORAL daily [facility] 04/24/2014 Active diazePAM 5 MG Oral; Duration: 30 Days Active Social History Tobacco Use: [...] I disorder, most recent episode depressed (disorder) (92066421) Bipolar I disorder, most recent episode (or current) depressed, unspecified (296.50) Active confirmed Problem Carcinoma in situ of cervix uteri (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 confirmed Problem Essential hypertension (84658992) Unspecified essential hypertension (401.9) Active confirmed Problem Menopausal symptom (32757863) Symptomatic menopausal or female climacteric states (627.2) Active confirmed Problem Disorder of bone and articular cartilage (disorder) (331437505) Disorder of bone and cartilage, unspecified (733.90) Active confirmed Problem Postmenopausal atrophic vaginitis (38289062) Postmenopausal atrophic vaginitis (N95.2) Active confirmed Problem Age-related osteoporosis (833744640) Age-related osteoporosis without current pathological fracture (M81.0) Active confirmed Problem History of dysplasia of cervix (736460818) Personal history of cervical dysplasia (Z87.410) Active confirmed Problem General examination of patient (040121923) Routine general medical examination at health care facility (V70.0) Active confirmed Diag Problem Gynecological examination normal (544685282275765) Routine gynecological examination (V72.31) Active confirmed Problem Screening for malignant neoplasm of colon (895263982) Special screening for malignant neoplasms, colon (V76.51) Active confirmed Major Plan Of Treatment Pending Test Test Name [...] Screening 03/16/2023 [facility] Digital Mammo Screening 05/30/2021 Insurance Providers Payer Name Payer Address Payer Phone Subscriber Number Group Number Insured Name Patient Relationship to Insured Coverage Start Date Coverage End Date MEDICARE [address] MARY KANG [id number] TEDDY DENNISON Self - patient is the insured MEDEX [address] [place] [address] [id number] TEDDY DENNISON Self - patient is the insured Medical [...]
--- OUTSIDE RECORDS SUMMARY | 2025-07-13 11:31 | XMS_ITS | Clinical Summary ---
Author Organization [facility] Address [address] [place] [address] Care Team Providers Care Traffic Rate Analyst Name Role Phone Taim Francis MD Primary Care Provider [phone] Allergies Active Allergy Reactions Criticality Noted Date [...] capsule by mouth daily. Active nystatin (MYCOSTATIN) 865364 UNIT/ML suspensionIndicat ions:Throat discomfort Take 5 mL [...] Description 07/18/2025 12:00 PM EDT Office Visit [facility] [place] [address] [facility], [place] [address] Lyndon Aquino MD [address] [facility] [address] [place] [address] Health Maintenance Due Date Last [...] to complete this [place] [id number] MEDICARE PART A & B [facility] MEDICARE PART A & B [facility] Advance Directives * Full Code (Latest Code Status on File) Date Activated Date Inactivated Comments 01/23/2023 6:34 PM Care Teams Traffic Rate Analyst Relationship Specialty Start Date End Date Tami Francis MD [address] [place] [address] PCP - General Internal Medicine 01/23/23
--- OUTSIDE RECORDS SUMMARY | 2025-07-13 11:31 | XMS_ITS | Clinical Summary ---
Author Organization [facility] Facility Address [address] [place] [address] Care Team Providers Care Finish Carpenter Name Role Phone Tami Francis MD Primary Care Provider [phone] Allergies No known active allergies Medications amLODIPine [...] patient's age to complete this topic Insurance [facility] Medicare [facility] Medicare Care Teams Finish Carpenter Relationship Specialty Start Date End Date Tami Francis MD [address] [place] [address] PCP - General Internal Medicine 06/13/21
--- OUTSIDE RECORDS SUMMARY | 2025-07-13 11:31 | XMS_ITS | Clinical Summary ---
Author Organization [facility] Address [address] [place] [address] Care Team Providers Care Talent Analyst Name Role Phone Pcp, No Primary Care [...] Not on file Insurance MEDICARE PART A&B [facility] MCR SUPPLEMENT Care Teams Talent Analyst Relationship Specialty [place] [id number] PCP - General 07/31/19
== END 2025-07-13 11:07 | disposition home or self-care (01) ==
LOC: HO.HOP 10:16
PROVIDERS: PCP Internal Medicine; Visit Provider Psychiatry & Neurology Psychiatry
DX: F41.1 Generalized anxiety disorder (principal); F33.2 Major depressive disorder, recurrent severe without psychotic features
CPT/HCPCS: 99214

== ENCOUNTER → 2025-07-13 10:16 | Outpatient (BNVA) | payer MEDICARE, SELFPAY | PROVIDERS: PCP Internal Medicine; Visit Provider Psychiatry & Neurology Psychiatry | DX: F41.1 Generalized anxiety disorder (principal); F33.2 Major depressive disorder, recurrent severe without psychotic features | CPT/HCPCS: 99212 ==

== ENCOUNTER 2025-08-15 15:01 | Outpatient (AMB) | payer MEDICARE, SELFPAY ==
--- OUTSIDE RECORDS SUMMARY | 2024-03-23 09:00 | XMS_ITS ---
Author Organization [facility] [employer] [facility] Address [address] [facility] [address] [place] [address] Care Team Providers Care Science Interpreter Name Role Phone YASMANY ARCE M.D. Primary Care Provider Valorie Campos [phone] Allergies Allergen (clinical drug ingredient) Drug/Non Drug Allergy documented on EMR Reaction Allergy Type Onset Date Status DARVON Unknown Drug Allergy Active erythromycin ERYTHROMYCIN Unknown Drug Allergy A ctive REASON FOR VISIT HR MEDICARE PE Encounters Encounter Location Date Provider Diagnosis [facility] [employer] [address] [place] [address] 03/23/2024 Valorie Luu Plan Of Treatment Next Appt Details Provider Name:Valorie montesinos, 12/18/2025 01:20:00 PM, [address] [facility], [address], [place], [address], Progress Notes * DENTON DENNISONHDOB:[birth year] (74 yo F)Acc No.[id number]:03/23/2024 PROGRESS NOTES Patient: TEDDY FAIR Appointment Provider: Tea Luu M.D. :1950 A ge:73 Y S ex:Female Date:03/23/2024 Address:[address] [place] [address], [id number] Pcp:YASMANY ARCE M.D. Subjective: * Chief Complaints: [...] on cytologic smear of cervix (ASC-US). 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 S [...] Electronic signature of Joyce Luu MD on 08/15/2025 at 04:24 PM EDT Sign off status: Pending * Appointment Provider: Tea Luu M.D. Date: 0 03/23/2024 Generated for Uri rogers/Charis/Aritting on: 0 08/15/2025 04:24 PM EDT
--- OUTSIDE RECORDS SUMMARY | 2025-07-03 10:20 | XMS_ITS ---
Author Organization [facility] Address [address] [address] Care Team Providers Care Structural Designer Name Role Phone YASMANY ARCE M.D. Primary Care Provider Valorie Campos Unavailable [phone] REASON FOR VISIT HR MEDICARE PE (YELLOW FORM DONE) Encounters Encounter Location Date Provider Diagnosis [facility] [address] [address] 07/03/2025 Valorie Luu Plan Of Treatment Next Appt Details Provider Name:Valorie chahalbertram, 12/18/2025 01:20:00 PM, [address] [place] [address], [address], [place], [address], Progress Notes * DENTON DENNISONHDOB:[birth year] (74 yo F)Acc No.[id number]:07/03/2025 PROGRESS NOTES Patient: TEDDY FAIR Appointment Provider: Bertram Luu M.D. :1950 A ge:74 Y S ex:Female Date:07/03/2025 Address:[address] [place] [address], [facility] Pcp:YASMANY ARCE M.D. Subjective: * Chief Complaints: [...] 0 07/03/2025 Generated for Uri rogers/Charis/Yasmine on: 0 08/15/2025 04:24 PM EDT
--- NOTE | 2025-08-15 15:37 | A.OFFPSYCH_ITS ---
Intake Intake Visit Reasons: depression Allergies No Known Allergies Allergy (Verified 10/28/24 07:13) HPI- Psychiatric Chief Complaint: depression HPI Narrative: Patient seen psychiatric follow-up with her . Patient generally doing better less in the way of catastrophic thinking and intrusive thinking about her physical health. Has been finding individual counseling to be very helpful in moderating her thinking patterns. Patient has been able to maintain her activity level no evidence of abnormal movement. Patient aware if chronic risk of tardive dyskinesia increase blood sugar on Seroquel. Patient does tend to have quick brief relapses has been managing better generally maintaining her functioning even when feeling somewhat down. Continues on Wellbutrin Seroquel diazepam at bedtime only did have 1 ECT in June. Has been feeling good about her son's connection with his girlfriend somewhat disappointed over her recent cancellation regarding a visit. Patient does tend to be a worrier is generally reassuring Past Psychiatric History: -Pt sees Dr. Shearer in OP setting recent hospitalization at the [facility] Has had often on relapses over the past year and half -Remote hx of IPLOC 12 yrs ago, recent admissions at [facility] since 2020 with at least 4 admissions in the last 2 years Mental Status Exam Mental Status Exam Patient Appearance: Well Grooomed Patient Orientation: Person, Place, Time and Situation Level of Consciousness: Awake and Appropriate Patient Behavior: Appropriate and Cooperative Behavior Comments: Dunn affect less preoccupations Mood Description: Apprehensive Affect Description: Appropriate Patient Cognition Impaired: No Ability to Follow Directions: Good Speech Pattern: Clear Memory Description: Intact Hallucinations: None Delusions: Not Present Thought Process: Intact and Goal Oriented Thought Content: positive for Goal Oriented, positive for Preoccupation, negative for Suicidal Ideation or negative for Homicidal Ideation Depressive Symptoms: Increased Anxiety, Increased Irritability, Hopelessness and Difficulty Concentrating Judgement: Good Judgement and Insight: Improved mood less catastrophic can still tend to ruminate Assessment and Plan Assessment & Plan (1) Major depressive disorder in partial remission: Status: Acute Qualifiers: Major depression recurrence: recurrent Qualified Code(s): F33.41 - Major depressive disorder, recurrent, in partial remission Code(s): F32.4 - Major depressive disorder, single episode, in partial remission (2) ADHD (attention deficit hyperactivity disorder): Status: Acute Code(s): F90.9 - Attention-deficit hyperactivity disorder, unspecified type (3) ZAC (generalized anxiety disorder): Status: Acute Code(s): F41.1 - Generalized anxiety disorder Plan Patient better able to use internal psychological skills and challenging negative thinking in a more useful way has been feeling outpatient individual counseling with her therapist has been quite helpful. Feels current combination of Seroquel 50 at bedtime Wellbutrin generally effective. Able to put her concerns regarding her medical health and better perspective does tend to ruminate regarding her throat in increased secretions but less in the way of catastrophic thinking regarding this. We will be having treatment for thyroid goiter with radioactive iodine Counseling and coordination of Care Medication management counseling: Effectiveness, Side effects and Dosing range Diagnosis and Prognosis Counseling: Impact of diagnosis on life functions and Adequacy of current interventions Details: I spent [30] minutes reviewing the record, seeing the patient and documenting in the medical record. Counseling provided to the patient/caregiver as outlined below. Addressed patient/caregiver concerns regarding current medication regime including eff ective adherence. Addressed patient/caregiver concerns regarding diagnosis and prognosis including accuracy of diagnosis, prognosis over time, impact of diagnosis. Addressed patient/caregiver concerns regarding impact of recent stressors. [facility] Medical History Pre-op evaluation Urinary tract infection Depression Hypothyroidism ZAC (generalized anxiety disorder) Hypertension ADHD (attention deficit hyperactivity disorder) Surgical History H/O thumb surgery H/O cone biopsy of cervix Family History Other No pertinent family history Social History Household Members: Spouse Household Members Other:: And two cats. 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 she does occasionally smoke marijuana Substance History: Denies Trauma History: NA Coding Level of Care Code Est Pt Level 4 (60751) Diagnoses Recurrent major depressive disorder, in partial remission F33.41 Major depression recurrence: recurrent ADHD (attention deficit hyperactivity disorder) F90.9 ZAC (generalized anxiety disorder) F41.1
--- OUTSIDE RECORDS SUMMARY | 2025-08-15 16:24 | XMS_ITS | Clinical Summary ---
Author Organization [facility] Facility Address [address] [place] [address] Care Team Providers Care Hydropulper Operator Name Role Phone Tami Francis MD Primary Care Provider [phone] Allergies No known active allergies Medications amLODIPine [...] patient's age to complete this topic Insurance [facility] Medicare [facility] Medicare Care Teams Hydropulper Operator Relationship Specialty Start Date End Date Tami Francis MD [address] [place] [address] PCP - General Internal Medicine 06/13/21
--- OUTSIDE RECORDS SUMMARY | 2025-08-15 16:24 | XMS_ITS | Clinical Summary ---
Author Organization [facility] Address [address] [place] [address] Care Team Providers Care Social Service Worker Name Role Phone Pcp, No Primary Care [...] Not on file Insurance MEDICARE PART A&B [facility] MCR SUPPLEMENT Care Teams Social Service Worker Relationship Specialty [place] [id number] PCP - General 07/31/19
--- OUTSIDE RECORDS SUMMARY | 2025-08-15 16:25 | XMS_ITS | Clinical Summary ---
Author Organization [facility] 299 [facility] Address [address] [place] [address] Phone Care Team Providers Care Delivery Associate Name Role Phone Tami Francis MD Primary Care Provider [phone] Allergies Active Allergy Reactions Criticality Noted Date Comments Erythromycin Unknown Medium 10/18/2024 Propoxyphene Unknown Medium 10/18/2024 Medications QUEtiapine (SEROquel) 25 mg tablet Active propranoloL (INDERAL) 20 mg tablet Take 1 tablet (20 mg total) by mouth 2 (two) times a day. 3 Active fluticasone propionate (FLONASE) 50 mcg/actuation nasal spray spray 1 spray (50 mcg) in each nostril by intranasal route 2 times per day Active FLUoxetine (PROzac) 40 mg capsule Take 2 capsules (80 mg total) by mouth. 3 Active Yuvafem 10 mcg tablet vaginal tablet INSERT 1 TABLET VAGINALLY TWICE A WEEK 90 DAYS Active diazePAM (VALIUM) 5 mg tablet Active brexpiprazole (Rexulti) 0.5 mg tablet Take 1 tablet (0.5 mg total) by mouth 1 (one) time each day. 3 Active ascorbic acid (VITAMIN C) 1,000 mg tablet Take by mouth. Active armodafiniL (NUVIGIL) 150 mg tablet Active amLODIPine [...] of the gallon at 8PM. 4000 mL 5 Active buPROPion SR (WELLBUTRIN SR) 150 mg 12 hr tablet Take 1 tablet (150 mg total) by mouth 2 (two) times a day. 5 Active famotidine (PEPCID) 40 mg tablet Take 1 tablet (40 mg total) by mouth at bedtime. Active Encounters Date Type Department Care Team Description 06/20/2025 3:12 PM EDT Anesthesia Event [facility] Endoscopy [address] [place] [phone] Olvin Bradford MD Chang, Daniel J, MD 06/20/2025 1:51 PM EDT - 06/20/2025 11:59 PM EDT Hospital Encounter [facility] Endoscopy [address] [place] [phone] Ron Adam DO Saliga, Jesse L, MD [...] Safety Answer Date Record ed Physical Abuse Unrecognized value 06/20/2025 Verbal Abuse Unrecognized value 06/20/2025 Comments Unknown Sex and Gender Information [...] 3 Months Results * [facility]OSCOPY [facility] - [facility] END[facility]COPY (06/20/2025 3:30 PM EDT) Anatomical [...] disease segment. Narrative 06/20/2025 3:31 PM EDT [facility] GI Patient Name: Miriam Dennison Procedure Date: 06/20/2025 3:10 PM Date of : 1950 Age: 74 Gender: Female Note Status: Finalized Attending MD: Ron Adam DO, [id number] Procedure Date No Time: 06/20/2025 Procedure: Colonoscopy [...] the physician, the nurse, the anesthesiologist, the model builder display and the location and measurement technician in the pre-procedure area in the [...] retroflexion views. Procedure Code(s): --- Professional --- 55024, Colonoscopy, flexible; with removal of tumor(s), polyp(s), or other lesion(s) by snare technique Diagnosis Code(s): --- Professional --- K64.9, Unspecified hemorrhoids D12.5, Benign neoplasm of sigmoid colon D12.4, Benign neoplasm of descending colon K57.30, Diverticulosis of large intestine without perforation or abscess without bleeding CPT copyright 2020 [employer]. All rights reserved. The codes documented in this report are preliminary and upon video tape editor review may be revised to meet current compliance requirements. RON Adam DO 06/20/2025 3:31:11 PM This report has been signed electronically.Ron Adam DO Number of Addenda: 0 Note Initiated On: 06/20/2025 3:10 PM Scope Withdrawal Time: 0 hours 8 minutes 20 seconds Scope In: 3:17:07 PM Scope Out: 3:29:30 PM Endoscopy Department at [facility] - [address] [place] [phone] Procedure Note Ron Adam DO - 06/20/2025 [facility] GI Patient Name: Miriam Dennison Procedure Date: 06/20/2025 3:10 PM Date of : 1950 Age: 74 Gender: Female Note Status: Finalized Attending MD: Ron Adam DO, [id number] Procedure Date No Time: 06/20/2025 Procedure: Colonoscopy [...] the physician, the nurse, the anesthesiologist, the model builder display and thetechnician in the pre-procedure area in [...] retroflexion views. Procedure Code(s): --- Professional --- 56981, Colonoscopy, flexible; with removal of tumor(s), polyp(s), or other lesion(s) by snare technique Diagnosis Code(s): --- Professional --- K64.9, Unspecified hemorrhoids D12.5, Benign neoplasm of sigmoid colon D12.4, Benign neoplasm of descending colon K57.30, Diverticulosis of large intestine without perforation or abscess without bleeding CPT copyright 2020 [employer]. All rights reserved. The codes documented in this report are preliminary and upon video tape editor reviewmay be revised to meet current compliance requirements. RON Adam DO 06/20/2025 3:31:11 PM This report has been signed electronically.Ron Adam DO Number of Addenda: 0 Note Initiated On: 06/20/2025 3:10 PM Scope Withdrawal Time: 0 hours 8 minutes 20 seconds Scope In: 3:17:07 PM Scope Out: 3:29:30 PM Endoscopy Department at [facility] - [address] [place] [phone] IMPRESSION: - Hemorrhoids found on perianal exam. [...] inflammation at the diverticular disease segment. us Orn Jair DO GI~PROCEDURE ORDERABLES Final Re sult * Tissue exam (06/20/2025 3:25 PM EDT) Final Diagnosis A. Large Intestine, Left/Descending Colon, polyps x2: - Tubular adenoma. - Hyperplastic polyp. B. Large Intestine, Sigmoid Colon, polyp: - Tubular adenoma. C. Large Intestine, Sigmoid Colon, biopsies: - Colonic mucosa with no specific pathologic changes. 06/22/2025 10:54 AM EDT [facility] Gross Description A. Large Intestine, [...] on one slide. 06/22/2025 10:54 AM EDT [facility] Disclaimer Unless otherwise specified, all tissue is 10% NB formalin fixed and paraffin embedded. 06/22/2025 10:54 AM EDT [facility] Tissue Descending colon structure / Unknown 06/20/2025 3:25 PM EDT 06/21/2025 5:43 AM EDT Tissue specimen (specimen) Sigmoid colon structure / Unknown 06/20/2025 3:27 PM EDT 06/21/2025 5:43 AM EDT Tissue specimen (specimen) Sigmoid colon structure / Unknown 06/20/2025 3:28 PM EDT 06/21/2025 5:43 AM EDT Ron Adam DO LAB PATHOLOGY ORDERABLES Final R esult [facility] [address] [place] [address], from Last 3 Months Insurance MEDICARE [facility] Care Teams Delivery Associate Relationship Specialty Start Date End Date Tami Francis MD [address] [place] [address] PCP - General Internal Medicine 03/07/25
--- OUTSIDE RECORDS SUMMARY | 2025-08-15 16:25 | XMS_ITS | Clinical Summary ---
Author Organization [facility] Address [address] [place] [address] Care Team Providers Care Automobile Service Writer Name Role Phone Tami Francis MD Primary Care Provider [phone] Allergies Active Allergy Reactions Criticality Noted Date [...] capsule by mouth daily. Active nystatin (MYCOSTATIN) 691151 UNIT/ML suspensionIndicat ions:Throat discomfort Take 5 mL [...] 2 (mild) 1 Low serum creatinine 06/13/2021 Encounters Date Type Department Care Team Description 07/18/2025 12:00 PM EDT Office Visit [facility] [place] [phone] Lyndon Aquino MD Throat discomfort (Primary Dx); Oropharyngeal dysphagia; Gastroesophageal reflux disease without esophagitis 07/14/2025 Refill [facility] [address] [phone] Lyndon Aquino MD Gastroesophageal reflux disease without esophagitis from Last 3 Months Immunizations Immunization Administration Dates Next Due Influenza [...] - - Weight 49.9 kg (110 lb) 07/18/2025 11:48 AM EDT Height 157.5 cm (5' 2 ) 07/18/2025 11:48 AM EDT Body Mass Index 20.12 07/18/2025 11:48 AM EDT Plan of Treatment Health Maintenance Due Date Last Done Comments Advance Care Planning 1950 Hepatitis C Virus Screening 1950 Mammogram 1989 Colonoscopy 1994 Zoster (Shingles) Vaccine (1 of 2) 1999 DXA Bone Density (Females,Ages 65 and older) 2014 RSV Vaccine 60 years and older and Patients (1 - 1-dose 75+ series) 2024 Influenza Vaccine 06/16/2025 11/27/2016, 07/27/2015 COVID-19 Vaccine (2023-2 5 season) 2025 DTaP/Tdap/Td Vaccines (2 - T d or Tdap) 11/30/2027 11/30/2017 Pneumococcal Vaccines 50+ Completed 2019, 11/27/2016 Hepatitis B Vaccines Aged Out No long er eligible based on patient's age to complete this topic Insurance MEDICARE PART A & B [facility] - PPO MEDICARE PART A & B [facility] - PPO Advance Directives * Full Code (Latest Code Status on File) Date Activated Date Inactivated Comments 01/23/2023 6:34 PM Care Teams Automobile Service Writer Relationship Specialty Start Date End Date Tami Francis MD [address] [place] [address] PCP - General Internal Medicine 01/23/23
--- OUTSIDE RECORDS SUMMARY | 2025-08-15 16:25 | XMS_ITS | Patient Health Record ---
Author Organization [facility] Address [address] [address] Care Team Providers Care Hand Crown Pouncer Name Role Phone YASMANY ARCE M.D. Primary Care Provider Valorie Campos Unavailable [phone] Allergies Allergen (clinical drug ingredient) Drug/Non Drug Allergy documented on EMR Reaction Allergy Type Onset Date Status DARVON Unknown Drug Allergy Active erythromycin ERYTHROMYCIN Unknown Drug Allergy A ctive Reason For Referral No Information Medications Medication SIG (Take, Route, Frequency, Duration) Notes Start Date End Date Status Yuvafem 10 MCG INSERT 1 TABLET VAGINALLY TWICE A WEEK 90 DAYS; Duration: 90 Active Trintellix 10 MG TAKE 1 TABLET BY MOUTH EVERY DAY Oral; Duration: 90 Days Active Multivitamins 1 ORAL daily; Duration: -3 [facility] 01/20/2012 Active amLODIPine Besylate 5MG 1 ORAL daily; Duration: -3 [facility] NORVASC 06/28/2012 Active Losartan Potassium 50 MG Oral; Duration: 90 Days Active Vitamin E 400 UNIT 1 capsule Orally Once a day; Duration: 30 day(s) Active Calcium-D 600MG 1 ORAL daily; Duration: -3 [facility] 01/20/2012 Active Armodafinil 150 MG TAKE ONE TABLET BY MOUTH EVERY MORNING Oral; Duration: 30 Days Active Vitamin C 500MG 2 grams ORAL daily [facility] 04/24/2014 Active diazePAM 5 MG Oral; Duration: [...] I disorder, most recent episode depressed (disorder) (48183810) Bipolar I disorder, most recent episode (or current) depressed, unspecified (296.50) Active confirmed Problem Carcinoma in situ of cervix uteri (74144011) 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 confirmed Problem Essential hypertension (53902284) Unspecified essential hypertension (401.9) Active confirmed Problem Menopausal symptom (09134212) Symptomatic menopausal or female climacteric states (627.2) Active confirmed Problem Disorder of bone and articular cartilage (disorder) (182463849) Disorder of bone and cartilage, unspecified (733.90) Active confirmed Problem Postmenopausal atrophic vaginitis (29778466) Postmenopausal atrophic vaginitis (N95.2) Active confirmed Problem Age-related osteoporosis (430181702) Age-related osteoporosis without current pathological fracture (M81.0) Active confirmed Problem History of dysplasia of cervix (549679901) Personal history of cervical dysplasia (Z87.410) Active confirmed Problem General examination of patient (509739881) Routine general medical examination at health care facility (V70.0) Active confirmed Diag Problem Gynecological examination normal (657784398411143) Routine gynecological examination (V72.31) Active confirmed Problem Screening for malignant neoplasm of colon (796403340) Special screening for malignant neoplasms, colon (V76.51) [...] 05/30/2021 Next Appt Details Provider Name:Valorie montesinos, 12/18/2025 01:20:00 PM, [address], [address], [place], [address], Insurance Providers Payer Name Payer Address Payer Phone Subscriber Number Group Number Insured Name Patient Relationship to Insured Coverage Start Date Coverage End Date MEDICARE [address] MARY KANG [id number] [phone] [id number] TEDDY DENNISON Self - patient is the insured MEDEX [address] [place] [address] [id number] TEDDY DENNISON Self - patient is [...]
== END 2025-08-15 15:35 | disposition home or self-care (01) ==
LOC: HO.HOP 15:01
PROVIDERS: PCP Internal Medicine; Visit Provider Psychiatry & Neurology Psychiatry
DX: F33.41 Major depressive disorder, recurrent, in partial remission (principal); F90.9 Attention-deficit hyperactivity disorder, unspecified type; F41.1 Generalized anxiety disorder
CPT/HCPCS: 99214

== ENCOUNTER → 2025-08-15 15:01 | Outpatient (BNVA) | payer MEDICARE, SELFPAY | PROVIDERS: PCP Internal Medicine; Visit Provider Psychiatry & Neurology Psychiatry | DX: F33.41 Major depressive disorder, recurrent, in partial remission (principal); F90.9 Attention-deficit hyperactivity disorder, unspecified type; F41.1 Generalized anxiety disorder; Z79.899 Other long term (current) drug therapy | CPT/HCPCS: 99212 ==

== ENCOUNTER 2025-09-25 13:26 | Outpatient (AMB) | payer MEDICARE, SELFPAY ==
--- NOTE | 2025-09-25 14:30 | A.OFFPSYCH_ITS ---
Intake Intake Visit Reasons: depression Intake Note: Patient seen with her there is consent for the use of Ambient scribe Allergies No Known Allergies Allergy (Verified 10/28/24 07:13) Medication List - Last Reconciled 09/25/25 by Yovany Shearer MD amlodipine 10 mg See Protocol PO DAILY armodafinil 75 mg (1/2 x 150 mg) PO QAM ascorbic acid (vitamin C) (Vitamin C) 2,000 mg (4 x 500 mg) PO BEDTIME 30 days bupropion HCl SR 150 mg PO BID 90 days diazepam 2.5 - 5 mg (0.5 - 1 x 5 mg) PO DIRECTED 30 days famotidine 40 mg PO DAILY fluticasone propionate 50 mcg/actuation 1 spray intranasal BID multivitamin (Daily-Dara tablet) 1 tab PO DAILY 30 days omeprazole 20 mg PO DAILY@0630 quetiapine 75 mg (3 x 25 mg) PO BEDTIME 30 days HPI- Psychiatric Chief Complaint: depression HPI Narrative: The patient and her presented for a follow-up psychiatric evaluation to discuss recent developments in mental health, medications, and overall well- being. HPI The patient reported feeling a shift in their mental state, attributing impr ovements to an increased use of humor and engagement in community activities, such as joining the [employer] [facility] [employer]. The patient expressed pride in personal achievements and noted a decrease in obsessive and ruminating thoughts. The patient mentioned a past experience of not recalling a significant hospital stay, which was explained as a brain processing issue. The patient discussed the effects of a recent radioactive treatment for hyperthyroidism, detailing the many restrictions they had to follow post-treatment. MENTAL STATUS The patient stated their mood as I'm proud of myself. PHQ-9 0 ZAC 0 PAIN The patient did not report any pain during the encounter. BACKGROUND The patient did not note any new allergies. The patient was not on Synthroid despite recent thyroid radiation treatment and had previously been on Synthroid many years ago. The patient reported taking bupropion, quetiapine 50 hs , armodafinil, a full-spectrum CBD tincture, and occasionally diazepam. The patient admitted to frequently forgetting the second dose of bupropion during the day, estimating a 4 to 5 out of 7-day occurrence. The patient discussed the effects of armodafinil and a particular strain of marijuana on their energy levels. Physical symptoms mentioned included the management of diverticulosis without recent flares and an ongoing, though improved, throat condition. Past Psychiatric History: -Pt sees Dr. Shearer in OP setting recent hospitalization at [facility] Has had often on relapses over the past year and half -Remote hx of IPLOC 12 yrs ago, recent [place] [facility] [place] with at least 4 admissions in the last 2 years Assessment and Plan Assessment & Plan (1) ADHD (attention deficit hyperactivity disorder): Status: Acute Code(s): F90.9 - Attention-deficit hyperactivity disorder, unspecified type (2) ZAC (generalized anxiety disorder): Status: Acute Code(s): F41.1 - Generalized anxiety disorder (3) Major depression in full remission: Status: Acute Code(s): F32.5 - Major depressive disorder, single episode, in full remission Plan ASSESSMENT The patient appeared to have a positive response to current treatments for depression and anxiety, though there was a noted issue with medication adherence, specifically bupropion. Differential diagnoses might include Major Depressive Disorder, Generalized Anxiety Disorder, and cognitive issues related to past trauma and the use of diazepam. The patient seemed to benefit from a combination of pharmacological and non-pharmacological interventions, including CBD and armodafinil, contributing to improved energy levels and overall mood. PLAN I advised the patient to set reminders, such as using Uyli, to ensure adherence to the bupropion twice-daily regimen. The patient was encouraged to attempt reducing diazepam dosage if comfortable and to monitor for any changes in sleep or anxiety. The patient is to continue with current medications, including armodafinil and CBD tinctures, and maintain regular therapy sessions. A follow-up appointment is scheduled for November to reassess the medication regimen and overall mental health progress. I wish you at least text me back and forth if you do not like speaking on the ruminating Medications: Refilled bupropion HCl SR 150 mg PO BID 180 tabs 1RF 90 days diazepam 1 bedtime 1/2 -1 daily prn severe anxiety 2.5 - 5 mg (0.5 - 1 x 5 mg) PO DIRECTED 60 tabs 3RF anxiety 30 days Counseling and coordination of Care Details: I spent [] minutes reviewing the record, seeing the patient and documenting in the medical record. Counseling provided to the patient/caregiver as outlined below. Addressed patient/caregiver concerns regarding current medication regime including effective adherence. Addressed patient/caregiver concerns regarding diagnosis and prognosis including accuracy of diagnosis, prognosis over time, impact of diagnosis. Addressed patient/caregiver concerns regarding impact of recent stressors. [facility] Medical History Pre-op evaluation Urinary tract infection Depression Hypothyroidism ZAC (generalized anxiety disorder) Hypertension ADHD (attention deficit hyperactivity disorder) Surgical History H/O thumb surgery H/O cone biopsy of cervix Family History Other No pertinent family history Social History Household Members: Spouse Household Members Other:: And two cats. 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
--- OUTSIDE RECORDS SUMMARY | 2025-09-25 15:31 | XMS_ITS | Clinical Summary ---
Author Organization [facility] [address] [facility] Address [address] [place] [address] Phone Care Team Providers Care Farmworker Cranberry Name Role Phone Tami Francis MD Primary Care Provider [phone] Allergies Active Allergy Reactions Criticality Noted Date [...] of the gallon at 8PM. 4000 mL Active buPROPion SR (WELLBUTRIN SR) 150 mg 12 hr tablet Take 1 tablet (150 mg total) by mouth 2 (two) times a day. 5 Active famotidine (PEPCID) 40 mg tablet Take 1 tablet (40 mg total) by mouth at bedtime. Active Surgical History Surgery Date Site/Laterality Comments COLONOSCOPY [...] 3:30 PM EDT Change in bowel habits from Last 3 Months or Most Recently Relevant to Health Maintenance Results * COLONOSCOPY Anesthesia - MAC; [facility] ENDOSCOPY (06/20/2025 3:30 PM EDT) [...] disease segment. Narrative 06/20/2025 3:31 PM EDT [facility] GI Patient Name: Miriam Dennison Procedure Date: 06/20/2025 3:10 PM Date of : 1950 Age: 74 Gender: Female Note Status: Finalized Attending MD: Ron Adam DO, [id number] Procedure Date No Time: 06/20/2025 Procedure: Colonoscopy [...] the physician, the nurse, the anesthesiologist, the circular knitter and the optoelectronic technician in the pre-procedure area in the [...] retroflexion views. Procedure Code(s): --- Professional --- 01121, Colonoscopy, flexible; with removal of tumor(s), polyp(s), or other lesion(s) by snare technique Diagnosis Code(s): --- Professional --- K64.9, Unspecified hemorrhoids D12.5, Benign neoplasm of sigmoid colon D12.4, Benign neoplasm of descending colon K57.30, Diverticulosis of large intestine without perforation or abscess without bleeding CPT copyright 2020 [employer]. All rights reserved. The codes documented in this report are preliminary and upon technical sales engineer review may be revised to meet current compliance requirements. RON Adam DO 06/20/2025 3:31:11 PM This report has been signed electronically.Ron Adam DO Number of Addenda: 0 Note Initiated On: 06/20/2025 3:10 PM Scope Withdrawal Time: 0 hours 8 minutes 20 seconds Scope In: 3:17:07 PM Scope Out: 3:29:30 PM Endoscopy Department at [facility] - [address] [place] [phone] Procedure Note Ron Adam DO - 06/20/2025 [facility] Patient Name: Miriam Dennison Procedure Date: 06/20/2025 3:10 PM Date of : 1950 Age: 74 Gender: Female Note Status: Finalized Attending MD: Ron Adam DO, [id number] Procedure Date No Time: 06/20/2025 Procedure: Colonoscopy [...] the physician, the nurse, the anesthesiologist, the circular knitter and thetechnician in the pre-procedure area in [...] retroflexion views. Procedure Code(s): --- Professional --- 65116, Colonoscopy, flexible; with removal of tumor(s), polyp(s), or other lesion(s) by snare technique Diagnosis Code(s): --- Professional --- K64.9, Unspecified hemorrhoids D12.5, Benign neoplasm of sigmoid colon D12.4, Benign neoplasm of descending colon K57.30, Diverticulosis of large intestine without perforation or abscess without bleeding CPT copyright 2020 [employer]. All rights reserved. The codes documented in this report are preliminary and upon technical sales engineer reviewmay be revised to meet current compliance requirements. RON Adam DO 06/20/2025 3:31:11 PM This report has been signed electronically.Ron Adam DO Number of Addenda: 0 Note Initiated On: 06/20/2025 3:10 PM Scope Withdrawal Time: 0 hours 8 minutes 20 seconds Scope In: 3:17:07 PM Scope Out: 3:29:30 PM Endoscopy Department at [facility] - [address] [place] [phone] IMPRESSION: - Hemorrhoids found on perianal exam. [...] Adam DO GI~PROCEDURE ORDERABLES Final Re sult from Last 3 Months or Most Recently Relevant to Health Maintenance Insurance MEDICARE [facility] Care Teams Farmworker Cranberry Relationship Specialty Start Date End Date Tami Francis MD [address] [place] [address] PCP - General Internal Medicine 03/07/25
--- OUTSIDE RECORDS SUMMARY | 2025-09-25 15:31 | XMS_ITS | Clinical Summary ---
Author Organization [facility] Address [address] [place] [address] Care Team Providers Care Dining Room Busser Name Role Phone Pcp, No Primary Care [...] Not on file Insurance MEDICARE PART A&B [facility] MCR SUPPLEMENT Care Teams Dining Room Busser Relationship Specialty [place] [id number] PCP - General 07/31/19
--- OUTSIDE RECORDS SUMMARY | 2025-09-25 15:31 | XMS_ITS | Clinical Summary ---
Author Organization [facility] Address [address] [place] [address] Care Team Providers Care Pillowcase Folder Name Role Phone Tami Francis MD Primary Care Provider Allergies No known active allergies Medications amLODIPine [...] Medicare [facility] Medicare Care Teams Pillowcase Folder Relationship Specialty Start Date End Date Tami Francis MD [address] [place] [address] PCP - General Internal Medicine 06/13/21
--- OUTSIDE RECORDS SUMMARY | 2025-09-25 15:31 | XMS_ITS | Clinical Summary ---
Author Organization [facility] Address [address] [place] [address] Care Team Providers Care Consumer Safety Inspector Name Role Phone Tami Francis MD Primary Care Provider [phone] Allergies Active Allergy Reactions Criticality Noted Date [...] capsule by mouth daily. Active nystatin (MYCOSTATIN) 014126 UNIT/ML suspensionIndicat ions:Throat discomfort Take 5 mL [...] Description 07/18/2025 12:00 PM EDT Office Visit [facility] [address] [place] [address] Lyndon Aquino MD Throat discomfort (Primary Dx); Oropharyngeal dysphagia; Gastroesophageal reflux disease without esophagitis from Last [...] Hepatitis C Virus Screening 1950 Mammogram 1989 Zoster (Shingles) Vaccine (1 of 2) 1999 DXA Bone Density (Females,Ages 65 and older) 2014 RSV Vaccine 50 years and older and Patients (1 - 1-dose 75+ series) 2024 Influenza Vaccine 06/16/2025 11/27/2016, 07/27/2015 COVID-19 Vaccine (2023-2 5 season) 2025 DTaP/Tdap/Td Vaccines (2 - T d or Tdap) 11/30/2027 11/30/2017 Colonoscopy 06/20/2035 06/20/2025 Pneumococcal Vaccines 50+ Completed 2019, 11/27/2016 Hepatitis B Vaccines Aged Out No long er eligible based on patient's age to complete this [place] [id number] MEDICARE PART A & B [facility] MEDICARE PART A & B [facility] Advance Directives * Full Code (Latest Code Status on File) Date Activated Date Inactivated Comments 01/23/2023 6:34 PM Care Teams Consumer Safety Inspector Relationship Specialty Start Date End Date Tami Francis MD [address] [place] [id number] PCP - General Internal Medicine 01/23/23
== END 2025-09-25 15:11 | disposition home or self-care (01) ==
LOC: HO.HOP 13:26
PROVIDERS: PCP Internal Medicine; Visit Provider Psychiatry & Neurology Psychiatry
DX: F90.9 Attention-deficit hyperactivity disorder, unspecified type (principal); F41.1 Generalized anxiety disorder; F32.5 Major depressive disorder, single episode, in full remission
CPT/HCPCS: 99214

== ENCOUNTER → 2025-09-25 13:26 | Outpatient (BNVA) | payer MEDICARE, SELFPAY | PROVIDERS: PCP Internal Medicine; Visit Provider Psychiatry & Neurology Psychiatry | DX: F90.9 Attention-deficit hyperactivity disorder, unspecified type (principal); F41.1 Generalized anxiety disorder; F32.5 Major depressive disorder, single episode, in full remission | CPT/HCPCS: 99212 ==

== ENCOUNTER 2025-10-11 11:40 | Outpatient (REF) | payer MEDICARE, SELFPAY ==
[2025-10-11 13:25] LABS: MANUAL DIFF FLAG NO
[2025-10-11 13:51] LABS: Hematocrit 45.4 % (37.0-47.0); Hemoglobin 14.8 g/dl (12.0-16.0); Imm Gran Abs Auto 0.04 X10*3/uL (0.00-0.03); Imm Gran Pct Auto 0.5 % (0.0-0.4); Lymphocytes Absolute Auto 1.1 X10*3/uL (1.2-4.9); Mean Corpuscular HGB Conc 32.6 g/dl (31.0-35.0); Mean Corpuscular Hemoglobin 29.9 pg (27.0-33.0); Mean Corpuscular Volume 91.7 fL (80.0-98.0); NRBC Abs Auto 0.000 X10*3/uL (0.0-0.012); NRBC Pct Auto 0.0 /100WBC (0.0-0.2); Platelet Count 308 X10*3/uL (160-400); Red Blood Count 4.95 X10*6/uL (4.20-5.50); White Blood Count 7.8 X10*3/uL (4.8-10.8)
[2025-10-11 14:40] LABS: Alanine Aminotransferase 23 U/L (0-31); Albumin Level 4.5 g/dL (3.5-5.0); Alkaline Phosphatase 157 U/L (39-117); Anion Gap 7 (12-20); Aspartate Amino Transferase 20 U/L (5-31); Blood Urea Nitrogen 19 mg/dL (9-16); Calcium 10.0 mg/dL (8.4-10.2); Carbon Dioxide 31 mmol/L (22-29); Chloride 107 mmol/L (96-108); Estimated Glomerular Filt Rate 59; Potassium 4.7 mmol/L (3.3-5.1); Sodium 140 mmol/L (135-145); Total Protein 6.9 g/dL (6.5-8.0)
[2025-10-15 11:53] LABS: Triiodothyronine T3 Reverse 14 ng/dL (8-25)
[2025-10-17 15:19] LABS: FT4 by Equilib. Dialysis 1.5 ng/dL (0.9-2.2)
== END 2025-10-11 11:41 | disposition home or self-care (01) ==
LOC: HO.LAB 11:40
PROVIDERS: PCP Internal Medicine; Visit Provider Psychiatry & Neurology Psychiatry
DX: F33.2 Major depressive disorder, recurrent severe without psychotic features (principal); E03.9 Hypothyroidism, unspecified; E04.1 Nontoxic single thyroid nodule
CPT/HCPCS: 36415; 80053; 84439; 84443; 84481; 84482; 85025; 99212

== ENCOUNTER 2025-10-11 11:40 | Outpatient (AMB) | payer MEDICARE, SELFPAY ==
--- NOTE | 2025-10-10 13:05 | MHC.OFFVISPS ---
Intake Intake Visit Reasons: depression Allergies No Known Allergies Allergy (Verified 10/28/24 07:13) HPI- Psychiatric Chief Complaint: depression HPI Narrative: ATIENT SUMMARY The patient presented for evaluation and management of mood instability, possibly related to bipolar disorder, with recent depressive symptoms following a potential manic episode. HPI The patient reported feeling excited about upcoming events, such as family visits, and was initially engaged in activities like flower arrangements. However, the patient experienced a rapid mood decline, now feeling fearful and unwilling to see family or engage in activities. The patient mentioned feeling anxious about two weeks ago, which has since worsened. The patient experienced racing thoughts about failing to meet responsibilities and screwing up recent commitments. The patient also expressed that quetiapine caused mental fog. Despite taking Wellbutrin consistently, the patient does not feel agitated or hyper. The patient expressed frustration and shame about the mood instability. The patient stated their mood as terrified of seeing him and expressed a desire to lie down and try to shut my mind off. PAIN The patient did not report any pain during the encounter. BACKGROUND The patient did not report any new allergies. The patient was on armodafinil and Wellbutrin. The patient had stopped taking lithium in the past but had a history of improvement with Wellbutrin and lithium. There were no reports of new physical symptoms. The patient had previously undergone ECT, which seemed beneficial. Past Psychiatric History: -Pt sees Dr. Shearer in OP setting recent hospitalization at the [place] [facility] Has had often on relapses over the past year and half -Remote hx of [facility] 12 yrs ago, recent admissions at [facility] since 2020 with at least 4 admissions in the last 2 years Mental Status Exam Mental Status Exam Patient Appearance: Disheveled Patient Orientation: Person, Place, Time and Situation Level of Consciousness: Awake and Appropriate Patient Behavior: Guarded and Poor Eye Contact Mood Description: Depressed and Blunted Affect Description: Constricted and Apprehensive Patient Cognition Impaired: No Ability to Follow Directions: Good Speech Pattern: Clear Memory Description: Intact Hallucinations: None Delusions: Not Present Thought Process: Intact and Goal Oriented Thought Content: positive for Goal Oriented, positive for Preoccupation, negative for Suicidal Ideation or negative for Homicidal Ideation Depressive Symptoms: Increased Anxiety, Increased Irritability, Hopelessness, Increased Fatigue, Loss of Energy and Difficulty Concentrating Judgement: Fair Assessment and Plan Assessment & Plan (1) Major depressive disorder, recurrent severe without psychotic features: Status: Acute Code(s): F33.2 - Major depressive disorder, recurrent severe without psychotic features (2) Hypothyroidism: Status: Acute Code(s): E03.9 - Hypothyroidism, unspecified (3) Thyroid nodule: Status: Acute Code(s): E04.1 - Nontoxic single thyroid nodule Plan ASSESSMENT The differential diagnosis included bipolar disorder with a potential mixed state, given the rapid cycling and mood instability. The recent reduction in quetiapine may have contributed to the patient's symptoms. Additionally, thyroid function might be contributing to mood changes, as the patient had a history of thyroid treatment. Check labs in case contributing factor to confusion and depressionRestart lithium consider caplyta inc seroquel as tolerated up to 100 mg Orders: Orders FT4 by [facility]. Dialysis 10/11/25 E03.9 - Hypothyroidism, unspecified, E04.1 - Nontoxic single thyroid nodule, F33.2 - Major depressive disorder, recurrent severe without psychotic features UA and rflx microscopic 10/11/25 E03.9 - Hypothyroidism, unspecified, E04.1 - Nontoxic single thyroid nodule, F33.2 - Major depressive disorder, recurrent severe without psychotic features Complete Blood Count Auto Diff 10/11/25 E03.9 - Hypothyroidism, unspecified, E04.1 - Nontoxic single thyroid nodule, F33.2 - Major depressive disorder, recurrent severe without psychotic features Comprehensive Met. Panel 10/11/25 E03.9 - Hypothyroidism, unspecified, E04.1 - Nontoxic single thyroid nodule, F33.2 - Major depressive disorder, recurrent severe without psychotic features Triiodothyronine T3 Free 10/11/25 E03.9 - Hypothyroidism, unspecified, E04.1 - Nontoxic single thyroid nodule, F33.2 - Major depressive disorder, recurrent severe without psychotic features Triiodothyronine T3 Reverse 10/11/25 E03.9 - Hypothyroidism, unspecified, E04.1 - Nontoxic single thyroid nodule, F33.2 - Major depressive disorder, recurrent severe without psychotic features TSH reflex Free T4 10/11/25 E03.9 - Hypothyroidism, unspecified, E04.1 - Nontoxic single thyroid nodule, F33.2 - Major depressive disorder, recurrent severe without psychotic features Counseling and coordination of Care Details: I spent [] minutes reviewing the record, seeing the patient and documenting in the medical record. Counseling provided to the patient/caregiver as outlined below. Addressed patient/caregiver concerns regarding current medication regime including effective adherence. Addressed patient/caregiver concerns regarding diagnosis and prognosis including accuracy of diagnosis, prognosis over time, impact of diagnosis. Addressed patient/caregiver concerns regarding impact of recent stressors. [facility] Medical History Pre-op evaluation Urinary tract infection Depression Hypothyroidism ZAC (generalized anxiety disorder) Hypertension ADHD (attention deficit hyperactivity disorder) Surgical History H/O thumb surgery H/O cone biopsy of cervix Family History Other No pertinent family history Social History Household Members: Spouse Household Members Other:: And two cats. 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 she does occasionally smoke marijuana Substance History: Denies Trauma History: NA Coding Level of Care Code Est Pt Level 4 (44171) Diagnoses Major depressive disorder, recurrent severe without psychotic features F33.2 Hypothyroidism E03.9 Thyroid nodule E04.1
--- OUTSIDE RECORDS SUMMARY | 2025-10-11 14:48 | XMS_ITS | Clinical Summary ---
Author Organization [facility] [address] [facility] Address [address] [place] [address] Phone Care Team Providers Care And Rescue Fire Fighter Crash Fire Name Role Phone Tami Francis MD Primary Care Provider [phone] Allergies Active Allergy Reactions Criticality Noted Date [...] Maintenance Results * COLONOSCOPY Anesthesia - MAC; [facility] ENDOSCOPY (06/20/2025 3:30 PM EDT) Anatomical Region [...] disease segment. Narrative 06/20/2025 3:31 PM EDT [facility] Patient Name: Miriam Dennison Procedure Date: 06/20/2025 3:10 PM Date of : 1950 Age: 74 Gender: Female Note Status: Finalized Attending MD: Ron Adam DO, [id number] Procedure Date No Time: 06/20/2025 Procedure: Colonoscopy [...] the physician, the nurse, the anesthesiologist, the dairy lab technician and the internetworking technician in the pre-procedure area in the [...] retroflexion views. Procedure Code(s): --- Professional --- 26634, Colonoscopy, flexible; with removal of tumor(s), polyp(s), or other lesion(s) by snare technique Diagnosis Code(s): --- Professional --- K64.9, Unspecified hemorrhoids D12.5, Benign neoplasm of sigmoid colon D12.4, Benign neoplasm of descending colon K57.30, Diverticulosis of large intestine without perforation or abscess without bleeding CPT copyright 2020 [employer]. All rights reserved. The codes documented in this report are preliminary and upon vibratory pile driver review may be revised to meet current compliance requirements. RON Adam DO 06/20/2025 3:31:11 PM This report has been signed electronically.Ron Adam DO Number of Addenda: 0 Note Initiated On: 06/20/2025 3:10 PM Scope Withdrawal Time: 0 hours 8 minutes 20 seconds Scope In: 3:17:07 PM Scope Out: 3:29:30 PM Endoscopy Department at [facility] - [address] [place] [phone] Procedure Note Ron Adam DO - 06/20/2025 [facility] Patient Name: Miriam Dennison Procedure Date: 06/20/2025 3:10 PM Date of : 1950 Age: 74 Gender: Female Note Status: Finalized Attending MD: Ron Adam DO, [id number] Procedure Date No Time: 06/20/2025 Procedure: Colonoscopy [...] the physician, the nurse, the anesthesiologist, the dairy lab technician and thetechnician in the pre-procedure area in [...] retroflexion views. Procedure Code(s): --- Professional --- 77008, Colonoscopy, flexible; with removal of tumor(s), polyp(s), or other lesion(s) by snare technique Diagnosis Code(s): --- Professional --- K64.9, Unspecified hemorrhoids D12.5, Benign neoplasm of sigmoid colon D12.4, Benign neoplasm of descending colon K57.30, Diverticulosis of large intestine without perforation or abscess without bleeding CPT copyright 2020 [employer]. All rights reserved. The codes documented in this report are preliminary and upon vibratory pile driver reviewmay be revised to meet current compliance requirements. RON Adam DO 06/20/2025 3:31:11 PM This report has been signed electronically.Ron Adam DO Number of Addenda: 0 Note Initiated On: 06/20/2025 3:10 PM Scope Withdrawal Time: 0 hours 8 minutes 20 seconds Scope In: 3:17:07 PM Scope Out: 3:29:30 PM Endoscopy Department at [facility] - [address] [place] [phone] IMPRESSION: - Hemorrhoids found on perianal exam. [...] Recently Relevant to Health Maintenance Insurance MEDICARE [facility] Care Teams And Rescue Fire Fighter Crash Fire Relationship Specialty Start Date End Date Tami Francis MD [address] [place] [address] PCP - General Internal Medicine 03/07/25
--- OUTSIDE RECORDS SUMMARY | 2025-10-11 14:48 | XMS_ITS | Clinical Summary ---
Author Organization [facility] Address [address] [place] [address] Care Team Providers Care Tester Food Products Name Role Phone Tami Francis MD Primary Care Provider [phone] Allergies Active Allergy Reactions Criticality Noted Date [...] capsule by mouth daily. Active nystatin (MYCOSTATIN) 159318 UNIT/ML suspensionIndicat ions:Throat discomfort Take 5 mL [...] Description 07/18/2025 12:00 PM EDT Office Visit [facility] [address] [place] [address] Lyndon Aquino MD Throat discomfort [...] to complete this [place] [id number] MEDICARE PART A & B [facility] MEDICARE PART A & B PSYCHIATRIC Advance Directives * Full Code (Latest Code Status on File) Date Activated Date Inactivated Comments 01/23/2023 6:34 PM Care Teams Tester Food Products Relationship Specialty Start Date End Date Tami Francis MD [address] [place] [id number] PCP - General Internal Medicine 01/23/23
--- OUTSIDE RECORDS SUMMARY | 2025-10-11 14:48 | XMS_ITS | Clinical Summary ---
Author Organization [facility] Address [address] [place] [address] Care Team Providers Care Court Clerk Name Role Phone Tami Francis MD Primary Care Provider [phone] Allergies No known active allergies Medications amLODIPine [...] patient's age to complete this topic Insurance [facility] Medicare [facility] Medicare Care Teams Court Clerk Relationship Specialty Start Date End Date Tami Francis MD [address] [place] [address] PCP - General Internal Medicine 06/13/21
--- OUTSIDE RECORDS SUMMARY | 2025-10-11 14:48 | XMS_ITS | Clinical Summary ---
Author Organization [facility] Address [address] [place] [address] Care Team Providers Care Supervisor Pipeline Maintenance Name Role Phone Pcp, No Primary Care [...] Not on file Insurance MEDICARE PART A&B [facility] MCR SUPPLEMENT Care Teams Supervisor Pipeline Maintenance Relationship Specialty [place] [id number] PCP - General 07/31/19
== END 2025-10-11 13:50 | disposition home or self-care (01) ==
LOC: HO.HOP 11:40
PROVIDERS: PCP Internal Medicine; Visit Provider Psychiatry & Neurology Psychiatry
DX: F33.2 Major depressive disorder, recurrent severe without psychotic features (principal); E03.9 Hypothyroidism, unspecified; E04.1 Nontoxic single thyroid nodule
CPT/HCPCS: 99214

== ENCOUNTER 2025-10-16 16:30 | Outpatient (AMB) | payer MEDICARE, SELFPAY ==
--- NOTE | 2025-10-16 15:51 | A.OFFPSYCH_ITS ---
Intake Intake Visit Reasons: depression Intake Note: Patient with history of recurrent severe depression question of atypical cycling mood disorder Allergies No Known Allergies Allergy (Verified 10/20/25 14:10) Medication List - Last Reconciled 10/20/25 by Yovany Shearer MD amlodipine 10 mg See Protocol PO DAILY armodafinil 75 mg (1/2 x 150 mg) PO QAM ascorbic acid (vitamin C) (Vitamin C) 2,000 mg (4 x 500 mg) PO BEDTIME 30 days bupropion HCl SR 150 mg PO BID 90 days diazepam 2.5 - 5 mg (0.5 - 1 x 5 mg) PO DIRECTED 30 days estradiol (Yuvafem) 10 mcg vaginal 2XW famotidine 40 mg PO DAILY fluticasone propionate 50 mcg/actuation 1 spray intranasal BID PRN multivitamin (Daily-Dara tablet) 1 tab PO DAILY 30 days omeprazole 20 mg PO DAILY@0630 quetiapine 75 mg (3 x 25 mg) PO BEDTIME 30 days HPI- Psychiatric Chief Complaint: depression Intake Note: Patient with history of recurrent depression question of atypical cycling mood disorder HPI Narrative: he patient verbally consented to this video encounter. This video encounter was conducted via secure, interactive video conferencing. The patient's identity was established before proceeding with the video encounter by confirmation of their name and an additional identifier. Reason for Visit: Evaluation and management of mood disorder. Subjective: A middle-aged patient with a history of mood disorders presents with concerns of a depressive episode. The patient reports feeling unable to maintain their usual activities and engagements. Symptoms have recently worsened, characterized by a lack of motivation, increased time in bed, and difficulty finding enjoyment in previously pleasurable activities. The patient expresses mixed feelings about the potential use of electroconvulsive therapy (ECT), citing previous experiences, yet acknowledges the current state is intolerable. The patient is currently taking Seroquel at night, three tablets before bed, but reports no significant side effects upon waking. The patient's family member, present during the encounter, notes increased physical weakness, necessitating assistance with mobility tasks like stairs, and an episode of feeling faint in a medical waiting room. The patient's family history includes bipolar disorder in their son. There are no known drug allergies. Current medications include Seroquel , Valium 2.5 at bedtime Wellbutrin twice a day. Socially, the patient has had to withdraw from important activities but does not report any engagement in risky behaviors or significant life disruptions. The endocrinology team has been involved recently, with pending thyroid function test results anticipated to return by October 20, which may influence treatment options. The patient has been advised to stay hydrated. Objective: Awake and alert. Not in acute respiratory distress. Appropriate mood and affect. Recent labs indicate normal thyroid function. A T4 test is pending. The endocrinology team is monitoring potential thyroid-related issues, and there is consideration for thyroid hormone therapy pending further results. Past Psychiatric History: -Pt sees Dr. Shearer in OP setting recent hosp italization at the [place] [facility] Has had often on relapses over the past year and half -Remote hx of [facility] 12 yrs ago, recent admissions at [facility] [place] since 2020 with at least 4 admissions in the last 2 years Telehealth Telehealth Telehealth Platform: Meldium (Patient consented to use of video scribe) Location of provider rendering services: practice address Location of patient: address on file Patient Identification confirmed using: Name, : Yes Telehealth method: video Patient verbally consented to treatment: Yes Patient verbally consented to billing insurance company: Yes Patient informed of any privacy concerns related to visit: Yes Minutes spent on Phone/Video with Pt.: 26 Assessment and Plan Assessment & Plan (1) Bipolar II disorder major depressive with melancholic features: Status: Acute Code(s): F31.81 - Bipolar II disorder (2) ZAC (generalized anxiety disorder): Status: Acute Code(s): F41.1 - Generalized anxiety disorder Plan Assessment: The patient is experiencing a significant depressive episode, potentially exacerbated by underlying thyroid issues and a cycling mood disorder. The quick onset and severity of the current depressive symptoms suggest a possible bipolar spectrum disorder, with a history of rapid cycling moods. The normal thyroid function thus far does not explain the depressive symptoms entirely, and further thyroid assessment is pending. The proposed treatment includes ECT to rapidly address the acute depressive symptoms, followed by lithium therapy to stabilize mood long-term. Plan: 1. Schedule ECT sessions, aiming for the earliest availability, with consideration for patient and family logistics. 2. Increase Seroquel to 100 mg daily, either by taking four 25 mg tablets at bedtime or one during the day and three at bedtime, monitoring for any side effects. 3. Encourage adequate hydration. 4. Follow up with endocrinology upon receipt of remaining thyroid function tests to consider the initiation of thyroid hormone replacement if indicated. 5. Reassess the patient's condition following initial ECT sessions and adjust mood stabilizer therapy accordingly. 6. Plan a follow-up consultation after the initial ECT treatments to evaluate the effectiveness and discuss long-term management strategies. Counseling and coordination of Care Details-Self Mgmt counseling: Patient quite demoralized with relapse needs much encouragement Details: I spent [] minutes reviewing the record, seeing the patient and documenting in the medical record. Counseling provided to the patient/caregiver as outlined below. Addressed patient/caregiver concerns regarding current medication regime including effective adherence. Addressed patient/caregiver concerns regarding diagnosis and prognosis including accuracy of diagnosis, prognosis over time, impact of diagnosis. Addressed patient/caregiver concerns regarding impact of recent stressors. REPLACED BY [facility] Medical History (Updated 10/30/25 @ 09:47 by Yovany Shearer MD) Depression Hypothyroidism ZAC (generalized anxiety disorder) Hypertension ADHD (attention deficit hyperactivity disorder) Surgical History H/O thumb surgery H/O cone biopsy of cervix Family History Other No pertinent family history Social History Household Members: Spouse Household Members Other:: And two cats. 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 she does occasionally smoke marijuana Substance History: Denies Trauma History: NA Coding Level of Care Code Tele Est Pt Level 4 (33331) Diagnoses Bipolar II disorder major depressive with melancholic features F31.81 ZAC (generalized anxiety disorder) F41.1
--- OUTSIDE RECORDS SUMMARY | 2025-10-16 18:47 | XMS_ITS | Clinical Summary ---
Author Organization [facility] Address [address] [place] [address] Care Team Providers Care Fruit Washer Name Role Phone Pcp, No Primary Care [...] Not on file Insurance MEDICARE PART A&B [facility] MCR SUPPLEMENT Care Teams Fruit Washer Relationship Specialty [place] [id number] PCP - General 07/31/19
--- OUTSIDE RECORDS SUMMARY | 2025-10-16 18:47 | XMS_ITS | Clinical Summary ---
Author Organization [facility] Address [address] [place] [address] Care Team Providers Care Independent Agent Music Education Name Role Phone Tami Francis MD Primary Care Provider [phone] Allergies No known active allergies Medications amLODIPine [...] patient's age to complete this topic Insurance [facility] Medicare [facility] Medicare Care Teams Independent Agent Music Education Relationship Specialty Start Date End Date Tami Francis MD [address] [place] [address] PCP - General Internal Medicine 06/13/21
--- OUTSIDE RECORDS SUMMARY | 2025-10-16 18:47 | XMS_ITS | Clinical Summary ---
Author Organization [facility] Address [address] [place] [address] Care Team Providers Care Nurse Sexual Assault Name Role Phone Tami Francis MD Primary Care Provider [phone] Allergies Active Allergy Reactions Criticality Noted Date [...] capsule by mouth daily. Active nystatin (MYCOSTATIN) 650836 UNIT/ML suspensionIndicat ions:Throat discomfort Take 5 mL [...] Visit [facility] [address] [place] [address] Lyndon Aquino MD Throat discomfort [...] to complete this [place] [id number] MEDICARE [facility] A [facility] MED[facility] A [facility] Advance Directives * Full Code (Latest Code Status on File) Date Activated Date Inactivated Comments 01/23/2023 6:34 PM Care Teams Nurse Sexual Assault Relationship Specialty Start Date End Date Tami Francis MD [address] [place] [phone] PCP - General Internal Medicine 01/23/23
--- OUTSIDE RECORDS SUMMARY | 2025-10-16 18:47 | XMS_ITS | Clinical Summary ---
Author Organization [facility] [address] [facility] Address [address] [place] [address] Phone Care Team Providers Care Cardiographer Name Role Phone Tami Francis MD Primary Care Provider [phone] Allergies Active Allergy Reactions Criticality Noted Date [...] Maintenance Results * COLONOSCOPY Anesthesia - MAC; [facility] ENDOSCOPY (06/20/2025 3:30 PM EDT) Anatomical [...] disease segment. Narrative 06/20/2025 3:31 PM EDT [facility] GI Patient Name: Miriam Dennison Procedure Date: 06/20/2025 3:10 PM Date of : 1950 Age: 74 Gender: Female Note Status: Finalized Attending MD: Ron Adam DO, [id number] Procedure Date No Time: 06/20/2025 Procedure: Colonoscopy [...] the physician, the nurse, the anesthesiologist, the mud boss and the park maintenance technician in the pre-procedure area in the [...] retroflexion views. Procedure Code(s): --- Professional --- 78701, Colonoscopy, flexible; with removal of tumor(s), polyp(s), or other lesion(s) by snare technique Diagnosis Code(s): --- Professional --- K64.9, Unspecified hemorrhoids D12.5, Benign neoplasm of sigmoid colon D12.4, Benign neoplasm of descending colon K57.30, Diverticulosis of large intestine without perforation or abscess without bleeding CPT copyright 2020 [employer]. All rights reserved. The codes documented in this report are preliminary and upon welfare interviewer review may be revised to meet current compliance requirements. RON Adam DO 06/20/2025 3:31:11 PM This report has been signed electronically.Ron Adam DO Number of Addenda: 0 Note Initiated On: 06/20/2025 3:10 PM Scope Withdrawal Time: 0 hours 8 minutes 20 seconds Scope In: 3:17:07 PM Scope Out: 3:29:30 PM Endoscopy Department at [facility] - [address] [place] [phone] Procedure Note Ron Adam DO - 06/20/2025 [facility] GI Patient Name: Miriam Dennison Procedure Date: 06/20/2025 3:10 PM Date of : 1950 Age: 74 Gender: Female Note Status: Finalized Attending MD: Ron Adam DO, [id number] Procedure Date No Time: 06/20/2025 Procedure: Colonoscopy [...] the physician, the nurse, the anesthesiologist, the mud boss and thetechnician in the pre-procedure area in [...] retroflexion views. Procedure Code(s): --- Professional --- 05508, Colonoscopy, flexible; with removal of tumor(s), polyp(s), or other lesion(s) by snare technique Diagnosis Code(s): --- Professional --- K64.9, Unspecified hemorrhoids D12.5, Benign neoplasm of sigmoid colon D12.4, Benign neoplasm of descending colon K57.30, Diverticulosis of large intestine without perforation or abscess without bleeding CPT copyright 2020 [employer]. All rights reserved. The codes documented in this report are preliminary and upon welfare interviewer reviewmay be revised to meet current compliance requirements. RON Adam DO 06/20/2025 3:31:11 PM This report has been signed electronically.Ron Adam DO Number of Addenda: 0 Note Initiated On: 06/20/2025 3:10 PM Scope Withdrawal Time: 0 hours 8 minutes 20 seconds Scope In: 3:17:07 PM Scope Out: 3:29:30 PM Endoscopy Department at [facility] - [address] [place] [phone] IMPRESSION: - Hemorrhoids found on perianal exam. [...] Recently Relevant to Health Maintenance Insurance MEDICARE [facility] Care Teams Cardiographer Relationship Specialty Start Date End Date Tami Francis MD [address] [place] [address] PCP - General Internal Medicine 03/07/25
== END 2025-10-16 16:30 | disposition home or self-care (01) ==
LOC: HO.HOP 16:30
PROVIDERS: PCP Internal Medicine; Visit Provider Psychiatry & Neurology Psychiatry
DX: F31.81 Bipolar II disorder (principal); F41.1 Generalized anxiety disorder
CPT/HCPCS: 99214

== ENCOUNTER 2025-10-20 14:00 | Inpatient (IN) | payer MEDICARE, SELFPAY ==
--- OUTSIDE RECORDS SUMMARY | 2025-07-03 09:20 | XMS_ITS ---
Author Organization [facility] Address [address] [address] Care Team Providers Care Cis Coordinator Name Role Phone YASMANY ARCE M.D. Primary Care Provider Valorie Campos Unavailable [phone] REASON FOR VISIT HR MEDICARE PE (YELLOW FORM DONE) Encounters Encounter Location Date Provider Diagnosis [facility] [address] [address] 07/03/2025 Valorie Luu Plan Of Treatment Next Appt Details Provider Name:Valorie chahalbertram, 12/18/2025 01:20:00 PM, [address] [place] [address], [address], [place], [address], Progress Notes * DENTON DENNISONHDOB:[birth year] (74 yo F)Acc No.[id number]:07/03/2025 PROGRESS NOTES Patient: TEDDY FAIR Appointment Provider: Bertram Luu M.D. :1950 A ge:74 Y S ex:Female Date:07/03/2025 Address:[address] [place] [address], [id number] Pcp:YASMANY ARCE M.D. Subjective: * Chief Complaints: * 1 . HR MEDICARE PE (YELLOW FORM DONE). * Medical History: Objective: * Vitals: Assessment: Plan: * Treatment: * Images: Billing Information: * Visit Code: * Procedure Codes: * Electronic signature of Joyce Luu MD on 10/20/2025 at 06:31 PM EST Sign off status: Pending * Appointment Provider: Bertram Luu M.D. Date: 0 07/03/2025 Generated for Uri rogers/Charis/Yasmine on: 1 12/21/2024 06:31 PM EST
--- NOTE | 2025-10-20 14:08 | ED_ITS ---
HPI - General Adult General Chief complaint: Psychiatric Symptoms Stated complaint: psych Time Seen by Provider: 10/20/25 14:14 Source: patient and family (patient's ) Mode of arrival: ambulatory Limitations: no limitations History of Present Illness ED Provider: Kaycee Salazar PA-C HPI narrative: Patient is a 74 year old assigned female at with a history of recurrent major depression which she is on ECT presenting to the emergency department today with worsening depression and suicidal ideation. Patient states that she has had worsening depression. Patient's states that they spoke with Dr. Shearer, their psychiatric, who recommended psychiatric admission and sent them here to begin that process. Patient denies any other complaints at this time. Related Data Home Medications ?Medication ?Instructions ?Recorded ?Confirmed amlodipine 5 mg tablet 10 mg PO DAILY 07/12/2404/09 famotidine 40 mg tablet 40 mg PO DAILY 11/03/2404/09 estradiol 10 mcg vaginal tablet 10 mcg vaginal 2XW 04/0910/20/25 (Yuvafem) fluticasone propionate 50 1 spray intranasal BID PRN n ira 10/20/25 10/20/25 mcg/actuation nasal congestion spray,suspension Previous Rx's ?Medication ?Instructions ?Recorded ascorbic acid (vitamin C) 500 mg 2,000 mg (4 x 500 mg) PO BEDTIME 08/26/22 tablet (Vitamin C) 30 days #120 tabs multivitamin (Daily-Dara tablet) 1 tab PO DAILY 30 day s #30 tabs 08/26/22 omeprazole 20 mg capsule,delayed 20 mg PO DAILY@0630 # 30 caps 09/16/23 release armodafinil 150 mg tablet 75 mg (1/2 x 150 mg) PO QAM #15 09/04/25 tabs quetiapine 25 mg tablet 75 mg (3 x 25 mg) PO BEDTIME 30 09/20/25 days #120 tabs bupropion HCl 150 mg tablet,12 hr 150 mg PO BID 90 day s #180 tabs 09/25/25 sustained-release diazepam 5 mg tablet 2.5 - 5 mg (0.5 - 1 x 5 mg) PO 09/25/25 DIRECTED anxiety 30 days #60 tabs Allergies Allergy/AdvReac Type Severity Reaction Status Date / Time No Known Allergies Allergy Verified 10/20/25 14:10 Review of Systems 2 Constitutional: Constitutional: Reports as per HPI Eyes: Eyes: Reports as per HPI ENT: Reports as per HPI Cardiovascular: Cardiovascular: Reports as per HPI Respiratory: Respiratory: Reports as per HPI Gastrointestinal: Gastrointestinal: Reports as per HPI Genitourinary: Genitourinary: Reports as per HPI Musculoskeletal: Musculoskeletal: Reports as per HPI Integumentary/Breasts: Skin/Breast: Reports as per HPI Neurologic: Reports as per HPI Psychiatric: Psychiatric: Reports as per HPI Endocrine: Endocrine: Reports as per HPI Hematologic/Lymphatic: Hematologic/Lymphatic: Reports as per HPI Allergic/Immunologic: Allergic/Immunologic: Reports as per HPI [facility] Past Medical History Attestation statement: The following information was validated with the patient. (all information validated with the patient's ) Source: old records reviewed, obtained from family (patient's provided additional history and confirmed the history provided by the patient) and nursing notes reviewed Medical History Pre-op evaluation Urinary tract infection Depression Hypothyroidism ZAC (generalized anxiety disorder) Hypertension ADHD (attention deficit hyperactivity disorder) Surgical History H/O thumb surgery H/O cone biopsy of cervix Family History Family History Other No pertinent family history Social History Social History Household Members: Spouse Household Members Other:: And two cats. Housing: House Do you presently have visiting nurse or other home services: No Alcohol intake: never Patient Tobacco Use Status: Never used Tobacco Tobacco use type: Cigarette Years Smoked: 20 Smoked in Last 30 Days: No e-Cigarette/Vaping Use: Never Used Second Hand Smoke Exposure: No Use of substances other than those prescribed or required for medical reasons: Yes Substance Use Type: Marijuana and Other Substance Use Frequency Other:: vape marijuana and marijuana gummies Any prior treatment program specific to substance use: No Advance Directives: No Advance Directives Information Provided: Yes Do you have a plan to hurt others: No Plan service: No Sexual orientation: Straight/Heterosexual Physical Exam ED Vital Signs: Vital Signs - 24 hr 10/20/25 14:09 Temperature 97.3 F Pulse Rate 79 Respiratory Rate 18 Blood Pressure 179/82 H Pulse Oximetry 95 Oxygen Delivery Method Room Air BMI result Body Mass Index 19.5 Const General: cooperative, no acute distress, alert and awake Nutritional Appearance: well nourished Orientation/consciousness: patient oriented x3 HENMT Head: Yes normal to inspection and Yes atraumatic Ears: hearing grossly normal bilaterally and external ears normal General nose exam: Normal external nose present, no nasal discharge noted and no epistaxis Face and sinus: Yes normal facial exam, No abrasion and No laceration Mouth: Normal oral and palatal mucosa present, no drooling and no muffled voice Eyes General: appearance normal, both eyes and all related structures Periorbital: periorbital findings normal Eyelids: Yes eyelids normal Conjunctivae: conjunctivae normal Pupils: Equal, round and reactive pupils present EOM: EOMs intact bilaterally Neck Neck: Yes normal visual inspection and Yes full ROM Resp Effort & Inspection: normal respiratory effort and able to speak in complete sentences Neuro General: patient oriented x3, moves all extremities and CN's II-XI intact bilaterally Cranial nerves: Yes Equal, round and reactive pupils present Cognition (Neuro): normal cognition Extrem General: Yes normal to inspection, Yes full ROM and Yes capillary refill normal Psych Appearance: grossly normal Mental Status: mental status grossly normal Affect: Sad affect present Attitude: Guarded attititude/behavior present Thought content: Suicidality present Medications Administered Discontinued Medications Generic Name Dose Route Start Last Admin Trade Name Freq PRN Reason Stop Dose Admin Calcium Carbonate 1,500 mg 10/20/25 17:21 10/20/25 17:26 Calcium Carbonate 750 Mg Tab.Chew PO 10/20/25 17:22 1,500 mg ONCE ONE Administration Medical Decision Making Medical Decision Making [facility] Narrative: Patient is a 74 year old assigned female at with a history of recurrent major depression which she is on ECT presenting to the emergency department today with worsening depression and suicidal ideation. Patient's physical exam was as noted in the physical exam portion of this note. Patient's blood work was unremarkable. Patient's EKG showed no obvious evidence of arrhythmia, ischemia, or infarct. I explained my physical exam findings as well as all test results to the patient and the patient's . I answered all questions asked by the patient and the patient's . Patient placed in observation pending CARE team evaluation. [id number] Kaycee Salazar PA-C ---> Patient evaluated by the CARE team who recommended inpatient level of psychiatric care. Patient will remain in observation pending admission here on the [facility] Psychiatric floor or transferred to a facility with appropriate psychiatric inpatient capabilities. 1903 Kaycee Salazar PA-C ---> Observation ended. Patient accepted for admission to the psychiatric service here at [facility]. Differential Diagnosis Differential Diagnoses: The differential diagnosis associated with the presentation includes SI Depression Admission/Observation Consideration of admission/observation: Escalation of care including admission/observation considered Patient admitted to the [facility] Psychiatric Service. Consult Healthcare Provider Management of the patient was discussed with: Behavioral Health Provider (spoke with the CARE Team who recommended inpatient level of psychiatric care. ) Lab Data MDM Lab Attestation statement: I reviewed the patient's lab results. My interpretation of these results are in the MDM Rationale portion of this note. 10/20/25 14:44 10/20/25 14:44 Labs: Lab Results 10/20/25 Range/Units 14:44 WBC 7.6 (4.8-10.8) X10*3/uL RBC 5.07 (4.20-5.50) X10*6/uL Hgb 15.2 (12.0-16.0) g/dl Hct 46.1 (37.0-47.0) % MCV 90.9 (80.0-98.0) fL MCH 30.0 (27.0-33.0) pg MCHC 33.0 (31.0-35.0) g/dl RDW 12.7 (11.0-16.0) % Plt Count 282 (160-400) X10*3/uL MPV 9.9 (9.4-12.3) fL Immature Gran % (Auto) 0.3 (0.0-0.4) % Neut % (Auto) 78.1 H (45-73) % Lymph % (Auto) 14.3 L (20-40) % [place] % (Auto) 5.9 (2-11) % Eos % (Auto) 0.9 (0-4) % Baso % (Auto) 0.5 (0-2) % Lymph # (Auto) 1.1 L (1.2-4.9) X10*3/uL [place] # (Auto) 0.5 (0.1-1.2) X10*3/uL Eos # (Auto) 0.1 (0.0-0.4) X10*3/uL Baso # (Auto) 0.0 (0.0-0.2) X10*3/uL Abs Immat Gran (auto) 0.02 (0.00-0.03) X10*3/uL Absolute Neuts (auto) 5.9 (2.0-8.3) x10*3/uL Absolute Nucleated RBC 0.000 (0.0-0.012) X10*3/uL Nucleated RBC % (auto) 0.0 (0.0-0.2) /100WBC Sodium 140 (135-145) mmol/L Potassium 4.9 (3.3-5.1) mmol/L Chloride 104 (96-108) mmol/L Carbon Dioxide 27 (22-29) mmol/L Anion Gap 14 (12-20) BUN 14 (9-16) mg/dL Creatinine 0.83 (0.5-1.4) mg/dL Estim Creat Clear Calc 44.6 Estimated GFR > 60 Random Glucose 104 (60-115) mg/dL Calcium 9.8 (8.4-10.2) mg/dL Total Bilirubin 0.2 (0.0-1.0) mg/dL AST 23 (5-31) U/L ALT 26 (0-31) U/L Alkaline Phosphatase 159 H (39-117) U/L Total Protein 7.0 (6.5-8.0) g/dL Albumin 4.6 (3.5-5.0) g/dL Urine Color Yellow Urine Appearance Clear Urine pH 6.5 (5.0-9.0) Ur Specific [place] 1.010 (1.005-1.025) Urine Protein Negative (Neg-Trace) mg/dL Urine Glucose (UA) Negative (Negative) mg/dL Urine Ketones Negative (Negative) mg/dL Urine Blood Negative (Negative) Urine Nitrite Negative (Negative) Ur Leukocyte Esterase Trace H (Negative) Urine RBC 0-2 (0-2) /HPF Urine WBC 0-5 (0-5) /HPF Ur Squamous Epith Cells 3-5 (0-2) /HPF Urine Bacteria None Seen (None Seen) Hyaline Casts 0-2 (0-2) /LPF Salicylates < 5.0 L (15-30) mg/dL Urine Opiates Screen Not Detected (Not Detect) Ur Buprenorphine Scrn Not Detected (Not Detect) ng/mL Ur Oxycodone Screen Not Detected (Not Detect) ng/mL Urine Methadone Screen Not Detected (Not Detect) ng/mL Urine Fentanyl Screen Not Detected (Not Detect) Acetaminophen < 3 (<30) mcg/mL Ur Barbiturates Screen Not Detected (Not Detect) Ur Phencyclidine Scrn Not Detected (Not Detect) Ur Amphetamines Screen Not Detected (Not Detect) U Benzodiazepines Scrn POSITIVE H (Not Detect) Urine Cocaine Screen Not Detected (Not Detect) U Marijuana (THC) Screen Not Detected (Not Detect) Ethyl Alcohol < 10 mg/dL Independent Interpretation I performed an independent interpretation of an: EKG Interpretation: I independently interpreted this EKG and am in agreement with the below findings: Vent. Rate: 82 BPM Atrial Rate: 82 BPM P-R Int: 136 ms QRS Dur: 90 ms QT Int: 372 ms P-R-T Axes: 53 38 37 degrees QTcB Int: 434 ms Normal sinus rhythm When compared with ECG of 19-Aug-2024 12:06, No significant change was found DD/ 1506 Independent Historian Clinical information obtained from an independent historian. History obtained from or confirmed by: Spouse (patient's provided additional history and confirmed the history provided by the patient. ) Critical Care Time Critical Care Time Critical Care Time: Yes Total Critical Care Time: 34 Attestation: I spent 34 minutes of Critical Care Time with this patient. This does not include time spent on separately reported billable procedures. Discharge Plan Discharge Clinical Impression: Depression, Suicidal ideation Patient Disposition: Admitted As Inpatient Interventions: [place]-Suicide Risk Severity Scale Last Done: 10/20/25 14:11
[2025-10-20 14:09] VITALS: BP 179/82; PULSE 79; RESP 18; TEMP 36.3; O2SAT 95; BMI 19.5
--- NOTE | 2025-10-20 14:09 | ECG_ITS ---
Test Reason : CHECK PROLONG QT Blood Pressure : */* mmHG Vent. Rate : 82 BPM Atrial Rate : 82 BPM P-R Int : 136 ms QRS Dur : 90 ms QT Int : 372 ms P-R-T Axes : 53 38 37 degrees QTcB Int : 434 ms Normal sinus rhythm Normal ECG When compared with ECG of 19-Aug-2024 12:06, No significant change was found Referred By: Kaycee Salazar Electronically Signed By: ELSA KEENAN
[2025-10-20 14:50] LABS: MANUAL DIFF FLAG NO
[2025-10-20 14:55] LABS: Appearance Urine Clear; Glucose Urine UA Negative (Negative); PH 6.5 (5.0-9.0); Specific Gravity - Urine 1.010 (1.005-1.025); UMIC TRIGGER UA YES
--- NOTE | 2025-10-20 14:57 | PC.NURSE ---
patient a&ox3, rr equal/non labored, ambulatory-independently, pt stating she presently is not SI, who is with her at bedside stated that the patient has just been making statement recently that she doesnt want to be here anymore- pt feels she made a mistake coming in to be seen and says she had no intentions of doing anything and presently insists she is not SI. labs have been drawn, urine obtained, ekg to be done by tech, plan of care ongoing
[2025-10-20 15:01] LABS: Hematocrit 46.1 % (37.0-47.0); Hemoglobin 15.2 g/dl (12.0-16.0); Imm Gran Abs Auto 0.02 X10*3/uL (0.00-0.03); Imm Gran Pct Auto 0.3 % (0.0-0.4); Lymphocytes Absolute Auto 1.1 X10*3/uL (1.2-4.9); Mean Corpuscular HGB Conc 33.0 g/dl (31.0-35.0); Mean Corpuscular Hemoglobin 30.0 pg (27.0-33.0); Mean Corpuscular Volume 90.9 fL (80.0-98.0); NRBC Abs Auto 0.000 X10*3/uL (0.0-0.012); NRBC Pct Auto 0.0 /100WBC (0.0-0.2); Platelet Count 282 X10*3/uL (160-400); Red Blood Count 5.07 X10*6/uL (4.20-5.50); White Blood Count 7.6 X10*3/uL (4.8-10.8)
--- NOTE | 2025-10-20 15:20 | PC.NURSE ---
med req is at bedside and states he does not have a med list, additionally neither the patient or him are able to state medications or dosages and have referred us to speak with Dr. Britt about the list of meds which they state the provider has. pharmacy was also notified about the patients med req needing to be completed which they stated they will work on as soon as they had availability to do so.
--- NOTE | 2025-10-20 16:18 | MHC.CARE ---
Pt will be adult IPLOC. Section 12a in chart for safety
[2025-10-20 16:57] LABS: Acetaminophen LAB < 3 mcg/mL (<30); Salicylate < 5.0 mg/dL (15-30)
--- NOTE | 2025-10-20 17:32 | PC.NURSE ---
report given to floor pt also medicated with tums per pt request
[2025-10-20 18:02] LABS: Cannabinoid Screen Urine Not Detected (Not Detect)
[2025-10-20 18:22] LABS: Alanine Aminotransferase 26 U/L (0-31); Albumin Level 4.6 g/dL (3.5-5.0); Alkaline Phosphatase 159 U/L (39-117); Anion Gap 14 (12-20); Aspartate Amino Transferase 23 U/L (5-31); Blood Urea Nitrogen 14 mg/dL (9-16); Calcium 9.8 mg/dL (8.4-10.2); Carbon Dioxide 27 mmol/L (22-29); Chloride 104 mmol/L (96-108); Creatinine Clr Calc Pharmacy 44.6; Estimated Glomerular Filt Rate > 60; Potassium 4.9 mmol/L (3.3-5.1); Sodium 140 mmol/L (135-145); Total Protein 7.0 g/dL (6.5-8.0)
--- OUTSIDE RECORDS SUMMARY | 2025-10-20 18:32 | XMS_ITS | Clinical Summary ---
Author Organization [facility] 299 [facility] Address [address] [place] [address] Phone Care Team Providers Care Oil Gas And Pipe Tester Name Role Phone Tami Francis MD Primary Care Provider [phone] Allergies Active Allergy Reactions Criticality Noted Date [...] disease segment. Narrative 06/20/2025 3:31 PM EDT [facility] GI Patient Name: Miriam Dennison Procedure Date: 06/20/2025 3:10 PM Date of : 1950 Age: 74 Gender: Female Note Status: Finalized Attending MD: Ron Adam DO, [id number] Procedure Date No Time: 06/20/2025 Procedure: Colonoscopy [...] the physician, the nurse, the anesthesiologist, the rf technician and the lead maintenance technician in the pre-procedure area in [...] retroflexion views. Procedure Code(s): --- Professional --- 15675, Colonoscopy, flexible; with removal of tumor(s), polyp(s), or other lesion(s) by snare technique Diagnosis Code(s): --- Professional --- K64.9, Unspecified hemorrhoids D12.5, Benign neoplasm of sigmoid colon D12.4, Benign neoplasm of descending colon K57.30, Diverticulosis of large intestine without perforation or abscess without bleeding CPT copyright 2020 [employer]. All rights reserved. The codes documented in this report are preliminary and upon coder operator review may be revised to meet current compliance requirements. RON Adam DO 06/20/2025 3:31:11 PM This report has been signed electronically.Ron Adam DO Number of Addenda: 0 Note Initiated On: 06/20/2025 3:10 PM Scope Withdrawal Time: 0 hours 8 minutes 20 seconds Scope In: 3:17:07 PM Scope Out: 3:29:30 PM Endoscopy Department at [facility] - [address] [place] [phone] Procedure Note Ron Adam DO - 06/20/2025 [facility] GI Patient Name: Miriam Dennison Procedure Date: 06/20/2025 3:10 PM Date of : 1950 Age: 74 Gender: Female Note Status: Finalized Attending MD: Ron Adam DO, [id number] Procedure Date No Time: 06/20/2025 Procedure: Colonoscopy [...] the physician, the nurse, the anesthesiologist, the rf technician and thetechnician in the pre-procedure area [...] retroflexion views. Procedure Code(s): --- Professional --- 73664, Colonoscopy, flexible; with removal of tumor(s), polyp(s), or other lesion(s) by snare technique Diagnosis Code(s): --- Professional --- K64.9, Unspecified hemorrhoids D12.5, Benign neoplasm of sigmoid colon D12.4, Benign neoplasm of descending colon K57.30, Diverticulosis of large intestine without perforation or abscess without bleeding CPT copyright 2020 [employer]. All rights reserved. The codes documented in this report are preliminary and upon coder operator reviewmay be revised to meet current compliance requirements. RON Adam DO 06/20/2025 3:31:11 PM This report has been signed electronically.Ron Adam DO Number of Addenda: 0 Note Initiated On: 06/20/2025 3:10 PM Scope Withdrawal Time: 0 hours 8 minutes 20 seconds Scope In: 3:17:07 PM Scope Out: 3:29:30 PM Endoscopy Department at [facility] - [address] [place] [phone] IMPRESSION: - Hemorrhoids found on perianal exam. [...] [facility] Care Teams Oil Gas And Pipe Tester Relationship Specialty Start Date End Date Tami Francis MD [address] [place] [address] PCP - General Internal Medicine 03/07/25
--- OUTSIDE RECORDS SUMMARY | 2025-10-20 18:32 | XMS_ITS | Clinical Summary ---
Author Organization [facility] Address [address] [place] [address] Care Team Providers Care Data Processing Control Clerk Name Role Phone Tami Francis MD Primary Care Provider [phone] Allergies Active Allergy Reactions Criticality Noted Date [...] capsule by mouth daily. Active nystatin (MYCOSTATIN) 180829 UNIT/ML suspensionIndicat ions:Throat discomfort Take 5 mL [...] Years Used Date Smoking Tobacco: Former Cigarettes 0.5 Q uit: 01/21/2001 Passive Smoke Exposure: Past [...] Influenza Vaccine 06/16/2025 11/27/2016, 07/27/2015 COVID-19 Vaccine (1 - 2023-2 5 season) 2025 DTaP/Tdap/Td Vaccines (2 - T d or Tdap) 11/30/2027 11/30/2017 Colonoscopy 06/20/2035 06/20/2025 Pneumococcal Vaccines 50+ Completed 2019, 11/27/2016 Hepatitis B Vaccines Aged Out No long er eligible based on patient's age to complete this topic Insurance MEDICARE PART A & B [facility] MEDICARE PART A & B [facility] OUT [facility] Advance Directives * Full Code (Latest Code Status on File) Date Activated Date Inactivated Comments 01/23/2023 6:34 PM Care Teams Data Processing Control Clerk Relationship Specialty Start Date End Date Tami Francis MD [address] [place] [address] PCP - General Internal Medicine 01/23/23
--- OUTSIDE RECORDS SUMMARY | 2025-10-20 18:32 | XMS_ITS | Patient Health Record ---
Author Organization [employer] [facility] Address [address] [address] Care Team Providers Care Health Consultant Name Role Phone YASMANY ARCE M.D. Primary Care Provider Valorie Campos Unavailable [phone] Allergies Allergen (clinical drug ingredient) Drug/Non Drug [...] Active Multivitamins 1 ORAL daily; Duration: -3 [facility] 01/20/2012 Active amLODIPine Besylate 5MG 1 ORAL daily; Duration: -3 [facility] NORVASC 06/28/2012 Active Losartan Potassium 50 MG Oral; Duration: 90 Days Active Vitamin E 400 UNIT 1 capsule Orally Once a day; Duration: 30 day(s) Active Calcium-D 600MG 1 ORAL daily; Duration: -3 [facility] 01/20/2012 Active Armodafinil 150 MG TAKE ONE TABLET BY MOUTH EVERY MORNING Oral; Duration: 30 Days Active Vitamin C 500MG 2 grams ORAL daily [facility] 04/24/2014 Active diazePAM 5 MG Oral; Duration: [...] I disorder, most recent episode depressed (disorder) (16090806) Bipolar I disorder, most recent episode (or current) depressed, unspecified (296.50) Active confirmed Problem 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 Problem Essential hypertension (81725687) Unspecified essential hypertension (401.9) Active confirmed Problem Menopausal symptom (93784672) Symptomatic menopausal or female climacteric states (627.2) Active confirmed Problem Disorder of bone and articular cartilage (disorder) (522044950) Disorder of bone and cartilage, unspecified (733.90) Active confirmed Problem Postmenopausal atrophic vaginitis (02506182) Postmenopausal atrophic vaginitis (N95.2) Active confirmed Problem Age-related osteoporosis (545827164) Age-related osteoporosis without current pathological fracture (M81.0) Active confirmed Problem History of dysplasia of cervix (245720713) Personal history of cervical dysplasia (Z87.410) Active confirmed Problem General examination of patient (669871558) Routine general medical examination at health care facility (V70.0) Active confirmed Diag Problem Gynecological examination normal (012073767282941) Routine gynecological examination (V72.31) Active confirmed Problem Screening for malignant neoplasm of colon (657628734) Special screening for malignant neoplasms, colon (V76.51) [...] Provider Name:Valorie montesinos, 12/18/2025 01:20:00 PM, [address], [address], [place], [address], Insurance Providers Payer Name Payer Address Payer Phone Subscriber Number Group Number Insured Name Patient Relationship to Insured Coverage Start Date Coverage End Date MEDICARE [address] MARY KANG [id number] TEDDY DENNISON Self - patient is the insured MEDEX [address] [place] [address] [id number] TEDDY DENNISON Self - patient is [...]
--- NOTE | 2025-10-20 19:02 | PC.NURSE ---
verbal report given to floor
--- NOTE | 2025-10-20 20:20 | MHC.EDTECH ---
pt continues to refuse EKG
[2025-10-20 22:40] VITALS: BMI 20.1
[2025-10-20 23:00] VITALS: BP 188/89; PULSE 90; RESP 16; TEMP 37.4; O2SAT 96
[2025-10-20] MEDS: Magnesium Hydrox/Alum Hydrox 30 ML ORAL.SUSP PO (23:10)
[2025-10-20 23:21] VITALS: BP 188/89
--- NOTE | 2025-10-21 05:57 | PC.NURSE ---
Pt is a 74 year old female admitted to unit after referral from CARE team. Pt arrived on unit at 2220. Legal status: CV. Pt's medical issue is diverticulitis, HTN. Pt denies etoh or substance use. Pt reports that she is a former smoker. Pt was too anxious to complete admission so it was done by crisis evaluation. Per crisis evaluation, pt has, since , been having increasing and worsening depression and frequent SI as well as lack of motivation for hobbies. Per spouse, pt has lost significant weight in past few weeks and states that she was supposed to start ECT yesterday but was unable to. He states that pt isn't able to engage in daily activities. He also reports that pt can decompensate quickly. Pt came to ED and stated, I regret coming here after being admitted to POD. Pt presents as very anxious and very irritable. Pt was able to sign paperwork but stated she could not complete her admission as she wanted to rest. Pt was angry regarding being left in POD all this time and having to come up to the floor at this hour (2220). Pt was at times tremulous. Provider special education teachers aware of admission and put orders in. Pt was placed on 5 minute safety checks. Pt was able to contract for safety.
[2025-10-21 08:25] VITALS: BP 144/81; PULSE 83; RESP 16; TEMP 35.9; O2SAT 96
[2025-10-21 08:31] LABS: MANUAL DIFF FLAG NO
[2025-10-21 08:41] LABS: Hematocrit 42.8 % (37.0-47.0); Hemoglobin 14.4 g/dl (12.0-16.0); Imm Gran Abs Auto 0.02 X10*3/uL (0.00-0.03); Imm Gran Pct Auto 0.3 % (0.0-0.4); Lymphocytes Absolute Auto 1.7 X10*3/uL (1.2-4.9); Mean Corpuscular HGB Conc 33.6 g/dl (31.0-35.0); Mean Corpuscular Hemoglobin 30.1 pg (27.0-33.0); Mean Corpuscular Volume 89.5 fL (80.0-98.0); NRBC Abs Auto 0.000 X10*3/uL (0.0-0.012); NRBC Pct Auto 0.0 /100WBC (0.0-0.2); Platelet Count 257 X10*3/uL (160-400); Red Blood Count 4.78 X10*6/uL (4.20-5.50); White Blood Count 6.1 X10*3/uL (4.8-10.8)
[2025-10-21] MEDS: buPROPion HCl XL 150 MG TAB.ER.24H PO (08:52)
--- NOTE | 2025-10-21 08:53 | PC.NURSE ---
Pt reports previously receiving flu vaccine this year.
[2025-10-21 09:09] LABS: Alanine Aminotransferase 24 U/L (0-31); Albumin Level 4.2 g/dL (3.5-5.0); Alkaline Phosphatase 139 U/L (39-117); Anion Gap 11 (12-20); Aspartate Amino Transferase 20 U/L (5-31); Blood Urea Nitrogen 17 mg/dL (9-16); Calcium 9.7 mg/dL (8.4-10.2); Carbon Dioxide 29 mmol/L (22-29); Chloride 107 mmol/L (96-108); Cholesterol 155 mg/dL (<200); Creatinine Clr Calc Pharmacy 44.1; Estimated Glomerular Filt Rate > 60; HDL Cholesterol 54 mg/dL (>40); Potassium 4.5 mmol/L (3.3-5.1); Sodium 142 mmol/L (135-145); Total Protein 6.3 g/dL (6.5-8.0); Triglycerides 109 mg/dL (<150)
--- NOTE | 2025-10-21 09:19 | HO.PSYADMNOT ---
HPI Date of Service: 10/21/25 Chief Complaint: depression si Sources of Information: patient interviewed, chart reviewed and crisis/core team assessment reviewed Additional Sources of Information: ECT administration notes June 2025 HPI Subjective Notes: Conditional Voluntary Narrative: As per ED NOte 10/19/25: on ECT presenting to the emergency department today with worsening depression and suicidal ideation. Patient states that she has had worsening depression. Patient's states that they spoke with Dr. Shearer, their psychiatric, who recommended psychiatric admission and sent them here to begin that process. Today: Patient endorses worsening depression, anxiety, hopelessness and thoughts of since Thanksgiving. It was clear that she was not having active suicidal thoughts. Reported no clear understanding of why things suddenly decompensated after Thanksgi and that she had been doing well up until that point. Since then depressed, no energy, no appetite, weight loss, no motivation or interest, decreased ADLs. No med changes. No substance concerns. No psychosis. Consistent with record last ECT was in June this year. Reports plan is to restart ECT and hopefully have clearance in place so this can be initiated again on Thursday10/23/2025 . Labs reviewed and largely unremarkable with slightly elevated BUN. UA positive leuk est, but asymptomatic. Past Psychiatric History: -Pt sees Dr. Shearer in OP setting . Last ECT June 2025. Last inpatient episode 2022 as per records. Reports 1st psychiatric admission in her 40s approximately. First ECT sessions approximately 10 years ago. Also has a therapist. Denies any history of suicide attempts or psychosis. 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. Both retired. Occasional marijuana use. Trauma History: NA Diagnostics Vital Signs (24Hr): Vital Signs - 24 hr 10/20/25 14:09 10/20/25 23:00 10/20/25 23:21 Temperature 97.3 F 99.4 F Pulse Rate 79 90 Respiratory Rate 18 16 Blood Pressure 179/82 H 188/89 H 188/89 H Pulse Oximetry 95 96 Oxygen Delivery Method Room Air Room Air 10/21/25 08:25 Temperature 96.7 F L Pulse Rate 83 Respiratory Rate 16 Blood Pressure 144/81 H Pulse Oximetry 96 Oxygen Delivery Method Room Air BMI result Body Mass Index 20.1 Labs 10/21/25 08:07 10/21/25 08:07 Labs: Laboratory Results - last 48 hr 10/20/25 10/21/25 14:44 08:07 WBC 7.6 6.1 RBC 5.07 4.78 Hgb 15.2 14.4 Hct 46.1 42.8 MCV 90.9 89.5 MCH 30.0 30.1 MCHC 33.0 33.6 RDW 12.7 12.6 Plt Count 282 257 MPV 9.9 9.9 Immature Gran % (Auto) 0.3 0.3 Neut % (Auto) 78.1 H 60.5 Lymph % (Auto) 14.3 L 28.0 [place] % (Auto) 5.9 8.4 Eos % (Auto) 0.9 2.3 Baso % (Auto) 0.5 0.5 Lymph # (Auto) 1.1 L 1.7 [place] # (Auto) 0.5 0.5 Eos # (Auto) 0.1 0.1 Baso # (Auto) 0.0 0.0 Abs Immat Gran (auto) 0.02 0.02 Absolute Neuts (auto) 5.9 3.7 Absolute Nucleated RBC 0.000 0.000 Nucleated RBC % (auto) 0.0 0.0 Sodium 140 142 Potassium 4.9 4.5 Chloride 104 107 Carbon Dioxide 27 29 Anion Gap 14 11 L BUN 14 17 H Creatinine 0.83 0.83 Estim Creat Clear Calc 44.6 44.1 Estimated GFR > 60 > 60 Random Glucose 104 99 Estimat Average Glucose 111 Hemoglobin A1c % 5.5 Calcium 9.8 9.7 Total Bilirubin 0.2 0.2 AST 23 20 ALT 26 24 Alkaline Phosphatase 159 H 139 H Total Protein 7.0 6.3 L Albumin 4.6 4.2 Triglycerides 109 Cholesterol 155 LDL Cholesterol, Calc 80 HDL Cholesterol 54 Urine Color Yellow Urine Appearance Clear Urine pH 6.5 Ur Specific [place] 1.010 Urine Protein Negative Urine Glucose (UA) Negative Urine Ketones Negative Urine Blood Negative Urine Nitrite Negative Ur Leukocyte Esterase Trace H Urine RBC 0-2 Urine WBC 0-5 Ur Squamous Epith Cells 3-5 Urine Bacteria None Seen Hyaline Casts 0-2 Salicylates < 5.0 L Urine Opiates Screen Not Detected Ur Buprenorphine Scrn Not Detected Ur Oxycodone Screen Not Detected Urine Methadone Screen Not Detected Urine Fentanyl Screen Not Detected Acetaminophen < 3 Ur Barbiturates Screen Not Detected Ur Phencyclidine Scrn Not Detected Ur Amphetamines Screen Not Detected U Benzodiazepines Scrn POSITIVE H Urine Cocaine Screen Not Detected U Marijuana (THC) Screen Not Detected Ethyl Alcohol < 10 Meds/Allergies Meds Home Medications ?Medication ?Instructions ?Recorded ?Confirmed ?Type famotidine 40 mg tablet 40 mg PO DAILY 11/03/24 10/21/25 History amlodipine 5 mg tablet 5 mg PO DAILY 10/21/25 10/21/25 History bupropion HCl 150 mg tablet,12 hr 150 mg PO BID 10/21/25 10/21/25 History sustained-release diazepam 5 mg tablet 2.5 - 5 mg PO DAILY PRN anxiety 10/21/25 10/21/25 History diazepam 5 mg tablet 5 mg PO BEDTIME 10/21/25 10/21/25 History estradiol 10 mcg vaginal tablet 10 mcg vaginal 2XW 10/21/25 10/21/25 History (Yuvafem) quetiapine 25 mg tablet 25 mg PO DAILY PRN Anxiety 10/21/25 10/21/25 History quetiapine 25 mg tablet 75 mg PO BEDTIME 10/21/25 10/21/25 History Allergies Allergies Allergy/AdvReac Type Severity Reaction Status Date / Time No Known Allergies Allergy Verified 10/20/25 14:10 Mental Status Exam Mental Status Exam Narrative: Pleasant. Engaged. Casually dressed presented. Decreased self-care.Obviously depressed with psychomotor retardation. Hopeless and thoughts of but no active SI . No psychosis. No HI. No agitation. Insight and judgment good Assessment & Plan Assessment & Plan (1) Major depressive disorder, recurrent severe without psychotic features: Status: Acute Code(s): F33.2 - Major depressive disorder, recurrent severe without psychotic features (2) ZAC (generalized anxiety disorder): Status: Acute Code(s): F41.1 - Generalized anxiety disorder (3) ADHD (attention deficit hyperactivity disorder): Status: Acute Code(s): F90.9 - Attention-deficit hyperactivity disorder, unspecified type Plan 74-year-old female, with established history of major depressive disorder who has responded to ECT in the past, being admitted for plan of reinitiate an ECT (hopefully on Thursday10/23/2025 and awaiting clearance for same) , presenting with severe depression, anhedonia, poor appetite, weight loss, decreased self-care, hopelessness . Admitted on a voluntary basis. Continue preadmission medications. Awaiting ECT clearance hopefully for Thursday10/23/2025. Patient educated on: diagnosis and therapeutic strategies Informed Consent: understands Reason for continued inpatient stay Substantial Risk for: inability to function Statement Statement: I have reviewed the history and physical and performed a pertinent examination on my patient. No changes have occurred unless specified. If the History and Physical was not performed prior to admission, the Hospitalist's service will be consulted for completing the admission physical. Time Spent With Patient Time: Total time managing care of this patient today ____ minutes.
[2025-10-21 09:23] LABS: Thyroid Stimulating Hormone 1.05 uIU/mL (0.32-4.0)
--- NOTE | 2025-10-21 09:59 | PC.NURSE ---
Miriam is reporting having increased mucus in her mouth that is causing her to have difficulty with swallowing. She denies fever, shortness of breath, cough, nasal congestion or sinus pain. She states that it has been ongoing for a few weeks but worsening over the last few days. Vitals stable. Adrian Beckman MD notified. Existing hospitalist consult in place, called in.
[2025-10-21 16:23] VITALS: BP 150/76
[2025-10-21 20:06] VITALS: BP 151/85; PULSE 85; RESP 16; TEMP 36.4; O2SAT 96
[2025-10-21] MEDS: Magnesium Hydrox/Alum Hydrox 30 ML ORAL.SUSP PO (20:50)
--- NOTE | 2025-10-22 07:51 | P.PNPSI_ITS ---
Subjective Subjective Date of Service: 10/22/25 Reason For Visit: depression si Subjective Notes: Conditional Voluntary Interim History: Met with patient. Discussed with Nursing. Ongoing depression and anxiety, for self-care, motivation, hopelessness, poor sleep and appetite. Hopeful can be cleared for ECT to start tomorrow. Has somatic complaints but does report feeling physically better today compared to yesterday and that GI discomfort and rib pain resolved. Remains unsure that she made the right decision to come to hospital and start ECT, but still agreeable to same Medication Compliance: Yes Side effects from medications: No Attending Groups: No Review of Systems Acute medical concerns: No Mental Status Exam Mental Status Exam Narrative: Pleasant. Engaged. Casually dressed presented. Decreased self-care. Obviously depressed with psychomotor retardation. Hopeless and thoughts of but no active SI . No psychosis. No HI. No agitation. Insight and judgment good Diagnostics Vital Signs (24Hr): Vital Signs - 24 hr 10/21/25 08:25 10/21/25 16:23 10/21/25 20:06 Temperature 96.7 F L 97.6 F Pulse Rate 83 85 Respiratory Rate 16 16 Blood Pressure 144/81 H 150/76 H 151/85 H Pulse Oximetry 96 96 Oxygen Delivery Method Room Air Room Air BMI result Body Mass Index 20.1 Labs 10/21/25 08:07 10/21/25 08:07 Labs: Laboratory Results - last 48 hr 10/20/25 10/21/25 14:44 08:07 WBC 7.6 6.1 RBC 5.07 4.78 Hgb 15.2 14.4 Hct 46.1 42.8 MCV 90.9 89.5 MCH 30.0 30.1 MCHC 33.0 33.6 RDW 12.7 12.6 Plt Count 282 257 MPV 9.9 9.9 Immature Gran % (Auto) 0.3 0.3 Neut % (Auto) 78.1 H 60.5 Lymph % (Auto) 14.3 L 28.0 [place] % (Auto) 5.9 8.4 Eos % (Auto) 0.9 2.3 Baso % (Auto) 0.5 0.5 Lymph # (Auto) 1.1 L 1.7 [place] # (Auto) 0.5 0.5 Eos # (Auto) 0.1 0.1 Baso # (Auto) 0.0 0.0 Abs Immat Gran (auto) 0.02 0.02 Absolute Neuts (auto) 5.9 3.7 Absolute Nucleated RBC 0.000 0.000 Nucleated RBC % (auto) 0.0 0.0 Sodium 140 142 Potassium 4.9 4.5 Chloride 104 107 Carbon Dioxide 27 29 Anion Gap 14 11 L BUN 14 17 H Creatinine 0.83 0.83 Estim Creat Clear Calc 44.6 44.1 Estimated GFR > 60 > 60 Random Glucose 104 99 Estimat Average Glucose 111 Hemoglobin A1c % 5.5 Calcium 9.8 9.7 Total Bilirubin 0.2 0.2 AST 23 20 ALT 26 24 Alkaline Phosphatase 159 H 139 H Total Protein 7.0 6.3 L Albumin 4.6 4.2 Triglycerides 109 Cholesterol 155 LDL Cholesterol, Calc 80 HDL Cholesterol 54 TSH 1.05 Urine Color Yellow Urine Appearance Clear Urine pH 6.5 Ur Specific [place] 1.010 Urine Protein Negative Urine Glucose (UA) Negative Urine Ketones Negative Urine Blood Negative Urine Nitrite Negative Ur Leukocyte Esterase Trace H Urine RBC 0-2 Urine WBC 0-5 Ur Squamous Epith Cells 3-5 Urine Bacteria None Seen Hyaline Casts 0-2 Salicylates < 5.0 L Urine Opiates Screen Not Detected Ur Buprenorphine Scrn Not Detected Ur Oxycodone Screen Not Detected Urine Methadone Screen Not Detected Urine Fentanyl Screen Not Detected Acetaminophen < 3 Ur Barbiturates Screen Not Detected Ur Phencyclidine Scrn Not Detected Ur Amphetamines Screen Not Detected U Benzodiazepines Scrn POSITIVE H Urine Cocaine Screen Not Detected U Marijuana (THC) Screen Not Detected Ethyl Alcohol < 10 Medications Medications Current Medications Acetaminophen (Acetaminophen 325 Mg Tablet) 650 mg PO Q6H PRN PRN Reason: Headache/Pain, Scale 1-10 Al Hydroxide/Mg Hydroxide (Magnesium Hydrox/Alum Hydrox 30 Ml Oral.Susp) 30 ml PO Q6H PRN PRN Reason: Heartburn/Nausea Last Admin: 10/21/25 20:50 Dose: 30 ml Amlodipine Besylate (Amlodipine Besylate 5 Mg Tablet) 5 mg PO DAILY NORBERTO; Protocol Last Admin: 10/21/25 16:23 Dose: 5 mg Bupropion HCl (Bupropion Hcl Xl 150 Mg Tab.Er.24h) 150 mg PO DAILY NORBERTO Last Admin: 10/21/25 08:52 Dose: 150 mg Calcium Carbonate (Calcium Carbonate 750 Mg Tab.Chew) 750 mg PO RQ4H PRN PRN Reason: indigestion Last Admin: 10/21/25 22:23 Dose: 750 mg Diazepam (Diazepam 2 Mg Tablet) 2.5 mg PO TID PRN PRN Reason: anxiety/restlessness Last Admin: 10/21/25 15:29 Dose: 2.5 mg Diazepam (Diazepam 5 Mg Tablet) 5 mg PO BEDTIME [facility] Last Admin: 10/21/25 22:22 Dose: 5 mg Famotidine (Famotidine 20 Mg Tablet) 40 mg PO DAILY [facility] Last Admin: 10/21/25 08:51 Dose: 40 mg Hydroxyzine HCl (Hydroxyzine Hcl 25 Mg Tablet) 25 mg PO Q6H PRN PRN Reason: mild anxiety Ibuprofen (Ibuprofen 600 Mg Tablet) 600 mg PO Q6H PRN PRN Reason: Rib pain Magnesium Hydroxide (Milk Of Magnesia 30 Ml Oral.Susp) 30 ml PO DAILY PRN PRN Reason: Constipation Modafinil (Modafinil 100 Mg Tablet) 100 mg PO DAILY [facility] Last Admin: 10/21/25 08:52 Dose: 100 mg Multivitamins/Vitamin C (Multivitamin Tablet) 1 tab PO DAILY [facility] Last Admin: 10/21/25 08:52 Dose: 1 tab Quetiapine Fumarate (Quetiapine Fumarate 100 Mg Tablet) 100 mg PO BEDTIME [facility] Last Admin: 10/21/25 22:22 Dose: 100 mg Quetiapine Fumarate (Quetiapine Fumarate 25 Mg Tablet) 25 mg PO DAILY PRN PRN Reason: Anxiety Simethicone (Simethicone 80 Mg Tab.Chew) 80 mg PO QIDWMHS PRN PRN Reason: Indigestion Last Admin: 10/21/25 20:50 Dose: 80 mg Trazodone HCl (Trazodone Hcl 50 Mg Tablet) 50 mg PO BEDTIME MRX1 PRN PRN Reason: Insomnia Allergies Allergies Allergy/AdvReac Type Severity Reaction Status Date / Time No Known Allergies Allergy Verified 10/20/25 14:10 Assessment & Plan Assessment & Plan (1) Major depressive disorder, recurrent severe without psychotic features: Status: Acute Code(s): F33.2 - Major depressive disorder, recurrent severe without psychotic features (2) ZAC (generalized anxiety disorder): Status: Acute Code(s): F41.1 - Generalized anxiety disorder (3) ADHD (attention deficit hyperactivity disorder): Status: Acute Code(s): F90.9 - Attention-deficit hyperactivity disorder, unspecified type Plan 74-year-old female, with established history of major depressive disorder who has responded to ECT in the past, being admitted for plan of reinitiate an ECT (hopefully on Thursday10/23/2025 and awaiting clearance for same) , presenting with severe depression, anhedonia, poor appetite, weight loss, decreased self- care, hopelessness . Admitted on a voluntary basis. Continue preadmission medications. Awaiting ECT clearance hopefully for Thursday10/23/2025. 10/22/2025: No changes to current plan ie awaiting ECT Reason for continued inpatient stay Substantial Risk for: inability to function Time Spent With Patient Time: Total time managing care of this patient today ____ minutes.
[2025-10-22 08:00] VITALS: BP 121/63; PULSE 85; RESP 14; TEMP 36.4; O2SAT 94
[2025-10-22] MEDS: buPROPion HCl XL 150 MG TAB.ER.24H PO (08:42)
--- NOTE | 2025-10-22 13:04 | P.CONHOSP_ITS ---
History of Present Illness Data of Consult Service Date: 10/22/25 Primary Care Provider: Tami Francis MD [facility] Reason for consult: ECT, risk stratification 74 year old women with a history of depression, hypertension, gerd admitted to [facility] for [facility] health care. Labs today wnl, vital signs stable. Patient has no acute medical complaints other than abominal gas for which she is taking simethicone Review of Systems 2 Review of Systems: Denies any recent fever chills or decrease in appetite respiratory denies any shortness of breath or cough cardiovascular denied chest pain gastrointestinal denies any dysphagia abdominal pain nausea vomiting or diarrhea genitourinary denies any dysuria frequency or hematuria musculoskeletal denies any joint pain or swelling neuropsych denies any weakness or seizures all other systems reviewed are negative [facility] Medical History (Updated 10/22/25 @ 13:07 by Juliann Reyna NP) Depression Hypothyroidism ZAC (generalized anxiety disorder) Hypertension ADHD (attention deficit hyperactivity disorder) Family History Other No pertinent family history Surgical History H/O thumb surgery H/O cone biopsy of cervix Social History Household Members: Spouse Household Members Other:: And two cats. Housing: House Do you presently have visiting nurse or other home services: No Alcohol intake: never Patient Tobacco Use Status: Former Tobacco user Tobacco use type: Cigarette Years Smoked: 20 Smoked in Last 30 Days: No e-Cigarette/Vaping Use: Never Used Second Hand Smoke Exposure: No Use of substances other than those prescribed or required for medical reasons: Yes Substance Use Type: Marijuana and Other Substance Use Frequency Other:: vape marijuana and marijuana gummies Currently Displaying Signs/Symptoms of Drug Intoxication Withdrawal: No Any prior treatment program specific to substance use: No Advance Directives: No Advance Directives Information Provided: Yes Do you have thoughts of harming others: None Do you have a plan to hurt others: No Plan Recently lost weight without trying: Yes How much weight loss: Unsure Eating poorly because of decreased appetite: Yes Nutrition screen score: 5 Nutrition Risks: No Nutritional Risk Patient : No : No Poor oral hygiene: No service: No Sexual orientation: Straight/Heterosexual Meds Allergies Allergy/AdvReac Type Severity Reaction Status Date / Time No Known Allergies Allergy Verified 10/20/25 14:10 Active Medications: Current Medications Acetaminophen (Acetaminophen 325 Mg Tablet) 650 mg PO Q6H PRN PRN Reason: Headache/Pain, Scale 1-10 Al Hydroxide/Mg Hydroxide (Magnesium Hydrox/Alum Hydrox 30 Ml Oral.Susp) 30 ml PO Q6H PRN PRN Reason: Heartburn/Nausea Last Admin: 10/21/25 20:50 Dose: 30 ml Amlodipine Besylate (Amlodipine Besylate 5 Mg Tablet) 5 mg PO DAILY [facility]; Protocol Last Admin: 10/22/25 08:42 Dose: 5 mg Bupropion HCl (Bupropion Hcl Xl 150 Mg Tab.Er.24h) 150 mg PO DAILY [facility] Last Admin: 10/22/25 08:42 Dose: 150 mg Calcium Carbonate (Calcium Carbonate 750 Mg Tab.Chew) 750 mg PO RQ4H PRN PRN Reason: indigestion Last Admin: 10/21/25 22:23 Dose: 750 mg Diazepam (Diazepam 2 Mg Tablet) 2.5 mg PO TID PRN PRN Reason: anxiety/restlessness Last Admin: 10/21/25 15:29 Dose: 2.5 mg Diazepam (Diazepam 5 Mg Tablet) 5 mg PO BEDTIME [facility] Last Admin: 10/21/25 22:22 Dose: 5 mg Famotidine (Famotidine 20 Mg Tablet) 40 mg PO DAILY [facility] Last Admin: 10/22/25 08:42 Dose: 40 mg Hydroxyzine HCl (Hydroxyzine Hcl 25 Mg Tablet) 25 mg PO Q6H PRN PRN Reason: mild anxiety Ibuprofen (Ibuprofen 600 Mg Tablet) 600 mg PO Q6H PRN PRN Reason: Rib pain Magnesium Hydroxide (Milk Of Magnesia 30 Ml Oral.Susp) 30 ml PO DAILY PRN PRN Reason: Constipation Modafinil (Modafinil 100 Mg Tablet) 100 mg PO DAILY [facility] Last Admin: 10/22/25 08:43 Dose: 100 mg Multivitamins/Vitamin C (Multivitamin Tablet) 1 tab PO DAILY [facility] Last Admin: 10/22/25 08:43 Dose: 1 tab Quetiapine Fumarate (Quetiapine Fumarate 100 Mg Tablet) 100 mg PO BEDTIME [facility] Last Admin: 10/21/25 22:22 Dose: 100 mg Quetiapine Fumarate (Quetiapine Fumarate 25 Mg Tablet) 25 mg PO DAILY PRN PRN Reason: Anxiety Simethicone (Simethicone 80 Mg Tab.Chew) 80 mg PO QIDWMHS PRN PRN Reason: Indigestion Last Admin: 10/21/25 20:50 Dose: 80 mg Trazodone HCl (Trazodone Hcl 50 Mg Tablet) 50 mg PO BEDTIME MRX1 PRN PRN Reason: Insomnia Home Medications ?Medication ?Instructions ?Recorded ?Confirmed ?Last Taken ?Type famotidine 40 mg tablet 40 mg PO DAILY 11/03/2405/10 Unknown History amlodipine 5 mg tablet 5 mg PO DAILY 10/21/2510/21 Unknown History bupropion HCl 150 mg tablet,12 hr 150 mg PO BID 10/21/25 Unknown History sustained-release diazepam 5 mg tablet 2.5 - 5 mg PO DAILY PRN anxi ety 10/21/25 10/21/25 Unknown History diazepam 5 mg tablet 5 mg PO BEDTIME 10/21/2505/10 Unknown History estradiol 10 mcg vaginal tablet 10 mcg vaginal 2XW 05/1010/21/25 Unknown History (Yuvafem) quetiapine 25 mg tablet 25 mg PO DAILY PRN Anxiety 1 12/22/24 10/21/25 10/20/25 23:00 History quetiapine 25 mg tablet 75 mg PO BEDTIME 10/21/2510/20/25 23:00 History Physical Exam 2 Vital Signs and Narrative: Vital Signs: Last Vital Signs Temp 97.5 F 10/22/25 08:00 Pulse 85 10/22/25 08:00 Resp 14 10/22/25 08:00 BP 121/63 10/22/25 08:00 Pulse Ox 94 10/22/25 08:00 O2 Del Method Room Air 10/22/25 08:00 BMI result Body Mass Index 20.1 Appearing in no acute distress head is normocephalic atraumatic eyes pupils are PERRLA sclera is anicteric mouth throat mucous membranes are intact and moist neck is supple no lymphadenopathy lung sounds are clear to auscultation heart regular rate rhythm positive bowel sounds, abdomen is soft, nontender neuro patient is alert x3, no focal deficits Cranial nerves 2-12 are grossly intact without focal deficits Results Labs 10/21/25 08:07 10/21/25 08:07 Assessment and Plan (1) Hypertension: Status: Chronic Plan 74 year old women with hx of depression admitted to adult [facility] for mental health care. ECT Patient has a history of ECT with no negative reaction. She denied history of aortic stenosis, asthma, COPD, atrial fibrillation, coronary artery disease, diabetes, ICD, anticoagulation, , seizures. EKG shows normal QTC of 434. No medical contraindications noted at this time for ECT.
[2025-10-22] MEDS: Magnesium Hydrox/Alum Hydrox 30 ML ORAL.SUSP PO (15:08)
[2025-10-22 20:00] VITALS: BP 116/70; PULSE 84; RESP 16; TEMP 36.4; O2SAT 97
[2025-10-23] VITALS (10 sets, daily range): BP systolic 103–141; BP diastolic 49–73; PULSE 73–87; RESP 14–22; TEMP 36.1–36.9; O2SAT 93–96
--- NOTE | 2025-10-23 07:53 | MHC.SHP ---
Pre-Procedural Eval Section A - 24 Hr Update-Section A only Date of Service: 10/23/25 Changes since office visit: Yes Changes in Medication and Yes Patient answered all questions; No Cold of Flu in the past 2 weeks and No New Medical Problems The patient has been examined within 24 hours of the surgical procedure. The History & Physical has been completed within 30 days and I have reviewed it.: Yes Section B - Complete if H&P > 30 days Chief Complaint: depression si Allergies: Allergies Allergy/AdvReac Type Severity Reaction Status Date / Time No Known Allergies Allergy Verified 10/20/25 14:10 Plan I have reviewed the history and physical and performed a pertinent physical examination on my patient. No changes have occurred unless specified. Time Spent With Patient Time: Total time managing care of this patient today ____ minutes.
[2025-10-23] MEDS: buPROPion HCl XL 150 MG TAB.ER.24H PO (09:37)
--- NOTE | 2025-10-23 10:52 | HO.ECTPROC ---
ECT Procedure Note Diagnosis/Treatment Date of Service: 10/23/25 Diagnosis: Major Depressive Disorder Previous ECT Date: 07/03/25 Current Treatment Number: 1 Treatment: Series Interval Clinical Notes: Pt anxious irritable dysphoric feeling like she would do better at home scopolamine patch very helpful Time: Total time managing care of this patient today _30___ minutes. ECT Settings Device: THYMATRON DGx Electrode Placement: Bifrontal Program/Pulse Width: 0.50 Energy Percent: 100 Seizure Duration By EEG (in seconds): 27 Medications Administration General Anesthetic: Methohexital (100) Muscle Relaxant: Succinylcholine (100) Ancillary Medications Anti-emetics: Zofran - Pre ECT (4) Miscillaneous Medications: Propofol (50) and Other Airway Management Airway Management: Bag Mask Ventilation Treatment Recommendations No Changes Recommended: No change Pt Tolerated Procedure w/o Issue: Yes
--- NOTE | 2025-10-23 13:50 | MHC.CLN ---
CONSULT NUTRITION CONSULT ROUTINE. PER ADM NOTES, SPOUSE REPORTS THAT PATIENT HAS LOST WEIGHT IN THE PAST FEW WEEKS . REVIEW OF WEIGHT HX SHOWS NO SIGNIFICANT WEIGHT CHANGE X 11 MONTHS. PATIENT STARTED ECT. DIET RX: REGULAR. NO ADDITIONAL NUTRITION INTERVENTIONS AT THIS TIME.
--- NOTE | 2025-10-23 13:57 | P.DS_ITS ---
DS: Providers Provider Date of Service: 10/23/25 Date of admission: 10/20/25 19:04 Date of discharge: 10/23/25 Primary care physician: aTmi Francis MD Attending physician on admission: Yovany Shearer Consults: 10/20/25 19:11 Consult to Hospitalist Routine Comment: Consulting Provider: [facility] Hospitalists Reason For Exam: ect clearance for 10/23 Attending physician on discharge: Yoavny Shearer DS: Diagnosis Discharge Diagnosis (1) Major depressive disorder, recurrent severe without psychotic features: Status: Acute (2) ZAC (generalized anxiety disorder): Status: Acute (3) ADHD (attention deficit hyperactivity disorder): Status: Acute DS: Medications Discharge Medications Home Medications: Home Medications ?Medication ?Instructions ?Recorded ?Confirmed famotidine 40 mg tablet 40 mg PO DAILY 11/03/2405/10 amlodipine 5 mg tablet 5 mg PO DAILY 10/21/2510/21 diazepam 5 mg tablet 2.5 - 5 mg PO DAILY PRN anxi ety 10/21/25 10/21/25 diazepam 5 mg tablet 5 mg PO BEDTIME 10/21/2505/10 estradiol 10 mcg vaginal tablet 10 mcg vaginal 2XW 05/1010/21/25 (Yuvafem) quetiapine 25 mg tablet 25 mg PO DAILY PRN Anxiety 1 12/22/24 10/21/25 Previous Rx's ?Medication ?Instructions ?Recorded armodafinil 150 mg tablet 75 mg (1/2 x 150 mg) PO QAM #15 09/04/25 tabs bupropion HCl 150 mg tablet,12 hr 150 mg PO DAILY 30 d ays #30 tabs 10/23/25 sustained-release quetiapine 100 mg tablet 100 mg PO BEDTIME 30 days #3 0 tabs 10/23/25 Mental Status Exam Mental Status Exam Narrative: Casually dressed presented. Decreased self-care. Mood depressed depressed with psychomotor retardation somewhat irritable. Hopeless helpless and thoughts of but no active SI . No psychosis. No HI. No agitation. Insight and judgment good feels she can manage herself at home and has been generally speaking at times feels overwhelmed with level of depression she can get into especially after feeling well a few weeks ago Data Data Completed and Pending Completed studies during hospitalization [Text1]: 10/20/25 10/21/25 14:44 08:07 WBC 7.6 6.1 RBC 5.07 4.78 Hgb 15.2 14.4 Hct 46.1 42.8 MCV 90.9 89.5 MCH 30.0 30.1 MCHC 33.0 33.6 RDW 12.7 12.6 Plt Count 282 257 MPV 9.9 9.9 Immature Gran % (Auto) 0.3 0.3 Neut % (Auto) 78.1 H 60.5 Lymph % (Auto) 14.3 L 28.0 [place] % (Auto) 5.9 8.4 Eos % (Auto) 0.9 2.3 Baso % (Auto) 0.5 0.5 Lymph # (Auto) 1.1 L 1.7 [place] # (Auto) 0.5 0.5 Eos # (Auto) 0.1 0.1 Baso # (Auto) 0.0 0.0 Abs Immat Gran (auto) 0.02 0.02 Absolute Neuts (auto) 5.9 3.7 Absolute Nucleated RBC 0.000 0.000 Nucleated RBC % (auto) 0.0 0.0 Sodium 140 142 Potassium 4.9 4.5 Chloride 104 107 Carbon Dioxide 27 29 Anion Gap 14 11 L BUN 14 17 H Creatinine 0.83 0.83 Estim Creat Clear Calc 44.6 44.1 Estimated GFR > 60 > 60 Random Glucose 104 99 Estimat Average Glucose 111 Hemoglobin A1c % 5.5 Calcium 9.8 9.7 Total Bilirubin 0.2 0.2 AST 23 20 ALT 26 24 Alkaline Phosphatase 159 H 139 H Total Protein 7.0 6.3 L Albumin 4.6 4.2 Triglycerides 109 Cholesterol 155 LDL Cholesterol, Calc 80 HDL Cholesterol 54 TSH 1.05 Urine Color Yellow Urine Appearance Clear Urine pH 6.5 Ur Specific [place] 1.010 Urine Protein Negative Urine Glucose (UA) Negative Urine Ketones Negative Urine Blood Negative Urine Nitrite Negative Ur Leukocyte Esterase Trace H Urine RBC 0-2 Urine WBC 0-5 Ur Squamous Epith Cells 3-5 Urine Bacteria None Seen Hyaline Casts 0-2 Salicylates < 5.0 L Urine Opiates Screen Not Detected Ur Buprenorphine Scrn Not Detected Ur Oxycodone Screen Not Detected Urine Methadone Screen Not Detected Urine Fentanyl Screen Not Detected Acetaminophen < 3 Ur Barbiturates Screen Not Detected Ur Phencyclidine Scrn Not Detected Ur Amphetamines Screen Not Detected U Benzodiazepines Scrn POSITIVE H Urine Cocaine Screen Not Detected U Marijuana (THC) Screen Not Detected Ethyl Alcohol < 10 10/21/25 Unknown Urine clean catch Urine Culture - Final DS: Summary Hospital Course Hospital Course: [address] [address] Psychiatry Admission Note (In) Signed Patient: Miriam Valencia MR#: [id number] : 1950 Acct:[id number] Age/Sex: 74 / F Loc: .[id number]: Yovany Shearer MD cc: Adrian Beckman MD~ HPI Date of Service: 10/21/25 Chief Complaint: depression si Sources of Information: patient interviewed, chart reviewed and crisis/core team assessment reviewed Additional Sources of Information: ECT administration notes June 2025 HPI Subjective Notes: Conditional Voluntary Narrative: As per ED NOte 10/19/25: on ECT presenting to the emergency department today with worsening depression and suicidal ideation. Patient states that she has had worsening depression. Patient's states that they spoke with Dr. Tiki rouse, their psychiatric, who recommended psychiatric admission and sent them here to begin that process. Today: Patient endorses worsening depression, anxiety, hopelessness and thoughts of since Thanksgi. It was clear that she was not having active suicidal thoughts. Reported no clear understanding of why things suddenly decompensated after Thanksgi and that she had been doing well up until that point. Since then depressed, no energy, no appetite, weight loss, no motivation or interest, decreased ADLs. No med changes. No substance concerns. No psychosis. Consistent with record last ECT was in June this year. Reports plan is to restart ECT and hopefully have clearance in place so this can be initiated again on Thursday10/23/2025 . Labs reviewed and largely unremarkable with slightly elevated BUN. UA positive leuk est, but asymptomatic. Past Psychiatric History: -Pt sees Dr. Shearer in OP setting . Last ECT June 2025. Last inpatient episode 2022 as per records. Reports 1st psychiatric admission in her 40s approximately. First ECT sessions approximately 10 years ago. Also has a therapist. Denies any history of suicide attempts or psychosis. 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. Both retired. Occasional marijuana use. Trauma History: NA Diagnostics Vital Signs (24Hr): Vital Signs - 24 hr 10/20/25 14:09 10/20/25 23:00 10/20/25 23:21 Temperature 97.3 F 99.4 F Pulse Rate 79 90 Respiratory Rate 18 16 Blood Pressure 179/82 H 188/89 H 188/89 H Pulse Oximetry 95 96 Oxygen Delivery Method Room Air Room Air 10/21/25 08:25 Temperature 96.7 F L Pulse Rate 83 Respiratory Rate 16 Blood Pressure 144/81 H Pulse Oximetry 96 Oxygen Delivery Method Room Air BMI result Body Mass Index 20.1 Labs 10/21/25 08:07 document embedded image 10/21/25 08:07 document embedded image Labs: Laboratory Results - last 48 hr 10/20/25 10/21/25 14:44 08:07 WBC 7.6 6.1 RBC 5.07 4.78 Hgb 15.2 14.4 Hct 46.1 42.8 MCV 90.9 89.5 MCH 30.0 30.1 MCHC 33.0 33.6 RDW 12.7 12.6 Plt Count 282 257 MPV 9.9 9.9 Immature Gran % (Auto) 0.3 0.3 Neut % (Auto) 78.1 H 60.5 Lymph % (Auto) 14.3 L 28.0 [place] % (Auto) 5.9 8.4 Eos % (Auto) 0.9 2.3 Baso % (Auto) 0.5 0.5 Lymph # (Auto) 1.1 L 1.7 [place] # (Auto) 0.5 0.5 Eos # (Auto) 0.1 0.1 Baso # (Auto) 0.0 0.0 Abs Immat Gran (auto) 0.02 0.02 Absolute Neuts (auto) 5.9 3.7 Absolute Nucleated RBC 0.000 0.000 Nucleated RBC % (auto) 0.0 0.0 Sodium 140 142 Potassium 4.9 4.5 Chloride 104 107 Carbon Dioxide 27 29 Anion Gap 14 11 L BUN 14 17 H Creatinine 0.83 0.83 Estim Creat Clear Calc 44.6 44.1 Estimated GFR > 60 > 60 Random Glucose 104 99 Estimat Average Glucose 111 Hemoglobin A1c % 5.5 Calcium 9.8 9.7 Total Bilirubin 0.2 0.2 AST 23 20 ALT 26 24 Alkaline Phosphatase 159 H 139 H Total Protein 7.0 6.3 L Albumin 4.6 4.2 Triglycerides 109 Cholesterol 155 LDL Cholesterol, Calc 80 HDL Cholesterol 54 Urine Color Yellow Urine Appearance Clear Urine pH 6.5 Ur Specific [place] 1.010 Urine Protein Negative Urine Glucose (UA) Negative Urine Ketones Negative Urine Blood Negative Urine Nitrite Negative Ur Leukocyte Esterase Trace H Urine RBC 0-2 Urine WBC 0-5 Ur Squamous Epith Cells 3-5 Urine Bacteria None Seen Hyaline Casts 0-2 Salicylates < 5.0 L Urine Opiates Screen Not Detected Ur Buprenorphine Scrn Not Detected Ur Oxycodone Screen Not Detected Urine Methadone Screen Not Detected Urine Fentanyl Screen Not Detected Acetaminophen < 3 Ur Barbiturates Screen Not Detected Ur Phencyclidine Scrn Not Detected Ur Amphetamines Screen Not Detected U Benzodiazepines Scrn POSITIVE H Urine Cocaine Screen Not Detected U Marijuana (THC) Screen Not Detected Ethyl Alcohol < 10 Meds/Allergies Meds Home Medications Medication Instructions Recorded Confirmed Type famotidine 40 mg tablet 40 mg PO DAILY 11/03/24 10/21/25 History amlodipine 5 mg tablet 5 mg PO DAILY 10/21/25 10/21/25 History bupropion HCl 150 mg tablet,12 hr 150 mg PO BID 10/21/25 10/21/25 History sustained-release diazepam 5 mg tablet 2.5 - 5 mg PO DAILY PRN anxiety 10/21/25 10/21/25 History diazepam 5 mg tablet 5 mg PO BEDTIME 10/21/25 10/21/25 History estradiol 10 mcg vaginal tablet 10 mcg vaginal 2XW 10/21/25 10/21/25 History (Yuvafem) quetiapine 25 mg tablet 25 mg PO DAILY PRN Anxiety 10/21/25 10/21/25 History quetiapine 25 mg tablet 75 mg PO BEDTIME 10/21/25 10/21/25 History Allergies Allergies Allergy/AdvReac Type Severity Reaction Status Date / Time No Known Allergies Allergy Verified 10/20/25 14:10 Mental Status Exam Mental Status Exam Narrative: Pleasant. Engaged. Casually dressed presented. Decreased self- care.Obviously depressed with psychomotor retardation. Hopeless and thoughts of but no active SI . No psychosis. No HI. No agitation. Insight and judgment good Assessment & Plan Assessment & Plan (1) Major depressive disorder, recurrent severe without psychotic features: Status: Acute Code(s): F33.2 - Major depressive disorder, recurrent severe without psychotic features (2) ZAC (generalized anxiety disorder): Status: Acute Code(s): F41.1 - Generalized anxiety disorder (3) ADHD (attention deficit hyperactivity disorder): Status: Acute Code(s): F90.9 - Attention-deficit hyperactivity disorder, unspecified type Plan 74-year-old female, with established history of major depressive disorder who has responded to ECT in the past, being admitted for plan of reinitiate an ECT (hopefully on Thursday10/23/2025 and awaiting clearance for same) , presenting with severe depression, anhedonia, poor appetite, weight loss, decreased self- care, hopelessness . Admitted on a voluntary basis. Continue preadmission medications. Awaiting ECT clearance hopefully for Thursday10/23/2025. Patient educated on: diagnosis and therapeutic strategies Informed Consent: understands Reason for continued inpatient stay Substantial Risk for: inability to function Statement Statement: I have reviewed the history and physical and performed a pertinent examination on my patient. No changes have occurred unless specified. If the History and Physical was not performed prior to admission, the Hospitalist's service will be consulted for completing the admission physical. Time Spent With Patient Time: Total time managing care of this patient today ____ minutes. Dictated By: Adrian Beckman MD Signed By: <Electronically signed by Adrian Beckman MD> 10/21/25 1531 DD/ 8 TD/TT: 10/21/25918 Power System Electrical Engineer: Hospital course Patient patient was admitted by Dr. Beckman on a conditional voluntary to the 3rd floor adult psychiatric unit. Patient was withdrawn depressed irritable and it appeared she felt out of sorts on the unit and felt she had done better on the geriatric unit which she had been on previously. Valium was held prior to ECT patient was treated bifrontally on 10 23 had an adequate seizure no significant postop side effects. The patient mood remained depressed and anxious but felt she would do better at home denied suicidal plan or intent felt uncomfortable in the inpatient setting. Outpatient ECT scheduled and follow-up outpatient appointment scheduled with this senior underwriter. Patient has a history of treatment resistant depression atypical bipolar question and plan to start lithium after patient completes course of ECT to stabilize mood Status at Discharge Functional status at discharge: independent ambulation Overall status at discharge: patient is not back to baseline Time Spent with Patient Time attestation: Total time managing care of this patient today _30___ minutes. Discharge Plan Discharge Anticipated Discharge Date/Time: 10/23/25 13:00 Patient Disposition: Home, Self-Care Discharge Diagnosis: recurrent depression ? bipolar nos zac Referrals: Tami Francis MD [Primary Care Provider, Medical] - 1 Week Referral Note: 10-23-25 Please call your primary care provider to schedule a follow up appt within 7-10 days of discharge. Discharge Medications: New quetiapine 100 mg Tablet 100 mg PO BEDTIME 30 Days Qty: 30 1RF Continued armodafinil 150 mg tablet 75 mg PO QAM Qty: 15 2RF amlodipine 5 mg tablet 5 mg PO DAILY diazepam 5 mg tablet 5 mg PO BEDTIME estradiol [Yuvafem] 10 mcg tablet 10 mcg vaginal 2XW quetiapine 25 mg tablet 25 mg PO DAILY PRN (Reason: Anxiety) diazepam 5 mg tablet 2.5 - 5 mg PO DAILY PRN (Reason: anxiety) Rx Instructions: 1 bedtime 1/2 -1 daily prn severe anxiety famotidine 40 mg tablet 40 mg PO DAILY Changed bupropion HCl 150 mg tablet sustained-release 12 hr 150 mg PO DAILY 30 Days Qty: 30 1RF Discontinued quetiapine 25 mg tablet 75 mg PO BEDTIME Discharge Orders: Discharge Order (Routine); Ordered 10/23/25 Ordered By: Yovany Shearer Diet: Advance to usual diet Activity on Discharge: As tolerated Stand Alone Forms: Patient Portal Discharge page, Community Support Print Language: Bhutanese Activity Restrictions/Additional Instructions: you have ect scheduled for 10/25 and 10/27 call 10/26 [id number] and we can discuss ect schedule Care Plan Goals: stabilize mood no si be more organized in thought Health Concerns: depression hopelessness hypertension re=cent thyroid radiactive ablation gerd Plan of Treatment: ect wellbutrin seroquel armodafanil Assessment: future oriented no si no psychosis some confusion post ect Discharge Date/Time: 10/23/25 13:40
== END 2025-10-23 13:40 | disposition home or self-care (01) | DRG 885 ==
LOC: HO.ED 14:25 → HO.PADLT16 19:32
PROVIDERS: Physician Assistant Medical; Admitting Provider Psychiatry & Neurology Psychiatry; Emergency Provider Emergency Medicine; PCP Internal Medicine; Visit Provider Psychiatry & Neurology Psychiatry
PROC: GZB4ZZZ Other Electroconvulsive Therapy (ICD-10-PCS; CPT 90870; principal; 2025-10-23 08:00)
DX: F33.2 Major depressive disorder, recurrent severe without psychotic features (principal); R45.851 Suicidal ideations; F41.1 Generalized anxiety disorder; F90.9 Attention-deficit hyperactivity disorder, unspecified type; Z79.899 Other long term (current) drug therapy
CPT/HCPCS: 36415; 80053; 80061; 80143; 80179; 80307; 81001; 83036; 84443; 85025; 87086; 90870; 93005; 99285; J0330; J2405; S9485

== ENCOUNTER → 2025-10-20 14:09 | Outpatient (BNV) | payer MEDICARE, SELFPAY | PROVIDERS: Admitting Provider Psychiatry & Neurology Psychiatry; Emergency Provider Emergency Medicine; PCP Internal Medicine; Visit Provider Internal Medicine | DX: Z13.6 Encounter for screening for cardiovascular disorders (principal) | CPT/HCPCS: 93010 ==

== ENCOUNTER → 2025-10-20 19:04 | Outpatient (BNV) | payer MEDICARE, SELFPAY | PROVIDERS: Admitting Provider Psychiatry & Neurology Psychiatry; Emergency Provider Emergency Medicine; PCP Internal Medicine; Visit Provider Psychiatry & Neurology Psychiatry | DX: F33.2 Major depressive disorder, recurrent severe without psychotic features (principal); F41.1 Generalized anxiety disorder; F90.9 Attention-deficit hyperactivity disorder, unspecified type | CPT/HCPCS: 90792 ==

== ENCOUNTER → 2025-10-20 19:04 | Outpatient (BNV) | payer MEDICARE, SELFPAY | PROVIDERS: Admitting Provider Psychiatry & Neurology Psychiatry; Emergency Provider Emergency Medicine; PCP Internal Medicine; Visit Provider Psychiatry & Neurology Psychiatry | DX: F33.2 Major depressive disorder, recurrent severe without psychotic features (principal); F41.1 Generalized anxiety disorder; F90.9 Attention-deficit hyperactivity disorder, unspecified type | CPT/HCPCS: 90870; 99239 ==

== ENCOUNTER → 2025-10-20 19:04 | Outpatient (BNV) | payer MEDICARE, SELFPAY | PROVIDERS: Admitting Provider Psychiatry & Neurology Psychiatry; Emergency Provider Emergency Medicine; PCP Internal Medicine; Visit Provider Nurse Practitioner Acute Care | DX: I10 Essential (primary) hypertension (principal) | CPT/HCPCS: 99223 ==

== ENCOUNTER 2025-10-24 16:37 | Outpatient (AMB) | payer MEDICARE, SELFPAY ==
--- NOTE | 2025-10-24 17:28 | A.OFFPSYCH_ITS ---
Intake Intake Visit Reasons: Depression Allergies No Known Allergies Allergy (Verified 11/03/25 11:58) HPI- Psychiatric Chief Complaint: Depression HPI Narrative: The patient (or their proxy) verbally consented to this video encounter. This video encounter was conducted via secure, interactive video conferencing. The patient's identity was established before proceeding with the video encounter by confirmation of their name and an additional identifier. Reason for Visit: Follow-up for depression management and ECT scheduling. Subjective: The patient is experiencing a depressive episode and is undergoing electroconvulsive therapy (ECT) as part of their treatment plan. The patient reported feeling anxious when attending a board meeting, which was later canceled, leading them to return home and stay in bed. The patient is currently on 100 mg of Seroquel at bedtime for its mood-stabilizing properties. The patient notes difficulty with motivation and initiating tasks, reporting that everything feels like a struggle. The patient is not currently taking lithium due to its potential to increase confusion when combined with ECT. Diazepam is also withheld the night before ECT as it can interfere with the treatment. The patient has missed a recent therapy appointment, attributing it to general disorganization rather than embarrassment. The patient's partner, is providing significant support at home. Past Psychiatric History: -Pt sees Dr. Shearer in OP setting . Last ECT June 2025. Last inpatient episode 2022 as per records. Reports 1st psychiatric admission in her 40s approximately. First ECT sessions approximately 10 years ago. Also has a therapist. Denies any history of suicide attempts or psychosis. Mental Status Exam Mental Status Exam Narrative: Pt casually dressed sad hopeless helpless self denigrating anhedonic thoughts at times might be better off denies active si no reyes insight impaired Telehealth Telehealth Telehealth Platform: Doximity (Patient consented to use of video scribe) Location of provider rendering services: practice address Location of patient: address on file Patient Identification confirmed using: Name, : Yes Telehealth method: video Patient verbally consented to treatment: Yes Patient verbally consented to billing insurance company: Yes Patient informed of any privacy concerns related to visit: Yes Minutes spent on Phone/Video with Pt.: 19 Assessment and Plan Assessment & Plan (1) Major depressive disorder, recurrent severe without psychotic features: Status: Acute Code(s): F33.2 - Major depressive disorder, recurrent severe without psychotic features Plan Assessment: The patient is experiencing a depressive episode, currently receiving ECT. The patient is on Seroquel for mood stabilization but is not taking lithium due to past complications with ECT. The patient's depressive symptoms include anxiety, decreased motivation, and social withdrawal, but they are not at their worst historical levels. There is a plan to continue with ECT treatments and monitor responses closely. Plan: 1. Continue ECT sessions, scheduled for tomorrow and another on Thursday, with monitoring of the patient's response to determine if further sessions are needed. 2. Maintain current dose of Seroquel at 100 mg at bedtime. 3. Withhold lithium until ECT sessions are completed. 4. Avoid diazepam the night before ECT sessions to prevent interference with treatment efficacy. 5. Encourage the patient to engage in daily activities to the extent possible and avoid excessive bed rest. 6. Schedule follow-up appointments as needed to monitor progress and adjust the treatment plan. 7. Recommend patient communicates with their therapist to reestablish missed appointments and support ongoing therapy. Counseling and coordination of Care Medication management counseling: Effectiveness, Side effects and Dosing range Details-Med Mgmt counseling: ect Diagnosis and Prognosis Counseling: Impact of diagnosis on life functions, Problematic behaviors secondary to diagnosis and Adequacy of current interventions Details: I spent [24] minutes reviewing the record, seeing the patient and documenting in the medical record. Counseling provided to the patient/caregiver as outlined below. Addressed patient/caregiver concerns regarding current medication regime including effective adherence. Addressed patient/caregiver concerns regarding diagnosis and prognosis including accuracy of diagnosis, prognosis over time, impact of diagnosis. Addressed patient/caregiver concerns regarding impact of recent stressors. [facility] Medical History Depression Hypothyroidism ZAC (generalized anxiety disorder) Hypertension ADHD (attention deficit hyperactivity disorder) Surgical History H/O thumb surgery H/O cone biopsy of cervix Family History Other No pertinent family history Social History Household Members: Spouse Household Members Other:: And two cats. Housing: House Do you presently have visiting nurse or other home services: No Alcohol intake: never Patient Tobacco Use Status: Never used Tobacco Tobacco use type: Cigarette Years Smoked: 20 Smoked in Last 30 Days: No e-Cigarette/Vaping Use: Never Used Second Hand Smoke Exposure: No Use of substances other than those prescribed or required for medical reasons: Yes Substance Use Type: Marijuana Substance Use Frequency: Occasionally Last Used Substance: Weeks (ago) Currently Displaying Signs/Symptoms of Drug Intoxication Withdrawal: No Any prior treatment program specific to substance use: No Have you been hit, kicked, punched, or otherwise hurt by someone within the past year? If so, by whom?: No Do you feel safe in your current relationship?: Yes Is there a partner from a previous relationship who is making you feel unsafe now?: No Are you made to feel afraid or neglected: No Advance Directives: No Advance Directives Information Provided: Yes Do you have thoughts of harming others: None Do you have a plan to hurt others: No Plan Recently lost weight without trying: Unsure How much weight loss: Unsure Eating poorly because of decreased appetite: Yes Nutrition screen score: 5 Nutrition Risks: No Nutritional Risk Patient : No : No Poor oral hygiene: No service: No Sexual orientation: Straight/Heterosexual Social History: The patient is 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. Both retired. Occasional marijuana use. Substance History: Denies Trauma History: NA Coding Level of Care Code Tele Est Pt Level 4 (91358) Diagnoses Major depressive disorder, recurrent severe without psychotic features F33.2
--- OUTSIDE RECORDS SUMMARY | 2025-10-24 23:00 | XMS_ITS | Clinical Summary ---
Author Organization [facility] [address] [facility] Address [address] [place] [address] Phone Care Team Providers Care [employer] Retailer Sales Consultant Name Role Phone Tami Francis MD Primary Care Provider [phone] Allergies Active Allergy Reactions Criticality Noted Date [...] Maintenance Results * COLONOSCOPY Anesthesia - MAC; [facility] ENDOSCOPY (06/20/2025 3:30 PM EDT) [...] segment. Narrative 06/20/2025 3:31 PM EDT [facility] GI Patient Name: Miriam Dennison Procedure Date: 06/20/2025 3:10 PM Date of : 1950 Age: 74 Gender: Female Note Status: Finalized Attending MD: Ron Adam DO, [id number] Procedure Date No Time: 06/20/2025 Procedure: Colonoscopy [...] the physician, the nurse, the anesthesiologist, the proof inspector and the solids control technician in the pre-procedure area in the [...] retroflexion views. Procedure Code(s): --- Professional --- 45401, Colonoscopy, flexible; with removal of tumor(s), polyp(s), or other lesion(s) by snare technique Diagnosis Code(s): --- Professional --- K64.9, Unspecified hemorrhoids D12.5, Benign neoplasm of sigmoid colon D12.4, Benign neoplasm of descending colon K57.30, Diverticulosis of large intestine without perforation or abscess without bleeding CPT copyright 2020 [employer]. All rights reserved. The codes documented in this report are preliminary and upon clearing inspector review may be revised to meet current compliance requirements. RON Adam DO 06/20/2025 3:31:11 PM This report has been signed electronically.Ron Adam DO Number of Addenda: 0 Note Initiated On: 06/20/2025 3:10 PM Scope Withdrawal Time: 0 hours 8 minutes 20 seconds Scope In: 3:17:07 PM Scope Out: 3:29:30 PM Endoscopy Department at [facility] - [address] [place] [phone] Procedure Note Ron Adam DO - 06/20/2025 [facility] GI Patient Name: Miriam Dennison Procedure Date: 06/20/2025 3:10 PM Date of : 1950 Age: 74 Gender: Female Note Status: Finalized Attending MD: Ron Adam DO, [id number] Procedure Date No Time: 06/20/2025 Procedure: Colonoscopy [...] the physician, the nurse, the anesthesiologist, the proof inspector and thetechnician in the pre-procedure area in [...] retroflexion views. Procedure Code(s): --- Professional --- 44982, Colonoscopy, flexible; with removal of tumor(s), polyp(s), or other lesion(s) by snare technique Diagnosis Code(s): --- Professional --- K64.9, Unspecified hemorrhoids D12.5, Benign neoplasm of sigmoid colon D12.4, Benign neoplasm of descending colon K57.30, Diverticulosis of large intestine without perforation or abscess without bleeding CPT copyright 2020 [employer]. All rights reserved. The codes documented in this report are preliminary and upon clearing inspector reviewmay be revised to meet current compliance requirements. RON Adam DO 06/20/2025 3:31:11 PM This report has been signed electronically.Ron Adam DO Number of Addenda: 0 Note Initiated On: 06/20/2025 3:10 PM Scope Withdrawal Time: 0 hours 8 minutes 20 seconds Scope In: 3:17:07 PM Scope Out: 3:29:30 PM Endoscopy Department at [facility] - [address] [place] [phone] IMPRESSION: - Hemorrhoids found on perianal exam. [...] Relevant to Health Maintenance Insurance MEDICARE [facility] Care Teams [employer] Retailer Sales Consultant Relationship Specialty Start Date End Date Tami Francis MD [address] [place] [address] PCP - General Internal Medicine 03/07/25
--- OUTSIDE RECORDS SUMMARY | 2025-10-24 23:00 | XMS_ITS | Clinical Summary ---
Author Organization [facility] Address [address] [place] [address] Care Team Providers Care Tool Dispatcher Name Role Phone Tami Francis MD Primary Care Provider [phone] Allergies No known active allergies Medications amLODIPine [...] patient's age to complete this topic Insurance [facility] Medicare [facility] Medicare Care Teams Tool Dispatcher Relationship Specialty Start Date End Date Tami Francis MD [address] [place] [address] PCP - General Internal Medicine 06/13/21
--- OUTSIDE RECORDS SUMMARY | 2025-10-24 23:00 | XMS_ITS | Clinical Summary ---
Author Organization [facility] Address [address] [place] [address] Care Team Providers Care Surface Room Shop Optician Name Role Phone Pcp, No Primary Care [...] Not on file Insurance MEDICARE PART A&B [facility] MCR SUPPLEMENT Care Teams Surface Room Shop Optician Relationship Specialty [place] [id number] PCP - General 07/31/19
--- OUTSIDE RECORDS SUMMARY | 2025-10-24 23:01 | XMS_ITS | Clinical Summary ---
Author Organization [facility] Address [address] [place] [address] Care Team Providers Care Aboriginal Home School Liaison Officer Name Role Phone Tami Francis MD Primary Care Provider [phone] Allergies Active Allergy Reactions Criticality Noted Date [...] capsule by mouth daily. Active nystatin (MYCOSTATIN) 951589 UNIT/ML suspensionIndicat ions:Throat discomfort Take 5 mL [...] topic Insurance MEDICARE PART A & B [facility] MEDICARE PART A & B [facility] OUT [facility] Advance Directives * Full Code (Latest Code Status on File) Date Activated Date Inactivated Comments 01/23/2023 6:34 PM Care Teams Aboriginal Home School Liaison Officer Relationship Specialty Start Date End Date Tami Francis MD [address] [place] [address] PCP - General Internal Medicine 01/23/23
== END 2025-10-24 16:37 | disposition home or self-care (01) ==
LOC: HO.HOP 16:37
PROVIDERS: PCP Internal Medicine; Visit Provider Psychiatry & Neurology Psychiatry
DX: F33.2 Major depressive disorder, recurrent severe without psychotic features (principal)
CPT/HCPCS: 99214

== ENCOUNTER 2025-10-25 05:50 | Day surgery (SDC) | payer MEDICARE, SELFPAY ==
--- OUTSIDE RECORDS SUMMARY | 2025-10-23 23:37 | XMS_ITS | Clinical Summary ---
Author Organization [facility] Address [address] [place] [address] Care Team Providers Care Dukey Rider Name Role Phone Pcp, No Primary Care [...] Not on file Insurance MEDICARE PART A&B [facility] MCR SUPPLEMENT Care Teams Dukey Rider Relationship Specialty [place] [id number] PCP - General 07/31/19
--- OUTSIDE RECORDS SUMMARY | 2025-10-23 23:38 | XMS_ITS ---
[...] retroflexion views. Procedure Code(s): --- Professional --- 58483, Colonoscopy, flexible; with removal of tumor(s), polyp(s), or other lesion(s) by snare technique Diagnosis Code(s): --- Professional --- K64.9, Unspecified hemorrhoids D12.5, Benign neoplasm of sigmoid colon D12.4, Benign neoplasm of descending colon K57.30, Diverticulosis of large intestine without perforation or abscess without bleeding CPT copyright 2020 [employer]. All rights reserved. The codes documented in this report are preliminary and upon product architect review may be revised to meet current compliance requirements. RON Adam DO 06/20/2025 3:31:11 PM This report has been signed electronically.Ron Adam DO Number of Addenda: 0 Note Initiated On: 06/20/2025 3:10 PM Scope Withdrawal Time: 0 hours 8 minutes 20 seconds Scope In: 3:17:07 PM Scope Out: 3:29:30 PM Endoscopy Department at [facility] - [address] [place] [phone] Procedure Note Ron Adam DO - 06/20/2025 [facility] GI Patient Name: Miriam Dennison Procedure Date: 06/20/2025 3:10 PM Date of : 1950 Age: 74 Gender: Female Note Status: Finalized Attending MD: Ron Adam DO, [id number] Procedure Date No Time: 06/20/2025 Procedure: Colonoscopy [...] the physician, the nurse, the anesthesiologist, the fruit distributor and thetechnician in the pre-procedure area in [...] retroflexion views. Procedure Code(s): --- Professional --- 37754, Colonoscopy, flexible; with removal of tumor(s), polyp(s), or other lesion(s) by snare technique Diagnosis Code(s): --- Professional --- K64.9, Unspecified hemorrhoids D12.5, Benign neoplasm of sigmoid colon D12.4, Benign neoplasm of descending colon K57.30, Diverticulosis of large intestine without perforation or abscess without bleeding CPT copyright 2020 [employer]. All rights reserved. The codes documented in this report are preliminary and upon product architect reviewmay be revised to meet current compliance requirements. RON Adam DO 06/20/2025 3:31:11 PM This report has been signed electronically.Ron Adam DO Number of Addenda: 0 Note Initiated On: 06/20/2025 3:10 PM Scope Withdrawal Time: 0 hours 8 minutes 20 seconds Scope In: 3:17:07 PM Scope Out: 3:29:30 PM Endoscopy Department at [facility] - [address] [place] [phone] IMPRESSION: - Hemorrhoids found on perianal exam. [...] Recently Relevant to Health Maintenance Insurance MEDICARE [facility] Care Teams Legal Manager Relationship Specialty Start Date End Date Tami Francis MD [address] [place] [address] PCP - General Internal Medicine 03/07/25
--- OUTSIDE RECORDS SUMMARY | 2025-10-23 23:38 | XMS_ITS | Clinical Summary ---
Author Organization [facility] Address [address] [place] [address] Care Team Providers Care Liquid Waste Treatment Plant Operator Name Role Phone Tami Francis MD [...] capsule by mouth daily. Active nystatin (MYCOSTATIN) 973040 UNIT/ML suspensionIndicat ions:Throat discomfort Take 5 mL [...] 06/16/2025 11/27/2016, 07/27/2015 COVID-19 Vaccine (1 - 2024-2 6 season) 2025 DTaP/Tdap/Td Vaccines (2 - T d or Tdap) 11/30/2027 11/30/2017 Colonoscopy 06/20/2035 06/20/2025 Pneumococcal Vaccines 50+ Completed 2019, 11/27/2016 Hepatitis B Vaccines Aged Out No long er eligible based on patient's age to complete this topic Insurance MEDICARE PART A & B [facility] MEDICARE PART A & B [facility] OUT [facility] Advance Directives * Full Code (Latest Code Status on File) Date Activated Date Inactivated Comments 01/23/2023 6:34 PM Care Teams Liquid Waste Treatment Plant Operator Relationship Specialty Start Date End Date Tami Francis MD [address] [place] [address] PCP - General Internal Medicine 01/23/23
[2025-10-25 06:18] VITALS: BMI 43.3
[2025-10-25 06:23] VITALS: BP 140/76; PULSE 73; RESP 18; TEMP 36.3; O2SAT 94
--- NOTE | 2025-10-25 06:43 | P.CONAN_ITS ---
[facility] Active Problems Active Problems: All Active Problems Depression (Acute) Pre-op evaluation (Acute) Thyroid nodule (Acute) Major depressive disorder in partial remission (Acute) Delirium in remission (Acute) Major depressive disorder, recurrent, severe with psychotic features (Acute) Footdrop (Acute) Major depressive disorder, recurrent severe without psychotic features (Acute) Personality disorder (Acute) Organic catatonia (Acute) Abnormal EKG (Acute) Odynophagia (Acute) Paranoia (Acute) Dysphagia (Acute) Serotonin syndrome (Acute) Ataxia (Acute) Tremors of nervous system (Acute) Major depression in full remission (Acute) Memory deficit (Acute) ADHD (attention deficit hyperactivity disorder) (Acute) ZAC (generalized anxiety disorder) (Acute) Depression (Acute) Acute bacterial conjunctivitis of both eyes (Acute) Hypercalcemia (Acute) Hypothyroidism (Acute) Leukocytosis (Acute) Hypertension (Chronic) Past Medical History Medical History (Updated 10/24/25 @ 00:01 by Juliana German) Depression Hypothyroidism ZAC (generalized anxiety disorder) Hypertension ADHD (attention deficit hyperactivity disorder) Family History Family History Other No pertinent family history Family history of problems with anesthesia: No Surgical History Surgical History H/O thumb surgery H/O cone biopsy of cervix History of Problems with Anesthesia: No Social History Social History Household Members: Spouse Household Members Other:: And two cats. Housing: House Do you presently have visiting nurse or other home services: No Alcohol intake: never Patient Tobacco Use Status: Former Tobacco user Tobacco use type: Cigarette Years Smoked: 20 e-Cigarette/Vaping Use: Never Used Second Hand Smoke Exposure: No Substance Use Type: Marijuana and Other Advance Directives: No Advance Directives Information Provided: Yes service: No Sexual orientation: Straight/Heterosexual Meds Allergies Allergy/AdvReac Type Severity Reaction Status Date / Time No Known Allergies Allergy Verified 10/20/25 14:10 Active Medications: Current Medications Lactated Ringer's (Lr) 1,000 mls @ 50 mls/hr IVCONT .Q20H NORBERTO Naloxone HCl (Naloxone Hcl 0.4 Mg/Ml Vial) 0.04 mg IVPUSH Q5M PRN PRN Reason: Excessive sedation or RR < 8 Home Medications ?Medication ?Instructions ?Recorded ?Confirmed ?Last Taken ?Type famotidine 40 mg tablet 40 mg PO DAILY 11/03/2405/10 Unknown History amlodipine 5 mg tablet 5 mg PO DAILY 10/21/2510/21 Unknown History diazepam 5 mg tablet 2.5 - 5 mg PO DAILY PRN anxi ety 10/21/25 10/21/25 Unknown History diazepam 5 mg tablet 5 mg PO BEDTIME 10/21/2505/10 Unknown History estradiol 10 mcg vaginal tablet 10 mcg vaginal 2XW 05/1010/21/25 Unknown History (Yuvafem) quetiapine 25 mg tablet 25 mg PO DAILY PRN Anxiety 1 12/22/24 10/21/25 10/20/25 23:00 History Exam Height,Weight and Vital Signs: Height 5 ft 1 in Weight 104 kg Last Vital Signs Temp 97.4 F 10/25/25 06:23 Pulse 73 10/25/25 06:23 Resp 18 10/25/25 06:23 BP 140/76 H 10/25/25 06:23 Pulse Ox 94 10/25/25 06:23 O2 Del Method Room Air 10/25/25 06:23 Airway Mallampati Class: II TM Dist: >3cm Neck ROM: Full Heart: rrr Lungs: cta Assessment and Plan Assessment Anesthesia Assessment: Anesthesia Plan Discussed and Chart Reviewed Final Anesthetic Review Family History of Problems with Anesthesia: No History of Problems with Anesthesia: No NPO: Yes ASA Class: III Final Preanesthetic Review: No Changes in Pt Med Stat, Meds/Allgs Chart Reviewed and Consent Obtained/Reviewed Patient Risk: Intermediate Procedure Risk: Intermediate Anesthetic Plan Anesthetic Plan: GA Disposition: Standard PACU
--- NOTE | 2025-10-25 07:05 | MHC.SHP ---
Pre-Procedural Eval Section A - 24 Hr Update-Section A only Date of Service: 10/25/25 The patient is an INPATIENT: No Section B - Complete if H&P > 30 days Chief Complaint: depression Details of Present Illness: recurrent depression Allergies: Allergies Allergy/AdvReac Type Severity Reaction Status Date / Time No Known Allergies Allergy Verified 10/20/25 14:10 Review of Systems Sugical H&P ROS: Negative: Constitution Exam Surgical H&P Exam: Normal: HEENT, Normal: Extremities and Normal: Neurological Plan Diagnosis/Plan: Unchanged I have reviewed the history and physical and performed a pertinent physical examination on my patient. No changes have occurred unless specified. Time Spent With Patient Time: Total time managing care of this patient today ____ minutes.
--- NOTE | 2025-10-25 07:06 | HO.ECTPROC ---
ECT Procedure Note Diagnosis/Treatment Date of Service: 10/25/25 Current Treatment Number: 2 Interval Clinical Notes: pt tx bf tx had extended lethargy confusion post ect Time: Total time managing care of this patient today __30__ minutes. ECT Settings Device: THYMATRON DGx Electrode Placement: Bifrontal Energy Percent: 100 Seizure Duration By EEG (in seconds): 36 Medications Administration General Anesthetic: Methohexital (100) Muscle Relaxant: Succinylcholine (100) Ancillary Medications Miscillaneous Medications: Propofol Treatment Recommendations Notes: dec brevital to 80 try versed 1 mg next tx Pt Tolerated Procedure w/o Issue: No
[2025-10-25 07:22] VITALS: BP 117/58; PULSE 70; RESP 12; TEMP 36.2; O2SAT 98
[2025-10-25 07:27] VITALS: BP 115/58; PULSE 68; RESP 17; O2SAT 97
[2025-10-25 07:32] VITALS: BP 120/56; PULSE 68; RESP 18; O2SAT 98
[2025-10-25 07:37] VITALS: BP 122/66; PULSE 67; RESP 19; O2SAT 98
[2025-10-25 07:52] VITALS: BP 141/75; PULSE 75; RESP 15; TEMP 36.6; O2SAT 98
--- NOTE | 2025-10-25 08:36 | HO.INF ---
PATIENT STATES NOT FEELING GOOD. PATIENT REFUSES OFFER OF FOOD AND/OR WATER AT THIS TIME. PATIENT'S INSISTANT THAT PATIENT HAVE A SCOPOLAMINE PATCH ON. PATIENT HAD A SCOPLAMINE PATCH DURING HER PROCEDURE BUT NOT ON ANY MORE. CHECKED 4 TIMES AND HORSE DOCTOR CHECKED WELL. ORDER OBTAINED FOR ANOTHER SCOPOLAMINE PATCH AD ONE PLACED ON AGAIN BY THE HORSE DOCTOR. PATIENT GIVEN A COOL CLOTH.
--- NOTE | 2025-10-25 09:02 | PC.NURSE ---
DR. LUI CAME OVER TO REASSESS PATIENT. PATIENT WAS MOVED TO A RECLINER WITH BLANKETS. PATIENT TO BE REASSESSED IN APPROX 1/[address] LUI.
--- NOTE | 2025-10-25 09:09 | PC.NURSE ---
BP 149/76, RA 96%, HR 74 AT 0910.
--- NOTE | 2025-10-25 10:17 | PC.NURSE ---
DR. FARR CAME AND ASSESSED PATIENT WELL DR LUI. SITTING; 96% RN, HR 75, BP 152/88, STANDING 98% RA, BP 148/82, HR 83. IT WAS DECIDED THAT THE PATIENT WILL GO HOME AND PT'S TO NOTIFY DR. FARR WITH ANY CHANGES.
== END 2025-10-25 10:21 | disposition home or self-care (01) ==
PROVIDERS: PCP Internal Medicine; Visit Provider Psychiatry & Neurology Psychiatry
PROC: (CPT 90870; principal; 2025-10-25 07:00)
DX: F33.2 Major depressive disorder, recurrent severe without psychotic features (principal); R41.0 Disorientation, unspecified; F41.1 Generalized anxiety disorder; F90.9 Attention-deficit hyperactivity disorder, unspecified type; I10 Essential (primary) hypertension; K21.9 Gastro-esophageal reflux disease without esophagitis; E03.9 Hypothyroidism, unspecified; Z79.899 Other long term (current) drug therapy; Z87.891 Personal history of nicotine dependence
CPT/HCPCS: 90870; J0330; J0690; J2704

== ENCOUNTER → 2025-10-25 05:50 | Outpatient (BNV) | payer MEDICARE, SELFPAY | PROVIDERS: PCP Internal Medicine; Visit Provider Psychiatry & Neurology Psychiatry | DX: F33.2 Major depressive disorder, recurrent severe without psychotic features (principal) | CPT/HCPCS: 90870 ==

== ENCOUNTER 2025-10-30 05:57 | Day surgery (SDC) | payer MEDICARE, SELFPAY ==
[2025-10-30] VITALS (9 sets, daily range): BP systolic 135–163; BP diastolic 67–82; PULSE 77–85; RESP 16–20; TEMP 36.4–36.8; O2SAT 95–99; BMI 19.6
[2025-10-30] MEDS: Lactated Ringers 1,000 ML 50 ML IVCONT (06:30)
--- NOTE | 2025-10-30 06:53 | HO.ANESPROP2 ---
[facility] Active Problems Active Problems: All Active Problems Depression (Acute) Pre-op evaluation (Acute) Thyroid nodule (Acute) Major depressive disorder in partial remission (Acute) Delirium in remission (Acute) Major depressive disorder, recurrent, severe with psychotic features (Acute) Footdrop (Acute) Major depressive disorder, recurrent severe without psychotic features (Acute) Personality disorder (Acute) Organic catatonia (Acute) Abnormal EKG (Acute) Odynophagia (Acute) Paranoia (Acute) Dysphagia (Acute) Serotonin syndrome (Acute) Ataxia (Acute) Tremors of nervous system (Acute) Major depression in full remission (Acute) Memory deficit (Acute) ADHD (attention deficit hyperactivity disorder) (Acute) ZAC (generalized anxiety disorder) (Acute) Depression (Acute) Acute bacterial conjunctivitis of both eyes (Acute) Hypercalcemia (Acute) Hypothyroidism (Acute) Leukocytosis (Acute) Hypertension (Chronic) Past Medical History Medical History (Updated 10/24/25 @ 00:01 by Juliana German) Depression Hypothyroidism ZAC (generalized anxiety disorder) Hypertension ADHD (attention deficit hyperactivity disorder) Family History Family History Other No pertinent family history Family history of problems with anesthesia: No Surgical History Surgical History H/O thumb surgery H/O cone biopsy of cervix History of Problems with Anesthesia: No Social History Social History Household Members: Spouse Household Members Other:: And two cats. Housing: House Do you presently have visiting nurse or other home services: No Alcohol intake: never Patient Tobacco Use Status: Former Tobacco user Tobacco use type: Cigarette Years Smoked: 20 e-Cigarette/Vaping Use: Never Used Second Hand Smoke Exposure: No Substance Use Type: Marijuana and Other Advance Directives: No Advance Directives Information Provided: Yes service: No Sexual orientation: Straight/Heterosexual Meds Allergies Allergy/AdvReac Type Severity Reaction Status Date / Time No Known Allergies Allergy Verified 10/20/25 14:10 Home Medications ?Medication ?Instructions ?Recorded ?Confirmed ?Last Taken ?Type famotidine 40 mg tablet 40 mg PO DAILY 11/03/24 10/21/25 Unknown History amlodipine 5 mg tablet 5 mg PO DAILY 10/21/25 10/21/25 Unknown History diazepam 5 mg tablet 2.5 - 5 mg PO DAILY PRN anxiety 10/21/25 10/21/25 Unknown History diazepam 5 mg tablet 5 mg PO BEDTIME 10/21/25 10/21/25 Unknown History estradiol 10 mcg vaginal tablet 10 mcg vaginal 2XW 10/21/25 10/21/25 Unknown History (Yuvafem) quetiapine 25 mg tablet 25 mg PO DAILY PRN Anxiety 10/21/25 10/21/25 10/20/25 23:00 History Exam Height,Weight and Vital Signs: Height 5 ft 1 in Weight 47.174 kg Last Vital Signs Temp 97.6 F 10/30/25 06:23 Pulse 79 10/30/25 06:23 Resp 16 10/30/25 06:23 Pulse Ox 97 10/30/25 06:23 O2 Del Method Room Air 10/30/25 06:23 Airway Mallampati Class: II TM Dist: >3cm Neck ROM: Full Heart: rrr Lungs: cta Assessment and Plan Assessment Anesthesia Assessment: Anesthesia Plan Discussed and Chart Reviewed Final Anesthetic Review Family History of Problems with Anesthesia: No History of Problems with Anesthesia: No NPO: Yes ASA Class: III Final Preanesthetic Review: No Changes in Pt Med Stat, Meds/Allgs Chart Reviewed and Consent Obtained/Reviewed Patient Risk: Intermediate Procedure Risk: Intermediate Anesthetic Plan Anesthetic Plan: GA Disposition: Standard PACU
--- NOTE | 2025-10-30 07:06 | MHC.SHP ---
Pre-Procedural Eval Section A - 24 Hr Update-Section A only Date of Service: 10/30/25 The patient is an INPATIENT: No Section B - Complete if H&P > 30 days Chief Complaint: depression Details of Present Illness: recurrent depression Allergies: Allergies Allergy/AdvReac Type Severity Reaction Status Date / Time No Known Allergies Allergy Verified 10/20/25 14:10 Review of Systems Sugical H&P ROS: Negative: Constitution Exam Surgical H&P Exam: Normal: HEENT, Normal: Extremities and Normal: Neurological Plan Diagnosis/Plan: Unchanged I have reviewed the history and physical and performed a pertinent physical examination on my patient. No changes have occurred unless specified. Time Spent With Patient Time: Total time managing care of this patient today ____ minutes.
--- NOTE | 2025-10-30 07:24 | HO.ECTPROC ---
ECT Procedure Note Diagnosis/Treatment Date of Service: 10/30/25 Diagnosis: Bipolar disorder and Major Depressive Disorder Previous ECT Date: 10/27/25 Current Treatment Number: 2 Treatment: Series Interval Clinical Notes: pt quite depressed hopeless helpless last tx over medicated tx with dec brevital 80 mg Time: Total time managing care of this patient today ____ minutes. ECT Settings Device: THYMATRON DGx Electrode Placement: Bifrontal Program/Pulse Width: 0.50 Energy Percent: 100 Seizure Duration By EEG (in seconds): 14 Medications Administration General Anesthetic: Methohexital (80) Muscle Relaxant: Succinylcholine (100) Ancillary Medications Miscillaneous Medications: Midazolam (1) Airway Management Airway Management: Bag Mask Ventilation Treatment Recommendations No Changes Recommended: No change Pt Tolerated Procedure w/o Issue: Yes
[2025-10-30] MEDS: Magnesium Hydrox/Alum Hydrox 30 ML ORAL.SUSP PO (09:23)
== END 2025-10-30 09:50 | disposition home or self-care (01) ==
PROVIDERS: PCP Internal Medicine; Visit Provider Psychiatry & Neurology Psychiatry
PROC: (CPT 90870; principal; 2025-10-30 07:30)
DX: F31.4 Bipolar disorder, current episode depressed, severe, without psychotic features (principal); F41.1 Generalized anxiety disorder; F90.9 Attention-deficit hyperactivity disorder, unspecified type; I10 Essential (primary) hypertension; E03.9 Hypothyroidism, unspecified; Z79.899 Other long term (current) drug therapy
CPT/HCPCS: 90870; J0330; J2250; J2405; J2704

== ENCOUNTER → 2025-10-30 05:57 | Outpatient (BNV) | payer MEDICARE, SELFPAY | PROVIDERS: PCP Internal Medicine; Visit Provider Psychiatry & Neurology Psychiatry | DX: F33.2 Major depressive disorder, recurrent severe without psychotic features (principal) | CPT/HCPCS: 90870 ==

== ENCOUNTER 2025-11-02 14:29 | Outpatient (AMB) | payer MEDICARE, SELFPAY ==
--- OUTSIDE RECORDS SUMMARY | 2025-07-03 09:20 | XMS_ITS ---
Author Organization [facility] Address [address] [address] Care Team Providers Care Funeral Location Manager Name Role Phone YASMANY ARCE M.D. Primary Care Provider Valorie Campos Unavailable [phone] REASON FOR VISIT HR MEDICARE PE (YELLOW FORM DONE) Encounters Encounter Location Date Provider Diagnosis [facility] [address] [address] 07/03/2025 Valorie Luu Plan Of Treatment Next Appt Details Provider Name:Valorie chahalbertram, 12/18/2025 01:20:00 PM, [address] [place] [address], [address], [place], [address], Progress Notes * DENTON DENNISONHDOB:[birth year] (75 yo F)Acc No.[id number]:07/03/2025 PROGRESS NOTES Patient: TEDDY FAIR Appointment Provider: Bertram Luu M.D. :1950 A ge:74 Y S ex:Female Date:07/03/2025 Address:[address] [place] [address], [facility] Pcp:YASMANY ARCE M.D. Subjective: * Chief Complaints: * 1 . HR MEDICARE PE (YELLOW FORM DONE). * Medical History: Objective: * Vitals: Assessment: Plan: * Treatment: * Images: Billing Information: * Visit Code: * Procedure Codes: * Electronic signature of Joyce Luu MD on 2025 at 06:36 PM EST Sign off status: Pending * Appointment Provider: Bertram Luu M.D. Date: 0 07/03/2025 Generated for Uri rogers/Charis/Yasmine on: 1 01/03/2025 06:36 PM EST
--- NOTE | 2025-11-02 14:10 | A.OFFPSYCH_ITS ---
Intake Intake Visit Reasons: depression Allergies No Known Allergies Allergy (Verified 11/03/25 11:58) Medication List - Last Reconciled 11/02/25 by Yovany Shearer MD amlodipine 5 mg PO DAILY armodafinil 150 mg PO QAM bupropion HCl SR 150 mg PO DAILY 30 days diazepam 2.5 - 5 mg PO DAILY PRN diazepam 5 mg PO BEDTIME estradiol (Yuvafem) 10 mcg vaginal 2XW famotidine 40 mg PO DAILY quetiapine 25 mg PO DAILY PRN quetiapine 100 mg PO BEDTIME 30 days HPI- Psychiatric Chief Complaint: depression Intake Note: The patient verbally consented to this video encounter. This video encounter was conducted via secure, interactive video conferencing. The patient's identity was established before proceeding with the video encounter by confirmation of their name HPI Narrative: Reason for Visit: Follow-up for depression management. Subjective: The patient, who appears to be middle-aged, is experiencing persistent clinical depression characterized by feelings of flatness and anxiety. They report being able to cognitively function and stay out of bed to some extent. The patient is currently taking armodafinil, and there has been a recent adjustment in dosage. The patient expresses dread regarding the upcoming holidays and reports difficulty in engaging with family, including avoiding communication with their son. The patient mentions waking up with negative thoughts, specifically starting the day by saying no. Family history includes the patient's son experiencing similar mood cycles in the past. The patient is reportedly having physical symptoms described as thick mucus in the throat and mouth, but her insists these are not real. The patient has not utilized recommended treatments like saline solutions or a neti pot. Current medications include armodafinil, and the patient has Seroquel PRN available for anxiety, agitation, and irritability. The social history indicates the patient is and relies on her for support.. The patient reports physical symptoms of mucus buildup in the throat and mouth areas, this is a chronic issue and triggers severe anxiety. Past Psychiatric History: -Pt sees Dr. Shearer in OP setting . has had ect. Last inpatient episode oct per records. Reports 1st psychiatric admission in her 40s approximately. First ECT sessions approximately 10 years ago. Also has a therapist. Denies any history of suicide attempts or psychosis. Mental Status Exam Mental Status Exam Patient Appearance: Well Grooomed Patient Orientation: Person, Place, Time and Situation Level of Consciousness: Awake and Alert Patient Behavior: Appropriate, Guarded, Cooperative and Good Eye Contact Mood Description: Depressed and Anxious Affect Description: Depressed and Apprehensive Ability to Follow Directions: Good Speech Pattern: Clear Memory Description: Intact Hallucinations: None Delusions: Not Present Thought Process: Intact Thought Content: positive for Intact Judgement: Fair Assessment and Plan Assessment & Plan (1) Bipolar II disorder major depressive with melancholic features: Status: Acute Code(s): F31.81 - Bipolar II disorder Plan Assessment: The patient presents with clinical depression, experiencing significant anxiety and psychosocial withdrawal. Physical complaints include mucus buildup likely associated with sinus congestion. The patient's symptoms are consistent with a depressive episode, and the plan includes ECT to address the depressive symptoms.Tx rul may benefit from mini series Plan: 1. Schedule electroconvulsive therapy (ECT) sessions for tomorrow and Thursday. 2. Reassess the patient's condition on Thursday or Thursday, and consider restarting lithium after the ECT mini-course. 3. Continue armodafinil at the adjusted dosage of 150 mg daily; ensure prescription issues are resolved with [facility] and [facility]. 4. Consider using Seroquel PRN for anxiety and agitation. 5. Encourage the use of saline solution or neti pot for reported mucus symptoms. 6. Provide a medication printout for verification by the patient's spouse. 7. Arrange follow-up appointment post-ECT to evaluate progress and make necessary adjustments to the treatment plan. Actions Medications: Changed From armodafinil 150 mg PO QAM To armodafinil 150 mg PO QAM 30 tabs 3RF 30 days Counseling and coordination of Care Details: I spent [] minutes reviewing the record, seeing the patient and documenting in the medical record. Counseling provided to the patient/caregiver as outlined below. Addressed patient/caregiver concerns regarding current medication regime including effective adherence. Addressed patient/caregiver concerns regarding diagnosis and prognosis including accuracy of diagnosis, prognosis over time, impact of diagnosis. Addressed patient/caregiver concerns regarding impact of recent stressors. [facility] Medical History Depression Hypothyroidism ZAC (generalized anxiety disorder) Hypertension ADHD (attention deficit hyperactivity disorder) Surgical History H/O thumb surgery H/O cone biopsy of cervix Family History Other No pertinent family history Social History Household Members: Spouse Household Members Other:: And two cats. 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. Both retired. Occasional marijuana use. Substance History: Denies Trauma History: NA Coding Level of Care Code Est Pt Level 4 (02386) Diagnoses Bipolar II disorder major depressive with melancholic features F31.81
--- OUTSIDE RECORDS SUMMARY | 2025-11-02 18:36 | XMS_ITS | Clinical Summary ---
Author Organization [facility] [address] [facility] Address [address] [place] [address] Phone Care Team Providers Care Associate Professor Physician Name Role Phone Tami Francis MD Primary Care Provider [phone] Allergies Active Allergy Reactions Criticality Noted Date [...] Maintenance Results * COLONOSCOPY Anesthesia - MAC; [facility] ENDOSCOPY (06/20/2025 3:30 [...] disease segment. Narrative 06/20/2025 3:[address] [facility] Patient Name: Miriam Dennison Procedure Date: 06/20/2025 3:10 PM Date of : 1950 Age: 74 Gender: Female Note Status: Finalized Attending MD: Ron Adam DO, [id number] Procedure Date No Time: 06/20/2025 Procedure: Colonoscopy [...] the physician, the nurse, the anesthesiologist, the cosmetician and the experimental technician in the pre-procedure area in the [...] retroflexion views. Procedure Code(s): --- Professional --- 23024, Colonoscopy, flexible; with removal of tumor(s), polyp(s), or other lesion(s) by snare technique Diagnosis Code(s): --- Professional --- K64.9, Unspecified hemorrhoids D12.5, Benign neoplasm of sigmoid colon D12.4, Benign neoplasm of descending colon K57.30, Diverticulosis of large intestine without perforation or abscess without bleeding CPT copyright 2020 [employer]. All rights reserved. The codes documented in this report are preliminary and upon interior plant caretaker review may be revised to meet current compliance requirements. RON Adam DO 06/20/2025 3:31:11 PM This report has been signed electronically.Ron Adam DO Number of Addenda: 0 Note Initiated On: 06/20/2025 3:10 PM Scope Withdrawal Time: 0 hours 8 minutes 20 seconds Scope In: 3:17:07 PM Scope Out: 3:29:30 PM Endoscopy Department at [facility] - [address] [place] [id number] Procedure Note Ron Adam DO - 06/20/2025 [facility] Patient Name: Miriam Dennison Procedure Date: 06/20/2025 3:10 PM Date of : 1950 Age: 74 Gender: Female Note Status: Finalized Attending MD: Ron Adam DO, [id number] Procedure Date No Time: 06/20/2025 Procedure: Colonoscopy [...] the physician, the nurse, the anesthesiologist, the cosmetician and thetechnician in the pre-procedure area in [...] retroflexion views. Procedure Code(s): --- Professional --- 59030, Colonoscopy, flexible; with removal of tumor(s), polyp(s), or other lesion(s) by snare technique Diagnosis Code(s): --- Professional --- K64.9, Unspecified hemorrhoids D12.5, Benign neoplasm of sigmoid colon D12.4, Benign neoplasm of descending colon K57.30, Diverticulosis of large intestine without perforation or abscess without bleeding CPT copyright 2020 [employer]. All rights reserved. The codes documented in this report are preliminary and upon interior plant caretaker reviewmay be revised to meet current compliance requirements. RON Adam DO 06/20/2025 3:31:11 PM This report has been signed electronically.Ron Adam DO Number of Addenda: 0 Note Initiated On: 06/20/2025 3:10 PM Scope Withdrawal Time: 0 hours 8 minutes 20 seconds Scope In: 3:17:07 PM Scope Out: 3:29:30 PM Endoscopy Department at [facility] - [address] [place] [id number] IMPRESSION: - Hemorrhoids found on perianal exam. [...] Recently Relevant to Health Maintenance Insurance MEDICARE [facility] Care Teams Associate Professor Physician Relationship Specialty Start Date End Date Tami Francis MD [address] [place] [address] PCP - General Internal Medicine 03/07/25
--- OUTSIDE RECORDS SUMMARY | 2025-11-02 18:36 | XMS_ITS | Clinical Summary ---
Author Organization [facility] Address [address] [place] [address] Care Team Providers Care Brancher Name Role Phone Pcp, No Primary Care [...] Not on file Insurance MEDICARE PART A&B [facility] MCR SUPPLEMENT Care Teams Brancher Relationship Specialty [place] [id number] PCP - General 07/31/19
--- OUTSIDE RECORDS SUMMARY | 2025-11-02 18:36 | XMS_ITS | Clinical Summary ---
Author Organization [facility] Address [address] [place] [id number] Care Team Providers Care Tassel Snipper Name Role Phone Tami Francis MD Primary Care Provider [phone] Allergies Active Allergy Reactions Criticality Noted Date [...] capsule by mouth daily. Active nystatin (MYCOSTATIN) 039864 UNIT/ML suspensionIndicat ions:Throat discomfort Take 5 mL [...] Planning 1950 Hepatitis C Virus Screening 1950 Zoster (Shingles) Vaccine (1 of 2) 1999 DXA Bone Density (Females,Ages 65 and older) 2014 RSV Vaccine 50 years and older and Patients (1 - 1-dose 75+ series) 2024 Influenza Vaccine 06/16/2025 11/27/2016, 07/27/2015 COVID-19 Vaccine (1 - season) 2025 DTaP/Tdap/Td Vaccines (2 - Td or Tdap) 11/30/2027 11/30/2017 Pneumococcal Vaccines 50+ Completed 2019, 11/27/2016 Colonoscopy Discontinued 06/20/2025 Hepatitis B Vaccines Aged Out No long er eligible based on patient's age to complete this topic Insurance MEDICARE PART A & B [facility] MEDICARE PART A & B [facility] Advance Directives * Full Code (Latest Code Status on File) Date Activated Date Inactivated Comments 01/23/2023 6:34 PM Care Teams Tassel Snipper Relationship Specialty Start Date End Date Tami Francis MD [address] [place] [address] PCP - General Internal Medicine 01/23/23
--- OUTSIDE RECORDS SUMMARY | 2025-11-02 18:36 | XMS_ITS | Patient Health Record ---
Author Organization [employer] [facility] Address [address] [address] Care Team Providers Care Differential Specialist Name Role Phone YASMANY ARCE M.D. Primary Care Provider Valorie Campos Unavailable [phone] Allergies Allergen (clinical drug ingredient) Drug/Non Drug [...] Active Multivitamins 1 ORAL daily; Duration: -3 [facility] 01/20/2012 Active amLODIPine Besylate 5MG 1 ORAL daily; Duration: -3 [facility] NORVASC 06/28/2012 Active Losartan Potassium 50 MG Oral; Duration: 90 Days Active Vitamin E 400 UNIT 1 capsule Orally Once a day; Duration: 30 day(s) Active Calcium-D 600MG 1 ORAL daily; Duration: -3 [facility] 01/20/2012 Active Armodafinil 150 MG TAKE ONE TABLET BY MOUTH EVERY MORNING Oral; Duration: 30 Days Active Vitamin C 500MG 2 grams ORAL daily [facility] 04/24/2014 Active diazePAM 5 MG Oral; Duration: [...] I disorder, most recent episode depressed (disorder) (36140724) Bipolar I disorder, most recent episode (or current) depressed, unspecified (296.50) Active confirmed Problem Carcinoma in situ of cervix uteri (29430430) 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 confirmed Problem Essential hypertension (72826392) Unspecified essential hypertension (401.9) Active confirmed Problem Menopausal symptom (44549653) Symptomatic menopausal or female climacteric states (627.2) Active confirmed Problem Disorder of bone and articular cartilage (disorder) (870002215) Disorder of bone and cartilage, unspecified (733.90) Active confirmed Problem Postmenopausal atrophic vaginitis (54890595) Postmenopausal atrophic vaginitis (N95.2) Active confirmed Problem Age-related osteoporosis (401353197) Age-related osteoporosis without current pathological fracture (M81.0) Active confirmed Problem History of dysplasia of cervix (295870008) Personal history of cervical dysplasia (Z87.410) Active confirmed Problem General examination of patient (104840636) Routine general medical examination at health care facility (V70.0) Active confirmed Diag Problem Gynecological examination normal (453947396027601) Routine gynecological examination (V72.31) Active confirmed Problem Screening for malignant neoplasm of colon (806505455) Special screening for malignant neoplasms, colon (V76.51) [...] Provider Name:Valorie montesinos, 12/18/2025 01:20:00 PM, [address], [address], [place], [address], Insurance Providers Payer Name Payer Address Payer Phone Subscriber Number Group Number Insured Name Patient Relationship to Insured Coverage Start Date Coverage End Date MEDICARE [address] MARY KANG [id number] TEDDY DENNISON Self - patient is the insured MEDEX [address] [place] [address] [phone] [id number] TEDDY DENNISON Self - patient is [...]
--- OUTSIDE RECORDS SUMMARY | 2025-11-02 18:36 | XMS_ITS | Clinical Summary ---
Author Organization [facility] Address [address] [place] [address] Care Team Providers Care Cook Restaurant Name Role Phone Tami Francis MD Primary Care Provider [phone] Allergies No known active allergies Medications amLODIPine [...] patient's age to complete this topic Insurance [facility] Medicare [facility] Medicare Care Teams Cook Restaurant Relationship Specialty Start Date End Date Tami Francis MD [address] [place] [address] PCP - General Internal Medicine 06/13/21
== END 2025-11-02 14:32 | disposition home or self-care (01) ==
LOC: HO.HOP 14:29
PROVIDERS: PCP Internal Medicine; Visit Provider Psychiatry & Neurology Psychiatry
DX: F31.81 Bipolar II disorder (principal)
CPT/HCPCS: 99214

== ENCOUNTER → 2025-11-02 14:29 | Outpatient (BNVA) | payer MEDICARE, SELFPAY | PROVIDERS: PCP Internal Medicine; Visit Provider Psychiatry & Neurology Psychiatry | DX: F31.81 Bipolar II disorder (principal) | CPT/HCPCS: 99212 ==

== ENCOUNTER 2025-11-03 07:59 | Day surgery (SDC) | payer MEDICARE, SELFPAY ==
[2025-11-03] VITALS (11 sets, daily range): BP systolic 123–165; BP diastolic 61–93; PULSE 73–79; RESP 16–22; TEMP 36.5–37; O2SAT 95–100; BMI 26.4
--- NOTE | 2025-11-03 08:26 | P.CONAN_ITS ---
HPI - Anesthesia Eval Consult details Narrative: ect [facility] Active Problems Active Problems: All Active Problems Bipolar II disorder major depressive with melancholic features (Acute) Depression (Acute) Pre-op evaluation (Acute) Thyroid nodule (Acute) Major depressive disorder in partial remission (Acute) Delirium in remission (Acute) Major depressive disorder, recurrent, severe with psychotic features (Acute) Footdrop (Acute) Major depressive disorder, recurrent severe without psychotic features (Acute) Personality disorder (Acute) Organic catatonia (Acute) Abnormal EKG (Acute) Odynophagia (Acute) Paranoia (Acute) Dysphagia (Acute) Serotonin syndrome (Acute) Ataxia (Acute) Tremors of nervous system (Acute) Major depression in full remission (Acute) Memory deficit (Acute) ADHD (attention deficit hyperactivity disorder) (Acute) ZAC (generalized anxiety disorder) (Acute) Depression (Acute) Acute bacterial conjunctivitis of both eyes (Acute) Hypercalcemia (Acute) Hypothyroidism (Acute) Leukocytosis (Acute) Hypertension (Chronic) Past Medical History Medical History Depression Hypothyroidism ZAC (generalized anxiety disorder) Hypertension ADHD (attention deficit hyperactivity disorder) Family History Family History Other No pertinent family history Family history of problems with anesthesia: No Surgical History Surgical History H/O thumb surgery H/O cone biopsy of cervix History of Problems with Anesthesia: No Social History Social History Household Members: Spouse Household Members Other:: And two cats. Housing: House Do you presently have visiting nurse or other home services: No Alcohol intake: never Patient Tobacco Use Status: Former Tobacco user Tobacco use type: Cigarette Years Smoked: 20 e-Cigarette/Vaping Use: Never Used Second Hand Smoke Exposure: No Substance Use Type: Marijuana and Other Advance Directives: No Advance Directives Information Provided: Yes service: No Sexual orientation: Straight/Heterosexual Meds Allergies Allergy/AdvReac Type Severity Reaction Status Date / Time No Known Allergies Allergy Verified 10/20/25 14:10 Active Medications: Current Medications Scopolamine (Scopolamine 1.5 Mg Patch.Td.3) 1.5 mg EAR-BEHIND ONCE ONE Stop: 11/03/25 08:25 Home Medications ?Medication ?Instructions ?Recorded ?Confirmed ?Last Taken ?Type famotidine 40 mg tablet 40 mg PO DAILY 11/03/2405/10 Unknown History amlodipine 5 mg tablet 5 mg PO DAILY 10/21/2510/21 Unknown History diazepam 5 mg tablet 2.5 - 5 mg PO DAILY PRN anxi ety 10/21/25 10/21/25 Unknown History diazepam 5 mg tablet 5 mg PO BEDTIME 10/21/2505/10 Unknown History estradiol 10 mcg vaginal tablet 10 mcg vaginal 2XW 05/1010/21/25 Unknown History (Yuvafem) quetiapine 25 mg tablet 25 mg PO DAILY PRN Anxiety 1 12/22/24 10/21/25 10/20/25 23:00 History Exam Height,Weight and Vital Signs: Height 5 ft 1 in Weight 63.503 kg Last Vital Signs Temp 98.6 F 11/03/25 08:16 Pulse 78 11/03/25 08:16 Resp 19 11/03/25 08:16 BP 156/80 H 11/03/25 08:16 Pulse Ox 96 11/03/25 08:16 O2 Del Method Room Air 11/03/25 08:16 Airway Mallampati Class: II TM Dist: >3cm Neck ROM: Limited Heart: rrr Lungs: cta Assessment and Plan Assessment Anesthesia Assessment: Anesthesia Plan Discussed and Chart Reviewed Final Anesthetic Review Family History of Problems with Anesthesia: No History of Problems with Anesthesia: No NPO: Yes ASA Class: III Final Preanesthetic Review: No Changes in Pt Med Stat, Meds/Allgs Chart Reviewed, Consent Obtained/Reviewed and Anes Risks/Benef Reviewed Patient Risk: Intermediate Procedure Risk: Low Anesthetic Plan Anesthetic Plan: GA and Agree w/ Assess. and Plan Disposition: Standard PACU
--- NOTE | 2025-11-03 08:46 | MHC.SHP ---
Pre-Procedural Eval Section A - 24 Hr Update-Section A only Date of Service: 11/03/25 The patient is an INPATIENT: No Changes since office visit: No Cold of Flu in the past 2 weeks, No New Medical Problems, No Changes in Medication and No Patient answered all questions The patient has been examined within 24 hours of the surgical procedure. The History & Physical has been completed within 30 days and I have reviewed it.: Yes Section B - Complete if H&P > 30 days Chief Complaint: depression Allergies: Allergies Allergy/AdvReac Type Severity Reaction Status Date / Time No Known Allergies Allergy Verified 10/20/25 14:10 Plan I have reviewed the history and physical and performed a pertinent physical examination on my patient. No changes have occurred unless specified. Time Spent With Patient Time: Total time managing care of this patient today ____ minutes.
--- NOTE | 2025-11-03 09:02 | HO.ECTPROC ---
ECT Procedure Note Diagnosis/Treatment Date of Service: 11/03/25 Diagnosis: Bipolar disorder (MRE depressed) Previous ECT Date: 10/30/25 Current Treatment Number: 3 Treatment: Series Interval Clinical Notes: Pt reports that she's not doing well. Preoccupied w/ having phlegm stuck in her throat this am, which she can't cough up. Anesthesiology attempted to suction it but nothing came out. Pt denies any other physical concerns. She denies SI. Affect is anxious/irritable. Denies any issues with last tx Time: Total time managing care of this patient today ____ minutes. ECT Settings Device: THYMATRON DGx Electrode Placement: Bifrontal Program/Pulse Width: 0.50 Energy Percent: 100 Seizure Duration By EEG (in seconds): 52 By Motor Observation (in seconds): 7 Medications Administration General Anesthetic: Methohexital (80) Muscle Relaxant: Succinylcholine (100) Ancillary Medications Miscillaneous Medications: Midazolam (1 mg given pre-tx due to miscommunication. Give 1 mg after in the future ) Airway Management Airway Management: Bag Mask Ventilation Treatment Recommendations Notes: Give midazolam 1 mg after ECT, rather than pre-tx. Pt still had therapeutic seizure today Pt Tolerated Procedure w/o Issue: Yes
[2025-11-03] MEDS: Albuterol Sulfate (0.083%) 2.5 MG/3 ML VIAL.NEB INHALE (10:26)
== END 2025-11-03 11:34 | disposition home or self-care (01) ==
PROVIDERS: PCP Internal Medicine; Visit Provider Psychiatry & Neurology Psychiatry
PROC: (CPT 90870; principal; 2025-11-03 10:00)
DX: F33.2 Major depressive disorder, recurrent severe without psychotic features (principal)
CPT/HCPCS: J0330; J2250; J2405

== ENCOUNTER → 2025-11-03 07:59 | Outpatient (BNV) | payer MEDICARE, SELFPAY | PROVIDERS: PCP Internal Medicine; Visit Provider Psychiatry & Neurology Psychiatry | DX: F31.4 Bipolar disorder, current episode depressed, severe, without psychotic features (principal) | CPT/HCPCS: 90870 ==

== ENCOUNTER 2025-11-03 11:33 | Inpatient (IN) | payer MEDICARE, SELFPAY ==
--- OUTSIDE RECORDS SUMMARY | 2025-07-03 09:20 | XMS_ITS ---
Author Organization [facility] Address [address] [address] Care Team Providers Care Lawn Service Manager Name Role Phone YASMANY ARCE M.D. Primary Care Provider Valorie Campos Unavailable [phone] REASON FOR VISIT HR MEDICARE PE (YELLOW FORM DONE) Encounters Encounter Location Date Provider Diagnosis [facility] [address] [address] 07/03/2025 Valorie Luu Plan Of Treatment Next Appt Details Provider Name:Valorie chahalbertram, 12/18/2025 01:20:00 PM, [address] [place] [address], [address], [place], [address], Progress Notes * DENTON DENNISONHDOB:[birth year] (75 yo F)Acc No.[id number]:07/03/2025 PROGRESS NOTES Patient: TEDDY FAIR Appointment Provider: Bertram Luu M.D. :1950 A ge:74 Y S ex:Female Date:07/03/2025 Address:[address] [place] [address], [facility] Pcp:YASMANY ARCE M.D. Subjective: * Chief Complaints: * 1 . HR MEDICARE PE (YELLOW FORM DONE). * Medical History: Objective: * Vitals: Assessment: Plan: * Treatment: * Images: Billing Information: * Visit Code: * Procedure Codes: * Electronic signature of Joyce Luu MD on 11/03/2025 at 02:06 PM EST Sign off status: Pending * Appointment Provider: Bertram Luu M.D. Date: 0 07/03/2025 Generated for Uri rogers/Charis/Yasmine on: 1 01/04/2025 02:06 PM EST
[2025-11-03 11:53] VITALS: RESP 14; BMI 22.1
[2025-11-03 12:04] VITALS: BP 158/95; PULSE 85; RESP 14; TEMP 36.6; O2SAT 97
--- NOTE | 2025-11-03 12:09 | PC.NURSE ---
Miriam comes to the emergency department today from her ECT appointment here at [facility]. Pt refusing to elaborate on why she came from ECT to here, per staff that brought patient over Dr. Shearer would like her to be admitted . When asked if she was having thoughts of harming herself, pt scoffed and stated how am I supposed to kill myself in this place . Pt confirms that she is having no homicidal thoughts. Pt eye contact is minimal, she reports to this RN that she would not like to be here at this time. Pt reports that she is concerned about having trouble swallowing. According to previous visit notes, it appears as though this has occured in the past as well NEMO Gill currently at bedside for provider tabitha
[2025-11-03 12:17] LABS: MANUAL DIFF FLAG NO
[2025-11-03 12:19] LABS: Hematocrit 44.7 % (37.0-47.0); Hemoglobin 15.0 g/dl (12.0-16.0); Imm Gran Abs Auto 0.01 X10*3/uL (0.00-0.03); Imm Gran Pct Auto 0.2 % (0.0-0.4); Lymphocytes Absolute Auto 1.1 X10*3/uL (1.2-4.9); Mean Corpuscular HGB Conc 33.6 g/dl (31.0-35.0); Mean Corpuscular Hemoglobin 30.4 pg (27.0-33.0); Mean Corpuscular Volume 90.5 fL (80.0-98.0); NRBC Abs Auto 0.000 X10*3/uL (0.0-0.012); NRBC Pct Auto 0.0 /100WBC (0.0-0.2); Platelet Count 271 X10*3/uL (160-400); Red Blood Count 4.94 X10*6/uL (4.20-5.50); White Blood Count 5.2 X10*3/uL (4.8-10.8)
--- NOTE | 2025-11-03 12:28 | ED.PSYCH ---
HPI - Psych General Chief Complaint: Psychiatric Symptoms Stated Complaint: crisis Time Seen by Provider: 11/03/25 11:46 Source: patient, RN notes reviewed and old records reviewed Mode of arrival: ambulatory Limitations: no limitations History of Present Illness ED Provider: GISELLE Rojas HPI Narrative: 75-year-old female with medical history of bipolar 2 disorder, major depressive disorder, GERD, ADHD, hypothyroidism, HTN, hypercalcemia, presents to the ED due to a behavioral health issue. Patient states she was downstairs completing ECT therapy with Dr. Shearer when she was sent down to the ED. When asking the patient why she was sent down, patient states ?they thinks that I need inpatient care?. Patient will not expand any further explaining what happened other than she felt that she was having a difficult time swallowing due to phlegm in her throat. Patient states this sensation has been going on for the past year and has seen her PCP for the issue without any findings. Patient denies SI, HI, AVH, chest pain, difficulty breathing, shortness of breath, abdominal pain, nausea, vomiting, headaches, visual changes, urinary symptoms Related Data Home Medications ?Medication ?Instructions ?Recorded ?Confirmed famotidine 40 mg tablet 40 mg PO DAILY 11/03/24 11/03/25 amlodipine 5 mg tablet 5 mg PO DAILY 10/21/25 11/03/25 diazepam 5 mg tablet 2.5 - 5 mg PO DAILY PRN anxiety 10/21/25 11/03/25 diazepam 5 mg tablet 5 mg PO BEDTIME 10/21/25 11/03/25 quetiapine 25 mg tablet 25 mg PO DAILY PRN Anxiety 10/21/25 11/03/25 armodafinil 150 mg tablet 75 mg PO QAM 11/03/25 11/03/25 bupropion HCl 150 mg tablet,12 hr 150 mg PO DAILY 11/03/25 11/03/25 sustained-release quetiapine 100 mg tablet 100 mg PO BEDTIME 11/03/25 11/03/25 Allergies Allergy/AdvReac Type Severity Reaction Status Date / Time No Known Allergies Allergy Verified 11/03/25 11:58 Review of Systems Review of Systems: Yes all other systems are reviewed and are negative PMFSH Past Medical History Attestation statement: The following information was validated with the patient. Source: old records reviewed and nursing notes reviewed Medical History Depression Hypothyroidism ZAC (generalized anxiety disorder) Hypertension ADHD (attention deficit hyperactivity disorder) Surgical History H/O thumb surgery H/O cone biopsy of cervix Family History Family History Other No pertinent family history Social History Social History Household Members: Spouse Household Members Other:: And two cats. Housing: House Do you presently have visiting nurse or other home services: No Alcohol intake: never Patient Tobacco Use Status: Former Tobacco user Tobacco use type: Cigarette Years Smoked: 20 Smoked in Last 30 Days: No e-Cigarette/Vaping Use: Never Used Second Hand Smoke Exposure: No Use of substances other than those prescribed or required for medical reasons: Yes Substance Use Type: Marijuana Substance Use Frequency: Occasionally Last Used Substance: Weeks (ago) Any prior treatment program specific to substance use: No Advance Directives: No Advance Directives Information Provided: Yes service: No Sexual orientation: Straight/Heterosexual Physical Exam Vital Signs: Vital Signs: Last Vital Signs Temp 97.8 F 11/03/25 12:04 Pulse 85 11/03/25 12:04 Resp 14 11/03/25 12:04 BP 158/95 H 11/03/25 12:04 Pulse Ox 97 11/03/25 12:04 O2 Del Method Room Air 11/03/25 12:04 BMI result Body Mass Index 22.1 GENERAL APPEARANCE: ?AxOx4, patient is lying down in hospital bed, with eyes closed while having conversation, no acute distress. HEENT: ?NC, AT. MMM. EOMI, clear conjunctiva, oropharynx clear, no evidence of phlegm in the throat, patient without pain when palpating the trachea and asking her to swallow NECK: ?Supple without lymphadenopathy.? No stiffness or restricted ROM. HEART:? Normal rate and regular rhythm, normal S1/S2, no m/r/g LUNGS:? CTAB, moving air well. No crackles or wheezes are heard. ABDOMEN: ?Soft, nontender, nondistended with good bowel sounds heard. BACK: No CVAT, no obvious deformity. EXTREMITIES: ?Without cyanosis, clubbing or edema. NEUROLOGICAL: ?Grossly nonfocal. Alert and oriented, moving all 4 extremities. Observed to ambulate with normal gait. Skin: ?Warm and dry without any rash. PSYCH: Patient with organized thoughts and ideas, having difficulty elaborating on what brought her down to the ED, patient is speaking with eyes closed for the majority of the conversation Medical Decision Making Medical Decision Making MDM Narrative: 75-year-old female with medical history of bipolar 2 disorder, major depressive disorder, GERD, ADHD, hypothyroidism, HTN, hypercalcemia, presents to the ED due to a behavioral health issue. Patient states she was downstairs completing ECT therapy with Dr. Shearer when she was sent down to the ED. Patient unable to state why she was sent to the ED and is perseverating on phlegm in her throat. Denies SI, HI, AVH I reached out to Dr. Shearer for clarification, and stated that patient started psychotically perseverating on phlegm being stuck in her throat, and started making vague statements saying she would be better off . Dr. Shearer states that this patient has had extensive workup with ENT specialists, and CT imaging and has been negative for any obstructions. Dr. Shearer states that the patient is perseverating, and somatically preoccupied about the phlegm in her throat and is mentally decompensating when she begins to worry about this and feels that she would be more appropriate for inpatient level of care. VS on initial observation-BP 158/95, pulse rate of 85, respiratory rate of 14, afebrile with oral temp of 97.8?, O2 saturation 97% on room air. EKG reveals normal sinus rhythm without ST-elevation/depression, lengthened QT Labs without leukocytosis/leukopenia, no evidence of anemia with H&H stable, elevated carbon dioxide of 31 however this seems to be around patient's baseline, no electrolyte abnormalities. UA reveals 1+ leukocyte esterase, 0-2 urine RBCs, 0-5 urine WBCs, 6 to skin squamous epithelial cells, 1+ bacteria however patient without urinary symptoms, likely a contaminated specimen no indication for antibiotics at this time. Urine will be cultured and if specific bacteria grows will be started on appropriate therapy. Viral serology negative U tox positive for benzodiazepines Patient was evaluated by behavioral health specialists Viky Tello. Patient meets IP LOC for safety, stabilization, observation. Patient is medically cleared for admission. Differential Diagnosis Differential Diagnoses: The differential diagnosis associated with the presentation includes Increased depression Increased anxiety Bipolar disorder Psychosis Suicidal ideation Admission/Observation Consideration of admission/observation: Escalation of care including admission/observation considered Consult Healthcare Provider Management of the patient was discussed with: Industrial Furnace Fabricator (Care team) and Behavioral Health Provider (Dr. Shearer) Lab Data MDM Lab Attestation statement: I reviewed the patient's lab results. 11/03/25 12:14 11/03/25 12:14 Labs: Lab Results 11/03/25 11/03/25 Range/Units 12:14 15:04 WBC 5.2 (4.8-10.8) X10*3/uL RBC 4.94 (4.20-5.50) X10*6/uL Hgb 15.0 (12.0-16.0) g/dl Hct 44.7 (37.0-47.0) % MCV 90.5 (80.0-98.0) fL MCH 30.4 (27.0-33.0) pg MCHC 33.6 (31.0-35.0) g/dl RDW 13.0 (11.0-16.0) % Plt Count 271 (160-400) X10*3/uL MPV 9.1 L (9.4-12.3) fL Immature Gran % (Auto) 0.2 (0.0-0.4) % Neut % (Auto) 70.4 (45-73) % Lymph % (Auto) 20.8 (20-40) % Rock % (Auto) 6.5 (2-11) % Eos % (Auto) 1.5 (0-4) % Baso % (Auto) 0.6 (0-2) % Lymph # (Auto) 1.1 L (1.2-4.9) X10*3/uL Rock # (Auto) 0.3 (0.1-1.2) X10*3/uL Eos # (Auto) 0.1 (0.0-0.4) X10*3/uL Baso # (Auto) 0.0 (0.0-0.2) X10*3/uL Abs Immat Gran (auto) 0.01 (0.00-0.03) X10*3/uL Absolute Neuts (auto) 3.7 (2.0-8.3) x10*3/uL Absolute Nucleated RBC 0.000 (0.0-0.012) X10*3/uL Nucleated RBC % (auto) 0.0 (0.0-0.2) /100WBC Sodium 143 (135-145) mmol/L Potassium 5.0 (3.3-5.1) mmol/L Chloride 108 (96-108) mmol/L Carbon Dioxide 31 H (22-29) mmol/L Anion Gap 9 L (12-20) BUN 17 H (9-16) mg/dL Creatinine 0.94 (0.5-1.4) mg/dL Estim Creat Clear Calc 42.1 Estimated GFR 58 Random Glucose 107 (60-115) mg/dL Calcium 10.0 (8.4-10.2) mg/dL Total Bilirubin 0.2 (0.0-1.0) mg/dL AST 18 (5-31) U/L ALT 21 (0-31) U/L Alkaline Phosphatase 128 H (39-117) U/L Total Protein 6.4 L (6.5-8.0) g/dL Albumin 4.2 (3.5-5.0) g/dL Urine Color Yellow Urine Appearance Cloudy Urine pH 7.5 (5.0-9.0) Ur Specific Bath 1.010 (1.005-1.025) Urine Protein Negative (Neg-Trace) mg/dL Urine Glucose (UA) Negative (Negative) mg/dL Urine Ketones Negative (Negative) mg/dL Urine Blood Negative (Negative) Urine Nitrite Negative (Negative) Ur Leukocyte Esterase Small (1+) H (Negative) Urine RBC 0-2 (0-2) /HPF Urine WBC 0-5 (0-5) /HPF Ur Squamous Epith Cells 6-10 (0-2) /HPF Urine Bacteria 1+ (None Seen) Hyaline Casts 0-2 (0-2) /LPF Urine Opiates Screen Not Detected (Not Detect) Ur Buprenorphine Scrn Not Detected (Not Detect) ng/mL Ur Oxycodone Screen Not Detected (Not Detect) ng/mL Urine Methadone Screen Not Detected (Not Detect) ng/mL Urine Fentanyl Screen Not Detected (Not Detect) Ur Barbiturates Screen Not Detected (Not Detect) Ur Phencyclidine Scrn Not Detected (Not Detect) Ur Amphetamines Screen Not Detected (Not Detect) U Benzodiazepines Scrn POSITIVE H (Not Detect) Urine Cocaine Screen Not Detected (Not Detect) U Marijuana (THC) Screen Not Detected (Not Detect) Ethyl Alcohol < 10 mg/dL Independent Interpretation I performed an independent interpretation of an: EKG Interpretation: I personally interpreted the EKG which reveals normal sinus rhythm without signs of acute ischemia, lengthened QT Vent. Rate : 89 BPM Atrial Rate : 89 BPM P-R Int : 150 ms QRS Dur : 78 ms QT Int : 352 ms P-R-T Axes : 39 46 36 degrees QTcB Int : 428 ms Normal sinus rhythm Normal ECG When compared with ECG of 20-Oct-2025 15:06, No significant change was found External Record Review External record reviewed: Inpatient record, Office record, Outpatient record and Prior outpatient labs Chronic Conditions Patient?s care impacted by: Hypertension and Other (Bipolar, major depressive disorder, GERD, ADHD, hypothyroidism, hypercalcemia) Discharge Plan Discharge Clinical Impression: Depression Patient Disposition: Admitted As Inpatient Interventions: [place]-Suicide Risk Severity Scale Last Done: 11/03/25 12:07
[2025-11-03 12:34] LABS: Alanine Aminotransferase 21 U/L (0-31); Albumin Level 4.2 g/dL (3.5-5.0); Alkaline Phosphatase 128 U/L (39-117); Anion Gap 9 (12-20); Aspartate Amino Transferase 18 U/L (5-31); Blood Urea Nitrogen 17 mg/dL (9-16); Calcium 10.0 mg/dL (8.4-10.2); Carbon Dioxide 31 mmol/L (22-29); Chloride 108 mmol/L (96-108); Creatinine Clr Calc Pharmacy 42.1; Estimated Glomerular Filt Rate 58; Potassium 5.0 mmol/L (3.3-5.1); Sodium 143 mmol/L (135-145); Total Protein 6.4 g/dL (6.5-8.0)
--- NOTE | 2025-11-03 12:37 | ECG_ITS ---
Test Reason : qt measurement Blood Pressure : */* mmHG Vent. Rate : 89 BPM Atrial Rate : 89 BPM P-R Int : 150 ms QRS Dur : 78 ms QT Int : 352 ms P-R-T Axes : 39 46 36 degrees QTcB Int : 428 ms Normal sinus rhythm Normal ECG When compared with ECG of 20-Oct-2025 15:06, No significant change was found Referred By: Bridget Rojas Electronically Signed By: Stanislaw Swanson
--- NOTE | 2025-11-03 12:45 | PC.NURSE ---
Pt declines urine sample at this time
--- OUTSIDE RECORDS SUMMARY | 2025-11-03 14:06 | XMS_ITS | Clinical Summary ---
Author Organization [facility] Address [address] [place] [address] Care Team Providers Care Manager Organizational Name Role Phone Taim Francis MD Primary Care Provider [phone] Allergies Active Allergy Reactions Criticality Noted Date [...] capsule by mouth daily. Active nystatin (MYCOSTATIN) 187577 UNIT/ML suspensionIndicat ions:Throat discomfort Take 5 mL [...] topic Insurance MEDICARE PART A & B [facility] MEDICARE PART A & B [facility] Advance Directives * Full Code (Latest Code Status on File) Date Activated Date Inactivated Comments 01/23/2023 6:34 PM Care Teams Manager Organizational Relationship Specialty Start Date End Date Tami Francis MD [address] [place] [address] PCP - General Internal Medicine 01/23/23
--- OUTSIDE RECORDS SUMMARY | 2025-11-03 14:06 | XMS_ITS | Clinical Summary ---
Author Organization [facility] Address [address] [place] [address] Care Team Providers Care Five Piece Expansion Maker Hand Name Role Phone Pcp, No Primary Care [...] Not on file Insurance MEDICARE PART A&B [facility] MCR SUPPLEMENT Care Teams Five Piece Expansion Maker Hand Relationship Specialty [place] [id number] PCP - General 07/31/19
--- OUTSIDE RECORDS SUMMARY | 2025-11-03 14:06 | XMS_ITS | Clinical Summary ---
Author Organization [facility] Address [address] [place] [id number] Care Team Providers Care Ccu Nurse Name Role Phone Tami Francis MD Primary Care Provider [phone] Allergies No known active allergies Medications amLODIPine [...] patient's age to complete this topic Insurance [facility] Medicare [facility] Medicare Care Teams Ccu Nurse Relationship Specialty Start Date End Date Tami Francis MD [address] [place] [address] PCP - General Internal Medicine 06/13/21
--- OUTSIDE RECORDS SUMMARY | 2025-11-03 14:06 | XMS_ITS | Clinical Summary ---
Author Organization [facility] Address [address] [place] [address] Phone Care Team Providers Care Powderman Name Role Phone Tami Francis MD Primary Care Provider [phone] Allergies Active Allergy Reactions Criticality Noted Date [...] Maintenance Results * COLONOSCOPY Anesthesia - MAC; [facility] ENDOSCOPY (06/20/2025 3:30 PM EDT) [...] disease segment. Narrative 06/20/2025 3:31 PM EDT [facility] GI Patient Name: Miriam Dennison Procedure Date: 06/20/2025 3:10 PM Date of : 1950 Age: 74 Gender: Female Note Status: Finalized Attending MD: Ron Adam DO, [id number] Procedure Date No Time: 06/20/2025 Procedure: Colonoscopy [...] the physician, the nurse, the anesthesiologist, the inbound sales manager and the gate technician in the pre-procedure area in the [...] retroflexion views. Procedure Code(s): --- Professional --- 64213, Colonoscopy, flexible; with removal of tumor(s), polyp(s), or other lesion(s) by snare technique Diagnosis Code(s): --- Professional --- K64.9, Unspecified hemorrhoids D12.5, Benign neoplasm of sigmoid colon D12.4, Benign neoplasm of descending colon K57.30, Diverticulosis of large intestine without perforation or abscess without bleeding CPT copyright 2020 [employer]. All rights reserved. The codes documented in this report are preliminary and upon hand bulldozer review may be revised to meet current compliance requirements. RON Adam DO 06/20/2025 3:31:11 PM This report has been signed electronically.Ron Adam DO Number of Addenda: 0 Note Initiated On: 06/20/2025 3:10 PM Scope Withdrawal Time: 0 hours 8 minutes 20 seconds Scope In: 3:17:07 PM Scope Out: 3:29:30 PM Endoscopy Department at [facility] - [address] [place] [id number] Procedure Note Ron Adam DO - 06/20/2025 [facility] GI Patient Name: Miriam Dennison Procedure Date: 06/20/2025 3:10 PM Date of : 1950 Age: 74 Gender: Female Note Status: Finalized Attending MD: Ron Adam DO, [id number] Procedure Date No Time: 06/20/2025 Procedure: Colonoscopy [...] the physician, the nurse, the anesthesiologist, the inbound sales manager and thetechnician in the pre-procedure area in [...] retroflexion views. Procedure Code(s): --- Professional --- 77183, Colonoscopy, flexible; with removal of tumor(s), polyp(s), or other lesion(s) by snare technique Diagnosis Code(s): --- Professional --- K64.9, Unspecified hemorrhoids D12.5, Benign neoplasm of sigmoid colon D12.4, Benign neoplasm of descending colon K57.30, Diverticulosis of large intestine without perforation or abscess without bleeding CPT copyright 2020 [employer]. All rights reserved. The codes documented in this report are preliminary and upon hand bulldozer reviewmay be revised to meet current compliance requirements. RON Adam DO 06/20/2025 3:31:11 PM This report has been signed electronically.Ron Adam DO Number of Addenda: 0 Note Initiated On: 06/20/2025 3:10 PM Scope Withdrawal Time: 0 hours 8 minutes 20 seconds Scope In: 3:17:07 PM Scope Out: 3:29:30 PM Endoscopy Department at [facility] - [address] [place] [id number] IMPRESSION: - Hemorrhoids found on perianal exam. [...] Recently Relevant to Health Maintenance Insurance MEDICARE [facility] [[email or web address]] Care Teams Powderman Relationship Specialty Start Date End Date Tami Francis MD [address] [place] [address] PCP - General Internal Medicine 03/07/25
--- OUTSIDE RECORDS SUMMARY | 2025-11-03 14:06 | XMS_ITS | Patient Health Record ---
Author Organization [facility] Address [address] [address] Care Team Providers Care Rig Site Engineer Name Role Phone YASMANY ARCE M.D. Primary Care Provider Valorie Campos Unavailable [phone] Allergies Allergen (clinical drug ingredient) Drug/Non Drug [...] Active Multivitamins 1 ORAL daily; Duration: -3 [facility] 01/20/2012 Active amLODIPine Besylate 5MG 1 ORAL daily; Duration: -3 [facility] NORVASC 06/28/2012 Active Losartan Potassium 50 MG Oral; Duration: 90 Days Active Vitamin E 400 UNIT 1 capsule Orally Once a day; Duration: 30 day(s) Active Calcium-D 600MG 1 ORAL daily; Duration: -3 [facility] 01/20/2012 Active Armodafinil 150 MG TAKE ONE TABLET BY MOUTH EVERY MORNING Oral; Duration: 30 Days Active Vitamin C 500MG 2 grams ORAL daily [facility] 04/24/2014 Active diazePAM 5 MG Oral; [...] I disorder, most recent episode depressed (disorder) (31629835) Bipolar I disorder, most recent episode (or current) depressed, unspecified (296.50) Active confirmed Problem 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 confirmed Problem Essential hypertension (86105074) Unspecified essential hypertension (401.9) Active confirmed Problem Menopausal symptom (32486976) Symptomatic menopausal or female climacteric states (627.2) Active confirmed Problem Disorder of bone and articular cartilage (disorder) (840383787) Disorder of bone and cartilage, unspecified (733.90) Active confirmed Problem Postmenopausal atrophic vaginitis (62741478) Postmenopausal atrophic vaginitis (N95.2) Active confirmed Problem Age-related osteoporosis (398600857) Age-related osteoporosis without current pathological fracture (M81.0) Active confirmed Problem History of dysplasia of cervix (960309560) Personal history of cervical dysplasia (Z87.410) Active confirmed Problem General examination of patient (200875203) Routine general medical examination at health care facility (V70.0) Active confirmed Diag Problem Gynecological examination normal (781045237863569) Routine gynecological examination (V72.31) Active confirmed Problem Screening for malignant neoplasm of colon (221194808) Special screening for malignant neoplasms, colon (V76.51) [...] Provider Name:Valorie montesinos, 12/18/2025 01:20:00 PM, [address], [address], [place], [address], Insurance Providers Payer Name Payer Address Payer Phone Subscriber Number Group Number Insured Name Patient Relationship to Insured Coverage Start Date Coverage End Date MEDICARE [address] MARY KANG [id number] TEDDY DENNISON Self - patient is the insured MEDEX [address] [place] [address] [id number] TEDDY DENNISON Self - patient is [...]
--- NOTE | 2025-11-03 15:15 | PHA.MEDREC ---
Addendum entered by Ron Sen [facility] 11/03/25 15:38: Med rec reviewed Original Note: Pharmacy Consult ? Medication Reconciliation Pharmacy reviewed med rec done by nursing. Spoke with pt spouse and he verified that there were changes to his 's medications; Quetiapine increased from 25mg x3 (75mg) to 100mg at bedtime, states pt has not been taking her Estradiol tablets in ~1-2 months and he knows pt Bupropion changed recently but isn't sure how it changed at this time; Dr Shearer changed Bupropion 150mg tabs from BID to QD. Updated med rec according to findings from and medical history.
[2025-11-03 15:20] LABS: Appearance Urine Cloudy; Glucose Urine UA Negative (Negative); PH 7.5 (5.0-9.0); Specific Gravity - Urine 1.010 (1.005-1.025); UMIC TRIGGER UACC YES
[2025-11-03 15:25] LABS: Cannabinoid Screen Urine Not Detected (Not Detect)
[2025-11-03 15:37] LABS: UACC Culture Trigger YES
[2025-11-03 17:26] VITALS: BMI 18.7
--- NOTE | 2025-11-03 18:44 | PC.ADMIT ---
Miriam was admitted to M3 from [facility] on a CV for treatment of MDD and ZAC. Prior to admission she was brought to the ED after ECT as recommended by her outpatient provider Yovany Shearer MD due to increased depression. She is minimally engaged in admission but reports not remembering being here recently. She states her main concern is feeling like she is unable to swallow. Upon admission, she is calm and cooperative but not engaging. She denied SI/HI/AVH but endorsed anxiety/depression. She reports she has no symptoms after ECT this morning. She expresses not being thrilled about being on the unit. Her mood is anxious and her affect is congruent with her mood. She reports poor appetite and poor sleep. Her thought process is clear and linear, no evidence of perceptual disturbances. She has a medical history of HTN and Hypothyroidism. She denies alcohol or drug or tobacco use. Her tox screen was positive for benzodiazepines which she is prescribed. Her skin check was unremarkable. She was placed on 15 minute checks for safety.
[2025-11-03 19:15] VITALS: BP 166/80; PULSE 81; RESP 16; TEMP 36.5; O2SAT 98
[2025-11-03] MEDS: Throat Lozenge, Medicated LOZENGE 1 LOZENGE MUCOUS MEM (20:35)
--- NOTE | 2025-11-03 22:48 | HO.PSYADMNOT ---
HPI Date of Service: 11/03/25 Chief Complaint: depression & SI Sources of Information: patient interviewed, chart reviewed and crisis/core team assessment reviewed HPI Subjective Notes: [place] Warning and Conditional Voluntary Guardianship: No Medical Problems Affecting Mental Status: No Narrative: Per care team: patient is a 75 year old white retired female with history of HTN, MDD, anxiety disorders who is, known to [facility], walked to the ED from OP ECT due to patient's ECT/ OP provider. Per , she is reported to be struggling with psychotic depression. Patient?s also indicates that she has struggled with seemingly chronic mucus in her throat since beginning ECT. Referred to CARE team for LOC/ risk assessment. Patient herself is minimally engaged, a petite woman, primarily beneath the sheets of her bed, just her hair visible The precipitant is unclear, seems on the one hand seems to attribute it to the ECT, and moments later hs says ? sometimes she is great, she?s very high functioning.? On m3: Patient was struggle regarding deciding to sign herself in here. Reports main reason for being in he is I was receiving ECT this morning. I got phlegm stuck in my throat. And I come here due to the recommendation of Dr. Shearer that I should stay . She was not sure if she should be here. She thinks she only be staying here for 3 days. Reports her throat issue has been there for awhile but is got was this morning and she does not know why. Denies pain on the throat. Denies SI, SIB/HI/AVH, denies suicide attempts, reported that she never having suicidal thoughts in her life. But reports severe depression anxiety rated them 8+/10. Reported that she has been sleeping well, but appetite has down . She lost about 4 lb in the past month. She appears to be very skinny. Reported that she is supposed to drink ensure but she has not yet lately. Agreed to get Ensure t.i.d. why she is here with us. Denies medical conditions except for hypertensive. She can not recall that she was here back in October 20. She said that the fact that she can not recall that is make also make her anxious. Sometimes reported that she feels confused . Legal issues: Denies current legal issues Trauma history: Denies trauma history Family history: Reports her son has bipolar but denies any substance use in the family. Substance use: Denies Treatment history: She denies history of inpatient admissions. However per record, this is her 3rd admission here on /[facility]. She has Dr. Shearer as an outpatient provider. Schedule is flexible. Reported that she had a therapist via telehealth which is helpful. Patient is A&O x3, wearing casual attire, very anxious but cooperative, depressed, anxious somewhat with underlying irritability, appeared to be forgetful. Trouble with memory. ? congnitive decline. Thought processes is disorganized. Speech is within normal limit, soft spoken. Fair eye contact, congruent with mood. Constricted affect. Thought content is ambivalence regarding a treatment, no SI/SIB /HI/AVH, no CAH. Does not appeared to be paranoid, delusions. Fair eye contact. Poor judgment and insight. Past Psychiatric History: -Pt sees Dr. Shearer in OP setting . Last ECT 11/03/2025. Last inpatient episode 2022 and 10/20/25 as per records. Reports 1st psychiatric admission in her 40s approximately. First ECT sessions approximately 10 years ago. Also has a therapist via telehealth. Denies any history of suicide attempts or psychosis. Medical Evaluation [facility]ed: [facility] History Depression Hypothyroidism ZAC (generalized anxiety disorder) Hypertension ADHD (attention deficit hyperactivity disorder) Surgical History H/O thumb surgery H/O cone biopsy of cervix Family History: Reports her son has bipolar but denies any substance use in the family. 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. Both retired. Occasional marijuana use. Substance History: Denies Trauma History: Denies Diagnostics Vital Signs (24Hr): Vital Signs - 24 hr 11/03/25 11:53 11/03/25 12:04 11/03/25 19:15 Temperature 97.8 F 97.7 F Pulse Rate 85 81 Respiratory Rate 14 14 16 Blood Pressure 158/95 H 166/80 H Pulse Oximetry 97 98 Oxygen Delivery Method Room Air Room Air BMI result Body Mass Index 18.7 Labs 11/03/25 12:14 11/03/25 12:14 Labs: Laboratory Results - last 48 hr 11/03/25 11/03/25 12:14 15:04 WBC 5.2 RBC 4.94 Hgb 15.0 Hct 44.7 MCV 90.5 MCH 30.4 MCHC 33.6 RDW 13.0 Plt Count 271 MPV 9.1 L Immature Gran % (Auto) 0.2 Neut % (Auto) 70.4 Lymph % (Auto) 20.8 [place] % (Auto) 6.5 Eos % (Auto) 1.5 Baso % (Auto) 0.6 Lymph # (Auto) 1.1 L [place] # (Auto) 0.3 Eos # (Auto) 0.1 Baso # (Auto) 0.0 Abs Immat Gran (auto) 0.01 Absolute Neuts (auto) 3.7 Absolute Nucleated RBC 0.000 Nucleated RBC % (auto) 0.0 Sodium 143 Potassium 5.0 Chloride 108 Carbon Dioxide 31 H Anion Gap 9 L BUN 17 H Creatinine 0.94 Estim Creat Clear Calc 42.1 Estimated GFR 58 Random Glucose 107 Calcium 10.0 Total Bilirubin 0.2 AST 18 ALT 21 Alkaline Phosphatase 128 H Total Protein 6.4 L Albumin 4.2 Urine Color Yellow Urine Appearance Cloudy Urine pH 7.5 Ur Specific [place] 1.010 Urine Protein Negative Urine Glucose (UA) Negative Urine Ketones Negative Urine Blood Negative Urine Nitrite Negative Ur Leukocyte Esterase Small (1+) H Urine RBC 0-2 Urine WBC 0-5 Ur Squamous Epith Cells 6-10 Urine Bacteria 1+ Hyaline Casts 0-2 Urine Opiates Screen Not Detected Ur Buprenorphine Scrn Not Detected Ur Oxycodone Screen Not Detected Urine Methadone Screen Not Detected Urine Fentanyl Screen Not Detected Ur Barbiturates Screen Not Detected Ur Phencyclidine Scrn Not Detected Ur Amphetamines Screen Not Detected U Benzodiazepines Scrn POSITIVE H Urine Cocaine Screen Not Detected U Marijuana (THC) Screen Not Detected Ethyl Alcohol < 10 Imaging Radiology Impressions: Normal sinus rhythm Normal ECG When compared with ECG of 20-Oct-2025 15:06, No significant change was found Meds/Allergies Meds Home Medications ?Medication ?Instructions ?Recorded ?Confirmed ?Type famotidine 40 mg tablet 40 mg PO DAILY 11/03/24 11/03/25 History amlodipine 5 mg tablet 5 mg PO DAILY 10/21/25 11/03/25 History diazepam 5 mg tablet 2.5 - 5 mg PO DAILY PRN anxiety 10/21/25 11/03/25 History diazepam 5 mg tablet 5 mg PO BEDTIME 10/21/25 11/03/25 History quetiapine 25 mg tablet 25 mg PO DAILY PRN Anxiety 10/21/25 11/03/25 History armodafinil 150 mg tablet 75 mg PO QAM 11/03/25 11/03/25 History bupropion HCl 150 mg tablet,12 hr 150 mg PO DAILY 11/03/25 11/03/25 History sustained-release quetiapine 100 mg tablet 100 mg PO BEDTIME 11/03/25 11/03/25 History Allergies Allergies Allergy/AdvReac Type Severity Reaction Status Date / Time No Known Allergies Allergy Verified 11/03/25 11:58 Mental Status Exam Mental Status Exam Narrative: Patient is A&O x3, wearing casual attire, very anxious but cooperative, depressed, anxious somewhat with underlying irritability, appeared to be forgetful. Trouble with memory. ? congnitive decline. Thought processes is disorganized. Speech is within normal limit, soft spoken. Fair eye contact, congruent with mood. Constricted affect. Thought content is ambivalence regarding a treatment, no SI/SIB /HI/AVH, no CAH. Does not appeared to be paranoid, delusions. Fair eye contact. Poor judgment and insight. Assessment & Plan Assessment & Plan (1) Major depressive disorder, recurrent severe without psychotic features: Status: Acute Code(s): F33.2 - Major depressive disorder, recurrent severe without psychotic features (2) ZAC (generalized anxiety disorder): Status: Acute Code(s): F41.1 - Generalized anxiety disorder (3) Hypertension: Status: Chronic Code(s): I10 - Essential (primary) hypertension Plan HPI: patient is a 75 year old white retired female with history of HTN, MDD, anxiety disorders who is, known to [facility], walked to the ED from OP ECT due to patient's ECT/ OP provider. Per , she is reported to be struggling with psychotic depression. Patient?s also indicates that she has struggled with seemingly chronic mucus in her throat since beginning ECT. Referred to CARE team for LOC/ risk assessment. Patient herself is minimally engaged, a petite woman, primarily beneath the sheets of her bed, just her hair visible The precipitant is unclear, seems on the one hand seems to attribute it to the ECT, and moments later hs says ? sometimes she is great, she?s very high functioning.? On admission, patient fully engaged in conversation, cooperative. However, appeared to be with severe depression anxiety, not able to focus, poor memory, appeared to be confused. She can not recall she was here about 2 weeks ago. Continue talking about something stuck into her throat but denies pain. Formulation/clinical reasoning: Increase in depression, severe anxiety, declines in functioning and memory. Some medication changed lately may affect her mood/mental health. Patient will be benefit in restrictive environment for own safety, monitor for mental status changes, medication management, and continue to ECT/outpatient psychiatric services once stable. Hospital course: 11/03/25: Patient received ECT as an outpatient this morning. Dr. Shearer is her outpatient provider. Per record: medication titration down: Wellbutrin down from 300 to 150mg. Will receive 150mg x1 on 11/04/25. Then discontinue. Armodafinil was discontinued Increased Seroquel from 75mg at HS to 100mg. [id number] BID at 0830 and 1430. Norvasc 5 mg daily for hypertension. Monitor for blood pressure which was elevated on admission. Diazepam 5 mg at bedtime, and 2.5-5 mg daily p.r.n. Plan Patient on 15 minute checks for safety. Admitted to M3. CV. Work with treatment team to do collateral. Diagnostic and discharge planning. U tox positive for benzo which patient is prescribed. Patient educated on: diagnosis, medication risk/benefits and therapeutic strategies Informed Consent: understands and further education needed Reason for continued inpatient stay Substantial Risk for: med/psych decompensation Statement Statement: I have reviewed the history and physical and performed a pertinent examination on my patient. No changes have occurred unless specified. If the History and Physical was not performed prior to admission, the Hospitalist's service will be consulted for completing the admission physical. Time Spent With Patient Time: Total time managing care of this patient today ____ minutes.
[2025-11-04 08:00] VITALS: BP 116/70; PULSE 91; RESP 16; TEMP 36.2; O2SAT 93
[2025-11-04 08:48] VITALS: BP 116/70
--- NOTE | 2025-11-04 12:33 | HO.PSYCHPN ---
Subjective Subjective Date of Service: 11/04/25 Reason For Visit: depression & SI Interim History: Keeping to self. Patient reports feeling a little anxious and depressed ; focused on discharge. Patient stated, I just want to get out of here. I'm going to visit with my later . denies SI/HI/VH/AH. Encouraged to leave room. Continue tx plan. Medication Compliance: Yes Side effects from medications: No Mental Status Exam Mental Status Exam Patient Appearance: Well Grooomed Patient Orientation: Person, Place, Time and Situation Level of Consciousness: Awake and Alert Patient Behavior: Appropriate, Guarded, Cooperative and Good Eye Contact Mood Description: Depressed and Anxious Affect Description: Depressed Ability to Follow Directions: Good Speech Pattern: Clear Memory Description: Intact Hallucinations: None Delusions: Not Present Thought Process: Intact Thought Content: positive for Intact Diagnostics Vital Signs (24Hr): Vital Signs - 24 hr 11/03/25 19:15 11/04/25 08:00 11/04/25 08:48 Temperature 97.7 F 97.2 F Pulse Rate 81 91 Respiratory Rate 16 16 Blood Pressure 166/80 H 116/70 116/70 Pulse Oximetry 98 93 Oxygen Delivery Method Room Air Room Air BMI result Body Mass Index 18.7 Labs 11/03/25 12:14 11/03/25 12:14 Labs: Laboratory Results - last 48 hr 11/03/25 11/03/25 12:14 15:04 WBC 5.2 RBC 4.94 Hgb 15.0 Hct 44.7 MCV 90.5 MCH 30.4 MCHC 33.6 RDW 13.0 Plt Count 271 MPV 9.1 L Immature Gran % (Auto) 0.2 Neut % (Auto) 70.4 Lymph % (Auto) 20.8 [place] % (Auto) 6.5 Eos % (Auto) 1.5 Baso % (Auto) 0.6 Lymph # (Auto) 1.1 L [place] # (Auto) 0.3 Eos # (Auto) 0.1 Baso # (Auto) 0.0 Abs Immat Gran (auto) 0.01 Absolute Neuts (auto) 3.7 Absolute Nucleated RBC 0.000 Nucleated RBC % (auto) 0.0 Sodium 143 Potassium 5.0 Chloride 108 Carbon Dioxide 31 H Anion Gap 9 L BUN 17 H Creatinine 0.94 Estim Creat Clear Calc 42.1 Estimated GFR 58 Random Glucose 107 Calcium 10.0 Total Bilirubin 0.2 AST 18 ALT 21 Alkaline Phosphatase 128 H Total Protein 6.4 L Albumin 4.2 Urine Color Yellow Urine Appearance Cloudy Urine pH 7.5 Ur Specific [place] 1.010 Urine Protein Negative Urine Glucose (UA) Negative Urine Ketones Negative Urine Blood Negative Urine Nitrite Negative Ur Leukocyte Esterase Small (1+) H Urine RBC 0-2 Urine WBC 0-5 Ur Squamous Epith Cells 6-10 Urine Bacteria 1+ Hyaline Casts 0-2 Urine Opiates Screen Not Detected Ur Buprenorphine Scrn Not Detected Ur Oxycodone Screen Not Detected Urine Methadone Screen Not Detected Urine Fentanyl Screen Not Detected Ur Barbiturates Screen Not Detected Ur Phencyclidine Scrn Not Detected Ur Amphetamines Screen Not Detected U Benzodiazepines Scrn POSITIVE H Urine Cocaine Screen Not Detected U Marijuana (THC) Screen Not Detected Ethyl Alcohol < 10 Medications Medications Current Medications Acetaminophen (Acetaminophen 325 Mg Tablet) 650 mg PO Q6H PRN PRN Reason: Headache/Pain, Scale 1-10 Al Hydroxide/Mg Hydroxide (Magnesium Hydrox/Alum Hydrox 30 Ml Oral.Susp) 30 ml PO Q6H PRN PRN Reason: Heartburn/Nausea Amlodipine Besylate (Amlodipine Besylate 5 Mg Tablet) 5 mg PO DAILY [facility]; Protocol Last Admin: 11/04/25 08:48 Dose: 5 mg Benzocaine (Throat Lozenge, Medicated Lozenge) 1 lozenge MUCOUS MEM Q2H PRN PRN Reason: Sore Throat Last Admin: 11/03/25 20:35 Dose: 1 lozenge Bupropion HCl (Bupropion Hcl Xl 150 Mg Tab.Er.24h) 150 mg PO ONCE [facility] Diazepam (Diazepam 5 Mg Tablet) 5 mg PO BEDTIME [facility] Last Admin: 11/03/25 20:35 Dose: 5 mg Magnesium Hydroxide (Milk Of Magnesia 30 Ml Oral.Susp) 30 ml PO DAILY PRN PRN Reason: Constipation Non-Formulary Medication (Diazepam) 2.5 - 5 mg PO DAILY PRN PRN Reason: anxiety Quetiapine Fumarate (Quetiapine Fumarate 100 Mg Tablet) 100 mg PO BEDTIME [facility] Last Admin: 11/03/25 20:36 Dose: 100 mg Quetiapine Fumarate (Quetiapine Fumarate 25 Mg Tablet) 25 mg PO BID@0830,1430 [facility] Last Admin: 11/04/25 08:49 Dose: 25 mg Trazodone HCl (Trazodone Hcl 50 Mg Tablet) 50 mg PO BEDTIME MRX1 PRN PRN Reason: Insomnia Last Admin: 11/04/25 02:26 Dose: 50 mg Allergies Allergies Allergy/AdvReac Type Severity Reaction Status Date / Time No Known Allergies Allergy Verified 11/03/25 11:58 Assessment & Plan Assessment & Plan (1) Major depressive disorder, recurrent severe without psychotic features: Status: Acute Code(s): F33.2 - Major depressive disorder, recurrent severe without psychotic features (2) ZAC (generalized anxiety disorder): Status: Acute Code(s): F41.1 - Generalized anxiety disorder (3) Hypertension: Status: Chronic Code(s): I10 - Essential (primary) hypertension Plan HPI: patient is a 75 year old white retired female with history of HTN, MDD, anxiety disorders who is, known to [facility], walked to the ED from OP ECT due to patient's ECT/ OP provider. Per , she is reported to be struggling with psychotic depression. Patient?s also indicates that she has struggled with seemingly chronic mucus in her throat since beginning ECT. Referred to CARE team for LOC/ risk assessment. Patient herself is minimally engaged, a petite woman, primarily beneath the sheets of her bed, just her hair visible The precipitant is unclear, seems on the one hand seems to attribute it to the ECT, and moments later hs says ? sometimes she is great, she?s very high functioning.? On admission, patient fully engaged in conversation, cooperative. However, appeared to be with severe depression anxiety, not able to focus, poor memory, appeared to be confused. She can not recall she was here about 2 weeks ago. Continue talking about something stuck into her throat but denies pain. Formulation/clinical reasoning: Increase in depression, severe anxiety, declines in functioning and memory. Some medication changed lately may affect her mood/mental health. Patient will be benefit in restrictive environment for own safety, monitor for mental status changes, medication management, and continue to ECT/outpatient psychiatric services once stable. Hospital course: 11/03/25: Patient received ECT as an outpatient this morning. Dr. Shearer is her outpatient provider. Per record: medication titration down: Wellbutrin down from 300 to 150mg. Will receive 150mg x1 on 11/04/25. Then discontinue. Armodafinil was discontinued Increased Seroquel from 75mg at HS to 100mg. [id number] BID at 0830 and 1430. Norvasc 5 mg daily for hypertension. Monitor for blood pressure which was elevated on admission. Diazepam 5 mg at bedtime, and 2.5-5 mg daily p.r.n. Plan Patient on 15 minute checks for safety. Admitted to M3. CV. Work with treatment team to do collateral. Diagnostic and discharge planning. U tox positive for benzo which patient is prescribed. 11/04: Keeping to self. Patient reports feeling a little anxious and depressed ; focused on discharge. Patient stated, I just want to get out of here. I'm going to visit with my later . denies SI/HI/VH/AH. Encouraged to leave room. Continue tx plan. Patient educated on: diagnosis, medication risk/benefits and therapeutic strategies Reason for continued inpatient stay Substantial Risk for: med/psych decompensation Time Spent With Patient Time: Total time managing care of this patient today _20___ minutes.
[2025-11-04 19:30] VITALS: BP 112/79; PULSE 87; RESP 16; TEMP 36.4; O2SAT 95
[2025-11-04] MEDS: guaiFENesin LA 600 MG TAB.ER.12H PO (20:45)
[2025-11-05 08:00] VITALS: BP 117/67; PULSE 83; RESP 16; O2SAT 93
[2025-11-05 09:24] VITALS: BP 117/67
[2025-11-05] MEDS: guaiFENesin LA 600 MG TAB.ER.12H PO ×2 (09:24→20:48)
[2025-11-05] MEDS: Sodium Chloride 0.65 % Nasal 44 ML SPRBTL 1 SPRAY NOSTRIL-B ×2 (09:54→12:35)
--- NOTE | 2025-11-05 12:18 | HO.PSYCHPN ---
Subjective Subjective Date of Service: 11/05/25 Reason For Visit: depression & SI Interim History: Keeping to self. Patient reports feeling fair with a little anxiety ; focused on discharge and wanting to speak with her outpatient psychiatrist, Dr. Shearer. denies SI/HI/VH/AH. Encouraged to attend groups. Continue tx plan. Medication Compliance: Yes Side effects from medications: No Mental Status Exam Mental Status Exam Patient Appearance: Well Grooomed Patient Orientation: Person, Place, Time and Situation Level of Consciousness: Awake and Alert Patient Behavior: Appropriate, Guarded, Cooperative and Good Eye Contact Mood Description: Depressed and Anxious Affect Description: Depressed Ability to Follow Directions: Good Speech Pattern: Clear Memory Description: Intact Hallucinations: None Delusions: Not Present Thought Process: Intact Thought Content: positive for Intact Diagnostics Vital Signs (24Hr): Vital Signs - 24 hr 11/04/25 19:30 11/05/25 08:00 11/05/25 09:24 Temperature 97.5 F Pulse Rate 87 83 Respiratory Rate 16 16 Blood Pressure 112/79 117/67 117/67 Pulse Oximetry 95 93 Oxygen Delivery Method Room Air Room Air BMI result Body Mass Index 18.7 Labs 11/03/25 12:14 11/03/25 12:14 Labs: Laboratory Results - last 48 hr 11/03/25 11/03/25 12:14 15:04 WBC 5.2 RBC 4.94 Hgb 15.0 Hct 44.7 MCV 90.5 MCH 30.4 MCHC 33.6 RDW 13.0 Plt Count 271 MPV 9.1 L Immature Gran % (Auto) 0.2 Neut % (Auto) 70.4 Lymph % (Auto) 20.8 [place] % (Auto) 6.5 Eos % (Auto) 1.5 Baso % (Auto) 0.6 Lymph # (Auto) 1.1 L [place] # (Auto) 0.3 Eos # (Auto) 0.1 Baso # (Auto) 0.0 Abs Immat Gran (auto) 0.01 Absolute Neuts (auto) 3.7 Absolute Nucleated RBC 0.000 Nucleated RBC % (auto) 0.0 Sodium 143 Potassium 5.0 Chloride 108 Carbon Dioxide 31 H Anion Gap 9 L BUN 17 H Creatinine 0.94 Estim Creat Clear Calc 42.1 Estimated GFR 58 Random Glucose 107 Calcium 10.0 Total Bilirubin 0.2 AST 18 ALT 21 Alkaline Phosphatase 128 H Total Protein 6.4 L Albumin 4.2 Urine Color Yellow Urine Appearance Cloudy Urine pH 7.5 Ur Specific [place] 1.010 Urine Protein Negative Urine Glucose (UA) Negative Urine Ketones Negative Urine Blood Negative Urine Nitrite Negative Ur Leukocyte Esterase Small (1+) H Urine RBC 0-2 Urine WBC 0-5 Ur Squamous Epith Cells 6-10 Urine Bacteria 1+ Hyaline Casts 0-2 Urine Opiates Screen Not Detected Ur Buprenorphine Scrn Not Detected Ur Oxycodone Screen Not Detected Urine Methadone Screen Not Detected Urine Fentanyl Screen Not Detected Ur Barbiturates Screen Not Detected Ur Phencyclidine Scrn Not Detected Ur Amphetamines Screen Not Detected U Benzodiazepines Scrn POSITIVE H Urine Cocaine Screen Not Detected U Marijuana (THC) Screen Not Detected Ethyl Alcohol < 10 Medications Medications Current Medications Acetaminophen (Acetaminophen 325 Mg Tablet) 650 mg PO Q6H PRN PRN Reason: Headache/Pain, Scale 1-10 Al Hydroxide/Mg Hydroxide (Magnesium Hydrox/Alum Hydrox 30 Ml Oral.Susp) 30 ml PO Q6H PRN PRN Reason: Heartburn/Nausea Amlodipine Besylate (Amlodipine Besylate 5 Mg Tablet) 5 mg PO DAILY [facility]; Protocol Last Admin: 11/05/25 09:24 Dose: 5 mg Benzocaine (Throat Lozenge, Medicated Lozenge) 1 lozenge MUCOUS MEM Q2H PRN PRN Reason: Sore Throat Last Admin: 11/03/25 20:35 Dose: 1 lozenge Bupropion HCl (Bupropion Hcl Xl 150 Mg Tab.Er.24h) 150 mg PO ONCE [facility] Diazepam (Diazepam 5 Mg Tablet) 5 mg PO BEDTIME [facility] Last Admin: 11/04/25 20:45 Dose: 5 mg Fluticasone Propionate (Fluticasone Propionate Nasal 16 Gm [place]) 1 spray NOSTRIL-B BID [facility] Last Admin: 11/05/25 09:25 Dose: 1 spray Guaifenesin (Guaifenesin La 600 Mg Tab.Er.12h) 600 mg PO BID [facility] Last Admin: 11/05/25 09:24 Dose: 600 mg Magnesium Hydroxide (Milk Of Magnesia 30 Ml Oral.Susp) 30 ml PO DAILY PRN PRN Reason: Constipation Non-Formulary Medication (Diazepam) 2.5 - 5 mg PO DAILY PRN PRN Reason: anxiety Quetiapine Fumarate (Quetiapine Fumarate 25 Mg Tablet) 25 mg PO BID@0830,1430 NORBERTO Last Admin: 11/05/25 09:24 Dose: 25 mg Quetiapine Fumarate (Quetiapine Fumarate 25 Mg Tablet) 125 mg PO BEDTIME [facility]ERTO Last Admin: 11/04/25 20:45 Dose: 125 mg Sodium Chloride (Sodium Chloride 0.65 % Nasal 44 Ml Sprbtl) 1 spray NOSTRIL-B Q1H PRN PRN Reason: congestion Last Admin: 11/05/25 09:54 Dose: 1 spray Trazodone HCl (Trazodone Hcl 50 Mg Tablet) 50 mg PO BEDTIME MRX1 PRN PRN Reason: Insomnia Last Admin: 11/04/25 20:45 Dose: 50 mg Allergies Allergies Allergy/AdvReac Type Severity Reaction Status Date / Time No Known Allergies Allergy Verified 11/03/25 11:58 Assessment & Plan Assessment & Plan (1) Major depressive disorder, recurrent severe without psychotic features: Status: Acute Code(s): F33.2 - Major depressive disorder, recurrent severe without psychotic features (2) ZAC (generalized anxiety disorder): Status: Acute Code(s): F41.1 - Generalized anxiety disorder (3) Hypertension: Status: Chronic Code(s): I10 - Essential (primary) hypertension Plan HPI: patient is a 75 year old white retired female with history of HTN, MDD, anxiety disorders who is, known to [facility], walked to the ED from OP ECT due to patient's ECT/ OP provider. Per , she is reported to be struggling with psychotic depression. Patient?s also indicates that she has struggled with seemingly chronic mucus in her throat since beginning ECT. Referred to CARE team for LOC/ risk assessment. Patient herself is minimally engaged, a petite woman, primarily beneath the sheets of her bed, just her hair visible The precipitant is unclear, seems on the one hand seems to attribute it to the ECT, and moments later hs says ? sometimes she is great, she?s very high functioning.? On admission, patient fully engaged in conversation, cooperative. However, appeared to be with severe depression anxiety, not able to focus, poor memory, appeared to be confused. She can not recall she was here about 2 weeks ago. Continue talking about something stuck into her throat but denies pain. Formulation/clinical reasoning: Increase in depression, severe anxiety, declines in functioning and memory. Some medication changed lately may affect her mood/mental health. Patient will be benefit in restrictive environment for own safety, monitor for mental status changes, medication management, and continue to ECT/outpatient psychiatric services once stable. Hospital course: 11/03/25: Patient received ECT as an outpatient this morning. Dr. Shearer is her outpatient provider. Per record: medication titration down: Wellbutrin down from 300 to 150mg. Will receive 150mg x1 on 11/04/25. Then discontinue. Armodafinil was discontinued Increased Seroquel from 75mg at HS to 100mg. [id number] BID at 0830 and 1430. Norvasc 5 mg daily for hypertension. Monitor for blood pressure which was elevated on admission. Diazepam 5 mg at bedtime, and 2.5-5 mg daily p.r.n. Plan Patient on 15 minute checks for safety. Admitted to M3. CV. Work with treatment team to do collateral. Diagnostic and discharge planning. U tox positive for benzo which patient is prescribed. 11/04: Keeping to self. Patient reports feeling a little anxious and depressed ; focused on discharge. Patient stated, I just want to get out of here. I'm going to visit with my later . denies SI/HI/VH/AH. Encouraged to leave room. Continue tx plan. 11/05: continue tx plan Patient educated on: diagnosis and medication risk/benefits Reason for continued inpatient stay Substantial Risk for: med/psych decompensation Time Spent With Patient Time: Total time managing care of this patient today _15___ minutes.
[2025-11-05 20:00] VITALS: BP 136/64; PULSE 88; RESP 16; TEMP 36.8; O2SAT 96
[2025-11-06] VITALS (11 sets, daily range): BP systolic 91–147; BP diastolic 43–71; PULSE 71–85; RESP 15–24; TEMP 36.1–37; O2SAT 91–99; BMI 18.7
--- NOTE | 2025-11-06 08:01 | MHC.SHP ---
Pre-Procedural Eval Section A - 24 Hr Update-Section A only Date of Service: 11/06/25 Changes since office visit: Yes Changes in Medication and Yes Patient answered all questions; No Cold of Flu in the past 2 weeks and No New Medical Problems Section B - Complete if H&P > 30 days Chief Complaint: depression & SI Allergies: Allergies Allergy/AdvReac Type Severity Reaction Status Date / Time No Known Allergies Allergy Verified 11/03/25 11:58 Plan I have reviewed the history and physical and performed a pertinent physical examination on my patient. No changes have occurred unless specified. Time Spent With Patient Time: Total time managing care of this patient today ____ minutes.
--- NOTE | 2025-11-06 08:13 | HO.ECTPROC ---
ECT Procedure Note Diagnosis/Treatment Date of Service: 11/06/25 Diagnosis: Bipolar disorder (MRE depressed) Previous ECT Date: 11/03/25 Current Treatment Number: 3 Treatment: Series Interval Clinical Notes: Pt depressed anxious ruminating tolerated bf ect Time: Total time managing care of this patient today ____ minutes. ECT Settings Device: THYMATRON DGx Electrode Placement: Bifrontal Program/Pulse Width: 0.50 Energy Percent: 100 Seizure Duration By EEG (in seconds): 23 Medications Administration General Anesthetic: Methohexital (80) Muscle Relaxant: Succinylcholine (100) Ancillary Medications Miscillaneous Medications: Midazolam (1 mg given pre-tx due to miscommunication. Give 1 mg after in the future ) Airway Management Airway Management: Bag Mask Ventilation Treatment Recommendations Pt Tolerated Procedure w/o Issue: Yes
--- NOTE | 2025-11-06 08:16 | HO.ANESPROP2 ---
HPI - Anesthesia Eval Consult details Narrative: For ECT PMFSH Active Problems Active Problems: All Active Problems Bipolar II disorder major depressive with melancholic features (Acute) Depression (Acute) Pre-op evaluation (Acute) Thyroid nodule (Acute) Major depressive disorder in partial remission (Acute) Delirium in remission (Acute) Major depressive disorder, recurrent, severe with psychotic features (Acute) Footdrop (Acute) Major depressive disorder, recurrent severe without psychotic features (Acute) Personality disorder (Acute) Organic catatonia (Acute) Abnormal EKG (Acute) Odynophagia (Acute) Paranoia (Acute) Dysphagia (Acute) Serotonin syndrome (Acute) Ataxia (Acute) Tremors of nervous system (Acute) Major depression in full remission (Acute) Memory deficit (Acute) ADHD (attention deficit hyperactivity disorder) (Acute) ZAC (generalized anxiety disorder) (Acute) Depression (Acute) Acute bacterial conjunctivitis of both eyes (Acute) Hypercalcemia (Acute) Hypothyroidism (Acute) Leukocytosis (Acute) Hypertension (Chronic) Past Medical History Medical History Depression Hypothyroidism ZAC (generalized anxiety disorder) Hypertension ADHD (attention deficit hyperactivity disorder) Family History Family History Other No pertinent family history Family history of problems with anesthesia: No Surgical History Surgical History H/O thumb surgery H/O cone biopsy of cervix History of Problems with Anesthesia: No Social History Social History Household Members: Spouse Household Members Other:: And two cats. Housing: House Do you presently have visiting nurse or other home services: No Alcohol intake: never Patient Tobacco Use Status: Never used Tobacco Tobacco use type: Cigarette Years Smoked: 20 Smoked in Last 30 Days: No e-Cigarette/Vaping Use: Never Used Second Hand Smoke Exposure: No Use of substances other than those prescribed or required for medical reasons: Yes Substance Use Type: Marijuana Substance Use Frequency: Occasionally Last Used Substance: Weeks (ago) Currently Displaying Signs/Symptoms of Drug Intoxication Withdrawal: No Any prior treatment program specific to substance use: No Have you been hit, kicked, punched, or otherwise hurt by someone within the past year? If so, by whom?: No Do you feel safe in your current relationship?: Yes Is there a partner from a previous relationship who is making you feel unsafe now?: No Are you made to feel afraid or neglected: No Are you DNR?: No Advance Directives: No Advance Directives Information Provided: Yes Do you have thoughts of harming others: None Do you have a plan to hurt others: No Plan Recently lost weight without trying: Unsure How much weight loss: Unsure Eating poorly because of decreased appetite: Yes Nutrition screen score: 5 Nutrition Risks: No Nutritional Risk Patient : No : No Poor oral hygiene: No service: No Sexual orientation: Straight/Heterosexual Meds Allergies Allergy/AdvReac Type Severity Reaction Status Date / Time No Known Allergies Allergy Verified 11/03/25 11:58 Active Medications: Current Medications Acetaminophen (Acetaminophen 325 Mg Tablet) 650 mg PO Q6H PRN PRN Reason: Headache/Pain, Scale 1-10 Al Hydroxide/Mg Hydroxide (Magnesium Hydrox/Alum Hydrox 30 Ml Oral.Susp) 30 ml PO Q6H PRN PRN Reason: Heartburn/Nausea Amlodipine Besylate (Amlodipine Besylate 5 Mg Tablet) 5 mg PO DAILY [facility]; Protocol Last Admin: 11/05/25 09:24 Dose: 5 mg Benzocaine (Throat Lozenge, Medicated Lozenge) 1 lozenge MUCOUS MEM Q2H PRN PRN Reason: Sore Throat Last Admin: 11/03/25 20:35 Dose: 1 lozenge Bupropion HCl (Bupropion Hcl Xl 150 Mg Tab.Er.24h) 150 mg PO ONCE [facility] Diazepam (Diazepam 5 Mg Tablet) 5 mg PO BEDTIME [facility] Last Admin: 11/05/25 19:44 Dose: Not Given Fluticasone Propionate (Fluticasone Propionate Nasal 16 Gm [place]) 1 spray NOSTRIL-B BID [facility] Last Admin: 11/05/25 20:49 Dose: 1 spray Guaifenesin (Guaifenesin La 600 Mg Tab.Er.12h) 600 mg PO BID [facility] Last Admin: 11/05/25 20:48 Dose: 600 mg Magnesium Hydroxide (Milk Of Magnesia 30 Ml Oral.Susp) 30 ml PO DAILY PRN PRN Reason: Constipation Non-Formulary Medication (Diazepam) 2.5 - 5 mg PO DAILY PRN PRN Reason: anxiety Quetiapine Fumarate (Quetiapine Fumarate 25 Mg Tablet) 25 mg PO BID@0830,1430 NORBERTO Last Admin: 11/05/25 14:24 Dose: 25 mg Quetiapine Fumarate (Quetiapine Fumarate 25 Mg Tablet) 125 mg PO BEDTIME [facility]ERT[facility] Last Admin: 11/05/25 20:49 Dose: 125 mg Sodium Chloride (Sodium Chloride 0.65 % Nasal 44 Ml Sprbtl) 1 spray NOSTRIL-B Q1H PRN PRN Reason: congestion Last Admin: 11/05/25 12:35 Dose: 1 spray Trazodone HCl (Trazodone Hcl 50 Mg Tablet) 50 mg PO BEDTIME MRX1 PRN PRN Reason: Insomnia Last Admin: 11/04/25 20:45 Dose: 50 mg Home Medications ?Medication ?Instructions ?Recorded ?Confirmed ?Last Taken ?Type famotidine 40 mg tablet 40 mg PO DAILY 11/03/24 11/03/25 Unknown History amlodipine 5 mg tablet 5 mg PO DAILY 10/21/25 11/03/25 Unknown History diazepam 5 mg tablet 2.5 - 5 mg PO DAILY PRN anxiety 10/21/25 11/03/25 Unknown History diazepam 5 mg tablet 5 mg PO BEDTIME 10/21/25 11/03/25 Unknown History quetiapine 25 mg tablet 25 mg PO DAILY PRN Anxiety 10/21/25 11/03/25 10/20/25 23:00 History armodafinil 150 mg tablet 75 mg PO QAM 11/03/25 11/03/25 Unknown History bupropion HCl 150 mg tablet,12 hr 150 mg PO DAILY 11/03/25 11/03/25 Unknown History sustained-release quetiapine 100 mg tablet 100 mg PO BEDTIME 11/03/25 11/03/25 Unknown History Exam Height,Weight and Vital Signs: Height 5 ft 3 in Weight 47.8 kg Last Vital Signs Temp 97.0 F 11/06/25 07:50 Pulse 74 11/06/25 07:50 Resp 24 H 11/06/25 07:50 BP 112/61 11/06/25 07:50 Pulse Ox 92 11/06/25 07:50 O2 Del Method Room Air 11/06/25 07:50 Pertinent Lab Results Pertinent Lab Results: Laboratory Tests 11/03/25 11/03/25 12:14 15:04 WBC 5.2 RBC 4.94 Hgb 15.0 Hct 44.7 MCV 90.5 MCH 30.4 MCHC 33.6 RDW 13.0 Plt Count 271 MPV 9.1 L Immature Gran % (Auto) 0.2 Neut % (Auto) 70.4 Lymph % (Auto) 20.8 [place] % (Auto) 6.5 Eos % (Auto) 1.5 Baso % (Auto) 0.6 Lymph # (Auto) 1.1 L [place] # (Auto) 0.3 Eos # (Auto) 0.1 Baso # (Auto) 0.0 Abs Immat Gran (auto) 0.01 Absolute Neuts (auto) 3.7 Absolute Nucleated RBC 0.000 Nucleated RBC % (auto) 0.0 Sodium 143 Potassium 5.0 Chloride 108 Carbon Dioxide 31 H Anion Gap 9 L BUN 17 H Creatinine 0.94 Estim Creat Clear Calc 42.1 Estimated GFR 58 Random Glucose 107 Calcium 10.0 Total Bilirubin 0.2 AST 18 ALT 21 Alkaline Phosphatase 128 H Total Protein 6.4 L Albumin 4.2 Urine Color Yellow Urine Appearance Cloudy Urine pH 7.5 Ur Specific [place] 1.010 Urine Protein Negative Urine Glucose (UA) Negative Urine Ketones Negative Urine Blood Negative Urine Nitrite Negative Ur Leukocyte Esterase Small (1+) H Urine RBC 0-2 Urine WBC 0-5 Ur Squamous Epith Cells 6-10 Urine Bacteria 1+ Hyaline Casts 0-2 Urine Opiates Screen Not Detected Ur Buprenorphine Scrn Not Detected Ur Oxycodone Screen Not Detected Urine Methadone Screen Not Detected Urine Fentanyl Screen Not Detected Ur Barbiturates Screen Not Detected Ur Phencyclidine Scrn Not Detected Ur Amphetamines Screen Not Detected U Benzodiazepines Scrn POSITIVE H Urine Cocaine Screen Not Detected U Marijuana (THC) Screen Not Detected Ethyl Alcohol < 10 Airway Mallampati Class: II TM Dist: <=3cm Neck ROM: Full Loose/Missing/Broken Teeth: No Heart: ok Lungs: ok Assessment and Plan Assessment Anesthesia Assessment: Anesthesia Plan Discussed and Chart Reviewed Final Anesthetic Review Family History of Problems with Anesthesia: No History of Problems with Anesthesia: No NPO: Yes ASA Class: III Final Preanesthetic Review: No Changes in Pt Med Stat, Meds/Allgs Chart Reviewed, Consent Obtained/Reviewed and Anes Risks/Benef Reviewed Patient Risk: Intermediate Procedure Risk: Intermediate Anesthetic Plan Anesthetic Plan: GA and Agree w/ Assess. and Plan Disposition: Standard PACU
[2025-11-06] MEDS: guaiFENesin LA 600 MG TAB.ER.12H PO ×2 (10:21→20:14)
--- NOTE | 2025-11-06 10:34 | PC.NURSE ---
Addendum entered by Jaz Jung RN 11/06/25 10:40: Per Courtney Palacios RN in PACU, leave patch on through Thursday for ECT. Original Note: Scopolamine patch was administered in PACU and placed behind pt's left ear 11/06 815
[2025-11-06] MEDS: Throat Lozenge, Medicated LOZENGE 1 LOZENGE MUCOUS MEM (10:45)
--- NOTE | 2025-11-06 14:38 | HO.PM.IMCN ---
History of Present Illness Data of Consult Service Date: 11/06/25 Primary Care Provider: Unknown Physician HPI Reason for consult: Medical consult 75-year-old female with past medical history of bipolar 2 disorder, depression, personality disorder, cognitive impairment, hypothyroidism, hypertension, GERD, ADHD, hypercalcemia presented to the ED after completing ECT treatment and was sent down to the ED by psychiatrist. Patient was sent to the ED due to question need for inpatient care due to perseverating on phlegm and making vague state with stage IIIB better off . No leukocytosis/leukopenia, no evidence of anemia with stable H&H, elevated carbon dioxide of 31 at patient's baseline, no electrolyte abnormalities. UA reveals 1+ leukocyte esterase, 0-2 urine RBCs, 0-5 urine WBCs, 6 to skin squamous epithelial cells, 1+ bacteria however patient without urinary symptoms, likely contaminated. UTOX positive for benzos. EKG with normal. On exam she has no concerns. Reports feeling depressed and anxious. Review of Systems Review of Systems: Denies any shortness of breath, chest pain, headaches, dysuria, abdominal pain or discomfort, nausea, vomiting or diarrhea. Denies fever or chills. [facility] Medical History Depression Hypothyroidism ZAC (generalized anxiety disorder) Hypertension ADHD (attention deficit hyperactivity disorder) Family History Other No pertinent family history Surgical History H/O thumb surgery H/O cone biopsy of cervix Social History Household Members: Spouse Household Members Other:: And two cats. Housing: House Do you presently have visiting nurse or other home services: No Alcohol intake: never Patient Tobacco Use Status: Never used Tobacco Tobacco use type: Cigarette Years Smoked: 20 Smoked in Last 30 Days: No e-Cigarette/Vaping Use: Never Used Second Hand Smoke Exposure: No Use of substances other than those prescribed or required for medical reasons: Yes Substance Use Type: Marijuana Substance Use Frequency: Occasionally Last Used Substance: Weeks (ago) Currently Displaying Signs/Symptoms of Drug Intoxication Withdrawal: No Any prior treatment program specific to substance use: No Have you been hit, kicked, punched, or otherwise hurt by someone within the past year? If so, by whom?: No Do you feel safe in your current relationship?: Yes Is there a partner from a previous relationship who is making you feel unsafe now?: No Are you made to feel afraid or neglected: No Are you DNR?: No Advance Directives: No Advance Directives Information Provided: Yes Do you have thoughts of harming others: None Do you have a plan to hurt others: No Plan Recently lost weight without trying: Unsure How much weight loss: Unsure Eating poorly because of decreased appetite: Yes Nutrition screen score: 5 Nutrition Risks: No Nutritional Risk Patient : No : No Poor oral hygiene: No service: No Sexual orientation: Straight/Heterosexual Meds Allergies Allergy/AdvReac Type Severity Reaction Status Date / Time No Known Allergies Allergy Verified 11/03/25 11:58 Active Medications: Current Medications Acetaminophen (Acetaminophen 325 Mg Tablet) 650 mg PO Q6H PRN PRN Reason: Headache/Pain, Scale 1-10 Al Hydroxide/Mg Hydroxide (Magnesium Hydrox/Alum Hydrox 30 Ml Oral.Susp) 30 ml PO Q6H PRN PRN Reason: Heartburn/Nausea Amlodipine Besylate (Amlodipine Besylate 5 Mg Tablet) 5 mg PO DAILY [facility]; Protocol Last Admin: 11/06/25 10:21 Dose: 5 mg Benzocaine (Throat Lozenge, Medicated Lozenge) 1 lozenge MUCOUS MEM Q2H PRN PRN Reason: Sore Throat Last Admin: 11/06/25 10:45 Dose: 1 lozenge Bupropion HCl (Bupropion Hcl Xl 150 Mg Tab.Er.24h) 150 mg PO ONCE [facility] Diazepam (Diazepam 5 Mg Tablet) 5 mg PO BEDTIME [facility] Last Admin: 11/05/25 19:44 Dose: Not Given Fluticasone Propionate (Fluticasone Propionate Nasal 16 Gm [place]) 1 spray NOSTRIL-B BID [facility] Last Admin: 11/06/25 10:22 Dose: 1 spray Guaifenesin (Guaifenesin La 600 Mg Tab.Er.12h) 600 mg PO BID [facility] Last Admin: 11/06/25 10:21 Dose: 600 mg Magnesium Hydroxide (Milk Of Magnesia 30 Ml Oral.Susp) 30 ml PO DAILY PRN PRN Reason: Constipation Naloxone HCl (Naloxone Hcl 0.4 Mg/Ml Vial) 0.04 mg IVPUSH Q5M PRN PRN Reason: Excessive sedation or RR < 8 Non-Formulary Medication (Diazepam) 2.5 - 5 mg PO DAILY PRN PRN Reason: anxiety Quetiapine Fumarate (Quetiapine Fumarate 25 Mg Tablet) 25 mg PO BID@0830,1430 [facility] Last Admin: 11/06/25 14:11 Dose: 25 mg Quetiapine Fumarate (Quetiapine Fumarate 25 Mg Tablet) 125 mg PO BEDTIME [facility] Last Admin: 11/05/25 20:49 Dose: 125 mg Sodium Chloride (Sodium Chloride 0.65 % Nasal 44 Ml Sprbtl) 1 spray NOSTRIL-B Q1H PRN PRN Reason: congestion Last Admin: 11/05/25 12:35 Dose: 1 spray Trazodone HCl (Trazodone Hcl 50 Mg Tablet) 50 mg PO BEDTIME MRX1 PRN PRN Reason: Insomnia Last Admin: 11/04/25 20:45 Dose: 50 mg Home Medications ?Medication ?Instructions ?Recorded ?Confirmed ?Last Taken ?Type famotidine 40 mg tablet 40 mg PO DAILY 11/03/24 11/03/25 Unknown History amlodipine 5 mg tablet 5 mg PO DAILY 10/21/25 11/03/25 Unknown History diazepam 5 mg tablet 2.5 - 5 mg PO DAILY PRN anxiety 10/21/25 11/03/25 Unknown History diazepam 5 mg tablet 5 mg PO BEDTIME 10/21/25 11/03/25 Unknown History quetiapine 25 mg tablet 25 mg PO DAILY PRN Anxiety 10/21/25 11/03/25 10/20/25 23:00 History armodafinil 150 mg tablet 75 mg PO QAM 11/03/25 11/03/25 Unknown History bupropion HCl 150 mg tablet,12 hr 150 mg PO DAILY 11/03/25 11/03/25 Unknown History sustained-release quetiapine 100 mg tablet 100 mg PO BEDTIME 11/03/25 11/03/25 Unknown History Physical Exam Vital Signs and Narrative: Vital Signs: Last Vital Signs Temp 97.5 F 11/06/25 10:16 Pulse 76 11/06/25 10:16 Resp 16 11/06/25 10:16 BP 144/71 H 12/22/25 10:16 Pulse Ox 96 11/06/25 10:16 O2 Del Method Room Air 11/06/25 10:16 O2 Flow Rate 3 11/06/25 09:05 BMI result Body Mass Index 18.7 GENERAL APPEARANCE: ?AxOx4, no acute distress. HEENT: ?NC, AT. MMM. EOMI, clear conjunctiva, oropharynx clear NECK: ?Supple without lymphadenopathy.? HEART:? Normal rate and regular rhythm, normal S1/S2 LUNGS:? Lung sounds clear ABDOMEN: ?Soft, nontender, nondistended with + BS x4 EXTREMITIES: ?Without cyanosis or edema. NEUROLOGICAL: ?No focal neurological deficits Alert and oriented, moving all 4 extremities. Observed to ambulate with normal gait. Skin: ?Warm and dry without any rash. PSYCH: Calm and cooperative Results Labs 11/03/25 12:14 11/03/25 12:14 Assessment and Plan (1) Hypertension: Status: Chronic Plan 75-year-old female with a past medical history listed below presented to the emergency department with behavioral changes. Now admitted for inpatient stabilization. Bipolar 2 disorder/MDD/ADHD Treatment per psychiatric team Hypertension Continue amlodipine Thank you for allowing me to participate in the care of this patient. Will follow with you, please notify medical provider with any changes in condition or concerns.
--- NOTE | 2025-11-06 15:00 | MHC.CLN ---
CONSULT VISITED WITH PATIENT ON UNIT. PO TODAY 100% AT BREAKFAST AND LUNCH. BMI=18.7. RECEIVING ECT. STATED THAT DOES NOT TAKE CHOCOLATE DUE TO DIVERTICULOSIS. IF NEEDED, MAY PROVIDE VANILLA ENSURE.
--- NOTE | 2025-11-06 17:01 | P.PNPSI_ITS ---
Subjective Subjective Date of Service: 11/06/25 Reason For Visit: depression & SI Subjective Notes: Conditional Voluntary Interim History: pt s/p ect depressed anxious withdrawn hopeless helpless preoccupied with somatic feelings Mental Status Exam Mental Status Exam Patient Appearance: Well Grooomed Patient Orientation: Person, Place, Time and Situation Level of Consciousness: Awake and Alert Patient Behavior: Appropriate, Guarded, Cooperative and Good Eye Contact Mood Description: Depressed and Anxious Affect Description: Depressed and Apprehensive Ability to Follow Directions: Good Speech Pattern: Clear Memory Description: Intact Hallucinations: None Delusions: Not Present Thought Process: Intact Thought Content: positive for Intact Diagnostics Vital Signs (24Hr): Vital Signs - 24 hr 11/05/25 20:00 11/06/25 07:28 11/06/25 07:50 Temperature 98.2 F 97.4 F 97.0 F Pulse Rate 88 82 74 Respiratory Rate 16 15 24 H Blood Pressure 136/64 106/64 112/61 Pulse Oximetry 96 93 92 Oxygen Delivery Method Room Air Room Air Oxygen Flow Rate 11/06/25 08:50 11/06/25 08:55 11/06/25 09:00 Temperature 97.9 F Pulse Rate 85 80 76 Respiratory Rate 22 H 20 20 Blood Pressure 147/53 H 91/43 L 105/51 L Pulse Oximetry 93 91 L 94 Oxygen Delivery Method Room Air Room Air Nasal Cannula Oxygen Flow Rate 3 11/06/25 09:05 11/06/25 09:20 11/06/25 09:35 Temperature Pulse Rate 76 72 71 Respiratory Rate 20 20 20 Blood Pressure 112/53 L 110/50 L 117/61 Pulse Oximetry 96 93 94 Oxygen Delivery Method Nasal Cannula Room Air Room Air Oxygen Flow Rate 3 11/06/25 09:50 11/06/25 10:16 11/06/25 10:16 Temperature 97.2 F 97.5 F 97.5 F Pulse Rate 76 76 76 Respiratory Rate 20 16 16 Blood Pressure 121/55 L 144/71 H 144/71 H Pulse Oximetry 94 96 96 Oxygen Delivery Method Room Air Room Air Oxygen Flow Rate BMI result Body Mass Index 18.7 Labs 11/03/25 12:14 11/03/25 12:14 Medications Medications Current Medications Acetaminophen (Acetaminophen 325 Mg Tablet) 650 mg PO Q6H PRN PRN Reason: Headache/Pain, Scale 1-10 Al Hydroxide/Mg Hydroxide (Magnesium Hydrox/Alum Hydrox 30 Ml Oral.Susp) 30 ml PO Q6H PRN PRN Reason: Heartburn/Nausea Amlodipine Besylate (Amlodipine Besylate 5 Mg Tablet) 5 mg PO DAILY [facility]; Protocol Last Admin: 11/06/25 10:21 Dose: 5 mg Benzocaine (Throat Lozenge, Medicated Lozenge) 1 lozenge MUCOUS MEM Q2H PRN PRN Reason: Sore Throat Last Admin: 11/06/25 10:45 Dose: 1 lozenge Bupropion HCl (Bupropion Hcl Xl 150 Mg Tab.Er.24h) 150 mg PO ONCE [facility] Diazepam (Diazepam 5 Mg Tablet) 5 mg PO BEDTIME [facility] Last Admin: 11/05/25 19:44 Dose: Not Given Fluticasone Propionate (Fluticasone Propionate Nasal 16 Gm [place]) 1 spray NOSTRIL-B BID [facility] Last Admin: 11/06/25 10:22 Dose: 1 spray Guaifenesin (Guaifenesin La 600 Mg Tab.Er.12h) 600 mg PO BID [facility] Last Admin: 11/06/25 10:21 Dose: 600 mg Magnesium Hydroxide (Milk Of Magnesia 30 Ml Oral.Susp) 30 ml PO DAILY PRN PRN Reason: Constipation Naloxone HCl (Naloxone Hcl 0.4 Mg/Ml Vial) 0.04 mg IVPUSH Q5M PRN PRN Reason: Excessive sedation or RR < 8 Non-Formulary Medication (Diazepam) 2.5 - 5 mg PO DAILY PRN PRN Reason: anxiety Quetiapine Fumarate (Quetiapine Fumarate 25 Mg Tablet) 25 mg PO BID@0830,1430 [facility] Last Admin: 11/06/25 14:11 Dose: 25 mg Quetiapine Fumarate (Quetiapine Fumarate 25 Mg Tablet) 125 mg PO BEDTIME [facility] Last Admin: 11/05/25 20:49 Dose: 125 mg Sodium Chloride (Sodium Chloride 0.65 % Nasal 44 Ml Sprbtl) 1 spray NOSTRIL-B Q1H PRN PRN Reason: congestion Last Admin: 11/05/25 12:35 Dose: 1 spray Trazodone HCl (Trazodone Hcl 50 Mg Tablet) 50 mg PO BEDTIME MRX1 PRN PRN Reason: Insomnia Last Admin: 11/04/25 20:45 Dose: 50 mg Allergies Allergies Allergy/AdvReac Type Severity Reaction Status Date / Time No Known Allergies Allergy Verified 11/03/25 11:58 Assessment & Plan Assessment & Plan (1) Hypertension: Status: Chronic Code(s): I10 - Essential (primary) hypertension (2) Major depressive disorder, recurrent severe without psychotic features: Status: Acute Code(s): F33.2 - Major depressive disorder, recurrent severe without psychotic features Plan 75-year-old female with a past medical history listed below presented to the emergency department with behavioral changes. Now admitted for inpatient stabilization. Bipolar 2 disorder/MDD/ADHD Treatment per psychiatric team Hypertension Continue amlodipine Thank you for allowing me to participate in the care of this patient. Will follow with you, please notify medical provider with any changes in condition or concerns. Reason for continued inpatient stay Substantial Risk for: rapid decompensation and med/psych decompensation Time Spent With Patient Time: Total time managing care of this patient today ____ minutes.
[2025-11-07 08:35] VITALS: BP 118/64; PULSE 80; RESP 16; TEMP 36; O2SAT 96
[2025-11-07] MEDS: guaiFENesin LA 600 MG TAB.ER.12H PO ×2 (08:38→19:59)
[2025-11-07] MEDS: Milk of Magnesia 30 ML ORAL.SUSP PO (09:05)
[2025-11-07] MEDS: buPROPion HCl XL 150 MG TAB.ER.24H PO (10:17)
[2025-11-07] MEDS: Sodium Chloride 0.65 % Nasal 44 ML SPRBTL 1 SPRAY NOSTRIL-B (20:00)
[2025-11-08] VITALS (9 sets, daily range): BP systolic 111–146; BP diastolic 60–71; PULSE 68–84; RESP 11–22; TEMP 36.2–36.7; O2SAT 95–97
--- NOTE | 2025-11-08 07:38 | HO.PSYCHPN ---
Subjective Subjective Date of Service: 11/07/25 Reason For Visit: depression & SI Subjective Notes: Conditional Voluntary Healthcare Proxy: No Interim History: pt anxious preoccupied less labile Diagnostics Vital Signs (24Hr): Vital Signs - 24 hr 11/07/25 08:35 Temperature 96.8 F Pulse Rate 80 Respiratory Rate 16 Blood Pressure 118/64 Pulse Oximetry 96 Oxygen Delivery Method Room Air BMI result Body Mass Index 18.7 Labs 11/03/25 12:14 11/03/25 12:14 Medications Medications Current Medications Acetaminophen (Acetaminophen 325 Mg Tablet) 650 mg PO Q6H PRN PRN Reason: Headache/Pain, Scale 1-10 Al Hydroxide/Mg Hydroxide (Magnesium Hydrox/Alum Hydrox 30 Ml Oral.Susp) 30 ml PO Q6H PRN PRN Reason: Heartburn/Nausea Amlodipine Besylate (Amlodipine Besylate 5 Mg Tablet) 5 mg PO DAILY [facility]; Protocol Last Admin: 11/07/25 08:37 Dose: 5 mg Benzocaine (Throat Lozenge, Medicated Lozenge) 1 lozenge MUCOUS MEM Q2H PRN PRN Reason: Sore Throat Last Admin: 11/06/25 10:45 Dose: 1 lozenge Bupropion HCl (Bupropion Hcl Xl 150 Mg Tab.Er.24h) 150 mg PO DAILY [facility] Last Admin: 11/07/25 10:17 Dose: 150 mg Diazepam (Diazepam 5 Mg Tablet) 5 mg PO BEDTIME [facility] Last Admin: 11/07/25 20:33 Dose: Not Given Fluticasone Propionate (Fluticasone Propionate Nasal 16 Gm [place]) 1 spray NOSTRIL-B BID [facility] Last Admin: 11/07/25 21:29 Dose: Not Given Guaifenesin (Guaifenesin La 600 Mg Tab.Er.12h) 600 mg PO BID [facility] Last Admin: 11/07/25 19:59 Dose: 600 mg Magnesium Hydroxide (Milk Of Magnesia 30 Ml Oral.Susp) 30 ml PO DAILY PRN PRN Reason: Constipation Last Admin: 11/07/25 09:05 Dose: 30 ml Naloxone HCl (Naloxone Hcl 0.4 Mg/Ml Vial) 0.04 mg IVPUSH Q5M PRN PRN Reason: Excessive sedation or RR < 8 Non-Formulary Medication (Diazepam) 2.5 - 5 mg PO DAILY PRN PRN Reason: anxiety Quetiapine Fumarate (Quetiapine Fumarate 25 Mg Tablet) 25 mg PO BID@0830,1430 [facility] Last Admin: 11/07/25 15:12 Dose: 25 mg Quetiapine Fumarate (Quetiapine Fumarate 25 Mg Tablet) 125 mg PO BEDTIME [facility] Last Admin: 11/07/25 19:58 Dose: 125 mg Sodium Chloride (Sodium Chloride 0.65 % Nasal 44 Ml Sprbtl) 1 spray NOSTRIL-B Q1H PRN PRN Reason: congestion Last Admin: 11/07/25 20:00 Dose: 1 spray Trazodone HCl (Trazodone Hcl 50 Mg Tablet) 50 mg PO BEDTIME MRX1 PRN PRN Reason: Insomnia Last Admin: 11/07/25 19:59 Dose: 50 mg Allergies Allergies Allergy/AdvReac Type Severity Reaction Status Date / Time No Known Allergies Allergy Verified 11/03/25 11:58 Assessment & Plan Assessment & Plan (1) Hypertension: Status: Chronic Code(s): I10 - Essential (primary) hypertension Plan 75-year-old female with a past medical history listed below presented to the emergency department with behavioral changes. Now admitted for inpatient stabilization. Bipolar 2 disorder/MDD/ADHD Treatment per psychiatric team Hypertension Continue amlodipine Thank you for allowing me to participate in the care of this patient. Will follow with you, please notify medical provider with any changes in condition or concerns. Time Spent With Patient Time: Total time managing care of this patient today ____ minutes.
--- NOTE | 2025-11-08 07:38 | MHC.SHP ---
Pre-Procedural Eval Section A - 24 Hr Update-Section A only Date of Service: 11/08/25 The patient is an INPATIENT: Yes Changes since office visit: Yes Changes in Medication and Yes Patient answered all questions; No Cold of Flu in the past 2 weeks and No New Medical Problems The patient has been examined within 24 hours of the surgical procedure. The History & Physical has been completed within 30 days and I have reviewed it.: Yes Section B - Complete if H&P > 30 days Chief Complaint: depression & SI Allergies: Allergies Allergy/AdvReac Type Severity Reaction Status Date / Time No Known Allergies Allergy Verified 11/03/25 11:58 Plan I have reviewed the history and physical and performed a pertinent physical examination on my patient. No changes have occurred unless specified. Time Spent With Patient Time: Total time managing care of this patient today ____ minutes.
--- NOTE | 2025-11-08 08:02 | HO.ECTPROC ---
ECT Procedure Note Diagnosis/Treatment Date of Service: 11/08/25 Diagnosis: Bipolar disorder Previous ECT Date: 11/06/25 Current Treatment Number: 4 Treatment: Series Interval Clinical Notes: Pt depressed anxious ruminating tolerated bf ect states ok to transition home Time: Total time managing care of this patient today 30____ minutes. ECT Settings Device: THYMATRON DGx Electrode Placement: Bifrontal Program/Pulse Width: 0.50 Energy Percent: 100 Seizure Duration By EEG (in seconds): 21 Medications Administration General Anesthetic: Methohexital (80) Muscle Relaxant: Succinylcholine (100) Ancillary Medications Miscillaneous Medications: Midazolam (1 mg given pre-tx due to miscommunication. Give 1 mg after in the future ) Airway Management Airway Management: Bag Mask Ventilation Treatment Recommendations Notes: scopalamine Pt Tolerated Procedure w/o Issue: Yes
--- NOTE | 2025-11-08 08:13 | HO.ANESPROP2 ---
[facility] Active Problems Active Problems: All Active Problems (Updated 11/03/25 @ 15:55 by Bridget Rojas PA-C) Bipolar II disorder major depressive with melancholic features (Acute) Depression (Acute) Pre-op evaluation (Acute) Thyroid nodule (Acute) Major depressive disorder in partial remission (Acute) Delirium in remission (Acute) Major depressive disorder, recurrent, severe with psychotic features (Acute) Footdrop (Acute) Major depressive disorder, recurrent severe without psychotic features (Acute) Personality disorder (Acute) Organic catatonia (Acute) Abnormal EKG (Acute) Odynophagia (Acute) Paranoia (Acute) Dysphagia (Acute) Serotonin syndrome (Acute) Ataxia (Acute) Tremors of nervous system (Acute) Major depression in full remission (Acute) Memory deficit (Acute) ADHD (attention deficit hyperactivity disorder) (Acute) ZAC (generalized anxiety disorder) (Acute) Depression (Acute) Acute bacterial conjunctivitis of both eyes (Acute) Hypercalcemia (Acute) Hypothyroidism (Acute) Leukocytosis (Acute) Hypertension (Chronic) Past Medical History Medical History Depression Hypothyroidism ZAC (generalized anxiety disorder) Hypertension ADHD (attention deficit hyperactivity disorder) Functional capacity: independent ambulation Family History Family History Other No pertinent family history Family history of problems with anesthesia: No Surgical History Surgical History H/O thumb surgery H/O cone biopsy of cervix History of Problems with Anesthesia: No Social History Social History Household Members: Spouse Household Members Other:: And two cats. Housing: House Do you presently have visiting nurse or other home services: No Alcohol intake: never Patient Tobacco Use Status: Never used Tobacco Tobacco use type: Cigarette Years Smoked: 20 e-Cigarette/Vaping Use: Never Used Second Hand Smoke Exposure: No Substance Use Type: Marijuana service: No Sexual orientation: Straight/Heterosexual Meds Allergies Allergy/AdvReac Type Severity Reaction Status Date / Time No Known Allergies Allergy Verified 11/03/25 11:58 Active Medications: Current Medications Acetaminophen (Acetaminophen 325 Mg Tablet) 650 mg PO Q6H PRN PRN Reason: Headache/Pain, Scale 1-10 Al Hydroxide/Mg Hydroxide (Magnesium Hydrox/Alum Hydrox 30 Ml Oral.Susp) 30 ml PO Q6H PRN PRN Reason: Heartburn/Nausea Amlodipine Besylate (Amlodipine Besylate 5 Mg Tablet) 5 mg PO DAILY [facility]; Protocol Last Admin: 11/07/25 08:37 Dose: 5 mg Benzocaine (Throat Lozenge, Medicated Lozenge) 1 lozenge MUCOUS MEM Q2H PRN PRN Reason: Sore Throat Last Admin: 11/06/25 10:45 Dose: 1 lozenge Bupropion HCl (Bupropion Hcl Xl 150 Mg Tab.Er.24h) 150 mg PO DAILY [facility] Last Admin: 11/07/25 10:17 Dose: 150 mg Diazepam (Diazepam 5 Mg Tablet) 5 mg PO BEDTIME [facility] Last Admin: 11/07/25 20:33 Dose: Not Given Fluticasone Propionate (Fluticasone Propionate Nasal 16 Gm [place]) 1 spray NOSTRIL-B BID [facility] Last Admin: 11/07/25 21:29 Dose: Not Given Guaifenesin (Guaifenesin La 600 Mg Tab.Er.12h) 600 mg PO BID [facility] Last Admin: 11/07/25 19:59 Dose: 600 mg Magnesium Hydroxide (Milk Of Magnesia 30 Ml Oral.Susp) 30 ml PO DAILY PRN PRN Reason: Constipation Last Admin: 11/07/25 09:05 Dose: 30 ml Naloxone HCl (Naloxone Hcl 0.4 Mg/Ml Vial) 0.04 mg IVPUSH Q5M PRN PRN Reason: Excessive sedation or RR < 8 Non-Formulary Medication (Diazepam) 2.5 - 5 mg PO DAILY PRN PRN Reason: anxiety Quetiapine Fumarate (Quetiapine Fumarate 25 Mg Tablet) 25 mg PO BID@0830,1430 [facility] Last Admin: 11/07/25 15:12 Dose: 25 mg Quetiapine Fumarate (Quetiapine Fumarate 25 Mg Tablet) 125 mg PO BEDTIME [facility] Last Admin: 11/07/25 19:58 Dose: 125 mg Sodium Chloride (Sodium Chloride 0.65 % Nasal 44 Ml Sprbtl) 1 spray NOSTRIL-B Q1H PRN PRN Reason: congestion Last Admin: 11/07/25 20:00 Dose: 1 spray Trazodone HCl (Trazodone Hcl 50 Mg Tablet) 50 mg PO BEDTIME MRX1 PRN PRN Reason: Insomnia Last Admin: 11/07/25 19:59 Dose: 50 mg Home Medications ?Medication ?Instructions ?Recorded ?Confirmed ?Last Taken ?Type famotidine 40 mg tablet 40 mg PO DAILY 11/03/24 11/03/25 Unknown History amlodipine 5 mg tablet 5 mg PO DAILY 10/21/25 11/03/25 Unknown History diazepam 5 mg tablet 2.5 - 5 mg PO DAILY PRN anxiety 10/21/25 11/03/25 Unknown History diazepam 5 mg tablet 5 mg PO BEDTIME 10/21/25 11/03/25 Unknown History quetiapine 25 mg tablet 25 mg PO DAILY PRN Anxiety 10/21/25 11/03/25 10/20/25 23:00 History armodafinil 150 mg tablet 75 mg PO QAM 11/03/25 11/03/25 Unknown History bupropion HCl 150 mg tablet,12 hr 150 mg PO DAILY 11/03/25 11/03/25 Unknown History sustained-release quetiapine 100 mg tablet 100 mg PO BEDTIME 11/03/25 11/03/25 Unknown History Exam Exam Date and Time: 11/08/25 Height,Weight and Vital Signs: Height 5 ft 3 in Weight 47.8 kg Last Vital Signs Temp 96.8 F 11/07/25 08:35 Pulse 80 11/07/25 08:35 Resp 16 11/07/25 08:35 BP 118/64 11/07/25 08:35 Pulse Ox 96 11/07/25 08:35 O2 Del Method Room Air 11/07/25 08:35 O2 Flow Rate 3 11/06/25 09:05 Pertinent Lab Results Pertinent Lab Results: Laboratory Tests 11/03/25 11/03/25 12:14 15:04 WBC 5.2 RBC 4.94 Hgb 15.0 Hct 44.7 MCV 90.5 MCH 30.4 MCHC 33.6 RDW 13.0 Plt Count 271 MPV 9.1 L Immature Gran % (Auto) 0.2 Neut % (Auto) 70.4 Lymph % (Auto) 20.8 [place] % (Auto) 6.5 Eos % (Auto) 1.5 Baso % (Auto) 0.6 Lymph # (Auto) 1.1 L [place] # (Auto) 0.3 Eos # (Auto) 0.1 Baso # (Auto) 0.0 Abs Immat Gran (auto) 0.01 Absolute Neuts (auto) 3.7 Absolute Nucleated RBC 0.000 Nucleated RBC % (auto) 0.0 Sodium 143 Potassium 5.0 Chloride 108 Carbon Dioxide 31 H Anion Gap 9 L BUN 17 H Creatinine 0.94 Estim Creat Clear Calc 42.1 Estimated GFR 58 Random Glucose 107 Calcium 10.0 Total Bilirubin 0.2 AST 18 ALT 21 Alkaline Phosphatase 128 H Total Protein 6.4 L Albumin 4.2 Urine Color Yellow Urine Appearance Cloudy Urine pH 7.5 Ur Specific [place] 1.010 Urine Protein Negative Urine Glucose (UA) Negative Urine Ketones Negative Urine Blood Negative Urine Nitrite Negative Ur Leukocyte Esterase Small (1+) H Urine RBC 0-2 Urine WBC 0-5 Ur Squamous Epith Cells 6-10 Urine Bacteria 1+ Hyaline Casts 0-2 Urine Opiates Screen Not Detected Ur Buprenorphine Scrn Not Detected Ur Oxycodone Screen Not Detected Urine Methadone Screen Not Detected Urine Fentanyl Screen Not Detected Ur Barbiturates Screen Not Detected Ur Phencyclidine Scrn Not Detected Ur Amphetamines Screen Not Detected U Benzodiazepines Scrn POSITIVE H Urine Cocaine Screen Not Detected U Marijuana (THC) Screen Not Detected Ethyl Alcohol < 10 Airway TM Dist: >3cm Neck ROM: Full Loose/Missing/Broken Teeth: No Heart: normal Lungs: normal Other: normal Assessment and Plan Assessment Anesthesia Assessment: Anesthesia Plan Discussed Final Anesthetic Review Family History of Problems with Anesthesia: No History of Problems with Anesthesia: No ASA Class: III Final Preanesthetic Review: No Changes in Pt Med Stat, Meds/Allgs Chart Reviewed, Consent Obtained/Reviewed and Anes Risks/Benef Reviewed Patient Risk: Intermediate Procedure Risk: Low Anesthetic Plan Anesthetic Plan: GA Disposition: Standard PACU
[2025-11-08] MEDS: buPROPion HCl XL 150 MG TAB.ER.24H PO (09:14)
[2025-11-08] MEDS: guaiFENesin LA 600 MG TAB.ER.12H PO (09:15)
--- NOTE | 2025-11-08 10:27 | PM.PSYDC ---
DS: Providers Provider Date of admission: 11/03/25 15:30 Date of discharge: 11/08/25 Primary care physician: Unknown Physician DS: Diagnosis Discharge Diagnosis (1) Major depressive disorder, recurrent severe without psychotic features: Status: Acute (2) ZAC (generalized anxiety disorder): Status: Acute (3) ADHD (attention deficit hyperactivity disorder): Status: Acute (4) Hypertension: Status: Chronic DS: Medications Discharge Medications Home Medications: Home Medications ?Medication ?Instructions ?Recorded ?Confirmed famotidine 40 mg tablet 40 mg PO DAILY 11/03/24 11/03/25 amlodipine 5 mg tablet 5 mg PO DAILY 10/21/25 11/03/25 diazepam 5 mg tablet 2.5 - 5 mg PO DAILY PRN anxiety 10/21/25 11/03/25 diazepam 5 mg tablet 5 mg PO BEDTIME 10/21/25 11/03/25 Previous Rx's ?Medication ?Instructions ?Recorded bupropion HCl 150 mg 24 hr tablet, 150 mg PO DAILY 30 days #30 tabs 11/08/25 extended release lithium carbonate 300 mg capsule 300 mg PO BEDTIME #30 caps 11/08/25 quetiapine 150 mg tablet 150 mg PO BEDTIME 30 days #30 tabs 11/08/25 quetiapine 25 mg tablet 25 mg PO BID@0830,1430 30 days #60 11/08/25 tabs Mental Status Exam Mental Status Exam Narrative: atient: Miriam Valencia MR#: [id number] : 1950 Acct:[id number] Age/Sex: 75 / F Loc: [id number] 319-[address]: Caro Zee MD cc: Yovany Shearer MD; Janet Prather NP~ HPI Date of Service: 11/03/25 Chief Complaint: depression & SI Sources of Information: patient interviewed, chart reviewed and crisis/core team assessment reviewed HPI Subjective Notes: Pollack Warning and Conditional Voluntary Guardianship: No Medical Problems Affecting Mental Status: No Narrative: Per care team: patient is a 75 year old white retired female with history of HTN, MDD, anxiety disorders who is, known [place] [facility], walked to the ED from OP ECT due to patient's ECT/ OP provider. Per , she is reported to be struggling with psychotic depression. Patient?s also indicates that she has struggled with seemingly chronic mucus in her throat since beginning ECT. Referred to CARE team for LOC/ risk assessment. Patient herself is minimally engaged, a petite woman, primarily beneath the sheets of her bed, just her hair visible The precipitant is unclear, seems on the one hand seems to attribute it to the ECT, and moments later hs says ? sometimes she is great, she?s very high functioning.? On m3: Patient was struggle regarding deciding to sign herself in here. Reports main reason for being in he is I was receiving ECT this morning. I got phlegm stuck in my throat. And I come here due to the recommendation of Dr. Shearer that I should stay . She was not sure if she should be here. She thinks she only be staying here for 3 days. Reports her throat issue has been there for awhile but is got was this morning and she does not know why. Denies pain on the throat. Denies SI, SIB/HI/AVH, denies suicide attempts, reported that she never having suicidal thoughts in her life. But reports severe depression anxiety rated them 8+/10. Reported that she has been sleeping well, but appetite has down . She lost about 4 lb in the past month. She appears to be very skinny. Reported that she is supposed to drink ensure but she has not yet lately. Agreed to get Ensure t.i.d. why she is here with us. Denies medical conditions except for hypertensive. She can not recall that she was here back in October 20. She said that the fact that she can not recall that is make also make her anxious. Sometimes reported that she feels confused . Legal issues: Denies current legal issues Trauma history: Denies trauma history Family history: Reports her son has bipolar but denies any substance use in the family. Substance use: Denies Treatment history: She denies history of inpatient admissions. However per record, this is her 3rd admission here on [facility]. She has Dr. Shearer as an outpatient provider. Schedule is flexible. Reported that she had a therapist via telehealth which is helpful. Patient is A&O x3, wearing casual attire, very anxious but cooperative, depressed, anxious somewhat with underlying irritability, appeared to be forgetful. Trouble with memory. ? congnitive decline. Thought processes is disorganized. Speech is within normal limit, soft spoken. Fair eye contact, congruent with mood. Constricted affect. Thought content is ambivalence regarding a treatment, no SI/SIB /HI/AVH, no CAH. Does not appeared to be paranoid, delusions. Fair eye contact. Poor judgment and insight. Past Psychiatric History: -Pt sees Dr. Shearer in OP setting . Last ECT 11/03/2025. Last inpatient episode 2022 and 10/20/25 as per records. Reports 1st psychiatric admission in her 40s approximately. First ECT sessions approximately 10 years ago. Also has a therapist via telehealth. Denies any history of suicide attempts or psychosis. Medical Evaluation Reviewed: Yes [facility] Medical History Depression Hypothyroidism ZAC (generalized anxiety disorder) Hypertension ADHD (attention deficit hyperactivity disorder) Surgical History H/O thumb surgery H/O cone biopsy of cervix Family History: Reports her son has bipolar but denies any substance use in the family. 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. Both retired. Occasional marijuana use. Substance History: Denies Trauma History: Denies Diagnostics Vital Signs (24Hr): Vital Signs - 24 hr 11/03/25 11:53 11/03/25 12:04 11/03/25 19:15 Temperature 97.8 F 97.7 F Pulse Rate 85 81 Respiratory Rate 14 14 16 Blood Pressure 158/95 H 166/80 H Pulse Oximetry 97 98 Oxygen Delivery Method Room Air Room Air BMI result Body Mass Index 18.7 Labs 11/03/25 12:14 document embedded image 11/03/25 12:14 document embedded image Labs: Laboratory Results - last 48 hr 11/03/25 11/03/25 12:14 15:04 WBC 5.2 RBC 4.94 Hgb 15.0 Hct 44.7 MCV 90.5 MCH 30.4 MCHC 33.6 RDW 13.0 Plt Count 271 MPV 9.1 L Immature Gran % (Auto) 0.2 Neut % (Auto) 70.4 Lymph % (Auto) 20.8 [place] % (Auto) 6.5 Eos % (Auto) 1.5 Baso % (Auto) 0.6 Lymph # (Auto) 1.1 L [place] # (Auto) 0.3 Eos # (Auto) 0.1 Baso # (Auto) 0.0 Abs Immat Gran (auto) 0.01 Absolute Neuts (auto) 3.7 Absolute Nucleated RBC 0.000 Nucleated RBC % (auto) 0.0 Sodium 143 Potassium 5.0 Chloride 108 Carbon Dioxide 31 H Anion Gap 9 L BUN 17 H Creatinine 0.94 Estim Creat Clear Calc 42.1 Estimated GFR 58 Random Glucose 107 Calcium 10.0 Total Bilirubin 0.2 AST 18 ALT 21 Alkaline Phosphatase 128 H Total Protein 6.4 L Albumin 4.2 Urine Color Yellow Urine Appearance Cloudy Urine pH 7.5 Ur Specific [place] 1.010 Urine Protein Negative Urine Glucose (UA) Negative Urine Ketones Negative Urine Blood Negative Urine Nitrite Negative Ur Leukocyte Esterase Small (1+) H Urine RBC 0-2 Urine WBC 0-5 Ur Squamous Epith Cells 6-10 Urine Bacteria 1+ Hyaline Casts 0-2 Urine Opiates Screen Not Detected Ur Buprenorphine Scrn Not Detected Ur Oxycodone Screen Not Detected Urine Methadone Screen Not Detected Urine Fentanyl Screen Not Detected Ur Barbiturates Screen Not Detected Ur Phencyclidine Scrn Not Detected Ur Amphetamines Screen Not Detected U Benzodiazepines Scrn POSITIVE H Urine Cocaine Screen Not Detected U Marijuana (THC) Screen Not Detected Ethyl Alcohol < 10 Imaging Radiology Impressions: Normal sinus rhythm Normal ECG When compared with ECG of 20-Oct-2025 15:06, No significant change was found Meds/Allergies Meds Home Medications Medication Instructions Recorded Confirmed Type famotidine 40 mg tablet 40 mg PO DAILY 11/03/24 11/03/25 History amlodipine 5 mg tablet 5 mg PO DAILY 10/21/25 11/03/25 History diazepam 5 mg tablet 2.5 - 5 mg PO DAILY PRN anxiety 10/21/25 11/03/25 History diazepam 5 mg tablet 5 mg PO BEDTIME 10/21/25 11/03/25 History quetiapine 25 mg tablet 25 mg PO DAILY PRN Anxiety 10/21/25 11/03/25 History armodafinil 150 mg tablet 75 mg PO QAM 11/03/25 11/03/25 History bupropion HCl 150 mg tablet,12 hr 150 mg PO DAILY 11/03/25 11/03/25 History sustained-release quetiapine 100 mg tablet 100 mg PO BEDTIME 11/03/25 11/03/25 History Allergies Allergies Allergy/AdvReac Type Severity Reaction Status Date / Time No Known Allergies Allergy Verified 11/03/25 11:58 Mental Status Exam Mental Status Exam Narrative: Patient is A&O x3, wearing casual attire, very anxious but cooperative, depressed, anxious somewhat with underlying irritability, appeared to be forgetful. Trouble with memory. ? congnitive decline. Thought processes is disorganized. Speech is within normal limit, soft spoken. Fair eye contact, congruent with mood. Constricted affect. Thought content is ambivalence regarding a treatment, no SI/SIB /HI/AVH, no CAH. Does not appeared to be paranoid, delusions. Fair eye contact. Poor judgment and insight. Assessment & Plan Assessment & Plan (1) Major depressive disorder, recurrent severe without psychotic features: Status: Acute Code(s): F33.2 - Major depressive disorder, recurrent severe without psychotic features (2) ZAC (generalized anxiety disorder): Status: Acute Code(s): F41.1 - Generalized anxiety disorder (3) Hypertension: Status: Chronic Code(s): I10 - Essential (primary) hypertension Plan HPI: patient is a 75 year old white retired female with history of HTN, MDD, anxiety disorders who is, known to [facility], walked to the ED from OP ECT due to patient's ECT/ OP provider. Per , she is reported to be struggling with psychotic depression. Patient?s also indicates that she has struggled with seemingly chronic mucus in her throat since beginning ECT. Referred to CARE team for LOC/ risk assessment. Patient herself is minimally engaged, a petite woman, primarily beneath the sheets of her bed, just her hair visible The precipitant is unclear, seems on the one hand seems to attribute it to the ECT, and moments later hs says ? sometimes she is great, she?s very high functioning.? On admission, patient fully engaged in conversation, cooperative. However, appeared to be with severe depression anxiety, not able to focus, poor memory, appeared to be confused. She can not recall she was here about 2 weeks ago. Continue talking about something stuck into her throat but denies pain. Formulation/clinical reasoning: Increase in depression, severe anxiety, declines in functioning and memory. Some medication changed lately may affect her mood/mental health. Patient will be benefit in restrictive environment for own safety, monitor for mental status changes, medication management, and continue to ECT/outpatient psychiatric services once stable. Hospital course: 11/03/25: Patient received ECT as an outpatient this morning. Dr. Shearer is her outpatient provider. Per record: medication titration down: Wellbutrin down from 300 to 150mg. Will receive 150mg x1 on 11/04/25. Then discontinue. Armodafinil was discontinued Increased Seroquel from 75mg at HS to 100mg. [id number] BID at 0830 and 1430. Norvasc 5 mg daily for hypertension. Monitor for blood pressure which was elevated on admission. Diazepam 5 mg at bedtime, and 2.5-5 mg daily p.r.n. Plan Patient on 15 minute checks for safety. Admitted to [facility]. CV. Work with treatment team to do collateral. Diagnostic and discharge planning. U tox positive for benzo which patient is prescribed. Patient educated on: diagnosis, medication risk/benefits and therapeutic strategies Informed Consent: understands and further education needed Reason for continued inpatient stay Substantial Risk for: med/psych decompensation Statement Statement: I have reviewed the history and physical and performed a pertinent examination on my patient. No changes have occurred unless specified. If the History and Physical was not performed prior to admission, the Hospitalist's service will be consulted for completing the admission physical. Time Spent With Patient Time: Total time managing care of this patient today ____ minutes. 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 Patient been increasingly agitated was hope that perhaps this was related to are modafinil and increase Wellbutrin. Are modafinil was discontinued at present Wellbutrin lowered to 150 mg Seroquel increased gradually to 50 in the morning 150 mg at bedtime. Patient was calmer less depressed and preoccupied time of discharge. Should total of 2 inpatient ECT treatments and at the time of discharge was started on lithium 300 mg at bedtime to hopefully help prevent the patient's frequent cycling in and out from normalcy to depression. No classic clear nallely Data Data Completed and Pending Completed studies during hospitalization [Text1]: 11/03/25 11/03/25 12:14 15:04 WBC 5.2 RBC 4.94 Hgb 15.0 Hct 44.7 MCV 90.5 MCH 30.4 MCHC 33.6 RDW 13.0 Plt Count 271 MPV 9.1 L Immature Gran % (Auto) 0.2 Neut % (Auto) 70.4 Lymph % (Auto) 20.8 [place] % (Auto) 6.5 Eos % (Auto) 1.5 Baso % (Auto) 0.6 Lymph # (Auto) 1.1 L [place] # (Auto) 0.3 Eos # (Auto) 0.1 Baso # (Auto) 0.0 Abs Immat Gran (auto) 0.01 Absolute Neuts (auto) 3.7 Absolute Nucleated RBC 0.000 Nucleated RBC % (auto) 0.0 Sodium 143 Potassium 5.0 Chloride 108 Carbon Dioxide 31 H Anion Gap 9 L BUN 17 H Creatinine 0.94 Estim Creat Clear Calc 42.1 Estimated GFR 58 Random Glucose 107 Calcium 10.0 Total Bilirubin 0.2 AST 18 ALT 21 Alkaline Phosphatase 128 H Total Protein 6.4 L Albumin 4.2 Urine Color Yellow Urine Appearance Cloudy Urine pH 7.5 Ur Specific [place] 1.010 Urine Protein Negative Urine Glucose (UA) Negative Urine Ketones Negative Urine Blood Negative Urine Nitrite Negative Ur Leukocyte Esterase Small (1+) H Urine RBC 0-2 Urine WBC 0-5 Ur Squamous Epith Cells 6-10 Urine Bacteria 1+ Hyaline Casts 0-2 Urine Opiates Screen Not Detected Ur Buprenorphine Scrn Not Detected Ur Oxycodone Screen Not Detected Urine Methadone Screen Not Detected Urine Fentanyl Screen Not Detected Ur Barbiturates Screen Not Detected Ur Phencyclidine Scrn Not Detected Ur Amphetamines Screen Not Detected U Benzodiazepines Scrn POSITIVE H Urine Cocaine Screen Not Detected U Marijuana (THC) Screen Not Detected Ethyl Alcohol < 10 11/03/25 15:39 Urine clean catch Urine Culture - Final DS: Summary Hospital Course Hospital Course: atient: Miriam Valencia MR#: [id number] : 1950 Acct:[id number] Age/Sex: 75 / F Loc: [id number] 319-[address]: Caro Zee MD cc: Yovany Shearer MD; Janet Prather MATERIAL DAMAGE ADJUSTER~ HPI Date of Service: 11/03/25 Chief Complaint: depression & SI Sources of Information: patient interviewed, chart reviewed and crisis/core team assessment reviewed HPI Subjective Notes: [place] Warning and Conditional Voluntary Guardianship: No Medical Problems Affecting Mental Status: No Narrative: Per care team: patient is a 75 year old white retired female with history of HTN, MDD, anxiety disorders who is, known to [facility], walked to the ED from OP ECT due to patient's ECT/ OP provider. Per , she is reported to be struggling with psychotic depression. Patient?s also indicates that she has struggled with seemingly chronic mucus in her throat since beginning ECT. Referred to CARE team for LOC/ risk assessment. Patient herself is minimally engaged, a petite woman, primarily beneath the sheets of her bed, just her hair visible The precipitant is unclear, seems on the one hand seems to attribute it to the ECT, and moments later hs says ? sometimes she is great, she?s very high functioning.? On m3: Patient was struggle regarding deciding to sign herself in here. Reports main reason for being in he is I was receiving ECT this morning. I got phlegm stuck in my throat. And I come here due to the recommendation of Dr. Shearer that I should stay . She was not sure if she should be here. She thinks she only be staying here for 3 days. Reports her throat issue has been there for awhile but is got was this morning and she does not know why. Denies pain on the throat. Denies SI, SIB/HI/AVH, denies suicide attempts, reported that she never having suicidal thoughts in her life. But reports severe depression anxiety rated them 8+/10. Reported that she has been sleeping well, but appetite has down . She lost about 4 lb in the past month. She appears to be very skinny. Reported that she is supposed to drink ensure but she has not yet lately. Agreed to get Ensure t.i.d. why she is here with us. Denies medical conditions except for hypertensive. She can not recall that she was here back in October 20. She said that the fact that she can not recall that is make also make her anxious. Sometimes reported that she feels confused . Legal issues: Denies current legal issues Trauma history: Denies trauma history Family history: Reports her son has bipolar but denies any substance use in the family. Substance use: Denies Treatment history: She denies history of inpatient admissions. However per record, this is her 3rd admission here on [place] She has Dr. Shearer as an outpatient provider. Schedule is flexible. Reported that she had a therapist via telehealth which is helpful. Patient is A&O x3, wearing casual attire, very anxious but cooperative, depressed, anxious somewhat with underlying irritability, appeared to be forgetful. Trouble with memory. ? congnitive decline. Thought processes is disorganized. Speech is within normal limit, soft spoken. Fair eye contact, congruent with mood. Constricted affect. Thought content is ambivalence regarding a treatment, no SI/SIB /HI/AVH, no CAH. Does not appeared to be paranoid, delusions. Fair eye contact. Poor judgment and insight. Past Psychiatric History: -Pt sees Dr. Shearer in OP setting . Last ECT 11/03/2025. Last inpatient episode 2022 and 10/20/25 as per records. Reports 1st psychiatric admission in her 40s approximately. First ECT sessions approximately 10 years ago. Also has a therapist via telehealth. Denies any history of suicide attempts or psychosis. Medical Evaluation Reviewed: Yes [facility] Medical History Depression Hypothyroidism ZAC (generalized anxiety disorder) Hypertension ADHD (attention deficit hyperactivity disorder) Surgical History H/O thumb surgery H/O cone biopsy of cervix Family History: Reports her son has bipolar but denies any substance use in the family. 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. Both retired. Occasional marijuana use. Substance History: Denies Trauma History: Denies Diagnostics Vital Signs (24Hr): Vital Signs - 24 hr 11/03/25 11:53 11/03/25 12:04 11/03/25 19:15 Temperature 97.8 F 97.7 F Pulse Rate 85 81 Respiratory Rate 14 14 16 Blood Pressure 158/95 H 166/80 H Pulse Oximetry 97 98 Oxygen Delivery Method Room Air Room Air BMI result Body Mass Index 18.7 Labs 11/03/25 12:14 document embedded image 11/03/25 12:14 document embedded image Labs: Laboratory Results - last 48 hr 11/03/25 11/03/25 12:14 15:04 WBC 5.2 RBC 4.94 Hgb 15.0 Hct 44.7 MCV 90.5 MCH 30.4 MCHC 33.6 RDW 13.0 Plt Count 271 MPV 9.1 L Immature Gran % (Auto) 0.2 Neut % (Auto) 70.4 Lymph % (Auto) 20.8 [place] % (Auto) 6.5 Eos % (Auto) 1.5 Baso % (Auto) 0.6 Lymph # (Auto) 1.1 L [place] # (Auto) 0.3 Eos # (Auto) 0.1 Baso # (Auto) 0.0 Abs Immat Gran (auto) 0.01 Absolute Neuts (auto) 3.7 Absolute Nucleated RBC 0.000 Nucleated RBC % (auto) 0.0 Sodium 143 Potassium 5.0 Chloride 108 Carbon Dioxide 31 H Anion Gap 9 L BUN 17 H Creatinine 0.94 Estim Creat Clear Calc 42.1 Estimated GFR 58 Random Glucose 107 Calcium 10.0 Total Bilirubin 0.2 AST 18 ALT 21 Alkaline Phosphatase 128 H Total Protein 6.4 L Albumin 4.2 Urine Color Yellow Urine Appearance Cloudy Urine pH 7.5 Ur Specific [place] 1.010 Urine Protein Negative Urine Glucose (UA) Negative Urine Ketones Negative Urine Blood Negative Urine Nitrite Negative Ur Leukocyte Esterase Small (1+) H Urine RBC 0-2 Urine WBC 0-5 Ur Squamous Epith Cells 6-10 Urine Bacteria 1+ Hyaline Casts 0-2 Urine Opiates Screen Not Detected Ur Buprenorphine Scrn Not Detected Ur Oxycodone Screen Not Detected Urine Methadone Screen Not Detected Urine Fentanyl Screen Not Detected Ur Barbiturates Screen Not Detected Ur Phencyclidine Scrn Not Detected Ur Amphetamines Screen Not Detected U Benzodiazepines Scrn POSITIVE H Urine Cocaine Screen Not Detected U Marijuana (THC) Screen Not Detected Ethyl Alcohol < 10 Imaging Radiology Impressions: Normal sinus rhythm Normal ECG When compared with ECG of 20-Oct-2025 15:06, No significant change was found Meds/Allergies Meds Home Medications Medication Instructions Recorded Confirmed Type famotidine 40 mg tablet 40 mg PO DAILY 11/03/24 11/03/25 History amlodipine 5 mg tablet 5 mg PO DAILY 10/21/25 11/03/25 History diazepam 5 mg tablet 2.5 - 5 mg PO DAILY PRN anxiety 10/21/25 11/03/25 History diazepam 5 mg tablet 5 mg PO BEDTIME 10/21/25 11/03/25 History quetiapine 25 mg tablet 25 mg PO DAILY PRN Anxiety 10/21/25 11/03/25 History armodafinil 150 mg tablet 75 mg PO QAM 11/03/25 11/03/25 History bupropion HCl 150 mg tablet,12 hr 150 mg PO DAILY 11/03/25 11/03/25 History sustained-release quetiapine 100 mg tablet 100 mg PO BEDTIME 11/03/25 11/03/25 History Allergies Allergies Allergy/AdvReac Type Severity Reaction Status Date / Time No Known Allergies Allergy Verified 11/03/25 11:58 Mental Status Exam Mental Status Exam Narrative: Patient is A&O x3, wearing casual attire, very anxious but cooperative, depressed, anxious somewhat with underlying irritability, appeared to be forgetful. Trouble with memory. ? congnitive decline. Thought processes is disorganized. Speech is within normal limit, soft spoken. Fair eye contact, congruent with mood. Constricted affect. Thought content is ambivalence regarding a treatment, no SI/SIB /HI/AVH, no CAH. Does not appeared to be paranoid, delusions. Fair eye contact. Poor judgment and insight. Assessment & Plan Assessment & Plan (1) Major depressive disorder, recurrent severe without psychotic features: Status: Acute Code(s): F33.2 - Major depressive disorder, recurrent severe without psychotic features (2) ZAC (generalized anxiety disorder): Status: Acute Code(s): F41.1 - Generalized anxiety disorder (3) Hypertension: Status: Chronic Code(s): I10 - Essential (primary) hypertension Plan HPI: patient is a 75 year old white retired female with history of HTN, MDD, anxiety disorders who is, known to [facility], walked to the ED from OP ECT due to patient's ECT/ OP provider. Per , she is reported to be struggling with psychotic depression. Patient?s also indicates that she has struggled with seemingly chronic mucus in her throat since beginning ECT. Referred to CARE team for LOC/ risk assessment. Patient herself is minimally engaged, a petite woman, primarily beneath the sheets of her bed, just her hair visible The precipitant is unclear, seems on the one hand seems to attribute it to the ECT, and moments later hs says ? sometimes she is great, she?s very high functioning.? On admission, patient fully engaged in conversation, cooperative. However, appeared to be with severe depression anxiety, not able to focus, poor memory, appeared to be confused. She can not recall she was here about 2 weeks ago. Continue talking about something stuck into her throat but denies pain. Formulation/clinical reasoning: Increase in depression, severe anxiety, declines in functioning and memory. Some medication changed lately may affect her mood/mental health. Patient will be benefit in restrictive environment for own safety, monitor for mental status changes, medication management, and continue to ECT/outpatient psychiatric services once stable. Hospital course: 11/03/25: Patient received ECT as an outpatient this morning. Dr. Shearer is her outpatient provider. Per record: medication titration down: Wellbutrin down from 300 to 150mg. Will receive 150mg x1 on 11/04/25. Then discontinue. Armodafinil was discontinued Increased Seroquel from 75mg at HS to 100mg. Ugwdlmch10th BID at 0830 and 1430. Norvasc 5 mg daily for hypertension. Monitor for blood pressure which was elevated on admission. Diazepam 5 mg at bedtime, and 2.5-5 mg daily p.r.n. Plan Patient on 15 minute checks for safety. Admitted to [facility]. CV. Work with treatment team to do collateral. Diagnostic and discharge planning. U tox positive for benzo which patient is prescribed. Patient educated on: diagnosis, medication risk/benefits and therapeutic strategies Informed Consent: understands and further education needed Reason for continued inpatient stay Substantial Risk for: med/psych decompensation Statement Statement: I have reviewed the history and physical and performed a pertinent examination on my patient. No changes have occurred unless specified. If the History and Physical was not performed prior to admission, the Hospitalist's service will be consulted for completing the admission physical. Time Spent With Patient Time: Total time managing care of this patient today ____ minutes. 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 Discharge Plan Discharge Anticipated Discharge Date/Time: 11/08/25 10:29 Patient Disposition: Home, Self-Care Discharge Diagnosis: bipolar 2 generalized anxiety ADD Referrals: Dr. Shearer [Other] - 11/14/25 2:00 pm Referral Note: In person appointment [facility] [Provider Group] - 1 Week Referral Note: 11-07-25 [facility] was added to patients chart. Please call [phone] to schedule a follow up appt within 7-10 days of discharge. No release or PCP on file. Discharge Medications: New quetiapine 25 mg Tablet 25 mg PO BID@0830,1430 30 Days Qty: 60 1RF quetiapine 150 mg tablet 150 mg PO BEDTIME 30 Days Qty: 30 1RF bupropion HCl 150 mg Tablet Extended Release 24 Hr 150 mg PO DAILY 30 Days Qty: 30 1RF lithium carbonate 300 mg capsule 300 mg PO BEDTIME Qty: 30 1RF Continued amlodipine 5 mg tablet 5 mg PO DAILY diazepam 5 mg tablet 5 mg PO BEDTIME diazepam 5 mg tablet 2.5 - 5 mg PO DAILY PRN (Reason: anxiety) Rx Instructions: 1 bedtime 1/2 -1 daily prn severe anxiety famotidine 40 mg tablet 40 mg PO DAILY Discontinued quetiapine 25 mg tablet 25 mg PO DAILY PRN (Reason: Anxiety) bupropion HCl 150 mg tablet sustained-release 12 hr 150 mg PO DAILY armodafinil 150 mg tablet 75 mg PO QAM quetiapine 100 mg tablet 100 mg PO BEDTIME Discharge Orders: Discharge Order (Routine); Ordered 11/08/25 Ordered By: Yovany Shearer Diet: Advance to usual diet Activity on Discharge: As tolerated Stand Alone Forms: Patient Portal Discharge page, Community Support Print Language: Northern Irish Care Plan Goals: Stabilize mood decrease somatic preoccupation no si Health Concerns: hypertension Plan of Treatment: seroquel 150 mg hs seroquel 25 mg 2 x day wellbutrin xl 150 mg daily monitor for agitation ect ? in 1 wk if needed start lith 300 mg bedtime can take flonase nasal wash otc start lithium 300 mg bedtime Assessment: future oriented less preoccupied no si Discharge Date/Time: 11/08/25 10:38
== END 2025-11-08 10:38 | disposition home or self-care (01) | DRG 885 ==
LOC: HO.ED 12:01 → HO.PADLT16 15:39
PROVIDERS: Psychiatry & Neurology Psychiatry; Admitting Provider Psychiatry & Neurology Psychiatry; Emergency Provider Emergency Medicine; Visit Provider Psychiatry & Neurology Psychiatry
PROC: GZB4ZZZ Other Electroconvulsive Therapy (ICD-10-PCS; CPT 90870; principal; 2025-11-06 08:30)
DX: F31.81 Bipolar II disorder (principal); F41.1 Generalized anxiety disorder; E03.9 Hypothyroidism, unspecified; I10 Essential (primary) hypertension; F90.9 Attention-deficit hyperactivity disorder, unspecified type; Z79.890 Hormone replacement therapy; Z79.899 Other long term (current) drug therapy
CPT/HCPCS: 36415; 80053; 80307; 81001; 85025; 87086; 90870; 93005; 99285; J0330; J2250; J2405; S9485

== ENCOUNTER → 2025-11-03 12:37 | Outpatient (BNV) | payer MEDICARE, SELFPAY | PROVIDERS: Admitting Provider Psychiatry & Neurology Psychiatry; Emergency Provider Emergency Medicine; Visit Provider Internal Medicine Cardiovascular Disease | DX: Z13.6 Encounter for screening for cardiovascular disorders (principal) | CPT/HCPCS: 93010 ==

== ENCOUNTER → 2025-11-03 15:30 | Outpatient (BNV) | payer MEDICARE, SELFPAY | PROVIDERS: Admitting Provider Psychiatry & Neurology Psychiatry; Emergency Provider Emergency Medicine; Visit Provider Nurse Practitioner Family | DX: I10 Essential (primary) hypertension (principal) | CPT/HCPCS: 99221 ==

== ENCOUNTER → 2025-11-03 15:30 | Outpatient (BNV) | payer MEDICARE, SELFPAY | PROVIDERS: Admitting Provider Psychiatry & Neurology Psychiatry; Emergency Provider Emergency Medicine; Visit Provider Registered Nurse | DX: F33.2 Major depressive disorder, recurrent severe without psychotic features (principal); F41.1 Generalized anxiety disorder; I10 Essential (primary) hypertension | CPT/HCPCS: 90792; 99231; 99232 ==

== ENCOUNTER → 2025-11-03 15:30 | Outpatient (BNV) | payer MEDICARE, SELFPAY | PROVIDERS: Admitting Provider Psychiatry & Neurology Psychiatry; Emergency Provider Emergency Medicine; Visit Provider Psychiatry & Neurology Psychiatry | DX: F33.2 Major depressive disorder, recurrent severe without psychotic features (principal); F41.1 Generalized anxiety disorder; F90.9 Attention-deficit hyperactivity disorder, unspecified type; I10 Essential (primary) hypertension | CPT/HCPCS: 90870; 99232; 99239 ==

== ENCOUNTER 2025-11-15 11:39 | Outpatient (AMB) | payer MEDICARE, SELFPAY ==
--- OUTSIDE RECORDS SUMMARY | 2025-07-03 09:20 | XMS_ITS ---
Author Organization [facility] Address [address] [address] Care Team Providers Care Asw/Asuw Tactical Air Controller Name Role Phone YASMANY ARCE M.D. Primary Care Provider Valorie Campos Unavailable [phone] REASON FOR VISIT HR MEDICARE PE (YELLOW FORM DONE) Encounters Encounter Location Date Provider Diagnosis [facility] [address] [address] 07/03/2025 Valorie Luu Plan Of Treatment Next Appt Details Provider Name:Valorie chahalbertram, 12/18/2025 01:20:00 PM, [address] [place] [address], [address], [place], [address], Progress Notes * DENTON DENNISONHDOB:[birth year] (75 yo F)Acc No.[id number]:07/03/2025 PROGRESS NOTES Patient: TEDDY FAIR Appointment Provider: Bertram Luu M.D. :1950 A ge:74 Y S ex:Female Date:07/03/2025 Address:[address] [place] [address], [facility] Pcp:YASMANY ARCE M.D. Subjective: * Chief Complaints: * 1 . HR MEDICARE PE (YELLOW FORM DONE). * Medical History: Objective: * Vitals: Assessment: Plan: * Treatment: * Images: Billing Information: * Visit Code: * Procedure Codes: * Electronic signature of Joyce Luu MD on 11/15/2025 at 01:20 PM EST Sign off status: Pending * Appointment Provider: Bertram Luu M.D. Date: 0 07/03/2025 Generated for Uri rogers/Charis/Yasmine on: 1 01:20 PM EST
--- NOTE | 2025-11-15 12:10 | A.OFFPSYCH_ITS ---
Intake Intake Visit Reasons: depression Allergies No Known Allergies Allergy (Verified 11/03/25 11:58) Medication List - Last Reconciled 11/15/25 by Yovany Shearer MD amlodipine 5 mg PO DAILY bupropion HCl XL 150 mg PO DAILY 30 days diazepam 2.5 - 5 mg PO DAILY PRN diazepam 5 mg PO BEDTIME famotidine 40 mg PO DAILY lithium carbonate 300 mg PO BEDTIME quetiapine 25 mg PO BID@0830,1430 30 days quetiapine 150 mg PO BEDTIME 30 days HPI- Psychiatric Chief Complaint: depression HPI Narrative: 11/15/25, 11:11 AM (15m) The patient verbally consented to this video encounter. This video encounter was conducted via secure, interactive video conferencing. The patient's identity was established before proceeding with the video encounter by confirmation of their name and an additional identifier. Reason for Visit: Post-ECT cognitive concerns and medication management. Subjective: A patient with a history of severe depression expressed concerns about post- electroconvulsive therapy (ECT) cognitive effects, notably confusion and difficulty with word retrieval and routine recall. These symptoms began after a recent ECT session and caused significant distress, particularly when trying to manage medications with a nurse. The patient reported feeling clearer today compared to previous days but remains anxious about these cognitive lapses. Additionally, the patient mentioned feeling overwhelmed after the holidays, which may have contributed to the current state. The patient's current medications include low-dose lithium and Seroquel (25 mg in the morning and afternoon, 150 mg at bedtime). The patient occasionally uses a lightbox and has used cannabis to manage anxiety. Socially, the patient's holiday routine was disrupted by visiting family, leading to household disarray. There was no report of feeling overmedicated. Objective: Awake and alert. Not in acute respiratory distress. No new labs or diagnostic tests were discussed during this visit. Past Psychiatric History: -Pt sees Dr. Shearer in OP setting . Last ECT 11/03/2025. Last inpatient episode 2022 and 10/20/25 as per records. Reports 1st psychiatric admission in her 40s approximately. First ECT sessions approximately 10 years ago. Also has a therapist via telehealth. Denies any history of suicide attempts or psychosis. Mental Status Exam Mental Status Exam Narrative: Patient is seen with her . Mood somewhat depressed and irritable that she was not fully herself during the holidays. Mood less depressed more stable future oriented no psychotic symptoms impulse control intact Assessment and Plan Assessment & Plan (1) Major depressive disorder, recurrent, severe with psychotic features: Status: Acute Code(s): F33.3 - Major depressive disorder, recurrent, severe with psychotic symptoms (2) ADHD (attention deficit hyperactivity disorder): Status: Acute Code(s): F90.9 - Attention-deficit hyperactivity disorder, unspecified type Plan Assessment: The patient is experiencing temporary cognitive difficulties following recent ECT sessions, likely due to post-ECT confusion. These symptoms are expected to resolve soon. The patient's ongoing treatment for severe depression includes lithium and Seroquel, which appear to be stabilizing mood cycling. The disruption in routine from the holidays may have exacerbated the patient's anxiety and disorientation. No evidence of tardive dyskinesia. Bipolar 2 versus recurrent depression and ADHD Plan: 1. Continue current medication regimen of Seroquel and lithium. 2. Schedule lithium level labs for the morning, 10-12 hours post-dose, to ensure accuracy. 3. Encourage the patient to use stress tolerance techniques and avoid dwelling on negative thoughts. 4. Recommend increasing lightbox usage as needed. 5. Plan a follow-up telehealth visit in 2-3 weeks or sooner if necessary. 6. Discussed the importance of routine re-establishment and the potential benefits of neuroprotection from lithium. 7. Patient and spouse should continue to monitor cognitive symptoms and contact the office if concerns persist. Actions Video encounter Orders: Orders Complete Blood Count Auto Diff 11/15/25 I10 - Essential (primary) hypertension, E03.9 - Hypothyroidism, unspecified, E83.52 - Hypercalcemia, F33.3 - Major depressive disorder, recurrent, severe with psychotic symptoms TSH reflex Free T4 11/15/25 I10 - Essential (primary) hypertension, E03.9 - Hypothyroidism, unspecified, E83.52 - Hypercalcemia, F33.3 - Major depressive disorder, recurrent, severe with psychotic symptoms Vitamin D 25-OH (D2 and D3) 11/15/25 I10 - Essential (primary) hypertension, E03.9 - Hypothyroidism, unspecified, E83.52 - Hypercalcemia, F33.3 - Major depressive disorder, recurrent, severe with psychotic symptoms Comprehensive Met. Panel 11/15/25 I10 - Essential (primary) hypertension, E03.9 - Hypothyroidism, unspecified, E83.52 - Hypercalcemia, F33.3 - Major depressive disorder, recurrent, severe with psychotic symptoms [place] 11/15/25 I10 - Essential (primary) hypertension, E03.9 - Hypothyroidism, unspecified, E83.52 - Hypercalcemia, F33.3 - Major depressive disorder, recurrent, severe with psychotic symptoms Counseling and coordination of Care Details: I spent [] minutes reviewing the record, seeing the patient and documenting in the medical record. Counseling provided to the patient/caregiver as outlined below. Addressed patient/caregiver concerns regarding current medication regime including effective adherence. Addressed patient/caregiver concerns regarding diagnosis and prognosis including accuracy of diagnosis, prognosis over time, impact of diagnosis. Addressed patient/caregiver concerns regarding impact of recent stressors. [facility] Medical History Depression Hypothyroidism ZAC (generalized anxiety disorder) Hypertension ADHD (attention deficit hyperactivity disorder) Surgical History H/O thumb surgery H/O cone biopsy of cervix Family History Other No pertinent family history Social History Household Members: Spouse Household Members Other:: And two cats. 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. Both retired. Occasional marijuana use. Substance History: Denies Trauma History: Denies Coding Level of Care Code [facility] Est Pt Level 4 (98224) Diagnoses Major depressive disorder, recurrent, severe with psychotic features F33.3 ADHD (attention deficit hyperactivity disorder) F90.9
--- OUTSIDE RECORDS SUMMARY | 2025-11-15 13:21 | XMS_ITS | Clinical Summary ---
Author Organization [facility] Address [address] [place] [address] Care Team Providers Care Photographic Artist Name Role Phone Pcp, No Primary Care [...] Not on file Insurance MEDICARE PART A&B [facility] MCR SUPPLEMENT Care Teams Photographic Artist Relationship Specialty [place] [id number] PCP - General 07/31/19
--- OUTSIDE RECORDS SUMMARY | 2025-11-15 13:21 | XMS_ITS | Patient Health Record ---
Author Organization [facility] Address [address] [address] Care Team Providers Care Production Support Specialist Name Role Phone YASMANY ARCE M.D. Primary Care Provider Valorie Campos Unavailable [phone] Allergies Allergen (clinical drug ingredient) Drug/Non Drug [...] Active Multivitamins 1 ORAL daily; Duration: -3 [facility] 01/20/2012 Active amLODIPine Besylate 5MG 1 ORAL daily; Duration: -3 [facility] NORVASC 06/28/2012 Active Losartan Potassium 50 MG Oral; Duration: 90 Days Active Vitamin E 400 UNIT 1 capsule Orally Once a day; Duration: 30 day(s) Active Calcium-D 600MG 1 ORAL daily; Duration: -3 [facility] 01/20/2012 Active Armodafinil 150 MG TAKE ONE TABLET BY MOUTH EVERY MORNING Oral; Duration: 30 Days Active Vitamin C 500MG 2 grams ORAL daily [facility] 04/24/2014 Active diazePAM 5 MG Oral; [...] I disorder, most recent episode depressed (disorder) (58763988) Bipolar I disorder, most recent episode (or current) depressed, unspecified (296.50) Active confirmed Problem Carcinoma in situ of cervix uteri (65942636) 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 confirmed Problem Essential hypertension (34286323) Unspecified essential hypertension (401.9) Active confirmed Problem Menopausal symptom (82223559) Symptomatic menopausal or female climacteric states (627.2) Active confirmed Problem Disorder of bone and articular cartilage (disorder) (760187942) Disorder of bone and cartilage, unspecified (733.90) Active confirmed Problem Postmenopausal atrophic vaginitis (01452957) Postmenopausal atrophic vaginitis (N95.2) Active confirmed Problem Age-related osteoporosis (574473632) Age-related osteoporosis without current pathological fracture (M81.0) Active confirmed Problem History of dysplasia of cervix (522501971) Personal history of cervical dysplasia (Z87.410) Active confirmed Problem General examination of patient (537896297) Routine general medical examination at health care facility (V70.0) Active confirmed Diag Problem Gynecological examination normal (078675294722194) Routine gynecological examination (V72.31) Active confirmed Problem Screening for malignant neoplasm of colon (103799717) Special screening for malignant neoplasms, colon (V76.51) [...] Provider Name:Valorie montesinos, 12/18/2025 01:20:00 PM, [address], [address], [place], [address], Insurance Providers Payer Name Payer Address Payer Phone Subscriber Number Group Number Insured Name Patient Relationship to Insured Coverage Start Date Coverage End Date MEDICARE [address] MARY KANG [id number] TEDDY DENNISON Self - patient is the insured MEDEX [address] [place] [address] [phone] [id number] TEDDY DENNISON Self - patient is [...]
--- OUTSIDE RECORDS SUMMARY | 2025-11-15 13:21 | XMS_ITS | Patient Health Record ---
Author Organization [facility] Address [address] [place] [address] Care Team Providers Care Network Architect Name Role Phone ERASTO Fuller Primary Care Provider [phone] Reason For Referral No Information Medications Medication SIG (Take, Route, Frequency, Duration) Notes Start Date End Date Status Lisinopril 2.5 MG Tablet 1 tab(s) orally once a day; Duration: 30 Active traZODone HCl 50 MG Tablet 1/4 tab(s) orally once a day (at bedtime) Active Calcium 600+D 600-200 MG-UNIT Tablet 2 caps orally once a day at night Active Vitamin C 1000 MG Tablet 2 tabs orally once a day Active Aspirin 81 MG Tablet Delayed Release 1 tab(s) orally once a day Active Multivitamin 1 TAB ONCE DAILY NAME ONLY Conversion from Multum Review and pick correct strength-formulat ion from Etopusan options. If intended option is not shown, discontinue and re-order from Quick Search. Active amLODIPine Besylate 5 MG Tablet TAKE 1 TABLET BY MOUTH EVERY DAY orally once a day; Duration: 90 days Active Vitamin E 400 IU 1 TAB ONCE DAILY NAME ONLY Conversion from Multum Review and pick correct strength-formulat ion from Etopusan options. If intended option is not shown, discontinue and re-order from Quick Search. Active Calcium 1200 MG DAILY IN EVENING NAME ONLY Conversion from Multum Review and pick correct strength-formulat ion from Etopusan options. If intended option is not shown, discontinue and re-order from Quick Search. Active Vagifem 10 MCG Tablet intravaginally 2 times a week yuvafem Active Ciclopirox Olamine 0.77 % Cream 1 jackie applied topically 2 times a day; Duration: 14 day(s) 06/28/2020 Active Methylphenidate HCl 10 MG Tablet 1 tab(s) orally 3 times a day Active [place] Carbonate 300 MG Capsule 1 cap(s) orally once daily Active Wellbutrin SR 150 MG Tablet Extended Release 12 Hour 1 tab(s) orally daily Active PROzac 40 MG Capsule 1 cap(s) orally onc e a day Active Immunizations Vaccine Route Administration Date Status Comme nts Influenza IM Intramuscular 07/27/2015 Administered Influenza, Fluzone HD 65+ Unknown 08/16/2018 Administer ed Influenza, Fluzone Quad.5 ml, IM Intramuscular 11/27/2016 Administered Pneumococcal Prevnar 13 IM Intramuscular 11/27/2016 Admini stered Pneumococcal, PPV 23 IM Intramuscular 12/22/2019 Administe red SHINGRIX HZV VACCINE Unknown 09/20/2013 Administered Td (adult) Unknown 08/07/2006 Administered Tdap (Adacel) IM Intramuscular 11/30/2017 Administered Zostavax (Shingles) Unknown 09/20/2013 Administered Social History Tobacco Use: Social History Observation Description Date Details (start date - stop date) Former Smoker NA - NA Social History Tobacco Use: Social Info Question Answer Notes Smoking Are you a: former smoker When did you start Smoking ? 24 years old When did you stop Smoking ? 10/2017 How long has it been since you last smoked? 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 asbestos exposure: no Past year's travels: None alcohol use: no drug use: yes uses Marijuana o ccasionally for sexual use---to control mood Hobbies/Exercise habits: gardeni ng, yoga, reading, walking Coffee/Tea/Soda: yes Coffee 2 daily, Tea occasionally, Soda occasionally Marital Status experience no Living with Pets 2 cats smokers in household no Section Notes: States she smoked 1/2 ppd x 25 years States she smoked 1/2 ppd x 25 years States she smoked 1/2 ppd x 25 years Problems Problem Type SNOMED Code ICD Code Onset Dates Problem Status W/U Status Risk Notes Problem Bipolar disorder (14803373) BIPOLAR DISORDER NEC (296.89) Active confirmed Problem Essential hypertension (22115464) Hypertension essential (401.1) Active confirmed Problem Essential hypertension (11347467) Essential hypertension (I10) Active confirmed Problem Essential hypertension (24519912) Essential (primary) hypertension (I10) Active confirmed Problem Hypertriglyceridemia (841152242) Hypertriglyceridemia (E78.1) Active confirmed Problem Non-toxic multinodular goiter (38978092) Nontoxic multinodular goiter (E04.2) Active confirmed Problem Bipolar II disorder (99438756) Bipolar II disorder (F31.81) Active confirmed Problem Chronic pansinusitis (35093534) Chronic pansinusitis (J32.4) Active confirmed Problem Osteoarthrosis (842567254) Osteoarthrosis (M19.90) Active confirmed Problem Osteopenia (573603361) Osteopenia, unspecified location (M85.80) Active confirmed Problem Chronic pharyngitis (594713) Pharyngitis, chronic (J31.2) Active confirmed Plan Of Treatment Pending Test Test Name Order Date US : THYROID/SOFT TISSUE HEAD/NECK 07/04 Future Test Test Name Order Date LIPID PROFILE 12/14/2020 GLYCOHEMOGLOBIN (HBA1C) 12/14/2020 COMP. METABOLIC 12/14/2020 25 [place] Vitamin D 12/14/2020 TSH WITH REFLEX TO FT4 12/14/2020 Insurance Providers Payer Name Payer Address Payer Phone Subscriber Number Group Number Insured Name Patient Relationship to Insured Coverage Start Date Coverage End Date MEDICARE [employer] [address] [place] [address] [phone] [id number] TEDDY DENNISON Self - patient is the insured 8 [employer] [address] [place] [address] [phone] [id number] TEDDY DENNISON Self - patient is the insured 8 Medical (General) History Medical History History ICD Code Hx of tobacco abuse (quit 2008) Bipolar Type II, adult ADD, dysthymia (J affey) hypertension--ambulatory BP 12/27 Multinodular Goiter Colonoscopy 05/26/11: WNL--repeat 10 year ([place]) Osteoarthritis Hx of cone bx w/ positive HPV in past (p er former PCP records) Osteopenia 3/3 sites 02/25 w/ worst T sco re -2.3 Surgical History Surgery Date(Month/Year) Left thumb 07/27/2018 Right Thumb 10/02 L mid and lower benign thyroid bx 07/2014 cone biopsy 1999 Hospitalization History Reason Date(Month/Year) Inpatient x 4/Partial Inpatient x 1 for depression as of 11/2012
--- OUTSIDE RECORDS SUMMARY | 2025-11-15 13:21 | XMS_ITS | Clinical Summary ---
Author Organization [facility] [address] [facility] Address [address] [place] [address] Phone Care Team Providers Care Home Health Travel Ot Name Role Phone Tami Francis MD Primary [...] Health Maintenance Due Date Last Done Comments Drug Screen 1950 Non-Opioid Controlled Substance Agreement 1950 Zoster Vaccines (1 of 2) 1999 Cholesterol [...] - Td or Tdap) 11/30/2027 11/30/2017 Pneumococcal Vaccine: 50+ Years Completed 12/22/2019, 11/27/2016 RSV Immunization Adult Patients Completed 03/10/2024 Colorectal Cancer Screening: Colonoscopy Discontinued 06/20/2025 HIB Vaccines Aged Out No longer eligi [...] Maintenance Results * COLONOSCOPY Anesthesia - MAC; [facility] ENDOSCOPY (06/20/2025 3:30 PM EDT) Anatomical [...] segment. Narrative 06/20/2025 3:31 PM EDT [facility] GI Patient Name: Miriam Dennison Procedure Date: 06/20/2025 3:10 PM Date of : 1950 Age: 74 Gender: Female Note Status: Finalized Attending MD: Ron Adam DO, [id number] Procedure Date No Time: 06/20/2025 Procedure: Colonoscopy Indications: Diverticulitis Providers: Ron Adam DO Referring MD: aTmi Francis MD Medicines: Monitored Anesthesia Care Complications: [...] the physician, the nurse, the anesthesiologist, the gamemaster and the claims technician in the pre-procedure area in the [...] retroflexion views. Procedure Code(s): --- Professional --- 07226, Colonoscopy, flexible; with removal of tumor(s), polyp(s), or other lesion(s) by snare technique Diagnosis Code(s): --- Professional --- K64.9, Unspecified hemorrhoids D12.5, Benign neoplasm of sigmoid colon D12.4, Benign neoplasm of descending colon K57.30, Diverticulosis of large intestine without perforation or abscess without bleeding CPT copyright 202 [employer]. All rights reserved. The codes documented in this report are preliminary and upon store associate review may be revised to meet current compliance requirements. RON Adam DO 06/20/2025 3:31:11 PM This report has been signed electronically.Ron Adam DO Number of Addenda: 0 Note Initiated On: 06/20/2025 3:10 PM Scope Withdrawal Time: 0 hours 8 minutes 20 seconds Scope In: 3:17:07 PM Scope Out: 3:29:30 PM Endoscopy Department at [facility] - [address] [place] [id number] Procedure Note Ron dAam DO - 06/20/2025 [facility] GI Patient Name: Miriam Dennison Procedure Date: 06/20/2025 3:10 PM Date of : 1950 Age: 74 Gender: Female Note Status: Finalized Attending MD: Ron Adam DO, [id number] Procedure Date No Time: 06/20/2025 Procedure: Colonoscopy [...] the physician, the nurse, the anesthesiologist, the gamemaster and thetechnician in the pre-procedure area in [...] retroflexion views. Procedure Code(s): --- Professional --- 04321, Colonoscopy, flexible; with removal of tumor(s), polyp(s), or other lesion(s) by snare technique Diagnosis Code(s): --- Professional --- K64.9, Unspecified hemorrhoids D12.5, Benign neoplasm of sigmoid colon D12.4, Benign neoplasm of descending colon K57.30, Diverticulosis of large intestine without perforation or abscess without bleeding CPT copyright 2020 [employer]. All rights reserved. The codes documented in this report are preliminary and upon store associate reviewmay be revised to meet current compliance requirements. RON Adam DO 06/20/2025 3:31:11 PM This report has been signed electronically.Ron Adam DO Number of Addenda: 0 Note Initiated On: 06/20/2025 3:10 PM Scope Withdrawal Time: 0 hours 8 minutes 20 seconds Scope In: 3:17:07 PM Scope Out: 3:29:30 PM Endoscopy Department at [facility] - [address] [place] [id number] IMPRESSION: - Hemorrhoids found on perianal exam. [...] Recently Relevant to Health Maintenance Insurance MEDICARE [facility] Care Teams Home Health Travel Ot Relationship Specialty Start Date End Date Tami Francis MD [address] [facility] [address] [place] [address] PCP - General Internal Medicine 03/07/25
--- OUTSIDE RECORDS SUMMARY | 2025-11-15 13:21 | XMS_ITS | Clinical Summary ---
Author Organization [facility] Address [address] [place] [address] Care Team Providers Care Irradiated Fuel Handler Name Role Phone Tami Francis MD Primary Care Provider [phone] Allergies Active Allergy Reactions Criticality Noted Date [...] capsule by mouth daily. Active nystatin (MYCOSTATIN) 231979 UNIT/ML suspensionIndicat ions:Throat discomfort Take 5 mL [...] topic Insurance MEDICARE PART A & B [facility] MEDICARE PART A & B [facility] Advance Directives * Full Code (Latest Code Status on File) Date Activated Date Inactivated Comments 01/23/2023 6:34 PM Care Teams Irradiated Fuel Handler Relationship Specialty Start Date End Date Tami Francis MD [address] [place] [address] PCP - General Internal Medicine 01/23/23
--- OUTSIDE RECORDS SUMMARY | 2025-11-15 13:21 | XMS_ITS | Clinical Summary ---
Author Organization [facility] Address [address] [place] [id number] Care Team Providers Care Sheet Rock Applier Name Role Phone Tami Francis MD Primary Care Provider [phone] Allergies No known active allergies Medications amLODIPine [...] Health Maintenance Due Date Last Done Comments Pneumococcal Vaccine: 50+ Ye ars (1 of 2 - PCV) 1968 Influenza Vaccine (#1) 2025 Hepatitis B Vaccine Aged Out No longe r eligible based on patient's age to complete this topic Insurance [facility] Medicare [facility] Medicare Care Teams Sheet Rock Applier Relationship Specialty Start Date End Date Tami Francis MD [address] [place] [address] PCP - General Internal Medicine 06/13/21
== END 2025-11-15 11:51 | disposition home or self-care (01) ==
LOC: HO.HOP 11:39
PROVIDERS: Visit Provider Psychiatry & Neurology Psychiatry
DX: F33.3 Major depressive disorder, recurrent, severe with psychotic symptoms (principal); F90.9 Attention-deficit hyperactivity disorder, unspecified type
CPT/HCPCS: 99214

== ENCOUNTER → 2025-11-15 11:39 | Outpatient (BNVA) | payer MEDICARE, SELFPAY | PROVIDERS: Visit Provider Psychiatry & Neurology Psychiatry | DX: F33.3 Major depressive disorder, recurrent, severe with psychotic symptoms (principal); F90.9 Attention-deficit hyperactivity disorder, unspecified type | CPT/HCPCS: 99212 ==